=== PATIENT | female | born 1990 | race Caucasian/White ===

== ENCOUNTER 2018-07-13 14:02 | Outpatient (CLI) | payer MEDICAID, SELFPAY ==
[2018-07-13 15:44] LABS: Iron 66 ug/dL (50-175)
[2018-07-13 15:55] LABS: ALT 20 U/L (12-78); AST 21 U/L (15-37); Albumin 3.8 g/dL (3.4-5.0); Alkaline Phosphatase 79 U/L (46-116); Anion Gap 8.9 mmol/L (3-11); BUN 11 mg/dL (7-18); Bilirubin, Total 0.3 mg/dL (0.2-1.0); CO2 26.1 mmol/L (21.0-32.0); CREATININE 0.87 mg/dL (0.55-1.02); Calcium 8.8 mg/dL (8.5-10.1); Chloride 103 mmol/L (98-107); Ferritin 62 ng/mL (8-388); Glucose 86 mg/dL (70-100); Potassium 4.8 mmol/L (3.5-5.1); Sodium 138 mmol/L (136-145); TSH 2.48 uIU/mL (0.358-3.74); Total Protein 7.5 g/dL (6.4-8.2)
== END 2018-07-13 14:22 ==
PROVIDERS: PCP Family Medicine; Visit Provider Nurse Practitioner Family
DX: R53.83 Other fatigue (principal); I38 Endocarditis, valve unspecified; Z86.19 Personal history of other infectious and parasitic diseases
CPT/HCPCS: 36415; 80053; 86709; 87340; 87389; 82728; 83540; 84443; 85025; 86431; 86592; 87522

== ENCOUNTER 2018-10-23 01:58 | Emergency (ER) | payer MEDICAID, SELFPAY ==
--- NOTE | 2018-10-23 02:08 | DI.CT_ITS ---
SYMPTOM/DIAGNOSIS: VOMITING, GENERALIZED ABD PAIN ABDOMEN AND PELVIC CT: CT scan of the abdomen and pelvis was performed following the uneventful administration of intravenous contrast material. Findings: There is patient motion artifact which does degrade image quality. The visualized lung bases show no acute abnormality. The liver is normal in size. No suspicious hepatic mass is seen. The portal, superior mesenteric and splenic veins are patent. The gallbladder is negative by CT criteria. There is no biliary ductal dilatation. The pancreas, spleen and adrenal glands are unremarkable. The kidneys show normal and symmetric enhancement. Note is made of a small cyst on the left kidney. No obstruction is seen. The urinary bladder is intact. The reproductive organs are grossly unremarkable. The bowel shows no evidence of obstruction or inflammation. No findings to suggest an acute appendicitis are present. The aorta is of normal caliber. Incidental note is made of a retro-aortic left renal vein. No significant abdominal or pelvic adenopathy, ascites or pneumoperitoneum is seen. Note is made of a small fat containing umbilical hernia. The bones show normal alignment. IMPRESSION: No evidence of an acute abdomen.
--- NOTE | 2018-10-23 02:11 | W.ED.GENAD ---
Discharge Plan Disposition Patient Disposition: HOME Condition: Good Discharge Details Chief Complaint: Abd Prob Clinical Impression: Gastroenteritis, Nausea & vomiting, Abdominal pain Reason For Visit: ANA Primary Care Provider: Tegan Carballo ED Provider: Arie Verduzco Home Meds and New Rx's Prescriptions: New ondansetron HCl [Zofran] 4 mg tablet 4 mg PO TID PRN (Reason: nausea and vomiting) 5 Days Qty: 10 RF: 0 No Action polyethylene glycol 3350 17 GM powder in packet 17 gm PO DAILY PRN PRN (Reason: Constipation) RF: 0 methadone 10 MG/ML concentrate 95 mg PO DAILY RF: 0 acetaminophen [Tylenol] 325 MG tablet 650 mg PO Q6H PRNQty: 100 RF: 0 ascorbic acid (vitamin C) [Vitamin C] 500 MG tablet 500 mg PO BID Qty: 60 RF: 0 tramadol 50 MG tablet 50 mg PO Q8H PRN PRNQty: 60 RF: 0 ibuprofen 400 MG tablet 400 mg PO Q6H PRN PRNQty: 90 RF: 0 gabapentin 300 MG capsule 300 mg PO Q8H Qty: 90 RF: 0 vgvzdsus-nsp-syht fum-folic ac 1 EACH tablet 1 ea PO DAILY Qty: 30 RF: 5 penicillin V potassium 500 MG tablet 500 mg PO Q6H Qty: 120 RF: 3 Lactobacillus acidophilus 1 EACH capsule 1 ea PO DAILY Qty: 30 RF: 5 Discharge Instructions Instructions: Acute Nausea and Vomiting (ED), Abdominal Pain (ED) Additional Instructions: Please take the Zofran as directed. Please stick with a liquid diet for the next 48 hours. If you notice any worsening of your symptoms, or any new symptoms such as vomiting, diarrhea, fever, chills, shortness of breath, chest pain, numbness, weakness, or fainting , please return immediately to the emergency department for reevaluation. Please follow up with your primary care provider as soon as possible for reassessment and reevaluation. As always, it was a pleasure participating in your medical care today. Referrals: Tegan Carballo MD [Primary Care Provider] - Discharge Data Discharge Date/Time-TO BE ENTERED AT DEPARTURE: 10/23/18 04:27 Medical Decision Making This is a pleasant 28-year-old female with past medical history of IV drug use, methadone use, endocarditis, and subsequent heart valve replacement, who presents today for evaluation of sudden onset nausea, vomiting and generalized abdominal pain started a few hours ago. She denies any hematemesis or diarrhea. She denies any fever. Physical exam demonstrates an obese but relatively unremarkable abdomen with mild tenderness throughout. No focal tenderness. She denies any surgical history of the abdomen. Due to the nature of her complaints, and her repetitive vomiting we will get a CT scan to rule out acute appendicitis or other acute abdominal pathology including obstruction, however differential seems to be highest for gastroenteritis most likely secondary to a viral etiology. We will rehydrate the patient, control her nausea, and reassess. 4:[address] scan has returned and shows no acute process. Abdomen continues to appear nonsurgical with no guarding or rebound. Laboratory workup is returned showing no significant abnormalities, severely elevated white count white count, bandemia. She demonstrates normal electrolytes normal renal function. Urinalysis is negative for any signs of signal infection. CT scan per virtual radiology shows no evidence of appendicitis or other acute abdominal pathology. Patient's vomiting is been notably improved, she has been rehydrated with 2 L normal saline, and at this time is stating just let me go home and sleep, want to go home, I do not want to stay here. With no signs of an acute surgical abdomen, reassuring vital signs, clinical presentation inconsistent with any acute catastrophic abdominal etiology I feel that she can be discharged home the importance of close follow-up. Patient will be given Zofran for home use, and instructed to maintain a liquid diet for the next 48 hours. I have extensively reviewed the treatment plan and discharge instructions with the patient and their family. I have addressed all patient concerns at this time. The patient and family was made aware of what symptoms to monitor for that would warrant a return to the emergency department. Discussed the plan with the patient and family, they demonstrate verbal understanding and agreement with our assessment and plan at this time. EKG 2: 16 Rate 82, [place] 242 first degree AV block, QTC of 455, QRS of 102, nonspecific T wave abnormalities with an inverted T wave in lead III, no significant Q waves except for small Q wave in lead III and aVF. No ST elevations or depressions, no significant changes from prior EKG on 12/06/17. FINDINGS: Lower thorax: No acute findings. ABDOMEN: Liver: Normal. No mass. Gallbladder and bile ducts: Normal. No calcified stones. No ductal dilation. Pancreas: Normal. No ductal dilation. Spleen: Normal. No splenomegaly. Adrenals: Normal. No mass. Kidneys and ureters: Normal. No hydronephrosis. Stomach and bowel: Normal. No obstruction. No mucosal thickening. Appendix: No evidence of appendicitis. PELVIS: Bladder: Unremarkable as visualized. Reproductive: Unremarkable as visualized. ABDOMEN and PELVIS: Intraperitoneal space: Normal. No free air. No significant fluid collection. Bones/joints: No acute fracture. No dislocation. Soft tissues: Fat-containing umbilical hernia. Vasculature: Normal. No abdominal aortic aneurysm. Lymph nodes: Normal. No enlarged lymph nodes. IMPRESSION: No acute finding. Thank you for allowing us to participate in the care of your patient. Dictated and Authenticated by: Gil Strauss MD [facility] General Date/Time Provider Initiated Documentation: 10/23/18 02:08. [facility] Narrative: This is a 28-year-old female with a past medical history of IV drug use, methadone use, infective endocarditis with cardiac valve repair r not on blood thinners, who presents today for evaluation of abdominal pain and vomiting. The patient states that this evening she began to have sudden onset sharp generalized abdominal pain with subsequent vomiting. She states that she has vomited multiple times since then. Vomitus is stomach contents and acid nonbilious, no hematemesis. She denies any diarrhea but does admit to mild constipation. She denies any radiation of her pain to any other locations, she denies any chest pain or shortness of breath. She denies any other sick contacts or eating anything new. Patient denies any previous abdominal surgeries. She has no other complaints or modifying factors at this time. Related Data Home Medications Medication Instructions Recorded Confirmed methadone 95 mg PO DAILY ml 12/07/17 12/30/17 polyethylene glycol 3350 17 gm PO DAILY PRN PRN packet 12/07/17 12/30/17 Lactobacillus acidophilus 1 ea PO DAILY #30 capsule 01/29/18 acetaminophen [Tylenol] 650 mg PO Q6H PRN #100 tab 01/29/18 ascorbic acid (vitamin C) [Vitamin 500 mg PO BID #60 tab 01/29/18 C] gabapentin 300 mg PO Q8H #90 cap 01/29/18 ibuprofen 400 mg PO Q6H PRN PRN #90 tab 01/29/18 wptsgvfa-hus-xnbe fum-folic ac 1 ea PO DAILY #30 tablet 01/29/18 penicillin V potassium 500 mg PO Q6H #120 tablet 01/29/18 tramadol 50 mg PO Q8H PRN PRN #60 tab 01/29/18 ondansetron HCl [Zofran] 4 mg PO TID PRN 5 Days #10 tab 10/23/18 Previous Rx's Medication Instructions Recorded methadone 95 mg PO DAILY ml 12/07/17 polyethylene glycol 3350 17 gm PO DAILY PRN PRN packet 12/07/17 Lactobacillus acidophilus 1 ea PO DAILY #30 capsule 01/29/18 acetaminophen [Tylenol] 650 mg PO Q6H PRN #100 tab 01/29/18 ascorbic acid (vitamin C) [Vitamin 500 mg PO BID #60 tab 01/29/18 C] gabapentin 300 mg PO Q8H #90 cap 01/29/18 ibuprofen 400 mg PO Q6H PRN PRN #90 tab 01/29/18 vmavqmek-zyn-wnnt fum-folic ac 1 ea PO DAILY #30 tablet 01/29/18 penicillin V potassium 500 mg PO Q6H #120 tablet 01/29/18 tramadol 50 mg PO Q8H PRN PRN #60 tab 01/29/18 ondansetron HCl [Zofran] 4 mg PO TID PRN 5 Days #10 tab 10/23/18 Allergies Allergy/AdvReac Type Severity Reaction Status Date / Time No Known Allergies Allergy Unverified 10/23/18 02:58 Review of Systems Review of Systems All systems reviewed & are unremarkable except as noted in HPI and below PFSH Social History Smoking and Tabacco status: Current every day Exam Narrative Exam Narrative: 1.Const: Well-nourished, Well-developed, appearing stated age 2.Eyes: PERRL, no conjunctival injection, and symmetrical lids. 3.ENT: Atraumatic external nose and ears. Dry MM. Neck: Symmetric, trachea midline, No thyromegaly. 4.CVS: +S1/S2, No murmurs or gallops. Peripheral pulses 2+ and equal in all extremities. Brisk capillary refill in all extremities. Well-healing central chest scar secondary to open heart surgery 5.RESP: Unlabored respiratory effort. Clear to auscultation bilaterally. No wheezes rales or rhonchi 6.GI: Soft,Nondistended, No hepatosplenomegaly. No guarding or rebound. Generalized mild abdominal tenderness throughout with no focality. No flank or CVA tenderness. Bowel sounds are present. Obese. 7.MSK: Normocephalic/Atraumatic, Extremities w/o deformity or ttp No cyanosis or clubbing, Normal movement of all extremities 8.Skin: Warm, Dry. No rashes or lesions. 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 Sensation grossly intact, no focal neurologic deficits. 10.Psych: (AAO) x3. Appropriate mood and affect
--- NOTE | 2018-10-23 02:16 | ED.GENADUL_ITS ---
Discharge Plan Disposition Patient Disposition: HOME Condition: Good Discharge Details Chief Complaint: Abd Prob Clinical Impression: Gastroenteritis, Nausea & vomiting, Abdominal pain Reason For Visit: ANA Primary Care Provider: Tegan Carballo ED Provider: Arie Verduzco Home Meds and New Rx's Prescriptions: New ondansetron HCl [Zofran] 4 mg tablet 4 mg PO TID PRN (Reason: nausea and vomiting) 5 Days Qty: 10 RF: 0 No Action polyethylene glycol 3350 17 GM powder in packet 17 gm PO DAILY PRN PRN (Reason: Constipation) RF: 0 methadone 10 MG/ML concentrate 95 mg PO DAILY RF: 0 acetaminophen [Tylenol] 325 MG tablet 650 mg PO Q6H PRNQty: 100 RF: 0 ascorbic acid (vitamin C) [Vitamin C] 500 MG tablet 500 mg PO BID Qty: 60 RF: 0 tramadol 50 MG tablet 50 mg PO Q8H PRN PRNQty: 60 RF: 0 ibuprofen 400 MG tablet 400 mg PO Q6H PRN PRNQty: 90 RF: 0 gabapentin 300 MG capsule 300 mg PO Q8H Qty: 90 RF: 0 jrkpgzaq-fwt-zypm fum-folic ac 1 EACH tablet 1 ea PO DAILY Qty: 30 RF: 5 penicillin V potassium 500 MG tablet 500 mg PO Q6H Qty: 120 RF: 3 Lactobacillus acidophilus 1 EACH capsule 1 ea PO DAILY Qty: 30 RF: 5 Discharge Instructions Instructions: Acute Nausea and Vomiting (ED), Abdominal Pain (ED) Additional Instructions: Please take the Zofran as directed. Please stick with a liquid diet for the next 48 hours. If you notice any worsening of your symptoms, or any new symptoms such as vomiting, diarrhea, fever, chills, shortness of breath, chest pain, numbness, weakness, or fainting , please return immediately to the emergency department for reevaluation. Please follow up with your primary care provider as soon as possible for reassessment and reevaluation. As always, it was a pleasure participating in your medical care today. Referrals: Tegan Carballo MD [Primary Care Provider] - Discharge Data Discharge Date/Time-TO BE ENTERED AT DEPARTURE: 10/23/18 04:27 Medical Decision Making This is a pleasant 28-year-old female with past medical history of IV drug use, methadone use, endocarditis, and subsequent heart valve replacement, who presents today for evaluation of sudden onset nausea, vomiting and generalized abdominal pain started a few hours ago. She denies any hematemesis or diarrhea. She denies any fever. Physical exam demonstrates an obese but relatively unremarkable abdomen with mild tenderness throughout. No focal tenderness. She denies any surgical history of the abdomen. Due to the nature of her complaints, and her repetitive vomiting we will get a CT scan to rule out acute appendicitis or other acute abdominal pathology including obstruction, however differential seems to be highest for gastroenteritis most likely secondary to a viral etiology. We will rehydrate the patient, control her nausea, and reassess. 4:[address] scan has returned and shows no acute process. Abdomen continues to appear nonsurgical with no guarding or rebound. Laboratory workup is returned showing no significant abnormalities, severely elevated white count white count, bandemia. She demonstrates normal electrolytes normal renal function. Urinalysis is negative for any signs of signal infection. CT scan per virtual radiology shows no evidence of appendicitis or other acute abdominal pathology. Patient's vomiting is been notably improved, she has been rehydrated with 2 L normal saline, and at this time is stating just let me go home and sleep, want to go home, I do not want to stay here. With no signs of an acute surgical abdomen, reassuring vital signs, clinical presentation inconsistent with any acute catastrophic abdominal etiology I feel that she can be discharged home the importance of close follow-up. Patient will be given Zofran for home use, and instructed to maintain a liquid diet for the next 48 hours. I have extensively reviewed the treatment plan and discharge instructions with the patient and their family. I have addressed all patient concerns at this time. The patient and family was made aware of what symptoms to monitor for that would warrant a return to the emergency department. Discussed the plan with the patient and family, they demonstrate verbal understanding and agreement with our assessment and plan at this time. EKG 2: 16 Rate 82, [place] 242 first degree AV block, QTC of 455, QRS of 102, nonspecific T wave abnormalities with an inverted T wave in lead III, no significant Q waves except for small Q wave in lead III and aVF. No ST elevations or depressions, no significant changes from prior EKG on 12/06/17. FINDINGS: Lower thorax: No acute findings. ABDOMEN: Liver: Normal. No mass. Gallbladder and bile ducts: Normal. No calcified stones. No ductal dilation. Pancreas: Normal. No ductal dilation. Spleen: Normal. No splenomegaly. Adrenals: Normal. No mass. Kidneys and ureters: Normal. No hydronephrosis. Stomach and bowel: Normal. No obstruction. No mucosal thickening. Appendix: No evidence of appendicitis. PELVIS: Bladder: Unremarkable as visualized. Reproductive: Unremarkable as visualized. ABDOMEN and PELVIS: Intraperitoneal space: Normal. No free air. No significant fluid collection. Bones/joints: No acute fracture. No dislocation. Soft tissues: Fat-containing umbilical hernia. Vasculature: Normal. No abdominal aortic aneurysm. Lymph nodes: Normal. No enlarged lymph nodes. IMPRESSION: No acute finding. Thank you for allowing us to participate in the care of your patient. Dictated and Authenticated by: Gil Strauss MD [facility] General Date/Time Provider Initiated Documentation: 10/23/18 02:08 . [facility] Narrative: This is a 28-year-old female with a past medical history of IV drug use, methadone use, infective endocarditis with cardiac valve repair r not on blood thinners, who presents today for evaluation of abdominal pain and vomiting. The patient states that this evening she began to have sudden onset sharp generalized abdominal pain with subsequent vomiting. She states that she has vomited multiple times since then. Vomitus is stomach contents and acid nonbilious, no hematemesis. She denies any diarrhea but does admit to mild constipation. She denies any radiation of her pain to any other locations, she denies any chest pain or shortness of breath. She denies any other sick contacts or eating anything new. Patient denies any previous abdominal surgeries. She has no other complaints or modifying factors at this time. Related Data Home Medications Medication Instructions Recorded Confirmed methadone 95 mg PO DAILY ml 12/07/17 12/30/17 polyethylene glycol 3350 17 gm PO DAILY PRN PRN packet 12/07/17 12/30/17 Lactobacillus acidophilus 1 ea PO DAILY #30 capsule 01/29/18 acetaminophen [Tylenol] 650 mg PO Q6H PRN #100 tab 01/29/18 ascorbic acid (vitamin C) [Vitamin 500 mg PO BID #60 tab 01/29/18 C] gabapentin 300 mg PO Q8H #90 cap 01/29/18 ibuprofen 400 mg PO Q6H PRN PRN #90 tab 01/29/18 ewmhgqhw-pjb-auan fum-folic ac 1 ea PO DAILY #30 tablet 01/29/18 penicillin V potassium 500 mg PO Q6H #120 tablet 01/29/18 tramadol 50 mg PO Q8H PRN PRN #60 tab 01/29/18 ondansetron HCl [Zofran] 4 mg PO TID PRN 5 Days #10 tab 10/23/18 Previous Rx's Medication Instructions Recorded methadone 95 mg PO DAILY ml 12/07/17 polyethylene glycol 3350 17 gm PO DAILY PRN PRN packet 12/07/17 Lactobacillus acidophilus 1 ea PO DAILY #30 capsule 01/29/18 acetaminophen [Tylenol] 650 mg PO Q6H PRN #100 tab 01/29/18 ascorbic acid (vitamin C) [Vitamin 500 mg PO BID #60 tab 01/29/18 C] gabapentin 300 mg PO Q8H #90 cap 01/29/18 ibuprofen 400 mg PO Q6H PRN PRN #90 tab 01/29/18 vizzfsqa-bdc-ejiy fum-folic ac 1 ea PO DAILY #30 tablet 01/29/18 penicillin V potassium 500 mg PO Q6H #120 tablet 01/29/18 tramadol 50 mg PO Q8H PRN PRN #60 tab 01/29/18 ondansetron HCl [Zofran] 4 mg PO TID PRN 5 Days #10 tab 10/23/18 Allergies Allergy/AdvReac Type Severity Reaction Status Date / Time No Known Allergies Allergy Unverified 10/23/18 02:58 Review of Systems Review of Systems All systems reviewed & are unremarkable except as noted in HPI and below PFSH Social History Smoking and Tabacco status: Current every day Exam Narrative Exam Narrative: 1.Const: Well-nourished, Well-developed, appearing stated age 2.Eyes: PERRL, no conjunctival injection, and symmetrical lids. 3.ENT: Atraumatic external nose and ears. Dry MM. Neck: Symmetric, trachea midline, No thyromegaly. 4.CVS: +S1/S2, No murmurs or gallops. Peripheral pulses 2+ and equal in all extremities. Brisk capillary refill in all extremities. Well-healing central chest scar secondary to open heart surgery 5.RESP: Unlabored respiratory effort. Clear to auscultation bilaterally. No wheezes rales or rhonchi 6.GI: Soft,Nondistended, No hepatosplenomegaly. No guarding or rebound. Gene ralized mild abdominal tenderness throughout with no focality. No flank or CVA tenderness. Bowel sounds are present. Obese. 7.MSK: Normocephalic/Atraumatic, Extremities w/o deformity or ttp No cyanosis or clubbing, Normal movement of all extremities 8.Skin: Warm, Dry. No rashes or lesions. 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 Sensation grossly intact, no focal neurologic deficits. 10.Psych: (AAO) x3. Appropriate mood and affect
[2018-10-23 02:19] VITALS: BP 149/77; PULSE 91; RESP 24; TEMP 36.9; O2SAT 98
[2018-10-23 02:29] LABS: Abs Immature Grans 0.03 k/cumm (0.0-0.09); Absolute Basophil Count 0.03 k/cumm (0.0-0.2); Absolute Eosinophil Count 0.07 k/cumm (0.0-0.7); Absolute Monocyte Count 0.47 k/cumm (0.11-0.7); Absolute Neutrophil Count 9.37 k/cumm (1.2-6.7); Basophils % 0.3; Eosinophils % 0.6; HCT 43.2 % (36.0-46.0); HGB 14.1 g/dL (12.0-15.5); Immature Grans % 0.3; Lymphocytes % 14.3; Mean Corp. HGB Concentration 32.6 g/dL (32.0-36.0); Mean Corpuscular Hemoglobin 28.3 pg (27.0-33.0); Mean Corpuscular Volume 86.7 fL (80-95); Mean Platelet Volume 10.5 fL (8.0-11.0); Neutrophils % 80.5; Platelet Count 294 x1000/uL (130-400); RBC 4.98 m/cumm (4.00-5.20); RBC Distribution Width 14.2 % (11.7-14.6); White Blood Cell Count 11.64 k/cumm (4.4-10.8)
[2018-10-23] MEDS: Normal Saline 1,000 ML 1000 ML IV (02:30)
[2018-10-23 02:32] LABS: Absolute Lymphocyte Count 1.66 k/cumm (1.2-3.4)
[2018-10-23 02:42] LABS: ALT 19 U/L (12-78); AST 29 U/L (15-37); Alkaline Phosphatase 84 U/L (46-116); Anion Gap 13.4 mmol/L (3-11); BUN 11 mg/dL (7-18); Bilirubin, Total 0.4 mg/dL (0.2-1.0); CO2 22.6 mmol/L (21.0-32.0); CREATININE 1.06 mg/dL (0.55-1.02); Chloride 101 mmol/L (98-107); Glucose 175 mg/dL (70-100); Lipase 104 U/L (73-393); Potassium 4.8 mmol/L (3.5-5.1); Sodium 137 mmol/L (136-145); Total Protein 8.8 g/dL (6.4-8.2)
[2018-10-23 02:47] LABS: Calcium 9.4 mg/dL (8.5-10.1)
[2018-10-23] MEDS: Dicyclomine 20 MG TAB PO (02:56)
[2018-10-23] MEDS: Ondansetron 4 MG/2 ML VIAL IVP ×2 (02:57→04:29)
--- NOTE | 2018-10-23 02:58 | NUR.NOTE ---
Nursing Note: Unable to obtain as pt is non participatory with medical care overall and does not answer questions about medications. EMS offers that she stopped taking her meds for endocarditis last week
[2018-10-23 03:06] LABS: Bilirubin Negative (Negative); Blood Negative (Negative); Clarity Cloudy; Glucose Negative (Negative); Ketones 15 mg/dL (Negative); Leukocyte Esterase Negative (Negative); Nitrite Negative (Negative); Specific Gravity 1.015 (1.005-1.025); Urobilinogen 0.2 EU/dL (Up TO 0.2); pH >= 9.0 (5-8)
[2018-10-23 03:13] LABS: Bacteria Few HPF (Negative); C & S Indicated? No; Casts Negative LPF (Negative); Crystals Many Amorphous HPF (Negative); Epithelial Cells Many HPF (Negative); Mucus Negative (Negative)
[2018-10-23] MEDS: Omnipaque 350 MG/ML 100 ML BTL IJ (03:27)
[2018-10-23] MEDS: Ketorolac 30 MG/ML VIAL IVP (03:33)
--- NOTE | 2018-10-23 04:01 | DI.VRAD_ITS ---
EXAM: CT Abdomen and Pelvis With Contrast EXAM DATE/TIME: 10/23/2018 2:10 AM CLINICAL HISTORY: 28 years old, female; Pain; Abdominal pain; Generalized; Patient HX: Vomiting, generalized abdominal pain TECHNIQUE: Axial computed tomography images of the abdomen and pelvis with intravenous contrast. Coronal and sagittal reformatted images were created and reviewed. COMPARISON: CT RENAL COLIC WO CONTRAST 12/25/2013 4:05 PM FINDINGS: Lower thorax: No acute findings. ABDOMEN: Liver: Normal. No mass. Gallbladder and bile ducts: Normal. No calcified stones. No ductal dilation. Pancreas: Normal. No ductal dilation. Spleen: Normal. No splenomegaly. Adrenals: Normal. No mass. Kidneys and ureters: Normal. No hydronephrosis. Stomach and bowel: Normal. No obstruction. No mucosal thickening. Appendix: No evidence of appendicitis. PELVIS: Bladder: Unremarkable as visualized. Reproductive: Unremarkable as visualized. ABDOMEN and PELVIS: Intraperitoneal space: Normal. No free air. No significant fluid collection. Bones/joints: No acute fracture. No dislocation. Soft tissues: Fat-containing umbilical hernia. Vasculature: Normal. No abdominal aortic aneurysm. Lymph nodes: Normal. No enlarged lymph nodes. IMPRESSION: No acute finding. Dictated and Authenticated by: Gil Strauss MD. Ordering:GRICEL Sargent MD
[2018-10-23 04:26] VITALS: BP 136/69; PULSE 79; RESP 16; O2SAT 98
[2018-10-23] MEDS: Normal Saline 50 ML (04:29)
[2018-10-23] MEDS: Metoclopramide 10 MG/2 ML VIAL IVP (04:29)
[2018-10-23] MEDS: Ondansetron O.D.T. 4 MG TABEF PO (04:31)
--- NOTE | 2018-10-23 04:32 | NUR.NOTE ---
taking sips po and tolerating well.Nursing Note:
[2018-10-23 04:52] VITALS: BP 136/69; PULSE 79; RESP 16; TEMP 36.1; O2SAT 98
== END 2018-10-23 04:54 | disposition home or self-care (01) ==
PROVIDERS: Emergency Provider Student in an Organized Health Care Education/Training Program; PCP Family Medicine
DX: K52.9 Noninfective gastroenteritis and colitis, unspecified (principal); R11.2 Nausea with vomiting, unspecified; R10.84 Generalized abdominal pain; I38 Endocarditis, valve unspecified; Z95.2 Presence of prosthetic heart valve
CPT/HCPCS: 36415; 80053; 81025; 83690; 93005; 96361; 96374; 96375; 96376; 99285; 74177; 81003; 81015; 85025; 93010; J1885; J2405; J2765; J3490

== ENCOUNTER 2018-11-22 04:13 | Emergency (ER) | payer MEDICAID, SELFPAY ==
--- NOTE | 2018-11-22 04:16 | W.ED.GENAD ---
Discharge Plan Disposition Patient Disposition: HOME Condition: Stable Discharge Details Chief Complaint: Nausea/Vomit/Diar Clinical Impression: Cannabinoid hyperemesis syndrome Primary Care Provider: Tegan Carballo ED Provider: Gil Haro Home Meds and New Rx's Prescriptions: New promethazine 25 mg tablet 25 mg PO Q6H PRN (Reason: nausea and vomiting) Qty: 20 RF: 0 No Action methadone 10 MG/ML concentrate 95 mg PO DAILY RF: 0 Discharge Instructions Instructions: Acute Nausea and Vomiting (ED) Additional Instructions: Your symptoms are likely being caused by the frequent use of marijuana. Trying to cut down on your marijuana use will prevent this follow up with your primary care provider if symptoms continue in a week if you feel you are becoming more ill, have severe abdominal pain or persistent vomit despite medications return to the emergency department Medical Decision Making 28 yo female with hx of daily marijuana use, prior hx of IVDU on methadone and denies recent ivdu or missed methadone use, who comes in with chief complaint of n/v this morning. She had a similar episode in October per pt and at that time her imaging and labs showed no acute findings. She denies abdominal pain, fevers, chills, chest pain or sob .She has no abdominal distention or tenderness on exam to suggest sbo or other surgiacl pathology. given lack of any chest pain or sob do not feel w/u for acs indicated. I suspect cannabinoid hyperemesis, will eval for electrolyte abnormalities, tx symptoms and monitor pt's labs show anion gap of 16 that I suspect is from dehydration, otherwise no signfiicant pathology on labs. She is feeling better at this time and still has no abdominal tenderness. Will obtain repeat metabolic panel after fluids repeat anion gap is normal, she is tolerating PO, will d/c home and return precautions given Differential Diagnosis cyclic vomit, cannabinoid hyperemesis, pancreatitis HPI General Mode of arrival: ambulatory. Date/Time Provider Initiated Documentation: 11/22/18 04:14. Limitations to Documentation: no limitations. Information obtained by: patient. History of Present Illness 28 year old F presents to the emergency department with the chief complaint of nausea and vomit, described as moderate, Patient started experiencing this hour(s) (3) and it has been constant. No relieving factors improve symptom(s), No exacerbating factors reported . Patient notes no other symptoms.. Patient did receive the following treatments prior to arrival, none Related Data Home Medications Medication Instructions Recorded Confirmed methadone 95 mg PO DAILY ml 12/07/17 12/30/17 promethazine 25 mg PO Q6H PRN #20 tab 11/22/18 Previous Rx's Medication Instructions Recorded methadone 95 mg PO DAILY ml 12/07/17 promethazine 25 mg PO Q6H PRN #20 tab 11/22/18 Allergies Allergy/AdvReac Type Severity Reaction Status Date / Time No Known Allergies Allergy Unverified 10/23/18 02:58 General PATRICIA: 3 Review of Systems Review of Systems All systems reviewed & are unremarkable except as noted in HPI and below Constitutional Denies chills, Denies fever(s) and Denies weakness Cardiovascular Denies chest pain and Denies dyspnea Respiratory Denies cough and Denies dyspnea Gastrointestinal Denies abdominal pain Genitourinary Denies dysuria Musculoskeletal Denies joint swelling Integumentary/Breasts Denies rash Neurologic Denies weakness [facility] Medical History Endocarditis (Acute) Hepatitis C (Chronic) Surgical History History of heart valve replacement (Chronic) Social History Smoking/Tobacco Use Status: Current-Occasional Drug use: Current Sobriety Substance use type: former substance user and marijuana Do you feel safe in your relationship?: Yes Exam Const General: no acute distress Orientation: alert HENMT Head: normal to inspection Ears: external ears normal General nose exam: external nose normal Mouth: moist mucous membranes Eyes General: appearance normal, both eyes and all related structures Neck Neck: normal visual inspection Resp Effort & Inspection: normal respiratory effort and able to speak in complete sentences Cardio Rate: regular rate Skin General skin exam: no rashes or lesions noted Neuro General: alert and oriented x3 Extrem General: normal to inspection Psych Mental Status: mental status grossly normal
[2018-11-22 04:20] VITALS: BP 138/78; PULSE 78; RESP 16; TEMP 36.2; O2SAT 100
[2018-11-22] MEDS: Normal Saline 1,000 ML 1000 ML IV (04:32)
[2018-11-22] MEDS: Ondansetron 4 MG/2 ML VIAL IVP (04:32)
[2018-11-22 04:37] LABS: Abs Immature Grans 0.04 k/cumm (0.0-0.09); Absolute Basophil Count 0.02 k/cumm (0.0-0.2); Absolute Eosinophil Count 0.04 k/cumm (0.0-0.7); Absolute Lymphocyte Count 1.72 k/cumm (1.2-3.4); Absolute Monocyte Count 0.36 k/cumm (0.11-0.7); Absolute Neutrophil Count 8.04 k/cumm (1.2-6.7); Basophils % 0.2; Eosinophils % 0.4; HGB 13.8 g/dL (12.0-15.5); Immature Grans % 0.4; Lymphocytes % 16.8; Mean Corp. HGB Concentration 33.7 g/dL (32.0-36.0); Mean Corpuscular Hemoglobin 28.9 pg (27.0-33.0); Mean Corpuscular Volume 85.8 fL (80-95); Mean Platelet Volume 10.8 fL (8.0-11.0); Monocytes % 3.5; Neutrophils % 78.7; Platelet Count 306 x1000/uL (130-400); RBC 4.78 m/cumm (4.00-5.20); RBC Distribution Width 14.5 % (11.7-14.6); White Blood Cell Count 10.22 k/cumm (4.4-10.8)
[2018-11-22] MEDS: LORazepam 2 MG/ML VIAL 1 MG IVP (04:40)
--- NOTE | 2018-11-22 04:47 | ED.GENADUL_ITS ---
Discharge Plan Disposition Patient Disposition: HOME Condition: Stable Discharge Details Chief Complaint: Nausea/Vomit/Diar Clinical Impression: Cannabinoid hyperemesis syndrome Primary Care Provider: Tegan Carballo ED Provider: Gil Haro Home Meds and New Rx's Prescriptions: New promethazine 25 mg tablet 25 mg PO Q6H PRN (Reason: nausea and vomiting) Qty: 20 RF: 0 No Action methadone 10 MG/ML concentrate 95 mg PO DAILY RF: 0 Discharge Instructions Instructions: Acute Nausea and Vomiting (ED) Additional Instructions: Your symptoms are likely being caused by the frequent use of marijuana. Trying to cut down on your marijuana use will prevent this follow up with your primary care provider if symptoms continue in a week if you feel you are becoming more ill, have severe abdominal pain or persistent vomit despite medications return to the emergency department Medical Decision Making 28 yo female with hx of daily marijuana use, prior hx of IVDU on methadone and denies recent ivdu or missed methadone use, who comes in with chief complaint of n/v this morning. She had a similar episode in October per pt and at that time her imaging and labs showed no acute findings. She denies abdominal pain, fevers, chills, chest pain or sob .She has no abdominal distention or tenderness on exam to suggest sbo or other surgiacl pathology. given lack of any chest pain or sob do not feel w/u for acs indicated. I suspect cannabinoid hyperemesis, will eval for electrolyte abnormalities, tx symptoms and monitor pt's labs show anion gap of 16 that I suspect is from dehydration, otherwise no signfiicant pathology on labs. She is feeling better at this time and still has no abdominal tenderness. Will obtain repeat metabolic panel after fluids repeat anion gap is normal, she is tolerating PO, will d/c home and return precautions given Differential Diagnosis cyclic vomit, cannabinoid hyperemesis, pancreatitis HPI General Mode of arrival: ambulatory . Date/Time Provider Initiated Documentation: 11/22/18 04:14 . Limitations to Documentation: no limitations . Information obtained by: patient . History of Present Illness 28 year old F presents to the emergency department with the chief complaint of nausea and vomit, described as moderate, Patient started experiencing this hour(s) (3) and it has been constant. No relieving factors improve symptom(s), No exacerbating factors reported . Patient notes no other symptoms.. Patient did receive the following treatments prior to arrival, none Related Data Home Medications Medication Instructions Recorded Confirmed methadone 95 mg PO DAILY ml 12/07/17 12/30/17 promethazine 25 mg PO Q6H PRN #20 tab 11/22/18 Previous Rx's Medication Instructions Recorded methadone 95 mg PO DAILY ml 12/07/17 promethazine 25 mg PO Q6H PRN #20 tab 11/22/18 Allergies Allergy/AdvReac Type Severity Reaction Status Date / Time No Known Allergies Allergy Unverified 10/23/18 02:58 General PATRICIA: 3 Review of Systems Review of Systems All systems reviewed & are unremarkable except as noted in HPI and below Constitutional Denies chills, Denies fever(s) and Denies weakness Cardiovascular Denies chest pain and Denies dyspnea Respiratory Denies cough and Denies dyspnea Gastrointestinal Denies abdominal pain Genitourinary Denies dysuria Musculoskeletal Denies joint swelling Integumentary/Breasts Denies rash Neurologic Denies weakness [facility] Medical History Endocarditis (Acute) Hepatitis C (Chronic) Surgical History History of heart valve replacement (Chronic) Social History Smoking/Tobacco Use Status: Current-Occasional Drug use: Current Sobriety Substance use type: former substance user and marijuana Do you feel safe in your relationship?: Yes Exam Const General: no acute distress Orientation: alert HENMT Head: normal to inspection Ears: external ears normal General nose exam: external nose normal Mouth: moist mucous membranes Eyes General: appearance normal, both eyes and all related structures Neck Neck: normal visual inspection Resp Effort & Inspection: normal respiratory effort and able to speak in complete sentences Cardio Rate: regular rate Skin General skin exam: no rashes or lesions noted Neuro General: alert and oriented x3 Extrem General: normal to inspection Psych Mental Status: mental status grossly normal
[2018-11-22 04:51] LABS: ALT 14 U/L (12-78); AST 19 U/L (15-37); Alkaline Phosphatase 81 U/L (46-116); Anion Gap 16.7 mmol/L (3-11); BUN 10 mg/dL (7-18); Bilirubin, Direct 0.16 mg/dL (0.00-0.20); Bilirubin, Total 0.5 mg/dL (0.2-1.0); CO2 24.3 mmol/L (21.0-32.0); CREATININE 0.94 mg/dL (0.55-1.02); Calcium 9.3 mg/dL (8.5-10.1); Chloride 99 mmol/L (98-107); Glucose 170 mg/dL (70-100); Lipase 87 U/L (73-393); Magnesium 1.5 mg/dL (1.8-2.4); Potassium 3.7 mmol/L (3.5-5.1); Sodium 140 mmol/L (136-145); Total Protein 8.1 g/dL (6.4-8.2)
[2018-11-22 04:52] LABS: ETHANOL BLOOD < 3.0 mg/dL (<3); HCG Qual (Serum) Negative
[2018-11-22] MEDS: Lactated Ringers 1,000 ML 1000 ML IV (05:24)
[2018-11-22 06:35] LABS: Anion Gap 10.8 mmol/L (3-11); BUN 9 mg/dL (7-18); CO2 25.2 mmol/L (21.0-32.0); CREATININE 0.76 mg/dL (0.55-1.02); Calcium 7.7 mg/dL (8.5-10.1); Chloride 106 mmol/L (98-107); Glucose 129 mg/dL (70-100); Potassium 3.9 mmol/L (3.5-5.1); Sodium 142 mmol/L (136-145)
[2018-11-22 06:48] VITALS: BP 135/80; PULSE 82; RESP 16; O2SAT 99
[2018-11-22] MEDS: Ondansetron O.D.T. 4 MG TABEF PO (06:58)
== END 2018-11-22 07:00 | disposition home or self-care (01) ==
LOC: ER 06:47
PROVIDERS: Emergency Provider Emergency Medicine; PCP Family Medicine
DX: F12.188 Cannabis abuse with other cannabis-induced disorder (principal)
CPT/HCPCS: 36415; 80048; 80053; 80076; 83690; 96361; 96374; 96375; 99284; 80320; 83735; 84703; 85025; J2060; J2405

== ENCOUNTER 2019-01-05 07:57 | Emergency (ER) | payer MEDICAID, SELFPAY ==
[2019-01-05 08:01] VITALS: PULSE 81; RESP 16; TEMP 36; O2SAT 95
--- NOTE | 2019-01-05 08:07 | W.ED.GENAD ---
Discharge Plan Disposition Patient Disposition: HOME Condition: Fair Discharge Details Chief Complaint: Sorethroat Clinical Impression: URI (upper respiratory infection) Primary Care Provider: Linda Gunn ED Provider: Merary Foreman Home Meds and New Rx's Prescriptions: Continued hydroxyzine HCl 50 mg Tablet 50 mg PO BID PRNRF: 0 gabapentin 300 mg Capsule 300 mg PO TID RF: 0 methadone 10 MG/ML concentrate 105 mg PO DAILY RF: 0 Discharge Instructions Instructions: Upper Respiratory Infection (ED) Additional Instructions: Encourage hydration. Tylenol and ibuprofen as needed for discomfort. Please follow-up with your primary care within the next week to discuss current symptoms as well as her chronic elements. If you develop chest pain, inability to stay hydrated, shortness of breath fever/chills or other new/worsening symptoms please seek care urgently once again. Referrals: Linda Gunn [Primary Care Provider] - Medical Decision Making Patient is a 28 year old female presenting today with c/c of mild sore throat that began yesterday. Noted white exudate on the left side. Patient s/p tonsillectomy. Reports that she had URI with cough, congestion, and ear popping over the past 2 weeks which is now resolving. She is concerned as she had endocarditis one year ago with valve replacement. 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 She denies any drug use since. No fevers/chills. No CP. Reports chronic SOB with exertion since her surgery last year, was advised cardiac rehab which she did not attend. No recent change in this. Also endorses chronic nausea. Has been seen here x 2 for this, was suspected to be associated with nursing home marijuana usage which patient has continued with. No recent change in this, no abdominal pain, no vomiting recently. On exam, she has mild erythema with white exudate. She appears nontoxic. No murmur, rub, gallops. Lungs clear. Abdomen soft and nontender. Rapid strep negative. Discussed findings with the patient. Advised this is likely viral. Encouraged hydration. She was given strict return precautions. Advised that she need to f/u with her PCP for her many chronic ailments, she will call today to schedule appointment within the next week. All questions adn concerns were addressed, she is in agreement with this plan. HPI General Mode of arrival: ambulatory. Date/Time Provider Initiated Documentation: 01/05/19 08:07. Limitations to Documentation: no limitations. Information obtained by: patient and RN notes reviewed. History of Present Illness 28 year old F presents to the emergency department with the chief complaint of white patches on throat, described as mild, Quality is described as aching, and is localized to the mouth. Patient reports no radiation. Patient started experiencing this day(s) (1) and it has been constant. No relieving factors improve symptom(s), No exacerbating factors reported . Patient notes cough (reports improving), nausea/vomiting (endorses chronic nausea) and shortness of breath (reports chronic since endocarditis last year, no recent change); denies confusion, chest pain, diaphoresis, fever/chills, loss of appetite, malaise, rash, syncope and weakness. Patient did receive the following treatments prior to arrival, none Related Data Home Medications Medication Instructions Recorded Confirmed gabapentin 300 mg PO TID 01/05/19 01/05/19 hydroxyzine HCl 50 mg PO BID PRN 01/05/19 01/05/19 methadone 105 mg PO DAILY 01/05/19 01/05/19 Allergies Allergy/AdvReac Type Severity Reaction Status Date / Time No Known Allergies Allergy Unverified 01/05/19 08:05 General Stated Complaint: Sorethroat PATRICIA: 3 Review of Systems Constitutional Reports as per HPI, Denies chills, Denies fatigue, Denies fever(s), Denies headache(s), Denies lethargy and Denies poor appetite Eyes Reports as per HPI, Denies eye discharge and Denies irritation ENT Reports as per HPI, Denies change in voice, Denies otalgia, Denies headache(s), Denies hoarseness, Denies lip swelling, Reports nasal congestion, Reports nasal discharge, Denies sinus pain, Denies sinus pressure, Reports sore throat, Denies throat swelling and Denies tongue swelling Cardiovascular Reports as per HPI, Denies chest pain and Denies dyspnea Respiratory Reports as per HPI, Denies cough, Denies pain on inspiration, Denies pain with cough, Denies dyspnea and Denies wheezing Gastrointestinal Reports as per HPI, Denies abdominal pain, Denies change in bowel habits, Reports nausea (chronic) and Denies vomiting Integumentary/Breasts Reports as per HPI and Denies rash Neurologic Reports as per HPI and Denies headache(s) Endocrine Denies fatigue Allergic/Immunologic Denies lip swelling, Denies throat swelling, Denies tongue swelling and Denies wheezing [facility] Medical History Endocarditis (Acute) Hepatitis C (Chronic) Surgical History History of heart valve replacement (Chronic) Social History Smoking/Tobacco Use Status: Current-Occasional Drug use: Current Sobriety Substance use type: former substance user and marijuana Do you feel safe at home: Yes Do you feel safe in your relationship?: Yes Exam Const General: cooperative, healthy appearing, comfortable, no acute distress, well developed, No well groomed and disheveled Nutritional Appearance: well nourished and overweight Orientation: alert and awake HENWA Head: normal to inspection, normocephalic and atraumatic Ears: hearing grossly normal bilaterally, external ears normal and TM's normal bilaterally General nose exam: external nose normal and nares normal Face and sinus: normal facial exam, sinuses nontender and face symmetric Mouth: oral mucosae normal, lip normal, tongue normal, oropharynx normal, moist mucous membranes, no trismus and No restricted motion Teeth and gingiva: abnormal dentition (poor dentition, all uppers have been extracted) Throat: posterior oropharynx abnormal (mild erythema, scant white exudate left side), uvula midline and tonsils absent Eyes General: appearance normal, both eyes and all related structures Neck Neck: normal visual inspection, full ROM, no lymphadenopathy and no meningeal signs Resp Effort & Inspection: normal respiratory effort, able to speak in complete sentences and no respiratory distress Auscultation: clear to auscultation bilaterally, no rales, no rhonchi and no wheezes Cardio Rate: regular rate Rhythm: regular rhythm Heart Sounds: S1 normal and S2 normal GI Inspection: normal to inspection, non-distended and obesity Palpation: soft, no hepatosplenomegaly, no guarding and nontender Percussion: normal to percussion Skin General skin exam: no rashes or lesions noted Neuro General: alert and awake Cognition: normal cognition Speech: speech normal Gait: normal gait Psych Appearance: grossly normal and well kempt Mental Status: mental status grossly normal Speech and Movement: speech and movement normal Course Vital Signs Temperature 36.0 C L 01/05/19 08:01 Pulse 81 01/05/19 08:01 Respiratory Rate 16 01/05/19 08:01 Pulse Oximetry 95 01/05/19 08:01 Temperature 36.0 C L 01/05/19 08:01 Temperature Source Temporal Artery Scan 01/05/19 08:01 Pulse 81 01/05/19 08:01 Respiratory Rate 16 01/05/19 08:01 Respiratory Effort Non-Labored 01/05/19 08:03 Blood Pressure Position Sitting 01/05/19 08:01 Pulse Oximetry 95 01/05/19 08:01 Oxygen Delivery Method Room Air 01/05/19 08:01 Oxygen Flow Rate 0 01/05/19 08:01 Pain Level 0 01/05/19 08:01
--- NOTE | 2019-01-05 08:52 | ED.GENADUL_ITS ---
Discharge Plan Disposition Patient Disposition: HOME Condition: Fair Discharge Details Chief Complaint: Sorethroat Clinical Impression: URI (upper respiratory infection) Primary Care Provider: Linda Gunn ED Provider: Merary Foreman Home Meds and New Rx's Prescriptions: Continued hydroxyzine HCl 50 mg Tablet 50 mg PO BID PRNRF: 0 gabapentin 300 mg Capsule 300 mg PO TID RF: 0 methadone 10 MG/ML concentrate 105 mg PO DAILY RF: 0 Discharge Instructions Instructions: Upper Respiratory Infection (ED) Additional Instructions: Encourage hydration. Tylenol and ibuprofen as needed for discomfort. Please follow-up with your primary care within the next week to discuss current symptoms as well as her chronic elements. If you develop chest pain, inability to stay hydrated, shortness of breath fever/chills or other new/worsening symptoms please seek care urgently once again. Referrals: Linda Gunn [Primary Care Provider] - Medical Decision Making Patient is a 28 year old female presenting today with c/c of mild sore throat that began yesterday. Noted white exudate on the left side. Patient s/p tonsillectomy. Reports that she had URI with cough, congestion, and ear popping over the past 2 weeks which is now resolving. She is concerned as she had endocarditis one year ago with valve replacement. 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 She denies any drug use since. No fevers/chills. No CP. Reports chronic SOB with exertion since her surgery last year, was advised cardiac rehab which she did not attend. No recent change in this. Also endorses chronic nausea. Has been seen here x 2 for this, was suspected to be associated with long-term marijuana usage which patient has continued with. No recent change in this, no abdominal pain, no vomiting recently. On exam, she has mild erythema with white exudate. She appears nontoxic. No murmur, rub, gallops. Lungs clear. Abdomen soft and nontender. Rapid strep negative. Discussed findings with the patient. Advised this is likely viral. Encouraged hydration. She was given strict return precautions. Advised that she need to f/u with her PCP for her many chronic ailments, she will call today to schedule appointment within the next week. All questions adn concerns were addressed, she is in agreement with this plan. HPI General Mode of arrival: ambulatory . Date/Time Provider Initiated Documentation: 01/05/19 08:07 . Limitations to Documentation: no limitations . Information obtained by: patient and RN notes reviewed . History of Present Illness 28 year old F presents to the emergency department with the chief complaint of white patches on throat, described as mild, Quality is described as aching, and is localized to the mouth. Patient reports no radiation. Patient started experiencing this day(s) (1) and it has been constant. No relieving factors improve symptom(s), No exacerbating factors reported . Patient notes cough (reports improving), nausea/vomiting (endorses chronic nausea) and shortness of breath (reports chronic since endocarditis last year, no recent change); denies confusion, chest pain, diaphoresis, fever/chills, loss of appetite, malaise, rash, syncope and weakness. Patient did receive the following treatments prior to arrival, none Related Data Home Medications Medication Instructions Recorded Confirmed gabapentin 300 mg PO TID 01/05/19 01/05/19 hydroxyzine HCl 50 mg PO BID PRN 01/05/19 01/05/19 methadone 105 mg PO DAILY 01/05/19 01/05/19 Allergies Allergy/AdvReac Type Severity Reaction Status Date / Time No Known Allergies Allergy Unverified 01/05/19 08:05 General Stated Complaint: Sorethroat PATRICIA: 3 Review of Systems Constitutional Reports as per HPI, Denies chills, Denies fatigue, Denies fever(s), Denies headache(s), Denies lethargy and Denies poor appetite Eyes Reports as per HPI, Denies eye discharge and Denies irritation ENT Reports as per HPI, Denies change in voice, Denies otalgia, Denies headache(s), Denies hoarseness, Denies lip swelling, Reports nasal congestion, Reports nasal discharge, Denies sinus pain, Denies sinus pressure, Reports sore throat, Denies throat swelling and Denies tongue swelling Cardiovascular Reports as per HPI, Denies chest pain and Denies dyspnea Respiratory Reports as per HPI, Denies cough, Denies pain on inspiration, Denies pain with cough, Denies dyspnea and Denies wheezing Gastrointestinal Reports as per HPI, Denies abdominal pain, Denies change in bowel habits, Reports nausea (chronic) and Denies vomiting Integumentary/Breasts Reports as per HPI and Denies rash Neurologic Reports as per HPI and Denies headache(s) Endocrine Denies fatigue Allergic/Immunologic Denies lip swelling, Denies throat swelling, Denies tongue swelling and Denies wheezing [facility] Medical History Endocarditis (Acute) Hepatitis C (Chronic) Surgical History History of heart valve replacement (Chronic) Social History Smoking/Tobacco Use Status: Current-Occasional Drug use: Current Sobriety Substance use type: former substance user and marijuana Do you feel safe at home: Yes Do you feel safe in your relationship?: Yes Exam Const General: cooperative, healthy appearing, comfortable, no acute distress, well developed, No well groomed and disheveled Nutritional Appearance: well nourished and overweight Orientation: alert and awake HENDC Head: normal to inspection, normocephalic and atraumatic Ears: hearing grossly normal bilaterally, external ears normal and TM's normal bilaterally General nose exam: external nose normal and nares normal Face and sinus: normal facial exam, sinuses nontender and face symmetric Mouth: oral mucosae normal, lip normal, tongue normal, oropharynx normal, moist mucous membranes, no trismus and No restricted motion Teeth and gingiva: abnormal dentition (poor dentition, all uppers have been extracted) Throat: posterior oropharynx abnormal (mild erythema, scant white exudate left side), uvula midline and tonsils absent Eyes General: appearance normal, both eyes and all related structures Neck Neck: normal visual inspection, full ROM, no lymphadenopathy and no meningeal signs Resp Effort & Inspection: normal respiratory effort, able to speak in complete sentences and no respiratory distress Auscultation: clear to auscultation bilaterally, no rales, no rhonchi and no wheezes Cardio Rate: regular rate Rhythm: regular rhythm Heart Sounds: S1 normal and S2 normal GI Inspection: normal to inspection, non-distended and obesity Palpation: soft, no hepatosplenomegaly, no guarding and nontender Percussion: normal to percussion Skin General skin exam: no rashes or lesions noted Neuro General: alert and awake Cognition: normal cognition Speech: speech normal Gait: normal gait Psych Appearance: grossly normal and well kempt Mental Status: mental status grossly normal Speech and Movement: speech and movement normal Course Vital Signs Temperature 36.0 C L 01/05/19 08:01 Pulse 81 01/05/19 08:01 Respiratory Rate 16 01/05/19 08:01 Pulse Oximetry 95 01/05/19 08:01 Temperature 36.0 C L 01/05/19 08:01 Temperature Source Temporal Artery Scan 01/05/19 08:01 Pulse 81 01/05/19 08:01 Respiratory Rate 16 01/05/19 08:01 Respiratory Effort Non-Labored 01/05/19 08:03 Blood Pressure Position Sitting 01/05/19 08:01 Pulse Oximetry 95 01/05/19 08:01 Oxygen Delivery Method Room Air 01/05/19 08:01 Oxygen Flow Rate 0 01/05/19 08:01 Pain Level 0 01/05/19 08:01
== END 2019-01-05 08:41 | disposition home or self-care (01) ==
PROVIDERS: Emergency Provider Physician Assistant; PCP Nurse Practitioner Family
DX: J06.9 Acute upper respiratory infection, unspecified (principal); F17.210 Nicotine dependence, cigarettes, uncomplicated; Z95.2 Presence of prosthetic heart valve
CPT/HCPCS: 87880; 99282; 87081

== ENCOUNTER 2019-01-26 06:48 | Emergency (ER) | payer MEDICAID, SELFPAY ==
[2019-01-26] VITALS (41 sets, daily range): BP systolic 88–143; BP diastolic 62–98; PULSE 63–82; RESP 7–39; TEMP 36.6; O2SAT 97–100
--- NOTE | 2019-01-26 07:18 | ED.GENADUL_ITS ---
Discharge Plan Disposition Patient Disposition: HOME Condition: Improving Discharge Details Chief Complaint: Abd Prob Clinical Impression: Abdominal pain, Vomiting Primary Care Provider: Linda Gunn ED Provider: Harika Adams Home Meds and New Rx's Prescriptions: New promethazine 12.5 mg tablet 12.5 mg PO Q6H PRN (Reason: nausea and vomiting) Qty: 6 RF: 0 polyethylene glycol 3350 [Miralax] 17 gram powder in packet 17 gm PO DAILY PRN (Reason: constipation) Qty: 10 RF: 0 Continued hydroxyzine HCl 50 mg Tablet 50 mg PO BID PRNRF: 0 gabapentin 300 mg Capsule 300 mg PO TID RF: 0 methadone 10 MG/ML concentrate 105 mg PO DAILY RF: 0 Discharge Instructions Instructions: Acute Nausea and Vomiting (ED), Abdominal Pain (ED) Additional Instructions: Take the Phenergan as needed and directed for nausea and vomiting. Take the MiraLAX as needed and directed to help with constipation. Call your primary care doctor today to schedule a follow-up appointment for reevaluation. Return immediately to the emergency department with any worsening or new concerning symptoms.` Discharge Data Discharge Date/Time-TO BE ENTERED AT DEPARTURE: 01/26/19 12:48 Discharge Physician: Harika Adams Medical Decision Making 28-year-old female with a history of anxiety, depression, hepatitis C, obesity, GERD, IVDA and endocarditis with history of mitral valve replacement who presents to the ED with constant periumbilical abdominal pain and vomiting since last night. Vitals within normal limits. Patient crying and moaning in pain. Patient just received methadone this morning. Her abdomen is soft and mildly tender in the upper abdomen. No rigidity or guarding. Differential diagnosis includes appendicitis, gastritis, cholecystitis, pancreatitis. Will place an IV, bolus IV fluids, labs, urinalysis and CT abdomen and pelvis. Will wait on serum hCG. 0815 --labs reviewed and no white blood cell count 13. Potassium 3.2. Anion gap 18. Mag 1.6. Normal lipase. test negative. Will send for CT abdomen and pelvis. Will replete potassium. EKG notes a rate of 88 and sinus with no acute ST findings. 0900 --pt vomiting in CT and IV infiltrated. Dose of compazine ordered. Sent back to ED for another IV. 1015 --IV placed and now to go back to CT. Pt sleeping comfortably. 1115 --pt vomited and c/o pain. Dose of phenergan and toradol ordered. CT reviewed with radiologist and notes 4cm left ovarian cyst at and fecal retention but otherwise negative for acute findings. 1210 --patient feels much better and is requesting to go home. Urinalysis negative. Patient admits to constipation recently. States she is taking stool softeners. Was sent home with a prescription for MiraLAX and Phenergan. She is instructed to follow-up with the primary care doctor for reevaluation and to return here if worse. Medical Records Medical records reviewed: Yes I reviewed the patient's medical records. Imaging Data Radiologic Study: Radiologist's impression: PA AND LATERAL CHEST: The lungs are well expanded and free of infiltrate. There is no pleural effusion. The heart is not enlarged in this patient who is status post CABG. The hilar structures, mediastinum and tracheal air column are intact. Radiologic Study #2: Radiologist's impression: ABDOMINAL AND PELVIC CT: The study was carried out according to the usual protocol with an intravenous administration of 100 cc's of Omnipaque 350. The lung bases are unremarkable. The liver is normal. There is no evidence of cholelithiasis and nothing to suggest acute cholecystitis. There is no evidence of ductal dilatation. The pancreas and spleen are intact. There is a small cortical radiolucency involving the left kidney which likely represents a cyst. The kidneys are otherwise unremarkable with no evidence of nephrolithiasis or hydronephrosis. There is no evidence of bowel obstruction. There is nothing to suggest an acute appendix. The bladder is intact. There is a left ovarian cyst with a maximal diameter of approaching 4 cm. The reproductive organs as visualized appear otherwise unremarkable. There is no evidence of an aortic aneurysm. Note is made of a fat containing umbilical hernia. SUMMARY: No acute abnormality is demonstrated. Specifically there is no evidence of acute cholecystitis or appendicitis. There is a left ovarian cyst with a maximal diameter of approximately 4 cm. A fat containing umbilical hernia is apparent. Lab Data Lab results reviewed: Yes I reviewed the patient's lab results. Laboratory Tests Range/Units 01/26/19 01/26/19 01/26/19 07:20 07:20 07:20 WBC (4.4-10.8) k/cumm 13.17 H RBC (4.00-5.20) m/cumm 4.99 Hgb (12.0-15.5) g/dL 14.2 Hct (36.0-46.0) % 42.6 MCV (80-95) fL 85.4 MCH (27.0-33.0) pg 28.5 MCHC (32.0-36.0) g/dL 33.3 RDW (11.7-14.6) % 14.6 Plt Count (130-400) x1000/uL 391 MPV (8.0-11.0) fL 10.8 Immature Gran % 0.2 Neutrophils % 80.1 Lymphocytes % 15.6 Monocytes % 3.3 Eosinophils % 0.6 Basophils % 0.2 Absolute Neutrophils (1.2-6.7) k/cumm 10.55 H Absolute Lymphocytes (1.2-3.4) k/cumm 2.05 Absolute Monocytes (0.11-0.7) k/cumm 0.43 Absolute Eosinophils (0.0-0.7) k/cumm 0.08 Absolute Basophils (0.0-0.2) k/cumm 0.03 Sodium (136-145) mmol/L 139 Potassium (3.5-5.1) mmol/L 3.2 L Chloride (98-107) mmol/L 99 Carbon Dioxide (21.0-32.0) mmol/L 21.5 Anion Gap (3-11) mmol/L 18.5 H BUN (7-18) mg/dL 12 Creatinine (0.55-1.02) mg/dL 0.99 Estimated GFR/1.73 m2 (mL/min/1.73m2) >= 60.00 Glucose (70-100) mg/dL 181 H Calcium (8.5-10.1) mg/dL 9.6 Magnesium (1.8-2.4) mg/dL 1.6 L Total Bilirubin (0.2-1.0) mg/dL 0.3 AST (15-37) U/L 26 ALT (12-78) U/L 20 Alkaline Phosphatase (46-116) U/L 97 Troponin I (0.00-0.06) ng/mL < 0.02 Total Protein (6.4-8.2) g/dL 8.4 H Albumin (3.4-5.0) g/dL 4.0 Lipase (73-393) U/L 113 Serum HCG, Qual Negative Urine Color (Yellow) Urine Clarity Urine pH (5-8) Ur Specific [place] (1.005-1.025) Urine Protein (Negative) mg/dL Urine Ketones (Negative) mg/dL Urine Blood (Negative) Urine Nitrite (Negative) Urine Bilirubin (Negative) Urine Urobilinogen (Up TO 0.2) EU/dL Ur Leukocyte Esterase (Negative) Urine RBC Urine WBC Ur Epithelial Cells (Negative) HPF Urine Crystals Urine Bacteria Urine Mucus Ur Culture Indicated? Urine Glucose (Negative) mg/dL Urine Opiates Screen (Negative) Urine Methadone Screen (Negative) Ur Barbiturates Screen (Negative) Ur Tricyclics Screen (Negative) Ur Amphetamines Screen (Negative) U Benzodiazepines Scrn (Negative) Urine Cocaine Screen (Negative) Ur THC Screen (Negative) Range/Units 01/26/19 01/26/19 11:35 11:45 WBC (4.4-10.8) k/cumm RBC (4.00-5.20) m/cumm Hgb (12.0-15.5) g/dL Hct (36.0-46.0) % MCV (80-95) fL MCH (27.0-33.0) pg MCHC (32.0-36.0) g/dL RDW (11.7-14.6) % Plt Count (130-400) x1000/uL MPV (8.0-11.0) fL Immature Gran % Neutrophils % Lymphocytes % Monocytes % Eosinophils % Basophils % Absolute Neutrophils (1.2-6.7) k/cumm Absolute Lymphocytes (1.2-3.4) k/cumm Absolute Monocytes (0.11-0.7) k/cumm Absolute Eosinophils (0.0-0.7) k/cumm Absolute Basophils (0.0-0.2) k/cumm Sodium (136-145) mmol/L Potassium (3.5-5.1) mmol/L Chloride (98-107) mmol/L Carbon Dioxide (21.0-32.0) mmol/L Anion Gap (3-11) mmol/L BUN (7-18) mg/dL Creatinine (0.55-1.02) mg/dL Estimated GFR/1.73 m2 (mL/min/1.73m2) Glucose (70-100) mg/dL Calcium (8.5-10.1) mg/dL Magnesium (1.8-2.4) mg/dL Total Bilirubin (0.2-1.0) mg/dL AST (15-37) U/L ALT (12-78) U/L Alkaline Phosphatase (46-116) U/L Troponin I (0.00-0.06) ng/mL Total Protein (6.4-8.2) g/dL Albumin (3.4-5.0) g/dL Lipase (73-393) U/L Serum HCG, Qual Urine Color (Yellow) Yellow Urine Clarity Clear Urine pH (5-8) 7.0 Ur Specific [place] (1.005-1.025) 1.010 Urine Protein (Negative) mg/dL Trace H Urine Ketones (Negative) mg/dL Negative Urine Blood (Negative) Negative Urine Nitrite (Negative) Negative Urine Bilirubin (Negative) Negative Urine Urobilinogen (Up TO 0.2) EU/dL 0.2 Ur Leukocyte Esterase (Negative) Negative Urine RBC Not Applicable Urine WBC Not Applicable Ur Epithelial Cells (Negative) HPF Urine Crystals Not Applicable Urine Bacteria Not Applicable Urine Mucus Not Applicable Ur Culture Indicated? No/sq. contamination Urine Glucose (Negative) mg/dL Negative Urine Opiates Screen (Negative) Negative Urine Methadone Screen (Negative) Positive Ur Barbiturates Screen (Negative) Negative Ur Tricyclics Screen (Negative) Negative Ur Amphetamines Screen (Negative) Negative U Benzodiazepines Scrn (Negative) Negative Urine Cocaine Screen (Negative) Negative Ur THC Screen (Negative) Positive ECG Data Attestation: I personally reviewed and interpreted this ECG (s) as follows: Interpretation: Rate of 86, sinus. First-degree block. No acute ST elevation or depression. QTc 488. QRS 113. HPI General Mode of arrival: ambulatory . Date/Time Provider Initiated Documentation: 01/26/19 07:04 . Limitations to Documentation: no limitations . Information obtained by: patient . HPI Narrative: Patient is a 28-year-old female with a history of anxiety, depression, GERD, hepatitis C, obesity, IV drug use and endocarditis resulting in mitral valve replacement who presents to the ED with complaint of constant periumbilical abdominal pain and vomiting since last night. Patient states she has vomited 5 times which is been chunky. She denies any blood in vomit. She states today she tried to have a bowel movement and it was bright red blood but no stool. She denies any fever, urinary symptoms, chest pain or shortness of breath. She denies any recent antibiotics or recent travel. Related Data Home Medications Medication Instructions Recorded Confirmed gabapentin 300 mg PO TID 01/05/19 01/05/19 hydroxyzine HCl 50 mg PO BID PRN 01/05/19 01/05/19 methadone 105 mg PO DAILY 01/05/19 01/05/19 polyethylene glycol 3350 [Miralax] 17 gm PO DAILY PRN #10 each 01/26/19 promethazine 12.5 mg PO Q6H PRN #6 tab 01/26/19 Previous Rx's Medication Instructions Recorded polyethylene glycol 3350 [Miralax] 17 gm PO DAILY PRN #10 each 01/26/19 promethazine 12.5 mg PO Q6H PRN #6 tab 01/26/19 Allergies Allergy/AdvReac Type Severity Reaction Status Date / Time No Known Allergies Allergy Unverified 01/05/19 08:05 General Stated Complaint: Abd Prob PATRICIA: 3 Review of Systems Review of Systems All systems reviewed & are unremarkable except as noted in HPI and below Constitutional Reports as per HPI, Denies chills and Denies fever(s) Eyes Denies blurry vision ENT Denies dizziness, Denies sore throat and Denies throat swelling Cardiovascular Denies chest pain and Denies dyspnea Respiratory Denies cough and Denies dyspnea Gastrointestinal Reports abdominal pain, Denies diarrhea and Reports vomiting Genitourinary Denies hematuria and Denies dysuria Musculoskeletal Denies back pain and Denies numbness Integumentary/Breasts Denies lesions and Denies rash Neurologic Denies dizziness, Denies focal weakness and Denies numbness Allergic/Immunologic Denies throat swelling FOR[facility], LAT[facility] Medical History Endocarditis (Acute) Anxiety (Chronic) Bipolar disorder (Chronic) GERD (gastroesophageal reflux disease) (Chronic) Hepatitis C (Chronic) Obesity (Chronic) Surgical History History of heart valve replacement (Chronic) Social History Smoking/Tobacco Use Status: Current-Occasional Drug use: Current Sobriety Substance use type: former substance user and marijuana Do you feel safe at home: Yes Do you feel safe in your relationship?: Yes Exam Const General: anxious and other (moaning, crying) HENMT Head: normal to inspection Face and sinus: normal facial exam Eyes General: appearance normal, both eyes and all related structures Pupils: PERRL EOM: EOM intact bilaterally Neck Neck: normal visual inspection and No submandibular swelling Lymphatic: no lymphadenopathy noted Chest Chest: normal inspection of the chest and no tenderness Resp Effort & Inspection: normal respiratory effort and able to speak in complete sentences Auscultation: clear to auscultation bilaterally Cardio Rate: regular rate Rhythm: regular rhythm GI Inspection: normal to inspection and other (diffuse stretch pickard) Palpation: soft, not firm, not rigid and tender (across upper abdomen. No RLQ, suprapubic or LLQ tenderness) Auscultation: hypoactive bowel sounds Skin General skin exam: no rashes or lesions noted Neuro General: alert, awake and oriented x3 Cognition: normal cognition Speech: speech normal Motor: muscle tone normal throughout Sensory Exam: no sensory deficits noted Extrem General: normal to inspection, full ROM and no edema Psych Appearance: grossly normal Mental Status: mental status grossly normal Speech and Movement: speech and movement normal Affect: normal affect Course Vital Signs Temperature 97.9 F 01/26/19 06:56 Pulse 74 01/26/19 06:56 Respiratory Rate 30 H 01/26/19 06:56 Blood Pressure 142/79 H 01/26/19 06:56 Pulse Oximetry 100 01/26/19 06:56 Temperature 97.9 F 01/26/19 06:56 Temperature Source Skin 01/26/19 06:56 Pulse 74 01/26/19 06:56 Respiratory Rate 30 H 01/26/19 06:56 Blood Pressure 142/79 H 01/26/19 06:56 Blood Pressure Position Sitting 01/26/19 06:56 Pulse Oximetry 100 01/26/19 06:56 Oxygen Delivery Method Room Air 01/26/19 06:56 Oxygen Flow Rate 0 01/26/19 06:56 Pain Level 10 01/26/19 06:56
[2019-01-26] MEDS: Normal Saline 1,000 ML 1000 ML IV (07:35)
[2019-01-26 07:39] LABS: Abs Immature Grans 0.02 k/cumm (0.0-0.09); Absolute Basophil Count 0.03 k/cumm (0.0-0.2); Absolute Eosinophil Count 0.08 k/cumm (0.0-0.7); Absolute Lymphocyte Count 2.05 k/cumm (1.2-3.4); Absolute Neutrophil Count 10.55 k/cumm (1.2-6.7); Basophils % 0.2; Eosinophils % 0.6; HCT 42.6 % (36.0-46.0); HGB 14.2 g/dL (12.0-15.5); Immature Grans % 0.2; Lymphocytes % 15.6; Mean Corp. HGB Concentration 33.3 g/dL (32.0-36.0); Mean Corpuscular Hemoglobin 28.5 pg (27.0-33.0); Mean Corpuscular Volume 85.4 fL (80-95); Mean Platelet Volume 10.8 fL (8.0-11.0); Monocytes % 3.3; Neutrophils % 80.1; Platelet Count 391 x1000/uL (130-400); RBC 4.99 m/cumm (4.00-5.20); RBC Distribution Width 14.6 % (11.7-14.6); White Blood Cell Count 13.17 k/cumm (4.4-10.8)
[2019-01-26 07:46] LABS: Absolute Monocyte Count 0.43 k/cumm (0.11-0.7)
[2019-01-26 08:01] LABS: HCG Qual (Serum) Negative
[2019-01-26 08:15] LABS: ALT 20 U/L (12-78); AST 26 U/L (15-37); Alkaline Phosphatase 97 U/L (46-116); Anion Gap 18.5 mmol/L (3-11); BUN 12 mg/dL (7-18); Bilirubin, Total 0.3 mg/dL (0.2-1.0); CO2 21.5 mmol/L (21.0-32.0); CREATININE 0.99 mg/dL (0.55-1.02); Calcium 9.6 mg/dL (8.5-10.1); Chloride 99 mmol/L (98-107); Glucose 181 mg/dL (70-100); Lipase 113 U/L (73-393); Magnesium 1.6 mg/dL (1.8-2.4); Potassium 3.2 mmol/L (3.5-5.1); Sodium 139 mmol/L (136-145); Total Protein 8.4 g/dL (6.4-8.2)
[2019-01-26 08:16] LABS: Troponin I < 0.02 ng/mL (0.00-0.06)
[2019-01-26] MEDS: Prochlorperazine 10 MG/2 ML VIAL IM (09:21)
--- NOTE | 2019-01-26 10:39 | DI.CT_ITS ---
SYMPTOMS/DIAGNOSIS: PERIUMBILICAL ABD PAIN, VOMITING, ? APPENDICITIS/CHOLECYSTITIS/PANCREATITIS ABDOMINAL AND PELVIC CT: The study was carried out according to the usual protocol with an intravenous administration of 100 cc's of Omnipaque 350. The lung bases are unremarkable. The liver is normal. There is no evidence of cholelithiasis and nothing to suggest acute cholecystitis. There is no evidence of ductal dilatation. The pancreas and spleen are intact. There is a small cortical radiolucency involving the left kidney which likely represents a cyst. The kidneys are otherwise unremarkable with no evidence of nephrolithiasis or hydronephrosis. There is no evidence of bowel obstruction. There is nothing to suggest an acute appendix. The bladder is intact. There is a left ovarian cyst with a maximal diameter of approaching 4 cm. The reproductive organs as visualized appear otherwise unremarkable. There is no evidence of an aortic aneurysm. Note is made of a fat containing umbilical hernia. SUMMARY: No acute abnormality is demonstrated. Specifically there is no evidence of acute cholecystitis or appendicitis. There is a left ovarian cyst with a maximal diameter of approximately 4 cm. A fat containing umbilical hernia is apparent.
[2019-01-26] MEDS: Omnipaque 350 MG/ML 100 ML BTL IJ (10:41)
--- NOTE | 2019-01-26 10:46 | DI.RAD_ITS ---
SYMPTOMS/DIAGNOSIS: UPPER ABD PAIN, ? ACUTE DISEASE PA AND LATERAL CHEST: The lungs are well expanded and free of infiltrate. There is no pleural effusion. The heart is not enlarged in this patient who is status post CABG. The hilar structures, mediastinum and tracheal air column are intact.
[2019-01-26] MEDS: MAGNESIUM SULFATE 1 GM/100 ML BAG IVPB (10:52)
[2019-01-26] MEDS: Potassium Chloride 20 MEQ TABCR 40 MEQ PO (10:52)
[2019-01-26 11:50] LABS: Bilirubin Negative (Negative); Blood Negative (Negative); Clarity Clear; Glucose Negative (Negative); Ketones Negative (Negative); Leukocyte Esterase Negative (Negative); Nitrite Negative (Negative); Urobilinogen 0.2 EU/dL (Up TO 0.2)
[2019-01-26] MEDS: Ketorolac 30 MG/ML VIAL IVP (11:52)
[2019-01-26 11:59] LABS: *AMPHETAMINES SCREEN URINE Negative (Negative); *BARBITURATES SCREEN URINE Negative (Negative); *BENZODIAZEPINES SCREEN URINE Negative (Negative); Cannabinoids THC POSITIVE (Negative); Cocaine Screen,Urine Negative (Negative); METHADONE URINE SCREEN POSITIVE (Negative); OPIATES URINE SCREEN Negative (Negative)
[2019-01-26 12:03] LABS: C & S Indicated? No/Sq. Contamination
[2019-01-26 12:03] LABS: Tricyclic Antidepressants Negative (Negative)
== END 2019-01-26 12:48 | disposition home or self-care (01) ==
PROVIDERS: Emergency Provider Physician Assistant; PCP Nurse Practitioner Family
DX: R10.13 Epigastric pain (principal); R11.10 Vomiting, unspecified; Z93.2 Ileostomy status
CPT/HCPCS: 36415; 80053; 80307; 83690; 93005; 96361; 96365; 96367; 96375; 99285; 71046; 74177; 81003; 81015; 83735; 84484; 84703; 85025; 93010; J0780; J1885; J3475; J3490

== ENCOUNTER 2019-01-28 05:39 | Emergency (ER) | payer MEDICAID, SELFPAY ==
[2019-01-28 05:44] VITALS: BP 131/96; PULSE 71; RESP 24; TEMP 36.4; O2SAT 99
--- NOTE | 2019-01-28 06:03 | ED.GENADUL_ITS ---
Discharge Plan Disposition Patient Disposition: HOME Condition: Stable Discharge Details Chief Complaint: Abd Prob Clinical Impression: Abdominal pain, Elevated LFTs Primary Care Provider: Linda Gunn ED Provider: Gil Haro Home Meds and New Rx's Prescriptions: New promethazine 25 mg tablet 25 mg PO Q6H PRN (Reason: nausea and vomiting) Qty: 30 RF: 0 No Action hydroxyzine HCl 50 mg Tablet 50 mg PO BID PRNRF: 0 gabapentin 300 mg Capsule 300 mg PO TID RF: 0 methadone 10 MG/ML concentrate 105 mg PO DAILY RF: 0 promethazine 12.5 mg tablet 12.5 mg PO Q6H PRN (Reason: nausea and vomiting) Qty: 6 RF: 0 polyethylene glycol 3350 [Miralax] 17 gram powder in packet 17 gm PO DAILY PRN (Reason: constipation) Qty: 10 RF: 0 Discharge Instructions Additional Instructions: Your lab work showed elevation in your liver function tests. You should follow up with your primary care provider in 1-2 weeks to have these rechecked take the phergan for nauea you can take 600mg ibuprofen every 6 hours for pain if you feel the pain is significantly worse or you have persistent vomit return to the emergency department Medical Decision Making 28yo female with a history of anxiety, depression, hepatitis C, GERD, IVDA and endocarditis with history of mitral valve replacement comes in with complaints of conitnued abd pain and n/v. She was seen on 01/26 and found to have ovarian cyst on ct and d/c'd home as she felt better. She never filled her miralax prescription or phenergan and continues to have these symptoms. She has had symptoms similar to this in the past without a diagnosis of cyclic vomit/cannabinoid hyperemesis. She has a soft nondistended abdomen and when distracted is pleasant in no distress. I suspect cyclic vomit vs ovarian cyst, will tx symptomatically and monitor. Given reassuring exam and recent ct will hold on imaging at this time pt's labs show elevation in lfts and bilirubin from yesterday. SHe is no longer having any pain and has no ruq tenderness, negative guerrero's sign. Given negative CT yesterday do not feel repeat imaging today indicated. This could be a result of her hepatitis C that she states she has had. She is hd stable and tolerating po and has no pain so feel she can be d/c'd and f/u with pcp in 1-2 weeks for follow up. She has no fever or jaundice so doubt cholangitis Differential Diagnosis cyclic vomit, ovarian cyst HPI General Mode of arrival: ambulatory . Date/Time Provider Initiated Documentation: 01/28/19 05:43 . Limitations to Documentation: no limitations . Information obtained by: patient . History of Present Illness 28 year old F presents to the emergency department with the chief complaint of abdominal pain, described as moderate, Quality is described as aching, and is localized to the abdomen. Patient reports no radiation. Patient started experiencing this day(s) (1) and it has been constant. No relieving factors improve symptom(s), No exacerbating factors reported . Patient notes nausea/vomiting. Patient did receive the following treatments prior to arrival, none Related Data Home Medications Medication Instructions Recorded Confirmed gabapentin 300 mg PO TID 01/05/19 01/28/19 hydroxyzine HCl 50 mg PO BID PRN 01/05/19 01/28/19 methadone 105 mg PO DAILY 01/05/19 01/28/19 polyethylene glycol 3350 [Miralax] 17 gm PO DAILY PRN #10 each 01/26/19 01/28/19 promethazine 12.5 mg PO Q6H PRN #6 tab 01/26/19 01/28/19 promethazine 25 mg PO Q6H PRN #30 tab 01/28/19 Previous Rx's Medication Instructions Recorded polyethylene glycol 3350 [Miralax] 17 gm PO DAILY PRN #10 each 01/26/19 promethazine 12.5 mg PO Q6H PRN #6 tab 01/26/19 promethazine 25 mg PO Q6H PRN #30 tab 01/28/19 Allergies Allergy/AdvReac Type Severity Reaction Status Date / Time No Known Allergies Allergy Unverified 01/28/19 05:48 General Stated Complaint: Abd Prob PATRICIA: 3 Review of Systems Review of Systems All systems reviewed & are unremarkable except as noted in HPI and below Constitutional Denies chills, Denies fever(s) and Denies weakness Cardiovascular Denies chest pain and Denies dyspnea Respiratory Denies cough and Denies dyspnea Genitourinary Denies dysuria Integumentary/Breasts Denies rash Neurologic Denies weakness PFS Social History (Reviewed 01/26/19 @ 07:17 by ELAINE Charles Smoking/Tobacco Use Status: Current-Occasional Drug use: Current Sobriety Substance use type: former substance user and marijuana Do you feel safe at home: Yes Do you feel safe in your relationship?: Yes Exam Const General: no acute distress Orientation: alert HENMT Head: normal to inspection Ears: external ears normal General nose exam: external nose normal Mouth: moist mucous membranes Eyes General: appearance normal, both eyes and all related structures Neck Neck: normal visual inspection Resp Effort & Inspection: normal respiratory effort and able to speak in complete sentences Cardio Rate: regular rate GI Palpation: soft Skin General skin exam: no rashes or lesions noted Neuro General: alert and oriented x3 Extrem General: normal to inspection Psych Mental Status: mental status grossly normal Course Vital Signs Temperature 36.4 C L 01/28/19 05:44 Pulse 71 01/28/19 05:44 Respiratory Rate 24 01/28/19 05:44 Blood Pressure 131/96 H 01/28/19 05:44 Pulse Oximetry 99 01/28/19 05:44 Temperature 36.4 C L 01/28/19 05:44 Temperature Source Temporal Artery Scan 01/28/19 05:44 Pulse 71 01/28/19 05:44 Respiratory Rate 24 01/28/19 05:44 Respiratory Effort Non-Labored 01/28/19 05:44 Blood Pressure 131/96 H 01/28/19 05:44 Blood Pressure Position Supine 01/28/19 05:44 Pulse Oximetry 99 01/28/19 05:44 Oxygen Delivery Method Room Air 01/28/19 05:44 Oxygen Flow Rate 0 01/28/19 05:44 Pain Level 98 01/28/19 05:44
[2019-01-28 06:11] LABS: Abs Immature Grans 0.02 k/cumm (0.0-0.09); Absolute Basophil Count 0.03 k/cumm (0.0-0.2); Absolute Eosinophil Count 0.09 k/cumm (0.0-0.7); Absolute Lymphocyte Count 1.64 k/cumm (1.2-3.4); Absolute Monocyte Count 0.36 k/cumm (0.11-0.7); Absolute Neutrophil Count 6.05 k/cumm (1.2-6.7); Basophils % 0.4; Eosinophils % 1.1; HCT 38.3 % (36.0-46.0); HGB 12.9 g/dL (12.0-15.5); Immature Grans % 0.2; Mean Corp. HGB Concentration 33.7 g/dL (32.0-36.0); Mean Corpuscular Hemoglobin 28.9 pg (27.0-33.0); Mean Corpuscular Volume 85.7 fL (80-95); Mean Platelet Volume 10.3 fL (8.0-11.0); Monocytes % 4.4; Neutrophils % 73.9; Platelet Count 294 x1000/uL (130-400); RBC 4.47 m/cumm (4.00-5.20); RBC Distribution Width 14.9 % (11.7-14.6); White Blood Cell Count 8.19 k/cumm (4.4-10.8)
[2019-01-28] MEDS: Normal Saline 1,000 ML 1000 ML IV (06:14)
[2019-01-28 06:26] LABS: PTT Activated 25.2 sec (21.0-31.4)
[2019-01-28 06:27] LABS: Magnesium 1.9 mg/dL (1.8-2.4)
[2019-01-28 06:30] LABS: ALT 297 U/L (12-78); AST 208 U/L (15-37); Albumin 3.6 g/dL (3.4-5.0); Alkaline Phosphatase 265 U/L (46-116); Anion Gap 8.9 mmol/L (3-11); BUN 8 mg/dL (7-18); Bilirubin, Total 5.6 mg/dL (0.2-1.0); CO2 27.1 mmol/L (21.0-32.0); CREATININE 0.74 mg/dL (0.55-1.02); Calcium 8.8 mg/dL (8.5-10.1); Chloride 102 mmol/L (98-107); Glucose 115 mg/dL (70-100); Lipase 70 U/L (73-393); Potassium 3.8 mmol/L (3.5-5.1); Sodium 138 mmol/L (136-145); Total Protein 7.5 g/dL (6.4-8.2)
[2019-01-28 06:35] LABS: HCG Qual (Serum) Negative
[2019-01-28 06:57] LABS: Bilirubin, Direct 4.62 mg/dL (0.00-0.20)
== END 2019-01-28 22:25 | disposition home or self-care (01) ==
PROVIDERS: Emergency Provider Emergency Medicine; PCP Nurse Practitioner Family
DX: R10.9 Unspecified abdominal pain (principal); R11.2 Nausea with vomiting, unspecified; R94.5 Abnormal results of liver function studies; K59.00 Constipation, unspecified; Z95.2 Presence of prosthetic heart valve
CPT/HCPCS: 36415; 80053; 83690; 96361; 96365; 96374; 99284; 74022; 81003; 82248; 83735; 84703; 85025; 85610; 85730; J1885

== ENCOUNTER 2019-01-28 19:02 | Emergency (ER) | payer MEDICAID, SELFPAY ==
[2019-01-28 19:05] VITALS: BP 135/77; PULSE 80; RESP 18; TEMP 36.8; O2SAT 97
--- NOTE | 2019-01-28 19:55 | DI.RAD_ITS ---
SYMPTOMS/DIAGNOSIS: ABD PAIN ACUTE ABDOMINAL SERIES: The heart size and pulmonary vasculature are within normal limits. Sternal wires are in place. The lungs are clear. The bowel gas pattern is nonspecific. No evidence of obstruction is seen. No organomegaly or pneumoperitoneum is seen. The bones appear intact. IMPRESSION: 1. No acute pulmonary process. 2. No evidence of an acute abdomen.
[2019-01-28] MEDS: Ketorolac 30 MG/ML VIAL IVP (20:10)
[2019-01-28] MEDS: Normal Saline 1,000 ML 1000 ML IV (20:11)
--- NOTE | 2019-01-28 20:16 | ED.GENADUL_ITS ---
Discharge Plan Disposition Patient Disposition: HOME Condition: Improving Discharge Details Chief Complaint: Abd Prob Clinical Impression: Abdominal pain Primary Care Provider: Linda Gunn ED Provider: Rafael May Home Meds and New Rx's Prescriptions: Continued promethazine 25 mg tablet 25 mg PO Q6H PRN (Reason: nausea and vomiting) Qty: 30 RF: 0 hydroxyzine HCl 50 mg Tablet 50 mg PO BID PRNRF: 0 gabapentin 300 mg Capsule 300 mg PO TID RF: 0 methadone 10 MG/ML concentrate 105 mg PO DAILY RF: 0 promethazine 12.5 mg tablet 12.5 mg PO Q6H PRN (Reason: nausea and vomiting) Qty: 6 RF: 0 polyethylene glycol 3350 [Miralax] 17 gram powder in packet 17 gm PO DAILY PRN (Reason: constipation) Qty: 10 RF: 0 Discharge Instructions Instructions: Abdominal Pain (ED) Additional Instructions: Please use the provided suppository when you get home and also use the enemas that you already have at home. You may continue to use ibuprofen for any discomfort and make sure that you drink plenty of fluids. If you continue to have this problem you should follow-up with your primary care provider for reassessment and for any new or significant worsening of symptoms, fever chills, bleeding per rectum or change or change in your condition feel free to return to the emergency department. Your liver enzymes were still elevated so you should follow-up with your primary care provider for reassessment of those labs Referrals: Linda Gunn [Primary Care Provider] - (For reassessment if symptoms continue) Discharge Data Discharge Date/Time-TO BE ENTERED AT DEPARTURE: 01/28/19 22:26 Medical Decision Making Patient presenting the emergency department for chief complaint of continued abdominal pain. Patient states that pain is been going on for the past 2 days and has been presenting to the emergency department almost daily for this discomfort. Patient denies any change in symptoms but still states that she remains to be constipated. She does state that she took some MiraLAX powder which increased cramping but did not help have bowel movement or decrease discomfort. She does state that she took Motrin earlier this morning but has not taken any other pain control since. Abdomen is soft with diffuse tenderness, hypoactive bowel sounds but bowel sounds were present in all yen, no CVA tenderness, otherwise unremarkable examination. Review of previous records shows concern for constipation but otherwise patient has had CT imaging and labs performed with no emergent findings noted. Given that patient is stating no change in symptoms but just more continued symptoms and I feel some aspect of anxiety I do not feel that any CT imaging is warranted at this time b ut reassessment of labs and plain film imaging of the abdomen is warranted. Pending results patient given ketorolac and fluids Review of labs does show continued elevation of LFTs otherwise no leukocytosis, radiological imaging shows no acute thoracic pathology and nonobstructive bowel gas pattern with evidence of chronic constipation, and urine with no signs of infection and otherwise nondiagnostic. Patient reassessed and states improvement of symptoms and is significantly more comfortable. Given patient stating pain as cramping and spasms and otherwise dull ache with no other worrisome findings patient was given single dose of Bentyl and suppository for concern of abdominal pain and being secondary to her chronic constipation. Patient stated that she would prefer to take suppository at home and otherwise given that she is improved that she would prefer to go home compared to waiting for any resolved constipation in the emergency department. Given that patient is improving I feel this is reasonable. Return precautions were discussed. Patient was informed of continued elevated LFTs which she should follow-up with her primary care for given that she does have history of hepatitis C. After discussion of diagnosis and plan of care patient has no further needs, questions, or concerns and states clear understanding to return to the emergency department for any worsening symptoms. HPI General Date/Time Provider Initiated Documentation: 01/28/19 19:03 . Limitations to Documentation: no limitations . Information obtained by: patient, RN notes reviewed and old records reviewed . History of Present Illness 28 year old F presents to the emergency department with the chief complaint of abd pain, described as severe and similar to prior episodes, Quality is described as aching, sharp and other (cramping), and is localized to the abdomen (difuse). Patient started experiencing this day(s) (2) and it has been constant (no change). No relieving factors improve symptom(s), No exacerbating factors reported . Related Data Home Medications Medication Instructions Recorded Confirmed gabapentin 300 mg PO TID 01/05/19 01/30/19 hydroxyzine HCl 50 mg PO BID PRN 01/05/19 01/30/19 methadone 105 mg PO DAILY 01/05/19 01/30/19 polyethylene glycol 3350 [Miralax] 17 gm PO DAILY PRN #10 each 01/26/19 01/30/19 promethazine 12.5 mg PO Q6H PRN #6 tab 01/26/19 01/30/19 promethazine 25 mg PO Q6H PRN #30 tab 01/28/19 01/28/19 Previous Rx's Medication Instructions Recorded polyethylene glycol 3350 [Miralax] 17 gm PO DAILY PRN #10 each 01/26/19 promethazine 12.5 mg PO Q6H PRN #6 tab 01/26/19 promethazine 25 mg PO Q6H PRN #30 tab 01/28/19 Allergies Allergy/AdvReac Type Severity Reaction Status Date / Time No Known Allergies Allergy Unverified 01/28/19 19:11 General Stated Complaint: Abd Prob PATRICIA: 3 Review of Systems Constitutional Denies chills, Denies fever(s) and Reports poor appetite Cardiovascular Denies chest pain and Denies dyspnea Respiratory Denies cough and Denies dyspnea Gastrointestinal Reports as per HPI, Reports abdominal pain, Denies melena, Denies change in bowel habits, Denies constipation, Denies diarrhea, Reports nausea and Denies vomiting Genitourinary Denies hematuria, Denies urinary incontinence, Denies urinary hesitancy and Denies urinary urgency Integumentary/Breasts Denies rash PFSH Medical History Endocarditis (Acute) Anxiety (Chronic) Bipolar disorder (Chronic) GERD (gastroesophageal reflux disease) (Chronic) Hepatitis C (Chronic) Obesity (Chronic) Surgical History History of heart valve replacement (Chronic) Social History Smoking/Tobacco Use Status: Current-Occasional Alcohol Intake: never Drug use: Current Sobriety Substance use type: former substance user and marijuana Do you feel safe at home: Yes Do you feel safe in your relationship?: Yes Exam Const General: cooperative Orientation: alert, awake and oriented x3 Resp Effort & Inspection: normal respiratory effort and able to speak in complete sentences Auscultation: clear to auscultation bilaterally Cardio Rate: regular rate Rhythm: regular rhythm Heart Sounds: S1 normal and S2 normal GI Palpation: soft, no hepatosplenomegaly, not firm, no guarding, no masses, no pulsatile masses, not rigid, no splenomegaly and tender (difuse) not at McBurney's point, not periumbilically, Spear's sign negative and Rovsing's sign negative Auscultation: normal bowel sounds Back/Spine/Pelvis Back: no CVA tenderness Neuro General: alert, awake, oriented x3, gait normal and moves all extremities Course Vital Signs Temperature 36.8 C 01/28/19 19:05 Pulse 80 01/28/19 19:05 Respiratory Rate 18 01/28/19 19:05 Blood Pressure 135/77 01/28/19 19:05 Pulse Oximetry 97 01/28/19 19:05 Temperature 36.8 C 01/28/19 19:05 Temperature Source Skin 01/28/19 19:05 Pulse 80 01/28/19 19:05 Respiratory Rate 18 01/28/19 19:05 Respiratory Effort Non-Labored 01/28/19 19:10 Blood Pressure 135/77 01/28/19 19:05 Blood Pressure Position Sitting 01/28/19 19:05 Pulse Oximetry 97 01/28/19 19:05 Oxygen Delivery Method Room Air 01/28/19 19:05 Oxygen Flow Rate 0 01/28/19 19:05 Pain Level 9 01/28/19 20:10
[2019-01-28 20:18] LABS: Abs Immature Grans 0.02 k/cumm (0.0-0.09); Absolute Basophil Count 0.03 k/cumm (0.0-0.2); Absolute Eosinophil Count 0.07 k/cumm (0.0-0.7); Absolute Lymphocyte Count 1.07 k/cumm (1.2-3.4); Absolute Monocyte Count 0.37 k/cumm (0.11-0.7); Absolute Neutrophil Count 6.08 k/cumm (1.2-6.7); Basophils % 0.4; Eosinophils % 0.9; HCT 38.5 % (36.0-46.0); HGB 12.7 g/dL (12.0-15.5); Immature Grans % 0.3; Mean Corpuscular Hemoglobin 28.2 pg (27.0-33.0); Mean Corpuscular Volume 85.6 fL (80-95); Mean Platelet Volume 10.3 fL (8.0-11.0); Monocytes % 4.8; Neutrophils % 79.6; Platelet Count 287 x1000/uL (130-400); RBC Distribution Width 14.9 % (11.7-14.6); White Blood Cell Count 7.64 k/cumm (4.4-10.8)
[2019-01-28 20:34] LABS: Bilirubin Large (Negative); Blood Negative (Negative); Clarity Clear; Glucose Negative (Negative); Ketones Trace mg/dL (Negative); Leukocyte Esterase Negative (Negative); Nitrite Negative (Negative); Specific Gravity 1.015 (1.005-1.025)
[2019-01-28 20:36] LABS: ALT 265 U/L (12-78); AST 148 U/L (15-37); Albumin 3.6 g/dL (3.4-5.0); Alkaline Phosphatase 273 U/L (46-116); Anion Gap 10.9 mmol/L (3-11); BUN 7 mg/dL (7-18); Bilirubin, Total 6.4 mg/dL (0.2-1.0); CO2 26.1 mmol/L (21.0-32.0); CREATININE 0.82 mg/dL (0.55-1.02); Calcium 8.9 mg/dL (8.5-10.1); Chloride 102 mmol/L (98-107); Glucose 90 mg/dL (70-100); Lipase 55 U/L (73-393); Magnesium 1.9 mg/dL (1.8-2.4); Potassium 3.7 mmol/L (3.5-5.1); Sodium 139 mmol/L (136-145); Total Protein 7.7 g/dL (6.4-8.2)
--- NOTE | 2019-01-28 20:41 | DI.VRAD_ITS ---
EXAM: XR Abdomen 2 Views with XR Chest 1 View EXAM DATE/TIME: 01/28/2019 7:57 PM CLINICAL HISTORY: 28 years old, female; Signs and symptoms; Abdominal tenderness and constipation and nausea and vomiting TECHNIQUE: Imaging protocol: XR of the abdomen (2 views) with XR chest (1 view). COMPARISON: CR XR CHEST 2V PA LATERAL 01/26/2019 10:39 AM FINDINGS: Lungs: Lungs are clear. Pleural space: Normal. No pneumothorax. Heart/Mediastinum: Cardiac mediastinal silhouette is normal in size and configuration. Gastrointestinal tract: Nonobstructive bowel gas pattern with distal rectal air present. There is a significant amount of fecal material seen throughout the colon colostomies in with constipation. Intraperitoneal space: No abnormal calcification or mass effect is appreciated. Bones/joints: Sternotomy wires are aligned and in place. No acute skeletal abnormality. Soft tissues: Normal. IMPRESSION: 1. No acute thoracic pathology. 2. Nonobstructive bowel gas pattern with evidence of chronic constipation. Dictated and Authenticated by: Amilcar Amaya MD. Ordering:SUE Hall MD
[2019-01-28 21:00] VITALS: BP 127/78; PULSE 69; RESP 18; O2SAT 97
[2019-01-28] MEDS: Bisacodyl 10 MG SUPP PR (21:58)
[2019-01-28] MEDS: Dicyclomine 10 MG CAP PO (21:58)
== END 2019-01-28 22:26 | disposition home or self-care (01) ==
PROVIDERS: Emergency Provider Nurse Practitioner Family; PCP Nurse Practitioner Family
DX: R10.9 Unspecified abdominal pain (principal); K59.00 Constipation, unspecified; R94.5 Abnormal results of liver function studies; R11.2 Nausea with vomiting, unspecified; Z95.2 Presence of prosthetic heart valve
CPT/HCPCS: 36415; 80053; 83690; 96361; 96374; 99284; 74022; 81003; 83735; 85025; J1885

== ENCOUNTER 2019-01-29 19:47 | Emergency (ER) | payer MEDICAID, SELFPAY ==
[2019-01-29] VITALS (10 sets, daily range): BP systolic 132–141; BP diastolic 85–87; PULSE 57–76; RESP 16–20; TEMP 36.7; O2SAT 96–100
--- NOTE | 2019-01-29 20:07 | ED.GENADUL_ITS ---
Discharge Plan Disposition Patient Disposition: HOME Condition: Improving Discharge Details Chief Complaint: Abd Prob Clinical Impression: Obstructive hyperbilirubinemia Primary Care Provider: Linda Gunn ED Provider: Joe Parker Home Meds and New Rx's Prescriptions: No Action promethazine 25 mg tablet 25 mg PO Q6H PRN (Reason: nausea and vomiting) Qty: 30 RF: 0 hydroxyzine HCl 50 mg Tablet 50 mg PO BID PRNRF: 0 gabapentin 300 mg Capsule 300 mg PO TID RF: 0 methadone 10 MG/ML concentrate 105 mg PO DAILY RF: 0 promethazine 12.5 mg tablet 12.5 mg PO Q6H PRN (Reason: nausea and vomiting) Qty: 6 RF: 0 polyethylene glycol 3350 [Miralax] 17 gram powder in packet 17 gm PO DAILY PRN (Reason: constipation) Qty: 10 RF: 0 Medical Decision Making 28-year-old female presents with right-sided abdominal pain since this past . Fourth visit. Patient seen in the emergency department on January 26-, twice on the . CT scan from the was unremarkable with exception of left ovarian cyst. Labs earlier today were fairly unremarkable, but were notable for total bili 6.4 and elevated AST and ALT. The patient is a former IV drug user with a history of hepatitis C as well as endocarditis. Arrives approximate 8 PM, temp 36.7, pulse 76, blood pressure 132/85. 100% room air sat. She is tender in the right upper quadrant her exam is otherwise no table for mild scleral icterus. Labs reveal an elevated total bilirubin of 7.3. AST 91, ALT 186, alk phos 263. White blood cell count is normal at 7, hematocrit 36, platelets 267. Note of normal transaminases and bilirubin on 01/26. No note of biliary dilatation on CT 01/26. CT with evidence of biliary dilatation and cholelithiasis. Concern for choledocholithiasis and potential need for ERCP. Case discussed with on-call gastroenterology at [facility], Dr Alvarenga. He agrees with need for possible ERCP and therefore indication for transfer. Patient accepted to the hospitalist service. Lab Data Lab results reviewed: Yes I reviewed the patient's lab results. Laboratory Results - last 24 hr 01/29/19 01/29/19 01/29/19 21:15 21:15 21:31 WBC 7.54 RBC 4.24 Hgb 12.3 Hct 36.0 MCV 84.9 MCH 29.0 MCHC 34.2 RDW 14.5 Plt Count 267 MPV 10.7 Immature Gran % 0.3 Neutrophils % 76.5 Lymphocytes % 17.6 Monocytes % 4.1 Eosinophils % 1.1 Basophils % 0.4 Absolute Neutrophils 5.77 Absolute Lymphocytes 1.33 Absolute Monocytes 0.31 Absolute Eosinophils 0.08 Absolute Basophils 0.03 Sodium 137 Potassium 3.1 L Chloride 102 Carbon Dioxide 22.7 Anion Gap 12.3 H BUN 7 Creatinine 0.73 Estimated GFR/1.73 m2 >= 60.00 Glucose 79 Calcium 8.8 Magnesium 1.7 L Total Bilirubin 7.3 H AST 91 H ALT 186 H Alkaline Phosphatase 263 H Total Protein 7.3 Albumin 3.4 Lipase 52 L Urine Color Dark yellow Urine Clarity Clear Urine pH 7.0 Ur Specific [place] 1.015 Urine Protein Negative Urine Ketones 40 H Urine Blood Negative Urine Nitrite Negative Urine Bilirubin Large H Urine Urobilinogen 0.2 Ur Leukocyte Esterase Negative Urine Glucose Negative HPI General Mode of arrival: ambulatory . Date/Time Provider Initiated Documentation: 01/29/19 19:54 . Limitations to Documentation: no limitations . Information obtained by: patient and family . History of Present Illness 28 year old F presents to the emergency department with the chief complaint of Abdominal pain, recurrent, fourth visit, described as moderate, Quality is described as dull and constant, and is localized to the abdomen and right. Patient reports no radiation. Patient started experiencing this day(s) and it has been constant. No relieving factors improve symptom(s), No exacerbating factors reported . Patient notes loss of appetite and nausea/vomiting. Patient did receive the following treatments prior to arrival, other (Antiemetics and suppository, enemas) Related Data Home Medications Medication Instructions Recorded Confirmed gabapentin 300 mg PO TID 01/05/19 01/28/19 hydroxyzine HCl 50 mg PO BID PRN 01/05/19 01/28/19 methadone 105 mg PO DAILY 01/05/19 01/28/19 polyethylene glycol 3350 [Miralax] 17 gm PO DAILY PRN #10 each 01/26/19 01/28/19 promethazine 12.5 mg PO Q6H PRN #6 tab 01/26/19 01/28/19 promethazine 25 mg PO Q6H PRN #30 tab 01/28/19 01/28/19 Previous Rx's Medication Instructions Recorded polyethylene glycol 3350 [Miralax] 17 gm PO DAILY PRN #10 each 01/26/19 promethazine 12.5 mg PO Q6H PRN #6 tab 01/26/19 promethazine 25 mg PO Q6H PRN #30 tab 01/28/19 Allergies Allergy/AdvReac Type Severity Reaction Status Date / Time No Known Allergies Allergy Unverified 01/28/19 19:11 General Stated Complaint: Abd Prob PATRICIA: 3 Review of Systems Review of Systems 8 systems reviewed and otherwise negative. Large bowel movement today. Rash on arms and legs [facility] Medical History Endocarditis (Acute) Anxiety (Chronic) Bipolar disorder (Chronic) GERD (gastroesophageal reflux disease) (Chronic) Hepatitis C (Chronic) Obesity (Chronic) Surgical History History of heart valve replacement (Chronic) Social History Smoking/Tobacco Use Status: Current-Occasional Alcohol Intake: never Drug use: Current Sobriety Substance use type: former substance user and marijuana Do you feel safe at home: Yes Do you feel safe in your relationship?: Yes Exam Narrative Exam Narrative: GEN: awake, alert, oriented 3. Pleasant, well groomed, interactive. HEAD: Normocephalic, atraumatic ENT: Mucous membranes moist, oropharynx unremarkable, External ear exam unremarkable EYES: Sclera slightly icteric PERRL, EOMI NECK: Full ROM, no DANA, no menigismus CHEST/RESP: Nontender, clear to auscultation bilateral, no wheeze/rhonchi/rales CARDIOVASCULAR: RRR, no murmur, rub esme. 2+ Rad pulse bilateral ABDOMEN: Soft, tender overlying right mid to upper quadrants, no mass. +Bowel sounds EXT: Full ROM, no edema, few urticarial blanching raised erythematous lesions on arms and legs Neuro: Grossly normal neurologic exam, conversant, interactive. Psych: Speech fluent, thoughts congruent, affect anxious Course Vital Signs Temperature 36.7 C 01/29/19 19:55 Pulse 76 01/29/19 19:55 Respiratory Rate 20 01/29/19 19:55 Blood Pressure 132/85 01/29/19 19:55 Pulse Oximetry 100 01/29/19 19:55 Temperature 36.7 C 01/29/19 19:55 Temperature Source Skin 01/29/19 19:55 Pulse 76 01/29/19 19:55 Respiratory Rate 20 01/29/19 19:55 Respiratory Effort Non-Labored 01/29/19 20:03 Blood Pressure 132/85 01/29/19 19:55 Blood Pressure Position Sitting 01/29/19 19:55 Pulse Oximetry 100 01/29/19 19:55 Oxygen Delivery Method Room Air 01/29/19 19:55 Oxygen Flow Rate 0 01/29/19 19:55 Pain Level 10 01/29/19 19:55
[2019-01-29] MEDS: Normal Saline 1,000 ML 1000 ML IV (21:05)
[2019-01-29] MEDS: Ondansetron 4 MG/2 ML VIAL IVP (21:06)
[2019-01-29] MEDS: diazePAM 10 MG/2 ML SYR 5 MG IVP (21:06)
[2019-01-29] MEDS: Ketorolac 15 MG/ML VIAL IVP (21:07)
[2019-01-29 21:21] LABS: Abs Immature Grans 0.02 k/cumm (0.0-0.09); Absolute Basophil Count 0.03 k/cumm (0.0-0.2); Absolute Eosinophil Count 0.08 k/cumm (0.0-0.7); Absolute Lymphocyte Count 1.33 k/cumm (1.2-3.4); Absolute Monocyte Count 0.31 k/cumm (0.11-0.7); Absolute Neutrophil Count 5.77 k/cumm (1.2-6.7); Basophils % 0.4; Eosinophils % 1.1; HGB 12.3 g/dL (12.0-15.5); Immature Grans % 0.3; Lymphocytes % 17.6; Mean Corp. HGB Concentration 34.2 g/dL (32.0-36.0); Mean Corpuscular Volume 84.9 fL (80-95); Mean Platelet Volume 10.7 fL (8.0-11.0); Monocytes % 4.1; Neutrophils % 76.5; Platelet Count 267 x1000/uL (130-400); RBC 4.24 m/cumm (4.00-5.20); RBC Distribution Width 14.5 % (11.7-14.6); White Blood Cell Count 7.54 k/cumm (4.4-10.8)
[2019-01-29 21:36] LABS: Bilirubin Large (Negative); Blood Negative (Negative); Clarity Clear; Glucose Negative (Negative); Ketones 40 mg/dL (Negative); Leukocyte Esterase Negative (Negative); Nitrite Negative (Negative); Specific Gravity 1.015 (1.005-1.025); Urobilinogen 0.2 EU/dL (Up TO 0.2)
[2019-01-29 21:40] LABS: ALT 186 U/L (12-78); AST 91 U/L (15-37); Albumin 3.4 g/dL (3.4-5.0); Alkaline Phosphatase 263 U/L (46-116); Anion Gap 12.3 mmol/L (3-11); BUN 7 mg/dL (7-18); Bilirubin, Total 7.3 mg/dL (0.2-1.0); CO2 22.7 mmol/L (21.0-32.0); CREATININE 0.73 mg/dL (0.55-1.02); Calcium 8.8 mg/dL (8.5-10.1); Chloride 102 mmol/L (98-107); Glucose 79 mg/dL (70-100); Lipase 52 U/L (73-393); Magnesium 1.7 mg/dL (1.8-2.4); Potassium 3.1 mmol/L (3.5-5.1); Sodium 137 mmol/L (136-145); Total Protein 7.3 g/dL (6.4-8.2)
[2019-01-29 22:02] LABS: Prothrombin Time 9.9 sec (9.3-11.0)
[2019-01-29] MEDS: Omnipaque 350 MG/ML 100 ML BTL IJ (22:39)
--- NOTE | 2019-01-29 22:47 | DI.CT_ITS ---
SYMPTOMS/DIAGNOSIS: RUQ PAIN,RISING BILIRUBIN CT SCAN OF THE ABDOMEN AND PELVIS: CT scan of the abdomen and pelvis was performed following the uneventful administration of intravenous contrast material. There are atelectatic changes seen in the lung bases. The liver is normal in size. No hepatic mass is seen. The portal, superior mesenteric and splenic veins are patent. There do appear to be stones in the gallbladder. There is dilatation of the common duct to 1.4 cm. There does appear to be mild intrahepatic bile duct dilatation. No pericholecystic fluid or gallbladder wall thickening is seen. There does appear to be some sludge within the gallbladder. The pancreas, spleen and adrenal glands are unchanged. There is again seen a cyst in the left kidney. No evidence of obstructive uropathy is seen. The urinary bladder is intact. There is again seen a left adnexal cyst. The reproductive organs are otherwise unremarkable. The bowel shows no evidence of obstruction or inflammation. No findings to suggest an acute appendicitis are present. No significant abdominal or pelvic adenopathy, ascites or pneumoperitoneum is seen. There is a fat containing umbilical hernia. The aorta is of normal caliber. Note is made of a retroaortic left renal vein. No acute osseous abnormality is identified. IMPRESSION: 1. Cholelithiasis. Gallbladder sludge. Gallbladder ultrasound is recommended for further evaluation. Biliary ductal dilatation is present. 2. Stable left adnexal cyst.
--- NOTE | 2019-01-29 23:29 | DI.VRAD_ITS ---
EXAM: CT Abdomen and Pelvis With Contrast EXAM DATE/TIME: 01/29/2019 9:50 PM CLINICAL HISTORY: 28 years old, female; Abdominal pain; Localized; Right upper quadrant (ruq); Patient HX: Ruq pain, rising bilirubin TECHNIQUE: Imaging protocol: Axial computed tomography images of the abdomen and pelvis with intravenous contrast. Coronal and sagittal reformatted images were created and reviewed. Radiation optimization: All CT scans at this facility use at least one of these dose optimization techniques: automated exposure control; mA and/or kV adjustment per patient size (includes targeted exams where dose is matched to clinical indication); or iterative reconstruction. Contrast material: OMNI 350; Contrast volume: 100 ml; Contrast route: IV; COMPARISON: CT Abdomen^ROUTINE ABDOMEN PELVIS WITH CONTRAST (Adult) 01/26/2019 10:29 AM FINDINGS: Lungs: Minimal atelectasis/scarring in the lung bases. Heart: Status post mitral valve replacement. ABDOMEN: Liver: Normal. No mass. Gallbladder and bile ducts: Cholelithiasis. The common bile duct is dilated with mild intrahepatic biliary dilatation. No visualized choledocholithiasis. A small obstructing stone near the ankle is not excluded however. Pancreas: Normal. No ductal dilation. Spleen: Normal. No splenomegaly. Adrenals: Normal. No mass. Kidneys and ureters: A tiny left renal cyst appears similar to the prior study. No hydronephrosis or stones. Stomach and bowel: Normal. No obstruction. No mucosal thickening. Appendix: No evidence of appendicitis. PELVIS: Bladder: Unremarkable as visualized. Reproductive: Similar appearance of a left adnexal cyst measuring up to 3.4 cm. ABDOMEN and PELVIS: Intraperitoneal space: Normal. No free air. No significant fluid collection. Bones/joints: Sternal wires consistent with previous sternotomy incision. Soft tissues: Redemonstration of a fat containing umbilical hernia. Vasculature: Normal. No abdominal aortic aneurysm. Lymph nodes: Normal. No enlarged lymph nodes. IMPRESSION: 1. Biliary dilatation. Given provided history this is suggestive of a biliary obstructive process. 2. Cholelithiasis. 3. Redemonstrated left adnexal cyst. Dictated and Authenticated by: Sean Bui MD. Ordering:LEV Diaz MD
[2019-01-30] VITALS (20 sets, daily range): BP systolic 99–160; BP diastolic 29–114; PULSE 57–92; O2SAT 93–100
[2019-01-30] MEDS: Ketorolac 15 MG/ML VIAL IVP (02:10)
[2019-01-30] MEDS: POTASSIUM CHLORIDE/0.9% NACL 1,000 ML 100 MEQ IV (02:12)
--- NOTE | 2019-01-30 02:26 | NUR.NOTE ---
Nursing Note: resting quietly post medication, pain decreased. taking ice chips po tolerating
--- NOTE | 2019-01-31 12:24 | PDOC.ERCMPRO ---
Care Management Progress Note 01/31-Dr. Haro requested assistance with a PCP (Velia) f/u in one week for abdominal pain. Referral faxed to [facility] this am.
[2019-02-01 11:49] LABS: HBs Antibody, Qual Positive; HBs Antibody, Quant 12.5 mIU/mL; Hepatitis B Core Antibody Negative (NEGAT); Hepatitis B surface Ag Negative (NEGAT); Hepatitis C Ab w Rflx HCV PCR SEE COMMENTS (NEGAT)
[2019-02-01 16:00] LABS: HCV RNA Detection Quantitative Undetected IU/mL (UNDECT)
== END 2019-01-30 03:01 | disposition home or self-care (01) ==
PROVIDERS: Emergency Provider Emergency Medicine; PCP Nurse Practitioner Family
DX: K80.01 Calculus of gallbladder with acute cholecystitis with obstruction (principal); R17 Unspecified jaundice; R74.0 Nonspecific elevation of levels of transaminase and lactic acid dehydrogenase [LDH]; F11.21 Opioid dependence, in remission; Z86.19 Personal history of other infectious and parasitic diseases
CPT/HCPCS: 36415; 80053; 81025; 83690; 86704; 86706; 86803; 87340; 96361; 96365; 96375; 96376; 99285; 74177; 81003; 83735; 85025; 85610; 87522; J1885; J2405; J3360; J3490

== ENCOUNTER 2019-04-13 12:23 | Emergency (ER) | payer MEDICAID, SELFPAY ==
[2019-04-13 12:32] VITALS: BP 148/97; PULSE 102; RESP 16; TEMP 36.8; O2SAT 97
--- NOTE | 2019-04-13 12:42 | W.ED.GENAD ---
Discharge Plan Disposition Patient Disposition: HOME Condition: Stable Discharge Details Chief Complaint: EarProblem Clinical Impression: Acute serous otitis media of right ear Primary Care Provider: Linda Gunn ED Provider: Rafael May Home Meds and New Rx's Prescriptions: New Flonase Sensimist 27.5 mcg/actuation spray,suspension 1 spray ISABELLE DAILY PRN (Reason: nasal congestion) Qty: 5.9 RF: 0 Continued promethazine 25 mg tablet 25 mg PO Q6H PRN (Reason: nausea and vomiting) Qty: 30 RF: 0 hydroxyzine HCl 50 mg Tablet 50 mg PO BID PRNRF: 0 gabapentin 300 mg Capsule 300 mg PO TID RF: 0 methadone 10 MG/ML concentrate 105 mg PO DAILY RF: 0 promethazine 12.5 mg tablet 12.5 mg PO Q6H PRN (Reason: nausea and vomiting) Qty: 6 RF: 0 polyethylene glycol 3350 [Miralax] 17 gram powder in packet 17 gm PO DAILY PRN (Reason: constipation) Qty: 10 RF: 0 Discharge Instructions Instructions: Serous Otitis Media (ED) Additional Instructions: Please use provided nasal steroid to see if this helps your symptoms. Return to the emergency department for any new or significant worsening of symptoms or if not improving please follow-up with your primary care provider for reassessment. Referrals: Linda Gunn [Primary Care Provider] - Discharge Data Discharge Date/Time-TO BE ENTERED AT DEPARTURE: 04/13/19 13:02 Medical Decision Making Patient presenting to the emergency department for chief complaint of right ear pain. Patient states that she felt there is some clear drainage out of her right ear yesterday. She does states she has had intermittent feeling of fluid in her ear since upper respiratory tract infection but that it cleared but now seems to have calmed back. Physical exam shows findings consistent with serous otitis media, there is no visualized perforation of the TM, it is intact, dull with clear fluid present behind it otherwise unremarkable physical exam. Plan to put patient on nasal steroids to see if this helps her symptoms otherwise patient to follow-up with primary care for reassessment. Return precautions discussed. After discussion of diagnosis and plan of care patient has no further needs, questions, or concerns and states clear understanding to return to the emergency department for any worsening symptoms. HPI General Mode of arrival: ambulatory. Date/Time Provider Initiated Documentation: 04/13/19 12:31. Limitations to Documentation: no limitations. Information obtained by: patient and RN notes reviewed. History of Present Illness 29 year old F presents to the emergency department with the chief complaint of Right ear pain, described as moderate, with intensity rated at 8. Quality is described as sharp, and is localized to the right (ear). Patient neck. Patient started experiencing this week(s) (1) and it has been intermittent. No relieving factors improve symptom(s), No exacerbating factors reported . Patient did receive the following treatments prior to arrival, none Related Data Home Medications Medication Instructions Recorded Confirmed gabapentin 300 mg PO TID 01/05/19 01/30/19 hydroxyzine HCl 50 mg PO BID PRN 01/05/19 01/30/19 methadone 105 mg PO DAILY 01/05/19 01/30/19 polyethylene glycol 3350 [Miralax] 17 gm PO DAILY PRN #10 each 01/26/19 01/30/19 promethazine 12.5 mg PO Q6H PRN #6 tab 01/26/19 01/30/19 promethazine 25 mg PO Q6H PRN #30 tab 01/28/19 01/28/19 fluticasone furoate [Flonase 1 spray ISABELLE DAILY PRN #5.9 ml 04/13/19 Sensimist] Previous Rx's Medication Instructions Recorded polyethylene glycol 3350 [Miralax] 17 gm PO DAILY PRN #10 each 01/26/19 promethazine 12.5 mg PO Q6H PRN #6 tab 01/26/19 promethazine 25 mg PO Q6H PRN #30 tab 01/28/19 fluticasone furoate [Flonase 1 spray ISABELLE DAILY PRN #5.9 ml 04/13/19 Sensimist] Allergies Allergy/AdvReac Type Severity Reaction Status Date / Time No Known Allergies Allergy Unverified 01/28/19 19:11 General Stated Complaint: EarProblem PATRICIA: 4 Review of Systems Constitutional Denies fever(s) and Denies headache(s) ENT Denies vertigo, Denies dizziness, Reports ear discharge, Reports otalgia, Denies headache(s), Denies nasal congestion, Denies nasal discharge and Denies sore throat Cardiovascular Denies chest pain Respiratory Reports cough Neurologic Denies vertigo, Denies dizziness and Denies headache(s) FOR[facility]LY [facility] Medical History Anxiety (Chronic) Bipolar disorder (Chronic) Endocarditis (Acute) GERD (gastroesophageal reflux disease) (Chronic) Hepatitis C (Chronic) Obesity (Chronic) Surgical History History of heart valve replacement (Chronic) Social History Smoking/Tobacco Use Status: Current-Occasional Alcohol Intake: never Drug use: Current Sobriety Substance use type: former substance user and marijuana Do you feel safe at home: Yes Do you feel safe in your relationship?: Yes Exam Const General: cooperative, no acute distress and not ill appearing Orientation: alert, awake and oriented x3 HENMT Head: normal to inspection, normocephalic and atraumatic Ears: hearing grossly normal bilaterally, external ears normal, TM normal on the left and TM abnormal dull on the right and with fluid behind the TM (clear) on the right; not bulging, not bullous, not with effusion, not erythematous, with no loss of landmarks and not perforated General nose exam: external nose normal Mouth: oral mucosae normal, lip normal, tongue normal and moist mucous membranes Throat: posterior oropharynx normal, tonsils normal and uvula midline Neck Neck: normal visual inspection, full ROM, no lymphadenopathy, no meningeal signs, trachea midline and supple Resp Effort & Inspection: normal respiratory effort, able to speak in complete sentences and no respiratory distress Auscultation: clear to auscultation bilaterally Cardio Rate: regular rate Rhythm: regular rhythm Heart Sounds: S1 normal and S2 normal Skin General skin exam: no rashes or lesions noted Neuro General: alert, awake, oriented x3, moves all extremities and no focal motor deficits Sensory Exam: no sensory deficits noted Course Vital Signs Temperature 36.8 C 04/13/19 12:32 Pulse 102 H 04/13/19 12:32 Respiratory Rate 16 04/13/19 12:32 Blood Pressure 148/97 H 04/13/19 12:32 Pulse Oximetry 97 04/13/19 12:32 Temperature 36.8 C 04/13/19 12:32 Temperature Source Temporal Artery Scan 04/13/19 12:32 Pulse 102 H 04/13/19 12:32 Respiratory Rate 16 04/13/19 12:32 Blood Pressure 148/97 H 04/13/19 12:32 Blood Pressure Position Sitting 04/13/19 12:32 Pulse Oximetry 97 04/13/19 12:32 Oxygen Delivery Method Room Air 04/13/19 12:32 Oxygen Flow Rate 0 04/13/19 12:32
[2019-04-13 12:56] VITALS: BP 115/93; PULSE 93; RESP 15; O2SAT 100
== END 2019-04-13 13:02 | disposition home or self-care (01) ==
PROVIDERS: Emergency Provider Nurse Practitioner Family; PCP Nurse Practitioner Family
DX: H65.01 Acute serous otitis media, right ear (principal)
CPT/HCPCS: 99283

== ENCOUNTER 2019-05-28 07:04 | Emergency (ER) | payer MEDICAID, SELFPAY ==
[2019-05-28 07:09] VITALS: BP 110/71; PULSE 94; RESP 18; TEMP 36.6; O2SAT 98
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
--- NOTE | 2019-05-28 07:21 | DI.CT_ITS ---
EXAM: CT HEAD WO CLINICAL HISTORY: head trauma. TECHNIQUE: A noncontrast enhanced examination was performed. FINDINGS: There is no evidence of an intra or extra-axial hemorrhage. There is no evidence of a mass. The murphy- white differentiation is maintained. The ventricles are unremarkable. There is no evidence of a skul l fracture. The paranasal sinuses are intact. There is no mastoid effusion. No soft tissue abnormali ty is seen. IMPRESSION: No evidence of an acute intracranial abnormality.
[2019-05-28] MEDS: Acetaminophen 500 MG TAB 1000 MG PO (07:29)
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
== END 2019-05-28 08:13 | disposition home or self-care (01) ==
PROVIDERS: Emergency Provider Physician Assistant; PCP Nurse Practitioner Family
DX: S06.0X0A Concussion without loss of consciousness, initial encounter (principal); J06.9 Acute upper respiratory infection, unspecified; Y04.0XXA Assault by unarmed brawl or fight, initial encounter
CPT/HCPCS: 87449; 99284; 70450

== ENCOUNTER 2019-09-11 04:44 | Emergency (ER) | payer MEDICAID, SELFPAY ==
[2019-09-11 04:44] VITALS: BP 113/89; PULSE 70; RESP 16; TEMP 36.5; O2SAT 99
[2019-09-11 04:49] VITALS: RESP 18
--- NOTE | 2019-09-11 04:54 | ED.GENADUL_ITS ---
Discharge Plan Disposition Patient Disposition: HOME Condition: Stable Discharge Details Chief Complaint: GenMedical Clinical Impression: Anxiety, Skin flushed Primary Care Provider: Linda Gunn ED Provider: Gil Haro Home Meds and New Rx's Prescriptions: Continued hydroxyzine HCl 50 mg Tablet 50 mg PO BID PRNRF: 0 gabapentin 300 mg Capsule 300 mg PO TID RF: 0 methadone 10 MG/ML concentrate 105 mg PO DAILY RF: 0 Flonase Sensimist 27.5 mcg/actuation spray,suspension 1 spray ISABELLE DAILY PRN (Reason: nasal congestion) Qty: 5.9 RF: 0 Discharge Instructions Additional Instructions: your blood work did not show any concerning findings. Part of your symptoms could be from your underlying anxiety follow up with your primary care provider within 1-2 weeks if you have high fevers, feel more ill or have difficulty breathing or rashes return to the emergency department Medical Decision Making 29 yo female with hx of prior endocarditis s/p valve replacement and has been clean for over 2 years, bipolar, anxiety, comes in after she woke up and felt flushed and was sweaty. She called ems and on arrival states she feels well and has no symptoms now, lasted about 10 minutes. Has had intermittent symptoms like this every few weeks since her surgery. She denies fevers, chest pain, n/v, abdominal pain, rashes. She has no rashes on exam, no abdominal tenderness. Unclear etiology of her symptoms, given they lasted so briefly and has no symptoms now suspect possible panic attack. Will monitor and obtain lab work to evaluate for anemia and electrolyte abnormalities. She had no chest pain or pressure no evidence of dvt on exam and no hypxoxia or tachycardia so doubt acs or pe. NO stigmata of endocarditis, no fevers so doubt endocarditis and pt denies recent drug use for 2 years pt started to become very agitated and could not sit still in the bed and was yelling, seemed to be having some type of panic attack. She declined to give a urine because she states we are just going to check for drugs using explicit terms. Will give IM ativan labs show no significant abnormalities, she is feeling better after ativan and remains hd stable. She is declining to give urine, denies uti symptoms and den ies any chance of . Will d/c home and have her f/u with pcp and return precautions given Differential Diagnosis Differential Diagnosis: panic attack, electrolyte abnormality, anemia Medical Records Medical records reviewed: Yes I reviewed the patient's medical records. Lab Data Lab results reviewed: Yes I reviewed the patient's lab results. ECG Data Attestation: I personally reviewed and interpreted this ECG (s) as follows: Prior ECG tracings: not available for review Interpretation: sinus rhythm, rate of 71, pr 232 qtc 454 HPI General Mode of arrival: EMS . Date/Time Provider Initiated Documentation: 09/11/19 04:48 . Limitations to Documentation: no limitations . History of Present Illness 29 year old F presents to the emergency department with the chief complaint of flushed, described as moderate, and it has been now resolved. No relieving factors improve symptom(s), No exacerbating factors reported . Patient did receive the following treatments prior to arrival, none Related Data Home Medications Medication Instructions Recorded Confirmed gabapentin 300 mg PO TID 01/05/19 09/11/19 hydroxyzine HCl 50 mg PO BID PRN 01/05/19 09/11/19 methadone 105 mg PO DAILY 01/05/19 09/11/19 Flonase Sensimist 1 spray ISABELLE DAILY PRN #5.9 ml 04/13/19 09/11/19 Previous Rx's Medication Instructions Recorded Flonase Sensimist 1 spray ISABELLE DAILY PRN #5.9 ml 04/13/19 Allergies Allergy/AdvReac Type Severity Reaction Status Date / Time No Known Allergies Allergy Unverified 09/11/19 04:48 General Stated Complaint: GenMedical PATRICIA: 4 Review of Systems All systems reviewed & are unremarkable except as noted in HPI and below Constitutional Constitutional: Denies chills and Denies fever(s) Cardiovascular Cardiovascular: Denies chest pain and Denies dyspnea Respiratory Respiratory: Denies cough and Denies dyspnea Gastrointestinal Gastrointestinal: Denies abdominal pain, Denies nausea and Denies vomiting Musculoskeletal Musculoskeletal: Denies joint swelling Psychiatric Psychiatric: Denies depression [facility] Social History Smoking/Tobacco Use Status: Current every day Alcohol Intake: never Drug use: Daily Substance use type: former substance user and marijuana Details: Doing THC tanks Do you feel safe at home: Yes Do you feel safe in your relationship?: Yes Exam Const General: no acute distress Orientation: alert HENMT Head: normal to inspection Ears: external ears normal General nose exam: external nose normal Mouth: moist mucous membranes Eyes General: appearance normal, both eyes and all related structures Neck Neck: normal visual inspection Resp Effort & Inspection: normal respiratory effort and able to speak in complete sentences Cardio Rate: regular rate GI Palpation: soft Skin General skin exam: no rashes or lesions noted Neuro General: alert and oriented x3 Extrem General: normal to inspection Psych Mental Status: mental status grossly normal Course Vital Signs Vital signs: Vital Signs Temperature 36.5 C 09/11/19 04:44 Pulse 70 09/11/19 04:44 Respiratory Rate 16 09/11/19 04:44 Blood Pressure 113/89 09/11/19 04:44 Pulse Oximetry 99 09/11/19 04:44 Temperature 36.5 C 09/11/19 04:44 Temperature Source Oral 09/11/19 04:44 Pulse 70 09/11/19 04:44 Respiratory Rate 18 09/11/19 04:49 Respiratory Effort Non-Labored 09/11/19 04:49 Respiratory Depth Normal 09/11/19 04:49 Respiratory Pattern Normal 09/11/19 04:49 Blood Pressure 113/89 09/11/19 04:44 Pulse Oximetry 99 09/11/19 04:44 Oxygen Delivery Method Room Air 09/11/19 04:44 Oxygen Flow Rate 0 09/11/19 04:44 Pain Level 0 09/11/19 04:44
[2019-09-11 05:14] LABS: BE (Venous) 0.1 mmol/L (-3-3); HCO3 (Venous) 24 mmol/L (22-28); O2 Sat (Venous) 97 % (70-80); TCO2 (Venous) 22 mmol/L (22-29); pCO2 (Venous) 37 mm/Hg (34-47); pH (Venous) 7.43 (7.32-7.43); pO2 (Venous) 84 mm/Hg (28-44)
[2019-09-11 05:19] LABS: Abs Immature Grans 0.05 k/cumm (0.0-0.09); Absolute Basophil Count 0.02 k/cumm (0.0-0.2); Absolute Eosinophil Count 0.17 k/cumm (0.0-0.7); Absolute Lymphocyte Count 2.64 k/cumm (1.2-3.4); Basophils % 0.2; Eosinophils % 1.4; HCT 42.6 % (36.0-46.0); Immature Grans % 0.4 %; Lymphocytes % 22.2; Mean Corp. HGB Concentration 32.9 g/dL (32.0-36.0); Mean Corpuscular Hemoglobin 28.6 pg (27.0-33.0); Mean Corpuscular Volume 87.1 fL (80-95); Mean Platelet Volume 9.8 fL (8.0-11.0); Monocytes % 3.4; Neutrophils % 72.4; Platelet Count 294 x1000/uL (130-400); RBC 4.89 m/cumm (4.00-5.20); RBC Distribution Width 14.9 % (11.7-14.6); White Blood Cell Count 11.91 k/cumm (4.4-10.8)
[2019-09-11 05:20] LABS: Absolute Neutrophil Count 8.62 k/cumm (1.2-6.7)
[2019-09-11] MEDS: LORazepam 2 MG/ML VIAL IM (05:34)
[2019-09-11 05:35] LABS: Bilirubin, Direct 0.08 mg/dL (0.00-0.20); Bilirubin, Total 0.2 mg/dL (0.2-1.0)
[2019-09-11 05:41] LABS: Prothrombin Time 9.9 sec (9.3-11.0)
[2019-09-11 05:43] LABS: ALT 19 U/L (14-59); AST 20 U/L (15-37); Albumin 3.5 g/dL (3.4-5.0); Alkaline Phosphatase 84 U/L (46-116); Anion Gap 12.9 mmol/L (3-11); BUN 11 mg/dL (7-18); Bilirubin, Total 0.2 mg/dL (0.2-1.0); CO2 25.1 mmol/L (21.0-32.0); CREATININE 0.83 mg/dL (0.55-1.02); Chloride 104 mmol/L (98-107); ETHANOL BLOOD < 3.0 mg/dL (<3); Glucose 132 mg/dL (74-106); Lipase 82 U/L (73-393); Magnesium 1.7 mg/dL (1.8-2.4); Potassium 3.7 mmol/L (3.5-5.1); Sodium 142 mmol/L (136-145); TSH (W/Ref FT4) 3.68 uIU/mL (0.36-3.74); Total Protein 7.6 g/dL (6.4-8.2)
[2019-09-11 05:45] LABS: Troponin I < 0.05 ng/Ml (<0.06)
[2019-09-11 06:05] VITALS: BP 113/89; PULSE 70; RESP 18; TEMP 36.5; O2SAT 99
== END 2019-09-11 06:10 | disposition home or self-care (01) ==
PROVIDERS: Emergency Provider Emergency Medicine; PCP Nurse Practitioner Family
DX: F41.9 Anxiety disorder, unspecified (principal); R23.2 Flushing; F10.21 Alcohol dependence, in remission; Z53.29 Procedure and treatment not carried out because of patient's decision for other reasons; Z95.2 Presence of prosthetic heart valve
CPT/HCPCS: 36415; 80053; 82805; 83690; 93005; 96372; 99284; 80320; 82247; 82248; 83735; 84443; 84484; 85025; 85610; 85730; 93010; J2060

== ENCOUNTER 2020-01-18 06:31 | Emergency (ER) | payer MEDICAID, SELFPAY ==
[2020-01-18 06:32] VITALS: BP 144/75; PULSE 77; RESP 18; TEMP 36.8; O2SAT 100
[2020-01-18 06:38] VITALS: RESP 18
--- NOTE | 2020-01-18 06:41 | W.ED.GENAD ---
Discharge Plan Disposition Patient Disposition: OTHER Condition: Stable Discharge Details Chief Complaint: GenMedical Clinical Impression: Panic attack Primary Care Provider: Linda Gunn ED Provider: Gil Haro Home Meds and New Rx's Prescriptions: No Action gabapentin 300 mg Capsule 300 mg PO TID RF: 0 methadone 10 MG/ML concentrate 105 mg PO DAILY RF: 0 Flonase Sensimist 27.5 mcg/actuation spray,suspension 1 spray ISABELLE DAILY PRN (Reason: nasal congestion) Qty: 5.9 RF: 0 Medical Decision Making 29 yo female with prior history of substance abuse and IVDU with endocarditits in 2018 and no drug use since per patient, anxiety, bipolar, gerd, hepatitis C, who recently foud out she is less than 6 weeks and is scheduled for Wednesday per patient, comes in with EMS with a year of episodes where she wakes up feeling hot and anxious with nausea and lasts less than an hour. Denies any fevers, chills, chest pain, abdominal pain, vaginal bleeding. She is sweating and won't stop moving in the bed. Has no focal deficits, speaking fast but clear speech, no murmurs, no janeway lesions or other findings to suggest endocarditis. She appears to be having a panic attack.I advised since she is normally don't give ativan but she states she is terminating the so is requesting ativan so will treat with this. patient denies si/hi patient calmed a few minutes after ativan then eloped from the ED. She had capacity to make her own decisions on initial eval so do not feel callback rqeuired at this time. Differential Diagnosis Differential Diagnosis: anxiety, withdrawal, panic attack HPI General Mode of arrival: EMS. Date/Time Provider Initiated Documentation: 01/18/20 06:40. Limitations to Documentation: no limitations. Information obtained by: patient. History of Present Illness 29 year old F presents to the emergency department with the chief complaint of hot flashes, described as moderate, and it has been intermittent. No relieving factors improve symptom(s), No exacerbating factors reported . Patient did receive the following treatments prior to arrival, none Related Data Home Medications Medication Instructions Recorded Confirmed gabapentin 300 mg PO TID 01/05/19 01/18/20 methadone 105 mg PO DAILY 01/05/19 01/18/20 Flonase Sensimist 1 spray ISABELLE DAILY PRN #5.9 ml 04/13/19 01/18/20 Previous Rx's Medication Instructions Recorded Flonase Sensimist 1 spray ISABELLE DAILY PRN #5.9 ml 04/13/19 Allergies Allergy/AdvReac Type Severity Reaction Status Date / Time No Known Allergies Allergy Unverified 01/18/20 06:36 General Stated Complaint: GenMedical PATRICIA: 3 Review of Systems All systems reviewed & are unremarkable except as noted in HPI and below Constitutional Constitutional: Denies chills, Denies fever(s) and Denies weakness Cardiovascular Cardiovascular: Denies chest pain and Denies dyspnea Respiratory Respiratory: Denies cough and Denies dyspnea Gastrointestinal Gastrointestinal: Denies abdominal pain Musculoskeletal Musculoskeletal: Denies joint swelling Neurologic Neurologic: Denies weakness Psychiatric Psychiatric: Denies depression [facility] Social History Smoking/Tobacco Use Status: Current every day Alcohol Intake: never Drug use: Daily Substance use type: former substance user and marijuana Details: Doing THC tanks Do you feel safe at home: Yes Do you feel safe in your relationship?: Yes Exam Const General: anxious Orientation: alert HENMT Head: normal to inspection Ears: external ears normal General nose exam: external nose normal Mouth: moist mucous membranes Eyes General: appearance normal, both eyes and all related structures Neck Neck: normal visual inspection Resp Effort & Inspection: normal respiratory effort and able to speak in complete sentences Cardio Rate: regular rate Skin General skin exam: no rashes or lesions noted Neuro General: patient alert and patient oriented x3 Extrem General: normal to inspection Course Vital Signs Vital signs: Vital Signs Temperature 36.8 C 01/18/20 06:32 Pulse 77 01/18/20 06:32 Respiratory Rate 18 01/18/20 06:32 Blood Pressure 144/75 H 01/18/20 06:32 Pulse Oximetry 100 01/18/20 06:32 Temperature 36.8 C 01/18/20 06:32 Temperature Source Temporal Artery Scan 01/18/20 06:32 Pulse 77 01/18/20 06:32 Respiratory Rate 18 01/18/20 06:32 Blood Pressure 144/75 H 01/18/20 06:32 Pulse Oximetry 100 01/18/20 06:32 Oxygen Delivery Method Room Air 05/14/20 06:32 Oxygen Flow Rate 0 05/14/20 06:32 Pain Level 10 01/18/20 06:32
[2020-01-18] MEDS: LORazepam 1 MG TAB 2 MG PO (06:53)
--- NOTE | 2020-01-18 06:54 | NUR.NOTE ---
Nursing Note: Patient agitated that she was getting PO Ativan and not a shot. Patient's behaviors are very similar to previous visits with high anxiety and demanding behaviors. Patient yelling at staff to do something. After MD announced he was discharging her, patient demanded we find her a ride. Advised that she could use the [facility] bus which she frequents. Patient then walked out of the unit stating this is bullshit putting a jacket over her alex and leaving. MD aware that patient eloped.
== END 2020-01-18 06:55 | disposition other institution (70) ==
PROVIDERS: Emergency Provider Emergency Medicine; PCP Nurse Practitioner Family
DX: F41.0 Panic disorder [episodic paroxysmal anxiety] (principal); R23.2 Flushing; Z3A.01 Less than 8 weeks gestation of pregnancy; O99.331 Smoking (tobacco) complicating pregnancy, first trimester; Z53.29 Procedure and treatment not carried out because of patient's decision for other reasons; F17.210 Nicotine dependence, cigarettes, uncomplicated
CPT/HCPCS: 99283

== ENCOUNTER 2020-01-19 18:32 | Emergency (ER) | payer MEDICAID, SELFPAY ==
--- NOTE | 2020-01-19 18:26 | ED.GENADUL_ITS ---
Discharge Plan Disposition Patient Disposition: HOME Condition: Good Discharge Details Chief Complaint: Nausea/Vomit/Diar Clinical Impression: Chronic nausea Primary Care Provider: Linda Gunn ED Provider: Merary Foreman Home Meds and New Rx's Prescriptions: New promethazine 25 mg tablet 25 mg PO Q6H PRN (Reason: nausea and vomiting) Qty: 7 RF: 0 Continued gabapentin 300 mg Capsule 300 mg PO TID RF: 0 methadone 10 MG/ML concentrate 105 mg PO DAILY RF: 0 Discharge Instructions Instructions: Promethazine (By mouth), Acute Nausea and Vomiting (ED) Additional Instructions: Encourage water intake. You may use use Phenergan as prescribed to help with any recurrent nausea or vomiting. You may use 1 tab every 6 hours as needed for symptom management. You have been sent home with #4 tabs. Please follow-up with your primary care next week for reevaluation and to discuss your chronic symptoms. Please discuss your chronic symptoms with [facility] further discuss potential changes in your methadone dosing. If you develop new or worsening symptoms please seek care urgently once again. Referrals: Linda Gunn [Primary Care Provider] - Medical Decision Making Patient is a 29-year-old female presenting today with chief complaint of diaphoresis, nausea and weakness x1 year. Past medical history pertinent for substance abuse and IVDU with endocarditis, anxiety, bipolar, GERD, hepatitis C. Patient is currently , in her first trimester, planning for on Wednesday with [facility]. Patient states that her symptoms have not worsened but have remained status quo for the past year. However, I cannot take it anymore. She does state that she has been nauseated and did vomit x1 today. Has not discussed this with the primary care. Patient is on methadone. She reports that she has been taking her daily dosing but states she did vomit shortly after methadone dosing today. On exam, patient appears very anxious. She appears nontoxic. She is speaking very fast. Patient appears diaphoretic. Normal cardiac exam. Lungs are clear. Abdomen is benign. No lower extremity edema or calf tenderness. Low suspicion at this time for emergent life-threatening pathology. She has had this for the past year. Her symptomatology is most concerning for withdrawal but patient denies these symptoms. She denies any other drug use. No alcohol. while she reports that symptoms have been consistent for the past year, her may be exacerbating her anxiety as well as her nausea. Patient does have follow-up on Wednesday with [facility]. She is not having any vaginal bleeding, vaginal discharge or abdominal pain. No change in bowel or bladder habits. She is not endorsing any chest pain. EKG was obtained and reviewed by Dr. Adams. Patient does have first-degree block but this is unchanged from previous. No acute ischemic changes. Will assess for any electrolyte abnormalities given her chronic abdominal discomfort as well as thyroid dysfunction as she has been endorsing diaphoresis. Lab her exam is reassuring.s reviewed. CBC she is diaphoretic. and CMP without significant abnormality. TSH within normal limits. Discussed findings with the patient. She did receive her IV Phenergan and reports feeling much improved. We will send her home with Phenergan for the weekend. She has discussed her methadone and potentially beginning to wean off of this as her symptoms may plan to this with her year of symptoms. Patient was given return precautions. She has appointment on Wednesday for her version. I did advise follow-up with primary care next week. All of her questions and concerns were addressed and she is in agreement with this plan. Patient is feeling much improved at this time. HPI General Mode of arrival: EMS . Date/Time Provider Initiated Documentation: 01/19/20 18:55 . Limitations to Documentation: no limitations . Information obtained by: patient, EMS and RN notes reviewed . HPI Narrative: Patient is a 29-year-old female history of panic attacks, endocarditis, IVDU, headaches, edema, presenting today with chief complaint of 1 month of sweating, anxiety, weakness, nausea. Patient was seen here yesterday given 1 dose of Ativan and left AMA. Patient is currently and is scheduled for on Wednesday. She denies any abdominal pain. No fevers or chills. States no change in her symptoms over the past year. Has not discussed this with her primary care. Patient is on gabapentin and methadone. States that she did take her methadone today but vomited after dosing. Denies any headache. No visual change. Denies any chest pain, shortness of breath, abdominal pain. Related Data Home Medications Medication Instructions Recorded Confirmed gabapentin 300 mg PO TID 01/05/19 01/19/20 methadone 105 mg PO DAILY 01/05/19 01/19/20 promethazine 25 mg PO Q6H PRN #7 tab 01/19/20 Previous Rx's Medication Instructions Recorded promethazine 25 mg PO Q6H PRN #7 tab 01/19/20 Allergies Allergy/AdvReac Type Severity Reaction Status Date / Time No Known Allergies Allergy Unverified 01/19/20 18:38 General PATRICIA: 3 Review of Systems Constitutional Constitutional: Reports as per HPI, Denies chills, Reports excessive sweating, Reports fatigue, Denies fever(s), Denies headache(s), Reports lethargy and Reports poor appetite Eyes Eyes: Denies change in vision ENT Ears, Nose, Mouth, and Throat: Denies dizziness and Denies headache(s) Cardiovascular Cardiovascular: Reports as per HPI, Denies dyspnea and Denies dyspnea on exertion Respiratory Respiratory: Reports as per HPI, Denies chest congestion, Denies cough, Denies pain on inspiration, Denies pain with cough, Denies dyspnea, Denies dyspnea on exertion and Denies wheezing Gastrointestinal Gastrointestinal: Reports as per HPI, Denies abdominal pain, Denies diarrhea, Reports nausea and Denies vomiting Musculoskeletal Musculoskeletal: Reports as per HPI and Denies back pain Integumentary/Breasts Skin/Breast: Reports as per HPI and Denies rash Neurologic Neurologic: Reports as per HPI, Denies dizziness and Denies headache(s) Endocrine Endocrine: Reports excessive sweating and Reports fatigue Allergic/Immunologic Allergic/Immunologic: Denies wheezing PFSH Medical History Anxiety (Chronic) Bipolar disorder (Chronic) Endocarditis (Acute) GERD (gastroesophageal reflux disease) (Chronic) Hepatitis C (Chronic) Obesity (Chronic) Surgical History History of heart valve replacement (Chronic) Social History Smoking/Tobacco Use Status: Current every day Alcohol Intake: never Drug use: Daily Substance use type: former substance user and marijuana Details: Doing THC tanks Do you feel safe at home: Yes Do you feel safe in your relationship?: Yes Exam Const General: cooperative, no acute distress, well developed, anxious and disheveled Nutritional Appearance: well nourished and overweight Orientation: alert, awake and oriented x3 HENMT Head: normal to inspection Ears: hearing grossly normal bilaterally Mouth: moist mucous membranes Chest Chest: normal inspection of the chest, normal palpation of entire chest wall and no crepitus Resp Effort & Inspection: normal respiratory effort, able to speak in complete sentences and no respiratory distress Auscultation: clear to auscultation bilaterally, no rales, no rhonchi and no wheezes Cardio Rate: regular rate Rhythm: regular rhythm Heart Sounds: S1 normal and S2 normal GI Inspection: normal to inspection, no edema and non-distended Palpation: soft, no hepatosplenomegaly, not firm, no guarding, not rigid and nontender Auscultation: normal bowel sounds Skin General skin exam: no rashes or lesions noted Trauma: no lacerations or abrasions Neuro General: patient alert, patient awake and patient oriented x3 Cognition: normal cognition Speech: speech normal Gait: normal gait Extrem General: normal to inspection, capillary refill normal, no pedal edema, no calf tenderness and normal gait Psych Appearance: grossly normal and well kempt Mental Status: mental status grossly normal Speech and Movement: speech and movement normal Mood: anxious mood Affect: anxious affect Attitude: cooperative
[2020-01-19 18:30] VITALS: BP 122/80; PULSE 61; TEMP 36.8; O2SAT 98
[2020-01-19 19:27] LABS: Abs Immature Grans 0.02 k/cumm (0.0-0.09); Absolute Basophil Count 0.01 k/cumm (0.0-0.2); Absolute Eosinophil Count 0.07 k/cumm (0.0-0.7); Absolute Lymphocyte Count 1.94 k/cumm (1.2-3.4); Absolute Monocyte Count 0.38 k/cumm (0.11-0.7); Absolute Neutrophil Count 6.96 k/cumm (1.2-6.7); Basophils % 0.1; Eosinophils % 0.7; HCT 39.5 % (36.0-46.0); HGB 12.9 g/dL (12.0-15.5); Immature Grans % 0.2 %; Lymphocytes % 20.7; Mean Corp. HGB Concentration 32.7 g/dL (32.0-36.0); Mean Corpuscular Hemoglobin 28.4 pg (27.0-33.0); Mean Corpuscular Volume 86.8 fL (80-95); Monocytes % 4.1; Neutrophils % 74.2; Platelet Count 294 x1000/uL (130-400); RBC 4.55 m/cumm (4.00-5.20); RBC Distribution Width 14.3 % (11.7-14.6); White Blood Cell Count 9.38 k/cumm (4.4-10.8)
[2020-01-19] MEDS: Normal Saline 1,000 ML 1000 ML IV (19:27)
[2020-01-19 19:46] LABS: ALT 16 U/L (14-59); AST 15 U/L (15-37); Albumin 3.5 g/dL (3.4-5.0); Alkaline Phosphatase 78 U/L (46-116); Anion Gap 4.8 mmol/L (3-11); BUN 8 mg/dL (7-18); Bilirubin, Total 0.4 mg/dL (0.2-1.0); CO2 29.2 mmol/L (21.0-32.0); CREATININE 0.84 mg/dL (0.55-1.02); Calcium 8.7 mg/dL (8.5-10.1); Chloride 103 mmol/L (98-107); Glucose 90 mg/dL (74-106); Potassium 3.5 mmol/L (3.5-5.1); Sodium 137 mmol/L (136-145); TSH (W/Ref FT4) 1.01 uIU/mL (0.36-3.74); Total Protein 7.6 g/dL (6.4-8.2)
[2020-01-19 20:03] VITALS: BP 105/57; PULSE 64; RESP 18; O2SAT 100
[2020-01-19] MEDS: Promethazine 25 MG TAB 100 MG PO (20:04)
== END 2020-01-19 20:10 | disposition home or self-care (01) ==
LOC: ER 20:12
PROVIDERS: Emergency Provider Physician Assistant; PCP Nurse Practitioner Family
DX: R11.0 Nausea (principal); R61 Generalized hyperhidrosis; Z3A.00 Weeks of gestation of pregnancy not specified; O99.321 Drug use complicating pregnancy, first trimester; F11.90 Opioid use, unspecified, uncomplicated; O99.331 Smoking (tobacco) complicating pregnancy, first trimester; F17.210 Nicotine dependence, cigarettes, uncomplicated
CPT/HCPCS: 36415; 80053; 93005; 96361; 96374; 99284; 84443; 85025; 93010; 99285

== ENCOUNTER 2020-01-20 23:52 | Emergency (ER) | payer MEDICAID, SELFPAY ==
[2020-01-20 23:49] VITALS: BP 129/70; PULSE 80; RESP 16; TEMP 36.7; O2SAT 99
--- NOTE | 2020-01-21 00:01 | ED.GENADUL_ITS ---
Discharge Plan Disposition Patient Disposition: HOME Condition: Stable Discharge Details Chief Complaint: Nausea/Vomit/Diar Clinical Impression: Nausea & vomiting Primary Care Provider: Linda Gunn ED Provider: Gil Haro Home Meds and New Rx's Prescriptions: New ondansetron 4 mg tablet,disintegrating 4 mg PO Q8H PRN (Reason: nausea and vomiting) Qty: 30 RF: 0 Continued gabapentin 300 mg Capsule 300 mg PO TID RF: 0 methadone 10 MG/ML concentrate 105 mg PO DAILY RF: 0 Discontinued promethazine 25 mg tablet 25 mg PO Q6H PRN (Reason: nausea and vomiting) Qty: 7 RF: 0 Discharge Instructions Instructions: Acute Nausea and Vomiting (ED) Medical Decision Making 29 yo female with hx of prior ivdu clean for years per patient and on methadone, recently conceived and [facility] comes in with continued n/v despite phenergan. Denies fevers, abdominal pain or dyspnea. She is hd stable with moist membranes, softnontender abdomen. Suspect multifactorial cause for her n/v, including related nausea and anxiety. given lack of abdominal pain or tenderness doubt entities such as sbo, appendicitis or other surgical pathology. No vaginal bleeding or abdominal pain so doubt ectopic. Will treat with oral zofran as she states she is having the regardless and monitor pt now able to tolerate po and still no abdominal tenderness. Will d/c with zofran and return precautions given Differential Diagnosis Differential Diagnosis: hyperemesis, cyclic vomit, panic disorder Medical Records Medical records reviewed: Yes I reviewed the patient's medical records. HPI General Mode of arrival: EMS . Date/Time Provider Initiated Documentation: 01/20/20 23:53 . Limitations to Documentation: no limitations . Information obtained by: patient . History of Present Illness 29 year old F p resents to the emergency department with the chief complaint of n/v, described as moderate, and it has been intermittent. No relieving factors improve symptom(s), No exacerbating factors reported . Related Data Home Medications Medication Instructions Recorded Confirmed gabapentin 300 mg PO TID 01/05/19 01/20/20 methadone 105 mg PO DAILY 01/05/19 01/20/20 ondansetron 4 mg PO Q8H PRN #30 tab 01/21/20 Previous Rx's Medication Instructions Recorded ondansetron 4 mg PO Q8H PRN #30 tab 01/21/20 Allergies Allergy/AdvReac Type Severity Reaction Status Date / Time No Known Allergies Allergy Unverified 01/19/20 18:38 General Stated Complaint: Nausea/Vomit/Diar PATRICIA: 3 Review of Systems All systems reviewed & are unremarkable except as noted in HPI and below Constitutional Constitutional: Denies chills, Denies fever(s) and Denies weakness ENT Ears, Nose, Mouth, and Throat: Denies change in voice Cardiovascular Cardiovascular: Denies chest pain and Denies dyspnea Respiratory Respiratory: Denies cough and Denies dyspnea Gastrointestinal Gastrointestinal: Denies abdominal pain Genitourinary Genitourinary: Denies dysuria Musculoskeletal Musculoskeletal: Denies joint swelling Integumentary/Breasts Skin/Breast: Denies rash Neurologic Neurologic: Denies weakness Psychiatric Psychiatric: Denies depression Endocrine Endocrine: Denies cold intolerance and Denies heat intolerance Allergic/Immunologic Allergic/Immunologic: Denies urticaria PFSH Social History Smoking/Tobacco Use Status: Current every day Alcohol Intake: never Drug use: Daily Substance use type: former substance user and marijuana Details: Doing THC tanks Do you feel safe at home: Yes Do you feel safe in your relationship?: Yes Exam Const General: no acute distress Orientation: alert HENPA Head: normal to inspection Ears: external ears normal General nose exam: external nose normal Mouth: moist mucous membranes Eyes General: appearance normal, both eyes and all related structures Neck Neck: normal visual inspection Resp Effort & Inspection: normal respiratory effort and able to speak in complete sentences Cardio Rate: regular rate GI Palpation: soft and nontender Skin General skin exam: no rashes or lesions noted Neuro General: patient alert and patient oriented x3 Extrem General: normal to inspection Psych Mental Status: mental status grossly normal Course Vital Signs Vital signs: Vital Signs Temperature 36.7 C 01/20/20 23:49 Pulse 80 01/20/20 23:49 Respiratory Rate 16 01/20/20 23:49 Blood Pressure 129/70 01/20/20 23:49 Pulse Oximetry 99 01/20/20 23:49 Temperature 36.7 C 01/20/20 23:49 Temperature Source Temporal Artery Scan 01/20/20 23:49 Pulse 80 01/20/20 23:49 Respiratory Rate 16 01/20/20 23:49 Respiratory Effort Non-Labored 01/20/20 23:53 Blood Pressure 129/70 01/20/20 23:49 Blood Pressure Position Sitting 01/20/20 23:49 Pulse Oximetry 99 01/20/20 23:49 Oxygen Delivery Method Room Air 01/20/20 23:49 Oxygen Flow Rate 0 01/20/20 23:49
[2020-01-21] MEDS: Ondansetron O.D.T. 4 MG TABEF PO (00:06)
[2020-01-21] MEDS: Ondansetron O.D.T. 4 MG TABEF, 3 TABS/BTL PO (00:09)
[2020-01-21 00:15] VITALS: BP 129/70; PULSE 80; RESP 16; TEMP 36.7; O2SAT 99
== END 2020-01-21 00:05 | disposition home or self-care (01) ==
LOC: ER 01-21 00:15
PROVIDERS: Emergency Provider Emergency Medicine; PCP Nurse Practitioner Family
DX: R11.2 Nausea with vomiting, unspecified (principal); Z3A.00 Weeks of gestation of pregnancy not specified; O99.321 Drug use complicating pregnancy, first trimester; F11.90 Opioid use, unspecified, uncomplicated; O99.331 Smoking (tobacco) complicating pregnancy, first trimester; F17.210 Nicotine dependence, cigarettes, uncomplicated
CPT/HCPCS: 99283

== ENCOUNTER 2020-01-21 07:09 | Emergency (ER) | payer MEDICAID, SELFPAY ==
[2020-01-21 07:11] VITALS: BP 139/68; PULSE 83; RESP 20; TEMP 36.4; O2SAT 99
--- NOTE | 2020-01-21 08:49 | W.ED.GENAD ---
Discharge Plan Disposition Patient Disposition: HOME Condition: Stable Discharge Details Chief Complaint: Nausea/Vomit/Diar Clinical Impression: Nausea, Anxiety Primary Care Provider: Linda Gunn ED Provider: Luis Fraser Home Meds and New Rx's Prescriptions: New promethazine 25 mg suppository 25 mg MD Q6H PRN (Reason: nausea and vomiting) Qty: 12 RF: 0 No Action ondansetron 4 mg tablet,disintegrating 4 mg PO Q8H PRN (Reason: nausea and vomiting) Qty: 30 RF: 0 gabapentin 300 mg Capsule 300 mg PO TID RF: 0 methadone 10 MG/ML concentrate 105 mg PO DAILY RF: 0 Discharge Instructions Instructions: Acute Nausea and Vomiting (ED), Anxiety (ED) Additional Instructions: At this time her laboratory values do not reveal any obvious emergent process. You already have Zofran ODT at home and I have provided you a prescription with Phenergan suppositories, take as directed. Clear liquid diet, advance as tolerated. Please watch for new or worsening symptoms and return to the ER for any concerns. Follow-up with women's health as already scheduled for tomorrow. Medical Decision Making Patient presents to the ER via EMS prior to my shift starting, had been in the ER for over an hour prior to my evaluation and has not vomited once. She certainly is tearful, crying, looks anxious. I do believe that her presentation today is multifactorial. She does not appear dehydrated. She is hemodynamically stable. Abdomen is soft, nontender. I do feel as though given her chief complaint, , it is prudent to obtain IV access, check routine laboratory values, give IV fluid, and we discussed antiemetics, she is comfortable receiving a dose of Phenergan. At this time I will hold off on giving any medication for her anxiety and will reassess the situation once labs have resulted. Laboratory values reveal ketones in her urine and minimal nonspecific leukocytosis. Sodium 133. Otherwise unremarkable. Certainly no clinical signs of infectious process. Upon reevaluation she is resting comfortably, receiving IV fluid, and reports that the Phenergan has helped her symptoms. She has been observed in the ER for over 2 hours and 15 minutes. No vomiting while under my care. She is comfortable with discharge at this time. We discussed her disposition. She has a prescription for Zofran ODT, I will provide Phenergan suppositories. She was encouraged to follow-up with women's health tomorrow as scheduled, and return to the ER for new or evolving symptoms. Upon discharge patient has no additional questions or concerns. She is no longer anxious, crying, tearful. She used her cell phone to call her family for a ride without any difficulty. Medical Records Medical records reviewed: Yes I reviewed the patient's medical records. HPI General Mode of arrival: EMS. Date/Time Provider Initiated Documentation: 01/21/20 07:19. Limitations to Documentation: no limitations. Information obtained by: patient. HPI Narrative: This is a 29-year-old female, history of chronic nausea, anxiety, IV drug use currently taking methadone, endocarditis, G5, P4, last menstrual cycle sometime in December, scheduled for a medical tomorrow through our women's health team. She presents via EMS this morning for ongoing nausea and vomiting. Reports that her last episode of vomiting was around 4 AM. Patient is crying and just repeats please help me. She states the only thing that helps me is IV medication. She reports minimal abdominal, specifically epigastric, discomfort upon vomiting but otherwise is pain-free. She reports that she has had multiple visits for the same recently, and was actually discharged very early this morning. She denies recent travel or bad food exposure. Denies fever, chest pain, shortness of breath, back pain, dysuria, hematuria, diarrhea or constipation. She is concerned about dehydration. After my HPI and physical was completed as I was leaving the room she asked can you please give me something for my anxiety?. Related Data Home Medications Medication Instructions Recorded Confirmed gabapentin 300 mg PO TID 01/05/19 01/21/20 methadone 105 mg PO DAILY 01/05/19 01/21/20 ondansetron 4 mg PO Q8H PRN #30 tab 01/21/20 01/21/20 promethazine 25 mg MD Q6H PRN #12 each 01/21/20 Previous Rx's Medication Instructions Recorded ondansetron 4 mg PO Q8H PRN #30 tab 01/21/20 promethazine 25 mg MD Q6H PRN #12 each 01/21/20 Allergies Allergy/AdvReac Type Severity Reaction Status Date / Time No Known Allergies Allergy Unverified 01/21/20 07:18 General Stated Complaint: Nausea/Vomit/Diar PATRICIA: 3 Review of Systems Constitutional Constitutional: Denies fatigue, Denies fever(s) and Denies headache(s) ENT Ears, Nose, Mouth, and Throat: Denies headache(s) and Denies sore throat Cardiovascular Cardiovascular: Denies chest pain and Denies dyspnea Respiratory Respiratory: Denies cough and Denies dyspnea Gastrointestinal Gastrointestinal: Reports abdominal pain (After vomiting), Denies constipation, Denies diarrhea, Reports nausea and Reports vomiting Genitourinary Genitourinary: Denies abnormal vaginal bleeding, Denies dysuria and Denies vaginal discharge Musculoskeletal Musculoskeletal: Denies back pain Integumentary/Breasts Skin/Breast: Denies rash Neurologic Neurologic: Denies headache(s) Endocrine Endocrine: Denies fatigue [facility] Medical History Anxiety (Chronic) Bipolar disorder (Chronic) Endocarditis (Acute) GERD (gastroesophageal reflux disease) (Chronic) Hepatitis C (Chronic) Obesity (Chronic) Surgical History History of heart valve replacement (Chronic) Social History Smoking/Tobacco Use Status: Current every day Tobacco Type: cigarettes Alcohol Intake: never Drug use: Daily Substance use type: former substance user and marijuana Details: Doing THC tanks Do you feel safe at home: Yes Do you feel safe in your relationship?: Yes Exam Const General: cooperative, healthy appearing, comfortable, no acute distress and anxious (Tearful, crying) Orientation: alert, awake and oriented x3 [facility] Head: normal to inspection, normocephalic and atraumatic Mouth: moist mucous membranes Throat: posterior oropharynx normal Eyes Conjunctivae: conjunctivae normal Neck Neck: normal visual inspection, full ROM, meningismus present, trachea midline and supple Resp Effort & Inspection: normal respiratory effort and able to speak in complete sentences Auscultation: clear to auscultation bilaterally Cardio Rate: regular rate Rhythm: regular rhythm GI Inspection: normal to inspection Palpation: soft, not firm, no guarding, not rigid and nontender Auscultation: normal bowel sounds Back/Spine/Pelvis Back: No back tenderness Skin General skin exam: no rashes or lesions noted Neuro General: patient alert, patient awake, patient oriented x3, moves all extremities and no focal motor deficits Motor: muscle tone normal throughout Sensory Exam: no sensory deficits noted Extrem General: normal to inspection, full ROM, capillary refill normal, no pedal edema and no calf tenderness Psych Appearance: grossly normal Mental Status: mental status grossly normal Course Vital Signs Vital signs: Vital Signs Temperature 36.4 C L 01/21/20 07:11 Pulse 83 01/21/20 07:11 Respiratory Rate 20 01/21/20 07:11 Blood Pressure 139/68 01/21/20 07:11 Pulse Oximetry 99 01/21/20 07:11 Temperature 36.4 C L 01/21/20 07:11 Temperature Source Tympanic 01/21/20 07:11 Pulse 83 01/21/20 07:11 Respiratory Rate 01/21/20 07:11 Respiratory Effort 01/21/20 07:15 Blood Pressure 139/68 01/21/20 07:11 Blood Pressure Position Supine 01/21/20 07:11 Pulse Oximetry 99 01/21/20 07:11 Oxygen Delivery Method Room Air 01/21/20 07:11 Oxygen Flow Rate 0 01/21/20 07:11 Pain Level 8 01/21/20 07:11
[2020-01-21 08:53] LABS: Bilirubin Small (Negative); Blood Negative (Negative); Clarity Sl Cloudy (Clear); Glucose Negative (Negative); Ketones >=160 mg/dL (Negative); Leukocyte Esterase Negative (Negative); Nitrite Negative (Negative); Specific Gravity >= 1.030 (1.005-1.025)
[2020-01-21] MEDS: Normal Saline 1,000 ML 1000 ML IV (08:55)
[2020-01-21 09:06] LABS: Abs Immature Grans 0.03 k/cumm (0.0-0.09); Absolute Basophil Count 0.01 k/cumm (0.0-0.2); Absolute Eosinophil Count 0.03 k/cumm (0.0-0.7); Absolute Lymphocyte Count 1.55 k/cumm (1.2-3.4); Absolute Monocyte Count 0.47 k/cumm (0.11-0.7); Basophils % 0.1; Eosinophils % 0.2; HCT 41.6 % (36.0-46.0); HGB 13.7 g/dL (12.0-15.5); Immature Grans % 0.2 %; Lymphocytes % 12.3; Mean Corp. HGB Concentration 32.9 g/dL (32.0-36.0); Mean Corpuscular Hemoglobin 28.4 pg (27.0-33.0); Mean Corpuscular Volume 86.1 fL (80-95); Mean Platelet Volume 10.3 fL (8.0-11.0); Monocytes % 3.7; Neutrophils % 83.5; Platelet Count 283 x1000/uL (130-400); RBC 4.83 m/cumm (4.00-5.20); RBC Distribution Width 14.2 % (11.7-14.6); White Blood Cell Count 12.63 k/cumm (4.4-10.8)
[2020-01-21 09:08] LABS: ALT 14 U/L (14-59); AST 25 U/L (15-37); Albumin 3.6 g/dL (3.4-5.0); Alkaline Phosphatase 83 U/L (46-116); Anion Gap 9.7 mmol/L (3-11); BUN 7 mg/dL (7-18); Bilirubin, Total 0.8 mg/dL (0.2-1.0); CO2 22.3 mmol/L (21.0-32.0); CREATININE 0.77 mg/dL (0.55-1.02); Calcium 8.9 mg/dL (8.5-10.1); Chloride 101 mmol/L (98-107); Glucose 100 mg/dL (74-106); Lipase 44 U/L (73-393); Potassium 3.7 mmol/L (3.5-5.1); Sodium 133 mmol/L (136-145); Total Protein 8.2 g/dL (6.4-8.2)
[2020-01-21 09:09] LABS: Absolute Neutrophil Count 10.55 k/cumm (1.2-6.7)
[2020-01-21 09:10] LABS: Bacteria Many HPF (Negative); C & S Indicated? No/Sq. Contamination; Casts Negative LPF (Negative); Crystals Negative HPF (Negative); Epithelial Cells Many HPF (Negative); Mucus Heavy (Negative)
[2020-01-21 10:25] VITALS: BP 104/63; PULSE 68; RESP 17; TEMP 36.8; O2SAT 98
== END 2020-01-21 10:28 | disposition home or self-care (01) ==
PROVIDERS: Emergency Provider Physician Assistant; PCP Nurse Practitioner Family
DX: R11.2 Nausea with vomiting, unspecified (principal); F41.9 Anxiety disorder, unspecified; Z3A.00 Weeks of gestation of pregnancy not specified; O99.321 Drug use complicating pregnancy, first trimester; F11.90 Opioid use, unspecified, uncomplicated
CPT/HCPCS: 36415; 80053; 81025; 83690; 96361; 96365; 99284; 81003; 81015; 85025; 99283

== ENCOUNTER 2020-02-14 07:15 | Emergency (ER) | payer MEDICAID, SELFPAY ==
[2020-02-14 07:16] VITALS: BP 117/80; PULSE 69; RESP 20; TEMP 36.6; O2SAT 98
--- NOTE | 2020-02-14 07:27 | ED.GENADUL_ITS ---
Discharge Plan Disposition Patient Disposition: HOME Condition: Stable Discharge Details Chief Complaint: GenMedical Clinical Impression: Panic attack Primary Care Provider: Linda Gunn ED Provider: Gil Haro Home Meds and New Rx's Prescriptions: New lorazepam 1 mg tablet 1 mg PO TID PRN (Reason: anxiety) Qty: 10 RF: 0 Continued gabapentin 300 mg Capsule 300 mg PO TID RF: 0 methadone 10 MG/ML concentrate 105 mg PO DAILY RF: 0 No Action ondansetron 4 mg tablet,disintegrating 4 mg PO Q8H PRN (Reason: nausea and vomiting) Qty: 30 RF: 0 promethazine 25 mg suppository 25 mg DC Q6H PRN (Reason: nausea and vomiting) Qty: 12 RF: 0 Discharge Instructions Instructions: Panic Attack (ED) Additional Instructions: follow up with your primary care provider within 1 week if you feel more ill, have high fevers or persistent vomit return to the emergency department Medical Decision Making 29 yo female with prior hx of substance abuse status post valve repleacement in 2018 secondary to endocarditis, on methadone, comes in with sensation of hot flashes, nausea and feeling shaky this morning and now has resolved on arrival. Has had these episodes numerous times before but has no medication to help with them. Denies chest pain,current dyspnea, drug use, alcohol use, fevers, chills. She has no neuro deficits, caox4, no si/hi, speaking clearly, soft nontender abdomen speaking in full sentences. Her history is consistent with likely panic attack. Given she is currently asymptomatic with stable vitals feel she can be d'cd without any labs or imaging. Will prescribe small amount of ativan prn until she can see her pcp return precautions given Differential Diagnosis Differential Diagnosis: panic attack, anxiety HPI General Mode of arrival: EMS . Date/Time Provider Initiated Documentation: 02/14/20 07:20 . Limitations to Documentation: no limitations . Information obtained by: patient . History of Present Illness 29 year old F presents to the emergency department with the chief complaint of shaky, described as moderate, and it has been now resolved. No relieving factors improve symptom(s), No exacerbating factors reported . Related Data Home Medications Medication Instructions Recorded Confirmed gabapentin 300 mg PO TID 01/05/19 02/14/20 methadone 105 mg PO DAILY 01/05/19 02/14/20 ondansetron 4 mg PO Q8H PRN #30 tab 01/21/20 02/14/20 promethazine 25 mg DC Q6H PRN #12 each 01/21/20 02/14/20 lorazepam 1 mg PO TID PRN #10 tab 02/14/20 Previous Rx's Medication Instructions Recorded ondansetron 4 mg PO Q8H PRN #30 tab 01/21/20 promethazine 25 mg DC Q6H PRN #12 each 01/21/20 lorazepam 1 mg PO TID PRN #10 tab 02/14/20 Allergies Allergy/AdvReac Type Severity Reaction Status Date / Time No Known Allergies Allergy Unverified 02/14/20 07:21 General Stated Complaint: GenMedical PATRICIA: 3 Review of Systems All systems reviewed & are unremarkable except as noted in HPI and below Constitutional Constitutional: Denies chills, Denies fever(s) and Denies weakness Cardiovascular Cardiovascular: Denies chest pain and Denies dyspnea Respiratory Respiratory: Denies cough and Denies dyspnea Gastrointestinal Gastrointestinal: Denies abdominal pain Musculoskeletal Musculoskeletal: Denies joint swelling Integumentary/Breasts Skin/Breast: Denies rash Neurologic Neurologic: Denies weakness [facility] Social History Smoking/Tobacco Use Status: Current every day Tobacco Type: cigarettes Alcohol Intake: never Drug use: Daily Substance use type: former substance user and marijuana Details: Doing THC tanks Do you feel safe at home: Yes Do you feel safe in your relationship?: Yes Exam Const General: no acute distress Orientation: alert [facility] Head: normal to inspection Ears: external ears normal General nose exam: external nose normal Mouth: moist mucous membranes Eyes General: appearance normal, both eyes and all related structures Neck Neck: normal visual inspection Resp Effort & Inspection: normal respiratory effort and able to speak in complete sentences Cardio Rate: regular rate Skin General skin exam: no rashes or lesions noted Neuro General: patient alert and patient oriented x3 Extrem General: normal to inspection Psych Mental Status: mental status grossly normal Course Vital Signs Vital signs: Vital Signs Temperature 36.6 C 02/14/20 07:16 Pulse 69 02/14/20 07:16 Respiratory Rate 20 02/14/20 07:16 Blood Pressure 117/80 02/14/20 07:16 Pulse Oximetry 98 02/14/20 07:16 Temperature 36.6 C 02/14/20 07:16 Temperature Source Skin 02/14/20 07:16 Pulse 69 02/14/20 07:16 Respiratory Rate 20 02/14/20 07:16 Respiratory Effort Non-Labored 02/14/20 07:20 Blood Pressure 117/80 02/14/20 07:16 Blood Pressure Position Sitting 02/14/20 07:16 Pulse Oximetry 98 02/14/20 07:16 Oxygen Delivery Method Room Air 02/14/20 07:16 Oxygen Flow Rate 0 02/14/20 07:16 Pain Level 0 02/14/20 07:16
--- NOTE | 2020-02-14 07:50 | NUR.NOTE ---
Referral faxed to PCP Linda Gunn.Nursing Note:
== END 2020-02-14 07:37 | disposition home or self-care (01) ==
PROVIDERS: Emergency Provider Emergency Medicine; PCP Nurse Practitioner Family
DX: F41.0 Panic disorder [episodic paroxysmal anxiety] (principal); R11.0 Nausea; F11.20 Opioid dependence, uncomplicated; I25.10 Atherosclerotic heart disease of native coronary artery without angina pectoris; Z95.1 Presence of aortocoronary bypass graft
CPT/HCPCS: 99283

== ENCOUNTER 2020-04-03 17:12 | Emergency (ER) | payer MEDICAID, SELFPAY ==
[2020-04-03 17:17] VITALS: BP 143/101; PULSE 114; RESP 20; TEMP 37; O2SAT 95
--- NOTE | 2020-04-03 18:00 | DI.CT_ITS ---
EXAM: CT ABDOMEN PELVIS W CLINICAL HISTORY: RLQ pain. TECHNIQUE: Imaging Protocol: Axial computed tomography images with coronal and sagittal reformatted images were created and reviewed CONTRAST MATERIAL: Intravenous: Omnipaque 350 Contrast volume:100 ml Oral: no COMPARISON: CT CT ABDOMEN PELVIS W from 01/29/2019 FINDINGS: ABDOMEN: Lung Bases: Normal where visualized. Liver: Normal density. No measurable mass. Gallbladder and biliary tract: Status post cholecystectomy Pancreas: Normal density, no abnormal calcifications or inflammatory process. Spleen: Normal. Kidneys: Normal size, contour and axis. No radiodense stones or obstructive uropathy. No masses seen. Adrenal glands: No masses seen. Abdominal Aorta: Abdominal portion non-dilated. Soft tissues: Fatty containing umbilical hernia, unchanged. PELVIS: Bladder: Nearly empty, no gross wall thickening. Bowel: Increased stool in the rectum. Normal appendix.. No obstruction or bowel wall thickening. Peritoneal cavity: No ascites, collection or mesenteric inflammatory response. Bones: Within normal limits. Reproductive organs: Within normal limits. Lymph nodes: Unremarkable. Impression: No acute abnormality. RADIATION DOSE DELIVERED: 2,098.97mGy.cm Total DLP DATA REPOSITORY: All CT scans at this facility are submitted to the National Radiology Data Registry (NRDR) Dose Index Registry (DIR) with the [employer] ([employer]). RADIATION OPTIMIZATION: All CT scans at this facility use at least one of these dose optimization te chniques: automated exposure control; mA and/or kV adjustment per patient size (includes targeted exa ms where dose is matched to clinical indication); or iterative reconstruction.
--- NOTE | 2020-04-03 18:01 | ED.GENADUL_ITS ---
Discharge Plan Disposition Patient Disposition: AGAINST MEDICAL ADVICE Condition: Stable Discharge Details Chief Complaint: Abd Prob Clinical Impression: Abdominal pain Primary Care Provider: Lnida Gunn ED Provider: Gli Haro Home Meds and New Rx's Prescriptions: Continued ondansetron 4 mg tablet,disintegrating 4 mg PO Q8H PRN (Reason: nausea and vomiting) Qty: 30 RF: 0 promethazine 25 mg suppository 25 mg HI Q6H PRN (Reason: nausea and vomiting) Qty: 12 RF: 0 gabapentin 300 mg Capsule 800 mg PO TID RF: 0 methadone 10 MG/ML concentrate 105 mg PO DAILY RF: 0 Discharge Instructions Instructions: Abdominal Pain (ED) Additional Instructions: your cat scan did not show any concerning abnormalities at this time. your blood work showed you were dehydrated folllow up with your primary care provider within 1 week if you feel more ill, have severe worsening pain or persistent vomit return to the emergency department Discharge Data Discharge Date/Time-TO BE ENTERED AT DEPARTURE: 04/03/20 20:50 Medical Decision Making <Ruthy Zarco MD - Last Filed: 04/08/20 11:07> Ina Orellana is a 30 y/o woman who presented to the emergency department with RLQ paina and sweating. On exam, Pt initially diaphoretic, rapidly diaphoresis ceased in ED. Pt well and non-toxic appearing. RQL TTP without peritoneal signs. Concern for appendicitis, other intra-abdominal process, metabolic/lyte derangement, dehydration, other. Exam/hx not c/w acute coronary syndrome, pulm embolism, sepsis, endocarditis, myocarditis, PID, acute ovarian pathology. Plan for screening labs, CT, CXR, UA/upreg. Upreg neg per nursing. CT neg. On exam Pt reports resolution of symptoms, no pain, feels well and in her usual state of health. Plan for tick panel for recurring night sweats/subjective fever. Labs show JEAN CLAUDE, will repeat BMP after fluids. Pt signed out to Dr. Haro at shift change with repeat labs, reassessment pending. Medical Records Medical records reviewed: Yes I reviewed the patient's medical records. Imaging Data Radiologic Study: Attestation: I personally reviewed and interpreted this imaging study as follows: Radiologist's impression: EXAM: CT ABDOMEN PELVIS W CLINICAL HISTORY: RLQ pain. TECHNIQUE: Imaging Protocol: Axial computed tomography images with coronal and sagittal reformatted images were created and reviewed CONTRAST MATERIAL: Intravenous: Omnipaque 350 Contrast volume:100 ml Oral: no COMPARISON: CT CT ABDOMEN PELVIS W from 01/29/2019 FINDINGS: ABDOMEN: Lung Bases: Normal where visualized. Liver: Normal density. No measurable mass. Gallbladder and biliary tract: Status post cholecystectomy Pancreas: Normal density, no abnormal calcifications or inflammatory process. Spleen: Normal. Kidneys: Normal size, contour and axis. No radiodense stones or obstructive uropathy. No masses seen. Adrenal glands: No masses seen. Abdominal Aorta: Abdominal portion non-dilated. Soft tissues: Fatty containing umbilical hernia, unchanged. PELVIS: Bladder: Nearly empty, no gross wall thickening. Bowel: Increased stool in the rectum. Normal appendix.. No obstruction or bowel wall thickening. Peritoneal cavity: No ascites, collection or mesenteric inflammatory response. Bones: Within normal limits. Reproductive organs: Within normal limits. Lymph nodes: Unremarkable. Impression: No acute abnormality. EXAM: XR CHEST 2V PA LATERAL CLINICAL HISTORY: fever TECHNIQUE: 2D digital imaging was performed. COMPARISON: CR XR ABD FLAT UPRIGHT PA CHEST from 01/28/2019 FINDINGS: Sternal wires are present. The heart size is normal. The lungs are clear. No infiltrate or effusion is seen. IMPRESSION: No acute pulmonary findings. Lab Data Lab results reviewed: Yes I reviewed the patient's lab results. Labs: 04/03/20 18:20 Blood Blood Culture - Preliminary NO GROWTH 96 HOURS 04/03/20 18:15 Blood Blood Culture - Preliminary NO GROWTH 96 HOURS Laboratory Tests Range/Units 04/03/20 04/03/20 04/03/20 18:15 18:15 18:15 WBC (4.4-10.8) 10^3/uL 11.12 H RBC (3.93-5.22) 10^6/uL 4.96 Hgb (11.2-15.7) g/dL 14.1 Hct (36.0-46.0) % 42.9 MCV (80-95) fL 86.5 MCH (27.0-33.0) pg 28.4 MCHC (32.0-36.0) % 32.9 RDW (11.7-14.6) % 14.2 Plt Count (130-400) 10^3/uL 289 MPV (8.0-11.0) fL 11.2 H Immature Gran % 0.4 Neutrophils % 59.4 Lymphocytes % 34.3 Monocytes % 4.7 Eosinophils % 0.8 Basophils % 0.4 Absolute Neutrophils (1.2-6.7) 10^3/uL 6.61 Absolute Lymphocytes (1.2-3.4) 10^3/uL 3.81 H Absolute Monocytes (0.1-0.8) 10^3/uL 0.52 Absolute Eosinophils (0.0-0.7) 10^3/uL 0.09 Absolute Basophils (0.0-0.2) 10^3/uL 0.04 Sodium (136-145) mmol/L 139 Potassium (3.5-5.1) mmol/L 3.8 Chloride (98-107) mmol/L 102 Carbon Dioxide (21.0-32.0) mmol/L 24.0 Anion Gap (3-11) mmol/L 13.0 H BUN (7-18) mg/dL 14 Creatinine (0.55-1.02) mg/dL 1.46 H Estimated GFR/1.73 m2 (mL/min/1.73m2) 41.79 Glucose (74-106) mg/dL 84 Lactate (0.6-1.4) mmol/L 1.7 H Calcium (8.5-10.1) mg/dL 9.6 Total Bilirubin (0.2-1.0) mg/dL 0.6 AST (15-37) U/L 21 ALT (14-59) U/L 23 Alkaline Phosphatase (46-116) U/L 88 Total Protein (6.4-8.2) g/dL 8.6 H Albumin (3.4-5.0) g/dL 4.4 Lipase (73-393) U/L 73 Urine Color (Yellow) Urine Clarity (Clear) Urine pH (5-8) Ur Specific [place] (1.005-1.025) Urine Protein (Negative) mg/dL Urine Ketones (Negative) mg/dL Urine Blood (Negative) Urine Nitrite (Negative) Urine Bilirubin (Negative) Urine Urobilinogen (Up TO 0.2) EU/dL Ur Leukocyte Esterase (Negative) Urine RBC (0-2) HPF Urine WBC (0-5) HPF Ur Epithelial Cells (Negative) HPF Urine Crystals (Negative) HPF Urine Bacteria (Negative) HPF Urine Casts (Negative) LPF Urine Mucus (Negative) Ur Culture Indicated? Urine Glucose (Negative) mg/dL A.phagocytophil DNA PCR B. divergens/MO-1 PCR Babesia duncani (PCR) Babesia microti DNA PCR Borrelia (PCR) Lyme Disease Antibody E.chaffeensis DNA (PCR) E.ewingii/canis DNA PCR E. muris-like DNA (PCR) Range/Units 04/03/20 04/03/20 04/03/20 18:35 19:48 19:52 WBC (4.4-10.8) 10^3/uL RBC (3.93-5.22) 10^6/uL Hgb (11.2-15.7) g/dL Hct (36.0-46.0) % MCV (80-95) fL MCH (27.0-33.0) pg MCHC (32.0-36.0) % RDW (11.7-14.6) % Plt Count (130-400) 10^3/uL MPV (8.0-11.0) fL Immature Gran % Neutrophils % Lymphocytes % Monocytes % Eosinophils % Basophils % Absolute Neutrophils (1.2-6.7) 10^3/uL Absolute Lymphocytes (1.2-3.4) 10^3/uL Absolute Monocytes (0.1-0.8) 10^3/uL Absolute Eosinophils (0.0-0.7) 10^3/uL Absolute Basophils (0.0-0.2) 10^3/uL Sodium (136-145) mmol/L Cancelled Potassium (3.5-5.1) mmol/L Cancelled Chloride (98-107) mmol/L Cancelled Carbon Dioxide (21.0-32.0) mmol/L Cancelled Anion Gap (3-11) mmol/L Cancelled BUN (7-18) mg/dL Cancelled Creatinine (0.55-1.02) mg/dL Cancelled Estimated GFR/1.73 m2 (mL/min/1.73m2) Cancelled Glucose (74-106) mg/dL Cancelled Lactate (0.6-1.4) mmol/L Calcium (8.5-10.1) mg/dL Cancelled Total Bilirubin (0.2-1.0) mg/dL AST (15-37) U/L ALT (14-59) U/L Alkaline Phosphatase (46-116) U/L Total Protein (6.4-8.2) g/dL Albumin (3.4-5.0) g/dL Lipase (73-393) U/L Urine Color (Yellow) Yellow Urine Clarity (Clear) Sl cloudy Urine pH (5-8) 5.5 Ur Specific [place] (1.005-1.025) >= 1.030 H Urine Protein (Negative) mg/dL 100 H Urine Ketones (Negative) mg/dL Negative Urine Blood (Negative) Negative Urine Nitrite (Negative) Negative Urine Bilirubin (Negative) Negative Urine Urobilinogen (Up TO 0.2) EU/dL 0.2 Ur Leukocyte Esterase (Negative) Negative Urine RBC (0-2) HPF 0-2 Urine WBC (0-5) HPF 3-5 Ur Epithelial Cells (Negative) HPF Moderate Urine Crystals (Negative) HPF Negative Urine Bacteria (Negative) HPF Few Urine Casts (Negative) LPF Negative Urine Mucus (Negative) Negative Ur Culture Indicated? No/sq. contamination Urine Glucose (Negative) mg/dL Negative A.phagocytophil DNA PCR Cancelled B. divergens/MO-1 PCR Cancelled Babesia duncani (PCR) Cancelled Babesia microti DNA PCR Cancelled Borrelia (PCR) Cancelled Lyme Disease Antibody Cancelled E.chaffeensis DNA (PCR) Cancelled E.ewingii/canis DNA PCR Cancelled E. muris-like DNA (PCR) Cancelled <Gil Haro MD - Last Filed: 04/03/20 20:48> pt hd stable caox4 with capacity to make her own decisions and she is refusing to stay for repeat lab work, understands risks of leaving including possible and also permanent disability and is willing to accept these risks, advised f/u with pcp and return precautions given Medical Records Medical records reviewed: Yes I reviewed the patient's medical records. HPI <Ruthy Zarco MD - Last Filed: 04/08/20 11:07> General Mode of arrival: ambulatory . Date/Time Provider Initiated Documentation: 04/03/20 17:16 . Limitations to Documentation: no limitations . Information obtained by: patient, RN notes reviewed and old records reviewed . HPI Narrative: Ina Orellana is a 40-year-old woman with a history of hepatitis C, GERD, bipolar disorder, IV drug use in the past, endocarditis presenting to the emergency department with right lower quadrant pain. Patient reports that for the past 6 or 7 months she has been waking up intermittently in the middle of the night with severe sweats and vomiting. Patient reports that she has been seen here several times for this but discharged home with diagnosis of anxiety. Patient reports that she has a history of endocarditis, and was also told in the past that she has pockets of infection in her spleen that she has been told could 1 day because serious systemic infection. Patient reports that she is scheduled for an appointment with infectious disease at [facility] for these episodes of night sweats. Patient reports that yesterday early in the morning she woke up with night sweats and vomiting, also with right lower quadrant pain which is atypical for her. Patient reports that right lower quadrant pain has persisted and worsened throughout today. She reports that she has had no vomiting today but has been nauseous. Patient states that she is constipated at baseline for methadone which has not changed, and she is passing gas. She reports fevers since yesterday morning up to 100.7. She denies shortness of breath, cough, rash, numbness, weakness, dysuria. Patient has had valve replacement and cholecystectomy in the past. Related Data Home Medications Medication Instructions Recorded Confirmed gabapentin 800 mg PO TID 01/05/19 04/03/20 methadone 105 mg PO DAILY 01/05/19 04/03/20 ondansetron 4 mg PO Q8H PRN #30 tab 01/21/20 04/03/20 promethazine 25 mg HI Q6H PRN #12 each 01/21/20 04/03/20 Previous Rx's Medication Instructions Recorded ondansetron 4 mg PO Q8H PRN #30 tab 01/21/20 promethazine 25 mg HI Q6H PRN #12 each 01/21/20 Allergies Allergy/AdvReac Type Severity Reaction Status Date / Time No Known Allergies Allergy Unverified 04/03/20 17:23 General Stated Complaint: Abd Prob PATRICIA: 3 Review of Systems <Ruthy Zarco MD - Last Filed: 04/08/20 11:07> Narrative: Constitutional: denies fevers, reports night sweats Eyes: denies eye pain ENT: denies ear pain, dental pain, sore throat Cardiovascular: denies chest pain, edema Respiratory: denies SOB, cough GI: denies vomiting, diarrhea, reports abdominal pain : denies flank pain, dysuria, vag d/c MSK: denies back pain, neck pain, arthralgias, myalgias Skin: denies rash Neuro: denies headaches, numbness, weakness PFSH <Ruthy Zarco MD - Last Filed: 04/08/20 11:07> Medical History Anxiety (Chronic) Bipolar disorder (Chronic) Endocarditis (Acute) GERD (gastroesophageal reflux disease) (Chronic) Hepatitis C (Chronic) Obesity (Chronic) Surgical History History of heart valve replacement (Chronic) Social History Smoking/Tobacco Use Status: Current every day Tobacco Type: cigarettes Alcohol Intake: never Drug use: Daily Substance use type: 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 Do you feel safe at home: Yes Do you feel safe in your relationship?: Yes Exam <Ruthy Zarco MD - Last Filed: 04/08/20 11:07> Narrative Exam Narrative: Constitutional: diaphoretic, pleasant, conversing normally HENT: head atraumatic/normocephalic/normal inspection, mucous membranes moist Eyes: conjunctiva normal, sclera normal, pupils 3mm b/l Neck: no stridor, normal ROM, trachea midline Chest: normal inspection Resp: normal work of breathing, LCTAB Cardio: normal rate, normal rhythm, no murmur appreciated GI: abdomen soft, TTP RLQ without rebound or guarding, neg murphys, non- distended Back: normal inspection, no rash Skin: warm, dry, normal color, no rash Neuro: alert, not altered, grossly non-focal, normal tone Ext: no edema Psych: normal mood, normal affect, normal behavior Course <Ruthy Zarco MD - Last Filed: 04/08/20 11:07> Vital Signs Vital signs: Vital Signs Temperature 37.0 C 04/03/20 17:17 Pulse 114 H 04/03/20 17:17 Respiratory Rate 04/03/20 17:17 Blood Pressure 143/101 H 04/03/20 17:17 Pulse Oximetry 95 04/03/20 17:17 Temperature 37.0 C 04/03/20 17:17 Temperature Source Oral 04/03/20 17:17 Pulse 114 H 04/03/20 17:17 Respiratory Rate 04/03/20 17:17 Respiratory Effort Non-Labored 04/03/20 17:21 Blood Pressure 143/101 H 04/03/20 17:17 Blood Pressure Position Supine 04/03/20 17:17 Pulse Oximetry 95 04/03/20 17:17 Lab/Test Results Lab/Test Results: 04/03/20 17:18 Blood Blood Culture - Pending 04/03/20 17:18 Blood Blood Culture - Pending Sign Out <Ruthy Zarco MD - Last Filed: 04/08/20 11:07> Sign Out Data: Sign Out Comment: Patient signed out to Dr. Haro at shift change pending repeat BMP Last updated by Ruthy Zarco MD at 04/03/20 20:41
[2020-04-03 18:23] LABS: Abs Immature Grans 0.05 10^3/uL (0.0-0.06); Absolute Eosinophil Count 0.09 10^3/uL (0.0-0.7); Absolute Lymphocyte Count 3.81 10^3/uL (1.2-3.4); Absolute Monocyte Count 0.52 10^3/uL (0.1-0.8); Basophils % 0.4; Eosinophils % 0.8; HCT 42.9 % (36.0-46.0); HGB 14.1 g/dL (11.2-15.7); Immature Grans % 0.4; Lymphocytes % 34.3; MCH 28.4 pg (27.0-33.0); MCHC 32.9 % (32.0-36.0); MCV 86.5 fL (80-95); MPV 11.2 fL (8.0-11.0); Monocytes % 4.7; Neutrophils % 59.4; Platelet Count 289 10^3/uL (130-400); RBC 4.96 10^6/uL (3.93-5.22); RDW 14.2 % (11.7-14.6); RDW-SD 44.7 fL; WBC 11.12 10^3/uL (4.4-10.8)
[2020-04-03 18:25] LABS: Lactate 1.7 mmol/L (0.6-1.4)
[2020-04-03 18:30] LABS: Absolute Basophil Count 0.04 10^3/uL (0.0-0.2); Absolute Neutrophil Count 6.61 10^3/uL (1.2-6.7)
[2020-04-03 18:43] LABS: ALT 23 U/L (14-59); AST 21 U/L (15-37); Albumin 4.4 g/dL (3.4-5.0); Alkaline Phosphatase 88 U/L (46-116); BUN 14 mg/dL (7-18); Bilirubin, Total 0.6 mg/dL (0.2-1.0); CREATININE 1.46 mg/dL (0.55-1.02); Calcium 9.6 mg/dL (8.5-10.1); Chloride 102 mmol/L (98-107); Estimated GFR 41.79 (mL/min/1.73m2); Glucose 84 mg/dL (74-106); Lipase 73 U/L (73-393); Potassium 3.8 mmol/L (3.5-5.1); Sodium 139 mmol/L (136-145); Total Protein 8.6 g/dL (6.4-8.2)
[2020-04-03] MEDS: Normal Saline 1,000 ML 1000 ML IV ×2 (18:43→19:00)
[2020-04-03 18:57] LABS: Bilirubin Negative (Negative); Blood Negative (Negative); Clarity Sl Cloudy (Clear); Glucose Negative (Negative); Ketones Negative (Negative); Leukocyte Esterase Negative (Negative); Nitrite Negative (Negative); Specific Gravity >= 1.030 (1.005-1.025); Urobilinogen 0.2 EU/dL (Up TO 0.2); pH 5.5 (5-8)
[2020-04-03] MEDS: Omnipaque 350 MG/ML 100 ML BTL IJ (19:03)
[2020-04-03] MEDS: Normal Saline Flush 10 ML SYR IVP (19:04)
[2020-04-03] MEDS: Normal Saline - Diluent 50 ML VIAL IV (19:05)
[2020-04-03 19:16] LABS: Epithelial Cells Moderate HPF (Negative); RBC 0-2 HPF (0-2)
[2020-04-03 19:17] LABS: Bacteria Few HPF (Negative); C & S Indicated? No/Sq. Contamination; Casts Negative LPF (Negative); Crystals Negative HPF (Negative); Mucus Negative (Negative)
--- NOTE | 2020-04-03 19:40 | DI.VRAD_ITS ---
PROCEDURE INFORMATION: Exam: CT Abdomen And Pelvis With Contrast Exam date and time: 04/03/2020 18:01 Age: 30 years old Clinical indication: Abdominal pain; Localized; Right lower quadrant (rlq); Prior surgery; Surgery date: 6+ months; Surgery type: Gallbladder removed 2018? TECHNIQUE: Imaging protocol: Computed tomography of the abdomen and pelvis with intravenous contrast. Radiation optimization: All CT scans at this facility use at least one of these dose optimization techniques: automated exposure control; mA and/or kV adjustment per patient size (includes targeted exams where dose is matched to clinical indication); or iterative reconstruction. Contrast material: OMNIPAQUE 350; Contrast volume: 100 ml; Contrast route: INTRAVENOUS (IV); COMPARISON: CT ABDOMEN PELVIS W 01/29/2019 22:40 FINDINGS: Liver: Focal fat in the liver near the fissure for the ligamentum teres. No hepatic masses. Gallbladder and bile ducts: Cholecystectomy since the previous study. Mild extrahepatic biliary dilation most compatible with benign so-called reservoir effect in the setting of cholecystectomy. Pancreas: No ductal dilation. No masses. Spleen: No splenomegaly or focal lesions. Adrenals: No mass. Kidneys and ureters: No hydronephrosis. No renal masses. Stomach and bowel: Moderate amount of stool throughout the colon. No colitis or diverticulitis. Appendix: No evidence of appendicitis. Intraperitoneal space: No free fluid or free air. Vasculature: No abdominal aortic aneurysm. Lymph nodes: No significantly enlarged lymph nodes. Bladder: Unremarkable as visualized. Reproductive: Unremarkable as visualized. Bones/joints: No acute fracture. Soft tissues: Moderate-sized umbilical hernia containing fat is similar to the previous study. Narrow fascial aperture similar to the previous study. No inflammatory changes. IMPRESSION: 1. No acute findings. No appendicitis. 2. Incidental findings include cholecystectomy, umbilical hernia containing fat, the latter stable. Dictated and Authenticated by: Sera Wetzel MD. Ordering:ZAYRA Bliss MD
--- NOTE | 2020-04-03 19:55 | DI.RAD_ITS ---
EXAM: XR CHEST 2V PA LATERAL CLINICAL HISTORY: fever TECHNIQUE: 2D digital imaging was performed. COMPARISON: CR XR ABD FLAT UPRIGHT PA CHEST from 01/28/2019 FINDINGS: Sternal wires are present. The heart size is normal. The lungs are clear. No infiltrate or effusio n is seen. IMPRESSION: No acute pulmonary findings. DATA REPOSITORY: RADIATION DOSE DELIVERED:
--- NOTE | 2020-04-03 20:13 | DI.VRAD_ITS ---
PROCEDURE INFORMATION: Exam: XR Chest, 2 Views Exam date and time: 04/03/2020 19:55 Age: 30 years old Clinical indication: Fever TECHNIQUE: Imaging protocol: XR of the chest Views: 2 views. COMPARISON: CR XR ABD FLAT UPRIGHT PA CHEST 01/28/2019 20:29 FINDINGS: Tubes, catheters and devices: Surgical clips projecting over the upper mediastinum. Lungs: No airspace consolidation. No significant interstitial disease for the degree of inflation. Pleural space: No pleural effusion. No pneumothorax. Heart/Mediastinum: No cardiomegaly. Bones/joints: Median sternotomy wires. No displaced fracture. IMPRESSION: No acute cardiopulmonary pathology. Dictated and Authenticated by: Sera Wetzel MD. Ordering:ZAYRA Bliss MD
[2020-04-03 20:47] VITALS: BP 139/92; PULSE 89; RESP 16; TEMP 36.8; O2SAT 97
--- NOTE | 2020-04-03 20:51 | NUR.NOTE ---
Pt called nurse into room, states she needs to go home, her mother is waiting for her in the parking lot. Discussed plan to finish fluids then recheck labs. Pt does not want to wait. MD Haro aware. IV removed, discharge instructions reviewed. Pt encouraged to f/u with pcp for recheck. ambulated to exit with steady gait.
== END 2020-04-03 20:50 | disposition left against medical advice (07) ==
PROVIDERS: Student in an Organized Health Care Education/Training Program; Emergency Provider Emergency Medicine; PCP Nurse Practitioner Family
DX: R10.31 Right lower quadrant pain (principal); E86.0 Dehydration; R50.9 Fever, unspecified; Z53.29 Procedure and treatment not carried out because of patient's decision for other reasons
CPT/HCPCS: 36415; 80048; 80053; 81025; 83690; 87040; 87798; 96360; 96361; 99285; 71046; 74177; 81003; 81015; 83605; 85025; 86618; 99284; J3490

== ENCOUNTER 2020-04-10 03:18 | Emergency (ER) | payer MEDICAID, SELFPAY ==
[2020-04-10 03:19] VITALS: BP 141/82; PULSE 71; RESP 16; TEMP 36.2; O2SAT 99
--- NOTE | 2020-04-10 03:36 | W.ED.GENAD ---
Discharge Plan Disposition Patient Disposition: HOME Condition: Good Discharge Details Chief Complaint: GenMedical Clinical Impression: Anxiety Primary Care Provider: Linda Gunn ED Provider: Pavel Block Meds and New Rx's Prescriptions: Continued ondansetron 4 mg tablet,disintegrating 4 mg PO Q8H PRN (Reason: nausea and vomiting) Qty: 30 RF: 0 promethazine 25 mg suppository 25 mg [place] Q6H PRN (Reason: nausea and vomiting) Qty: 12 RF: 0 gabapentin 300 mg Capsule 800 mg PO TID RF: 0 methadone 10 MG/ML concentrate 105 mg PO DAILY RF: 0 dexmethylphenidate [Focalin XR] 35 mg capsule,ER biphasic 50-50 35 mg PO DAILY RF: 0 Discharge Instructions Instructions: Anxiety (ED) Additional Instructions: Previous laboratory results, blood cultures, imaging have not revealed a medical cause for your symptoms. No further work-up in the ED at this time. Follow-up with primary care and with your mental health provider for further evaluation and consideration of antianxiety medication. Return to ED for new concerning symptoms. Referrals: Lnida Gunn [Primary Care Provider] - Medical Decision Making I reviewed the patient's visits to ED this year. She has had TSH checked twice. Blood cultures from the are negative. CT scan of the abdomen pelvis negative from the . Patient is reporting no change in her symptoms over the course of a year. She is unable to explain anything other than feeling anxious, short of breath, nauseated, sweaty. This is not new. She is not on anything for anxiety; she states because she is on methadone. Patient given 1 mg Ativan p.o. Patient is calm down, no longer crying and sleeping now. States no ride until 6 or 7 am. No further work up in ED as chronic problem with previous negative work ups in ED and can be further pursued with her PCP and mental health provider. Medical Records Medical records reviewed: Yes I reviewed the patient's medical records. HPI General Mode of arrival: EMS. Date/Time Provider Initiated Documentation: 04/10/20 03:21. Limitations to Documentation: no limitations. Information obtained by: patient, RN notes reviewed and old records reviewed. HPI Narrative: Patient presents to ED by EMS with complaint of not feeling well. Patient reports that for the last year she wakes up with sweats and chills and anxiety. This happens multiple times and she has been seen here as well as by primary care. She reports it is been like this ever since she had her valve surgery for endocarditis. She was just here on the with abdominal pain. Work-up including chest x-ray CT scan blood cultures were all negative. She did have evidence of some dehydration with a creatinine bump but did not stay for repeat labs. She denies abdominal pain vomiting or diarrhea currently. She complains of nausea and anxiety and sweats. This is not any different than previous. She cannot elaborate on I just do not feel right. She denies pain. She is in her room crying. She does not understand why known cannot find anything wrong with her. She is followed by primary care and by mental health. Related Data Home Medications Medication Instructions Recorded Confirmed gabapentin 800 mg PO TID 01/05/19 04/10/20 methadone 105 mg PO DAILY 01/05/19 04/10/20 ondansetron 4 mg PO Q8H PRN #30 tab 01/21/20 04/10/20 promethazine 25 mg [place] Q6H PRN #12 each 01/21/20 04/10/20 dexmethylphenidate [Focalin XR] 35 mg PO DAILY 04/10/20 04/10/20 Previous Rx's Medication Instructions Recorded ondansetron 4 mg PO Q8H PRN #30 tab 01/21/20 promethazine 25 mg [place] Q6H PRN #12 each 01/21/20 Allergies Allergy/AdvReac Type Severity Reaction Status Date / Time No Known Allergies Allergy Unverified 04/10/20 03:23 General Stated Complaint: GenMedical PATRICIA: 3 Review of Systems Narrative: As documented in HPI otherwise negative as below. Const: no fever, weakness Resp: no cough, SOB, pleuritic pain CV: no CP, diaphoresis, edema, syncope GI: no abdominal pain, vomiting, diarrhea Neuro: no headache, numbness, focal weakness, confusion [facility] Medical History Anxiety (Chronic) Bipolar disorder (Chronic) Endocarditis (Acute) GERD (gastroesophageal reflux disease) (Chronic) Hepatitis C (Chronic) Obesity (Chronic) Surgical History History of heart valve replacement (Chronic) Social History Smoking/Tobacco Use Status: Current every day Tobacco Type: cigarettes Alcohol Intake: never Drug use: Daily Substance use type: 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 Do you feel safe at home: Yes Do you feel safe in your relationship?: Yes Additional Social history: Exam Narrative Exam Narrative: Vitals: Afebrile. Slightly elevated blood pressure but otherwise normal vitals and normal room air pulse ox. Const: Obese female crying.. HEENT: NC/AT. Normal facial exam. Eyes: Normal conjunctiva and sclera. Neck: Supple. Trachea midline. Lungs: Normal respiratory effort. Lungs are clear. Cor: RRR without murmur/gallop. Good radial pulses. GI: Soft. NT/ND. No guarding or rebound. Neuro: A+O x 3. Normal speech, mentation. Cranial nerves II - XII grossly intact. No gross motor or sensory deficit. Skin: Warm, diaphoretic. Psych: Anxious, crying, no SI. Course Vital Signs Vital signs: Vital Signs Temperature 97.2 F L 04/10/20 03:19 Pulse 71 04/10/20 03:19 Respiratory Rate 16 04/10/20 03:19 Blood Pressure 141/82 H 04/10/20 03:19 Pulse Oximetry 99 04/10/20 03:19 Temperature 97.2 F L 04/10/20 03:19 Temperature Source Temporal Artery Scan 04/10/20 03:19 Pulse 71 04/10/20 03:19 Respiratory Rate 16 04/10/20 03:19 Respiratory Effort 04/10/20 03:25 Blood Pressure 141/82 H 04/10/20 03:19 Blood Pressure Position Sitting 04/10/20 03:19 Pulse Oximetry 99 04/10/20 03:19 Oxygen Delivery Method Room Air 04/10/20 03:19 Oxygen Flow Rate 0 04/10/20 03:19 Pain Level 7 04/10/20 03:19
[2020-04-10] MEDS: LORazepam 1 MG TAB PO (03:39)
--- NOTE | 2020-04-10 03:43 | NUR.NOTE ---
Nursing Note: Patient provided with socks from warmer as her socks are wet. Encouraged patient to remove wet socks and place on dry socks or no socks at all. Patient reports that she is homeless, lives in a tent in the [facility] [place] that is soaking wet right now.
--- NOTE | 2020-04-10 03:52 | NUR.NOTE ---
Nursing Note: Patient was ambulatory to restroom independently with no gait disturbance. Patient returns to room and yells out help me, please someone help me. This RN in to room to investigate. Patient complaining of being cold. Informed patient that there is a gown on the nightstand she may change into if her clothes are wet. Also encouraged patient to change socks. She reports she needed a larger pair so this was provided to patient. Patient asked this RN to change her socks for her. Informed patient that she can change her socks herself. Patient also requested blanket to be wrapped around her. Encouraged patient that she is able to perform that herself.
== END 2020-04-10 05:00 | disposition home or self-care (01) ==
PROVIDERS: Emergency Provider Emergency Medicine; PCP Nurse Practitioner Family
DX: F41.9 Anxiety disorder, unspecified (principal); R11.0 Nausea
CPT/HCPCS: 99283

== ENCOUNTER 2020-04-22 04:06 | Emergency (ER) | payer MEDICAID, SELFPAY ==
[2020-04-22 04:10] VITALS: BP 127/76; PULSE 72; RESP 20; TEMP 36.1; O2SAT 100
--- NOTE | 2020-04-22 04:24 | W.ED.GENAD ---
Discharge Plan Disposition Patient Disposition: AGAINST MEDICAL ADVICE Condition: Stable Discharge Details Chief Complaint: GenMedical Clinical Impression: Chill, Chronic pulpitis Primary Care Provider: Linda Gunn ED Provider: Arie Verduzco Home Meds and New Rx's Prescriptions: New penicillin V potassium 500 mg tablet 500 mg PO QID 10 Days Qty: 40 RF: 0 Continued ondansetron 4 mg tablet,disintegrating 4 mg PO Q8H PRN (Reason: nausea and vomiting) Qty: 30 RF: 0 promethazine 25 mg suppository 25 mg WV Q6H PRN (Reason: nausea and vomiting) Qty: 12 RF: 0 gabapentin 300 mg Capsule 800 mg PO TID RF: 0 methadone 10 MG/ML concentrate 105 mg PO DAILY RF: 0 dexmethylphenidate [Focalin XR] 35 mg capsule,ER biphasic 50-50 35 mg PO DAILY RF: 0 Discharge Instructions Instructions: Against Medical Advice (ED) Additional Instructions: At this time it is unclear if you are suffering withdrawal symptoms that is causing your chills and sweats, or if this is transient bacteremia from your teeth. Please take the penicillin as directed and follow-up closely with your dentist for removal of the infected teeth. We have provided a dental sheet in the discharge instructions dentist whom you should contact. Please discuss with your methadone doctor potentially altering your dose. If you notice any worsening of your symptoms, or any new symptoms such as vomiting, diarrhea, fever, chills, shortness of breath, chest pain, numbness, weakness, or fainting , please return immediately to the emergency department for reevaluation. Please follow up with your primary care provider as soon as possible for reassessment and reevaluation. As always, it was a pleasure participating in your medical care today. Referrals: Linda Gunn [Primary Care Provider] - Discharge Data Discharge Date/Time-TO BE ENTERED AT DEPARTURE: 04/22/20 05:50 Medical Decision Making This is a 30-year-old female with a past medical history of anxiety, bipolar, previous endocarditis requiring cardiac valve replacement, hepatitis C, previous IV drug use, current methadone use, who presents today for evaluation of chills, sweats, and generalized feeling of unwellness. Patient presents via EMS. Over the past 2 months the patient has had 3-4 episodes like this, she is currently homeless sleeping in a tent. She states that she wakes up in the middle of the night with chills, feeling horrible like I am detoxing. She is taking methadone and has not missed any doses. She takes it in the morning. She denies any fevers, cough, abdominal pain, vomiting, diarrhea, chest pain, shortness of breath, numbness, tingling, weakness. She has had multiple work-ups, the most recent in-depth work-up was 2-1/2 weeks ago where she had blood cultures which were negative for growth, labs which were otherwise unremarkable, and otherwise benign work-up at that time. Aside for going to her methadone clinic the patient has not been following up with her PCP. She does have a history of dental caries, but she has not seen a dentist recently. She vehemently denies any IV drug use and states that she has been clean for the last 2 years. She denies any illicit drug use otherwise whatsoever aside for marijuana use. She has no other complaints at this time. She states that her symptoms tonight are identical to her previous episodes that she has had recently. She states often she gets Ativan this helps some of the symptoms but she does not feel like it is fixing the cause. She denies any other sick contacts or any other complaints. No other modifying factors. Physical exam is notably unremarkable. She does have a chronic murmur noted on exam likely from her valve surgery. She has notably poor dentition for her lower teeth, but otherwise has clear lungs, no abdominal pain, no meningeal signs. No clinical evidence of meningitis, bacteremia, or other abnormality. She is notably sweaty, but her respirations are clear, her oxygen is 100%, heart rates normal with no tachycardia especially in the absence of any cardiac medication. She does take her methadone regularly. Symptoms lead to a broad differential, but she demonstrates no evidence of sepsis at all right now with no evidence of fever. Blood cultures from 2-1/2 weeks ago were notably negative. This may indeed be a component of withdrawals as she is at the tail end of her methadone dose, I did discuss with her the importance of discussing this with her methadone doctor, whom she states she was supposed to talk about this with today at her methadone appointment. Also of concern is that potentially she may be suffering from mild brief transient episodes of bacteremia secondary to her notable dental caries. She does not demonstrate evidence of sepsis though otherwise whatsoever however her symptoms of chills and night sweats intermittently occurring is certainly concerning. While her teeth are certainly an area of concern she has not seen any dentist in regards to this. I do feel that starting her on penicillin for treatment of the dental caries is reasonable, additionally I do feel that she requires prompt follow-up with her dentist in regards to this. I also discussed with her why she has not followed up with her primary care provider in regards to this despite multiple recurrent episodes, and at this time she cannot give a good reason. Certainly she is in a tough situation with her current homelessness state, we will reach out to our care managers to help with the patient to facilitate her following up closely with her PCP. We will perform a repeat work-up to evaluate for any signs of infectious etiology, and if this is negative I feel she can be discharged home with a prescription for penicillin for her teeth, close follow-up with her methadone doctor this morning, and close follow-up with her PCP on an outpatient basis. 6:30 AM Patient unfortunately left AGAINST MEDICAL ADVICE while I was in another patient's room. She left stating that she needed to go to the methadone clinic. Of note I did personally call the methadone clinic at 5:30 in the morning and discussed with them the patient being here and they made very clear that the patient had plenty of time until 10 AM to come in. This was conveyed to the patient prior to her leaving. I am uncertain as to why she left but she told the nursing staff that I need to get to the methadone clinic. Patient is of a appropriate age to make decisions. The patient is of sound mind, appears clinically sober, and has capacity to make decisions by my clinical exam. We have provided options for treatment and nursing staff discussed the risks and benefits of these options and refusing these options, including and disability specific to the patient's pathology. Patient was able to discuss the risks and benefits and alternatives of treatment and refusing treatment. . The patient chooses to leave before evaluation and treatment is complete AGAINST MEDICAL ADVICE. Of note during her stay here she was given a topical clonidine patch which seemed to improve her symptoms. She is not given any opiates or benzos. Per nursing staff blood pressure was stable when the patient left AMA. After discharge some of her labs did come back. She reassuringly shows no elevation in her white count, no left shift of significance, no bandemia. ESR is normal, CRP is mildly elevated. HIV antibody testing still pending. No transaminitis or other abnormality. Out of an abundance of precaution we will try to get in contact with the patient and I will print off the prescription for penicillin for her teeth, give her dental sheet, and give my continued recommendations for management. This is certainly not ideal, however this is the best that I can do at this time with the patient's decision to leave AGAINST MEDICAL ADVICE. HPI General Date/Time Provider Initiated Documentation: 04/22/20 04:17. HPI Narrative: This is a 30-year-old female with a past medical history of anxiety, bipolar, previous endocarditis requiring cardiac valve replacement, hepatitis C, previous IV drug use, current methadone use, who presents today for evaluation of chills, sweats, and generalized feeling of unwellness. Patient presents via EMS. Over the past 2 months the patient has had 3-4 episodes like this, she is currently homeless sleeping in a tent. She states that she wakes up in the middle of the night with chills, feeling horrible like I am detoxing. She is taking methadone and has not missed any doses. She takes it in the morning. She denies any fevers, cough, abdominal pain, vomiting, diarrhea, chest pain, shortness of breath, numbness, tingling, weakness. She has had multiple work-ups, the most recent in-depth work-up was 2-1/2 weeks ago where she had blood cultures which were negative for growth, labs which were otherwise unremarkable, and otherwise benign work-up at that time. Aside for going to her methadone clinic the patient has not been following up with her PCP. She does have a history of dental caries, but she has not seen a dentist recently. She vehemently denies any IV drug use and states that she has been clean for the last 2 years. She denies any illicit drug use otherwise whatsoever aside for marijuana use. She has no other complaints at this time. She states that her symptoms tonight are identical to her previous episodes that she has had recently. She states often she gets Ativan this helps some of the symptoms but she does not feel like it is fixing the cause. She denies any other sick contacts or any other complaints. No other modifying factors. Related Data Home Medications Medication Instructions Recorded Confirmed gabapentin 800 mg PO TID 01/05/19 04/10/20 methadone 105 mg PO DAILY 01/05/19 04/10/20 ondansetron 4 mg PO Q8H PRN #30 tab 01/21/20 04/10/20 promethazine 25 mg WV Q6H PRN #12 each 01/21/20 04/10/20 dexmethylphenidate [Focalin XR] 35 mg PO DAILY 04/10/20 04/10/20 penicillin V potassium 500 mg PO QID 10 Days #40 tab 04/22/20 Previous Rx's Medication Instructions Recorded ondansetron 4 mg PO Q8H PRN #30 tab 01/21/20 promethazine 25 mg WV Q6H PRN #12 each 01/21/20 penicillin V potassium 500 mg PO QID 10 Days #40 tab 04/22/20 Allergies Allergy/AdvReac Type Severity Reaction Status Date / Time No Known Allergies Allergy Unverified 04/22/20 04:09 General Stated Complaint: GenMedical PATRICIA: 4 Review of Systems All systems reviewed & are unremarkable except as noted in HPI and below PFSH Medical History Anxiety (Chronic) Bipolar disorder (Chronic) Endocarditis (Acute) GERD (gastroesophageal reflux disease) (Chronic) Hepatitis C (Chronic) Obesity (Chronic) Surgical History History of heart valve replacement (Chronic) Social History Smoking/Tobacco Use Status: Current every day Tobacco Type: cigarettes Alcohol Intake: never Drug use: Daily Substance use type: 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 Do you feel safe at home: Yes Do you feel safe in your relationship?: Yes Additional Social history: Exam Narrative Exam Narrative: 1.Const: Well-nourished, Well-developed, appearing stated age 2.Eyes: PERRL, no conjunctival injection, and symmetrical lids. 3.ENT: Atraumatic external nose and ears. Moist MM. Neck: Symmetric, trachea midline, No thyromegaly. Notably poor dentition in the lower teeth, multiple dental caries. Patient demonstrates good movement of cervical neck. There is no nuchal rigidity, no nuchal tenderness. Patient is able to flex the neck without any difficulty or significant pain. Negative Kernig's and Brudzinski sign. 4.CVS: +S1/S2,. Peripheral pulses 2+ and equal in all extremities. Brisk capillary refill in all extremities. Mild cardiac murmur. 5.RESP: Unlabored respiratory effort. Clear to auscultation bilaterally. No wheezes rales or rhonchi 6.GI: Soft, Nontender/Nondistended, No hepatosplenomegaly. No guarding or rebound. 7.MSK: Normocephalic/Atraumatic, Extremities w/o deformity or ttp No cyanosis or clubbing, Normal movement of all extremities 8.Skin: Warm, Dry. No rashes or lesions. 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 Sensation grossly intact, no focal neurologic deficits. 10.Psych: (AAO) x3. Appropriate mood and affect Course Vital Signs Vital signs: Vital Signs Temperature 36.1 C L 04/22/20 04:10 Pulse 72 04/22/20 04:10 Respiratory Rate 20 04/22/20 04:10 Blood Pressure 127/76 04/22/20 04:10 Pulse Oximetry 100 04/22/20 04:10 Temperature 36.1 C L 04/22/20 04:10 Temperature Source Temporal Artery Scan 04/22/20 04:10 Pulse 72 04/22/20 04:10 Respiratory Rate 20 04/22/20 04:10 Respiratory Effort 04/22/20 04:10 Blood Pressure 127/76 04/22/20 04:10 Pulse Oximetry 100 04/22/20 04:10 Oxygen Delivery Method Room Air 04/22/20 04:10 Oxygen Flow Rate 0 04/22/20 04:10 Lab/Test Results Lab/Test Results: 04/22/20 04:22 Blood Blood Culture - Pending 04/22/20 04:22 Blood Blood Culture - Pending
[2020-04-22] MEDS: cloNIDine 0.1 MG PATCH TD (04:55)
[2020-04-22 05:10] LABS: Lactate 0.7 mmol/L (0.6-1.4)
[2020-04-22 05:12] LABS: Abs Immature Grans 0.04 10^3/uL (0.0-0.06); Absolute Basophil Count 0.03 10^3/uL (0.0-0.2); Absolute Eosinophil Count 0.18 10^3/uL (0.0-0.7); Absolute Lymphocyte Count 1.69 10^3/uL (1.2-3.4); Absolute Monocyte Count 0.29 10^3/uL (0.1-0.8); Absolute Neutrophil Count 7.18 10^3/uL (1.2-6.7); Basophils % 0.3; Eosinophils % 1.9; HCT 41.6 % (36.0-46.0); HGB 13.2 g/dL (11.2-15.7); Immature Grans % 0.4; MCH 27.8 pg (27.0-33.0); MCHC 31.7 % (32.0-36.0); MCV 87.6 fL (80-95); MPV 10.5 fL (8.0-11.0); Monocytes % 3.1; Neutrophils % 76.3; Nucleated RBC 0 %; Platelet Count 270 10^3/uL (130-400); RBC 4.75 10^6/uL (3.93-5.22); RDW 15.1 % (11.7-14.6); RDW-SD 48.7 fL; WBC 9.41 10^3/uL (4.4-10.8)
[2020-04-22] MEDS: Penicillin V POTASSIUM 500 MG TAB PO (05:24)
[2020-04-22] MEDS: Normal Saline 1,000 ML 1000 ML IV (05:24)
[2020-04-22 05:26] LABS: C-Reactive Protein 1.67 mg/dL (0.0-0.3)
[2020-04-22 05:30] LABS: ALT 19 U/L (14-59); AST 16 U/L (15-37); Albumin 3.8 g/dL (3.4-5.0); Alkaline Phosphatase 82 U/L (46-116); Anion Gap 6.7 mmol/L (3-11); BUN 11 mg/dL (7-18); Bilirubin, Total 0.2 mg/dL (0.2-1.0); CO2 28.3 mmol/L (21.0-32.0); CREATININE 0.88 mg/dL (0.55-1.02); Calcium 8.8 mg/dL (8.5-10.1); Chloride 105 mmol/L (98-107); Glucose 103 mg/dL (74-106); Potassium 3.7 mmol/L (3.5-5.1); Sodium 140 mmol/L (136-145); Total Protein 7.7 g/dL (6.4-8.2)
[2020-04-22 05:50] LABS: ESR 19 mm/hr (0-20)
--- NOTE | 2020-04-22 06:21 | NUR.NOTE ---
Nursing Note: referal [id number] to cm to follow up with pcp to stop frequent visits04/22/20
[2020-04-22 07:06] LABS: HIV 1/2 Ab Rapid Negative (Negative)
--- NOTE | 2020-04-22 07:15 | NUR.NOTE ---
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 0715. Sarai Hernandez
--- NOTE | 2020-04-22 14:20 | CMPROGNOTE_ITS ---
- If Service Date Differs Date of service: 04/22/20 Time of Service: 14:20 Care Management Progress Note CM telephones [facility], Ina's PCP's office, to ask that they outreach to [facility] to schedule a follow-up appointment. CM will continue to follow.
--- NOTE | 2020-05-09 20:45 | NUR.NOTE ---
Addendum entered by Sarai Hernandez 05/09/20 21:02: Dr. Block called back asking about blood cultures. She had a set in April and March of 2020 and they were no growth. He was advised. Sarai Hernandez. Original Note: Nursing Note: Dr. Block is working at [facility] and called asking for me to look up information in her chart. I spoke with Kina the nursing die cast supervisor and she is aware and is alright with me giving him the information. I gave him the date of her last echocardiogram, the results of her last abd/pelvic CT and the date that he last saw the patient all verbally over the phone. Sarai Hernandez
--- NOTE | 2020-06-18 14:06 | NUR.NOTE ---
--Ina called stating she never filled her antibiotic prescription for her teeth and wants to come to the ER to get it. Prescription was from 04/22/20. Needs reevaluation of her problem at this time. Pt verbalizes understanding. Nursing Note:
== END 2020-04-22 05:50 | disposition left against medical advice (07) ==
LOC: ER 05:29
PROVIDERS: Emergency Provider Student in an Organized Health Care Education/Training Program; PCP Nurse Practitioner Family
DX: R68.83 Chills (without fever) (principal); K04.01 Reversible pulpitis; F11.20 Opioid dependence, uncomplicated; Z53.29 Procedure and treatment not carried out because of patient's decision for other reasons; Z59.0 Homelessness
CPT/HCPCS: 36415; 80053; 85652; 87040; 96360; 99284; 83605; 85025; 86140; 99283

== ENCOUNTER 2020-06-27 14:30 | Outpatient (REF) | payer MEDICAID, SELFPAY ==
[2020-06-30 16:15] LABS: Patient Race White; SARS-CoV-2 RNA Undetected (Undetected); SARS-CoV-2 Specimen Source Nasal
== END 2020-06-27 14:50 ==
LOC: NCHCN 14:30
PROVIDERS: PCP Nurse Practitioner Family; Visit Provider Nurse Practitioner Family
DX: J02.9 Acute pharyngitis, unspecified (principal)
CPT/HCPCS: U0003

== ENCOUNTER 2020-07-05 09:46 | Emergency (ER) | payer MEDICAID, SELFPAY ==
[2020-07-05 09:50] VITALS: BP 155/112; PULSE 93; RESP 18; TEMP 36.3; O2SAT 98
[2020-07-05 09:55] VITALS: RESP 18
--- NOTE | 2020-07-05 10:52 | NUR.NOTE ---
Nursing Note: mental health Phoebe here to see pt.
--- NOTE | 2020-07-05 10:52 | NUR.NOTE ---
1052 mental health with patient
--- NOTE | 2020-07-05 11:27 | W.ED.GENAD ---
Discharge Plan Disposition Patient Disposition: HOME Condition: Stable Discharge Details Clinical Impression: Anxiety and depression Primary Care Provider: Linda Gunn ED Provider: Luis Fraser Home Meds and New Rx's Prescriptions: Continued ondansetron 4 mg tablet,disintegrating 4 mg PO Q8H PRN (Reason: nausea and vomiting) Qty: 30 RF: 0 promethazine 25 mg suppository 25 mg OR Q6H PRN (Reason: nausea and vomiting) Qty: 12 RF: 0 gabapentin 300 mg Capsule 800 mg PO TID RF: 0 methadone 10 MG/ML concentrate 105 mg PO DAILY RF: 0 dexmethylphenidate [Focalin XR] 35 mg capsule,ER biphasic 50-50 35 mg PO DAILY RF: 0 Discharge Instructions Instructions: Depression (ED), Anxiety (ED) Additional Instructions: Please follow the instructions given to you by the mental health team. They will be reaching out to you to help expedite outpatient care and appointments. Please watch for new or worsening symptoms and return to the ER for any concerns. Discharge Data Discharge Date/Time-TO BE ENTERED AT DEPARTURE: 07/05/20 11:40 Medical Decision Making 30-year-old female presents for increasing depression, anxiety, mood swings over the past 3 months, no obvious trigger. She reports that Ativan has helped well in the past but because of her methadone treatment, they are concerned about treating her with Ativan. She denies any suicidal or homicidal ideations. She contacted mental health earlier who recommended coming to the ER for evaluation. Patient feels as though she can safely be discharged and does not believe that hospitalization will be required. She currently has no medical concerns. Medical examination completed, no obvious emergent process. I do not believe that she will require emergent inpatient hospitalization and therefore will not reflexively obtain laboratory values. I will contact mental health and have them evaluate the patient. Mental health evaluation completed, please see their note. Patient was able to the safety planned home, she plans to stay with her mother. They will work on outpatient resources, and reassess. They will also look into the potential for a crisis bed in the near future if she is not doing well with her mother safety planned. Patient is agreeable to this plan and has no additional questions or concerns. Upon discharge she feels safe, denies any suicidal or homicidal ideations. She is calm, no longer anxious. Medical Records Medical records reviewed: Yes I reviewed the patient's medical records. HPI General Mode of arrival: ambulatory. Date/Time Provider Initiated Documentation: 07/05/20 09:57. Limitations to Documentation: no limitations. Information obtained by: patient. HPI Narrative: This is a 30-year-old female with past medical history that includes anxiety, bipolar disorder, endocarditis, GERD, hepatitis C, frequent headaches, IV drug abuse, currently on methadone. She is having increasing anxiety, depression, mood swings over the past 3 months, no known trigger. She reports that Ativan has helped her in the past but because she is on methadone they are trying not to have her on both medications. She feels as though there is not good communication between her primary care provider, her project management specialist, and her psychiatrist. She is actually been seen in other ERs over the past week total of 3 times, just cannot take control of her emotions. She does state that she had a cough a couple days ago and was placed on antibiotics for potential pneumonia however the cough is getting much better and she currently has no medical complaints such as fever, headache, chest pain, shortness of breath, cough abdominal pain, nausea, vomiting. She states that her mother is a good resource however when she is not staying there she seems to have worsening symptoms. She denies any suicidal or homicidal ideations at this time. Patient does feel safe. She is concerned because her psychiatrist is leaving the practice and she is not sure who will assume her mental health care. She contacted mental health earlier today and they recommended coming to the ER so that she may be evaluated. She does tell me that she feels as though she could safely be discharged home and does not believe that inpatient psychiatric care will likely be indicated. Related Data Home Medications Medication Instructions Recorded Confirmed gabapentin 800 mg PO TID 01/05/19 07/05/20 methadone 105 mg PO DAILY 01/05/19 07/05/20 ondansetron 4 mg PO Q8H PRN #30 tab 01/21/20 07/05/20 promethazine 25 mg OR Q6H PRN #12 each 01/21/20 07/05/20 dexmethylphenidate [Focalin XR] 35 mg PO DAILY 04/10/20 07/05/20 Previous Rx's Medication Instructions Recorded ondansetron 4 mg PO Q8H PRN #30 tab 01/21/20 promethazine 25 mg OR Q6H PRN #12 each 01/21/20 Allergies Allergy/AdvReac Type Severity Reaction Status Date / Time No Known Allergies Allergy Unverified 07/05/20 09:54 General Stated Complaint: Anxiety PATRICIA: 3 Review of Systems Constitutional Constitutional: Denies fever(s) Cardiovascular Cardiovascular: Denies chest pain and Denies dyspnea Respiratory Respiratory: Denies dyspnea Gastrointestinal Gastrointestinal: Denies abdominal pain, Denies nausea and Denies vomiting Musculoskeletal Musculoskeletal: Denies back pain Integumentary/Breasts Skin/Breast: Denies rash Neurologic Neurologic: Reports headache(s) (No headache currently) Psychiatric Psychiatric: Reports anxiety, Reports depression, Reports mood swings, Reports panic attacks, Denies homicidal ideation and Denies suicidal ideation [facility] Medical History Anxiety Bipolar disorder Endocarditis GERD (gastroesophageal reflux disease) Hepatitis C Obesity Surgical History History of heart valve replacement Social History Smoking/Tobacco Use Status: Current every day Tobacco Type: cigarettes Smoking risk assessment performed?: Yes Alcohol Intake: never Drug use: Daily Substance use type: 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 Do you feel safe at home: Yes Do you feel safe in your relationship?: Yes Exam Const General: cooperative, healthy appearing, comfortable, no acute distress and anxious Orientation: alert, awake and oriented x3 HENMT Head: normal to inspection, normocephalic and atraumatic Face and sinus: normal facial exam Mouth: moist mucous membranes Eyes General: appearance normal, both eyes and all related structures Alignment and Position: alignment normal Periorbital: periorbital findings normal Eyelids: eyelids normal Conjunctivae: conjunctivae normal Sclera: sclerae normal Cornea: corneas normal Pupils: PERRL EOM: EOM intact bilaterally Direct ophthalmoscopy: normal light reflex Neck Neck: normal visual inspection, full ROM, trachea midline and supple Resp Effort & Inspection: normal respiratory effort and able to speak in complete sentences Auscultation: clear to auscultation bilaterally Cardio Rate: regular rate Rhythm: regular rhythm GI Palpation: soft and nontender Skin General skin exam: no rashes or lesions noted Neuro General: patient alert, patient awake, patient oriented x3, moves all extremities and no focal motor deficits Cognition: normal cognition Speech: speech normal Gait: normal gait Motor: muscle tone normal throughout Sensory Exam: no sensory deficits noted Psych Appearance: grossly normal Mental Status: mental status grossly normal Speech and Movement: speech and movement normal Mood: dysthymic mood Affect: sad Attitude: cooperative Thought Process: normal Thought Content: normal Insight: fair Judgment: fair Course Vital Signs Vital signs: Vital Signs Temperature 36.3 C L 07/05/20 09:50 Pulse 93 H 07/05/20 09:50 Respiratory Rate 18 07/05/20 09:50 Blood Pressure 155/112 H 07/05/20 09:50 Pulse Oximetry 98 07/05/20 09:50 Temperature 36.3 C L 07/05/20 09:50 Temperature Source Temporal Artery Scan 07/05/20 09:50 Pulse 93 H 07/05/20 09:50 Respiratory Rate 18 07/05/20 09:55 Respiratory Effort Non-Labored 07/05/20 09:55 Respiratory Depth Normal 07/05/20 09:55 Respiratory Pattern Normal 07/05/20 09:55 Blood Pressure 155/112 H 07/05/20 09:50 Blood Pressure Position Sitting 07/05/20 09:50 Pulse Oximetry 98 07/05/20 09:50 Oxygen Delivery Method Room Air 07/05/20 09:50 Oxygen Flow Rate 0 07/05/20 09:50
== END 2020-07-05 11:40 | disposition home or self-care (01) ==
PROVIDERS: Emergency Provider Physician Assistant; PCP Nurse Practitioner Family
DX: F41.8 Other specified anxiety disorders (principal)
CPT/HCPCS: 99283; 99281

== ENCOUNTER 2020-08-28 05:13 | Emergency (ER) | payer MEDICAID, SELFPAY ==
--- NOTE | 2020-08-28 05:15 | DI.CT_ITS ---
EXAM: CT ABDOMEN PELVIS W CLINICAL HISTORY: 1 week umb hernia rep post op, pain everywhere TECHNIQUE: Imaging Protocol: Axial computed tomography images with coronal and sagittal reformatted images were created and reviewed CONTRAST MATERIAL: Intravenous: Omnipaque 350 Contrast volume:100 mL Oral: No COMPARISON: CT CT ABDOMEN PELVIS W from 04/03/2020 FINDINGS: The examination is limited due to patient motion artifact. ABDOMEN: Lung Bases: Normal where visualized. Liver: Normal density. No measurable mass. Portal, Superior Mesenteric, and Splenic Veins: Unremarkable. Gallbladder and Biliary Tract: Status post cholecystectomy. No biliary ductal dilatation. Pancreas: Normal density, no abnormal calcifications or inflammatory process. Spleen: Lobulated contours which may represent scarring. No discrete mass. Adrenals: No masses seen. Kidneys: Normal size, contour and axis. No radiodense stones or obstructive uropathy. Small cyst on t he left kidney. No further follow-up is recommended. Note is made of a retroaortic left renal vein. Abdominal Aorta: Abdominal portion non-dilated. Bowel: No evidence of obstruction. Mild bowel wall thickening seen in loops of small bowel in the lef t upper quadrant. Appendix is unremarkable. Peritoneal Cavity: No ascites, collection or mesenteric inflammatory response. Lymph Nodes: Within normal limits. Bones: Unremarkable. Sternal wires are present. Soft Tissues: Postsurgical changes are seen in the periumbilical region consistent with the patient's prior hernia repair. There is mild infiltration in the anterior abdominal wall subcutaneous fat like ly postsurgical. There does appear to be a small fat containing periumbilical hernia. There is minima l internal soft tissue present. No focal fluid collection is seen to suggest an abscess. PELVIS: Bladder: Not completely distended. No gross abnormality. Reproductive Organs: 2 cm right ovarian cyst. This is likely physiologic. Reproductive organs are oth erwise unremarkable. Lymph Nodes: Within normal limits. Bones: Within normal limits. IMPRESSION: 1. Postsurgical changes are seen in the periumbilical region consistent with patient's recent hernia repair. No focal fluid collection is seen to suggest an abscess. 2. Question of mild thickening of the wall of loops of small bowel in the left upper quadrant. Please correlate clinically to assess for possibility of enteritis. RADIATION DOSE DELIVERED: 1,510.95mGy.cm Total DLP DATA REPOSITORY: All CT scans at this facility are submitted to the National Radiology Data Registry (NRDR) Dose Index Registry (DIR) with the [employer] (A[employer]). RADIATION OPTIMIZATION: All CT scans at this facility use at least one of these dose optimization te chniques: automated exposure control; mA and/or kV adjustment per patient size (includes targeted exa ms where dose is matched to clinical indication); or iterative reconstruction.
[2020-08-28 05:16] VITALS: BP 123/86; PULSE 67; RESP 22; TEMP 36.8; O2SAT 98
--- NOTE | 2020-08-28 05:20 | W.ED.GENAD ---
Discharge Plan Disposition Patient Disposition: HOME Condition: Good Discharge Details Clinical Impression: Post-op pain Primary Care Provider: Linda Gunn ED Provider: Arie Verduzco Home Meds and New Rx's Prescriptions: Continued ondansetron 4 mg tablet,disintegrating 4 mg PO Q8H PRN (Reason: nausea and vomiting) Qty: 30 RF: 0 promethazine 25 mg suppository 25 mg ID Q6H PRN (Reason: nausea and vomiting) Qty: 12 RF: 0 gabapentin 300 mg Capsule 800 mg PO TID RF: 0 methadone 10 MG/ML concentrate 105 mg PO DAILY RF: 0 dexmethylphenidate [Focalin XR] 35 mg capsule,ER biphasic 50-50 35 mg PO DAILY RF: 0 Discharge Instructions Additional Instructions: At this time your CAT scan shows no evidence of any rib, tear, or complications from the surgery. There is no evidence of an intestinal obstruction or other significant complication. You do have mild irritation of your intestines, potentially secondary to the surgery itself. I did speak with Dr. Chong who is on-call for Dr. Nam, and he recommends that you call their office promptly this morning and specifically asked to speak with Dr. Nam and tell the nurse that you were in the emergency department and want to discuss the scenario. In the meantime continue taking her pain medication as needed. Avoid any heavy lifting or aggressive behavior. Continue to rest. If you notice any worsening of your symptoms, or any new symptoms such as vomiting, diarrhea, fever, chills, shortness of breath, chest pain, numbness, weakness, or fainting , please return immediately to the emergency department for reevaluation. Please follow up with your primary care provider as soon as possible for reassessment and reevaluation. As always, it was a pleasure participating in your medical care today. Dr Lamas's Referrals: Linda Gunn [Primary Care Provider] - Medical Decision Making 30-year-old female with a past medical history of previous endocarditis, hepatitis C, bipolar disorder, cholecystectomy, and a recent umbilical hernia repair performed at [facility] 6 days ago, presents today for abdominal pain. Patient states that she has been in pain ever since surgery, however this morning when she woke up she coughed/sneeze then had notable worsening of her pain which she describes as a tearing and ripping sensation inside her abdomen. She denies any vomiting or diarrhea. She denies any numbness tingling weakness. She denies any fever or chills. No other complaints at this time. No other modifying factors. She does not recall the name of the surgeon [facility] who performed the procedure 6 days ago. Exam demonstrates well-healing postop sites on the abdomen, no redness erythema or drainage. However she does have generalized tenderness throughout the abdomen, with no focality. Vital signs are notably reassuring, however based on the patient's symptomatology recent surgery and postop concerns we will get a CT scan for further assessment, gently rehydrate, manage her pain, monitor closely and reassess. Of note the patient states that she is receiving Dilaudid at home for postop pain. 5:55 AM Review of records from [place] indicate that the laparoscopic umbilical hernia repair was performed by Dr. Nam. There appears to have been no complications with the procedure. She was discharged without complication. [address] results have returned, no evidence of acute surgical etiology. There are some mild post surgical changes, nonspecific bowel gas pattern which may be secondary to mild enteritis, no other significant abnormalities. No signs of significant infection. This time the patient remains notably stable, heart rate remains below 70, blood pressure normal, she is afebrile. Pain notably improved. She has tolerated p.o. here without any complication. I did contact Dr. Tip Chong, who is currently on-call at [facility], discussed the case with him. He has no additional recommendations and does not see any need for additional medical management but does recommend that she can also contact Dr. Nam this morning at [phone] and follow-up closely in the clinic. Repeat abdominal exam continues to show no signs of an acute surgical abdomen. I have extensively reviewed the treatment plan and discharge instructions with the patient. I have addressed all patient concerns at this time. The patient was made aware of what symptoms to monitor for that would warrant a return to the emergency department. Discussed the plan with the patient, they demonstrate verbal understanding and agreement with our assessment and plan at this time. FINDINGS: Liver: Normal. No mass. Gallbladder and bile ducts: Prior cholecystectomy. No ductal dilation. Pancreas: Normal. No ductal dilation. Spleen: Lobulated with multiple areas of scarring No splenomegaly. Adrenal glands: Normal. No mass. Kidneys and ureters: Normal. No hydronephrosis. Stomach and bowel: No obstruction. Question mild mucosal thickening. Appendix: No evidence of appendicitis. Intraperitoneal space: Unremarkable. No free air. No significant fluid collection. Vasculature: Unremarkable. No abdominal aortic aneurysm. Lymph nodes: No enlarged lymph nodes. Urinary bladder: Decompressed Reproductive: Right ovarian cyst measuring 2 cm Bones/joints: Unremarkable. No acute fracture. Soft tissues: Small fat containing periumbilical hernia with minimal internal soft tissue density. Mild increased density in the left abdominal wall, presumed postsurgical. No collection IMPRESSION: Presumed postsurgical changes within the umbilical hernia. Nonspecific nonobstructed bowel gas pattern. Correlate for mild enteritis Right ovarian cyst measuring 2 cm Thank you for allowing us to participate in the care of your patient. Dictated and Authenticated by: Chito Maldonado MD 08/28/2020 6:22 AM Eastern Time ([place] & [place] HPI General Date/Time Provider Initiated Documentation: 08/28/20 05:14. HPI Narrative: 30-year-old female with a past medical history of previous endocarditis, hepatitis C, bipolar disorder, cholecystectomy, and a recent umbilical hernia repair performed at [facility] 6 days ago, presents today for abdominal pain. Patient states that she has been in pain ever since surgery, however this morning when she woke up she coughed/sneeze then had notable worsening of her pain which she describes as a tearing and ripping sensation inside her abdomen. She denies any vomiting or diarrhea. She denies any numbness tingling weakness. She denies any fever or chills. No other complaints at this time. No other modifying factors. She does not recall the name of the surgeon [facility] who performed the procedure 6 days ago. Related Data Home Medications Medication Instructions Recorded Confirmed gabapentin 800 mg PO TID 01/05/19 07/05/20 methadone 105 mg PO DAILY 01/05/19 07/05/20 ondansetron 4 mg PO Q8H PRN #30 tab 01/21/20 07/05/20 promethazine 25 mg ID Q6H PRN #12 each 01/21/20 07/05/20 dexmethylphenidate [Focalin XR] 35 mg PO DAILY 04/10/20 07/05/20 Previous Rx's Medication Instructions Recorded ondansetron 4 mg PO Q8H PRN #30 tab 01/21/20 promethazine 25 mg ID Q6H PRN #12 each 01/21/20 Allergies Allergy/AdvReac Type Severity Reaction Status Date / Time No Known Allergies Allergy Unverified 07/05/20 09:54 General Stated Complaint: Abd Prob PATRICIA: 3 Review of Systems All systems reviewed & are unremarkable except as noted in HPI and below PFSH Medical History (Updated 08/28/20 @ 07:04 by Arie Verduzco DO) Anxiety Bipolar disorder Endocarditis GERD (gastroesophageal reflux disease) Hepatitis C Obesity Surgical History History of heart valve replacement Social History Smoking/Tobacco Use Status: Current every day Tobacco Type: cigarettes Smoking risk assessment performed?: Yes Alcohol Intake: never Drug use: Daily 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 3.ENT: Atraumatic external nose and ears. Moist MM. Neck: Symmetric, trachea midline, No thyromegaly. 4.CVS: +S1/S2, No murmurs or gallops. Peripheral pulses 2+ and equal in all extremities. Brisk capillary refill in all extremities. 5.RESP: Unlabored respiratory effort. Clear to auscultation bilaterally. No wheezes rales or rhonchi 6.GI: Soft, nondistended, voluntary guarding. Postop sites are clean dry and intact with no signs of bleeding at this time. Generalized diffuse tenderness throughout. No focal tenderness. 7.MSK: Normocephalic/Atraumatic, Extremities w/o deformity or ttp No cyanosis or clubbing, Normal movement of all extremities 8.Skin: Warm, Dry. No rashes or lesions. 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 Sensation grossly intact, no focal neurologic deficits. 10.Psych: (AAO) x3. Appropriate mood and affect Course Vital Signs Vital signs: Vital Signs Temperature 36.8 C 08/28/20 05:16 Pulse 67 12/23/20 05:16 Respiratory Rate 22 08/28/20 05:16 Blood Pressure 123/86 08/28/20 05:16 Pulse Oximetry 98 08/28/20 05:16 Temperature 36.8 C 08/28/20 05:16 Temperature Source Temporal Artery Scan 08/28/20 05:16 Pulse 67 08/28/20 05:16 Respiratory Rate 22 08/28/20 05:16 Respiratory Effort 08/28/20 05:19 Blood Pressure 123/86 08/28/20 05:16 Pulse Oximetry 98 08/28/20 05:16 Oxygen Delivery Method Room Air 08/28/20 05:16 Oxygen Flow Rate 0 08/28/20 05:16 Pain Level 10 08/28/20 05:16
[2020-08-28] MEDS: Ondansetron 4 MG/2 ML VIAL IVP (05:50)
[2020-08-28] MEDS: Normal Saline 1,000 ML 1000 ML IV (05:50)
[2020-08-28] MEDS: HYDROmorphone 2 MG/ML VIAL 1 MG IVP ×2 (05:51→06:14)
[2020-08-28 05:54] LABS: Abs Immature Grans 0.05 10^3/uL (0.0-0.06); Absolute Eosinophil Count 0.19 10^3/uL (0.0-0.7); Absolute Lymphocyte Count 2.54 10^3/uL (1.2-3.4); Absolute Neutrophil Count 12.47 10^3/uL (1.2-6.7); Basophils % 0.3; Eosinophils % 1.2; HCT 45.7 % (36.0-46.0); Immature Grans % 0.3; Lactate 1.7 mmol/L (0.6-1.4); MCH 28.5 pg (27.0-33.0); MCHC 32.8 % (32.0-36.0); MCV 86.7 fL (80-95); Monocytes % 3.8; Neutrophils % 78.4; Nucleated RBC 0 %; Platelet Count 415 10^3/uL (130-400); RBC 5.27 10^6/uL (3.93-5.22); RDW 14.6 % (11.7-14.6); RDW-SD 46.4 fL
[2020-08-28 05:55] LABS: Absolute Basophil Count 0.05 10^3/uL (0.0-0.2)
[2020-08-28] MEDS: Omnipaque 350 MG/ML 100 ML BTL IJ (06:10)
[2020-08-28] MEDS: Normal Saline - Diluent 50 ML VIAL IV (06:11)
[2020-08-28 06:12] LABS: ALT 26 U/L (14-59); AST 20 U/L (15-37); Alkaline Phosphatase 94 U/L (46-116); BUN 13 mg/dL (7-18); Bilirubin, Total 0.7 mg/dL (0.2-1.0); CREATININE 1.11 mg/dL (0.55-1.02); Calcium 9.4 mg/dL (8.5-10.1); Chloride 97 mmol/L (98-107); Estimated GFR 57.33 (mL/min/1.73m2); Glucose 142 mg/dL (74-106); Potassium 3.5 mmol/L (3.5-5.1); Sodium 135 mmol/L (136-145); Total Protein 8.9 g/dL (6.4-8.2)
[2020-08-28] MEDS: Normal Saline Flush 10 ML SYR IVP (06:12)
--- NOTE | 2020-08-28 06:22 | DI.VRAD_ITS ---
PROCEDURE INFORMATION: Exam: CT Abdomen And Pelvis With Contrast Exam date and time: 08/28/2020 5:20 AM Age: 30 years old Clinical indication: Abdominal pain; Localized; Left lower quadrant (llq); Prior surgery; Surgery date: 3-7 days post-operative; Surgery type: Hernia repair; Patient HX: 1 week umb hernia rep post op, pain everywhere TECHNIQUE: Imaging protocol: Computed tomography of the abdomen and pelvis with intravenous contrast. Radiation optimization: All CT scans at this facility use at least one of these dose optimization techniques: automated exposure control; mA and/or kV adjustment per patient size (includes targeted exams where dose is matched to clinical indication); or iterative reconstruction. Contrast material: OMNIPAQUE 350; Contrast volume: 100 ml; Contrast route: INTRAVENOUS (IV); COMPARISON: CT ABDOMEN PELVIS W 04/03/2020 7:13 PM FINDINGS: Liver: Normal. No mass. Gallbladder and bile ducts: Prior cholecystectomy. No ductal dilation. Pancreas: Normal. No ductal dilation. Spleen: Lobulated with multiple areas of scarring No splenomegaly. Adrenal glands: Normal. No mass. Kidneys and ureters: Normal. No hydronephrosis. Stomach and bowel: No obstruction. Question mild mucosal thickening. Appendix: No evidence of appendicitis. Intraperitoneal space: Unremarkable. No free air. No significant fluid collection. Vasculature: Unremarkable. No abdominal aortic aneurysm. Lymph nodes: No enlarged lymph nodes. Urinary bladder: Decompressed Reproductive: Right ovarian cyst measuring 2 cm Bones/joints: Unremarkable. No acute fracture. Soft tissues: Small fat containing periumbilical hernia with minimal internal soft tissue density. Mild increased density in the left abdominal wall, presumed postsurgical. No collection IMPRESSION: Presumed postsurgical changes within the umbilical hernia. Nonspecific nonobstructed bowel gas pattern. Correlate for mild enteritis Right ovarian cyst measuring 2 cm Dictated and Authenticated by: Chito Maldonado MD. Ordering:GRICEL Sargent MD
[2020-08-28 07:06] VITALS: BP 118/76; PULSE 76; RESP 16; TEMP 36.6; O2SAT 95
== END 2020-08-28 07:29 | disposition home or self-care (01) ==
PROVIDERS: Emergency Provider Student in an Organized Health Care Education/Training Program; PCP Nurse Practitioner Family
DX: R10.33 Periumbilical pain (principal); G89.18 Other acute postprocedural pain
CPT/HCPCS: 36415; 80053; 96361; 96374; 96375; 99285; 74177; 83605; 85025; 99284; J2405; J3490

== ENCOUNTER 2020-09-10 15:47 | Emergency (ER) | payer MEDICAID, SELFPAY ==
[2020-09-10 15:50] VITALS: BP 151/100; PULSE 85; RESP 17; TEMP 36.4; O2SAT 98
--- NOTE | 2020-09-10 16:09 | ED.GENADUL_ITS ---
Discharge Plan Disposition Patient Disposition: HOME Condition: Good Discharge Details Clinical Impression: Left shoulder pain, Lung infiltrate on CT Primary Care Provider: Linda Gunn ED Provider: Merary Foreman Home Meds and New Rx's Prescriptions: New doxycycline hyclate 100 mg capsule 100 mg PO BID Qty: 14 RF: 0 Continued ondansetron 4 mg tablet,disintegrating 4 mg PO Q8H PRN (Reason: nausea and vomiting) Qty: 30 RF: 0 promethazine 25 mg suppository 25 mg SC Q6H PRN (Reason: nausea and vomiting) Qty: 12 RF: 0 gabapentin 300 mg Capsule 800 mg PO TID RF: 0 methadone 10 MG/ML concentrate 105 mg PO DAILY RF: 0 dexmethylphenidate [Focalin XR] 35 mg capsule,ER biphasic 50-50 35 mg PO DAILY RF: 0 Discharge Instructions Instructions: Pneumonia (ED), Shoulder Pain (ED) Additional Instructions: The pain that increased with movement and pressure on her left shoulder is most likely muscle pain. There was an infiltrate noted on the left lower lung on CT. This may be a pneumonia although usually not clinically look like pneumonia. In the event this is developing pneumonia, plan to treat with antibiotics as discussed. Please take the antibiotic as prescribed. Even if symptoms improve, please take the entire course. Please stop smoking. Increase water intake. You may continue with topical patches of lidocaine to help with pain. You may also use Tylenol and/or ibuprofen. Please follow-up with your primary care in 1 week for reevaluation. If you develop any new or worsening symptoms please seek care urgently once again. Referrals: Linda Gunn [Primary Care Provider] - Medical Decision Making Patient is a 30-year-old female, well-known to myself in the department, with chief complaint of left shoulder pain. She reports this came on insidiously yesterday. States the pain has been severe and persistent since then. Reports the pain is worse with deep inspiration and movement. She denies any substernal chest pain but states that this pain can radiate laterally down the chest wall. She denies any known trauma. No pain in the left arm. Denies any pain in her neck. Has not had pain like this historically. She denies any fevers or chills. No cough. She has no history of DVT. She is not on any estrogen containing medications. She is an active smoker. Is obese. On exam, patient is argumentative and swearing at staff. Despite asking her mu ltiple times to stop swearing and be more polite with staff she continues to refuse and is verbally aggressive. She repetitively states that she is short of breath and cannot breathe. However, the patient is yelling with good oxygen saturation. She has air movement all lung yen. I do not appreciate any evidence to suggest respiratory distress. When patient is answering questions she is able to do so in the sentences without any evidence of respiratory compromise. She has normal cardiac exam. She is focally tender over the trapezius with palpation. Lidoderm patch will be applied. Do not see any evidence to suggest trauma. She is full range of motion of the left shoulder. He plan for laboratory evaluation as well. She is having pain with inspiration which suggest a pleuritic component, and the patient is fairly sedentary and an active smoker, I feel that evaluation for potential PE is appropriate. We will screen with a D-dimer. As she reports the pain can radiate into her chest, will also obtain EKG and troponin although I find ACS less likely based on the patient's history. Labs reviewed. No leukocytosis. Stable H&H. Patient's D-dimer is elevated. Plan CTA to evaluate for potential PE. CMP without significant abnormality. Troponin is within normal limits. Patient received Tylenol and a Lidoderm patch. She reports that this is helping with her discomfort. FINDINGS: There are patchy opacities at the left base. No pleural effusion or pneumothorax. No evidence of pulmonary embolism. Normal thoracic aorta. Status post median sternotomy and cholecystectomy. No acute fracture. IMPRESSION: Left lower lobe infiltrate. FINDINGS: Normal alignment. No acute fracture or dislocation. IMPRESSION: No acute findings. Discussed these findings with the patient. Patient states that she did have pneumonia recently. She does not clinically sound like pneumonia. However, this is on the anterolateral side of her pain. This may account for her discomfort although it does seem less likely as she does have pain elicited with palpation of the trapezius. We discussed potential diagnosis of pneumonia and or musculoskeletal pain. Patient would like to move forward with treatment. The patient is an active smoker and has had comorbidities historically, I do feel that treatment would be appropriate as I would be concerned she may worsen if left untreated. Plan to begin patient on doxycycline. Return precautions were given. Advise follow-up with primary care within the next week. All her questions and concerns were addressed and she is agreement with plan HPI General Mode of arrival: ambulatory . Date/Time Provider Initiated Documentation: 09/10/20 16:09 . Limitations to Documentation: no limitations . Information obtained by: patient, RN notes reviewed and old records reviewed . History of Present Illness 30 year old F presents to the emergency department with the chief complaint of Left shoulder pain, described as severe, with intensity rated at 8. Quality is described as stabbing and sharp, and is localized to the left and upper extremity. Patient reports radiation to (In the chest). Patient started experiencing this day(s) (1) and it has been constant. Immobilization improves symptom(s), Movement worsens symptoms . Patient notes chest pain and shortness of breath; denies cough, diaphoresis, fever/chills, loss of appetite, malaise, nausea/vomiting, rash and weakness. P atient did receive the following treatments prior to arrival, none Related Data Home Medications Medication Instructions Recorded Confirmed gabapentin 800 mg PO TID 01/05/19 09/10/20 methadone 105 mg PO DAILY 01/05/19 09/10/20 ondansetron 4 mg PO Q8H PRN #30 tab 01/21/20 09/10/20 promethazine 25 mg SC Q6H PRN #12 each 01/21/20 09/10/20 dexmethylphenidate [Focalin XR] 35 mg PO DAILY 04/10/20 09/10/20 doxycycline hyclate 100 mg PO BID #14 cap 09/10/20 Previous Rx's Medication Instructions Recorded ondansetron 4 mg PO Q8H PRN #30 tab 01/21/20 promethazine 25 mg SC Q6H PRN #12 each 01/21/20 doxycycline hyclate 100 mg PO BID #14 cap 09/10/20 Allergies Allergy/AdvReac Type Severity Reaction Status Date / Time No Known Allergies Allergy Unverified 07/05/20 09:54 General Stated Complaint: GenMedical PATRICIA: 3 Review of Systems Constitutional Constitutional: Reports as per HPI, Denies chills, Denies fever(s), Denies headache(s), Denies lethargy and Denies poor appetite Eyes Eyes: Denies change in vision ENT Ears, Nose, Mouth, and Throat: Denies dizziness and Denies headache(s) Cardiovascular Cardiovascular: Reports as per HPI, Reports chest pain at rest (Pain radiates down from the superior aspect of the left shoulder to the mid), Denies diaphores is, Denies syncope, Denies radiating jaw, neck or arm pain, Denies palpitations, Reports dyspnea (Reports that when pain increases she feels short of breath) and Denies dyspnea on exertion Respiratory Respiratory: Reports as per HPI, Denies chest congestion, Denies cough, Denies hemoptysis, Reports pain on inspiration, Denies pain with cough, Reports dyspnea (Reports that when pain increases she feels short of breath), Denies dyspnea on exertion and Denies wheezing Gastrointestinal Gastrointestinal: Reports as per HPI, Denies abdominal pain, Denies diarrhea, Denies nausea and Denies vomiting Musculoskeletal Musculoskeletal: Reports as per HPI and Denies back pain Integumentary/Breasts Skin/Breast: Reports as per HPI and Denies rash Neurologic Neurologic: Reports as per HPI, Denies dizziness, Denies syncope and Denies headache(s) Endocrine Endocrine: Denies palpitations Allergic/Immunologic Allergic/Immunologic: Denies wheezing [facility] Medical History (Updated 09/10/20 @ 19:07 by FISH Fortune) Anxiety Bipolar disorder Endocarditis GERD (gastroesophageal reflux disease) Hepatitis C Obesity Surgical History History of heart valve replacement Social History Smoking/Tobacco Use Status: Current every day Tobacco Type: cigarettes Smoking risk assessment performed?: Yes Alcohol Intake: never Drug use: Occasionally Substance use type: 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 Do you feel safe at home: Yes Do you feel safe in your relationship?: Yes Exam Const General: uncooperative (Yelling and swearing at staff), healthy appearing, no acute distress, well developed and anxious Nutritional Appearance: well nourished Orientation: alert, awake and oriented x3 HENMT Head: normal to inspection Neck Neck: normal visual inspection, full ROM, no meningeal signs and trachea midline Chest Chest: normal inspection of the chest, normal palpation of entire chest wall and no crepitus Resp Effort & Inspection: normal respiratory effort, able to speak in complete sentences and no respiratory distress Auscultation: clear to auscultation bilaterally, no rales, no rhonchi and no wheezes Cardio Rate: regular rate Rhythm: regular rhythm Heart Sounds: S1 normal and S2 normal GI Inspection: normal to inspection, no edema and non-distended Palpation: soft, no hepatosplenomegaly, not firm, no guarding, not rigid and nontender Auscultation: normal bowel sounds Back/Spine/Pelvis Back: no CVA tenderness Thoracic/Lumbar Spine: thoracic and lumbar spine normal to inspection Skin General skin exam: no rashes or lesions noted Trauma: no lacerations or abrasions Neuro General: patient alert, patient awake and patient oriented x3 Cognition: normal cognition Speech: speech normal Gait: normal gait Extrem General: normal to inspection, capillary refill normal, no pedal edema, no calf tenderness and normal gait Shoulder/upper arm images: 1. Area of maximal tenderness. Pain is elicited palpation of this area. No erythema, warmth, induration. She has full range of motion of the left shoulder. No pain with compression of her ribs. Lungs are clear. I do not see any evidence to suggest trauma. No focal tenderness over the shoulder. 5 out of 5 reagent tender helper strength no neurological deficit. 2+ distal pulses. Psych Appearance: grossly normal and well kempt Mental Status: mental status grossly normal Speech and Movement: speech and movement normal Course Vital Signs Vital signs: Vital Signs Temperature 36.4 C L 09/10/20 15:50 Pulse 85 09/10/20 15:50 Respiratory Rate 17 09/10/20 15:50 Blood Pressure 151/100 H 09/10/20 15:50 Pulse Oximetry 98 09/10/20 15:50 Temperature 36.4 C L 09/10/20 15:50 Temperature Source Temporal Artery Scan 09/10/20 15:50 Pulse 85 09/10/20 15:50 Respiratory Rate 17 09/10/20 15:50 Respiratory Effort 09/10/20 15:53 Blood Pressure 151/100 H 09/10/20 15:50 Blood Pressure Position Sitting 09/10/20 15:50 Pulse Oximetry 98 09/10/20 15:50 Oxygen Delivery Method Room Air 09/10/20 15:50 Oxygen Flow Rate 0 09/10/20 15:50 Pain Level 8 09/10/20 15:50
[2020-09-10 16:14] VITALS: RESP 18
--- NOTE | 2020-09-10 16:15 | DI.RAD_ITS ---
EXAM: XR SHOULDER LT COMPLETE 2+V CLINICAL HISTORY: left shoulder pain. TECHNIQUE: 2D digital imaging was performed. COMPARISON: No exams were available for comparison FINDINGS: BONES: No acute fracture is present. No bony destructive lesion is seen. JOINTS: No dislocation present. SOFT TISSUE: Normal. Findings of a prior sternotomy are noted. IMPRESSION: Unremarkable radiographs of the left shoulder. DATA REPOSITORY: RADIATION DOSE DELIVERED:
--- NOTE | 2020-09-10 16:15 | RT.EKG_ITS ---
APPROVED REPORT Exam: Resting ECG Patient Location: E HR:71 bpm ECG Measurements Heart Rate 71 AXIS VT 281 P 38 QRSd 105 QRS 68 QT 417 T 44 QTc 455 Conclusion Sinus rhythm...normal P axis, V-rate 60- 99 Prolonged VT interval...VT >210, V-rate 50- 90 I have reviewed and interpreted ECG and agree with software generated interpretation.
[2020-09-10 16:36] LABS: Abs Immature Grans 0.04 10^3/uL (0.0-0.06); Absolute Basophil Count 0.03 10^3/uL (0.0-0.2); Absolute Eosinophil Count 0.23 10^3/uL (0.0-0.7); Absolute Lymphocyte Count 1.96 10^3/uL (1.2-3.4); Absolute Monocyte Count 0.47 10^3/uL (0.1-0.8); Absolute Neutrophil Count 8.04 10^3/uL (1.2-6.7); Basophils % 0.3; Eosinophils % 2.1; HCT 38.9 % (36.0-46.0); HGB 12.6 g/dL (11.2-15.7); Immature Grans % 0.4; Lymphocytes % 18.2; MCH 28.4 pg (27.0-33.0); MCHC 32.4 % (32.0-36.0); MCV 87.8 fL (80-95); MPV 10.1 fL (8.0-11.0); Monocytes % 4.4; Neutrophils % 74.6; Nucleated RBC 0 %; Platelet Count 412 10^3/uL (130-400); RBC 4.43 10^6/uL (3.93-5.22); RDW 14.1 % (11.7-14.6); RDW-SD 45.1 fL; WBC 10.77 10^3/uL (4.4-10.8)
[2020-09-10 16:53] LABS: ALT 18 U/L (14-59); AST 12 U/L (15-37); Albumin 3.5 g/dL (3.4-5.0); Alkaline Phosphatase 97 U/L (46-116); Anion Gap 8.2 mmol/L (3-11); BUN 7 mg/dL (7-18); Bilirubin, Total 0.3 mg/dL (0.2-1.0); CO2 27.8 mmol/L (21.0-32.0); CREATININE 0.86 mg/dL (0.55-1.02); Chloride 103 mmol/L (98-107); Glucose 93 mg/dL (74-106); Magnesium 1.9 mg/dL (1.8-2.4); Potassium 3.8 mmol/L (3.5-5.1); Sodium 139 mmol/L (136-145); Troponin I < 0.05 ng/mL (<0.06)
[2020-09-10 17:07] LABS: D-Dimer 1883 ng/mlFEU (<500)
--- NOTE | 2020-09-10 17:15 | DI.CT_ITS ---
EXAM: CT CHEST PE CTA CLINICAL HISTORY: SOB, left sided CP, pleuritic pain. TECHNIQUE: Imaging Protocol: CT angiography of the chest was performed using pulmonary embolus jun col. Multi planar reconstructions were performed. CONTRAST MATERIAL: Intravenous: Omnipaque 350 Contrast volume: 100 cc COMPARISON: CT CT ABDOMEN PELVIS W from 08/28/2020 FINDINGS: CHEST: PULMONARY ARTERIES: There are no intraluminal filling defects to suggest acute pulmonary emboli. LUNGS: There is patchy infiltrate in the left lower lobe basal segments,, mostly pleural based and no t associated with a pleural effusion. This also involves the lingular segment. Opposite-right lung is clear. No pleural effusion on either side. No focal findings in the trachea and mainstem bronchi . MEDIASTINUM: There is no hilar nor mediastinal adenopathy. Visualized thyroid unremarkable. CARDIAC: There are sternotomy wires. Heart size is normal.Caliber of the thoracic aorta is within no rmal limits. There is no evidence of shift of the interventricular septum. PARTIALLY VISUALIZED UPPERMOST ABDOMEN: No obvious findings OSSEOUS: No significant osseous lesions.. IMPRESSION: 1. No evidence of acute pulmonary emboli. No evidence of pulmonary infarction.No pleural effusions. 2. Left lower lobe infiltrate. No intrathoracic adenopathy. 3. Sternotomy wires noted. Heart size normal. No pericardial effusion. RADIATION DOSE DELIVERED: LINK-TO-SR [facility] DATA REPOSITORY: All CT scans at this facility are submitted to the National Radiology Data Registry (NRDR) Dose Index Registry (DIR) with the [employer] ([employer]). RADIATION OPTIMIZATION: All CT scans at this facility use at least one of these dose optimization te chniques: automated exposure control; mA and/or kV adjustment per patient size (includes targeted exa ms where dose is matched to clinical indication); or iterative reconstruction.
[2020-09-10] MEDS: Omnipaque 350 MG/ML 100 ML BTL IJ (18:40)
[2020-09-10] MEDS: Normal Saline - Diluent 50 ML VIAL IV (18:40)
[2020-09-10 18:54] VITALS: BP 124/69; PULSE 68; RESP 17; TEMP 37; O2SAT 99
--- NOTE | 2020-09-10 18:58 | DI.VRAD_ITS ---
PROCEDURE INFORMATION: Exam: CT Angiography Chest With Contrast Exam date and time: 09/10/2020 6:29 PM Age: 30 years old Clinical indication: Chest pain; Pleurodynia; Prior surgery; Surgery type: Heart surgery, HX endocarditis TECHNIQUE: Imaging protocol: Computed tomographic angiography of the chest with intravenous contrast. 3D rendering (Not supervised by radiologist): MIP and/or 3D reconstructed images were created by the technologist. COMPARISON: CR XR CHEST 2V PA LATERAL 04/03/2020 7:56 PM FINDINGS: There are patchy opacities at the left base. No pleural effusion or pneumothorax. No evidence of pulmonary embolism. Normal thoracic aorta. Status post median sternotomy and cholecystectomy. No acute fracture. IMPRESSION: Left lower lobe infiltrate. Dictated and Authenticated by: Hayder Canchola MD. Ordering:BENTLEY Reagan MD
--- NOTE | 2020-09-10 18:58 | DI.VRAD_ITS ---
PROCEDURE INFORMATION: Exam: XR Left Shoulder Exam date and time: 09/10/2020 6:41 PM Age: 30 years old Clinical indication: Pain; Shoulder; Left TECHNIQUE: Imaging protocol: XR Left shoulder. Views: 2 or more views. COMPARISON: No relevant prior studies available. FINDINGS: Normal alignment. No acute fracture or dislocation. IMPRESSION: No acute findings. Dictated and Authenticated by: Haydre Canchola MD. Ordering:BENTLEY Reagan MD
== END 2020-09-10 19:13 | disposition home or self-care (01) ==
PROVIDERS: Emergency Provider Physician Assistant; PCP Nurse Practitioner Family
DX: M25.512 Pain in left shoulder (principal); R91.8 Other nonspecific abnormal finding of lung field; R79.1 Abnormal coagulation profile; F17.210 Nicotine dependence, cigarettes, uncomplicated
CPT/HCPCS: 36415; 71275; 80053; 93005; 99285; 73030; 83735; 84484; 85025; 85379; 93010; J3490

== ENCOUNTER 2020-09-17 06:45 | Emergency (ER) | payer MEDICAID, SELFPAY ==
[2020-09-17 06:45] VITALS: BP 119/73; PULSE 66; RESP 18; TEMP 36.7; O2SAT 96
--- NOTE | 2020-09-17 06:53 | ED.GENADUL_ITS ---
Discharge Plan Disposition Patient Disposition: HOME Condition: Good Discharge Details Clinical Impression: Vertigo Primary Care Provider: Linda Gunn ED Provider: Arie Verduzco Home Meds and New Rx's Prescriptions: New meclizine 25 mg tablet,chewable 25 mg PO BID Qty: 20 RF: 0 Continued promethazine 25 mg suppository 25 mg VA Q6H PRN (Reason: nausea and vomiting) Qty: 12 RF: 0 gabapentin 300 mg Capsule 800 mg PO TID RF: 0 methadone 10 MG/ML concentrate 105 mg PO DAILY RF: 0 dexmethylphenidate [Focalin XR] 35 mg capsule,ER biphasic 50-50 35 mg PO DAILY RF: 0 doxycycline hyclate 100 mg capsule 100 mg PO BID Qty: 14 RF: 0 Discharge Instructions Instructions: Vertigo (ED) Additional Instructions: At this time your checks x-ray shows no signs of pneumonia. Please finish your final dose of the doxycycline. Your symptoms of dizziness are secondary to something called peripheral vertigo. Please stay well-hydrated, drink plenty of fluids, take the meclizine to help with this. Your symptoms will likely improve over the next week with the meclizine. Please stop smoking. If you notice any worsening of your symptoms, or any new symptoms such as vomiting, diarrhea, fever, chills, shortness of breath, chest pain, numbness, weakness, or fainting , please return immediately to the emergency department for reevaluation. Please follow up with your primary care provider as soon as possible for reassessment and reevaluation. As always, it was a pleasure participating in your medical care today. Referrals: Linda Gunn [Primary Care Provider] - Medical Decision Making This is a 30-year-old female with a past medical history of endocarditis, hepatitis C, bipolar disorder, cholecystectomy, and a recent umbilical hernia repair performed at [facility] over 2 weeks ago, who presents today for chief complaint of dizziness and mild persistent left- sided chest pain with shortness of breath. Regards to the dizziness that started this morning, and this prompted her to come in. She describes it as a room spinning sensation when she turns her head to the left. She denies any tinnitus, trauma, vomiting or diarrhea. In addition to this she does admit to some mild shortness of breath and left-sided chest pain which has been present for the last week and a half. She was here in 6 days ago, at which time she had a negative cardiac work-up, as well as a negative CTA showing no signs of pulmonary embolism but there was evidence of mild left lower lobe infiltrate. The pain has been persistent and unchanged since then. No changes otherwise. She denies a history of PE. She continues to smoke. No other complaints at this time. Physical exam is unremarkable, no evidence of neurologic deficit. She does have unidirectional leftward horizontal nystagmus, positive head impulse test. Symptoms appear consistent with peripheral vertigo. Will give meclizine. The patient pulmonary exam is unremarkable, vital signs are very reassuring with no evidence of hypoxemia or tachycardia. As she states that her symptoms have been unchanged since her last visit, I do not see an indication for repeat CT angiogram. I do feel a chest x-ray would be beneficial though to evaluate for change in pneumonia. Patient states that she has been taking the antibiotic doxycycline as prescribed. 7:47 AM Repeat x-ray is returned negative, no evidence of pulmonary infiltrate. Repeat vital signs remain normal no hypoxemia tachycardia or signs of distress. Patient shows no clinical evidence of concerning lung pathology especially in light of recent notable work-ups. She is feeling much better in regards to her previous lung symptoms now on reassessment. The patient has near complete resolution of her dizziness after meclizine administration. Repeat neurologic assessment demonstrates no focal neurologic deficits, she ambulates well, no signs of ataxia whatsoever, no indication for intracranial imaging at this time at all. With the resolution of her symptoms, negative chest x-ray, and reassuring vital signs and physical exam the patient can be discharged home. Will give meclizine for home use, recommend continued rehydration at home. Discussed red flags which return. I have extensively reviewed the treatment plan and discharge instructions with the patient. I have addressed all patient concerns at this time. The patient was made aware of what symptoms to monitor for that would warrant a return to the emergency department. Discussed the plan with the patient, they demonstrate verbal understanding and agreement with our assessment and plan at this time. FINDINGS: Lungs: Unremarkable. No consolidation. Pleural space: Unremarkable. No pleural effusion. No pneumothorax. Heart/Mediastinum: Unremarkable. No cardiomegaly. Bones/joints: Unremarkable. IMPRESSION: No acute findings. Thank you for allowing us to participate in the care of your patient. Dictated and Authenticated by: Clem Bueno MD 09/17/2020 7:34 AM Eastern Time ([place] & [place]) HPI General Date/Time Provider Initiated Documentation: 09/17/20 07:05 . HPI Narrative: This is a 30-year-old female with a past medical history of endocard itis, hepatitis C, bipolar disorder, cholecystectomy, and a recent umbilical hernia repair performed at [facility] over 2 weeks ago, who presents today for chief complaint of dizziness and mild persistent left-sided chest pain with shortness of breath. Regards to the dizziness that started this morning, and this prompted her to come in. She describes it as a room spinning sensation when she turns her head to the left. She denies any tinnitus, trauma, vomiting or diarrhea. In addition to this she does admit to some mild shortness of breath and left-sided chest pain which has been present for the last week and a half. She was here in 6 days ago, at which time she had a negative cardiac work-up, as well as a negative CTA showing no signs of pulmonary embolism but there was evidence of mild left lower lobe infiltrate. The pain has been persistent and unchanged since then. No changes otherwise. She denies a history of PE. She continues to smoke. No other complaints at this time. Related Data Home Medications Medication Instructions Recorded Confirmed gabapentin 800 mg PO TID 01/05/19 09/17/20 methadone 105 mg PO DAILY 01/05/19 09/17/20 promethazine 25 mg VA Q6H PRN #12 each 01/21/20 09/17/20 dexmethylphenidate [Focalin XR] 35 mg PO DAILY 04/10/20 09/17/20 doxycycline hyclate 100 mg PO BID #14 cap 09/10/20 09/17/20 meclizine 25 mg PO BID #20 tab 09/17/20 Previous Rx's Medication Instructions Recorded promethazine 25 mg VA Q6H PRN #12 each 01/21/20 doxycycline hyclate 100 mg PO BID #14 cap 09/10/20 meclizine 25 mg PO BID #20 tab 09/17/20 Allergies Allergy/AdvReac Type Severity Reaction Status Date / Time No Known Allergies Allergy Unverified 09/17/20 06:51 General Stated Complaint: Abd Prob PATRICIA: 3 Review of Systems All systems reviewed & are unremarkable except as noted in HPI and below [facility] Medical History (Updated 09/17/20 @ 07:19 by Arie Verduzco DO) Anxiety Bipolar disorder Endocarditis GERD (gastroesophageal reflux disease) Hepatitis C Obesity Surgical History History of heart valve replacement Social History Smoking/Tobacco Use Status: Current every day Tobacco Type: cigarettes Smoking risk assessment performed?: Yes Alcohol Intake: never Drug use: Occasionally 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 3.ENT: Atraumatic external nose and ears. Dry MM. Neck: Symmetric, trachea midline, No thyromegaly. 4.CVS: +S1/S2, No murmurs or gallops. Peripheral pulses 2+ and equal in all extremities. Brisk capillary refill in all extremities. 5.RESP: Unlabored respiratory effort. Clear to auscultation bilaterally. No wheezes rales or rhonchi no reproducible chest wall tenderness 6.GI: Soft, Nontender/Nondistended, No hepatosplenomegaly. No guarding or rebound. No signs of an acute surgical abdomen 7.MSK: Normocephalic/Atraumatic, Extremities w/o deformity or ttp No cyanosis or clubbing, Normal movement of all extremities, no calf tenderness. 8.Skin: Warm, Dry. No rashes or lesions. 9.Neuro: compliance tester II-XII grossly intact. Sensation grossly intact, no focal neurologic deficits. All 6 cardinal planes of vision are fully intact. No evidence of rotatory or vertical nystagmus. The patient demonstrated a normal [id number], good dexterity. There was no evidence of dysdiadochokinesia. Patient was able to ambulate without difficulty. There was no wide-based gait. Romberg testing was normal. Cluz-nz-nicv testing was normal. Sensation was intact bilaterally as well as muscle strength bilaterally for all extremities. Patient was able to verbalize butter cup with no slurring, or miss pronunciation. Cerebellar function testing is normal. The patient demonstrates a normal hints exam with no findings concerning for a central event. No vertical nystagmus. She does have bilateral unidirectional left directional horizontal nystagmus. the head impulse test is negative for any significant central abnormality but does worsen her symptoms when rapidly moved to the left. Normal test of skew. No suggestion of a central cerebellar event. 10.Psych: (AAO) x3. Appropriate mood and affect Course Vital Signs Vital signs: Vital Signs Temperature 36.7 C 09/17/20 06:45 Pulse 66 09/17/20 06:45 Respiratory Rate 18 09/17/20 06:45 Blood Pressure 119/73 09/17/20 06:45 Pulse Oximetry 96 09/17/20 06:45 Temperature 36.7 C 09/17/20 06:45 Pulse 66 09/17/20 06:45 Respiratory Rate 18 09/17/20 06:45 Blood Pressure 119/73 09/17/20 06:45 Blood Pressure Position Sitting 09/17/20 06:45 Pulse Oximetry 96 09/17/20 06:45 Pain Level 6 09/17/20 06:45
[2020-09-17] MEDS: Meclizine 25 MG TAB PO (06:57)
--- NOTE | 2020-09-17 07:20 | DI.RAD_ITS ---
EXAM: XR CHEST 2V PA LATERAL CLINICAL HISTORY: cough, left chest pain TECHNIQUE: 2D digital imaging was performed. COMPARISON: CR,XR XR CHEST 2V PA LATERAL from 04/03/2020 FINDINGS: Sternal wires are again noted. A valve prosthesis is seen. Heart size is normal. The lungs are well i nflated and clear. IMPRESSION: No acute pulmonary findings. DATA REPOSITORY: RADIATION DOSE DELIVERED:
--- NOTE | 2020-09-17 07:34 | DI.VRAD_ITS ---
PROCEDURE INFORMATION: Exam: XR Chest, 2 Views Exam date and time: 09/17/2020 7:19 AM Age: 30 years old Clinical indication: Cough TECHNIQUE: Imaging protocol: XR of the chest Views: 2 views. COMPARISON: CT CHEST PE CTA 09/10/2020 6:30 PM FINDINGS: Lungs: Unremarkable. No consolidation. Pleural space: Unremarkable. No pleural effusion. No pneumothorax. Heart/Mediastinum: Unremarkable. No cardiomegaly. Bones/joints: Unremarkable. IMPRESSION: No acute findings. Dictated and Authenticated by: Clem Bueno MD. Ordering:GRICEL Sargent MD
[2020-09-17 07:45] VITALS: BP 128/78; PULSE 69; RESP 16; TEMP 36.7; O2SAT 98
--- NOTE | 2020-09-17 08:02 | NUR.NOTE ---
declined urine test-does not have to urinate, just had one done last week that was negative and assumes responsibility.Nursing Note:
== END 2020-09-17 09:05 | disposition home or self-care (01) ==
LOC: ER 07:38
PROVIDERS: Emergency Provider Student in an Organized Health Care Education/Training Program; PCP Nurse Practitioner Family
DX: H81.392 Other peripheral vertigo, left ear (principal); R07.9 Chest pain, unspecified; R06.02 Shortness of breath
CPT/HCPCS: 99283; 71046; 99284

== ENCOUNTER 2020-09-24 06:50 | Emergency (ER) | payer MEDICAID, SELFPAY ==
[2020-09-24 06:49] VITALS: BP 122/76; PULSE 72; RESP 16; TEMP 36.5; O2SAT 98
--- NOTE | 2020-09-24 07:00 | DI.CT_ITS ---
EXAM: CT ABDOMEN PELVIS W CLINICAL HISTORY: n/v, left sided abdominal pain TECHNIQUE: Imaging Protocol: Axial computed tomography images with coronal and sagittal reformatted images were created and reviewed CONTRAST MATERIAL: Intravenous: Omnipaque 350 Contrast volume:100 mL Oral: No COMPARISON: CT CT ABDOMEN PELVIS W from 08/28/[address] CHEST PE CTA from 09/10/2020 FINDINGS: ABDOMEN: Lung Bases: Normal where visualized. Liver: Normal density. No measurable mass. Portal, Superior Mesenteric, and Splenic Veins: Unremarkable. Gallbladder and Biliary Tract: Status post cholecystectomy. No biliary ductal dilatation. Pancreas: Normal density, no abnormal calcifications or inflammatory process. Spleen: Normal. Adrenals: Stable nodularity of the right adrenal gland. This likely reflects an adenoma. Kidneys: Normal size, contour and axis. No radiodense stones or obstructive uropathy. Stable left jenna al cyst. Note is made of a retroaortic left renal vein. Abdominal Aorta: Abdominal portion non-dilated. Bowel: No obstruction or bowel wall thickening. No evidence of appendicitis. Peritoneal Cavity: No ascites, collection or mesenteric inflammatory response. No free air. Lymph Nodes: Within normal limits. Bones: Unremarkable. Soft Tissues: Subcutaneous inflammation overlying the left abdominal wall. No focal fluid collection is seen to suggest an abscess. This area continues to improved compared to the prior examination an d may reflect recent surgery. PELVIS: Bladder: Incompletely distended. No gross abnormality. Reproductive Organs: Unremarkable as visualized. Lymph Nodes: Within normal limits. Bones: Within normal limits. IMPRESSION: No acute abdominal or pelvic process. Findings were discussed with the emergency department on the date of the examination. RADIATION DOSE DELIVERED: 1,480.64mGy.cm Total DLP DATA REPOSITORY: All CT scans at this facility are submitted to the National Radiology Data Registry (NRDR) Dose Index Registry (DIR) with the [employer] [place] [employer] (A[employer]). RADIATION OPTIMIZATION: All CT scans at this facility use at least one of these dose optimization te chniques: automated exposure control; mA and/or kV adjustment per patient size (includes targeted exa ms where dose is matched to clinical indication); or iterative reconstruction.
--- NOTE | 2020-09-24 07:04 | ED.GENADUL_ITS ---
Discharge Plan Disposition Patient Disposition: HOME Condition: Stable Discharge Details Clinical Impression: Abdominal pain, Nausea & vomiting Primary Care Provider: Linda Gunn ED Provider: Arely Lovett Home Meds and New Rx's Prescriptions: New ondansetron HCl [Zofran] 4 mg tablet 4 mg PO Q8H PRN (Reason: nausea and vomiting) Qty: 14 RF: 0 Continued promethazine 25 mg suppository 25 mg HI Q6H PRN (Reason: nausea and vomiting) Qty: 12 RF: 0 gabapentin 300 mg Capsule 800 mg PO TID RF: 0 methadone 10 MG/ML concentrate 105 mg PO DAILY RF: 0 dexmethylphenidate [Focalin XR] 35 mg capsule,ER biphasic 50-50 35 mg PO DAILY RF: 0 doxycycline hyclate 100 mg capsule 100 mg PO BID Qty: 14 RF: 0 meclizine 25 mg tablet,chewable 25 mg PO BID Qty: 20 RF: 0 Discharge Instructions Instructions: Acute Nausea and Vomiting (ED), Abdominal Pain (ED) Additional Instructions: Follow up with primary care provider in 3-5 days. Return to ED sooner if any worsening or concerns. Increase oral fluids. Take nausea prescription as directed. Please take Tylenol or Ibuprofen with food every 4-6 hours as needed for pain and swelling. Referrals: Linda Gunn [Primary Care Provider] - Medical Decision Making <Gil Haro MD - Last Filed: 09/24/20 07:09> 30 yo female with hx of prior endocarditis with prior IVDU and no longer uses per patient, prior cholecystectomy and abdominal hernia repair comes in with n/v since yesterday around 5pm along with left lower and upper abdominal pain. She was dry heaving this morning and felt dehydrated so called ems who gave her 4mg zofran with some relief of her symptoms. Deniesfevers, chest pain, dyspnea. Has had loose stools as well. She arrives hemodynamically stable. Has a soft abdomen with tenderness in the luq and llq without guarding on exam. Her symptoms could be from diverticulitis, gastroenteritis, pancreatitis, or SBO among other pathology. Will obtain labs and CT to assess for these and reassess pt remains stable without changes, awaiting imaging and lab results pt signed out to oncoming provider pending labs and imaging, dispo. Differential Diagnosis Differential Diagnosis: diverticulitis, sbo, gastroenteritis Medical Records Medical records reviewed: Yes I reviewed the patient's medical records. Lab Data Lab results reviewed: Yes I reviewed the patient's lab results. <Arely Lovett - Last Filed: 09/24/20 08:58> 0758: Care assumed from off going provider (Gil aHro MD) Discussed patient details and case and pending workup and disposition. Patient is hemodynamically stable, and pending labs and CT abdomen pelvis. Informed by senior staff accountant that patient is up and requesting to leave states she feels much better. CT result is pending at this time. 0855: Discussed CT results with radiologist Dr. Parrish, no acute changes. Postop changes previously have improved. CT Abd/Pelvis: IMPRESSION: No acute abdominal or pelvic process. Findings were discussed with the emergency department on the date of the examination. Patient given a prescription for Zofran and home care instructions. She was hemodynamically stable at the time of this dictation. HPI <Gil Haro MD - Last Filed: 09/24/20 07:09> General Mode of arrival: EMS . Date/Time Provider Initiated Documentation: 09/24/20 06:56 . Limitations to Documentation: no limitations . Information obtained by: patient . History of Present Illness 30 year old F presents to the emergency department with the chief complaint of n/v, described as moderate, Patient started experiencing this day(s) (1) and it has been constant. No relieving factors improve symptom(s), No exacerbating factors reported . Patient notes other (abdominal pain). Patient did receive the following treatments prior to arrival, other (zofran with ems) Related Data Home Medications Medication Instructions Recorded Confirmed gabapentin 800 mg PO TID 01/05/19 09/24/20 methadone 105 mg PO DAILY 01/05/19 09/24/20 promethazine 25 mg HI Q6H PRN #12 each 01/21/20 09/24/20 dexmethylphenidate [Focalin XR] 35 mg PO DAILY 04/10/20 09/24/20 doxycycline hyclate 100 mg PO BID #14 cap 09/10/20 09/24/20 meclizine 25 mg PO BID #20 tab 09/17/20 09/24/20 ondansetron HCl [Zofran] 4 mg PO Q8H PRN #14 tab 09/24/20 Previous Rx's Medication Instructions Recorded promethazine 25 mg HI Q6H PRN #12 each 01/21/20 doxycycline hyclate 100 mg PO BID #14 cap 09/10/20 meclizine 25 mg PO BID #20 tab 09/17/20 ondansetron HCl [Zofran] 4 mg PO Q8H PRN #14 tab 09/24/20 Allergies Allergy/AdvReac Type Severity Reaction Status Date / Time No Known Allergies Allergy Unverified 09/24/20 06:56 General Stated Complaint: Nausea/Vomit/Diar PATRICIA: 3 Review of Systems <Gil Haro MD - Last Filed: 09/24/20 07:09> All systems reviewed & are unremarkable except as noted in HPI and below Constitutional Constitutional: Denies chills and Denies fever(s) Cardiovascular Cardiovascular: Denies chest pain and Denies dyspnea Respiratory Respiratory: Denies cough and Denies dyspnea PFSH <Gil Haro MD - Last Filed: 09/24/20 07:09> Medical History (Updated 09/24/20 @ 07:09 by Gil Haro MD) Anxiety Bipolar disorder Endocarditis GERD (gastroesophageal reflux disease) Hepatitis C Obesity Surgical History History of heart valve replacement Social History Smoking/Tobacco Use Status: Current every day Tobacco Type: cigarettes Smoking risk assessment performed?: Yes Alcohol Intake: never Drug use: Occasionally Substance use type: 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 Do you feel safe at home: Yes Do you feel safe in your relationship?: Yes Exam <Gil Haro MD - Last Filed: 09/24/20 07:09> Const General: no acute distress Orientation: alert HENMT Head: normal to inspection Ears: external ears normal General nose exam: external nose normal Mouth: moist mucous membranes Eyes General: appearance normal, both eyes and all related structures Neck Neck: normal visual inspection Resp Effort & Inspection: normal respiratory effort and able to speak in complete sentences Cardio Rate: regular rate GI Inspection: normal to inspection Palpation: soft Skin General skin exam: no rashes or lesions noted Neuro General: patient alert and patient oriented x3 Extrem General: normal to inspection Psych Mental Status: mental status grossly normal Course <Gil Haro MD - Last Filed: 09/24/20 07:09> Vital Signs Vital signs: Vital Signs Temperature 36.5 C 09/24/20 06:49 Pulse 72 09/24/20 06:49 Respiratory Rate 16 09/24/20 06:49 Blood Pressure 122/76 09/24/20 06:49 Pulse Oximetry 98 09/24/20 06:49 Temperature 36.5 C 09/24/20 06:49 Temperature Source Skin 09/24/20 06:49 Pulse 72 09/24/20 06:49 Respiratory Rate 16 09/24/20 06:49 Respiratory Effort Non-Labored 09/24/20 06:49 Blood Pressure 122/76 09/24/20 06:49 Blood Pressure Position Supine 09/24/20 06:49 Pulse Oximetry 98 09/24/20 06:49 Oxygen Delivery Method Room Air 09/24/20 06:49 Oxygen Flow Rate 0 09/24/20 06:49 Pain Level 6 09/24/20 06:49 Sign Out <Gil Haro MD - Last Filed: 09/24/20 07:09> Sign Out Data: Sign Out Comment: n/v and left sided abdominal pain, labs CT and final dispo Last updated by Gil Haro MD at 09/24/20 07:10
[2020-09-24] MEDS: Normal Saline Flush 10 ML SYR IVP (07:25)
[2020-09-24 07:29] LABS: Abs Immature Grans 0.04 10^3/uL (0.0-0.06); Absolute Basophil Count 0.05 10^3/uL (0.0-0.2); Absolute Eosinophil Count 0.19 10^3/uL (0.0-0.7); Absolute Lymphocyte Count 2.06 10^3/uL (1.2-3.4); Absolute Monocyte Count 0.38 10^3/uL (0.1-0.8); Absolute Neutrophil Count 7.58 10^3/uL (1.2-6.7); Basophils % 0.5; Eosinophils % 1.8; HCT 41.4 % (36.0-46.0); HGB 13.2 g/dL (11.2-15.7); Immature Grans % 0.4; MCH 27.8 pg (27.0-33.0); MCHC 31.9 % (32.0-36.0); MCV 87.3 fL (80-95); Monocytes % 3.7; Neutrophils % 73.6; Nucleated RBC 0 %; Platelet Count 348 10^3/uL (130-400); RBC 4.74 10^6/uL (3.93-5.22); RDW 13.7 % (11.7-14.6); RDW-SD 43.9 fL
[2020-09-24] MEDS: Normal Saline 1,000 ML 1000 ML IV (07:30)
[2020-09-24] MEDS: Ondansetron 4 MG/2 ML VIAL IVP (07:30)
[2020-09-24] MEDS: Ketorolac 15 MG/ML VIAL IVP (07:40)
[2020-09-24 07:42] LABS: ALT 19 U/L (14-59); AST 16 U/L (15-37); Albumin 3.6 g/dL (3.4-5.0); Alkaline Phosphatase 93 U/L (46-116); Anion Gap 5.1 mmol/L (3-11); BUN 11 mg/dL (7-18); Bilirubin, Direct 0.06 mg/dL (0.00-0.20); Bilirubin, Total 0.3 mg/dL (0.2-1.0); CO2 28.9 mmol/L (21.0-32.0); CREATININE 0.99 mg/dL (0.55-1.02); Calcium 8.8 mg/dL (8.5-10.1); Chloride 103 mmol/L (98-107); Glucose 101 mg/dL (74-106); Lipase 75 U/L (73-393); Magnesium 1.9 mg/dL (1.8-2.4); Potassium 3.9 mmol/L (3.5-5.1); Sodium 137 mmol/L (136-145); Total Protein 7.7 g/dL (6.4-8.2)
[2020-09-24 07:51] LABS: Bilirubin Negative (Negative); Blood Negative (Negative); Clarity Clear (Clear); Glucose Negative (Negative); Ketones Negative (Negative); Leukocyte Esterase Negative (Negative); Nitrite Negative (Negative); Specific Gravity 1.025 (1.005-1.025); Urobilinogen 0.2 EU/dL (Up TO 0.2)
[2020-09-24] MEDS: Omnipaque 350 MG/ML 100 ML BTL IJ (08:08)
[2020-09-24] MEDS: Normal Saline - Diluent 50 ML VIAL IV (08:09)
[2020-09-24 08:55] VITALS: BP 102/59; PULSE 57; RESP 16; TEMP 36.5; O2SAT 95
== END 2020-09-24 08:59 | disposition home or self-care (01) ==
PROVIDERS: Emergency Medicine; Emergency Provider Registered Nurse Emergency; PCP Nurse Practitioner Family
DX: R10.12 Left upper quadrant pain (principal); R10.32 Left lower quadrant pain; R11.2 Nausea with vomiting, unspecified
CPT/HCPCS: 36415; 80053; 81025; 83690; 96361; 96374; 96375; 99285; 74177; 81003; 82248; 83735; 85025; 99284; J1885; J2405; J3490

== ENCOUNTER 2020-09-26 06:02 | Emergency (ER) | payer MEDICAID, SELFPAY ==
[2020-09-26 06:12] VITALS: BP 138/86; PULSE 83; RESP 18; TEMP 36.2; O2SAT 97
--- NOTE | 2020-09-26 06:14 | ED.GENADUL_ITS ---
Discharge Plan Disposition Patient Disposition: HOME Condition: Stable Discharge Details Clinical Impression: Cyclical vomiting Primary Care Provider: Linda Gunn ED Provider: Gil Haro Home Meds and New Rx's Prescriptions: New lorazepam 1 mg tablet 1 mg PO TID PRN (Reason: nausea and vomiting) Qty: 10 RF: 0 Continued promethazine 25 mg suppository 25 mg GA Q6H PRN (Reason: nausea and vomiting) Qty: 12 RF: 0 ondansetron HCl [Zofran] 4 mg tablet 4 mg PO Q8H PRN (Reason: nausea and vomiting) Qty: 14 RF: 0 gabapentin 300 mg Capsule 800 mg PO TID RF: 0 methadone 10 MG/ML concentrate 105 mg PO DAILY RF: 0 dexmethylphenidate [Focalin XR] 35 mg capsule,ER biphasic 50-50 35 mg PO DAILY RF: 0 Discharge Instructions Instructions: Cyclic Vomiting Syndrome (ED) Additional Instructions: try to continue to refrain from marijuana use follow up with your primary care provider within 1-2 weeks Medical Decision Making 30 yo female with hx of anxiety, bipolar, 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 She has been having issues with nausea and vomit intermittently for months now but moreso the past week. She was seen in the ED 2 days ago and had labs and a ct abd/pevlis which did not show any concerning findings and was d/c'd. She continues to havenausea and had nonbilious nonbloody vomit this morning. She denies fevers, chest pain or dyspnea. She has a mild frontal headache she staets is not the worst of her life and is similar to her prior chronic headaches. She has a soft nontedner abdomen. She does appear anxious on exam, no si/hi. I discussed risks of repeat radiation with CT's and risks of missing things like sbo (though unlikely given negative CT 2 days ago) and ich and she currently declines to have repeat imaging and has capacity to make her own decisions. She has stable vitals and moist mucous membranes so doubt significant dehydration. She does use marijuana frequently so suspect this could be hyperemesis cannabinoid. She would like a different medication to try for her n/v. Given negative labs including electrolytes two days ago doubt acute abnormalities but did offer to repeat them but she declined. Will have her try ativan and also advised importance of f/u with her pcp and discussed return precautions including worsening pain, persistent vomit or if she feels more ill Differential Diagnosis Differential Diagnosis: cyclic vomit syndrome, hyperemesis cannabinoid syndrome, sbo HPI General Mode of arrival: ambulatory . Date/Time Provider Initiated Documentation: 09/26/20 06:03 . Limitations to Documentation: no limitations . Information obtained by: patient . History of Present Illness 30 year old F presents to the emergency department with the chief complaint of nausea, described as moderate, Patient started experiencing this day(s) (7) and it has been intermittent. No relieving factors improve symptom(s), No exacerbating factors reported . Related Data Home Medications Medication Instructions Recorded Confirmed gabapentin 800 mg PO TID 01/05/19 09/24/20 methadone 105 mg PO DAILY 01/05/19 09/24/20 promethazine 25 mg GA Q6H PRN #12 each 01/21/20 09/24/20 dexmethylphenidate [Focalin XR] 35 mg PO DAILY 04/10/20 09/24/20 ondansetron HCl [Zofran] 4 mg PO Q8H PRN #14 tab 09/24/20 lorazepam 1 mg PO TID PRN #10 tab 09/26/20 Previous Rx's Medication Instructions Recorded promethazine 25 mg GA Q6H PRN #12 each 01/21/20 ondansetron HCl [Zofran] 4 mg PO Q8H PRN #14 tab 09/24/20 lorazepam 1 mg PO TID PRN #10 tab 09/26/20 Allergies Allergy/AdvReac Type Severity Reaction Status Date / Time No Known Allergies Allergy Unverified 09/26/20 06:23 General PATRICIA: 3 Review of Systems All systems reviewed & are unremarkable except as noted in HPI and below Constitutional Constitutional: Denies chills, Denies fever(s) and Denies weakness Cardiovascular Cardiovascular: Denies chest pain and Denies dyspnea Respiratory Respiratory: Denies cough and Denies dyspnea Musculoskeletal Musculoskeletal: Denies joint swelling Neurologic Neurologic: Denies weakness Psychiatric Psychiatric: Denies depression [facility] Medical History (Updated 09/26/20 @ 06:24 by Gil Haro MD) Anxiety Bipolar disorder Endocarditis GERD (gastroesophageal reflux disease) Hepatitis C Obesity Surgical History History of heart valve replacement Social History Smoking/Tobacco Use Status: Current every day Tobacco Type: cigarettes Smoking risk assessment performed?: Yes Alcohol Intake: never Drug use: Daily Substance use type: 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 Do you feel safe at home: Yes Do you feel safe in your relationship?: Yes Exam Const General: anxious Orientation: alert HENMT Head: normal to inspection Ears: external ears normal General nose exam: external nose normal Mouth: moist mucous membranes Eyes General: appearance normal, both eyes and all related structures Neck Neck: normal visual inspection Resp Effort & Inspection: normal respiratory effort and able to speak in complete sentences Cardio Rate: regular rate GI Palpation: soft and nontender Skin General skin exam: no rashes or lesions noted Neuro General: patient alert and patient oriented x3 Extrem General: normal to inspection Psych Mental Status: mental status grossly normal
[2020-09-26] MEDS: LORazepam 1 MG TAB PO (06:30)
== END 2020-09-26 06:38 | disposition home or self-care (01) ==
LOC: ER 06:31
PROVIDERS: Emergency Provider Emergency Medicine; PCP Nurse Practitioner Family
DX: R11.15 Cyclical vomiting syndrome unrelated to migraine (principal)
CPT/HCPCS: 99283

== ENCOUNTER 2020-10-17 04:45 | Emergency (ER) | payer MEDICAID, SELFPAY ==
[2020-10-17 04:46] VITALS: BP 142/93; PULSE 92; RESP 16; TEMP 36.8; O2SAT 98
--- NOTE | 2020-10-17 04:51 | ED.GENADUL_ITS ---
Discharge Plan Disposition Patient Disposition: HOME Condition: Good Discharge Details Clinical Impression: Pharyngitis Primary Care Provider: Linda Gunn ED Provider: Arie Verduzco Home Meds and New Rx's Prescriptions: Continued promethazine 25 mg suppository 25 mg DE Q6H PRN (Reason: nausea and vomiting) Qty: 12 RF: 0 ondansetron HCl [Zofran] 4 mg tablet 4 mg PO Q8H PRN (Reason: nausea and vomiting) Qty: 14 RF: 0 lorazepam 1 mg tablet 1 mg PO TID PRN (Reason: nausea and vomiting) Qty: 10 RF: 0 gabapentin 300 mg Capsule 800 mg PO TID RF: 0 methadone 10 MG/ML concentrate 105 mg PO DAILY RF: 0 dexmethylphenidate [Focalin XR] 35 mg capsule,ER biphasic 50-50 35 mg PO DAILY RF: 0 Discharge Instructions Instructions: Pharyngitis (ED) Additional Instructions: At this time your symptoms are consistent with mild pharyngitis. Likely secondary to a virus. Strep test is negative. Please take Tylenol and Motrin as needed for pain. Gargle with salt water. Drink plenty of fluids. If you notice any worsening of your symptoms, or any new symptoms such as vomiting, diarrhea, fever, chills, shortness of breath, chest pain, numbness, weakness, or fainting , please return immediately to the emergency department for reevaluation. Please follow up with your primary care provider as soon as possible for reassessment and reevaluation. As always, it was a pleasure participating in your medical care today. Referrals: Linda Gunn [Primary Care Provider] - Medical Decision Making This is a 30-year-old female with a past medical history of endocarditis, hepatitis C, bipolar disorder, cholecystectomy, and a recent umbilical hernia repair who presents today for evaluation of sore throat. Patient states that she has had a sore throat this evening. She has not taken any Tylenol or Motrin. She denies any fever chills or cough. She denies any difficulty swallowing. She does admit to mild pain with swallowing in the back of her throat which she describes as scratchy. No other complaints at time. No other modifying factors. Exam demonstrates a notably unremarkable posterior oropharynx. Strep test is negative. Tonsils are unremarkable. Symptoms inconsistent with mono. Suspect mild pharyngitis, potentially viral in origin. No lesions noted in the mouth. We did give some aerosolized bupivacaine and this did help. We did give her a shot of Toradol. Recommend Tylenol Motrin at home. At this time there is no clinical evidence of acute life-threatening etiology, vital signs notably stable. Discussed red flags which return. I have extensively reviewed the treatment plan and discharge instructions with the patient. I have addressed all patient concerns at this time. The patient was made aware of what symptoms to monitor for that would warrant a return to the emergency department. Discussed the plan with the patient, they demonstrate verbal understanding and agreement with our assessment and plan at this time. The documentation in this chart was dictated using [employer] dictation software. Please excuse any dictation errors. HPI General Date/Time Provider Initiated Documentation: 10/17/20 05:00 . HPI Narrative: This is a 30-year-old female with a past medical history of endocarditis, hepatitis C, bipolar disorder, cholecystectomy, and a recent umbilical hernia repair who presents today for evaluation of sore throat. Shannan headley states that she has had a sore throat this evening. She has not taken any Tylenol or Motrin. She denies any fever chills or cough. She denies any difficulty swallowing. She does admit to mild pain with swallowing in the back of her throat which she describes as scratchy. No other complaints at time. No other modifying factors. Related Data Home Medications Medication Instructions Recorded Confirmed gabapentin 800 mg PO TID 01/05/19 09/26/20 methadone 105 mg PO DAILY 01/05/19 09/26/20 promethazine 25 mg DE Q6H PRN #12 each 01/21/20 09/26/20 dexmethylphenidate [Focalin XR] 35 mg PO DAILY 04/10/20 09/26/20 ondansetron HCl [Zofran] 4 mg PO Q8H PRN #14 tab 09/24/20 09/26/20 lorazepam 1 mg PO TID PRN #10 tab 09/26/20 Previous Rx's Medication Instructions Recorded promethazine 25 mg DE Q6H PRN #12 each 01/21/20 ondansetron HCl [Zofran] 4 mg PO Q8H PRN #14 tab 09/24/20 lorazepam 1 mg PO TID PRN #10 tab 09/26/20 Allergies Allergy/AdvReac Type Severity Reaction Status Date / Time No Known Allergies Allergy Unverified 09/26/20 06:23 General Stated Complaint: Sorethroat PATRICIA: 4 Review of Systems All systems reviewed & are unremarkable except as noted in HPI and below PFSH Medical History Anxiety Bipolar disorder Endocarditis GERD (gastroesophageal reflux disease) Hepatitis C Obesity Surgical History History of heart valve replacement Social History Smoking/Tobacco Use Status: Current every day Tobacco Type: cigarettes Smoking risk assessment performed?: Yes Alcohol Intake: never Drug use: Daily Substance use type: 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 3.ENT: Atraumatic external nose and ears. Moist MM. Neck: Symmetric, trachea midline, No thyromegaly. Posterior oropharynx shows no evidence of significant redness or swelling. No edema of the tonsils. Minimal cobblestoning. Palpation of the neck reveals no evidence of Ludewig's angina, abscess swelling or notable tenderness. Patient demonstrates good movement of cervical neck. There is no nuchal rigidity, no nuchal tenderness. Patient is able to flex the neck without any difficulty or significant pain. Negative Kernig's and Brudzinski sign. 4.CVS: +S1/S2, No murmurs or gallops. Peripheral pulses 2+ and equal in all extremities. Brisk capillary refill in all extremities. 5.RESP: Unlabored respiratory effort. Clear to auscultation bilaterally. No wheezes rales or rhonchi 6.GI: Soft, Nontender/Nondistended, No hepatosplenomegaly. No guarding or rebound. 7.MSK: Normocephalic/Atraumatic, Extremities w/o deformity or ttp No cyanosis or clubbing, Normal movement of all extremities 8.Skin: Warm, Dry. No rashes or lesions. 9.Neuro: monitor and storage bin tender II-XII grossly intact. Sensation grossly intact, no focal neurologic deficits. 10.Psych: (AAO) x3. Appropriate mood and affect Course Vital Signs Vital signs: Vital Signs Temperature 36.8 C 10/17/20 04:46 Pulse 92 H 10/17/20 04:46 Respiratory Rate 16 10/17/20 04:46 Blood Pressure 142/93 H 10/17/20 04:46 Pulse Oximetry 98 10/17/20 04:46 Temperature 36.8 C 10/17/20 04:46 Temperature Source Temporal Artery Scan 10/17/20 04:46 Pulse 92 H 10/17/20 04:46 Respiratory Rate 16 10/17/20 04:46 Respiratory Effort Non-Labored 10/17/20 04:48 Blood Pressure 142/93 H 10/17/20 04:46 Blood Pressure Position Sitting 10/17/20 04:46 Pulse Oximetry 98 10/17/20 04:46 Oxygen Delivery Method Room Air 10/17/20 04:46 Oxygen Flow Rate 0 10/17/20 04:46 Pain Level 8 10/17/20 04:46
[2020-10-17] MEDS: Benzocaine 20% 60 ML CAN (04:58)
[2020-10-17 05:00] VITALS: BP 142/93; PULSE 92; RESP 16; TEMP 36.8; O2SAT 98
[2020-10-17] MEDS: Ketorolac 30 MG/ML VIAL IM (05:00)
== END 2020-10-17 05:03 | disposition home or self-care (01) ==
LOC: ER 05:06
PROVIDERS: Emergency Provider Student in an Organized Health Care Education/Training Program; PCP Nurse Practitioner Family
DX: J02.8 Acute pharyngitis due to other specified organisms (principal)
CPT/HCPCS: 87880; 96372; 99284; 87081; 99283; J1885

== ENCOUNTER 2020-11-15 16:50 | Emergency (ER) | payer MEDICAID, SELFPAY ==
[2020-11-15 16:51] VITALS: BP 135/75; PULSE 77; RESP 16; TEMP 36; O2SAT 98
--- NOTE | 2020-11-15 17:29 | W.ED.GENAD ---
Discharge Plan Disposition Patient Disposition: OTHER Discharge Details Chief Complaint: GenMedical Clinical Impression: Anxiety, Eloped from emergency department Primary Care Provider: Linda Gunn ED Provider: Rick Zarco Home Meds and New Rx's Prescriptions: No Action gabapentin 300 mg Capsule 800 mg PO TID RF: 0 methadone 10 MG/ML concentrate 105 mg PO DAILY RF: 0 dexmethylphenidate [Focalin XR] 35 mg capsule,ER biphasic 50-50 35 mg PO DAILY RF: 0 Medical Decision Making 30-year-old female with history of anxiety disorder, opioid use disorder on methadone, frequent ED visits, presents with chief complaint of anxiety. Upon entering the room, patient immediately demanded Ativan noting that she has been given this in the past. I explained the patient that I wanted to consult with her primary care physician, Dr. Lobato and develop a treatment plan for her today. I paged Dr. Lobato and was awaiting callback when notified by nursing that patient eloped from the emergency department noting that she had spoken with her mother and decided that she should go home. Of note patient did have decision-making capacity on my assessment. Patient ambulated out of the emergency department per nursing without any dysfunction prior to being able to reevaluate her. Patient eloped from emergency department. HPI General Mode of arrival: ambulatory. Date/Time Provider Initiated Documentation: 11/15/20 16:59. Limitations to Documentation: no limitations. Information obtained by: patient. HPI Narrative: 30-year-old female with frequent ED presentation presents with chief complaint of anxiety, requesting benzodiazepine. Patient notes they always give me Ativan. Patient notes symptoms started this morning have persisted. She notes intermittent anxiety over the past 1 year. Anxiety is been severe. No modifiers. No known inciting factors. Patient denies associated chest pain or shortness of breath. Related Data Home Medications Medication Instructions Recorded Confirmed gabapentin 800 mg PO TID 01/05/19 11/15/20 methadone 105 mg PO DAILY 01/05/19 11/15/20 dexmethylphenidate [Focalin XR] 35 mg PO DAILY 04/10/20 11/15/20 Allergies Allergy/AdvReac Type Severity Reaction Status Date / Time No Known Allergies Allergy Unverified 09/26/20 06:23 General Stated Complaint: GenMedical PATRICIA: 3 Review of Systems All systems reviewed & are unremarkable except as noted in HPI and below Constitutional Constitutional: Denies fever(s) Psychiatric Psychiatric: Reports anxiety, Denies homicidal ideation and Denies suicidal ideation [facility] Medical History (Updated 11/15/20 @ 17:36 by Rick Zarco MD) Anxiety Bipolar disorder Endocarditis GERD (gastroesophageal reflux disease) Hepatitis C Obesity Surgical History History of heart valve replacement Social History Smoking/Tobacco Use Status: Current every day Tobacco Type: cigarettes Smoking risk assessment performed?: Yes Alcohol Intake: never Drug use: Daily Substance use type: 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 Do you feel safe at home: Yes Do you feel safe in your relationship?: Yes Exam Const General: cooperative, well developed and other (Upset) Orientation: alert and awake HENMT Mouth: moist mucous membranes Eyes Conjunctivae: normal conjunctivae Sclera: normal sclerae Neck Neck: trachea midline and supple Resp Auscultation: clear to auscultation bilaterally, no rales, no rhonchi and no wheezes Cardio Rate: regular rate and not tachycardic Rhythm: regular rhythm GI Palpation: soft, not firm, no guarding, no masses, not rigid and nontender Skin General skin exam: no rashes or lesions noted Neuro General: patient alert, patient awake, patient oriented x3 and tone normal Extrem General: no edema Psych Appearance: grossly normal Mood: anxious mood Affect: anxious affect Thought Content: normal Insight: insight good Course Vital Signs Vital signs: Vital Signs Temperature 36.0 C L 11/15/20 16:51 Pulse 77 11/15/20 16:51 Respiratory Rate 16 11/15/20 16:51 Blood Pressure 135/75 11/15/20 16:51 Pulse Oximetry 98 11/15/20 16:51 Temperature 36.0 C L 11/15/20 16:51 Temperature Source Skin 11/15/20 16:51 Pulse 77 11/15/20 16:51 Respiratory Rate 16 11/15/20 16:51 Respiratory Effort 11/15/20 16:54 Blood Pressure 135/75 11/15/20 16:51 Blood Pressure Position Sitting 11/15/20 16:51 Pulse Oximetry 98 11/15/20 16:51 Oxygen Delivery Method Room Air 11/15/20 16:51 Oxygen Flow Rate 0 11/15/20 16:51 Pain Level 7 11/15/20 16:51
== END 2020-11-15 17:45 | disposition other institution (70) ==
LOC: ER 18:52
PROVIDERS: Emergency Provider Student in an Organized Health Care Education/Training Program; PCP Nurse Practitioner Family
DX: F41.9 Anxiety disorder, unspecified (principal); Z53.29 Procedure and treatment not carried out because of patient's decision for other reasons
CPT/HCPCS: 99281

== ENCOUNTER 2020-12-02 02:13 | Outpatient (CLI) | payer OTHER, MEDICAID, SELFPAY ==
--- NOTE | 2020-12-02 12:31 | DI.RAD_ITS ---
EXAM: XR KNEE RT 2V AP,LAT CLINICAL HISTORY: PAIN, DISABILITY DETERMINATION. TECHNIQUE: 2D digital imaging was performed. COMPARISON: CR XR KNEE LT 2V AP,LAT from 12/02/2020 FINDINGS: There is no evidence of fracture nor prominent joint effusion. No joint space narrowing. No osteoph ytes. Bone density is normal. No osseous lesions. IMPRESSION: No significant radiograph findings in these two views of the right knee. DATA REPOSITORY: RADIATION DOSE DELIVERED:
--- NOTE | 2020-12-02 12:31 | DI.RAD_ITS ---
EXAM: XR KNEE LT 2V AP,LAT CLINICAL HISTORY: PAIN,DISABILITY DETERMINATION. TECHNIQUE: 2D digital imaging was performed. COMPARISON: No exams were available for comparison FINDINGS: There is no evidence of fracture nor obvious joint effusion. No degenerative changes. No osteophyte s. Bone density is normal. There are no osseous lesions. IMPRESSION: No significant radiographic findings on these two views of the left knee. DATA REPOSITORY: RADIATION DOSE DELIVERED:
--- NOTE | 2020-12-02 12:31 | DI.RAD_ITS ---
EXAM: XR LUMBAR SPINE AP, LAT CLINICAL HISTORY: BACK PAIN,DISABILITY DETERMINATION. TECHNIQUE: 2D digital imaging was performed. COMPARISON: No exams were available for comparison FINDINGS: There is no evidence of fracture or listhesis. No prominent disc space narrowing. Mild degenerative changes in the facet joints lower level. No scoliosis. Bone density is normal. No osseous lesions . IMPRESSION: No significant radiographic findings in the lumbosacral column. Incidentally noted are sternotomy wires. DATA REPOSITORY: RADIATION DOSE DELIVERED:
== END 2020-12-02 02:33 ==
PROVIDERS: PCP Nurse Practitioner Family; Visit Provider Pediatrics Pediatric Rheumatology
DX: M54.5 Low back pain (principal); M25.561 Pain in right knee; M25.562 Pain in left knee; Z02.71 Encounter for disability determination
CPT/HCPCS: 72100; 73560

== ENCOUNTER 2020-12-11 03:42 | Emergency (ER) | payer MEDICAID, SELFPAY ==
[2020-12-11 03:45] VITALS: BP 127/68; PULSE 77; RESP 16; TEMP 36.5; O2SAT 98
--- NOTE | 2020-12-11 03:45 | DI.CT_ITS ---
EXAM: CT HEAD WO CLINICAL HISTORY: headache. TECHNIQUE: Imaging Protocol: Axial computed tomography images with coronal and sagittal reformatted images were created and reviewed COMPARISON: CT CT HEAD WO from 05/28/2019 FINDINGS: Ventricles and Extra axial spaces: Normal in size and morphology for the patient's age. Hemorrhage: None. Cerebral parenchyma: Normal. Midline shift: None. Brainstem/Cerebellum: Borderline low lying cerebellar tonsils. Calvarium: Normal. Visualized Paranasal sinuses/Mastoids: Minimal ethmoid sinus disease. Soft Tissues: Unremarkable. IMPRESSION: Stable appearance of borderline low lying cerebellar tonsils. No acute intracranial process. RADIATION DOSE DELIVERED: 766.3mGy.cm Total DLP DATA REPOSITORY: All CT scans at this facility are submitted to the National Radiology Data Registry (NRDR) Dose Index Registry (DIR) with the [employer] ([employer]). RADIATION OPTIMIZATION: All CT scans at this facility use at least one of these dose optimization te chniques: automated exposure control; mA and/or kV adjustment per patient size (includes targeted exa ms where dose is matched to clinical indication); or iterative reconstruction.
[2020-12-11 03:51] VITALS: RESP 16
--- NOTE | 2020-12-11 03:55 | ED.GENADUL_ITS ---
Discharge Plan Disposition Patient Disposition: HOME Condition: Stable Discharge Details Clinical Impression: Headache, Drug reaction Primary Care Provider: Timothy Bliss ED Provider: Gil Haro Home Meds and New Rx's Prescriptions: Continued gabapentin 300 mg Capsule 800 mg PO TID RF: 0 methadone 10 MG/ML concentrate 105 mg PO DAILY RF: 0 dexmethylphenidate [Focalin XR] 35 mg capsule,ER biphasic 50-50 35 mg PO DAILY RF: 0 Discharge Instructions Additional Instructions: your cat scan did not show any concerning findings, this was likely a reaction to the drugs follow up with your primary care provider within 1-2 weeks if you feel more ill, have difficulty breathing or severe pain return to the emergency department Medical Decision Making 30 yo female with hx of anxiety and 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 She states she smoked less than an hour ago and started to feel anxious, shaky, sweaty and developed nausea without vomit and moderate frontal headache. No loc and no chest pain or dyspnea, no abdominal pain. arrives stable with normal gait speaking clearly though does appear anxious. Clear lungs, soft nontender abdomen and normal sensation and motor of the extremities. Suspect drug reaction but given she states she doesn't frequently get headaches will obtain ct to evaluate for possible intracranial hemorrhage given it is within 6 hours of onset. 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 Will check urine drug screen as well and treat her nausea with reglan ( on methadone so will avoid zofran). ct shows no acute findings, has some evidence of possible fluid in right ethmoid air cells but denies any sinusitis symptoms. She remains stable, caox4 still without deficits. No need for narcan. Will d/c and advised to try and refrain from using drugs especially not knowing source where it is from and return precautions given Differential Diagnosis Differential Diagnosis: drug reaction, intracranial hemorrhage, anxiety Medical Records Medical records reviewed: Yes I reviewed the patient's medical records. Imaging Data Radiologic Study: Attestation: I personally reviewed and interpreted this imaging study as follows: Imaging: CT Scan Radiologist's impression: IMPRESSION: No acute intracranial abnormality. Low-lying cerebellar tonsils which may be positional, grossly stable in appearance. Correlate for occipital headaches Minimal fluid level versus secretions in the posterior right ethmoid air cells HPI General Mode of arrival: EMS (able to walk to the bathroom after getting off stretcher) . Date/Time Provider Initiated Documentation: 12/11/20 03:49 . Limitations to Documentation: no limitations . Information obtained by: patient . History of Present Illness 30 year old F presents to the emergency department with the chief complaint of nausea, described as moderate, and it has been constant. No relieving factors improve symptom(s), No exacerbating factors reported . Patient did receive the following treatments prior to arrival, none Related Data Home Medications Medication Instructions Recorded Confirmed gabapentin 800 mg PO TID 01/05/19 12/11/20 methadone 105 mg PO DAILY 01/05/19 12/11/20 dexmethylphenidate [Focalin XR] 35 mg PO DAILY 04/10/20 12/11/20 Allergies Allergy/AdvReac Type Severity Reaction Status Date / Time No Known Allergies Allergy Unverified 12/11/20 03:48 General Stated Complaint: Anxiety PATRICIA: 4 Review of Systems All systems reviewed & are unremarkable except as noted in HPI and below Constitutional Constitutional: Denies chills and Denies fever(s) ENT Ears, Nose, Mouth, and Throat: Denies change in voice Cardiovascular Cardiovascular: Denies chest pain and Denies dyspnea Respiratory Respiratory: Denies cough and Denies dyspnea Gastrointestinal Gastrointestinal: Denies abdominal pain and Denies vomiting Genitourinary Genitourinary: Denies dysuria Musculoskeletal Musculoskeletal: Denies joint swelling Psychiatric Psychiatric: Denies depression [facility] Medical History (Updated 12/11/20 @ 04:32 by Gil Haro MD) Anxiety Bipolar disorder Endocarditis GERD (gastroesophageal reflux disease) Hepatitis C Obesity Surgical History History of heart valve replacement Social History Smoking/Tobacco Use Status: Current every day Tobacco Type: cigarettes Smoking risk assessment performed?: Yes Alcohol Intake: never Drug use: Daily Substance use type: 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 Do you feel safe at home: Yes Do you feel safe in your relationship?: Yes Exam Const General: no acute distress and anxious Orientation: alert HENMT Head: normal to inspection Ears: external ears normal General nose exam: external nose normal Mouth: moist mucous membranes Eyes General: appearance normal, both eyes and all related structures Neck Neck: normal visual inspection Resp Effort & Inspection: normal respiratory effort and able to speak in complete sentences Cardio Rate: regular rate GI Palpation: soft and nontender Skin General skin exam: no rashes or lesions noted Neuro General: patient alert and patient oriented x3 Extrem General: normal to inspection Psych Mental Status: mental status grossly normal Course Vital Signs Vital signs: Vital Signs Temperature 36.5 C 12/11/20 03:45 Pulse 77 12/11/20 03:45 Respiratory Rate 16 12/11/20 03:45 Blood Pressure 127/68 12/11/20 03:45 Pulse Oximetry 98 12/11/20 03:45 Temperature 36.5 C 12/11/20 03:45 Temperature Source Tympanic 12/11/20 03:45 Pulse 77 12/11/20 03:45 Respiratory Rate 16 12/11/20 03:51 Respiratory Effort Non-Labored 12/11/20 03:51 Respiratory Depth Normal 12/11/20 03:51 Respiratory Pattern Normal 12/11/20 03:51 Blood Pressure 127/68 12/11/20 03:45 Blood Pressure Position Sitting 12/11/20 03:45 Pulse Oximetry 98 12/11/20 03:45 Oxygen Delivery Method Room Air 12/11/20 03:45 Oxygen Flow Rate 0 12/11/20 03:45 Pain Level 5 12/11/20 03:45 Comment 12/11/20 03:45
[2020-12-11] MEDS: Acetaminophen 500 MG TAB 1000 MG PO (04:02)
[2020-12-11] MEDS: Metoclopramide 10 MG TAB PO (04:03)
[2020-12-11 04:12] LABS: *AMPHETAMINES SCREEN URINE Negative (Negative); *BARBITURATES SCREEN URINE Negative (Negative); *BENZODIAZEPINES SCREEN URINE Negative (Negative); Cannabinoids THC Positive (Negative); Cocaine Screen,Urine Positive (Negative); METHADONE URINE SCREEN Positive (Negative); OPIATES URINE SCREEN Negative (Negative)
[2020-12-11 04:13] LABS: Tricyclic Antidepressants Negative (Negative)
--- NOTE | 2020-12-11 04:26 | DI.VRAD_ITS ---
PROCEDURE INFORMATION: Exam: CT Head Without Contrast Exam date and time: 12/11/2020 3:55 AM Age: 30 years old Clinical indication: Pain; Headache not specified TECHNIQUE: Imaging protocol: Computed tomography of the head without contrast. Radiation optimization: All CT scans at this facility use at least one of these dose optimization techniques: automated exposure control; mA and/or kV adjustment per patient size (includes targeted exams where dose is matched to clinical indication); or iterative reconstruction. COMPARISON: CT HEAD WO 05/28/2019 7:39 AM FINDINGS: Brain: No hemorrhage. Unremarkable white matter. No mass effect. Low-lying cerebellar tonsils which may be positional, grossly stable Cerebral ventricles: No ventriculomegaly. Bones/joints: Unremarkable. No acute fracture. Paranasal sinuses: Minimal fluid level/secretions in the posterior right ethmoid air cells Mastoid air cells: Visualized mastoid air cells are well aerated. Soft tissues: Unremarkable. IMPRESSION: No acute intracranial abnormality. Low-lying cerebellar tonsils which may be positional, grossly stable in appearance. Correlate for occipital headaches Minimal fluid level versus secretions in the posterior right ethmoid air cells Dictated and Authenticated by: Chito Maldonado MD. Ordering:ARTHUR Cordero MD
--- NOTE | 2020-12-11 04:30 | NUR.NOTE ---
Nursing Note: Pt resting eyes closed, non labored respirations . To be awaken at 0500 to call for ride home.
--- NOTE | 2020-12-11 05:31 | NUR.NOTE ---
Nursing Note: Pt unable to get ahold of anyone for ride. RCT called, awaiting time for scrap picker.Pt aware and lays back in her bed. rails x 2 , lights dimmedfor pt comfort.
== END 2020-12-11 05:56 | disposition home or self-care (01) ==
PROVIDERS: Emergency Provider Emergency Medicine; PCP Family Medicine
DX: R11.0 Nausea (principal); R51.9 Headache, unspecified; F41.0 Panic disorder [episodic paroxysmal anxiety]; T40.7X5A Adverse effect of cannabis (derivatives), initial encounter; F12.10 Cannabis abuse, uncomplicated
CPT/HCPCS: 80307; 81025; 96374; 99284; 70450; 99285

== ENCOUNTER 2020-12-19 07:05 | Emergency (ER) | payer MEDICAID, SELFPAY ==
[2020-12-19] VITALS (31 sets, daily range): BP systolic 111–147; BP diastolic 64–100; PULSE 65–97; RESP 10–22; TEMP 36; O2SAT 91–100
--- NOTE | 2020-12-19 07:00 | RT.EKG_ITS ---
APPROVED REPORT Exam: Resting ECG Patient Location: E HR:81 bpm ECG Measurements Heart Rate 81 AXIS AZ 224 P 41 QRSd 103 QRS 90 QT 408 T 14 QTc 474 Conclusion Sinus rhythm. Prolonged AZ interval. Left atrial enlargement.
--- NOTE | 2020-12-19 07:48 | ED.GENADUL_ITS ---
Discharge Plan Disposition Patient Disposition: HOME Condition: Improving Discharge Details Clinical Impression: Bronchitis Primary Care Provider: Timothy Bliss ED Provider: Joe Parker Home Meds and New Rx's Prescriptions: New doxycycline hyclate 100 mg capsule 100 mg PO BID 10 Days Qty: 20 RF: 0 benzonatate [Tessalon Perles] 100 mg capsule 100 mg PO BID PRNQty: 14 RF: 0 Continued gabapentin 300 mg Capsule 800 mg PO TID RF: 0 methadone 10 MG/ML concentrate 105 mg PO DAILY RF: 0 dexmethylphenidate [Focalin XR] 35 mg capsule,ER biphasic 50-50 35 mg PO DAILY RF: 0 Discharge Instructions Instructions: Acute Bronchitis (ED) Additional Instructions: Take medications as prescribed. May use the provided albuterol inhaler 1 to 2 puffs every 2-4 hours as needed. Return if you feel your breathing requires more use of the inhaler. Continue your regular medications. Home to rest today. Return to ER for any acute concerns. Follow-up with your regular doctor if not improved in 5 to 7 days time Medical Decision Making 30-year-old female presents from home with days of cough, congestion, production of sputum, postnasal drip that has been associated with a headache, body ache. Her mother has had a similar illness. She has had no significant shortness of breath. Past medical history is notable for bovine valve replacement for endocarditis. Took her morning methadone. She is afebrile, slightly hypertensive, interactive with a 100% sat on room air. She is having paroxysms of cough that do have some associated end expiratory wheeze. She continues to smoke but has been having difficulty tolerating any cigarettes during this illness. IV access established, screening labs obtained, patient given fluid bolus, ketorolac, referred for DuoNeb updraft, chest x-ray, and screening Covid test. Chest x-ray without acute pulmonary findings. Laboratory: White count 6, hematocrit 39, platelets 318. Chemistries reassuring. Covid test pending. Patient improved with fluids and medications. I am concerned she may have a sinus infection and we will continue to exclude Covid and she will self isolate. We will place her on doxycycline. Will offer Tessalon Perles and albuterol inhaler for home to be used as needed. She understands indications to seek reevaluation. HPI General Mode of arrival: ambulatory . Date/Time Provider Initiated Documentation: 12/19/20 07:29 . Limitations to Documentation: no limitations . Information obtained by: patient . History of Present Illness 30 year old F presents to the emergency department with the chief complaint of Cough, congestion, subjective fever, described as moderate, Quality is described as dull, and is localized to the chest. Patient reports no radiation. Patient started experiencing this day(s) and it has been constant. No relieving factors improve symptom(s), No exacerbating factors reported . Patient notes cough, fever/chills, headaches, loss of appetite and malaise; denies shortness of breath and syncope. Patient did receive the following treatments prior to arrival, none Related Data Home Medications Medication Instructions Recorded Confirmed gabapentin 800 mg PO TID 01/05/19 12/19/20 methadone 105 mg PO DAILY 01/05/19 12/19/20 dexmethylphenidate [Focalin XR] 35 mg PO DAILY 04/10/20 12/19/20 benzonatate [Tessalon Perles] 100 mg PO BID PRN #14 cap 12/19/20 doxycycline hyclate 100 mg PO BID 10 Days #20 cap 12/19/20 Previous Rx's Medication Instructions Recorded benzonatate [Tessalon Perles] 100 mg PO BID PRN #14 cap 12/19/20 doxycycline hyclate 100 mg PO BID 10 Days #20 cap 12/19/20 Allergies Allergy/AdvReac Type Severity Reaction Status Date / Time No Known Allergies Allergy Unverified 12/19/20 07:16 General Stated Complaint: RespSymp PATRICIA: 2 Review of Systems Narrative: Positive sick contact in the home. No vomiting. No change to taste or smell. Sinus pressure and drainage, cough with production of sputum. 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 Pleasant, well groomed, interactive. Coughing HEAD: Normocephalic, atraumatic ENT: Mucous membranes moist, oropharynx edentulous, External ear exam unremarkable EYES: PERRL, EOMI NECK: Full ROM, no DANA, no menigismus CHEST/RESP: Nontender, clear to auscultation bilateral predominantly with some end expiratory wheeze after cough paroxysm CARDIOVASCULAR: RRR, no murmur, rub esme. 2+ Rad pulse bilateral ABDOMEN: Soft, nontender, no mass. +Bowel sounds EXT: Full ROM, no edema, no rash Neuro: Grossly normal neurologic exam, conversant, interactive. Psych: Speech fluent, thoughts congruent, affect normal Course Vital Signs Vital signs: Vital Signs Temperature 36 C L 12/19/20 07:14 Pulse 89 12/19/20 07:14 Respiratory Rate 22 12/19/20 07:14 Blood Pressure 147/100 H 12/19/20 07:14 Pulse Oximetry 100 12/19/20 07:14 Temperature 36 C L 12/19/20 07:14 Temperature Source Temporal Artery Scan 12/19/20 07:14 Pulse 89 12/19/20 07:14 Respiratory Rate 22 12/19/20 07:14 Respiratory Effort 12/19/20 07:29 Respiratory Depth Normal 12/19/20 07:29 Blood Pressure 147/100 H 12/19/20 07:14 Pulse Oximetry 100 12/19/20 07:14 Oxygen Delivery Method Room Air 12/19/20 07:14 Oxygen Flow Rate 0 12/19/20 07:14 Lab/Test Results Lab/Test Results: 12/19/20 07:22 Pharynx Streptococcus Screen ([facility]) - Pending
[2020-12-19] MEDS: Benzonatate 100 MG CAP 200 MG PO (07:51)
[2020-12-19] MEDS: Albuterol/Ipratropium 3 ML UPD VIAL UPD (07:54)
--- NOTE | 2020-12-19 08:40 | DI.RAD_ITS ---
EXAM: XR PORTABLE CHEST AP CLINICAL HISTORY: cough, wheeze. TECHNIQUE: 2D digital imaging was performed. COMPARISON: CR,XR XR CHEST 2V PA LATERAL from 09/17/2020 FINDINGS: Heart size is normal. Sternotomy wires are again noted. The mediastinum is not widened. Lungs are clear. No infiltrates nor obvious pleural effusions. IMPRESSION: No acute pulmonary findings on this single AP portable view of the chest.Sternotomy wires again noted . No pulmonary edema. DATA REPOSITORY: RADIATION DOSE DELIVERED: All CT scans at this facility use at least one of these dose optimization techniques: automated exposure control; mA and/or kV adjustment per patient size (includes targeted e xams where dose is matched to clinical indication); or iterative reconstruction.
[2020-12-19] MEDS: Normal Saline 1,000 ML 1000 ML IV (08:58)
[2020-12-19] MEDS: Ketorolac 15 MG/ML VIAL IVP (08:58)
[2020-12-19] MEDS: Dexamethasone 4 MG/ML VIAL IVP (08:59)
[2020-12-19 09:16] LABS: Abs Immature Grans 0.03 10^3/uL (0.0-0.06); Absolute Basophil Count 0.03 10^3/uL (0.0-0.2); Absolute Eosinophil Count 0.25 10^3/uL (0.0-0.7); Absolute Lymphocyte Count 1.42 10^3/uL (1.2-3.4); Absolute Monocyte Count 0.42 10^3/uL (0.1-0.8); Absolute Neutrophil Count 4.69 10^3/uL (1.2-6.7); Basophils % 0.4; Eosinophils % 3.7; HCT 39.7 % (36.0-46.0); HGB 12.9 g/dL (11.2-15.7); Immature Grans % 0.4; Lymphocytes % 20.8; MCHC 32.5 % (32.0-36.0); MCV 86.3 fL (80-95); MPV 10.6 fL (8.0-11.0); Monocytes % 6.1; Neutrophils % 68.6; Nucleated RBC 0 %; Platelet Count 318 10^3/uL (130-400); RDW 14.9 % (11.7-14.6); RDW-SD 46.8 fL; WBC 6.84 10^3/uL (4.4-10.8)
[2020-12-19 09:27] LABS: ALT 21 U/L (14-59); AST 17 U/L (15-37); Albumin 3.8 g/dL (3.4-5.0); Alkaline Phosphatase 90 U/L (46-116); Anion Gap 7.5 mmol/L (3-11); BUN 10 mg/dL (7-18); Bilirubin, Total 0.5 mg/dL (0.2-1.0); CO2 30.5 mmol/L (21.0-32.0); CREATININE 0.8 mg/dL (0.55-1.02); Calcium 9.2 mg/dL (8.5-10.1); Chloride 103 mmol/L (98-107); Glucose 100 mg/dL (74-106); Potassium 3.8 mmol/L (3.5-5.1); Sodium 141 mmol/L (136-145); Total Protein 8.1 g/dL (6.4-8.2)
[2020-12-19] MEDS: Albuterol HFA 8 GM 60 PUFF INH IH (10:39)
[2020-12-19] MEDS: Doxycycline Hyclate 100 MG CAP PO (10:40)
[2020-12-20 13:31] LABS: COVID-19 RT-PCR UVMMC Result Negative (Negative)
--- NOTE | 2020-12-20 17:55 | NUR.NOTE ---
Nursing Note: Pt contacted via phone number on file and notified of negative covid results.
== END 2020-12-19 10:41 | disposition home or self-care (01) ==
PROVIDERS: Emergency Provider Emergency Medicine; PCP Family Medicine
DX: J20.9 Acute bronchitis, unspecified (principal); Z20.822 Contact with and (suspected) exposure to COVID-19
CPT/HCPCS: 80053; 87880; 93005; 94640; 96361; 96374; 96375; 99284; U0003; 71045; 85025; 87081; 93010; 99283; J1100; J1885; J7620

== ENCOUNTER 2020-12-29 07:58 | Emergency (ER) | payer MEDICAID, SELFPAY ==
[2020-12-29] VITALS (12 sets, daily range): BP systolic 98–118; BP diastolic 73–84; PULSE 73–101; RESP 8–26; TEMP 36.3; O2SAT 95–100
--- NOTE | 2020-12-29 08:15 | DI.RAD_ITS ---
EXAM: XR CHEST 2V PA LATERAL CLINICAL HISTORY: cough, sob, r/o pneumonia. TECHNIQUE: 2D digital imaging was performed. COMPARISON: CR XR PORTABLE CHEST AP from 12/19/2020 FINDINGS: Compared to 12/19/2020. Sternotomy wires are again noted. Heart size is normal. The mediastinum is not widened. Lungs are clear. No infiltrates nor pleural effusions. IMPRESSION: No acute pulmonary findings.No significant change compared to December 19, 2020. DATA REPOSITORY: RADIATION DOSE DELIVERED:
--- NOTE | 2020-12-29 08:21 | W.ED.GENAD ---
Discharge Plan Disposition Patient Disposition: HOME Condition: Good Discharge Details Clinical Impression: Bronchitis, Reactive airway disease Primary Care Provider: Timothy Bliss ED Provider: Arie Verduzco Home Meds and New Rx's Prescriptions: New prednisone 50 MG tablet 50 mg PO DAILY Qty: 5 RF: 0 levofloxacin 750 mg tablet 750 mg PO DAILY Qty: 10 RF: 0 Continued gabapentin 300 mg Capsule 800 mg PO TID RF: 0 methadone 10 MG/ML concentrate 105 mg PO DAILY RF: 0 dexmethylphenidate [Focalin XR] 35 mg capsule,ER biphasic 50-50 35 mg PO DAILY RF: 0 benzonatate [Tessalon Perles] 100 mg capsule 100 mg PO BID PRNQty: 14 RF: 0 Discharge Instructions Instructions: Acute Bronchitis (ED), Reactive Airways Disease (ED) Additional Instructions: At this time your x-ray is reassuring and shows no evidence of severe disease. I suspect that there still is bronchitis with a very mild pneumonia. We will transition your antibiotic therapy to Levaquin. Please stop taking the doxycycline. Please take the Levaquin as prescribed. Please also take the prednisone steroid as prescribed. The scripts have been transmitted to your pharmacy. Please go to the methadone clinic today to receive your daily dose. The clinic has not closed and is still open for the day. Please continue taking your inhaler. If you notice any worsening of your symptoms, or any new symptoms such as vomiting, diarrhea, fever, chills, shortness of breath, chest pain, numbness, weakness, or fainting , please return immediately to the emergency department for reevaluation. Please follow up with your primary care provider as soon as possible for reassessment and reevaluation. As always, it was a pleasure participating in your medical care today. Referrals: Timothy Bliss [Primary Care Provider] - Medical Decision Making This is a 30-year-old female with a past medical history of endocarditis, hepatitis C, bipolar disorder, cholecystectomy, methadone use, presents today for evaluation of cough. About 10 days ago the patient was seen and assessed here, negative chest x-ray and labs at that time, negative Covid test. She was discharged with Tessalon Perles, albuterol inhaler, and doxycycline. The patient has taken the antibiotic and inhaler as directed, but states that her cough persists and she is now having some green sputum. She denies any fever or chills. She denies any significant chest pain. Denies PE risk factors such as recent long car rides, immobilization, recent surgery, prior history of DVT or PE, family history of PE or DVT, morbid obesity, exogenous estrogen and smoking, hemoptysis, history of cancer. No other complaints at this time. Physical exam is notably reassuring. No calf tenderness, no significant wheeze, no rhonchi or significant rales. Vital signs demonstrate normal heart rate normal oxygenation normal respiratory rate normal blood pressure no fever. Exam is reassuring. We will get an x-ray to evaluate for potential infiltrate, give 2 breathing treatments to see if she benefits from symptomatic improvement with this, but otherwise I see no indication for emergent labs at this time. Covid test was negative on her last visit, no indication for retesting at this time as she was symptomatic at that time as well. Will monitor closely and reassess. Will we will reach out to [facility] to see if she can get her methadone dose today. At this time symptoms are clinically inconsistent with ACS or significant cardiac pathology, life-threatening PE, or dissection, or sepsis. 9:20 AM Patient's x-ray has returned no evidence of large pneumonia, vital signs remained stable. Patient refused to take the updrafts that were offered here. We will give Levaquin and prednisone for home use. Patient will be discharged home. In regards to her methadone dosing did recommend that the patient continue to follow-up with her outpatient protocol for part and that dosing here in the emergency department was not in the patient or her pain care management systems best interest. Recommend that she continue to utilize her well-established outpatient guidelines and pathways for continued methadone use on an outpatient basis at her clinic. I have extensively reviewed the treatment plan and discharge instructions with the patient. I have addressed all patient concerns at this time. The patient was made aware of what symptoms to monitor for that would warrant a return to the emergency department. Discussed the plan with the patient, they demonstrate verbal understanding and agreement with our assessment and plan at this time. The documentation in this chart was dictated using [employer] dictation software. Please excuse any dictation errors. FINDINGS: Lungs: Hyperinflation , interstitial prominence, and trace right basilar airspace disease. Pleural spaces: No pleural effusion. Heart/Mediastinum: Normal configuration of the heart. Bones/joints: Median sternotomy. IMPRESSION: Hyperinflation , interstitial prominence, and trace right basilar airspace disease. Thank you for allowing us to participate in the care of your patient. Dictated and Authenticated by: Jg Ying MD 12/29/2020 9:14 AM Eastern Time ([place] & [place]) HPI General Date/Time Provider Initiated Documentation: 12/29/20 08:10. HPI Narrative: This is a 30-year-old female with a past medical history of endocarditis, hepatitis C, bipolar disorder, cholecystectomy, methadone use, presents today for evaluation of cough. About 10 days ago the patient was seen and assessed here, negative chest x-ray and labs at that time, negative Covid test. She was discharged with Tessalon Perles, albuterol inhaler, and doxycycline. The patient has taken the antibiotic and inhaler as directed, but states that her cough persists and she is now having some green sputum. She denies any fever or chills. She denies any significant chest pain. Denies PE risk factors such as recent long car rides, immobilization, recent surgery, prior history of DVT or PE, family history of PE or DVT, morbid obesity, exogenous estrogen and smoking, hemoptysis, history of cancer. No other complaints at this time. Related Data Home Medications Medication Instructions Recorded Confirmed gabapentin 800 mg PO TID 01/05/19 12/29/20 methadone 105 mg PO DAILY 01/05/19 12/29/20 dexmethylphenidate [Focalin XR] 35 mg PO DAILY 04/10/20 12/29/20 benzonatate [Tessalon Perles] 100 mg PO BID PRN #14 cap 12/19/20 12/29/20 levofloxacin 750 mg PO DAILY #10 tab 12/29/20 prednisone 50 mg PO DAILY #5 tab 12/29/20 Previous Rx's Medication Instructions Recorded benzonatate [Tessalon Perles] 100 mg PO BID PRN #14 cap 12/19/20 levofloxacin 750 mg PO DAILY #10 tab 12/29/20 prednisone 50 mg PO DAILY #5 tab 12/29/20 Allergies Allergy/AdvReac Type Severity Reaction Status Date / Time No Known Allergies Allergy Unverified 12/29/20 08:13 General Stated Complaint: RespSymp PATRICIA: 3 Review of Systems All systems reviewed & are unremarkable except as noted in HPI and below [facility] Medical History (Updated 12/29/20 @ 09:16 by Arie Verduzco DO) Anxiety Bipolar disorder Endocarditis GERD (gastroesophageal reflux disease) Hepatitis C Obesity Surgical History History of heart valve replacement Social History Smoking/Tobacco Use Status: Current every day Tobacco Type: cigarettes Smoking risk assessment performed?: Yes Alcohol Intake: never Drug use: Daily Substance use type: 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 3.ENT: Atraumatic external nose and ears. Moist MM. Neck: Symmetric, trachea midline, No thyromegaly. 4.CVS: +S1/S2, No murmurs or gallops. Peripheral pulses 2+ and equal in all extremities. Brisk capillary refill in all extremities. 5.RESP: Unlabored respiratory effort. Clear to auscultation bilaterally. No wheezes rales or rhonchi 6.GI: Soft, Nontender/Nondistended, No hepatosplenomegaly. No guarding or rebound. 7.MSK: Normocephalic/Atraumatic, Extremities w/o deformity or ttp No cyanosis or clubbing, Normal movement of all extremities 8.Skin: Warm, Dry. No rashes or lesions. 9.Neuro: management nurse rn II-XII grossly intact. Sensation grossly intact, no focal neurologic deficits. 10.Psych: (AAO) x3. Appropriate mood and affect Course Vital Signs Vital signs: Vital Signs Temperature 36.3 C L 12/29/20 08:10 Pulse 86 12/29/20 08:10 Respiratory Rate 17 12/29/20 08:10 Blood Pressure 116/73 12/29/20 08:10 Pulse Oximetry 96 12/29/20 08:10 Temperature 36.3 C L 12/29/20 08:10 Temperature Source Skin 12/29/20 08:10 Pulse 86 12/29/20 08:10 Respiratory Rate 17 12/29/20 08:10 Blood Pressure 116/73 12/29/20 08:10 Blood Pressure Position Sitting 12/29/20 08:10 Pulse Oximetry 96 12/29/20 08:10 Oxygen Delivery Method Room Air 12/29/20 08:10 Oxygen Flow Rate 0 12/29/20 08:10 Pain Level 8 12/29/20 08:10
[2020-12-29] MEDS: Albuterol/Ipratropium 3 ML UPD VIAL 6 ML UPD (08:44)
--- NOTE | 2020-12-29 09:14 | DI.VRAD_ITS ---
PROCEDURE INFORMATION: Exam: XR Chest Exam date and time: 12/29/2020 8:17 AM Age: 30 years old Clinical indication: Other: Cough/sob, R/O pneumonia TECHNIQUE: Imaging protocol: XR of the chest. Views: 2 views. COMPARISON: CR XR PORTABLE CHEST AP 12/19/2020 8:34 AM FINDINGS: Lungs: Hyperinflation , interstitial prominence, and trace right basilar airspace disease. Pleural spaces: No pleural effusion. Heart/Mediastinum: Normal configuration of the heart. Bones/joints: Median sternotomy. IMPRESSION: Hyperinflation , interstitial prominence, and trace right basilar airspace disease. Dictated and Authenticated by: Jg Ying MD. Ordering:GRICEL Sargent MD
== END 2020-12-29 09:21 | disposition home or self-care (01) ==
LOC: ER 19:25
PROVIDERS: Emergency Provider Student in an Organized Health Care Education/Training Program; PCP Family Medicine
DX: J20.9 Acute bronchitis, unspecified (principal); J45.909 Unspecified asthma, uncomplicated
CPT/HCPCS: 99283; 71046; J7620

== ENCOUNTER 2021-02-01 07:26 | Emergency (ER) | payer MEDICAID, SELFPAY ==
[2021-02-01] VITALS (11 sets, daily range): BP systolic 98–129; BP diastolic 75–94; PULSE 60–96; RESP 16–22; TEMP 36.5; O2SAT 96–100
--- NOTE | 2021-02-01 07:30 | RT.EKG_ITS ---
APPROVED REPORT Exam: Resting ECG Reason for Exam: numbness left arm Patient Location: E HR:70 bpm ECG Measurements Heart Rate 70 AXIS ME 252 P 53 QRSd 105 QRS 91 QT 418 T 27 QTc 452 Conclusion Sinus rhythm...normal P axis, V-rate 60- 99 Prolonged ME interval...ME >210, V-rate 50- 90. No STEMI. No change from previous. I have reviewed and interpreted ECG and agree with software generated interpretation.
--- NOTE | 2021-02-01 07:54 | ED.GENADUL_ITS ---
Discharge Plan Disposition Patient Disposition: OTHER Condition: Poor Discharge Details Clinical Impression: Anxiety, Arm numbness left, Cough Primary Care Provider: Timothy Bliss ED Provider: Merary Foreman Home Meds and New Rx's Prescriptions: No Action gabapentin 300 mg Capsule 800 mg PO TID RF: 0 methadone 10 MG/ML concentrate 105 mg PO DAILY RF: 0 dexmethylphenidate [Focalin XR] 35 mg capsule,ER biphasic 50-50 35 mg PO DAILY RF: 0 Discharge Data Discharge Date/Time-TO BE ENTERED AT DEPARTURE: 02/01/21 08:53 Medical Decision Making Patient is a 30-year-old female brought in via EMS with multiple complaints. She reports that she has had intermittent cough for the past 2 months. Was seen here in December for the same. At that time, patient was treated for bronchitis. Was given doxycycline, Tessalon Perles, prednisone and levofloxacin over 2 separate visits. She states that despite this she had waxing and waning symptoms. States that she can intermittently feel short of breath with this, is not currently endorsing any shortness of breath. No chest pain. Reports that she is also recently developed a sore throat. No difficulty swallowing. Denies any fevers or chills. Patient reports that 3 days ago she fell off the wagon and use crack cocaine. States the following morning she woke up in the left arm is numb. Reports that she smokes the drugs, denies injecting any substances. Denies any trauma. Denies any headache. No other deficit have been noted. Reports that she has been lethargic and fatigued. States that she has not fully hurt her self. States that recently she is just been sitting around watching TV. She also is requesting to speak with mental health. Denies suicidality but reports I am tired of feeling like this. Has no plan to harm herself. Has no homicidal ideations. Is also concerned that she is going to be missing her dosing of methadone today as well as her dose for tomorrow. On exam, patient appears very anxious. She is hearing, speaking quickly and loudly. Lungs are clear, normal cardiac exam. Abdomen is soft and nontender. Patient denies currently being nauseated. No vomiting or diarrhea today. Neurologic exam is intact. Sharp dull testing is intact on the left upper extremity. I do not appreciate any weakness compared to the contralateral side. No rash. No swelling. 2+ distal pulses with intact capillary refill. Axillary nerve is intact. No lymphadenopathy. No weakness noted in remaining extremities, cranial nerves intact. Differential at this time is quite broad. I am concerned regarding the patient's subjective numbness in her arm. It is relieving that her neurologic exam's are reassuring. However, I do feel that imaging would be appropriate. Patient does have past medical history significant for endocarditis, IVDU, hepatitis C, GERD, bipolar, anxiety. Patient is on methadone, will dose for now so she does not have any withdrawal. I did clarify dosing with [facility] clinic. Vital signs are stable. Patient is tolerating p.o. intake well. Will obtain baseline labs and imaging. Nursing staff and multiple times to obtain IV access. Unable to do so. We'll have her continue to orally hydrate, use labs that were obtained and reevaluate. EKG reviewed by Dr. Kaufman. Patient is in sinus rhythm with no acute ischemic changes noted Mental health was contacted. She was able to speak with the patient. She does not believe that the patient is an imminent risk to herself. Patient reports mental health that she was supposed to go to the care bed. However, mental health reports that she is not currently in her system but was previously supposed to have had an intake which appears to not have been completed. Patient did not want to have further assistance with mental health today. Mental health did offer further evaluation declined. She denied suicidality at this time. Mental health does not feel that she is an imminent threat to herself or others. Plan to continue on medical work-up and then discussed reevaluation with mental health with the patient once again. Hoping that she will be able to get the continued care with mental health that she likely needs Labs reviewed. No leukocytosis. Stable H&H. CMP is significant for creatinine of 1.1. Troponin within normal limits. No electrolyte abnormalities. D-dimer still pending. Imaging pending Have asked the patient for urine to obtain testing. Patient eloped when she got up to use the restroom. Patient did demonstrate capacity. She was not an imminent threat to herself or others. She did not appear to be any distress. She was not an imminent threat to herself or others. Patient was made aware that she may return anytime for continued care Contacted [facility] as the patient has been wanting to go there to receive dosing for tomorrow. Patient was actively at their facility. Let them know that she received the dosing of methadone for today. HPI General Mode of arrival: EMS . Date/Time Provider Initiated Documentation: 02/01/21 07:53 . Limitations to Documentation: no limitations . Information obtained by: patient, RN/MD, EMS, RN notes reviewed and old records reviewed . History of Present Illness 30 year old F presents to the emergency department with the chief complaint of N/V/D, sorethroat, cough, left arm numbness, described as moderate, Quality is described as other (numbness), and is localized to the left and upper extremity. Patient reports no radiation. Patient started experiencing this day(s) (numbness began 2 days ago, other symptoms have been ongoing for months) and it has been constant (arm symptoms are constant), intermittent (cough, N/V/D intermitent) and now res olved (not currently endorsing nausea). No relieving factors improve symptom(s), No exacerbating factors reported . Patient notes cough and nausea/vomiting; denies chest pain, diaphoresis, fever/chills, headaches, loss of appetite, rash, shortness of breath and weakness. Patient did receive the following treatments prior to arrival, none Related Data Home Medications Medication Instructions Recorded Confirmed gabapentin 800 mg PO TID 01/05/19 02/01/21 methadone 105 mg PO DAILY 01/05/19 02/01/21 dexmethylphenidate [Focalin XR] 35 mg PO DAILY 04/10/20 02/01/21 Allergies Allergy/AdvReac Type Severity Reaction Status Date / Time No Known Allergies Allergy Unverified 02/01/21 07:48 General Stated Complaint: GenMedical PATRICIA: 3 Review of Systems Constitutional Constitutional: Reports as per HPI, Denies chills, Reports fatigue, Denies fever(s), Denies frequent falls, Denies headache(s), Denies snoring and Denies weakness Eyes Eyes: Reports as per HPI, Denies blurry vision and Denies change in vision ENT Ears, Nose, Mouth, and Throat: Denies vertigo, Denies headache(s), Denies neck pain, Denies disequilibrium, Denies sinus pressure, Reports sore throat and Denies throat swelling Cardiovascular Cardiovascular: Reports as per HPI, Denies chest pain, Denies lightheadedness, Denies radiating jaw, neck or arm pain, Denies dyspnea and Denies dyspnea on exertion Respiratory Respiratory: Reports as per HPI, Denies chest congestion, Reports cough, Denies pain on inspiration, Denies pain with cough, Denies dyspnea, Denies dyspnea on exertion, Denies snoring, Denies stridor and Denies wheezing Gastrointestinal Gastrointestinal: Reports as per HPI, Denies abdominal pain, Reports change in bowel habits (reports taht she rotates between watery diarrhea and constipat ion), Reports nausea and Denies vomiting Musculoskeletal Musculoskeletal: Reports as per HPI, Denies back pain, Denies myalgias, Denies muscle cramps, Denies neck pain and Denies numbness Integumentary/Breasts Skin/Breast: Reports as per HPI and Denies rash Neurologic Neurologic: Reports as per HPI, Denies abnormal movements, Denies abnormal speech, Denies behavioral changes, Denies confusion, Denies vertigo, Denies frequent falls, Denies headache(s), Denies localized weakness, Denies numbness, Denies radicular pain, Denies sensory deficit, Reports paresthesias, Denies disequilibrium and Denies weakness Psychiatric Psychiatric: Denies behavioral changes and Denies confusion Endocrine Endocrine: Reports fatigue Allergic/Immunologic Allergic/Immunologic: Denies throat swelling and Denies wheezing [facility] Medical History (Updated 02/01/21 @ 10:03 by FISH Fortune) Anxiety Bipolar disorder Endocarditis GERD (gastroesophageal reflux disease) Hepatitis C Obesity Surgical History History of heart valve replacement Social History Smoking/Tobacco Use Status: Current every day Tobacco Type: cigarettes Smoking risk assessment performed?: Yes Alcohol Intake: never Drug use: Daily Substance use type: marijuana and crack/cocaine 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--last crack 3 days ago Do you feel safe at home: Yes Do you feel safe in your relationship?: Yes Exam Const General: cooperative, healthy appearing, comfortable, no acute distress, well developed and anxious (crying, speaking very loudly) Nutritional Appearance: well nourished and overweight Orientation: alert and awake [facility] Head: normal to inspection, no palpable skull fracture, normocephalic and atraumatic Ears: hearing grossly normal bilaterally, external ears normal and TM's normal bilaterally General nose exam: external nose normal Mouth: oral mucosae normal and moist mucous membranes Throat: posterior oropharynx normal, tonsils normal and uvula midline Eyes General: appearance normal, both eyes and all related structures Alignment and Position: alignment normal Periorbital: periorbital findings normal Eyelids: eyelids normal Sclera: sclerae normal Cornea: corneas normal Pupils: PERRL EOM: EOM intact bilaterally Neck Neck: normal visual inspection, full ROM, no lymphadenopathy and no meningeal si gns Resp Effort & Inspection: normal respiratory effort, able to speak in complete sentences and no respiratory distress Auscultation: clear to auscultation bilaterally, no rales, no rhonchi and no wheezes Cardio Rate: regular rate Rhythm: regular rhythm Heart Sounds: S1 normal and S2 normal GI Inspection: normal to inspection and non-distended Palpation: soft, no hepatosplenomegaly, not firm, no guarding, not rigid and nontender Percussion: normal to percussion Auscultation: normal bowel sounds Back/Spine/Pelvis Cervical Spine: normal cervical lordosis, cervical ROM normal, No cervical spinal tenderness and No cervical ROM abnormal Skin General skin exam: no rashes or lesions noted Neuro General: patient alert, patient awake and patient oriented x3 Cranial Nerves: CN's II-XI intact bilaterally Cognition: normal cognition Speech: speech normal Gait: normal gait Motor: muscle tone normal throughout, strength 5/5 throughout, no pronator drift, no movement abnormalities noted and no fasciculations Sensory Exam: no sensory deficits noted (sharp/dull intact in LUE) Coordination: [id number] test normal and [id number] test normal Extrem General: normal to inspection, capillary refill normal, no pedal edema and no calf tenderness Psych Appearance: grossly normal and well kempt Mental Status: mental status grossly normal Speech and Movement: speech and movement normal Course Vital Signs Vital signs: Vital Signs Temperature 36.5 C 02/01/21 07:28 Pulse 80 02/01/21 07:28 Respiratory Rate 18 02/01/21 07:28 Blood Pressure 125/86 02/01/21 07:28 Pulse Oximetry 100 02/01/21 07:28 Temperature 36.5 C 02/01/21 07:28 Temperature Source Temporal Artery Scan 02/01/21 07:28 Pulse 80 02/01/21 07:28 Respiratory Rate 18 02/01/21 07:28 Respiratory Effort Non-Labored 02/01/21 07:38 Blood Pressure 125/86 02/01/21 07:28 Blood Pressure Position Supine 02/01/21 07:28 Pulse Oximetry 100 02/01/21 07:28 Oxygen Delivery Method Room Air 02/01/21 07:28 Oxygen Flow Rate 0 02/01/21 07:28 Pain Level 8 02/01/21 07:28 Lab/Test Results Lab/Test Results: 02/01/21 07:47 Pharynx Group A Streptococcus Culture - Pending POC Strep Test-SUSY(Rapid) Start: 02/01/21 07:46 Freq: .Rapid Strep Test Status: Active Protocol: Document 02/01/21 07:48 MCG (Rec: 02/01/21 07:48 MCG [id number]) Strep test-SUSY(Rapid)-POC POC-Strep test-SUSY (Rapid) Negative POC-Strep test-SUSY (Rapid) Negative
[2021-02-01 08:12] LABS: Abs Immature Grans 0.01 10^3/uL (0.0-0.06); Absolute Basophil Count 0.05 10^3/uL (0.0-0.2); Absolute Eosinophil Count 0.21 10^3/uL (0.0-0.7); Absolute Lymphocyte Count 2.16 10^3/uL (1.2-3.4); Absolute Monocyte Count 0.35 10^3/uL (0.1-0.8); Absolute Neutrophil Count 2.83 10^3/uL (1.2-6.7); Basophils % 0.9; Eosinophils % 3.7; HCT 39.2 % (36.0-46.0); HGB 12.7 g/dL (11.2-15.7); Immature Grans % 0.2; Lymphocytes % 38.5; MCH 27.9 pg (27.0-33.0); MCHC 32.4 % (32.0-36.0); MPV 10.7 fL (8.0-11.0); Monocytes % 6.2; Neutrophils % 50.5; Nucleated RBC 0 %; Platelet Count 249 10^3/uL (130-400); RBC 4.56 10^6/uL (3.93-5.22); RDW 15.2 % (11.7-14.6); RDW-SD 47.7 fL; WBC 5.61 10^3/uL (4.4-10.8)
[2021-02-01 08:26] LABS: ALT 17 U/L (14-59); AST 17 U/L (15-37); Albumin 3.4 g/dL (3.4-5.0); Alkaline Phosphatase 90 U/L (46-116); Anion Gap 6.9 mmol/L (3-11); BUN 8 mg/dL (7-18); Bilirubin, Total 0.4 mg/dL (0.2-1.0); CO2 29.1 mmol/L (21.0-32.0); CREATININE 1.1 mg/dL (0.55-1.02); Calcium 8.7 mg/dL (8.5-10.1); Chloride 107 mmol/L (98-107); Estimated GFR 57.93 (mL/min/1.73m2); Glucose 91 mg/dL (74-106); Magnesium 1.8 mg/dL (1.8-2.4); Potassium 3.6 mmol/L (3.5-5.1); Sodium 143 mmol/L (136-145); Total Protein 7.4 g/dL (6.4-8.2); Troponin I < 0.05 ng/mL (<0.06)
[2021-02-01] MEDS: Methadone Liquid 10 MG/ML 100 MG PO (08:47)
[2021-02-01] MEDS: Normal Saline Flush 10 ML SYR IVP (08:48)
[2021-02-01] MEDS: Methadone Liquid 10 MG/ML 5 MG PO (08:48)
[2021-02-01 08:49] LABS: D-Dimer 3713 ng/mlFEU (<500)
--- NOTE | 2021-02-01 09:18 | NUR.NOTE ---
urine need for test before going to xray and CT. unable to pee. given water. pt did not drink much water. also, mental health spoke to pt via zoom. pt was done talking to mental health-found tablet on her bedside tray,pt crying that she kept repeating the same things over and over-no one is helping or listening to her. mental health told me that PT was done with her.Nursing Note:
--- NOTE | 2021-02-01 09:31 | NUR.NOTE ---
tried to start IV x3 with ultrasound. unable. pt screaming at me while doing it. unable to advance catheterx2-blood obtained for labs. the first time she told me to take it out because it hurt.Nursing Note:
== END 2021-02-01 08:53 | disposition other institution (70) ==
LOC: ER 08:48
PROVIDERS: Emergency Provider Physician Assistant; PCP Family Medicine
DX: F41.9 Anxiety disorder, unspecified (principal); R20.2 Paresthesia of skin; R05 Cough; Z53.29 Procedure and treatment not carried out because of patient's decision for other reasons
CPT/HCPCS: 36415; 80053; 87880; 93005; 99283; 83735; 84484; 85025; 85379; 87081; 93010

== ENCOUNTER 2021-03-08 05:16 | Emergency (ER) | payer MEDICAID, SELFPAY ==
[2021-03-08 05:17] VITALS: BP 114/78; PULSE 79; RESP 16; TEMP 36.9; O2SAT 99
--- NOTE | 2021-03-08 05:24 | W.ED.GENAD ---
Discharge Plan Disposition Patient Disposition: HOME Condition: Stable Discharge Details Clinical Impression: Methadone dependence, Noncompliance with medication regimen Primary Care Provider: Timothy Bliss ED Provider: Arie Verduzco Home Meds and New Rx's Prescriptions: Continued gabapentin 300 mg Capsule 800 mg PO TID RF: 0 methadone 10 MG/ML concentrate 105 mg PO DAILY RF: 0 dexmethylphenidate [Focalin XR] 35 mg capsule,ER biphasic 50-50 30 mg PO DAILY RF: 0 Discharge Instructions Additional Instructions: Please go directly to the methadone clinic for your daily methadone dose. Please drink plenty of fluids and rest as your body recovers. If you notice any worsening of your symptoms, or any new symptoms such as vomiting, diarrhea, fever, chills, shortness of breath, chest pain, numbness, weakness, or fainting , please return immediately to the emergency department for reevaluation. Please follow up with your primary care provider as soon as possible for reassessment and reevaluation. As always, it was a pleasure participating in your medical care today. Referrals: Timothy Bliss [Primary Care Provider] - Discharge Data Discharge Date/Time-TO BE ENTERED AT DEPARTURE: 03/08/21 05:40 Medical Decision Making This is a 31-year-old female with a past medical history of endocarditis, hepatitis C, bipolar disorder, cholecystectomy, methadone use, who presents today for methadone withdrawal symptoms. Patient states that for the last 3 days she has not guarding got her daily methadone dose because of inability to procure transport. This morning she had continued aches, nausea, and methadone withdrawal symptoms and so she called EMS. She denies any other complaints. No other modifying factors. Physical exam is unremarkable. Vital signs stable, no fever, no tender abdomen. No abnormal lung sounds. Symptoms inconsistent with pneumonia, sepsis, infection. Exam is otherwise reassuring. Symptoms at this time appear clinically consistent with mild methadone withdrawal. The patient is asking for her daily methadone dose today. The methadone clinic opens in 20 minutes. We did confirm the methadone clinic hours for today. I also discussed with the patient the importance of maintaining her dosing through the methadone clinic especially when there is availability especially when within the next 15-minute. We contacted [facility] in an effort to provide transport to the methadone clinic for the patient, however she refused and left prior to their arrival, stating that she would walk down to the methadone clinic on her own. I have extensively reviewed the treatment plan and discharge instructions with the patient. I have addressed all patient concerns at this time. The patient was made aware of what symptoms to monitor for that would warrant a return to the emergency department. Discussed the plan with the patient, they demonstrate verbal understanding and agreement with our assessment and plan at this time. The documentation in this chart was dictated using [employer] dictation software. Please excuse any dictation errors. HPI General Date/Time Provider Initiated Documentation: 03/08/21 05:20. HPI Narrative: This is a 31-year-old female with a past medical history of endocarditis, hepatitis C, bipolar disorder, cholecystectomy, methadone use, who presents today for methadone withdrawal symptoms. Patient states that for the last 3 days she has not guarding got her daily methadone dose because of inability to procure transport. This morning she had continued aches, nausea, and methadone withdrawal symptoms and so she called EMS. She denies any other complaints. No other modifying factors. Related Data Home Medications Medication Instructions Recorded Confirmed gabapentin 800 mg PO TID 01/05/19 03/08/21 methadone 105 mg PO DAILY 01/05/19 03/08/21 dexmethylphenidate [Focalin XR] 30 mg PO DAILY 04/10/20 03/08/21 Allergies Allergy/AdvReac Type Severity Reaction Status Date / Time No Known Allergies Allergy Unverified 02/01/21 07:48 General Stated Complaint: DrugWithdr/MAT PATRICIA: 4 Review of Systems All systems reviewed & are unremarkable except as noted in HPI and below PFSH Medical History Anxiety Bipolar disorder Endocarditis GERD (gastroesophageal reflux disease) Hepatitis C Obesity Surgical History History of heart valve replacement Social History Smoking/Tobacco Use Status: Current every day Tobacco Type: cigarettes Smoking risk assessment performed?: Yes Alcohol Intake: never Drug use: Daily Substance use type: marijuana and crack/cocaine 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--last crack 3 days ago Do you feel safe at home: Yes Do you feel safe in your relationship?: Yes Exam Narrative Exam Narrative: 1.Const: Well-nourished, Well-developed, appearing stated age 2.Eyes: PERRL, no conjunctival injection, and symmetrical lids. 3.ENT: Atraumatic external nose and ears. Moist MM. Neck: Symmetric, trachea midline, No thyromegaly. 4.CVS: +S1/S2, No murmurs or gallops. Peripheral pulses 2+ and equal in all extremities. Brisk capillary refill in all extremities. 5.RESP: Unlabored respiratory effort. Clear to auscultation bilaterally. No wheezes rales or rhonchi 6.GI: Soft, Nontender/Nondistended, No hepatosplenomegaly. No guarding or rebound. 7.MSK: Normocephalic/Atraumatic, Extremities w/o deformity or ttp No cyanosis or clubbing, Normal movement of all extremities 8.Skin: Warm, Dry. No rashes or lesions. 9.Neuro: container finisher II-XII grossly intact. Sensation grossly intact, no focal neurologic deficits. 10.Psych: (AAO) x3. Appropriate mood and affect Course Vital Signs Vital signs: Vital Signs Temperature 36.9 C 03/08/21 05:17 Pulse 79 03/08/21 05:17 Respiratory Rate 16 03/08/21 05:17 Blood Pressure 114/78 03/08/21 05:17 Pulse Oximetry 99 03/08/21 05:17 Temperature 36.9 C 03/08/21 05:17 Temperature Source Skin 03/08/21 05:17 Pulse 79 03/08/21 05:17 Respiratory Rate 16 03/08/21 05:17 Blood Pressure 114/78 03/08/21 05:17 Blood Pressure Position Supine 03/08/21 05:17 Pulse Oximetry 99 03/08/21 05:17 Oxygen Delivery Method Room Air 03/08/21 05:17 Oxygen Flow Rate 0 03/08/21 05:17
[2021-03-08] MEDS: Ondansetron O.D.T. 4 MG TABEF PO (05:30)
== END 2021-03-08 05:40 | disposition home or self-care (01) ==
LOC: ER 05:40
PROVIDERS: Emergency Provider Student in an Organized Health Care Education/Training Program; PCP Family Medicine
DX: F15.20 Other stimulant dependence, uncomplicated (principal); T40.3X6A Underdosing of methadone, initial encounter; Z91.138 Patient's unintentional underdosing of medication regimen for other reason
CPT/HCPCS: 99283

== ENCOUNTER 2021-04-02 07:26 | Emergency (ER) | payer SELFPAY ==
[2021-04-02 07:31] VITALS: BP 120/73; PULSE 63; RESP 16; TEMP 36.5; O2SAT 99
--- NOTE | 2021-04-02 07:57 | NUR.NOTE ---
0740 left without being seen. said she was walking to methadone clinic to get her dosing.Nursing Note:
== END 2021-04-02 07:44 | disposition left before discharge ==
LOC: ER 07:59
PROVIDERS: PCP Family Medicine
DX: Z53.29 Procedure and treatment not carried out because of patient's decision for other reasons (principal)

== ENCOUNTER 2021-04-13 05:14 | Emergency (ER) | payer MEDICAID, SELFPAY ==
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
[2021-04-13] MEDS: Ketorolac 30 MG/ML VIAL IM (05:37)
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
== END 2021-04-13 06:37 | disposition home or self-care (01) ==
LOC: ER 07:10
PROVIDERS: Emergency Provider Emergency Medicine; PCP Family Medicine
DX: Z53.21 Procedure and treatment not carried out due to patient leaving prior to being seen by health care provider (principal)
CPT/HCPCS: 70450; 70486; J1885

== ENCOUNTER 2021-05-14 08:27 | Emergency (ER) | payer MEDICAID, SELFPAY ==
[2021-05-14] VITALS (23 sets, daily range): BP systolic 95–110; BP diastolic 48–79; PULSE 48–86; RESP 9–19; TEMP 36.3–36.6; O2SAT 80–100
--- NOTE | 2021-05-14 08:30 | RT.EKG_ITS ---
APPROVED REPORT Exam: Resting ECG Reason for Exam: Hx of endocarditis, Cough Patient Location: E HR:52 bpm ECG Measurements Heart Rate 52 AXIS [place] [id number] P [id number] QRSd 103 QRS 91 QT 467 T 67 QTc 434 Conclusion Junctional rhythm...absent P waves, slow V-rate I have reviewed and interpreted ECG and agree with software generated interpretation.
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
--- NOTE | 2021-05-14 08:53 | ED.GENADUL_ITS ---
Discharge Plan Disposition Patient Disposition: HOME Condition: Stable Discharge Details Clinical Impression: Cough Primary Care Provider: Timothy Bliss ED Provider: Arely Lovett Home Meds and New Rx's Prescriptions: No Action methadone 10 MG/ML concentrate 105 mg PO DAILY RF: 0 Discharge Instructions Instructions: Albuterol (By breathing), Acute Cough (ED) Additional Instructions: At this time lab results chest x-ray EKG showed no evidence for your symptoms. I do suspect that the methadone is making you more sleepy than usual. Covid test was negative today. Use albuterol inhaler 1 or 2 puffs every 4-6 hours as needed for cough and wheezing. Follow up with primary care provider in 3-5 days. Return to ED sooner if any worsening or concerns. Increase oral fluids. Please take Tylenol or Ibuprofen with food every 4-6 hours as needed for pain and swelling. Wear Holter monitor as directed and return in 2 days. You are placed on a care management list to help you follow-up with cardiology and make an appointment with your primary care provider. Referrals: Tegan Jacobs MD [ [facility] STAFF PHYSICIAN] - Nick Catherine MD [ CONSULTING PHYSICIAN] - Timothy Bliss [Primary Care Provider] - Discharge Data Discharge Date/Time-TO BE ENTERED AT DEPARTURE: 05/14/21 13:14 Medical Decision Making 31-year-old female with a past medical history of methadone dependence, bronchitis, endocarditis, cardiac valve replacement, GERD, hepatitis C, bipolar disorder presents to the emergency room via EMS with chief complaint of increased productive cough, lethargy. Patient reports that she has been feeling like this with upper respiratory symptoms for the last couple months. She is not vaccinated for Covid. She reports cough with murphy-colored sputum. She denies any abdominal pain no diarrhea no problems urinating. She denies any drugs or alcohol however she does take methadone she was dose this morning. She reports that she missed some doses today gave her a half dose and a full dose today. On initial exam she appears overly sedated and lethargic she falls asleep easily. Respirations decreased to less than 5 and patient weakly wakes up. Pupils bilaterally are 2 mm round and sluggish. At this time extensive work-up ordered including cardiac troponin x2, lactate, blood cultures x2, ESR CRP chest x-ray urinalysis urine drug screen. Differential diagnosis includes but not limited to pneumonia, endocarditis, sepsis, overdose EKG was reviewed by Ruthy Zarco MD ER attending, please see her official report and review old EKG available. EKG shows a junctional rhythm at a rate of 54. Initial troponin wnl, Labs are largely unremarkable. 1201: [facility] called to consult with cardiology. Repeat EKG now shows sinus rhythm. Repeat Troponin pending at this time. 1226: Spoke with Dr Pankaj INGRAM with cardiology with [facility] who reccommends ECHO here today if possible with follow up with cardiology as an outpatient. However we do not have cardiology in house today. Will place patient on holter monitor, and follow up list with care management for outpatient echo and cardiology follow up. Patient much more alert prior to discharge ambulatory in department. Patient please on care management list for cardiology follow-up and was discharged with Holter monitor in place. This text was generated using [employer] system, please disregard any oddities of phrase or misspellings. HPI General Mode of arrival: EMS . Date/Time Provider Initiated Documentation: 05/14/21 08:37 . Limitations to Documentation: altered mental status (Appears overly sedated) . Information obtained by: patient, RN notes reviewed and old records reviewed . HPI Narrative: 31-year-old female with a past medical history of methadone dependence, bronchitis, endocarditis, cardiac valve replacement, GERD, hepatitis C, bipolar disorder presents to the emergency room via EMS with chief complaint of increased productive cough, lethargy. Patient reports that she has been feeling like this with upper respiratory symptoms for the last couple months. She is not vaccinated for Covid. She reports cough with murphy-colored sputum. She denies any abdominal pain no diarrhea no problems urinating. She denies any drugs or alcohol however she does take methadone she was dose this morning. She reports that she missed some doses today gave her a half dose and a full dose today. On initial exam she appears overly sedated and lethargic she falls asl eep easily. Respirations decreased to less than 5 and patient weakly wakes up. Pupils bilaterally are 2 mm round and sluggish. Related Data Home Medications Medication Instructions Recorded Confirmed methadone 105 mg PO DAILY 01/05/19 05/14/21 Allergies Allergy/AdvReac Type Severity Reaction Status Date / Time Penicillins Allergy Unknown Unverified 05/05/21 14:31 General PATRICIA: 3 Review of Systems All systems reviewed & are unremarkable except as noted in HPI and below Cardiovascular Cardiovascular: Reports chest pain and Denies syncope (lethargic) Respiratory Respiratory: Reports cough Neurologic Neurologic: Denies syncope (lethargic) [facility] Medical History (Updated 05/14/21 @ 11:15 by Arely Lovett) Anxiety Bipolar disorder Endocarditis GERD (gastroesophageal reflux disease) Hepatitis C Obesity Surgical History History of heart valve replacement Social History Smoking/Tobacco Use Status: Current every day Tobacco Type: cigarettes Smoking risk assessment performed?: Yes Alcohol Intake: never Drug use: Daily Substance use type: marijuana and crack/cocaine Do you feel safe at home: Yes Do you feel safe in your relationship?: Yes Exam Narrative Exam Narrative: Constitutional: Appears overly sedated easily falls asleep in between sentences. Appears stated age. Normal body habitus. Head: Normocephalic, no trauma. Eyes: Pupils PERRLA, pupils 2 mm bilaterally and sluggish. Red reflex noted, EOM's intact. Eyelids symmetrical without lesions, discharge, or swelling. ENT: Bilateral TM's WNL, External ear normal to inspection, no mastoid TTP, swelling, or erythema, Nasal turbinates WNL, no nasal discharge. Normal dentition, Posterior pharynx WNL, no exudate. Chest: Systolic murmur auscultated, distal pulses intact. Resp: Lungs clear to auscultation bilaterally, no wheezes, rales, or rhonchi. Abdomen: Soft, nondistended nontender to palpation all 4 quadrants. Musculoskeletal: Normal gait, 5/5 strength to all four extremities. Skin: No suspicious rashes or lesions. Capillary refill less than 2 sec. Neurologic: Patient appears overly sedated, no focal neuro deficits noted. Slurred speech. Hematologic/Lymphatic: No ecchymosis, no lymphadenopathy.
[2021-05-14 09:32] LABS: Lactate 0.4 mmol/L (0.6-1.4)
[2021-05-14 09:33] LABS: Abs Immature Grans 0.01 10^3/uL (0.0-0.06); Absolute Basophil Count 0.02 10^3/uL (0.0-0.2); Absolute Eosinophil Count 0.08 10^3/uL (0.0-0.7); Absolute Lymphocyte Count 1.57 10^3/uL (1.2-3.4); Absolute Neutrophil Count 3.21 10^3/uL (1.2-6.7); Basophils % 0.4; Eosinophils % 1.6; HCT 39.7 % (36.0-46.0); HGB 12.6 g/dL (11.2-15.7); Immature Grans % 0.2; Lymphocytes % 30.8; MCH 27.9 pg (27.0-33.0); MCHC 31.7 % (32.0-36.0); Monocytes % 3.9; Neutrophils % 63.1; Nucleated RBC 0 %; Platelet Count 246 10^3/uL (130-400); RBC 4.51 10^6/uL (3.93-5.22); RDW 14.4 % (11.7-14.6); RDW-SD 46.4 fL; WBC 5.09 10^3/uL (4.4-10.8)
[2021-05-14 09:39] LABS: ESR 26 mm/hr (0-20)
[2021-05-14 09:48] LABS: Magnesium 2.2 mg/dL (1.8-2.4)
[2021-05-14 09:50] LABS: C-Reactive Protein 1.67 mg/dL (0.0-0.3); ETHANOL BLOOD < 3.0 mg/dL (<3)
[2021-05-14 10:05] LABS: ALT 19 U/L (14-59); AST 17 U/L (15-37); Albumin 3.8 g/dL (3.4-5.0); Alkaline Phosphatase 72 U/L (46-116); BUN 11 mg/dL (7-18); Bilirubin, Total 0.4 mg/dL (0.2-1.0); CREATININE 0.9 mg/dL (0.55-1.02); Calcium 8.9 mg/dL (8.5-10.1); Chloride 105 mmol/L (98-107); Glucose 86 mg/dL (74-106); Potassium 4.3 mmol/L (3.5-5.1); Sodium 141 mmol/L (136-145); Total Protein 7.7 g/dL (6.4-8.2)
[2021-05-14 10:10] LABS: Troponin I < 0.05 ng/mL (<0.06)
[2021-05-14 10:10] LABS: Source Nasal/Nares
[2021-05-14 10:15] LABS: Bilirubin Negative (Negative); Blood Negative (Negative); Clarity Sl Cloudy (Clear); Glucose Negative (Negative); Ketones Negative (Negative); Leukocyte Esterase Negative (Negative); Nitrite Negative (Negative); Urobilinogen 0.2 EU/dL (Up TO 0.2)
[2021-05-14 10:25] LABS: *AMPHETAMINES SCREEN URINE Negative (Negative); *BARBITURATES SCREEN URINE Negative (Negative); *BENZODIAZEPINES SCREEN URINE Negative (Negative); Cannabinoids THC Positive (Negative); Cocaine Screen,Urine Positive (Negative); METHADONE URINE SCREEN Positive (Negative); OPIATES URINE SCREEN Negative (Negative)
[2021-05-14 10:29] LABS: Tricyclic Antidepressants Negative (Negative)
[2021-05-14 11:02] LABS: COVID-19 PCR Negative (Negative)
--- NOTE | 2021-05-14 11:15 | RT.EKG_ITS ---
APPROVED REPORT Exam: Resting ECG Reason for Exam: Repeat, SOB Patient Location: E HR:54 bpm ECG Measurements Heart Rate 54 AXIS [place] 286 P 49 QRSd 96 QRS 88 QT 479 T 63 QTc 454 Conclusion Sinus bradycardia...rate< 60 Prolonged HI interval...HI >210, V-rate 50- 90 I have reviewed and interpreted ECG and agree with software generated interpretation.
[2021-05-14] MEDS: Inhaler, Assist Device 1 EACH MC (11:59)
[2021-05-14] MEDS: Albuterol HFA 8 GM 60 PUFF INH IH (11:59)
[2021-05-14 12:32] LABS: Troponin I < 0.05 ng/mL (<0.06)
--- NOTE | 2021-05-14 18:46 | NUR.NOTE ---
Nursing Note: Referral to care management for pcp follow up to get echo cardiogram. 2nd referral faxed to cardiology for question of endocarditis / mytro valve replacement - libl 05/14/21
== END 2021-05-14 13:14 | disposition home or self-care (01) ==
PROVIDERS: Emergency Provider Registered Nurse Emergency; PCP Family Medicine
DX: R05 Cough (principal); R53.83 Other fatigue; F11.20 Opioid dependence, uncomplicated; Z20.822 Contact with and (suspected) exposure to COVID-19; Z03.818 Encounter for observation for suspected exposure to other biological agents ruled out
CPT/HCPCS: 36415; 80053; 80307; 81025; 85652; 87040; 87635; 93005; 99285; 71045; 80320; 81003; 83605; 83735; 84484; 85025; 86140; 93010; 93225; 99284

== ENCOUNTER 2021-05-14 12:42 | Outpatient (RCR) | payer MEDICAID, SELFPAY ==
--- NOTE | 2021-05-14 13:00 | HOLTER_ITS ---
APPROVED REPORT Conclusion This is a 24-hour monitor ordered for indication of endocarditis. Patient was in normal sinus rhythm for the majority of the recording with an average heart rate of 95 bpm. There were 3 episodes of NSVT with the longest lasting 4 beats. There were rare PVCs. There were no episodes of SVT and rare PACs. There were no episodes of atrial fibrillation, no pauses greater than 3 seconds and no evidence of hi gh degree heart block. There were no patient triggered events.
== END 2021-06-05 23:59 | disposition home or self-care (01) ==
LOC: RT 12:42
PROVIDERS: PCP Family Medicine; Visit Provider Family Medicine
DX: I05.9 Rheumatic mitral valve disease, unspecified (principal); Z95.2 Presence of prosthetic heart valve
CPT/HCPCS: 93225; 93226

== ENCOUNTER 2021-05-16 07:43 | Emergency (ER) | payer SELFPAY ==
--- NOTE | 2021-05-16 07:47 | NUR.NOTE ---
Patient entered Rm 2 with EMS, refused to sit on bed, stated that she needed to be at [facility] in 10 minutes to get dosed and would return. Tried to advise patient to sit and get triaged, she walked out of room and left the building and stated she would be back. Per EMS patient reported Difficulty Breathing, vitals were WNL, SPO2 100% on RA with no obvious respiratory distress or SOB. Patient in AO x 4 in no obvious distress, has pink skin with no obvious SOB or Difficulty Breathing, speaking in full sentences, walked with normal gait. Nursing Note:
== END 2021-05-16 07:46 ==
LOC: ER 07:50
PROVIDERS: PCP Family Medicine
DX: Z53.21 Procedure and treatment not carried out due to patient leaving prior to being seen by health care provider (principal)

== ENCOUNTER 2021-05-21 07:59 | Emergency (ER) | payer MEDICAID, SELFPAY ==
[2021-05-21] VITALS (7 sets, daily range): BP systolic 115–136; BP diastolic 76–95; PULSE 61–77; RESP 16–34; TEMP 36.4; O2SAT 97–99
--- NOTE | 2021-05-21 08:00 | RT.EKG_ITS ---
APPROVED REPORT Exam: Resting ECG Reason for Exam: sob Patient Location: E HR:75 bpm ECG Measurements Heart Rate 75 AXIS AL 244 P 50 QRSd 104 QRS 99 QT 429 T 65 QTc 480 Conclusion Sinus rhythm...normal P axis, V-rate 60- 99 Prolonged AL interval...AL >210, V-rate 50- 90 Probable left atrial enlargement...P >50mS, <-0.10mV V1
--- NOTE | 2021-05-21 08:23 | W.ED.GENAD ---
Discharge Plan Disposition Patient Disposition: OTHER Discharge Details Clinical Impression: Chest pain Primary Care Provider: Timothy Bliss ED Provider: Rick Zarco Home Meds and New Rx's Prescriptions: No Action methadone 10 MG/ML concentrate 105 mg PO DAILY RF: 0 Medical Decision Making 830 -- 31-year-old female with a past medical history of methadone dependence, endocarditis, cardiac valve replacement remote, GERD, hepatitis C, bipolar disorder here with chest pain. Patient is lethargic. Hemodynamically stable. Afebrile. Screening ECG reviewed and interpreted by me: Sinus rhythm 75 bpm, MT interval 244 which is prolonged, probable left atrial enlargement. Differential broad at this point. Consider recurrent endocarditis versus ACS versus pulmonary embolism. We will check labs including troponin, blood cultures and lactate. 852 --patient now suddenly much more alert and demanding methadone dosing. Plan to call methadone clinic and confirm dosing and she did not receive today. While attempting to contact [facility] patient eloped. [facility] EMS chief called noting that patient has verbalized to EMS that she is just calling to get a ride to the hospital so that she may walk to the [facility]. I will contact the patient's PCP to hopefully arrange timely outpatient follow-up. I attempted to contact the patient by phone to advise return to the ER and further work-up --I left message encouraging the patient to return immediately. Medical Records Medical records reviewed: Yes I reviewed the patient's medical records. Medical records narrative: holter interpreted by Dr. Catherine 05/14/21 -- Conclusion This is a 24-hour monitor ordered for indication of endocarditis. Patient was in normal sinus rhythm for the majority of the recording with an average heart rate of 95 bpm. There were 3 episodes of NSVT with the longest lasting 4 beats. There were rare PVCs. There were no episodes of SVT and rare PACs. There were no episodes of atrial fibrillation, no pauses greater than 3 seconds and no evidence of high degree heart block. There were no patient triggered events. HPI General Mode of arrival: EMS. Date/Time Provider Initiated Documentation: 05/21/21 07:59. Limitations to Documentation: no limitations. Information obtained by: patient and EMS. HPI Narrative: 31-year-old female with a past medical history of methadone dependence, bronchitis, endocarditis, cardiac valve replacement, GERD, hepatitis C, bipolar disorder presents to the emergency room via EMS with chief complaint of chest pain. Patient notes pain has been present for a few days. Pain localized to retrosternal. Pain is severe. She has associated cough and shortness of breath and has been generally not feeling well for weeks. Patient denies associated abdominal pain. Patient is not vaccinated against Covid. Related Data Home Medications Medication Instructions Recorded Confirmed methadone 105 mg PO DAILY 01/05/19 05/21/21 Allergies Allergy/AdvReac Type Severity Reaction Status Date / Time Penicillins Allergy Unknown Unverified 05/21/21 08:05 General Stated Complaint: RespSymp PATRICIA: 3 Review of Systems Narrative: Review of systems is limited secondary to lethargy and patient frequently falling asleep during exam. Constitutional Constitutional: Denies fever(s) and Reports lethargy Cardiovascular Cardiovascular: Reports as per HPI, Reports chest pain and Reports dyspnea Respiratory Respiratory: Reports cough and Reports dyspnea [facility] Medical History (Updated 05/21/21 @ 08:54 by Rick Zarco MD) Anxiety Bipolar disorder Endocarditis GERD (gastroesophageal reflux disease) Hepatitis C Obesity Surgical History History of heart valve replacement Social History Smoking/Tobacco Use Status: Current every day Tobacco Type: cigarettes Smoking risk assessment performed?: Yes Alcohol Intake: never Drug use: Daily Substance use type: marijuana and crack/cocaine Do you feel safe at home: Yes Do you feel safe in your relationship?: Yes Exam Const General: cooperative and lethargic HENWA Head: atraumatic Mouth: moist mucous membranes Throat: posterior oropharynx normal Eyes Conjunctivae: normal conjunctivae Sclera: normal sclerae Neck Neck: trachea midline and supple Resp Auscultation: clear to auscultation bilaterally, no rales, no rhonchi and no wheezes Cardio Rate: regular rate and not tachycardic Rhythm: regular rhythm Heart Sounds: murmur systolic II/ GI Palpation: soft, not firm, no guarding, no masses, not rigid and nontender Skin General skin exam: no rashes or lesions noted Neuro General: patient alert, patient awake, oriented Patient Orientation: Person and Place, moves all extremities and other (Lethargic) Sensory Exam: no sensory deficits noted Extrem General: no edema Psych Appearance: grossly normal Attitude: cooperative Course Vital Signs Vital signs: Vital Signs Temperature 36.4 C L 05/21/21 08:01 Pulse 71 05/21/21 08:01 Respiratory Rate 18 05/21/21 08:01 Blood Pressure 136/95 H 05/21/21 08:01 Pulse Oximetry 99 05/21/21 08:01 Temperature 36.4 C L 05/21/21 08:01 Temperature Source Skin 05/21/21 08:01 Pulse 71 05/21/21 08:01 Respiratory Rate 18 05/21/21 08:01 Respiratory Effort Non-Labored 05/21/21 08:06 Blood Pressure 136/95 H 05/21/21 08:01 Blood Pressure Position Supine 05/21/21 08:01 Pulse Oximetry 99 05/21/21 08:01 Oxygen Delivery Method Room Air 05/21/21 08:01 Oxygen Flow Rate 0 05/21/21 08:01 Pain Level 6 05/21/21 08:01 Lab/Test Results Lab/Test Results: 05/21/21 08:18 Blood Blood Culture - Pending 05/21/21 08:18 Blood Blood Culture - Pending
[2021-05-21 08:26] LABS: Source Nasal/Nares
[2021-05-21 08:47] LABS: Lactate 0.8 mmol/L (0.6-1.4)
[2021-05-21 08:51] LABS: Abs Immature Grans 0.02 10^3/uL (0.0-0.06); Absolute Basophil Count 0.03 10^3/uL (0.0-0.2); Absolute Eosinophil Count 0.12 10^3/uL (0.0-0.7); Absolute Lymphocyte Count 2.53 10^3/uL (1.2-3.4); Absolute Monocyte Count 0.26 10^3/uL (0.1-0.8); Absolute Neutrophil Count 2.45 10^3/uL (1.2-6.7); Basophils % 0.6; Eosinophils % 2.2; HCT 42.1 % (36.0-46.0); HGB 13.4 g/dL (11.2-15.7); Immature Grans % 0.4; Lymphocytes % 46.8; MCHC 31.8 % (32.0-36.0); MCV 87.9 fL (80-95); MPV 10.7 fL (8.0-11.0); Monocytes % 4.8; Neutrophils % 45.2; Nucleated RBC 0 %; Platelet Count 309 10^3/uL (130-400); RBC 4.79 10^6/uL (3.93-5.22); RDW 14.3 % (11.7-14.6); RDW-SD 45.8 fL; WBC 5.41 10^3/uL (4.4-10.8)
[2021-05-21 09:06] LABS: ALT 28 U/L (14-59); AST 23 U/L (15-37); Albumin 4.1 g/dL (3.4-5.0); Alkaline Phosphatase 83 U/L (46-116); Anion Gap 9.7 mmol/L (3-11); BUN 8 mg/dL (7-18); Bilirubin, Total 0.6 mg/dL (0.2-1.0); CO2 27.3 mmol/L (21.0-32.0); CREATININE 1.1 mg/dL (0.55-1.02); Calcium 8.9 mg/dL (8.5-10.1); Chloride 106 mmol/L (98-107); Estimated GFR 57.56 (mL/min/1.73m2); Glucose 93 mg/dL (74-106); Potassium 3.5 mmol/L (3.5-5.1); Sodium 143 mmol/L (136-145); Total Protein 7.9 g/dL (6.4-8.2)
[2021-05-21 09:08] LABS: Troponin I < 0.05 ng/mL (<0.06)
[2021-05-21 09:20] LABS: COVID-19 PCR Negative (Negative)
[2021-05-21 22:26] LABS: Magnesium 2.5 mg/dL (1.8-2.4)
== END 2021-05-21 08:52 | disposition other institution (70) ==
LOC: ER 08:59
PROVIDERS: Emergency Provider Student in an Organized Health Care Education/Training Program; PCP Family Medicine
DX: R07.89 Other chest pain (principal); R06.02 Shortness of breath; Z53.29 Procedure and treatment not carried out because of patient's decision for other reasons; Z20.822 Contact with and (suspected) exposure to COVID-19; Z03.818 Encounter for observation for suspected exposure to other biological agents ruled out
CPT/HCPCS: 36415; 80053; 87040; 87635; 93005; 99284; 83605; 83735; 84484; 85025; 93010; 99283

== ENCOUNTER 2021-07-20 09:37 | Emergency (ER) | payer MEDICAID, SELFPAY ==
[2021-07-20] VITALS (10 sets, daily range): BP systolic 102–114; BP diastolic 70–77; PULSE 52–69; RESP 0–18; TEMP 36.6–36.7; O2SAT 98–100
--- NOTE | 2021-07-20 09:45 | DI.CT_ITS ---
Exam(s) CT ABDOMEN PELVIS W EXAM: CT ABDOMEN PELVIS W CLINICAL HISTORY: RLQ pain TECHNIQUE: Imaging Protocol: Axial computed tomography images with coronal and sagittal reformatted images were created and reviewed CONTRAST MATERIAL: Intravenous: Omnipaque 350 Contrast volume:100 mL Oral: No COMPARISON: CT CT ABDOMEN PELVIS W from 09/24/2020 FINDINGS: ABDOMEN: Lung Bases: Normal where visualized. Liver: Normal density. No measurable mass. Portal, Superior Mesenteric, and Splenic Veins: Unremarkable. Gallbladder and Biliary Tract: Status post cholecystectomy. No biliary ductal dilatation. Pancreas: Normal density, no abnormal calcifications or inflammatory process. Spleen: Normal. Adrenals: No masses seen. Kidneys: Normal size, contour and axis. No radiodense stones or obstructive uropathy. Stable left jenna al cyst. There is a retroaortic left renal vein. Abdominal Aorta: Abdominal portion non-dilated. Bowel: No obstruction or bowel wall thickening. No evidence of appendicitis. Peritoneal Cavity: No ascites, collection or mesenteric inflammatory response. No free air. Lymph Nodes: Within normal limits. Bones: Within normal limits for the patient's age. Soft Tissues: Unremarkable. PELVIS: Bladder: Symmetric distention, no gross wall thickening. Reproductive Organs: Unremarkable as visualized. Lymph Nodes: Within normal limits. Bones: Within normal limits for the patient's age. IMPRESSION: No acute abdominal or pelvic process. RADIATION DOSE DELIVERED: 998.66mGy.cm Total DLP DATA REPOSITORY: All CT scans at this facility are submitted to the National Radiology Data Registry (NRDR) Dose Index Registry (DIR) with the [employer] (A[employer]). RADIATION OPTIMIZATION: All CT scans at this facility use at least one of these dose optimization te chniques: automated exposure control; mA and/or kV adjustment per patient size (includes targeted exa ms where dose is matched to clinical indication); or iterative reconstruction.
--- NOTE | 2021-07-20 09:53 | ED.GENADUL_ITS ---
Discharge Plan Disposition Patient Disposition: HOME Condition: Improving Discharge Details Clinical Impression: Abdominal pain Primary Care Provider: Timothy Bliss ED Provider: Joe Parker Home Meds and New Rx's Prescriptions: Continued methadone 10 MG/ML concentrate 105 mg PO DAILY RF: 0 Discharge Instructions Instructions: Abdominal Pain (ED) Additional Instructions: Home to rest today. Follow-up with the clinic tomorrow for your routine methadone dosing. Small, frequent sips of fluids so that you maintain good hydration. Return for any acute concerns. Medical Decision Making 31-year-old female presents from home with hours of right lower quadrant abdominal pain, nausea. She did miss her methadone dose today as the clinic is closed and she was not given to go given lack of proper storage. She arrives to the ER in some discomfort, but afebrile with a pulse 64. Tender overlying the right lower quadrant on exam. Differential diagnosis includes benign cramps, normal menstrual cramps, must exclude pyelonephritis, renal colic, or appendicitis. Patient was given her oral daily dose of methadone as she had missed it. She was given a fluid bolus and referred for laboratories and CT imaging. Patient's diagnostic studies reveal a normal CBC, unremarkable chemistries and LFTs, negative lipase. Urinalysis unremarkable but note microscopic hematuria. CT scan of the abdomen pelvis is without findings. Please see formal report. Patient improved. Stable for discharge to home. She will return for any acute concerns. HPI General Mode of arrival: ambulatory . Date/Time Provider Initiated Documentation: 07/20/21 10:12 . Limitations to Documentation: no limitations . Information obtained by: patient . History of Present Illness 31 year old F presents to the emergency department with the chief complaint of Right lower quadrant abdominal pain, described as moderate, Quality is described as dull, and is localized to the abdomen and right. Patient reports no radiation. Patient started experiencing this hour(s) and it has been constant. Movement improves symptom(s), Rest worsens symptoms . Patient notes no other symptoms.. Patient did receive the following treatments prior to arrival, none Related Data Home Medications Medication Instructions Recorded Confirmed methadone 105 mg PO DAILY 01/05/19 07/20/21 Allergies Allergy/AdvReac Type Severity Reaction Status Date / Time Penicillins Allergy Unknown Unverified 07/20/21 09:44 General Stated Complaint: Abd Prob PATRICIA: 3 Review of Systems Narrative: 6 systems reviewed and otherwise negative. [facility] Medical History (Updated 07/20/21 @ 11:10 by Joe Parker MD) Anxiety Bipolar disorder Endocarditis GERD (gastroesophageal reflux disease) Hepatitis C Obesity Surgical History History of heart valve replacement Social History Smoking/Tobacco Use Status: Current every day Tobacco Type: cigarettes Smoking risk assessment performed?: Yes Alcohol Intake: never Drug use: Daily Substance use type: marijuana and crack/cocaine Do you feel safe at home: Yes Do you feel safe in your relationship?: Yes Exam Narrative Exam Narrative: GEN: awake, alert, oriented 3. Pleasant, well groomed, interactive. HEAD: Normocephalic, atraumatic ENT: Mucous membranes moist, oropharynx unremarkable, External ear exam unremarkable EYES: PERRL, EOMI NECK: Full ROM, no DANA, no menigismus CHEST/RESP: Nontender, clear to auscultation bilateral, no wheeze/rhonchi/rales CARDIOVASCULAR: RRR, 2 - 3 out of 6 systolic murmur, rub esme. 2+ Rad pulse bilateral ABDOMEN: Soft, tender at right lower quadrant, no mass. +Bowel sounds EXT: Full ROM, no edema, no rash Neuro: Grossly normal neurologic exam, conversant, interactive. Psych: Speech fluent, thoughts congruent, affect normal Course Vital Signs Vital signs: Vital Signs Temperature 36.6 C 07/20/21 09:39 Pulse 64 07/20/21 09:39 Respiratory Rate 16 07/20/21 09:39 Blood Pressure 114/77 07/20/21 09:39 Pulse Oximetry 98 07/20/21 09:39 Temperature 36.6 C 07/20/21 09:39 Temperature Source Skin 07/20/21 09:39 Pulse 64 07/20/21 09:39 Respiratory Rate 16 07/20/21 09:39 Respiratory Effort Non-Labored 07/20/21 09:39 Blood Pressure 114/77 07/20/21 09:39 Blood Pressure Position Supine 07/20/21 09:39 Pulse Oximetry 98 07/20/21 09:39 Oxygen Delivery Method Room Air 07/20/21 09:39 Oxygen Flow Rate 0 07/20/21 09:39 Pain Level 8 07/20/21 09:39
[2021-07-20 10:10] LABS: Abs Immature Grans 0.02 10^3/uL (0.0-0.06); Absolute Basophil Count 0.03 10^3/uL (0.0-0.2); Absolute Eosinophil Count 0.21 10^3/uL (0.0-0.7); Absolute Lymphocyte Count 2.44 10^3/uL (1.2-3.4); Absolute Monocyte Count 0.29 10^3/uL (0.1-0.8); Absolute Neutrophil Count 3.18 10^3/uL (1.2-6.7); Basophils % 0.5; Eosinophils % 3.4; HCT 38.6 % (36.0-46.0); HGB 12.2 g/dL (11.2-15.7); Immature Grans % 0.3; Lymphocytes % 39.5; MCH 28.1 pg (27.0-33.0); MCHC 31.6 % (32.0-36.0); MCV 88.9 fL (80-95); MPV 10.1 fL (8.0-11.0); Monocytes % 4.7; Neutrophils % 51.6; Nucleated RBC 0 %; Platelet Count 290 10^3/uL (130-400); RBC 4.34 10^6/uL (3.93-5.22); RDW 14.6 % (11.7-14.6); RDW-SD 47.6 fL; WBC 6.17 10^3/uL (4.4-10.8)
[2021-07-20] MEDS: Normal Saline 1,000 ML 1000 ML IV (10:15)
[2021-07-20 10:25] LABS: ALT 16 U/L (14-59); AST 17 U/L (15-37); Albumin 3.4 g/dL (3.4-5.0); Alkaline Phosphatase 90 U/L (46-116); Anion Gap 5.5 mmol/L (3-11); BUN 10 mg/dL (7-18); Bilirubin, Total 0.2 mg/dL (0.2-1.0); CO2 32.5 mmol/L (21.0-32.0); CREATININE 0.9 mg/dL (0.55-1.02); Calcium 8.3 mg/dL (8.5-10.1); Chloride 107 mmol/L (98-107); Glucose 81 mg/dL (74-106); Potassium 4.1 mmol/L (3.5-5.1); Sodium 145 mmol/L (136-145); Total Protein 7.2 g/dL (6.4-8.2)
[2021-07-20 10:26] LABS: Lipase 57 U/L (73-393)
[2021-07-20] MEDS: Methadone Liquid 10 MG/ML 105 MG PO (10:37)
[2021-07-20 10:39] LABS: Clarity Cloudy (Clear)
[2021-07-20 10:40] LABS: Bilirubin Negative (Negative); Blood Large (Negative); Glucose Negative (Negative); Ketones Negative (Negative); Leukocyte Esterase Negative (Negative); Nitrite Negative (Negative); Specific Gravity 1.025 (1.005-1.025); Urobilinogen 0.2 EU/dL (Up TO 0.2)
[2021-07-20 10:48] LABS: Bacteria Negative HPF (Negative); C & S Indicated? No; Casts 0-2 Hyaline LPF (Negative); Crystals Negative HPF (Negative); Epithelial Cells Few HPF (Negative); Mucus Negative (Negative); RBC >50 HPF (0-2); WBC 0-2 HPF (0-5)
[2021-07-20] MEDS: Omnipaque 350 MG/ML 100 ML BTL IJ (10:49)
[2021-07-20] MEDS: Normal Saline - Diluent 50 ML VIAL IV (10:49)
[2021-07-20] MEDS: Normal Saline Flush 10 ML SYR IVP (10:50)
--- NOTE | 2021-07-20 11:05 | DI.VRAD_ITS ---
PROCEDURE INFORMATION: Exam: CT Abdomen And Pelvis With Contrast Exam date and time: 07/20/2021 9:54 AM Age: 31 years old Clinical indication: Other: Rlq pain TECHNIQUE: Imaging protocol: Computed tomography of the abdomen and pelvis with contrast. COMPARISON: CT ABDOMEN PELVIS W 24/09/2020 08:05 FINDINGS: Lungs: Visualized lung bases are clear. Liver: Normal. No mass or intrahepatic biliary ductal dilatation. Gallbladder and bile ducts: The gallbladder is absent. Pancreas: Normal. No mass or ductal dilation. Spleen: Normal. No splenomegaly. Adrenal glands: Normal. No mass. Kidneys and ureters: Normal. No hydronephrosis, calculus, cyst or mass. Stomach and bowel: Unremarkable. No significant dilatation or obstruction. No mucosal thickening or visible mass. Appendix: No evidence of appendicitis. Intraperitoneal space: Unremarkable. No free air. No significant fluid collection. Vasculature: Unremarkable. No abdominal aortic aneurysm or significant atherosclerosis. Lymph nodes: No enlarged retroperitoneal or mesenteric lymph nodes. A few small nodes are present in the right lower quadrant mesentery. Urinary bladder: No mass or wall thickening. Reproductive: Unremarkable as visualized. There is no adnexal cyst or mass. No free pelvic fluid is present. The uterus is retroflexed. From Bones/joints: Unremarkable. No acute fracture. No lytic lesion. Soft tissues: Unremarkable. IMPRESSION: No acute abnomality in the abdomen or pelvis. Dictated and Authenticated by: Joe Caceres MD. Ordering:LEV Diaz MD
[2021-07-20] MEDS: Ketorolac 15 MG/ML VIAL IVP (11:35)
[2021-07-24 10:02] LABS: EDDP-by GC-MS 12080 ng/mL (Cutoff: 100); Methadone Interpretation Positive.; Methadone-by GC-MS 826 ng/mL (Cutoff: 100)
== END 2021-07-20 11:45 | disposition home or self-care (01) ==
PROVIDERS: Emergency Provider Emergency Medicine; PCP Family Medicine
DX: R10.31 Right lower quadrant pain (principal); R11.0 Nausea
CPT/HCPCS: 36415; 80053; 81025; 83690; 96361; 96374; 99285; 74177; 80358; 81003; 81015; 85025; 99284; J1885; J3490

== ENCOUNTER 2021-08-10 07:14 | Emergency (ER) | payer MEDICAID, SELFPAY ==
--- NOTE | 2021-08-10 07:15 | RT.EKG_ITS ---
APPROVED REPORT Exam: Resting ECG Reason for Exam: sob Patient Location: E HR:66 bpm ECG Measurements Heart Rate 66 AXIS WI 259 P 32 QRSd 103 QRS 91 QT 422 T 44 QTc 443 Conclusion Sinus rhythm...normal P axis, V-rate 60- 99 Prolonged WI interval...WI >210, V-rate 50- 90 Physician: Rate 66, sinus rhythm, prolonged WI interval, inverted T waves in V1 and V2, no significan t ST elevation or depression. Small Q waves noted in lead III. No STEMI. No changes from prior EKG on 05/21/2021
--- NOTE | 2021-08-10 07:25 | ED.GENADUL_ITS ---
Discharge Plan Disposition Patient Disposition: AGAINST MEDICAL ADVICE Condition: Stable Discharge Details Clinical Impression: Chest pain Primary Care Provider: Timothy Bliss ED Provider: Arie Verduzco Home Meds and New Rx's Prescriptions: No Action methadone 10 MG/ML concentrate 105 mg PO DAILY RF: 0 Medical Decision Making This is a 31-year-old female with a past medical history of endocarditis, hepatitis C, bipolar disorder, cholecystectomy, methadone use, who presents today via EMS for assessment of malaise. Patient states that for the last 5 days she has had very mild chest pain, cough that is nonproductive, very mild shortness of breath, and feelings of generalized malaise. Upon EMS arrival the patient's vital signs are stable, she had no hypoxemia, no signs of distress. She states that she has missed her last dose of methadone. She denies any IV or illicit drug use recently. She has not had her Covid vaccine. She denies any other complaints at this time. She denies any tearing or ripping sensation in her chest. She denies any calf tenderness. She denies any syncope. Physical exam is very reassuring. Lung sounds are normal, no calf tenderness, vital signs demonstrate no tachypnea, tachycardia, hypoxemia, no signs of respiratory distress whatsoever. Radial pulses are equal bilaterally. Screening EKG shows no significant abnormalities or changes from prior EKGs. Patient states that she requires her methadone dose. At this time I see no clinical evidence of active or significant withdrawal with no tachypnea, diaphoresis, tachycardia, other signs of significant distress. I did recommend evaluation for cardiac etiologies, chest x-ray, and further work-up, however the patient stated she needed her methadone immediately. When I discussed with the patient that there is no indication for emergent methadone administration here in the ED, and that it would be best for her to follow-up with her methadone clinic for management of this, the patient had a notable prompt change in disposition, became very angry, irate, began yelling. I recommended to the patient that she stay and be evaluated for these concerning etiologies that I discussed with her mild chest pain and mild shortness of breath, however soon as I left the room she stated to nursing staff that she was leaving and not staying here anymore. Patient is of a appropriate age to make decisions. The patient is of sound mind, appears clinically sober, and has capacity to make decisions by my clinical exam. We have provided options for treatment and discussed the risks and benefits of these options and refusing these options, including and disability specific to the patient's pathology. Patient is able to discuss the risks and benefits and alternatives of treatment and refusing treatment. We have tried to involve the patient's family or support group . The patient chooses to leave before evaluation and treatment is complete AGAINST MEDICAL ADVICE. EKG 7: 17 Rate 66, sinus rhythm, prolonged MO interval, inverted T waves in V1 and V2, no significant ST elevation or depression. Small Q waves noted in lead III. No STEMI. No changes from prior EKG on 05/21/2021 HPI General Date/Time Provider Initiated Documentation: 08/10/21 07:22 . HPI Narrative: This is a 31-year-old female with a past medical history of endocarditis, hepatitis C, bipolar disorder, cholecystectomy, methadone use, who presents today via EMS for assessment of malaise. Patient states that for the last 5 days she has had very mild chest pain, cough that is nonproductive, very mild shortness of breath, and feelings of generalized malaise. Upon EMS arrival the patient's vital signs are stable, she had no hypoxemia, no signs of distress. She states that she has missed her last dose of methadone. She denies any IV or illicit drug use recently. She has not had her Covid vaccine. She denies any other complaints at this time. She denies any tearing or ripping sensation in her chest. She denies any calf tenderness. She denies any syncope. Related Data Home Medications Medication Instructions Recorded Confirmed methadone 105 mg PO DAILY 01/05/19 07/20/21 Allergies Allergy/AdvReac Type Severity Reaction Status Date / Time Penicillins Allergy Unknown Unverified 07/20/21 09:44 General PATRICIA: 3 Review of Systems All systems reviewed & are unremarkable except as noted in HPI and below [facility] Active Problem List Chest pain (Acute) Abdominal pain (Acute) Chest pain (Acute) Anxiety (Chronic) Eloped from emergency department (Acute) Headache (Acute) Drug reaction (Acute) Bronchitis (Acute) Bronchitis (Acute) Reactive airway disease (Acute) Arm numbness left (Acute) Cough (Acute) Methadone dependence (Acute) Noncompliance with medication regimen (Acute) Endocarditis (Acute) History of intravenous drug abuse (Acute) Frequent headaches (Acute) Lower extremity edema (Acute) Left shoulder pain (Acute) Medical History Anxiety Bipolar disorder Endocarditis GERD (gastroesophageal reflux disease) Hepatitis C Obesity Surgical History History of heart valve replacement Social History Smoking/Tobacco Use Status: Current every day Tobacco Type: cigarettes Smoking risk assessment performed?: Yes Alcohol Intake: never Drug use: Daily Substance use type: marijuana and crack/cocaine Do you feel safe at home: Yes Do you feel safe in your relationship?: Yes Exam Narrative Exam Narrative: 1.Const: Well-nourished, Well-developed, appearing stated age 2.Eyes: PERRL, no conjunctival injection, and symmetrical lids. 3.ENT: Atraumatic external nose and ears. Moist MM. Neck: Symmetric, trachea midline, No thyromegaly. 4.CVS: +S1/S2, No murmurs or gallops. Peripheral pulses 2+ and equal in all extremities. Brisk capillary refill in all extremities. 5.RESP: Unlabored respiratory effort. Clear to auscultation bilaterally. No wheezes rales or rhonchi 6.GI: Soft, Nontender/Nondistended, No hepatosplenomegaly. No guarding or rebound. 7.MSK: Normocephalic/Atraumatic, Extremities w/o deformity or ttp No cyanosis or clubbing, Normal movement of all extremities 8.Skin: Warm, Dry. No rashes or lesions. 9.Neuro: director of healthcare systems II-XII grossly intact. Sensation grossly intact, no focal neurologic deficits. 10.Psych: (AAO) x3. Appropriate mood and affect
[2021-08-10 07:36] VITALS: BP 126/81; PULSE 64; RESP 16; TEMP 36.4; O2SAT 97
[2021-08-10 07:38] VITALS: BP 126/81; PULSE 64; RESP 16; TEMP 36.4; O2SAT 97
== END 2021-08-10 07:38 | disposition left against medical advice (07) ==
LOC: ER 19:38
PROVIDERS: Emergency Provider Student in an Organized Health Care Education/Training Program; PCP Family Medicine
DX: R07.9 Chest pain, unspecified (principal); R05.9 Cough, unspecified; R06.02 Shortness of breath; Z53.29 Procedure and treatment not carried out because of patient's decision for other reasons; Z20.822 Contact with and (suspected) exposure to COVID-19
CPT/HCPCS: 80053; 83690; 93005; 99283; 84484; 85025; 93010; 99282

== ENCOUNTER 2021-08-14 04:46 | Emergency (ER) | payer MEDICAID, SELFPAY ==
--- NOTE | 2021-08-14 04:45 | DI.RAD_ITS ---
Exam(s) XR PORTABLE CHEST AP EXAM: XR PORTABLE CHEST AP CLINICAL HISTORY: cough. TECHNIQUE: 2D digital imaging was performed. COMPARISON: Prior chest x-ray 05/14/2021 FINDINGS: Sternotomy wires and prosthetic aortic valve again noted. Heart size remains normal mediastinum is n ot widened . Lungs are clear. No infiltrates nor obvious pleural effusions. IMPRESSION: No acute pulmonary findings on this single AP portable view of the chest. DATA REPOSITORY: RADIATION DOSE DELIVERED: All CT scans at this facility use at least one of these dose optimization techniques: automated exposure control; mA and/or kV adjustment per patient size (includes targeted e xams where dose is matched to clinical indication); or iterative reconstruction.
[2021-08-14 04:46] VITALS: BP 137/79; PULSE 70; TEMP 36.3; O2SAT 99
--- NOTE | 2021-08-14 04:52 | ED.GENADUL_ITS ---
Discharge Plan Disposition Patient Disposition: OTHER Condition: Stable Discharge Details Chief Complaint: GenMedical Clinical Impression: COVID-19 Primary Care Provider: Timothy Bliss ED Provider: Arie Verduzco Home Meds and New Rx's Prescriptions: No Action methadone 10 MG/ML concentrate 105 mg PO DAILY RF: 0 Medical Decision Making This is a 31-year-old female with a past medical history of endocarditis, hepatitis C, bipolar disorder, cholecystectomy, methadone use, who presents today via EMS for cough and feeling of malaise. Patient states that for the last 5 to 7 days she has had a mild cough. She states she feels like she has a fever however she is afebrile on EMS assessment. She admits to feeling horrible everywhere. She has not taken her methadone for the last few days reportedly. She denies any IV or illicit drugs. She has not received her Covid vaccine. She states that her cough productive. She denies any hemoptysis. She has no other complaints this time. Exam is notably unremarkable aside from minimal crackles in the bases. No wheezes or rhonchi. Vital signs demonstrate no tachycardia, tachypnea, hypoxemia, or fever. She does not show active signs of withdrawal. Concern for bronchitis versus broad pneumonia. Covid is on the differential although would be a mild case if she does have it. Will check for Covid and get a portable chest x-ray. Will give Tessalon Perles for cough. 5:30 AM Chest x-ray has returned negative, I did go to tell the patient his results but she had already left. Uncertain as to why she left. Nursing does note that she appeared notably stable as she was getting up out of the room and exiting the area very quickly. She appeared in no acute distress per nursing staff. Prior to her leaving on her own the patient demonstrated continued normal and stable vital signs. Later during the morning her Covid test came back her Covid test is positive. We did attempt to contact her but the phone numbers that she had file are disconnected. We will make referral to case management to have them try to find a way to contact her to inform her of the results. FINDINGS: Lungs: Unremarkable. No consolidation. Pleural spaces: Unremarkable. No pleural effusion. No pneumothorax. Heart/Mediastinum: Unremarkable. No cardiomegaly. Bones/joints: Unremarkable. IMPRESSION: No acute findings. Thank you for allowing us to participate in the care of your patient. Dictated and Authenticated by: Clem Bueno MD 08/14/2021 5:08 AM Eastern Time ([place] & [place]) HPI General Date/Time Provider Initiated Documentation: 08/14/21 05:58 . HPI Narrative: This is a 31-year-old female with a past medical history of endocarditis, hepatitis C, bipolar disorder, cholecystectomy, methadone use, who presents today via EMS for cough and feeling of malaise. Patient states that for the last 5 to 7 days she has had a mild cough. She states she feels like she has a fever however she is afebrile on EMS assessment. She admits to feeling horrible everywhere. She has not taken her methadone for the last few days reportedly. She denies any IV or illicit drugs. She has not received her Covid vaccine. She states that her cough productive. She denies any hemoptysis. She has no other complaints this time. Related Data Home Medications Medication Instructions Recorded Confirmed methadone 105 mg PO DAILY 01/05/19 08/14/21 Allergies Allergy/AdvReac Type Severity Reaction Status Date / Time Penicillins Allergy Unknown Unverified 08/14/21 04:50 General Stated Complaint: GenMedical PATRICIA: 3 Review of Systems All systems reviewed & are unremarkable except as noted in HPI and below [facility] Active Problem List (Updated 08/14/21 @ 06:01 by Arie Verduzco DO) Chest pain (Acute) Abdominal pain (Acute) Chest pain (Acute) COVID-19 (Acute) Anxiety (Chronic) Eloped from emergency department (Acute) Headache (Acute) Drug reaction (Acute) Bronchitis (Acute) Bronchitis (Acute) Reactive airway disease (Acute) Arm numbness left (Acute) Cough (Acute) Methadone dependence (Acute) Noncompliance with medication regimen (Acute) Endocarditis (Acute) History of intravenous drug abuse (Acute) Frequent headaches (Acute) Lower extremity edema (Acute) Left shoulder pain (Acute) Medical History (Updated 08/14/21 @ 06:01 by Arie Verduzco DO) Anxiety Bipolar disorder Endocarditis GERD (gastroesophageal reflux disease) Hepatitis C Obesity Surgical History History of heart valve replacement Social History (Reviewed 12/09/21 @ 04:53 by ELAINE Carr Smoking/Tobacco Use Status: Current every day Tobacco Type: cigarettes Smoking risk assessment performed?: Yes Alcohol Intake: never Drug use: Daily Substance use type: marijuana and crack/cocaine Do you feel safe at home: Yes Do you feel safe in your relationship?: Yes Exam Narrative Exam Narrative: 1.Const: Well-nourished, Well-developed, appearing stated age 2.Eyes: PERRL, no conjunctival injection, and symmetrical lids. 3.ENT: Atraumatic external nose and ears. Moist MM. Neck: Symmetric, trachea mi dline, No thyromegaly. 4.CVS: +S1/S2, No murmurs or gallops. Peripheral pulses 2+ and equal in all extremities. Brisk capillary refill in all extremities. 5.RESP: Unlabored respiratory effort. Minimal crackles in the bases bilaterally. No wheezes or rhonchi. 6.GI: Soft, Nontender/Nondistended, No hepatosplenomegaly. No guarding or rebound. 7.MSK: Normocephalic/Atraumatic, Extremities w/o deformity or ttp No cyanosis or clubbing, Normal movement of all extremities 8.Skin: Warm, Dry. No rashes or lesions. 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 Sensation grossly intact, no focal neur ologic deficits. 10.Psych: (AAO) x3. Appropriate mood and affect Course Vital Signs Vital signs: Vital Signs Temperature 36.3 C L 08/14/21 04:46 Pulse 70 08/14/21 04:46 Blood Pressure 137/79 08/14/21 04:46 Pulse Oximetry 99 08/14/21 04:46 Temperature 36.3 C L 08/14/21 04:46 Temperature Source Skin 08/14/21 04:46 Pulse 70 08/14/21 04:46 Blood Pressure 137/79 08/14/21 04:46 Blood Pressure Position Supine 08/14/21 04:46 Pulse Oximetry 99 08/14/21 04:46 Oxygen Delivery Method Room Air 08/14/21 04:46 Oxygen Flow Rate 0 08/14/21 04:46 Pain Level 8 08/14/21 04:46
[2021-08-14 04:56] LABS: Source Nasal/Nares
--- NOTE | 2021-08-14 05:08 | DI.VRAD_ITS ---
PROCEDURE INFORMATION: Exam: XR Chest Exam date and time: 08/14/2021 4:51 AM Age: 31 years old Clinical indication: Other: Cough TECHNIQUE: Imaging protocol: XR of the chest. Views: 1 view. COMPARISON: CR XR PORTABLE CHEST AP 05/14/2021 8:53 AM FINDINGS: Lungs: Unremarkable. No consolidation. Pleural spaces: Unremarkable. No pleural effusion. No pneumothorax. Heart/Mediastinum: Unremarkable. No cardiomegaly. Bones/joints: Unremarkable. IMPRESSION: No acute findings. Dictated and Authenticated by: Clem Bueno MD. Ordering:GRICEL Sargent MD
[2021-08-14] MEDS: Benzonatate 200 MG CAP PO (05:19)
[2021-08-14 05:52] LABS: COVID-19 PCR POSITIVE (Negative)
--- NOTE | 2021-08-14 06:00 | NUR.NOTE ---
Referral to Care Management, patient eloped prior to Covid test result. Test is positive. Provider tried to call patient and phone number has been disconnected. Nursing Note:
--- NOTE | 2021-08-15 10:21 | PDOC.ERCMACT ---
- If Service Date Differs Date of service: 08/15/21 Time of Service: 10:21 Care Management Activity Note Ina was seen in the ED for a cough and a feeling of malaise. She was tested for Covid-19 while in the ED but results of the test weren't available until after she was discharged. ED staff attempted to contact Ina by telephone to relay the results of the test but have been unable to reach her at [phone] due to restrictions on her phone. ROSALIO sent Ina a letter by mail asking that she call the ED for her test results.
== END 2021-08-14 05:58 | disposition other institution (70) ==
PROVIDERS: Emergency Provider Student in an Organized Health Care Education/Training Program; PCP Family Medicine
DX: U07.1 COVID-19 (principal); R53.81 Other malaise; Z53.29 Procedure and treatment not carried out because of patient's decision for other reasons
CPT/HCPCS: 87635; 99283; 71045

== ENCOUNTER 2021-10-28 09:49 | Emergency (ER) | payer MEDICAID, SELFPAY ==
[2021-10-28] VITALS (9 sets, daily range): BP systolic 121–134; BP diastolic 76–87; PULSE 68–90; RESP 12–22; TEMP 36.4; O2SAT 97–100
--- NOTE | 2021-10-28 10:44 | ED.GENADUL_ITS ---
Discharge Plan Disposition Patient Disposition: OTHER Discharge Details Clinical Impression: Polysubstance abuse Primary Care Provider: Timothy Bliss ED Provider: Luis Fraser Home Meds and New Rx's Prescriptions: Continued methadone 10 MG/ML concentrate 105 mg PO DAILY 0RF Label Comments: patient states she takes it at exactly 0530 every day Rx Instructions: pt gets med at [facility]- pt stated dose 105 Discharge Instructions Additional Instructions: Patient eloped Medical Decision Making This is a 31-year-old female who admits to smoking fentanyl last night, took 8 milligrams of Suboxone prior to coming to the ER, presents for concern of going into withdrawal. Patient is awake, alert but falls asleep very easily. She states that she has no acute medical concerns or complaints but that she is homeless, slept on the street last night and is very tired. She is requesting that I let her sleep here. Given her vital signs are unremarkable, she has no obvious signs of withdrawal, no acute medical concerns or complaints, and after reviewing her record and seeing that she has no elopement risk, I do not believe that she requires an IV. In fact I do not believe that any laboratory values will likely be of benefit or change her overall disposition. She is able to provide a urine sample and therefore will obtain urinalysis, , tox screen. I have requested that our assistant womens volleyball coach come speak with the patient and have requested that our care management team come evaluate the patient to see if they can help with additional resources. Upon reevaluation patient is resting comfortably, sleeping. When she wakes up she flails both her arms and legs and reports that she is feeling very restless and would like something for her symptoms. Reports they always give me Ativan. I did not feel as though benzodiazepines were appropriate and instead offered her 50 mg of Benadryl. Patient medicated Laboratory values reveal negative , tox screen positive for cocaine. Patient was interviewed by our care management team who will begin working on resources. The assistant womens volleyball coach also evaluated the patient. Patient tells me that she is scheduled to be seen by the [facility] program tomorrow. We contacted the program as well as the [facility] health group and she is not currently inclined to either program. Patient is adamant that she has an appointment tomorrow Patient called me again to the room and was flailing both of her arms and legs and requesting additional medication. At this time her vital signs are unremarkable and I have declined. Soon after declining these medications upon reevaluation she was laying on her side sleeping, no acute distress. Patient again called me to her room, she is now requesting tramadol. I again declined this medication. I offered her Tylenol if she was having any discomfort. Patient then was witnessed ambulating steadily to the restroom without difficulty Patient called me to the room once again, was upset that I have not given her Ativan or tramadol. I once again declined. Patient then said if you are not going to help me then I will leave. Shortly later she ambulated steadily throughout the ER and eloped Medical Records Medical records reviewed: Yes I reviewed the patient's medical records. Lab Data Lab results reviewed: Yes I reviewed the patient's lab results. Labs: Laboratory Tests Range/Units 10/28/21 10/28/21 10:45 10:45 Urine Color (Yellow) Yellow Urine Clarity (Clear) Sl Cloudy Urine pH (5-8) 8.5 H Ur Specific [place] (1.005-1.025) 1.020 Urine Protein (Negative) mg/dL Negative Urine Ketones (Negative) mg/dL Negative Urine Blood (Negative) Negative Urine Nitrite (Negative) Negative Urine Bilirubin (Negative) Negative Urine Urobilinogen (Up TO 0.2) EU/dL 0.2 Ur Leukocyte Esterase (Negative) Negative Urine Glucose (Negative) mg/dL Negative Urine Opiates Screen (Negative) Negative Urine Methadone Screen (Negative) Negative Ur Barbiturates Screen (Negative) Negative Ur Tricyclics Screen (Negative) Negative Ur Amphetamines Screen (Negative) Negative U Benzodiazepines Scrn (Negative) Negative Urine Cocaine Screen (Negative) Positive A Ur THC Screen (Negative) Negative HPI General Mode of arrival: EMS . Date/Time Provider Initiated Documentation: 10/28/21 10:11 . Limitations to Documentation: no limitations . Information obtained by: patient and EMS . HPI Narrative: This is a 31-year-old female, past medical history of anxiety, bipolar disorder, endocarditis, GERD, hepatitis C, polysubstance abuse, presents to the ER via EMS concern for opiate withdrawal. Patient states that she smoked fentanyl yesterday and this morning took 8 mg of Suboxone that she bought off the street. She tells me that she has an appointment with the [facility] program tomorrow morning. She denies recent illness or trauma. She is concerned that she may begin to start to withdrawal but is not actively withdrawing. No acute medical concerns or complaints at this time. Patient tells me that she is homeless, is sleeping on the street and did not sleep well last night, can you just go away and let me sleep, I need my rest. Patient denies any suicidal or homicidal ideations and feels safe. She states just give me something before I start to withdrawal Related Data Home Medications Medication Instructions Recorded Confirmed methadone 10 mg/mL oral concentrate 105 mg PO DAILY 01/05/19 08/14/21 Allergies Allergy/AdvReac Type Severity Reaction Status Date / Time Penicillins Allergy Unknown Unverified 08/14/21 04:50 General Stated Complaint: DrugWithdr/MAT PATRICIA: 2 Review of Systems Constitutional Constitutional: Denies fatigue, Denies fever(s) and Denies headache(s) Eyes Eyes: Denies change in vision ENT Ears, Nose, Mouth, and Throat: Denies headache(s) Cardiovascular Cardiovascular: Denies chest pain and Denies dyspnea Respiratory Respiratory: Denies cough and Denies dyspnea Gastrointestinal Gastrointestinal: Denies abdominal pain, Denies nausea and Denies vomiting Musculoskeletal Musculoskeletal: Denies back pain Integumentary/Breasts Skin/Breast: Denies rash Neurologic Neurologic: Denies headache(s) Psychiatric Psychiatric: Reports anxiety, Reports depression, Denies homicidal ideation and Denies suicidal ideation Endocrine Endocrine: Denies fatigue PFSH All Active Problems (Updated 10/28/21 @ 14:35 by FISH Dorsey) Chest pain (Acute) Abdominal pain (Acute) Chest pain (Acute) COVID-19 (Acute) Polysubstance abuse (Acute) Anxiety (Chronic) Eloped from emergency department (Acute) Headache (Acute) Drug reaction (Acute) Bronchitis (Acute) Bronchitis (Acute) Reactive airway disease (Acute) Arm numbness left (Acute) Cough (Acute) Methadone dependence (Acute) Noncompliance with medication regimen (Acute) Endocarditis (Acute) History of intravenous drug abuse (Acute) Frequent headaches (Acute) Lower extremity edema (Acute) Left shoulder pain (Acute) Medical History (Updated 10/28/21 @ 14:35 by FISH Dorsey) Anxiety Bipolar disorder Endocarditis GERD (gastroesophageal reflux disease) Hepatitis C Obesity Surgical History History of heart valve replacement Social History Smoking/Tobacco Use Status: Current every day Tobacco Type: cigarettes Smoking risk assessment performed?: Yes Alcohol Intake: never Drug use: Daily Substance use type: marijuana and crack/cocaine Do you feel safe at home: Yes Do you feel safe in your relationship?: Yes Exam Const General: cooperative, healthy appearing, comfortable, no acute distress and disheveled Orientation: alert, awake and oriented x3 HENMT Head: normal to inspection, normocephalic and atraumatic Face and sinus: normal facial exam Mouth: moist mucous membranes Eyes General: appearance normal, both eyes and all related structures Alignment and Position: alignment normal Periorbital: periorbital findings normal Eyelids: eyelids normal Conjunctivae: conjunctivae normal Sclera: sclerae normal Cornea: corneas normal Pupils: PERRL EOM: EOM intact bilaterally Direct ophthalmoscopy: normal light reflex Neck Neck: normal visual inspection, full ROM, trachea midline, supple and nontender Resp Effort & Inspection: normal respiratory effort and able to speak in complete sentences Auscultation: clear to auscultation bilaterally Cardio Rate: regular rate Rhythm: regular rhythm GI Inspection: normal to inspection Palpation: soft and nontender Back/Spine/Pelvis Back: No back tenderness Skin Rashes: no rashes Neuro General: patient alert, patient awake, patient oriented x3, moves all extremities and no focal motor deficits Cognition: normal cognition Speech: speech normal Gait: normal gait Motor: muscle tone normal throughout and strength 5/5 throughout Sensory Exam: no sensory deficits noted Extrem General: normal to inspection, full ROM and capillary refill normal Psych Appearance: grossly normal Mental Status: mental status grossly normal Course Vital Signs Vital signs: Vital Signs Temperature 36.4 C L 10/28/21 09:58 Pulse 69 10/28/21 09:58 Respiratory Rate 12 10/28/21 09:58 Blood Pressure 121/76 10/28/21 09:58 Pulse Oximetry 98 10/28/21 09:58 Temperature 36.4 C L 10/28/21 09:58 Temperature Source Temporal Artery Scan 10/28/21 09:58 Pulse 79 10/28/21 10:16 Pulse 78 10/28/21 10:16 Respiratory Rate 22 10/28/21 10:16 Respiratory Effort Non-Labored 10/28/21 10:08 Blood Pressure 134/77 10/28/21 10:16 Blood Pressure Mean 91 10/28/21 10:16 Blood Pressure Position Supine 10/28/21 09:58 Pulse Oximetry 100 10/28/21 10:16 Oxygen Delivery Method Room Air 10/28/21 09:58 Oxygen Flow Rate 0 10/28/21 09:58 Lab/Test Results Lab/Test Results: POC- Test(urine) Negative
[2021-10-28 10:54] LABS: Bilirubin Negative (Negative); Blood Negative (Negative); Clarity Sl Cloudy (Clear); Glucose Negative (Negative); Ketones Negative (Negative); Leukocyte Esterase Negative (Negative); Nitrite Negative (Negative); Urobilinogen 0.2 EU/dL (Up TO 0.2); pH 8.5 (5-8)
--- NOTE | 2021-10-28 11:02 | NUR.NOTE ---
Pt awake and calling out for nurse. Warm blankets provided as requested by patient. Questioned pt again if she felt suicidal pt emphatically reports no, my body is just restless!
[2021-10-28] MEDS: diphenhydrAMINE 50 MG/ML VIAL IM (11:15)
[2021-10-28 11:18] LABS: *AMPHETAMINES SCREEN URINE Negative (Negative); *BARBITURATES SCREEN URINE Negative (Negative); *BENZODIAZEPINES SCREEN URINE Negative (Negative); Cannabinoids THC Negative (Negative); Cocaine Screen,Urine Positive (Negative); METHADONE URINE SCREEN Negative (Negative); OPIATES URINE SCREEN Negative (Negative)
--- NOTE | 2021-10-28 11:20 | NUR.NOTE ---
Nursing Note: Spoke gabrielle FERNANDEZ and [facility] and the patient does not have an appointment tomorrow or in the near future. Sarai Hernandez
[2021-10-28 11:22] LABS: Tricyclic Antidepressants Negative (Negative)
--- NOTE | 2021-10-28 12:00 | PDOC.ERCMPRO ---
- If Service Date Differs Date of service: 10/28/21 Time of Service: 12:00 Care Management Progress Note Ina presents in the ED for withdrawal from opiates. At the request of ED provider, ROSALIO briefly meets with her to discuss housing options as she reports being homeless. Upon ROSALIO's arrival in the room, Ina becomes very anxious and demands Ativan or something to help settle her down. She then requests to use the bathroom. While RN is caring for her, ROSALIO telephones [place] to inquire about a housing voucher. Ina subsequently elopes from the ED.
== END 2021-10-28 11:53 | disposition other institution (70) ==
PROVIDERS: Emergency Provider Physician Assistant; PCP Family Medicine
DX: F11.20 Opioid dependence, uncomplicated (principal); F14.10 Cocaine abuse, uncomplicated; Z53.29 Procedure and treatment not carried out because of patient's decision for other reasons
CPT/HCPCS: 80307; 81025; 96372; 99284; 81003; 99283; J1200

== ENCOUNTER 2021-11-08 09:27 | Inpatient (IN) | payer MEDICAID, SELFPAY ==
[2021-11-08 09:54] VITALS: BP 116/73; PULSE 105; RESP 16; TEMP 36.9; O2SAT 97
--- NOTE | 2021-11-08 10:30 | RT.EKG_ITS ---
APPROVED REPORT Exam: Resting ECG Reason for Exam: chest pain Patient Location: E HR:88 bpm ECG Measurements Heart Rate 88 AXIS AR 247 P 64 QRSd 101 QRS 95 QT 374 T 17 QTc 452 Conclusion Sinus rhythm...normal P axis, V-rate 60- 99 Prolonged AR interval...AR >210, V-rate 50- 90 Probable left atrial enlargement...P >50mS, <-0.10mV V1. Sinus. Normal axis. No STEMI. I have reviewed and interpreted ECG and agree with software generated interpretation.
[2021-11-08 11:04] LABS: Lactate 0.4 mmol/L (0.6-1.4)
[2021-11-08 11:05] LABS: Abs Immature Grans 0.05 10^3/uL (0.0-0.06); Absolute Basophil Count 0.05 10^3/uL (0.0-0.2); Absolute Eosinophil Count 0.03 10^3/uL (0.0-0.7); Absolute Lymphocyte Count 1.29 10^3/uL (1.2-3.4); Absolute Monocyte Count 0.49 10^3/uL (0.1-0.8); Basophils % 0.4; Eosinophils % 0.2; HCT 37.8 % (36.0-46.0); HGB 11.8 g/dL (11.2-15.7); Immature Grans % 0.4; Lymphocytes % 9.8; MCH 28.2 pg (27.0-33.0); MCHC 31.2 % (32.0-36.0); MCV 90.2 fL (80-95); MPV 9.9 fL (8.0-11.0); Monocytes % 3.7; Neutrophils % 85.5; Nucleated RBC 0 %; Platelet Count 310 10^3/uL (130-400); RBC 4.19 10^6/uL (3.93-5.22); RDW 13.7 % (11.7-14.6); RDW-SD 45.3 fL; WBC 13.12 10^3/uL (4.4-10.8)
[2021-11-08 11:06] LABS: ESR 12 mm/hr (0-20)
[2021-11-08 11:08] LABS: Absolute Neutrophil Count 11.22 10^3/uL (1.2-6.7)
[2021-11-08 11:15] LABS: Bilirubin Negative (Negative); Blood Negative (Negative); Clarity Clear (Clear); Glucose Negative (Negative); Ketones Negative (Negative); Leukocyte Esterase Negative (Negative); Nitrite Negative (Negative); Specific Gravity >= 1.030 (1.005-1.025); Urobilinogen 0.2 EU/dL (Up TO 0.2)
[2021-11-08 11:20] LABS: C-Reactive Protein 2.65 mg/dL (0.0-0.3)
[2021-11-08 11:23] LABS: ALT 18 U/L (14-59); AST 21 U/L (15-37); Albumin 3.6 g/dL (3.4-5.0); Alkaline Phosphatase 80 U/L (46-116); Anion Gap 6.8 mmol/L (3-11); BUN 11 mg/dL (7-18); Bilirubin, Total 0.4 mg/dL (0.2-1.0); CO2 28.2 mmol/L (21.0-32.0); CREATININE 1.1 mg/dL (0.55-1.02); Calcium 8.5 mg/dL (8.5-10.1); Chloride 103 mmol/L (98-107); Estimated GFR 57.56 (mL/min/1.73m2); Glucose 103 mg/dL (74-106); Magnesium 2.1 mg/dL (1.8-2.4); Potassium 3.7 mmol/L (3.5-5.1); Sodium 138 mmol/L (136-145); Total Protein 7.2 g/dL (6.4-8.2); Troponin I < 50 ng/L (<or=60)
--- NOTE | 2021-11-08 11:35 | ED.GENADUL_ITS ---
Discharge Plan Disposition Condition: Serious Discharge Details Chief Complaint: RashLesion Admit Date/Time: 11/09/21 15:00 Admit Provider: Keke Paredes Attending Provider: Keke Paredes Primary Care Provider: Timothy Bliss ED Provider: Rafael May Discharge Instructions Activity:: Activity as Tolerated Equipment/Supplies:: No Equipment Needed Diet:: As Tolerated Discharge Orders Discharge Orders: Discharge Order (Routine); Ordered 11/09/21 Ordered By: Keke Paredes Discharge Data Discharge Date/Time-TO BE ENTERED AT DEPARTURE: 11/08/21 15:12 Medical Decision Making Patient presenting to the emergency department with chief complaint of lower extremity sores and sores on her hand. She reports that these occurred last time she had endocarditis. She does state that she has been having mild chest pain and shortness of breath the last 6 months. She reports occasional IV drug use but is mainly switched to smoking heroin due to poor vascular access. Patient states intermittent chills. Physical exam shows superficial sores with surrounding erythema to bilateral lower extremities and plantar surface of left index finger. Patient does have a grade 2-3 systolic murmur and otherwise unremarkable exam. Patient is nontoxic and not septic in appearance with no noted fever. I am concerned given patient's history along with IV drug use that this may be early endocarditis versus superficial cellulitis. Given that patient states this is the same as previous episode plan to do full work-up for endocarditis. We will start antibiotics after blood cultures. Review of labs show elevated white count with elevation of neutrophils as well, D-dimer at 576, lactate 8.4, mild elevation of creatinine otherwise unremarkable CMP. ESR within normal range but CRP is 2.5. Urine is negative for infectious findings with only slight elevation of specific gravity. Patient is also . Discussed with patient and she states this is new and that she was unaware that she was as her last menstrual cycle was 2 months ago. Discussed potential imaging including x-ray and CT and risk versus benefit. Patient states that she is not sure if she wants to have any imaging performed even though she has an elevated D-dimer due to . Plan to perform bilateral lower extremity ultrasound. field staff had difficult time obtaining blood cultures and only was able to get 1 set so IV fluids were given to help with some subtle signs of dehydration and hopefully make obtaining blood easier. Given complicated course did discuss case with Dr. Paredes who after discussion agrees with plan to have patient admitted for IV antibiotics pending blood cultures, consideration of echo when available, and continued monitoring of patient's condition. Discussed this plan with patient and she is agreeable for admission. HPI General Mode of arrival: ambulatory . Date/Time Provider Initiated Documentation: 11/08/21 09:30 . Limitations to Documentation: no limitations . Information obtained by: patient . History of Present Illness 31 year old F presents to the emergency department with the chief complaint of leg sores, described as moderate, with intensity rated at 7. Quality is described as aching, and is localized to the upper extremity and lower extremity. Patient reports no radiation. Patient started experiencing this day(s) (6) and it has been constant. improves with No relieving factors improve symptom(s), No exacerbating factors reported . Patient notes chest pain, malaise and shortness of breath. Patient did receive the following treatments prior to arrival, none Related Data Home Medications Medication Instructions Recorded Confirmed dexmethylphenidate 20 mg 20 mg PO QPM 11/08/21 11/08/21 capsule,extended release [id number] (Focalin XR) dexmethylphenidate 30 mg 30 mg PO DAILY 11/08/21 11/08/21 capsule,extended release [id number] (Focalin XR) gabapentin 800 mg tablet 800 mg PO TID 11/08/21 11/08/21 lorazepam 0.5 mg tablet 0.5 mg PO BID 11/08/21 11/08/21 ampicillin 500 mg capsule 500 mg PO QID #42 cap 11/09/21 Previous Rx's Medication Instructions Recorded ampicillin 500 mg capsule 500 mg PO QID #42 cap 11/09/21 General Stated Complaint: RashLesion PATRICIA: 3 Review of Systems Constitutional Constitutional: Reports chills, Denies headache(s) and Reports malaise ENT Ears, Nose, Mouth, and Throat: Denies dizziness, Denies headache(s) and Denies neck pain Cardiovascular Cardiovascular: Reports chest pain, Denies syncope, Denies palpitations and Reports dyspnea Respiratory Respiratory: Reports cough and Reports dyspnea Gastrointestinal Gastrointestinal: Denies abdominal pain, Denies diarrhea, Denies nausea and Denies vomiting Musculoskeletal Musculoskeletal: Denies back pain, Denies joint swelling and Denies neck pain Integumentary/Breasts Skin/Breast: Reports as per HPI, Reports new lesions, Reports skin pain, Reports skin swelling and Reports wounds Neurologic Neurologic: Denies dizziness, Denies syncope and Denies headache(s) Endocrine Endocrine: Denies palpitations PFSH All Active Problems (Updated 11/10/21 @ 00:04 by NADER HOOPER) Early stage of (Acute) Abscess of left index finger (Acute) Sepsis (Acute) (Acute) Cellulitis (Acute) Chest pain (Acute) Abdominal pain (Acute) Chest pain (Acute) COVID-19 (Acute) Polysubstance abuse (Chronic) Anxiety (Chronic) Eloped from emergency department (Acute) Headache (Acute) Drug reaction (Acute) Bronchitis (Acute) Bronchitis (Acute) Reactive airway disease (Acute) Arm numbness left (Acute) Cough (Acute) Methadone dependence (Chronic) Noncompliance with medication regimen (Acute) Endocarditis (Acute) History of intravenous drug abuse (Acute) Frequent headaches (Acute) Lower extremity edema (Acute) Left shoulder pain (Acute) Medical History Anxiety Bipolar disorder Endocarditis GERD (gastroesophageal reflux disease) Hepatitis C History of recurrent UTIs Iron deficiency anemia IV drug abuse Nephrolithiasis Obesity Surgical History S/P ERCP S/P laparoscopic cholecystectomy S/P mitral valve replacement 4 years ago at [facility] Family History Father Substance use disorder Social History Smoking/Tobacco Use Status: Current every day Tobacco Type: cigarettes Smoking risk assessment performed?: Yes Alcohol Intake: never Drug use: Daily Substance use type: marijuana and crack/cocaine Do you feel safe at home: Yes Do you feel safe in your relationship?: Yes Exam Const General: cooperative, healthy appearing, comfortable and no acute distress Nutritional Appearance: average body habitus Orientation: alert, awake and oriented x3 Limitations: mental status not altered Neck Neck: normal visual inspection Carotids: normal carotid upstroke and no bruits Resp Effort & Inspection: normal respiratory effort and able to speak in complete sentences Auscultation: clear to auscultation bilaterally Cardio Jugular venous pressure: no JVD Palpation: normal PMI Rate: regular rate Rhythm: regular rhythm Heart Sounds: murmur systolic II/ and III/ Bruits: no abdominal aortic bruits and no carotid bruits Pulses: radial pulses present GI Inspection: normal to inspection Palpation: soft and nontender Auscultation: normal bowel sounds Skin Wounds: wounds noted (Bilateral lower extremities with surrounding erythema and left index finger) Neuro General: patient alert, patient awake, patient oriented x3, tone normal and moves all extremities Course Vital Signs Vital signs: Vital Signs Temperature 36.9 C 11/08/21 09:54 Pulse 105 H 11/08/21 09:54 Respiratory Rate 16 11/08/21 09:54 Blood Pressure 116/73 11/08/21 09:54 Pulse Oximetry 97 11/08/21 09:54 Temperature 36.9 C 11/08/21 09:54 Temperature Source Skin 11/08/21 09:54 Pulse 105 H 11/08/21 09:54 Respiratory Rate 16 11/08/21 09:54 Respiratory Effort 11/08/21 09:54 Blood Pressure 116/73 11/08/21 09:54 Blood Pressure Position Sitting 11/08/21 09:54 Pulse Oximetry 97 11/08/21 09:54 Oxygen Delivery Method Room Air 11/08/21 09:54 Oxygen Flow Rate 0 11/08/21 09:54 Pain Level 8 11/08/21 09:54 Lab/Test Results Lab/Test Results: 11/08/21 10:55 Blood Blood Culture - Pending 11/08/21 10:26 Blood Blood Culture - Pending 11/08/21 10:26 Blood Blood Culture - Pending Laboratory Tests Range/Units 11/08/21 11/08/21 11/08/21 10:53 10:53 10:53 WBC (4.4-10.8) 10^3/uL RBC (3.93-5.22) 10^6/uL Hgb (11.2-15.7) g/dL Hct (36.0-46.0) % MCV (80-95) fL MCH (27.0-33.0) pg MCHC (32.0-36.0) % RDW (11.7-14.6) % Plt Count (130-400) 10^3/uL MPV (8.0-11.0) fL Immature Gran % Neutrophils % Lymphocytes % Monocytes % Eosinophils % Basophils % Nucleated RBC % % Absolute Neutrophils (1.2-6.7) 10^3/uL Absolute Lymphocytes (1.2-3.4) 10^3/uL Absolute Monocytes (0.1-0.8) 10^3/uL Absolute Eosinophils (0.0-0.7) 10^3/uL Absolute Basophils (0.0-0.2) 10^3/uL ESR (0-20) mm/hr 12 VBG Lactate (0.6-1.4) mmol/L 0.4 L Sodium (136-145) mmol/L Potassium (3.5-5.1) mmol/L Chloride (98-107) mmol/L Carbon Dioxide (21.0-32.0) mmol/L Anion Gap (3-11) mmol/L BUN (7-18) mg/dL Creatinine (0.55-1.02) mg/dL Estimated GFR/1.73 m2 (mL/min/1.73m2) Glucose (74-106) mg/dL Calcium (8.5-10.1) mg/dL Magnesium (1.8-2.4) mg/dL Total Bilirubin (0.2-1.0) mg/dL AST (15-37) U/L ALT (14-59) U/L Alkaline Phosphatase (46-116) U/L Troponin I (<or=60) ng/L C-Reactive Protein (0.0-0.3) mg/dL 2.65 H Total Protein (6.4-8.2) g/dL Albumin (3.4-5.0) g/dL Urine Color (Yellow) Urine Clarity (Clear) Urine pH (5-8) Ur Specific [place] (1.005-1.025) Urine Protein (Negative) mg/dL Urine Ketones (Negative) mg/dL Urine Blood (Negative) Urine Nitrite (Negative) Urine Bilirubin (Negative) Urine Urobilinogen (Up TO 0.2) EU/dL Ur Leukocyte Esterase (Negative) Urine Glucose (Negative) mg/dL Range/Units 11/08/21 11/08/21 11/08/21 10:53 10:53 11:11 WBC (4.4-10.8) 10^3/uL 13.12 H RBC (3.93-5.22) 10^6/uL 4.19 Hgb (11.2-15.7) g/dL 11.8 Hct (36.0-46.0) % 37.8 MCV (80-95) fL 90.2 MCH (27.0-33.0) pg 28.2 MCHC (32.0-36.0) % 31.2 L RDW (11.7-14.6) % 13.7 Plt Count (130-400) 10^3/uL 310 MPV (8.0-11.0) fL 9.9 Immature Gran % 0.4 Neutrophils % 85.5 Lymphocytes % 9.8 Monocytes % 3.7 Eosinophils % 0.2 Basophils % 0.4 Nucleated RBC % % 0 Absolute Neutrophils (1.2-6.7) 10^3/uL 11.22 H Absolute Lymphocytes (1.2-3.4) 10^3/uL 1.29 Absolute Monocytes (0.1-0.8) 10^3/uL 0.49 Absolute Eosinophils (0.0-0.7) 10^3/uL 0.03 Absolute Basophils (0.0-0.2) 10^3/uL 0.05 ESR (0-20) mm/hr VBG Lactate (0.6-1.4) mmol/L Sodium (136-145) mmol/L 138 Potassium (3.5-5.1) mmol/L 3.7 Chloride (98-107) mmol/L 103 Carbon Dioxide (21.0-32.0) mmol/L 28.2 Anion Gap (3-11) mmol/L 6.8 BUN (7-18) mg/dL 11 Creatinine (0.55-1.02) mg/dL 1.1 H Estimated GFR/1.73 m2 (mL/min/1.73m2) 57.56 Glucose (74-106) mg/dL 103 Calcium (8.5-10.1) mg/dL 8.5 Magnesium (1.8-2.4) mg/dL 2.1 Total Bilirubin (0.2-1.0) mg/dL 0.4 AST (15-37) U/L 21 ALT (14-59) U/L 18 Alkaline Phosphatase (46-116) U/L 80 Troponin I (<or=60) ng/L < 50 C-Reactive Protein (0.0-0.3) mg/dL Total Protein (6.4-8.2) g/dL 7.2 Albumin (3.4-5.0) g/dL 3.6 Urine Color (Yellow) Yellow Urine Clarity (Clear) Clear Urine pH (5-8) 7.0 Ur Specific [place] (1.005-1.025) >= 1.030 H Urine Protein (Negative) mg/dL Negative Urine Ketones (Negative) mg/dL Negative Urine Blood (Negative) Negative Urine Nitrite (Negative) Negative Urine Bilirubin (Negative) Negative Urine Urobilinogen (Up TO 0.2) EU/dL 0.2 Ur Leukocyte Esterase (Negative) Negative Urine Glucose (Negative) mg/dL Negative POC- Test(urine) Positive
[2021-11-08 11:36] LABS: D-Dimer 576 ng/mlFEU (<500)
[2021-11-08] MEDS: Normal Saline 1,000 ML 1000 ML IV (12:07)
--- NOTE | 2021-11-08 13:00 | DI.US_ITS ---
Exam(s) US EXTREMITY VENOUS BI EXAM: US EXTREMITY VENOUS BI CLINICAL HISTORY: right thigh pain. TECHNIQUE: Ultrasound performed using standard protocol. COMPARISON: US Cardiac from 12/07/2017 FINDINGS: Duplex venous ultrasound was performed according to the usual protocol. The deep veins are freely com pressible throughout and there is normal flow augmentation with manual calf compression. 2D and Doppl er evaluation are unremarkable. IMPRESSION: No evidence of deep venous thrombosis of the right or left lower extremity. DATA REPOSITORY:
[2021-11-08 13:02] VITALS: BP 116/71; PULSE 84; RESP 18; TEMP 36.6; O2SAT 99
[2021-11-08 13:51] LABS: Source Nasal/Nares
[2021-11-08 14:09] LABS: *AMPHETAMINES SCREEN URINE Negative (Negative); *BARBITURATES SCREEN URINE Negative (Negative); *BENZODIAZEPINES SCREEN URINE Negative (Negative); Cannabinoids THC Positive (Negative); Cocaine Screen,Urine Positive (Negative); METHADONE URINE SCREEN Negative (Negative); OPIATES URINE SCREEN Negative (Negative); Tricyclic Antidepressants Negative (Negative)
[2021-11-08 14:20] LABS: Procalcitonin 0.1 ng/mL
--- NOTE | 2021-11-08 14:25 | W.PM.HP.N ---
Date of service: 11/08/21 Time of Service: 15:50 Assessment and Plan Assessment and plan (1) Sepsis: Status: Acute Assessment and plan: Suspected bacteremia and possible recurrent endocarditis, given h/o bioprosthetic valve. Blood cultures obtained. Will empirically treat with vancomycin/ceftriaxone. The patient has a h/o enterococcal infection which was sensitive to vancomycin at that time. Additionally, I am concerned about possible abscess 2nd digit L hand as well as her back pain. Given the fact that the patient is and results of my discussion with Dr Carrizales of [employer] and with Dr De Los Santos, I feel that an MRI might be the best imaging study to evaluate the lower back pain - will obtain a noncontrast MRI on Wednesday. I recognize that a noncontrast study is not ideal, but would be a good first step given the fact that the patient is . (2) Cellulitis: Status: Acute Assessment and plan: Multiple infected lesions RLE>LLE as well as LUE - specifically, 2nd digit L hand. I think these lesions resemble skin popping. Start empiric ceftriaxone/vancomycin while awaiting blood culture results. Concern for endocarditis - obtain echo. (3) S/P mitral valve replacement: Assessment and plan: As above (4) Methadone dependence: Status: Acute Assessment and plan: Risk/benefit of continuing methadone therapy need to be weighed. Discussed with Dr Carrizales of [employer] - will continue methadone for now, verify dose with [facility]. (5) Bipolar disorder: Assessment and plan: Continue psychiatric medications - reviewed these with Dr Carrizales. (6) : Status: Acute Assessment and plan: [employer] consulted. Obtaining US pelvic/transvaginal to confirm viability of . (7) Polysubstance abuse: Status: Acute Assessment and plan: As above Continue methadone. Cocaine + on UDS. The patient admits to snorting it. (8) DVT prophylaxis: Status: Acute Assessment and plan: SC lovenox (9) Discharge planning issues: Status: Acute Assessment and plan: Full code History of Present Illness History of Present Illness Chief Complaint: Lesions on B legs and LUE just like when she had endocarditis Narrative: Ms Orellana is a 31 year old female with PMHx of prior infective endocarditis s/p valve replacement as well as h/o IVD, currently on methadone therapy through [facility] (states she is on 40 mg daily), Hep C, reactive airway disease, who presented to [facility] ED today w/ c/o LUE/BLE lesions just like when she had endocarditis. Sx started 5 days ago. She is reporting a pain in her entire LLE and in her 2nd digit LUE for about that same length of time.She also has lower back pain since this morning. She denies loss of control of bowel/bladder, saddle anesthesia, numbness/tingling in her legs. She does endorse some numbness in her 2nd digit LUE. Found to have a positive test - the patient was unaware of this prior to presentation to the ED. ER w/u with leucocytosis and elevated d-dimer. Venous dopplers of BLEs ruled out a DVT. The patient was initiated on empiric vancomycin/ceftriaxone. Hospitalist admission was requested. Review of Systems Narrative: Additionally, endorses a headache and nasal congestion - from withdrawal. Denies photophobia, neck pain, chest pain, shortness of breath. All systems reviewed & are unremarkable except as noted in HPI and below PFSH All Active Problems (Updated 11/08/21 @ 16:32 by Keke Paredes MD) Sepsis (Acute) (Acute) Discharge planning issues (Acute) DVT prophylaxis (Acute) Cellulitis (Acute) Chest pain (Acute) Abdominal pain (Acute) Chest pain (Acute) COVID-19 (Acute) Polysubstance abuse (Acute) Anxiety (Chronic) Eloped from emergency department (Acute) Headache (Acute) Drug reaction (Acute) Bronchitis (Acute) Bronchitis (Acute) Reactive airway disease (Acute) Arm numbness left (Acute) Cough (Acute) Methadone dependence (Acute) Noncompliance with medication regimen (Acute) Endocarditis (Acute) History of intravenous drug abuse (Acute) Frequent headaches (Acute) Lower extremity edema (Acute) Left shoulder pain (Acute) Medical History (Updated 11/08/21 @ 16:32 by Keke Paredes MD) Anxiety Bipolar disorder Endocarditis GERD (gastroesophageal reflux disease) Hepatitis C History of recurrent UTIs Iron deficiency anemia IV drug abuse Nephrolithiasis Obesity Surgical History (Updated 11/08/21 @ 16:27 by Keke Paredes MD) S/P ERCP S/P laparoscopic cholecystectomy S/P mitral valve replacement 4 years ago at [facility] Family History (Updated 11/08/21 @ 14:33 by Keke Paredes MD) Father Substance use disorder Social History Smoking/Tobacco Use Status: Current every day Tobacco Type: cigarettes Smoking risk assessment performed?: Yes Alcohol Intake: never Drug use: Daily Substance use type: marijuana and crack/cocaine Do you feel safe at home: Yes Do you feel safe in your relationship?: Yes Meds Allergies and Home Medications Allergies Allergy/AdvReac Type Severity Reaction Status Date / Time Penicillins Allergy Unknown Unverified 11/08/21 10:00 Home Medications Medication Instructions Recorded Confirmed Type methadone 10 mg/mL oral concentrate 40 mg PO DAILY 01/05/19 11/08/21 History dexmethylphenidate 20 mg 20 mg PO QPM 11/08/21 11/08/21 History capsule,extended release [id number] (Focalin XR) dexmethylphenidate 30 mg 30 mg PO DAILY 11/08/21 11/08/21 History capsule,extended release [id number] (Focalin XR) gabapentin 800 mg tablet 800 mg PO TID 11/08/21 11/08/21 History lorazepam 0.5 mg tablet 0.5 mg PO BID 11/08/21 11/08/21 History Exam Narrative Exam Narrative: General: Anxious female who is having rigors while I am in the room, concurrently eating crackers and drinking jessica natalia, A&Ox3 Neurological: A&Ox3, ?numbness 2nd digit LUE, otherwise no focal deficits Psychiatric: Anxious, impulsive Skin: Erythematous lesions on RLE>LLE c/w cellulitis, erythematous lesion 2nd digit LUE with associated swelling and pain HEENT: Atraumatic, normocephalic, EOMI, MMM, patient eating during exam - oropharyngeal exam deferred, No submandibular or cervical lymphadenopathy, no goiter or JVD Cardiovascular: RRR, + MUSA Lungs: coarse breath sounds B Gastrointestinal: soft, nontender, nondistended Genitourinary: deferred Extremities: See skin exam above, +1 pedal pulses B; LUE - hand ROM limited by pain in 2nd digit. Results Imaging Additional studies: Venous Dopplers BLE's: No evidence of deep venous thrombosis of the right or left lower extremity. EKG: NSR, HR 88, prologed NV interval, L atrial enlargement Labs Result diagrams: 11/08/21 10:53 11/08/21 10:53 Labs: Laboratory Results - last 24 hr 11/08/21 11/08/21 11/08/21 10:53 10:53 10:53 WBC RBC Hgb Hct MCV MCH MCHC RDW Plt Count MPV Immature Gran % Neutrophils % Lymphocytes % Monocytes % Eosinophils % Basophils % Nucleated RBC % Absolute Neutrophils Absolute Lymphocytes Absolute Monocytes Absolute Eosinophils Absolute Basophils ESR 12 D-Dimer VBG Lactate 0.4 L Sodium Potassium Chloride Carbon Dioxide Anion Gap BUN Creatinine Estimated GFR/1.73 m2 Glucose Calcium Magnesium Total Bilirubin AST ALT Alkaline Phosphatase Troponin I C-Reactive Protein 2.65 H Total Protein Albumin Procalcitonin Urine Color Urine Clarity Urine pH Ur Specific [place] Urine Protein Urine Ketones Urine Blood Urine Nitrite Urine Bilirubin Urine Urobilinogen Ur Leukocyte Esterase Urine Glucose Urine Opiates Screen Urine Methadone Screen Ur Barbiturates Screen Ur Tricyclics Screen Ur Amphetamines Screen U Benzodiazepines Scrn Urine Cocaine Screen Ur THC Screen COVID-19 Source 11/08/21 11/08/21 11/08/21 10:53 10:53 10:53 WBC 13.12 H RBC 4.19 Hgb 11.8 Hct 37.8 MCV 90.2 MCH 28.2 MCHC 31.2 L RDW 13.7 Plt Count 310 MPV 9.9 Immature Gran % 0.4 Neutrophils % 85.5 Lymphocytes % 9.8 Monocytes % 3.7 Eosinophils % 0.2 Basophils % 0.4 Nucleated RBC % 0 Absolute Neutrophils 11.22 H Absolute Lymphocytes 1.29 Absolute Monocytes 0.49 Absolute Eosinophils 0.03 Absolute Basophils 0.05 ESR D-Dimer 576 H VBG Lactate Sodium 138 Potassium 3.7 Chloride 103 Carbon Dioxide 28.2 Anion Gap 6.8 BUN 11 Creatinine 1.1 H Estimated GFR/1.73 m2 57.56 Glucose 103 Calcium 8.5 Magnesium 2.1 Total Bilirubin 0.4 AST 21 ALT 18 Alkaline Phosphatase 80 Troponin I < 50 C-Reactive Protein Total Protein 7.2 Albumin 3.6 Procalcitonin Urine Color Urine Clarity Urine pH Ur Specific [place] Urine Protein Urine Ketones Urine Blood Urine Nitrite Urine Bilirubin Urine Urobilinogen Ur Leukocyte Esterase Urine Glucose Urine Opiates Screen Urine Methadone Screen Ur Barbiturates Screen Ur Tricyclics Screen Ur Amphetamines Screen U Benzodiazepines Scrn Urine Cocaine Screen Ur THC Screen COVID-19 Source 03/01/2511/08/21 11/08/21 10:53 11:00 11:11 WBC RBC Hgb Hct MCV MCH MCHC RDW Plt Count MPV Immature Gran % Neutrophils % Lymphocytes % Monocytes % Eosinophils % Basophils % Nucleated RBC % Absolute Neutrophils Absolute Lymphocytes Absolute Monocytes Absolute Eosinophils Absolute Basophils ESR D-Dimer VBG Lactate Sodium Potassium Chloride Carbon Dioxide Anion Gap BUN Creatinine Estimated GFR/1.73 m2 Glucose Calcium Magnesium Total Bilirubin AST ALT Alkaline Phosphatase Troponin I C-Reactive Protein Total Protein Albumin Procalcitonin 0.1 Urine Color Yellow Urine Clarity Clear Urine pH 7.0 Ur Specific [place] >= 1.030 H Urine Protein Negative Urine Ketones Negative Urine Blood Negative Urine Nitrite Negative Urine Bilirubin Negative Urine Urobilinogen 0.2 Ur Leukocyte Esterase Negative Urine Glucose Negative Urine Opiates Screen Negative Urine Methadone Screen Negative Ur Barbiturates Screen Negative Ur Tricyclics Screen Negative Ur Amphetamines Screen Negative U Benzodiazepines Scrn Negative Urine Cocaine Screen Positive A Ur THC Screen Positive A COVID-19 Source 11/08/21 13:43 WBC RBC Hgb Hct MCV MCH MCHC RDW Plt Count MPV Immature Gran % Neutrophils % Lymphocytes % Monocytes % Eosinophils % Basophils % Nucleated RBC % Absolute Neutrophils Absolute Lymphocytes Absolute Monocytes Absolute Eosinophils Absolute Basophils ESR D-Dimer VBG Lactate Sodium Potassium Chloride Carbon Dioxide Anion Gap BUN Creatinine Estimated GFR/1.73 m2 Glucose Calcium Magnesium Total Bilirubin AST ALT Alkaline Phosphatase Troponin I C-Reactive Protein Total Protein Albumin Procalcitonin Urine Color Urine Clarity Urine pH Ur Specific [place] Urine Protein Urine Ketones Urine Blood Urine Nitrite Urine Bilirubin Urine Urobilinogen Ur Leukocyte Esterase Urine Glucose Urine Opiates Screen Urine Methadone Screen Ur Barbiturates Screen Ur Tricyclics Screen Ur Amphetamines Screen U Benzodiazepines Scrn Urine Cocaine Screen Ur THC Screen COVID-19 Source Nasal/Nares Last Vital Signs Temp 36.6 C 11/08/21 13:02 Pulse 84 11/08/21 13:02 Resp 18 11/08/21 13:02 BP 116/71 11/08/21 13:02 Pulse Ox 99 11/08/21 13:02
[2021-11-08 14:30] LABS: COVID-19 PCR Negative (Negative)
[2021-11-08] MEDS: cefTRIAXone 2 GM/50 ML BAG IVPB (15:05)
[2021-11-08 15:14] VITALS: BP 111/66; PULSE 89; RESP 20; TEMP 36.5; O2SAT 100
[2021-11-08 15:30] VITALS: BP 128/84; PULSE 99; RESP 16; TEMP 38.8; O2SAT 99
[2021-11-08] MEDS: Normal Saline Flush 10 ML SYR IVP (15:46)
[2021-11-08] MEDS: Enoxaparin 40 MG/0.4 ML SYR SC (15:46)
[2021-11-08] MEDS: VANCOMYCIN 1,000 MG in Normal Saline 250 ML 166.667 MG IVPB (15:46)
[2021-11-08] MEDS: Acetaminophen 325 MG TAB PO (15:47)
[2021-11-08 16:03] LABS: Lab Add On Test DONE
[2021-11-08 16:05] VITALS: BP 128/84; PULSE 99; RESP 16; TEMP 38.8; O2SAT 99
[2021-11-08] MEDS: Methadone Liquid 10 MG/ML 40 MG PO (17:45)
--- NOTE | 2021-11-08 18:08 | OCONE_ITS ---
Date of service: 11/08/21 Time of Service: 16:45 History of Present Illness History of Present Illness Chief Complaint: Left Index Finger Swelling/Pain Narrative: Ina is a 31-year-old female with a complex past medical history. She has a history of endocarditis and is status post valve replacement with a bioprosthetic valve. She is an active IV drug user although she states that she mostly smokes substances since she has such poor access. She presented to the emergency department today for multiple lesions of her bilateral lower extremities as well as her left index finger. These started 4 to 5 days ago although she really is unable to give much more detail beyond that. She reports having similar type lesions during her last episode of endocarditis. She reports pain throughout both legs as well as majority of her left arm. She does focus in the left index finger but is unable to specify exactly the epicenter of the pain although there is an obvious area of swelling about the proximal phalanx of the left index finger. She is unable to give any history to this although there is a blackened area in the center of this area of fluctuance. She reports global dysesthesias about the hand and the finger although not specific. She has had no drainage from the finger. She has been able to use the finger although with pain. She is admitted to the hospitalist service who is also working her up for her multiple lesions about her bilateral lower extremities as well as her back pain. She is suspected to have bacteremia and endocarditis and is also being worked up for this in addition to the above. Consults Consult date: 11/08/21 Requesting physician: Keke Paredes Consult Reason Left Index Finger Infection Assessment and Plan Assessment and plan (1) Abscess of left index finger: Status: Acute Assessment and plan: Ina is a 31-year-old who has what appears to be a focal cellulitis and likely abscess about the palmar aspect of the left index finger, overlying the proximal phalanx. At this point, I do not think it represents a flexor tenosynovitis. She does not have fusiform swelling. She is able to actively flex and extend the finger and I am able to passively extend. Does cause pain but is focused at the level of the proximal phalanx where there is notable fluctuance. The remainder of the finger does not appear to be affected. It is possible this may require an irrigation and debridement but may be able to be performed at the bedside. I think the first step is treating with antibiotics which she is currently on. She has multiple other source of infection and therefore will need to treat all this systemically with IV antibiotics. I would continue to observe it at this time and it very well may require something in the near future but I do not think represents a purulent flexor tenosynovitis which would be more of a surgical urgency. I think is important that we understand her other medical issues during this admission and I will continue to follow along. Review of Systems All systems reviewed & are unremarkable except as noted in HPI and below PFSH All Active Problems (Updated 11/08/21 @ 18:18 by Timothy De Los Santos MD) Abscess of left index finger (Acute) Sepsis (Acute) (Acute) Discharge planning issues (Acute) DVT prophylaxis (Acute) Cellulitis (Acute) Chest pain (Acute) Abdominal pain (Acute) Chest pain (Acute) COVID-19 (Acute) Polysubstance abuse (Acute) Anxiety (Chronic) Eloped from emergency department (Acute) Headache (Acute) Drug reaction (Acute) Bronchitis (Acute) Bronchitis (Acute) Reactive airway disease (Acute) Arm numbness left (Acute) Cough (Acute) Methadone dependence (Acute) Noncompliance with medication regimen (Acute) Endocarditis (Acute) History of intravenous drug abuse (Acute) Frequent headaches (Acute) Lower extremity edema (Acute) Left shoulder pain (Acute) Medical History Anxiety Bipolar disorder Endocarditis GERD (gastroesophageal reflux disease) Hepatitis C History of recurrent UTIs Iron deficiency anemia IV drug abuse Nephrolithiasis Obesity Surgical History S/P ERCP S/P laparoscopic cholecystectomy S/P mitral valve replacement 4 years ago at [facility] Family History Father Substance use disorder Social History Smoking/Tobacco Use Status: Current every day Tobacco Type: cigarettes Smoking risk assessment performed?: Yes Alcohol Intake: never Drug use: Daily Substance use type: marijuana and crack/cocaine Do you feel safe at home: Yes Do you feel safe in your relationship?: Yes Exam Narrative Exam Narrative: Laying supine in the hospital bed. Moaning upon entrance into the room. Alert and oriented x3. Appears uncomfortable. Evaluation of the left upper extremity shows some old scabs throughout the left upper extremity and other areas of scarring. However, there is a focal area of swelling and mild erythema to the palmar aspect of the left index finger overlying the proximal phalanx. The palm is soft. The middle phalanx and distal phalanx regions both palmarly and dorsally are also soft. While she has generalized pain throughout she does not seem to have any exacerbation of pain with palpation along the flexor tendon outside of this proximal phalanx region. She is able to flex the finger and extended. There is not fusiform swelling. There is a central area which appears somewhat black or deep purple color few millimeters in diameter that looks to be a potentially old laceration or puncture site. No streaking erythema up the arm. No palpable lymphadenopathy. Palpable radial pulse. Results Last Vital Signs Temp 38.8 C H 11/08/21 16:05 Pulse 99 H 11/08/21 16:05 Resp 16 11/08/21 16:05 BP 128/84 11/08/21 16:05 Pulse Ox 99 11/08/21 16:05 Labs Result diagrams: 11/08/21 10:53 11/08/21 10:53 Labs: Laboratory Results - last 24 hr 11/08/21 11/08/21 11/08/21 10:53 10:53 10:53 WBC RBC Hgb Hct MCV MCH MCHC RDW Plt Count MPV Immature Gran % Neutrophils % Lymphocytes % Monocytes % Eosinophils % Basophils % Nucleated RBC % Absolute Neutrophils Absolute Lymphocytes Absolute Monocytes Absolute Eosinophils Absolute Basophils ESR 12 D-Dimer VBG Lactate 0.4 L Sodium Potassium Chloride Carbon Dioxide Anion Gap BUN Creatinine Estimated GFR/1.73 m2 Glucose Calcium Magnesium Total Bilirubin AST ALT Alkaline Phosphatase Troponin I C-Reactive Protein 2.65 H Total Protein Albumin Procalcitonin Urine Color Urine Clarity Urine pH Ur Specific [place] Urine Protein Urine Ketones Urine Blood Urine Nitrite Urine Bilirubin Urine Urobilinogen Ur Leukocyte Esterase Urine Glucose Urine Opiates Screen Urine Methadone Screen Ur Barbiturates Screen Ur Tricyclics Screen Ur Amphetamines Screen U Benzodiazepines Scrn Urine Cocaine Screen Ur THC Screen COVID-19 Source SARS-CoV-2 (PCR) Add-On Test Request 0311/08/21 11/08/21 10:53 10:53 10:53 WBC 13.12 H RBC 4.19 Hgb 11.8 Hct 37.8 MCV 90.2 MCH 28.2 MCHC 31.2 L RDW 13.7 Plt Count 310 MPV 9.9 Immature Gran % 0.4 Neutrophils % 85.5 Lymphocytes % 9.8 Monocytes % 3.7 Eosinophils % 0.2 Basophils % 0.4 Nucleated RBC % 0 Absolute Neutrophils 11.22 H Absolute Lymphocytes 1.29 Absolute Monocytes 0.49 Absolute Eosinophils 0.03 Absolute Basophils 0.05 ESR D-Dimer 576 H VBG Lactate Sodium 138 Potassium 3.7 Chloride 103 Carbon Dioxide 28.2 Anion Gap 6.8 BUN 11 Creatinine 1.1 H Estimated GFR/1.73 m2 57.56 Glucose 103 Calcium 8.5 Magnesium 2.1 Total Bilirubin 0.4 AST 21 ALT 18 Alkaline Phosphatase 80 Troponin I < 50 C-Reactive Protein Total Protein 7.2 Albumin 3.6 Procalcitonin Urine Color Urine Clarity Urine pH Ur Specific [place] Urine Protein Urine Ketones Urine Blood Urine Nitrite Urine Bilirubin Urine Urobilinogen Ur Leukocyte Esterase Urine Glucose Urine Opiates Screen Urine Methadone Screen Ur Barbiturates Screen Ur Tricyclics Screen Ur Amphetamines Screen U Benzodiazepines Scrn Urine Cocaine Screen Ur THC Screen COVID-19 Source SARS-CoV-2 (PCR) Add-On Test Request 11/08/21 11/08/21 11/08/21 10:53 11:00 11:00 WBC RBC Hgb Hct MCV MCH MCHC RDW Plt Count MPV Immature Gran % Neutrophils % Lymphocytes % Monocytes % Eosinophils % Basophils % Nucleated RBC % Absolute Neutrophils Absolute Lymphocytes Absolute Monocytes Absolute Eosinophils Absolute Basophils ESR D-Dimer VBG Lactate Sodium Potassium Chloride Carbon Dioxide Anion Gap BUN Creatinine Estimated GFR/1.73 m2 Glucose Calcium Magnesium Total Bilirubin AST ALT Alkaline Phosphatase Troponin I C-Reactive Protein Total Protein Albumin Procalcitonin 0.1 Urine Color Urine Clarity Urine pH Ur Specific [place] Urine Protein Urine Ketones Urine Blood Urine Nitrite Urine Bilirubin Urine Urobilinogen Ur Leukocyte Esterase Urine Glucose Urine Opiates Screen Negative Urine Methadone Screen Negative Ur Barbiturates Screen Negative Ur Tricyclics Screen Negative Ur Amphetamines Screen Negative U Benzodiazepines Scrn Negative Urine Cocaine Screen Positive A Ur THC Screen Positive A COVID-19 Source SARS-CoV-2 (PCR) Add-On Test Request DONE 11/08/21 11/08/21 11:11 13:43 WBC RBC Hgb Hct MCV MCH MCHC RDW Plt Count MPV Immature Gran % Neutrophils % Lymphocytes % Monocytes % Eosinophils % Basophils % Nucleated RBC % Absolute Neutrophils Absolute Lymphocytes Absolute Monocytes Absolute Eosinophils Absolute Basophils ESR D-Dimer VBG Lactate Sodium Potassium Chloride Carbon Dioxide Anion Gap BUN Creatinine Estimated GFR/1.73 m2 Glucose Calcium Magnesium Total Bilirubin AST ALT Alkaline Phosphatase Troponin I C-Reactive Protein Total Protein Albumin Procalcitonin Urine Color Yellow Urine Clarity Clear Urine pH 7.0 Ur Specific [place] >= 1.030 H Urine Protein Negative Urine Ketones Negative Urine Blood Negative Urine Nitrite Negative Urine Bilirubin Negative Urine Urobilinogen 0.2 Ur Leukocyte Esterase Negative Urine Glucose Negative Urine Opiates Screen Urine Methadone Screen Ur Barbiturates Screen Ur Tricyclics Screen Ur Amphetamines Screen U Benzodiazepines Scrn Urine Cocaine Screen Ur THC Screen COVID-19 Source Nasal/Nares SARS-CoV-2 (PCR) Negative Add-On Test Request
[2021-11-08 18:33] VITALS: BP 110/66; PULSE 90; RESP 18; TEMP 38; O2SAT 97
--- NOTE | 2021-11-09 | DI.US_ITS ---
Exam(s) US OB 1ST TRIMESTER EXAM: US OB 1ST TRIMESTER CLINICAL HISTORY: positive test; confirm viability TECHNIQUE: Ultrasound performed using standard protocol. COMPARISON: US US EXTREMITY VENOUS BI from 11/08/2021 FINDINGS: Ob ultrasound was performed utilizing 1st trimester protocol. Uterus measures 7.4 x 4.8 x 4.9 cm. R ight ovary measures 28 x 25 x 13 millimeters and left ovary measures 28 x 3 x 25 millimeters. There is a small fluid collection in the uterine fundus, possible early gestation sac, this appears t o measure about 3-4 millimeters in diameter. No definite pole or cardiac activity. IMPRESSION: Findings as described above are indeterminate for early intrauterine gestation. Please correlate wi th appropriate laboratory values for beta hCG, follow-up ultrasound in 1-2 weeks if appropriate. DATA REPOSITORY:
[2021-11-09] MEDS: Normal Saline Flush 10 ML SYR IVP ×2 (00:01→03:12)
[2021-11-09 00:17] VITALS: BP 117/73; PULSE 73; RESP 12; TEMP 37.3; O2SAT 98
[2021-11-09] MEDS: Acetaminophen 325 MG TAB PO (03:11)
[2021-11-09 03:16] VITALS: BP 119/81; PULSE 74; RESP 12; TEMP 37.1; O2SAT 98
--- NOTE | 2021-11-09 03:38 | NUR.NOTE ---
Nursing Note: Pt complained of increased pain to right leg. Pt ordered Tylenol for pain. She was not pleased that Tylenol was the only choice. Pt took ordered Tylenol. Pt asked for gabapentin but it was not ordered. When returning to pt's room to speak to her about her gabapentin. Pt was sleeping
[2021-11-09 06:20] VITALS: BP 122/61; PULSE 61; RESP 12; TEMP 36.7; O2SAT 99
[2021-11-09 07:08] LABS: Abs Immature Grans 0.02 10^3/uL (0.0-0.06); Absolute Basophil Count 0.03 10^3/uL (0.0-0.2); Absolute Eosinophil Count 0.05 10^3/uL (0.0-0.7); Absolute Lymphocyte Count 1.55 10^3/uL (1.2-3.4); Absolute Monocyte Count 0.38 10^3/uL (0.1-0.8); Absolute Neutrophil Count 3.25 10^3/uL (1.2-6.7); Basophils % 0.6; Eosinophils % 0.9; HCT 36.4 % (36.0-46.0); HGB 11.5 g/dL (11.2-15.7); Immature Grans % 0.4; Lymphocytes % 29.4; MCH 28.1 pg (27.0-33.0); MCHC 31.6 % (32.0-36.0); MPV 10.1 fL (8.0-11.0); Monocytes % 7.2; Neutrophils % 61.5; Nucleated RBC 0 %; Platelet Count 260 10^3/uL (130-400); RBC 4.09 10^6/uL (3.93-5.22); RDW 13.9 % (11.7-14.6); RDW-SD 45.1 fL; WBC 5.28 10^3/uL (4.4-10.8)
[2021-11-09 07:26] LABS: ALT 11 U/L (14-59); AST 10 U/L (15-37); Albumin 2.7 g/dL (3.4-5.0); Alkaline Phosphatase 58 U/L (46-116); Anion Gap 5.7 mmol/L (3-11); BUN 5 mg/dL (7-18); Bilirubin, Direct 0.1 mg/dL (0.0-0.2); Bilirubin, Total 0.2 mg/dL (0.2-1.0); C-Reactive Protein 8.56 mg/dL (0.0-0.3); CO2 25.3 mmol/L (21.0-32.0); CREATININE 0.8 mg/dL (0.55-1.02); Calcium 8.1 mg/dL (8.5-10.1); Chloride 109 mmol/L (98-107); Glucose 88 mg/dL (74-106); Magnesium 2.2 mg/dL (1.8-2.4); Potassium 3.6 mmol/L (3.5-5.1); Sodium 140 mmol/L (136-145); Total Protein 6.1 g/dL (6.4-8.2)
[2021-11-09] MEDS: VANCOMYCIN 1,000 MG in Normal Saline 250 ML 166.667 MG IV ×2 (08:07)
[2021-11-09] MEDS: Methadone Liquid 10 MG/ML 40 MG PO (08:11)
--- NOTE | 2021-11-09 09:43 | DI.VRAD_ITS ---
PROCEDURE INFORMATION: Exam: US First Trimester, Transabdominal Exam date and time: 11/09/2021 9:32 AM Age: 31 years old Clinical indication: Abnormal findings; Abnormal lab test; Other: Unkown, PT admitted for other reasons; TECHNIQUE: Imaging protocol: Real-time transabdominal obstetrical ultrasound of the maternal pelvis and a first trimester , less than 14 weeks 0 days, with image documentation. COMPARISON: No relevant prior studies for comparison. FINDINGS: GESTATION: Gestation: There is a 7 mm circumscribed fluid structure eccentrically located within the endometrial canal, a suspected early gestational sac, without visible pole or yolk sac. Embryonic/ heart rate: Not detected. Extra-embryonic membranes/Placenta: Not applicable. Amniotic fluid: Not applicable. BIOMETRY: Gestational age (AUA): The above-mentioned suspected early gestational sac is below the minimum size threshold for accurate calculation of mean gestational age. MATERNAL: Uterus: Unremarkable. The uterus measures 7.4 cm in length x 4.8 cm AP x 4.9 cm TRV. Cervix: Unremarkable. Right adnexa: Unremarkable. The right ovary measures 2.8 cm x 2.5 cm x 1.3 cm, without cyst or mass. Left adnexa: Unremarkable. The left ovary measures 2.8 cm x 3 cm x 2.5 cm, without cyst or mass. Intraperitoneal space: Small amount of simple free fluid in the cul-de-sac, nonspecific. IMPRESSION: 1. Small intrauterine fluid structure, possibly an early gestational sac, without visible pole or yolk sac. This could represent a very early below the resolution of ultrasound, though a failed is not excluded. Serial serum beta hCG levels and short-term ultrasound follow-up (7-10 days) are advised. 2. No adnexal cysts or masses. 3. Small amount of simple free fluid in the cul-de-sac, nonspecific. Dictated and Authenticated by: Rahel Peter MD. Ordering:MICHEAL Davies MD
--- NOTE | 2021-11-09 10:26 | OBCE_ITS ---
Date of service: 11/09/21 Time of Service: 10:26 Assessment and Plan Assessment and plan (1) Early stage of : Status: Acute Assessment and plan: Patient is in the very early stages of . She was unaware of her , and could not answer whether she was trying to conceive or trying to prevent .. Today, she seems ambivalent about her status. In light of her complex medical situation including polysubstance use, cellulitis, history of endocarditis with mitral valve replacement in the past, have undertaken a review of her current medications and made recommendations regarding imaging. Current medication therapy with vancomycin and Rocephin is appropriate. Imaging may be performed, though at this point noncontrasted studies would be prudent. We will continue to follow this patient's care and her early . More recommendations to follow. (2) Abscess of left index finger: Status: Acute (3) Sepsis: Status: Acute (4) Polysubstance abuse: Status: Acute (5) Anxiety: Status: Chronic History of Present Illness History of Present Illness Chief Complaint: Early Narrative: Kindly asked to see this patient who has been admitted for treatment of cellulitis. She was seen initially in the emergency department and found also to have a positive urine test. She is unaware that she was . We have been consulted for recommendations of medication management, in the face of a complex medical history and early . At my visit this morning, patient is somnolent but arousable, and uninterested in answering questions. She had just returned from pelvic ultrasound confirming a gestational sac that is intrauterine, with a very early pole, with no perceivable cardiac activity due to early gestation. Upon questioning, patient seems ambivalent about her . It has been reported that she does not desire to continue this , however would not answer directly to me today. I was able to discuss patient's care with her physician team. Recommendations regarding imaging for her various complaints along with review of her medications were undertaken. Patient has been on methadone in the past. She is a drug user of cocaine and crack which it appears that she participates in skin popping and smoking. She has a history of endocarditis with a valve replacement at the [facility] approximately 4 to 5 years ago. Her initial drug screen was negative for methadone, though positive for marijuana and cocaine. Consults Consult date: 11/09/21 Requesting physician: Keke Paredes Review of Systems Narrative: Patient was somnolent but arousable this morning, though declined to answer any questions regarding how she feels this morning. Unobtainable due to mental condition [facility] All Active Problems (Updated 11/09/21 @ 10:33 by Tracy Carrizales DO) Early stage of (Acute) Abscess of left index finger (Acute) Sepsis (Acute) (Acute) Discharge planning issues (Acute) DVT prophylaxis (Acute) Cellulitis (Acute) Chest pain (Acute) Abdominal pain (Acute) Chest pain (Acute) COVID-19 (Acute) Polysubstance abuse (Acute) Anxiety (Chronic) Eloped from emergency department (Acute) Headache (Acute) Drug reaction (Acute) Bronchitis (Acute) Bronchitis (Acute) Reactive airway disease (Acute) Arm numbness left (Acute) Cough (Acute) Methadone dependence (Acute) Noncompliance with medication regimen (Acute) Endocarditis (Acute) History of intravenous drug abuse (Acute) Frequent headaches (Acute) Lower extremity edema (Acute) Left shoulder pain (Acute) Medical History Anxiety Bipolar disorder Endocarditis GERD (gastroesophageal reflux disease) Hepatitis C History of recurrent UTIs Iron deficiency anemia IV drug abuse Nephrolithiasis Obesity Surgical History S/P ERCP S/P laparoscopic cholecystectomy S/P mitral valve replacement 4 years ago at [facility] Family History Father Substance use disorder Social History Smoking/Tobacco Use Status: Current every day Tobacco Type: cigarettes Smoking risk assessment performed?: Yes Alcohol Intake: never Drug use: Daily Substance use type: marijuana and crack/cocaine Do you feel safe at home: Yes Do you feel safe in your relationship?: Yes Exam Narrative Exam Narrative: Patient is somnolent but arousable, declines to answer questions. As patient would not consent to examination, or answer questions, no detailed examination was performed. Const General: comfortable, no acute distress, well developed and other (Somnolent) Nutritional Appearance: average body habitus Results Last Vital Signs Temp 98.1 F 11/09/21 06:20 Pulse 61 11/09/21 06:20 Resp 12 11/09/21 06:20 BP 122/61 11/09/21 06:20 Pulse Ox 99 11/09/21 06:20 Labs Result diagrams: 11/09/21 06:55 11/09/21 06:55 Labs: Laboratory Results - last 24 hr 11/08/21 11/08/21 11/08/21 10:53 10:53 10:53 WBC RBC Hgb Hct MCV MCH MCHC RDW Plt Count MPV Immature Gran % Neutrophils % Lymphocytes % Monocytes % Eosinophils % Basophils % Nucleated RBC % Absolute Neutrophils Absolute Lymphocytes Absolute Monocytes Absolute Eosinophils Absolute Basophils ESR 12 D-Dimer VBG Lactate 0.4 L Sodium Potassium Chloride Carbon Dioxide Anion Gap BUN Creatinine Estimated GFR/1.73 m2 Glucose Calcium Magnesium Total Bilirubin Conjugated Bilirubin AST ALT Alkaline Phosphatase Troponin I C-Reactive Protein 2.65 H Total Protein Albumin Procalcitonin Urine Color Urine Clarity Urine pH Ur Specific [place] Urine Protein Urine Ketones Urine Blood Urine Nitrite Urine Bilirubin Urine Urobilinogen Ur Leukocyte Esterase Urine Glucose Urine Opiates Screen Urine Methadone Screen Ur Barbiturates Screen Ur Tricyclics Screen Ur Amphetamines Screen U Benzodiazepines Scrn Urine Cocaine Screen Ur THC Screen COVID-19 Source SARS-CoV-2 (PCR) Add-On Test Request 11/08/21 11/08/21 11/08/21 10:53 10:53 10:53 WBC 13.12 H RBC 4.19 Hgb 11.8 Hct 37.8 MCV 90.2 MCH 28.2 MCHC 31.2 L RDW 13.7 Plt Count 310 MPV 9.9 Immature Gran % 0.4 Neutrophils % 85.5 Lymphocytes % 9.8 Monocytes % 3.7 Eosinophils % 0.2 Basophils % 0.4 Nucleated RBC % 0 Absolute Neutrophils 11.22 H Absolute Lymphocytes 1.29 Absolute Monocytes 0.49 Absolute Eosinophils 0.03 Absolute Basophils 0.05 ESR D-Dimer 576 H VBG Lactate Sodium 138 Potassium 3.7 Chloride 103 Carbon Dioxide 28.2 Anion Gap 6.8 BUN 11 Creatinine 1.1 H Estimated GFR/1.73 m2 57.56 Glucose 103 Calcium 8.5 Magnesium 2.1 Total Bilirubin 0.4 Conjugated Bilirubin AST 21 ALT 18 Alkaline Phosphatase 80 Troponin I < 50 C-Reactive Protein Total Protein 7.2 Albumin 3.6 Procalcitonin Urine Color Urine Clarity Urine pH Ur Specific [place] Urine Protein Urine Ketones Urine Blood Urine Nitrite Urine Bilirubin Urine Urobilinogen Ur Leukocyte Esterase Urine Glucose Urine Opiates Screen Urine Methadone Screen Ur Barbiturates Screen Ur Tricyclics Screen Ur Amphetamines Screen U Benzodiazepines Scrn Urine Cocaine Screen Ur THC Screen COVID-19 Source SARS-CoV-2 (PCR) Add-On Test Request 11/08/21 11/08/21 11/08/21 10:53 11:00 11:00 WBC RBC Hgb Hct MCV MCH MCHC RDW Plt Count MPV Immature Gran % Neutrophils % Lymphocytes % Monocytes % Eosinophils % Basophils % Nucleated RBC % Absolute Neutrophils Absolute Lymphocytes Absolute Monocytes Absolute Eosinophils Absolute Basophils ESR D-Dimer VBG Lactate Sodium Potassium Chloride Carbon Dioxide Anion Gap BUN Creatinine Estimated GFR/1.73 m2 Glucose Calcium Magnesium Total Bilirubin Conjugated Bilirubin AST ALT Alkaline Phosphatase Troponin I C-Reactive Protein Total Protein Albumin Procalcitonin 0.1 Urine Color Urine Clarity Urine pH Ur Specific [place] Urine Protein Urine Ketones Urine Blood Urine Nitrite Urine Bilirubin Urine Urobilinogen Ur Leukocyte Esterase Urine Glucose Urine Opiates Screen Negative Urine Methadone Screen Negative Ur Barbiturates Screen Negative Ur Tricyclics Screen Negative Ur Amphetamines Screen Negative U Benzodiazepines Scrn Negative Urine Cocaine Screen Positive A Ur THC Screen Positive A COVID-19 Source SARS-CoV-2 (PCR) Add-On Test Request DONE 11/08/21 11/08/21 11/09/21 11:11 13:43 06:55 WBC RBC Hgb Hct MCV MCH MCHC RDW Plt Count MPV Immature Gran % Neutrophils % Lymphocytes % Monocytes % Eosinophils % Basophils % Nucleated RBC % Absolute Neutrophils Absolute Lymphocytes Absolute Monocytes Absolute Eosinophils Absolute Basophils ESR D-Dimer VBG Lactate Sodium 140 Potassium 3.6 Chloride 109 H Carbon Dioxide 25.3 Anion Gap 5.7 BUN 5 L Creatinine 0.8 Estimated GFR/1.73 m2 >= 60.00 Glucose 88 Calcium 8.1 L Magnesium 2.2 Total Bilirubin 0.2 Conjugated Bilirubin 0.1 AST 10 L ALT 11 L Alkaline Phosphatase 58 Troponin I C-Reactive Protein 8.56 H Total Protein 6.1 L Albumin 2.7 L Procalcitonin Urine Color Yellow Urine Clarity Clear Urine pH 7.0 Ur Specific [place] >= 1.030 H Urine Protein Negative Urine Ketones Negative Urine Blood Negative Urine Nitrite Negative Urine Bilirubin Negative Urine Urobilinogen 0.2 Ur Leukocyte Esterase Negative Urine Glucose Negative Urine Opiates Screen Urine Methadone Screen Ur Barbiturates Screen Ur Tricyclics Screen Ur Amphetamines Screen U Benzodiazepines Scrn Urine Cocaine Screen Ur THC Screen COVID-19 Source Nasal/Nares SARS-CoV-2 (PCR) Negative Add-On Test Request 11/09/21 06:55 WBC 5.28 D RBC 4.09 Hgb 11.5 Hct 36.4 MCV 89.0 MCH 28.1 MCHC 31.6 L RDW 13.9 Plt Count 260 MPV 10.1 Immature Gran % 0.4 Neutrophils % 61.5 Lymphocytes % 29.4 Monocytes % 7.2 Eosinophils % 0.9 Basophils % 0.6 Nucleated RBC % 0 Absolute Neutrophils 3.25 Absolute Lymphocytes 1.55 Absolute Monocytes 0.38 Absolute Eosinophils 0.05 Absolute Basophils 0.03 ESR D-Dimer VBG Lactate Sodium Potassium Chloride Carbon Dioxide Anion Gap BUN Creatinine Estimated GFR/1.73 m2 Glucose Calcium Magnesium Total Bilirubin Conjugated Bilirubin AST ALT Alkaline Phosphatase Troponin I C-Reactive Protein Total Protein Albumin Procalcitonin Urine Color Urine Clarity Urine pH Ur Specific [place] Urine Protein Urine Ketones Urine Blood Urine Nitrite Urine Bilirubin Urine Urobilinogen Ur Leukocyte Esterase Urine Glucose Urine Opiates Screen Urine Methadone Screen Ur Barbiturates Screen Ur Tricyclics Screen Ur Amphetamines Screen U Benzodiazepines Scrn Urine Cocaine Screen Ur THC Screen COVID-19 Source SARS-CoV-2 (PCR) Add-On Test Request Imaging US - pelvic: image reviewed (Small intrauterine gestational sac with what appears to be a pole measuring 0.19 cm. Too early for cardiac activity)
--- NOTE | 2021-11-09 10:27 | PDOC.CMIN ---
- If Service Date Differs Date of service: 11/09/21 Time of Service: 10:27 Care Management Initial Assess REASON FOR HOSPITALIZATION:: Celllulitis BUE/BLE PAST MEDICAL HISTORY/PAST SURGICAL HISTORY:: All Active Problems. Sepsis (Acute). (Acute). Discharge planning issues (Acute). DVT prophylaxis (Acute). Cellulitis (Acute). Chest pain (Acute). Abdominal pain (Acute). Chest pain (Acute). COVID-19 (Acute). Polysubstance abuse (Acute). Anxiety (Chronic). Eloped from emergency department (Acute). Headache (Acute). Drug reaction (Acute). Bronchitis (Acute). Bronchitis (Acute). Reactive airway disease (Acute). Arm numbness left (Acute). Cough (Acute). Methadone dependence (Acute). Noncompliance with medication regimen (Acute). Endocarditis (Acute). History of intravenous drug abuse (Acute). Frequent headaches (Acute). Lower extremity edema (Acute). Left shoulder pain (Acute). Medical History. Anxiety. Bipolar disorder. Endocarditis. GERD (gastroesophageal reflux disease). Hepatitis C. History of recurrent UTIs. Iron deficiency anemia. IV drug abuse. Nephrolithiasis. Obesity. Surgical History. S/P ERCP. S/P laparoscopic cholecystectomy. S/P mitral valve replacement. 4 years ago at [facility] PREVIOUS FUNCTIONAL STATUS/SOCIAL/FAMILY SUPPORTS:: Ina has a last known address in [facility], but per report, is homeless. She has a s/o, Timothy and her mother, Haleigh, listed as supports. She is independent with ADL's at baseline. CURRENT FUNCTIONAL STATUS:: Ina would not engage with CM when a visit was attempted. Per report, awaiting blood cultures to determine course of treatment. If her blood cultures are positive, she may require prison IV abx therapy. She is scheduled to have an MRI w/o contrast tomorrow. She has had a mitral valve inplant placed previously, which puts her at high risk for recurrent endocarditis, per MD. CM will continue to support discharge planning considerations. ADVANCE DIRECTIVES:: None on file. Has patient been provided with info about the portal/API?: Yes Did the patient sign up for the portal?: No CODE STATUS:: Full Code INSURANCE COVERAGE / FINANCIAL ISSUES:: [facility] CURRENT HOME/COMMUNITY SERVICES/EQUIPMENT:: [facility] PRIMARY CARE PHYSICIAN:: Timothy Bliss POTENTIAL DISCHARGE NEEDS:: Evaluations for further needs, follow up appointments. PATIENT/FAMILY EDUCATION NEEDS:: Review discharge instructions and limitations, discussion of self care needs including ask me three and self management. ANTICIPATED BARRIERS TO DISCHARGE:: None identified at this time. TRANSPORTATION:: Via private vehicle by family. PLAN:: Ina's discharge plan is not clear at this time, awaiting blood cultures to determine course of treatment. Anticipate Ina will return to the community when medically cleared. She will transport via private vehicle when ready. She will follow up with her PCP and discharge plan of care. CM will continue to follow.
--- NOTE | 2021-11-09 14:47 | W.PM.PROGNOT ---
Date of Service Date of service: 11/09/21 Time of Service: 14:47 Assessment and Plan Assessment and plan (1) Sepsis: Status: Acute Assessment and plan: Suspected bacteremia and possible recurrent endocarditis, given h/o bioprosthetic mitral valve. Cellulitic lesions on RLE with at least one definite abscess; abscess 2nd digit LUE. Blood cultures: 2 sets still pending, 1 set: NGTD. Continue empiric vancomycin/ceftriaxone. H/o enterococcal endocarditis. Since back pain no longer an issue, I am cancelling MRI lumbar spine. May require I&D 2nd digit LUE and abscess RLE. (2) Cellulitis: Status: Acute Assessment and plan: Multiple infected lesions RLE>LLE as well as LUE - specifically, 2nd digit L hand abscess. Continue empiric ceftriaxone/vancomycin while awaiting blood culture results. Concern for endocarditis - await echo (tomorrow). (3) S/P mitral valve replacement: Assessment and plan: As above (4) Methadone dependence: Status: Acute Assessment and plan: Risk/benefit of continuing methadone therapy need to be weighed. Discussed with Dr Carrizales of [employer] [facility] - will continue methadone for now, verify dose with [facility] tomorrow. (5) Bipolar disorder: Assessment and plan: Continue psychiatric medications - reviewed these with Dr Carrizales. (6) : Status: Acute Assessment and plan: US: likely very early stage of (4-5 weeks). 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 At this point, no immediate plans for imaging as the patient is reporting no back pain and the abscess LUE 2nd digit is being followed clinically. The patient expressed interest in an pill. [facility] (7) Polysubstance abuse: Status: Acute Assessment and plan: As above Continue methadone. Verify dose with [facility]. Cocaine + on UDS -snorts it. Does not appear to currently be withdrawing from substances. (8) DVT prophylaxis: Status: Acute Assessment and plan: SC lovenox (9) Discharge planning issues: Status: Acute Assessment and plan: Full code The patient expressed desire to leave and was advised that it would be strongly against medical advice and could result in her from an untreated infection. She verbalized understanding. Discussed with Dr Carrizales. Subjective Subjective Interval history since last seen: Ms Orellana reports that the pain in her 2nd digit LUE and in her distal RLE is what's bothering her the most. She says her lower back pain is gone. She denies dizziness, chest pain, shortness of breath, nausea. She is interested in going home. She reports interest in getting an pill. Exam Narrative Exam Narrative: General: Anxious female, A&Ox3, looks more comfortable than yesterday HEENT: EOMI, MMM Cardiovascular: RRR, + MUSA Lungs: CTAB Gastrointestinal: soft, nontender, nondistended Extremities: LUE - hand ROM limited by pain in 2nd digit, which looks less swollen and erythematous to me, but the patient reports more pain. One of the scabs on the RLE now appears to have an area of purulence associated with it; erythematous lesions on LLE look much better today. Objective Last Vital Signs Temp 36.7 C 11/09/21 06:20 Pulse 61 11/09/21 06:20 Resp 12 11/09/21 06:20 BP 122/61 11/09/21 06:20 Pulse Ox 99 11/09/21 06:20 Laboratory Results - last 24 hr 11/08/21 11/09/21 11/09/21 11:00 06:55 06:55 WBC 5.28 D RBC 4.09 Hgb 11.5 Hct 36.4 MCV 89.0 MCH 28.1 MCHC 31.6 L RDW 13.9 Plt Count 260 MPV 10.1 Immature Gran % 0.4 Neutrophils % 61.5 Lymphocytes % 29.4 Monocytes % 7.2 Eosinophils % 0.9 Basophils % 0.6 Nucleated RBC % 0 Absolute Neutrophils 3.25 Absolute Lymphocytes 1.55 Absolute Monocytes 0.38 Absolute Eosinophils 0.05 Absolute Basophils 0.03 Sodium 140 Potassium 3.6 Chloride 109 H Carbon Dioxide 25.3 Anion Gap 5.7 BUN 5 L Creatinine 0.8 Estimated GFR/1.73 m2 >= 60.00 Glucose 88 Calcium 8.1 L Magnesium 2.2 Total Bilirubin 0.2 Conjugated Bilirubin 0.1 AST 10 L ALT 11 L Alkaline Phosphatase 58 C-Reactive Protein 8.56 H Total Protein 6.1 L Albumin 2.7 L Add-On Test Request DONE
[2021-11-09 14:57] VITALS: BP 110/67; PULSE 67; RESP 18; TEMP 36.9
[2021-11-09] MEDS: Enoxaparin 40 MG/0.4 ML SYR SC (15:05)
[2021-11-09] MEDS: cefTRIAXone 2 GM/50 ML BAG IVPB (15:05)
--- NOTE | 2021-11-09 15:43 | NUR.NOTE ---
Notified, Nursing Devulcan[facility] Head notifed patient signed out AMA.
--- NOTE | 2021-11-09 16:11 | W.PM.DS.N ---
Date of service: 11/09/21 Time of Service: 16:11 DS: Diagnosis Discharge Diagnosis (1) Sepsis: Status: Acute (2) Cellulitis: Status: Acute (3) S/P mitral valve replacement: (4) Methadone dependence: Status: Chronic (5) Bipolar disorder: (6) : Status: Acute (7) Polysubstance abuse: Status: Chronic Discharge Plan Disposition Patient Disposition: AGAINST MEDICAL ADVICE Condition: Serious Discharge Details Reason For Visit: CELLULITIS BUE/BLE'S Admit Date/Time: 11/09/21 15:04 Admit Provider: Keke Paredes Attending Provider: Keke Paredes [id number] Course: Ms Orellana is a 31 year old female w/ PMHX of prior enterococcal endocarditis s/p mitral valve replacement, as well as h/o IV drug use, opioid dependence on methadone therapy through [facility], medication noncompliance, who was a patient on [facility] hospitalist service from 11/08/21 until 11/09/21 for sepsis due to cellulitis of BLE and LUE extremity with abscesses in her 2nd digit left hand and R tibial surface, associated with skin scabs. Her blood cultures were still pending at the time that she left AMA. She received empiric vancomycin and ceftriaxone on this admission. Additionally, she was found to be - very early stages of . The patient was evaluated by both orthopedics and [employer]ER on this admission. Orthopedics felt that at the time of evaluation the patient did not require surgery for the abscess of her 2nd digit of LUE, but might require it in the future. Her R tibial surface did not yet have an abscess at the time of that evaluation, just multiple cellulitic lesions. EDGE PLUGGER did help us manage the patient's medications to ensure that none of them were harmful to the fetus. The patient had verbalized that she was interested in and that [facility] She left AMA today despite being advised that her leaving AMA could result in from an untreated infection. She verbalized understanding. We are sending a prescription for ampicillin to [facility] in [facility] though obviously she should return to the hospital to complete her workup and treatment. Total time spent on care for patient as well as completion of her discharge paperwork is 60 minutes. Home Meds and New Rx's Prescriptions: New ampicillin 500 mg capsule 500 mg PO QID Qty: 42 0RF Continued methadone 10 MG/ML concentrate 40 mg PO DAILY 0RF Label Comments: patient states she takes it at exactly 0530 every day Rx Instructions: pt gets med at [facility] lorazepam 0.5 mg tablet 0.5 mg PO BID 0RF Label Comments: Take 1 tablet by mouth twice a day gabapentin 800 mg tablet 800 mg PO TID 0RF Label Comments: Take 1 tablet by mouth three times a day dexmethylphenidate [Focalin XR] 20 mg capsule,ER biphasic 50-50 20 mg PO QPM 0RF Label Comments: Take 1 capsule by mouth once a day dexmethylphenidate [Focalin XR] 30 mg capsule,ER biphasic 50-50 30 mg PO DAILY 0RF Label Comments: TAKE ONE CAPSULE BY MOUTH ONCE A DAY IN THE MORNING AND FOCALIN XR 20 MG EVERY AFTERNOON Discharge Instructions Instructions: Ampicillin (By mouth), Cellulitis (IP), Sepsis (DC) Additional Instructions: Return to the hospital to complete your workup and treatment. Referrals: Tracy Carrizales DO [OSTEOPATHIC DOCTOR] - Timothy De Los Santos MD [ [facility] STAFF PHYSICIAN] - Timothy Bliss [Primary Care Provider] - Activity:: Activity as Tolerated Equipment/Supplies:: No Equipment Needed Diet:: As Tolerated Discharge Orders Discharge Orders: Discharge Order (Routine); Ordered 11/09/21 Ordered By: Keke Paredes Discharge Data Discharge Date/Time-TO BE ENTERED AT DEPARTURE: 11/09/21 15:41 DS: Summary Time Spent with Patient providing and/or coordinating discharge services: Greater than 30 minutes Status at Discharge Functional status at discharge: independent ambulation Overall status at discharge: patient is not back to baseline Mental Status: mental status grossly normal Speech and Movement: speech and movement normal Mood: dysthymic mood Affect: irritable affect Exam Narrative Exam Narrative: General: Anxious female, A&Ox3, looks more comfortable than yesterday HEENT: EOMI, MMM Cardiovascular: RRR, + MUSA Lungs: CTAB Gastrointestinal: soft, nontender, nondistended Extremities: LUE - hand ROM limited by pain in 2nd digit, which looks less swollen and erythematous to me, but the patient reports more pain. One of the scabs on the RLE now appears to have an area of purulence associated with it; erythematous lesions on LLE look much better today. Psych Mental Status: mental status grossly normal Speech and Movement: speech and movement normal Mood: dysthymic mood Affect: irritable affect DS: Data Vitals/I&O Vitals and I&O: Vital Signs Temperature 36.9 C 11/09/21 14:57 Temperature Source Tympanic 11/09/21 14:57 Pulse 67 11/09/21 14:57 Pulse Rhythm Regular 11/09/21 03:32 Respiratory Rate 18 11/09/21 14:57 Respiratory Effort Non-Labored 11/09/21 03:32 Respiratory Depth Normal 11/09/21 03:32 Respiratory Pattern Normal 11/09/21 03:32 Blood Pressure 110/67 11/09/21 14:57 Blood Pressure Position Sitting 11/08/21 09:54 Pulse Oximetry 99 11/09/21 06:20 Oxygen Delivery Method Room Air 11/09/21 14:57 Oxygen Flow Rate 0 11/09/21 14:57 Pain Level 7 11/08/21 18:33 Comment 11/09/21 14:57 Intake & Output 11/08/21 11/09/21 11/09/21 23:59 11:59 23:59 Intake Total 1790 / 1790 500 / 1000 500 / 1000 Output Total 800 / 800 900 / 2300 1400 / 2300 Balance 990 / 990 -400 / -1300 -900 / -1300 Weight 90.5 kg Intake: IV 1310 / 1310 500 / 500 Oral 480 / 480 500 / 500 Output: Urine 800 / 800 900 / 2300 1400 / 2300 Other: Urine Color Light Peggy Yellow Yellow Urine Appearance Clear Clear Clear Urine Odor Normal Normal Voiding Methods Bedside Commode Bedside Commode Bedside Commode Data Completed and Pending Completed studies during hospitalization [Text1]: venous doppler BLEs: No evidence of deep venous thrombosis of the right or left lower extremity. US ; Ob ultrasound was performed utilizing 1st trimester protocol.? Uterus measures 7.4 x 4.8 x 4.9 cm.? Right ovary measures 28 x 25 x 13 millimeters and left ovary measures 28 x 3 x 25 millimeters. There is a small fluid collection in the uterine fundus, possible early gestation sac, this appears to measure about 3-4 millimeters in diameter.? No definite pole or cardiac activity. IMPRESSION: ?Findings as described above are indeterminate for early intrauterine gestation.? Please correlate with appropriate laboratory values for beta hCG, follow-up ultrasound in 1-2 weeks if appropriate. Labs on day of discharge: Labs from last 24 hours 11/09/21 11/09/21 06:55 06:55 WBC 5.28 D RBC 4.09 Hgb 11.5 Hct 36.4 MCV 89.0 MCH 28.1 MCHC 31.6 L RDW 13.9 Plt Count 260 MPV 10.1 Immature Gran % 0.4 Neutrophils % 61.5 Lymphocytes % 29.4 Monocytes % 7.2 Eosinophils % 0.9 Basophils % 0.6 Nucleated RBC % 0 Absolute Neutrophils 3.25 Absolute Lymphocytes 1.55 Absolute Monocytes 0.38 Absolute Eosinophils 0.05 Absolute Basophils 0.03 Sodium 140 Potassium 3.6 Chloride 109 H Carbon Dioxide 25.3 Anion Gap 5.7 BUN 5 L Creatinine 0.8 Estimated GFR/1.73 m2 >= 60.00 Glucose 88 Calcium 8.1 L Magnesium 2.2 Total Bilirubin 0.2 Conjugated Bilirubin 0.1 AST 10 L ALT 11 L Alkaline Phosphatase 58 C-Reactive Protein 8.56 H Total Protein 6.1 L Albumin 2.7 L 11/08/21 14:43 Blood Blood Culture - Pending 11/08/21 14:50 Blood Blood Culture - Pending Preliminary micro results at discharge 11/08/21 10:55 Blood Culture - Preliminary Blood NO GROWTH 24 HOURS 11/08/21 14:43 Blood Culture - Pending Blood 11/08/21 14:50 Blood Culture - Pending Blood PFSH All Active Problems (Updated 11/09/21 @ 16:12 by Keke Paredes MD) Early stage of (Acute) Abscess of left index finger (Acute) Sepsis (Acute) (Acute) Discharge planning issues (Acute) DVT prophylaxis (Acute) Cellulitis (Acute) Chest pain (Acute) Abdominal pain (Acute) Chest pain (Acute) COVID-19 (Acute) Polysubstance abuse (Chronic) Anxiety (Chronic) Eloped from emergency department (Acute) Headache (Acute) Drug reaction (Acute) Bronchitis (Acute) Bronchitis (Acute) Reactive airway disease (Acute) Arm numbness left (Acute) Cough (Acute) Methadone dependence (Chronic) Noncompliance with medication regimen (Acute) Endocarditis (Acute) History of intravenous drug abuse (Acute) Frequent headaches (Acute) Lower extremity edema (Acute) Left shoulder pain (Acute) Medical History Anxiety Bipolar disorder Endocarditis GERD (gastroesophageal reflux disease) Hepatitis C History of recurrent UTIs Iron deficiency anemia IV drug abuse Nephrolithiasis Obesity Surgical History S/P ERCP S/P laparoscopic cholecystectomy S/P mitral valve replacement 4 years ago at [facility] Family History Father Substance use disorder Social History Smoking/Tobacco Use Status: Current every day Tobacco Type: cigarettes Smoking risk assessment performed?: Yes Alcohol Intake: never Drug use: Daily Substance use type: marijuana and crack/cocaine Do you feel safe at home: Yes Do you feel safe in your relationship?: Yes
--- NOTE | 2021-11-09 16:27 | NUR.NOTE ---
11/09 @ 3049- Called patient to let her know a script for anitbiotics was sent to [facility] in [facility]. Patient did not answer phone left message with her friend that answered the phone. He stated she is not around. I stated please let her know she has an antibiotic medication that was sent to [facility] in [facility]. Nursing Note:
== END 2021-11-09 15:41 | disposition left against medical advice (07) | DRG 831 ==
LOC: ER 13:52 → MS 15:14
PROVIDERS: Admitting Provider Internal Medicine; Emergency Provider Nurse Practitioner Family; PCP Family Medicine; Visit Provider Internal Medicine
DX: O98.811 Other maternal infectious and parasitic diseases complicating pregnancy, first trimester (principal); A41.9 Sepsis, unspecified organism; L03.115 Cellulitis of right lower limb; L03.116 Cellulitis of left lower limb; L02.512 Cutaneous abscess of left hand; F11.20 Opioid dependence, uncomplicated; O99.321 Drug use complicating pregnancy, first trimester; Z3A.01 Less than 8 weeks gestation of pregnancy; F31.9 Bipolar disorder, unspecified; Z95.2 Presence of prosthetic heart valve; F19.10 Other psychoactive substance abuse, uncomplicated; O99.341 Other mental disorders complicating pregnancy, first trimester; L03.012 Cellulitis of left finger; J45.909 Unspecified asthma, uncomplicated; F41.9 Anxiety disorder, unspecified; Z86.16 Personal history of COVID-19; Z91.14 Patient's other noncompliance with medication regimen; O99.511 Diseases of the respiratory system complicating pregnancy, first trimester
CPT/HCPCS: 36415; 80048; 80053; 80076; 80307; 81025; 84145; 85652; 87040; 87635; 93005; 96361; 96374; 99285; J1650; 76801; 81003; 83605; 83735; 84484; 85025; 85379; 86140; 93010; 93970; 99220; 99239; G0378

== ENCOUNTER 2021-11-15 05:25 | Inpatient (IN) | payer MEDICAID, SELFPAY ==
[2021-11-15] VITALS (11 sets, daily range): BP systolic 93–152; BP diastolic 53–93; PULSE 62–82; RESP 15–19; TEMP 36.8–37.2; O2SAT 96–100
--- NOTE | 2021-11-15 05:48 | ED.GENADUL_ITS ---
Discharge Plan Disposition Patient Disposition: [facility] INPATIENT Condition: Stable Discharge Details Chief Complaint: GenMedical Clinical Impression: Cellulitis Primary Care Provider: Timothy Bliss ED Provider: Gil Haro Home Meds and New Rx's Prescriptions: No Action lorazepam 0.5 mg tablet 0.5 mg PO BID 0RF Label Comments: Take 1 tablet by mouth twice a day gabapentin 800 mg tablet 800 mg PO TID 0RF Label Comments: Take 1 tablet by mouth three times a day dexmethylphenidate [Focalin XR] 20 mg capsule,ER biphasic 50-50 20 mg PO QPM 0RF Label Comments: Take 1 capsule by mouth once a day dexmethylphenidate [Focalin XR] 30 mg capsule,ER biphasic 50-50 30 mg PO DAILY 0RF Label Comments: TAKE ONE CAPSULE BY MOUTH ONCE A DAY IN THE MORNING AND FOCALIN XR 20 MG TRACE RY AFTERNOON ampicillin 500 mg capsule 500 mg PO QID Qty: 42 0RF Medical Decision Making 31 yo female with hx of ivdu on methadone who comes in with leg pain and redness of the legs. She was admitted a week ago and left the next day AMA for lesions with erythema of the lower legs and also on her left index finger. She states she left because she had no one to stay with her. She did not fill the ampicillin that was sent in for her. Since then she still has pain in the legs and states she has subjective fevers and chills. She left prior to having an echo, her cultures at that time did not grow any bacteria. She wa also found to be about 8 weeks and [facility] as she is not planning on keeping the . She comes in by ems and is stable on arrival. She has numerous open wounds of the lower legs and on the right has erythema from the mid tibia down. No crepitus or drainage. I suspect cellulitis and given her history possible endocarditis though her initial cultures were negative. Will order labs, cultures, and discuss with hospitalist about admission. The lesion on her hand is not erythematous or swollen and doesn't appear infected at this time Differential Diagnosis Differential Diagnosis: endocarditis, cellulitis Medical Records Medical records reviewed: Yes I reviewed the patient's medical records. Lab Data Lab results reviewed: Yes I reviewed the patient's lab results. HPI General Mode of arrival: EMS . Date/Time Provider Initiated Documentation: 11/15/21 05:32 . Limitations to Documentation: no limitations . Information obtained by: patient . History of Present Illness 31 year old F presents to the emergency department with the chief complaint of leg pain, described as moderate, and it has been constant. improves with No relieving factors improve symptom(s), No exacerbating factors reported . Patient notes fever/chills. Patient did receive the following treatments prior to arrival, none Related Data Home Medications Medication Instructions Recorded Confirmed dexmethylphenidate 20 mg 20 mg PO QPM 11/08/21 11/08/21 capsule,extended release [id number] (Focalin XR) dexmethylphenidate 30 mg 30 mg PO DAILY 11/08/21 11/08/21 capsule,extended release [id number] (Focalin XR) gabapentin 800 mg tablet 800 mg PO TID 11/08/21 11/08/21 lorazepam 0.5 mg tablet 0.5 mg PO BID 11/08/21 11/08/21 ampicillin 500 mg capsule 500 mg PO QID #42 cap 11/09/21 Previous Rx's Medication Instructions Recorded ampicillin 500 mg capsule 500 mg PO QID #42 cap 11/09/21 Allergies Allergy/AdvReac Type Severity Reaction Status Date / Time No Known Drug Allergies Allergy Unverified 11/15/21 05:52 General Stated Complaint: GenMedical PATRICIA: 2 Review of Systems All systems reviewed & are unremarkable except as noted in HPI and below Eyes Eyes: Denies loss of vision ENT Ears, Nose, Mouth, and Throat: Denies change in voice Cardiovascular Cardiovascular: Denies chest pain and Denies dyspnea Respiratory Respiratory: Denies cough and Denies dyspnea Gastrointestinal Gastrointestinal: Denies abdominal pain, Denies nausea and Denies vomiting Genitourinary Genitourinary: Denies dysuria Neurologic Neurologic: Denies loss of vision [facility] All Active Problems (Updated 11/15/21 @ 05:54 by Gil Haro MD) Early stage of (Acute) Abscess of left index finger (Acute) Sepsis (Acute) (Acute) Cellulitis (Acute) Chest pain (Acute) Abdominal pain (Acute) Chest pain (Acute) COVID-19 (Acute) Polysubstance abuse (Chronic) Anxiety (Chronic) Eloped from emergency department (Acute) Headache (Acute) Drug reaction (Acute) Bronchitis (Acute) Bronchitis (Acute) Reactive airway disease (Acute) Arm numbness left (Acute) Cough (Acute) Methadone dependence (Chronic) Noncompliance with medication regimen (Acute) Endocarditis (Acute) History of intravenous drug abuse (Acute) Frequent headaches (Acute) Lower extremity edema (Acute) Left shoulder pain (Acute) Medical History Anxiety Bipolar disorder Endocarditis GERD (gastroesophageal reflux disease) Hepatitis C History of recurrent UTIs Iron deficiency anemia IV drug abuse Nephrolithiasis Obesity Surgical History S/P ERCP S/P laparoscopic cholecystectomy S/P mitral valve replacement 4 years ago at [facility] Family History Father Substance use disorder Social History Smoking/Tobacco Use Status: Current every day Tobacco Type: cigarettes Smoking risk assessment performed?: Yes Alcohol Intake: never Drug use: Daily Substance use type: marijuana and crack/cocaine Details: 11/15/21 States she has not used x 2 weeks. Do you feel safe at home: Yes Do you feel safe in your relationship?: Yes Exam Const General: no acute distress Orientation: alert HENMT Head: normal to inspection Ears: external ears normal General nose exam: external nose normal Mouth: moist mucous membranes Eyes General: appearance normal, both eyes and all related structures Neck Neck: normal visual inspection Resp Effort & Inspection: normal respiratory effort and able to speak in complete sentences Cardio Rate: regular rate Skin General skin exam: elasticity normal and erythema Neuro General: patient alert and patient oriented x3 Extrem General: capillary refill normal Psych Mental Status: mental status grossly normal Course Vital Signs Vital signs: Vital Signs Temperature 36.8 C 11/15/21 05:27 Pulse 65 11/15/21 05:27 Respiratory Rate 18 11/15/21 05:27 Blood Pressure 139/71 11/15/21 05:27 Pulse Oximetry 100 11/15/21 05:27 Temperature 36.8 C 11/15/21 05:27 Temperature Source Oral 11/15/21 05:27 Pulse 65 11/15/21 05:27 Respiratory Rate 18 11/15/21 05:27 Respiratory Effort Non-Labored 11/15/21 05:35 Blood Pressure 139/71 11/15/21 05:27 Blood Pressure Position Supine 11/15/21 05:27 Pulse Oximetry 100 11/15/21 05:27 Oxygen Delivery Method Room Air 11/15/21 05:27 Oxygen Flow Rate 0 11/15/21 05:27 Pain Level 8 11/15/21 05:27 Lab/Test Results Lab/Test Results: 11/15/21 05:26 Blood Blood Culture - Pending 11/15/21 05:26 Blood Blood Culture - Pending
--- NOTE | 2021-11-15 06:00 | W.PM.HP.N ---
Date of service: 11/15/21 Time of Service: 06:01 Assessment and Plan Assessment and plan (1) Cellulitis: Status: Acute Assessment and plan: This looks a lot better than on her last admission. Agree with continuing vancomycin/ceftriaxone initiated in the ED. Await blood cultures. Trend inflammatory markers. Given h/o valve replacement, would benefit from an echo. (2) Abscess of left index finger: Status: Acute Assessment and plan: This also looks a lot better today. I do not see any evidence of tenosynovitis, and her ROM appears quite good. Abx above should cover this adequately. (3) Early stage of : Status: Acute Assessment and plan: The patient has not provided us with a urine sample yet. She states that [facility]; therefore, she assumes she is still . (4) Opioid dependence: Status: Acute Assessment and plan: While [facility] states that she was discharged from their program, the patient is clearly withdrawing. She is written for her last verified dose of methadone (40 mg). She will need a sobriety [employer] and to re-establish care with [facility] on discharge. (5) DVT prophylaxis: Status: Acute Assessment and plan: SC lovenox (6) Discharge planning issues: Status: Acute Assessment and plan: Full code. History of Present Illness History of Present Illness Chief Complaint: I don't feel good. 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 She was hospitalized on our service from 11/08/21 until 11/09/21 and left AMA. During that hospitalization, she was treated with vancomcyin/ceftriaxone (her blood cultures were negative). She was found to be (confirmed by ultrasound to be 4-5 week ). She left AMA before an echo could be done on her last admission. She did not fill her prescription for ampicillin sent to her pharmacy at that time. 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 As far as her opioid addiction, on last admission, the patient told us that she received methadone therapy through [facility], which [facility] denied. Today she states that she gets it from them and that the last time she received a dose was two days ago. [facility] states that she was discharged from their program on 10/23/21. She is requesting methadone. The patient states she is having chest pain on inspiration, no shortness of breath, endorses nausea, back pain. Review of Systems All systems reviewed & are unremarkable except as noted in HPI and below PFSH All Active Problems (Updated 11/15/21 @ 06:07 by Keke Paredes MD) Discharge planning issues (Acute) DVT prophylaxis (Acute) Opioid dependence (Acute) Early stage of (Acute) Abscess of left index finger (Acute) Sepsis (Acute) (Acute) Cellulitis (Acute) Chest pain (Acute) Abdominal pain (Acute) Chest pain (Acute) COVID-19 (Acute) Polysubstance abuse (Chronic) Anxiety (Chronic) Eloped from emergency department (Acute) Headache (Acute) Drug reaction (Acute) Bronchitis (Acute) Bronchitis (Acute) Reactive airway disease (Acute) Arm numbness left (Acute) Cough (Acute) Methadone dependence (Chronic) Noncompliance with medication regimen (Acute) Endocarditis (Acute) History of intravenous drug abuse (Acute) Frequent headaches (Acute) Lower extremity edema (Acute) Left shoulder pain (Acute) Medical History Anxiety Bipolar disorder Endocarditis GERD (gastroesophageal reflux disease) Hepatitis C History of recurrent UTIs Iron deficiency anemia IV drug abuse Nephrolithiasis Obesity Surgical History S/P ERCP S/P laparoscopic cholecystectomy S/P mitral valve replacement 4 years ago at [facility] Family History Father Substance use disorder Social History Smoking/Tobacco Use Status: Current every day Tobacco Type: cigarettes Smoking risk assessment performed?: Yes Alcohol Intake: never Drug use: Daily Substance use type: marijuana and crack/cocaine Details: 11/15/21 States she has not used x 2 weeks. Do you feel safe at home: Yes Do you feel safe in your relationship?: Yes Meds Allergies and Home Medications Allergies Allergy/AdvReac Type Severity Reaction Status Date / Time No Known Drug Allergies Allergy Unverified 11/15/21 05:52 Home Medications Medication Instructions Recorded Confirmed Type dexmethylphenidate 20 mg 20 mg PO QPM 11/08/21 11/08/21 History capsule,extended release [id number] (Focalin XR) dexmethylphenidate 30 mg 30 mg PO DAILY 11/08/21 11/08/21 History capsule,extended release [id number] (Focalin XR) gabapentin 800 mg tablet 800 mg PO TID 11/08/21 11/08/21 History lorazepam 0.5 mg tablet 0.5 mg PO BID 11/08/21 11/08/21 History ampicillin 500 mg capsule 500 mg PO QID #42 cap 11/09/21 Rx Exam Narrative Exam Narrative: General: Anxious female who appears to be withdawing from a substance, A&Ox3, does not look toxic Neurological: No focal deficits Psychiatric: Anxious, impulsive Skin: Significant improvement in appearance of RLE lesions (tibial surface abscess appears to have ruptured), 2nd digit LUE also does not appear as erythematous/swollen as it did on last admission HEENT: Atraumatic, normocephalic, EOMI, MMM, clear oropharynx, no submandibular or cervical lymphadenopathy, no goiter or JVD Cardiovascular: RRR. + MUSA Lungs: ronchi B Gastrointestinal: soft, nontener, nondistended Genitourinary: deferred Extremities: no edema BLE's, 1+ pedal pulses, lesions RLE look significantly better than on last admission with the abscess having matured and ruptured on R tibial surface; 2nd digit LUE looks much better as well Results Imaging Additional studies: EKG pending Labs Result diagrams: 11/15/21 05:26 11/15/21 05:26 Last Vital Signs Temp 36.8 C 11/15/21 05:27 Pulse 65 11/15/21 05:27 Resp 18 11/15/21 05:27 BP 139/71 11/15/21 05:27 Pulse Ox 100 11/15/21 05:27 Procedures Abscess I/D Sedation/analgesia: midazolam
[2021-11-15 06:17] LABS: Source Nasal/Nares
[2021-11-15 06:19] LABS: Abs Immature Grans 0.01 10^3/uL (0.0-0.06); Absolute Basophil Count 0.03 10^3/uL (0.0-0.2); Absolute Eosinophil Count 0.13 10^3/uL (0.0-0.7); Absolute Monocyte Count 0.32 10^3/uL (0.1-0.8); Absolute Neutrophil Count 3.09 10^3/uL (1.2-6.7); Basophils % 0.5; Eosinophils % 2.1; HCT 36.8 % (36.0-46.0); HGB 11.8 g/dL (11.2-15.7); Immature Grans % 0.2; Lactate 0.8 mmol/L (0.6-1.4); Lymphocytes % 42.1; MCH 28.6 pg (27.0-33.0); MCHC 32.1 % (32.0-36.0); MCV 89.1 fL (80-95); MPV 9.9 fL (8.0-11.0); Monocytes % 5.2; Neutrophils % 49.9; Nucleated RBC 0 %; Platelet Count 312 10^3/uL (130-400); RBC 4.13 10^6/uL (3.93-5.22); RDW 13.6 % (11.7-14.6); RDW-SD 44.4 fL; WBC 6.18 10^3/uL (4.4-10.8)
[2021-11-15 06:23] LABS: ESR 10 mm/hr (0-20)
--- NOTE | 2021-11-15 06:30 | RT.EKG_ITS ---
APPROVED REPORT Exam: Resting ECG Reason for Exam: has heart valve Patient Location: E HR:62 bpm ECG Measurements Heart Rate 62 AXIS SC [id number] P [id number] QRSd 101 QRS 97 QT 418 T 50 QTc 426 Conclusion Junctional rhythm...absent P waves, slow V-rate
[2021-11-15 06:41] LABS: ALT 22 U/L (14-59); AST 20 U/L (15-37); Albumin 3.1 g/dL (3.4-5.0); Alkaline Phosphatase 62 U/L (46-116); Anion Gap 8.3 mmol/L (3-11); BUN 7 mg/dL (7-18); Bilirubin, Total 0.3 mg/dL (0.2-1.0); C-Reactive Protein 0.85 mg/dL (0.0-0.3); CO2 25.7 mmol/L (21.0-32.0); CREATININE 0.8 mg/dL (0.55-1.02); Calcium 8.2 mg/dL (8.5-10.1); Chloride 108 mmol/L (98-107); Glucose 93 mg/dL (74-106); Magnesium 2.1 mg/dL (1.8-2.4); Potassium 4.1 mmol/L (3.5-5.1); Sodium 142 mmol/L (136-145); Total Protein 6.1 g/dL (6.4-8.2)
[2021-11-15] MEDS: Normal Saline 1,000 ML 1000 ML IV (06:50)
[2021-11-15] MEDS: cefTRIAXone 2 GM/50 ML BAG IVPB (06:52)
[2021-11-15 06:59] LABS: Procalcitonin < 0.1 ng/mL
[2021-11-15 07:02] LABS: COVID-19 PCR Negative (Negative)
[2021-11-15 07:03] LABS: HCG Quant, Pregnancy 7827 mIU/mL (1-3)
[2021-11-15] MEDS: VANCOMYCIN 1,000 MG in Normal Saline 250 ML 166.6666 MG IVPB (07:45)
[2021-11-15] MEDS: Methadone Liquid 10 MG/ML 30 MG PO (07:46)
[2021-11-15] MEDS: Normal Saline Flush 10 ML SYR IVP ×2 (07:47→21:37)
[2021-11-15] MEDS: Enoxaparin 40 MG/0.4 ML SYR SC (07:47)
[2021-11-15 07:51] LABS: Bilirubin Negative (Negative); Blood Negative (Negative); Clarity Sl Cloudy (Clear); Glucose Negative (Negative); Ketones Negative (Negative); Leukocyte Esterase Negative (Negative); Nitrite Negative (Negative); Specific Gravity 1.025 (1.005-1.025); Urobilinogen 0.2 EU/dL (Up TO 0.2); pH 7.5 (5-8)
[2021-11-15 08:03] LABS: *AMPHETAMINES SCREEN URINE Negative (Negative); *BARBITURATES SCREEN URINE Negative (Negative); *BENZODIAZEPINES SCREEN URINE Negative (Negative); Cannabinoids THC Positive (Negative); Cocaine Screen,Urine Positive (Negative); METHADONE URINE SCREEN Negative (Negative); OPIATES URINE SCREEN Negative (Negative)
[2021-11-15 08:08] LABS: Tricyclic Antidepressants Negative (Negative)
[2021-11-15] MEDS: VANCOMYCIN 1,250 MG in Normal Saline 250 ML 166.667 MG IV (15:11)
[2021-11-15] MEDS: Gabapentin 300 MG CAP PO (20:20)
[2021-11-15] MEDS: VANCOMYCIN 1,250 MG in Normal Saline 250 ML 167 MG IV (21:36)
[2021-11-16 03:24] VITALS: BP 124/76; PULSE 83; RESP 18; TEMP 36.8; O2SAT 98
[2021-11-16] MEDS: Normal Saline Flush 10 ML SYR IVP ×2 (06:37→07:23)
[2021-11-16] MEDS: cefTRIAXone 2 GM/50 ML BAG IVPB (06:38)
[2021-11-16 06:52] LABS: HCT 37.9 % (36.0-46.0); HGB 12.1 g/dL (11.2-15.7); MCH 28.1 pg (27.0-33.0); MCHC 31.9 % (32.0-36.0); MCV 88.1 fL (80-95); MPV 10.5 fL (8.0-11.0); Platelet Count 303 10^3/uL (130-400); RDW 13.6 % (11.7-14.6); RDW-SD 43.8 fL; WBC 6.39 10^3/uL (4.4-10.8)
[2021-11-16 07:15] LABS: ALT 15 U/L (14-59); AST 17 U/L (15-37); Albumin 2.9 g/dL (3.4-5.0); Alkaline Phosphatase 59 U/L (46-116); Anion Gap 9.1 mmol/L (3-11); BUN 7 mg/dL (7-18); Bilirubin, Direct 0.1 mg/dL (0.0-0.2); Bilirubin, Total 0.2 mg/dL (0.2-1.0); C-Reactive Protein 0.51 mg/dL (0.0-0.3); CO2 22.9 mmol/L (21.0-32.0); CREATININE 0.7 mg/dL (0.55-1.02); Calcium 8.2 mg/dL (8.5-10.1); Chloride 109 mmol/L (98-107); Glucose 101 mg/dL (74-106); Potassium 4.2 mmol/L (3.5-5.1); Sodium 141 mmol/L (136-145); Total Protein 6.4 g/dL (6.4-8.2)
[2021-11-16] MEDS: Gabapentin 300 MG CAP PO (07:23)
[2021-11-16] MEDS: VANCOMYCIN 1,250 MG in Normal Saline 250 ML 166.7 MG IV (07:24)
[2021-11-16] MEDS: Methadone Liquid 10 MG/ML 30 MG PO (07:30)
[2021-11-16 07:33] VITALS: BP 125/65; PULSE 82; RESP 20; TEMP 36.8; O2SAT 100
--- NOTE | 2021-11-16 07:40 | NUR.NOTE ---
patient left AMA. Nursing educated patient on possible results of leaving AMA. Patient insisted and signed AMA paper and left. Nursing Note:
--- NOTE | 2021-11-16 10:44 | DSE_ITS ---
Date of service: 11/16/21 Time of Service: 08:00 DS: Diagnosis Discharge Diagnosis (1) Cellulitis: Status: Acute (2) Abscess of left index finger: Status: Acute (3) Early stage of : Status: Acute (4) Opioid dependence: Status: Acute (5) DVT prophylaxis: Status: Acute (6) Discharge planning issues: Status: Acute Discharge Plan Disposition Patient Disposition: AGAINST MEDICAL ADVICE Condition: Stable Discharge Details Reason For Visit: Cellulitis RLE, LUE Admit Date/Time: 11/15/21 05:55 Admit Provider: Keke Paredes Attending Provider: Keke Paredes [facility]: Patient received methadone and then left AMA per nursing. Evening provider notified, then this provider notified, after patient left. Home Meds and New Rx's Prescriptions: No Action methadone 10 mg/mL Concentrate 40 mg PO DAILY 0RF dexmethylphenidate [Focalin XR] 20 mg capsule,ER biphasic 50-50 20 mg PO QPM 0RF Label Comments: Take 1 capsule by mouth once a day dexmethylphenidate [Focalin XR] 30 mg capsule,ER biphasic 50-50 30 mg PO DAILY AM 0RF Label Comments: Take 1 capsule by mouth once a day Take Focalin XR 30 mg q AM and Focalin XR 20 mg q afternoon lorazepam 0.5 mg tablet 0.5 mg PO BID 0RF Label Comments: Take 1 tablet by mouth twice a day gabapentin 800 mg tablet 800 mg PO TID 0RF Label Comments: Take 1 tablet by mouth three times a day ampicillin 500 mg capsule 500 mg PO QID Qty: 42 0RF Discharge Data Discharge Date/Time-TO BE ENTERED AT DEPARTURE: 11/16/21 07:35 DS: Summary Time Spent with Patient providing and/or coordinating discharge services: Less than 30 minutes Status at Discharge Functional status at discharge: independent ambulation Overall status at discharge: other Mental Status: other Speech and Movement: other Mood: other Affect: other Exam Psych Mental Status: other Speech and Movement: other Mood: other Affect: other DS: Data Vitals/I&O Vitals and I&O: Vital Signs Temperature 36.8 C 11/16/21 07:33 Temperature Source Tympanic 11/16/21 07:33 Pulse 82 11/16/21 07:33 Pulse Rhythm Regular 11/16/21 03:26 Respiratory Rate 20 11/16/21 07:33 Respiratory Effort Non-Labored 11/16/21 03:26 Respiratory Depth Normal 11/16/21 03:26 Respiratory Pattern Normal 11/16/21 03:26 Blood Pressure 125/65 11/16/21 07:33 Blood Pressure Mean 92 11/15/21 07:31 Blood Pressure Position Supine 11/15/21 05:27 Pulse Oximetry 100 11/16/21 07:33 Oxygen Delivery Method Room Air 11/16/21 07:33 Oxygen Flow Rate 0 11/16/21 07:33 Pain Level 0 11/16/21 03:24 Intake & Output 11/15/21 11/15/21 11/16/21 11:59 23:59 12:59 Intake Total 1300 / 1920 620 / 1920 108.897 / 108.897 Output Total 200 / 1400 1200 / 1400 650 / 650 Balance 1100 / 520 -580 / 520 -541.103 / -541.103 Weight 92.2 kg Intake: IV 1300 / 1800 500 / 1800 108.897 / 108.897 Oral 0 / 120 120 / 120 Output: Urine 200 / 1400 1200 / 1400 650 / 650 Other: Urine Color Yellow Straw Yellow Urine Appearance Clear Clear Clear Urine Odor Normal Normal Comment multiple voids patient voids IND In toilet unable to measure amount, patient denies burning a this time. Voiding Methods Toilet Toilet Toilet Data Completed and Pending Labs on day of discharge: Labs from last 24 hours 11/16/21 11/16/21 11/16/21 13:00 06:12 06:12 WBC 6.39 RBC 4.30 Hgb 12.1 Hct 37.9 MCV 88.1 MCH 28.1 MCHC 31.9 L RDW 13.6 Plt Count 303 MPV 10.5 Sodium 141 Potassium 4.2 Chloride 109 H Carbon Dioxide 22.9 Anion Gap 9.1 BUN 7 Creatinine 0.7 Estimated GFR/1.73 m2 >= 60.00 Glucose 101 Calcium 8.2 L Magnesium 2.0 Total Bilirubin 0.2 Conjugated Bilirubin 0.1 AST 17 ALT 15 Alkaline Phosphatase 59 C-Reactive Protein 0.51 H Total Protein 6.4 Albumin 2.9 L Vancomycin Trough Pending 11/15/21 06:45 Blood Blood Culture - Pending Preliminary micro results at discharge 11/15/21 06:15 Blood Culture - Preliminary Blood NO GROWTH 24 HOURS 11/15/21 06:45 Blood Culture - Pending Blood [facility] All Active Problems (Updated 11/15/21 @ 06:07 by Keke Paredes MD) Discharge planning issues (Acute) DVT prophylaxis (Acute) Opioid dependence (Acute) Early stage of (Acute) Abscess of left index finger (Acute) Sepsis (Acute) (Acute) Cellulitis (Acute) Chest pain (Acute) Abdominal pain (Acute) Chest pain (Acute) COVID-19 (Acute) Polysubstance abuse (Chronic) Anxiety (Chronic) Eloped from emergency department (Acute) Headache (Acute) Drug reaction (Acute) Bronchitis (Acute) Bronchitis (Acute) Reactive airway disease (Acute) Arm numbness left (Acute) Cough (Acute) Methadone dependence (Chronic) Noncompliance with medication regimen (Acute) Endocarditis (Acute) History of intravenous drug abuse (Acute) Frequent headaches (Acute) Lower extremity edema (Acute) Left shoulder pain (Acute) Medical History Anxiety Bipolar disorder Endocarditis GERD (gastroesophageal reflux disease) Hepatitis C History of recurrent UTIs Iron deficiency anemia IV drug abuse Nephrolithiasis Obesity Surgical History S/P ERCP S/P laparoscopic cholecystectomy S/P mitral valve replacement 4 years ago at [facility] Family History Father Substance use disorder Social History Smoking/Tobacco Use Status: Current every day Tobacco Type: cigarettes Smoking risk assessment performed?: Yes Alcohol Intake: never Drug use: Daily Substance use type: marijuana and crack/cocaine Details: 11/15/21 States she has not used x 2 weeks. Do you feel safe at home: Yes Do you feel safe in your relationship?: Yes
== END 2021-11-16 07:35 | disposition left against medical advice (07) | DRG 832 ==
LOC: ER 06:45 → MS 09:09
PROVIDERS: Admitting Provider Internal Medicine; Emergency Provider Emergency Medicine; PCP Family Medicine; Visit Provider Internal Medicine
DX: O98.811 Other maternal infectious and parasitic diseases complicating pregnancy, first trimester (principal); L03.115 Cellulitis of right lower limb; O99.321 Drug use complicating pregnancy, first trimester; F11.20 Opioid dependence, uncomplicated; L02.512 Cutaneous abscess of left hand; F11.23 Opioid dependence with withdrawal; L03.012 Cellulitis of left finger; Z86.16 Personal history of COVID-19; F41.9 Anxiety disorder, unspecified; J45.909 Unspecified asthma, uncomplicated; Z95.2 Presence of prosthetic heart valve; O99.511 Diseases of the respiratory system complicating pregnancy, first trimester; O99.341 Other mental disorders complicating pregnancy, first trimester; O99.331 Smoking (tobacco) complicating pregnancy, first trimester; F17.210 Nicotine dependence, cigarettes, uncomplicated
CPT/HCPCS: 36415; 80048; 80053; 80076; 80307; 84145; 85027; 85652; 87040; 87635; 93005; 96361; 96365; 96367; 99285; J1650; 80202; 81003; 83605; 83735; 84702; 85025; 86140; 93010; 99223

== ENCOUNTER 2021-11-25 07:49 | Emergency (ER) | payer MEDICAID, SELFPAY ==
[2021-11-25 08:00] VITALS: BP 118/80; PULSE 57; RESP 16; TEMP 36.5; O2SAT 99
--- NOTE | 2021-11-25 08:00 | RT.EKG_ITS ---
APPROVED REPORT Exam: Resting ECG Reason for Exam: nausea, lighthea Patient Location: E HR:61 bpm ECG Measurements Heart Rate 61 AXIS WY 184 P 67 QRSd 99 QRS 99 QT 429 T 47 QTc 431 Conclusion Sinus rhythm...normal P axis, V-rate 60- 99 Probable left atrial enlargement...P >50mS, regular rate, narrow complex, hard to identify p waves except in precordial leads
--- NOTE | 2021-11-25 08:15 | ED.GENADUL_ITS ---
Discharge Plan Disposition Patient Disposition: AGAINST MEDICAL ADVICE Condition: Stable Discharge Details Clinical Impression: Medication reaction, Cellulitis, Primary Care Provider: Timothy Bliss ED Provider: Cris Baez Home Meds and New Rx's Prescriptions: No Action methadone 10 mg/mL Concentrate 40 mg PO DAILY 0RF dexmethylphenidate [Focalin XR] 20 mg capsule,ER biphasic 50-50 20 mg PO QPM 0RF Label Comments: Take 1 capsule by mouth once a day dexmethylphenidate [Focalin XR] 30 mg capsule,ER biphasic 50-50 30 mg PO DAILY AM 0RF Label Comments: Take 1 capsule by mouth once a day Take Focalin XR 30 mg q AM and Focalin XR 20 mg q afternoon lorazepam 0.5 mg tablet 0.5 mg PO BID 0RF Label Comments: Take 1 tablet by mouth twice a day gabapentin 800 mg tablet 800 mg PO TID 0RF Label Comments: Take 1 tablet by mouth three times a day ampicillin 500 mg capsule 500 mg PO QID Qty: 42 0RF Medical Decision Making Patient is alert, oriented, of decisional capacity We attempted IV placement, diagnostic laboratory evaluation, and further assessment and observation and after several IV attempts secondary to likely fibrosis from recurring IV drug abuse patient is refusing additional intervention, she jumped off the bed and left prior to reviewing AGAINST MEDICAL ADVICE information, patient has not had any intervention for her reported complaints or treatment for likely cellulitis on her right lower extremity Again she is fully alert, oriented, of decisional capacity at time of this assessment and has eloped the emergency department at approximately 2125 prior to complete evaluation and Medical Records Medical records reviewed: Yes I reviewed the patient's medical records. HPI General Date/Time Provider Initiated Documentation: 11/25/21 08:07 . HPI Narrative: This 31-year-old female presents with nausea, vomiting, lightheadedness after getting an 80 mg dose of Suboxone at the [facility]. She is reportedly 10 weeks . She last used fentanyl yesterday reportedly. She smoked. She states she was just discharged from the hospital where she left AGAINST MEDICAL ADVICE for cellulitis. She states she is experiencing some chills. Denies any falls or injuries. Denies any vaginal bleeding or pain. Related Data Home Medications Medication Instructions Recorded Confirmed gabapentin 800 mg tablet 800 mg PO TID 11/08/21 11/15/21 lorazepam 0.5 mg tablet 0.5 mg PO BID 11/08/21 11/15/21 ampicillin 500 mg capsule 500 mg PO QID #42 cap 11/09/21 dexmethylphenidate 20 mg 20 mg PO QPM 11/15/21 11/15/21 capsule,extended release [id number] (Focalin XR) dexmethylphenidate 30 mg 30 mg PO DAILY AM 11/15/21 11/15/21 capsule,extended release [id number] (Focalin XR) methadone 10 mg/mL oral concentrate 40 mg PO DAILY 11/15/21 11/15/21 Previous Rx's Medication Instructions Recorded ampicillin 500 mg capsule 500 mg PO QID #42 cap 11/09/21 Allergies Allergy/AdvReac Type Severity Reaction Status Date / Time No Known Drug Allergies Allergy Unverified 11/25/21 08:09 General Stated Complaint: GenMedical PATRICIA: 3 Review of Systems All systems reviewed & are unremarkable except as noted in HPI and below PFSH All Active Problems (Updated 11/25/21 @ 09:42 by FISH Costa) Medication reaction (Acute) Cellulitis (Acute) (Acute) Opioid dependence (Acute) Early stage of (Acute) Abscess of left index finger (Acute) Sepsis (Acute) (Acute) Cellulitis (Acute) Chest pain (Acute) Abdominal pain (Acute) Chest pain (Acute) COVID-19 (Acute) Polysubstance abuse (Chronic) Anxiety (Chronic) Eloped from emergency department (Acute) Headache (Acute) Drug reaction (Acute) Bronchitis (Acute) Bronchitis (Acute) Reactive airway disease (Acute) Arm numbness left (Acute) Cough (Acute) Methadone dependence (Chronic) Noncompliance with medication regimen (Acute) Endocarditis (Acute) History of intravenous drug abuse (Acute) Frequent headaches (Acute) Lower extremity edema (Acute) Left shoulder pain (Acute) Medical History Anxiety Bipolar disorder Endocarditis GERD (gastroesophageal reflux disease) Hepatitis C History of recurrent UTIs Iron deficiency anemia IV drug abuse Nephrolithiasis Obesity Surgical History S/P ERCP S/P laparoscopic cholecystectomy S/P mitral valve replacement 4 years ago at [email or web address]] Family History Father Substance use disorder Social History Smoking/Tobacco Use Status: Current every day Tobacco Type: cigarettes Smoking risk assessment performed?: Yes Alcohol Intake: never Drug use: Daily Substance use type: marijuana, crack/cocaine and opiates Do you feel safe at home: Yes Do you feel safe in your relationship?: Yes Additional Social history: homeless, bouncing around to different houses of friends. Exam Const General: cooperative, comfortable and no acute distress Eyes Pupils: PERRL Chest Chest: normal inspection of the chest Resp Effort & Inspection: normal respiratory effort Auscultation: clear to auscultation bilaterally Cardio Rate: regular rate Rhythm: regular rhythm Other: No murmur GI Inspection: normal to inspection Other: No abdominal tenderness Skin General skin exam: no rashes or lesions noted Neuro General: patient alert and patient oriented x3 Extrem Other: numerous excoriations, no visible petechiae or purpura Course Vital Signs Vital signs: Vital Signs Temperature 36.5 C 11/25/21 08:00 Pulse 57 L 11/25/21 08:00 Respiratory Rate 16 11/25/21 08:00 Blood Pressure 118/80 11/25/21 08:00 Pulse Oximetry 99 11/25/21 08:00 Temperature 36.5 C 11/25/21 08:00 Temperature Source Temporal Artery Scan 11/25/21 08:00 Pulse 57 L 11/25/21 08:00 Respiratory Rate 16 11/25/21 08:00 Respiratory Effort Non-Labored 11/25/21 08:05 Blood Pressure 118/80 11/25/21 08:00 Blood Pressure Position Supine 11/25/21 08:00 Pulse Oximetry 99 11/25/21 08:00 Oxygen Delivery Method Room Air 11/25/21 08:00 Oxygen Flow Rate 0 11/25/21 08:00 Pain Level 5 11/25/21 08:00
== END 2021-11-25 09:30 | disposition left against medical advice (07) ==
PROVIDERS: Emergency Provider Physician Assistant; PCP Family Medicine
DX: O99.321 Drug use complicating pregnancy, first trimester (principal); R11.2 Nausea with vomiting, unspecified; R42 Dizziness and giddiness; T40.3X5A Adverse effect of methadone, initial encounter; F11.10 Opioid abuse, uncomplicated; Z3A.10 10 weeks gestation of pregnancy; Z53.29 Procedure and treatment not carried out because of patient's decision for other reasons; L03.115 Cellulitis of right lower limb
CPT/HCPCS: 80053; 85652; 93005; 99281; 84702; 85025; 86140; 93010; 99283

== ENCOUNTER 2022-02-26 05:54 | Emergency (ER) | payer MEDICAID, SELFPAY ==
[2022-02-26 05:55] VITALS: BP 114/61; PULSE 61; RESP 16; TEMP 36; O2SAT 100
--- NOTE | 2022-02-26 06:00 | DI.US_ITS ---
Exam(s) US OB 2-3 TRIMESTER W MOD EXAM: US OB 2-3 TRIMESTER W MOD CLINICAL HISTORY: abdominal pain, PT refused TV, unknown dates, 2nd tri. TECHNIQUE: Transabdominal obstetrical ultrasound performed. COMPARISON: US US OB 1ST TRIMESTER from 11/09/2021 FINDINGS: Number of fetuses: One. position: Vertex. Placental grade: 0 Placental location: Posterior. Low lying, placental tip measuring 2.1 cm from the internal os. BIOMETRIC DATA: BPD: 48mm = 20+ 3 weeks HC: 183mm = 20+ 5 weeks AC: 164mm = 21+3 weeks FL: 34mm = 20+ 4 weeks Cisterna Magna: 5 mm Cerebellum: 1.9 cm EFW: 394 grms Composite Age: 20+ 6 weeks EDC by US: 10 July 2022 Heart Rate: 137BPM Amniotic fluid : Amount of fluid is within normal limits. ANATOMICAL SURVEY: Four-chambered heart: Unremarkable. LVOT: Not well seen RVOT: Not well seen Left-sided stomach: Not well seen urinary bladder: Not well seen Bilateral kidneys: Not well seen Three-vessel cord: Unremarkable. Cord insertion: Unremarkable. Posterior fossa:Unremarkable. ventricles: Unremarkable. nose: Not well seen lips: Not well seen palate: Not well seen spine: Unremarkable. Two arms and two legs: Unremarkable. IMPRESSION: 1. Single live intrauterine gestation measuring 20+ 6 weeks 2. Limited anatomic survey. No gross abnormalities. 3. Low lying placenta. DATA REPOSITORY:
--- NOTE | 2022-02-26 06:06 | ED.GENADUL_ITS ---
Discharge Plan Disposition Patient Disposition: STILL A PATIENT Condition: Stable Discharge Details Chief Complaint: Abd Prob Clinical Impression: Lower abdominal pain Primary Care Provider: Timothy Bliss ED Provider: Gil Haro Home Meds and New Rx's Prescriptions: No Action methadone 10 mg/mL Concentrate 70 mg PO DAILY dexmethylphenidate [Focalin XR] 30 mg capsule,ER biphasic 50-50 40 mg PO DAILY AM Label Comments: Take 1 capsule by mouth once a day Take Focalin XR 30 mg q AM and Focalin XR 20 mg q afternoon lorazepam 0.5 mg tablet 0.5 mg PO BID Label Comments: Take 1 tablet by mouth twice a day gabapentin 800 mg tablet 800 mg PO TID Label Comments: Take 1 tablet by mouth three times a day Medical Decision Making 32 yo female who states she is approximately 4 months and this is her 6th () who comes in with ems with abdominal pain. She states she has had sharp bilateral lower abdomen pain since yesterday. She went to [facility] today to get her methadone, states they gave her half a dose and was sent here. She arrives stable and appears drowsy on exam though is caox4. She denies alcohol or drug use. She now states her pain in her abdomen is all over and not just the lower abdomen. She denies chest pain or shortness of breath. Her abdomen is soft and she states it is tender with even mild pressure to the lower and upper abdomen. Denies vaginal bleeding or discharge. Will obtain labs including cbc, cmp, hcg quant and obtain u/s to evaluate for ovarian pathology, evaluate the fetus as well. hcg in the 3000's and in November was in the 7000's, rest of labs still pending, pt stable and fell asleep, u/s pending. Pt signed out to oncoming provider. Differential Diagnosis Differential Diagnosis: pain, ovarian cyst, ovarian torsion Medical Records Medical records reviewed: Yes I reviewed the patient's medical records. HPI General Mode of arrival: EMS . Date/Time Provider Initiated Documentation: 02/26/22 05:59 . Limitations to Documentation: no limitations . Information obtained by: patient . History of Present Illness 32 year old F presents to the emergency department with the chief complaint of abdominal pain, described as moderate, Quality is described as stabbing, and is localized to the abdomen and pelvis. Patient reports no radiation. Patient started experiencing this day(s) (1) and it has been constant. No relieving factors improve symptom(s), No exacerbating factors reported . Patient notes weakness. Patient did receive the following treatments prior to arrival, none Related Data Home Medications Medication Instructions Recorded Confirmed gabapentin 800 mg tablet 800 mg PO TID 11/08/21 02/26/22 lorazepam 0.5 mg tablet 0.5 mg PO BID 11/08/21 11/15/21 dexmethylphenidate 30 mg 40 mg PO DAILY AM 11/15/21 02/26/22 capsule,extended release [id number] (Focalin XR) methadone 10 mg/mL oral concentrate 70 mg PO DAILY 11/15/21 02/26/22 Allergies Allergy/AdvReac Type Severity Reaction Status Date / Time No Known Drug Allergies Allergy Unverified 02/26/22 05:59 General Stated Complaint: Abd Prob PATRICIA: 3 Review of Systems All systems reviewed & are unremarkable except as noted in HPI and below Constitutional Constitutional: Denies chills and Denies fever(s) Cardiovascular Cardiovascular: Denies chest pain and Denies dyspnea Respiratory Respiratory: Denies cough and Denies dyspnea Gastrointestinal Gastrointestinal: Denies vomiting Genitourinary Genitourinary: Denies dysuria Musculoskeletal Musculoskeletal: Denies joint swelling PFSH All Active Problems (Updated 02/26/22 @ 07:36 by Gil Haro MD) Lower abdominal pain (Acute) Opioid dependence (Acute) Early stage of (Acute) Abscess of left index finger (Acute) Sepsis (Acute) (Acute) Cellulitis (Acute) Chest pain (Acute) Abdominal pain (Acute) Chest pain (Acute) COVID-19 (Acute) Anxiety (Chronic) Eloped from emergency department (Acute) Headache (Acute) Drug reaction (Acute) Bronchitis (Acute) Bronchitis (Acute) Reactive airway disease (Acute) Arm numbness left (Acute) Cough (Acute) Methadone dependence (Chronic) Noncompliance with medication regimen (Acute) Endocarditis (Acute) History of intravenous drug abuse (Acute) Frequent headaches (Acute) Lower extremity edema (Acute) Left shoulder pain (Acute) Medical History Anxiety Bipolar disorder Endocarditis GERD (gastroesophageal reflux disease) Hepatitis C History of recurrent UTIs Iron deficiency anemia IV drug abuse Nephrolithiasis Obesity Surgical History S/P ERCP S/P laparoscopic cholecystectomy S/P mitral valve replacement 4 years ago at [facility] Family History Father Substance use disorder Social History Smoking/Tobacco Use Status: Current every day Tobacco Type: cigarettes Smoking risk assessment performed?: Yes Alcohol Intake: never Drug use: Daily Substance use type: marijuana, crack/cocaine, opiates, painkillers and other Details: states she uses fentanyl Do you feel safe at home: Yes Do you feel safe in your relationship?: Yes Additional Social history: homeless, bouncing around to different houses of friends. Exam Const General: no acute distress Orientation: other (drowsy) [facility] Head: normal to inspection Ears: external ears normal General nose exam: external nose normal Mouth: moist mucous membranes Eyes General: appearance normal, both eyes and all related structures Neck Neck: normal visual inspection Resp Effort & Inspection: normal respiratory effort and able to speak in complete sentences Cardio Rate: regular rate Skin General skin exam: other (multiple circular lesions that appear to be skin poppin on legs) Neuro General: patient alert and patient oriented x3 Extrem General: full ROM and capillary refill normal Psych Mental Status: mental status grossly normal Course Vital Signs Vital signs: Vital Signs Temperature 36.0 C L 02/26/22 05:55 Pulse 61 02/26/22 05:55 Respiratory Rate 16 02/26/22 05:55 Blood Pressure 114/61 02/26/22 05:55 Pulse Oximetry 100 02/26/22 05:55 Temperature 36.0 C L 02/26/22 05:55 Pulse 61 02/26/22 05:55 Respiratory Rate 16 02/26/22 05:55 Respiratory Effort Non-Labored 02/26/22 06:00 Blood Pressure 114/61 02/26/22 05:55 Pulse Oximetry 100 02/26/22 05:55 Pain Level 8 02/26/22 06:00 Sign Out Sign Out Data: Sign Out Comment: diagnosed in November and believes she is still , lower abdomen discomfort since yesterday and came here after [facility] clinic visit today. Pending u/s and reassessment Last updated by Gil Haro MD at 02/26/22 07:05
[2022-02-26] MEDS: Acetaminophen 500 MG TAB 1000 MG PO (06:24)
[2022-02-26 06:28] LABS: Abs Immature Grans 0.03 10^3/uL (0.0-0.06); Absolute Basophil Count 0.03 10^3/uL (0.0-0.2); Absolute Eosinophil Count 0.13 10^3/uL (0.0-0.7); Absolute Lymphocyte Count 1.86 10^3/uL (1.2-3.4); Absolute Monocyte Count 0.28 10^3/uL (0.1-0.8); Absolute Neutrophil Count 6.04 10^3/uL (1.2-6.7); Basophils % 0.4; Eosinophils % 1.6; HCT 35.1 % (36.0-46.0); HGB 11.6 g/dL (11.2-15.7); Immature Grans % 0.4; Lymphocytes % 22.2; MCH 29.4 pg (27.0-33.0); MCV 89 fL (80-95); MPV 10.1 fL (8.0-11.0); Monocytes % 3.3; Neutrophils % 72.1; Platelet Count 264 10^3/uL (130-400); RBC 3.95 10^6/uL (3.93-5.22); RDW 14.5 % (11.7-14.6); RDW-SD 46.6 fL; WBC 8.37 10^3/uL (4.4-10.8)
[2022-02-26 06:28] LABS: Source Nasal/Nares
[2022-02-26 06:54] LABS: ALT 9 U/L (14-59); AST 15 U/L (15-37); Albumin 2.6 g/dL (3.4-5.0); Alkaline Phosphatase 59 U/L (46-116); Anion Gap 7.4 mmol/L (3-11); BUN 5 mg/dL (7-18); Bilirubin, Total 0.1 mg/dL (0.2-1.0); CO2 25.6 mmol/L (21.0-32.0); CREATININE 0.7 mg/dL (0.55-1.02); Chloride 103 mmol/L (98-107); Glucose 92 mg/dL (74-106); Lipase 27 U/L (73-393); Magnesium 1.6 mg/dL (1.8-2.4); Potassium 3.2 mmol/L (3.5-5.1); Sodium 136 mmol/L (136-145); Total Protein 6.2 g/dL (6.4-8.2)
[2022-02-26 06:57] LABS: ETHANOL BLOOD < 3.0 mg/dL (<10)
[2022-02-26] MEDS: Magnesium Oxide 400 MG TAB PO (07:12)
[2022-02-26] MEDS: Potassium Chloride 20 MEQ TABCR 40 MEQ PO (07:13)
[2022-02-26 07:18] LABS: COVID-19 PCR Negative (Negative)
--- NOTE | 2022-02-26 07:20 | NUR.NOTE ---
Addendum entered by Weston Norman 02/26/22 08:22: Pt. back from US, states that pain is better, unable to rate. Denies needing to urinate yet. Original Note: Report from MINDA Garcia. Pt. AO x 4, appears sleepy. Medications given, patient unable to void yet.Nursing Note:
[2022-02-26 07:29] LABS: HCG Quant, Pregnancy 3612 mIU/mL (1-3)
--- NOTE | 2022-02-26 08:09 | ED.PROG_ITS ---
Date of service: 02/26/22 Time of Service: 08:00 Medical Decision Making 0800 --please see Dr. Haro's note for initial presentation, exam and plan. Case endorsed to follow-up on labs and imaging and final disposition. 31-year-old female A1 presents for abdominal pain for the past hour. She describes the pain as diffuse, sharp and crampy. She states she has not seen OB for this current . She is unsure of her last menstrual period. Her abdomen is soft and diffusely mildly tender. No rebound tenderness, rigidity or guarding. History and presentation does not appear c/w peritonitis or acute abdomen at this time. Patient states she did not receive any of her methadone this morning and would like to be dosed here. 0830 --labs reviewed. Normal white blood cell count. Potassium 3.2, magnesium 1.6, these were repleted by Dr. Haro. Her beta quant is 3612. Her beta quantitative was 7827 in November 2021. She denies any vaginal bleeding or known miscarriage since November. COVID negative. 0920 --patient reported to have eloped from the ED. Ultrasound final result had been pending. Ultrasound was discussed with security installation sales technician who noted that pt is 21 weeks per US. Final radiology report notes that patient has a single live intrauterine gesta tion measuring 20+6 weeks with no obvious gross abnormalities. Patient placed on care management list to help arrange for a follow-up appointment with women[facility] for possible care during this . Medical Records Medical records reviewed: Yes I reviewed the patient's medical records. Imaging Data Radiologic Study: Radiologist's impression: US OB 2-3 TRIMESTER W MOD CLINICAL HISTORY: ? abdominal pain, PT refused TV, unknown dates, 2nd tri.? TECHNIQUE:? Transabdominal obstetrical ultrasound performed. COMPARISON:? US US OB 1ST TRIMESTER from 11/09/2021 FINDINGS: Number of fetuses: One. position: Vertex. Placental grade: 0 Placental location: Posterior.? Low lying, placental tip measuring 2.1 cm from the internal os. BIOMETRIC DATA: BPD: 48mm = 20+ 3 weeks HC: 183mm = 20+ 5 weeks AC: 164mm = 21+3 weeks FL: 34mm = 20+ 4 weeks Cisterna Magna: 5 mm Cerebellum: 1.9 cm EFW: 394 grms Composite Age: 20+ 6 weeks EDC by US: 10 July 2022 Heart Rate: 137BPM Amniotic fluid : Amount of fluid is within normal limits. ANATOMICAL SURVEY: Four-chambered heart: Unremarkable. LVOT: Not well seen RVOT: Not well seen Left-sided stomach: Not well seen urinary bladder: Not well seen Bilateral kidneys: Not well seen Three-vessel cord: Unremarkable. Cord insertion: Unremarkable. Posterior fossa:Unremarkable. ventricles: Unremarkable. nose: Not well seen lips: Not well seen palate: Not well seen spine: Unremarkable. Two arms and two legs: Unremarkable. IMPRESSION: 1. Single live intrauterine gestation measuring 20+ 6 weeks 2. Limited anatomic survey.? No gross abnormalities. Lab Data Lab results reviewed: Yes I reviewed the patient's lab results. Labs: Laboratory Tests Range/Units 02/26/22 02/26/22 02/26/22 06:17 06:17 06:17 WBC (4.4-10.8) 10^3/uL 8.37 RBC (3.93-5.22) 10^6/uL 3.95 Hgb (11.2-15.7) g/dL 11.6 Hct (36.0-46.0) % 35.1 L MCV (80-95) fL 89 MCH (27.0-33.0) pg 29.4 MCHC (32.0-36.0) % 33.0 RDW (11.7-14.6) % 14.5 Plt Count (130-400) 10^3/uL 264 MPV (8.0-11.0) fL 10.1 Immature Gran % 0.4 Neutrophils % 72.1 Lymphocytes % 22.2 Monocytes % 3.3 Eosinophils % 1.6 Basophils % 0.4 Nucleated RBC % (0.0-0.3) % 0.0 Absolute Neutrophils (1.2-6.7) 10^3/uL 6.04 Absolute Lymphocytes (1.2-3.4) 10^3/uL 1.86 Absolute Monocytes (0.1-0.8) 10^3/uL 0.28 Absolute Eosinophils (0.0-0.7) 10^3/uL 0.13 Absolute Basophils (0.0-0.2) 10^3/uL 0.03 Sodium (136-145) mmol/L 136 Potassium (3.5-5.1) mmol/L 3.2 L Chloride (98-107) mmol/L 103 Carbon Dioxide (21.0-32.0) mmol/L 25.6 Anion Gap (3-11) mmol/L 7.4 BUN (7-18) mg/dL 5 L Creatinine (0.55-1.02) mg/dL 0.7 Estimated GFR/1.73 m2 (mL/min/1.73m2) >= 60.00 Glucose (74-106) mg/dL 92 Calcium (8.5-10.1) mg/dL 8.0 L Magnesium (1.8-2.4) mg/dL 1.6 L Total Bilirubin (0.2-1.0) mg/dL 0.1 L AST (15-37) U/L 15 ALT (14-59) U/L 9 L Alkaline Phosphatase (46-116) U/L 59 Total Protein (6.4-8.2) g/dL 6.2 L Albumin (3.4-5.0) g/dL 2.6 L Lipase (73-393) U/L 27 Beta HCG, Quant (1-3) mIU/mL 3612 H Ethyl Alcohol (<10) mg/dL < 3.0 COVID-19 Source SARS-CoV-2 (PCR) (Negative) Patient ABO/Rh O Positive Range/Units 02/26/22 06:25 WBC (4.4-10.8) 10^3/uL RBC (3.93-5.22) 10^6/uL Hgb (11.2-15.7) g/dL Hct (36.0-46.0) % MCV (80-95) fL MCH (27.0-33.0) pg MCHC (32.0-36.0) % RDW (11.7-14.6) % Plt Count (130-400) 10^3/uL MPV (8.0-11.0) fL Immature Gran % Neutrophils % Lymphocytes % Monocytes % Eosinophils % Basophils % Nucleated RBC % (0.0-0.3) % Absolute Neutrophils (1.2-6.7) 10^3/uL Absolute Lymphocytes (1.2-3.4) 10^3/uL Absolute Monocytes (0.1-0.8) 10^3/uL Absolute Eosinophils (0.0-0.7) 10^3/uL Absolute Basophils (0.0-0.2) 10^3/uL Sodium (136-145) mmol/L Potassium (3.5-5.1) mmol/L Chloride (98-107) mmol/L Carbon Dioxide (21.0-32.0) mmol/L Anion Gap (3-11) mmol/L BUN (7-18) mg/dL Creatinine (0.55-1.02) mg/dL Estimated GFR/1.73 m2 (mL/min/1.73m2) Glucose (74-106) mg/dL Calcium (8.5-10.1) mg/dL Magnesium (1.8-2.4) mg/dL Total Bilirubin (0.2-1.0) mg/dL AST (15-37) U/L ALT (14-59) U/L Alkaline Phosphatase (46-116) U/L Total Protein (6.4-8.2) g/dL Albumin (3.4-5.0) g/dL Lipase (73-393) U/L Beta HCG, Quant (1-3) mIU/mL Ethyl Alcohol (<10) mg/dL COVID-19 Source Nasal/Nares SARS-CoV-2 (PCR) (Negative) Negative Patient ABO/Rh Sign Out Sign Out Data: Sign Out Comment: diagnosed in November and believes she is still , lower abdomen discomfort since yesterday and came here after [facility] clinic visit today. Pending u/s and reassessment Last updated by Gil Haro MD at 02/26/22 07:05 Discharge Plan Disposition Patient Disposition: Eloped Condition: Stable Discharge Details Chief Complaint: Abd Prob Clinical Impression: Abdominal pain, Primary Care Provider: Timothy Bliss ED Provider: Harika Adams Home Meds and New Rx's Prescriptions: No Action methadone 10 mg/mL Concentrate 70 mg PO DAILY dexmethylphenidate [Focalin XR] 30 mg capsule,ER biphasic 50-50 40 mg PO DAILY AM Label Comments: Take 1 capsule by mouth once a day Take Focalin XR 30 mg q AM and Focalin XR 20 mg q afternoon lorazepam 0.5 mg tablet 0.5 mg PO BID Label Comments: Take 1 tablet by mouth twice a day gabapentin 800 mg tablet 800 mg PO TID Label Comments: Take 1 tablet by mouth three times a day Discharge Data Discharge Date/Time-TO BE ENTERED AT DEPARTURE: 02/26/22 09:18
[2022-02-26 08:21] VITALS: BP 125/75; PULSE 59; RESP 14; O2SAT 100
--- NOTE | 2022-02-26 09:17 | NUR.NOTE ---
Pt. attempted to urinate in restroom, returned to room and grabbed clothing and got dressed and stated she was leaving and left the department. Provider notified. Nursing Note:
--- NOTE | 2022-02-27 08:53 | NUR.NOTE ---
Dr. Adams would like the patient to be seen by [facility] because she is and has not been seen by anyone yet. The patient had eloped from the ED.Nursing Note:
== END 2022-02-26 09:18 ==
PROVIDERS: Emergency Medicine; Emergency Provider Physician Assistant; PCP Family Medicine
DX: O26.892 Other specified pregnancy related conditions, second trimester (principal); R10.30 Lower abdominal pain, unspecified; Z3A.21 21 weeks gestation of pregnancy; E87.6 Hypokalemia; Z53.29 Procedure and treatment not carried out because of patient's decision for other reasons; F11.20 Opioid dependence, uncomplicated
CPT/HCPCS: 36415; 76805; 80053; 83690; 86900; 86901; 87635; 99284; 80320; 83735; 84702; 85025

== ENCOUNTER 2022-04-23 01:16 | Emergency (ER) | payer MEDICAID, SELFPAY ==
[2022-04-23 01:14] VITALS: BP 114/65; PULSE 87; RESP 18; TEMP 36.7; O2SAT 99
--- NOTE | 2022-04-23 01:45 | ED.GENADUL_ITS ---
Discharge Plan Disposition Patient Disposition: HOME Condition: Good Discharge Details Chief Complaint: DrugWithdr/MAT Clinical Impression: , Drug withdrawal Primary Care Provider: Timothy Bliss ED Provider: Arie Verduzco Home Meds and New Rx's Prescriptions: No Action methadone 10 mg/mL Concentrate 70 mg PO DAILY dexmethylphenidate [Focalin XR] 30 mg capsule,ER biphasic 50-50 40 mg PO DAILY AM Label Comments: Take 1 capsule by mouth once a day Take Focalin XR 30 mg q AM and Focalin XR 20 mg q afternoon lorazepam 0.5 mg tablet 0.5 mg PO BID Label Comments: Take 1 tablet by mouth twice a day gabapentin 800 mg tablet 800 mg PO TID Label Comments: Take 1 tablet by mouth three times a day Discharge Instructions Instructions: (ED) Additional Instructions: Please follow-up closely with your obstetrics nascar racer. Please do not take any cocaine or fentanyl. Please follow-up at the methadone clinic. Please drink plenty of fluids. If you notice any worsening of your symptoms, or any new symptoms such as vomiting, diarrhea, fever, chills, shortness of breath, chest pain, numbness, weakness, or fainting , please return immediately to the emergency department for reevaluation. Please follow up with your primary care provider as soon as possible for reassessment and reevaluation. As always, it was a pleasure participating in your medical care today. Referrals: Timothy Bliss [Primary Care Provider] - Medical Decision Making 32-year-old female with a past medical history of polysubstance abuse, bipolar disorder, previous endocarditis, with mitral valve replacement, hepatitis C, who is currently 29 weeks presents today for pelvic pain. Patient states that she has been regularly taking fentanyl, and then stopped about 2 days ago. Since then she has felt horrible, has had pelvic pain, increased urinary frequency, and felt like I am losing fluid in my abdomen. She denies any cocaine use or methamphetamine use. She was discharged from the [facility] clinic in October 2021. She has not been vaccinated for COVID, but did develop COVID-19 this past year. She was brought in by EMS this evening. She is concerned for withdrawing and the pain that she is feeling. No other complaints at this time. She denies any vaginal discharge or vaginal bleeding. She denies any new numbness or tingling. She does admit to nausea vomiting and occasional diarrhea. Exam demonstrates a stable female, vital signs are stable. She looks tired and slightly miserable, but does not show any sign of toxic appearance. Exam demonstrates a nonsurgical abdomen, vaginal exam demonstrates a closed cervix, no vaginal bleeding. heart rate is 145. Differential includes withdrawal, contraction secondary to withdrawal, dehydration, and UTI potentially. We will evaluate for these etiologies. We will give clonidine for her current withdrawal symptoms. Will monitor closely and reassess. 3:30 AM Laboratory work-up is returned stable. Slight drop in hemoglobin, electrolytes stable, urinalysis negative for infection. Patient has been rehydrated. Urine drug screen is positive for cocaine. Patient is now demanding methadone. She has already been given a clonidine patch. She states that she restarted at the methadone clinic, but stopped 3 days ago to take fentanyl. Unfortunately at this time of night we are not able to verify this on our records, or by contacting the clinic. We are attempting to do a nonstress test, but the patient is notably unpleasant and uncooperative with obstetrics nursing staff for facilitating this. We will continue in her best efforts to help the patient and to determine safety of the baby. 3:45 AM Unfortunately Ina was not willing to complete her stay for prolonged monitoring. The patient promptly pulled out her IV, did not tolerate monitors, and left the emergency department. I was not able to discuss the completion of her care or discharge with her. Patient left against our medical advice and recommendations. HPI General Date/Time Provider Initiated Documentation: 04/23/22 01:44 . HPI Narrative: 32-year-old female with a past medical history of polysubstance abuse, bipolar disorder, previous endocarditis, with mitral valve replacement, hepatitis C, who is currently 29 weeks presents today for pelvic pain. Patient states that she has been regularly taking fentanyl, and then stopped about 2 days ago. Since then she has felt horrible, has had pelvic pain, increased urinary frequency, and felt like I am losing fluid in my abdomen. She denies any cocaine use or methamphetamine use. She was discharged from the [facility] clinic in October 2021. She has not been vaccinated for COVID, but did develop COVID-19 this past year. She was brought in by EMS this evening. She is concerned for withdrawing and the pain that she is feeling. No other complaints at this time. She denies any vaginal discharge or vaginal bleeding. She denies any new numbness or tingling. She does admit to nausea vomiting and occasional diarrhea. Related Data Home Medications Medication Instructions Recorded Confirmed gabapentin 800 mg tablet 800 mg PO TID 11/08/21 04/23/22 lorazepam 0.5 mg tablet 0.5 mg PO BID 11/08/21 04/23/22 dexmethylphenidate 30 mg 40 mg PO DAILY AM 11/15/21 04/23/22 capsule,extended release -75 (Focalin XR) methadone 10 mg/mL oral concentrate 70 mg PO DAILY 11/15/21 04/23/22 Allergies Allergy/AdvReac Type Severity Reaction Status Date / Time No Known Drug Allergies Allergy Unverified 04/23/22 01:45 General Stated Complaint: DrugWithdr/MAT PATRICIA: 3 Review of Systems All systems reviewed & are unremarkable except as noted in HPI and below PFSH All Active Problems (Updated 04/23/22 @ 03:38 by Arie Verduzco DO) (Acute) Drug withdrawal (Acute) Polysubstance abuse (Acute) Anxiety (Chronic) Bipolar disorder (Chronic) (Acute) Opioid dependence (Acute) Abscess of left index finger (Acute) Cellulitis (Acute) Chest pain (Acute) Abdominal pain (Acute) Eloped from emergency department (Acute) Headache (Acute) Drug reaction (Acute) Bronchitis (Acute) Reactive airway disease (Acute) Arm numbness left (Acute) Cough (Acute) Methadone dependence (Chronic) Noncompliance with medication regimen (Acute) Endocarditis (Acute) History of intravenous drug abuse (Acute) Frequent headaches (Acute) Lower extremity edema (Acute) Left shoulder pain (Acute) Medical History Anxiety Bronchitis Chest pain COVID-19 Discharge planning issues DVT prophylaxis Early stage of Endocarditis GERD (gastroesophageal reflux disease) Hepatitis C History of recurrent UTIs Iron deficiency anemia IV drug abuse Nephrolithiasis Obesity Sepsis Surgical History S/P ERCP S/P laparoscopic cholecystectomy S/P mitral valve replacement 4 years ago at [facility] Family History Father Substance use disorder Social History Smoking/Tobacco Use Status: Current every day Tobacco Type: cigarettes Smoking risk assessment performed?: Yes Alcohol Intake: never Drug use: Daily Substance use type: heroin, opiates, painkillers and other Details: states she uses fentanyl last 2 days ago Do you feel safe at home: Yes Do you feel safe in your relationship?: Yes Additional Social history: homeless, bouncing around to different houses of friends. Exam Narrative Exam Narrative: 1.Const: Well-nourished, Well-developed, appearing stated age 2.Eyes: PERRL, no conjunctival injection, and symmetrical lids. 3.ENT: Atraumatic external nose and ears. Dry MM. Neck: Symmetric, trachea midline, No thyromegaly. 4.CVS: +S1/S2,Peripheral pulses 2+ and equal in all extremities. Brisk capillary refill in all extremities. 5.RESP: Unlabored respiratory effort. Minimal wheezes, no rhonchi or rales. 6.GI: Soft, appropriately gravid abdomen. Minimal suprapubic tenderness. No guarding or rebound. Vaginal exam was performed with female nurse Brooklynn at bedside. No bleeding was noted. Cervix was closed. Negative chandelier sign. No discharge noted. 7.MSK: Normocephalic/Atraumatic, Extremities w/o deformity or ttp No cyanosis or clubbing, Normal movement of all extremities 8.Skin: Warm, Dry. No rashes or lesions. 9.Neuro: sack sewer machine II-XII grossly intact. Sensation grossly intact, no focal neurologic deficits. 10.Psych: (AAO) x3. Appropriate mood and affect Course Vital Signs Vital signs: Vital Signs Temperature 36.7 C 04/23/22 01:14 Pulse 87 04/23/22 01:14 Respiratory Rate 18 04/23/22 01:14 Blood Pressure 114/65 04/23/22 01:14 Pulse Oximetry 99 04/23/22 01:14 Temperature 36.7 C 04/23/22 01:14 Temperature Source Temporal Artery Scan 04/23/22 01:14 Pulse 87 04/23/22 01:14 Respiratory Rate 18 04/23/22 01:14 Respiratory Effort 04/23/22 01:20 Respiratory Pattern Normal 04/23/22 01:20 Blood Pressure 114/65 04/23/22 01:14 Blood Pressure Position Supine 04/23/22 01:14 Pulse Oximetry 99 04/23/22 01:14 Oxygen Delivery Method Room Air 04/23/22 01:14 Oxygen Flow Rate 0 04/23/22 01:14 Pain Level 8 04/23/22 01:14 Comment 04/23/22 01:14
[2022-04-23 01:48] LABS: Abs Immature Grans 0.01 10^3/uL (0.0-0.06); Absolute Basophil Count 0.03 10^3/uL (0.0-0.2); Absolute Lymphocyte Count 0.77 10^3/uL (1.2-3.4); Absolute Monocyte Count 0.16 10^3/uL (0.1-0.8); Absolute Neutrophil Count 3.41 10^3/uL (1.2-6.7); Basophils % 0.7; HCT 28.3 % (36.0-46.0); HGB 9.4 g/dL (11.2-15.7); Immature Grans % 0.2; Lymphocytes % 17.6; MCH 29.9 pg (27.0-33.0); MCHC 33.2 % (32.0-36.0); MCV 90 fL (80-95); MPV 9.8 fL (8.0-11.0); Monocytes % 3.7; Neutrophils % 77.8; Platelet Count 227 10^3/uL (130-400); RBC 3.14 10^6/uL (3.93-5.22); RDW 13.4 % (11.7-14.6); RDW-SD 43.8 fL; WBC 4.38 10^3/uL (4.4-10.8)
[2022-04-23] MEDS: Normal Saline 1,000 ML 1000 ML IV (01:48)
[2022-04-23] MEDS: cloNIDine 0.1 MG PATCH TD (02:06)
[2022-04-23 02:19] LABS: ALT 19 U/L (14-59); AST 20 U/L (15-37); Albumin 2.5 g/dL (3.4-5.0); Alkaline Phosphatase 77 U/L (46-116); Anion Gap 8.1 mmol/L (3-11); BUN 4 mg/dL (7-18); Bilirubin, Total 0.2 mg/dL (0.2-1.0); CO2 26.9 mmol/L (21.0-32.0); CREATININE 0.6 mg/dL (0.55-1.02); Calcium 7.9 mg/dL (8.5-10.1); Chloride 104 mmol/L (98-107); Glucose 97 mg/dL (74-106); Lipase 41 U/L (73-393); Potassium 3.5 mmol/L (3.5-5.1); Sodium 139 mmol/L (136-145); Total Protein 5.7 g/dL (6.4-8.2)
[2022-04-23 02:33] LABS: Bilirubin Negative (Negative); Blood Trace-intact (Negative); Clarity Sl Cloudy (Clear); Glucose Negative (Negative); Ketones 40 mg/dL (Negative); Leukocyte Esterase Negative (Negative); Nitrite Negative (Negative); Specific Gravity 1.015 (1.005-1.025); Urobilinogen 0.2 EU/dL (Up TO 0.2)
[2022-04-23 02:40] LABS: Bacteria Few HPF (Negative); Crystals Negative HPF (Negative); Epithelial Cells Many HPF (Negative); Mucus Trace (Negative); Other Cells Few Transitional (Negative); WBC 0-2 HPF (0-5)
[2022-04-23] MEDS: Acetaminophen 500 MG TAB 1000 MG PO (02:40)
[2022-04-23 02:41] LABS: C & S Indicated? No/Sq. Contamination
[2022-04-23 02:50] LABS: *AMPHETAMINES SCREEN URINE Negative (Negative); *BARBITURATES SCREEN URINE Negative (Negative); *BENZODIAZEPINES SCREEN URINE Negative (Negative); Cannabinoids THC Negative (Negative); Cocaine Screen,Urine Positive (Negative); METHADONE URINE SCREEN Negative (Negative); OPIATES URINE SCREEN Negative (Negative)
[2022-04-23 02:54] LABS: Tricyclic Antidepressants Negative (Negative)
== END 2022-04-23 04:00 | disposition home or self-care (01) ==
PROVIDERS: Emergency Provider Student in an Organized Health Care Education/Training Program; PCP Family Medicine
DX: O99.343 Other mental disorders complicating pregnancy, third trimester (principal); F14.23 Cocaine dependence with withdrawal; F11.23 Opioid dependence with withdrawal; O26.891 Other specified pregnancy related conditions, first trimester; R10.2 Pelvic and perineal pain; R11.2 Nausea with vomiting, unspecified; T40.5X5A Adverse effect of cocaine, initial encounter; O99.333 Smoking (tobacco) complicating pregnancy, third trimester; F17.210 Nicotine dependence, cigarettes, uncomplicated; Z86.16 Personal history of COVID-19; Z28.310 Unvaccinated for COVID-19; Z53.20 Procedure and treatment not carried out because of patient's decision for unspecified reasons; Z3A.29 29 weeks gestation of pregnancy
CPT/HCPCS: 80053; 80307; 83690; 96360; 99284; 81003; 81015; 85025

== ENCOUNTER 2022-05-13 05:17 | Emergency (ER) | payer MEDICAID, SELFPAY ==
[2022-05-13 05:12] VITALS: BP 127/82; PULSE 69; RESP 28; TEMP 36.8; O2SAT 100
--- NOTE | 2022-05-13 05:15 | RT.EKG_ITS ---
APPROVED REPORT Exam: Resting ECG Reason for Exam: chest pain Patient Location: E HR:66 bpm ECG Measurements Heart Rate 66 AXIS IL 264 P 56 QRSd 97 QRS 95 QT 409 T 30 QTc 429 Conclusion Sinus rhythm...normal P axis, V-rate 60- 99 Prolonged IL interval...IL >210, V-rate 50- 90 Physiican: no stemi, unchanged
--- NOTE | 2022-05-13 05:32 | ED.GENADUL_ITS ---
Discharge Plan Disposition Patient Disposition: AGAINST MEDICAL ADVICE Condition: Serious Discharge Details Chief Complaint: Chest Pain Clinical Impression: Chest pain, Polysubstance abuse Primary Care Provider: Timothy Bliss ED Provider: Arie Verduzco Home Meds and New Rx's Prescriptions: No Action methadone 10 mg/mL Concentrate 70 mg PO DAILY dexmethylphenidate [Focalin XR] 30 mg capsule,ER biphasic 50-50 40 mg PO DAILY AM Label Comments: Take 1 capsule by mouth once a day Take Focalin XR 30 mg q AM and Focalin XR 20 mg q afternoon lorazepam 0.5 mg tablet 0.5 mg PO BID Label Comments: Take 1 tablet by mouth twice a day gabapentin 800 mg tablet 800 mg PO TID Label Comments: Take 1 tablet by mouth three times a day Medical Decision Making 32-year-old female who is a G?5-6? with a past medical history of polysubstance abuse, bipolar disorder, previous endocarditis, with mitral valve replacement, hepatitis C, who is who is currently around 32 weeks , who presents today via EMS for evaluation of chest pain. Patient states that for the last 2 to 3 days she has had central chest pain, it is sharp and achy in nature. It does not go anywhere else. It is worse with breathing, it is worse with movement, it is worse with palpation. Although the patient initially denied any current drug use, she shortly thereafter admitted to both fentanyl and cocaine use within the last 3 days. She is no longer on Suboxone. She denies cough but is coughing here in the ED. She denies fever or chills. She has not had a COVID-vaccine, but she has had COVID. She denies any other complaints at this time. No other modifying factors. No other complaints at this time Exam demonstrates female that is moaning, but in no acute distress. Murmur is easily auscultated. Bedside ultrasound demonstrates no pericardial effusion. No dilated right ventricle. Lung exam demonstrates scattered crackles, and bedside ultrasound shows occasional B-lines and what looks like some spotty infiltrate. Differential includes cardiac etiology. EKG is unremarkable, symptoms inconsistent with STEMI. However myocarditis or endocarditis are certainly of concern. Pericarditis potential. Pulmonary embolism unlikely but on the differential. Pneumonia is of concern based on ultrasound findings. And frankly a musculoskeletal etiology may certainly be the cause as well. Appropriate tests for these concerning etiologies were ordered, however unfortunately after the first blood draw Tamara decided that she needed to leave immediately and was going to go down to the [facility] clinic to try to get plugged back in there. Patient is of a appropriate age to make decisions. The patient is of sound mind, appears clinically sober, and has capacity to make decisions by my clinical exam. We have provided options for treatment and discussed the risks and benefits of these options and refusing these options, including and disability specific to the patient's pathology. Patient is able to discuss the risks and benefits and alternatives of treatment and refusing treatment. We have tried to involve the patient's family or support lexa rojo that was present here or by contacting them on the phone. The patient chooses to leave before evaluation and treatment is complete AGAINST MEDICAL ADVICE. HPI General Date/Time Provider Initiated Documentation: 05/13/22 05:32 . HPI Narrative: 32-year-old female who is a G?5-6? with a past medical history of polysubstance abuse, bipolar disorder, previous endocarditis, with mitral valve replacement, hepatitis C, who is who is currently around 32 weeks pregn ant, who presents today via EMS for evaluation of chest pain. Patient states that for the last 2 to 3 days she has had central chest pain, it is sharp and achy in nature. It does not go anywhere else. It is worse with breathing, it is worse with movement, it is worse with palpation. Although the patient initially denied any current drug use, she shortly thereafter admitted to both fentanyl and cocaine use within the last 3 days. She is no longer on Suboxone. She denies cough but is coughing here in the ED. She denies fever or chills. She has not had a COVID-vaccine, but she has had COVID. She denies any other complaints at this time. No other modifying factors. No other complaints at this time Related Data Home Medications Medication Instructions Recorded Confirmed gabapentin 800 mg tablet 800 mg PO TID 11/08/21 04/23/22 lorazepam 0.5 mg tablet 0.5 mg PO BID 11/08/21 04/23/22 dexmethylphenidate 30 mg 40 mg PO DAILY AM 11/15/21 04/23/22 capsule,extended release [id number] (Focalin XR) methadone 10 mg/mL oral concentrate 70 mg PO DAILY 11/15/21 04/23/22 Allergies Allergy/AdvReac Type Severity Reaction Status Date / Time No Known Drug Allergies Allergy Unverified 04/23/22 01:45 General Stated Complaint: Chest Pain PATRICIA: 2 Review of Systems All systems reviewed & are unremarkable except as noted in HPI and below PFSH All Active Problems (Updated 05/13/22 @ 05:57 by Arie Verduzco DO) (Acute) Drug withdrawal (Acute) Chest pain (Acute) Polysubstance abuse (Acute) Anxiety (Chronic) Bipolar disorder (Chronic) (Acute) Opioid dependence (Acute) Abscess of left index finger (Acute) Cellulitis (Acute) Chest pain (Acute) Abdominal pain (Acute) Eloped from emergency department (Acute) Headache (Acute) Drug reaction (Acute) Bronchitis (Acute) Reactive airway disease (Acute) Arm numbness left (Acute) Cough (Acute) Methadone dependence (Chronic) Noncompliance with medication regimen (Acute) Endocarditis (Acute) History of intravenous drug abuse (Acute) Frequent headaches (Acute) Lower extremity edema (Acute) Left shoulder pain (Acute) Medical History Anxiety Bronchitis Chest pain COVID-19 Discharge planning issues DVT prophylaxis Early stage of Endocarditis GERD (gastroesophageal reflux disease) Hepatitis C History of recurrent UTIs Iron deficiency anemia IV drug abuse Nephrolithiasis Obesity Sepsis Surgical History S/P ERCP S/P laparoscopic cholecystectomy S/P mitral valve replacement 4 years ago at [facility] Family History Father Substance use disorder Social History Smoking/Tobacco Use Status: Current every day Tobacco Type: cigarettes Smoking risk assessment performed?: Yes Alcohol Intake: never Drug use: Daily Substance use type: heroin, opiates, painkillers and other Details: states she uses fentanyl last 2 days ago Do you feel safe at home: Yes Do you feel safe in your relationship?: Yes Additional Social history: homeless, bouncing around to different houses of friends. Exam Narrative Exam Narrative: 1.Const: Well-nourished, Well-developed, appearing stated age 2.Eyes: PERRL, no conjunctival injection, and symmetrical lids. 3.ENT: Atraumatic external nose and ears. Moist MM. Neck: Symmetric, trachea midline, No thyromegaly. 4.CVS: +S1/S2, systolic murmur. Peripheral pulses 2+ and equal in all extremities. Brisk capillary refill in all extremities. Reproducible reproducible left-sided chest wall tenderness. 5.RESP: Unlabored respiratory effort. Scattered crackles throughout. Minimal wheeze on the right. 6.GI: Soft, Nontender/Nondistended, No hepatosplenomegaly. No guarding or rebound. Appropriately gravid abdomen 7.MSK: Normocephalic/Atraumatic, Extremities w/o deformity or ttp No cyanosis or clubbing, Normal movement of all extremities 8.Skin: Warm, Dry. No rashes or lesions. 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 Sensation grossly intact, no focal neurologic deficits. 10.Psych: (AAO) x3. Appropriate mood and affect Course Vital Signs Vital signs: Vital Signs Temperature 36.8 C 05/13/22 05:12 Pulse 69 05/13/22 05:12 Respiratory Rate 28 H 05/13/22 05:12 Blood Pressure 127/82 05/13/22 05:12 Pulse Oximetry 100 05/13/22 05:12 Temperature 36.8 C 05/13/22 05:12 Temperature Source Temporal Artery Scan 05/13/22 05:12 Pulse 69 05/13/22 05:12 Respiratory Rate 28 H 05/13/22 05:12 Respiratory Effort Non-Labored 05/13/22 05:18 Respiratory Depth Normal 05/13/22 05:18 Respiratory Pattern Tachypnea 05/13/22 05:18 Blood Pressure 127/82 05/13/22 05:12 Blood Pressure Position Supine 05/13/22 05:12 Pulse Oximetry 100 05/13/22 05:12 Oxygen Delivery Method Room Air 05/13/22 05:12 Oxygen Flow Rate 0 05/13/22 05:12 Pain Level 8 05/13/22 05:25 Lab/Test Results Lab/Test Results: 05/13/22 05:17 Blood Blood Culture - Pending 05/13/22 05:17 Blood Blood Culture - Pending POCUS Exam (ED) Limited Cardiac Exam DATE OF EXAM: 05/13/22 TIME OF EXAM: 05:54 PROVIDER THAT PERFORMED THE STUDY: Arie Verduzco IS THIS A REPEAT EXAM DURING THIS ENCOUNTER: no REASON FOR EXAM: Chest pain VISUALIZED STRUCTURES: Left ventricle, Right ventricle, Aortic valve, Mitral valve (mechanical) and Interventricular septum VIEW OBTAINED: Parasternal long-axis and Parasternal short-axis PERTINENT FINDINGS/IMPRESSION: No apparent abnormalities; No LV dysfunction, No pericardial effusion and No RV dysfunction DIFFERENTIAL DIAGNOSES: Noncardiac chest Exam complete Limited Thoracic Lung Exam DATE OF EXAM: 05/13/22 TIME OF EXAM: 05:56 PROVIDER THAT PERFORMED THE STUDY: Arie Verduzco IS THIS A REPEAT EXAM DURING THIS ENCOUNTER: No REASON FOR EXAM: Chest pain VISUALIZED STRUCTURES: right lateral, left lateral, right posterior and left posterior PERTINENT FINDINGS/IMPRESSION: B-lines/left side, B-lines/right side and Pneumonia; lung sliding left side, lung sliding left side and no pneumothorax DIFFERENTIAL DIAGNOSES: Scattered B-lines and some scattered consolidation Exam complete
[2022-05-13 06:12] LABS: COVID-19 PCR Negative (Negative); Influenza A PCR Negative (Negative); Influenza B PCR Negative (Negative); RSV PCR Negative (Negative)
[2022-05-13 06:17] LABS: ALT 15 U/L (14-59); AST 18 U/L (15-37); Albumin 2.4 g/dL (3.4-5.0); Alkaline Phosphatase 117 U/L (46-116); Anion Gap 6.4 mmol/L (3-11); BUN 7 mg/dL (7-18); Bilirubin, Total 0.3 mg/dL (0.2-1.0); CO2 27.6 mmol/L (21.0-32.0); CREATININE 0.7 mg/dL (0.55-1.02); Calcium 8.2 mg/dL (8.5-10.1); Chloride 105 mmol/L (98-107); Estimated GFR 117.04 (mL/min/1.73m2); Glucose 99 mg/dL (74-106); Lipase 50 U/L (73-393); NT-proBNP 104 pg/mL (<300); Potassium 4.3 mmol/L (3.5-5.1); Sodium 139 mmol/L (136-145); Total Protein 6.2 g/dL (6.4-8.2); Troponin I < 50 ng/L (<or=60)
[2022-05-13 06:26] LABS: Source Nasopharynx
== END 2022-05-13 05:47 | disposition left against medical advice (07) ==
PROVIDERS: Emergency Provider Student in an Organized Health Care Education/Training Program; PCP Family Medicine
DX: O99.891 Other specified diseases and conditions complicating pregnancy (principal); R07.89 Other chest pain; O99.323 Drug use complicating pregnancy, third trimester; F19.10 Other psychoactive substance abuse, uncomplicated; O99.333 Smoking (tobacco) complicating pregnancy, third trimester; F17.210 Nicotine dependence, cigarettes, uncomplicated; Z20.822 Contact with and (suspected) exposure to COVID-19; Z3A.32 32 weeks gestation of pregnancy; R01.1 Cardiac murmur, unspecified; Z53.20 Procedure and treatment not carried out because of patient's decision for unspecified reasons
CPT/HCPCS: 76604; 80053; 83690; 87040; 87637; 93005; 93308; 96360; 99284; 83880; 84484; 85025; 85379; 93010

== ENCOUNTER 2022-06-12 05:28 | Emergency (ER) | payer MEDICAID, SELFPAY ==
[2022-06-12 05:32] VITALS: BP 130/80; PULSE 81; RESP 22; TEMP 37.2; O2SAT 99
--- NOTE | 2022-06-12 05:32 | ED.GENADUL_ITS ---
Discharge Plan Disposition Patient Disposition: STILL A PATIENT Condition: Stable Discharge Details Clinical Impression: Bilateral lower extremity edema, Third trimester , Polysubstance abuse Primary Care Provider: Timothy Bliss ED Provider: Pavel Block [place] Meds and New Rx's Prescriptions: No Action dexmethylphenidate [Focalin XR] 30 mg capsule,ER biphasic 50-50 40 mg PO DAILY AM Label Comments: Take 1 capsule by mouth once a day Take Focalin XR 30 mg q AM and Focalin XR 20 mg q afternoon gabapentin 800 mg tablet 800 mg PO TID Label Comments: Take 1 tablet by mouth three times a day Medical Decision Making Patient is a 32-year-old female in her third trimester of with very little if any obstetric care and continued active substance abuse now presenting with a chief complaint of bilateral lower extremity pain and swelling. She is also complaining of some chest pain and shortness of breath which she was seen here last month for and signed out AMA prior to any evaluation being completed. She reports that she still has not followed up with OB. She does deny any abdominal pain, contractions, vaginal bleeding or discharge. She has some erythema to the right [place] but has significant pain and swelling to both lower extremities. She has prior history of endocarditis and does continue to occasionally use IV drugs. She is afebrile. She is somnolent but does awaken to voice. Her conversation is minimal and is more related to yes or no answers to my questions. We will attempt to establish IV access and obtain labs including blood cultures. We will document heart rate. Needs bilateral lower extremity ultrasound. Should be seen by OB while here if possible given her lack of follow-up. May require admission depending on findings. Medical Records Medical records reviewed: Yes I reviewed the patient's medical records. HPI General Mode of arrival: EMS . Date/Time Provider Initiated Documentation: 06/12/22 05:32 . Limitations to Documentation: no limitations . Information obtained by: patient . HPI Narrative: Patient presents to ED by ambulance with complaints of bilateral leg pain and swelling, not feeling well, chest pain. Patient is in her third trimester of but has had very little if any OB care. She continues to abuse substances including fentanyl yesterday. She does still occasionally use IV drugs. She denies any fevers or chills. She denies cough. She feels somewhat short of breath. She denies any abdominal pain, pelvic pain, contractions, bleeding. She reports that her legs have become more swollen and painful than they had been over the last couple of days. She denies any injury that she is aware of. She does have a previous history of endocarditis with valve replacement. Related Data Home Medications Medication Instructions Recorded Confirmed gabapentin 800 mg tablet 800 mg PO TID 11/08/21 06/12/22 dexmethylphenidate 30 mg 40 mg PO DAILY AM 11/15/21 06/12/22 capsule,extended release [id number] (Focalin XR) Allergies Allergy/AdvReac Type Severity Reaction Status Date / Time No Known Drug Allergies Allergy Unverified 04/23/22 01:45 General PATRICIA: 2 Review of Systems Unobtainable due to mental status [facility] All Active Problems (Updated 06/12/22 @ 07:29 by Pavel Block MD) Bilateral lower extremity edema (Acute) Third trimester (Acute) Polysubstance abuse (Acute) (Acute) History of recurrent UTIs (Acute) Chest pain (Acute) Anxiety (Chronic) (Acute) Opioid dependence (Acute) Abscess of left index finger (Acute) Cellulitis (Acute) Chest pain (Acute) Abdominal pain (Acute) Eloped from emergency department (Acute) Headache (Acute) Drug reaction (Acute) Bronchitis (Acute) Reactive airway disease (Acute) Arm numbness left (Acute) Cough (Acute) Methadone dependence (Chronic) Noncompliance with medication regimen (Acute) Endocarditis (Acute) Frequent headaches (Acute) Lower extremity edema (Acute) Left shoulder pain (Acute) Medical History Anxiety Bipolar disorder Endocarditis GERD (gastroesophageal reflux disease) Hepatitis C History of intravenous drug abuse Iron deficiency anemia Nephrolithiasis Obesity Polysubstance abuse Surgical History S/P ERCP S/P laparoscopic cholecystectomy S/P mitral valve replacement 4 years ago at [facility] Family History Father Substance use disorder Social History Smoking/Tobacco Use Status: Current every day Tobacco Type: cigarettes Smoking risk assessment performed?: Yes Alcohol Intake: never Drug use: Daily Substance use type: heroin, opiates, painkillers and other Details: Last used fentanyl yesterday as stated by pt Do you feel safe at home: Yes Do you feel safe in your relationship?: Yes Additional Social history: homeless, bouncing around to different houses of friends. Exam Narrative Exam Narrative: Const: Obese female in NAD. HEENT: NC/AT. Normal facial exam. Eyes: Normal conjunctiva and sclera. Neck: Supple. Trachea midline. Lungs: Normal respiratory effort. Lungs are clear. Cor: RRR with murmur. Good distal pulses. GI: Soft and gravid with uterus felt up into epigastric region. Neuro: Somnolent but arouses to conversation. Cranial nerves II - XII grossly intact. No gross motor or sensory deficit. Ext: No C/C. Bilateral lower extremity edema and tenderness from the knees down. Right lower extremity with some erythema to the distal anterior tibia. DP pulse strong bilaterally. Skin: Warm and dry with bilateral lower extremity sores and scabs. Sign Out Sign Out Data: Sign Out Comment: pending labs, U/S, OB consult Last updated by Pavel Block MD at 06/12/22 07:25
[2022-06-12 05:35] VITALS: RESP 22
--- NOTE | 2022-06-12 05:45 | RT.EKG_ITS ---
APPROVED REPORT Exam: Resting ECG Reason for Exam: Patient Location: E HR:77 bpm ECG Measurements Heart Rate 77 AXIS TX 251 P 61 QRSd 94 QRS 97 QT 370 T 17 QTc 420 Conclusion Sinus rhythm...normal P axis, V-rate 60- 99 Prolonged TX interval...TX >210, V-rate 50- 90 Probable left atrial enlargement...P >50mS, <-0.10mV V1
--- OUTSIDE RECORDS SUMMARY | 2022-06-12 06:19 | XMS_ITS | Clinical Summary ---
:1990 Author Organization [facility] [place] [address] Care Team Providers Name Role Phone Linda Gunn APRN Primary Care Provider Allergies No known active allergies Medications Medication Sig Dispensed Refills Start Date End Date Status gabapentin Take 300 mg by 0 Acti ve (NEURONTIN) 300 mg mouth 3 times Capsule daily. hydrOXYzine (ATARAX) Take 50 mg by mouth 0 Active 50 mg Tablet every 8 hours as needed for Itching. methadone (METHADOSE) Take 105 mg by 0 Active 10 mg/5 mL Solution mouth daily. morphine 10 mg/5 mL Take 5 mLs by mouth 50 mL 0 02/02/2019 Active Solution every 4 hours as needed for Pain. mupirocin (BACTROBAN) Apply 1 each 0 02/02/2019 Active 2 % Ointment topically 3 times daily. ibuprofen Take 1 tablet by 15 tablet 0 02/02/2019 Ac tive (ADVIL;MOTRIN) 800 mg mouth every 8 hours Tablet as needed for Pain. Active Problems Problem Noted Date Opioid dependence, uncomplicated 02/03/2019 Cholelithiasis without cholecystitis 02/03/2019 Cholangitis 01/31/2019 Choledocholithiasis 01/30/2019 Social History Tobacco Use Types Packs/Day Years Used Date Current Every Day Smoker Smokeless Tobacco: Never Used Alcohol Use Standard Drinks/Week Comments Not Currently 0 (1 standard drink = 0.6 oz pure alcoho l) Sex Assigned at Date Recorded Not on file Last Filed Vital Signs Vital Sign Reading Time Taken Comments Blood Pressure 139/89 02/02/2019 12:29 PM EDT Pulse 67 02/02/2019 12:29 PM EDT Temperature 36.9 ??C (98.4 ??F) 02/02/2019 12:29 PM EDT Respiratory Rate 20 02/02/2019 12:29 PM EDT Oxygen Saturation 100% 02/02/2019 12:29 PM EDT Inhaled Oxygen Concentration - - Weight 103.4 kg (228 lb) 01/30/2019 4:20 AM EDT Height 180.3 cm (5' 11) 01/30/2019 4:20 AM EDT Body Mass Index 31.8 01/30/2019 4:20 AM EDT Plan of Treatment Health Maintenance Due Date Last Done Comments Covid-19 Vaccine (#1) 1994 HIV screen 2007 Tdap adult 02/16/2008 Tetanus vaccine 02/16/2008 HPV test 2019 PAP Smear 2019 Influenza (Flu) vaccine (1 of - Influenza standard 05/07/2022 series) Hepatitis C Screening Completed 01/30/2019 Insurance Payer Benefit Plan / Subscriber ID Effective Dates Phone Addre ss Type Group [place] [id number] 2019-[employer]ra [phone] [address] [place], [place] [address] Advance Directives Latest Code Status on File Code Status Date Activated Date Inactivated Comments Full Code 01/30/2019 4:36 AM 02/02/2019 3:29 PM Does patient have capacity to make decision: Yes Care Teams Estate Attorney Relationship Specialty Start Date End Date Linda Gunn APRN PCP - General Family Medicine 01/30/19 [address] [place], [place] [id number]
--- OUTSIDE RECORDS SUMMARY | 2022-06-12 06:20 | XMS_ITS | Encounter Summary ---
:1990 Author Organization [facility] [place] [address] Care Team Providers Name Role Phone Linda Gunn APRN Primary Care Provider Reason for Visit Auth/Cert Specialty Diagnoses / Procedures Referred By Contact Refer red To Contact Diagnoses Choledocholithiasis RUQ PAIN/ JAUNDICE Procedures EMERGENCY IPI Referral ID Status Reason Start Date Expiration Date Visits Requ ested Visits Authorized [id number] 1 1 Encounter Details Date Type Department Care Team Description 01/30/2019 Anesthesia Event [place] [facility]elle Armstrong MD [facility] [place] [address] [facility] Ranjeet Benitez MD [facility] [place] [address] [place] [address] Anesthesia Record Procedure Summary Procedure Name Responsible Anesthesia Start Time Anesthesia Stop Time Anesthesiologist ERCP (N/A Trunk) Estelle Armstrong MD 01/30/19 1123 1232 Events Date Time Event Comment 01/30/2019 1024 1123 AN Verify 1123 Start 1127 An Start Data 1132 An Induction 1134 An Intubation 1135 Anesthesia Ready 1216 Procedure Stop 1220 Extubation/LMA Out 1221 an stop data 1232 Recovery or ICU Handoff Patient care was transferred to the destination unit staff after review of the patient's medica l history, current anesthetic/surgi grace status and plan, according to the Provider Handoff Checklist. 1232 Stop Name Total Propofol 200 mg Succinylcholine 100 mg ondansetron (ZOFRAN) injection 4-8 mg 8 mg dexamethasone (DECADRON) injection 8 mg 8 mg Lactated Ringers 1,000 mL Agents Name O2 Air N2O Sevoflurane (et) Blood No blood administrations on file. Lines, Drains, and Airways Type Details Placement Removal PIV 01/29/19; 1999; 22 gauge; 01/29/191999 by Tammy , 02/02/19522 by BRODY Hernandez; site symptomatic; MINDA Garvin RN 02/02/19; 05 PIV 01/30/19; 0613; cephalic 01/30/19 0613 by Varun, 02/02/19 1239 by oral Davila (lateral side of arm), MINDA Bloom Rios on L right; [id number] catheter system; 22 gauge, 1 in length, 3/4 in length; Nguyen Bond RN VAS; distraction, intradermal injection, tolerated well, appears comfortable; 0; 02/02/19; 1239 ETT Mask Ventilation: Not 01/30/19 1134 by Patti, 1220 by Patti Attempted (0); ETT Type: MD Luis Soto MD Cuffed, Oral; ETT Size: 7 mm; Mac Blade: 3; Notes: Asleep, Pre-O2, RSI; Attempts: 1; Laryngoscopy Grade: 1; ETT Placement Verified By: Auscultation, Capnometry, Visual; Secured at Teeth: 23 cm; Inserted by: MD Patti documented in this encounter Social History Tobacco Use Types Packs/Day Years Used Date Current Every Day Smoker Smokeless Tobacco: Never Used Alcohol Use Standard Drinks/Week Comments Not Currently 0 (1 standard drink = 0.6 oz pure alcoho l) Sex Assigned at Date Recorded Not on file documented as of this encounter OR Notes Anesthesia Postprocedure Evaluation - Estelle Armstrong MD - 01/30/2019 12:35 PM EDT Department of Anesthesiology Post-procedure Note Patient: Ina Orellana Procedure Summary Date: 01/30/19 Room / Location: [facility] ENDO 2 / [facility] ENDOSCOPY Anesthesia Start: 1123 Anesthesia Stop: 1232 Procedure: ERCP (N/A Trunk) Diagnosis: (ERCP Dr. Rosales) Surgeon: Weston Dixon MD Responsible Provider: Estelle Armstrong MD Anesthesia Type: general ASA Status: 3 All Anesthesia Providers: Anesthesiologist: Estelle Armstrong MD Vitals Value Taken Time BP 142/85 01/30/2019 12:30 PM Temp Pulse 77 01/30/2019 12:33 PM Resp 13 01/30/2019 12:33 PM SpO2 99 % 01/30/2019 12:33 PM Pain Level Vitals shown include unvalidated device data. Patient Location: PACU/[facility] Level of Consciousness: Awake and Alert Pain Management: Satisfactory Analgesia PONV: PONV Resolved with Rx Cardiovascular Status: At Baseline and Hemodynamically Stable Respiratory Status: At Baseline and Room Air Postoperative Fluid Status: Intravascular EUvolemia Possible Anesthetic Complications: NONE apparent at time of evaluation Final Primary Anesthesia Type: General (The anesthetic type performed was the same as planned.) Comments: ESTELLE ARMSTRONG MD Anesthesia Preprocedure Evaluation - Timothy Rodriguez MD - 01/30/2019 8:16 AM EDT Images from the original note were not included. Pre-Anesthesia Evaluation for: Ina Orellana a 28 y.o. female. Procedure(s): ANESTHESIA CONSULT Patient Active Problem List Diagnosis ??? Choledocholithiasis Past Medical History: Diagnosis Date ??? Hepatitis C ??? Infective endocarditis ??? IV drug abuse Past Surgical History: Procedure Laterality Date ??? CARDIAC SURGERY Social History Tobacco Use ??? Smoking status: Current Every Day Smoker ??? Smokeless tobacco: Never Used Substance Use Topics ??? Alcohol use: Not Currently Social History Substance and Sexual Activity Drug Use Not on file No Known Allergies Medications: MAR and/or home medications have been reviewed. Physical Exam: Most Recent Vitals: 01/30/19 0801 BP: 135/88 Pulse: 67 Resp: 19 Temp: 36.4 ??C (97.5 ??F) SpO2: 99% Body mass index is 31.8 kg/m??. Height: 180.3 cm (5' 11) Weight: 103.4 kg (228 lb) Airway Assessment: Mallampati: I TM distance: >3 FB Neck ROM: full Cardiovascular Assessment: Rate: normal Pulmonary Assessment: breath sounds clear to auscultation Dental Assessment: Misc Assessment: IV access: Peripheral line Anesthesia Plan: ASA 3 general, with a(n) intravenous induction Ina Orellana is a 28yo female, 103.4kg, with a past medical history of IV drug abuse complicated by infective endocarditis status post MVR, hepatitis C, chronic pain on methadone (105mg qd), active smoker, BMI 32, choledocholithiasis, to endoscopy for ERCP. Exercise tolerance somewhat limited by dyspnea, denies orthopnea, coremaker floor referred her back to cardiac rehab recently. Plan: [facility] - Other Informed Consent: Anesthetic plan and risks discussed with patient. Plan discussed with attending. PAT Clinic Note documented in this encounter Plan of Treatment Not on filedocumented as of this encounter Visit Diagnoses Not on filedocumented in this encounter Administered Medications Inactive Administered Medications - up to 3 most recent administrations Medication Order MAR Action Action Date Dose Rate Site dexamethasone (DECADRON) injection 8 Given 01/31/2019 5:15 AM ED T 8 mg mg 8 mg, Intravenous, EVERY 6 HOURS SCHEDULED, First dose on Wed01/30/19 at 1300, Until Discontinued, Routine Given 01/30/2019 6:14 PM EDT 8 mg Given 01/30/2019 12:31 PM EDT 8 mg lactated ringers infusion New Bag 01/30/2019 11:23 AM EDT CONTINUOUS PRN, Starting on Wed01/30/19 at 1123, Until Wed01/30/19 at 1229, Anesthesia Intra-op ondansetron (ZOFRAN) injection 4-8 mg Given 01/30/2019 12:31 PM EDT 8 mg 4-8 mg, Intravenous, EVERY 8 HOURS PRN, Starting on Wed01/30/19 at 0452, Until Negin 02/02/19 at 1529, Nausea, Start with 4mg and if ineffective in 30 minutes, give an additional 4mg If multiple antiemetics are ordered, give ondansetron first. propofol (DIPRIVAN) 10 mg/mL bolus injection Given 11:32 AM EDT 200 mg (Anesthesia) PRN, Starting on Wed01/30/19 at 1132, Until Wed01/30/19 at 1229, Anesthesia Intra-op succinylcholine chloride (Quelicin) Given 01/30/2019 11:32 AM ED T 100 mg injection PRN, Starting on Wed01/30/19 at 1132, Until Wed01/30/19 at 1229, Anesthesia Intra-op, Routine documented in this encounter Care Teams Cartographic Engineer Relationship Specialty Start Date End Date Linda Gunn APRN PCP - General Family Medicine 01/30/19 [address] [place] [address] documented as of this encounter
--- OUTSIDE RECORDS SUMMARY | 2022-06-12 06:20 | XMS_ITS | Encounter Summary ---
:1990 Author Organization [facility] [place] [address] Care Team Providers Name Role Phone Linda Gunn APRN Primary Care Provider Reason for Visit Auth/Cert Specialty Diagnoses / Procedures Referred By Contact Refer red To Contact Diagnoses Choledocholithiasis RUQ PAIN/ JAUNDICE Procedures EMERGENCY IPI Referral ID Status Reason Start Date Expiration Date Visits Requ ested Visits Authorized [id number] 1 1 Encounter Details Date Type Department Care Team Description 01/31/2019 Ancillary Procedure [place] [address] Social History Tobacco Use Types Packs/Day Years Used Date Current Every Day Smoker Smokeless Tobacco: Never Used Alcohol Use Standard Drinks/Week Comments Not Currently 0 (1 standard drink = 0.6 oz pure alcoho l) Sex Assigned at Date Recorded Not on file documented as of this encounter Plan of Treatment Pending Results Name Type Priority Associated Diagnoses Date/Ti me XR ERCP Imaging Storage Only Routine 019 8:33 AM EDT documented as of this encounter Visit Diagnoses Not on filedocumented in this encounter Care Teams Communication Manager Relationship Specialty Start Date End Date Linda Gunn APRN PCP - General Family Medicine 01/30/19 [address] [address] documented as of this encounter
--- OUTSIDE RECORDS SUMMARY | 2022-06-12 06:20 | XMS_ITS | Encounter Summary ---
:1990 Author Organization [facility] [place] [address] Care Team Providers Name Role Phone Linda Gunn APRN Primary Care Provider Encounter Details Date Type Department Care Team Description 01/29/2019 Ancillary Procedure Radiology Library at Arturo Dixon, [facility] [place] [address] GASTROENTEROLOGY [phone] [place] [address] (Wo rk) Social History Tobacco Use Types Packs/Day Years Used Date Never Assessed Sex Assigned at Date Recorded Not on file documented as of this encounter Plan of Treatment Not on filedocumented as of this encounter Procedures Procedure Name Priority Date/Time Associated Diagnosis Comme nts FILM LIBRARY Routine 01/29/2019 11:41 PM Results for this STORAGE ONLY CT EDT procedure ar e in ABDOMEN AND PELVIS the resul ts section. documented in this encounter Results Film Library- Storage Only CT Abdomen & Pelvis (01/29/2019 11:41 PM EDT) Specimen (Source) Anatomical Location Collection Method / Collectio n Time Received Time / Laterality Volume Narrative RAD - 01/29/2019 11:41 PM EDT This exam is auto-finalizing. It's purpo se is for storage only. Weston Dixon MD [facility] [place]RARY ORDERABLES Performing Organization Address City/State/ZIP Code Phon e Number [place], [place] documented in this encounter Visit Diagnoses Not on filedocumented in this encounter Care Teams Wood Borer Relationship Specialty Start Date End Date Linda Gunn APRN PCP - General Family Medicine 01/30/19 [address] [place] [address] documented as of this encounter
--- OUTSIDE RECORDS SUMMARY | 2022-06-12 06:20 | XMS_ITS | Encounter Summary ---
:1990 Author [place] [address] Care Team Providers Name Role Phone Linda Gunn APRN Primary Care Provider Reason for Visit Auth/Cert Specialty Diagnoses / Procedures Referred By Contact Refer red To Contact Diagnoses Choledocholithiasis RUQ PAIN/ JAUNDICE Procedures EMERGENCY IPI Referral ID Status Reason Start Date Expiration Date Visits Requ ested Visits Authorized [id number] 1 1 Encounter Details Date Type Department Care Team Description 02/01/2019 Anesthesia Event Main Operating Room Americo An MD [facility] [place] [address] [place] [address] [phone] Anesthesia Record Procedure Summary Procedure Name Responsible Anesthesia Start Anesthesia Stop Anesthesiologist Time Time LAPAROSCOPIC Americo Lemus MD 02/01/19 0729 02/01/19 1031 CHOLECYSTECTOMY WITH CHOLANGIOGRAM (WRVU 11.47) (N/A Abdomen) Events Date Time Event Comment 02/01/2019 0700 0729 AN Verify 0729 Start 0734 Quick Note Pip-Tazo 3.375 c ontinued and finished for floor 0735 An Start Data 0742 An Induction 0743 An Intubation 0746 Anesthesia Ready 0759 Skin Incision 0807 Quick Note Abd. Insufflatio n. 0836 Break/Relief In Brandon Giovani champion CRNA 0853 Break/Relief Out 1017 Procedure Stop 1023 Extubation/LMA Out 1026 an stop data 1030 Recovery or ICU Handoff Patient care was transferred to the destination unit staff after review of the patient's medica l history, current anesthetic/surgi grace status and plan, according to the Provider Handoff Checklist. 1031 Stop Name Total Midazolam 2 mg fentaNYL 50 mcg IV Lidocaine 40 mg Propofol 200 mg Rocuronium 50 mg Ondansetron 4 mg Dexamethasone 8 mg Dexmedetomidine 8 mcg Lactated Ringers 500 mL Agents Name O2 Air N2O Sevoflurane (et) Blood No blood administrations on file. Lines, Drains, and Airways Type Details Placement Removal PIV 01/29/19; 1999; 22 gauge; 01/29/191999 by Tammy , 02/02/19522 by BRODY Hernandez; site symptomatic; MINDA Garvin RN 02/02/19; 05 PIV 01/30/19; 0613; cephalic 01/30/19 0613 by Varun, 02/02/19 1239 by vein (lateral side of arm), MINDA Bloom, Caryn Tee right; crrz-jbs-xdnfqi catheter system; 22 gauge, 1 in length, 3/4 in length; Nguyen Bond RN VAS; distraction, intradermal injection, tolerated well, appears comfortable; 0; 02/02/19; 1239 ETT Mask Ventilation: Easy (1); 02/01/19 0751 by [facility], 02/01/19 0803 by ETT Type: Cuffed, Oral; ETT LEVAR Garcia William David, Size: 7 mm; Mac Blade: 4; LEVAR Notes: Asleep, Pre-O2, Cricoid Pressure; Attempts: 1; Laryngoscopy Grade: 1; ETT Placement Verified By: Auscultation, Capnometry, Visual; Secured at Teeth: 23 cm Incision 02/01/19; 0800; abdomen; 02/01/19 0800 by Ronald, 05/04/22 1715 by laparoscopic puncture; MINDA Thompson D ierdre L multiple trocar sites.; 05/04/22 (LDA cleanup utility RA#[id number]); 1715 (LDA cleanup utility RA#[id number]) documented in this encounter Social History Tobacco Use Types Packs/Day Years Used Date Current Every Day Smoker Smokeless Tobacco: Never Used Alcohol Use Standard Drinks/Week Comments Not Currently 0 (1 standard drink = 0.6 oz pure alcoho l) Sex Assigned at Date Recorded Not on file documented as of this encounter OR Notes Anesthesia Postprocedure Evaluation - Americo Lemus MD - 02/01/2019 12:19 PM EDT Department of Anesthesiology Post-procedure Note Patient: Ina Orellana Procedure Summary Date: 02/01/19 Room / Location: [address] MAIN OR Anesthesia Start: 728 Anesthesia Stop: 103 Procedure: LAPAROSCOPIC CHOLECYSTECTOMY WITH CHOLANGIOGRAM (WRVU 11.47) (N/A Abdomen) Diagnosis: (LLQ PAIN) Surgeon: Jorden Hogan MD Responsible Provider: Americo Lemus MD Anesthesia Type: general ASA Status: 3 All Anesthesia Providers: Anesthesiologist: Americo Lemus MD FINANCIAL ENGINEER: Saeid Morales CRNA Vitals Value Taken Time BP 126/74 02/01/2019 12:00 PM Temp Pulse 68 02/01/2019 12:14 PM Resp 17 02/01/2019 12:14 PM SpO2 96 % 02/01/2019 12:18 PM Pain Level 0 02/01/2019 12:00 PM Vitals shown include unvalidated device data. Patient Location: PACU/[facility] Level of Consciousness: Awake and Alert Pain Management: Satisfactory Analgesia PONV: None Cardiovascular Status: At Baseline and Hemodynamically Stable Respiratory Status: At Baseline and Room Air Postoperative Fluid Status: Intravascular EUvolemia Possible Anesthetic Complications: NONE apparent at time of evaluation Final Primary Anesthesia Type: General (The anesthetic type performed was the same as planned.) Comments: Americo Lemus MD Anesthesia Preprocedure Evaluation - Americo Lemus MD - 02/01/2019 7:08 AM EDT Images from the original note were not included. Pre-Anesthesia Evaluation for: Ina Orellana a 28 y.o. female. Procedure(s): LAPAROSCOPIC CHOLECYSTECTOMY WITH CHOLANGIOGRAM (WRVU 11.47) Patient Active Problem List Diagnosis ??? Cholangitis ??? Choledocholithiasis Past Medical History: Diagnosis Date ??? Hepatitis C ??? Infective endocarditis ??? IV drug abuse Past Surgical History: Procedure Laterality Date ??? CARDIAC SURGERY ??? PRO ERCP,DIAGNOSTIC N/A 01/30/2019 ERCP performed by Weston Dixon MD at [facility] ENDOSCOPY Social History Tobacco Use ??? Smoking status: Current Every Day Smoker ??? Smokeless tobacco: Never Used Substance Use Topics ??? Alcohol use: Not Currently Social History Substance and Sexual Activity Drug Use Not on file No Known Allergies Medications: MAR and/or home medications have been reviewed. Physical Exam: Most Recent Vitals: 02/01/19 0549 BP: 137/85 Pulse: 60 Resp: 18 Temp: 36.7 ??C (98.1 ??F) SpO2: 99% Body mass index is 31.8 kg/m??. Height: 180.3 cm (5' 11) Weight: 103.4 kg (228 lb) Airway Assessment: Mallampati: I TM distance: >3 FB Neck ROM: full Cardiovascular Assessment: cardiovascular exam normal Pulmonary Assessment: pulmonary exam normal Dental Assessment: Comment: Only 7 remaining teeth on front bottom, chipped, none loose Misc Assessment: Anesthesia Plan: ASA 3 general, with a(n) intravenous induction Attending Assessment: Patient personally seen and examined. 28 y.o. female with h/o IVDU, HCV, infective endocardiits s/p MVR ~end of 2016, admitted with cholangitis and choledocholithiasis, s/p ERCP 01/30/19 with removal one one stone as well as pus proximal toit, now presenting for lap CCY. Denies nausea/GERD on day of surgery. Active 1/2ppd smoker. No recent URI. Denies CP/palpitations/syncope. Low functional status, gets SHERMAN and tachycardic with [address] Recreational drugs: marijuana, no other recreational drugs. No problems with anesthesia in the past. Meds: reviewed, includes methadone 105mg qAM, gabapentin NPO status adequate Last value Range last 24 hrs Heart Rate Heart Rate: 66 Heart Rate: (60-85) Blood Pressure BP: 126/74 BP: (115-147)/(73-92) Respiratory Rate Resp: 12 Resp: (11-26) SpO2 SpO2: 93 % SpO2: (93 %-100 %) Art BP BP (Arterial Line): -- Significant labs: 02/01/19 01/31/19 01/30/19 0620 0351 0605 WBC 9.1 9.1 6.4 HGB 10.7* 12.5 11.6* HCT 32.9* 38.0 35.3* PLATELET 245 292 278 01/30/19 0605 PT 12.6* PTT 38* INR 1.1 02/01/19 01/31/19 01/30/19 0620 0351 0605 NA 143 140 141 K 3.6 4.2 3.5 CL 108* 106 104 CO2 24 23 23 BUN 6* 4* 6* CREATININE 0.80 0.70 0.63* GLUCOSE 117 217* 70 No results for input(s): PHART, [id number], PO2ART, DVK3KHT, BEART in the last 168 hours. Plan: - preop Gabapentin, Methadone 105mg given at 6am on the floor - standard ASA monitors, PIV - GETA The patient was informed of the risks, benefits and alternatives of anesthesia. These risks included, but were not limited to, post-operative nausea and/or vomiting, pain, sore throat, dental/lip injury, and other rare but serious complications such as cardiac instability/arrest, neurologic event, awareness, severe allergic reactions, position-related nerve injuries, and need blood transfusions. All questions sought and answered. Consent was signed and placed in chart. Americo Lemus MD 02/01/2019 Region - Other Informed Consent: Anesthetic plan and risks discussed with patient. Plan discussed with FINANCIAL ENGINEER. PAT Clinic Note documented in this encounter Plan of Treatment Not on filedocumented as of this encounter Visit Diagnoses Not on filedocumented in this encounter Administered Medications Inactive Administered Medications - up to 3 most recent administrations Medication Order MAR Action Action Date Dose Rate Site dexamethasone (DECADRON) injection Given 02/01/2019 8:20 AM EDT 8 mg PRN, Starting on Wed02/01/19 at 0820, Until Wed02/01/19 at 1033, Anesthesia Intra-op, Routine dexmedetomidine (PRECEDEX) injection Given 02/01/2019 8:25 AM EDT 4 mcg PRN, Starting on Wed02/01/19 at 0820, Until Wed02/01/19 at 1033, Anesthesia Intra-op, Routine Given 02/01/2019 8:20 AM EDT 4 mcg fentaNYL 50 mcg/mL multi-dose injection Given 02/01/2019 8:25 AM EDT 25 mcg PRN, Starting on Wed02/01/19 at 0739, Until Wed02/01/19 at 1033, Anesthesia Intra-op, Routine Given 02/01/2019 7:33 AM EDT 25 mcg lactated ringers infusion New Bag 02/01/2019 7:33 AM EDT CONTINUOUS PRN, Starting on Wed02/01/19 at 0733, Until Wed02/01/19 at 1033, Anesthesia Intra-op lidocaine (PF) (XYLOCAINE) 100 mg/5 mL (2 %) Given 9 7:41 AM EDT 40 mg injection PRN, Starting on Wed02/01/19 at 0742, Until Wed02/01/19 at 1033, Anesthesia Intra-op, Routine midazolam (PF) (VERSED) multi-dose injec tion Given 02/01/2019 7:33 AM EDT 2 mg PRN, Starting on Wed02/01/19 at 0733, Until Wed02/01/19 at 1033, Anesthesia Intra-op, Routine ondansetron (ZOFRAN) injection Given 02/01/2019 8:21 AM EDT 4 mg PRN, Starting on Wed02/01/19 at 0821, Until Wed02/01/19 at 1033, Anesthesia Intra-op, Routine propofol (DIPRIVAN) 10 mg/mL bolus injection Given 7:42 AM EDT 200 mg (Anesthesia) PRN, Starting on Wed02/01/19 at 0742, Until Wed02/01/19 at 1033, Anesthesia Intra-op rocuronium (ZEMURON) multi-dose injectio n Given 02/01/2019 7:42 AM EDT 50 mg PRN, Starting on Wed02/01/19 at 0742, Until Wed02/01/19 at 1033, Anesthesia Intra-op, Routine documented in this encounter Care Teams Peanut Blancher Relationship Specialty Start Date End Date Linda Gunn APRN PCP - General Family Medicine 01/30/19 [address] [place] [address] documented as of this encounter
--- OUTSIDE RECORDS SUMMARY | 2022-06-12 06:20 | XMS_ITS | Encounter Summary ---
:1990 Author Organization [facility] [place] [address] Care Team Providers Name Role Phone Linda Gunn APRN Primary Care Provider Reason for Visit Auth/Cert Specialty Diagnoses / Procedures Referred By Contact Refer red To Contact Diagnoses Choledocholithiasis RUQ PAIN/ JAUNDICE Procedures EMERGENCY IPI Referral ID Status Reason Start Date Expiration Date Visits Requ ested Visits Authorized [id number] 1 1 Encounter Details Date Type Department Care Team Description 01/30/2019 - Hospital Encounter 3 [facility] [place] [address] 02/02/2019 [facility] [place] [address] [place] [id number] Social History Tobacco Use Types Packs/Day Years Used Date Current Every Day Smoker Smokeless Tobacco: Never Used Alcohol Use Standard Drinks/Week Comments Not Currently 0 (1 standard drink = 0.6 oz pure alcoho l) Sex Assigned at Date Recorded Not on file documented as of this encounter Last Filed Vital Signs Vital Sign Reading [...] Mass Index 31.8 01/30/2019 4:20 AM EDT documented in this encounter Discharge Summaries Melissa Vinson MD - 02/02/2019 1:29 PM EDT Discharge Summary Patient Name: Ina Orellana Patient Age: 28 y.o. Language: Icelandic Race: White Ethnicity: Not nor Admit date: 01/30/2019 Discharge date and time: 02/01/2019 Attending Physician: MELISSA VINSON MD Discharge Diagnoses (Hospital Problems) and Secondary Diagnoses (Chronic Problems): Active Hospital Problems Diagnosis ??? Choledocholithiasis ??? Cholelithiasis without cholecystitis ??? Cholangitis ??? Opioid dependence, uncomplicated Resolved Hospital Problems No resolved problems to display. Past Medical History: Diagnosis Date ??? Hepatitis C ??? Infective endocarditis ??? IV drug abuse Operations/Major Procedures: ERCP 01/30/2019 LAPAROSCOPIC CHOLECYSTECTOMY WITH CHOLANGIOGRAM 02/01/2019 History of Presentation: (From admission H&P) Ina Orellana is a 28 y.o. female with a past medical history of IV drug abuse complicated by infective endocarditis status post open heart surgery for mitral valve replacement, hepatitis C, chronic pain disorder who is on methadone presented to outside hospital with 5 days of epigastric and right upper quadrant abdominal pain with associated nausea and vomiting. ?? Patient had a total of 4 visits to outside hospital ED and last 5 days because of abdominal pain with associated nausea and vomiting. Patient states that she has chronic constipation and would have on and off denies abdominal discomfort however this time she continued to have severe abdominal pain in the epigastric and right upper quadrant region. The pain initially started in right upper quadrant region. The pain was cramp like and episodic. It was associated with abdominal bloating and nausea and vomiting. He has not been able to eat anything for last 2 days. She had normal LFTs on 01/26/[address] scan was done at that time which was normal. She was told that she has a constipation that is the c ause of her pain. She was given an enema and suppository that resulted in a large bowel movement butshe continued to have abdominal pain. Today she was jaundiced and her mom noticed that her stools are light in color. She also endorses dark discoloration of the urine. She endorses subjective fever and chills. Although no check her temperature. She was afebrile at outside hospital. ?? At outside hospital she was found to have AST of 90, ALT of 196, alk phos of 263, lipase 52, total bilirubin 7.3. CT scan of the abdomen and pelvis was repeated that showed intra-and extrahepatic biliary dilatation. It also showed cholelithiasis. Hospital Course: Admitted to Hospital Medicine on 01/30/19. # Choledocholithiasis # Cholangitis # Cholelithiasis On 01/30, patient underwent ERCP with sphincterotomy and removal of a stone and some pus from the bile duct. IV piperacillin/tazobactam was started given the findings of pus (although the patient never had any systemic signs of infection), and pain was controlled with IV and oral pain medications. The p joanie's pain improved after ERCP, and her bilirubin levels downtrended. On 01/31, General Surgery was consulted and performed a laparoscopic cholecystectomy without complication on 02/01. Blood culturesobtained on 01/30 showed no growth to date by discharge on 02/01. She had significant pain related to her incisions post-operatively but otherwise did well. She did have some erythema, warm, and tenderness surrounding her umbilical incision that may have just been inflammatory, but discharged her with topical bactroban ointment for the incision and a 7-day course of bactrim to cover in case of a developing cellulitis (as well as to round out treatment of a mild cholangitis, although the ERCP/sphincterotomy and 3 days of zosyn were likely all the treatment she needed for this). #Hx of positive Hepatitis C antibody Hep C PCR showed no detectable viral load consistent with her having cleared the infection. #Chronic pain, hx of IV drug use Patient was continued on her maintenance dose of 105 mg methadone daily, as well as gabapentin 300 mg three times a day. Post-ERCP/Post-operative pain was controlled with her outpatient pain medicine and additional toradol plus as needed tylenol and po/iv morphine. She was discharged with a plan to continue her usual methadone and gabapentin, use tylenol and ibuprofen first-line for post-op pain, andtake po liquid morphine (of which a limited amount was prescribed) for pain not controlled with the other agents. Vital Signs at Discharge: BP: 139/89, Heart Rate: 67, Temp: 36.9 ??C (98.4 ??F), Resp: 20, BMI (Calculated): 31.8 Height: 180.3 cm (5' 11) (01/30/19419) Weight: 103.4 kg (228 lb) (01/30/19419) Important Studies and Lab Data: Labs: Recent Labs 02/02/1960502/01/1961901/31/19350 WBC 8.7 9.1 9.1 HGB 10.7* 10.7* 12.5 HCT 33.1* 32.9* 38.0 PLATELET 266 245 292 Recent Labs 02/02/1960502/01/19 0601/31/19 035 NA 141 143 140 K 3.5 3.6 4.2 CL 102 108* 106 CO2 28 24 23 BUN 8 6* 4* CREATININE 0.70 0.80 0.70 Recent Labs 02/02/1960502/01/1961901/31/19 035 AST 30 33* 78* ALT 71* 88* 124* ALKPHOS 162* 179* 244* BILITOT 1.4* 1.8* 5.2* BILIDIR 0.8* 1.0* 4.1* Recent Labs 02/02/1960502/01/1961901/31/19 03501/30/19 06 CALCIUM 8.7 8.6 9.1 8.4* MAGNESIUM -- -- -- 0.73 PHOS -- -- -- 2.4* No results for input(s): CK, TROPONINT in the last 168 hours. Recent Labs 01/30/19 06 PT 12.6* PTT 38* INR 1.1 LIPASE (01/30): 9 C DIFF SCREEN (01/31): negative Hep C viral load (01/30): undetectable Other Studies: 01/30/2019 ERCP Impression: ?- A filling defect consistent with a stone was seen on the cholangiogram. ??- The entire main bile duct was dilated, with a stone causing an obstruction. - Choledocholithiasis was found. - Complete removal was accomplished by biliary sphincterotomy, DASE and balloon extraction. Pending Studies and Lab Data: none Discharge Conditions/Prognosis: good Discharge to: home Updated Allergies/ADRs: No Known Allergies Immunizations: There is no immunization history on file for this patient. Discharge Medications: Your Medications New Medications Dose Details ibuprofen 800 mg Tab Commonly known as: ADVIL;MOTRIN Take 1 tablet by mouth every 8 hours as needed for Pain. 800 mg Quantity: 15 tablet Refills: 0 morphine 10 mg/5 mL Soln Take 5 mLs by mouth every 4 hours as needed for Pain. 10 mg Quantity: 50 mL Refills: 0 mupirocin 2 % Oint Commonly known as: BACTROBAN Apply 1 each topically 3 times daily. 1 each Refills: 0 sulfamethoxazole-trimethoprim 800-160 mg Tab Commonly known as: BACTRIM DS Take 1 tablet by mouth 2 times daily for 7 days. 1 tablet Quantity: 14 tablet Refills: 0 Continued medications, unchanged Dose Details gabapentin 300 mg Cap Commonly known as: NEURONTIN Take 300 mg by mouth 3 times daily. 300 mg Refills: 0 hydrOXYzine 50 mg Tab Commonly known as: ATARAX Take 50 mg by mouth every 8 hours as needed for Itching. 50 mg Refills: 0 methadone 10 mg/5 mL Soln Commonly known as: Methadose Take 105 mg by mouth daily. 105 mg Refills: 0 Smoking Status at Discharge: Social History Tobacco Use Smoking Status Current Every Day Smoker Smokeless Tobacco Never Used Instructions Given to Patient at Discharge: General Instructions Instructions following Laparoscopic Surgery Wound Care: You may now shower and get incisions wet. Pat dry immediately following. Do not scrub them vigorously for the next 2-3 weeks. Do not soak incision(s) under water for the next 2 weeks (i.e. soaking in bath or swimming) as this may promote a wound infection. Your stitches will dissolve and do not need to be removed. Activity: No heavy lifting more than 10 pounds for the next 4 weeks, then you may gradually lift heavier objects as tolerated by discomfort. Otherwise activity as tolerated by your comfort level. Call Doctor for: Please call if you notice worsening redness or drainage from incision(s) lasting longer than 5 days after your surgery, any foul-smelling drainage from the incision, pain not controlled by pain medications, persistent nausea and vomiting, or for any fevers greater than 101.3 F. The number for questions is [phone] before 5 PM weekdays and [phone] after 5 PM and weekends. Pain Medication: Unless you cannot take ibuprofen, take ibuprofen (Motrin or Advil) 600 mg three times a day with meals and acetaminophen (Tylenol) 650 mg three times a day between the ibuprofen doses until your pain is gone. Only use the opioid if you still have pain after taking ibuprofen and acetaminophen. Follow-up: Follow-up appointment will be scheduled in the general surgery clinic in 4 weeks. Appointment will be mailed to you. Please call [phone] to confirm date and time of your appointment if you do not receive your apointment in 3 weeks. No future appointments. Future Appointments and Orders Future Appointments and Orders Future Appointments Provider Department Dept Phone 03/03/2019 9:30 AM Christiane Aviles APRN [facility] [place] Arrive at: [facility] Inpatient Provider Contact Information: For questions regarding this document or issues relating to this hospitalization on the Medical Service, please contact your inpatient physician through the [facility] [place] [facility] [employer] . Issues after hours and on weekends will be handled by the Hospitalist staff on-call. documented in this encounter Discharge Instructions Discharge InstructionsMelissa Vinson MD - 02/02/2019 1:18 PM EDT Instructions following Laparoscopic Surgery Wound Care: You may now shower and get incisions wet. Pat dry immediately following. Do not scrub them vigorously for the next 2-3 weeks. Do not soak incision(s) under water for the next 2 weeks (i.e. soaking in bath or swimming) as this may promote a wound infection. Your stitches will dissolve and do not need to be removed. Activity: No heavy lifting more than 10 pounds for the next 4 weeks, then you may gradually lift heavier objects as tolerated by discomfort. Otherwise activity as tolerated by your comfort level. Call Doctor for: Please call if you notice worsening redness or drainage from incision(s) lasting longer than 5 days after your surgery, any foul-smelling drainage from the incision, pain not controlled by pain medications, persistent nausea and vomiting, or for any fevers greater than 101.3 F. The number for questions is [phone] before 5 PM weekdays and [phone] after 5 PM and weekends. Pain Medication: Unless you cannot take ibuprofen, take ibuprofen (Motrin or Advil) 600 mg three times a day with meals and acetaminophen (Tylenol) 650 mg three times a day between the ibuprofen doses until your pain is gone. Only use the opioid if you still have pain after taking ibuprofen and acetaminophen. Follow-up: Follow-up appointment will be scheduled in the general surgery clinic in 4 weeks. Appointment will be mailed to you. Please call [phone] to confirm date and time of your appointment if you do not receive your apointment in 3 weeks. No future appointments. documented in this encounter Medications at Time of Discharge Medication Sig Dispensed Refills Start Date End Date morphine 10 mg/5 mL Take 5 mLs by mouth 50 mL 0 019 Solution every 4 hours as needed for Pain. mupirocin (BACTROBAN) 2 Apply 1 each 0 02/02/2019 % Ointment topically 3 times daily. ibuprofen (ADVIL;MOTRIN) Take 1 tablet by 15 tablet 0 02/02 800 mg Tablet mouth every 8 hours as needed for Pain. gabapentin (NEURONTIN) Take 300 mg by mouth 0 300 mg Capsule 3 times daily. hydrOXYzine (ATARAX) 50 Take 50 mg by mouth 0 mg Tablet every 8 hours as needed for Itching. methadone (METHADOSE) 10 Take 105 mg by mouth 0 mg/5 mL Solution daily. sulfamethoxazole-trimeth Take 1 tablet by 14 tablet 0 02/0202/09/2019 oprim (BACTRIM DS) mouth 2 times daily 800-160 mg Tablet for 7 days. documented as of this encounter Progress Notes Melissa Vinson MD - 02/02/2019 1:29 PM EDT Hospital Medicine - Attending Day of Discharge Documentation Discharge diagnosis Active Hospital Problems Diagnosis ??? Choledocholithiasis ??? Cholelithiasis without cholecystitis ??? Cholangitis ??? Opioid dependence, uncomplicated Resolved Hospital Problems No resolved problems to display. Secondary Issues Past Medical History: Diagnosis Date ??? Hepatitis C ??? Infective endocarditis ??? IV drug abuse I have personally seen and examined the patient and they are ready for discharge. or I spent >30 minutes (Day of Discharge Code 14275) involved in the final examination of the patient, discussion of the hospital stay, instructions for continuing care to all relevant caregivers, and preparation of discharge records, prescriptions and referral forms. Plans ? Discharge to home ? Follow-up scheduled with PCP ? Please see the Discharge Summary for complete details of any medication changes and additional plans. MELISSA VINSON MD 02/02/2019 Tere Sen RN - 02/02/2019 1:28 PM EDT Pt discharged to home via private vehicle at approximately 1:30PM. VSS. IV removed per order. AVS printed and reviewed with patient. All belongings packed up and discharged with patient. Que oCrnell MSW - 02/02/2019 9:28 AM EDT STAFF PSYCHIATRIST met with pt to discuss support network and transportation home at time of dc. Pt reports that her mother's best friend fortino menjivar, and pt BF will be picking her up today @ 12. Pt has identified otto as a consistent support in her life. Pt also connected with [facility] ([address] [place] [address] [place] [address] ) for medication assisted treatment with methodone administration. Pt attends counseling services through [facility] ([address] [place] [address] [phone]) Melissa Vinson MD - 02/01/2019 6:07 PM EDT Hospital Medicine Attending Daily Progress Note Admit Date: 01/30/2019 Hospital Day 2 days Active Hospital Problems Diagnosis ??? Cholangitis ??? Choledocholithiasis Resolved Hospital Problems No resolved problems to display. Past Medical History: Diagnosis Date ??? Hepatitis C ??? Infective endocarditis ??? IV drug abuse Inpatient Medications: Scheduled ??? ketorolac 30 mg Intravenous Q6H ??? pantoprazole 40 mg Oral Daily ??? gabapentin 300 mg Oral Q8H GRACE ??? methadone (Methadose) oral liquid 105 mg Oral QAM ??? melatonin 6 mg Oral Nightly ??? sodium chloride 0.9 % 5 mL Intravenous BID ??? piperacillin-tazobactam 3.375 g Intravenous Q8H Continuous infusions: PRN: lidocaine, BUpivacaine-EPINEPHrine, iohexol, morphine, morphine, calcium carbonate, loperamide,acetaminophen, hydrOXYzine, sodium chloride 0.9 %, lidocaine, ondansetron OR ondansetron Interval History / ROS: -underwent lap gianfranco this AM with no complications -having a lot of pain post-op -otherwise no new complaints -diarrhea resolved -no F/C Physical Exam Vitals Range last 24 hrs Temperature Temp: [36.6 ??C (97.9 ??F)-37.1 ??C (98.8 ??F)] Heart Rate Heart Rate: [60-78] Blood Pressure BP: (126-147)/(73-92) Respiratory Rate Resp: [11-26] SpO2 SpO2: [93 %-100 %] Intake/Output Summary (Last 24 hours) at 02/01/2019 1807 Last data filed at 02/01/2019 1235 Gross per 24 hour Intake 3143 ml Output 850 ml Net 2293 ml Patient Vitals for the past 168 hrs: Weight 01/30/19 0420 103.4 kg (228 lb) Body mass index is 31.8 kg/m??. Physical Exam AAO, NAD, obese Icterus more or less resolved RRR CTAB Soft, nondistended, slight RUQ tenderness No c/c/e Studies reviewed in eDH. Remarkable for the following: LABS: Last 3 wbc, hgb, hct plt Recent Labs 02/01/19 0601/31/1935001/30/19 06 WBC 9.1 9.1 6.4 HGB 10.7* 12.5 11.6* HCT 32.9* 38.0 35.3* PLATELET 245 292 278 Last 3 Lytes Recent Labs 02/01/19 0601/31/19 03501/30/19 06 NA 143 140 141 K 3.6 4.2 3.5 CL 108* 106 104 CO2 24 23 23 BUN 6* 4* 6* CREATININE 0.80 0.70 0.63* Last 3 LFTs Recent Labs 02/01/19 0601/31/1935001/30/19 06 AST 33* 78* 73* ALT 88* 124* 128* ALKPHOS 179* 244* 235* BILITOT 1.8* 5.2* 6.8* BILIDIR 1.0* 4.1* 5.7* Last Ca, Mg, Phos Recent Labs 02/01/19 0601/30/19 06 CALCIUM 8.6 < > 8.4* PHOS -- -- 2.4* < > = values in this interval not displayed. Last 3 Coags Recent Labs 01/30/19 06 PT 12.6* INR 1.1 PTT 38* FSBG Trend No results for input(s): POCGLU in the last 72 hours. MICRO: No results for input(s): URINECULTURE in the last 720 hours. No results for input(s): GRAMSTAIN, BFCX, LOWERRESPCX, TISSUECX in the last 720 hours. Recent Labs 01/30/19 0601/30/19 0721 BLOODCX No growth at 2 days. No growth at 2 days. ECG: No results for input(s): DIAGLINE, QTCCALC in the last 720 hours. VASCULAR: No results for input(s): VBTEXTRPT in the last 720 hours. IMAGING: CT abdomen pelvis: biliary ductal dilatation, cholelithiasis ? Assessment: 28 yo woman w/ a history of IV drug abuse complicated by infective endocarditis s/p bioprosthetic mitral valve replacement, hepatitis C, on methadone who presented to outside hospital with 5 days of epigastric and right upper quadrant abdominal pain with associated nausea and vomiting. At outside hospital she was found to have AST of 90, ALT of 196, alk phos of 263, lipase 52, total bilirubin 7.3. CTscan of the abdomen and pelvis was repeated that showed intra- / extra- hepatic biliary ductal dilatation and also cholelithiasis. ?? Plan: # Choledocholithiasis, cholangitis, cholelithiasis: -s/p ERCP with sphincterotomy and removal of stone and pus -continue zosyn for now given pus seen on ERCP (although no signs of systemic infection) - follow blood cx's -Gen Surg consulted for cholecystectomy - s/p lap gianfranco today 02/01 -pain control -continue her usual methadone 105 mg qd -transition to prn po/iv morphine (pt feels like morphine works better than dilaudid for her) -scheduled toradol for now -tylenol prn # Diarrhea -C diff negative -likely due to some combination of recent laxative use, antibiotics, and bile acid induced diarrhea after relief of CBD obstruction -prn imodium -now resolved # History of hepatitis C: -HCV PCR pending ?? IV access: iv Tubes/Drains: none DVT PPX: lovenox Anticipated Disposition: home, likely tomorrow Goals of Care: Full Code Team Pager( Coverage 29/03): #[phone] PCP: Linda Gunn APRN [phone] Attestation: IPI Certification I certify that I am a [facility] credentialed attending provider with admitting privileges and that the patient meets or has met medical necessity to require an inpatient IPI level of care meeting a minimum of two midnights or is on the CMS inpatient only procedure list (status C) due to: Choledocholithiasis/ cholangitis and cholelithiasis requiring iv abx and cholecystectomy during this admission. MELISSA VINSON MD 02/01/2019 Iraida Townsend RN - 02/01/2019 12:45 PM EDT Arrived from OR in bed. Attached to monitors and alarms set appropriately for patient. Patient tearful and agitated at times. Patient reporting so much pain IV dilaudid given per NOV. PACU resident made aware, 0.5 mg versed given. 1235: Patient reporting need to pee so bad unable to use bedpan, would like to use BR when back inroom. 1240: Report called to MINDA Bella 1245: Patient transported to room, OOB to bathroom, stready gait Melissa Vinson MD - 01/31/2019 3:45 PM EDT Hospital Medicine Attending Daily Progress Note Admit Date: 01/30/2019 Hospital Day 1 day Active Hospital Problems Diagnosis ??? Cholangitis ??? Choledocholithiasis Resolved Hospital Problems No resolved problems to display. Past Medical History: Diagnosis Date ??? Hepatitis C ??? Infective endocarditis ??? IV drug abuse Inpatient Medications: Scheduled ??? methadone (Methadose) oral liquid 105 mg Oral Daily ??? pantoprazole 40 mg Oral Daily ??? gabapentin 300 mg Oral TID ??? sodium chloride 0.9 % 5 mL Intravenous BID ??? piperacillin-tazobactam 3.375 g Intravenous Q8H Continuous infusions: ??? sodium chloride 0.9% 1,000 mL (01/31/19 1044) PRN: calcium carbonate, loperamide, hydrOXYzine, sodium chloride 0.9 %, lidocaine, ondansetron OR ondansetron, HYDROmorphone Interval History / ROS: -underwent ERCP yesterday with removal of stone and pus from CBD - started on zosyn given the pus (but no systemic evidence of infection) -inadvertently given iv dexamethasone overnight and has been somewhat manic overnight and this morning on the steroids -developed diarrhea yesterday/overnight - C diff screen sent - returned negative today -otherwise doing well -looks and feels better with resolving jaundice and much improved abdominal pain and appetite Physical Exam Vitals Range last 24 hrs Temperature Temp: [36.3 ??C (97.3 ??F)-37.1 ??C (98.8 ??F)] Heart Rate Heart Rate: [63-111] Blood Pressure BP: (120-139)/(71-95) Respiratory Rate Resp: [15-20] SpO2 SpO2: [97 %-98 %] Intake/Output Summary (Last 24 hours) at 01/31/2019 1545 Last data filed at 01/31/2019 0500 Gross per 24 hour Intake -- Output 1800 ml Net -1800 ml Patient Vitals for the past 168 hrs: Weight 01/30/19 0420 103.4 kg (228 lb) Body mass index is 31.8 kg/m??. Physical Exam AAO, NAD, obese Icterus more or less resolved RRR CTAB Soft, nondistended, slight RUQ tenderness No c/c/e Studies reviewed in eDH. Remarkable for the following: LABS: Last 3 wbc, hgb, hct plt Recent Labs 01/31/19 0351 01/30/19 0605 WBC 9.1 6.4 HGB 12.5 11.6* HCT 38.0 35.3* PLATELET 292 278 Last 3 Lytes Recent Labs 01/31/19 0351 01/30/19 0605 NA 140 141 K 4.2 3.5 CL 106 104 CO2 23 23 BUN 4* 6* CREATININE 0.70 0.63* Last 3 LFTs Recent Labs 01/31/19 03501/30/19 0605 AST 78* 73* ALT 124* 128* ALKPHOS 244* 235* BILITOT 5.2* 6.8* BILIDIR 4.1* 5.7* Last Ca, Mg, Phos Recent Labs 01/31/19 0351 01/30/19 0605 CALCIUM 9.1 8.4* PHOS -- 2.4* Last 3 Coags Recent Labs 01/30/19 0605 PT 12.6* INR 1.1 PTT 38* FSBG Trend No results for input(s): POCGLU in the last 72 hours. MICRO: No results for input(s): URINECULTURE in the last 720 hours. No results for input(s): GRAMSTAIN, BFCX, LOWERRESPCX, TISSUECX in the last 720 hours. Recent Labs 01/30/19 0605 01/30/19 0721 BLOODCX No growth at 1 day. No growth at 1 day. ECG: No results for input(s): DIAGLINE, QTCCALC in the last 720 hours. VASCULAR: No results for input(s): VBTEXTRPT in the last 720 hours. IMAGING: CT abdomen pelvis: biliary ductal dilatation, cholelithiasis ? Assessment: 28 yo woman w/ a history of IV drug abuse complicated by infective endocarditis s/p bioprosthetic mitral valve replacement, hepatitis C, on methadone who presented to outside hospital with 5 days of epigastric and right upper quadrant abdominal pain with associated nausea and vomiting. At outside hospital she was found to have AST of 90, ALT of 196, alk phos of 263, lipase 52, total bilirubin 7.3. CTscan of the abdomen and pelvis was repeated that showed intra- / extra- hepatic biliary ductal dilatation and cholelithiasis. ?? Plan: # Choledocholithiasis, cholangitis, cholelithiasis: -s/p ERCP with sphincterotomy and removal of stone and pus -continue zosyn for now given pus seen on ERCP (although no signs of systemic infection) - follow blood cx's -Gen Surg consult for cholecystectomy - plan for lap gianfranco tomorrow -pain control -continue her usual methadone 105 mg qd -transition from prn iv dilaudid to prn tylenol and po dilaudid # Diarrhea -C diff negative -> d/c contact precautions -likely due to some combination of recent laxative use, antibiotics, and bile acid induced diarrhea after relief of CBD obstruction -prn imodium # History of hepatitis C: -HCV PCR pending ?? IV access: iv Tubes/Drains: none DVT PPX: lovenox Anticipated Disposition: home, likely in 48hrs Goals of Care: Full Code Team Pager( Coverage 29/03): #[phone] PCP: Linda Gunn APRN [phone] Attestation: IPI Certification I certify that I am a [facility] credentialed attending provider with admitting privileges and that the patient meets or has met medical necessity to require an inpatient IPI level of care meeting a minimum of two midnights or is on the [facility] inpatient only procedure list (status C) due to: Choledocholithiasis/ cholangitis and cholelithiasis requiring iv abx and cholecystectomy during this admission. MELISSA VINSON MD 01/31/2019 Francisco Owusu MD - 01/31/2019 11:33 AM EDT GASTROENTEROLOGY & HEPATOLOGY INPATIENT PROGRESS NOTE ID: Ina Orellana is a 28 y.o. year old ??female??with a past medical history of IV drug abuse complicated by infective endocarditis status post open heart surgery for mitral valve replacement, hepatitis C, chronic pain disorder who is on methadone presented with choledocholithiasis. Interval History: - No abdominal pain, fevers - Very hungry, asking about timing of OR Active Hospital Problem List Patient Active Problem List Diagnosis Code ??? Choledocholithiasis K80.50 Scheduled Meds: ??? methadone (Methadose) oral liquid 105 mg Oral Daily ??? pantoprazole 40 mg Oral Daily ??? gabapentin 300 mg Oral TID ??? sodium chloride 0.9 % 5 mL Intravenous BID ??? piperacillin-tazobactam 3.375 g Intravenous Q8H Continuous Infusions: ??? sodium chloride 0.9% 1,000 mL (01/31/19 1044) PRN Meds:.calcium carbonate, hydrOXYzine, sodium chloride 0.9 %, lidocaine, ondansetron OR ondansetron, HYDROmorphone Physical Examination Vitals: 01/30/19 2338 01/31/19 0337 01/31/19 0606 01/31/19 0819 BP: 127/71 120/81 (!) 136/91 (!) 123/95 BP Location (NBP): Left arm Left arm Left arm Left arm Patient Position: Lying Lying Lying Lying Pulse: 71 64 71 (!) 111 Resp: 17 18 18 18 Temp: 36.3 ??C (97.3 ??F) 36.5 ??C (97.7 ??F) 36.7 ??C (98.1 ??F) 36.5 ??C (97.7 ??F) TempSrc: Oral Oral Oral Oral SpO2: 97% 98% 98% 98% Weight: Height: PHYSICAL EXAM GENERAL: No acute distress, alert and oriented HEENT: AT/NC, sclerae anicteric, moist mucous membranes ABDOMEN: Soft, normoactive bowel sounds, non-tender, non-distended EXT: Warm, no edema SKIN: No jaundice Pertinent Recent labs CBC Lab Results Component Value Date WBC 9.1 01/31/2019 Hemoglobin 12.5 01/31/2019 Hematocrit 38.0 01/31/2019 Platelets 292 01/31/2019 Lab Results Component Value Date Sodium 140 01/31/2019 Potassium 4.2 01/31/2019 Chloride 106 01/31/2019 CO2 23 01/31/2019 BUN 4 (L) 01/31/2019 Creatinine 0.70 01/31/2019 Glucose Lvl 217 (H) 01/31/2019 LFT's Lab Results Component Value Date Alk Phos 244 (H) 01/31/2019 AST 78 (H) 01/31/2019 Albumin 3.7 01/31/2019 Bili, Direct 4.1 (H) 01/31/2019 Total Bilirubin 5.2 (H) 01/31/2019 ALT 124 (H) 01/31/2019 Total Protein 7.1 01/31/2019 Pertinent Endoscopic Procedures/Reports: ERCP 01/30/19: ?The food service attendant film was normal. The esophagus was ?successfully intubated under direct vision. The scope ?was advanced to a normal major papilla in the ?descending duodenum without detailed examination of ?the pharynx, larynx and associated structures, and ?upper GI tract. The upper GI tract was grossly normal ?however there were stress erosions in the duodenum ?near the ampulla. The bile duct was deeply cannulated ?with the short-nosed traction sphincterotome using ?the 025 Visiglide wire. The pancreatic duct was not ?accessed. Contrast was injected. I personally ?interpreted the bile duct images. There was brisk ?flow of contrast through the ducts. Image quality was ?excellent. Contrast extended to the intrahepatics. . ?The main bile duct was diffusely dilated, with a ?stone causing an obstruction. The largest diameter ?was 12 mm. The middle third of the main bile duct ?contained a filling defect thought to be a stone. The ?cystic duct and gallbladder did not fill. An 9 mm ?biliary sphincterotomy was made with a monofilament ?traction (standard) sphincterotome using ERBE ?electrocautery over the wire. There was no ?post-sphincterotomy bleeding. The biliary tree was ?swept with an 8.5 mm balloon starting at the right ?intrahepatic duct. There was a large stone that could ?not be delivered. The 11.5 mm balloon could not be ?delivered into the duodenum, so DASE was performed to ?10 mm. This fragmented the stone and one stone was ?removed with multiple fragments as well as some pus ?using the 11.5 mm balloon. No stones remained, ?occlusion cholangiogram was negative. ? Pertinent Recent Imaging: Reviewed in eDH Impression: 28 y.o. year old ??female??with a past medical history of IV drug abuse complicated by infective endocarditis status post open heart surgery for mitral valve replacement, hepatitis C, chronic pain disorder who is on methadone presented with choledocholithiasis. S/p ERCP finding choledocholithiasis s/p complete removal with sphincterotomy. Plan: - OR for lap choley GI will sign off at this time. Please call with any additional questions or concerns. This case was discussed with Dr. Owusu. Elías Lake MD Gastroenterology Fellow #[id number] Attending Addendum: I have seen and examined the patient with Dr. Lake. We reviewed the medical record and pertinent studies and imaging. My evaluation and physical examination confirms the above findings. The assessment and plan were formulated in discussion with me at the time of the encounter and I agree with them as documented. Francisco Owusu MD [facility] [place] [facility] [place]ology Alexis Martinez RN - 01/31/2019 6:26 AM EDT 0600 Patient arrived to unit via WC alert, oriented, able to make needs known. Oriented to room, unit, reviewed plan of care including contact precautions, r/o Cdiff screening, patient in agreement, questions answered. Stool sample collected and sent. Will continue to monitor Lindsay Parrish RN - 01/30/2019 1:27 PM EDT 1228 - Arrives to PACU from endo via bed. Monitors on with alarms. C/O nausea and pain, medicated per anesthesia. Report received and care assumed. 1245 - attempted to void on bedpan, UTV more then 25 cc. 1315 - OOB to BSC. Scott well. Able to void 500 cc peggy urine. 1330 - Report called to MINDA Duckworth Romy Munoz RN - 01/30/2019 7:24 AM EDT Patient arrived to floor via EMS from OSH. Patient A&O x 3, lungs clear, heart rate regular.Patient states their pain level is 9/10. Patient denies chest pain, shortness of breath, numbness or tingling. 0.5 mg iv dilaudid given x1 w/little effect. Pt frequently screaming out in pain, MD aware 0.6 mg iv dilaudid ordered Q3. Patient oriented to room, call pham, IS. RN will monitor patient. Romy Munoz RN documented in this encounter H&P Notes Yrn Alvarenga MD - 01/30/2019 8:07 AM EDT Gastroenterology and Hepatology Pre-Procedure History and Physical Exam Procedure: ERCP: Indication: CBD stone Patient Active Problem List Diagnosis Code ??? Choledocholithiasis K80.50 EXAM: HEENT: Airway examined, oropharynx clear Mallampati Score: III (soft palate, base of uvula visible) LUNGS: Clear to auscultation HEART: Regular rate and rhythm, normal S1, S2 ABDOMEN: Normal bowel sounds, soft, non tender, non distended, A/P Proceed with the planned endoscopic procedure. ASA 3 - Patient with moderate systemic disease with functional limitations Sedation Plan: anesthesia Risks and benefits of the procedure explained to the patient. Consent signed. Electronically signed by: Yrn Alvarenga Gastroenterology Fellow [facility] [place] [facility] [place] Pager [phone] 01/30/2019 Edenilson Rosales - 01/30/2019 4:41 AM EDT Inpatient Hospital Medicine - Admission Note Problem List: Active Hospital Problems Diagnosis ??? Choledocholithiasis Resolved Hospital Problems No resolved problems to display. There are no active non-hospital problems to display for this patient. ID: 28 y.o. Female presents to [facility] [place] with abdominal pain History of Present Illness: STUART Orellana is a 28 y.o. female with a past medical history of IV drug abuse complicated by infective endocarditis status post open heart surgery for mitral valve replacement, hepatitis C, chronic pain disorder who is on methadone presented to outside hospital with 5 days of epigastric and right upper quadrant abdominal pain with associated nausea and vomiting. Patient had a total of 4 visits to outside hospital ED and last 5 days because of abdominal pain with associated nausea and vomiting. Patient states that she has chronic constipation and would have on and off denies abdominal discomfort however this time she continued to have severe abdominal pain in the epigastric and right upper quadrant region. The pain initially started in right upper quadrant region. The pain was cramp like and episodic. It was associated with abdominal bloating and nausea and vomiting. He has not been able to eat anything for last 2 days. She had normal LFTs on 01/26/[address] scan was done at that time which was normal. She was told that she has a constipation that is the c ause of her pain. She was given an enema and suppository that resulted in a large bowel movement butshe continued to have abdominal pain. Today she was jaundiced and her mom noticed that her stools are light in color. She also endorses dark discoloration of the urine. She endorses subjective fever and chills. Although no check her temperature. She was afebrile at outside hospital. At outside hospital she was found to have AST of 90, ALT of 196, alk phos of 263, lipase 52, total bilirubin 7.3. CT scan of the abdomen and pelvis was repeated that showed intra-and extrahepatic biliary dilatation. It also showed cholelithiasis. Review of Systems: Review of Systems 10 point review of system is negative other than HPI Past Medical and Surgical History: Past Medical History: Diagnosis Date ??? Hepatitis C ??? Infective endocarditis ??? IV drug abuse Past Surgical History: Procedure Laterality Date ??? CARDIAC SURGERY Prior To Admission Medications: Medications Prior to Admission Medication Sig Dispense Refill Last Dose ??? methadone (DOLOPHINE) 10 mg Tablet Take 105 mg by mouth every 8 hours. 01/29/2019 at Unknown time ??? gabapentin (NEURONTIN) 300 mg Capsule Take 300 mg by mouth 3 times daily. 01/29/2019 at Unknown time ??? hydrOXYzine (ATARAX) 50 mg Tablet Take 50 mg by mouth every 8 hours as needed for Itching. 01/29/2019 at Unknown time Allergies: No Known Allergies Family History: History reviewed. No pertinent family history. Social History and Habits: Social History Socioeconomic History ??? Marital status: Single Spouse name: Not on file ??? Number of children: Not on file ??? Years of education: Not on file ??? Highest education level: Not on file Occupational History ??? Not on file Social Needs ??? Financial resource strain: Not on file ??? Food insecurity: Worry: Not on file Inability: Not on file ??? Transportation needs: Medical: Not on file Non-medical: Not on file Tobacco Use ??? Smoking status: Current Every Day Smoker ??? Smokeless tobacco: Never Used Substance and Sexual Activity ??? Alcohol use: Not Currently ??? Drug use: Not on file ??? Sexual activity: Not on file Lifestyle ??? Physical activity: Days per week: Not on file Minutes per session: Not on file ??? Stress: Not on file Relationships ??? Social connections: Talks on phone: Not on file Gets together: Not on file Attends samaritan service: Not on file Active member of club or organization: Not on file Attends meetings of clubs or organizations: Not on file Relationship status: Not on file ??? Intimate partner violence: Fear of current or ex partner: Not on file Emotionally abused: Not on file Physically abused: Not on file Forced sexual activity: Not on file Other Topics Concern ??? Not on file Social History Narrative ??? Not on file Immunizations: There is no immunization history on file for this patient. Physical Exam: Last Set of Vitals and range of vitals over past 24 hours: Last value Range last 24 hrs Temperature Temp: 36.4 ??C (97.5 ??F) Temp: [36.4 ??C (97.5 ??F)] Heart Rate Heart Rate: 63 Heart Rate: [63] Blood Pressure BP: 126/73 BP: (126)/(73) Respiratory Rate Resp: 16 Resp: [16] SpO2 SpO2: 97 % SpO2: [97 %] Body mass index is 31.8 kg/m??. Physical Exam Nursing notes reviewed General: Patient is in no acute distress HEENT: PERRLA, EOMI, scleral icterus present Neck: Supple nasal lungs: Clear Heart: Regular rate and rhythm, systolic murmur present Abdomen: Tenderness to palpation in epigastrium right upper quadrant region, no rebound or rigidity,bowel sounds are present Skin: No rash Neuro: Grossly intact Musculoskeletal: No deformity or edema Laboratory (Last 24 Hours): No results found for this or any previous visit (from the past 24 hour(s)). Outside hospital labs are reviewed, repeat labs are pending Microbiology: Blood Cultures: Pending Radiology: CT abdomen pelvis: Internal extrahepatic biliary dilatation, cholelithiasis Assessment: Ina Orellana is a 28 y.o. female with a past medical history of IV drug abuse complicated by infective endocarditis status post open heart surgery for mitral valve replacement, hepatitis C, chronic pain disorder who is on methadone presented to outside hospital with 5 days of epigastric and right upper quadrant abdominal pain with associated nausea and vomiting. At outside hospital she was found to have AST of 90, ALT of 196, alk phos of 263, lipase 52, total bilirubin 7.3. CT scan of the abdomen and pelvis was repeated that showed intra-and extrahepatic biliary dilatation. It also showed cholelithiasis. 1. Choledocholithiasis and cholelithiasis: The cause of patient's pain. Patient need ERCP for stent and cholecystectomy. Her white cell count is okay and has no fever or other signs of infection. However will obtain blood cultures and closely watch for any infection symptoms. We will treat her pain with intravenous Dilaudid and repeat labs and trend LFTs. 2. History of hepatitis C: We will check HCV PCR 3. History of chronic pain: Is on methadone 105 mg daily 4. History of IV drug abuse: Is not currently using any drugs. Last use was more than a year ago. Plan: ?? Admit to hospital medicine ?? GI consult ?? General surgery consult ?? Repeat labs including LFT ?? Monitor LFTs daily ?? Blood cultures ?? Intravenous Dilaudid 0.5 mg every 4 hours as needed ?? HCV PCR ?? Physical Therapy referral ?? DVT Prophylaxis-SCDs ?? If currently a smoker - advised about smoking cessation and will provide smoking cessation material and support. ?? Pneumovax and Influenza Immunizations given as needed. ?? Discussed Advanced Directives and Code Status. The patient wishesto be Full Code. A copy of this document will be sent to the patient's Primary Care Physician and/or Referring Physician. Edenilson Rosales MD 01/30/2019 documented in this encounter Miscellaneous Notes Consult Note - Bryce Franco, VENTILATION WORKER - 02/02/2019 10:04 AM EDT BIT Evaluation Referral source: Nursing referral Reason for referral: Anxiety Disruptive behaviors Opioid Use Disorder Relevant history: Ms Orellana is a 28-year-old woman, mother of four, admitted with RUQ pain, nausea, and vomiting, now s/p ERCP. History of childhood trauma, IVDU currently in recovery with counseling and in Methadone assisted treatment at [facility]- current dose 105 mg daily. Ms Orellana is A&Ox4, pleasant, and cooperative, flat affect, reports her mood as Fine, I'm ok, endorses some anxiety with hospitalization and looking forward to discharge, reports being stable on current Methadone dosage, denies any withdrawal symptoms or cravings at this time, denies any current PTSD symptoms, denies AH/VH, denies SI/HI. Ms Orellana described a history of substance use that begin in her early teens My whole family were addicts, and reports self-medicating for emotional trauma for most of her life I was using IV drugs by the time I was 15. She reports abstaining from IVDU for three years with Methadone assisted treatment, then relapsed with her father when her step-mother , He got endocarditis and here (at [facility]) three months later, then I got endocarditis three months later. That was my wake-up call and I was done. She reports her last IVDU over a year ago and has been in recovery with Methadone assisted treatment and counseling at [facility]. She also reports being engaged with psychiatric services at [facility] for over 10 years. Ms Orellana reports being motivated to abstain from IVDU with ongoing Methadone assisted treatment and counseling at [facility] and psychiatric services at [facility]. Additional substance use treamtment and relapse prevention resources were given and placed in her discharge instructions. Assessment: Ms Orellana is a 28-year-old woman, mother of four, admitted with RUQ pain, nausea, and vomiting, now s/p ERCP. History of childhood trauma, IVDU currently in recovery with counseling and in Methadone assisted treatment at [facility]- current dose 105 mg daily. Reports being stable on current Methadone dosage, no acute safety concerns. Motivated to maintain abstinence from IVDU with ongoing Methadone assisted treatment and counseling at [facility] and psychiatric services at [facility]. Additional substance use treamtment and relapse prevention resources were given and placed in her discharge instructions. Interventions delivered: Motivational interviewing Supportive therapy Plan: 1. Patient plans to maintain abstinence from IVDU with ongoing Methadone assisted treatment and counseling at [facility] and psychiatric services at [facility]. Medication Assisted Treatment Plan (select yes if referral reason indicates AUD, OUD or PATRIA - other): Yes. Substance use of focus: Opioid Was patient already on a medication to treat OUD prior to admission? Yes. Prescribed buprenorphine, street buprenorphine, methadone, naltrexone Outpatient MAT continued - [contact made on 01/31/19 per primary team (date[facility] [phone][facility] Discharge Planning Needs: Additional substance use treatment and relapse prevention resources were given and placed in discharge instructions. Time spent with the patient (min):30 minutes Time spent on case coordination (min): 15 minutes Consult Note - Chirag Mayers MD - 02/02/2019 6:54 AM EDT Patient Name: Ina Orellana Patient Age: 28 y.o. Birthdate: 1990 Admit date: 01/30/2019 Attending Physician: Melissa Vinson MD Surgery Inpatient Consultation Date of Consultation: 02/02/2019 Consult Service: General Surgery Place of Service: ( ) Emergency Department (X) Inpatient Unit ( ) Critical care Responsible Attending: Dr. Hogan Reason for Consult: We are seeing Ina Orellana at the request of Dr. Melissa Vinson MD in consultation for choledocholithiasis. I have reviewed the available records, interviewed and examined the patient. History of Present Illness: Ina Orellana is a 28 y.o. female with a history of IVDU, HCV, infective endocardiits s/p MVR for whom general surgery is consulted regarding choledocholithiasis. Patient preented with 5 days of RUQ pain associated with N/V. She underwent ERCP yesterday with removal one one stone as well as pus p roximal to it. Today she endorses persistent RUQ pain as well as numerous loose stools overnight. Interval Hx/Subjective -OR yesterday for lap cholecystectomy -patient had a slice of pizza for dinner and fluids -RUQ pain much improved; endorses general soreness near port sites, especially umbilical site Physical Exam: Temp: [36.6 ??C (97.9 ??F)-37.1 ??C (98.8 ??F)] Heart Rate: [58-78] Resp: [11-26] BP: (126-147)/(73-92) SpO2: [93 %-100 %] Heart Rate from SpO2: [65 bpm-76 bpm] General: NAD, resting comfortably HEENT: normocephalic, atraumatic CVS: Regular rate Pulm: Clear bilaterally Abd: soft, incisions c/d/i, appropriately ttp Ext: warm Neuro: No focal deficits Labs: Last 3 wbc, hgb, hct plt Recent Labs 02/02/19 0606 02/01/19 0620 01/31/19 0351 WBC 8.7 9.1 9.1 HGB 10.7* 10.7* 12.5 HCT 33.1* 32.9* 38.0 PLATELET 266 245 292 Last 3 Lytes Recent Labs 02/01/19 0620 01/31/19 0351 01/30/19 0605 NA 143 140 141 K 3.6 4.2 3.5 CL 108* 106 104 CO2 24 23 23 BUN 6* 4* 6* CREATININE 0.80 0.70 0.63* Last 3 LFTs Recent Labs 02/01/19 0620 01/31/19 0351 01/30/19 0605 AST 33* 78* 73* ALT 88* 124* 128* ALKPHOS 179* 244* 235* BILITOT 1.8* 5.2* 6.8* BILIDIR 1.0* 4.1* 5.7* Last 3 ProBNP, Trop, CK No results for input(s): CK, TROPONINT, PROBNP in the last 168 hours. Pertinent Radiographic/Diagnostic Results: ERCP: Impression: ?- A filling defect consistent with a ?stone was seen on the cholangiogram. ?- The entire main bile duct was ?dilated, with a stone causing an ?obstruction. ?- Choledocholithiasis was found. ?Complete removal was accomplished by ?biliary sphincterotomy, DASE and ?balloon extraction. Assessment/Recommendations: Ina Orellana is a 28 y.o. female for whom general surgery is consulted regarding choledocholithiasis Patient underwent ERCP with removal of 1 stone with some pus proximal to it. She is now 1 DayPost-Op s/p OR for lap cholecystectomy. Tolerated a diet last night. Abd pain improved this AM. [facility] will arrange clinic follow up for patient in ~4 weeks. No further need for antibiotics per surgery. General surgery to sign off. Please page [phone] with questions/concerns Chirag Mayers MD Surgery Resident [phone] Plan of Care - Peggy Hernandez RN - 02/02/2019 12:44 AM EDT Problem: Patient Care Overview Goal: Plan of Care Review Outcome: Revised Date Met: 02/02/19 02/01/19 1353 02/01/192014 Coping/Psychosocial Plan Of Care Reviewed With -- patient Plan of Care Review Progress improving -- OUTCOME EVALUATION NOTE: OUTCOME SUMMARY: Pt A&Ox4, able to make needs known. VSS on RA. 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 IV antibiotics infused as ordered. Pt reported loose BM x1. Pt independent in room. No acute events. Will continue to monitor and communicate with team. Patient refusing to wear masimo. The reason pt gave for this refusal was I haven't worn it all day,I'm not doing it. Nursing actions taken during this shift to address patient???s refusal included Education about importance of care Plan to address patient???s refusal include will continue to educate pt and reassess willingness, spot checks to be performed w/ VS. PLAN MOVING FORWARD: Monitor for safety Pain control IV antibiotics Home this am? INDIVIDUALIZED FALL PREVENTION INTERVENTIONS: Patient-specific fall risk factors per assessment: [current deficits]: Generalized weakness, deconditioning, lines/tubes Assistance [level of assistance required for transfers and ambulation]: independent Supervision [direct monitoring required during toileting and ADLs]: independent Surveillance [continuous indirect monitoring]: purposeful rounding, room near unit station, call light in reach Patient-specific fall prevention interventions for sensory deficits provided, if applicable: [X] N/A CPG GOAL OUTCOME EVALUATION: Continue with plan of care. Goal: Fall Prevention-Safe Patient Handling Outcome: Ongoing (Interventions Implemented as Appropriate) 01/31/19 [id number] Jordan Fall Risk History of Falling -- 0 -- Secondary Diagnosis -- 15 -- Ambulatory Aids -- 0 -- Intravenous Therapy/Heparin/Saline Lock -- 20 -- Gait/Transferring -- 0 -- Mental Status -- 0 -- Score -- 35 -- OTHER Jordan Fall Risk -- Med -- Restraint Interventions Safety Promotion/Fall Prevention -- -- safety round/check completed Positioning Body Position -- -- independent Activity Activity Type -- up ad jovita -- Activity Assistance Provided -- independent -- Assistive Device Utilized none -- -- Goal: Infection Control Outcome: Ongoing (Interventions Implemented as Appropriate) 02/01/19201402/01/192199 Coping Strategies Supportive Measures active listening utilized;self-care encouraged;verbalization of feelings encouraged;positive reinforcement provided -- Safety Interventions Isolation Precautions -- standard precautions maintained Infection Prevention -- rest/sleep promoted Goal: Interdisciplinary Rounds/Family Conf Outcome: Ongoing (Interventions Implemented as Appropriate) 02/01/19 0112 Interdisciplinary Rounds/Family Conf Participants nursing;patient;physician Plan of Care - Tere Sen RN - 02/01/2019 1:58 PM EDT Problem: Patient Care Overview Goal: Plan of Care Review Outcome: Ongoing (Interventions Implemented as Appropriate) 02/01/19 1353 Coping/Psychosocial Plan Of Care Reviewed With patient Plan of Care Review Progress improving OUTCOME EVALUATION NOTE: OUTCOME SUMMARY: Pt at OR all AM for lap-gianfranco. Pt returned around 12:45pm. VSS. Pt hysterical at this time, reports pain at umbilical incision, arms are sore. Pt sobbing and yelling out, says dilaudid doesn't work forher (received 4.4mg IV dilaudid in PACU). MD notified. 4mg IV morphine given. IV toradol given as well. Pt reports no relief stating I have no pain tolerance and The doctor said I could have anotherdose. MD notified. Additional one-time dose given with good effect per patient. Pt tolerating popsicles, diet advanced to fiber restricted. Pt very upset with current diet, yelling and swearing because she cannot have tomatoes on her sandwich, threatening to leave AMA. Diet advanced to regular, pt given her cheesesticks and educated that this behavior was not acceptable. Will continue to monitor. PLAN MOVING FORWARD: IV abx Discharge planning INDIVIDUALIZED FALL PREVENTION INTERVENTIONS: Patient-specific fall risk factors per assessment: [current deficits]: IV tubing Assistance [level of assistance required for transfers and ambulation]: Ind Supervision [direct monitoring required during toileting and ADLs]: Ind Surveillance [continuous indirect monitoring]: Purposeful rounding Patient-specific fall prevention interventions for sensory deficits provided, if applicable: CPG GOAL OUTCOME EVALUATION: Goal: Fall Prevention-Safe Patient Handling Outcome: Ongoing (Interventions Implemented as Appropriate) 01/31/19 02001/31/19200502/01/19 0600 Jordan Fall Risk History of Falling -- 0 -- Secondary Diagnosis -- 15 -- Ambulatory Aids -- 0 -- Intravenous Therapy/Heparin/Saline Lock -- 20 -- Gait/Transferring -- 0 -- Mental Status -- 0 -- Score -- 35 -- OTHER Jordan Fall Risk -- Med -- Restraint Interventions Safety Promotion/Fall Prevention -- -- -- Positioning Body Position -- -- -- Activity Activity Type -- -- up ad jovita Activity Assistance Provided -- -- independent Assistive Device Utilized none -- -- 02/01/19 1347 Jordan Fall Risk History of Falling -- Secondary Diagnosis -- Ambulatory Aids -- Intravenous Therapy/Heparin/Saline Lock -- Gait/Transferring -- Mental Status -- Score -- OTHER Jordan Fall Risk -- Restraint Interventions Safety Promotion/Fall Prevention safety round/check completed;fall prevention program maintained Positioning Body Position independent Activity Activity Type -- Activity Assistance Provided -- Assistive Device Utilized -- Goal: Infection Control Outcome: Ongoing (Interventions Implemented as Appropriate) 02/01/19 0919 02/01/19 1347 Coping Strategies Supportive Measures active listening utilized;relaxation techniques promoted;verbalization of feelings encouraged -- Safety Interventions Isolation Precautions -- standard precautions maintained Infection Prevention -- rest/sleep promoted Op Note - Jorden Hogan MD - 02/01/2019 10:07 AM EDT [facility] [place] [facility] [place] Note Name: Ina Orellana : 1990 Date of surgery: 02/01/2019 Surgeon: Jorden Hogan MD insurance assistant: Chas Soni MD Preoperative dx: Ascending cholangitis Postoperative dx: Same, with chronic cholecystitis Procedure: Laparoscopic cholecystectomy with intraoperative cholangiogram Indication: This is an 28 y.o. year old female who presented with history, physical, laboratory, andimaging consistent with ascending cholangitis. She underwent ERCP with ES and stone extraction. Pus from the biliary tree was noted. After discussion of medical and surgical treatment options, including the risks/benefits/expected outcome of each, surgery was decided upon. Laparoscopic cholecystectomywas recommended and the benefits and risks were explained. Specifically the risk of bile leak, injury to the biliary tree, visceral injury, conversion to open operation, bleeding, and possible need forreoperation were discussed. The expected recovery periods with both laparoscopic and open surgery were also reviewed. Findings: - Critical view of the cystic duct, cystic artery, and inferior edge of the right lobe of the liver up into the gallbladder fossa was obtained. This took much longer than usual due to a large amount of chronic inflammation within the hepatocystic triangle. - Cholangiogram images were directly interpreted by myself. Biliary tree was completely visualized from the duodenum to biliary branch points. No filling defects were noted. Contrast freely flowed into the duodenum. - 5 mm clips were used for cystic artery ligation. - EndoGIA was used for cystic duct ligation given size not amenable to 5 mm clips; this was reinforced with Endoloop as the stapler appeared to create a seromuscular tear when fired due to the thickened and inflamed condition of the duct. - Wound protection bag was utilized for gallbladder removal via the umbilical port - EBL: 50 mL - Wound class: 3 (contaminated) - 22 modifier is applied as operative time and difficulty was ~2x that that would be expected giventhe extensive inflammation increasing the difficulty with dissection and anatomic identification.?? Anesthesia: General with OETT Specimen removed: Gallbladder Operative narrative: Patient was positioned and secured in attempt to minimize the risk of neuropraxia and joint injury.Antibiotics were ongoing therapeutically. Sequential compression devices were applied prior to induction of anesthesia. Necessary hair removal was performed using electronic clipper. Skin was prepped using Chloroprep tinted prep stick. Draping was performed in the usual sterile fashion. Local was injected prior to skin incisions. A 12 mm infraumbilical port was placed by incising the skin and using Edison technique to enter the peritoneal cavity. An 0 Vicryl was placed on either side of the fascial opening to anchor the port during the procedure and close the site at the completion of the procedure. Port with blunt trocar was inserted and pneumoperitoneum established. A combination of 10 mm - 30 degree and 5 mm - 30 degree scopes were utilized during the case. Three 5 mm subcostal ports were placed in the usual positions by incising the skin and passing port with protected sharp trocar under direct visualization. Lighting was reduced and bed repositioned into Trendelenburg and angled with the left side down. Suction was used to aspirate all free fluid and contamination. Fundic and infundibularretraction was established with blunt grasper. Using a combination of careful blunt dissection, suction care information associate technique, and judicious electrocautery; critical view of cystic duct, cystic artery, and inferior edge of the right lobe of the liver was obtained. This view extended up to the fusion of the gallbladder and liver within the gallbladder fossa to ensure complete visualization and correct an atomic identification. This took much longer than usual due to a large amount of chronic inflammation within the hepatocystic triangle. A cystic ductotomy was sharply created and catheter passed into the cystic duct using cholangiogram clamp. Saline test injection was without leak. Fluoroscopic view was then established. Biliary tree was visualized from the duodenum to biliary branch points. No filling defects were noted. Contrast freely flowed into the duodenum. Laparoscopic view was then restored.Catheter were removed from the abdomen. A 5 mm clip youth ministry director was then used to place 2 clips each on the patient side of the cystic artery followed by 1 clip on the specimen side. This structure was then sharply divided. EndoGIA was used to divide the cystic duct as the size was larger than a 5 mm clip would allow. Endoloop was used to reinforce this closure as the stapler appeared to create a seromuscular tear when fired due to the thickened and inflamed condition of the duct. Continued dissection with the same techniques was then used to resect the gallbladder from the gallbladder fossa. Gallbladder was then removed via the umbilical port using specimen bag. After laparoscopic view was reestablished, suction probe was used to aspirated all free fluid in the RUQ. Pneumoperitoneum was then reduced to approximate central venous pressure and inspection of all dissected areas confirmed hemostasis. The subcostal ports were then removed under direct visualization with hemostasis noted. The umbilical port was then removed and pneumoperitoneum completely reduced. The 0 Vicryl sutures were then tied to form a horizontal mattress stitch to close the fascial opening. Digital palpation ensured complete closure. Skin of all incisions was then closed with simple interrupted deep dermal stitches of 0000 Monocryl. The skin was then washed and dried. All incisions were then dressed with Dermabond. Thank you for allowing me to participate in the care of your patient. Jorden Hogan MD 02/01/2019 10:07 AM Attestation: Case Date: 02/01/2019 I was present and I participated during the entire procedure (does not need to include opening and closing). Jorden Hogan MD 02/01/2019 Consult Note - Chirag Mayers MD - 02/01/2019 7:31 AM EDT Patient Name: Ina Orellana Patient Age: 28 y.o. Birthdate: 1990 Admit date: 01/30/2019 Attending Physician: Melissa Vinson MD Surgery Inpatient Consultation Date of Consultation: 02/01/2019 Consult Service: General Surgery Place of Service: ( ) Emergency Department (X) Inpatient Unit ( ) Critical care Responsible Attending: Dr. Hogan Reason for Consult: We are seeing Ina Orellana at the request of Dr. Melissa Vinson MD in consultation for choledocholithiasis. I have reviewed the available records, interviewed and examined the patient. History of Present Illness: Ina Orellana is a 28 y.o. female with a history of IVDU, HCV, infective endocardiits s/p MVR for whom general surgery is consulted regarding choledocholithiasis. Patient preented with 5 days of RUQ pain associated with N/V. She underwent ERCP yesterday with removal one one stone as well as pus p roximal to it. Today she endorses persistent RUQ pain as well as numerous loose stools overnight. Interval Hx/Subjective -no overnight events -persistent RUQ pain -loose stools resolved, C diff negative Physical Exam: Temp: [36.7 ??C (98.1 ??F)-37.1 ??C (98.8 ??F)] Heart Rate: [60-98] Resp: [14-26] BP: (115-147)/(73-91) SpO2: [96 %-100 %] Heart Rate from SpO2: [65 bpm-98 bpm] General: NAD, resting comfortably HEENT: normocephalic, atraumatic CVS: Regular rate Pulm: Clear bilaterally Abd: soft, mild ttp RUQ Ext: warm Neuro: No focal deficits Labs: Last 3 wbc, hgb, hct plt Recent Labs 02/01/19 0601/31/19 0351 01/30/19 0605 WBC 9.1 9.1 6.4 HGB 10.7* 12.5 11.6* HCT 32.9* 38.0 35.3* PLATELET 245 292 278 Last 3 Lytes Recent Labs 02/01/19 0601/31/19 0351 01/30/19 0605 NA 143 140 141 K 3.6 4.2 3.5 CL 108* 106 104 CO2 24 23 23 BUN 6* 4* 6* CREATININE 0.80 0.70 0.63* Last 3 LFTs Recent Labs 02/01/19 0601/31/19 0351 01/30/19 0605 AST 33* 78* 73* ALT 88* 124* 128* ALKPHOS 179* 244* 235* BILITOT 1.8* 5.2* 6.8* BILIDIR 1.0* 4.1* 5.7* Last 3 ProBNP, Trop, CK No results for input(s): CK, TROPONINT, PROBNP in the last 168 hours. Pertinent Radiographic/Diagnostic Results: ERCP: Impression: ?- A filling defect consistent with a ?stone was seen on the cholangiogram. ?- The entire main bile duct was ?dilated, with a stone causing an ?obstruction. ?- Choledocholithiasis was found. ?Complete removal was accomplished by ?biliary sphincterotomy, DASE and ?balloon extraction. Assessment/Recommendations: Ina Orellana is a 28 y.o. female for whom general surgery is consulted regarding choledocholithiasis Patient underwent ERCP with removal of 1 stone with some pus proximal to it. Will plan for lap cholecystectomy today. Risks and benefits discussed with patient and she elects to proceed. Chirag Mayers MD Surgery Resident [phone] X Consult service will continue to follow patient. Recommendations are above, please page if further consultation required. Associated attestation - Jorden Hogan MD - 02/01/2019 11:54 AM EDT This patient was personally seen and examined on team rounds. I agree with the assessment and plan as discussed. Diagnoses and therapy were explained and all questions were answered. OR Thank you for allowing us to participate in the care of your patient. Please feel free to call with any questions or concerns. Jorden Hogan MD 02/01/2019 11:53 AM Plan of Care - Angy Pritchett RN - 02/01/2019 1:19 AM EDT Problem: Patient Care Overview Goal: Plan of Care Review Outcome: Ongoing (Interventions Implemented as Appropriate) 02/01/19 0112 Coping/Psychosocial Plan Of Care Reviewed With patient Plan of Care Review Progress no change OUTCOME EVALUATION NOTE: OUTCOME SUMMARY: No acute events overnight. Pt A&Ox4. VSS on RA. C/o 04/15 aching/stabbing pain in RUQ. PRN dilaudid given with good effect. Pt reports that she is no longer having diarrhea. IV abx and IVF infusing as ordered. Able to makes needs known. Will continue to monitor and notify team of any acute changes. PLAN MOVING FORWARD: NPO @ midnight for surgery today Pain management IVF IV abx INDIVIDUALIZED FALL PREVENTION INTERVENTIONS: Patient-specific fall risk factors per assessment: [current deficits]: IV tubing, pain Assistance [level of assistance required for transfers and ambulation]: Independent Supervision [direct monitoring required during toileting and ADLs]: Independent Surveillance [continuous indirect monitoring]: Purposeful rounding, room near nurse's station, call light within reach Patient-specific fall prevention interventions for sensory deficits provided, if applicable: [X] N/A CPG GOAL OUTCOME EVALUATION: Goal: Fall Prevention-Safe Patient Handling Outcome: Ongoing (Interventions Implemented as Appropriate) 01/31/19 02001/31/19200502/01/19 0000 Jordan Fall Risk History of Falling -- 0 -- Secondary Diagnosis -- 15 -- Ambulatory Aids -- 0 -- Intravenous Therapy/Heparin/Saline Lock -- 20 -- Gait/Transferring -- 0 -- Mental Status -- 0 -- Score -- 35 -- OTHER Jordan Fall Risk -- Med -- Restraint Interventions Safety Promotion/Fall Prevention -- -- safety round/check completed Positioning Body Position -- -- independent Activity Activity Type -- up ad jovita -- Activity Assistance Provided -- independent -- Assistive Device Utilized none -- -- Goal: Infection Control Outcome: Ongoing (Interventions Implemented as Appropriate) 01/31/19200502/01/19 0000 Safety Interventions Isolation Precautions -- standard precautions maintained Infection Prevention -- rest/sleep promoted Coping Strategies Supportive Measures active listening utilized;decision-making supported;goal setting facilitated;positive reinforcement provided;relaxation techniques promoted;self-care encouraged;verbalization of feelings encouraged -- Goal: Interdisciplinary Rounds/Family Conf Outcome: Ongoing (Interventions Implemented as Appropriate) 02/01/19 0112 Interdisciplinary Rounds/Family Conf Participants nursing;patient;physician Plan of Care - Emerald Garcia RN - 01/31/2019 5:09 PM EDT Problem: Patient Care Overview Goal: Plan of Care Review Outcome: Ongoing (Interventions Implemented as Appropriate) 01/31/19 0839 Coping/Psychosocial Plan Of Care Reviewed With patient OUTCOME EVALUATION NOTE: OUTCOME SUMMARY: Pt is A/O x 4. VSS. Multiple watery BMs, C. Diff negative, contact precautions discontinued, PRN Imodium ordered. NPO initiated then discontinued, will be NPO at midnight in preperation for surgery tomorrow. Administering IV ABX as ordered. Reporting 8/10 pain, administered PRN pain medication. C/O ofacid reflux, Protonix ordered daily and one time dose of Pepcid administered. Visited friend who is inpatient on (RM 115). Anaesthesia at bedside in preparation for procedure tomorrow. Able to make needs known. Will continue to monitor and notify MD with any changes. PLAN MOVING FORWARD: IV therapy Pain management NPO at midnight Surgery INDIVIDUALIZED FALL PREVENTION INTERVENTIONS: Patient-specific fall risk factors per assessment: [current deficits]: IV tubing, weakness, pain medications, hospital environment Assistance [level of assistance required for transfers and ambulation]: independent Supervision [direct monitoring required during toileting and ADLs]: Independent Surveillance [continuous indirect monitoring]: Hourly rounding, room near nurses station Patient-specific fall prevention interventions for sensory deficits provided, if applicable: [X] No CPG GOAL OUTCOME EVALUATION: Goal: Fall Prevention-Safe Patient Handling Outcome: Ongoing (Interventions Implemented as Appropriate) 01/31/19 0200 01/31/19 0839 01/31/19 1400 Jordan Fall Risk History of Falling -- 0 -- Secondary Diagnosis -- 15 -- Ambulatory Aids -- 0 -- Intravenous Therapy/Heparin/Saline Lock -- 20 -- Gait/Transferring -- 0 -- Mental Status -- 0 -- Score -- 35 -- OTHER Jordan Fall Risk -- Med -- Restraint Interventions Safety Promotion/Fall Prevention -- -- safety round/check completed;fall prevention program maintained Positioning Body Position -- -- independent Activity Activity Type activity adjusted per tolerance -- -- Activity Assistance Provided independent -- -- Assistive Device Utilized none -- -- Goal: Infection Control Outcome: Ongoing (Interventions Implemented as Appropriate) 01/31/19 0839 01/31/19 1400 Safety Interventions Isolation Precautions -- contact precautions maintained Infection Prevention -- rest/sleep promoted Coping Strategies Supportive Measures relaxation techniques promoted;active listening utilized -- Goal: Interdisciplinary Rounds/Family Conf Outcome: Ongoing (Interventions Implemented as Appropriate) 01/31/19 1513 Interdisciplinary Rounds/Family Conf Participants pharmacy;physician;nursing Consult Note - Chirag Mayers MD - 01/31/2019 4:09 PM EDT Patient Name: Ina Orellana Patient Age: 28 y.o. Birthdate: 1990 Admit date: 01/30/2019 Attending Physician: Melissa Vinson MD Surgery Inpatient Consultation Date of Consultation: 01/31/2019 Consult Service: General Surgery Place of Service: ( ) Emergency Department (X) Inpatient Unit ( ) Critical care Responsible Attending: Dr. Hogan Reason for Consult: We are seeing Ina Orellana at the request of Dr. Melissa Vinson MD in consultation for choledocholithiasis. I have reviewed the available records, interviewed and examined the patient. History of Present Illness: Ina Orellana is a 28 y.o. female with a history of IVDU, HCV, infective endocardiits s/p MVR for whom general surgery is consulted regarding choledocholithiasis. Patient preented with 5 days of RUQ pain associated with N/V. She underwent ERCP yesterday with removal one one stone as well as pus p roximal to it. Today she endorses persistent RUQ pain as well as numerous loose stools overnight. Past Medical History: Past Medical History: Diagnosis Date ??? Hepatitis C ??? Infective endocarditis ??? IV drug abuse Past Surgical History: Past Surgical History: Procedure Laterality Date ??? CARDIAC SURGERY ??? PRO ERCP,DIAGNOSTIC N/A 01/30/2019 ERCP performed by Weston Dixon MD at [facility] Social History: Social History Socioeconomic History ??? Marital status: Single Spouse name: None ??? Number of children: None ??? Years of education: None ??? Highest education level: None Occupational History ??? None Social Needs ??? Financial resource strain: None ??? Food insecurity: Worry: None Inability: None ??? Transportation needs: Medical: None Non-medical: None Tobacco Use ??? Smoking status: Current Every Day Smoker ??? Smokeless tobacco: Never Used Substance and Sexual Activity ??? Alcohol use: Not Currently ??? Drug use: None ??? Sexual activity: None Lifestyle ??? Physical activity: Days per week: None Minutes per session: None ??? Stress: None Relationships ??? Social connections: Talks on phone: None Gets together: None Attends [employer] service: None Active member of club or organization: None Attends meetings of clubs or organizations: None Relationship status: None ??? Intimate partner violence: Fear of current or ex partner: None Emotionally abused: None Physically abused: None Forced sexual activity: None Other Topics Concern ??? None Social History Narrative ??? None Family History History reviewed. No pertinent family history. Home Medications: No current facility-administered medications on file prior to encounter. Current Outpatient Medications on File Prior to Encounter Medication Sig Dispense Refill ??? gabapentin (NEURONTIN) 300 mg Capsule Take 300 mg by mouth 3 times daily. ??? hydrOXYzine (ATARAX) 50 mg Tablet Take 50 mg by mouth every 8 hours as needed for Itching. ??? methadone (METHADOSE) 10 mg/5 mL Solution Take 105 mg by mouth daily. Allergies No Known Allergies Review of Systems: As per HPI Physical Exam: Temp: [36.3 ??C (97.3 ??F)-37.1 ??C (98.8 ??F)] Heart Rate: [63-111] Resp: [15-20] BP: (120-139)/(71-95) SpO2: [97 %-98 %] Heart Rate from SpO2: [65 bpm-98 bpm] General: NAD, resting comfortably HEENT: normocephalic, atraumatic CVS: Regular rate Pulm: Clear bilaterally Abd: soft, moderate ttp RUQ Ext: warm Neuro: No focal deficits Labs: Last 3 wbc, hgb, hct plt Recent Labs 01/31/19 0351 01/30/19 0605 WBC 9.1 6.4 HGB 12.5 11.6* HCT 38.0 35.3* PLATELET 292 278 Last 3 Lytes Recent Labs 01/31/19 0351 01/30/19 0605 NA 140 141 K 4.2 3.5 CL 106 104 CO2 23 23 BUN 4* 6* CREATININE 0.70 0.63* Last 3 LFTs Recent Labs 01/31/19 0351 01/30/19 0605 AST 78* 73* ALT 124* 128* ALKPHOS 244* 235* BILITOT 5.2* 6.8* BILIDIR 4.1* 5.7* Last 3 ProBNP, Trop, CK No results for input(s): CK, TROPONINT, PROBNP in the last 168 hours. Pertinent Radiographic/Diagnostic Results: ERCP: Impression: ?- A filling defect consistent with a ?stone was seen on the cholangiogram. ?- The entire main bile duct was ?dilated, with a stone causing an ?obstruction. ?- Choledocholithiasis was found. ?Complete removal was accomplished by ?biliary sphincterotomy, DASE and ?balloon extraction. Assessment/Recommendations: Ina Orellana is a 28 y.o. female for whom general surgery is consulted regarding choledocholithiasis Patient underwent ERCP yesterday with removal of 1 stone with some pus proximal to it. Will plan for lap cholecystectomy tomorrow. Please keep NPO @ [place]. Risks and benefits discussed with patientand she elects to proceed. Chirag Mayers MD Surgery Resident [phone] X Consult service will continue to follow patient. Recommendations are above, please page if further consultation required. Med Student Progress Note - Jorden Randall - 01/31/2019 12:12 PM EDT Inpatient Hospital Medicine Progress Note Active Hospital Problems Diagnosis ??? Choledocholithiasis Resolved Hospital Problems No resolved problems to display. There are no active non-hospital problems to display for this patient. 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 24 H: -ERCP yesterday -IV Zosyn started due to purulent drainage found during ERCP Subjective: The patient states her pain is improved post-ERCP, but still has periodic crampy RUQ pain. Also complains of significant watery, brown diarrhea (claims had ~20 BMs overnight). She says she was given a bottle of laxatives after being discharged from outside hospital EDs in the 5 days leading up to her admission here, and had been taking a lot of laxatives daily prior to admission. She does say that her diarrhea has increased since before admission. She denies cough, fevers and vomiting. Inpatient Medications: Scheduled Meds: ??? methadone (Methadose) oral liquid 105 mg Oral Daily ??? pantoprazole 40 mg Oral Daily ??? gabapentin 300 mg Oral TID ??? sodium chloride 0.9 % 5 mL Intravenous BID ??? piperacillin-tazobactam 3.375 g Intravenous Q8H Continuous Infusions: ??? sodium chloride 0.9% 1,000 mL (01/31/19 1044) PRN Meds:.calcium carbonate, hydrOXYzine, sodium chloride 0.9 %, lidocaine, ondansetron OR ondansetron, HYDROmorphone Vitals: Last value Range last 24 hrs Temperature Temp: 36.5 ??C (97.7 ??F) Temp: [36.3 ??C (97.3 ??F)-36.8 ??C (98.2 ??F)] Heart Rate Heart Rate: (!) 111 Heart Rate: [58-111] Blood Pressure BP: (!) 123/95 BP: (120-142)/(71-118) Respiratory Rate Resp: 18 Resp: [11-18] SpO2 SpO2: 98 % SpO2: [92 %-99 %] Ins/Outs: Intake/Output Summary (Last 24 hours) at 01/31/2019 1212 Last data filed at 01/31/2019 0500 Gross per 24 hour Intake 1000 ml Output 2300 ml Net -1300 ml Physical Exam Gen: NAD, resting comfortably. Skin is mildly jaundiced. HEENT: Icteric sclera CV: RR, normal S1 and S2, no m/g/r, 2+ dorsalis pedis pulses Pulm: good air movement, CTAB, no wheezing, crackles or rhonchi Abd: moderately tender to deep palpation in the RUQ. No guarding or tenderness to percussion. Hyperactive bowel sounds. Ext: no peripheral edema, no clubbing, no cyanosis. Skin: warm and dry, no rash or petechiae Neuro: AOx3. no focal deficits grossly noted. Labs: Anti-Infectives Dose Route Start Date Notes Zosyn 3.375 g q8hrs IV 01/30 Labs: CBC: Recent Labs 01/31/19 0351 01/30/19 0605 WBC 9.1 6.4 HGB 12.5 11.6* PLATELET 292 278 Recent Labs 01/31/19 0351 01/30/19 0605 IMMGRANPCT 0.30 0.20 NEUTROABS 8.14* 4.50 MCV 86.2 84.9 Chemistry: Recent Labs 01/31/19 0351 01/30/19 0605 NA 140 141 K 4.2 3.5 CL 106 104 CO2 23 23 BUN 4* 6* CREATININE 0.70 0.63* GLUCOSE 217* 70 ANIONGAP 11 14 Recent Labs 01/31/19 03501/30/19 06 CALCIUM 9.1 8.4* MAGNESIUM -- 0.73 PHOS -- 2.4* LFT's: Recent Labs 01/31/19 03501/30/19 06 PROT 7.1 6.8 ALKPHOS 244* 235* BILITOT 5.2* 6.8* BILIDIR 4.1* 5.7* AST 78* 73* ALT 124* 128* Coags: Recent Labs 01/30/19 06 PT 12.6* INR 1.1 PTT 38* Cardiac enzymes: No results for input(s): TROPONINT, CK, PROBNP in the last 168 hours. Endocrine: No results for input(s): TSH, CORTISOL in the last 7068 hours. Invalid input(s): [id number] Heme: No results for input(s): LDH, HAPTOGLOBIN, URICACID in the last 168 hours. No results for input(s): FERRITIN, IRON, TIBC, IRONSAT, SOLTRNRCPT in the last 168 hours.] ABG: ABG (Arterial Blood Gas) No results found for: PHART, PO2ART, ZGS1QAU, PBK0BGC Microbiology: Microbiology Results (Last 30 days) No results found for the last 720 hours. Pertinent radiology/diagnostic studies: 01/[address] abdomen & Pelvis -Showed intra- and extra-hepatic biliary dilation and cholelithiasis. Assessment/Plan: Ina Orellana is a 28 y.o. female with a past medical history of IV drug abuse complicated by infective endocarditis status post open heart surgery for mitral valve replacement, hepatitis C, chronic pain disorder who is on methadone presented to outside hospital with 5 days of epigastric and right upper quadrant abdominal pain with associated nausea and vomiting. At outside hospital she was found to have AST of 90, ALT of 196, alk phos of 263, lipase 52, total bilirubin 7.3. CT scan of the abdomen and pelvis was repeated that showed intra-and extrahepatic biliary dilatation. It also showed cholelithiasis. Patient had ERCP yesterday with successful removal of a stone lodged in CBD and dilation of distal/duct ampulla to 1 cm. Purulent drainage was observed after the stone was dislodged, and in response patient started on IV pip/tazo. Patient has mild jaundice but has been afebrile, hemodynamically stableand her total and direct bilirubin downtrended to 5.2 and 4.1, respectively. We are consulting general surgery today to determine whether cholecystectomy can be performed during this hospital stay. #Choledocholithiasis s/p ERCP on 01/30 -IV Zosyn 3.375 g q8hrs -f/u blood cultures -Gen Surg consult re cholecystectomy -Continue monitoring LFTs daily -IV Dilaudid 0.6 mg q3hrs for pain control #Hx of Hepatitis C -HCV PCR pending #Chronic pain -methadone 105 mg daily (confirmed this is her outpatient dose) -gabapentin 300 mg TID # FEN/PPX -Fluid/lytes: 100 ml/hr NS -Diet: NPO for possible surgery today -DVT ppx: SCDs -GI ppx: Protonix Dispo: Home Code Status: full Jorden Randall 01/31/2019 Pager [phone] Initial Assessments - Stacy De Oliveira RN - 01/31/2019 9:44 AM EDT Office of Care Management Initial Assessment Stacy De Oliveira RN reviewed record and discussed patient with Care Team. Source of Information: Chart Care team Introduced self/reviewed role; services accepted. Reason for Hospitalization: Reason for Admission as Stated by Patient: severe abd pain for 4 days, gallstones, might need surgery Past Medical History: Diagnosis Date ??? Hepatitis C ??? Infective endocarditis ??? IV drug abuse Hospitalizations Within the Past 30 Days: 4 ED visits for Abd pain Anticipated Length Of Stay (If known): 2 days Current Decision-Making Capacity: alert and oriented Advance Care Planning: None on file Current Coping/Education/Information Needs: Not discussed Current Functional Ability: Independent Functional Status Prior to Admission: Independent Home Environment: unknown Social & Family Supports/Community Resources: Unknown Behavioral Health History: On methadone Substance Use/Abuse: IV drug use history Social History Tobacco Use ??? Smoking status: Current Every Day Smoker ??? Smokeless tobacco: Never Used Substance Use Topics ??? Alcohol use: Not Currently ??? Drug use: Not on file Other Pertinent/Service Specific Information: Referral to [facility]/Prescription Coverage: Primary Insurance: MEDICAID [place] Secondary Insurance: N/A Prescription Coverage: Yes Preferred Pharmacy: unknown Other: n/a Primary Care Provider: Linda Gunn, [place] [phone] Patient/Caregiver Goals of Treatment: not discussed Potential Needs for Transition of Care: Rehab/SNF: Not indicated Home Health: Not indicated DME: None Dialysis: n/a Community Resources: n/a Transportation: patient to find friend/family, has [place] medicaid and came from other hospital via ambulance Other: n/a Anticipated Barriers to Discharge/Special Considerations: None identified. Referral to [facility]IAT[facility] due to hxIV drug use on methadone. Assessment: 28 y.o.??year old ??female??with a past medical history of IV drug abuse complicated by infective endocarditis status post open heart surgery for mitral valve replacement, hepatitis C, chronic pain disorder who is on methadone presented with choledocholithiasis. Plan for LAPAROSCOPIC CHOLECYSTECTOMY WITH CHOLANGIOGRAM. ?? Plan: DC to home after gallbladder surgery if medically stable. No needs identified A member of the Care Management team will continue to monitor progress, follow for continuity of care and assist with transition of care planning. Stacy De Oliveira RN Pager: [phone] Plan of Care - Donita Fraser RN - 01/30/2019 4:18 PM EDT Problem: Patient Care Overview Goal: Plan of Care Review Outcome: Ongoing (Interventions Implemented as Appropriate) OUTCOME EVALUATION NOTE: OUTCOME SUMMARY: Patient A/OX4, VSS, complaining of 10/10 abdominal/back pain. One time order of 105mg methadone given with great effect. Patient continued on NS @100. Went for ERCP today, large stone found in gallbladder duct, had to be broken and removed. Other stones were also found, d/t multiple stones found patient will get gallbladder removed tomorrow. Patient started on zosyn q8 and clear liq diet. Patient hasbeen resting since procedure complaining her throat hurts and that she is very hungry. No further events occurred, will continue to monitor. PLAN MOVING FORWARD: Gallbladder removal, pain managment INDIVIDUALIZED FALL PREVENTION INTERVENTIONS: Patient-specific fall risk factors per assessment: [current deficits]: Pain, IV sites Assistance [level of assistance required for transfers and ambulation]: SBA Supervision [direct monitoring required during toileting and ADLs]: independent Surveillance [continuous indirect monitoring]: Masimo, bed alarm on, room near nursing station, callbell within reach, purposeful rounding Patient-specific fall prevention interventions for sensory deficits provided, if applicable: [X] Yes CPG GOAL OUTCOME EVALUATION: Consult Note - Weston Dixon MD - 01/30/2019 8:07 AM EDT GASTROENTEROLOGY & HEPATOLOGY CONSULTATION Reason for consult: Elevated bili and abdominal pain HISTORY OF PRESENT ILLNESS: Ina Orellana is a 28 y.o. year old female with a past medical history of IV drug abuse complicated by infective endocarditis status post open heart surgery for mitral valve replacement, hepatitis C, chronic pain disorder who is on methadone presented to outside hospital with 5 days of epigastric and right upper quadrant abdominal pain with associated nausea and vomiting. ?? Patient had a total of 4 visits to outside hospital ED and last 5 days because of abdominal pain with associated nausea and vomiting. The pain initially started in right upper quadrant region but is currently diffuse. She endorses associated n/v/anorexia. She endorses subjective fevers and chills. She had normal LFTs on 01/26/[address] scan was done at that time which was normal. She was told that she has a constipation that is the cause of her pain. She was given an enema and suppository that resulted in a large bowel movement but she continued to have abdominal pain. Today she was jaundiced and her mom noticed that her stools are light in color. At outside hospital she was found to have AST of 90, ALT of 196, alk phos of 263, lipase 52, total bilirubin 7.3. CT scan of the abdomen and pelvis was repeated that showed intra-and extrahepatic biliary dilatation. It also showed cholelithiasis. ROS: Constitutional: no weight loss HEENT: no visual changes, no URI symptoms Cardio: no chest pain Resp: no cough, no SOB, no SHERMAN or orthopnea Hem/Lymph: no new lumps or bumps GI: see HPI : no dysuria Integumentary: no new rashes Musculoskeletal: no new joint pains Neuro: no new headaches, numbness or weakness PAST MEDICAL/SURGICAL HISTORY: Past Medical History: Diagnosis Date ??? Hepatitis C ??? Infective endocarditis ??? IV drug abuse MEDICATIONS ??? gabapentin 300 mg Oral TID ??? methadone 105 mg Oral Q8H GRACE ??? sodium chloride 0.9 % 5 mL Intravenous BID ??? sodium chloride 0.9% 1,000 mL (01/30/19 9614) hydrOXYzine, sodium chloride 0.9 %, lidocaine, ondansetron OR ondansetron, HYDROmorphone ALLERGIES No Known Allergies SOCIAL HISTORY Social History Socioeconomic History ??? Marital status: Single Spouse name: Not on file ??? Number of children: Not on file ??? Years of education: Not on file ??? Highest education level: Not on file Occupational History ??? Not on file Social Needs ??? Financial resource strain: Not on file ??? Food insecurity: Worry: Not on file Inability: Not on file ??? Transportation needs: Medical: Not on file Non-medical: Not on file Tobacco Use ??? Smoking status: Current Every Day Smoker ??? Smokeless tobacco: Never Used Substance and Sexual Activity ??? Alcohol use: Not Currently ??? Drug use: Not on file ??? Sexual activity: Not on file Lifestyle ??? Physical activity: Days per week: Not on file Minutes per session: Not on file ??? Stress: Not on file Relationships ??? Social connections: Talks on phone: Not on file Gets together: Not on file Attends [employer]aritan service: Not on file Active member of club or organization: Not on file Attends meetings of clubs or organizations: Not on file Relationship status: Not on file ??? Intimate partner violence: Fear of current or ex partner: Not on file Emotionally abused: Not on file Physically abused: Not on file Forced sexual activity: Not on file Other Topics Concern ??? Not on file Social History Narrative ??? Not on file FAMILY HISTORY History reviewed. No pertinent family history. PHYSICAL EXAM Last value Range last 24 hrs Temperature Temp: 36.4 ??C (97.5 ??F) Temp: [36.4 ??C (97.5 ??F)] Heart Rate Heart Rate: 67 Heart Rate: [63-67] Blood Pressure BP: 135/88 BP: (126-135)/(73-88) Respiratory Rate Resp: 19 Resp: [16-19] SpO2 SpO2: 99 % SpO2: [97 %-99 %] GENERAL: Well appearing, NAD HENT: AT/NC, MMM Sclerae anicteric NECK: Supple, no adenopathy CHEST: CTA with good air entery CARDIAC: RRR: Normal S1, S2, no murmurs. ABDOMEN:obese, Diffusley tender, no rebound or guarding Skin: +jaundice, no caput medusa, no palmar erythema EXT: Warm, well-perfused NEURO: moves all extremities LABS: Recent Labs 01/30/19 06 WBC 6.4 HGB 11.6* HCT 35.3* PLATELET 278 Recent Labs 01/30/19 06 NA 141 K 3.5 CL 104 CO2 23 BUN 6* CREATININE 0.63* Recent Labs 01/30/19604 ALBUMIN 3.8 AST 73* ALT 128* ALKPHOS 235* BILITOT 6.8* BILIDIR 5.7* Recent Labs 01/30/19 06 INR 1.1 IMAGING: - Reviewd ENDOSCOPY: - Reviewed IMPRESSION: Ina Orellana is a 28 y.o. year old female with a past medical history of IV drug abuse complicated by infective endocarditis status post open heart surgery for mitral valve replacement, hepatitis C, chronic pain disorder who is on methadone presented to outside hospital with 5 days of epigastric and right upper quadrant abdominal pain with associated nausea and vomiting. Presentation is consistent with obstructing CBD stone, at this point no evidence of cholangitis, will proceed to ERCP today for stone extraction. RECOMMENDATIONS: # NPO for ERCP today # Should have surgical consult for CCY # Monitor for fevers/rising WBC # See procedure note for further recs The plan as outlined above was discussed with Dr. Dixon. The recommendations were discussed with the primary team. Yrn Alvarenga MD Fellow in Gastroenterology & Hepatology [id number] I have seen and evaluated the patient with Dr Alvarenga . I have reviewed the resident/fellow's history during the encounter and I agree with the details as written above. My physical examination confirms the above findings. The assessment and plan were formulated in discussion with me at the time of the en counter and I agree with them as documented. documented in this encounter Plan of Treatment Pending Results Name Type Priority Associated Diagnoses Date/Ti me XR ERCP Imaging Storage Only Routine 019 8:33 AM EDT Scheduled Orders Name Type Priority Associated Diagnoses Order S chedule XR ERCP Imaging Storage Only Routine Once ME N (for Radiant use) for 1 Occurrenc es starting 01/30/2019 unti l 01/30/2019 documented as of this encounter Procedures Procedure Name Priority Date/Time Associated Comments Diagnosis HEMOGRAM Routine 02/02/2019 6:06 Results for this AM EDT procedure are i n the results section. DIFFERENTIAL, AUTOMATED Routine 02/02/2019 6:06 R esults for this AM EDT procedure are i n the results section. CBC (WITH DIFF) Routine 02/02/2019 6:06 AM EDT HEPATIC FUNCTION PANEL Routine 02/02/2019 6:06 Re sults for this AM EDT procedure are i n the results section. BASIC METABOLIC PANEL Routine 02/02/2019 6:06 Res ults for this (NON-FASTING) AM EDT procedure are in the results section. SURGICAL PATHOLOGY Routine 02/01/2019 10:14 Resul ts for this REPORT AM EDT procedure are i n the results section. SPECIMEN TO PATHOLOGY Routine 02/01/2019 9:46 Res ults for this AM EDT procedure are i n the results section. XR FLUORO NO RAD <1HR - Routine 02/01/2019 9:44 R esults for this OR USE AM EDT procedure are i n the results section. LAPAROSCOPIC Yes 02/01/2019 7:34 LLQ PAIN CHOLECYSTECTOMY WITH AM EDT CHOLANGIOGRAM (WRVU 11.47) ABORH RECHECK STATUS Routine 02/01/2019 6:20 Resu lts for this AM EDT procedure are i n the results section. HEMOGRAM Routine 02/01/2019 6:20 Results for this AM EDT procedure are i n the results section. DIFFERENTIAL, AUTOMATED Routine 02/01/2019 6:20 R esults for this AM EDT procedure are i n the results section. ABO/RH TYPING Routine 02/01/2019 6:20 Results for this AM EDT procedure are i n the results section. CBC (WITH DIFF) Routine 02/01/2019 6:20 AM EDT ANTIBODY SCREEN Routine 02/01/2019 6:20 Results f or this AM EDT procedure are i n the results section. TYPE AND SCREEN Routine 02/01/2019 6:20 ([facility]/SABA) AM EDT HEPATIC FUNCTION PANEL Routine 02/01/2019 6:20 Re sults for this AM EDT procedure are i n the results section. BASIC METABOLIC PANEL Routine 02/01/2019 6:20 Res ults for this (NON-FASTING) AM EDT procedure are in the results section. C. DIFFICILE SCREEN Routine 01/31/2019 6:13 Resul ts for this AM EDT procedure are i n the results section. HEMOGRAM Routine 01/31/2019 3:51 Results for this AM EDT procedure are i n the results section. DIFFERENTIAL, AUTOMATED Routine 01/31/2019 3:51 R esults for this AM EDT procedure are i n the results section. CBC (WITH DIFF) Routine 01/31/2019 3:51 AM EDT HEPATIC FUNCTION PANEL Routine 01/31/2019 3:51 Re sults for this AM EDT procedure are i n the results section. BASIC METABOLIC PANEL Routine 01/31/2019 3:51 Res ults for this (NON-FASTING) AM EDT procedure are in the results section. ERCP 01/30/2019 11:[address] Rosales AM EDT ERCP Routine 01/30/2019 11:09 Results for this AM EDT procedure are i n the results section. BLOOD CULTURE STAT 01/30/2019 7:21 Results for this AM EDT procedure are i n the results section. HEMOGRAM Routine 01/30/2019 6:05 Results for this AM EDT procedure are i n the results section. DIFFERENTIAL, AUTOMATED Routine 01/30/2019 6:05 R esults for this AM EDT procedure are i n the results section. HEPATITIS C RNA, Routine 01/30/2019 6:05 Results for this QUANTITATIVE, PCR AM EDT procedure are in the results section. BLOOD CULTURE STAT 01/30/2019 6:05 Results for this AM EDT procedure are i n the results section. APTT Routine 01/30/2019 6:05 Results for this AM EDT procedure are i n the results section. PROTHROMBIN TIME Routine 01/30/2019 6:05 Results for this AM EDT procedure are i n the results section. CBC (WITH DIFF) Routine 01/30/2019 6:05 AM EDT PHOSPHORUS Routine 01/30/2019 6:05 Results for this AM EDT procedure are i n the results section. MAGNESIUM Routine 01/30/2019 6:05 Results for this AM EDT procedure are i n the results section. LIPASE Routine 01/30/2019 6:05 Results for this AM EDT procedure are i n the results section. HEPATIC FUNCTION PANEL Routine 01/30/2019 6:05 Re sults for this AM EDT procedure are i n the results section. BASIC METABOLIC PANEL Routine 01/30/2019 6:05 Res ults for this (NON-FASTING) AM EDT procedure are in the results section. documented in this encounter Results Differential, Automated (02/02/2019 6:06 AM EDT) athologist Signature Neutrophils % 60.5 % [facility] Neutr Abs (ANC) 5.27 1.70 - [facility] 6.10 [facility] x10(3)/[facility] LABORATORY Lymphocytes % 33.9 % [facility] Lymphocytes Abs 3.0 0.9 - 3.2 [facility] x10(3)/[facility] LABORATORY Monocytes % 4.5 % [facility] Monocyte Abs 0.4 0.3 - 0.9 [facility] x10(3)/[facility] LABORATORY Eosinophils % 0.2 % [facility] Eosinophils Abs 0.0 0.0 - 0.4 [facility] x10(3)/[facility] LABORATORY Basophils % 0.6 % [facility] Basophils Abs 0.0 0.0 - 0.1 [facility] x10(3)/[facility] LABORATORY Immature Gran % 0.30 % [facility] Comment: Immature granulocytes(IG's)percentage an d absolute count will include metamyelocytes, myelocytes, and promyelo cytes. Blood smears from CBCs yielding IG's will be scanned manually for concor dance. If this scan disagrees with the automated IG or if promyelocytes are not ed, a manual differential will be performed. Jaz Gran Abs 0.03 0.00 - 0.04 x10(3)/[facility] Specimen Anatomical Collection Method Collection Time Receive d Time (Source) Location / / Volume Laterality Blood specimen 02/02/2019 6:06 AM 019 6:46 (specimen) EDT AM EDT Resulting Agency Comment Spec In Lab Chas Soni MD HEMATOLOGY ORDERABLES Performing Organization Address City/State/[place] [address] (ABNORMAL) Hemogram (02/02/2019 6:06 AM EDT) Analysis Performed At Patho logist Time Signature WBC 8.7 4.0 - 9.5 [facility] LABORATORY RBC 3.81 (L) 4.00 - [facility] [place]UR[place] 5.21 [facility] x10(6)/[facility] LABORATORY Hemoglobin 10.7 (L) 11.7 [facility] 15.5 gm/dL [facility] Hematocrit 33.1 (L) 35.7 - [facility] 45.8 % [facility] MCV 86.9 82.6 - [facility]4 [facility] LABORATORY MCH 28.1 27.1 - [facility] [place] 32.0 pg [facility] MCHC 32.3 31.7 - [facility] 35.0 gm/dL [facility] Platelets 266 145 - 357 [facility] x10(3)/[facility] LABORATORY RDWSD 49.6 (H) 37.0 - [facility] [employer] 46.0 [facility] LABORATORY RDWCV 15.7 (H) 11.5 - [facility] [place] 14.1 % [facility] MPV 11.1 7.6 - 12.9 [facility] LABORATORY nRBC % Auto 0.0 % [facility] nRBC Abs Auto 0.000 0.000 - [facility] [place] 0.000 [facility] x10(3)/[facility] LABORATORY Specimen Anatomical Collection Method Collection Time Receive d Time (Source) Location / / Volume Laterality Blood specimen 02/02/2019 6:06 AM 019 6:46 (specimen) EDT AM EDT Resulting Agency Comment Spec In Lab Chas Soni MD HEMATOLOGY ORDERABLES Performing Organization Address City/[facility]/[place] [address] (ABNORMAL) Hepatic Function Panel (02/02/2019 6:06 AM EDT) athologist Signature Total Protein 6.2 6.1 - 8.0 [facility] [place] gm/dL [facility] Albumin 3.5 3.2 - 5.2 [facility] gm/dL [facility] AST 30 0 - 30 [facility] unit/L [facility] ALT 71 (H) 0 - 30 [facility]L [facility] Alk Phos 162 (H) 40 - 104 [facility] unit/L [facility] Total 1.4 (H) 0.2 - 1.3 [facility] Bilirubin mg/dL [facility] Bili, Direct 0.8 (H) 0.0 - 0.3 [facility] [place] mg/dL [facility] Specimen Anatomical Collection Method Collection Time Receive d Time (Source) Location / / Volume Laterality Blood specimen 02/02/2019 6:06 AM 019 6:46 (specimen) EDT AM EDT Resulting Agency Comment Spec In Lab Melissa Vinson MD CHEMISTRY ORDERABLES Performing Organization Address City/[facility]/[place] [address] Basic Metabolic Panel (non-fasting) (02/02/2019 6:06 AM EDT) athologist Signature Glucose Lvl 99 65 - 199 [facility] mg/dL [facility] Comment: Diabetes: >=200 mg/dL plus symp toms BUN 8 8 - 18 mg/dL [facility] Creatinine 0.70 0.70 - 1.20 mg/dL [facility] Sodium 141 135 - 145 mmol/L [facility] Potassium 3.5 3.5 - 5.0 mmol/L [facility] Comment: Please note: ??Patients with WBC >100,00 0 may have falsely elevated Potassium levels. ??For accurate Potassium quantif ication in these patients send serum separator tube (gold top) for subsequent determinations. ??Contact the Clinical Chemistry Laboratory if there are any qu estions. Chloride 102 98 - 107 mmol/L [facility] CO2 28 22 - 31 mmol/L [facility] Anion Gap 11 5 - 15 mmol/L [facility] Calcium 8.7 8.5 - 10.5 mg/dL [facility] Estimated GFR 117 >=60 mL/min/1.73 m?? [facility] Comment: The eGFR was calculated using the CKD-EP I equation. As with all creatinine based estimates of kidney function, eGFR values calculated with the CKD-EPI equation are not accurate in patients wi th acute kidney failure, extremes of body mass or the acutely ill. [email or web address]/[facility] [place] [place] eGFR 136 >=60 mL/min/1.73 m?? [facility] Comment: The eGFR was calculated using the CKD-EP I equation. As with all creatinine based estimates of kidney function, eGFR values calculated with the CKD-EPI equation are not accurate in patients wi th acute kidney failure, extremes of body mass or the acutely ill. [email or web address] Specimen Anatomical Collection Method Collection Time Receive d Time (Source) Location / / Volume Laterality Blood specimen 02/02/2019 6:06 AM 019 6:46 (specimen) EDT AM EDT Resulting Agency Comment Spec In Lab Melissa Vinson MD CHEMISTRY ORDERABLES Performing Organization Address City/State/ZIP Code Phon e Number [place] [id number] LAB[address]ORY [address] Surgical Pathology Report (02/01/2019 10:14 AM EDT) Component Value Ref Test Analysis Performed At [facility] Range Method Time Signature Surgical [id number] ? Location: 3EST; 0330; A [facility] Pathology [place] Report The signing pathologist has (i) examined the relevant preparation(s) for the [facility]ORIAL specimen(s) and (ii) rendered or confirmed the diagnosis(es) . HOSPITAL LABORATORY . ?Surgic al Pathology DIAGNOSIS Gallbladder, cholecystectomy: - Hyalinizing chronic cholecystitis. - ??Cholelithiasis. Electronically signed by: ??Heriberto Maier MD Verified: ??02/03/2019 ?Pathologist Performed at: ??-[facility] [place] Dept. of Pathology, [place], [place] CLINICAL INFORMATION Specimen Submitted: A - gallbladder Clinical History and Diagnosis: LLQ pain SPECIMEN PROCESSING A - Labeled/Fixative: Gallbladder, fresh. Quantity/Size: ??Single, 7.3 x 3.5 x 3.0 cm. Specimen Description: Gallbladder, received intact. Serosa: Congested, pink-red Adventitia: Roughened, granular red-brown Lumen contents: Pale pink, viscous, bile. Gallstones: Present: Multiple, black gallstones ranging fr om, 0.2-1.6 cm cm Mucosa: Smooth, pale, pink-white Wall: 0.2-0.7 cm thick. Thic kened, hardin-white intact wall with thickening surrounding the duct. Duct: 0.2 cm, patent. Ink Designation: The hepatic margin is inked black Sections/Processing: Bushel Worker sections in 3 cassettes as follows: ?A1: ??cystic duct margin and senior customer service representative mucosa. ?A2-A3: ??Additional sections of mucosa ??pps Specimen (Source) Anatomical Collection Method Collection Time Re ceived Time Location / / Volume Laterality 02/01/2019 10:14 AM EDT Jorden Hogan MD PATHOLOGY/CYTOLOGY ORDERABLE S Performing Organization Address City/State/[place] [address] Specimen to Pathology (02/01/2019 9:46 AM EDT) Specimen Anatomical Collection Method Collection Time Receive d Time (Source) Location / / Volume Laterality AP Specimen 02/01/2019 9:46 AM 9 9:46 EDT AM EDT Narrative [facility] - 02/01/2019 9:46 AM EDT Specimen requisition ordered. ??Separate Pathology report to follow Jorden Hogan MD PATHOLOGY/CYTOLOGY ORDERABLE S Performing Organization Address City/[facility]/[place]IP [place] [address] XR Fluoro No Rad <1Hr - OR Use (02/01/2019 9:44 AM EDT) Specimen (Source) Anatomical Location Collection Method / Collectio n Time Received Time / Laterality Volume Narrative [facility] - 02/01/2019 9:44 AM EDT This exam is auto-finalizing. No interpr etation was done. Jorden Hogan MD IMG FLUORO ORDERABLES Performing Organization Address [facility]/ZIP Code Phon e Number DH RAD DH RAD [place], [place] ABORH Recheck Status (02/01/2019 6:20 AM EDT) [facility] gist Method Time Signature ABORH Recheck Order Placed [facility] LABORATORY ABORH Type Complete [facility] LABORATORY Specimen Anatomical Collection Method Collection Time Receive d Time (Source) Location / / Volume Laterality Blood specimen 02/01/2019 6:20 AM 019 7:06 (specimen) EDT AM EDT Resulting Agency Comment Spec In Lab Melissa Vinson MD BLOOD BANK ORDERABLES Performing Organization Address City/[facility]/[place] [address] Antibody screen (02/01/2019 6:20 AM EDT) [facility] gist Method Time Signature Ab Screen Negative [facility] LABORATORY Expires at 02/04/2019 [place] REINOSOAPURVA [id number] on: [facility] Specimen Anatomical Collection Method Collection Time Receive d Time (Source) Location / / Volume Laterality Blood specimen 02/01/2019 6:20 AM 019 7:06 (specimen) EDT AM EDT Resulting Agency Comment Spec In Lab Melissa Vinson MD BLOOD BANK ORDERABLES Performing Organization Address City/State/[place] [address] ABO/Rh Typing (02/01/2019 6:20 AM EDT) P athologist Signature ABORh Type O Pos [facility] Specimen Anatomical Collection Method Collection Time Receive d Time (Source) Location / / Volume Laterality Blood specimen 02/01/2019 6:20 AM 019 7:06 (specimen) EDT AM EDT Resulting Agency Comment Spec In Lab Melissa Vinson MD BLOOD BANK ORDERABLES Performing Organization Address City/State/[place] [address] [facility] LABORAT[address] Drive (ABNORMAL) Differential, Automated (02/01/2019 6:20 AM EDT) Patholo gist Method Time Signature Neutrophils % 69.9 % [facility] Neutr Abs (ANC) 6.33 (H) 1.70 - [facility] 6.10 [facility] x10(3)/[facility] LABORATORY Lymphocytes % 25.9 % [facility] Lymphocytes Abs 2.4 0.9 - 3.2 [facility] x10(3)/[facility] LABORATORY Monocytes % 2.9 % [facility] Monocyte Abs 0.3 0.3 - 0.9 [facility] x10(3)/[facility] LABORATORY Eosinophils % 0.3 % [facility] Eosinophils Abs 0.0 0.0 - 0.4 [facility] x10(3)/[facility] LABORATORY Basophils % 0.4 % [facility] Basophils Abs 0.0 0.0 - 0.1 [facility] x10(3)/[facility] LABORATORY Immature Gran % 0.60 % [facility] Comment: Immature granulocytes(IG's)percentage an d absolute count will include metamyelocytes, myelocytes, and promyelo cytes. Blood smears from CBCs yielding IG's will be scanned manually for concor dance. If this scan disagrees with the automated IG or if promyelocytes are not ed, a manual differential will be performed. Jaz Gran Abs 0.05 (H) 0.00 - 0.04 x10(3)/[facility] LABORATORY Specimen Anatomical Collection Method Collection Time Receive d Time (Source) Location / / Volume Laterality Blood specimen 02/01/2019 6:20 AM 019 6:29 (specimen) EDT AM EDT Resulting Agency Comment Spec In Lab Edenilson Rosales MD HEMATOLOGY ORDERABLES Performing Organization Address City/State/[place] [address] (ABNORMAL) Hemogram (02/01/2019 6:20 AM EDT) Analysis Performed At Patho logist Time Signature WBC 9.1 4.0 - 9.5 [facility] x10(3)/[facility] LABORATORY RBC 3.74 (L) 4.00 - [facility] x10(6)/[facility] LABORATORY Hemoglobin 10.7 (L) 11.7 - [facility] 15.5 gm/dL [facility] Hematocrit 32.9 (L) 35.7 - [facility] APURVA 45.8 % [facility] MCV 88.0 82.6 - [facility] 94.4 [facility] LABORATORY MCH 28.6 27.1 - [facility] APURVA 32.0 pg [facility] MCHC 32.5 31.7 - [facility] 35.0 gm/dL [facility] Platelets 245 145 - 357 [facility] x10(3)/[facility] LABORATORY RDWSD 49.1 (H) 37.0 - [place] APURVA 46.0 [facility] LABORATORY RDWCV 15.5 (H) 11.5 - [facility] APURVA 14.1 % [facility] MPV 10.6 7.6 - 12.9 [facility] LABORATORY nRBC % Auto 0.0 % [facility] nRBC Abs Auto 0.000 0.000 - [place] APURVA 0.000 [facility] x10(3)/[facility] LABORATORY Specimen Anatomical Collection Method Collection Time Receive d Time (Source) Location / / Volume Laterality Blood specimen 02/01/2019 6:20 AM 019 6:29 (specimen) EDT AM EDT Resulting Agency Comment Spec In Lab Edenilson Rosales MD HEMATOLOGY ORDERABLES Performing Organization Address City/[facility]/[place] [address] (ABNORMAL) Hepatic Function Panel (02/01/2019 6:20 AM EDT) P athologist Signature Total Protein 6.0 (L) 6.1 - 8.0 [facility] APURVA gm/dL [facility] Albumin 3.3 3.2 - 5.2 [facility] gm/dL [facility] AST 33 (H) 0 - 30 [facility]L [facility] ALT 88 (H) 0 - 30 [facility]/L [facility] Alk Phos 179 (H) 40 - 104 [facility] unit/L [facility] Total 1.8 (H) 0.2 - 1.3 [facility] Bilirubin mg/dL [facility] Bili, Direct 1.0 (H) 0.0 - 0.3 [facility] APURVA mg/dL [facility] Comment: result rechecked-es Specimen Anatomical Collection Method Collection Time Receive d Time (Source) Location / / Volume Laterality Blood specimen 02/01/2019 6:20 AM 019 6:29 (specimen) EDT AM EDT Resulting Agency Comment Spec In Lab Melissa Vinson MD CHEMISTRY ORDERABLES Performing Organization Address City/[facility]/[place] [address] (ABNORMAL) Basic Metabolic Panel (non-fasting) (02/01/2019 6:20 AM EDT) P athologist Signature Glucose Lvl 117 65 - 199 [facility] mg/dL [facility] Comment: Diabetes: >=200 mg/dL plus symp toms BUN 6 (L) 8 - 18 mg/dL [facility] Creatinine 0.80 0.70 - 1.20 mg/dL [facility] OCK [facility] Sodium 143 135 - 145 mmol/L [facility] Potassium 3.6 3.5 - 5.0 mmol/L [facility] Comment: Please note: ??Patients with WBC >100,00 0 may have falsely elevated Potassium levels. ??For accurate Potassium quantif ication in these patients send serum separator tube (gold top) for subsequent determinations. ??Contact the Clinical Chemistry Laboratory if there are any qu estions. Chloride 108 (H) 98 - 107 mmol/L [facility] CO2 24 22 - 31 mmol/L [facility] Anion Gap 11 5 - 15 mmol/L [facility] Calcium 8.6 8.5 - 10.5 mg/dL [facility] Estimated GFR 100 >=60 mL/min/1.73 m?? [facility] Comment: The eGFR was calculated using the CKD-EP I equation. As with all creatinine based estimates of kidney function, eGFR values calculated with the CKD-EPI equation are not accurate in patients wi th acute kidney failure, extremes of body mass or the acutely ill. [email or web address] [place] CITYnk[place] eGFR 115 >=60 mL/min/1.73 m?? [facility] Comment: The eGFR was calculated using the CKD-EP I equation. As with all creatinine based estimates of kidney function, eGFR values calculated with the CKD-EPI equation are not accurate in patients wi th acute kidney failure, extremes of body mass or the acutely ill. [email or web address] Specimen Anatomical Collection Method Collection Time Receive d Time (Source) Location / / Volume Laterality Blood specimen 02/01/2019 6:20 AM 019 6:29 (specimen) EDT AM EDT Resulting Agency Comment Spec In Lab Melissa Vinson MD CHEMISTRY ORDERABLES Performing Organization Address City/State/[place] [address] C. Difficile Screen (01/31/2019 6:13 AM EDT) Analysis Performed At Patho logist Time Signature C Diff Screen Negative Negative [facility] Comment: C. diff ??Negative Clostridium difficile is not present in the specimen. If patient is having diarrhea suspected to be from an infecti ous cause, then Contact Precautions are still required. Specimen Anatomical Collection Method Collection Time Receive d Time (Source) Location / / Volume Laterality Stool specimen 01/31/2019 6:13 AM 019 7:31 (specimen) EDT AM EDT Resulting Agency Comment Spec In Lab Edenilson Rosales MD MICROBIOLOGY - GENERAL ORDER CURTIS Performing Organization Address City/[facility]/ZIP [facility] [place] Phon e Number [address] (ABNORMAL) Hepatic Function Panel (01/31/2019 3:51 AM EDT) P athologist Signature Total Protein 7.1 6.1 - 8.0 [facility] gm/dL [facility] Albumin 3.7 3.2 - 5.2 [facility] gm/dL [facility] AST 78 (H) 0 - 30 [facility] unit/L [facility] ALT 124 (H) 0 - 30 [facility]/L [facility] Alk Phos 244 (H) 40 - 104 [facility] unit/L [facility] Total 5.2 (H) 0.2 - 1.3 [facility] Bilirubin mg/dL [facility] Bili, Direct 4.1 (H) 0.0 - 0.3 [facility] mg/dL [facility] Specimen Anatomical Collection Method Collection Time Receive d Time (Source) Location / / Volume Laterality Blood specimen 01/31/2019 3:51 AM 019 4:02 (specimen) EDT AM EDT Resulting Agency Comment Spec In Lab Edenilson Rosales MD CHEMISTRY ORDERABLES Performing Organization Address City/[facility] Phon e Number [address] (ABNORMAL) Differential, Automated (01/31/2019 3:51 AM EDT) Patholo gist Method Time Signature Neutrophils % 89.3 % [facility] Neutr Abs (ANC) 8.14 (H) 1.70 - [facility] 6.10 [facility] x10(3)/[facility] L LABORATORY Lymphocytes % 9.4 % [facility] Lymphocytes Abs 0.9 0.9 - 3.2 [facility] x10(3)/[facility] LABORATORY Monocytes % 0.9 % [facility] Monocyte Abs 0.1 (L) 0.3 - 0.9 [facility] x10(3)/[facility] LABORATORY Eosinophils % 0.0 % [facility] Eosinophils Abs 0.0 0.0 - 0.4 [facility] x10(3)/[facility] LABORATORY Basophils % 0.1 % [facility] Basophils Abs 0.0 0.0 - 0.1 [facility] x10(3)/[facility] LABORATORY Immature Gran % 0.30 % [facility] Comment: Immature granulocytes(IG's)percentage an d absolute count will include metamyelocytes, myelocytes, and promyelo cytes. Blood smears from CBCs yielding IG's will be scanned manually for concor dance. If this scan disagrees with the automated IG or if promyelocytes are not ed, a manual differential will be performed. Jaz Gran Abs 0.03 0.00 - 0.04 x10(3)/[facility] Specimen Anatomical Collection Method Collection Time Receive d Time (Source) Location / / Volume Laterality Blood specimen 01/31/2019 3:51 AM 019 4:02 (specimen) EDT AM EDT Resulting Agency Comment Spec In Lab Edenilson Rosales MD HEMATOLOGY ORDERABLES Performing Organization Address City/State/[place] [address] (ABNORMAL) Hemogram (01/31/2019 3:51 AM EDT) Analysis Performed At Patho logist Time Signature WBC 9.1 4.0 - 9.5 [facility] x10(3)/[facility] LABORATORY RBC 4.41 4.00 - [facility] 5.21 [facility] x10(6)/[facility] LABORATORY Hemoglobin 12.5 11.7 - [facility] 15.5 gm/dL [facility] Hematocrit 38.0 35.7 - [place] LIZARRAGACK 45.8 % [facility] MCV 86.2 82.6 - [place] APURVA 94.4 [facility] LABORATORY MCH 28.3 27.1 - J[place] LU[place] LIZARRAGACK 32.0 pg [facility] MCHC 32.9 31.7 - [place] MANTILLACOCK 35.0 gm/dL [facility] Platelets 292 145 - 357 [facility] x10(3)/[facility] LABORATORY RDWSD 46.7 (H) 37.0 - [place] APURVA 46.0 [facility] LABORATORY RDWCV 14.6 (H) 11.5 - [place] APURVA 14.1 % [facility] MPV 11.0 7.6 - 12.9 [facility] LABORATORY nRBC % Auto 0.0 % [facility] nRBC Abs Auto 0.000 0.000 - [place] MIXON 0.000 [facility] x10(3)/[facility] LABORATORY Specimen Anatomical Collection Method Collection Time Receive d Time (Source) Location / / Volume Laterality Blood specimen 01/31/2019 3:51 AM 019 4:02 (specimen) EDT AM EDT Resulting Agency Comment Spec In Lab Edenilson Rosales MD HEMATOLOGY ORDERABLES Performing Organization Address City/State/[place] [address] (ABNORMAL) Basic Metabolic Panel (non-fasting) (01/31/2019 3:51 AM EDT) P athologist Signature Glucose Lvl 217 (H) 65 - 199 [facility] mg/dL [facility] Comment: delta result rechecked-KLA Diabetes: >=200 mg/dL plus symptoms BUN 4 (L) 8 - 18 mg/dL [facility] Creatinine 0.70 0.70 - 1.20 mg/dL [facility] Sodium 140 135 - 145 mmol/L [facility] Potassium 4.2 3.5 - 5.0 mmol/L [facility] Comment: Please note: ??Patients with WBC >100,00 0 may have falsely elevated Potassium levels. ??For accurate Potassium quantif ication in these patients send serum separator tube (gold top) for subsequent determinations. ??Contact the Clinical Chemistry Laboratory if there are any qu estions. Chloride 106 98 - 107 mmol/L [facility] CO2 23 22 - 31 mmol/L [facility] Anion Gap 11 5 - 15 mmol/L [facility] Calcium 9.1 8.5 - 10.5 mg/dL [facility] Estimated GFR 117 >=60 mL/min/1.73 m?? [facility] Comment: The eGFR was calculated using the CKD-EP I equation. As with all creatinine based estimates of kidney function, eGFR values calculated with the CKD-EPI equation are not accurate in patients wi th acute kidney failure, extremes of body mass or the acutely ill. [email or web address] Englishnkf eGFR 136 >=60 mL/min/1.73 m?? [facility] Comment: The eGFR was calculated using the CKD-EP I equation. As with all creatinine based estimates of kidney function, eGFR values calculated with the CKD-EPI equation are not accurate in patients wi th acute kidney failure, extremes of body mass or the acutely ill. [email or web address] Specimen Anatomical Collection Method Collection Time Receive d Time (Source) Location / / Volume Laterality Blood specimen 01/31/2019 3:51 AM 019 4:02 (specimen) EDT AM EDT Resulting Agency Comment Spec In Lab Melissa Vinson MD CHEMISTRY ORDERABLES Performing Organization Address City/State/[place] [address] ERCP (01/30/2019 11:09 AM EDT) Component Value Ref Test Analysis Performed At [facility] gist Range Method Time Signature ERCP [facility] Endoscopy Procedure Date: 01/30/2019 11:09 AM ? Patient Name: Ina Orellana ? Date of : 1990 ? Age: 28 ? Order #: [id number] ? Instrument Name: [id number] ? Procedure: ? ERCP Indications: ? Bile duct stone(s), Abdominal pain of ? 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 Elevated liver enzymes, dilat ed CBD ? on CT scan Providers: ? Weston Dixon MD, Sonia Castro, ? Imtiaz Bai, MINDA, Lyudmila Stark, ? Medicaid Billing Clerk Referring MD: ? Medicines: ? Propofol per Anesthesia ? Indomethacin pr ? 2 l NS Complications: ? No immediate complications. Procedure: ? The procedure, indications, benefi ts, ? risks and alternatives were e xplained ? to the patient. Specifically ? discussed were potential ? complications including, but not ? limited to, bleeding, perfora tion, ? infection, pancreatitis, miss ing a ? cancer, and adverse medicatio n ? reactions. The Duodenoscope w as ? introduced through the mouth, and ? advanced to the duodenum wher e it was ? used to inject contrast into and used ? to inject contrast into the b ile ? duct. The ERCP was accomplish ed ? without difficulty. The patie nt ? tolerated the procedure well. ? Findings: ? The food service attendant film was normal. The esophagus was ? successfully intubated under direct vision. The scope ? was advanced to a normal major papilla in the ? descending duodenum without detailed examination of ? the pharynx, larynx and associated structures, and ? upper GI tract. The upper GI tract was grossly normal ? however there were stress erosions in the duodenum ? near the ampulla. The bile duct was deeply cannulated ? with the short-nosed traction sphincterotome using ? the 025 Visiglide wire. The pancreatic duct was not ? accessed. Contrast was injected. I personally ? interpreted the bile duct images. There was brisk ? flow of contrast through the ducts. Image quality was ? excellent. Contrast extended to the intrahepatics. . ? The main bile duct was diffusely dilated, with a ? stone causing an obstruction. The largest diameter ? was 12 mm. The middle third of the main bile duct ? contained a filling defect thought to be a stone. The ? cystic duct and gallbladder did not fill. An 9 mm ? biliary sphincterotomy was made with a monofilament ? traction (standard) sphincterotome using ERBE ? electrocautery over the wire. There was no ? post-sphincterotomy bleeding. The biliary tree was ? swept with an 8.5 mm balloon starting at the right ? intrahepatic duct. There was a large stone that could ? not be delivered. The 11.5 mm balloon could not be ? delivered into the duodenum, so DASE was performed to ? 10 mm. This fragmented the stone and one stone was ? removed with multiple fragments as well as some pus ? using the 11.5 mm balloon. No stones remained, ? occlusion cholangiogram was negative. ? Moderate Sedation: ? Not applicable - See Anesthesia documentation Impression: ?- A filling defect consistent with a ? stone was seen on the cholang iogram. ? - The entire main bile duct w as ? dilated, with a stone causing an ? obstruction. ? - Choledocholithiasis was fou nd. ? Complete removal was accompli shed by ? biliary sphincterotomy, DASE and ? balloon extraction. Recommendation: ?Antibiotic dose ? Clear liquids ? Pain control ? Cholecystectomy ? Attending Participation: ? I personally performed the entire procedure. ? Weston Dixon MD 01/30/2019 12:39:15 PM This report has been signed electronically. Number of Addenda: 0 Note Initiated On: 01/30/2019 11:09 AM Specimen (Source) Anatomical Collection Method Collection Time Re ceived Time Location / / Volume Laterality 01/30/2019 11:09 AM EDT Unknown GENERAL SURGICAL ORDERABLES Performing Organization Address City/State/ZIP Code Phon e Number [place] Blood culture (01/30/2019 7:21 AM EDT) Patholo gist Method Time Signature Blood Culture No growth JOS[place] LU[place] MIXON at 5 days. [facility] Specimen Anatomical Collection Method Collection Time Receive d Time (Source) Location / / Volume Laterality Blood specimen STRUCTURE OF RIGHT 01/30/2019 7:21 AM 0 01/30/2019 7:21 (specimen) FOREARM / Unknown EDT AM EDT Resulting Agency Comment Spec In Lab Edenilson Rosales MD MICROBIOLOGY - BLOOD ORDERAB LES Performing Organization Address City/State/ZIP Code Phon e Number [place] [address] Lipase (01/30/2019 6:05 AM EDT) P athologist Signature Lipase 9 0 - 60 J[place] MIXON unit/L [facility] Specimen Anatomical Collection Method Collection Time Receive d Time (Source) Location / / Volume Laterality Blood specimen Venous Draw / 01/30/2019 6:05 AM 2018 6:28 (specimen) Unknown EDT AM EDT Resulting Agency Comment Spec In Lab Edenilson Rosales MD CHEMISTRY ORDERABLES Performing Organization Address City/State/[place] [address] Differential, Automated (01/30/2019 6:05 AM EDT) athologist Signature Neutrophils % 70.2 % [facility] Neutr Abs (ANC) 4.50 1.70 - [facility] 6.10 [facility] x10(3)/[facility] LABORATORY Lymphocytes % 22.7 % [facility] Lymphocytes Abs 1.4 0.9 - 3.2 [facility] x10(3)/[facility] LABORATORY Monocytes % 4.5 % [facility] Monocyte Abs 0.3 0.3 - 0.9 [facility] x10(3)/[facility] LABORATORY Eosinophils % 1.9 % [facility] Eosinophils Abs 0.1 0.0 - 0.4 [facility] x10(3)/[facility] LABORATORY Basophils % 0.5 % [facility] Basophils Abs 0.0 0.0 - 0.1 [facility] x10(3)/[facility] LABORATORY Immature Gran % 0.20 % [facility] Comment: Immature granulocytes(IG's)percentage an d absolute count will include metamyelocytes, myelocytes, and promyelo cytes. Blood smears from CBCs yielding IG's will be scanned manually for concor dance. If this scan disagrees with the automated IG or if promyelocytes are not ed, a manual differential will be performed. Jaz Gran Abs 0.01 0.00 - 0.04 x10(3)/[facility] Y [facility] Specimen Anatomical Collection Method Collection Time Receive d Time (Source) Location / / Volume Laterality Blood specimen 01/30/2019 6:05 AM 019 6:26 (specimen) EDT AM EDT Resulting Agency Comment Spec In Lab Edenilson Rosales MD HEMATOLOGY ORDERABLES Performing Organization Address City/State/[place] [address] (ABNORMAL) Hemogram (01/30/2019 6:05 AM EDT) Analysis Performed At Patho logist Time Signature WBC 6.4 4.0 - 9.5 [facility] x[facility](3[facility] LABORATORY RBC 4.16 4.00 - J[place] [place] APURVA 5.21 [facility] x10(6)/[facility] LABORATORY Hemoglobin 11.6 (L) 11.7 - [place] APURVA 15.5 gm/dL [facility] Hematocrit 35.3 (L) 35.7 [facility] 45.8 % [facility] MCV 84.9 82.6 - [facility] 94.4 [facility] LABORATORY MCH 27.9 27.1 - J[place] APURVA 32.0 pg [facility] MCHC 32.9 31.7 - J[place] APURVA 35.0 gm/dL [facility] Platelets 278 145 - 357 [facility] x10(3)/[facility] LABORATORY RDWSD 45.7 37.0 - JOSÉ LUIS APURVA 46.0 [facility] LABORATORY RDWCV 14.6 (H) 11.5 - [facility] APURVA 14.1 % [facility] MPV 10.5 7.6 - 12.9 JOSÉ LUIS APURVA [facility] LABORATORY nRBC % Auto 0.0 % [facility] nRBC Abs Auto 0.000 0.000 - [facility] APURVA 0.000 [facility] x10(3)/[facility] LABORATORY Specimen Anatomical Collection Method Collection Time Receive d Time (Source) Location / / Volume Laterality Blood specimen 01/30/2019 6:05 AM 019 6:26 (specimen) EDT AM EDT Resulting Agency Comment Spec In Lab Edenilson Rosales MD HEMATOLOGY ORDERABLES Performing Organization Address City/State/[place] [address] (ABNORMAL) Hepatic Function Panel (01/30/2019 6:05 AM EDT) P athologist Signature Total Protein 6.8 6.1 - 8.0 [facility] gm/dL [facility] Albumin 3.8 3.2 - 5.2 [facility] gm/dL [facility] AST 73 (H) 0 - 30 [facility] unit/L [facility] ALT 128 (H) 0 - 30 [facility] unit/L [facility] Alk Phos 235 (H) 40 - 104 [facility] unit/L [facility] Total 6.8 (H) 0.2 - 1.3 [facility] Bilirubin mg/dL [facility] Bili, Direct 5.7 (H) 0.0 - 0.3 [facility] mg/dL [facility] Specimen Anatomical Collection Method Collection Time Receive d Time (Source) Location / / Volume Laterality Blood specimen 01/30/2019 6:05 AM 019 6:26 (specimen) EDT AM EDT Resulting Agency Comment Spec In Lab Edenilson Rosales MD CHEMISTRY ORDERABLES Performing Organization Address City/State/[place] [address] Hepatitis C RNA, quantitative, PCR (01/30/2019 6:05 AM EDT) Component Value Ref Test Analysis Performed At [facility] Range Method Time Signature HCV Viral <12 IU/mL [facility] LAB[facility]ATORY HCV Viral Result: <12 IU/mL(Target Not Detected) [facility] Indication for Study: Hepatitis C Infection [facility] Analysis: The [employer] RealTime HCV assay is an in vitro reverse dragsaw operator LABORATORY polymerase chain reaction (RT-PCR)for the quantitation of hepatitis C viral (HCV) RNA in human serum or plasma (EDTA) from HCV-infected indivi duals. Sample: plasma (0.7 mL minimum volume) Method: [employer] RealTime HCV Assay Linear Range: 12 IU/mL - 100,000,000IU/mL Note: The [employer] RealTime HC V Assay has been approved by the U.S. Food and Drug Administration. Comment: [VERIFIED DATE]02.01.19 Verified By:Renay Caceres (Electronic Signature) Specimen Anatomical Collection Method Collection Time Receive d Time (Source) Location / / Volume Laterality Blood specimen 01/30/2019 6:05 AM 019 (specimen) EDT 11:41 AM EDT Resulting Agency Comment Spec In Lab Edenilson Rosales MD IMMUNOLOGY ORDERABLES Performing Organization Address City/[facility]/[place] [address] Blood culture (01/30/2019 6:05 AM EDT) Patholo gist Method Time Signature Blood Culture No growth JOSÉ LUIS APURVA at 5 days. [facility] Specimen Anatomical Collection Method Collection Time Receive d Time (Source) Location / / Volume Laterality Blood specimen STRUCTURE OF LEFT 01/30/2019 6:05 AM 7:21 (specimen) HAND / Unknown EDT AM EDT Resulting Agency Comment Spec In Lab Edenilson Rosales MD MICROBIOLOGY - BLOOD ORDERAB LES Performing Organization Address [facility] [place] [address] (ABNORMAL) APTT (01/30/2019 6:05 AM EDT) P athologist Signature PTT 38 (H) 25 - 37 sec [facility] Comment: The PTT is NOT appropriate for heparin m onitoring. Use the Anti-Xa level for heparin monitoring (HEP UFH) or LMWH mon itoring (HEP LMW). A PTT less than 37 seconds generally indicates adequate hem ostasis. Specimen Anatomical Collection Method Collection Time Receive d Time (Source) Location / / Volume Laterality Blood specimen 01/30/2019 6:05 AM 019 6:26 (specimen) EDT AM EDT Resulting Agency Comment Spec In Lab Edenilson Rosales MD HEMATOLOGY ORDERABLES Performing Organization Address City/[facility]/[place] [address] (ABNORMAL) Prothrombin Time (01/30/2019 6:05 AM EDT) P athologist Signature PT 12.6 (H) 9.4 - 12.5 [facility] LABORATORY INR 1.1 [facility] Comment: An INR <2.0 indicates adequate procoagul ant activity for hemostasis in most patients without underlying bleeding dis orders, though the INR may not adequately reflect hemostatic capacity i n patients with liver disease and synthetic impairment. The recommended ta rget INR range for therapeutic anticoagulation is 2.0 ? 3.0 for most applications, though lower and higher ranges may be appropriate depending on c linical circumstances. Specimen Anatomical Collection Method Collection Time Receive d Time (Source) Location / / Volume Laterality Blood specimen 01/30/2019 6:05 AM 019 6:26 (specimen) EDT AM EDT Resulting Agency Comment Spec In Lab Edenilson Rosales MD HEMATOLOGY ORDERABLES Performing Organization Address City/[facility]/ZIP Code Phon e Number [address] (ABNORMAL) Phosphorus (01/30/2019 6:05 AM EDT) P athologist Signature Phosphorus 2.4 (L) 2.5 - 4.5 [facility] mg/dL [facility] Specimen Anatomical Collection Method Collection Time Receive d Time (Source) Location / / Volume Laterality Blood specimen 01/30/2019 6:05 AM 019 6:26 (specimen) EDT AM EDT Resulting Agency Comment Spec In Lab Edenilson Rosales MD CHEMISTRY ORDERABLES Performing Organization Address City/[facility]/[place] [address] Magnesium (01/30/2019 6:05 AM EDT) P athologist Signature Magnesium 0.73 0.69 - 1.07 JOSÉ LUIS APURVA mmol/L [facility] Specimen Anatomical Collection Method Collection Time Receive d Time (Source) Location / / Volume Laterality Blood specimen 01/30/2019 6:05 AM 019 6:26 (specimen) EDT AM EDT Resulting Agency Comment Spec In Lab Edenilson Rosales MD CHEMISTRY ORDERABLES Performing Organization Address City/[facility]/ZIP [facility] [place] [address] (ABNORMAL) Basic Metabolic Panel (non-fasting) (01/30/2019 6:05 AM EDT) P athologist Signature Glucose Lvl 70 65 - 199 [facility] mg/dL [facility] Comment: Diabetes: >=200 mg/dL plus symp toms BUN 6 (L) 8 - 18 mg/dL [facility] Creatinine 0.63 (L) 0.70 - 1.20 mg/dL [facility] Sodium 141 135 - 145 mmol/L [facility] Potassium 3.5 3.5 - 5.0 mmol/L [facility] Comment: Please note: ??Patients with WBC >100,00 0 may have falsely elevated Potassium levels. ??For accurate Potassium quantif ication in these patients send serum separator tube (gold top) for subsequent determinations. ??Contact the Clinical Chemistry Laboratory if there are any qu estions. Chloride 104 98 - 107 mmol/L [facility] CO2 23 22 - 31 mmol/L [facility] Anion Gap 14 5 - 15 mmol/L [facility] Calcium 8.4 (L) 8.5 - 10.5 mg/dL [facility] Estimated GFR 121 >=60 mL/min/1.73 m?? [facility] Comment: The eGFR was calculated using the CKD-EP I equation. As with all creatinine based estimates of kidney function, eGFR values calculated with the CKD-EPI equation are not accurate in patients wi th acute kidney failure, extremes of body mass or the acutely ill. [email or web address]/[facility] [place] eGFR 140 >=60 mL/min/1.73 m?? [facility] Comment: The eGFR was calculated using the CKD-EP I equation. As with all creatinine based estimates of kidney function, eGFR values calculated with the CKD-EPI equation are not accurate in patients wi th acute kidney failure, extremes of body mass or the acutely ill. [email or web address]/[facility] [place] [place] Specimen Anatomical Collection Method Collection Time Receive d Time (Source) Location / / Volume Laterality Blood specimen 01/30/2019 6:05 AM 019 6:26 (specimen) EDT AM EDT Resulting Agency Comment Spec In Lab Edenilson Rosales MD CHEMISTRY ORDERABLES Performing Organization Address City/State/[place] [address] documented in this encounter Visit Diagnoses Diagnosis Choledocholithiasis - Primary Calculus of bile duct without mention of cholecystitis or obstruction Cholangitis documented in this encounter Admitting Diagnoses Diagnosis Choledocholithiasis Calculus of bile duct without mention of cholecystitis or obstruction documented in this encounter Administered Medications Inactive Administered Medications - up to 3 most recent administrations Medication Order MAR Action Action Date Dose Rate Site acetaminophen (TYLENOL) tablet 650 Given 02/01/2019 6:55 PM EDT 650 mg mg 650 mg, Oral, EVERY 6 HOURS PRN, Starting on Wed01/31/19 at 1557, Until Wed02/02/19 at 1529, Pain, Maximum dose of acetaminophen is 4000 mg from all sources in 24 hours., Routine Given 02/01/2019 11:27 AM EDT 650 mg calcium carbonate (Tums) chewable tablet 500 Given 5:15 AM EDT 500 mg mg 500 mg, Oral, 3 TIMES DAILY PRN, Starting on Wed01/31/19 at 0504, Until Wed02/02/19 at 1529, Heartburn, STAT dexamethasone (DECADRON) injection 8 mg Given 01/31/2019 5:15 AM EDT 8 mg 8 mg, Intravenous, EVERY 6 HOURS SCHEDULED, First dose on Wed01/30/19 at 1300, Until Discontinued, Routine Given 01/30/2019 6:14 PM EDT 8 mg Given 01/30/2019 12:31 PM EDT 8 mg famotidine (PEPCID) tablet 20 mg Given 01/31/2019 10:44 AM EDT 20 mg 20 mg, Oral, ONCE, 1 dose, On Wed01/31/19 at 1045, STAT gabapentin (NEURONTIN) capsule 300 mg Given 01/31/2019 2:52 PM EDT 300 mg 300 mg, Oral, 3 TIMES DAILY, First dose on Wed01/30/19 at 0900, Until Discontinued, Routine Given 01/31/2019 8:39 AM EDT 300 mg Given 01/30/2019 8:50 PM EDT 300 mg gabapentin (NEURONTIN) capsule 300 mg Given 02/02/2019 5:14 AM EDT 300 mg 300 mg, Oral, EVERY 8 HOURS SCHEDULED, First dose (after last modification) on Wed01/31/19 at 2200, Until Discontinued, Routine Given 02/01/2019 9:09 PM EDT 300 mg Given 02/01/2019 1:27 PM EDT 300 mg HYDROmorphone (DILAUDID) injection 0.4-0.6 Given 02/01/2019 11:38 AM EDT 0.4 mg mg 0.4-0.6 mg, Intravenous, EVERY 5 MIN PRN, Starting on Wed02/01/19 at 1021, Until Wed02/01/19 at 1147, Pain, Give 0.4 mg every 5 minutes PRN for mild to moderate pain (1-5) Give 0.6 mg every 5 minutes PRN for moderate to severe pain (6-10). Hold for respiratory rate less than 10 per minute. Maximum dose 4 mg over one hour. If multiple pain medications are ordered, start with hydromorphone or morphine and use fentanyl for breakthrough pain., PACU Recovery, Routine Given 02/01/2019 11:23 AM EDT 0.2 mg Given 02/01/2019 11:18 AM EDT 0.6 mg HYDROmorphone (DILAUDID) injection 0.5 m g Given 01/30/2019 5:25 AM EDT 0.5 mg 0.5 mg, Intravenous, EVERY 4 HOURS PRN, Starting on Wed01/30/19 at 0452, Until Wed01/30/19 at 0638, Pain HYDROmorphone (DILAUDID) injection 0.6 m g Given 01/31/2019 2:52 PM EDT 0.6 mg 0.6 mg, Intravenous, EVERY 3 HOURS PRN, Starting on Wed01/30/19 at 0645, Until Wed01/31/19 at 1557, Pain Given 01/31/2019 4:27 AM EDT 0.6 mg HYDROmorphone (DILAUDID) tablet 2 mg Given 02/01/2019 11:11 AM EDT 2 mg 2 mg, Oral, EVERY 4 HOURS PRN, Starting on Wed01/31/19 at 1558, Until Wed02/01/19 at 1306, Moderate-severe pain (6/10 or higher) that is not relieved with Tylenol, Routine Given 02/01/2019 2:38 AM EDT 2 mg Given 01/31/2019 8:06 PM EDT 2 mg hydrOXYzine (ATARAX) tablet 50 mg Given 02/01/2019 12:11 PM EDT 50 mg 50 mg, Oral, EVERY 8 HOURS PRN, Starting on Wed01/30/19 at 0451, Until Wed02/02/19 at 1529, Itching, Routine Given 01/30/2019 8:51 PM EDT 50 mg indomethacin (INDOCIN) suppository 100 m g Given 01/30/2019 12:03 PM EDT 100 mg 100 mg, Rectal, ONCE, 1 dose, On Wed01/30/19 at 1230, Routine ketorolac (TORADOL) injection 30 mg Given 02/01/2019 1:21 PM EDT 30 mg 30 mg, Intravenous, ONCE, 1 dose, On Wed02/01/19 at 1330, STAT ketorolac (TORADOL) injection 30 mg Given 02/02/2019 7:40 AM EDT 30 mg 30 mg, Intravenous, EVERY 6 HOURS, 5 doses, First dose on Wed02/01/19 at 2000, Last dose on Wed02/02/19 at 2000, Routine Given 02/02/2019 1:05 AM EDT 30 mg Given 02/01/2019 8:15 PM EDT 30 mg loperamide (IMODIUM) capsule 2 mg 2 mg, Oral, 4 TIMES DAILY PRN, Starting on Wed01/31/19 at 1543, Until Wed02/02/19 at 1529, Diarrhea, Do not exceed 16 mg/day., Routine melatonin tablet 6 mg Given 01/30/2019 8:50 PM EDT 6 mg 6 mg, Oral, ONCE, 1 dose, On Wed01/30/19 at 2030, Routine melatonin tablet 6 mg Given 02/01/2019 8:15 PM EDT 6 mg 6 mg, Oral, NIGHTLY, 3 doses, First dose (after last reorder) on Wed01/31/19 at 2100, Last dose on Wed02/02/19 at 2100, Routine Given 01/31/2019 8:06 PM EDT 6 mg methadone (Dolophine) (10 mg/mL) oral liquid Given 8:37 AM EDT 105 mg 105 mg 105 mg, Oral, ONCE, 1 dose, On Wed01/30/19 at 0900, STAT methadone (Dolophine) (10 mg/mL) oral liquid Given 8:40 AM EDT 105 mg 105 mg 105 mg, Oral, DAILY, First dose on Wed01/31/19 at 0900, Until Discontinued, Liquid methadone should be used to avoid diversion, and a mouth check should be performed after each dose., Routine, Name of patient's Methadone clinic? [facility] phone: , Date last Methadone dose was given at the Outpatient Clinic? 01/29/2019, Dose of Methadone provided at the clinic? 105 mg daily methadone (Dolophine) (10 mg/mL) oral liquid Given 5:15 AM EDT 105 mg 105 mg 105 mg, Oral, EVERY MORNING, First dose (after last modification) on Wed02/01/19 at 0600, Until Discontinued, Liquid methadone should be used to avoid diversion, and a mouth check should be performed after each dose., Routine, Name of patient's Methadone clinic? [facility] phone: , Date last Methadone dose was given at the Outpatient Clinic? 01/29/2019, Dose of Methadone provided at the clinic? 105 mg daily Given 02/01/2019 5:11 AM EDT 105 mg midazolam (PF) (VERSED) injection 0.5 mg Given 02/01/2019 11:30 AM EDT 0.5 mg 0.5 mg, Intravenous, ONCE PRN, 1 dose, Starting on Wed02/01/19 at 1126, Until Wed02/01/19 at 1130, Sleep, Routine morphine 4 mg/mL injection 4 mg Given 02/01/2019 1:21 PM EDT 4 mg 4 mg, Intravenous, ONCE, 1 dose, On Wed02/01/19 at 1330, STAT morphine 4 mg/mL injection 4 mg Given 02/01/2019 2:16 PM EDT 4 mg 4 mg, Intravenous, ONCE, 1 dose, On Wed02/01/19 at 1430, STAT morphine 4 mg/mL injection 4-8 mg Given 02/02/2019 2:32 AM EDT 4 mg 4-8 mg, Intravenous, EVERY 4 HOURS PRN, Starting on Wed02/01/19 at 1409, Until Negin 02/02/19 at 1529, Severe pain not relieved with oral medications, Try 4 mg first. If pain not relieved within 15 minutes, then give the additional 4 mg., Routine Given 02/01/2019 6:55 PM EDT 4 mg morphine oral solution (2 mg/mL) oral liquid Given 11:43 AM EDT 10 mg 10 mg 10 mg, Oral, EVERY 4 HOURS PRN, Starting on Wed02/01/19 at 1315, Until Negin 02/02/19 at 1529, Pain, Moderate-severe pain (6/10 or higher), Routine Given 02/02/2019 7:40 AM EDT 10 mg Given 02/01/2019 11:37 PM EDT 10 mg mupirocin (BACTROBAN) 2 % ointment 1 eac h Given 02/02/2019 11:48 AM EDT 1 each 1 each, Topical (Top), 3 TIMES DAILY, First dose on Wed02/02/19 at 1130, Until Discontinued, Apply to umbilical incision and surrounding erythematous skin ondansetron (ZOFRAN) injection 4-8 mg Given 01/30/2019 12:31 PM EDT 8 mg 4-8 mg, Intravenous, EVERY 8 HOURS PRN, Starting on Wed01/30/19 at 0452, Until Negin 02/02/19 at 1529, Nausea, Start with 4mg and if ineffective in 30 minutes, give an additional 4mg If multiple antiemetics are ordered, give ondansetron first. ondansetron (ZOFRAN) tablet 4-8 mg Given 01/31/2019 5:42 PM EDT 4 mg 4-8 mg, Oral, EVERY 8 HOURS PRN, Starting on Wed01/30/19 at 0452, Until Negin 02/02/19 at 1529, Nausea, Vomiting, If multiple antiemetics are ordered, use ondansetron first. PO Preferred. If patient unable to take PO, may give IV if ordered. Start with 4mg and if ineffective in 45 minutes, give an additional 4mg. If unable to take PO, may give IV., Routine pantoprazole (PROTONIX) tablet 40 mg Given 02/02/2019 10:07 AM EDT 40 mg 40 mg, Oral, DAILY, First dose on Wed01/31/19 at 1045, Until Discontinued Given 02/01/2019 9:00 AM EDT 40 mg Given 01/31/2019 2:16 PM EDT 40 mg piperacillin-tazobactam (ZOSYN) New Bag 02/02/2019 5:19 AM 3.375 g 12.5 mL/hr 3.375 g vial attach to sodium EDT chloride 0.9% 50 mL Mini-Bag Plus 3.375 g, Intravenous, EVERY 8 HOURS, First dose on Wed01/30/19 at 1315, Until Discontinued, Administer over 4 Hours, Warning Vesicant/Irritant Medication Do not administer or Y-site with lactated ringers., Indication for (Active or Suspected): GI/Intra-abdominal New Bag 02/01/2019 9:12 PM EDT 3.375 g 12.5 mL/hr New Bag 02/01/2019 1:28 PM EDT 3.375 g 12.5 mL/hr promethazine (PHENERGAN) injection 12.5 mg Given 02/01/2019 11:16 AM EDT 6.25 mg 12.5 mg, Intravenous, EVERY 30 MIN PRN, 2 doses, Starting on Wed02/01/19 at 1021, Until Wed02/01/19 at 1147, Nausea, VESICANT - Dilute with a minimum of 10 mL saline. LARGE VEIN only. Inject over 10 minutes into the farthest port of a running IV infusion. Remain with the patient and STOP infusion immediately if patient reports burning. Avoid extravasation. If multiple antiemetics are ordered, use ondansetron first and if ineffective use prochlorperazine second and if ineffective use promethazine., PACU Recovery, Routine sodium chloride 0.9 % flush 5 mL Given 02/02/2019 10:07 AM EDT 5 mLs 5 mL, Intravenous, 2 TIMES DAILY, First dose on Wed01/30/19 at 0900, Until Discontinued, Routine Given 02/01/2019 9:00 PM EDT 5 mLs Given 01/31/2019 8:07 PM EDT 5 mLs sodium chloride 0.9% infusion New Bag 02/01/2019 4:57 AM EDT 1,000 mLs 100 mL/hr 1,000 mL, at 100 mL/hr, Intravenous, CONTINUOUS, Starting on Wed01/30/19 at 0515, Until Wed02/01/19 at 1536 New Bag 01/31/2019 10:44 AM EDT 1,000 mLs 100 mL/hr New Bag 01/31/2019 12:28 AM EDT 1,000 mLs 100 mL/hr sulfamethoxazole-trimethoprim (BACTRIM DS) Given 02/02 11:48 AM EDT 1 tablet 800-160 mg per tablet 1 tablet 1 tablet, Oral, EVERY 12 HOURS SCHEDULED (2 times per day), First dose on Wed02/02/19 at 1100, Until Discontinued, STAT, Indication for (Active or Suspected): Skin/Skin Structure documented in this encounter Active and Recently Administered Medications Times are shown in EDT. Scheduled Medication Order 01/31/2019 02/01/2019 02/02/2019 dexamethasone (DECADRON) injection 8 mg (CANCELED) 051 5 (Given - Provider: Nelly Villanueva, MINDA) 8 mg, Intravenous, EVERY 6 HOURS SCHEDUL ED, First dose on Wed01/30/19 at 1300, Until Discontinued, Routine famotidine (PEPCID) tablet 20 mg (COMPLETED) 1044 (Giv en - Provider: Emerald Garcia RN) 20 mg, Oral, ONCE, 1 dose, Wed01/31/19 at 1045, STAT gabapentin (NEURONTIN) capsule 300 mg (CANCELED) 0839 (Given - Provider: Emerald Garcia RN)1452 (Given - Provider: Emerald Garcia, MINDA) 300 mg, Oral, 3 TIMES DAILY, First dose on Wed01/30/19 at 0900, Until Discontinued, Routine gabapentin (NEURONTIN) capsule 300 mg 2131 (Given - Pr ovider: Angy Pritchett, MINDA) 0511 (Given - Provider: Angy Pritchett , MINDA)0734 (NOV Hold - Provider: Admin Adt - Reason: Transfer to a Procedural area)1244 (NOV Unhold - Provider: Admin Adt)1327 (Given - Provider: Tere Sen RN) 0514 (Given - Provider: Peggy Hernandez RN) 300 mg, Oral, EVERY 8 HOURS SCHEDULED, F irst dose on Wed01/31/19 at 2200, Until Discontinued, Routine 2108 (Given - Provider: Peggy Hernandez RN) ketorolac (TORADOL) injection 30 mg (COMPLETED) 132 (Given - Provider: Tere Sen, MINDA) 30 mg, Intravenous, ONCE, 1 dose, Wed02/01/19 at 1330, STAT ketorolac (TORADOL) injection 30 mg 2014 (Given - Provider: Peggy Hernandez RN) 0105 (Given - Provider: Peggy Hernandez RN)0740 (Given - Provider: Tere Sen, MINDA) 30 mg, Intravenous, EVERY 6 HOURS, 5 dos es, First dose on Wed02/01/19 at 2000, Last dose on Wed02/02/19 at 2000, Routine melatonin tablet 6 mg 2005 (Given - Provider: Angy lee RN) 0734 (NOV Hold - Provider: Admin Adt - Reason: Transfer to a Procedural area)1244 (NOV Unhold - Provider: Admin Adt)2014 (Given - Provider: Peggy Hernandez RN) 6 mg, Oral, NIGHTLY, 3 doses, First dose on Wed01/31/19 at 2100, Last dose on Wed02/02/19 at 2100, Routine methadone (Dolophine) (10 mg/mL) oral liquid 105 mg (C ANCELED) 0840 (Given - Provider: Emerald Garcia RN) 105 mg, Oral, DAILY, First dose on Wed at 0900, Until Discontinued, Liquid methadone should be used to avoid diversion, and a mouth check should be performed after each dose., Routine methadone (Dolophine) (10 mg/mL) oral liquid 105 mg 0511 (Given - Provider: Angy Pritchett RN)0734 (NOV Hold - Provider: Admin Adt - Reason: Transfer to a Procedural area)1244 (NOV Unhold - Provider: Admin Adt) 0515 (Given - Provider: Peggy Hernandez RN) 105 mg, Oral, EVERY MORNING, First dose on Wed02/01/19 at 0600, Until Discontinued, Liquid methadone should be used to avoid diversion, and a mouth check should be performed after each dose., Routine morphine 4 mg/mL injection 4 mg (COMPLETED) 132 (Given - Provider: Tere Sen RN) 4 mg, Intravenous, ONCE, 1 dose, Wed02/01/19 at 1330, STAT morphine 4 mg/mL injection 4 mg (COMPLETED) 1416 (Given - Provider: Whitney Amaya, MINDA) 4 mg, Intravenous, ONCE, 1 dose, Wed02/01/19 at 1430, STAT mupirocin (BACTROBAN) 2 % ointment 1 each 1148 (Given - Provider: Dilma Newsome, RN) 1 each, Topical (Top), 3 TIMES DAILY, Fi rst dose on Wed02/02/19 at 1130, Apply to umbilical incision and surrounding erythematous skin pantoprazole (PROTONIX) tablet 40 mg 1416 (Given - Pro vider: Emerald Garcia RN) 0734 (NOV Hold - Provider: Admin Adt - R maryellen: Transfer to a Procedural area)0900 (Given - Provider: Tere Sen, MINDA)1244 (NOV Unhold - Provider: Admin Adt) 1007 (Given - Provider: Tere cano RN) 40 mg, Oral, DAILY, First dose on Wed01/31/19 at 1045, Until Dis continued piperacillin-tazobactam (ZOSYN) 3.375 g vial attach to sodium chloride 0.9% 50 mL Mini-Bag Plus (CANCELED) 0056 (Stopped - Provider: Nelly rivers RN)0427 (New Bag - Provider: Nelly Villanueva RN)0827 (Stopped - Provider: Emerald Garcia RN)1326 (New Bag - Provider: Tao Parra RN)1726 (Stopped - Provider: Emerald Garcia RN) 0131 (Stopped - Provider: Angy Pritchett, MINDA)0512 (New Bag - Provider: Angy Pritchett, MINDA)0734 (NOV Hold - Provider: Admin Adt - Reason: Transfer to a Procedural area)0912 (Stopped - Provider: Tere Sen RN) 0112 (Stopped - Provider: Peggy Hernandez RN)0519 (New Bag - Provider: Peggy Hernandez RN)0919 (Stopped - Provider: Tere Sen, MINDA) 3.375 g, Intravenous, EVERY 8 HOURS, Fir st dose on Wed01/30/19 at 1315, Until Discontinued, Administer over 4 Hours, Warning Vesicant/Irritant Medication Do not administer or Y-site with lactated 2131 (New Bag - Provider: Angy Pritchett, MINDA) 1244 (MAR Unhold - Provider: Admin Adt)1 328 (New Bag - Provider: Tere Sen, MINDA)1728 (Stopped - Provider: Tere Sen, MINDA)2112 (New Bag - Provider: Peggy Hernandez RN) ringers., Indication for (Active or Suspected): GI/Intra-abdomin al sodium chloride 0.9 % flush 5 mL 0842 (Given - Provide r: Emerald Garcia RN)2007 (Given - Provider: Angy Pritchett, MINDA) 0734 (MAR Hold - Provider: Admin Adt - Reason: Transfer to a Procedural area)0900 (Automatically Held - Provider: Admin Adt)1244 (MAR Unhold - Provider: Admin Adt)2100 (Given - Provider: Peggy Hernandez RN) 1007 (Given - Provider: Tere cano RN) 5 mL, Intravenous, 2 TIMES DAILY, First dose on Wed01/30/19 at 0900, Until Discontinued, Routine sulfamethoxazole-trimethoprim (BACTRIM DS) 800-160 mg per tablet 1 tablet 1148 (Given - Provider: Dilma Newsome RN) 1 tablet, Oral, EVERY 12 HOURS SCHEDULED (2 times per day), First dose on Wed02/02/19 at 1100, Until Discontinued, STAT Continuous Medication Order 01/31/2019 02/01/2019 02/02/2019 sodium chloride 0.9% infusion (CANCELED) 0028 (New Bag - Provider: Nelly Villanueva RN)1044 (New Bag - Provider: Emerald Garcia RN) 0457 (New Bag - Provider: Angy Pritchett, MINDA)0734 (MAR Hold - Provider: Admin Adt - Reason: Transfer to a Procedural area)1131 (MAR Unhold - Provider: Stacy Whyte RN) 1,000 mL, at 100 mL/hr, Intravenous, CON TINUOUS, Starting Wed01/30/19 at 0515, Until Wed02/01/19 at 1536 PRN Medication Order 01/31/2019 02/01/2019 02/02/2019 acetaminophen (TYLENOL) tablet 650 mg 07 34 (NOV Hold - Provider: Admin Adt - Reason: Transfer to a Procedural area)1044 (NOV Unhold - Provider: Iraida Townsend RN)1127 (Given - Provider: Stacy Whyte, MINDA)1855 (Given - Provider: Tere Sen, MINDA) 650 mg, Oral, EVERY 6 HOURS PRN, Startin g Wed01/31/19 at 1557, Until Negin 02/02/19 at 1529, Pain, Maximum dose of acetaminophen is 4000 mg from all sources in 24 hours., Routine BUpivacaine-EPINEPHrine 0.25 %-1:200,000 injection (CANCELED ) 0821 (Given - Provider: Jorden Hogan MD) ONCE PRN, Starting Wed02/01/19 at 0821, Until Negin 02/02/19 at 1529, Intra- Operative (Intra-Procedure), Routine calcium carbonate (Tums) chewable tablet 500 mg 0515 ( Given - Provider: Nelly Villauneva RN) 0734 (NOV Hold - Provider: Admin Adt - R maryellen: Transfer to a Procedural area)1244 (NOV Unhold - Provider: Admin Adt) 500 mg, Oral, 3 TIMES DAILY PRN, Startin g Wed01/31/19 at 0504, Until Negin 02/02/19 at 1529, Heartburn, STAT HYDROmorphone (DILAUDID) injection 0.4-0.6 mg (CANCELED) 1035 (Given - Provider: Iriada Townsend RN)1041 (Given - Provider: Iraida Townsend RN)1047 (Given - Provider: Iraida Townsend RN)1054 (Given - Provider: Iraida Townsend RN)1104 (Given - Provider: Iraida Townsend RN) 0.4-0.6 mg, Intravenous, EVERY 5 MIN PRN , Starting Wed02/01/19 at 1021, Until Wed02/01/19 at 1147, Pain, Give 0.4 mg every 5 minutes PRN for mild to moderate pain (1-5) Give 0.6 mg every 5 minutes PRN f 1111 (Giv en - Provider: Iraida Townsend RN)1118 (Given - Provider: Iraida Townsend RN)1123 (Given - Provider: Iraida Townsend RN)1138 (Given - Provider: Stacy Whyte RN) or moderate to severe pain (6-10). Hold for respiratory rate less than 10 per minute. Maximum dose 4 mg over one hour. If multiple pain medications are ordered, start with hydromorphone or morphine and use fentanyl for breakthrough pain., PACU Recovery, Routine HYDROmorphone (DILAUDID) injection 0.6 mg (CANCELED) 0 427 (Given - Provider: Nelly Villanueva RN)1452 (Given - Provider: Emerald Garcia RN) 0.6 mg, Intravenous, EVERY 3 HOURS PRN, Starting Wed01/30/19 at 0645, Until Tu01/31/19 at 1557, Pain HYDROmorphone (DILAUDID) tablet 2 mg (CANCELED) 2005 ( Given - Provider: Angy Pritchett RN) 0238 (Given - Provider: Angy Pritchett RN)0734 (NOV Hold - Provider: Admin Adt - Reason: Transfer to a Procedural area)1044 (NOV Unhold - Provider: Iraida Townsend RN)1111 (Given - Provider: Iraida Townsend RN) 2 mg, Oral, EVERY 4 HOURS PRN, Starting 01/31/19 at 1558, Until Wed02/01/19 at 1306, Moderate-severe pain (6/10 or higher) that is not relieved with Tylenol, Routine hydrOXYzine (ATARAX) tablet 50 mg 0734 ( NOV Hold - Provider: Admin Adt - Reason: Transfer to a Procedural area)1044 (NOV Unhold - Provider: Iraida Townsend RN)1211 (Given - Provider: Iraida Townsend RN) 50 mg, Oral, EVERY 8 HOURS PRN, Starting Wed01/30/19 at 0451, Until Negin 02/02/19 at 1529, Itching, Routine iohexol (OMNIPAQUE) 300 mg/mL solution (CANCELED) 0944 (Given - Provider: Jorden Hogan MD) ONCE PRN, Starting Wed02/01/19 at 0944, Until Negin 02/02/19 at 1529, Intra- Operative (Intra-Procedure), Routine lidocaine (XYLOCAINE) 10 mg/mL (1 %) injection 3 mg 0734 (NOV Hold - Provider: Admin Adt - Reason: Transfer to a Procedural area)1244 (NOV Unhold - Provider: Admin Adt) 3 mg (0.3 mL), Subcutaneous, ONCE PRN, 1 dose, Starting 01/30/19 at 0452, Until Negin 02/02/19 at 1529, for discomfort with PIV insertion, Routine lidocaine (XYLOCAINE) 10 mg/mL (1 %) injection (CANCELED) 0821 (Canceled Entry - Provider: Jorden Hogan MD)1011 (Given - Provider: Jorden Hogan MD) ONCE PRN, Starting Wed02/01/19 at 0821, Until Negin 02/02/19 at 1529, Intra- Operative (Intra-Procedure), Routine loperamide (IMODIUM) capsule 2 mg 0734 ( NOV Hold - Provider: Admin Adt - Reason: Transfer to a Procedural area)1244 (NOV Unhold - Provider: Admin Adt) 2 mg, Oral, 4 TIMES DAILY PRN, Starting Tu01/31/19 at 1543, Until Negin 02/02/19 at 1529, Diarrhea, Do not exceed 16 mg/day., Routine midazolam (PF) (VERSED) injection 0.5 mg (COMPLETED) 1130 (Given - Provider: Stacy Whyte, MINDA) 0.5 mg, Intravenous, ONCE PRN, 1 dose, S tarting Wed02/01/19 at 1126, Until Wed02/01/19 at 1130, Sleep, Routine morphine 4 mg/mL injection 4-8 mg 1855 ( Given - Provider: Tere Sen, MINDA) 0232 (Given - Provider: Amandeep Patel) 4-8 mg, Intravenous, EVERY 4 HOURS PRN, Starting Wed02/01/19 at 1409, Until Negin 02/02/19 at 1529, Severe pain not relieved with oral medications, Try 4 mg first. If pain not relieved within 15 minutes, then give the additional 4 mg., Routine morphine oral solution (2 mg/mL) oral liquid 10 mg 1741 (Given - Provider: Tere Sen, MINDA)2337 (Given - Provider: Peggy Hernandez RN) 0740 (Given - Provider: Tere Sen RN)1143 (Given - Provider: Dilma Newsome RN) 10 mg, Oral, EVERY 4 HOURS PRN, Starting 02/01/19 at 1315, Until Negin 02/02/19 at 1529, Pain, Moderate-severe pain (6/10 or higher), Routine ondansetron (ZOFRAN) injection 4-8 mg(Linked Group 1) 1742 (See Alternative - Provider: Emerald Garcia RN) 0734 (MAR Hold - Provider: Admin Adt - R maryellen: Transfer to a Procedural area)1244 (MAR Unhold - Provider: Admin Adt) 4-8 mg, Intravenous, EVERY 8 HOURS PRN, Starting 01/30/19 at 0452, Until Negin 02/02/19 at 1529, Nausea, Start with 4mg and if ineffective in 30 minutes, give an additional 4mg If multiple antiemetics are ordered, give ondansetron first. ondansetron (ZOFRAN) tablet 4-8 mg(Linked Group 1) 174 2 (Given - Provider: Emerald Garcia RN) 0734 (MAR Hold - Provider: Admin Adt - R maryellen: Transfer to a Procedural area)1244 (MAR Unhold - Provider: Admin Adt) 4-8 mg, Oral, EVERY 8 HOURS PRN, Startin g 01/30/19 at 0452, Until Negin 02/02/19 at 1529, Nausea, Vomiting, If multiple antiemetics are ordered, use ondansetron first. PO Preferred. If patient unabl e to take PO, may give IV if ordered. St art with 4mg and if ineffective in 45 minutes, give an additional 4mg. If unable to take PO, may give IV., Routine promethazine (PHENERGAN) injection 12.5 mg (CANCELED) 1116 (Given - Provider: Iraida Townsend RN) 12.5 mg, Intravenous, EVERY 30 MIN PRN, 2 doses, Starting 02/01/19 at 1021, Until 02/01/19 at 1147, Nausea, VESICANT - Dilute with a minimum of 10 mL saline. LARGE VEIN only. Inject over 10 minute s into the farthest port of a running IV infusion. Remain with the patient and STOP infusion immediately if patient reports burning. Avoid extravasation. If multiple antiemetics are ordered, use onda nsetron first and if ineffective use pro chlorperazine second and if ineffective use promethazine., PACU Recovery, Routine sodium chloride 0.9 % flush 5-20 mL 0734 (NOV Hold - Provider: Admin Adt - Reason: Transfer to a Procedural area)1244 (NOV Unhold - Provider: Admin Adt) 5-20 mL, Intravenous, EVERY 1 MIN PRN, S tarting 01/30/19 at 0452, Until Negin 02/02/19 at 1529, flush, Flush pertains to all indwelling lines. Flush per protocol found in the job aid using the link provided on this medication record., Routine Linked Groups Order Group 1: ondansetron (ZOFRAN) tablet 4-8 mgJump to med 4-8 mg, Oral, EVERY 8 HOURS PRN, Startin g 01/30/19 at 0452, Until Negin 02/02/19 at 1529, Nausea, Vomiting
If multiple antiemetics are ordered, use ondansetron first. PO Preferred . If patient unable to take PO, may give IV if ordered. Start with 4mg and if ineffective in 45 minutes, give an additional 4mg. If unable to take PO, may give IV.
Routine Or ondansetron (ZOFRAN) injection 4-8 mgJump to med 4-8 mg, Intravenous, EVERY 8 HOURS PRN, Starting 01/30/19 at 0452, Until Negin 02/02/19 at 1529, Nausea
Start with 4mg and if ineffective in 30 minutes, give an additional 4mg If mu ltiple antiemetics are ordered, give ond ansetron first.
documented in this encounter Care Teams Adoption Services Manager Relationship Specialty Start Date End Date Linda Gunn APRN PCP - General Family Medicine 01/30/19 Vimal [facility] [place] [id number] documented as of this encounter
--- OUTSIDE RECORDS SUMMARY | 2022-06-12 06:20 | XMS_ITS | Encounter Summary ---
:1990 Author Organization [facility] [place] [address] Care Team Providers Name Role Phone Linda Gunn APRN Primary Care Provider Reason for Visit Auth/Cert Specialty Diagnoses / Procedures Referred By Contact Refer red To Contact Diagnoses Choledocholithiasis RUQ PAIN/ JAUNDICE Procedures EMERGENCY IPI Referral ID Status Reason Start Date Expiration Date Visits Requ ested Visits Authorized [id number] 1 1 Encounter Details Date Type Department Care Team Description 02/01/2019 Surgery Main Operating Room Jorden Hogan, LAPA ROSCOPIC Tegan Harrison MD CHOLECYSTECTOMY WITH [facility] CHOLANGIOGRAM (WRVU 11.47) [facility] [place] [address] [place] [address] [phone] Social History Tobacco Use Types Packs/Day Years Used Date Current Every Day Smoker Smokeless Tobacco: Never Used Alcohol Use Standard Drinks/Week Comments Not Currently 0 (1 standard drink = 0.6 oz pure alcoho l) Sex Assigned at Date Recorded Not on file documented as of this encounter Last Filed Vital Signs Vital Sign Reading Time Taken Comments Blood Pressure 137/85 02/01/2019 5:49 AM EDT Pulse 60 02/01/2019 5:49 AM EDT Temperature 36.7 ??C (98.1 ??F) 02/01/2019 5:49 AM EDT Respiratory Rate 18 02/01/2019 5:49 AM EDT Oxygen Saturation 99% 02/01/2019 5:49 AM EDT Inhaled Oxygen Concentration - - Weight 103.4 kg (228 lb) 01/30/2019 4:20 AM EDT Height 180.3 cm (5' 11) 01/30/2019 4:20 AM EDT Body Mass Index 31.8 01/30/2019 4:20 AM EDT documented in this encounter Discharge Summaries Melissa Vinson MD - 02/02/2019 1:29 PM EDT Discharge Summary Patient Name: Ina Orelalna Patient Age: 28 y.o. Language: Chadian Race: White Ethnicity: Not nor Admit date: [...] IV and oral pain medications. The p atkayode's pain improved after ERCP, and her bilirubin [...] 38.0 PLATELET 266 245 292 Recent Labs 02/02/1960502/01/1961901/31/19 035 NA 141 143 140 K 3.5 [...] 101.3 F. The number for questions is [phone] before 5 PM weekdays and [phone] after 5 PM and weekends. Pain Medication: [...] will be mailed to you. Please call [phone] to confirm date and time of your appointment if you do not receive your apointment in 3 weeks. No future appointments. Future Appointments and Orders Future Appointments and Orders Future Appointments Provider Department Dept Phone 03/03/2019 9:30 AM Christiane Aviles APRN General Surgery at [place] Arrive at: [facility] 4L [phone] Inpatient Provider Contact Information: For questions regarding this document or issues relating to this hospitalization on the Medical Service, please contact your inpatient physician through the [facility] Sheep Herder . Issues after hours and on weekends [...] 101.3 F. The number for questions is [phone] before 5 PM weekdays and [phone] after 5 PM and weekends. Pain Medication: [...] will be mailed to you. Please call [phone] to confirm date and time of your [...] spent >30 minutes (Day of Discharge Code 14327) involved in the final examination of the [...] packed up and discharged with patient. Que Cornell MSW - 02/02/2019 9:28 AM EDT RECONSTRUCTIVE SURGEON met with pt to discuss support network and transportation home at time of dc. Pt reports that her mother's best friend fortino menjivar, and pt BF will be picking her up today @ 12. Pt has identified otto as a consistent support in her life. Pt also connected with [facility] Program ([address] [place] [phone] ) for medication assisted treatment with methodone administration. Pt attends counseling services through [facility] [employer] ([address] [facility]- [phone]) Melissa Vinson MD - 02/01/2019 6:07 PM [...] 292 278 Last 3 Lytes Recent Labs 02/01/1961901/31/1935001/30/19 06 NA 143 140 141 K 3.6 4.2 3.5 CL 108* 106 104 CO2 24 23 23 BUN 6* 4* 6* CREATININE 0.80 0.70 0.63* Last 3 LFTs Recent Labs 02/01/1961901/31/1935001/30/19 06 AST 33* 78* 73* ALT 88* 124* 128* ALKPHOS 179* 244* 235* BILITOT 1.8* 5.2* 6.8* BILIDIR 1.0* 4.1* 5.7* Last Ca, Mg, Phos Recent Labs 02/01/1961901/30/19 06 CALCIUM 8.6 < > 8.4* PHOS -- -- 2.4* < > = values in this interval not displayed. Last 3 Coags Recent Labs 01/30/19604 PT 12.6* INR 1.1 PTT 38* FSBG [...] Care: Full Code Team Pager( Coverage 29/03): #[phone] PCP: Linda Gunn APRN [phone] Attestation: IPI Certification I certify that I [...] so much pain IV dilaudid given per MAR. PACU resident made aware, 0.5 mg versed [...] wbc, hgb, hct plt Recent Labs 01/31/19 03501/30/19 06 WBC 9.1 6.4 HGB 12.5 11.6* HCT 38.0 35.3* PLATELET 292 278 Last 3 Lytes Recent Labs 01/31/19 03501/30/19 0605 NA 140 141 K 4.2 3.5 CL 106 104 CO2 23 23 BUN 4* 6* CREATININE 0.70 0.63* Last 3 LFTs Recent Labs 01/31/19 03501/30/19 0605 AST 78* 73* ALT 124* 128* ALKPHOS 244* 235* BILITOT 5.2* 6.8* BILIDIR 4.1* 5.7* Last Ca, Mg, Phos Recent Labs 01/31/19 03501/30/19 06 CALCIUM 9.1 8.4* PHOS -- 2.4* Last [...] 01/30/19 0601/30/19 0721 BLOODCX No growth at 1 day. [...] Care: Full Code Team Pager( Coverage 29/03): #[phone] PCP: Linda Gunn, HEEL PAINTER [phone] Attestation: IPI Certification I certify that I am a D-H credentialed attending provider with admitting privileges and that the patient meets or has met medical necessity to require an inpatient IPI level of care meeting a minimum of two midnights or is on the [facility] inpatient only procedure list (status C) [...] 01/31/2019 Pertinent Endoscopic Procedures/Reports: ERCP 01/30/19: ?The associate professor of education film was normal. The esophagus was ?successfully [...] Dr. Owusu. Elías Lake MD Gastroenterology Fellow #[id number] Attending Addendum: I have seen and examined the patient with Dr. Lake. We reviewed the medical record and pertinent studies and imaging. My evaluation and physical examination confirms the above findings. The assessment and plan were formulated in discussion with me at the time of the encounter and I agree with them as documented. Francisco Owusu MD [facility] Gastroenterology Alexis Martinez RN [...] ordered Q3. Patient oriented to room, call OSCAR pham. RN will monitor patient. Romy Munoz RN [...] Electronically signed by: Yrn Alvarenga Gastroenterology Fellow [facility] Pager [phone] 01/30/2019 Edenilson Rosales - 01/30/2019 4:41 AM EDT Inpatient Hospital Medicine - Admission Note Problem List: Active Hospital Problems Diagnosis ??? Choledocholithiasis Resolved Hospital Problems No resolved problems to display. There are no active non-hospital problems to display for this patient. ID: 28 y.o. Female presents to [facility] with abdominal pain History [...] file Gets together: Not on file Attends hinduism service: Not on file Active member of [...] Miscellaneous Notes Consult Note - Bryce Franco, HEEL PAINTER - 02/02/2019 10:04 AM EDT BIT Evaluation Referral source: Nursing referral Reason for referral: Anxiety Disruptive behaviors Opioid Use Disorder Relevant history: Ms Orellana is a 28-year-old woman, mother of four, admitted with RUQ pain, nausea, and vomiting, now s/p ERCP. History of childhood trauma, IVDU currently in recovery with counseling and in Methadone assisted treatment at [facility]- current dose 105 mg daily. Ms Orellana [...] with Methadone assisted treatment and counseling at [facility]. She also reports being engaged with psychiatric services at [facility] for over 10 years. Ms Orellana reports being motivated to abstain from IVDU with ongoing Methadone assisted treatment and counseling at [facility] and psychiatric services at [facility]. Additional substance use treamtment and relapse prevention resources were given and placed in her discharge instructions. Assessment: Ms Orellana is a 28-year-old woman, mother of four, admitted with RUQ pain, nausea, and vomiting, now s/p ERCP. History of childhood trauma, IVDU currently in recovery with counseling and in Methadone assisted treatment at [facility]- current dose 105 mg daily. Reports being stable on current Methadone dosage, no acute safety concerns. Motivated to maintain abstinence from IVDU with ongoing Methadone assisted treatment and counseling at [facility] and psychiatric services at [facility]. Additional substance use treamtment and relapse prevention resources were given and placed in her discharge instructions. Interventions delivered: Motivational interviewing Supportive therapy Plan: 1. Patient plans to maintain abstinence from IVDU with ongoing Methadone assisted treatment and counseling at [facility] and psychiatric services at [facility]. Medication Assisted Treatment Plan (select yes if referral reason indicates AUD, OUD or PATRIA - other): Yes. Substance use of focus: Opioid Was patient already on a medication to treat OUD prior to admission? Yes. Prescribed buprenorphine, street buprenorphine, methadone, naltrexone Outpatient MAT continued - [contact made on 01/31/19 per primary team (date) with [facility] [place]/[phone]]. Discharge Planning Needs: Additional substance use treatment [...] General surgery to sign off. Please page [phone] with questions/concerns Chirag Mayers MD Surgery Resident [...] extending 1.5 inches down from umbilical incision,night TRAINING ASSISTANT notified. IV antibiotics infused as ordered. Pt [...] Outcome: Ongoing (Interventions Implemented as Appropriate) 02/01/19 0902/01/19 134 Coping Strategies Supportive Measures active listening utilized;relaxation techniques promoted;verbalization of feelings encouraged -- Safety Interventions Isolation Precautions -- standard precautions maintained Infection Prevention -- rest/sleep promoted Op Note - Jorden Hogan MD - 02/01/2019 10:07 AM EDT [facility] Operative Note Name: Ina Orellana : 1990 Date of surgery: 02/01/2019 Surgeon: Jorden Hogan MD medical assistant per diem: Chas Soni MD Preoperative dx: Ascending cholangitis [...] a combination of careful blunt dissection, suction rib cloth knitter technique, and judicious electrocautery; critical view of [...] from the abdomen. A 5 mm clip reel slitter was then used to place 2 clips [...] wbc, hgb, hct plt Recent Labs 02/01/19 0620 01/31/19 0351 01/30/19 0605 WBC 9.1 9.1 6.4 HGB 10.7* 12.5 11.6* HCT 32.9* 38.0 35.3* PLATELET 245 292 278 Last 3 Lytes Recent Labs 02/01/19 0620 [...] overnight. Pt A&Ox4. VSS on RA. C/o 8/10 aching/stabbing pain in RUQ. PRN dilaudid given [...] ERCP performed by Weston Dixon MD at [facility] END[facility] Social History: Social History Socioeconomic History [...] on phone: None Gets together: None Attends hinduism service: None Active member of club or [...] lap cholecystectomy tomorrow. Please keep NPO @ OK. Risks and benefits discussed with patientand she [...] IV 01/30 Labs: CBC: Recent Labs 01/31/19 03501/30/19 0605 WBC 9.1 6.4 HGB 12.5 11.6* PLATELET 292 278 Recent Labs 01/31/1935001/30/19 0605 IMMGRANPCT 0.30 0.20 NEUTROABS 8.14* 4.50 MCV 86.2 84.9 Chemistry: Recent Labs 01/31/1935001/30/19 0605 NA 140 141 K 4.2 3.5 CL 106 104 CO2 23 23 BUN 4* 6* CREATININE 0.70 0.63* GLUCOSE 217* 70 ANIONGAP 11 14 Recent Labs 01/31/19 03501/30/19 0605 CALCIUM 9.1 8.4* MAGNESIUM -- 0.73 PHOS -- 2.4* LFT's: Recent Labs 01/31/19351 01/27/19 0605 PROT 7.1 6.8 ALKPHOS 244* 235* BILITOT 5.2* 6.8* BILIDIR 4.1* 5.7* AST 78* 73* ALT 124* 128* Coags: Recent Labs 01/30/19 0605 PT 12.6* INR 1.1 PTT 38* Cardiac enzymes: No results for input(s): TROPONINT, CK, PROBNP in the last 168 hours. Endocrine: No results for input(s): TSH, CORTISOL in the last 7068 hours. Invalid input(s): [id number] Heme: No results for input(s): LDH, HAPTOGLOBIN, URICACID in the last 168 hours. No results for input(s): FERRITIN, IRON, TIBC, IRONSAT, SOLTRNRCPT in the last 168 hours.] ABG: ABG (Arterial Blood Gas) No results found for: PHART, PO2ART, ZEE6RGQ, GBQ0QUV Microbiology: Microbiology Results (Last 30 days) No [...] Code Status: full Jorden Randall 01/31/2019 Pager [phone] Initial Assessments - Stacy De Oliveira RN [...] file Other Pertinent/Service Specific Information: Referral to [facility] Health/Prescription Coverage: Primary Insurance: MEDICAID [place] Secondary Insurance: N/A Prescription Coverage: Yes Preferred Pharmacy: unknown Other: n/a Primary Care Provider: Linda Gunn APRN [phone] Patient/Caregiver Goals of Treatment: not discussed Potential Needs for Transition of Care: Rehab/SNF: Not indicated Home Health: Not indicated DME: None Dialysis: n/a Community Resources: n/a Transportation: patient to find friend/family, has [place] medicaid and came from other hospital via ambulance Other: n/a Anticipated Barriers to Discharge/Special Considerations: None identified. Referral to RECONSTRUCTIVE SURGEON due to hxIV drug use on methadone. [...] care planning. Stacy De Oliveira RN Pager: [phone] Plan of Care - Donita Fraser RN [...] ??? sodium chloride 0.9% 1,000 mL (01/30/19 2591) hydrOXYzine, sodium chloride 0.9 %, lidocaine, ondansetron [...] file Gets together: Not on file Attends hinduism service: Not on file Active member of [...] NEURO: moves all extremities LABS: Recent Labs 01/30/19604 WBC 6.4 HGB 11.6* HCT 35.3* PLATELET 278 Recent Labs 01/30/19604 NA 141 K 3.5 CL 104 CO2 23 BUN 6* CREATININE 0.63* Recent Labs 01/30/19604 ALBUMIN 3.8 AST 73* ALT 128* ALKPHOS 235* BILITOT 6.8* BILIDIR 5.7* Recent Labs 01/30/19604 INR 1.1 IMAGING: - Reviewd ENDOSCOPY: - [...] XR ERCP Imaging Storage Only Routine Once IN N (for Radiant use) for 1 Occurrenc [...] section. TYPE AND SCREEN Routine 02/01/2019 6:20 ([facility]/SABA) AM EDT HEPATIC FUNCTION PANEL Routine 02/01/2019 [...] procedure are in the results section. ERCP Routine 01/30/2019 11:09 Results for this [...] EDT) athologist Signature Neutrophils % 60.5 % [facility] Neutr Abs (ANC) 5.27 1.70 - [facility] 6.10 [facility] x10(3)/[facility] LABORATORY Lymphocytes % 33.9 % [facility] Lymphocytes Abs 3.0 0.9 - 3.2 [facility] x10(3)/[facility] LABORATORY Monocytes % 4.5 % [facility] Monocyte Abs 0.4 0.3 - 0.9 [facility] x10(3)/[facility] LABORATORY Eosinophils % 0.2 % [facility] Eosinophils Abs 0.0 0.0 - 0.4 [facility] x10(3)/[facility] LABORATORY Basophils % 0.6 % [facility] Basophils Abs 0.0 0.0 - 0.1 [facility] x10(3)/[facility] LABORATORY Immature Gran % 0.30 % [facility] Comment: Immature granulocytes(IG's)percentage an d absolute count will include metamyelocytes, myelocytes, and promyelo cytes. Blood smears from CBCs yielding IG's will be scanned manually for concor dance. If this scan disagrees with the automated IG or if promyelocytes are not ed, a manual differential will be performed. Jaz Gran Abs 0.03 0.00 - 0.04 x10(3)/[facility] Y [facility] LABORATORY Specimen Anatomical Collection Method Collection Time Receive d Time (Source) Location / / Volume Laterality Blood specimen 02/02/2019 6:06 AM 019 6:46 (specimen) EDT AM EDT Resulting Agency Comment Spec In Lab Chas Soni MD HEMATOLOGY ORDERABLES Performing Organization Address City/State/[place] [address] (ABNORMAL) Hemogram (02/02/2019 6:06 AM EDT) Analysis Performed At Patho logist Time Signature WBC 8.7 4.0 - 9.5 [facility] x[facility](3[facility] LABORATORY RBC 3.81 (L) 4.00 - [place] 5.21 [facility] x10(6)/[facility] LABORATORY Hemoglobin 10.7 (L) 11.7 - [place] 15.5 gm/dL [facility] LABORATORY Hematocrit 33.1 (L) 35.7 - [facility]VA 45.8 % [facility]ORATORY MCV 86.9 82.6 - [facility] 94.4 [facility] LABORATORY MCH 28.1 27.1 - [place] 32.0 pg [facility] LABORATORY MCHC 32.3 31.7 - [facility] 35.0 gm/dL [facility] Platelets 266 145 - 357 [facility] x10(3)/[facility] LABORATORY RDWSD 49.6 (H) 37.0 - [facility] APURVA 46.0 [facility] LABORATORY RDWCV 15.7 (H) 11.5 - [facility] APURVA 14.1 % [facility] LABORATORY MPV 11.1 7.6 - 12.9 [facility] nRBC % Auto 0.0 % [facility] nRBC Abs Auto 0.000 0.000 - [place] 0.000 [facility] x10(3)/[facility] LABORATORY Specimen Anatomical Collection Method Collection Time Receive d Time (Source) Location / / Volume Laterality Blood specimen 02/02/2019 6:06 AM 019 6:46 (specimen) EDT AM EDT Resulting Agency Comment Spec In Lab Chas Soni MD HEMATOLOGY ORDERABLES Performing Organization Address City/State/[place] [address] (ABNORMAL) Hepatic Function Panel (02/02/2019 6:06 AM EDT) athologist Signature Total Protein 6.2 6.1 - 8.0 [facility] gm/dL [facility] Albumin 3.5 3.2 - 5.2 [facility] gm/dL [facility] AST 30 0 - 30 [facility] unit/L [facility] ALT 71 (H) 0 - 30 [facility] APURVA unit/L [facility] Alk Phos 162 (H) 40 - 104 [facility] unit/L [facility] Total 1.4 (H) 0.2 - 1.3 [facility] Bilirubin mg/dL [facility] LABOR[facility]ORY Bili, Direct 0.8 (H) 0.0 - 0.3 [facility] mg/dL [facility] LAB[facility]ORY Specimen Anatomical Collection Method Collection Time Receive d Time (Source) Location / / Volume Laterality Blood specimen 02/02/2019 6:06 AM 019 6:46 (specimen) EDT AM EDT Resulting Agency Comment Spec In Lab Melissa Vinson MD CHEMISTRY ORDERABLES Performing Organization Address City/State/[place] [address] Basic Metabolic Panel (non-fasting) (02/02/2019 6:06 AM EDT) athologist [facility] Glucose Lvl 99 65 - 199 [facility] mg/dL [facility] Comment: Diabetes: >=200 mg/dL plus symp toms BUN 8 8 - 18 mg/dL [facility] Creatinine 0.70 0.70 - 1.20 mg/dL [facility] LABORATORY Sodium 141 135 - 145 mmol/L [facility] Potassium 3.5 3.5 - 5.0 mmol/L [facility] Comment: Please note: ??Patients with WBC >100,00 0 may have falsely elevated Potassium levels. ??For accurate Potassium quantif ication in these patients send serum separator tube (gold top) for subsequent determinations. ??Contact the Clinical Chemistry Laboratory if there are any qu estions. Chloride 102 98 - 107 mmol/L [facility] CO2 28 22 - 31 mmol/L [facility] Anion Gap 11 5 - 15 mmol/L [facility] Calcium 8.7 8.5 - 10.5 mg/dL [facility] Estimated GFR 117 >=60 mL/min/1.73 m?? [facility] Comment: The eGFR was calculated using the CKD-EP I equation. As with all creatinine based estimates of kidney function, eGFR values calculated with the CKD-EPI equation are not accurate in patients wi th acute kidney failure, extremes of body mass or the acutely ill. [email or web address] eGFR 136 >=60 mL/min/1.73 m?? [facility] Comment: The eGFR was calculated using the CKD-EP I equation. As with all creatinine based estimates of kidney function, eGFR values calculated with the CKD-EPI equation are not accurate in patients wi th acute kidney failure, extremes of body mass or the acutely ill. [email or web address] Specimen Anatomical Collection Method Collection Time Receive d Time (Source) Location / / Volume Laterality Blood specimen 02/02/2019 6:06 AM 019 6:46 (specimen) EDT AM EDT Resulting Agency Comment Spec In Lab Melissa Vinson MD CHEMISTRY ORDERABLES Performing Organization Address City/State/[place] [address] Surgical Pathology Report (02/01/2019 10:14 AM EDT) Component Value Ref Test Analysis Performed At [facility] gist Range Method Time Signature Surgical [id number] ? Location: 3EST; 0330; A [facility] Report The signing pathologist has (i) examined the relevant preparation(s) for the [facility] specimen(s) and (ii) rendered or confirmed the diagnosis(es) . HOSPITAL LABORATORY . ?Surgic al Pathology DIAGNOSIS Gallbladder, cholecystectomy: - Hyalinizing chronic cholecystitis. - ??Cholelithiasis. Electronically signed by: ??Heriberto Maier MD Verified: ??02/03/2019 ?Pathologist Performed at: ??-[facility] Dept. of Pathology, [place], [place] CLINICAL INFORMATION Specimen Submitted: A - [...] The hepatic margin is inked black Sections/Processing: Partition Assembly Machine Operator sections in 3 cassettes as follows: ?A1: ??cystic duct margin and insurance healthcare representative mucosa. ?A2-A3: ??Additional sections of mucosa ??pps Specimen (Source) Anatomical Collection Method Collection Time Re ceived Time Location / / Volume Laterality 02/01/2019 10:14 AM EDT Jorden Hogan MD PATHOLOGY/CYTOLOGY ORDERABLE S Performing Organization Address City/State/[place] [address] Specimen to Pathology (02/01/2019 9:46 AM EDT) Specimen Anatomical Collection Method Collection Time Receive d Time (Source) Location / / Volume Laterality AP Specimen 02/01/2019 9:46 AM 9 9:46 [address] [facility] - 02/01/2019 9:46 AM EDT Specimen requisition ordered. ??Separate Pathology report to follow Jorden Hogan MD PATHOLOGY/CYTOLOGY ORDERABLE S Performing Organization Address City/[facility]/ZIP Code Phon e Number [address] XR Fluoro No Rad <1Hr - OR Use (02/01/2019 9:44 AM EDT) Specimen (Source) Anatomical Location Collection Method / Collectio n Time Received Time / Laterality Volume Narrative [facility] - 02/01/2019 9:44 AM EDT This exam is auto-finalizing. No interpr etation was done. Jorden Hogan MD IMG FLUORO ORDERABLES Performing Organization Address City/State/ZIP Code Phon e Number DH RAD DH RAD [place], [place] ABORH Recheck Status (02/01/2019 6:20 AM EDT) [facility] Method Time Signature ABORH Recheck Order Placed [facility] LABORATORY ABORH Type Complete [facility] LABORATORY Specimen Anatomical Collection Method Collection Time Receive d Time (Source) Location / / Volume Laterality Blood specimen 02/01/2019 6:20 AM 019 7:06 (specimen) EDT AM EDT Resulting Agency Comment Spec In Lab Melissa Vinson MD BLOOD BANK ORDERABLES Performing Organization Address City/[facility]/[place] [address] Antibody screen (02/01/2019 6:20 AM EDT) [facility] Method Time Signature Ab Screen Negative [facility] LABORATORY Expires at 02/04/2019 [facility] [facility] [id number] on: [facility] LABORATORY Specimen Anatomical Collection Method Collection Time Receive d Time (Source) Location / / Volume Laterality Blood specimen 02/01/2019 6:20 AM 019 7:06 (specimen) EDT AM EDT Resulting Agency Comment Spec In Lab Melissa Vinson MD BLOOD BANK ORDERABLES Performing Organization Address City/[facility]/[place] [address] ABO/Rh Typing (02/01/2019 6:20 AM EDT) P athologist Signature ABORh Type O Pos [facility]OR[facility]ORY Specimen Anatomical Collection Method Collection Time Receive d Time (Source) Location / / Volume Laterality Blood specimen 02/01/2019 6:20 AM 019 7:06 (specimen) EDT AM EDT Resulting Agency Comment Spec In Lab Melissa Vinson MD BLOOD BANK ORDERABLES Performing Organization Address City/State/[place] [address] (ABNORMAL) Differential, Automated (02/01/2019 6:20 AM EDT) Patholo gist Method Time Signature Neutrophils % 69.9 % [facility] Neutr Abs (ANC) 6.33 (H) 1.70 - [facility] 6.10 [facility] x10(3)/[facility] LABORATORY Lymphocytes % 25.9 % [facility] Lymphocytes Abs 2.4 0.9 - 3.2 [facility] x10(3)/[facility] LABORATORY Monocytes % 2.9 % [facility] Monocyte Abs 0.3 0.3 - 0.9 [facility] x10(3)/[facility] LABORATORY Eosinophils % 0.3 % [facility] Eosinophils Abs 0.0 0.0 - 0.4 [facility] x10(3)/[facility] LABORATORY Basophils % 0.4 % [facility] Basophils Abs 0.0 0.0 - 0.1 [facility] x10(3)/[facility] LABORATORY Immature Gran % 0.60 % [facility] Comment: Immature granulocytes(IG's)percentage an d absolute count will include metamyelocytes, myelocytes, and promyelo cytes. Blood smears from CBCs yielding IG's will be scanned manually for concor dance. If this scan disagrees with the automated IG or if promyelocytes are not ed, a manual differential will be performed. Jaz Gran Abs 0.05 (H) 0.00 - 0.04 x10(3)/[facility] LABORATORY Specimen Anatomical Collection Method Collection Time Receive d Time (Source) Location / / Volume Laterality Blood specimen 02/01/2019 6:20 AM 019 6:29 (specimen) EDT AM EDT Resulting Agency Comment Spec In Lab Edenilson Rosales MD HEMATOLOGY ORDERABLES Performing Organization Address City/State/[place] [address] (ABNORMAL) Hemogram (02/01/2019 6:20 AM EDT) Analysis Performed At Patho logist Time Signature WBC 9.1 4.0 - 9.5 [facility] x[facility](3[facility] LABORATORY RBC 3.74 (L) 4.00 - TEGAN APURVA 5.21 [facility] x10(6)/[facility] LABORATORY Hemoglobin 10.7 (L) 11.7 - TEGAN APURVA 15.5 gm/dL [facility]ORY Hematocrit 32.9 (L) 35.7 - [facility] 45.8 % [facility]ORATORY MCV 88.0 82.6 - [facility] APURVA 94.4 [facility] LABORATORY MCH 28.6 27.1 - TEGAN APURVA 32.0 pg [facility] LABORATORY MCHC 32.5 31.7 - [facility] APURVA 35.0 gm/dL [facility] LABOR[facility]ORY Platelets 245 145 - 357 [facility] x10(3)/[facility] LABORATORY RDWSD 49.1 (H) 37.0 - [facility] APURVA 46.0 [facility] LABORATORY RDWCV 15.5 (H) 11.5 - [facility] APURVA 14.1 % [facility] LABORATORY MPV 10.6 7.6 - 12.9 [facility] nRBC % Auto 0.0 % [facility] nRBC Abs Auto 0.000 0.000 - TEGAN [employer] 0.000 [facility] x10(3)/[facility] LABORATORY Specimen Anatomical Collection Method Collection Time Receive d Time (Source) Location / / Volume Laterality Blood specimen 02/01/2019 6:20 AM 019 6:29 (specimen) EDT AM EDT Resulting Agency Comment Spec In Lab Edenilson Rosales MD HEMATOLOGY ORDERABLES Performing Organization Address City/State/[place] [address] (ABNORMAL) Hepatic Function Panel (02/01/2019 6:20 AM EDT) athologist Signature Total Protein 6.0 (L) 6.1 - 8.0 [facility] APURVA gm/dL [facility]ORY Albumin 3.3 3.2 - 5.2 [facility] AP[facility] gm/dL [facility] LABORATORY AST 33 (H) 0 - 30 [facility] APURVA unit/L [facility] LABORATORY ALT 88 (H) 0 - 30 [facility] APURVA unit/L [facility] LABORATORY Alk Phos 179 (H) 40 - 104 [facility]/L [facility] LABORATORY Total 1.8 (H) 0.2 - 1.3 [facility] Bilirubin mg/dL [facility] LABORATORY Bili, Direct 1.0 (H) 0.0 - 0.3 [facility] mg/dL [facility]ORY Comment: result rechecked-es Specimen Anatomical Collection Method Collection Time Receive d Time (Source) Location / / Volume Laterality Blood specimen 02/01/2019 6:20 AM 019 6:29 (specimen) EDT AM EDT Resulting Agency Comment Spec In Lab Melissa Vinson MD CHEMISTRY ORDERABLES Performing Organization Address City/State/ZIP Code Phon e Number [address] (ABNORMAL) Basic Metabolic Panel (non-fasting) (02/01/2019 6:20 AM EDT) athologist [facility] Glucose Lvl 117 65 - 199 [facility] mg/dL [facility]ORY Comment: Diabetes: >=200 mg/dL plus symp toms BUN 6 (L) 8 - 18 mg/dL [facility] LABORATORY Creatinine 0.80 0.70 - 1.20 mg/dL [facility] LABORATORY Sodium 143 135 - 145 mmol/L [facility] LABORATORY Potassium 3.6 3.5 - 5.0 mmol/L [facility] LABORATORY Comment: Please note: ??Patients with WBC >100,00 0 may have falsely elevated Potassium levels. ??For accurate Potassium quantif ication in these patients send serum separator tube (gold top) for subsequent determinations. ??Contact the Clinical Chemistry Laboratory if there are any qu estions. Chloride 108 (H) 98 - 107 mmol/L [facility] CO2 24 22 - 31 mmol/L [facility] Anion Gap 11 5 - 15 mmol/L [facility] LABORATORY Calcium 8.6 8.5 - 10.5 mg/dL [facility] LABORATORY Estimated GFR 100 >=60 mL/min/1.73 m?? [facility] Comment: The eGFR was calculated using the CKD-EP I equation. As with all creatinine based estimates of kidney function, eGFR values calculated with the CKD-EPI equation are not accurate in patients wi th acute kidney failure, extremes of body mass or the acutely ill. [email or web address] eGFR 115 >=60 mL/min/1.73 m?? [facility] Comment: The eGFR was calculated using the CKD-EP I equation. As with all creatinine based estimates of kidney function, eGFR values calculated with the CKD-EPI equation are not accurate in patients wi th acute kidney failure, extremes of body mass or the acutely ill. [email or web address] Specimen Anatomical Collection Method Collection Time Receive d Time (Source) Location / / Volume Laterality Blood specimen 02/01/2019 6:20 AM 019 6:29 (specimen) EDT AM EDT Resulting Agency Comment Spec In Lab Melissa Vinson MD CHEMISTRY ORDERABLES Performing Organization Address City/State/[place] [address] C. Difficile Screen (01/31/2019 6:13 AM EDT) Analysis Performed At Patho logist Time Signature C Diff Screen Negative Negative [facility] Comment: C. diff ??Negative Clostridium difficile is not present in the specimen. If patient is having diarrhea suspected to be from an infecti ous cause, then Contact Precautions are still required. Specimen Anatomical Collection Method Collection Time Receive d Time (Source) Location / / Volume Laterality Stool specimen 01/31/2019 6:13 AM 05/28/2 019 7:31 (specimen) EDT AM EDT Resulting Agency Comment Spec In Lab Edenilson Roslaes MD MICROBIOLOGY - GENERAL ORDER CURTIS Performing Organization Address City/[facility]/[place] [address] (ABNORMAL) Hepatic Function Panel (01/31/2019 3:51 AM EDT) P athologist Signature Total Protein 7.1 6.1 - 8.0 [facility] AP[facility]VA gm/dL [facility] LABORATORY Albumin 3.7 3.2 - 5.2 [facility] gm/dL [facility] LABORATORY AST 78 (H) 0 - 30 [facility] unit/L [facility] LABORATORY ALT 124 (H) 0 - 30 [facility] LABORATORY Alk Phos 244 (H) 40 - 104 [facility] unit/L [facility] LABORATORY Total 5.2 (H) 0.2 - 1.3 [facility] Bilirubin mg/dL [facility] LABORATORY Bili, Direct 4.1 (H) 0.0 - 0.3 [facility] mg/dL [facility] LABORATORY Specimen Anatomical Collection Method Collection Time Receive d Time (Source) Location / / Volume Laterality Blood specimen 01/31/2019 3:51 AM 019 4:02 (specimen) EDT AM EDT Resulting Agency Comment Spec In Lab Edenilson Rosales MD CHEMISTRY ORDERABLES Performing Organization Address City/[facility]/[place] [address] (ABNORMAL) Differential, Automated (01/31/2019 3:51 AM EDT) Patholo gist Method Time Signature Neutrophils % 89.3 % [facility] Neutr Abs (ANC) 8.14 (H) 1.70 - [facility] APURVA 6.10 [facility] x10(3)/[facility] LABORATORY Lymphocytes % 9.4 % [facility] Lymphocytes Abs 0.9 0.9 - 3.2 [facility] x10(3)/[facility] LABORATORY Monocytes % 0.9 % [facility] Monocyte Abs 0.1 (L) 0.3 - 0.9 [facility] x10(3)/[facility] LABORATORY Eosinophils % 0.0 % [facility] Eosinophils Abs 0.0 0.0 - 0.4 [facility] x10(3)/[facility] LABORATORY Basophils % 0.1 % [facility] Basophils Abs 0.0 0.0 - 0.1 [facility] x10(3)/[facility] LABORATORY Immature Gran % 0.30 % [facility] Comment: Immature granulocytes(IG's)percentage an d absolute count will include metamyelocytes, myelocytes, and promyelo cytes. Blood smears from CBCs yielding IG's will be scanned manually for concor dance. If this scan disagrees with the automated IG or if promyelocytes are not ed, a manual differential will be performed. Jaz Gran Abs 0.03 0.00 - 0.04 x10(3)/[facility] LABORATORY Specimen Anatomical Collection Method Collection Time Receive d Time (Source) Location / / Volume Laterality Blood specimen 01/31/2019 3:51 AM 019 4:02 (specimen) EDT AM EDT Resulting Agency Comment Spec In Lab Edenilson Rosales MD HEMATOLOGY ORDERABLES Performing Organization Address City/State/[place] [address] (ABNORMAL) Hemogram (01/31/2019 3:51 AM EDT) Analysis Performed At Patho logist Time Signature WBC 9.1 4.0 - 9.5 [facility] x10(3)/[facility] LABORATORY RBC 4.41 4.00 - [facility] 5.21 [facility] x10(6)/[facility] LABORATORY Hemoglobin 12.5 11.7 - [facility] 15.5 gm/dL [facility]ORATORY Hematocrit 38.0 35.7 - [facility] 45.8 % [facility]ATORY MCV 86.2 82.6 - [facility] 94.4 fL [facility] LABORATORY MCH 28.3 27.1 - [facility] 32.0 pg [facility] MCHC 32.9 31.7 - [facility] 35.0 gm/dL [facility] LABORATORY Platelets 292 145 - 357 [facility] x10(3)/[facility] LABORATORY RDWSD 46.7 (H) 37.0 - [facility] 46.0 [facility] LABORATORY RDWCV 14.6 (H) 11.5 - [facility] 14.1 % [facility] LABORATORY MPV 11.0 7.6 - 12.9 [facility] LABORATORY nRBC % Auto 0.0 % [facility] nRBC Abs Auto 0.000 0.000 - [facility] 0.000 [facility] x10(3)/[facility] LABORATORY Specimen Anatomical Collection Method Collection Time Receive d Time (Source) Location / / Volume Laterality Blood specimen 01/31/2019 3:51 AM 019 4:02 (specimen) EDT AM EDT Resulting Agency Comment Spec In Lab Edenilson Rosales MD HEMATOLOGY ORDERABLES Performing Organization Address City/State/Z[place] [address] (ABNORMAL) Basic Metabolic Panel (non-fasting) (01/31/2019 3:51 AM EDT) athologist Signature Glucose Lvl 217 (H) 65 - 199 [facility] mg/dL [facility] LABORATORY Comment: delta result rechecked-KLA Diabetes: >=200 mg/dL plus symptoms BUN 4 (L) 8 - 18 mg/dL [facility] LABORATORY Creatinine 0.70 0.70 - 1.20 mg/dL [facility] LABORATORY Sodium 140 135 - 145 mmol/L [facility] LABORATORY Potassium 4.2 3.5 - 5.0 mmol/L [facility] LABORATORY Comment: Please note: ??Patients with WBC >100,00 0 may have falsely elevated Potassium levels. ??For accurate Potassium quantif ication in these patients send serum separator tube (gold top) for subsequent determinations. ??Contact the Clinical Chemistry Laboratory if there are any qu estions. Chloride 106 98 - 107 mmol/L [facility] CO2 23 22 - 31 mmol/L [facility] Anion Gap 11 5 - 15 mmol/L [facility] LABORATORY Calcium 9.1 8.5 - 10.5 mg/dL [facility] LABORATORY Estimated GFR 117 >=60 mL/min/1.73 m?? [facility] Comment: The eGFR was calculated using the CKD-EP I equation. As with all creatinine based estimates of kidney function, eGFR values calculated with the CKD-EPI equation are not accurate in patients wi th acute kidney failure, extremes of body mass or the acutely ill. [email or web address] eGFR 136 >=60 mL/min/1.73 m?? [facility] Comment: The eGFR was calculated using the CKD-EP I equation. As with all creatinine based estimates of kidney function, eGFR values calculated with the CKD-EPI equation are not accurate in patients wi th acute kidney failure, extremes of body mass or the acutely ill. [email or web address] Specimen Anatomical Collection Method Collection Time Receive d Time (Source) Location / / Volume Laterality Blood specimen 01/31/2019 3:51 AM 019 4:02 (specimen) EDT AM EDT Resulting Agency Comment Spec In Lab Melissa Vinson MD CHEMISTRY ORDERABLES Performing Organization Address City/State/[place] [address] ERCP (01/30/2019 11:09 AM EDT) Component Value Ref Test Analysis Performed At [facility] Range Method Time Signature ERCP [facility] Endoscopy Procedure Date: 01/30/2019 11:09 AM ? Patient Name: Ina Orellana ? Date of : 1990 ? Age: 28 ? Order #: [id number] ? Instrument Name: [id number] ? Procedure: ? ERCP Indications: ? Bile duct stone(s), Abdominal pain of ? suspected biliary origin, Rashardu eleonora, ? Elevated liver enzymes, dilat ed CBD ? on CT scan Providers: ? Weston Dixon MD, Sonia Castro, ? Imtiaz Bai RN, Lyudmila Stark, ? Energy Project Engineer Referring MD: ? Medicines: ? Propofol per [...] the procedure well. ? Findings: ? The associate professor of education film was normal. The esophagus was ? [...] Unknown GENERAL SURGICAL ORDERABLES Performing Organization Address [facility]/ZIP Code Phon e Number [facility] Blood culture (01/30/2019 7:21 AM EDT) Patholo gist Method Time Signature Blood Culture No growth TEGAN HARRISON at 5 days. [facility] LABORATORY Specimen Anatomical Collection Method Collection Time Receive d Time (Source) Location / / Volume Laterality Blood specimen STRUCTURE OF RIGHT 01/30/2019 7:21 AM 0 01/30/2019 7:21 (specimen) FOREARM / Unknown EDT AM EDT Resulting Agency Comment Spec In Lab Edenilson Rosales MD MICROBIOLOGY - BLOOD ORDERAB LES Performing Organization Address City/[facility]/ZIP Code Ph[place] [address] Lipase (01/30/2019 6:05 AM EDT) P athologist Signature Lipase 9 0 - 60 TEGAN HARRISON unit/L [facility] LABORATORY Specimen Anatomical Collection Method Collection Time Receive d Time (Source) Location / / Volume Laterality Blood specimen Venous Draw / 01/30/2019 6:05 AM 2018 6:28 (specimen) Unknown EDT AM EDT Resulting Agency Comment Spec In Lab Edenilson Rosales MD CHEMISTRY ORDERABLES Performing Organization Address [facility]/State/[place] [address] Differential, Automated (01/30/2019 6:05 AM EDT) P athologist Signature Neutrophils % 70.2 % [facility] Neutr Abs (ANC) 4.50 1.70 - [facility] 6.10 [facility] x10(3)/[facility] LABORATORY Lymphocytes % 22.7 % [facility] Lymphocytes Abs 1.4 0.9 - 3.2 [facility] x10(3)/[facility] LABORATORY Monocytes % 4.5 % [facility] Monocyte Abs 0.3 0.3 - 0.9 [facility] x10(3)/[facility] LABORATORY Eosinophils % 1.9 % [facility] Eosinophils Abs 0.1 0.0 - 0.4 [facility] x10(3)/[facility] LABORATORY Basophils % 0.5 % [facility] Basophils Abs 0.0 0.0 - 0.1 [facility] x10(3)/[facility] LABORATORY Immature Gran % 0.20 % [facility] Comment: Immature granulocytes(IG's)percentage an d absolute count will include metamyelocytes, myelocytes, and promyelo cytes. Blood smears from CBCs yielding IG's will be scanned manually for concor dance. If this scan disagrees with the automated IG or if promyelocytes are not ed, a manual differential will be performed. Jaz Gran Abs 0.01 0.00 - 0.04 x10(3)/[facility] LABORATORY Specimen Anatomical Collection Method Collection Time Receive d Time (Source) Location / / Volume Laterality Blood specimen 01/30/2019 6:05 AM 019 6:26 (specimen) EDT AM EDT Resulting Agency Comment Spec In Lab Edenilson Rosales MD HEMATOLOGY ORDERABLES Performing Organization Address City/State/[place] [address] (ABNORMAL) Hemogram (01/30/2019 6:05 AM EDT) Analysis Performed At Patho logist Time Signature WBC 6.4 4.0 - 9.5 [facility] x[facility](3[facility] LABORATORY RBC 4.16 4.00 - TEGAN MANTILLACOCK 5.21 [facility] x10(6)/[facility] LABORATORY Hemoglobin 11.6 (L) 11.7 - TEGAN REINOSOAPURVA 15.5 gm/dL [facility] LABORATORY Hematocrit 35.3 (L) 35.7 - TEGAN APURVA 45.8 % [facility] LABORATORY MCV 84.9 82.6 - [facility] 94.4 [facility] LABORATORY MCH 27.9 27.1 - TEGAN APURVA 32.0 pg [facility] LABORATORY MCHC 32.9 31.7 - TEGAN [facility] 35.0 gm/dL [facility] LABORATORY Platelets 278 145 - 357 [facility] x10(3)/[facility] LABORATORY RDWSD 45.7 37.0 - [facility] 46.0 [facility] LABORATORY RDWCV 14.6 (H) 11.5 - [facility] APURVA 14.1 % [facility] LABORATORY MPV 10.5 7.6 - 12.9 [facility] LABORATORY nRBC % Auto 0.0 % [facility] nRBC Abs Auto 0.000 0.000 - TEGAN APURVA 0.000 [facility] x10(3)/[facility] LABORATORY Specimen Anatomical Collection Method Collection Time Receive d Time (Source) Location / / Volume Laterality Blood specimen 01/30/2019 6:05 AM 019 6:26 (specimen) EDT AM EDT Resulting Agency Comment Spec In Lab Edenilson Rosales MD HEMATOLOGY ORDERABLES Performing Organization Address City/State/[place] [address] (ABNORMAL) Hepatic Function Panel (01/30/2019 6:05 AM EDT) P athologist Signature Total Protein 6.8 6.1 - 8.0 [facility] REINOSOAP[facility]VA gm/dL [facility] LABORATORY Albumin 3.8 3.2 - 5.2 [facility] gm/dL [facility] LABORATORY AST 73 (H) 0 - 30 [facility] AP[facility] unit/L [facility] LABORATORY ALT 128 (H) 0 - 30 [facility] unit/L [facility] LABORATORY Alk Phos 235 (H) 40 - 104 [facility] unit/L [facility] LABORATORY Total 6.8 (H) 0.2 - 1.3 [facility] Bilirubin mg/dL [facility] LABORATORY Bili, Direct 5.7 (H) 0.0 - 0.3 [facility] mg/dL [facility] LABORATORY Specimen Anatomical Collection Method Collection Time Receive d Time (Source) Location / / Volume Laterality Blood specimen 01/30/2019 6:05 AM 019 6:26 (specimen) EDT AM EDT Resulting Agency Comment Spec In Lab Edenilson Rosales MD CHEMISTRY ORDERABLES Performing Organization Address City/[facility] Code Phon e Number [address] Hepatitis C RNA, quantitative, PCR (01/30/2019 6:05 AM EDT) Component Value Ref Test Analysis Performed At [facility] Range Method Time Signature HCV Viral <12 IU/mL [facility] LABORATORY HCV Viral Result: <12 IU/mL(Target Not Detected) [facility] Indication for Study: Hepatitis C Infection [facility] Analysis: The [employer] RealTime HCV assay is an in vitro reverse page makeup system operator LABORATORY polymerase chain reaction (RT-PCR)for the [...] Rosales MD IMMUNOLOGY ORDERABLES Performing Organization Address City/[facility]/ZIP Code Phon e Number [address] Blood culture (01/30/2019 6:05 AM EDT) Patholo gist Method Time Signature Blood Culture No growth TEGAN HARRISON at 5 days. [facility] LABORATORY Specimen Anatomical Collection Method Collection Time Receive d Time (Source) Location / / Volume Laterality Blood specimen STRUCTURE OF LEFT 01/30/2019 6:05 AM 7:21 (specimen) HAND / Unknown EDT AM EDT Resulting Agency Comment Spec In Lab Edenilson Rosales MD MICROBIOLOGY - BLOOD ORDERAB LES Performing Organization Address City/[facility]/[place] [address] (ABNORMAL) APTT (01/30/2019 6:05 AM EDT) P athologist Signature PTT 38 (H) 25 - [address] [facility] Comment: The PTT is NOT appropriate [...] Rosales MD HEMATOLOGY ORDERABLES Performing Organization Address City/[facility]/ZIP [facility] [place] [place] [address] (ABNORMAL) Prothrombin Time (01/30/2019 6:05 AM EDT) P athologist Signature PT 12.6 (H) 9.4 - 12.5 [facility] LABORATORY INR [address].1 [facility] [facility] Comment: An INR <2.0 indicates adequate [...] Rosales MD HEMATOLOGY ORDERABLES Performing Organization Address City/[facility]/ZIP Code Phon e Number [address] (ABNORMAL) Phosphorus (01/30/2019 6:05 AM EDT) athologist Signature Phosphorus 2.4 (L) 2.5 - 4.5 [facility] mg/dL [facility] Specimen Anatomical Collection Method Collection Time Receive d Time (Source) Location / / Volume Laterality Blood specimen 01/30/2019 6:05 AM 019 6:26 (specimen) EDT AM EDT Resulting Agency Comment Spec In Lab Edenilson Rosales MD CHEMISTRY ORDERABLES Performing Organization Address City/[facility]/[place] [address] Magnesium (01/30/2019 6:05 AM EDT) athologist Signature Magnesium 0.73 0.69 - 1.07 [facility] mmol/L [facility] Specimen Anatomical Collection Method Collection Time Receive d Time (Source) Location / / Volume Laterality Blood specimen 01/30/2019 6:05 AM 019 6:26 (specimen) EDT AM EDT Resulting Agency Comment Spec In Lab Edenilson Rosales MD CHEMISTRY ORDERABLES Performing Organization Address City/[facility]/ZIP [facility] [place], [place] [address] (ABNORMAL) Basic Metabolic Panel (non-fasting) (01/30/2019 6:05 AM EDT) athologist Signature Glucose Lvl 70 65 - 199 [facility]dL [facility] Comment: Diabetes: >=200 mg/dL plus symp toms BUN 6 (L) 8 - 18 mg/dL [facility] Creatinine 0.63 (L) 0.70 - 1.20 mg/dL [facility]ORY Sodium 141 135 - 145 mmol/L [facility] Potassium 3.5 3.5 - 5.0 mmol/L [facility] Comment: Please note: ??Patients with WBC >100,00 0 may have falsely elevated Potassium levels. ??For accurate Potassium quantif ication in these patients send serum separator tube (gold top) for subsequent determinations. ??Contact the Clinical Chemistry Laboratory if there are any qu estions. Chloride 104 98 - 107 mmol/L [facility] CO2 23 22 - 31 mmol/L [facility] Anion Gap 14 5 - 15 mmol/L [facility] Calcium 8.4 (L) 8.5 - 10.5 mg/dL [facility] Estimated GFR 121 >=60 mL/min/1.73 m?? [facility] Comment: The eGFR was calculated using the CKD-EP I equation. As with all creatinine based estimates of kidney function, eGFR values calculated with the CKD-EPI equation are not accurate in patients wi th acute kidney failure, extremes of body mass or the acutely ill. [email or web address] [email or web address] eGFR 140 >=60 mL/min/1.73 m?? [facility] Comment: The eGFR was calculated using the CKD-EP I equation. As with all creatinine based estimates of kidney function, eGFR values calculated with the CKD-EPI equation are not accurate in patients wi th acute kidney failure, extremes of body mass or the acutely ill. [email or web address] Specimen Anatomical Collection Method Collection Time Receive d Time (Source) Location / / Volume Laterality Blood specimen 01/30/2019 6:05 AM 019 6:26 (specimen) EDT AM EDT Resulting Agency Comment Spec In Lab Edenilson Rosales MD CHEMISTRY ORDERABLES Performing Organization Address City/State/[place] [address] documented in this encounter Visit Diagnoses Not on filedocumented in this encounter Admitting Diagnoses Diagnosis Choledocholithiasis [...] Given 02/01/2019 11:27 AM EDT 650 mg BUpivacaine-EPINEPHrine 0.25 Given 02/01/2019 8:21 AM 15 mLs 19- Surgical Site %-1:200,000 injection EDT ONCE PRN, Starting on Wed02/01/19 at 0821, Until Wed02/02/19 at 1529, Intra-Operative (Intra-Procedure), Routine calcium carbonate (Tums) chewable tablet 500 Given 5:15 AM EDT 500 mg mg 500 mg, Oral, 3 TIMES DAILY PRN, Starting on Wed01/31/19 at 0504, Until Wed02/02/19 at 1529, Heartburn, STAT gabapentin (NEURONTIN) capsule 300 mg Given 02/02/2019 5:14 AM EDT 300 mg 300 mg, Oral, EVERY 8 HOURS SCHEDULED, First dose (after last modification) on Wed01/31/19 at 2200, Until Discontinued, Routine Given 02/01/2019 9:09 PM EDT 300 mg Given 02/01/2019 1:27 PM EDT 300 mg hydrOXYzine (ATARAX) tablet 50 mg Given 02/01/2019 12:11 PM EDT 50 mg 50 mg, Oral, EVERY 8 HOURS PRN, Starting on Wed01/30/19 at 0451, Until Wed02/02/19 at 1529, Itching, Routine Given 01/30/2019 8:51 PM EDT 50 mg iohexol (OMNIPAQUE) 300 mg/mL Given 02/01/2019 9:44 AM EDT 10 mL s 19- Surgical Site solution ONCE PRN, Starting on Wed02/01/19 at 0944, Until Wed02/02/19 at 1529, Intra-Operative (Intra-Procedure), Routine ketorolac (TORADOL) injection 30 mg Given 02/02/2019 7:40 AM EDT 30 mg 30 mg, Intravenous, EVERY 6 HOURS, 5 doses, First dose on Wed02/01/19 at 2000, Last dose on Wed02/02/19 at 2000, Routine Given 02/02/2019 1:05 AM EDT 30 mg Given 02/01/2019 8:15 PM EDT 30 mg lidocaine (XYLOCAINE) 10 mg/mL Given 02/01/2019 10:11 AM 15 mLs 19- Surgical Site (1 %) injection EDT ONCE PRN, Starting on Wed02/01/19 at 0821, Until Wed02/02/19 at 1529, Intra-Operative (Intra-Procedure), Routine loperamide (IMODIUM) capsule 2 mg 2 mg, Oral, 4 TIMES DAILY PRN, Starting on Wed01/31/19 at 1543, Until Wed02/02/19 at 1529, Diarrhea, Do not exceed 16 mg/day., Routine melatonin tablet 6 mg Given 02/01/2019 [...] dose., Routine, Name of patient's Methadone clinic? [facility], Methadone clinic phone: , Date last Methadone dose was given at the Outpatient Clinic? 01/29/2019, Dose of Methadone provided at the clinic? 105 mg daily Given 02/01/2019 5:11 AM EDT 105 mg morphine 4 mg/mL injection 4-8 mg Given [...] PRN, Starting on Wed02/01/19 at 1315, Until Wed02/02/19 at 1529, Pain, Moderate-severe pain (6/10 or [...] Given 01/31/2019 2:16 PM EDT 40 mg sodium chloride 0.9 % flush 5 mL Given 02/02/2019 10:07 AM EDT 5 mLs 5 mL, Intravenous, 2 TIMES DAILY, First dose on Wed01/30/19 at 0900, Until Discontinued, Routine Given 02/01/2019 9:00 PM EDT 5 mLs Given 01/31/2019 8:07 PM EDT 5 mLs sulfamethoxazole-trimethoprim (BACTRIM DS) Given 02/02 11:48 AM [...] (CANCELED) 051 5 (Given - Provider: Nelly Villanueva RN) 8 mg, Intravenous, EVERY 6 HOURS SCHED ED, First dose on Wed01/30/19 at 1300, Until Discontinued, Routine famotidine (PEPCID) tablet 20 mg (COMPLETED) 1044 (Giv en - Provider: Emerald Garcia RN) 20 mg, Oral, ONCE, 1 dose, Wed01/31/19 at 1045, STAT gabapentin (NEURONTIN) capsule 300 mg (CANCELED) 0839 (Given - Provider: Emerald Garcia, RN)1452 (Given - Provider: Emerald Garcia, MINDA) 300 mg, Oral, 3 TIMES DAILY, First dose on Wed01/30/19 at 0900, Until Discontinued, Routine gabapentin (NEURONTIN) capsule 300 mg 2131 (Given - Pr ovider: Angy Pritchett, MINDA) 0511 (Given - Provider: Angy Pritchett , MINDA)0734 (NOV Hold - Provider: Admin Adt - Reason: Transfer to a Procedural area)1244 (MAR Unhold - Provider: Admin Adt)1327 (Given - Provider: Tere Sen, MINDA) 0514 (Given - Provider: Peggy Hernandez, RN) 300 mg, Oral, EVERY 8 HOURS SCHEDULED, F irst dose on Wed01/31/19 at 2200, Until Discontinued, Routine 2108 (Given - Provider: Peggy Hernandez RN) ketorolac (TORADOL) injection 30 mg (COMPLETED) 1321 (Given - Provider: Tere Sen, RN) 30 mg, Intravenous, ONCE, 1 dose, Wed02/01/19 at 1330, STAT ketorolac (TORADOL) injection 30 mg 2014 (Given - Provider: Peggy Hernandez RN) 104 (Given - Provider: Peggy Hernandez, RN)0740 (Given - Provider: Tere Sen, MINDA) [...] morphine 4 mg/mL injection 4 mg (COMPLETED) 1321 (Given - Provider: Tere Sen RN) 4 mg, Intravenous, ONCE, 1 dose, Wed02/01/19 at 1330, STAT morphine 4 mg/mL injection 4 mg (COMPLETED) 1416 (Given - Provider: Whitney Amaya RN) 4 mg, Intravenous, ONCE, 1 dose, Wed02/01/19 at 1430, STAT mupirocin (BACTROBAN) 2 % ointment 1 each 1148 (Given - Provider: Dilma Newsome RN) 1 each, Topical (Top), 3 TIMES DAILY, Fi rst dose on Wed02/02/19 at 1130, Apply to umbilical incision and surrounding erythematous skin pantoprazole (PROTONIX) tablet 40 mg 1416 (Given - Pro vider: Emerald Garcia RN) 0734 (NOV Hold - Provider: Admin Adt - R maryellen: Transfer to a Procedural area)0900 (Given - Provider: Tere Sen RN)1244 (MAR Unhold - Provider: Admin Adt) 1007 (Given [...] Garcia RN) 0131 (Stopped - Provider: Angy Pritchett RN)0512 (New Bag - Provider: Angy Pritchett RN)0734 (NOV Hold - Provider: Admin Adt - Reason: Transfer to a Procedural area)0912 (Stopped - Provider: Tere Sen RN) 0112 (Stopped - Provider: Peggy Hernandez RN)0519 (New Bag - Provider: Peggy Hernandez RN)0919 (Stopped - Provider: Tere Sen, MNIDA) 3.375 g, Intravenous, EVERY 8 HOURS, Fir st dose on Wed01/30/19 at 1315, Until Discontinued, Administer over 4 Hours, Warning Vesicant/Irritant Medication Do not administer or Y-site with lactated 2131 (New Bag - Provider: Angy Pritchett RN) 1244 (MAR Unhold - Provider: Admin Adt)1 328 (New Bag - Provider: Tere Sen, MINDA)1728 (Stopped - Provider: Tere Sen, MINDA)2112 (New Bag - Provider: Peggy Hernandez RN) ringers., Indication for (Active or Suspected): GI/Intra-abdomin al sodium chloride 0.9 % flush 5 mL 0842 (Given - Provide r: Emerald Garcia RN)2007 (Given - Provider: Angy Pritchett RN) 0734 (MAR Hold - Provider: Admin [...] (2 times per day), First dose on Negin 02/02/19 at 1100, Until Discontinued, STAT Continuous Medication Order 01/31/2019 02/01/2019 02/02/2019 sodium chloride 0.9% infusion (CANCELED) 0028 (New Bag - Provider: Nelly Villanueva RN)1044 (New Bag - Provider: Emerald Garcia RN) 0457 (New Bag - Provider: Angy Pritchett RN)0734 (MAR Hold - Provider: Admin Adt - Reason: Transfer to a Procedural area)1131 (MAR Unhold - Provider: Stacy Whyte, MINDA) 1,000 mL, at 100 mL/hr, Intravenous, CON TINUOUS, Starting Wed01/30/19 at 0515, Until Wed02/01/19 at 1536 PRN Medication Order 01/31/2019 02/01/2019 02/02/2019 acetaminophen (TYLENOL) tablet 650 mg 07 34 (NOV Hold - Provider: Admin Adt - Reason: Transfer to a Procedural area)1044 (NOV Unhold - Provider: Iraida Townsend RN)1127 (Given - Provider: Stacy Whyte, RN)1855 (Given - Provider: Tere Sen RN) 650 mg, Oral, EVERY 6 HOURS PRN, Startin g Wed01/31/19 at 1557, Until Wed02/02/19 at 1529, Pain, Maximum dose of acetaminophen is 4000 mg from all sources in 24 hours., Routine BUpivacaine-EPINEPHrine 0.25 %-1:200,000 injection (CANCELED ) 0821 (Given - Provider: Jorden Hogan MD) ONCE PRN, Starting Wed02/01/19 at 0821, Until Negin 02/02/19 at 1529, Intra- Operative (Intra-Procedure), Routine calcium carbonate (Tums) chewable tablet 500 mg 0515 ( Given - Provider: Nelly Villanueva RN) 0734 (NOV Hold - Provider: Admin Adt - R maryellen: Transfer to a Procedural area)1244 (NOV Unhold - Provider: Admin Adt) 500 mg, Oral, 3 TIMES DAILY PRN, Startin g Wed01/31/19 at 0504, Until Wed02/02/19 at 1529, Heartburn, STAT HYDROmorphone (DILAUDID) injection 0.4-0.6 mg (CANCELED) 1035 (Given - Provider: Iraida Townsend RN)1041 (Given - Provider: Iraida Townsend [...] HOURS PRN, Starting Wed01/30/19 at 0645, Until Wed01/31/19 at 1557, Pain HYDROmorphone (DILAUDID) tablet 2 mg (CANCELED) 2005 ( Given - Provider: Angy Pritchett RN) 0238 (Given - Provider: Angy Pritchett RN)0734 (NOV Hold - Provider: Admin Adt - Reason: Transfer to a Procedural area)1044 (NOV Unhold - Provider: Iraida Townsend RN)1111 (Given - Provider: Iraida Townsend RN) 2 mg, Oral, EVERY 4 HOURS PRN, Starting Wed01/31/19 at 1558, Until Wed02/01/19 at 1306, [...] - Reason: Transfer to a Procedural area)1244 (MAR Unhold - Provider: Admin Adt) 3 mg (0.3 mL), Subcutaneous, ONCE PRN, 1 dose, Starting Wed01/30/19 at 0452, Until Negin 02/02/19 at 1529, for discomfort with PIV insertion, Routine lidocaine (XYLOCAINE) 10 mg/mL (1 %) injection (CANCELED) 0821 (Canceled Entry - Provider: Jorden Hogan MD)1011 (Given - Provider: Jorden Hogan MD) ONCE PRN, Starting Wed02/01/19 at 0821, Until Negin 02/02/19 at 1529, Intra- Operative (Intra-Procedure), Routine loperamide (IMODIUM) capsule 2 mg 0734 ( [facility] Hold - Provider: Admin Adt - Reason: Transfer to a Procedural area)1244 ([facility] Unhold - Provider: Admin Adt) 2 mg, Oral, 4 TIMES DAILY PRN, Starting Wed01/31/19 at 1543, Until Negin 02/02/19 at 1529, Diarrhea, Do not exceed 16 mg/day., Routine midazolam (PF) (VERSED) injection 0.5 mg (COMPLETED) 1130 (Given - Provider: Stacy Whyte, MINDA) 0.5 mg, Intravenous, ONCE PRN, 1 dose, S tarting Wed02/01/19 at 1126, Until Wed02/01/19 at 1130, Sleep, Routine morphine 4 mg/mL injection 4-8 mg 1855 ( Given - Provider: Tere Sen RN) 0232 (Given - Provider: Amandeep Patel) 4-8 [...] Hernandez RN) 0740 (Given - Provider: Tere Sen, MINDA)1143 (Given - Provider: Dilma Newsome RN) 10 [...] 2 doses, Starting 02/01/19 at 1021, Until Wed02/01/19 at 1147, Nausea, [...] first.
documented in this encounter Care Teams Semaphore Operator Relationship Specialty Start Date End Date Linda Gunn APRN PCP - General Family Medicine 01/30/19 [address] [place] [address] documented as of this encounter
--- OUTSIDE RECORDS SUMMARY | 2022-06-12 06:20 | XMS_ITS | Encounter Summary ---
:1990 Author Organization [facility] [place] [address] Care Team Providers Name Role Phone Linda Gunn APRN Primary Care Provider Reason for Visit Auth/Cert Specialty Diagnoses / Procedures Referred By Contact Refer red To Contact Diagnoses Choledocholithiasis RUQ PAIN/ JAUNDICE Procedures EMERGENCY IPI Referral ID Status Reason Start Date Expiration Date Visits Requ ested Visits Authorized [id number] 1 1 Encounter Details Date Type Department Care Team Description 01/30/2019 Surgery [place] [facility] [place]on Dixon MD [place] [address] GASTROENTEROLOGY [phone] [place], [place] [address] (Wo rk) Social History Tobacco Use Types Packs/Day Years Used Date Current Every Day Smoker Smokeless Tobacco: Never Used Alcohol Use Standard Drinks/Week Comments Not Currently 0 (1 standard drink = 0.6 oz pure alcoho l) Sex Assigned at Date Recorded Not on file documented as of this encounter Last Filed Vital Signs Vital Sign Reading Time Taken Comments Blood Pressure 135/88 01/30/2019 8:01 AM EDT Pulse 67 01/30/2019 8:01 AM EDT Temperature 36.4 ??C (97.5 ??F) 01/30/2019 8:01 AM EDT Respiratory Rate 19 01/30/2019 8:01 AM EDT Oxygen Saturation 99% 01/30/2019 8:01 AM EDT Inhaled Oxygen Concentration - - Weight 103.4 kg (228 lb) 01/30/2019 4:20 AM EDT Height 180.3 cm (5' 11) 01/30/2019 4:20 AM EDT Body Mass Index 31.8 01/30/2019 4:20 AM EDT documented in this encounter Discharge Summaries Melissa Vinson MD - 02/02/2019 1:29 PM EDT Discharge Summary Patient Name: Ina Orellana Patient Age: 28 y.o. Language: Taiwanese Race: White Ethnicity: Not nor Admit date: [...] Studies and Lab Data: Labs: Recent Labs 02/02/1960502/01/1961901/31/19 035 WBC 8.7 9.1 9.1 HGB 10.7* 10.7* [...] 0.8* 1.0* 4.1* Recent Labs 02/02/1960502/01/1961901/31/19 03501/30/19 0605 CALCIUM 8.7 8.6 9.1 8.4* MAGNESIUM -- -- -- 0.73 PHOS -- -- -- 2.4* No results for input(s): CK, TROPONINT in the last 168 hours. Recent Labs 01/30/19 0605 PT 12.6* PTT 38* INR 1.1 LIPASE [...] 101.3 F. The number for questions is [phone] before 5 PM weekdays and [phone] after 5 PM and weekends. Pain Medication: [...] will be mailed to you. Please call [phone] to confirm date and time of your appointment if you do not receive your apointment in 3 weeks. No future appointments. Future Appointments and Orders Future Appointments and Orders Future Appointments Provider Department Dept Phone 03/03/2019 9:30 AM Christiane Aviles APRN General Surgery at [place] Arrive at: Attendant Child Activity Area 4L [phone] Inpatient Provider Contact Information: For questions regarding this document or issues relating to this hospitalization on the Medical Service, please contact your inpatient physician through the [facility] [place] Historiography Professor . Issues after hours and on weekends [...] 101.3 F. The number for questions is [phone] before 5 PM weekdays and [phone] after 5 PM and weekends. Pain Medication: [...] will be mailed to you. Please call [phone] to confirm date and time of your [...] spent >30 minutes (Day of Discharge Code 89063) involved in the final examination of the [...] Cornell MSW - 02/02/2019 9:28 AM EDT PROCEDURE WRITER met with pt to discuss support network and transportation home at time of dc. Pt reports that her mother's best friend fortino menjivar, and pt BF will be picking her up today @ 12. Pt has identified otto as a consistent support in her life. Pt also connected with [facility] Program ([address] [place] [address] , [place] [address] ) for medication assisted treatment with methodone administration. Pt attends counseling services through [facility] ([address] [facility]- [phone]) Melissa Vinson MD - 02/01/2019 6:07 PM [...] RUQ tenderness No c/c/e Studies reviewed in eD. Remarkable for the following: LABS: Last 3 [...] Care: Full Code Team Pager( Coverage 29/03): #[phone] PCP: Linda Gunn APRN [phone] Attestation: IPI Certification I certify that I am a D-H credentialed attending provider with admitting privileges and that the patient meets or has met medical necessity to require an inpatient IPI level of care meeting a minimum of two midnights or is on the [facility] inpatient only procedure list (status C) [...] hct plt Recent Labs 01/31/19 0351 01/30/19 06 WBC 9.1 6.4 HGB 12.5 11.6* [...] Mg, Phos Recent Labs 01/31/19 0351 01/30/19 06 CALCIUM 9.1 8.4* PHOS -- 2.4* [...] Care: Full Code Team Pager( Coverage 29/03): #[phone] PCP: Linda Gunn APRN [phone] Attestation: IPI Certification I certify that I [...] 01/31/2019 Pertinent Endoscopic Procedures/Reports: ERCP 01/30/19: ?The fish house worker film was normal. The esophagus was ?successfully [...] Dr. Owusu. Elías Lake MD Gastroenterology Fellow #[id number] Attending Addendum: I have seen and examined the patient with Dr. Lake. We reviewed the medical record and pertinent studies and imaging. My evaluation and physical examination confirms the above findings. The assessment and plan were formulated in discussion with me at the time of the encounter and I agree with them as documented. Francisco Owusu MD [facility] [place]astroenter[place] Alexis Matrinez RN - 01/31/2019 6:26 AM EDT 0600 [...] Electronically signed by: Yrn Alvarenga Gastroenterology Fellow [facility] Pager [phone] 01/30/2019 Edenilson Rosales - 01/30/2019 4:41 AM EDT Inpatient Hospital Medicine - Admission Note Problem List: Active Hospital Problems Diagnosis ??? Choledocholithiasis Resolved Hospital Problems No resolved problems to display. There are no active non-hospital problems to display for this patient. ID: 28 y.o. Female [place] [facility] with [place] pain History of Present Illness: STUART Ina Orellana is a 28 y.o. female [...] file Gets together: Not on file Attends voodoo service: Not on file Active member of [...] Miscellaneous Notes Consult Note - Bryce Franco, GIBSON - 02/02/2019 10:04 AM EDT BIT Evaluation Referral source: Nursing referral Reason for referral: Anxiety Disruptive behaviors Opioid Use Disorder Relevant history: Ms Orellana is a 28-year-old woman, mother of four, admitted with RUQ pain, nausea, and vomiting, now s/p ERCP. History of childhood trauma, IVDU currently in recovery with counseling and in Methadone assisted treatment at [facility]- current dose 105 mg daily. Ms Orellana [...] with Methadone assisted treatment and counseling at [facility]. She also reports being engaged with psychiatric services at [facility] for over 10 years. Ms Orellana reports being motivated to abstain from IVDU with ongoing Methadone assisted treatment and counseling at [facility] and psychiatric services at [facility]. Additional substance use treamtment and relapse prevention resources were given and placed in her discharge instructions. Assessment: Ms Orellana is a 28-year-old woman, mother of four, admitted with RUQ pain, nausea, and vomiting, now s/p ERCP. History of childhood trauma, IVDU currently in recovery with counseling and in Methadone assisted treatment at [facility]- current dose 105 mg daily. Reports being stable on current Methadone dosage, no acute safety concerns. Motivated to maintain abstinence from IVDU with ongoing Methadone assisted treatment and counseling at [facility] and psychiatric services at [facility]. Additional substance use treamtment and relapse prevention resources were given and placed in her discharge instructions. Interventions delivered: Motivational interviewing Supportive therapy Plan: 1. Patient plans to maintain abstinence from IVDU with ongoing Methadone assisted treatment and counseling at [facility] and psychiatric services at [facility]. Medication Assisted Treatment Plan (select yes if referral reason indicates AUD, OUD or PATRIA - other): Yes. Substance use of focus: Opioid Was patient already on a medication to treat OUD prior to admission? Yes. Prescribed buprenorphine, street buprenorphine, methadone, naltrexone Outpatient MAT continued - [contact made on 01/31/19 per primary team (date) with program name/[email or web address] Sandy/[phone]]. Discharge Planning Needs: Additional substance use treatment [...] General surgery to sign off. Please page [phone] with questions/concerns Chirag Mayers MD Surgery Resident [...] needs known. VSS on RA. Pt c/o / pain in RUQ and umbilical region withsome improvement from scheduled medications, ice pops, PRN PO morphine and PRN IV morphine, see MAR.Incisions sites c/d/i, open to air, redness noted extending 1.5 inches down from umbilical incision,night PEDIATRIC ONCOLOGY NURSE notified. IV antibiotics infused as ordered. Pt [...] The doctor said I could have anotherdose. notified. Additional one-time dose given with good [...] Handling Outcome: Ongoing (Interventions Implemented as Appropriate) 01/31/1919901/31/19200502/01/19 0600 Jordan Fall Risk History of Falling [...] Hogan MD - 02/01/2019 10:07 AM EDT [facility] Operative Note Name: Ina Orellana : 1990 Date of surgery: 02/01/2019 Surgeon: Jorden Hogan MD wardrobe assistant: Chas Soni MD Preoperative dx: Ascending [...] a combination of careful blunt dissection, suction commanding officer homicide squad technique, and judicious electrocautery; critical view of [...] from the abdomen. A 5 mm clip user experience analyst was then used to place 2 clips [...] Ongoing (Interventions Implemented as Appropriate) 01/31/19 0200 01/31/19200502/01/19 0000 Jordan Fall Risk History of Falling [...] ERCP performed by Weston Dixon MD at [facility] Social History: Social History Socioeconomic [...] on phone: None Gets together: None Attends voodoo service: None Active member of club or [...] lap cholecystectomy tomorrow. Please keep NPO @ MN. Risks and benefits discussed with patientand she [...] 11.6* PLATELET 292 278 Recent Labs 01/31/19 03501/30/19 0605 IMMGRANPCT 0.30 0.20 NEUTROABS 8.14* 4.50 MCV 86.2 84.9 Chemistry: Recent Labs 01/31/19 03501/30/19 0605 NA 140 141 K 4.2 3.5 CL 106 104 CO2 23 23 BUN 4* 6* CREATININE 0.70 0.63* GLUCOSE 217* 70 ANIONGAP 11 14 Recent Labs 01/31/19 03501/30/19 0605 CALCIUM 9.1 8.4* MAGNESIUM -- 0.73 PHOS -- 2.4* LFT's: Recent Labs 01/31/19 0351 01/30/19 0605 PROT 7.1 6.8 ALKPHOS 244* 235* BILITOT 5.2* 6.8* BILIDIR 4.1* 5.7* AST 78* 73* ALT 124* 128* Coags: Recent Labs 01/30/19 0605 PT 12.6* INR 1.1 PTT 38* Cardiac enzymes: No results for input(s): TROPONINT, CK, PROBNP in the last 168 hours. Endocrine: No results for input(s): TSH, CORTISOL in the last 7068 hours. Invalid input(s): HELLSZEKBQT3C Heme: No results for input(s): LDH, HAPTOGLOBIN, URICACID in the last 168 hours. No results for input(s): FERRITIN, IRON, TIBC, IRONSAT, SOLTRNRCPT in the last 168 hours.] ABG: ABG (Arterial Blood Gas) No results found for: PHART, PO2ART, KAQ6YXU, UQC4NBD Microbiology: Microbiology Results (Last 30 days) No [...] Code Status: full Jorden Randall 01/31/2019 Pager [phone] Initial Assessments - Stacy De Oliveira RN [...] file Other Pertinent/Service Specific Information: Referral to [facility] Health/Prescription Coverage: Primary Insurance: MEDICAID [place] Secondary Insurance: N/A Prescription Coverage: Yes Preferred Pharmacy: unknown Other: n/a Primary Care Provider: Linda Gunn, GIBSON [phone] Patient/Caregiver Goals of Treatment: not discussed Potential Needs for Transition of Care: Rehab/SNF: Not indicated Home Health: Not indicated DME: None Dialysis: n/a Community Resources: n/a Transportation: patient to find friend/family, has [place] medicaid and came from other hospital via ambulance Other: n/a Anticipated Barriers to Discharge/Special Considerations: None identified. Referral to PROCEDURE WRITER due to hxIV drug use on methadone. [...] care planning. Stacy De Oliveira RN Pager: [phone] Plan of Care - Donita Fraser RN [...] ??? sodium chloride 0.9% 1,000 mL (01/30/19 5874) hydrOXYzine, sodium chloride 0.9 %, lidocaine, ondansetron [...] file Gets together: Not on file Attends voodoo service: Not on file Active member of [...] XR ERCP Imaging Storage Only Routine Once PA N (for Radiant use) for 1 Occurrenc es starting 01/30/2019 unti l 01/30/2019 documented as of this encounter Procedures Procedure Name Priority Date/Time Associated Comments Diagnosis HEMOGRAM Routine 02/02/2019 6:06 AM Results f or this EDT procedure are i n the results section. DIFFERENTIAL, Routine 02/02/2019 6:06 AM Results for this AUTOMATED EDT procedure are i n the results section. CBC (WITH DIFF) Routine 02/02/2019 6:06 AM EDT HEPATIC FUNCTION Routine 02/02/2019 6:06 AM Resul ts for this PANEL EDT procedure are i n the results section. BASIC METABOLIC PANEL Routine 02/02/2019 6:06 AM Results for this (NON-FASTING) EDT procedure are in the results section. SURGICAL PATHOLOGY Routine 02/01/2019 10:14 Resul ts for this REPORT AM EDT procedure are i n the results section. SPECIMEN TO PATHOLOGY Routine 02/01/2019 9:46 AM Results for this EDT procedure are i n the results section. XR FLUORO NO RAD <1HR Routine 02/01/2019 9:44 AM Results for this - OR USE EDT procedure are i n the results section. ABORH RECHECK STATUS Routine 02/01/2019 6:20 AM R esults for this EDT procedure are i n the results section. HEMOGRAM Routine 02/01/2019 6:20 AM Results f or this EDT procedure are i n the results section. DIFFERENTIAL, Routine 02/01/2019 6:20 AM Results for this AUTOMATED EDT procedure are i n the results section. ABO/RH TYPING Routine 02/01/2019 6:20 AM Results for this EDT procedure are i n the results section. CBC (WITH DIFF) Routine 02/01/2019 6:20 AM EDT ANTIBODY SCREEN Routine 02/01/2019 6:20 AM Result s for this EDT procedure are i n the results section. TYPE AND SCREEN Routine 02/01/2019 6:20 AM ([facility]SABA[place] EDT HEPATIC FUNCTION Routine 02/01/2019 6:20 AM Resul ts for this PANEL EDT procedure are i n the results section. BASIC METABOLIC PANEL Routine 02/01/2019 6:20 AM Results for this (NON-FASTING) EDT procedure are in the results section. C. DIFFICILE SCREEN Routine 01/31/2019 6:13 AM Re sults for this EDT procedure are i n the results section. HEMOGRAM Routine 01/31/2019 3:51 AM Results f or this EDT procedure are i n the results section. DIFFERENTIAL, Routine 01/31/2019 3:51 AM Results for this AUTOMATED EDT procedure are i n the results section. CBC (WITH DIFF) Routine 01/31/2019 3:51 AM EDT HEPATIC FUNCTION Routine 01/31/2019 3:51 AM Resul ts for this PANEL EDT procedure are i n the results section. BASIC METABOLIC PANEL Routine 01/31/2019 3:51 AM Results for this (NON-FASTING) EDT procedure are in the results section. ERCP 01/30/2019 11:[address] Rosales AM EDT ERCP Routine 01/30/2019 11:09 Results for this AM EDT procedure are i n the results section. BLOOD CULTURE STAT 01/30/2019 7:21 AM Results for this EDT procedure are i n the results section. HEMOGRAM Routine 01/30/2019 6:05 AM Results f or this EDT procedure are i n the results section. DIFFERENTIAL, Routine 01/30/2019 6:05 AM Results for this AUTOMATED EDT procedure are i n the results section. HEPATITIS C RNA, Routine 01/30/2019 6:05 AM Resul ts for this QUANTITATIVE, PCR EDT procedure are in the results section. BLOOD CULTURE STAT 01/30/2019 6:05 AM Results for this EDT procedure are i n the results section. APTT Routine 01/30/2019 6:05 AM Results f or this EDT procedure are i n the results section. PROTHROMBIN TIME Routine 01/30/2019 6:05 AM Resul ts for this EDT procedure are i n the results section. CBC (WITH DIFF) Routine 01/30/2019 6:05 AM EDT PHOSPHORUS Routine 01/30/2019 6:05 AM Results f or this EDT procedure are i n the results section. MAGNESIUM Routine 01/30/2019 6:05 AM Results f or this EDT procedure are i n the results section. LIPASE Routine 01/30/2019 6:05 AM Results f or this EDT procedure are i n the results section. HEPATIC FUNCTION Routine 01/30/2019 6:05 AM Resul ts for this PANEL EDT procedure are i n the results section. BASIC METABOLIC PANEL Routine 01/30/2019 6:05 AM Results for this (NON-FASTING) EDT procedure are in the results section. documented in this encounter Results Differential, Automated (02/02/2019 6:06 AM EDT) athologist Signature Neutrophils % 60.5 % [facility] Neutr Abs (ANC) 5.27 1.70 - [facility] 6.10 [facility] x10(3)[facility] LABORATORY Lymphocytes % 33.9 % [facility] Lymphocytes Abs 3.0 0.9 - 3.2 [facility] x10(3)/[facility] LABORATORY Monocytes % 4.5 % [facility] Monocyte Abs 0.4 0.3 - 0.9 [facility] x10(3)/[facility] LABORATORY Eosinophils % 0.2 % [facility] Eosinophils Abs 0.0 0.0 - 0.4 [facility] x10(3)/[facility] LABORATORY Basophils % 0.6 % [facility] Basophils Abs 0.0 0.0 - 0.1 [facility] x10(3)/[facility] LABORATORY Immature Gran % 0.30 % [facility] Comment: Immature granulocytes(IG's)percentage an d absolute count will include metamyelocytes, myelocytes, and promyelo cytes. Blood smears from CBCs yielding IG's will be scanned manually for concor dance. If this scan disagrees with the automated IG or if promyelocytes are not ed, a manual differential will be performed. Jaz Gran Abs 0.03 0.00 - 0.04 x10(3)/[facility] LABORATORY Specimen Anatomical Collection Method Collection Time Receive d Time (Source) Location / / Volume Laterality Blood specimen 02/02/2019 6:06 AM 019 6:46 (specimen) EDT AM EDT Resulting Agency Comment Spec In Lab Chas Soni MD HEMATOLOGY ORDERABLES Performing Organization Address City/State/ZIP Code [place] [address] (ABNORMAL) Hemogram (02/02/2019 6:06 AM EDT) Analysis Performed At Patho logist Time Signature WBC 8.7 4.0 - 9.5 [facility] x10(3)/[facility] LABORATORY RBC 3.81 (L) 4.00 - [place] 5.21 [facility] x10(6)/[facility] LABORATORY Hemoglobin 10.7 (L) 11.7 - [facility] 15.[facility] gm/dL [facility] Hematocrit 33.1 (L) 35.7 - [facility] 45.8 % [facility] MCV 86.9 82.6 - [facility] 94.4 [facility] LABORATORY MCH 28.1 27.1 - [facility] 32.0 pg [facility] MCHC 32.3 31.7 - [place] 35.0 gm/dL [facility] Platelets 266 145 - 357 [facility] x10(3)/[facility] LABORATORY RDWSD 49.6 (H) 37.0 - [place] 46.0 [facility] LABORATORY RDWCV 15.7 (H) 11.5 - [facility] 14.1 % [facility] LABORATORY MPV 11.1 7.6 - 12.9 [facility] LABORATORY nRBC % Auto 0.0 % [facility] nRBC Abs Auto 0.000 0.000 - [place] 0.000 [facility] x10(3)/[facility] LABORATORY Specimen Anatomical Collection Method Collection Time Receive d Time (Source) Location / / Volume Laterality Blood specimen 02/02/2019 6:06 AM 019 6:46 (specimen) EDT AM EDT Resulting Agency Comment Spec In Lab Chas Soni MD HEMATOLOGY ORDERABLES Performing Organization Address City/[facility]/ZIP Code [place] [address] (ABNORMAL) Hepatic Function Panel (02/02/2019 6:06 AM EDT) athologist Signature Total Protein 6.2 6.1 - 8.0 [facility] gm/dL [facility] Albumin 3.5 3.2 - 5.2 [facility] AST 30 0 - 30 [facility] unit/L [facility] ALT 71 (H) 0 - 30 [facility] unit/L [facility] Alk Phos 162 (H) 40 - 104 [facility] unit/L [facility] Total 1.4 (H) 0.2 - 1.3 [facility] Bilirubin mg/dL [facility] Bili, Direct 0.8 (H) 0.0 - 0.3 [facility] mg/dL [facility] LABOR[facility]ORY Specimen Anatomical Collection Method Collection Time Receive d Time (Source) Location / / Volume Laterality Blood specimen 02/02/2019 6:06 AM 019 6:46 (specimen) EDT AM EDT Resulting Agency Comment Spec In Lab Melissa Vinson MD CHEMISTRY ORDERABLES Performing Organization Address City/State/[place] [address] Basic Metabolic Panel (non-fasting) (02/02/2019 6:06 AM EDT) athologist [facility] Glucose Lvl 99 65 - 199 [facility] mg/dL [facility] Comment: Diabetes: >=200 mg/dL plus symp toms BUN 8 8 - 18 mg/dL [facility] Creatinine 0.70 0.70 - 1.20 mg/dL [facility] Sodium 141 135 - [...] estions. Chloride 102 98 - 107 mmol/L [facility] CO2 28 22 - 31 mmol/L [facility] Anion Gap 11 5 - 15 mmol/L [facility] Calcium 8.7 8.5 - 10.5 mg/dL [facility] Estimated GFR 117 >=60 mL/min/1.73 m?? [facility] Comment: The eGFR was calculated using the CKD-EP I equation. As with all creatinine based estimates of kidney function, eGFR values calculated with the CKD-EPI equation are not accurate in patients wi th acute kidney failure, extremes of body mass or the acutely ill. [email or web address]/[facility] [place] [place] eGFR 136 >=60 mL/min/1.73 m?? [facility] Comment: The eGFR was calculated using the CKD-EP I equation. As with all creatinine based estimates of kidney function, eGFR values calculated with the CKD-EPI equation are not accurate in patients wi th acute kidney failure, extremes of body mass or the acutely ill. [email or web address]/[facility] [place] Specimen Anatomical Collection Method Collection Time Receive d Time (Source) Location / / Volume Laterality Blood specimen 02/02/2019 6:06 AM 019 6:46 (specimen) EDT AM EDT Resulting Agency Comment Spec In Lab Melissa Vinson MD CHEMISTRY ORDERABLES Performing Organization Address City/State/ZIP [place] [address] Surgical Pathology Report (02/01/2019 10:14 AM EDT) Component Value Ref Test Analysis Performed At [facility] Range Method Time Signature Surgical [id number] ? Location: 3EST; 0330; A [facility] Report The signing pathologist has (i) examined the relevant preparation(s) for the [facility] specimen(s) and (ii) rendered or confirmed the diagnosis(es) . HOSPITAL LABORATORY . ?Surgic al Pathology DIAGNOSIS Gallbladder, cholecystectomy: - Hyalinizing chronic cholecystitis. - ??Cholelithiasis. Electronically signed by: ??Heriberto Maier MD Verified: ??02/03/2019 ?Pathologist Performed at: ??-[facility] Dept. of Pathology, [place], [place] CLINICAL INFORMATION Specimen Submitted: A - [...] The hepatic margin is inked black Sections/Processing: Public Area Attendant sections in 3 cassettes as follows: ?A1: ??cystic duct margin and customer contact representative mucosa. ?A2-A3: ??Additional sections of mucosa ??pps Specimen (Source) Anatomical Collection Method Collection Time Re ceived Time Location / / Volume Laterality 02/01/2019 10:14 AM EDT Jorden Hogan MD PATHOLOGY/CYTOLOGY ORDERABLE S Performing Organization Address City/[facility]/ZIP Code Phon e Number [address] Specimen to Pathology (02/01/2019 9:46 AM EDT) Specimen Anatomical Collection Method Collection Time Receive d Time (Source) Location / / Volume Laterality AP Specimen 02/01/2019 9:46 AM 9 9:46 EDT AM EDT Narrative [facility] LABORAT ORY - 02/01/2019 9:46 AM EDT Specimen requisition ordered. ??Separate Pathology report to follow Jorden Hogan MD PATHOLOGY/CYTOLOGY ORDERABLE S Performing Organization Address City/[facility] Phon e Number [address] XR Fluoro No Rad <1Hr - OR Use (02/01/2019 9:44 AM EDT) Specimen (Source) Anatomical Location Collection Method / Collectio n Time Received Time / Laterality Volume Narrative DH RAD - 02/01/2019 9:44 AM EDT This exam is auto-finalizing. No interpr etation was done. Jorden Hogan MD IMG FLUORO ORDERABLES Performing Organization Address City/[facility]/ZIP Code Phon e Number DH RAD DH RAD [place], [place] ABORH Recheck Status (02/01/2019 6:20 AM EDT) [facility] Method Time Signature ABORH Recheck Order Placed [facility] LABORATORY ABORH Type Complete [facility] LABORATORY Specimen Anatomical Collection Method Collection Time Receive d Time (Source) Location / / Volume Laterality Blood specimen 02/01/2019 6:20 AM 019 7:06 (specimen) EDT AM EDT Resulting Agency Comment Spec In Lab Melissa Vinson MD BLOOD BANK ORDERABLES Performing Organization Address City/[facility]/ZIP Code [place] [address] Antibody screen (02/01/2019 6:20 AM EDT) [facility] Method Time Signature Ab Screen Negative [facility] LABORATORY Expires at 02/04/2019 [facility] [id number] on: [facility] LABORATORY Specimen Anatomical Collection Method Collection Time Receive d Time (Source) Location / / Volume Laterality Blood specimen 02/01/2019 6:20 AM 019 7:06 (specimen) EDT AM EDT Resulting Agency Comment Spec In Lab Melissa Vinson MD BLOOD BANK ORDERABLES Performing Organization Address City/[facility]/ZIP Code Phon e Number [address] ABO/Rh Typing (02/01/2019 6:20 AM EDT) P athologist Signature ABORh Type O Pos [facility] LABORATORY Specimen Anatomical Collection Method Collection Time Receive d Time (Source) Location / / Volume Laterality Blood specimen 02/01/2019 6:20 AM 019 7:06 (specimen) EDT AM EDT Resulting Agency Comment Spec In Lab Melissa Vinson MD BLOOD BANK ORDERABLES Performing Organization Address City/State/[place] [address] (ABNORMAL) Differential, Automated (02/01/2019 6:20 AM EDT) [facility] Method Time Signature Neutrophils % 69.9 % [facility] LABORATORY Neutr Abs (ANC) 6.33 (H) 1.70 - [facility] 6.10 [facility] x10(3)/[facility] LABORATORY Lymphocytes % 25.9 % [facility] LABORATORY Lymphocytes Abs 2.4 0.9 - 3.2 [facility] x10(3)/[facility] LABORATORY Monocytes % 2.9 % [facility] LABORATORY Monocyte Abs 0.3 0.3 - 0.9 [facility] x10(3)/[facility] LABORATORY Eosinophils % 0.3 % [facility] LABORATORY Eosinophils Abs 0.0 0.0 - 0.4 [facility] x10(3)/[facility] LABORATORY Basophils % 0.4 % [facility] LABORATORY Basophils Abs 0.0 0.0 - 0.1 [facility] x10(3)/[facility] LABORATORY Immature Gran % 0.60 % [facility] LABORATORY Comment: Immature granulocytes(IG's)percentage an d absolute count will include metamyelocytes, myelocytes, and promyelo cytes. Blood smears from CBCs yielding IG's will be scanned manually for concor dance. If this scan disagrees with the automated IG or if promyelocytes are not ed, a manual differential will be performed. Jaz Gran Abs 0.05 (H) 0.00 - 0.04 x10(3)/[facility] LABORATORY Specimen Anatomical Collection Method Collection Time Receive d Time (Source) Location / / Volume Laterality Blood specimen 02/01/2019 6:20 AM 019 6:29 (specimen) EDT AM EDT Resulting Agency Comment Spec In Lab Edenilson Rosales MD HEMATOLOGY ORDERABLES Performing Organization Address City/[facility]/[place] [address] (ABNORMAL) Hemogram (02/01/2019 6:20 AM EDT) Analysis Performed At Patho logist Time Signature WBC 9.1 4.0 - 9.5 [facility] LABORATORY RBC 3.74 (L) 4.00 - [place] [facility] 5.21 [facility] x10(6)/[facility] LABORATORY Hemoglobin 10.7 (L) 11.7 - [place] [facility] 15.5 gm/dL [facility] LABORATORY Hematocrit 32.9 (L) 35.7 - [facility] 45.8 % [facility] LABORATORY MCV 88.0 82.6 - [facility] 94.4 [facility] LABORATORY MCH 28.6 27.1 - [place] [facility] 32.0 pg [facility] LABORATORY MCHC 32.5 31.7 - [place] [facility] 35.0 gm/dL [facility] LABORATORY Platelets 245 145 - 357 [facility] x10(3)/[facility] LABORATORY RDWSD 49.1 (H) 37.0 - [facility] APURVA 46.0 [facility] LABORATORY RDWCV 15.5 (H) 11.5 - [facility] AP[facility]VA 14.1 % [facility] LABORATORY MPV 10.6 7.6 - 12.9 [facility] LABORATORY nRBC % Auto 0.0 % [facility] LABORATORY nRBC Abs Auto 0.000 0.000 - [place] [facility] 0.000 [facility] x10(3)/[facility] LABORATORY Specimen Anatomical Collection Method Collection Time Receive d Time (Source) Location / / Volume Laterality Blood specimen 02/01/2019 6:20 AM 019 6:29 (specimen) EDT AM EDT Resulting Agency Comment Spec In Lab Edenilson Rosales MD HEMATOLOGY ORDERABLES Performing Organization Address City/[facility]/[place] [address] (ABNORMAL) Hepatic Function Panel (02/01/2019 6:20 AM EDT) athologist Signature Total Protein 6.0 (L) 6.1 - 8.0 [facility] gm/dL [facility] LABORATORY Albumin 3.3 3.2 - 5.2 [facility] gm/dL [facility] LABORATORY AST 33 (H) 0 - 30 [facility] unit/L [facility] LABORATORY ALT 88 (H) 0 - 30 [facility] unit/L [facility] LABORATORY Alk Phos 179 (H) 40 - 104 [facility] unit/L [facility] LABORATORY Total 1.8 (H) 0.2 - 1.3 [facility] Bilirubin mg/dL [facility] LABORATORY Bili, Direct 1.0 (H) 0.0 - 0.3 [facility] mg/dL [facility] LABORATORY Comment: result rechecked-es Specimen Anatomical Collection Method Collection Time Receive d Time (Source) Location / / Volume Laterality Blood specimen 02/01/2019 6:20 AM 019 6:29 (specimen) EDT AM EDT Resulting Agency Comment Spec In Lab Melissa Vinson MD CHEMISTRY ORDERABLES Performing Organization Address City/State/[place] [address] (ABNORMAL) Basic Metabolic Panel (non-fasting) (02/01/2019 6:20 AM EDT) athologist Signature Glucose Lvl 117 65 - 199 [facility] mg/dL [facility] LABORATORY Comment: Diabetes: >=200 mg/dL plus symp toms BUN 6 (L) 8 - 18 mg/dL [facility] LABORATORY Creatinine 0.80 0.70 - 1.20 mg/dL [facility] LABORATORY Sodium 143 135 - [...] Chloride 108 (H) 98 - 107 mmol/L [facility] LABORATORY CO2 24 22 - 31 mmol/L [facility] LABORATORY Anion Gap 11 5 - 15 mmol/L [facility] LABORATORY Calcium 8.6 8.5 - 10.5 mg/dL [facility] LABORATORY Estimated GFR 100 >=60 mL/min/1.73 m?? [facility] LABORATORY Comment: The eGFR was calculated using the CKD-EP I equation. As with all creatinine based estimates of kidney function, eGFR values calculated with the CKD-EPI equation are not accurate in patients wi th acute kidney failure, extremes of body mass or the acutely ill. [email or web address]/[facility] [place] eGFR 115 >=60 mL/min/1.73 m?? [facility] LABORATORY Comment: The eGFR was calculated using the CKD-EP I equation. As with all creatinine based estimates of kidney function, eGFR values calculated with the CKD-EPI equation are not accurate in patients wi th acute kidney failure, extremes of body mass or the acutely ill. http://[employer]/[facility] [place] Specimen Anatomical Collection Method Collection Time Receive d Time (Source) Location / / Volume Laterality Blood specimen 02/01/2019 6:20 AM 019 6:29 (specimen) EDT AM EDT Resulting Agency Comment Spec In Lab Melissa Vinson MD CHEMISTRY ORDERABLES Performing Organization Address City/State/ZIP [place] [address] C. Difficile Screen (01/31/2019 6:13 AM EDT) Analysis Performed At Patho logist Time Signature C Diff Screen Negative Negative [facility] LABORATORY Comment: C. diff ??Negative Clostridium [...] - GENERAL ORDER CURTIS Performing Organization Address City/[facility]/ZIP Code [place] [address] (ABNORMAL) Hepatic Function Panel (01/31/2019 3:51 AM EDT) P athologist Signature Total Protein 7.1 6.1 - 8.0 [facility] gm/dL [facility] LABORATORY Albumin 3.7 3.2 - 5.2 [place] [facility] gm/dL [facility] LABORATORY AST 78 (H) 0 - 30 [facility] unit/L [facility] LABORATORY ALT 124 (H) 0 - 30 [facility] unit/L [facility] LABORATORY Alk Phos 244 (H) 40 - 104 [facility] unit/L [facility] LABORATORY Total 5.2 (H) 0.2 - 1.3 [place] [place] [facility] Bilirubin mg/dL [facility] LABORATORY Bili, Direct 4.1 (H) 0.0 - 0.3 [facility] mg/dL [facility] LABORATORY Specimen Anatomical Collection Method Collection Time Receive d Time (Source) Location / / Volume Laterality Blood specimen 01/31/2019 3:51 AM 019 4:02 (specimen) EDT AM EDT Resulting Agency Comment Spec In Lab Edenilson Rosales MD CHEMISTRY ORDERABLES Performing Organization Address City/[facility]/ZIP Code Phon e Number [address] (ABNORMAL) Differential, Automated (01/31/2019 3:51 AM EDT) Patholo gist Method Time Signature Neutrophils % 89.3 % [facility] LABORATORY Neutr Abs (ANC) 8.14 (H) 1.70 - [facility] 6.10 [facility] x10(3)/[facility] L LABORATORY Lymphocytes % 9.4 % [facility] LABORATORY Lymphocytes Abs 0.9 0.9 - 3.2 [facility] x10(3)/[facility] LABORATORY Monocytes % 0.9 % [facility] LABORATORY Monocyte Abs 0.1 (L) 0.3 - 0.9 [facility] x10(3)/[facility] LABORATORY Eosinophils % 0.0 % [facility] LABORATORY Eosinophils Abs 0.0 0.0 - 0.4 [facility] x10(3)/[facility] LABORATORY Basophils % 0.1 % [facility] LABORATORY Basophils Abs 0.0 0.0 - 0.1 [facility] x10(3)/[facility] LABORATORY Immature Gran % 0.30 % [facility] LABORATORY Comment: Immature granulocytes(IG's)percentage an d absolute count will include metamyelocytes, myelocytes, and promyelo cytes. Blood smears from CBCs yielding IG's will be scanned manually for concor dance. If this scan disagrees with the automated IG or if promyelocytes are not ed, a manual differential will be performed. Jaz Gran Abs 0.03 0.00 - 0.04 x10(3)/[facility] LABORATORY Specimen Anatomical Collection Method Collection Time Receive d Time (Source) Location / / Volume Laterality Blood specimen 01/31/2019 3:51 AM 019 4:02 (specimen) EDT AM EDT Resulting Agency Comment Spec In Lab Edenilson Rosales MD HEMATOLOGY ORDERABLES Performing Organization Address City/State/ZIP Code Phon e Number [place] [id number] (ABNORMAL) Hemogram (01/31/2019 3:51 AM EDT) Analysis Performed At Patho logist Time Signature WBC 9.1 4.0 - 9.5 [facility] x10(3)/[facility] LABORATORY RBC 4.41 4.00 - [facility] 5.21 [facility] x10(6)/[facility] LABORATORY Hemoglobin 12.5 11.7 - [facility] 15.5 gm/dL [facility] LABORATORY Hematocrit 38.0 35.7 - [facility] 45.8 % [facility] LABORATORY MCV 86.2 82.6 - [facility] 94.4 fL [facility] LABORATORY MCH 28.3 27.1 - [facility] 32.0 pg [facility] LABORATORY MCHC 32.9 31.7 - [facility] 35.0 gm/dL [facility] LABORATORY Platelets 292 145 - 357 [facility] x10(3)/[facility] LABORATORY RDWSD 46.7 (H) 37.0 - [facility] 46.0 [facility] LABORATORY RDWCV 14.6 (H) 11.5 - [facility] 14.1 % [facility] LABORATORY MPV 11.0 7.6 - 12.9 [facility] LABORATORY nRBC % Auto 0.0 % [facility] LABORATORY nRBC Abs Auto 0.000 0.000 - [facility] 0.000 [facility] x10(3)/[facility] LABORATORY Specimen Anatomical Collection Method Collection Time Receive d Time (Source) Location / / Volume Laterality Blood specimen 01/31/2019 3:51 AM 019 4:02 (specimen) EDT AM EDT Resulting Agency Comment Spec In Lab Edenilson Rosales MD HEMATOLOGY ORDERABLES Performing Organization Address City/State/[place] [address] (ABNORMAL) Basic Metabolic Panel (non-fasting) (01/31/2019 3:51 AM EDT) P athologist Signature Glucose Lvl 217 (H) 65 - 199 [facility] mg/dL [facility] LABORATORY Comment: delta result rechecked-KLA Diabetes: >=200 mg/dL plus symptoms BUN 4 (L) 8 - 18 mg/dL [facility] LABORATORY Creatinine 0.70 0.70 - 1.20 mg/dL [facility] LABORATORY Sodium 140 135 - [...] estions. Chloride 106 98 - 107 mmol/L [facility] LABORATORY CO2 23 22 - 31 mmol/L [facility] LABORATORY Anion Gap 11 5 - 15 mmol/L [facility] LABORATORY Calcium 9.1 8.5 - 10.5 mg/dL [facility] LABORATORY Estimated GFR 117 >=60 mL/min/1.73 m?? [facility] LABORATORY Comment: The eGFR was calculated using the CKD-EP I equation. As with all creatinine based estimates of kidney function, eGFR values calculated with the CKD-EPI equation are not accurate in patients wi th acute kidney failure, extremes of body mass or the acutely ill. http://[employer]/[facility] [place]nk eGFR 136 >=60 mL/min/1.73 m?? [facility] LABORATORY Comment: The eGFR was calculated using the CKD-EP I equation. As with all creatinine based estimates of kidney function, eGFR values calculated with the CKD-EPI equation are not accurate in patients wi th acute kidney failure, extremes of body mass or the acutely ill. [email or web address] Specimen Anatomical Collection Method Collection Time Receive d Time (Source) Location / / Volume Laterality Blood specimen 01/31/2019 3:51 AM 019 4:02 (specimen) EDT AM EDT Resulting Agency Comment Spec In Lab Melissa Vinson MD CHEMISTRY ORDERABLES Performing Organization Address City/State/[place] [address] ERCP (01/30/2019 11:09 AM EDT) Component Value Ref Test Analysis Performed At [facility] Range Method Time Signature ERCP [facility] PROVATION Endoscopy Procedure Date: 01/30/2019 11:09 AM ? Patient Name: Ina Orellana ? Date of : 1990 ? Age: 28 ? Order #: [id number] ? Instrument Name: [id number] ? Procedure: ? ERCP Indications: ? Bile duct stone(s), Abdominal pain of ? 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 Elevated liver enzymes, dilat ed CBD ? on CT scan Providers: ? Weston Dixon MD, Sonia Castro, ? Imtiaz Bia, MINDA, Lyudmila Stark, ? Facsimile Machine Operator Referring MD: ? Medicines: ? Propofol per [...] the procedure well. ? Findings: ? The fish house worker film was normal. The esophagus was ? [...] Unknown GENERAL SURGICAL ORDERABLES Performing Organization Address [facility] Phon e Number PROVATION Blood culture (01/30/2019 7:21 AM EDT) Patholo gist Method Time Signature Blood Culture No growth [facility] M[facility] at 5 days. [facility] LABORATORY Specimen Anatomical Collection Method Collection Time Receive d Time (Source) Location / / Volume Laterality Blood specimen STRUCTURE OF RIGHT 01/30/2019 7:21 AM 0 01/30/2019 7:21 (specimen) FOREARM / Unknown EDT AM EDT Resulting Agency Comment Spec In Lab Edenilson Rosales MD MICROBIOLOGY - BLOOD ORDERAB LES Performing Organization Address [facility] [place] [address] Lipase (01/30/2019 6:05 AM EDT) P athologist Signature Lipase 9 0 - 60 [facility] unit/L [facility] LABORATORY Specimen Anatomical Collection Method Collection Time Receive d Time (Source) Location / / Volume Laterality Blood specimen Venous Draw / 01/30/2019 6:05 AM 2018 6:28 (specimen) Unknown EDT AM EDT Resulting Agency Comment Spec In Lab Edenilson Rosales MD CHEMISTRY ORDERABLES Performing Organization Address [facility] Phon e Number [address] Differential, Automated (01/30/2019 6:05 AM EDT) P athologist Signature Neutrophils % 70.2 % [facility] LABORATORY Neutr Abs (ANC) 4.50 1.70 - [facility] 6.10 [facility] x10(3)/[facility] LABORATORY Lymphocytes % 22.7 % [facility] LABORATORY Lymphocytes Abs 1.4 0.9 - 3.2 [facility] x10(3)/[facility] LABORATORY Monocytes % 4.5 % [facility] LABORATORY Monocyte Abs 0.3 0.3 - 0.9 [facility] x10(3)/[facility] LABORATORY Eosinophils % 1.9 % [facility] LABORATORY Eosinophils Abs 0.1 0.0 - 0.4 [facility] x10(3)/[facility] LABORATORY Basophils % 0.5 % [facility] LABORATORY Basophils Abs 0.0 0.0 - 0.1 [facility] x10(3)/[facility] LABORATORY Immature Gran % 0.20 % [facility] LABORATORY Comment: Immature granulocytes(IG's)percentage an d absolute count will include metamyelocytes, myelocytes, and promyelo cytes. Blood smears from CBCs yielding IG's will be scanned manually for concor dance. If this scan disagrees with the automated IG or if promyelocytes are not ed, a manual differential will be performed. Jaz Gran Abs 0.01 0.00 - 0.04 x10(3)/[facility] LABORATORY Specimen Anatomical Collection Method Collection Time Receive d Time (Source) Location / / Volume Laterality Blood specimen 01/30/2019 6:05 AM 019 6:26 (specimen) EDT AM EDT Resulting Agency Comment Spec In Lab Edenilson Rosales MD HEMATOLOGY ORDERABLES Performing Organization Address City/State/[place] [address] (ABNORMAL) Hemogram (01/30/2019 6:05 AM EDT) Analysis Performed At Patho logist Time Signature WBC 6.4 4.0 - 9.5 [facility] x10(3)/[facility] LABORATORY RBC 4.16 4.00 - [place] [place] 5.21 [facility] x10(6)/[facility] LABORATORY Hemoglobin 11.6 (L) 11.7 - [place] [place] 15.5 gm/dL [facility] LABORATORY Hematocrit 35.3 (L) 35.7 - [place] [place] 45.8 % [facility] LABORATORY MCV 84.9 82.6 - [place] [place] [facility] 94.4 [facility] LABORATORY MCH 27.9 27.1 - [place] 32.0 pg [facility] LABORATORY MCHC 32.9 31.7 - [place] MANTILL[place]OCK 35.0 gm/dL [facility] LABORATORY Platelets 278 145 - 357 [facility] x10(3)/[facility] LABORATORY RDWSD 45.7 37.0 - [place] [facility] 46.0 [facility] LABORATORY RDWCV 14.6 (H) 11.5 - [facility] 14.1 % [facility] LABORATORY MPV 10.5 7.6 - 12.9 [facility] LABORATORY nRBC % Auto 0.0 % [facility] LABORATORY nRBC Abs Auto 0.000 0.000 - [place] [facility] 0.000 [facility] x10(3)/[facility] LABORATORY Specimen Anatomical Collection Method Collection Time Receive d Time (Source) Location / / Volume Laterality Blood specimen 01/30/2019 6:05 AM 019 6:26 (specimen) EDT AM EDT Resulting Agency Comment Spec In Lab Edenilson Rosales MD HEMATOLOGY ORDERABLES Performing Organization Address City/State/[place] [address] (ABNORMAL) Hepatic Function Panel (01/30/2019 6:05 AM EDT) P athologist Signature Total Protein 6.8 6.1 - 8.0 [place] [facility] gm/dL [facility] LABORATORY Albumin 3.8 3.2 - 5.2 [place] [facility] gm/dL [facility] LABORATORY AST 73 (H) 0 - 30 [facility] unit/L [facility] LABORATORY ALT 128 (H) 0 - 30 [facility] unit/L [facility] LABORATORY Alk Phos 235 (H) 40 - 104 [facility] unit/L [facility] LABORATORY Total 6.8 (H) 0.2 - 1.3 [facility] Bilirubin mg/dL [facility] LABORATORY Bili, Direct 5.7 (H) 0.0 - 0.3 [facility] mg/dL [facility] LABORATORY Specimen Anatomical Collection Method Collection Time Receive d Time (Source) Location / / Volume Laterality Blood specimen 01/30/2019 6:05 AM 019 6:26 (specimen) EDT AM EDT Resulting Agency Comment Spec In Lab Edenilson Rosales MD CHEMISTRY ORDERABLES Performing Organization Address City/[facility] Code Phon e Number [address] Hepatitis C RNA, quantitative, PCR (01/30/2019 6:05 AM EDT) Component Value Ref Test Analysis Performed At [facility] Range Method Time Signature HCV Viral <12 IU/mL [facility] LABORATORY HCV Viral Result: <12 IU/mL(Target Not Detected) [facility] Indication for Study: Hepatitis C Infection [facility] Analysis: The [employer] RealTime HCV assay is an in vitro reverse hotel staff member LABORATORY polymerase chain reaction (RT-PCR)for the quantitation [...] Rosales MD IMMUNOLOGY ORDERABLES Performing Organization Address City/[facility] [place] [address] Blood culture (01/30/2019 6:05 AM EDT) [facility] [employer] Method Time Signature Blood Culture No growth JOSÉ LUIS MIXON at 5 days. [facility] LABORATORY Specimen Anatomical Collection Method Collection Time Receive d Time (Source) Location / / Volume Laterality Blood specimen STRUCTURE OF LEFT 01/30/2019 6:05 AM 7:21 (specimen) HAND / Unknown EDT AM EDT Resulting Agency Comment Spec In Lab Edenilson Rosales MD MICROBIOLOGY - BLOOD ORDERAB LES Performing Organization Address City/[facility]/ZIP [place] [address] (ABNORMAL) APTT (01/30/2019 6:05 AM EDT) P athologist Signature PTT 38 (H) 25 - 37 sec [facility] LABORATORY Comment: The PTT is NOT [...] Rosales MD HEMATOLOGY ORDERABLES Performing Organization Address City/[facility]/ZIP [place] [address] (ABNORMAL) Prothrombin Time (01/30/2019 6:05 AM EDT) P athologist Signature PT 12.6 (H) 9.4 - 12.5 [facility] LABORATORY INR 1.1 [facility] LABORATORY Comment: An INR <2.0 indicates [...] Rosales MD HEMATOLOGY ORDERABLES Performing Organization Address City/[facility]/ZIP Code Phon e Number [address] (ABNORMAL) Phosphorus (01/30/2019 6:05 AM EDT) athologist Signature Phosphorus 2.4 (L) 2.5 - 4.5 [facility] mg/dL [facility] LABORATORY Specimen Anatomical Collection Method Collection Time Receive d Time (Source) Location / / Volume Laterality Blood specimen 01/30/2019 6:05 AM 019 6:26 (specimen) EDT AM EDT Resulting Agency Comment Spec In Lab Edenilson Rosales MD CHEMISTRY ORDERABLES Performing Organization Address City/[facility]/ZIP Code Phon e Number [address] Magnesium (01/30/2019 6:05 AM EDT) athologist Signature Magnesium 0.73 0.69 - 1.07 [facility]/L [facility] LABORATORY Specimen Anatomical Collection Method Collection Time Receive d Time (Source) Location / / Volume Laterality Blood specimen 01/30/2019 6:05 AM 019 6:26 (specimen) EDT AM EDT Resulting Agency Comment Spec In Lab Edenilson Rosales MD CHEMISTRY ORDERABLES Performing Organization Address City/[facility]/ZIP [facility] [place] [address] (ABNORMAL) Basic Metabolic Panel (non-fasting) (01/30/2019 6:05 AM EDT) athologist Signature Glucose Lvl 70 65 - 199 [facility] mg/dL [facility] LABORATORY Comment: Diabetes: >=200 mg/dL plus symp toms BUN 6 (L) 8 - 18 mg/dL [facility] LABORATORY Creatinine 0.63 (L) 0.70 - 1.20 mg/dL [facility] LABORATORY Sodium 141 135 - [...] estions. Chloride 104 98 - 107 mmol/L [facility] LABOR[facility] CO2 23 22 - 31 mmol/L [facility]OR[facility] Anion Gap 14 5 - 15 mmol/L [facility] LABORATORY Calcium 8.4 (L) 8.5 - 10.5 mg/dL [facility] LABORATORY Estimated GFR 121 >=60 mL/min/1.73 m?? [facility] LABORATORY Comment: The eGFR was calculated using the CKD-EP I equation. As with all creatinine based estimates of kidney function, eGFR values calculated with the CKD-EPI equation are not accurate in patients wi th acute kidney failure, extremes of body mass or the acutely ill. http://[employer]/[facility] [place] eGFR 140 >=60 mL/min/1.73 m?? [facility] LABORATORY Comment: The eGFR was calculated using the CKD-EP I equation. As with all creatinine based estimates of kidney function, eGFR values calculated with the CKD-EPI equation are not accurate in patients wi th acute kidney failure, extremes of body mass or the acutely ill. http://[employer]/[facility] [place] Specimen Anatomical Collection Method Collection Time Receive d Time (Source) Location / / Volume Laterality Blood specimen 01/30/2019 6:05 AM 019 6:26 (specimen) EDT AM EDT Resulting Agency Comment Spec In Lab Edenilson Rosales MD CHEMISTRY ORDERABLES Performing Organization Address City/State/[place] [address] documented in this encounter [...] Given 01/30/2019 8:51 PM EDT 50 mg ketorolac (TORADOL) injection 30 mg Given 02/02/2019 [...] dose., Routine, Name of patient's Methadone clinic? [facility], Methadone clinic phone: , Date last Methadone dose was given at the Outpatient Clinic? 01/29/2019, Dose of Methadone provided at the clinic? 105 mg daily Given 02/01/2019 5:11 AM EDT 105 mg morphine 4 mg/mL injection 4-8 mg Given 02/02/2019 2:32 AM EDT 4 mg 4-8 mg, Intravenous, EVERY 4 HOURS PRN, Starting on Wed02/01/19 at 1409, Until Wed02/02/19 at 1529, Severe pain not relieved with [...] PRN, Starting on Wed01/30/19 at 0452, Until Wed02/02/19 at 1529, Nausea, Start with 4mg and [...] RN) 8 mg, Intravenous, EVERY 6 HOURS SCHEDUL ED, First dose on Wed01/30/19 at 1300, Until Discontinued, Routine famotidine (PEPCID) tablet 20 mg (COMPLETED) 1044 (Giv en - Provider: Emerald Garcia, MINDA) 20 mg, Oral, ONCE, 1 dose, Wed01/31/19 at 1045, STAT gabapentin (NEURONTIN) capsule 300 mg (CANCELED) 0839 (Given - Provider: Emerald Garcia, MINDA)1452 (Given - Provider: Emerald Garcia RN) 300 mg, Oral, 3 TIMES DAILY, First dose on Wed01/30/19 at 0900, Until Discontinued, Routine gabapentin (NEURONTIN) capsule 300 mg 2131 (Given - Pr ovider: Angy Pritchett RN) 0511 (Given - Provider: Angy Pritchett RN)0734 (NOV Hold - Provider: Admin Adt - Reason: Transfer to a Procedural area)1244 (NOV Unhold - Provider: Admin Adt)1327 (Given - Provider: Tere Sen RN) 0514 (Given - Provider: Peggy Hernandez RN) 300 mg, Oral, EVERY 8 HOURS SCHEDULED, F irst dose on Wed01/31/19 at 2200, Until Discontinued, Routine 2109 (Given - Provider: Peggy Hernandez RN) ketorolac (TORADOL) injection 30 mg (COMPLETED) 1321 (Given - Provider: Tere Sen RN) 30 mg, Intravenous, ONCE, 1 dose, Wed02/01/19 at 1330, STAT ketorolac (TORADOL) injection 30 mg 2014 (Given - Provider: Peggy Hernandez RN) 010 (Given - Provider: Peggy Hernandez RN)0740 (Given - Provider: Tere Sen RN) 30 mg, Intravenous, EVERY 6 HOURS, 5 [...] - Pro vider: Emerald Garcia RN) 0734 ([facility] Hold - Provider: Admin Adt - R maryellen: Transfer to a Procedural area)0900 (Given - Provider: Tere Sen RN)1244 (NOV Unhold - Provider: Admin Adt) 1007 [...] Peggy Hernandez RN)0919 (Stopped - Provider: Tere Sen RN) 3.375 g, Intravenous, EVERY 8 HOURS, Fir st dose on Wed01/30/19 at 1315, Until Discontinued, Administer over 4 Hours, Warning Vesicant/Irritant Medication Do not administer or Y-site with lactated 2131 (New Bag - Provider: Angy Pritchett RN) 1244 (NOV Unhold - Provider: Admin Adt)1 328 (New Bag - Provider: Tere Sen RN)1728 (Stopped - Provider: Tere Sen, MINDA)2112 (New Bag - Provider: Peggy Hernandez RN) ringers., Indication for (Active or Suspected): GI/Intra-abdomin al sodium chloride 0.9 % flush 5 mL 0842 (Given - Provide r: Emerald Garcia RN)2006 (Given - Provider: Angy Pritchett RN) 0734 (NOV Hold - Provider: Admin Adt - Reason: Transfer to a Procedural area)0900 (Automatically Held - Provider: Admin Adt)1244 (MAR Unhold - Provider: Admin Adt)2100 (Given - Provider: Peggy Hernandez , RN) 1007 (Given - Provider: Tere cano, MINDA) 5 mL, Intravenous, 2 TIMES DAILY, First dose on Wed01/30/19 at 0900, Until Discontinued, Routine sulfamethoxazole-trimethoprim (BACTRIM DS) 800-160 mg per tablet 1 tablet 1148 (Given - Provider: Dilma Newsome, MINDA) 1 tablet, Oral, EVERY 12 HOURS SCHEDULED [...] acetaminophen (TYLENOL) tablet 650 mg 07 34 (MAR Hold - Provider: Admin Adt - Reason: Transfer to a Procedural area)1044 (MAR Unhold - Provider: Iraida Townsend, RN)1127 (Given - Provider: Stacy Whyte, MINDA)1855 [...] HOURS PRN, Starting Wed01/30/19 at 0451, Until Wed02/02/19 at 1529, Itching, Routine iohexol (OMNIPAQUE) 300 mg/mL solution (CANCELED) 0944 (Given - Provider: Jorden Hogan MD) ONCE PRN, Starting Wed02/01/19 at 0944, Until Wed02/02/19 at 1529, Intra- Operative (Intra-Procedure), Routine lidocaine (XYLOCAINE) 10 mg/mL (1 %) injection 3 mg 0734 (NOV Hold - Provider: Admin Adt - Reason: Transfer to a Procedural area)1244 ([facility] Unhold - Provider: Admin Adt) 3 mg (0.3 mL), Subcutaneous, ONCE PRN, 1 dose, Starting Wed01/30/19 at 0452, Until Wed02/02/19 at 1529, for discomfort with PIV insertion, Routine lidocaine (XYLOCAINE) 10 mg/mL (1 %) injection (CANCELED) 0821 (Canceled Entry - Provider: Jorden Hogan MD)1011 (Given - Provider: Jorden Hogan MD) ONCE PRN, Starting Wed02/01/19 at 0821, Until Wed02/02/19 at 1529, Intra- Operative (Intra-Procedure), Routine loperamide [...] mg, Oral, EVERY 4 HOURS PRN, Starting Wed02/01/19 at 1315, Until Negin 02/02/19 at 1529, Pain, Moderate-severe pain (6/10 or higher), Routine ondansetron (ZOFRAN) injection 4-8 mg(Linked Group 1) 1742 (See Alternative - Provider: Emerald Garcia RN) 0734 (NOV Hold - Provider: Admin Adt - R maryellen: Transfer to a Procedural area)1244 (NOV Unhold - Provider: Admin Adt) 4-8 mg, Intravenous, EVERY 8 HOURS PRN, Starting Wed01/30/19 at 0452, Until Negin 02/02/19 at 1529, Nausea, Start with 4mg and if ineffective in 30 minutes, give an additional 4mg If multiple antiemetics are ordered, give ondansetron first. ondansetron (ZOFRAN) tablet 4-8 mg(Linked Group 1) 174 2 (Given - Provider: Emerald Garcia RN) 0734 (NOV Hold - Provider: Admin Adt - R maryellen: Transfer to a Procedural area)1244 (NOV Unhold - Provider: Admin Adt) 4-8 mg, [...] first.
documented in this encounter Care Teams Primary Care Provider Relationship Specialty Start Date End Date Linda Gunn APRN PCP - General Family Medicine 01/30/19 [address] [place] [address] documented as of this encounter
--- OUTSIDE RECORDS SUMMARY | 2022-06-12 06:21 | XMS_ITS | Encounter Summary ---
:1990 Author Organization [facility] Address [address] [place] [address] Care Team Providers Name Role Phone Timothy Bliss MD Primary Care Provider Encounter Details Date Type Department Care Team Description 02/14/2018 Phlebotomy Only [facility] Manager Coding, snf (current) use of antibiotics; - Main [place] [facility] Endocarditis of prosthetic v alve, subsequent encounter; [address] [facility] Chronic hepatitis C without hepatic coma ([facility]) [place] [address] Social History Tobacco Use Types Packs/Day Years Used Date Former Smoker Cigarettes 0.25 Quit: 12/09/19 18 Smokeless Tobacco: Never Used Alcohol Use Standard Drinks/Week Comments No 0 (1 standard drink = 0.6 oz pure alcoho l) Sex Assigned at Date Recorded Not on file documented as of this encounter Functional Status Functional Status Response Date of Assessment Are you deaf or do you have serious difficulty hearing? No 12/07/2017 Are you blind or do you have serious difficulty seeing, No 12/07/2017 even when wearing glasses? Do you have serious difficulty walking or climbing No 12/07/2017 stairs? (5 years old or older) Do you have difficulty dressing or bathing? (5 years old No 12/07/2017 or older) Because of a physical, mental, or emotional condition, do No 12/07/2017 you have difficulty doing errands alone such as visiting a doctor's office or shopping? (15 years old or older) Cognitive Status Response Date of Assessment Because of a physical, mental, or emotional condition, do No 12/07/2017 you have serious difficulty concentrating, remembering, or making decisions? (5 years old or older) documented as of this encounter Plan of Treatment Not on filedocumented as of this encounter Procedures Procedure Name Priority Date/Time Associated Comments Diagnosis HCV RNA QUANT WITH Routine 02/14/2018 11:57 Chronic hepatitis C Results for this REFLEX TO GENOTYPE EDT without hepatic proced ure are in coma ([facility]) the results section. 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 subsequent encounter CREATININE Routine 02/14/2018 11:57 snf (current) Resu lts for this EDT use of antibioti cs procedure are in Endocarditis of the results prosthetic valve, section. subsequent encounter documented in this encounter Results HCV RNA QUANT WITH REFLEX TO GENOTYPE (02/14/2018 11:57 EDT) HCV RNA Detect Undetected Undetected IU/mL [facility] Comment: CENTER Reference Range: ??Undetected LABORATORY The quantification range of this assay is 15 SERVICES IU/mL to 100,000,000 IU/mL. Testing was performed by the Jann[employer] Ampliprep/Jannet TaqMan HCV v2.0 ([employer] Specimen Blood specimen (specimen) - Blood Performing Organization Address City/[facility] e Number [facility] LABORATORY [address] [phone] SERVICES CREATININE (02/14/2018 11:57 EDT) Creatinine 0.75 0.52 - 1.04 [facility] mg/dl LABORATORY SERVICES GFR, Calculated 109 >60 [facility] Comment: ml/min/1.73m2 LABORATORY eGFR calculated using CKD-EPI equation for SERVICES non Americans. Multiply eGFR by 1.16 for Americans. Specimen Blood specimen (specimen) - Blood Performing Organization Address City/[facility]/ZIP [facility] Phon e Number [facility] LABORATORY [address] [place] [address] SERVICES (ABNORMAL) COMPLETE BLOOD COUNT AND DIFFERENTIAL (02/14/2018 11:57 EDT) Pathologist Sig nature WBC 6.89 4.0 - 12.4 [facility] K/[facility] LABORATORY SERVICES RBC 4.39 3.86 - 5.04 [facility] M/[facility] LABORATORY SERVICES Hemoglobin 11.9 11.6 - 15.2 [facility] gm/dl LABORATORY SERVICES HCT 37.8 34.9 - 44.4 % [facility] LABORATORY SERVICES MCV 86 81 - 98 fl [facility] LABORATORY SERVICES MCH 27.1 26.7 - 33.3 pg [facility] LABORATORY SERVICES MCHC 31.5 (L) 32.1 - 35.9 [facility] gm/dl LABORATORY SERVICES RDW-CV 15.1 (H) <14.7 % [facility] LABORATORY SERVICES RDW-SD 47.7 <50.4 fl [facility] LABORATORY SERVICES PLT 335 141 - 377 K/[facility] LABORATORY SERVICES MPV 9.8 9.5 - 12.7 fl [facility] LABORATORY SERVICES Neutrophils 55.7 % [facility] LABORATORY SERVICES Lymphocytes 33.5 % [facility] LABORATORY SERVICES Monocytes 4.4 % [facility] LABORATORY SERVICES Eosinophils 5.7 % [facility] LABORATORY SERVICES Basophils 0.6 % [facility] LABORATORY SERVICES Immature Grans 0.1 % [facility] LABORATORY SERVICES ABS Neutrophils 3.84 2.20 - 8.85 [facility] K/[facility] LABORATORY SERVICES ABS Lymphs 2.31 1.09 - 3.30 [facility] K/[facility] LABORATORY SERVICES ABS Monocytes 0.30 0.1 - 0.8 K/[facility] LABORATORY SERVICES ABS Eosinophils 0.39 0.03 - 0.61 [facility] K/[facility] LABORATORY SERVICES ABS Basophils 0.04 0.01 - 0.11 [facility] K/[facility] LABORATORY SERVICES ABS Immature Grans 0.01 0 - 0.06 /[facility] LABORATORY SERVICES Type of Diff: Automated [facility] LABORATORY SERVICES Specimen Blood specimen (specimen) - Blood Performing Organization Address City/State/ZIP Code Phon e Number [facility] LABORATORY [address] [place] [address] SERVICES documented in this encounter Visit Diagnoses Diagnosis 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
--- OUTSIDE RECORDS SUMMARY | 2022-06-12 06:21 | XMS_ITS | Encounter Summary ---
:1990 Author Organization [facility] Address [address] [place] [address] Care Team Providers Name Role Phone Timothy Bliss MD Primary Care Provider Reason for Visit Reason Onset Date Comments Shortness of Breath 05/27/2020 Encounter Details Date Type Department Care Team Description 05/27/2020 Telephone [facility] Carrie Parrish, Shortness of Breath Infectious Disease - [address] [address] [address], [place] [address] (Wo rk) Social History Tobacco Use Types [...] or older) documented as of this encounter Miscellaneous Notes Telephone Encounter - Maisha Bah, RN - 05/27/2020 1235 EDT Ina wanted to make and appointment for face-face with Dr. Parrish. Scheduled for 06/12/20 at 11:30. She was reminded that she cancels freqently and no-shows for appointments. She stated her mom will bring her. elephone Encounter - Princess Jose - 05/27/2020 1214 EDT Ina called asking to see Dr Parrish. Feels like she is dying, sweating profusely, runs out of breath easy, wakes up from sound sleep throwing up, not flashes. Stated has gone to [facility] ER 30-40 times this year. Went to [place] ER about 3-4 weeks ago. Stated this past ER visit they advised her to contact us or PCP. She does not want to go to PCP. She would like a call back at [phone]. documented in this encounter Plan of Treatment Not on filedocumented as of this encounter Visit Diagnoses Not on filedocumented in this encounter Care Teams Director Vaccine Relationship Specialty Start Date End Date Timothy Bliss MD PCP - General 12/08/17 [facility] [facility] [place] [address] documented as of this encounter
--- OUTSIDE RECORDS SUMMARY | 2022-06-12 06:21 | XMS_ITS | Encounter Summary ---
:1990 Author Organization [facility] Address [address] [place] [address] Care Team Providers Name Role Phone Timothy Bliss MD Primary Care Provider Encounter Details Date Type Department Care Team Description 07/25/2018 Orders Only [facility] Bianca Parrish MD Infectious Disease - [address], [address], [address] [place], [place] [address] [place] [id number] (Wo rk) Social History Tobacco Use Types [...] or older) documented as of this encounter Ordered Prescriptions Prescription Sig Dispensed Refills Start Date End Date penicillin v potassium Take 1 Tab by mouth 120 Tab 0 07/0708/24/2018 (VEETID) 500 mg tablet 4 times daily for 30 days. documented in this encounter Plan of Treatment Not on filedocumented as of this encounter Visit Diagnoses Not on filedocumented in this encounter Care Teams Multi Purpose Machine Operator Relationship Specialty Start Date End Date Timothy Bliss MD PCP - General 12/08/17 [address] [place] [address] documented as of this encounter
--- OUTSIDE RECORDS SUMMARY | 2022-06-12 06:21 | XMS_ITS | Encounter Summary ---
:[address] [facility] Address [address] [place] [address] Care Team Providers Name Role Phone Timothy Bliss MD Primary Care Provider Encounter Details Date Type Department Care Team Description 01/26/2018 Orders Only [facility] Neptali Lopez, Spleni c infarction Cardiothoracic Surgery - PA-C (Primary Dx) [id number] [place] [address] [phone] Social History Tobacco Use Types Packs/Day Years [...] filedocumented as of this encounter Visit Diagnoses Diagnosis Splenic infarction - Primary Other diseases of spleen documented in this encounter Care Teams Rubber Goods Inspector Relationship Specialty Start Date End Date Timothy Bliss MD PCP - General 12/08/17 [address] [place] [place] [address] documented as of this encounter
--- OUTSIDE RECORDS SUMMARY | 2022-06-12 06:21 | XMS_ITS | Encounter Summary ---
:1990 Author Organization [facility] Address [address] [place] [address] Care Team Providers Name Role Phone Timothy Bliss MD Primary Care Provider Reason for Visit Reason Onset Date Comments Referral Request 02/09/2018 patient requesting r eferral for transportation Encounter Details Date Type Department Care Team Description 02/09/2018 Telephone [facility] Britany Dumont, Ref erral Request Cardiothoracic Surgery - (patient requesting Main [address] referral for [address] [facility] [address] transportation) [place] [address] [place] [phone] (Wo rk) Social History Tobacco Use Types [...] this encounter Miscellaneous Notes Telephone Encounter - Tana Parrish RN - 02/09/2018 1345 EDT Cardiothoracic Surgery Update Physician Referral Form for transportation completed and faxed to [facility] at [phone]. Pt is having a CT Scan at 930 and needs to arrive at 8:30 at Registration she is then seeing ID. I have had the Form scanned into [facility]. Pt aware form sent in and she will be on contact with [facility] for the ride. She will call here with any questions. Tana Parrish RN elephone Encounter - Shahrzad Cox - 02/09/2018 0903 EDT Incoming call from patient stating that she tried to call [facility] ([phone]) to arrange transportation for her 02/14/18 CT scan but was told that the ordering MD needs to send a referral to Medicaid to obtain authorization. Patient requesting referral from Dr. Dumont for transportation. Patient would like call when this has been completed [phone]. documented in this encounter Plan of Treatment Not on filedocumented as of this encounter Visit Diagnoses Not on filedocumented in this encounter Care Teams Conveyor Weigher Operator Relationship Specialty Start Date End Date Timothy Bliss MD PCP - General 12/08/[place] [address] documented as of this encounter
--- OUTSIDE RECORDS SUMMARY | 2022-06-12 06:21 | XMS_ITS | Encounter Summary ---
:1990 Author Organization [facility] Address [address] [place] [address] Care Team Providers Name Role Phone Timothy Bliss MD Primary Care Provider Reason for Visit Reason Onset Date Comments Other 02/09/2018 update contact richardr shannan Encounter Details Date Type Department Care Team Description 02/09/2018 Telephone [facility] Britany Dumont, [facility] er (update contact Cardiothoracic Surgery - information) [address] [facility] [address] [place] [address] [place] [phone] (Wo rk) Social History Tobacco Use [...] this encounter Miscellaneous Notes Telephone Encounter - Shahrzad Cox - 02/09/2018 0812 EDT Incoming call from patient to update her contact phone. New number [phone] has been entered into [employer]. documented in this encounter Plan of Treatment Not on filedocumented as of this encounter Visit Diagnoses Not on filedocumented in this encounter Care Teams Boat Rental Clerk Relationship Specialty Start Date End Date Timothy Bliss MD PCP - General 12/08/17 [address] [place] [address] documented as of this encounter
--- OUTSIDE RECORDS SUMMARY | 2022-06-12 06:21 | XMS_ITS | Encounter Summary ---
:1990 Author Organization [facility] Address [address] [place] [address] Care Team Providers Name Role Phone Timothy Bliss MD Primary Care Provider Encounter Details Date Type Department Care Team Description 02/14/2018 Hospital Encounter [facility] - Vinicius Andrade, [facility] PA-C [address] [address] [facility] [phone] [address], [address] [place] [address] (Wo rk) Social History Tobacco [...] or older) documented as of this encounter Discharge Diagnoses Diagnosis R10.9 Unspecified abdominal pain-R10.9[I CD-10-CM] documented in this encounter Medications at Time of Discharge Medication Sig Dispensed Refills Start Date End Date acetaminophen (TYLENOL) Take 2 Tabs by 0 12/31/19 18 500 mg tablet mouth every 6 hours as needed for Pain. gabapentin (NEURONTIN) 300 Take 1 Cap by mouth 90 Cap 0 12/30/2017 mg capsule every 8 hours. ibuprofen (MOTRIN) 400 mg Take 400 mg by 0 tablet mouth every 8 hours as needed for Pain. methadone (DOLOPHINE) 10 Take 9.5 mL by 946 mL 0 018 mg/mL solution mouth daily. Daily Max: 95 mg ascorbic acid, vitamin C, Take 1 Tab by mouth 0 0 12/31/2017 06/20/2020 (VITAMIN C) 500 mg tablet daily. docusate sodium (COLACE) Take 2 Caps by 0 018 06/20/2020 100 mg capsule mouth 2 times daily as needed for Constipation. Multivitamins with Take 1 Tab by mouth 0 01/01/20 18 06/20/2020 Minerals tablet tablet daily. penicillin v potassium Take 500 mg by 0 06/20/2020 (VEETID) 500 mg tablet mouth 4 times daily. traMADol (ULTRAM) 50 mg Take 1-2 Tabs by 50 Tab 0 201706/20/2020 tablet mouth every 6 hours as needed for Pain. Daily Max: 400 mg documented as of this encounter Discharge Disposition Disposition Code Departure Means Destination Auto Discharge Home documented in this encounter Progress Notes Rosario Caruso RN - 02/14/2018 0811 EDT Ina Orellana arrived at CT for imaging with contrast. Patient states that IV can be placed in either upper extremity and use of a tourniquet is not contraindicated. 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 PIV was placed in left hand with 22 gauge introcan, patient cliff with emotional support. Pt states she hates IVs. Signed off cares to RT [facility], CT. Pt completed CT exam and cliff well, PIV removed by telephone directory deliverer skyla Odonnell applied. Pt departed radiology. documented in this encounter Plan of Treatment Not on filedocumented as of this encounter Visit Diagnoses Not on filedocumented in this encounter Care Teams Drafting Clerk Relationship Specialty Start Date End Date Timothy Bliss MD PCP - General 12/08/17 [address] [place] [address] documented as of this encounter
--- OUTSIDE RECORDS SUMMARY | 2022-06-12 06:21 | XMS_ITS | Encounter Summary ---
:1990 Author Organization [facility] Address [address] [place] [address] Care Team Providers Name Role Phone Timothy Bliss MD Primary Care Provider Reason for Referral Consult (3 - 10 Business Days) - Closed Specialty Diagnoses / Procedures Referred By Contact Refer red To Contact Dentistry Diagnoses Dental caries Carrie Parrish MD [facility] Dental 111 [facility] [address] [place] [address] Referral ID Status Reason Start Date Expiration Date Visits V isits Requested Authorized [id number] Closed Specialty 06/20/2020 1 1 Services Required Question Answer Reason for Request: numerous caries, hx of endoc arditis, needs teeth extracted Scheduling Comments (optional ? first available describe specific scheduling needs if applicable): Indicate Name of Specialty Practice: [facility] Dental Clinic Reason for Visit Reason Comments Follow-up Encounter Details Date Type Department Care Team Description 06/20/2020 Office Visit [facility] Medical [place] Carrie Parrish Fever, unspecified fever cause (Primary Dx); Infectious Disease - MD Thuan Dental caries; [facility] [address] [place] Bacterial endocarditis, unsp ecified chronicity [address] [place], [place] [address] [place] [address] [address], [address] [place] [address] (Wo rk) Social History Tobacco Use Types Packs/Day Years Used Date Former Smoker Cigarettes 0.25 Quit: 12/09/19 Smokeless Tobacco: Never Used Alcohol Use Standard Drinks/Week Comments No 0 (1 standard drink = 0.6 oz pure alcoho l) Sex Assigned at Date Recorded Not on file documented as of this encounter Last Filed Vital Signs Vital Sign Reading Time Taken Comments Blood Pressure 146/87 06/20/2020 1116 EDT Pulse 85 06/20/2020 1116 EDT Temperature 37.4 ??C (99.3 ??F) 06/20/2020 1116 EDT Respiratory Rate - - Oxygen Saturation - - Inhaled Oxygen Concentration - - Weight 108.9 kg (240 lb) 06/20/2020 1116 EDT pt reporte d Height - - Body Mass Index 33.47 01/25/2018 1019 EDT documented in this encounter Functional Status Functional Status Response [...] or older) documented as of this encounter Progress Notes Carrie Parrish MD - 06/20/2020 1130 EDT Division of Infectious Disease Follow up/Progress Note Date: 06/20/2020 Chief Complaint: Fever,sweats, not feeling well. History of present illness Ina is a 27 y/o F who was hospitalized at [facility] from 12/07/17 - 12/30/17 with E. Faecalis bacteremia and MV endocarditis. 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 Intraoperatively noted to have vegetationson the atrial wall and a hole in the MV leaflet. Postoperatively ampicillin and gentamicin were continued. On 12/30/17 she was transferred to [facility] to finish IV antibiotic therapy. On 02/12/18 she was discharged home. At time of discharge she started penicillin VK 500mg po q 6 hours. Ina took penicillin until mid summer 2017. 06/20/2020Subjective: Ina returns to ID clinic. She is accompanied by her mother. For >1 year Ina reports worsening drenching night sweats (can wring out her pajamas), low grade fevers (~99F), intermittent shooting abdominal pains in LUQ and RUQ, and painful bowel movements/daily loose stool. She has been seennumerous times at [facility] and reports having negative blood cultures and normal lab work (some reviewedtoday). Has new PCP who has also evaluated her several times. She has an appointment for a TTE tomorrow at [facility]. Reports that several months ago someone told her she had a faint murmur and on subsequent exams in the past several months murmur has become louder. Has numerous dental caries and painful teeth. Knows she needs to have them extracted. Had been regularly receiving Depo injection, but skipped last dose about 1 month ago. Still has not had menstrual cycle yet. Ina has now reached >2 years sobriety. Continues to take methadone through the [facility] program.Has addiction counselor through [facility], but does not have another counselor. Currently homeless and living in a hotel with her shelter boyfriend. Boyfriend cheated on her about2 years ago (shortly after her hospitalization) with his child's mother. Ina reports recent negative HIV test. Ina's father had pulmonary TB and lobectomy prior to her 31 years ago. Ina reports numerous negative tests for TB. PMHx: IVDU - sober since 12/2017 MV endocarditis with Enterococcus faecalis Anxiety ADHD PSHx: 12/20/17 bioprosthetic MV replacement Cholecystectomy Social History: Hx of IVDU Former tobacco user Daily MJ Quit illicit drugs Allergies: Patient has no known allergies. Medications: Medications reconciled via [facility]. Current antimicrobials: none ROS: Remainder of 10 point ROS is negative. Objective BP (!) 146/87 (BP Cuff Location: Right arm, BP Patient Position: Sitting, BP Cuff Sizes: Adult, large) Pulse 85 Temp 37.4 ??C (99.3 ??F) (Temporal) Wt (!) 108.9 kg (240 lb) Comment: pt reported BMI 33.47 kg/m?? General: appears well, NAD HEENT: NC, AT, anicteric sclera, missing maxillary teeth, numerous caries on remaining mandibular teeth Neck: full ROM, no cervical LAD Heart: RRR, + 2/6 systolic murmur heard throughout all yen Lungs: CTAB, no wheezing or rhonchi Chest; Well healed sternal incision. Abd: Soft, NT, ND MSSK: no joint effusions Skin: numerous tattoos. KP to arms. No splinter hemorrhages, no janeway lesions, no osler's nodes LABS Reviewed in scanned documents 01/19/20 @ [facility] Cr 0.84, AST 15, ALT 16, TSH 1.01 WBC 9.38 Hb 12.9 Plt 294 01/21/20 @ [facility] Cr 0.77 lipase 44 WBC 12.63 Hb 13.7 Plt 283 Microbiology Data @[facility] 12/06/17 BC: enterococcus ? @ [facility] 12/09/17 1 of 4 BC: Enterococcus faecalis 12/11/17 4 of 4 BC: no growth 12/20/17 OR clx left atrial bed few polys, no bacteria; 1 colony Enterococcus faecalis ?OR clx anterior and posterior leaflets of MV no polys,no bacteria, no growth Radiology 02/14/18 CT A/P -Decreasing size of splenic infarcts Impression 1. >1 year drenching night sweats, fatigue, low grade fevers. Ina has been seen numerous times at [facility] and per their ED notes has had numerous negative blood cultures. I remain concerned that she may have intermittent bacteremia (likely from poor dentition), resulting in subacute endocarditis with oral farhana which may be difficult to grow, especially in light of new murmur. Symptoms may be due to poor dentition leading to high inflammation. Agree with previous physicians that symptoms could be due to anxiety, but Ina deserves thoroughevaluation for endocarditis. Also discussed that some symptoms (like skin itching) may be due to methadone and to discuss with [facility] about decreasing dose or changing to suboxone. Also discussed that IUD may be better control option than Depo due to low side effect profile. 2. Poor dentition: needs teeth extracted. Referral made to dental clinic. 4. 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 Endocarditis ppx: Advised to see dentist. Will need amoxicillin prior to dental procedures. 5. 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 Decreasing in size by CT imaging. 6. Hx of IVDU - in methadone program 7. Cleared hepatitis C virus infection Plan 1. Ordered 2 sets of blood cultures 2. Ordered TSH 3. I will get results of upcoming TTE and call Ina with results and next steps. 4. Referred to [facility] for teeth extractions. Follow up in 1 month. Carrie Parrish MD 06/20/2020 12:22 documented in this encounter Plan of Treatment Scheduled Referrals Name Type Priority Associated Diagnoses Order S chedule AMB CONS/FOLLOW UP Outpatient Referral Routine Dental caries E xpected: GENERAL DENTISTRY 07/04/2020 (Approximate) documented as of this encounter Results TSH (06/20/2020 12:43 EDT) Pathologist Sig nature TSH 1.62 0.47 - 4.68 uIU/mL [facility] Specimen Blood - Venous blood (substance) Narrative [facility] - 06/20/2020 14:52 EDT The results of this assay can be falsely lowered due to the consumption of Biotin. Performing Organization Address City/[facility]/ZIP Code Phon e Number [facility] [address] [place] [address] SERVICES BACTERIAL CULTURE, BLOOD (06/20/2020 12:43 EDT) Pathologist Sig nature Organism ID No Growth at 5 days [facility] Specimen Blood - Venous blood (substance) Performing Organization Address City/[facility]/ZIP Code Phon e Number [facility] [address] [place] [address] SERVICES BACTERIAL CULTURE, BLOOD (06/20/2020 12:41 EDT) Pathologist Sig nature Organism ID No Growth at 5 days [facility] Specimen Blood - Venous blood (substance) Performing Organization Address City/State/ZIP Code Phon e Number [facility] [address] [place] [address] SERVICES documented in this encounter Visit Diagnoses Diagnosis Fever, unspecified fever cause - Primary Dental caries Unspecified dental caries Bacterial endocarditis, unspecified chrome worker nicity documented in this encounter Discontinued Medications Medication Sig Discontinue Reason Start Date End Date docusate sodium (COLACE) Take 2 Caps by Therapy completed 8 06/20/2020 100 mg capsule mouth 2 times daily as needed for Constipation. ascorbic acid, vitamin C, Take 1 Tab by Therapy completed 8 06/20/2020 (VITAMIN C) 500 mg tablet mouth daily. Multivitamins with Take 1 Tab by Therapy completed 12/31/2017 Minerals tablet tablet mouth daily. penicillin v potassium Take 500 mg by Therapy completed 06/20/2020 (VEETID) 500 mg tablet mouth 4 times daily. traMADol (ULTRAM) 50 mg Take 1-2 Tabs by Therapy completed 12/31/19 18 06/20/2020 tablet mouth every 6 hours as needed for Pain. Daily Max: 400 mg documented as of this encounter Historical Medications This list may reflect changes made after this encounter. Medication Sig Dispensed Refills Start Date End Date dexmethylphenidate 35 mg Take 35 mg by 0 capsule,ER biphasic 50-50 mouth daily. added in this encounter Care Teams Japanese Professor Relationship Specialty Start Date End Date Timothy Bliss MD PCP - General 12/08/17 [address] [place] [address] documented as of this encounter
--- OUTSIDE RECORDS SUMMARY | 2022-06-12 06:21 | XMS_ITS | Encounter Summary ---
:1990 Author Organization [facility] Address [address] [place] [address] Care Team Providers Name Role Phone Timothy Bliss MD Primary Care Provider Reason for Visit Reason Onset Date Comments Other 06/25/2020 Encounter Details Date Type Department Care Team Description 06/25/2020 Telephone [facility] Bianca Parrish MD Other Infectious Disease - [address], [address] [place], [place] [id number] [place] [phone] (Wo rk) Social History Tobacco Use Types [...] this encounter Miscellaneous Notes Telephone Encounter - Carrie Parrish MD - 06/25/2020 1321 EDT Returned Ina's mom's call (Haleigh Esteban). Wanting to know results of blood cultures. Informed culture no growth. Ina was unable to get an RTC ride to get TTE last week. Mom is working on rescheduling. Also asked for dental clinic phone number as they have Ina's phone number and phone is currently not working. Best to contact Mom Haleigh. Phone number is [phone]. Carrie Parrish MD 06/25/2020 13:23 Telephone Encounter - Damien Og, RN - 06/25/[address] Parrish is aware and will call patient. DAMIEN OG, RN elephone Encounter - Shaylee Sims - 06/25/2020 0942 EDT Chandler Montoya states that Priscillas gums are inflamed and face is starting to sell. Would like a call back at [phone]. documented in this encounter Plan of Treatment Not on filedocumented as of this encounter Visit Diagnoses Not on filedocumented in this encounter Care Teams Career Services Assistant Relationship Specialty Start Date End Date Timothy Bliss MD PCP - General 12/08/17 [place] [address] documented as of this encounter
--- OUTSIDE RECORDS SUMMARY | 2022-06-12 06:21 | XMS_ITS | Encounter Summary ---
:1990 Author Organization [facility] Address [address] [place] [id number] Care Team Providers Name Role Phone Timothy Bliss MD Primary Care Provider Reason for Referral Radiology Services (Routine) - Closed Specialty Diagnoses / Procedures Referred By Contact Refer red To Contact Diagnoses Splenic infarction Gil Andrade, PA-C Procedures CT ABDOMEN (LUNG BASES TO ILIAC CREST) W CONTRAST [address] [phone] Referral ID Status Reason Start Date Expiration Date Visits Requ ested Visits Authorized [id number] Closed 01/20/2018 04/20/2018 1 1 Encounter Details Date Type Department Care Team Description 02/02/2018 Orders Only [facility] Gil Andrade, Sp lenic infarction Cardiothoracic Surgery PA-C (Primary Dx) - [address] [place] [address] [facility] [phone] [address] (Wo rk) Social History Tobacco Use [...] Name Priority Date/Time Associated Diagnosis Comme nts CT ABDOMEN (LUNG Routine 02/14/2018 8:19 EDT Splenic infarctio n Results for this BASES TO ILIAC procedure are in CREST) W CONTRAST the result s section. documented in this encounter Results CT ABDOMEN (LUNG BASES TO ILIAC CREST) W CONTRAST (02/14/2018 8:19 EDT) Anatomical Region Laterality Modality Other Specimen Narrative [facility] - 02/14/2018 12:[address] of the pelvis was not performed. ??Th e corrected technique follows: TECHNIQUE: CT abdomen was performed with the admini stration of intravenous contrast. Addendum Ends CT ABDOMEN W CONTRAST ??02/14/2018 8:19 A M SIGNS AND SYMPTOMS/COMMENTS: ?? D73.5-Infarction of [id number]; s/p M VR, abdominal pain. h/o endocarditis with splenic infarction TECHNIQUE: CT abdomen and pelvis was performed with the administration of intravenous contrast. Patient complained of a painful injectio n, with slow injection over 22-gauge IV left hand. Injection was con sequently stopped at 50 cc.. Contrast enhancement is therefore subopt imal, but exam remains of diagnostic utility. COMPARISON: CT abdomen pelvis 12/23/2017, CT PE 2017.. FINDINGS: Lower chest: No suspicious lesions. Ther e is dependent atelectasis. There has been interval removal of a rig ht sided chest tube. There is been interval resolution of bilateral pleural effusions. Hepatobiliary: Noncalcified stones versu s sludging is seen in the degenerative portion of the gallbladder and is unchanged compared to the prior exam. There is no gallbladder wall thickening or pericholecystic fluid. There is no bilia ry ductal dilatation. Spleen, pancreas, adrenal glands: There are 2 areas of hypodensity that are more well delineated and circum scribed compared to the prior exam. Medially measures 3.5 cm axi al 47, previously 5 cm long axis. Laterally and superiorly 4 cm long axis on axial 51, previously 6 cm. Previously seen fat str anding adjacent to the spleen and pancreas have resolved. Areas of expected splenic parenchymal volume loss noted. The pancreas and adrenal glands are in n ormal limits. Kidneys, ureters: The kidneys enhance sy mmetrically. There is no hydronephrosis, calculus or perinephric fat stranding present. A simple renal cyst is stable in the upper pole the left kidney. Bowel: There is no bowel wall thickening . The appendix is not identified on this exam. There are no di lated loops of large or small bowel. Peritoneal cavity / Subperitoneal space: There is no free air free fluid within the peritoneum. Lymphovascular: The IVC, aorta and koko l systems are within normal limits. Incidental note is made of a ret roaortic left renal vein. Abdominal wall: There are no bowel conta ining hernias present. Musculoskeletal: No suspicious osseous l esions. IMPRESSION: 1. ??Evolution and decrease in size of t he previously described splenic infarct.. No new areas of infarc t are identified. 2. ??Resolution of fat stranding adjacen t to the spleen and the pancreatic tail. 3. ??Cholelithiasis. I have personally reviewed the images an d the above interpretation and agree with the findings. Procedure Note Nick Bonner MD - 06/06/[address] of the pelvis was not performed. The corrected technique follows: TECHNIQUE: CT abdomen was performed with the admini stration of intravenous contrast. Addendum Ends CT ABDOMEN W CONTRAST 02/14/2018 8:19 AM SIGNS AND SYMPTOMS/COMMENTS: D73.5-Infarction of [id number]; s/p M VR, abdominal pain. h/o endocarditis with splenic infarction TECHNIQUE: CT abdomen and pelvis was performed with the administration of intravenous contrast. Patient complained of a painful injectio n, with slow injection over 22-gauge IV left hand. Injection was con sequently stopped at 50 cc.. Contrast enhancement is therefore subopt imal, but exam remains of diagnostic utility. COMPARISON: CT abdomen pelvis 12/23/2017, CT PE 2017.. FINDINGS: Lower chest: No suspicious lesions. Ther e is dependent atelectasis. There has been interval removal of a rig ht sided chest tube. There is been interval resolution of bilateral pleural effusions. Hepatobiliary: Noncalcified stones versu s sludging is seen in the degenerative portion of the gallbladder and is unchanged compared to the prior exam. There is no gallbladder wall thickening or pericholecystic fluid. There is no bilia ry ductal dilatation. Spleen, pancreas, adrenal glands: There are 2 areas of hypodensity that are more well delineated and circum scribed compared to the prior exam. Medially measures 3.5 cm axi al 47, previously 5 cm long axis. Laterally and superiorly 4 cm long axis on axial 51, previously 6 cm. Previously seen fat str anding adjacent to the spleen and pancreas have resolved. Areas of expected splenic parenchymal volume loss noted. The pancreas and adrenal glands are in n ormal limits. Kidneys, ureters: The kidneys enhance sy mmetrically. There is no hydronephrosis, calculus or perinephric fat stranding present. A simple renal cyst is stable in the upper pole the left kidney. Bowel: There is no bowel wall thickening . The appendix is not identified on this exam. There are no di lated loops of large or small bowel. Peritoneal cavity / Subperitoneal space: There is no free air free fluid within the peritoneum. Lymphovascular: The IVC, aorta and koko l systems are within normal limits. Incidental note is made of a ret roaortic left renal vein. Abdominal wall: There are no bowel conta ining hernias present. Musculoskeletal: No suspicious osseous l esions. IMPRESSION: 1. Evolution and decrease in size of the previously described splenic infarct.. No new areas of infarc t are identified. 2. Resolution of fat stranding adjacent to the spleen and the pancreatic tail. 3. Cholelithiasis. I have personally reviewed the images an d the above interpretation and agree with the findings. Performing Organization Address City/State/ZIP Code Phon e Number [facility] documented in this encounter Visit Diagnoses Diagnosis Splenic infarction - Primary Other diseases of spleen documented in this encounter Care Teams Canary Raiser Relationship Specialty Start Date End Date Timothy Bliss MD PCP - General 12/08/17 [address] [place] [address] documented as of this encounter
--- OUTSIDE RECORDS SUMMARY | 2022-06-12 06:21 | XMS_ITS | Encounter Summary ---
:1990 Author Organization [facility] Address [address] [place] [address] Care Team Providers Name Role Phone Timothy Bliss MD Primary Care Provider Encounter Details Date Type Department Care Team Description 02/14/2018 Results Only [facility] Carrie Parrish, Infectious Disease - [address] [address] [address], [place] [phone] (Wo rk) Social History Tobacco Use Types [...] Name Priority Date/Time Associated Diagnosis Comme nts GENOTYPE Routine 02/14/2018 11:57 EDT Results for this procedure are i n the results section . documented in this encounter Results GENOTYPE (02/14/2018 11:57 EDT) Pathologist Sig nature Genotype Hepatitis C Virus Genotype Not Performed. [facility] Comment: LABORATORY SERVICES Specimens for HCV genotype must have a viral load of > or = 15 IU/mL. Specimen Blood Performing Organization Address City/State/ZIP Code Phon e Number [facility] [address] [place] [address] SERVICES documented in this encounter Visit Diagnoses Not on filedocumented in this encounter Care Teams Rig Superintendent Relationship Specialty Start Date End Date Timothy Bliss MD PCP - General 12/08/[address] [place], [place] [id number] documented as of this encounter
--- OUTSIDE RECORDS SUMMARY | 2022-06-12 06:21 | XMS_ITS | Encounter Summary ---
:1990 Author Organization [facility] Address [address] [place] [address] Care Team Providers Name Role Phone Timothy Bliss MD Primary Care Provider Reason for Visit Reason Onset Date Comments Other 04/06/2018 Encounter Details Date Type Department Care Team Description 04/06/[address] [facility] Bianca Parrish MD Other Infectious Disease - [address], [address] [place], [place] [id number] [place] [phone] (Wo rk) Social History Tobacco Use Types [...] encounter Miscellaneous Notes Telephone Encounter - Maisha Bah RN - 04/06/2018 1732 EDT Spoke with mother regarding Ina's c/o pain left collar bone. Sudden onset yesterday 04/05/18. Hehas full range of motion in left arm. She denies swelling or pain using arm. Today continues with pain in same area without an increase in intensity. Had this before as an inpatient at [facility]. Mother states she does have a cold with occasional nose drainage sometimes yellow/green. No shortness of breathor cough. Denies, night sweats, fever or chills. No chest pressure. Mother concerned it could be pneumonia. Before going to ED suggested Ina apply warm compress on area to relax muscle. If after 2hrs of continuous warm compress, pain not relieved, go to ED to be evaluated. elephone Encounter - Lisa Scott - 04/06/2018 1650 EDT Pt's mother, Haleigh, states pt is experiencing pains around her left collar bone while breathing in.States this started happening yesterday. Haleigh can be reached [phone]. documented in this encounter Plan of Treatment Not on filedocumented as of this encounter Visit Diagnoses Not on filedocumented in this encounter Care Teams Crepe Box Tender Relationship Specialty Start Date End Date Timothy Bliss MD PCP - General 12/08/17 [address] [place] [address] documented as of this encounter
--- OUTSIDE RECORDS SUMMARY | 2022-06-12 06:21 | XMS_ITS | Encounter Summary ---
:[address] [facility] Address [address] [place] [address] Care Team Providers Name Role Phone Timothy Bliss MD Primary Care Provider Encounter Details Date Type Department Care Team Description 01/25/2018 Hospital Encounter [facility] - Britany Dumont MD [address] 111 [facility] [address] [place] [address] FISH CHONG [phone] (Wo rk) Social History Tobacco Use Types [...] as of this encounter Discharge Diagnoses Diagnosis I34.9 Nonrheumatic mitral valve disorder , unspecified-I34.9[ICD-10-CM] Z95.2 Presence of prosthetic heart valve -Z95.2[ICD-10-CM] documented in this encounter Medications at Time of Discharge Medication Sig Dispensed Refills Start Date End Date acetaminophen Take 2 Tabs by mouth 0 12/30/2017 (TYLENOL) 500 mg every 6 hours as needed tablet for Pain. gabapentin (NEURONTIN) Take 1 Cap by mouth 90 Cap 0 12/06 300 mg capsule every 8 hours. methadone (DOLOPHINE) Take 9.5 mL by mouth 946 mL 0 12/06 10 mg/mL solution daily. Daily Max: 95 mg alteplase (CATHFLO 2 mg by intercatheter 2 mg 0 201702/14/2018 ACTIVASE) 2 mg route as needed injection (clogged PICC). ascorbic acid, vitamin Take 1 Tab by mouth 0 12/0606/20/2020 C, (VITAMIN C) 500 mg daily. tablet docusate sodium Take 2 Caps by mouth 2 0 12/31/19 18 06/20/2020 (COLACE) 100 mg times daily as needed capsule for Constipation. dronabinol (MARINOL Take by mouth. 0 0 02/14/2018 ORAL) ferrous sulfate 324 mg Take 1 Tab by mouth 0 12/0602/14/2018 (65 mg iron) daily with breakfast. tablet,delayed release (DR/EC) gentamicin (GARAMYCIN) Inject 70 mg/kg into 0 02/14/2018 70 mg/50 mL the vein every 12 hours. IV Infusion Pump Use as directed. Order 1 Each 0 018 02/01/2018 infusion includes administration setIndications: supplies and pump (if Enterococcus faecalis required), and catheter infection, Subacute care supplies for home bacterial endocarditis IV therapy. melatonin 3 mg Take by mouth. 0 2017 tablet,disintegrating Multivitamins with Take 1 Tab by mouth 0 01/01/20 18 06/20/2020 Minerals tablet tablet daily. ondansetron, PF, Inject 2 mL into the 2 mL 0 8 02/14/2018 (ZOFRAN) 4 mg/2 mL vein every 6 hours as solution needed for Nausea. penicillin G potassium Inject 4 Million Units 0 0 12/30/2017 02/10/2018 4 Million Units in into the vein every 4 dextrose 5% 150 hours for 42 days. mLIndications: Tentative end date Enterococcus faecalis 02/01/18. Or continue infection, Subacute until follow-up bacterial endocarditis appointment with ID. Compound in patient ready to use form. Pharmacy may adjust diluent and/or volume. sodium chloride 0.9 % For valved catheters 1 Box 12/0602/14/2018 flush (Groshong, Vaxcel, Solo syringeIndications: PICC, Mid-line, and Enterococcus faecalis Groshong Chest Port): infection, Subacute Flush all lumens with bacterial endocarditis 10 mL every week if not in use. Flush 10 mL before and 10 mL after each medication dose (20 mL after vancomycin doses). Flush with 20 mL after blood draws. Dispense quantity sufficient. traMADol (ULTRAM) 50 Take 1-2 Tabs by mouth 50 Tab 0 06/20/2020 mg tablet every 6 hours as needed for Pain. Daily Max: 400 mg documented as of this encounter Discharge Disposition Disposition Code Departure Means Destination Auto Discharge Home documented in this encounter Plan of Treatment Not on filedocumented as of this encounter Visit Diagnoses Not on filedocumented in this encounter Care Teams Director Recreation Relationship Specialty Start Date End Date Timothy Bliss MD PCP - General 12/08/17 [address] [place] [address] documented as of this encounter
--- OUTSIDE RECORDS SUMMARY | 2022-06-12 06:21 | XMS_ITS | Encounter Summary ---
:1990 Author Organization [facility] Address [address] [place] [address] Care Team Providers Name Role Phone Timothy Bliss MD Primary Care Provider Reason for Visit Reason Onset Date Comments Appointment Related 08/07/2020 NPV Encounter Details Date Type Department Care Team Description 08/07/2020 Telephone [facility] Unknown, Appointme nt Related Adult Primary Care - Provider, Sonia Melgoza (NPV) [place] [phone] (Work) [place] [address] [phone] Social History Tobacco Use Types Packs/Day Years [...] this encounter Miscellaneous Notes Telephone Encounter - Eusebia Brownlee - 08/07/2020 1400 EST Reason for Call: Appointment Related Summary/Symptoms: Received medical records for patient. Tried calling patient but unable to reach patient due to [employer] wireless phone line Restrictions on this line. Onset and Duration? now Appointment Offered? Mackenzie Brownlee 08/07/2020 14:02 documented in this encounter Plan of Treatment Not on filedocumented as of this encounter Visit Diagnoses Not on filedocumented in this encounter Care Teams Speedometer Mechanic Relationship Specialty Start Date End Date Timothy Bliss MD PCP - General 12/08/17 [address] [place] [address] documented as of this encounter
--- OUTSIDE RECORDS SUMMARY | 2022-06-12 06:21 | XMS_ITS | Encounter Summary ---
:[address] [facility] Address [address] [place] [address] Care Team Providers Name Role Phone Timothy Bliss MD Primary Care Provider Encounter Details Date Type Department Care Team Description 06/20/2020 Travel Social History Tobacco Use Types Packs/Day Years [...] on filedocumented in this encounter Care Teams Asphalt Layer Relationship Specialty Start Date End Date Timothy Bliss MD PCP - General 12/08/17 [place] [address] documented as of this encounter
--- OUTSIDE RECORDS SUMMARY | 2022-06-12 06:21 | XMS_ITS | Encounter Summary ---
:[address] [facility] Address [address] [place] [address] Care Team Providers Name Role Phone Timothy Bliss MD Primary Care Provider Encounter Details Date Type Department Care Team Description 05/09/2020 Lab Requisition [facility] Outr Resulting Lab, Pathology & Laboratory Provider [facility] [address] [place], [place] [id number] Social History Tobacco Use Types Packs/Day Years [...] Procedure Name Priority Date/Time Associated Comments Diagnosis HIV 1/2 ANTIGEN AND Routine 05/09/2020 22:30 Resu lts for this ANTIBODY, 4TH EDT procedure are in GENERATION the results section. documented in this encounter Results HIV 1/2 ANTIGEN AND ANTIBODY, 4TH GENERATION (05/09/2020 22:30 EDT) HIV 1 and 2 Negative Negative [facility] Antibody/p24 Comment: LABORATORY Antigen, 4th If acute HIV-1 infection is suspected in a high risk ??patient, submit plasma specimen for HIV-1 RNA quantitation test. SERV ICES Generation Fourth Generation assay performed on the [employer] Data[employer]. Specimen Blood - Venous blood (substance) Performing Organization Address City/State/ZIP Code Phon e Number [facility] [address] [place] [address] SERVICES documented in this encounter Visit Diagnoses Not on filedocumented in this encounter Care Teams Laborer Cook House Relationship Specialty Start Date End Date Timothy Bliss MD PCP - General 12/08/17 [address] [place], [place] [id number] documented as of this encounter
--- OUTSIDE RECORDS SUMMARY | 2022-06-12 06:21 | XMS_ITS | Encounter Summary ---
:1990 Author Organization [facility] Address [address] [place] [address] Care Team Providers Name Role Phone Timothy Bliss MD Primary Care Provider Reason for Referral Consult (Routine) - Closed Specialty Diagnoses / Procedures Referred By Contact Refer red To Contact Diagnoses Endocarditis of prosthetic valve, subsequent encounter Carrie Parrish MD [address] [place] [phone] Referral ID Status Reason Start Date Expiration Date Visits V isits Requested Authorized [id number] Closed Specialty 02/14/2018 1 1 Services Required Question Answer Reason for Request: s/p MV replacement Practice Site (External Referral Only): [facility] Reason for Visit Reason Comments Follow-up Encounter Details Date Type Department Care Team Description 02/14/2018 Office Visit [facility] Carrie Parrish rm (current) use of antibiotics (Primary Dx); Infectious Disease - [place] Thuan Endocarditis of prosthetic valve, subseq uent encounter; [address] Chronic hepatitis C without hepatic coma (HCC-CMS) [address] [place] [phone] [place] [address] [phone] (Wo rk) Social History Tobacco Use Types Packs/Day Years Used Date Former Smoker Cigarettes 0.25 Quit: 04/04/20 18 Smokeless Tobacco: Never Used Alcohol Use Standard Drinks/Week Comments No 0 (1 standard drink = 0.6 oz pure alcoho l) Sex Assigned at Date Recorded Not on file documented as of this encounter Last Filed Vital Signs Vital Sign Reading Time Taken Comments Blood Pressure 132/100 02/14/2018 1006 EDT Pulse - - Temperature 36.2 ??C (97.2 ??F) 02/14/2018 1006 EDT Respiratory Rate - - Oxygen Saturation - - Inhaled Oxygen Concentration - - Weight 96.2 kg (212 lb) 02/14/2018 1006 EDT Height - - Body Mass Index 29.57 01/25/2018 1019 EDT documented in this encounter [...] as of this encounter Discharge Diagnoses Diagnosis 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 Faecalis bacteremia and MV endocarditis s/p bioprosthetic valve replacement History of present illness Ina is a 27 y/o F who was hospitalized at [facility] from 12/07/17 - with E. Faecalis bacteremia and MV endocarditis. 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 Intraoperatively noted to have vegetationson the atrial wall and a hole in the MV leaflet. Postoperatively ampicillin and gentamicin were continued. On 12/30/17 she was transferred to [facility] to finish IV antibiotic therapy. On 02/12/18 she was discharged home. Prior to discharge, I discussed antibiotic plan with [facility] hospitalized. Plan to discontinue ampicillin and gentamicin and start penicillin VK 500mg po q 6 hours. 02/14/2018Subjective: Ina presents to ID clinic for first follow up visit. She reports she is doing well, but is frustrated by feeling out of shape and getting winded when walking. Denies fever, chills, drenching sweats. Missed 1 penicillin dose. Reports that she has moved into her mom's house. In methadone program. Is concerned about redness to skin and is wondering if it is antibiotic related. Reports that on her discharge paperwork from [facility] she was told that she does not have hepatitis c. PMHx: has a past medical history of Hepatitis C. PSHx: 12/20/17 bioprosthetic MV replacement Social History: Lives with mom Hx of IVDU Quit smoking Quit illicit drugs Broke up with her boyfriend Allergies: Review of patient's allergies indicates no known allergies. Medications: Medications reconciled via [employer]ISM. Current antimicrobials: Penicillin VK 500mg po q 6 hours ROS: Remainder of 10 point ROS is negative. Objective BP (!) 132/100 Temp 36.2 ??C (97.2 ??F) Wt 96.2 kg (212 lb) BMI 29.57 kg/m2 General: appears well, NAD HEENT: NC, AT, EOMI, anicteric sclera, missing maxillary teeth, no thrush Neck: full ROM Heart: RRR, no murmur Lungs: CTAB, no wheezing or rhonchi Chest; Well healing sternal incision. No breakdown, drainage, fluctuance, or erythema Abd: Soft, NT, ND MSSK: no joint effusions Skin: numerous tattoos. Erythema to arms LABS Reviewed in [facility] Microbiology Data @[facility] 12/06/17 BC: enterococcus ? @ [facility] 12/09/17 1 of 4 BC: Enterococcus faecalis 12/11/17 4 of 4 BC: no growth 12/20/17 OR clx left atrial bed few polys, no bacteria; 1 colony Enterococcus faecalis ?OR clx anterior and posterior leaflets of MV no polys,no bacteria, no growth Radiology 02/14/18 CT A/P - I personally viewed images. Decreasing size of splenic infarcts Impression 1. 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 Now continuing with oral penicillin given extensive nature of infection into atrium. Tolerating antibiotic therapy well. Shortness of breathlikely due to deconditioning given no evidence of heart failure on clinical exam. Will refer to cardiac rehab. 2. 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 Decreasing in size by CT imaging. 3. 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 Discussed need for contraception - she will discuss further with her PCP. 5. Hepatitis C - ordered HCV VL with reflex to genotype. If detectable viral load, will initiate treatment process at next visit. Will likely need fibroscan first. 6. Endocarditis ppx: Advised to see dentist. Will need amoxicillin prior to dental procedures. Plan 1. Continue penicillin VK 500mg po q 6 hours 2. Ordered CBC with diff, Cr, Hep C VL 3. Discuss contraception with PCP 4. Referred to cardiac rehab. Follow up in 1 month Carrie Parrish MD 02/14/2018 14:03 documented in this encounter Plan of Treatment Scheduled Referrals Name Type Priority Associated Diagnoses Order S chedule AMB CONS/FOLLOW UP Outpatient Routine Endocarditis of Ordere d: CARDIAC REHABILITATION Referral prosthetic valve, 02/14/2018 subsequent encounter documented as of this encounter Results HCV RNA QUANT WITH REFLEX TO GENOTYPE (02/14/2018 11:57 EDT) HCV RNA Detect Undetected Undetected IU/mL [facility] Comment: CENTER Reference Range: ??Undetected LABORATORY The quantification range of this assay is 15 SERVICES IU/mL to 100,000,000 IU/mL. Testing was performed by the [employer]annet Ampliprep/Jannet TaqMan HCV v2.0 ([employer] Specimen Blood specimen (specimen) - Blood Performing Organization Address City/[facility] Phon e Number [facility] [address] [place] [address] SERVICES CREATININE (02/14/2018 11:57 EDT) Creatinine 0.75 0.52 - 1.04 [facility] mg/dl LABORATORY SERVICES GFR, Calculated 109 >60 [facility] Comment: ml/min/1.73m2 LABORATORY eGFR calculated using CKD-EPI equation for SERVICES non Americans. Multiply eGFR by 1.16 for Americans. Specimen Blood specimen (specimen) - Blood Performing Organization Address [facility] Phon e Number [facility] [address] [place] [address] SERVICES (ABNORMAL) COMPLETE BLOOD COUNT AND DIFFERENTIAL (02/14/2018 11:57 EDT) Pathologist Sig nature WBC 6.89 4.0 - 12.4 [facility] K/[facility] LABORATORY SERVICES RBC 4.39 3.86 - 5.04 [facility] M/[facility] LABORATORY SERVICES Hemoglobin 11.9 11.6 - 15.2 [facility] gm/dl LABORATORY SERVICES HCT 37.8 34.9 - 44.4 % [facility] SERVICES MCV 86 81 - 98 fl [facility] SERVICES MCH 27.1 26.7 - 33.3 pg [facility] SERVICES MCHC 31.5 (L) 32.1 - 35.9 [facility] gm/dl LABORATORY SERVICES RDW-CV 15.1 (H) <14.7 % [facility] SERVICES RDW-SD 47.7 <50.4 fl [facility] SERVICES PLT 335 141 - 377 K/[facility] LABORATORY SERVICES MPV 9.8 9.5 - 12.7 fl [facility] SERVICES Neutrophils 55.7 % [facility] SERVICES Lymphocytes 33.5 % [facility] SERVICES Monocytes 4.4 % [facility] SERVICES Eosinophils 5.7 % [facility] SERVICES Basophils 0.6 % [facility] SERVICES Immature Grans 0.1 % [facility] SERVICES ABS Neutrophils 3.84 2.20 - 8.85 [facility] K/[facility] LABORATORY SERVICES ABS Lymphs 2.31 1.09 - 3.30 [facility] LABORATORY SERVICES ABS Monocytes 0.30 0.1 - 0.8 /[facility] LABORATORY SERVICES ABS Eosinophils 0.39 0.03 - 0.61 [facility] LABORATORY SERVICES ABS Basophils 0.04 0.01 - 0.11 [facility] LABORATORY SERVICES ABS Immature Grans 0.01 0 - 0.06 /[facility] LABORATORY SERVICES Type of Diff: Automated [facility] SERVICES Specimen Blood specimen (specimen) - Blood Performing Organization Address City/State/[facility] Code Phon e Number [facility] [address] [place] [address] SERVICES documented in this encounter Visit Diagnoses 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 dronabinol (MARINOL Take by mouth. Patient Stopped 07/2018 ORAL) Taking ferrous sulfate 324 Take 1 Tab by mouth Patient Stopped 12/31/2017 02/14/2018 mg (65 mg iron) daily with breakfast. Taking tablet,delayed release (DR/EC) gentamicin Inject 70 mg/kg into Therapy completed (GARAMYCIN) 70 mg/50 the vein every 12 mL hours. melatonin 3 mg Take by mouth. Patient Stopped 02/15/20 18 tablet,disintegrating Taking sodium chloride 0.9 % For valved catheters Therapy completed 201702/14/2018 flush (Groshong, Vaxcel, syringeIndications: Solo PICC, Mid-line, Enterococcus faecalis and Groshong Chest infection, Subacute Port): Flush all bacterial lumens with 10 mL endocarditis every week if not in use. Flush 10 mL before and 10 mL after each medication dose (20 mL after vancomycin doses). Flush with 20 mL after blood draws. Dispense quantity sufficient. ondansetron, PF, Inject 2 mL into the Therapy completed 12/30/2017 02/14/2018 (ZOFRAN) 4 mg/2 mL vein every 6 hours as solution needed for Nausea. documented as of this encounter Historical Medications This list may reflect changes made after this encounter. Medication Sig Dispensed Refills Start Date End Date ibuprofen (MOTRIN) 400 mg Take 400 mg by mouth 0 tablet every 8 hours as needed for Pain. penicillin v potassium Take 500 mg by mouth 0 06/20/2020 (VEETID) 500 mg tablet 4 times daily. added in this encounter Care Teams Retail Event And Sales Assistant Relationship Specialty Start Date End Date Timothy Bliss MD PCP - General 12/08/17 [address] [place] [address] documented as of this encounter
--- OUTSIDE RECORDS SUMMARY | 2022-06-12 06:21 | XMS_ITS | Encounter Summary ---
:1990 Author Organization [facility] Address [address] [place] [address] Care Team Providers Name Role Phone Timothy Bliss MD Primary Care Provider Reason for Visit Reason Onset Date Comments Appointment Related 06/27/2020 Encounter Details Date Type Department Care Team Description 06/27/2020 Telephone [facility] Bari Carter Bin ointment Related Cardiology - Emilio [address] [place], [place] [address] Social History Tobacco Use Types Packs/Day Years [...] this encounter Miscellaneous Notes Telephone Encounter - Bari Carter - 06/27/2020 5994 EDT Communications Equipment Supervisor attempted call to patient and patient's mother to schedule echo per Dr. Parrish. Unable to leave voicemail on mom's line Haleigh or on patient's line. Plan [facility] to dental appt. Will attempt again at the end of the day to schedule. documented in this encounter Plan of Treatment Not on filedocumented as of this encounter Visit Diagnoses Not on filedocumented in this encounter Care Teams A P Supervisor Relationship Specialty Start Date End Date Timothy Bliss MD PCP - General 12/08/[address] [place] [place] [address] documented as of this encounter
--- OUTSIDE RECORDS SUMMARY | 2022-06-12 06:21 | XMS_ITS | Encounter Summary ---
:1990 Author Organization [facility] Address [address] [place] [address] Care Team Providers Name Role Phone Timothy Bliss MD Primary Care Provider Encounter Details Date Type Department Care Team Description 12/19/2020 Lab Requisition [facility] Outr Resulting Lab, Pathology & Laboratory Provider [facility] [address] [place], [place] [id number] Social History Tobacco Use Types Packs/Day Years [...] Name Priority Date/Time Associated Diagnosis Comme nts COVID-19 TEST [facility] Today 12/19/2020 7:50 EDT LAB PCR COVID-19 TESTING Routine 12/19/2020 7:50 EDT Resu lts for this procedure are i n the results section. documented in this encounter Results COVID-19 TEST [facility] LAB PCR (12/19/2020 7:50 EDT) Specimen Swab - Entire nasopharynx (body structur e) Performing Organization Address [facility] Phon e Number [facility] [address] [place] [address] SERVICES COVID-19 TESTING (12/19/2020 7:50 EDT) COVID-19 rt-PCR Negative Negative [facility] Result Comment: CENTER LAB[facility]ORY This test has not been FDA c leared or approved. This test has been authorized by FDA under an EUA for use by authorized laboratories. This test has been authorized only for detection of nucleic acid fro SERVICES m 2019-nCoV, not for any oth er viruses or pathogens. This test is only authorized for the duration of the declaration that circumstances exist justifying the authorization of emergency use of in vitro d iagnostic tests for detectio n and/or diagnosis of 2019-nCoV under section 564(b)(1) of Act, 21 U.S.C ?? 360bbb-3(b) (1), unless the authorization is terminated or revoked sooner. Negative results do not prec lude 2019-nCoV infection and should not be used as the sole basis for treatment or other patient management decisions. Negative results must be combined with clinical observa tions, patient history, and epidemiological informatio n. Testing was performed using the gorge SARS-CoV-2 assay ([employer] on the Gorge 6800 System Performing Lab Gorge 6800 [facility] Lab [facility] SERVICES Specimen Swab Performing Organization Address City[facility]/ZIP Code Phon e Number [facility] [address] [place] [address] SERVICES documented in this encounter Visit Diagnoses Not on filedocumented in this encounter Care Teams Test Engineering Manager Relationship Specialty Start Date End Date Timothy Bliss MD PCP - General 12/08/17 [address] [place] [place], [place] [address] documented as of this encounter
--- OUTSIDE RECORDS SUMMARY | 2022-06-12 06:21 | XMS_ITS | Encounter Summary ---
:1990 Author Organization [facility] Address [address] [place] [address] Care Team Providers Name Role Phone Timothy Bliss MD Primary Care Provider Reason for Visit Reason Onset Date Comments Other 03/14/2020 Encounter Details Date Type Department Care Team Description 03/14/2020 Telephone [facility] Bianca Parrish MD Other Infectious Disease - [address] [place], [place] [id number] [place] [address] [phone] (Wo rk) Social History Tobacco Use Types [...] Telephone Encounter - Maisha Bah RN - 03/14/2020 1243 EDT Called [facility] in [facility] medical records. Obtained ED note and scanned it in chart. Will discuss with Dr. Parrish. Unable to reach Ina at [phone] - phone not accepting calls at this time. elephone Encounter - Lisa Scott MA - 03/14/2020 1115 EDT Pt states she has been experiencing sweats and vomiting. States she went to [facility] ED, and they told her she was having panic attacks. Pt asking if Dr. Parrish could order blood work to see if something else could be going on. She can be reached [phone]. documented in this encounter Plan of Treatment Not on filedocumented as of this encounter Visit Diagnoses Not on filedocumented in this encounter Care Teams Shot Blaster Relationship Specialty Start Date End Date Timothy Bliss MD PCP - General 12/08/17 [place] [address] documented as of this encounter
--- OUTSIDE RECORDS SUMMARY | 2022-06-12 06:21 | XMS_ITS | Encounter Summary ---
:1990 Author Organization [facility] Address [address] [place] [address] Care Team Providers Name Role Phone Timothy Bliss MD Primary Care Provider Reason for Visit Reason Onset Date Comments Fever 01/21/2020 Encounter Details Date Type Department Care Team Description 01/21/2020 Telephone [facility] Felecia Douglas MD Fever Infectious Disease - [address] [place], [place] [id number] [place] [address] [phone] (Wo rk) Social History Tobacco Use Types [...] this encounter Miscellaneous Notes Telephone Encounter - Felecia Douglas MD - 01/21/2020 0877 EDT ID Note Received a page early on 01/21/20 AM from Kindra (Ina's mother) that patient was experiencing fevers. Ina was on her way, via ambulance, to the ED in [facility]. Kindra called because sherecalled that Dr. Parrish had instructed to notify ID any time that Ina had a fever. documented in this encounter Plan of Treatment Not on filedocumented as of this encounter Visit Diagnoses Not on filedocumented in this encounter Care Teams Granulating Blender Relationship Specialty Start Date End Date Timothy Bliss MD PCP - General 12/08/17 [address] [place] [address] documented as of this encounter
--- OUTSIDE RECORDS SUMMARY | 2022-06-12 06:22 | XMS_ITS | Encounter Summary ---
:1990 Author Organization [facility] Address [address] [place] [address] Care Team Providers Name Role Phone Timothy Bliss MD Primary Care Provider Reason for Visit Reason Onset Date Comments Other 01/13/2018 Encounter Details Date Type Department Care Team Description 01/13/2018 Telephone [facility] Araceli Dumont MD Other Cardiothoracic Surgery - Main [address] [facility] [address] [facility] [place] [id number] [place], [place] [id number] [phone] Social History Tobacco Use Types Packs/Day Years Used Date Current Every Day Smoker Cigarettes 0.25 Smokeless Tobacco: Never Used Alcohol Use Standard [...] this encounter Miscellaneous Notes Telephone Encounter - Ervin Padilla - 02/04/2018 1504 EDT Call to patient with appointment information for CT scheduled on 02/14/18. Spoke to patient's mother,advised her that patient needs to check in at 08:30 for 09:30 scan, prep is to push clear liquids and eat a light breakfast. Patient's mother verbalized understanding and states she will give patient the information. Telephone Encounter - Ervin Padilla - 02/04/2018 1442 EDT Attempted to contact patient about CT scan on 02/14/18. Contact numbers listed in [facility] are not valid. elephone Encounter - Shahrzad Cox - 02/04/2018 1416 EDT Patient scheduled for CT abdomen on 02/14/18 at 9:30 am, check-in at 8:30 am. Prep: push clears and eat light. Routing to Hayder Padilla MA to contact patient and advise. Telephone Encounter - Shahrzad Cox - 01/26/2018 1433 EDT Per BRIANDA Yarbrough for CT Abdomen w/contrast. New order now in [facility]. Email back to Kina in [facility] Radiology to schedule. Await response. elephone Encounter - Shahrzad Cox - 01/25/2018 1616 EDT Per Kina, based on the indications the recommended exam is a CT abdomen with contrast. Will review with Dr. Dumont. elephone Encounter - Shahrzad Cox - 01/25/2018 1128 EDT Email sent to Kina in OP Radiology to schedule patient's CT abd on 02/14/18, when she is returning to see ID. Await response. elephone Encounter - Shahrzad Cox - 01/14/[address] Dumont, patient does require repeat CT abdomen. Await order. elephone Encounter - Shahrzad Cox - 01/13/2018 1331 EDT Images from the original note were not included. Per Staff Message from Dr. Dumont... Per Staff Message from Dr. Dumont, patient requires CT abd but no note in Discharge Summary regarding repeat CT abd needed. Patient had CT abd done on 12/23/17. Patient has been scheduled for follow-up visit w/CXR on 01/25/[address] Dumont. Will review with Dr. Dumont to determine if patient require repeat CT abd noting 12/23/17 CT abd. documented in this encounter Plan of Treatment Not on filedocumented as of this encounter Visit Diagnoses Not on filedocumented in this encounter Care Teams Residency Coordinator Relationship Specialty Start Date End Date Timothy Bliss MD PCP - General 12/08/[address] [place] [address] documented as of this encounter
--- OUTSIDE RECORDS SUMMARY | 2022-06-12 06:22 | XMS_ITS | Encounter Summary ---
:1990 Author Organization [facility] Address [address] [place] [address] Care Team Providers Name Role Phone Timothy Bliss MD Primary Care Provider Encounter Details Date Type Department Care Team Description 01/14/[address] Orders [address] [facility] Gil Andrade Sp lenic infarct Cardiothoracic Surgery PA-C (Primary Dx) - [id number] [place] [address] [place], [address] [place] [address] (Wo rk) Social History Tobacco [...] of this encounter Visit Diagnoses Diagnosis Splenic infarct - Primary Other diseases of spleen documented in this encounter Care Teams Maple Products Supervisor Relationship Specialty Start Date End Date Timothy Bliss MD PCP - General 12/08/17 [address] [place] [address] documented as of this encounter
--- OUTSIDE RECORDS SUMMARY | 2022-06-12 06:22 | XMS_ITS | Encounter Summary ---
:[address] [facility] Address [address] [place] [address] Care Team Providers Name Role Phone Timothy Bliss MD Primary Care Provider Reason for Visit Reason Onset Date Comments Post-OP Follow Up 01/03/2018 Encounter Details Date Type Department Care Team Description 01/03/2018 Telephone [facility] Tana Parrish RN Post -OP Follow Up Cardiothoracic Surgery - [facility] [address] [place], [place] [id number] Social History Tobacco Use Types Packs/Day Years [...] Telephone Encounter - Tana Parrish RN - 01/03/2018 5183 EDT Cardiothoracic Surgery Update Message left for patient to call to discuss progress if she's calling home for her messages. I spokewith the nurse briefly at [facility] and she states she is stable andcontinues to recover there. documented in this encounter Plan of Treatment Not on filedocumented as of this encounter Visit Diagnoses Not on filedocumented in this encounter Care Teams Grain Trimmer Relationship Specialty Start Date End Date Timothy Bliss MD PCP - General 12/08/17 [address] [place] [address] documented as of this encounter
--- OUTSIDE RECORDS SUMMARY | 2022-06-12 06:22 | XMS_ITS | Encounter Summary ---
:1990 Author Organization [facility] Address [address] [place] [address] Care Team Providers Name Role Phone Timothy Bliss MD Primary Care Provider Reason for Visit Reason Onset Date Comments Other 12/31/2017 Encounter Details Date Type Department Care Team Description 12/31/[address] [facility] Bianca Parrish MD Other Infectious Disease - [address] [place], [place] [id number] [place] [address] [phone] (Wo rk) Social History Tobacco Use Types [...] this encounter Miscellaneous Notes Telephone Encounter - Ayanna Og, RN - 12/31/2017 0933 EDT Spoke with patient's mom, Kindra, on the phone. Kindra is concerned patient was transferred yesterday to [facility] and is not receiving pain medications. She said Ina is a mess. I let her know per our records it appears patient was prescribed morphine, Tramadol, and gabapentin all for a 90 day supply yesterday. Patient's mom said patient did not receive these prescriptions, and if she did she is in the hospital and cannot get these filled at a pharmacy. Advised patient's mom Kindra to discuss with patient's providers at [facility] and that I would let Dr. Parrish know. Kindra verbalizes understandingand agreement with plan. No barriers to learning noted. Dr. Parrish notified. Ayanna Og RN elephone Encounter - Princess Jose - 12/31/2017 0857 EDT Called mother back to obtain additional information to give to nurses. She would like to speak with Dr Parrish. Stated Ina advised her that [facility] has stopped most of the medications that she was on while inpatient at [facility]. Stopped gabapentin. Stated she was getting 30 mg of morphine every 3-4 hoursat [facility] and is now getting 15 mg morphine every 12 hours at [facility]. Had to fight to get Tylenol. Kindra would like a call back at [phone]. elephone Encounter - Lyudmila Mcneil - 12/31/2017 0731 EDT PAS Message: Kindra Clark (mom) please gimme a call at [phone] concerning - Ina Orellana documented in this encounter Plan of Treatment Not on filedocumented as of this encounter Visit Diagnoses Not on filedocumented in this encounter Care Teams Lane Attendant Relationship Specialty Start Date End Date Timothy Bliss MD PCP - General 12/08/17 [address] [place] [address] documented as of this encounter
--- OUTSIDE RECORDS SUMMARY | 2022-06-12 06:22 | XMS_ITS | Encounter Summary ---
:1990 Author Organization [facility] Address [address] [place] [address] Care Team Providers Name Role Phone Timothy Bliss MD Primary Care Provider Reason for Visit Reason Comments Post-OP Follow Up Here for follow up, xray tod ay. Follow Up (Other (Specify in Question)) - Authorization Not Required Specialty Diagnoses / Procedures Referred By Contact Refer red To Contact Cardiothoracic Surgery Diagnoses S/P MVR (mitral valve replacement) Agatha Ernst Parsee, Anahita M, PA MD [address] [facility] [address] [place], [place] [phone] Fax: Referral ID Status Reason Start Expiration Visits Visits Date Date Requested Authorized [id number] Authorization Specialty 1 1 Not Required Services 8 Required Encounter Details Date Type Department Care Team Description 01/25/2018 Office Visit [facility] Britany Dumont S/P MVR (mitral Cardiothoracic Surgery MD valve replacement) - Main [place] [address] [facility] (Primary Dx) [address] [facility] [address] [place] [address] [place] [phone] Social History Tobacco Use Types Packs/Day Years Used Date Former Smoker Cigarettes 0.25 Quit: 12/09/19 18 Smokeless Tobacco: Never Used Alcohol Use Standard Drinks/Week Comments No 0 (1 standard drink = 0.6 oz pure alcoho l) Sex Assigned at Date Recorded Not on file documented as of this encounter Last Filed Vital Signs Vital Sign Reading Time Taken Comments Blood Pressure 114/80 01/25/2018 1019 EDT Pulse 98 01/25/2018 1019 EDT Temperature 36.9 ??C (98.4 ??F) 01/25/2018 1019 EDT Respiratory Rate 12 01/25/2018 1019 EDT Oxygen Saturation 99% 01/25/2018 1019 EDT Inhaled Oxygen Concentration - - Weight 97.1 kg (214 lb) 01/25/2018 1019 EDT Height 180.3 cm (5' 11) 01/25/2018 1019 EDT Body Mass Index 29.85 01/25/2018 1019 EDT documented in this encounter [...] or older) documented as of this encounter Patient Instructions Patient InstructionsSarai Segal RN - 01/25/2018 10:[address] Dumont, she will call you after CT Scan with results. No lift, push, pull greater than ten pounds from your surgery date as follows: Full-Sternotomy (long incision over chest bone) 12 weeks If you are a woman, and had a full-sternotomy approach to your surgery, you should wear a bra for 12weeks post-operatively to protect the sternum (chest bone) and promote the healing process. If you had a mini-sternotomy (short incision over chest bone) you should wear a bra for six weeks post-operatively. Place a clean handkerchief or pad between the incision and your bra to keep the bra from irritating your incision. You may remove your bra and shower with soap and water daily and reapply your bra. Continue your long-term care follow-up with your Cupboard Builder/Heart Doctor and Primary Care Provider/Doctor as well as any other Providers/Doctors that you normally follow\ with. Following closely withyour Doctors for health care maintenance is very important. Continue to follow your Cardiac Diet. You will learn more about your Cardiac Diet at the Outpatient Cardiac Rehabilitation Program. If you are diabetic, continue to follow the Diabetic Diet or as per your Doctor. Follow-up with yourPrimary Care Provider/Doctor or Impersonator Character/Diabetes Doctor for your diabetes. Continue to ambulate/walk as reviewed in the Discharge Video. Continue Cardiac Rehabilitation at the Hospital closest to your home if you have started. This Program is an important part of your recovery process. This will include instruction and education on a life-long exercise Program as well as education around your cardiac/heart disease, diet and risk factors that you can control. If you have not started Cardiac Rehabilitation, contact your Primary Care Provider/Doctor or your Cupboard Builder/Heart Doctor for a referral to the Program with a Stress Test. For those of you who attendthe Program at [facility] ([facility]) you can have your Stress Test at the Cardiac Rehabilitation Program. They are located at [address] [place] [address] and theirtelephone number is . Follow the [place] [employer] Antibiotic Prophylaxis/Prevention Guidelines given and reviewed with you in a handout format today. Bring this with you to your Cardiology/Heart Doctor follow-up visits in the future so that your Cupboard Builder/Heart Doctor can inform you of any future updates regarding these Guidelines. Your prescription for an antibiotic should come from your Primary Care Provider/Doctor or Dentist. Wait three months from your surgery date to have dental work or dental cleanings unless you are having a dental problem then follow the Guidelines given to you listed above. If you have chest, jaw, neck, arm, back pain or pressure, nausea, sweating, shortness of breath, dizziness with sweating, palpitations (fluttering in your chest), fast heart beat or irregular heart beat, fainting (passing out) or near- fainting you should contact your Doctor. If you are having a medical emergency you should call 911. Contact our office (Cardiothoracic Surgery) at if you have any questions or problems as reviewed. documented in this encounter Progress Notes Britany Dumont MD - 01/25/2018 1030 EDT This note has been dictated through [employer]. Minor grammatical errors are likely to be present. CT SURGERY Postop Clinic note 01/25/18 Patient is a 27 y.o. WF who on 12/20/2018, underwent: On pump mitral valve replacement with 29 mm SJM Epic tissue, mitral valve. Serial #[id number] Intra-Op findings: 3.Valves: Mitral valve with severe mitral valve regurgitation on preop PATRICIA. Vegetation on anterior and posterior leaflet. Left atrial vegetation on the left atrial posterior wall. No annular abscess. Once leaflet examined under direct visualization, vegetation with perforation appreciated. No erosion of left atrial lesion into endocardium. Prosthetic valve seated well without any paravalvular leak. Mean gradient of 2 mmHg, peak gradient 6 mmHg. 4. Function: Preserved pre and post. SUBJECTIVE: Ina Orellana was seen in the office today. In general, she seems to be doing quite well; she continues to be part of the [facility] swing bed admission for IV antibiotic therapy and [facility]. I. Clinically A. Hemodynamics: No issues B. Incision: No issues C. Medications: No reactions to medications continue to be on IV gentamicin II. Activity Ambulating without difficulty III. Follow-ups Due to to see Dr. Veena Parrish. ROS (f/c/cough/n/v/bm/UOP): 14-point ROS was negative except for persistence of presenting rash. OBJECTIVE: VS: Blood pressure 114/80, pulse 98, temperature 36.9 ??C (98.4 ??F), temperature source Temporal, resp. rate 12, height 180.3 cm (71), weight 97.1 kg (214 lb), SpO2 99 %. Gen: NAD, WDWN, overweight body habitus. Ambulates without assistance. Accompanied by no one for today's encounter. Neuro: Awake, alert, oriented X3, CN II-XII grossly intact. Psych: Cooperative for exam with appropriate questions.Appropriate mood and affect HEENT: NCAT. EOMI, PERRL, stable dentition CV: RRR no M/R/G. Sternal incision is clean, dry and intact. Sternum is stable without any clicks ormobility with cough. Pulm: CTA bilat, no wheezes or rhonchi Ext: warm, well perfused, no edema. All 4 extremities with FROM and 5+ strength Chest XRay reading today: The lungs have cleared, pleural effusions have resolved and the cardiac silhouette and pulmonary vascularity are now normal. There is no pneumothorax. Sternal wires are stable. Right PICC remains in satisfactory position. A bioprosthetic mitral valve is present. ?? Impression: Satisfactory post-op chest. I personally reviewed the above noted images. 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 She continues to be on IV antibiotics under the care of Dr. Carrie Parrish of infectiousdisease. Her incision has healed very well and her sternum is stable. Her chest x-ray looks good andshe should be enrolled in cardiac rehab. In discussion with Dr. Parrish the plan is for a prolonged course of IV antibiotics for suppression therapy. The patient understands that she is to treat infection aggressively. 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 This has not been reevaluated by imaging and we will arrange that for her. Once the results are acquired I will call with them. Otherwise she will need to have follow-up with a livestock ranch hand; to evaluate the bowel long-term as she is very young with a prosthetic tissue valve. She continues to have anemia and she had this prior to surgery; this is a chronic condition for her and she does have follow-up for this. PLAN: 1. Activity - May drive (she does not drive) when not on pain medication otherwise weight-lifting restriction per routine and as outlined in the patient education handout. 2. Continue close follow up with her PCP Dr. Timothy Bliss who is doing to follow- up for her elevated LFTs, hepatitis C and anemia and Cupboard Builder. 3. Follow-up in this office on a PRN basis; we will do the follow-up of the CT of the abdomen via telephone. 4. I would not change her medications at this present time, the final list is as follows: Current Outpatient Prescriptions: acetaminophen (TYLENOL) 500 mg tablet alteplase (CATHFLO ACTIVASE) 2 mg injection ascorbic acid, vitamin C, (VITAMIN C) 500 mg tablet docusate sodium (COLACE) 100 mg capsule dronabinol (MARINOL ORAL) ferrous sulfate 324 mg (65 mg iron) tablet,delayed release (DR/EC) gabapentin (NEURONTIN) 300 mg capsule gentamicin (GARAMYCIN) 70 mg/50 mL melatonin 3 mg tablet,disintegrating methadone (DOLOPHINE) 10 mg/mL solution Multivitamins with Minerals tablet tablet ondansetron, PF, (ZOFRAN) 4 mg/2 mL solution penicillin G potassium 4 Million Units in dextrose 5% 150 mL sodium chloride 0.9 % flush syringe traMADol (ULTRAM) 50 mg tablet No current facility-administered medications for this visit. Isela Dumont MD documented in this encounter Plan of Treatment Not on filedocumented as of this encounter Visit Diagnoses Diagnosis S/P MVR (mitral valve replacement) - [facility] valve replaced by other means documented in this encounter Discontinued Medications Medication Sig Discontinue Reason Start Date End Date aspirin 81 mg EC tablet Take 1 Tab by mouth Patient Stopped 018 01/25/2018 daily. Taking bisacodyl (DULCOLAX) 10 Place 1 Suppository Patient Stopped 018 01/25/2018 mg suppository rectally daily as Taking needed (constipation). diphenhydrAMINE Take 1 Cap by mouth Patient Stopped 12/30/2017 (BENADRYL) 50 mg as needed for up to Taking capsuleIndications: 1 dose (hives). Enterococcus faecalis infection, Subacute bacterial endocarditis ipratropium-albuterol Take 3 mL by Patient Stopped 12/30/2017 (DUONEB) 0.5 mg-3 mg(2.5 nebulization every 6 Taking mg base)/3 mL nebulizer hours as needed for solution Wheezing. metoprolol (LOPRESSOR) Take 1 Tab by mouth Patient Stopped 12/31/19 18 01/25/2018 50 mg tablet 2 times daily. Taking morphine (MS IR) 30 mg Take 1 Tab by mouth Patient Stopped 12/31/19 18 01/25/2018 tablet every 3 hours as Taking needed for Pain. Daily Max: 240 mg gentamicin 50 mg in Inject 50 mg into Dose adjustment 12/30/2017 01/25/2018 sodium chloride 0.9 % 50 the vein every 12 mLIndications: hours for 42 days. Enterococcus faecalis Tentative end date infection, Subacute 02/01/18. Or continue bacterial endocarditis until follow-up appointment with ID. Compound in patient ready to use form. Pharmacy may adjust diluent and/or volume. heparin 5,000 unit/mL Inject 1 mL into the Patient Stopped 12/31/19 18 01/25/2018 injection skin every 12 hours. Taking senna (SENOKOT) 8.6 mg Take 2 Tabs by mouth Patient Stopped 018 01/25/2018 tablet 2 times daily. Taking documented as of this encounter Historical Medications This list may reflect changes made after this encounter. Medication Sig Dispensed Refills Start Date End Date gentamicin (GARAMYCIN) 70 Inject 70 mg/kg into 0 02/14/2018 mg/50 mL the vein every 12 hours. melatonin 3 mg Take by mouth. 0 2017 tablet,disintegrating dronabinol (MARINOL ORAL) Take by mouth. 0 02/14/2018 added in this encounter Care Teams Demolition Hammer Operator Relationship Specialty Start Date End Date Timothy Bliss MD PCP - General 12/08/17 [address] [place] [address] documented as of this encounter
--- OUTSIDE RECORDS SUMMARY | 2022-06-12 06:23 | XMS_ITS | Encounter Summary ---
:1990 Author Organization [facility] Address [address] [place] [address] Care Team Providers Name Role Phone Timothy Bliss MD Primary Care Provider Encounter Details Date Type Department Care Team Description 12/28/2017 Documentation Visit [facility] Michelle Silvestre RN Home Infusion [address] [facility] [place] [address] [facility] [address] [place] [address] Social History Tobacco Use Types Packs/Day Years [...] documented as of this encounter Progress Notes Carroll Doherty [facility] - 12/28/2017 0954 EDT PT never came on service Michelle Wallis RN - 12/28/2017 0954 EDT Patient: Ina Orellana is a 27 y.o. female. Allergies: Review of patient's allergies indicates no known allergies. LDA: PICC Double Lumen 12/11/17 Brachial CAJ with 3CG Valved Power Inject (Active) Site Assessment Clean/Dry/Intact 12/27/2017 20:03 Red Lumen Status Blood returned;Flushed 12/27/2017 22:58 Purple Lumen Status Other (Comment) 12/28/2017 9:18 Dressing Status/Care Clean/Dry/Intact 12/27/2017 20:03 Dressing Type Sorbaview 12/27/2017 8:44 Dressing Change Due 01/02/18 12/26/2017 10:35 Needleless Connector Changed 12/27/17 12/27/2017 13:38 Exposed Catheter (cm) 3.5 cm 12/26/2017 10:35 Assessment: Ina Orellana is a new patient coming on home infusion service. Medication Order Review Admission Criteria: Cultural/denominational barriers to home infusion therapy: No Language other than Fijian: No Vision, speech, hearing, or cognitive impairment: No Clinically unstable and difficult to manage or not safe in the home setting: No History of drug abuse : Yes (Medical team is aware and do not feel pt is at rist at home) Patient has potentially unsafe situation for home intravenous medication administration: No History of noncompliance with home infusion therapies: No Dwelling/living situation unsuitable for home infusion (e.g. unsanitary, lacks electricity or refrigeration): Yes (Discussed need for refrigeration of medication, they plan to get a mini fridge upon d/c) Declined home health services: No Declined regular follow up visit with physician provider: No Home infusion service provided will meet patient's needs: Yes Pt has a history of IV drug use. Before taking pt on service, we have been assured by case management that pt is not at high risk for using her PICC line for anything other than medication provided by us. We have been in touch with the ID attending who has addressed this concern directly with the pt and will do so again before d/c. She will also document the discussion in prism, so we can forward that information on to [facility]. [facility] will make their own independent decision regarding their ability to take pt on service. If they are unwilling to take pt, we will be unable to provide the service as well. Rights & Responsibilities: Patient Information & Assignment Agreement: Yes Pharmacy/providers contact information including assistance when organization is closed: Yes Scope of Services/Hours of Operation: Yes Product Administration Education: Education tailored to meet needs of patients language and learning preferences: Yes Written information provided: Yes Verbal instructions provided: Yes Review of care plan: Yes Administration method and medical equipment : Yes Drug education: Yes Parenteral access device care and maintenance: Yes Enteral nutrition education: No Aseptic Technique: Yes Hand Hygiene: Yes Pain Control: Yes Natural Disaster: Yes Medication management/reconciliation/MyHealth Online: Yes Food/Drug Interactions: No Hazardous Drugs and Spill Kit: No Home Infusion Education and Evaluation: Fall risk screening was completed during this visit.The patient is considered to be at high risk forfalls for the reasons listed below. - patient has IV access - patient uses durable medical equipment - DME currently being used: pump Follow-up actions discussed with the patient are listed below. - Discussed fall risk. Education provided on fall risk awareness. - Discussed with patient/family fall risks associated with use of durable medical equipment. - Patient/Family verbalized understanding if fall risk education. Home infusion education provided: Yes Home infusion education recipient: Patient ;Friend Home Infusion Education: Verbal - talking points;Material provided Home infusion education evaluation: Potential to become independent - [facility] follow up / instruction General Information: Home Health Contacted?: Yes Delivery process: Yes Home Health Agency Contact Info: CIPRIANO Perez ([phone]) Laboratory Contacts: [facility] [phone] Referral Source: Nurse/Neurology Tech Plan: Initial teach completed with pt and her significant other Timothy for home IV penicillin via CADD solispump, and gentamycin via eclipse elastomeric pump. Pt has a DL PICC. Patient and friend instructed in the use of CADD obrien pump, including battery change, attaching set, resetting infusion profile, priming and starting the pump. Alarms were reviewed. Pt/Timothy verbalized understanding of all teaching including the care, handling, refrigeration and storage of the medication and supplies. Pt confirmed that they will have proper refrigeration capacity at home once d/c'ed. Pt also instructed in flushing PICC, CADD obrien pump administration, eclipse store and administration and potential problems and action to take. They were able to return demonstration flushing PICC and CADD obrien pump/eclipse administration with practice equipment. Teaching packet reviewed with, and sent home with patient. [facility] will see patient 12/28 for first home dose. Patient has contact information for Home Infusion Pharmacy and [facility] if questions arise. We will follow up with patient via phone on 12/29. Pt has a history of IV drug use. Before taking pt on service, we have been assured by case management that pt is not at high risk for using her PICC line for anything other than medication provided by us. We have been in touch with the ID attending who has addressed this concern directly with the pt and will do so again before d/c. She will also document the discussion in prism, so we can forward that information on to [facility]. [facility] will make their own independent decision regarding their ability to take pt on service. If they are unwilling to take pt, we will be unable to provide the service as well. Michelle Silvestre RN 12/28/2017 9:58 documented in this encounter Plan of Treatment Not on filedocumented as of this encounter Visit Diagnoses Not on filedocumented in this encounter Care Teams Mold Finisher Relationship Specialty Start Date End Date Timothy Bliss MD PCP - General 12/08/17 [place] [address] documented as of this encounter
--- OUTSIDE RECORDS SUMMARY | 2022-06-12 06:23 | XMS_ITS | Encounter Summary ---
:[address] [facility] Address [address] [place] [address] Care Team Providers Name Role Phone Nick Kumar MD Primary Care Provider Unavailable Reason for Visit Reason Onset Date Comments Other 06/01/2011 Encounter Details Date Type Department Care Team Description 06/01/2011 Telephone [facility] Ashley Tolentino LICSW Other Services - [facility] [address] [facility] [address] [place], [place] [id number] [place] [id number] [phone] Social History Tobacco Use Types Packs/Day Years Used Date Current Every Day Smoker Cigarettes 0.5 Alcohol Use Standard Drinks/Week Comments No 0 (1 standard drink = 0.6 oz pure alcoho l) Sex Assigned at Date Recorded Not on file documented as of this encounter Miscellaneous Notes Telephone Encounter - Ashley Tolentino LICSW - 06/01/2011 1110 EDT Tried to call Ina to discuss treatment plans. Left message for her to contact me. RADHA Monte documented in this encounter Plan of Treatment Not on filedocumented as of this encounter Visit Diagnoses Not on filedocumented in this encounter Care Teams Salvage Clerk Relationship Specialty Start Date End Date Nick Kumar MD PCP - General 05/18/11 12/07/17 documented as of this encounter
--- OUTSIDE RECORDS SUMMARY | 2022-06-12 06:23 | XMS_ITS | Encounter Summary ---
:1990 Author Organization [facility] Address [address] [place] [address] Care Team Providers Name Role Phone Nick Kumar MD Primary Care Provider Unavailable Encounter Details Date Type Department Care Team Description 05/27/2011 Orders Only [facility] Anita Mendes Preg nant state, incidental; Women's Services - [facility] depe terri, antepartum [address] [place] [address] [place] [address] Social History Tobacco Use Types Packs/Day Years Used Date Never Assessed Sex Assigned at Date Recorded Not on file documented as of this encounter Plan of Treatment Not on filedocumented as of this encounter Procedures Procedure Name Priority Date/Time Associated Comments Diagnosis CHLAMYDIA/N. Routine 05/28/2011 10:45 state, Results for this GONORRHOEAE AMPLIFIED EDT incidental proced ure are in RNA the results section. documented in this encounter Results BACTERIAL CULTURE, URINE (05/28/2011 15:13 EDT) Specimen Description Urine [facility] Result Less than 10,000 [facility] CFU/ml Mixed gram positive growth Report Status Final [facility] 05/29/2011 Specimen Urine (substance) Performing Organization Address City/State/ZIP Code Phon e Number [facility] [address] [place] [address] SERVICES [facility] [address] [place] [address] CHLAMYDIA/GC AMPLIFIED (05/28/2011 10:45 EDT) Specimen Endocervix [facility] Description LAB Chlamydia Result No Chlamydia [facility] trachomatis DNA LAB detected by automobile painter mediated amplification. GC Result No Neisseria [facility] gonorrhoeae DNA LAB detected by automobile painter mediated amplification. Specimen Other (qualifier value) Performing Organization Address City/State/ZIP Code Phon e Number [facility] [address] [place] [address] SERVICES [facility] [address] [place] [address] documented in this encounter Visit Diagnoses Diagnosis state, incidental Drug dependence, antepartum(648.33) Drug dependence, antepartum documented in this encounter Care Teams Computer Networker Relationship Specialty Start Date End Date Nick Kumar MD PCP - General 05/18/11 12/07/17 documented as of this encounter
--- OUTSIDE RECORDS SUMMARY | 2022-06-12 06:23 | XMS_ITS | Encounter Summary ---
:1990 Author Organization [facility] Address [address] [place] [address] Care Team Providers Name Role Phone Nick Kumar MD Primary Care Provider Unavailable Encounter Details Date Type Department Care Team Description 05/28/[address] [facility] Amos Belle MD Women's Services - [address] [id number] [place] [address] [place], [place] [id number] Social History Tobacco Use Types Packs/Day Years Used Date Current Every Day Smoker Cigarettes 0.5 Alcohol Use Standard Drinks/Week Comments No 0 (1 standard drink = 0.6 oz pure alcoho l) Sex Assigned at Date Recorded Not on file documented as of this encounter Plan of Treatment Not on filedocumented as of this encounter Procedures Procedure Name Priority Date/Time Associated Diagnosis Comme nts PAP TEST- RESULT Routine 05/28/2011 0:00 EDT Resu lts for this ONLY procedure are i n the results section. documented in this encounter Results PAP TEST- RESULT ONLY (05/28/2011 0:00 EDT) Pathology Report: CYTOPATHOLOGY REPORT ? [facility] ? LAB Reports generated via electr onic interface contain original data; ? however they are lacking the format of the original report. ? Caution should be taken when reading/interpreting unformatted reports. ? Name: ? INA ORELLANA ? Accession #: ? [id number] ? : ? 1990 (Age: 21) ??F ?Collect Date: ? 05/28/2011 ? Location: ? OBGYN ? Receive Date: ? 05/29/2011 ? Provider: ?AMOS C YO JUNITO MD ? Copy to: ?GOLDIE A M CDONALD MD ? Specimen/Source: ? Pap Test, Cervix/Endocervix, ThinPrep Imaging System ? with manual evaluation ? Last Menstrual Period: ? Menstrual/ Status: ? : initial OB visit ? SPECIMEN ADEQUACY ? Satisfactory for Eval uation ? - transformation zone compon ent present ? GENERAL CATEGORIZATION ? Epithelial Cell Abnor mality ? INTERPRETATION ? Squamous Cell Abnorma lity - Atypical squamous cells, cannot exclude ? high grade squamous ? intraepithelial lesion (ASC- H). ? EDUCATIONAL NOTES/RECOMMENDA TIONS ? FA recommends breto wing the 2006 Consensus Guidelines for the Management of Women with Abnormal Cervi grace Cancer Screening Tests (JLGTD, ? 2007;11(4):201-222). ??Conse nsus guidelines are available online at ? www.ASCCP.org. ? Document reviewed and electr onically signed by: ? DARCY FARIAS MD ? Report Date: ??09/30/ 2011 13:15 ? End of Report ? Specimen Performing Organization Address City/State/ZIP Code Phon e Number [facility] [address] [place] [phone] SERVICES [facility] [address] [place] [address] documented in this encounter Visit Diagnoses Not on filedocumented in this encounter Care Teams Aquarium Specialist Relationship Specialty Start Date End Date Nick Kumar MD PCP - General 05/18/11 12/07/17 documented as of this encounter
--- OUTSIDE RECORDS SUMMARY | 2022-06-12 06:23 | XMS_ITS | Encounter Summary ---
:1990 Author Organization [facility] Address [address] [place] [address] Care Team Providers Name Role Phone Nick Kumar MD Primary Care Provider Unavailable Encounter Details Date Type Department Care Team Description 06/12/2011 Hospital Encounter [facility] - Merary Mederos MD [address] [address] [place] [address] (Wo rk) Social History Tobacco Use Types Packs/Day Years Used Date Current Every Day Smoker Cigarettes 0.5 Alcohol Use Standard Drinks/Week Comments No 0 (1 standard drink = 0.6 oz pure alcoho l) Sex Assigned at Date Recorded Not on file documented as of this encounter Discharge Disposition Disposition Code Departure Means Destination Home or Self Correction documented in this encounter Plan of Treatment Not on filedocumented as of this encounter Visit Diagnoses Not on filedocumented in this encounter Care Teams Lending Consultant Relationship Specialty Start Date End Date Nick Kumar MD PCP - General 05/18/11 12/07/17 documented as of this encounter
--- OUTSIDE RECORDS SUMMARY | 2022-06-12 06:23 | XMS_ITS | Encounter Summary ---
:1990 Author Organization [facility] Address [address] [place] [address] Care Team Providers Name Role Phone Nick Kumar MD Primary Care Provider Unavailable Encounter Details Date Type Department Care Team Description 04/19/2012 Results Only [facility] Raghavendra Mahajan ea, PA Laboratory Services - [place] [address] [place] [address] [address] [place] [place] [address] [phone] Social History Tobacco Use Types Packs/Day Years [...] Priority Date/Time Associated Comments Diagnosis HCV RNA DETECT QUANT Routine 04/19/2012 13:58 Res ults for this EDT procedure are i n the results section. SYPHILIS SEROLOGY Routine 04/19/2012 13:58 Result s for this EDT procedure are i n the results section. CHLAMYDIA/N. Routine 04/19/2012 13:34 Results for this GONORRHOEAE AMPLIFIED EDT proced ure are in RNA the results section. PAP TEST- RESULT ONLY Routine 04/19/2012 0:00 Res ults for this EDT procedure are i n the results section. documented in this encounter Results SYPHILIS SEROLOGY (04/19/2012 13:58 EDT) Syphilis Serology Interpretation: JOSE STRICKLAND NonreactiveComment: Reference Range: Nonreactive Specimen Performing Organization Address [facility] Phon e Number [facility] [address] [place] [address] SERVICES [facility] [address] [place] [address] HEPATITIS C VIRUS (HCV) RNA DETECTION AND Q (04/19/2012 13:58 EDT) Pathologist [facility] HCV Quant by RT [id number] Undetected IU/mL [facility] PCR Comment: LAB (Note) Result in log IU/mL is 5.55. The quantification range of this assay is 43 IU/mL to 69,000,000 IU/mL (1.63 log IU/mL to 7.84 log IU/mL). Testing was performed by the K[employer] AmpliPrep/KATY Taq Man HCV Test ([employer] Performed by: [facility] , [address] [place], [place] [address], Lab Dir: ??Frankl rosa Camarillo III, M.D. Specimen Performing Organization Address [facility] Phon e Number [facility] [address] [place] [address] SERVICES [facility] [address] [place] [address] CHLAMYDIA/GC AMPLIFIED (04/19/2012 13:34 EDT) [facility] [address] Specimen Unknown [facility] Description LAB Chlamydia Result No Chlamydia [facility] trachomatis DNA LAB detected by datastage architect mediated amplification. GC Result No Neisseria [facility] gonorrhoeae DNA LAB detected by datastage architect mediated amplification. Specimen Performing Organization Address [facility] Phon e Number [facility] [address] [place] [address] SERVICES [facility] [address] [place] [id number] PAP TEST- RESULT ONLY (04/19/2012 0:00 EDT) Pathologist [facility] Pathology Report: CYTOPATHOLOGY REPORT [facility] Reports generated via electronic interface contain neeru ginal data; however they are lacking the format of the original re port. Caution should be taken when reading/interpreting unfo rmatted reports. Name: ? INA ORELLANA ? Accession #: ? [id number] : ? 1990 (Age: 22) ??F ?Collect Date: ? 04/06 Location: ? [facility] ? Receive Date : ? 04/20/2012 Provider: ?MARQUIS WHITTEN Copy to: ? Specimen/Source: ? Pap Test, Cervix, ThinPrep Imaging System with manual evaluation Last Menstrual Period: ? [id number] Menstrual/ Status: ? Post Previous Gynecologic Pathology: ? Yes: previous pap atypical Other: ? Additional clinical information: no previous treatment ? SPECIMEN ADEQUACY ? Satisfactory for Evaluation - transformation zone component present GENERAL CATEGORIZATION ? Negative for Intraepithelial Lesion or Malignan cy INTERPRETATION ? Reactive cellular ramesh nges associated with inflammation present (includes repair). ? Document reviewed and electronically signed by: ? LORRI ANGUIANO MD [facility] ? Report Date: ??04/27/2012 11:50 End of Report Specimen Performing Organization Address City/State/ZIP Code Phon e Number [facility] [address] [place] [address] SERVICES [facility] [address] [place] [address] documented in this encounter Visit Diagnoses Not on filedocumented in this encounter Care Teams Line O Scribe Operator Relationship Specialty Start Date End Date Nick Kumar MD PCP - General 05/18/11 12/07/17 documented as of this encounter
--- OUTSIDE RECORDS SUMMARY | 2022-06-12 06:23 | XMS_ITS | Encounter Summary ---
:1990 Author Organization [facility] Address [address] [place] [address] Care Team Providers Name Role Phone Nick Kumar MD Primary Care Provider Unavailable Alex Bliss MD Primary Care Provider Reason for Referral Radiology Services (Routine) - Receiving Office to Obtain Authorization Specialty Diagnoses / Procedures Referred By Contact Refer red To Contact Diagnoses S/P MVR (mitral valve replacement) Agatha Ernst PA Procedures CHEST PA AND LATERAL [address] [facility] [address] [place] [address] Referral ID Status Reason Start Expiration Visits Visits Date Date Requested Authorized [id number] Receiving Office 12/30/2017 1 1 to Obtain Authorization ollow Up (Other (Specify in Question)) - Authorization Not Required Specialty Diagnoses / Procedures Referred By Contact Refer red To Contact Cardiothoracic Surgery Diagnoses S/P MVR (mitral valve replacement) Agatha Ernst Parsee, Anahita M, PA MD [address] [place], [place] [phone] Fax: Referral ID Status Reason Start Expiration Visits Visits Date Date Requested Authorized [id number] Authorization Specialty 1 1 Not Required Services 8 Required Question Answer Reason for Request: Post cardiac surgery Scheduling Comments (optional ? 4-6 weeks describe specific scheduling needs if applicable): Expected Discharge Date (Inpatient Only): 01/20/2018 (Routine) - Receiving Office to Obtain Authorization Specialty Diagnoses / Procedures Referred By Contact Refer red To Contact Agatha Ernst P, P A [address] [facility] [address] [place] [address] Referral ID Status Reason Start Expiration Visits Visits Date Date Requested Authorized [id number] Receiving Office Specialty 1 to Obtain Services 8 Authorization Required (Routine) - Receiving Office to Obtain Authorization Specialty Diagnoses / Procedures Referred By Contact Refer red To Contact Agatha Ernst P, P A [address] [facility] [address] [place] [address] Referral ID Status Reason Start Expiration Visits Visits Date Date Requested Authorized [id number] Receiving Office Specialty 1 1 to Obtain Services 8 Authorization Required Comments - Check in at Registration on level 3 (s treet level) at [facility] 45 minutes prior to your scheduled appointment with the surgeon. - If you have a chest x-ray prior to you r appointment with the surgeon, contact the surgeon's office at or [phone] to see if this x-ray will still be needed. Encounter Details Date Type Department Care Team Description 12/07/2017 [facility] Keena Padilla MD [address] [place] [address] Acute infective endocarditis, due to uns pecified organism (Primary Dx); - Encounter Cardiothoracic Gerald Castro MD [address] [address] Non-rheumatic mitral regurgitation; 12/30/2017 Surgery Unit Isabelle Garcia MD 111 [facility] [address] [place] [address] Gram-positive bacteremia; [facility] [address] [facility] [address] [place], [place] [address] Rash; [place] [address] Chronic hepatitis C without hepatic coma ([facility]); [phone] Bacteremia due to Enterococcus; HIV (human immu nodeficiency virus infection) ([facility]); Anemia, unspeci fied type; Acute bacterial endocarditis; Adjustment diso rder with mixed anxiety and depressed mood; Acute post-oper ative pain; Chronic, contin uous use of opioids; Enterococcus fa ecalis infection; Subacute bacter ial endocarditis; History of intr avenous drug use in remission; S/P MVR (mitral valve replacement) Social History Tobacco Use Types Packs/Day Years Used Date Current Every Day Smoker Cigarettes 0.25 Smokeless Tobacco: Never Used Alcohol Use Standard Drinks/Week Comments No 0 (1 standard drink = 0.6 oz pure alcoho l) Sex Assigned at Date Recorded Not on file documented as of this encounter Last Filed Vital Signs Vital Sign Reading Time Taken Comments Blood Pressure 110/72 12/30/2017 1420 EDT Pulse 84 12/24/2017 0549 EDT Temperature 35.8 ??C (96.4 ??F) 12/30/2017 1420 EDT Respiratory Rate 16 12/30/2017 1420 EDT Oxygen Saturation 100% 12/30/2017 1420 EDT Inhaled Oxygen Concentration - - Weight 95.5 kg (210 lb 9.6 oz) 12/30/2017 0553 EDT Height 172.7 cm (5' 8) 12/07/2017 1554 EDT Body Mass Index 32.02 12/07/2017 1554 EDT documented in this encounter Functional Status [...] as of this encounter Discharge Diagnoses Diagnosis I33.0 Acute and subacute infective endoc arditis-I33.0[ICD-10-CM] F11.20 Opioid dependence, uncomplicated- F11.20[ICD-10-CM] D62 Acute posthemorrhagic anemia-D62[ICD -10-CM] 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 9[ICD-10-CM] R10.9 Unspecified abdominal pain-R10.9[I CD-10-CM] I44.0 Atrioventricular block, first degr ee-I44.0[ICD-10-CM] R63.4 Abnormal weight loss-R63.4[ICD-10- CM] F17.210 Nicotine dependence, cigarettes, uncomplicated-F17.210[ICD-10-CM] R23.3 Spontaneous ecchymoses-R23.3[ICD-1 0-CM] B18.2 Chronic viral hepatitis C-B18.2[IC D-10-CM] K02.9 Dental caries, unspecified-K02.9[I CD-10-CM] G89.29 Other chronic pain-G89.29[ICD-10- CM] D73.3 Abscess of spleen-D73.3[ICD-10-CM] Z68.33 Body mass index (BMI) 33.0-33.9, adult-Z68.33[ICD-10-CM] documented in this encounter Discharge Summaries Britany Dumont MD - 12/30/2017 1358 EDT Cardiothoracic Surgery Discharge Summary Primary Care Provider: Alex Bliss Attending Physician: Britany Dumont MD Admit Date: 12/07/2017 Discharge Date: 12/30/17 Disposition: Transfer to another facility [facility] Problems and Procedures Admitting Diagnosis: Acute infective endocarditis, due to unspecified organism Discharge Diagnosis: 1. Acute infective enterococcal mitral valve endocarditis s/p urgent MVR 12/20/17 Dr. Dumont 2. Hepatitis C 3. Depression 4. Anxiety 5. 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 Acute blood loss anemia s/p PRBC post op, H/H 8.6/27.9 at discharge Operations and Procedures 12/20/17 Urgent On pump mitral valve replacement with a [address] Bebeto Epic tissue valve. Reference number [id number]. Serial number [id number]; date of expiration 04/08/2021 12/11/17 PICC placement Consulting services: 1. Acute pain service 2. Infectious disease 3. Nutrition 4. Psychology History of Presentation The patient is a 27-year-old WF who has a history of hepatitis C, depression, anxiety, cocaine and heroin drug abuse and is within the last 3 years currently on methadone maintenance who experienced jerel developing on her lower extremities approximately 2 weeks ago. This rash then developed on her upper extremities within the last week and during this time she has also noted some increasing in shortness of breath. The patient states that she can hardly go up a flight of stairs at her home withoutgetting extremely short of breath and very fatigued. She has not been around any sick contacts and cannot discern where the source of this is from. The patient did not try any types of creams on the rash and denies any itching. ?? The patient did present for evaluation the day before yesterday as she noticed that the rash was increasing and the shortness of breath was becoming more severe, and she was noted to have a fever at that time. Such being the case, she was referred from her primary care office to the hospital for further evaluation and states that she had defervesced by that time without taking any antipyretics. ?? The patient denies any recent drug abuse, dental caries or active infection elsewhere. She denies any history of infection or heart disease. Her father did pass of endocarditis approximately 6 months ago, and she attributes that to him using IV drugs. ?? Hospital Course Ish Orellana, 27 y.o., female was admitted to [facility] on 12/07/2017 via the Medicine Service. She was brought to the operating room on 12/20/[address] Dumont performed urgent MVR as above. Please refer to Dr. Dumont's dicated operative note for details. She tolerated the procedure well and brought to the surgical ICU for recovery.She initially required pharmacologic support of intravenous pressors and ionotropes. She was extubated from the ventilator on the night of surgery 19:18. By post operative day #1 all drips were weaned to off and She was transferred to the intermediate cardiac care unit for continued rehabilitation. APS was consulted on POD #0 due to h/o IVDA and suboxone use. They followed along for her post op course. DC recs are daily Methadone, PRN MS Contin q3H, PRN Tramadol q6H and PRN Tylenol q6H. Infectious disease followed along re: enterococcus bacteremia and endocarditis. Final discharge recommendations are: Continue penicillin G 4 million units IV q 4 hours through 01/25/18, 42 days from surgical date. Continue gentamicin 50mg IV q 12 hours through 01/25/18 42 days post surgery I advised Ish on the need for antibiotics prior to dental procedures (amoxicillin 2g po x1 30-60 minutes prior to dental work) and need for blood cultures prior to antibiotics. Advised Ish to call her repairer finished metal to determine more definitive control plan (advised IUD) She did have abdominal pain on POD#[address] abdomen and pelvis. CT showed postsurgical changes to the chest, splenic hypodensities that may represent old areas of infarction or splenic abscesses, and small amount of free fluid and fat stranding adjacent to the pancreas extending into the mesentery and dependent pelvis. She had acute blood loss anemia post op requiring a total of 3 PRBC. H/H 8.6/27.9 at discharge. Diuretics were started and she responded appropriately. She was started on beta blockade and this was optimized. Routine postoperative and home medications were started and a diet was advanced. Psychology consult obatined as well. Recs are: 1. Provide psychotherapeutic support and resources for community-based mental health services as appropriate. Ish continues to indicate that her extant outpatient services are sufficient for meeting her mental health and substance abuse recovery needs and that she will continue accessing these services upon her return to the community. Referral to Addiction Treatment Program was therefore determined unnecessary. 2. Provide cognitive-behavioral interventions to help Ish adaptively cope with medical-related stressors, anxiety, and pain management. 3. Engage Ish in motivational interviewing to help her sustain her Maintenance level of willingness to treat needs associated with her history of IVDU. Providers may help Ish maintain this motivation by reinforcing the internal rewards or benefits she receives from being clean and further enc ouraging her connections with follow-up supports. 4. Provide strength-based interventions to promote resilience. All tubes, lines, and epicardial pacing wires were removed without incident. She voided normally after her garcia was removed and their renal function remained preserved 9/0.79. The remainder of her hospital course was uneventful and by postoperative days # 10 She had met all criteria for discharge to [facility] for duration of IV ABX therapy. Pain was controlled on oral medications. She has walked 5 minutes and gone up and down stairs. She was tolerating a regular diet and had a bowel movement. Allergies and Immunizations No Known Allergies There is no immunization history on file for this patient. Transition of Care Plans Condition at Discharge Improved Assessment at Discharge Blood pressure 130/79, pulse 84, temperature (!) 35.5 ??C (95.9 ??F), temperature source Tympanic, resp. rate 16, height 172.7 cm (68), weight 95.5 kg (210 lb 9.6 oz), SpO2 98 %. Admission Wt: 97 kg Pertinent Physical Exam Findings Gen: conversant, NAD Neuro: AAOx3, moves all extremities to command CV: RRR Resp: CTAB, sternum stable, incision c/d/i Abd: S, NT, ND Extr: WWP, 1+ edema BLE Important Lab Data Lab Results Component Value Date NA 137 12/30/2017 K 5.4 (H) 12/30/2017 CL 99 12/30/2017 CO2 30 12/30/2017 BUN 9 (L) 12/30/2017 CREATININE 0.79 12/30/2017 CALCGFR 102 12/30/2017 Complete Blood Count Lab Results Component Value Date ABO O 12/23/2017 WBC 10.07 12/30/2017 RBC 3.16 (L) 12/30/2017 HGB 8.6 (L) 12/30/2017 HCT 27.9 (L) 12/30/2017 MCV 88 12/30/2017 MCH 27.2 12/30/2017 MCHC 30.8 (L) 12/30/2017 PLT 654 (H) 12/30/2017 MPV 8.8 (L) 12/30/2017 RDWCV 19.4 (H) 12/30/2017 Coagulation Lab Results Component Value Date FIBRINOGEN 328 12/20/2017 PTT 36 12/20/2017 PROTIME 17.3 (H) 12/20/2017 INR 1.5 (H) 12/20/2017 Urine culture 12/23: NGTD Relevant Studies at Discharge: CXR 12/24/17 1. Although the lungs remain underinflated, bibasilar airspace opacities have improved. 2. The cardiac silhouette remains enlarged, but the pulmonary vascularity is normal. There is no evidence of pleural fluid or pneumothorax. The tip of the right 3. PICC remains in satisfactory position. 4. The right jugular sheath has been removed. 5. Sternal wires are aligned and intact. The mitral valve was replaced with a St. Bebeto bioprostheticvalve. EKG 12/29/17 SINUS RHYTHM WITH FIRST DEGREE AV BLOCK NONSPECIFIC ST; T-WAVE ABNORMALITY CT abdomen 12/23/17 1. Postsurgical changes in the chest from recent mitral valve replacement, as above, with a small high density component of the pericardial effusion consistent with blood 2.Two large well-circumscribed ovoid hypodense collection in the spleen may represent old areas of infarction or splenic abscesses. There are additional more ill-defined hypodense wedge-shaped splenic infarcts. No splenic hemorrhage. 3. Small amount of free fluid and fat stranding adjacent to the pancreas extending into the mesentery and dependent pelvis. Correlate with lipase for evidence of pancreatitis. 4. Tiny 0.5 cm wedge-shaped hypodense region in the lower pole of the right kidney may reflect tiny infarct or less likely a cyst. 5. Cholelithiasis ?? Discharge medications: Ish Orellana Home Medication Instructions ROSA:[id number] Printed on:12/30/17 4473 Medication Information acetaminophen (TYLENOL) 500 mg tablet Take 2 Tabs by mouth every 6 hours as needed for Pain. alteplase (CATHFLO ACTIVASE) 2 mg injection 2 mg by intercatheter route as needed (clogged PICC). ascorbic acid, vitamin C, (VITAMIN C) 500 mg tablet Take 1 Tab by mouth daily. aspirin 81 mg EC tablet Take 1 Tab by mouth daily. bisacodyl (DULCOLAX) [address] 1 Suppository rectally daily as needed (constipation). diphenhydrAMINE (BENADRYL) 50 mg capsule Take 1 Cap by mouth as needed for up to 1 dose (hives). docusate sodium (COLACE) 100 mg capsule Take 2 Caps by mouth 2 times daily as needed for Constipation. ferrous sulfate 324 mg (65 mg iron) tablet,delayed release (DR/EC) Take 1 Tab by mouth daily with breakfast. furosemide (LASIX) 20 mg tablet Take 1 Tab by mouth 2 times daily with breakfast and dinner for 14 days. gabapentin (NEURONTIN) 300 mg capsule Take 1 Cap by mouth every 8 hours. gentamicin 50 mg in sodium chloride 0.9 % 50 mL Inject 50 mg into the vein every 12 hours for 42 days. Tentative end date 02/01/18. Or continue untilfollow-up appointment with ID. Compound in patient ready to use form. Pharmacy may adjust diluent and/or volume. heparin 5,000 unit/mL injection Inject 1 mL into the skin every 12 hours. ipratropium-albuterol (DUONEB) 0.5 mg-3 mg(2.5 mg base)/3 mL nebulizer solution Take 3 mL by nebulization every 6 hours as needed for Wheezing. IV Infusion Pump infusion set Use as directed. Order includes administration supplies and pump (if required), and catheter care supplies for home IV therapy. methadone (DOLOPHINE) 10 mg/mL solution Take 9.5 mL by mouth daily. Daily Max: 95 mg metoprolol (LOPRESSOR) 50 mg tablet Take 1 Tab by mouth 2 times daily. morphine (MS IR) 30 mg tablet Take 1 Tab by mouth every 3 hours as needed for Pain. Daily Max: 240 mg Multivitamins with Minerals tablet tablet Take 1 Tab by mouth daily. ondansetron, PF, (ZOFRAN) 4 mg/2 mL solution Inject 2 mL into the vein every 6 hours as needed for Nausea. penicillin G potassium 4 Million Units in dextrose 5% 150 mL Inject 4 Million Units into the vein every 4 hours for 42 days. Tentative end date 02/01/18. Or continue until follow-up appointment with ID. Compound in patient ready to use form. Pharmacy may adjust diluent and/or volume. senna (SENOKOT) 8.6 mg tablet Take 2 Tabs by mouth 2 times daily. sodium chloride 0.9 % flush syringe For valved catheters (Groshong, Vaxcel, Solo PICC, Mid-line, and Groshong Chest Port): Flush all lumens with 10 mL every week if not in use. Flush 10 mL before and 10 mL after each medication dose (20 mL after vancomycin doses). Flush with 20 mL after blood draws. Dispense quantity sufficient. traMADol (ULTRAM) 50 mg tablet Take 1-2 Tabs by mouth every 6 hours as needed for Pain. Daily Max: 400 mg Discharge Follow Up Follow Up Visit: Follow up with your PCP Alex Bliss 1 week after DC from hospital Follow up with your Cardiothoracic Surgeon Dr. Dumont after DC from hospital Quality Measures: Is patient on ASA Yes Is patient on a Statin (unless contraindicated) No, no CAD or HLP Is patient on a Beta destin Yes Is patient on an José Miguel (patients with low EF unless contraindicated/ recent SD) No Discharge summary completed by FISH Yan on 12/30/2017 Attestation statement: I saw and examined the patient. I agree with the findings and plans as documented. Significant post-op course devoted to transitioning pain meds given her methadone program and securing outpatient plans for abx given IVDU hx and needing to be d/'d with PICC. Should have CT Abd for f/u 2ndary to splenic infarcts/collections. Isela Dumont MD documented in this encounter Medications at Time of Discharge Medication Sig Dispensed Refills Start Date End Date acetaminophen (TYLENOL) Take 2 Tabs by mouth 0 500 mg tablet every 6 hours as needed for Pain. gabapentin (NEURONTIN) Take 1 Cap [...] C, (VITAMIN C) 500 mg daily. tablet aspirin 81 mg EC tablet Take 1 Tab by mouth 0 01/25/2018 daily. bisacodyl (DULCOLAX) 10 Place 1 Suppository 0 01/25/2018 mg suppository rectally daily as needed (constipation). diphenhydrAMINE Take 1 Cap by mouth as 2 Cap 0 12/31/19 18 01/25/2018 (BENADRYL) 50 mg needed for up to 1 capsuleIndications: dose (hives). Enterococcus faecalis infection, Subacute bacterial endocarditis docusate sodium Take 2 Caps by mouth 2 0 12/31/19 18 06/20/2020 (COLACE) 100 mg capsule times daily as needed for Constipation. ferrous sulfate 324 mg Take 1 Tab by mouth 0 12/0602/14/2018 (65 mg iron) daily with breakfast. tablet,delayed release (DR/EC) furosemide (LASIX) 20 Take 1 Tab by mouth 2 28 Tab 0 01/13/2018 mg tablet times daily with breakfast and dinner for 14 days. gentamicin 50 mg in Inject 50 mg into the 0 12/3001/25/2018 sodium chloride 0.9 % vein every 12 hours 50 mLIndications: for 42 days. Tentative Enterococcus faecalis end date 02/01/18. Or infection, Subacute continue until bacterial endocarditis follow-up appointment with ID. Compound in patient ready to use form. Pharmacy may adjust diluent and/or volume. heparin 5,000 unit/mL Inject 1 mL into the 2 mL 0 12/0601/25/2018 injection skin every 12 hours. ipratropium-albuterol Take 3 mL by 3 mL 0 12/30/2017 0 01/25/2018 (DUONEB) 0.5 mg-3 nebulization every 6 mg(2.5 mg base)/3 mL hours as needed for nebulizer solution Wheezing. IV Infusion Pump Use as directed. Order 1 Each 0 018 02/01/2018 infusion includes setIndications: administration Enterococcus faecalis supplies and pump (if infection, Subacute required), and bacterial endocarditis catheter care supplies for home IV therapy. metoprolol (LOPRESSOR) Take 1 Tab by mouth 2 60 Tab 0 01/25/2018 50 mg tablet times daily. morphine (MS IR) 30 mg Take 1 Tab by mouth 90 Tab 0 12/0601/25/2018 tablet every 3 hours as needed for Pain. Daily Max: 240 mg Multivitamins with Take 1 Tab by mouth [...] form. Pharmacy may adjust diluent and/or volume. senna (SENOKOT) 8.6 mg Take 2 Tabs by mouth 2 0 0 12/30/2017 01/25/2018 tablet times daily. sodium chloride 0.9 % For valved catheters 1 Box 12/0602/14/2018 flush (Groshong, Vaxcel, syringeIndications: Solo PICC, Mid-line, Enterococcus faecalis and Groshong Chest infection, Subacute Port): Flush all bacterial endocarditis lumens with 10 mL every week if not in use. Flush 10 mL before and 10 mL after each medication dose (20 mL after vancomycin doses). Flush with 20 mL after blood draws. Dispense quantity sufficient. traMADol (ULTRAM) 50 mg Take 1-2 Tabs by mouth 50 Tab 0 12/30/2017 06/20/2020 tablet every 6 hours as needed for Pain. Daily Max: 400 mg documented as of this encounter Ordered Prescriptions Prescription Sig Dispensed Refills Start Date End Date methadone (DOLOPHINE) Take 9.5 mL by mouth 946 mL 0 12/06 10 mg/mL solution daily. Daily Max: 95 mg gabapentin (NEURONTIN) Take 1 Cap by mouth 90 Cap 0 12/06 300 mg capsule every 8 hours. acetaminophen (TYLENOL) Take 2 Tabs by mouth 0 500 mg tablet every 6 hours as needed for Pain. traMADol (ULTRAM) 50 mg Take 1-2 Tabs by mouth 50 Tab 0 12/30/2017 06/20/2020 tablet every 6 hours as needed for Pain. Daily Max: 400 mg senna (SENOKOT) 8.6 mg Take 2 Tabs by mouth 2 0 0 12/30/2017 01/25/2018 tablet times daily. ondansetron, PF, Inject 2 mL into the 2 mL 0 8 02/14/2018 (ZOFRAN) 4 mg/2 mL vein every 6 hours as solution needed for Nausea. Multivitamins with Take 1 Tab by mouth 0 01/01/20 18 06/20/2020 Minerals tablet tablet daily. morphine (MS IR) 30 mg Take 1 Tab by mouth 90 Tab 0 12/0601/25/2018 tablet every 3 hours as needed for Pain. Daily Max: 240 mg metoprolol (LOPRESSOR) Take 1 Tab by mouth 2 60 Tab 0 01/25/2018 50 mg tablet times daily. ipratropium-albuterol Take 3 mL by 3 mL 0 12/30/2017 0 01/25/2018 (DUONEB) 0.5 mg-3 nebulization every 6 mg(2.5 mg base)/3 mL hours as needed for nebulizer solution Wheezing. heparin 5,000 unit/mL Inject 1 mL into the 2 mL 0 12/0601/25/2018 injection skin every 12 hours. furosemide (LASIX) 20 Take 1 Tab by mouth 2 28 Tab 0 01/13/2018 mg tablet times daily with breakfast and dinner for 14 days. ferrous sulfate 324 mg Take 1 Tab by mouth 0 12/0602/14/2018 (65 mg iron) daily with breakfast. tablet,delayed release (DR/EC) docusate sodium Take 2 Caps by mouth 2 0 12/31/19 18 06/20/2020 (COLACE) 100 mg capsule times daily as needed for Constipation. bisacodyl (DULCOLAX) 10 Place 1 Suppository 0 01/25/2018 mg suppository rectally daily as needed (constipation). aspirin 81 mg EC tablet Take 1 Tab by mouth 0 01/25/2018 daily. ascorbic acid, vitamin Take 1 Tab by mouth 0 12/0606/20/2020 C, (VITAMIN C) 500 mg daily. tablet alteplase (CATHFLO 2 mg by intercatheter 2 mg 0 201702/14/2018 ACTIVASE) 2 mg route as needed injection (clogged PICC). penicillin G potassium Inject 4 Million Units 0 0 12/30/2017 02/10/2018 4 Million Units in into the vein every 4 dextrose 5% 150 hours for 42 days. mLIndications: Tentative end date Enterococcus faecalis 02/01/18. Or continue infection, Subacute until follow-up bacterial endocarditis appointment with ID. Compound in patient ready to use form. Pharmacy may adjust diluent and/or volume. gentamicin 50 mg in Inject 50 mg into the 0 12/3001/25/2018 sodium chloride 0.9 % vein every 12 hours 50 mLIndications: for 42 days. Tentative Enterococcus faecalis end date 02/01/18. Or infection, Subacute continue until bacterial endocarditis follow-up appointment with ID. Compound in patient ready to use form. Pharmacy may adjust diluent and/or volume. IV Infusion Pump Use as directed. Order 1 Each 0 018 02/01/2018 infusion includes setIndications: administration Enterococcus faecalis supplies and pump (if infection, Subacute required), and bacterial endocarditis catheter care supplies for home IV therapy. sodium chloride 0.9 % For valved catheters 1 Box 12/0602/14/2018 flush (Groshong, Vaxcel, syringeIndications: Solo PICC, Mid-line, Enterococcus faecalis and Groshong Chest infection, Subacute Port): Flush all bacterial endocarditis lumens with 10 mL every week if not in use. Flush 10 mL before and 10 mL after each medication dose (20 mL after vancomycin doses). Flush with 20 mL after blood draws. Dispense quantity sufficient. diphenhydrAMINE Take 1 Cap by mouth as 2 Cap 0 12/31/19 18 01/25/2018 (BENADRYL) 50 mg needed for up to 1 capsuleIndications: dose (hives). Enterococcus faecalis infection, Subacute bacterial endocarditis documented in this encounter Discharge Disposition Disposition Code Departure Means Destination Another Health Care Institution Not Defined documented in this encounter Progress Notes Rebekah Kumar RN - 12/30/2017 1407 EDT Case management discharge note: CM supervisor metal furniture assembly contacted patient's local hospital, [facility], and they agreed to take patient in transfer today if patient could arrive by 5PM. Patient previously declined this option but team spoke with her this afternoon and she agreed to transfer today. Confirmed with Lorenza SANTAMARIA that they are still able to accept pt today. Nursing report to: [phone]. Doc to doc call to Dr. Mohan. Patient to transfer via [facility] with slate picker at 14:30. If not covered by patient's Medicaid, the hospital will cover the cost. Rebekah Kumar RN CM #[id number] Kristina Shaw - 12/30/2017 1311 EDT Spiritual Care Note Re: Ish Randal Orellana : 1990, AGE: 27 y.o. Room: [place] [address] Ish Randal Orellana who is listed as Unknown has received a visit from the Spiritual Care Department on12/30/2017. Need/Assessment: ?? Follow up with pt ?? Ish frustrated by extended hospitalization ?? Pt shared about her life and relationship with partner and shared how relationship has helped herto stop using ?? Pt trusting in her care received at hospital ?? Pt hopeful for small changes in her routine during hospitalization Intervention: ?? Mobile Home Park Manager provided a supportive, listening presence ?? Explored with pt her strengths and affirmed her resilience ?? Explored with pt methods of coping for unexpected obstacles and accepting help from others ?? Created an atmosphere for pt to express her fears, hopes and joys Outcome: ?? Plan of Action: No Follow up necessary - Needs met Continued Family Support x Continued Support from Mobile Home Park Manager following patient Make a Referral to: Continued Support with Volunteer Visits Connect with Community Supports Ask for a consult from: Other: Visit Initiated by: Referral by computer or phone message Time: End of Life / Comfort Care / Hospice Page direct contact by pager or staff person Time: 4 Level of Visit Services Provided: Anointing of Sick Prayer Communion Relaxation through music Assist Advanced Directives Integrative therapies Assist Decision Making Childs and Prayer at dying Exploration of Ethical issues Present at time of Family Support Other Chaplain Karthikeyan Russo [phone] Phone [phone] Spiritual Care is available 24 hours a day. Office hours are 0800 to 1700 Wednesday through Wednesday and 0830 to 1630 Wednesday and Wednesday. Interfaithand Anabaptist chaplains are available 24 hours a day. For routine consults please call and leave a message with the Spiritual Care Office ([phone]) and patients will be seen within 24 hours. For all emergent consults page the Anglican or Interfaith on-call Mobile Home Park Manager through PAS ([phone]). 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 She was referred for psychological services due to her history ofIVDU and to support her coping with a likely long and stressful hospitalization. Subjective: Of course I'm scared. I just really want all this behind me. Objective: Ish was reclined in her hospital bed when I arrived and was receptive to meeting with me. She described feeling angry, sad, and confused and exhibited agitated, dysphoric affect. She was alert, cooperative, and easy to engage in conversation. She was occasionally tearful as she became more comfortable expressing emotion. She maintained appropriate eye contact and spoke with normal rate, rhythm and tone. Her thought process was linear and coherent. She demonstrated good insight and judgment. Session content: Ish expressed her frustration with the recent sudden reversal against plans for her to discharge to her home and we spent considerable time exploring her thoughts and feelings behind this experience. She initially exhibited anger and confusion over how this occurred but, through further exploration and assessment, was able to describe how, even though she strongly values her health and well-being, hospitalization and treatments remind her of her father's experience with and eventual from endocarditis and cause her distress as she contemplates her mortality. We explored how this process has affected her recent behavior and Ish re-affirmed her desire to complete treatment but wasn't sure how she would be able to do so; we therefore discussed strengths and resources that she has so far benefited from and that she can continue to utilize to cope with the ongoing stress of hospitalization. As a result, Ish indicated increased confidence in her ability to tolerate a longer stay, which I reinforced. 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 Her current presentation is consistent with an adjustment react ion with anxiety and depressed mood to these recent medical stressors and a comprehensive psychological evaluation would likely warrant diagnosis of an opioid use disorder, on maintenance therapy. She presents as in the Maintenance stage of change relating to her opioid use, as she reports having successfully eliminated opioid abuse through the help of methadone MAT and weekly outpatient counseling. Treatment Plan: 1. Provide psychotherapeutic support and resources for community-based mental health services as appropriate. Ish continues to indicate that her extant outpatient services are sufficient for meeting her mental health and substance abuse recovery needs and that she will continue accessing these services upon her return to the community. Referral to Addiction Treatment Program was therefore determined unnecessary. 2. Provide cognitive-behavioral interventions to help Ish adaptively cope with medical-related stressors, anxiety, and pain management. 3. Engage Ish in motivational interviewing to help her sustain her Maintenance level of willingness to treat needs associated with her history of IVDU. Providers may help Ish maintain this motivation by reinforcing the internal rewards or benefits she receives from being clean and further enc ouraging her connections with follow-up supports. 4. Provide strength-based interventions to promote resilience. IVDU Protocol Documentation: 1. Status of Patient Care Agreement: Signed 2. Addiction Treatment Program Assessment Referral: Deemed unnecessary due to pre-existing treatments (MAT and substance use counseling) already in place and being received through [facility] 3. Addiction Treatment Program Assessment: NA 4. Addiction Treatment Program Recommendations: NA 5. Addiction Treatment Program Therapeutic Recommendations: NA 6. Community/Peer Support Referral: NA 7. Therapeutic Treatment Status: Previously engaged in MAT and weekly substance use counseling. Ish reports that she will continue these services upon her return to the community. Frequency: 1-2x/week for 20-40 minutes. Expected duration of services: Will continue to follow for the duration of her hospitalization. Chas Ofelia 12/29/2017 16:30 Predoctoral Practicum Student Pager #[phone] I have read and reviewed this note. Clinical supervision will include discussion of this session. I concur with the practicum student's findings and treatment plan. Services provided were routine and within the competence of this practicum student. Harika Madrigal, Ph.D. Licensed Psychologist-Doctorate Clinical Senior Controls Engineer [facility] 12/29/2017 1511 EDT Pharmacy Note: Gentamicin Monitoring ?? Ish Orellana is a 27 y.o. female receiving Gentamicin 50 mg IV Q12h for the treatment of endocarditis. Other antibiotics include: Penicillin ? 24 hour vitals and labs: Temp (24hrs), Av ??C (96.8 ??F), Min:35.4 ??C (95.7 ??F), Max:36.5 ??C (97.7 ??F) Recent Labs 12/27/17 0402 12/29/17 0552 CREATININE 0.69 0.84 BUN -- 7* Lab Results Component Value Date WBC 9.19 12/29/2017 Gentamicin steady state trough level drawn at 11:05 prior to the 11:06 dose on 12/29/17 = 0.6 mcg/ml (extrapolated trough = 0.6 mcg/mL) Gentamicin steady state peak level drawn at 12:18 post infusion completion of the 11:05 dose on 12/29/17 = 3.6 mcg/ml (extrapolated trough = 4 mcg/mL) Assessment and Plan: Patient is clearing medication well but the peak is borderline high (4mcg/mL). Recommend decreasing dose to: 45mg Q12h (done) and obtaining levels again prior & post fourth dose on 12/31 (Pharmacist will order). Continue to monitor renal function, CBC, In/Out, Tm Discussed dosing regimen with Dr. Carrie Parrish from ID and Dr. Fredy Guerra from treatment team. ?? Pharmacy will continue to follow Thanks, ILIANA YOUSSEF, PharmD Pager #[phone] Charlie Lopez MD - 12/29/2017 1238 EDT SURGERY DAILY PROGRESS NOTE DOS: 12/29/2017 LOS: 22 days (12/07/2017) CC: Subacute bacterial endocarditis Procedure: On pump tissue MVR (12/20/17) 24-Hour Events: - unable to be discharged yesterday, refused to accept patient Subjective: Patient significantly calmer and more understanding of situation today. Open to staying another few days for dispo planning. Objective: Vitals: BP: (111-146)/(72-94) () Pulse: -- () Temp: [35.9 ??C (96.6 ??F)-36.7 ??C (98.1 ??F)] () Resp: [18] () SpO2: [99 %-100 %] () Admission weight: Weight : 97 kg (213 lb 13.5 oz) Most recent weight: Weight : 100 kg (220 lb 6.4 oz) I&O By Type - 3 Shifts Including Current In: 1810 [P.O.:1510; IV Piggyback:300] Out: 800 [Urine:800] Exam Gen: conversant, NAD Neuro: AAOx3, moves all extremities to command CV: RRR Resp: CTAB, sternum stable, incision c/d/i Abd: S, NT, ND Extr: WWP, 1+ edema BLE Meds: Current Facility-Administered Medications: acetaminophen (TYLENOL) tablet 1,000 mg oral Q6H alteplase (CATHFLO ACTIVASE) injection 2 mg intercatheter PRN ascorbic acid (vitamin C) (VITAMIN C) tablet 1,000 mg oral DAILY aspirin EC tablet 81 mg oral DAILY bisacodyl (DULCOLAX) suppository 10 mg rectal Daily PRN dextrose 50 % solution 12.5 g intravenous PRN docusate sodium (COLACE) capsule 200 mg oral BID ferrous sulfate EC tablet 324 mg oral DAILY (BREAKFAST) furosemide (LASIX) tablet 20 mg oral BID (BREAKFAST/DINNER) gabapentin (NEURONTIN) capsule 300 mg oral Q8H gentamicin (GARAMYCIN) 50 mg in sodium chloride (NS) 0.9 % 50 mL IVPB intravenous Q12H glucagon injection 1 mg intramuscular PRN heparin injection 5,000 Units subcutaneous Q12H insulin aspart U-100 (NOVOLOG FLEXPEN) injection subcutaneous TID WC ipratropium-albuterol (DUONEB) 0.5 mg-3 mg(2.5 mg base)/3 mL nebulizer solution 3 mL nebulization Q6H PRN methadone (DOLOPHINE) concentrated solution 95 mg oral DAILY metoprolol (LOPRESSOR) tablet 50 mg oral BID morphine (MS IR) tablet 30 mg oral Q3H PRN Multivitamins with Minerals tablet 1 Tab oral DAILY ondansetron (PF) (ZOFRAN) injection 4 mg intravenous Q6H PRN penicillin G potassium 4 Million Units in sodium chloride (NS) 0.9 % 250 mL custom IVPB intravenous Q4H potassium chloride SA (K-DUR, KLOR-CON) tablet 10 mEq oral BID senna (SENOKOT) tablet 2 Tab oral BID traMADol (ULTRAM) tablet 50-100 mg oral Q6H PRN Labs Recent Labs 12/29/17 0552 WBC 9.19 HGB 8.5* HCT 27.5* PLT 548* Recent Labs 12/29/17 0552 NA 136 K 5.5* CL 103 CO2 28 BUN 7* CREATININE 0.84 No results for input(s): ALT, AST, ALKPHOS, TBIL, LIPASE in the last 72 hours. No results for input(s): CK, TROPONINI in the last 72 hours. No results for input(s): PTT, INR in the last 72 hours. Recent Labs 12/28/17 0652 12/28/17 1213 12/28/17 1809 12/29/17 0721 12/29/17 1130 GLUCOSEFINGE 85 84 77 85 99 Assessment: Ish Orellana is a(n) 27 y.o. old female who was admitted for Subacute bacterial endocarditis on 12/07/2017. She is POD#9 s/p on pump tissue MVR. Patient Active Problem List Diagnosis ??? High-risk ??? Tobacco use disorder affecting , antepartum ??? Drug use ??? Viral hepatitis C ??? Papanicolaou smear of cervix with atypical squamous cells cannot exclude high grade squamous intraepithelial lesion (ASC-H) ??? Subacute bacterial endocarditis ??? Hemolytic anemia (HCC-CMS) ??? Non-rheumatic mitral regurgitation ??? Acute infective endocarditis Plan: - Pain: Continuing morphine IR 30 Q3H, methadone 95 QD, tylenol, tramadol, gabapentin -Regular diet -Lopressor 50 BID, lasix 20 BID, ASA 81 QD -F/u ID, appreciate recs - IV Abx for 6 weeks IV therapy after surgery, then transition to oral penicillin after. -Continuing gentamicin,gentamicin 50mg IV q 12 hours (increased from 45mg IV q 12 hours yesterday) --> currently day - Colace, senna; lactulose off given multiple stools - Heparin 5000 q12h DVT chemoprophylaxis - PT s/o Dispo: will continue to work on dispo plan with home health to provide safe environment for patient to return home with PICC. If unable to determine safe discharge plan and does not accept patient, will likely transfer to medicine for custodial ABx. Charlie Daniel MD 12/29/2017 12:38 [phone] ulisa Norman - 12/29/2017 1056 EDT Diet: Regular, offering Boost Plus/Breeze, guest trays for boyfriend TID, pt has cafe pass Meds: nutritionally relevant include vitamin C 1000 mg, Colace, ferrous sulfate 324 mg, Lasix 20 mg BID, IV ABX, aspart, methadone, MVM, KCl, senna, PRN morphine, PRN Zofran Labs: reviewed. K=5.5 today. No A1C on file. Weight: 100 kg on 12/28, 97 kg at admission on 12/07 I/O: Last BM recorded 12/25. Eating all of meals. Assessment: Had planned to discharge home on IV ABX this week, but home health refusing to accept somay have to remain hospitalized for duration. PO intake much improved over past five days, eating all of meals. Refuses supplements and no longer wants the automatic snack of Breeze, but is ordering large meals and including protein at each. Weight increased since admission. She did finally have a BM on 12/25 but none since-would increase her scheduled bowel meds. Pain meds likely contributing to her severe constipation. Would decrease vitamin C dose to 500 mg daily (high-dose vitamin C is sometimes associated with increased risk of kidney stones). Note her potassium was high today. She has been getting 10 mEq potassium BID since 12/22, would consider D/C'ng this given today's hyperkalemia. Plan: -Increase scheduled bowel meds (last BM 12/25 and that was her only recorded BM since admission) -Decrease vitamin C to 500 mg -Consider D/C'ng supplemental KCl as was hyperkalemic today -Monitor po intake -Continue MVM, iron -Monitor labs, weight Yulisa Norman, RD SB3 pager #[phone] Charlie Daniel MD - 12/28/2017 9164 EDT SURGERY DAILY PROGRESS NOTE DOS: 12/28/2017 LOS: 21 days (12/07/2017) CC: Subacute bacterial endocarditis Procedure: On pump tissue MVR (12/20/17) 24-Hour Events: -NEON - Amp changed to Penicillin - PT Subjective: Patient feeling well this morning. No acute events overnight. Denies fevers, chills, shortness of breath, cold sweats. Objective: Vitals: BP: (103-135)/(64-85) () Pulse: -- () Temp: [35.8 ??C (96.4 ??F)-36.7 ??C (98.1 ??F)] () Resp: [18] () SpO2: [99 %-100 %] () Admission weight: Weight : 97 kg (213 lb 13.5 oz) Most recent weight: Weight : 100 kg (220 lb 6.4 oz) I&O By Type - 3 Shifts Including Current In: 1780 [P.O.:1380; IV Piggyback:400] Out: 400 [Urine:400] Exam Gen: conversant, NAD Neuro: AAOx3, moves all extremities to command CV: RRR Resp: CTAB, sternum stable, incision c/d/i Abd: S, NT, ND Extr: WWP, 1+ edema BLE Meds: Current Facility-Administered Medications: acetaminophen (TYLENOL) tablet 1,000 mg oral Q6H alteplase (CATHFLO ACTIVASE) injection 2 mg intercatheter PRN ascorbic acid (vitamin C) (VITAMIN C) tablet 1,000 mg oral DAILY aspirin EC tablet 81 mg oral DAILY bisacodyl (DULCOLAX) suppository 10 mg rectal Daily PRN dextrose 50 % solution 12.5 g intravenous PRN docusate sodium (COLACE) capsule 200 mg oral BID ferrous sulfate EC tablet 324 mg oral DAILY (BREAKFAST) furosemide (LASIX) tablet 20 mg oral BID (BREAKFAST/DINNER) gabapentin (NEURONTIN) capsule 300 mg oral Q8H gentamicin (GARAMYCIN) 50 mg in sodium chloride (NS) 0.9 % 50 mL IVPB intravenous Q12H glucagon injection 1 mg intramuscular PRN heparin injection 5,000 Units subcutaneous Q12H insulin aspart U-100 (NOVOLOG FLEXPEN) injection subcutaneous TID WC ipratropium-albuterol (DUONEB) 0.5 mg-3 mg(2.5 mg base)/3 mL nebulizer solution 3 mL nebulization Q6H PRN methadone (DOLOPHINE) concentrated solution 95 mg oral DAILY metoprolol (LOPRESSOR) tablet 50 mg oral BID morphine (MS IR) tablet 30 mg oral Q3H PRN Multivitamins with Minerals tablet 1 Tab oral DAILY ondansetron (PF) (ZOFRAN) injection 4 mg intravenous Q6H PRN penicillin G potassium 4 Million Units in sodium chloride (NS) 0.9 % 250 mL custom IVPB intravenous Q4H potassium chloride SA (K-DUR, KLOR-CON) tablet 10 mEq oral BID senna (SENOKOT) tablet 2 Tab oral BID traMADol (ULTRAM) tablet 50-100 mg oral Q6H PRN Labs Recent Labs 12/28/17 0555 WBC 9.15 HGB 8.2* HCT 25.9* PLT 510* Recent Labs 12/27/17 0402 12/28/17 0555 NA 136 137 K 4.1 4.7 CL 103 104 CO2 28 27 CREATININE 0.69 -- No results for input(s): ALT, AST, ALKPHOS, TBIL, LIPASE in the last 72 hours. No results for input(s): CK, TROPONINI in the last 72 hours. No results for input(s): PTT, INR in the last 72 hours. Recent Labs 12/27/17 1202 12/27/17 1711 12/27/17 2209 12/28/17 0652 12/28/17 1213 GLUCOSEFINGE 93 92 99 85 84 Assessment: Ish Orellana is a(n) 27 y.o. old female who was admitted for Subacute bacterial endocarditis on 12/07/2017. She is POD#8 s/p on pump tissue MVR. Patient Active Problem List Diagnosis ??? High-risk ??? Tobacco use disorder affecting , antepartum ??? Drug use ??? Viral hepatitis C ??? Papanicolaou smear of cervix with atypical squamous cells cannot exclude high grade squamous intraepithelial lesion (ASC-H) ??? Subacute bacterial endocarditis ??? Hemolytic anemia (HCC-CMS) ??? Non-rheumatic mitral regurgitation ??? Acute infective endocarditis Plan: - Pain: Continuing morphine IR 30 Q3H, methadone 95 QD, tylenol, tramadol, gabapentin -Regular diet -Lopressor 50 BID, lasix 20 BID, ASA 81 QD -F/u ID, appreciate recs - IV Abx for 6 weeks IV therapy after surgery, then transition to oral penicillin after. -Continuing gentamicin,gentamicin 50mg IV q 12 hours (increased from 45mg IV q 12 hours yesterday)(D#) --> currently day - Colace, senna; lactulose off given multiple stools - Heparin 5000 q12h DVT chemoprophylaxis - PT s/o Patient was planned for discharge today with outpatient PICC for custodial ABx. Home health refused to accept patient however with plan current plan of returning to her apartment for various red flags/concerns. Patient was made aware of this new information and visibly upset. Patient feels like her rights have been violated (HIPPAA) and that she's being judged for being a drug user. She is therefore threatening to leave AMA. Medical staff made every effort to explain to her the situation, why home health would not accept her and also explain why it was not be in her best health interest to leave AMA. Upon leaving patient's room, she appeared more calm and considering staying for several more days, while medical team and case management continue to work on resolution for case. - in the interim, will reach out to [facility] to see if there are any other options forpatient to be safely discharged and will discuss with ID the unlikely possibility of patient being discharge on PO ABx. Charlie Daniel MD 12/28/2017 15:48 [phone] Kristina Shaw - 12/28/2017 1337 EDT Spiritual Care Note Re: Ish Orellana : 1990, AGE: 27 y.o. Room: [facility]/ Ish Tee Esteban who is listed as Unknown has received a visit from the Spiritual Care Department on12/28/2017. Need/Assessment: ?? Follow up visit with pt who is hoping for discharge later today ?? Ish shared her plans post discharge I can do this ?? Pt also expressed her frustration of being labeled from her past ?? Ish shared her hope of moving forward with plans of self care both physically and mentally and viewed her health challenge as a wake up call Intervention: ?? Mobile Home Park Manager provided a supportive, listening presence ?? Explored expectations and emotions related to discharge and returning home ?? Through life review, explored pt's resilience and strength during difficult and weak times Outcome: ?? Thank you for coming Plan of Action: x No Follow up necessary - Needs met Continued Family Support Continued Support from Mobile Home Park Manager following patient Make a Referral to: Continued Support with Volunteer Visits Connect with Community Supports Ask for a consult from: Other: Visit Initiated by: Referral by computer or phone message Time: End of Life / Comfort Care / Hospice Page direct contact by pager or staff person Time: 4 Level of Visit Services Provided: Anointing of Sick Prayer Communion Relaxation through music Assist Advanced Directives Integrative therapies Assist Decision Making Childs and Prayer at dying Exploration of Ethical issues Present at time of Family Support Other Chaplain Karthikeyan Russo 131 Phone [phone] Spiritual Care is available 24 hours a day. Office hours are 0800 to 1700 Wednesday through Wednesday and 0830 to 1630 Wednesday and Wednesday. Interfaithand Anabaptist chaplains are available 24 hours a day. For routine consults please call and leave a message with the Spiritual Care Office ([phone]) and patients will be seen within 24 hours. For all emergent consults page the Anglican or Interfaith on-call Mobile Home Park Manager through PAS ([phone]). Rebekah Whiting RN - 12/28/2017 1258 EDT CM follow up note: Per [facility] liaison, [facility] has declined to provide care to patient. Discussed with Outpatient [facility]; without home health services, they are unable to provide home infusion supplies. Team updated. Rebekah Kumar RN [phone] Carrie Quevedo MD - 12/28/2017 1134 EDT Infectious Disease Consultation Follow Up Note Admit Date: 12/07/2017 Hospital Day: LOS: 21 days Date of Service: 12/28/2017 Followup For: E. Faecalis bacteremia and MV endocarditis 24 Hour Events: ERAN. Had infusion teaching and feels confident that she and her boyfriend can manageCAD pump and infusions. May appointment with mental health provider and completed intake exam over the phone. Subjective: sIh is feeling good today except very frustrated that people keep accusing her of incorrect information. Denies fever, chills, sweats. Is concerned that rash may be a bit worse today on her left arm. No diarrhea. Anti-infectives & Other Pertinent Medications: Ampicillin 12/09 - present Gentamicin 12/11 - present Vital Signs: BP 123/64 (BP Cuff Location: Left arm, Patient Position: Semi fowlers) Pulse 84 Temp 35.8 ??C (96.4 ??F) (Tympanic) Resp 18 Ht 172.7 cm (68) Wt 100 kg (220 lb 6.4 oz) SpO2 99% BMI 33.51 kg/m2 Exam: Sitting up in bed NC, AT, EOMI, anicteric sclera, no thrush, 7 mandibular teeth, no maxillary teeth RRR CTAB Appropriately TTP at sternal incision, no erythema, fluctuance, or drainage +BS Much improved peticheal rash on arms and legs RUE picc line without erythema Data Review: Laboratory data reviewed. Pertinent positives include: Labs: WBC 9.15 Hb 8.2 Plt 510 Microbiology: @[facility] 12/06/17 BC: enterococcus ?? @ [facility] 12/09/17 1 of 4 BC: Enterococcus faecalis 12/11/17 4 4 BC: no growth 12/20/17 OR clx left atrial bed few polys, no bacteria; 1 colony Enterococcus faecalis OR clx anterior and posterior leaflets of MV no polys, no bacteria, no growth Assessment: 1. 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 Plan for 6 weeks IV therapy after surgery, then transition to oral penicillin after. 2. History of IVDU - Ish reports to me that she last used 8 months ago following the of her father. She reports having numerous negative UDS at her methadone clinic. She does admitted to smoking MJ at times. She realizes that her current infection and need for surgery was a near experience and has made efforts to prevent relapse. She has already made an appointment with her prior mental sharan provider for 01/06/18. I had a torsten discussion with Ish that her picc line is to be used only for IV antibiotics. Sheunderstands the risks of the picc line. She understands that need and plan for ongoing mental healthneeds to maintain sobriety. 3. Chronic hepatitis C virus infection - will address as an outpatient. 4. False positive HIV Ab, confirmatory and HIV VL negative Recommendations: Continue penicillin G 4 million units IV q 4 hours Continue gentamicin 50mg IV q 12 hours (increased from 45mg IV q 12 hours yesterday) I advised Ish on the need for antibiotics prior to dental procedures (amoxicillin 2g po x1 30-60 minutes prior to dental work) and need for blood cultures prior to antibiotics. Advised Ish to call her repairer finished metal to determine more definitive control plan (advised IUD) Discussed with primary care team Carrie Parrish MD 12/28/2017 11:34 Carroll Seo, PT - 12/28/2017 0912 EDT Rehabilitation Therapies Acute [facility] Physical TherapyContact Note Date of Service: 12/28/2017 A physical therapy consult order was received, the medical record was reviewed, and an examination was completed. Full note to follow. The recommendation for discharge is for home with home health PT when medically ready. CARROLL SCRUGGS PT 12/28/2017 9:12 Carroll Seo, PT - 12/28/2017 0813 EDT [facility] Rehabilitation Therapy Acute [facility] Physical Therapy Initial Evaluation/Discontinue Note Date of Service: 12/28/2017 Reason for Referral: Evaluate and treat Precautions: Ambulate and Sternal precautions SUBJECTIVE: I feel ready to get home Pain: Location: sternal incision Intensity: 7/10 (at present), 6/10 (at best), 10/10 (at worst) Frequency: constant Quality: sore Aggravating factors: Coughing, mobility Alleviating factors: Rest, pain medications OBJECTIVE: PatientProfile: Patient is a 27 y.o. female admitted on 12/07/2017 secondary to ENDOCARDITIS SEVERE MITRAL VALVE REGURGITATION I34.9 Nonrheumatic mitral valve disorder, unspecified-I34.9[ICD-10-CM] The patient lives at [address] [place] [id number] Home environment Lives:with boyfriend Caregiver Support: 24-hour assist Equipment Available: None Home Environment: apartment Home Layout: 2nd floor of a house. 3 steps with railing to enter the house and a full flight with railing to access the second floor. Prior Level of Function: Independent Services prior to admission: None Work/Leisure: Unemployed Medical/Surgical History: Current: Patient Active Problem List Diagnosis ??? High-risk ??? Tobacco use disorder affecting , antepartum ??? Drug use ??? Viral hepatitis C ??? Papanicolaou smear of cervix with atypical squamous cells cannot exclude high grade squamous intraepithelial lesion (ASC-H) ??? Subacute bacterial endocarditis ??? Hemolytic anemia (HCC-CMS) ??? Non-rheumatic mitral regurgitation ??? Acute infective endocarditis Past: Past Medical History: Diagnosis Date ??? Hepatitis C No past surgical history on file. Per 12/07 H+P: Ish Orellana is a 27 y.o. female admitted critically ill to the MICU for infective endocarditis and severe mitral regurgitation. LOS: 0 days . ?? HPI: ? Pt is a 27 yo woman with PMhx untreated HepC, remote IV drug use (last use 3 years ago, on [id number] mg, confirmed with [facility]), depression, and anxiety who presented to [facility] with a one-monthhistory of petechial rash, initially started on feet and ankles ascending to UEs. She has associatedfever (101.3), shaking chills, rigors, and weakess with intermittent dizziness. Labs notable for hgb7.3 ->6.3 ->8.8 after 2 units of RBC transfusion, MCV 73, plt 176K, WBC 5.9, peripheral smear showed schistocytes 1+. CMP notable for Cr 0.85, lactic 1.7, ca 7.8, albumin 2.0, total protein 7.1, AST 39, ALT 11, alk phos 91, lipase 99, glucose 79. Trop 0.13. BNP 440. Blood culture grew GPC on nd 12/07 samples. ESR and CRP elevated Hep serology pending. Echocardiogram on 12/07 showed LVEF 55-60,no WMA, mitral valve with 10x12 mm vegetation the posterior leaflet, possibly extension on to anterior leaflet and proximal LA posterior wall adjacent to attachment of posterior leaflet, and severe regurgitation. CXR showed no acute pathology. US abdomen showed hepatic infiltrates consistent with steatosis, borderline dilated CBD of 7 mm and splenomegaly with lesion measuring 8.1x4.4x5. She was givenvancomycin evening and this am @800 am and cefepime for endocarditis, and lasix 20 mg IV.She was also given methadone 95 mg this am. ?? On arrival, pt was in NAD and hemodynamically stable. She reports fatigue, fever, chills, night sweats, and weight loss (295-216 lb over a year period). She denies chest pain, sob, abdominal pain, nausea, emesis, dysuria, and diarrhea. ?? Social hx is notable for significant IV drugs use (father of endocarditis, sibling with drug use) KRISTOPHER concerning for multiple mitral valve vegetations and severe regurgitation BRIEF OP NOTE 12/20/2017 ?? Ish Orellana ?? [id number] ?? Alex Bliss ?? Pre-op diagnosis: Mitral insufficiency Endocarditis IVDA ? Procedure: On Pump Mitral valve replacement [address] [facility] Epic ?? Post-op diagnosis: Same ?? Medications: Medications reviewed Arousal, Attention, and Cognition: Orientation: Alert Oriented to person, place, and time Cardiopulmonary: Vital Signs: Activity Heart rate (bpm) Blood Pressure (mmHg) Respiratory rate (breaths/min) Oxygen Sat/ Fractions of inspired Oxygen SPO2/FIO2 % Pre 87 132/69 97% on RA During Post 71 126/76 98% on RA Airway clearance: non productive cough Breath sounds: diminishes with fine crackles LLL Integumentary/Anthropometric Characteristics: Palpation/Observation: Skin: sternal incision C/D/I, B UE ecchymoses Edema: mild bilateral lower extremities Posture: Forward head and Protracted shoulders Range of Motion and Joint Integrity: Active Range of Motion: Within normal limits Upper Quarter: Left Upper Extremity: Right Upper Extremity: Cervical Spine: not formally evaluated in this setting Lower Quarter: Left Lower Extremity: RightLower Extremity: Lumbar Spine: not formally evaluated in this setting Muscle Performance: Strength: Formal resistive muscle testing was not performed for B UEs due to patient with sternal precautions Upper Quarter: Left Upper Extremity: grossly > 3/5 assessed functionally Right Upper Extremity: grossly > 3/5 assessed functionally Cervical Spine: not formally evaluated in this setting Lower Quarter: Left Lower Extremity: 4-5/5 Right Lower Extremity: 4-5/5 LumbarSpine: not formally evaluated in this setting Sensation, Reflexes, and Nerve Integrity: Light Touch Sensation: Upper Quarter:Intact C2-T1 Lower Quarter: Intact for lower extremities Neuromotor Function/Development: No problems noted Balance, Mobility, and Gait: Balance: No loss of balance observed throughout physical therapy session Mobility: Supine to sit: independent with verbal/tactile cueing for log rolling technique and verbal cues to avoid holding breath with exertion Sit to supine: independent with verbal cues for log rolling technique Sit to stand: independent with verbal/tactile cueing for hand placement, appropriate UE use based onsternal precautions Stand to sit: independent with verbal cues for hand placement and appropriate UE use based on sternal precautions Gait: Assistive device/distance/assist/deviations: Patient ambulated 175 feet without assistive device, independence, and verbal cues for breathing technique and pacing. Patient took one standing rest break for ~2 minutes due to SHERMAN. Stairs: assist needed/number of steps: Demonstration provided for stair management technique and sequencing. Pt ascended and descended 9 steps with railing on the R, supervision, and verbal cueing for sequencing and pacing. Instruction provided for appropriate guarding technique for caregiver to provide at home. Self-Care, Home Management, Work, and Leisure: Outcomes: NA Informed Consent: The patient consented to the physical therapy evaluation. The patient agrees to and understands the physical therapy treatment plan and goals. Interventions Completed Today: Physical Therapy today at: 845 Total treatment time: 40 minutes. Timed code treatment minutes: 15 Intervention included: Therapeutic activities: see above and below for cues provided Gait training: see above for cues provided Patient educated in physical therapy findings, safety awareness, plan of care, goals, and D/C recommendations. The patient was instructed in the importance of daily independence with therapeutic exercises, selfcare, and functional mobility. Recommended that patient request assist of nursing staff to mobilize OOB throughout all shifts. The patient was instructed in sternal precautions with regards to all functional mobility, including use of assistive device without BUE weight bearing. Patient instructed in log rolling technique for bed mobility and demonstration provided. Patient educated in edema management techniques with recommendation made for LE elevation when not ambulating. The patient was instructed in and performed 5 repetitions of incentive spirometry to 1000 cc with verbal cues and demonstration for technique to maximize lung expansion and pacing. The patient was instructed in cough technique and splinting and performed a cough with splinting 5 repetitions after incentive spirometry. Patient educated in D/C planning process and states confidence in her ability to return home when medically ready but would like home health PT follow up. Education provided for appropriate activity pacing and progression at home. Patient/Family Education: Topic: Activity pacing/Energy conservation Balance Bed mobility Breathing exercises Discharge planning Gait Home program Positioning Precautions/protocol Role of therapy Safety Stairs Transfers Learner: patient Method: verbal and demonstration Barriers to Learning: none noted Outcome: verbalized understanding and returned demonstration Team Communication: Spoke with nurse prior to and after therapy session ASSESSMENT: Upper Quarter Screen: Positive findings - Patient presents with positive upper quarter findings due to new sternal precautions and ongoing monitoring of patient's use of B UE is warranted Physical Therapy Diagnosis: Patient presents with impaired functional mobility secondary to new sternal precautions, decreased activity levels throughout hospital stay, decreased functional strength and endurance, decreased tolerance to activity, decreased dynamic standing balance, gait impairments, gait deviations and impaired gas exchange, respiration and aerobic capacity s/p MVR. Physical Therapy Prognosis: Patient was appropriate for skilled PT evaluation and interventions today. Ms. Orellana is a pleasant woman who is agreeable to therapy interventions and is motivated to mobilize. She is pleased to report the progress she has made with mobility since surgery and is quick to describe the assistance that her boyfriend will be providing once she return home. Based on pt's demonstrated mobility capabilities, insight into limitations, receptiveness to therapy recommendations, and support at home, recommend D/C home with home health PT follow up. Short-Term Goals: NA Long-Term Goals: 1-3 days GOALS MET ?? The patient will be able to demonstrate use of incentive spirometry with verbal cues for maximal lung expansion, proper technique, and pacing. ?? All functional mobility will be performed with 02 saturation > 92% and independent with paced breathing strategies. ?? The patient and/or caregiver will be able to verbalize and demonstrate sternal precautions with all functional mobility. ?? The patient will be independent in all BLE AROM therapeutic exercises. ?? Bed mobility: With independence and good adherence to sternal precautions. ?? Transfers: With or without assistive device with independence and good adherence to sternal precautions. ?? Gait: With or without assistive device and independence ~ 200 feet. ?? Stairs: With railing and supervision and good adherence to sternal precautions. ?? Patient and/or family aware of PT recommendations. PLAN: Discontinue PT Recommended Discharge Destination: Home with caregiver Recommended Discharge Services: Home health physical therapy Recommended Equipment Needs: No equipment necessary Other recommendations: No other consults recommended at this time Pager: [phone] CARROLL SCRUGGS, PT 12/28/2017 8:13 [facility] 12/27/2017 3367 EDT Pharmacy Note: Gentamicin Monitoring Ish Orellana is a 27 y.o. female receiving Gentamicin 45 mg IV Q12h for the treatment of endocarditis. Other antibiotics include: Ampicillin changed to Penicillin today. 24 hour vitals and labs: Temp (24hrs), Av.3 ??C (97.3 ??F), Min:35.8 ??C (96.4 ??F), Max:37 ??C (98.6 ??F) Recent Labs 12/25/17 0459 12/27/17 0402 CREATININE 0.66 0.69 BUN 13 -- Lab Results Component Value Date WBC 10.59 12/27/2017 Gentamicin steady state trough level drawn at 13:10 prior to the 13:10 dose on 12/27/17 = <0.4 mcg/ml; undetectable by lab (extrapolated trough = <0.4 mcg/mL) Gentamicin steady state peak level drawn at 14:32, 30 minutes post infusion completion of the 13:10 dose on 12/27/17 = 2.6 mcg/ml (extrapolated trough = 3.1 mcg/mL) Assessment and Plan: Both trough & peak levels are sub/ borderline therapeutic. Recommend increasing dose to: 50mg Q12h (done) and obtaining levels again prior & post fourth dose on 12/29 (Rx will order). Continue to monitor renal function, CBC, In/Out, Tm Discussed dosing regimen with Dr. Carrie Parrish from [facility]. Pharmacy will continue to follow Letty, ILIANA YOUSSEF, PharmD Pager #[phone] Chas Lyon - 12/27/2017 1529 EDT Subsequent Individual Psychotherapy Note Date of Service: 12/27/2017 Time of Service: 14:50 Length of Service: 40 minutes Modality: Individual hospital-based psychotherapy Problem: Ish Orellana is 27-year-old woman with a prior history of IVDU, receiving methadone MAT for the past several years, who presented with enterococcal endocarditis with large mitral valve vegetations, anemia, and petechial rash. She was referred for psychological services due to her history ofIVDU and to support her coping with a likely long and stressful hospitalization. Subjective: I've got everything I need set up and there's a lot I want to do this summer. Objective: Ish was reclined in her hospital bed when I arrived and was receptive to meeting with me. She described feeling great and exhibited euthymic affect. She was alert, calm, cooperative, and easy to engage in conversation. She maintained appropriate eye contact and spoke with normal rate, rhythm and tone. Her thought process was linear and coherent. She demonstrated good insight and judgment. Session content: Ish shared her plans for discharge, including her focus on returning to daily methadone administration and monthly substance use counseling through [facility] as well as separate weekly outpatient psychotherapy through [facility]. She also stated that she would seek a psychiatric evaluation through [facility] to explore potential psychiatric medication for depression and anxiety. We discussed various risks and challenges associated with her return home (e.g., still not fully weaned off pain meds, picc line, lifestyle changes, etc.) and Marcusyrelayed her respect for each and her safety plans if problems were to emerge in any of these areas. She independently described how her time while hospitalized has led her to appreciate how her father's last summer affected her and led to her brief lapse and how she still has not fully grieved. I reinforced her insight and clearly encouraged her to make this grief work one of her primary goals with her therapist, along with exploring the specific triggers that led to her lapse last year so that they can be better managed in future stressful situations. Ish also described several hopes and goals that she has for the coming months and I engaged her in brief motivational interviewing to further enhance her apparent commitment to substance use treatments. Suicidality: Did not endorse SI. 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 Her current presentation is consistent with an adjustment react ion with anxiety and depressed mood to these recent medical stressors and a comprehensive psychological evaluation would likely warrant diagnosis of an opioid use disorder, on maintenance therapy. She presents as in the Maintenance stage of change relating to her opioid use, as she reports having successfully eliminated opioid abuse through the help of methadone MAT and weekly outpatient counseling. Summary of goals: Provide psychotherapeutic support, cognitive-behavioral and motivational interventions, and psychologically informed recommendations. Anticipated response to treatment: More adaptive coping with medical stressors. Treatment Plan: 1. Provide psychotherapeutic support and resources for community-based mental health services as appropriate. Ish continues to indicate that her extant outpatient services are sufficient for meeting her mental health and substance abuse recovery needs and that she will continue accessing these services upon her return to the community. Referral to Addiction Treatment Program was therefore determined unnecessary. 2. Provide cognitive-behavioral interventions to help Ish adaptively cope with medical-related stressors, anxiety, and pain management. 3. Engage Ish in motivational interviewing to help her sustain her Maintenance level of willingness to treat needs associated with her history of IVDU. Providers may help Ish maintain this motivation by reinforcing the internal rewards or benefits she receives from being clean and further enc ouraging her connections with follow-up supports. 4. Provide strength-based interventions to promote resilience. IVDU Protocol Documentation: 1. Status of Patient Care Agreement: Signed 2. Addiction Treatment Program Assessment Referral: Deemed unnecessary due to pre-existing treatments (MAT and substance use counseling) already in place and being received through [facility] 3. Addiction Treatment Program Assessment: NA 4. Addiction Treatment Program Recommendations: NA 5. Addiction Treatment Program Therapeutic Recommendations: NA 6. Community/Peer Support Referral: NA 7. Therapeutic Treatment Status: Previously engaged in MAT and weekly substance use counseling. Ish reports that she will continue these services upon her return to the community. Frequency: 1-2x/week for 20-40 minutes. Expected duration of services: Will continue to follow for the duration of her hospitalization. Chas Gilbert 12/27/2017 15:29 Predoctoral Practicum Student Pager #[phone] I have read and reviewed this note. Clinical supervision will include discussion of this session. I concur with the practicum student's findings and treatment plan. Services provided were routine and within the competence of this practicum student. Harika Madrigal, Ph.D. Licensed Psychologist-Doctorate Clinical Senior Controls Engineer [facility], Carrie Larose MD - 12/27/2017 1154 EDT Infectious Disease Consultation Follow Up Note Admit Date: 12/07/2017 Hospital Day: LOS: 20 days Date of Service: 12/27/2017 Followup For: E. Faecalis bacteremia and MV endocarditis 24 Hour Events: ERAN Subjective: feeling good today. Denies fever, chills, sweats, nausea, vomiting, diarrhea, rash. Constipation has resolved. Continues to have occasional urinary retention after removal of garcia catheter. Anti-infectives & Other Pertinent Medications: Ampicillin 4 - present Gentamicin 12/11 - present Vital Signs: BP 136/90 (BP Cuff Location: Left arm, Patient Position: Semi fowlers) Pulse 84 Temp 37 ??C (98.6 ??F) (Tympanic) Resp 18 Ht 172.7 cm (68) Wt (!) 102.4 kg (225 lb 11.2 oz) SpO2 97% BMI 34.32 kg/m2 Exam: Sitting up in bed, NAD, pleasant young woman, talkative NC, AT, EOMI, anicteric sclera, no thrush, 7 mandibular teeth, otherwise edentulous RRR Diminished breath sounds in bilateral bases +bs, soft abdomen Previous petichial rash much improved Tattoos Scattered ecchymoses RUE double lumen picc line without erythema or tenderness Sternal incision well closed, no erythema, drainage, fluctuance or step off Data Review: Laboratory data reviewed. Pertinent positives include: Labs: WBC 10.59 Hb 7.9 Plt 485 Cr 0.69 Microbiology: @[facility] 12/06/17 BC: enterococcus @ [facility] 12/09/17 1 of 4 BC: Enterococcus faecalis 12/11/17 4 BC: no growth 12/20/17 OR clx left atrial bed few polys, no bacteria; 1 colony Enterococcus faecalis OR clx anterior and posterior leaflets of MV no polys, no bacteria, no growth Assessment: 1. 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 Plan for 6 weeks IV therapy after surgery, then transition to oral penicillin after. 2. False positive HIV Ab (negative confirmatory and negative VL) 3. Chronic hepatitis C - follows with blood bank custodian and has plans for starting Harvoni after completing IV therapy 4. Hx of IVDU - Ish reports to me that she last used several months ago. Her current infection/surgery/hospitalization is her wake up call. Today she will call her former mental health provider to re-establish care. Currently taking methadone to manage symptoms. Recommendations: Discontinue ampicillin Start penicillin 4 million units IV q 4 hours (can then transition to cad pump for home) Continue gentamicin 45mg IV q 12 hours (goal peak 3-4, goal trough <1) I advised Ish on the need for antibiotics prior to dental procedures (amoxicillin 2g po x1 30-60 minutes prior to dental work) and need for blood cultures prior to antibiotics. Advised Ish to call her repairer finished metal to determine more definitive control plan (advised IUD) Advised Ish to call her mental health provider to re-establish care and have an appointment made prior to discharge. I will write for home IV antibiotics and weekly labs. Follow up in ID clinic on 01/11 @ 11am. Discussed with primary care team Carrie Parrish MD 12/27/2017 11:55 Rebekah Whiting RN - 12/27/2017 1007 EDT Per surgery team, patient cleared for discharge to home on IVAB. Patient with history of IVDU, now on Methadone for several years. CM called patient's methadone clinic, [facility] in [facility] ([phone]) and spoke with her mental health case manager, Ambreen. Ambreen reports that patient [facility] was essentially homeless, couch-surfing. The stable person in her life is her mother, and feels that her mom is reliable and she would definitely be safe with her mother. Will also need to coordinate with clinic when patient is discharged. CM met with patient and boyfriend, asked her about her home situation. They report they have been living in an upstairs section of their friends's home at [address] [place] [address] in [facility] for 4 months. They report that they can lock the door. Another roommate living there had a drug problem but he left last week. Patient also reports today that she last used IV drugs about 8 months ago, around the time of some deaths in her family. She reports her step-mom of a fentanyl OD in November, and her father of endocarditis in February or March. She states that she has no intention of using again as she understands the consequences. CM described the process for discharging on home IVAB, including need for vendor and home nursing. Agreed to referral to [facility] and [facility] ([phone]). Explained topatient the need for coordination of services and may not be able to organize discharge for tomorrow; she expressed an understanding. Discuss with ID team; they will meet with patient later today. Rebekah Kumar RN [phone] Charlie Lopez MD - 12/27/2017 0939 EDT SURGERY DAILY PROGRESS NOTE DOS: 12/27/2017 LOS: 20 days (12/07/2017) CC: Subacute bacterial endocarditis Procedure: On pump tissue MVR (12/20/17) 24-Hour Events: -NEON -One dose of ampicillin was missed due to infusion rate - dc'd 1:1 sitter - refusing tele Subjective: No acute events overnight. Reports that she feels better this morning. Pain controlled with ketamine off, she is attempting to use MANAGER DRUG SAFETY less. She removed her own telemetry this morning. Reports bloated feeling is improving. Tolerating diet without N/V. Multiple BMs. Ambulating in hallway with nursing. Objective: Vitals: BP: (110-125)/(56-79) () Pulse: -- () Temp: [35.8 ??C (96.4 ??F)-36.9 ??C (98.4 ??F)] () Resp: [16-18] () SpO2: [97 %-100 %] () Admission weight: Weight : 97 kg (213 lb 13.5 oz) Most recent weight: Weight : (!) 102.4 kg (225 lb 11.2 oz) I&O By Type - 3 Shifts Including Current In: 1510 [P.O.:1310; IV Piggyback:200] Out: 1200 [Urine:1200] Exam Gen: conversant, NAD Neuro: AAOx3, moves all extremities to command CV: RRR Resp: CTAB, sternum stable, incision c/d/i Abd: S, NT, ND Extr: WWP, 1+ edema BLE Meds: Current Facility-Administered Medications: acetaminophen (TYLENOL) tablet 1,000 mg oral Q6H alteplase (CATHFLO ACTIVASE) injection 2 mg intercatheter PRN ampicillin (OMNIPEN) 2 g in sodium chloride (NS MBP) 100 mL infusion intravenous Q4H ascorbic acid (vitamin C) (VITAMIN C) tablet 1,000 mg oral DAILY aspirin EC tablet 81 mg oral DAILY bisacodyl (DULCOLAX) suppository 10 mg rectal Daily PRN dextrose 50 % solution 12.5 g intravenous PRN docusate sodium (COLACE) capsule 200 mg oral BID ferrous sulfate EC tablet 324 mg oral DAILY (BREAKFAST) furosemide (LASIX) tablet 20 mg oral BID (BREAKFAST/DINNER) gabapentin (NEURONTIN) capsule 300 mg oral Q8H gentamicin (GARAMYCIN) 45 mg in sodium chloride (NS) 0.9 % 50 mL IVPB intravenous Q12H glucagon injection 1 mg intramuscular PRN heparin injection 5,000 Units subcutaneous Q12H insulin aspart U-100 (NOVOLOG FLEXPEN) injection subcutaneous TID WC ipratropium-albuterol (DUONEB) 0.5 mg-3 mg(2.5 mg base)/3 mL nebulizer solution 3 mL nebulization Q6H PRN methadone (DOLOPHINE) concentrated solution 95 mg oral DAILY metoprolol (LOPRESSOR) tablet 50 mg oral BID morphine (MS IR) tablet 30 mg oral Q3H PRN Multivitamins with Minerals tablet 1 Tab oral DAILY ondansetron (PF) (ZOFRAN) injection 4 mg intravenous Q6H PRN potassium chloride SA (K-DUR, KLOR-CON) tablet 10 mEq oral BID senna (SENOKOT) tablet 2 Tab oral BID traMADol (ULTRAM) tablet 50-100 mg oral Q6H PRN Labs Recent Labs 12/27/17 0402 WBC 10.59 HGB 7.9* HCT 25.0* PLT 485* Recent Labs 12/25/17 0459 12/27/17 0402 NA 135* < > 136 K 3.5 < > 4.1 CL 102 < > 103 CO2 27 < > 28 BUN 13 -- -- CREATININE 0.66 -- -- < > = values in this interval not displayed. No results for input(s): ALT, AST, ALKPHOS, TBIL, LIPASE in the last 72 hours. No results for input(s): CK, TROPONINI in the last 72 hours. No results for input(s): PTT, INR in the last 72 hours. Recent Labs 12/26/17 0703 12/26/17 1228 12/26/17 1712 12/26/17 2207 12/27/17 0645 GLUCOSEFINGE 91 96 82 99 89 Assessment: Ish Orellana is a(n) 27 y.o. old female who was admitted for Subacute bacterial endocarditis on 12/07/2017. She is POD#7 s/p on pump tissue MVR. Patient Active Problem List Diagnosis ??? High-risk ??? Tobacco use disorder affecting , antepartum ??? Drug use ??? Viral hepatitis C ??? Papanicolaou smear of cervix with atypical squamous cells cannot exclude high grade squamous intraepithelial lesion (ASC-H) ??? Subacute bacterial endocarditis ??? Hemolytic anemia (HCC-CMS) ??? Non-rheumatic mitral regurgitation ??? Acute infective endocarditis Plan: -F/u APS, appreciate recs - Continuing morphine IR 30 Q3H, methadone 95 QD, tylenol, tramadol, gabapentin - D/C morphine MANAGER DRUG SAFETY today -Regular diet -Lopressor 50 BID, lasix 20 BID, ASA 81 QD -F/u ID, appreciate recs -Continuing gentamicin, ampicillin (D#) - coordinate with ID, case management regarding outpt Abx management - Colace, senna; lactulose off given multiple stools - Heparin 5000 q12h DVT chemoprophylaxis - PT Eval - D/C telemetry - Plan for DC tomorrow Charlie Daniel MD 12/27/2017 9:39 [phone] Charlie olivo MD - 12/26/2017 0700 EDT SURGERY DAILY PROGRESS NOTE DOS: 12/26/2017 LOS: 19 days (12/07/2017) CC: Subacute bacterial endocarditis Procedure: On pump tissue MVR (12/20/17) 24-Hour Events: -Ketamine stopped -Sitter d/c'd Subjective: No acute events overnight. Pain controlled with ketamine off. Tolerating diet without N/V. Multiple BMs. Objective: Vitals: BP: (114-141)/(69-87) () Pulse: -- () Temp: [35.5 ??C (95.9 ??F)-36.7 ??C (98.1 ??F)] () Resp: [18-20] () SpO2: [95 %-100 %] () Admission weight: Weight : 97 kg (213 lb 13.5 oz) Most recent weight: Weight : (!) 101 kg (222 lb 9.6 oz) I&O By Type - 3 Shifts Including Current In: 1315.1 [P.O.:925; I.V.:40.1; IV Piggyback:350] Out: 950 [Urine:950] Exam Gen: conversant, NAD Neuro: AAOx3, moves all extremities to command CV: RRR Resp: CTAB, sternum stable, incision c/d/i Abd: S, NT, ND Extr: WWP Meds: Current Facility-Administered Medications: acetaminophen (TYLENOL) tablet 1,000 mg oral Q6H Or acetaminophen (TYLENOL) suppository 975 mg rectal Q6H Or acetaminophen (TYLENOL) solution unit dose cup 995 mg oral Q6H alteplase (CATHFLO ACTIVASE) injection 2 mg intercatheter PRN ampicillin (OMNIPEN) 2 g in sodium chloride (NS MBP) 100 mL infusion intravenous Q4H ascorbic acid (vitamin C) (VITAMIN C) tablet 1,000 mg oral DAILY aspirin EC tablet 81 mg oral DAILY bisacodyl (DULCOLAX) suppository 10 mg rectal Daily PRN dextrose 50 % solution 12.5 g intravenous PRN docusate sodium (COLACE) capsule 200 mg oral BID ferrous sulfate EC tablet 324 mg oral DAILY (BREAKFAST) furosemide (LASIX) tablet 20 mg oral BID (BREAKFAST/DINNER) gentamicin (GARAMYCIN) 45 mg in sodium chloride (NS) 0.9 % 50 mL IVPB intravenous Q12H glucagon injection 1 mg intramuscular PRN heparin injection 5,000 Units subcutaneous Q12H insulin aspart U-100 (NOVOLOG FLEXPEN) injection subcutaneous TID WC ipratropium-albuterol (DUONEB) 0.5 mg-3 mg(2.5 mg base)/3 mL nebulizer solution 3 mL nebulization Q6H PRN lactulose (CHRONULAC) 20 gram/30 mL solution 30 mL oral DAILY methadone (DOLOPHINE) concentrated solution 95 mg oral DAILY metoprolol (LOPRESSOR) tablet 50 mg oral BID morphine (MS IR) tablet 30 mg oral Q3H PRN morphine 2 mg/ml (DURAMORPH) Alaris PRN, 30 ml intravenous Q1H PRN morphine 2 mg/ml (DURAMORPH) MANAGER [employer]UG SAFETY, 30 ml syringe intravenous MANAGER DRUG SAFETY Multivitamins with Minerals tablet 1 Tab oral DAILY ondansetron (PF) (ZOFRAN) injection 4 mg intravenous Q6H PRN potassium chloride SA (K-DUR, KLOR-CON) tablet 10 mEq oral BID senna (SENOKOT) tablet 2 Tab oral BID traMADol (ULTRAM) tablet 50-100 mg oral Q6H PRN Labs Recent Labs 12/25/17 0459 WBC 15.07* HGB 7.9* HCT 24.4* PLT 436* Recent Labs 12/23/17 1020 12/25/17 0459 NA -- < > 135* K -- < > 3.5 CL -- < > 102 CO2 -- < > 27 BUN -- < > 13 CREATININE -- < > 0.66 MG 2.0 -- -- < > = values in this interval not displayed. Recent Labs 12/23/17 1020 12/24/17 0530 ALT 25 -- AST 25 -- TBIL <0.5 -- LIPASE 313* 183 No results for input(s): CK, TROPONINI in the last 72 hours. No results for input(s): PTT, INR in the last 72 hours. Recent Labs 12/25/17 0405 12/25/17 0642 12/25/17 1317 12/25/17 1751 12/25/17 2136 GLUCOSEFINGE 77 89 79 93 101* Assessment: Ish Orellana is a(n) 27 y.o. old female who was admitted for Subacute bacterial endocarditis on 12/07/2017. She is POD#6 s/p on pump tissue MVR. Patient Active Problem List Diagnosis ??? High-risk ??? Tobacco use disorder affecting , antepartum ??? Drug use ??? Viral hepatitis C ??? Papanicolaou smear of cervix with atypical squamous cells cannot exclude high grade squamous intraepithelial lesion (ASC-H) ??? Subacute bacterial endocarditis ??? Hemolytic anemia (HCC-CMS) ??? Non-rheumatic mitral regurgitation ??? Acute infective endocarditis Plan: -F/u APS, appreciate recs -Continuing morphine MANAGER DRUG SAFETY, morphine IR 30 Q3H, methadone 95 QD, tylenol, tramadol, gabapentin -Regular diet -Lopressor 50 BID, lasix 20 BID, ASA 81 QD -F/u ID, appreciate recs -Continuing gentamicin, ampicillin (D#) -Colace, senna; lactulose off given multiple stools -Heparin 5000 q12h DVT chemoprophylaxis Jose Miguel Pulliam MD 12/26/2017 2:28 #[id number] Sergio Schulte - 12/25/2017 0936 EDT Anesthesia Pain Service Rounding Note Chief complaint: acute on chronic pain HPI: This is a 27 y.o. female with a hx of IVDU (last used 3 years ago), chronic methadone, endocarditis,hep C, and is now POD3 s/p MVR for severe MR. Her pain is better controlled today than previously. She is beginning oral intake. No bowel movement. No fever or chills. Scheduled Medications: Current Facility-Administered Medications: acetaminophen (TYLENOL) tablet 1,000 mg oral Q6H Or acetaminophen (TYLENOL) suppository 975 mg rectal Q6H Or acetaminophen (TYLENOL) solution unit dose cup 995 mg oral Q6H alteplase (CATHFLO ACTIVASE) injection 2 mg intercatheter PRN ampicillin (OMNIPEN) 2 g in sodium chloride (NS MBP) 100 mL infusion intravenous Q4H ascorbic acid (vitamin C) (VITAMIN C) tablet 250 mg oral DAILY aspirin EC tablet 81 mg oral DAILY bisacodyl (DULCOLAX) suppository 10 mg rectal Daily PRN dextrose 50 % solution 12.5 g intravenous PRN docusate sodium (COLACE) capsule 200 mg oral BID ferrous sulfate EC tablet 324 mg oral DAILY (BREAKFAST) furosemide (LASIX) tablet 20 mg oral BID (BREAKFAST/DINNER) gentamicin (GARAMYCIN) 45 mg in sodium chloride (NS) 0.9 % 50 mL IVPB intravenous Q12H glucagon injection 1 mg intramuscular PRN heparin injection 5,000 Units subcutaneous Q12H insulin aspart U-100 (NOVOLOG FLEXPEN) injection subcutaneous TID WC ipratropium-albuterol (DUONEB) 0.5 mg-3 mg(2.5 mg base)/3 mL nebulizer solution 3 mL nebulization Q6H PRN ketAMINE (KETALAR) 500mg in NaCl 0.9% 50ml syringe intravenous CONTINUOUS lactulose (CHRONULAC) 20 gram/30 mL solution 30 mL oral DAILY methadone (DOLOPHINE) concentrated solution 95 mg oral DAILY metoprolol (LOPRESSOR) tablet 50 mg oral BID morphine (MS IR) tablet 30 mg oral Q3H PRN morphine 2 mg/ml (DURAMORPH) Alaris PRN, 30 ml intravenous Q1H PRN morphine 2 mg/ml (DURAMORPH) MANAGER DRUG SAFETY, 30 ml syringe intravenous MANAGER DRUG SAFETY Multivitamins with Minerals tablet 1 Tab oral DAILY ondansetron (PF) (ZOFRAN) injection 4 mg intravenous Q6H PRN potassium chloride SA (K-DUR, KLOR-CON) tablet 10 mEq oral BID senna (SENOKOT) tablet 2 Tab oral BID traMADol (ULTRAM) tablet 50-100 mg oral Q6H PRN Allergies: No Known Allergies Labs: Lab Results Component Value Date WBC 15.07 (H) 12/25/2017 HGB 7.9 (L) 12/25/2017 HCT 24.4 (L) 12/25/2017 MCV 85 12/25/2017 PLT 436 (H) 12/25/2017 Lab Results Component Value Date INR 1.5 (H) 12/20/2017 INR 1.3 (H) 12/08/2017 INR 1.3 (H) 12/07/2017 PROTIME 17.3 (H) 12/20/2017 PROTIME 15.5 (H) 12/08/2017 PROTIME 14.8 (H) 12/07/2017 Examination: Vitals: Blood pressure 140/87, pulse 84, temperature 35.6 ??C (96.1 ??F), temperature source Tympanic, resp. rate 18, height 172.7 cm (68), weight (!) 101 kg (222 lb 9.6 oz), SpO2 99 %. General:NAD Cardiac:RRR Resp: nonlabored, CTs still in place Neuro:Alert and oriented x3 Analysis: This is a 27 y.o. year old female POD4 s/p MVR, hx of IVDU, chronic methadone use, endocarditis. Current management includes: long acting meds: methadone 95 mg PO daily, ketamine 10 mg/hr IV, and acetaminophen. short acting meds: morphine IR 30 mg PO q3h morphine 1 mg IV prn nurse bolus morphine MANAGER DRUG SAFETY 1 mg q10 min Recommendations: Continue methadone and ketamine as currently prescribed. Simplify her breakthrough meds by omitting the nurse boluses of morphine but continue morphine MANAGER DRUG SAFETY for now, and continue the morphine IR 30 mg. Eventually convert to all oral pain meds. ?? APS will continue to follow, please page [phone] with any questions. Sergio Hoyos DO #[id number] 12/25/2017, 9:36 Ignacio Bernabe MD - 12/25/[address] Surgery Progress Note Admit Date: 12/07/2017 LOS: 18 days CC: Subacute bacterial endocarditis POD#5 s/p on pump tissue MVR 24-Hour Events: Cordis out HCT 20 -> 2 u pRBCs -> 24 Subjective: Patient reports being in pain this morning, like she was in a terrible car accident but getting better. Denies any fevers, chills, N/V. OOB to chair. Passing flatus, no BM. Meds MAR Reviewed Objective: Vitals: Temp (24hrs), Av.2 ??C (97.2 ??F), Min:35.6 ??C (96.1 ??F), Max:36.9 ??C (98.4 ??F) Blood pressure 140/87, pulse 84, temperature 35.6 ??C (96.1 ??F), temperature source Tympanic, resp.rate 18, height 172.7 cm (68), weight (!) 101 kg (222 lb 9.6 oz), SpO2 99 %. Patient is on RA Intake/Output Summary (Last 24 hours) at 12/25/17 0742 Last data filed at 12/25/17 0725 Gross per 24 hour Intake 675 ml Output 1000 ml Net -325 ml I/O for Current Shift: 12/25 0700 - 12/25 1459 In: - Out: 500 [Urine:500] Exam Gen: alert, in moderate distress Chest: CTAB, sternum stable, incision c/d/i Cor: RRR Abd: Soft, nontender, nondistended Ext: WWP, no edema Data Review CBC: Lab Results Component Value Date WBC 15.07 (H) 12/25/2017 RBC 2.86 (L) 12/25/2017 HGB 7.9 (L) 12/25/2017 HCT 24.4 (L) 12/25/2017 MCV 85 12/25/2017 MCH 27.6 12/25/2017 MCHC 32.4 12/25/2017 PLT 436 (H) 12/25/2017 NEUTROABS 11.56 (H) 12/25/2017 BMP: Lab Results Component Value Date NA 135 (L) 12/25/2017 K 3.5 12/25/2017 CL 102 12/25/2017 CO2 27 12/25/2017 BUN 13 12/25/2017 CREATININE 0.66 12/25/2017 GLUCOSEFINGE 89 12/25/2017 CALCIUM 7.9 (L) 12/07/2017 MG 2.0 12/23/2017 PHOS 3.9 12/08/2017 LABALBU 2.3 (L) 12/07/2017 Coagulation: Lab Results Component Value Date PROTIME 17.3 (H) 12/20/2017 INR 1.5 (H) 12/20/2017 PTT 36 12/20/2017 Assessment: Ish Orellana is a(n) 27 y.o. old female who was admitted for Subacute bacterial endocarditis on 12/07/2017. She is POD#5s/p on pump tissue MVR. Plan: ?? Lasix 20 mg PO BID, KCL 10 mg PO BID. ?? Lopressor 50 mg PO BID, titrate as tolerated ?? Aspirin 81 mg ?? iron supplementation ?? Regular diet ?? APS consulted for pain management: - methadone 95 mg QD - ketamine 10 mg/hr - morphine 30 mg PO PRN - scheduled tylenol - continue morphine [employer] boluses - morphine 2 mg/ml MANAGER DRUG SAFETY ?? Day#5 of 42 of IV ampicillin and gentamicin per ID ?? DVT PPPx: heparin SQ BID ?? Increase bowel regimen Ignacio Mcgraw MD 12/25/2017 7:42 itArlin - 12/24/2017 1310 EDT S: Patient was talkative and vocal about food preferences. Patient stated that she does not like anyof the supplements, but agreed to try foods on the high calorie/protein menu that was provided. She also stated that she has not been eating because of being bloated. O: Diet: Regular, has Cafe pass Meds include ketamine, methadone, iron, lasix, dilaudid (prn), lactulose (prn), morphine (prn), zofran (prn), senna (prn), tramadol (prn) Relevant Labs: Lab Results Component Value Date WBC 13.55 (H) 12/24/2017 RBC 2.42 (L) 12/24/2017 HGB 6.5 (LL) 12/24/2017 HCT 20.9 (LL) 12/24/2017 MCV 86 12/24/2017 MCH 26.9 12/24/2017 PLT 373 12/24/2017 NA 135 (L) 12/24/2017 K 4.0 12/24/2017 CL 102 12/24/2017 CO2 30 12/24/2017 BUN 17 12/24/2017 CREATININE 0.69 12/24/2017 GLUCOSEFINGE 85 12/24/2017 CALCIUM 7.9 (L) 12/07/2017 MG 2.0 12/23/2017 PHOS 3.9 12/08/2017 Last recorded weight 12/20: 99.7kg, BMI 33.4 I/O: Ate small breakfast: raisin bran, milk, grapes. Otherwise primarily eating popsicles and juice -Still no BM POD#4 A:This is a 27 y.o. female with a hx of IVDU (last used 3 years ago), chronic methadone, endocarditis, hep C, and is now POD4 s/p MVR for severe MR per MD note. She has not had a BM post surgery. Chesttubes were removed 12/23. Increased nutrient needs related to necessary wound healing as evidenced by recent MVR surgery. Patient has great deal of nutrient needs due to recent surgery. She is not interested in eating muchand was provided a Cafe Pass and the high calorie/protein menu to encourage increase of po intake. Her boyfriend or family members will be helping with the Cafe Pass. Patient likes chocolate ice cream, which would be a good source of calories and a little protein, allow her to order. Due to poor po intake this patient is at risk for multiple nutritent deficiencies and would benefit from a daily MVM. This patient is a smoker and is at greater risk for Vitamin C deficiency, would benefit from supplementation. Iron and pain medications increase constipation, she has not has a BM in 4 days and would likely benefit from scheduled bowel medications. Weight last checked 12/20, please recheck to further assess nutritional status. P: - Please add daily MVM - Consider Vitamin C supplement, 250mg daily - Consider scheduling bowel medications - Please weigh patient daily - Encourage po intake - Monitor po intake, weight, labs, skin, BM LEILA Cartwright MSD Intern Mari Landon MD - 12/24/2017 1038 EDT Anesthesia Pain Service Rounding Note Chief complaint: acute on chronic pain HPI: This is a 27 y.o. female with a hx of IVDU (last used 3 years ago), chronic methadone, endocarditis,hep C, and is now POD4 s/p MVR for severe MR. Started on ketamine and IV opioids prior to extubationand [facility] methadone 95mg/day has been continued. Having persistent severe pain but slowly increasing in activity. Has had CTs and cordis removed in past day and reports that she is more comfortable. Saysthat overnight, she was not receiving the amount of opioid she was told she was supposed to be getting and is very frustrated this morning. She understands that event though her pain will be temporary worse, PT will be beneficial intermediate designer. Reports that she is eating but still doesn't have much of an appetite, which she says is not unsual for her. A 10 point ROS was reviewed and negative except as stated in the HPI. Scheduled Medications: Current Facility-Administered Medications: acetaminophen (TYLENOL) tablet 1,000 mg oral Q6H Or acetaminophen (TYLENOL) suppository 975 mg rectal Q6H Or acetaminophen (TYLENOL) solution unit dose cup 995 mg oral Q6H alteplase (CATHFLO ACTIVASE) injection 2 mg intercatheter PRN ampicillin (OMNIPEN) 2 g in sodium chloride (NS MBP) 100 mL infusion intravenous Q4H aspirin EC tablet 81 mg oral DAILY bisacodyl (DULCOLAX) suppository 10 mg rectal Daily PRN dextrose 50 % solution 12.5-25 g intravenous PRN docusate sodium (COLACE) capsule 100 mg oral BID PRN ferrous sulfate EC tablet 324 mg oral DAILY (BREAKFAST) furosemide (LASIX) tablet 20 mg oral BID (BREAKFAST/DINNER) gabapentin (NEURONTIN) capsule 300 mg oral Q8H Or gabapentin (NEURONTIN) solution 300 mg oral Q8H gentamicin (GARAMYCIN) 45 mg in sodium chloride (NS) 0.9 % 50 mL IVPB intravenous Q12H heparin injection 5,000 Units subcutaneous Q12H insulin regular (HUMULIN R, NOVOLIN R) 2 Units bolus infusion intravenous PRN insulin regular (HUMULIN R,NOVOLIN R) 100 Units in sodium chloride (NS) 0.9 % 100 mL infusion intravenous CONTINUOUS ipratropium-albuterol (DUONEB) 0.5 mg-3 mg(2.5 mg base)/3 mL nebulizer solution 3 mL nebulization Q6H PRN ketAMINE (KETALAR) 500mg in NaCl 0.9% 50ml syringe intravenous CONTINUOUS lactulose (CHRONULAC) 20 gram/30 mL solution 30 mL oral Daily PRN methadone (DOLOPHINE) concentrated solution 95 mg oral DAILY metoprolol (LOPRESSOR) tablet 50 mg oral BID morphine (MS IR) tablet 30 mg oral Q3H PRN morphine 2 mg/ml (DURAMORPH) Alaris PRN, 30 ml intravenous Q1H PRN morphine 2 mg/ml (DURAMORPH) MANAGER DRUG SAFETY, 30 ml syringe intravenous MANAGER [employer] SAFETY ondansetron (PF) (ZOFRAN) injection 4 mg intravenous Q6H PRN potassium chloride SA (K-DUR, KLOR-CON) tablet 10 mEq oral BID senna (SENOKOT) tablet 2 Tab oral BID PRN sodium chloride 0.9 % (NS) infusion intravenous CONTINUOUS traMADol (ULTRAM) tablet 50-100 mg oral Q6H PRN Allergies: No Known Allergies Labs: Lab Results Component Value Date WBC 13.55 (H) 12/24/2017 HGB 6.5 (LL) 12/24/2017 HCT 20.9 (LL) 12/24/2017 MCV 86 12/24/2017 PLT 373 12/24/2017 Lab Results Component Value Date INR 1.5 (H) 12/20/2017 INR 1.3 (H) 12/08/2017 INR 1.3 (H) 12/07/2017 PROTIME 17.3 (H) 12/20/2017 PROTIME 15.5 (H) 12/08/2017 PROTIME 14.8 (H) 12/07/2017 Examination: Vitals: Blood pressure 137/89, pulse 84, temperature 36 ??C (96.8 ??F), temperature source Tympanic,resp. rate 20, height 172.7 cm (68), weight 99.8 kg (220 lb), SpO2 97 %. General: mild distress, in bed Cardiac:RRR Resp: CTAB, nonlabored Neuro:speech fluent, moving all extremities Skin: warm and dry, rash on all extremities, incision C/D/I Analysis: This is a 27 y.o. year old female now hx of IVDU, chronic methadone use, endocarditis, now POD4 s/p MVR for severe MR with acute on chronic pain and is experiencing ongoing pain. Will continue ketaminefor now. Recommendations: -Continue methadone 95mg/daily -Continue ketamine -Continue scheduled tylenol -Continue tramadol -Continue gabapentin -Continue morphine IR 30mg Q3hrs -Continue morphine MANAGER DRUG SAFETY with IV boluses PRN -Restart [facility] trazodone per discretion of primary team ?? APS will continue to follow, please page [phone] with any questions. Mari Read MD #[id number] 12/24/2017, 10:38 Associated attestation - Gaudencio Mcgergor MD - 12/24/2017 1203 EDT Attestation statement: I saw and examined the patient with the resident/fellow. I agree with the findings and plan of care documented in the resident's/fellow's note. Gaudencio Mcgregor MD 12/24/2017 12:03 Rosalia Baugh MD - 12/24/[address] Surgery Progress Note Admit Date: 12/07/2017 LOS: 17 days CC: Subacute bacterial endocarditis POD#4 s/p on pump tissue MVR 24-Hour Events: C/O 10/10 incisional and abdominal pain overnight Morphine MANAGER DRUG SAFETY started CTs and Garcia removed Patient refused to have cordis removed and refused CXR HCT 20.9 WBC: 13.55 Lipase 183 Subjective: Patient reports being in pain this morning. Denies any fevers, chills, N/V. OOB to chair. Passing flatus, no BM. Meds MAR Reviewed Objective: Vitals: Temp (24hrs), Av.8 ??C (96.5 ??F), Min:35.1 ??C (95.2 ??F), Max:36.4 ??C (97.5 ??F) Blood pressure 117/68, pulse 84, temperature 36.3 ??C (97.3 ??F), temperature source Tympanic, resp.rate 18, height 172.7 cm (68), weight 99.8 kg (220 lb), SpO2 97 %. Patient is on RA Intake/Output Summary (Last 24 hours) at 12/24/17 1157 Last data filed at 12/24/17 0705 Gross per 24 hour Intake 811.5 ml Output 1445 ml Net -633.5 ml I/O for Current Shift: 12/24 0700 - 12/24 1459 In: - Out: 325 [Urine:325] Exam Gen: alert, in moderate distress Chest: CTAB, sternum stable, incision c/d/i Cor: RRR Abd: Soft, nontender, nondistended Ext: WWP, no edema Data Review CBC: Lab Results Component Value Date WBC 13.55 (H) 12/24/2017 RBC 2.42 (L) 12/24/2017 HGB 6.5 (LL) 12/24/2017 HCT 20.9 (LL) 12/24/2017 MCV 86 12/24/2017 MCH 26.9 12/24/2017 MCHC 31.1 (L) 12/24/2017 PLT 373 12/24/2017 NEUTROABS 10.54 (H) 12/24/2017 BMP: Lab Results Component Value Date NA 135 (L) 12/24/2017 K 4.0 12/24/2017 CL 102 12/24/2017 CO2 30 12/24/2017 BUN 17 12/24/2017 CREATININE 0.69 12/24/2017 GLUCOSEFINGE 85 12/24/2017 CALCIUM 7.9 (L) 12/07/2017 MG 2.0 12/23/2017 PHOS 3.9 12/08/2017 LABALBU 2.3 (L) 12/07/2017 Coagulation: Lab Results Component Value Date PROTIME 17.3 (H) 12/20/2017 INR 1.5 (H) 12/20/2017 PTT 36 12/20/2017 Imaging CXR 12/21/2017 The right internal jugular sheath remains, with the catheter seen previously through the sheath having been removed. The right-sided PICC line is seen its tip in the right atrium. The PICC line has notmoved proximally as compared to the prior study. Bilateral pleural Vikash drains and a mediastinal drain remain, with one of the mediastinal drains seen previously having been removed. The patient is status post midline sternotomy. There is persistent dense left lower lobe and incomplete right lower lobe atelectasis. EKG 12/21/2017 First degree AV block now present Low QRS voltage now present ST (T wave) deviation now present Atrial-paced complex(es) or rhythm no longer present CT abd w/wo contrast and pelvis w/ contrast 12/23/2017 Impression: 1. Postsurgical changes in the chest from recent mitral valve replacement, as above, with a small high density component of the pericardial effusion consistent with blood ??2.Two large well-circumscribed ovoid hypodense collection in the spleen may represent old areas ofinfarction or splenic abscesses. There are additional more ill-defined hypodense wedge-shaped splenic infarcts. No splenic hemorrhage. ??3. Small amount of free fluid and fat stranding adjacent to the pancreas extending into the mesentery and dependent pelvis. Correlate with lipase for evidence of pancreatitis. 4. Tiny 0.5 cm wedge-shaped hypodense region in the lower pole of the right kidney may reflect tiny infarct or less likely a cyst. ??5. Cholelithiasis Assessment: Ish Orellana is a(n) 27 y.o. old female who was admitted for Subacute bacterial endocarditis on 12/07/2017. She is POD#4s/p on pump tissue MVR. Plan: ?? Lasix 20 mg PO BID, KCL 10 mg PO BID. ?? Lopressor 50 mg PO BID, titrate as tolerated ?? Aspirin 81 mg ?? Give 2 unit pRBC for HCT of 20.9 ?? Start iron supplementation ?? D/C cordis ?? Regular diet ?? APS consulted for pain management: - methadone 95 mg QD - ketamine 10 mg/hr - morphine 30 mg PO PRN - scheduled tylenol - continue morphine DRAPERY [employer] boluses - morphine 2 mg/ml [employer] ?? Day#4 of 42 of IV ampicillin and gentamicin per ID ?? DVT PPPx: heparin SQ BID ?? Recheck PM hct ?? F/u CXR Rosalia Baugh MD 12/24/2017 11:57 Rebekah Kumar RN - 12/23/2017 1601 EDT CM Follow-up note: CM discussed case with team and nursing. Patient continues with increased pain and not very interactive. Will attempt to meet with her at a later date. Rebekah Kumar RN CM [id number] Tere Chi MD - 12/23/2017 1411 EDT Infectious Disease Consultation Follow Up Note Admit Date: 12/07/2017 Hospital Day: LOS: 16 days Date of Service: 12/23/2017 Followup For: endocarditis Subjective: Pain overnight prompting CT a/p Chest tubes remain in place Anti-infectives & Other Pertinent Medications: Gentamicin D#13 Ampicillin D#15 Vital Signs: BP 123/89 (BP Cuff Location: Left arm, Patient Position: Semi fowlers) Pulse 86 Temp (!) 35.1 ??C (95.2 ??F) (Tympanic) Resp 16 Ht 172.7 cm (68) Wt 99.8 kg (220 lb) SpO2 94% BMI 33.45 kg/m2 Exam: Sternal incision without induration Rash improving Right PICC without induration CT in place X 2 +murmur Data Review: Laboratory data reviewed. Pertinent positives include: WBC/RBC/HGB/HCT/MCH/MCHC/PLT14.44/2.69/7.3/22.5/27.1/32.4/418 (12/23 1020) Creat 0.69 BC 12/09 09/09 enterococcus BC 12/11 no growth Tissue valve +polys, no bacteria Atrial bed +polys, no bacteria - 1 colony only enterococcus faecalis Fungal cultures of valve and atrial bed- pending 12/09 HIV RNA undetected Gent peak 3.6 ECHO 12/15 Summary: ? 1. Left ventricle: The cavity size was mildly dilated. Wall thickness ? was normal. Systolic function was normal. The estimated ejection ? fraction was 60-65%. Wall motion was normal; there were no regional ? wall motion abnormalities. ?? 2. Right ventricle: The cavity size was normal. Wall thickness was ? normal. Systolic function was normal. ?? 3. Mitral valve: Moderate thickening of the anterior leaflet (middle and ? lateral segment(s)). Thickening of the posterior leaflet. There was a ? large, layered, mobile vegetation on the atrial aspect of the ? anterior leaflet that extends into the left ventricle during ? diastole. There was a large, protruding, serpiginous, highly mobile ? vegetation on the atrial aspect of the posterior leaflet. There was ? evidence for a large, mobile phlegmon and soft tissue erosion ? extending from the posterior leaflet annulus to the posterior and ? lateral wall of the left atrium. There was severe regurgitation ? directed eccentrically. ?? 4. Left atrium: No evidence of thrombus in the appendage. The appendage ? was morphologically a left appendage, multilobulated, and of normal ? size. Emptying velocity was normal. ?? 5. Atrial septum: No defect or patent foramen ovale was identified. ? Doppler showed no atrial level shunt, in the baseline state. ?? 6. Line: A venous catheter was visualized in the superior vena cava, ? with its tip in the right atrium. No abnormal features noted. CT a/p 12/23 Impression: 1. Postsurgical changes in the chest from recent mitral valve replacement, as above, with a small high density component of the pericardial effusion consistent with blood 2.Two large well-circumscribed ovoid hypodense collection in the spleen may represent old areas of infarction or splenic abscesses. There are additional more ill-defined hypodense wedge-shaped splenic infarcts. No splenic hemorrhage. 3. Small amount of free fluid and fat stranding adjacent to the pancreas extending into the mesentery and dependent pelvis. Correlate with lipase for evidence of pancreatitis. 4. Tiny 0.5 cm wedge-shaped hypodense region in the lower pole of the right kidney may reflect tiny infarct or less likely a cyst. 5. 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 She will be on long-term oral therapy following IV therapy which I think would provide treatment for her splenic lesions- team is considering splenectomy- in which case she would need to have Menactra, PCV 13 and Meningococcal serogroup B- they should be given as far from splenectomy as possible and some data that the menactra will interfere with Pneumococcal vaccination- although unclear what this means clinically. Given her age- unlikely to need H flu-recommendation is to given unvaccinated adults a booster-but she would have had the primary series as a child- will need to clarify with team if splenectomy is indeed planned Recommendations: 1) Continue Ampicillin 2) Continue Gentamicin 3) Will need to re-start the clock regarding abx therapy as today is now day #3 of planned 42 days of IV therapy 4) Would plan for intermediate designer oral therapy following IV Tere Omalley MD 12/23/2017 14:11 DiArlin umana - 12/23/2017 1409 EDT S: Patient unable to speak with me beyond a few words, but she feels as though she is not ready for any other foods besides juice and popsicles. Boyfriend confirmed that she is not interested in eating. O:Diet: Regular Meds include tylenol solution, humulin, colace (prn), miralax, mathadone, ketamine, tramadol (prn), lasix, dilaudid, ducolax (prn) Relevant Labs: Lab Results Component Value Date WBC 14.44 (H) 12/23/2017 RBC 2.69 (L) 12/23/2017 HGB 7.3 (L) 12/23/2017 HCT 22.5 (L) 12/23/2017 MCV 84 12/23/2017 MCH 27.1 12/23/2017 PLT 418 (H) 12/23/2017 NA 133 (L) 12/23/2017 K 4.2 12/23/2017 CL 101 12/23/2017 CO2 27 12/23/2017 BUN 21 12/23/2017 CREATININE 0.69 12/23/2017 GLUCOSEFINGE 94 12/23/2017 CALCIUM 7.9 (L) 12/07/2017 MG 2.0 12/23/2017 PHOS 3.9 12/08/2017 Weight 12/20: 99.8kg, BMI, 33.5 A:This is a 27 y.o. female with a hx of IVDU (last used 3 years ago), chronic methadone, endocarditis, hep C, and is now POD3 s/p MVR for severe MR. Per MD note. Inadequate oral intake related to acute illness as evidenced by recent surgery and poor po intake per patient and RN. This patient has been unable to eat anything except for popsicles since surgery. Patient denied Boost supplement, but it willing to try [place], will send. Due to poor po intake she is at risk for multiple nutrient deficiencies and would recommend she start taking a daily MVM to support healing.Patient has not had a BM since before surgery, consider scheduling bowel meds to promote regular BM as constipation may negatively impact intake. Last weight 12/20, please recheck P: -Will send [place] -Please add daily MVM -Monitor po intake, weigh, labs, skin, BMs -Consider scheduling bowel meds -Please weight patient daily Lynda Rene, LEILA MSD Volunteer Patient Representative Agree with nutrition assessment and plan of care as documented. RD following Arlin Linton MS, RD Pager [phone] Mari Read MD - 12/23/2017 9748 EDT Anesthesia Pain Service Rounding Note Chief complaint: acute on chronic pain HPI: This is a 27 y.o. female with a hx of IVDU (last used 3 years ago), chronic methadone, endocarditis,hep C, and is now POD3 s/p MVR for severe MR. Started on ketamine and IV opioids prior to extubationand [employer] methadone 95mg/day has been continued. Having persistent severe pain. Was switched to morphine from hydromorphone overnight and reports more relief. Has not had return of bowel function yet andis still NPO and is quite distressed that she can not eat. A 10 point ROS was reviewed and negative except as stated in the HPI. Scheduled Medications: Current Facility-Administered Medications: acetaminophen (TYLENOL) tablet 1,000 mg oral Q6H Or acetaminophen (TYLENOL) suppository 975 mg rectal Q6H Or acetaminophen (TYLENOL) solution unit dose cup 995 mg oral Q6H alteplase (CATHFLO ACTIVASE) injection 2 mg intercatheter PRN ampicillin (OMNIPEN) 2 g in sodium chloride (NS MBP) 100 mL infusion intravenous Q4H aspirin EC tablet 81 mg oral DAILY bisacodyl (DULCOLAX) suppository 10 mg rectal Daily PRN dextrose 50 % solution 12.5-25 g intravenous PRN docusate sodium (COLACE) capsule 100 mg oral BID PRN furosemide (LASIX) tablet 20 mg oral BID (BREAKFAST/DINNER) gabapentin (NEURONTIN) capsule 300 mg oral Q8H Or gabapentin (NEURONTIN) solution 300 mg oral Q8H gentamicin (GARAMYCIN) 45 mg in sodium chloride (NS) 0.9 % 50 mL IVPB intravenous Q12H heparin injection 5,000 Units subcutaneous Q12H insulin regular (HUMULIN R, NOVOLIN R) 2 Units bolus infusion intravenous PRN insulin regular (HUMULIN R,NOVOLIN R) 100 Units in sodium chloride (NS) 0.9 % 100 mL infusion intravenous CONTINUOUS ipratropium-albuterol (DUONEB) 0.5 mg-3 mg(2.5 mg base)/3 mL nebulizer solution 3 mL nebulization Q6H PRN ketAMINE (KETALAR) 500mg in NaCl 0.9% 50ml syringe intravenous CONTINUOUS methadone (DOLOPHINE) concentrated solution 95 mg oral DAILY metoprolol (LOPRESSOR) tablet 50 mg oral BID morphine (MS IR) tablet 30 mg oral Q3H PRN morphine injection 2-6 mg intravenous Q1H PRN ondansetron (PF) (ZOFRAN) injection 4 mg intravenous Q6H PRN potassium chloride SA (K-DUR, KLOR-CON) tablet 10 mEq oral BID senna (SENOKOT) tablet 2 Tab oral BID PRN sodium chloride 0.9 % (NS) infusion intravenous CONTINUOUS traMADol (ULTRAM) tablet 50-100 mg oral Q6H PRN Allergies: No Known Allergies Labs: Lab Results Component Value Date WBC 14.44 (H) 12/23/2017 HGB 7.3 (L) 12/23/2017 HCT 22.5 (L) 12/23/2017 MCV 84 12/23/2017 PLT 418 (H) 12/23/2017 Lab Results Component Value Date INR 1.5 (H) 12/20/2017 INR 1.3 (H) 12/08/2017 INR 1.3 (H) 12/07/2017 PROTIME 17.3 (H) 12/20/2017 PROTIME 15.5 (H) 12/08/2017 PROTIME 14.8 (H) 12/07/2017 Examination: Vitals: Blood pressure 136/89, pulse 86, temperature (!) 35.1 ??C (95.2 ??F), temperature source Tympanic, resp. rate 16, height 172.7 cm (68), weight 99.8 kg (220 lb), SpO2 94 %. General: mild distress, sitting on edge of bed Cardiac:WWP Resp: nonlabored, CTs still in place Neuro:moving all extremities, speech fluent Analysis: This is a 27 y.o. year old female now hx of IVDU, chronic methadone use, endocarditis, now POD3 s/p MVR for severe MR with acute on chronic pain and is experiencing ongoing pain. No changes to regimen today. Will consider weaning ketamine once chest tubes removed. Recommendations: -Continue methadone 95mg/daily -Continue ketamine -Continue scheduled tylenol -Continue morphine IR 30mg Q3hrs -Continue morphine [employer]AP[employer] boluses -Restart [employer] trazodone per discretion of primary team ?? APS will continue to follow, please page [phone] with any questions. Mari Read MD #[id number] 12/23/2017, 13:39 Associated attestation - Domingo Pina - 12/23/2017 1704 EDT Attestation statement: I saw and examined the patient with the resident/fellow. I agree with the findings and plan of care documented in the resident's/fellow's note. MD Amauri Peralta Alejandra, MD - 12/23/[address] Surgery Progress Note Admit Date: 12/07/2017 LOS: 16 days CC: Subacute bacterial endocarditis POD#3 s/p on pump tissue MVR 24-Hour Events: C/o worsening abdominal pain overnight HCT was noted to be 18.8, received 1 u pRBC, HCT now 22.[address] showed postsurgical changes to the chest, splenic hypodensities that may represent old areas of infarction or splenic abscesses, and small amount of free fluid and fat stranding adjacent to the pancreas extending into the mesentery and dependent pelvis APS was consulted for pain management Wires removed CT 140cc last 24hrs K: 4.2 WBC: 14.44 Lipase 313 Subjective: Patient reports being in pain this morning. Denies any fevers, chills, N/V. Passing flatus, no BM. Meds MAR Reviewed Objective: Vitals: Temp (24hrs), Av.8 ??C (96.5 ??F), Min:35.1 ??C (95.2 ??F), Max:36.7 ??C (98.1 ??F) Blood pressure 123/89, pulse 86, temperature (!) 35.1 ??C (95.2 ??F), temperature source Tympanic, resp. rate 16, height 172.7 cm (68), weight 99.8 kg (220 lb), SpO2 94 %. Patient is on RA Intake/Output Summary (Last 24 hours) at 12/23/17 1535 Last data filed at 12/23/17 1300 Gross per 24 hour Intake 1567.87 ml Output 1230 ml Net 337.87 ml I/O for Current Shift: Exam Gen: alert, in moderate distress Chest: CTAB, sternum stable, incision c/d/i, CT w/serosang drainage & no airleak Cor: RRR Abd: Soft, nontender, nondistended Ext: WWP, no edema Data Review CBC: Lab Results Component Value Date WBC 14.44 (H) 12/23/2017 RBC 2.69 (L) 12/23/2017 HGB 7.3 (L) 12/23/2017 HCT 22.5 (L) 12/23/2017 MCV 84 12/23/2017 MCH 27.1 12/23/2017 MCHC 32.4 12/23/2017 PLT 418 (H) 12/23/2017 NEUTROABS 11.27 (H) 12/23/2017 BMP: Lab Results Component Value Date NA 133 (L) 12/23/2017 K 4.2 12/23/2017 CL 101 12/23/2017 CO2 27 12/23/2017 BUN 21 12/23/2017 CREATININE 0.69 12/23/2017 GLUCOSEFINGE 94 12/23/2017 CALCIUM 7.9 (L) 12/07/2017 MG 2.0 12/23/2017 PHOS 3.9 12/08/2017 LABALBU 2.3 (L) 12/07/2017 Coagulation: Lab Results Component Value Date PROTIME 17.3 (H) 12/20/2017 INR 1.5 (H) 12/20/2017 PTT 36 12/20/2017 Imaging CXR 12/21/2017 The right internal jugular sheath remains, with the catheter seen previously through the sheath having been removed. The right-sided PICC line is seen its tip in the right atrium. The PICC line has notmoved proximally as compared to the prior study. Bilateral pleural Vikash drains and a mediastinal drain remain, with one of the mediastinal drains seen previously having been removed. The patient is status post midline sternotomy. There is persistent dense left lower lobe and incomplete right lower lobe atelectasis. EKG 12/21/2017 First degree AV block now present Low QRS voltage now present ST (T wave) deviation now present Atrial-paced complex(es) or rhythm no longer present CT abd w/wo contrast and pelvis w/ contrast 12/23/2017 Impression: 1. Postsurgical changes in the chest from recent mitral valve replacement, as above, with a small high density component of the pericardial effusion consistent with blood ??2.Two large well-circumscribed ovoid hypodense collection in the spleen may represent old areas ofinfarction or splenic abscesses. There are additional more ill-defined hypodense wedge-shaped splenic infarcts. No splenic hemorrhage. ??3. Small amount of free fluid and fat stranding adjacent to the pancreas extending into the mesentery and dependent pelvis. Correlate with lipase for evidence of pancreatitis. 4. Tiny 0.5 cm wedge-shaped hypodense region in the lower pole of the right kidney may reflect tiny infarct or less likely a cyst. ??5. Cholelithiasis Assessment: Ish Orellana is a(n) 27 y.o. old female who was admitted for Subacute bacterial endocarditis on 12/07/2017. She is POD#3 s/p on pump tissue MVR. Plan: ?? Lasix 20 mg PO BID, KCL 10 mg PO BID. ?? Lopressor 50 mg PO BID, titrate as tolerated ?? Aspirin 81 mg ?? Trend lipase ?? D/C CT ?? D/C garcia ?? Diet sips only ?? APS consulted for pain management: - methadone 95 mg QD - ketamine 10 mg/hr - morphine 30 mg PO PRN - scheduled tylenol - continue morphine [employer] boluses - PO dilaudid dc'd - hydromorphone [employer] dc'd ?? Day#3 of 42 of IV ampicillin and gentamicin per ID ?? DVT PPPx: heparin SQ BID ?? Transition off insulin gtt ?? F/u CXR, EKG Rosalia Baugh MD 12/23/2017 15:35 Ignacio Mcgraw MD - 12/23/2017 0403 EDT Brief Treatment Update Patient assessed due to new worsening abdominal pain. She states that the pain is diffuse in her abd, cannot localize where it is worse. Stating that pain meds are not helping at all. She has not had aBM yet. Complaining TTP throughout, no rebound, mildly distended. Lactate: 0.8, CBC notable for HCT: 19 (25) Plan: - CXR and CT abd/pelvis with contrast to assess for source of bleeding - Will transfuse 1 u pRBCs, post transfusion CBC 1 hour post transfusion This plan was discussed with Dr. Carlisle and Dr. Julia Mcgraw MD 12/23/2017 [facility] 12/22/2017 1323 EDT Pharmacy Note: Gentamicin Monitoring Ish Orellana is a 27 y.o. female receiving Gentamicin 45 mg IV Q12 for the treatment of endocarditis. Other antibiotics include: Ampicillin. 24 hour vitals and labs: Temp (24hrs), Av.3 ??C (97.4 ??F), Min:35.5 ??C (95.9 ??F), Max:37.7 ??C (99.9 ??F) Recent Labs 12/20/17 0458 12/21/17 0201 12/22/17 0548 CREATININE 0.90 1.13* 0.82 BUN 9* 15 25 Lab Results Component Value Date WBC 11.24 12/21/2017 Gentamicin steady state trough level drawn @ 20:53 prior to the 21:12 dose on 12/21/17 = 0.7 mcg/ml. (extrapolated value = 0.7 mcg/mL) Gentamicin steady state peak level drawn @ 22:13 post 21:12 dose on 12/21/17 which ended at 21:42 = 3.6 mcg/ml. (extrapolated value = 3.9 mcg/mL) Assessment and Plan: Gentamicin levels are within the ID recommended goals. Above levels were checked due to a decline in renal function post surgery but currently renal function has corrected. Due to levels being within range and renal function recovery I recommend continuing at current dose; no changes necessary. Continue to monitor renal function, CBC, In/Out, Tm Pharmacy will continue to follow ILIANA Saenz, PharmD Pager #[phone] Kristina Rdz - 12/22/2017 9227 EDT Spiritual Care Note Re: Ish Orellana : 1990, AGE: 27 y.o. Room: [place] [address] Ish Orellana who is listed as Unknown has received a visit from the Spiritual Care Department on12/22/2017. Need/Assessment: ?? Follow up visit with pt and partner ?? Ish sleeping, however, brief conversation with partner who has been at pt's bedside since admission ?? Per partner, Ish is doing well and spoke about Ish's recovery to home after discharge ?? Partner shared with Mobile Home Park Manager, they will be returning to home where they are currently living Intervention: ?? Mobile Home Park Manager provided a supportive, listening presence for pt's partner Outcome: ?? Plan of Action: Follow up visit with pt when awake No Follow up necessary - Needs met Continued Family Support x Continued Support from Mobile Home Park Manager following patient Make a Referral to: Continued Support with Volunteer Visits Connect with Community Supports Ask for a consult from: Other: Visit Initiated by: Referral by computer or phone message Time: End of Life / Comfort Care / Hospice Page direct contact by pager or staff person Time: 3 Level of Visit Services Provided: Anointing of Sick Prayer Communion Relaxation through music Assist Advanced Directives Integrative therapies Assist Decision Making Childs and Prayer at dying Exploration of Ethical issues Present at time of Family Support Other Chaplain Karthikeyan Russo [phone] Phone [phone] Spiritual Care is available 24 hours a day. Office hours are 0800 to 1700 Wednesday through Wednesday and 0830 to 1630 Wednesday and Wednesday. Interfaiand Anabaptist chaplains are available 24 hours a day. For routine consults please call and leave a message with the Spiritual Care Office ([phone]) and patients will be seen within 24 hours. For all emergent consults page the Anglican or Interfaith on-call Mobile Home Park Manager through PAS ([phone]). Mari Landon MD - 12/22/2017 1121 EDT Anesthesia Pain Service Rounding Note Chief complaint: acute on chronic pain HPI: This is a 27 y.o. female with a hx of IVDU (last used 3 years ago), chronic methadone, endocarditis,hep C, and is now POD1 s/p MVR for severe [place] Started on ketamine and IV opioids prior to extubationand [facility] methadone 95mg/day has been continued. Reporting significant pain and feels like IV dilaudidis the only thing that is helping. A 10 point ROS was reviewed and negative except as stated in the HPI. Scheduled Medications: Current Facility-Administered Medications: acetaminophen (TYLENOL) tablet 1,000 mg oral Q6H Or acetaminophen (TYLENOL) suppository 975 mg rectal Q6H Or acetaminophen (TYLENOL) solution unit dose cup 995 mg oral Q6H alteplase (CATHFLO ACTIVASE) injection 2 mg intercatheter PRN ampicillin (OMNIPEN) 2 g in sodium chloride (NS MBP) 100 mL infusion intravenous Q4H aspirin EC tablet 81 mg oral DAILY bisacodyl (DULCOLAX) suppository 10 mg rectal Daily PRN dextrose 50 % solution 12.5-25 g intravenous PRN docusate sodium (COLACE) capsule 100 mg oral BID PRN furosemide (LASIX) tablet 20 mg oral BID (BREAKFAST/DINNER) gabapentin (NEURONTIN) capsule 300 mg oral Q8H Or gabapentin (NEURONTIN) solution 300 mg oral Q8H gentamicin (GARAMYCIN) 45 mg in sodium chloride (NS) 0.9 % 50 mL IVPB intravenous Q12H heparin injection 5,000 Units subcutaneous Q12H HYDROmorphone (DILAUDID) tablet 2-4 mg oral Q4H PRN Or HYDROmorphone (DILAUDID) tablet 2 mg oral Q4H PRN HYDROmorphone 1 mg/ml (DILAUDID) [employer] syringe, 30 ml intravenous [employer] insulin regular (HUMULIN R, NOVOLIN R) 2 Units bolus infusion intravenous PRN insulin regular (HUMULIN R,NOVOLIN R) 100 Units in sodium chloride (NS) 0.9 % 100 mL infusion intravenous CONTINUOUS ketAMINE (KETALAR) 500mg in NaCl 0.9% 50ml syringe intravenous CONTINUOUS methadone (DOLOPHINE) concentrated solution 95 mg oral DAILY metoprolol (LOPRESSOR) tablet 25 mg oral BID morphine injection 1-4 mg intravenous Q1H PRN ondansetron (PF) (ZOFRAN) injection 4 mg intravenous Q6H PRN potassium chloride SA (K-DUR, KLOR-CON) tablet 10 mEq oral BID senna (SENOKOT) tablet 2 Tab oral BID PRN sodium chloride 0.9 % (NS) infusion intravenous CONTINUOUS traMADol (ULTRAM) tablet 50-100 mg oral Q6H PRN Allergies: No Known Allergies Labs: Lab Results Component Value Date WBC 11.24 12/21/2017 HGB 7.7 (L) 12/21/2017 HCT 24.6 (L) 12/21/2017 MCV 83 12/21/2017 PLT 283 12/21/2017 Lab Results Component Value Date INR 1.5 (H) 12/20/2017 INR 1.3 (H) 12/08/2017 INR 1.3 (H) 12/07/2017 PROTIME 17.3 (H) 12/20/2017 PROTIME 15.5 (H) 12/08/2017 PROTIME 14.8 (H) 12/07/2017 Examination: Vitals: Blood pressure 134/86, pulse 80, temperature 35.7 ??C (96.3 ??F), temperature source Tympanic, resp. rate 24, height 172.7 cm (68), weight 99.8 kg (220 lb), SpO2 95 %. General:moderate distress Cardiac:WWP Resp: non labored, CTs still in place Neuro:moving all extremities, speech fluent Analysis: This is a 27 y.o. year old female now hx of IVDU, chronic methadone use, endocarditis, now POD2 s/p MVR for severe MR with acute on chronic pain and is experiencing ongoing pain. Ketamine increase yesterday did not seem to make a difference. Recommendations: -Continue methadone 95mg/daily -Decrease ketamine to 10mg (orders placed) -continue scheduled tylenol -continue PO dilaudid -continue [employer]-would like to DC today and convert to PO, but will continue another day -continue morphine [employer] boluses -restart [employer] trazodone per discretion of primary team ?? APS will continue to follow, please page [phone] with any questions. Mari Read MD #[id number] 12/22/2017, 11:21 Associated attestation - Domingo Pina - 12/22/2017 1256 EDT Attestation statement: I saw and examined the patient with the resident/fellow. I agree with the findings and plan of care documented in the resident's/fellow's note. MD Amauri Peralta Alejandra, MD - 12/22/[address] Surgery Progress Note Admit Date: 12/07/2017 LOS: 15 days CC: Subacute bacterial endocarditis POD#2 s/p on pump tissue MVR 24-Hour Events: Transferred to floor A-line, SLIC removed APS consulted Ketamine increased to 20 mg/hr CXR showed slight overall improvement in scattered areas of atelectasis. EKG showed sinus rhythm with first degree AV block, moderate st depression CT 94cc last 24hrs K: 4.3 Subjective: Patient states I don't feel good this morning. Denies any fevers, chills, N/V. Passingflatus, no BM. Meds MAR Reviewed Objective: Vitals: Temp (24hrs), Av.3 ??C (97.4 ??F), Min:35.5 ??C (95.9 ??F), Max:37.7 ??C (99.9 ??F) Blood pressure 134/86, pulse 80, temperature 35.7 ??C (96.3 ??F), temperature source Tympanic, resp.rate 24, height 172.7 cm (68), weight 99.8 kg (220 lb), SpO2 95 %. Patient is on 2 liters/min via nasal prongs Intake/Output Summary (Last 24 hours) at 12/22/17 1202 Last data filed at 12/22/17 0450 Gross per 24 hour Intake 966.41 ml Output 840 ml Net 126.41 ml I/O for Current Shift: Exam Gen: alert, in moderate distress Chest: CTAB, sternum stable, incision c/d/i, CT w/serosang drainage & no airleak Cor: RRR Abd: Soft, nontender, nondistended Ext: WWP, no edema Data Review CBC: Lab Results Component Value Date WBC 11.24 12/21/2017 RBC 2.96 (L) 12/21/2017 HGB 7.7 (L) 12/21/2017 HCT 24.6 (L) 12/21/2017 MCV 83 12/21/2017 MCH 26.0 (L) 12/21/2017 MCHC 31.3 (L) 12/21/2017 PLT 283 12/21/2017 NEUTROABS 2.09 (L) 12/17/2017 BMP: Lab Results Component Value Date NA 132 (L) 12/22/2017 K 4.3 12/22/2017 CL 99 12/22/2017 CO2 26 12/22/2017 BUN 15 12/21/2017 CREATININE 1.13 (H) 12/21/2017 GLUCOSEFINGE 123 (H) 12/22/2017 CALCIUM 7.9 (L) 12/07/2017 MG 2.0 12/20/2017 PHOS 3.9 12/08/2017 LABALBU 2.3 (L) 12/07/2017 Coagulation: Lab Results Component Value Date PROTIME 17.3 (H) 12/20/2017 INR 1.5 (H) 12/20/2017 PTT 36 12/20/2017 Imaging CXR 12/21/2017 The right internal jugular sheath remains, with the catheter seen previously through the sheath having been removed. The right-sided PICC line is seen its tip in the right atrium. The PICC line has notmoved proximally as compared to the prior study. Bilateral pleural Vikash drains and a mediastinal drain remain, with one of the mediastinal drains seen previously having been removed. The patient is status post midline sternotomy. There is persistent dense left lower lobe and incomplete right lower lobe atelectasis. EKG 12/21/2017 First degree AV block now present Low QRS voltage now present ST (T wave) deviation now present Atrial-paced complex(es) or rhythm no longer present Assessment: Ish Orellana is a(n) 27 y.o. old female who was admitted for Subacute bacterial endocarditis on 12/07/2017. She is POD#2 s/p on pump tissue MVR. Plan: ?? Lasix 20 mg PO BID, KCL 10 mg PO QD. ?? Lopressor 25 mg PO BID, titrate as tolerated ?? D/c wires, leave CT in place today ?? D/c cordis ?? D/c garcia tomorrow ?? Diet clears, advance to regular ?? APS consulted for pain management: - methadone 95 mg QD - ketamine 20 mg/hr - scheduled tylenol - continue PO dilaudid - continue [employer], plan to d/c today vs tomorrow - continue morphine [employer] boluses, d/c if more comfortable w/ ketamine ?? Day# 2 of 42 of IV ampicillin and gentamicin per ID Rosalia Baugh MD 12/22/2017 12:02 Rosalia Baugh MD - 12/21/20171826 EDT Repeat CXR obtained due to concern for it being pulled out. PICC line in same external position as placement on 12/14/17. Okay to use Tere Chi MD - 12/21/20177 EDT Infectious Disease Consultation Follow Up Note Admit Date: 12/07/2017 Hospital Day: LOS: 14 days Date of Service: 12/21/2017 Followup For: endocarditis Subjective: To OR yesterday Transferred out of the SICU today Anti-infectives & Other Pertinent Medications: Gentamicin D#12 Ampicillin D#13 Vital Signs: BP (!) 149/84 (BP Cuff Location: Left arm, Patient Position: Semi fowlers) Pulse 80 Temp 37.7 ??C (99.9 ??F) (Tympanic) Resp 22 Ht 172.7 cm (68) Wt 99.8 kg (220 lb) SpO2 97% BMI 33.45 kg/m2 Exam: Sternal incision without induration Rash improving Right PICC without induration CT in place Data Review: Laboratory data reviewed. Pertinent positives include: WBC/RBC/HGB/HCT/MCH/MCHC/PLT11.24/2.96/7.7/24.6/26.0/31.3/283 (12/21 0201) Creat 1.13 BC 4/5 09/09 enteroccoccus BC 12/11 no growth Tissue valve +polys, no bacteria Atrial bed +polys, no bacteria 12/09 HIV RNA undetected Gent peak 3.4 ECHO 12/15 Summary: ? 1. Left ventricle: The cavity size was mildly dilated. Wall thickness ? was normal. Systolic function was normal. The estimated ejection ? fraction was 60-65%. Wall motion was normal; there were no regional ? wall motion abnormalities. ?? 2. Right ventricle: The cavity size was normal. Wall thickness was ? normal. Systolic function was normal. ?? 3. Mitral valve: Moderate thickening of the anterior leaflet (middle and ? lateral segment(s)). Thickening of the posterior leaflet. There was a ? large, layered, mobile vegetation on the atrial aspect of the ? anterior leaflet that extends into the left ventricle during ? diastole. There was a large, protruding, serpiginous, highly mobile ? vegetation on the atrial aspect of the posterior leaflet. There was ? evidence for a large, mobile phlegmon and soft tissue erosion ? extending from the posterior leaflet annulus to the posterior and ? lateral wall of the left atrium. There was severe regurgitation ? directed eccentrically. ?? 4. Left atrium: No evidence of thrombus in the appendage. The appendage ? was morphologically a left appendage, multilobulated, and of normal ? size. Emptying velocity was normal. ?? 5. Atrial septum: No defect or patent foramen ovale was identified. ? Doppler showed no atrial level shunt, in the baseline state. ?? 6. Line: A venous catheter was visualized in the superior vena cava, ? with its tip in the right atrium. No abnormal features noted. 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 2) JEAN CLAUDE- slight increase in creatinine following OR , discussed with pharmacy and they will repeat GENT levels tonight to see if her dose needs to be further adjusted 2) HIV Ab + - her HIV RNA was negative 3) Hep C 4) Splenic abscess/infarct - secondary to #1 Recommendations: 1) Continue Ampicillin 2) Continue Gentamicin 3) Will repeat GENT levels tonight 4) Will follow up with OR cultures 5) Will need to re-start the clock regarding abx therapy as today is now day #1 of planned 42 days of IV therapy 6) Would plan for oral therapy following IV Tere Omalley MD 12/21/2017 18:27 Karolina Melvin, RN - 12/21/2017 1816 EDT The IV team was called to assess PICC after it had been accidentally tugged on. The external measurement is unchanged at 3 cm out. A CXR was ordered and then the IV team was contacted. The CXR report states PICC tip is the RA. CXR reviewed with Dr. Baugh and compared to previous CXR. Pt is asymptomatic. As per Dr. Baugh ok to leave PICC in current position. Thank you. Nila Kendrick RN - 12/21/2017 1217 EDT Case Management Contact Note: Met with Ish's mom while Ish was having her chest tubes removed. Haleigh is requesting help in getting Ish SSI. I explained that we have someone in house whohelps with these things and I would put in a referral to her. Haleigh will be leaving today to go home by 3 pm, however she can be reached by phone and her number is in the chart. Nila Fernandez RN, BSN #[id number] Rosalia Salazar MD - 12/21/[address] Surgery Progress Note Admit Date: 12/07/2017 LOS: 14 days CC: Subacute bacterial endocarditis POD#1 s/p on pump tissue MVR 24-Hour Events: Underwent procedure above, well tolerated Extubated, off pressors Subjective: Complaining of pain everywhere without any relief. Denies any fevers, chills. Endorses nausea but no vomiting. No flatus or BM. Meds MAR Reviewed Objective: Vitals: Temp (24hrs), Av.2 ??C (97.2 ??F), Min:35.5 ??C (95.9 ??F), Max:36.6 ??C (97.9 ??F) Blood pressure 100/65, pulse 80, temperature 36.6 ??C (97.9 ??F), resp. rate 18, height 172.7 cm (68), weight 99.8 kg (220 lb), SpO2 98 %. Patient is on 2 liters/min via nasal prongs Intake/Output Summary (Last 24 hours) at 12/21/17 0823 Last data filed at 12/21/17 0700 Gross per 24 hour Intake 5012.27 ml Output 3038 ml Net 1974.27 ml I/O for Current Shift: 12/21 0700 - 12/21 1459 In: 11.5 [I.V.:11.5] Out: 30 [Urine:30] Exam Gen: alert, conversant Chest: CTAB, sternum stable, incision c/d/i, CT w/serosang drainage & no airleak Cor: RRR Abd: Soft, nontender, nondistended Ext: WWP, no edema Data Review CBC: Lab Results Component Value Date WBC 11.24 12/21/2017 RBC 2.96 (L) 12/21/2017 HGB 7.7 (L) 12/21/2017 HCT 24.6 (L) 12/21/2017 MCV 83 12/21/2017 MCH 26.0 (L) 12/21/2017 MCHC 31.3 (L) 12/21/2017 PLT 283 12/21/2017 NEUTROABS 2.09 (L) 12/17/2017 BMP: Lab Results Component Value Date NA 135 (L) 12/21/2017 K 4.7 12/21/2017 CL 105 12/21/2017 CO2 20 (L) 12/21/2017 BUN 15 12/21/2017 CREATININE 1.13 (H) 12/21/2017 GLUCOSEFINGE 124 (H) 12/21/2017 CALCIUM 7.9 (L) 12/07/2017 MG 2.0 12/20/2017 PHOS 3.9 12/08/2017 LABALBU 2.3 (L) 12/07/2017 Coagulation: Lab Results Component Value Date PROTIME 17.3 (H) 12/20/2017 INR 1.5 (H) 12/20/2017 PTT 36 12/20/2017 Assessment: Ihs Orellana is a(n) 27 y.o. old female who was admitted for Subacute bacterial endocarditis on 12/07/2017. She is POD#1 s/p on pump tissue MVR. Plan: ?? D/c SLIC & A-line ?? F/u CXR, EKG ?? Lasix 20 mg PO BID, hold potassium today ?? Start Lopressor 25 mg PO BID, titrate as tolerated ?? Advance diet to clears, consider further advance when nausea subsides ?? Transfer to floor ?? APS consulted, appreciate assistance Rosalia Baugh MD 12/21/2017 8:23 Kathryn Manzanares RN - 12/20/20172052 EDT 1903: Pt POD#0 MVR r/t IVDA related endocarditis. Extubated at shift change to 2lpm via NC, precedexdecreased, on stephanie gtt to maintain SBP >90mmHg and MAPs >55. Very agitated, removing NC and pulling at lines, flailing and thrashing in bed. On ketamine infusion and dilaudid [employer] and still c/o severe pain, screaming and swearing, tachypneic w/ shallow breathing d/t discomfort. Mother and BF to bed side to try and calm and redirect pt w/ minimal improvement. CTx4 patent and draining sanguinous fluid. 1953: Spoke to MD Lagos re pt BP lability and increasing pressor requirement. aware and ordered 500cc Plasmalyte bolus. Pt BP responding well to bolus. Remains impulsive and inappropriate, demonstrating poor coping skills. 2105: Pt remains fairly agitated despite copious amounts of pain medication, repositioning or attempts at distraction (see eMAR for medication admin records). MD [place] updated and aware, plan to increase ketamine to try and decrease precedex since pt is bradycardic to the 40s underneath atrial paced rh ythm @64bpm. 2109: Pt K+ recheck CRITICAL @6.6. MD [place]os aware, recheck sample drawn, unable to obtain adequate recheck EKG because pt unlying HR too slow and causes precipitous drop in BP. 2137: Pt K+ recheck still critical @6.8, iCal low @1.05. MD [place] updated and aware. Treated elevated K+ w/ insulin and D50 and repleting Ca+. Pt continues to demonstrate impulsive behaviors and very poor coping w/ discomfort. Needs ongoing reminders to use dilaudid [employer] and still receiving PRN IVP morphine and PO pain adjuncts as well. 3: Pt appears much more comfortable, resting quietly. Able to wean down stephanie gtt. 0014: Pt remains difficult to manage d/t poor coping mechanisms and poor pain tolerance paired w/ IVDA history. Is either asleep, or if awake is frequently shouting, refusing care or flailing and thrashing and at risk for pulling out IV lines etc. 0250: Pt experienced another hypotensive swoon s/p repositioning. MD [place]os alpha paged, 500cc plasmalyte bolus ordered and adminstered. 0321: Pt rec'd insulin and D50 for elevated K+ 5.6. Approx 1-2minutes later began screaming 'You're trying to kill me! Don't let me ! Help me!' Became tachycardic to <120bpm, and hypertensive w/ SBP >165mmHg.w/ SpO2 down to 93%. Flailing, thrashing and pulling at lines. Episode lasted approx 2 minutes before pt HR returned to NSR in the 70s, SpO2 >97% and requiring a small amount of stephanie gtt to maintain SBP goals >90mmHg. MD [place]os updated and aware of the episode. No further orders at this time. 0445: Pt mother at bedside, encouraging pt to do deep breathing exercises. Pt remains impulsive and intermittently agitated, flailing and thrashing, and requiring frequent redirection and encouragementto participate in therapies and care as required and appropriate. 0641: Pt OOB to chair w/ 2 assist. Remains impulsive and inappropriate w/ poor coping. Refusing to participate w/ IS. Medicated for pain but still c/o 10/10 pain. VSS. Mother at bedside attempting to reassure pt. 0727: Report given to RN Bolivar. Pt still c/o severe discomfort in the chair. CCarroll sutherland, RT - 12/20/2017 1917 EDT Respiratory Extubation Note Pre-procedure - The extubation order and correct patient verified. The procedure was coordinated with the RN. Procedure - The patient's oral pharynx and ETT were suctioned for Secretion Amount: Small Secretion Color: White, Yellow and Secretion Consistency: Thin. A cuff leak was present. The patient was placedon 100% resuscitation bag and the ventilator placed in standby. The patient was extubated and placedon O2 Flow Rate (L/min): 2 l/min O2 Device: Nasal cannula. No stridor was noted and the patient was able to produce voice. RT RONNELL 12/20/17 Mari Landon MD - 12/20/2017 6909 EDT Brief APS Note Informed of request for APS consult by Dr. Dumont via SICU team. Patient is currently intubated and sedated and undergoing postoperative resuscitation. Takes 95mg of methadone and 50mg of trazodone at home. It appears that she didn't get her methadone this morning but one missed dose shouldn't be an issue for withdrawal because it is so long acting. I would expect that she should be able to restart her methadone by tomorrow morning, however, if not the case, 95mg of methadone is equivalent to just under 2mg of IV HM/hr with a 25% reduction to account for incomplete cross tolerance. Because of her fdc opioid use, expect that she will require a higher dose of opioids than her [employer] dose. The SICU team has ordered ketamine at 10mg/hr, with plenty of room to titrate up to about 25mg/hr if necessary, while monitoring for any dysphoric effects (hallucinations, disturbing dreams). I recommend a HM [employer] and titrate up as needed per primary team's discretion overnight. APS will formally consult in the morning but please call (page # [phone]) with any questions. Mari Read MD 12/20/17 16:17 Pager # [phone] osario Ashley RN - 12/20/2017 0736 EDT Pt admitted 12/07/2017. UPT from this date negative, pt denies , declines UPT DOS. MD Gutierrez informed by alpha page, phoned OR #[phone] and MD Dumont made aware. Rosario Jones RN - 12/20/2017 0721 EDT Pt oriented x 3, very drowsy, answers questions appropriately. Lavinia Friedman [facility] - 12/19/2017 1041 EDT Pharmacy Note - Aminoglycoside Monitoring Ish Orellana is a 27 y.o. female continuing gentamicin 45 mg IV Q12 hours for the treatment of endocarditis. The dosing was recently decreased on 12/17/2017, so a trough and peak level were drawn today to assess appropriateness. Other antibiotics include: Ampicillin 2000 mg IV Q4 hours. 24 hour vitals and labs: Temp (24hrs), Av.2 ??C (97.2 ??F), Min:36 ??C (96.8 ??F), Max:36.5 ??C (97.7 ??F) In/Out: Not Recorded. Recent Labs 12/16/17 1144 12/17/17 0600 12/18/17 0600 CREATININE 0.90 0.92 0.89 BUN 8* -- 10 Lab Results Component Value Date WBC 6.11 12/18/2017 Gentamicin trough level = 0.6 mcg/ml (drawn prior to the 4th dose on 12/19/2017 at 0744) --> Extrapolated trough level = 0.6 mcg/mL. Gentamicin peak level = 3 mcg/mL (drawn after the 4th dose on 12/19/2017 @ 0925) --> Extrapolated trough level = 3.5 mcg/mL. Assessment and Plan: Gentamicin trough and peak levels are within desired range (reference trough < 1 mcg/mL and peak range 3-4 mcg/mL). 1) Continue gentamicin 45 mg IV Q12 hours. 2) If patient and renal function remains stable, will obtain next set of levels in the next 5-7 daysor sooner. 3) Continue to monitor renal function, CBC, In/Out, and Tm. SCr should be monitored at least every other day. Discussed dosing regimen with Dr. Estrada Mccarthy. Pharmacy will continue to follow. Thanks, Lavinia Chaves [facility] Pager #[phone] Isabelle Odom MD - 12/19/2017 0751 EDT Medicine Progress Note Service Date: 12/19/2017 Admit Date: 12/07/2017 15:08 Reason for Admission: 27 y.o. female admitted with Enterococcus endocarditis. 24 Hour Events: - CT surgery scheduled for 12/20 - Ongoing conversation with CTS and dental concerning dental XRs Wednesday before surgery - No acute events o/n Subjective/Objective Subjective Patient seen this morning at bedside alongside Dr. Garcia and Dr. Mcdaniels. Patient reports ongoing anxiety about the upcoming operation, her indecision regarding which valve to choose, the monitoring after surgery, and other matters. Also anxious about leg pain and arm/leg rash. Despite all of this, patient denies CP, SOB, N/V, fev/chills, abd pain. Last BM two days ago. Requiring walker to ambulate as right leg weak. Dental concerns were not discussed with patient due to current uncertainty about need for dental radiographs. Review of Systems Pertinent items are noted in Subjective/HPI Objective Vital Signs Temp: [36 ??C (96.8 ??F)-36.5 ??C (97.7 ??F)] (), Heart Rate: [66 BPM-99 BPM] (), Resp: [16-18] (), BP: (120-130)/(80-95) (), SpO2: [96 %-98 %] () Physical Exam General: sitting up in bed, in NAD, anxious HEENT: NCAT, MMM, sclera white Lungs: CTABL, no wheezes or crackles Heart: RRR, S1 and S2 normal, 3/6 systolic murmur heard best at USBs Abdomen: soft, NT, BS+ : no garcia Ext: extremities warm, right PICC, no edema, right 4th digit less tender/swollen; mild R medial calfpain on palpation, but no erythema, induration or swelling Skin: diffuse mostly papular rash arms and legs - mostly faded Neuro: A+Ox3, LAMBERT Mental status: mood anxious Is PICC or central line present? PICC Medications Reviewed: Ativan changed to 1mg BID prn Nicotine inhaler added prn Labs Reviewed: CBC: Recent Labs 12/16/17 1144 12/17/17 0600 12/18/17 0816 WBC 4.89 4.86 6.11 RBC 3.36* 3.25* 3.47* HGB 8.4* 8.1* 8.6* HCT 27.3* 26.4* 27.9* MCV 81 81 80* MCH 25.0* 24.9* 24.8* MCHC 30.8* 30.7* 30.8* PLT 254 249 312 NEUTROABS -- 2.09* -- BMP: Recent Labs 12/16/17 1144 12/17/17 0600 12/18/17 0600 NA 138 -- 137 K 4.4 -- 4.1 CL 103 -- 102 CO2 31 -- 29 BUN 8* -- 10 CREATININE 0.90 0.92 0.89 MG 2.0 -- 2.0 Imaging Reviewed: KRISTOPHER: Summary: 1. Left ventricle: The cavity size was mildly dilated. Wall thickness ? was normal. Systolic function was normal. The estimated ejection ? fraction was 60-65%. Wall motion was normal; there were no regional ? wall motion abnormalities. 2. Right ventricle: The cavity size was normal. Wall thickness was ? normal. Systolic function was normal. 3. Mitral valve: Moderate thickening of the anterior leaflet (middle and ? lateral segment(s)). Thickening of the posterior leaflet. There was a ? large, layered, mobile vegetation on the atrial aspect of the ? anterior leaflet that extends into the left ventricle during ? diastole. There was a large, protruding, serpiginous, highly mobile ? vegetation on the atrial aspect of the posterior leaflet. There was ? evidence for a large, mobile phlegmon and soft tissue erosion ? extending from the posterior leaflet annulus to the posterior and ? lateral wall of the left atrium. There was severe regurgitation ? directed eccentrically. 4. Left atrium: No evidence of thrombus in the appendage. The appendage ? was morphologically a left appendage, multilobulated, and of normal ? size. Emptying velocity was normal. 5. Atrial septum: No defect or patent foramen ovale was identified. ? Doppler showed no atrial level shunt, in the baseline state. 6. Line: A venous catheter was visualized in the superior vena cava, ? with its tip in the right atrium. No abnormal features noted. 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 CT surgery consulted, appreciate care. ID consulted, appreciate care. Remains on ampicillin and gentamycin. PICC in place. KRISTOPHER concerning for multiple mitral valve vegetations and severe regurgitation, requiring CTS on 12/20. Dental consulted but for full clearance require dental radiographs. Considering possibly discharging patient Wednesday in order to receive dental radiographs and then readmit prior to surgery on Wednesday. This will be further discussed among the teams involved. APS recommended no change in methadone prior to surgery, and can be contacts if CTS needs extra pain coverage/assistance. Pain currently controlled. Plan Enterococcal endocarditis: with ongoing embolic phenomenon and severe mitral regurgitation - ID, CT surgery following - ampicillin and gentamycin. Need to re-order abx on 12/22 - negative blood cx 12/11 --> NGTD final - telemetry - gent being adjusted with pharmacy assistance - CTS 12/20 requiring dental clearance - - CT of facial bones today - RLE pain: U/S (-) for DVT. Robaxin for pain. - NPO after midnight Anemia - s/p 2 units RBC this admission, stable. Presumed 10/08 to inflammation/infection. - transfuse to maintain Hgb > 7 - labs q 48 hours unless needed for gent monitoring Rash - benadryl cream for itch HIV - False (+) -> ID informed patient and family of negative results Chronic pain / IVDU - ct [employer] methadone 95 mg PO daily - no change required prior to surgery - stool softeners - med psych consultation Anxiety - ativan 1mg po BID prn Tobacco abuse - nicotine inhaler prn Hep C - rec f/u for treatment once endocarditis treated Regular diet DVT ppx - ambulation Estrada Mccarthy MD 7:52 Internal Medicine Service PGY-1 [facility] Attending Attestation I saw and examined the patient with the resident. I discussed the patient with Dr. Mccarthy. I agree with and edited (in green) the findings and plan of care as documented in the note above. Plan for mitral valve replacement surgery tomorrow morning and transfer to surgical service thereafter. Isabelle Garcia MD Internal Medicine Hospitalist 12/19/2017 13:55 Isabelle Odom MD - 12/18/2017 1024 EDT Medicine Progress Note Service Date: 12/18/2017 Admit Date: 12/07/2017 15:08 Reason for Admission: 27 y.o. female admitted with Enterococcus endocarditis. 24 Hour Events: - CT surgery scheduled for 12/20 - CTS resident informed that dental consult already obtained 12/09 - APS contacted: rec no change in methadone dose prior to surgery Subjective/Objective Subjective Patient seen this morning alongside the full medicine team. Patient reports continued right leg painbut that she is trying to ignore it. Feels the robaxin helped but is still very painful--worse with movement and pressure so has required her boyfriend and nurse to carry her when she needs to use the b athroom. Patient denies CP, SOB, N/V, fev/chills, abd pain. Her rash continues to improve. Patient is nervous about her surgery on Wednesday and is still working to decide on a mechanical vs bovine valve--understands the severity of resuming IVDU after surgery but believe the mechanical valve will help keep her from IVDU more. Is concerned about being on warfarin and is concerned about getting future valve replacements. Patient responds to redirection toward staying in the moment. Review of Systems Pertinent items are noted in Subjective/HPI Objective Vital Signs Temp: [35.8 ??C (96.4 ??F)-35.9 ??C (96.6 ??F)] (), Heart Rate: [79 BPM-97 BPM] (), Resp: [18] (), BP: (120-133)/(75-88) (), SpO2: [96 %-97 %] () Physical Exam General: sitting up in bed, in NAD, anxious at times HEENT: NCAT, MMM, sclera white Lungs: CTABL, no wheezes or crackles Heart: RRR, S1 and S2 normal, 3/6 systolic murmur heard best at USBs Abdomen: soft, NT, BS+ : no garcia Ext: extremities warm, right PICC, no edema, right 4th digit red, tender, swollen; two dots on twoother digits similar to how right 4th digit presentation began; mild R medial calf pain on palpation, but no erythema, induration or swelling Skin: diffuse mostly papular rash arms and legs - mostly faded Neuro: A+Ox3, LAMBERT Mental status: mood anxious Is PICC or central line present? PICC Medications Reviewed: Ativan changed to 1mg BID prn Nicotine inhaler added prn Labs Reviewed: CBC: Recent Labs 12/16/17 1144 12/17/17 0600 12/18/17 0816 WBC 4.89 4.86 6.11 RBC 3.36* 3.25* 3.47* HGB 8.4* 8.1* 8.6* HCT 27.3* 26.4* 27.9* MCV 81 81 80* MCH 25.0* 24.9* 24.8* MCHC 30.8* 30.7* 30.8* PLT 254 249 312 NEUTROABS -- 2.09* -- BMP: Recent Labs 12/16/17 1144 12/17/17 0600 12/18/17 0600 NA 138 -- 137 K 4.4 -- 4.1 CL 103 -- 102 CO2 31 -- 29 BUN 8* -- 10 CREATININE 0.90 0.92 0.89 MG 2.0 -- 2.0 Imaging Reviewed: KRISTOPHER: Summary: 1. Left ventricle: The cavity size was mildly dilated. Wall thickness ? was normal. Systolic function was normal. The estimated ejection ? fraction was 60-65%. Wall motion was normal; there were no regional ? wall motion abnormalities. 2. Right ventricle: The cavity size was normal. Wall thickness was ? normal. Systolic function was normal. 3. Mitral valve: Moderate thickening of the anterior leaflet (middle and ? lateral segment(s)). Thickening of the posterior leaflet. There was a ? large, layered, mobile vegetation on the atrial aspect of the ? anterior leaflet that extends into the left ventricle during ? diastole. There was a large, protruding, serpiginous, highly mobile ? vegetation on the atrial aspect of the posterior leaflet. There was ? evidence for a large, mobile phlegmon and soft tissue erosion ? extending from the posterior leaflet annulus to the posterior and ? lateral wall of the left atrium. There was severe regurgitation ? directed eccentrically. 4. Left atrium: No evidence of thrombus in the appendage. The appendage ? was morphologically a left appendage, multilobulated, and of normal ? size. Emptying velocity was normal. 5. Atrial septum: No defect or patent foramen ovale was identified. ? Doppler showed no atrial level shunt, in the baseline state. 6. Line: A venous catheter was visualized in the superior vena cava, ? with its tip in the right atrium. No abnormal features noted. 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 CT surgery consulted, appreciate care. ID consulted, appreciate care. Remains on ampicillin and gentamycin. PICC in place. KRISTOPHER concerning for multiple mitral valve vegetations and severe regurgitation, requiring CTS on 12/20. Dental clearance from 12/09. APS recommended no change in methadone treatment prior to surgery - if CTS needs extrapain coverage/assistance can contact anesthesia. Plan Enterococcal endocarditis: with ongoing embolic phenomenon and severe mitral regurgitation - ID, CT surgery following - ampicillin and gentamycin. Need to re-order abx on 12/22 - negative blood cx 12/11 --> NGTD final - telemetry - gent being adjusted with pharmacy assistance - CTS 12/20 - dental clearance from 12/09 - RLE pain: U/S (-) for DVT. Robaxin for pain. Anemia - s/p 2 units RBC this admission, stable. Presumed 2/2 to inflammation/infection. - transfuse to maintain Hgb > 7 - labs q 48 hours unless needed for gent monitoring Rash - benadryl cream for itch HIV - False (+) -> ID informed patient and family of negative results Chronic pain / IVDU - ct [employer] methadone 95 mg PO daily - no change required prior to surgery - stool softeners - med psych consultation Anxiety - ativan 1mg po BID prn Tobacco abuse - nicotine inhaler prn Hep C - rec f/u for treatment once endocarditis treated Regular diet DVT ppx - ambulation Estrada Mccarthy MD 10:24 Internal Medicine Service PGY-1 [facility] Attending Attestation I saw and examined the patient with the resident. I discussed the patient with Dr. Mccarthy and Dr. Paul. I agree with and edited (in green) the findings and plan of care as documented in the noteabove. 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 She was referred for psychological services due to her history ofIVDU and to support her coping with a likely long and stressful hospitalization. Subjective: This is hell but eventually I'll be good. Objective: Ish was reclined in her hospital bed when I arrived and was receptive to meeting with me. She described feeling intense lower right leg pain, as well as substantial anxiety, and presented as very agitated and anxious. She was alert and highly distressed but was cooperative and relatively easy to engage in conversation, appearing to benefit from talk distracting her from her physical pain. She maintained low eye contact and spoke with pressured speech. Her thought process was slightlyperseverative on pain but mostly linear in response to direct questions. She demonstrated fair insight and judgment. Thought content: Present-focused, ruminative on present pain. Session content: Ish reported on recent events leading up to this hospitalization, describing her experiences with opiates dating back several years, her initial attempts at suboxone MAT which sheabused through IV, and her much more successful use of methadone MAT over the past several years. She shared that her step-mother's last November resulted in her father's relapse from his own IVDU treatment and that it was in this context that she suffered a one-day lapse about a year ago while using a needle that he gave her. She described how his from endocarditis last summer led her to believe that she acquired her current infection from this use as she reported maintaining sobriety eversince. We discussed her current treatment regimen (MAT and counseling through [facility]) thathas enabled this success and she convincingly communicated that she did not perceive need for new services following this hospitalization. We also reviewed her post-discharge plans and she reported that she plans to return to her apartment shared with her sober boyfriend and good friend and noted thatit is a positive, safe, and recovery- supportive home. Ish's immediate concerns focus on her current pain and her anticipated CT surgery on Wednesday 12/20. She expressed anxiety for surgery, requesting to not discuss it much as she finds focusing on it unproductive or unhelpful at this point. She stated that she is unable to similarly deflect her attention from pain, however, and expressed concern for how she will tolerate it over the weekend after hermethadone is held in preparation for surgery. She reported that her mom and boyfriend, who are both positive, supportive presences in her life, will be with her all weekend and that that will help her a great deal. I offered to help her engage in various cognitive-behavioral strategies for managing pain or anxiety but she declined this opportunity. I reflected on how she appeared to benefit from social communication as distraction from pain and we briefly discussed how her mother and boyfriend can help her in this manner through the weekend. Suicidality: Did not endorse SI. 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 Her current presentation is consistent with an adjustment react ion with anxiety and depressed mood to these recent medical stressors and a comprehensive psychological evaluation would likely warrant diagnosis of an opioid use disorder, on maintenance therapy. She presents as in the Maintenance stage of change relating to her opioid use, as she reports having successfully eliminated opioid abuse through the help of methadone MAT and weekly outpatient counseling. Summary of goals: Provide psychotherapeutic support, cognitive-behavioral and motivational interventions, and psychologically informed recommendations. Anticipated response to treatment: More adaptive coping with medical stressors. Treatment Plan: 1. Provide psychotherapeutic support and resources for community-based mental health services as appropriate. Ish currently indicates that her extant outpatient services as sufficient for meeting her mental health and substance abuse recovery needs and that she will continue accessing these services upon her return to the community. Referral to Addiction Treatment Program is therefore unnecessary at this time. 2. Provide cognitive-behavioral interventions to help Ish adaptively cope with medical-related stressors, anxiety, and pain management. 3. Engage Ish in motivational interviewing to help her sustain her Maintenance level of willingness to treat needs associated with her history of IVDU. Providers may help Ish maintain this motivation by reinforcing the internal rewards or benefits she receives from being clean and further enc ouraging her connections with follow-up supports. 4. Provide strength-based interventions to promote resilience. IVDU Protocol Documentation: 1. Status of Patient Care Agreement: Signed 2. Addiction Treatment Program Assessment Referral: Deemed unnecessary due to pre-existing treatments (MAT and substance use counseling) already in place and being received through [facility] 3. Addiction Treatment Program Assessment: NA 4. Addiction Treatment Program Recommendations: NA 5. Addiction Treatment Program Therapeutic Recommendations: NA 6. Community/Peer Support Referral: NA 7. Therapeutic Treatment Status: Previously engaged in MAT and weekly substance use counseling through [facility]. Ish reports that she will continue these services upon her eventual return to the community. Frequency: 1-2x/week for 20-40 minutes. Expected duration of services: Will continue to follow for the duration of her hospitalization. Chas Gilbert 12/17/2017 15:58 Predoctoral Practicum Student Pager #[phone] I have read and reviewed this note. Clinical supervision will include discussion of this session. I concur with the practicum student's findings and treatment plan. Services provided were routine and within the competence of this practicum student. Harika Madrigal, Ph.D. Licensed Psychologist-Doctorate Clinical Senior Controls Engineer [facility] - 12/17/2017 1322 EDT Pharmacy Note: Aminoglycoside Monitoring Ish Orellana is a 27 y.o. year old female receiving gentamicin 60 mg IV q12 hours for the treatment of endocarditis. Recent Labs 12/16/17 1144 12/17/17 0600 CREATININE 0.90 0.92 BUN 8* -- Lab Results Component Value Date WBC 4.86 12/17/2017 -Gentamicin peak collected??12/17/17 at 1219 = 4 mcg/ml. ??Pharmacokinetic extrapolation estimates the true peak to be 5 mcg/ml. -Gentamicin trough collected 12/17/17 at 0917 = 1 mcg/ml. ??Pharmacokinetic extrapolation estimates the true trough to be 0.5 mcg/ml.? Assessment and Plan: 1. The patient's true peak concentration is above the goal of 3-4 mcg/ml. ??Trough is at the goal of<1 mcg/ml. 2. Recommend decreasing gentamicin dose to 45 mg q12h (done). Discussed with ID and primary team. 3. Pharmacy will recheck peak and trough at new steady state 4. Please monitor creatinine at least every other day while on gentamicin ? Pharmacy will continue to follow ? Sandy Orellana, PharmD Pager #[phone] Isabelle Garcia MD - 12/17/2017 1030 EDT Medicine Progress Note Service Date: 12/17/2017 Admit Date: 12/07/2017 15:08 Reason for Admission: 27 y.o. female admitted with Enterococcus endocarditis. 24 Hour Events: - Possible CT surgery 12/20 - RLE pain -> U/S ordered Subjective/Objective Subjective Patient seen this morning and is anxious about RLE pain. She says it starts at the back of her rightknee and travels down her right calf. She is worried this is due to her endocarditis. Otherwise, patient denies CP, SOB, N/V, fev/chills, abd pain. Patient's rash continues to improve. BM yesterday butwas hard and made me bleed some. Been walking frequently but hasn't this morning due to calf pain.Med psych was consulted via nursing staff yesterday. Review of Systems Pertinent items are noted in Subjective/HPI Objective Vital Signs Temp: [35.6 ??C (96.1 ??F)-36.9 ??C (98.4 ??F)] (), Heart Rate: [66 BPM-89 BPM] (), Resp: [18] (), BP: (94-116)/(66-88) (), SpO2: [95 %-97 %] () Physical Exam General: sitting in chair, NAD, but tearful HEENT: NCAT, MMM, sclera white Lungs: CTABL, no wheezes or crackles Heart: RRR, S1 and S2 normal, 3/6 systolic murmur heard best at USBs Abdomen: soft, NT, BS+ : no garcia Ext: extremities warm, right PICC, no edema, right 4th digit red, tender, swollen; mild R medial calf pain on palpation, but no erythema, induration or swelling Skin: diffuse mostly papular rash arms and legs - mostly faded Neuro: A+Ox3, LAMBERT Mental status: mood anxious Is PICC or central line present? PICC Medications Reviewed: Ativan changed to 1mg BID prn Nicotine inhaler added prn Labs Reviewed: CBC: Recent Labs 12/16/17 1144 12/17/17 0600 WBC 4.89 4.86 RBC 3.36* 3.25* HGB 8.4* 8.1* HCT 27.3* 26.4* MCV 81 81 MCH 25.0* 24.9* MCHC 30.8* 30.7* PLT 254 249 NEUTROABS -- 2.09* BMP: Recent Labs 12/16/17 1144 12/17/17 0600 NA 138 -- K 4.4 -- CL 103 -- CO2 31 -- BUN 8* -- CREATININE 0.90 0.92 MG 2.0 -- Imaging Reviewed: KRISTOPHER: Summary: 1. Left ventricle: The cavity size was mildly dilated. Wall thickness ? was normal. Systolic function was normal. The estimated ejection ? fraction was 60-65%. Wall motion was normal; there were no regional ? wall motion abnormalities. 2. Right ventricle: The cavity size was normal. Wall thickness was ? normal. Systolic function was normal. 3. Mitral valve: Moderate thickening of the anterior leaflet (middle and ? lateral segment(s)). Thickening of the posterior leaflet. There was a ? large, layered, mobile vegetation on the atrial aspect of the ? anterior leaflet that extends into the left ventricle during ? diastole. There was a large, protruding, serpiginous, highly mobile ? vegetation on the atrial aspect of the posterior leaflet. There was ? evidence for a large, mobile phlegmon and soft tissue erosion ? extending from the posterior leaflet annulus to the posterior and ? lateral wall of the left atrium. There was severe regurgitation ? directed eccentrically. 4. Left atrium: No evidence of thrombus in the appendage. The appendage ? was morphologically a left appendage, multilobulated, and of normal ? size. Emptying velocity was normal. 5. Atrial septum: No defect or patent foramen ovale was identified. ? Doppler showed no atrial level shunt, in the baseline state. 6. Line: A venous catheter was visualized in the superior vena cava, ? with its tip in the right atrium. No abnormal features noted. 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 CT surgery consulted, appreciate care. ID consulted, appreciate care. Remains on ampicillin and gentamycin. PICC in place. KRISTOPHER concerning for multiple mitral valve vegetations and severe regurgitation, likely requiring CTS. Possible CT surgery on 12/20. RLE U/S ordered for pain with concern for embolic phenomena. Plan Enterococcal endocarditis: with ongoing embolic phenomenon and severe mitral regurgitation - ID, CT surgery following - ampicillin and gentamycin - negative blood cx 12/11 --> NGTD final - telemetry - gent being adjusted with pharmacy assistance - possible CTS 12/20 - RLE pain: U/S ordered for evaluation. US negative for DVT. Adding robaxin for pain -need dental evaluation prior to surgery Anemia - s/p 2 units RBC this admission, stable. Presumed 2/2 to inflammation/infection. - transfuse to maintain Hgb > 7 - labs q 48 hours unless needed for gent monitoring Rash - benadryl cream for itch HIV - False (+) -> ID informed patient and family of negative results Chronic pain / IVDU - ct [employer] methadone 95 mg PO daily - will likely consult anesthesia pain service tomorrow to assist in OR planning - stool softeners - med psych consultation Anxiety - ativan 1mg po BID prn Tobacco abuse - nicotine inhaler prn Hep C - rec f/u for treatment once endocarditis treated Regular diet DVT ppx - ambulation Estrada Mccarthy MD 10:31 Internal Medicine Service PGY-1 [facility] Attending Attestation I saw and examined the patient. I discussed the patient with Dr. Mccarthy. I agree with and edited (in green) the findings and plan of care as documented in the note above. Isabelle Garcia MD Internal Medicine Hospitalist 12/17/2017 21:14 Tere Chi MD - 12/17/2017 1005 EDT Infectious Disease Consultation Follow Up Note Admit Date: 12/07/2017 Hospital Day: LOS: 10 days Date of Service: 12/17/2017 Followup For: endocarditis Subjective: Reports finger is swollen and red- started yesterday Rash improving Denies cough, no SOB No diarrhea no tinnitus, no vertigo Anti-infectives & Other Pertinent Medications: Gentamicin D#4 Ampicillin D#6 Vital Signs: BP 105/75 (BP Cuff Location: Left arm, Patient Position: Sitting) Pulse 80 Temp 35.8 ??C (96.4 ??F) (Tympanic) Resp 18 Ht 172.7 cm (68) Wt 99.5 kg (219 lb 4.8 oz) Comment: pt weighed with bed scale SpO2 97% BMI 33.34 kg/m2 Exam: Sitting up in bed, appears comforable Diffuse papular rash- she notes is improving Middle finger of right hand with erythema at the distal portion, warmth, Tender Nl S1 +murmur Lungs CTA B No new embolic lesions Data Review: Laboratory data reviewed. Pertinent positives include: WBC/RBC/HGB/HCT/MCH/MCHC/PLT4.86/3.25/8.1/26.4/24.9/30.7/249 (12/17 0600) BC /09/09 enteroccoccus BC 12/11 no growth 12/09 HIV RNA undetected Gent peak 3.4 ECHO 12/15 Summary: ? 1. Left ventricle: The cavity size was mildly dilated. Wall thickness ? was normal. Systolic function was normal. The estimated ejection ? fraction was 60-65%. Wall motion was normal; there were no regional ? wall motion abnormalities. ?? 2. Right ventricle: The cavity size was normal. Wall thickness was ? normal. Systolic function was normal. ?? 3. Mitral valve: Moderate thickening of the anterior leaflet (middle and ? lateral segment(s)). Thickening of the posterior leaflet. There was a ? large, layered, mobile vegetation on the atrial aspect of the ? anterior leaflet that extends into the left ventricle during ? diastole. There was a large, protruding, serpiginous, highly mobile ? vegetation on the atrial aspect of the posterior leaflet. There was ? evidence for a large, mobile phlegmon and soft tissue erosion ? extending from the posterior leaflet annulus to the posterior and ? lateral wall of the left atrium. There was severe regurgitation ? directed eccentrically. ?? 4. Left atrium: No evidence of thrombus in the appendage. The appendage ? was morphologically a left appendage, multilobulated, and of normal ? size. Emptying velocity was normal. ?? 5. Atrial septum: No defect or patent foramen ovale was identified. ? Doppler showed no atrial level shunt, in the baseline state. ?? 6. Line: A venous catheter was visualized in the superior vena cava, ? with its tip in the right atrium. No abnormal features noted. Assessment: 1) Enterococcal endocarditis- on gent and ampicillin- gent doses have been adjusted- most recent peak of 3.4 in therapeutic range- goal 3-4 and a trough of 0.5 Her KRISTOPHER demonstrated large vegetations onher MV and a mobile phelgmon erosion to the lateral wall of the atrium. Plans are for OR on Wednesday 2) HIV Ab + - her HIV RNA was negative 3) Hep C Recommendations: 1) Continue with Ampicillin and Gent 2) Will need to restart her 6 week course following the OR on Wednesday 3) Follow renal function and hearing closely- watch for vertigo or tinnitus- given Gent use 4) We will continue to follow Discussed with primary care team Tere Omalley MD 12/17/2017 10:05 Britany Clarke MD - 12/16/2017 1824 EDT Cardiothoracic Surgery 27yo [place] endocarditis of MV Doing much better today, but did embolize to R middle finger. Mother already left for home. NAD, AAOx3 RRR diastolic murmur Rash on UE & LE resolving KRISTOPHER reviewed A/p endocarditis MV with MR - HD stable. Clearing cultures, but still recent embolic phenomena -meet with family 12/17 when mom returns from work & brings patients s/o -possible OR Wednesday -needs dental clearance Isela Dumont MD Kristina Shaw - 12/16/2017 1403 EDT Spiritual Care Note Re: Ish Orellana : 1990, AGE: 27 y.o. Room: [place] [address] Ish Orellana who is listed as Unknown has received a visit from the Spiritual Care Department on12/16/2017. Need/Assessment: ?? Initial visit with Ish and boyfriend and spoke about SCD services ?? Ish expressed her interest in prayer on day of open heart surgery ?? Ish and boyfriend shared about their relationship and life together ?? Ish appears anxious and worries about her recovery, living arrangements (homeless in past) and money ?? Ish also shared her gratefulness for the support she is receiving Intervention: ?? [employer] Home [employer] Manager provided a supportive, listening presence ?? Created an atmosphere for pt to express her emotional feelings ?? Affirmed her strengths and sense of hopefulness ?? Provided SCD pamphlet with contact information for pt Outcome: ?? Thank you for coming in Plan of Action: No Follow up necessary - Needs met Continued Family Support x Continued Support from Mobile Home Park Manager following patient Make a Referral to: Continued Support with Volunteer Visits Connect with Community Supports Ask for a consult from: Other: Visit Initiated by: Referral by computer or phone message Time: End of Life / Comfort Care / Hospice Page direct contact by pager or staff person Time: 3 Level of Visit Services Provided: Anointing of Sick Prayer Communion Relaxation through music Assist Advanced Directives Integrative therapies Assist Decision Making Childs and Prayer at dying Exploration of Ethical issues Present at time of Family Support Other Chaplain Karthikeyan Russo 131 Phone [phone] Spiritual Care is available 24 hours a day. Office hours are 0800 to 1700 Wednesday through Wednesday and 0830 to 1630 Wednesday and Wednesday. [facility] chaplains are available 24 hours a day. For routine consults please call and leave a message with the Spiritual Care Office ([phone]) and patients will be seen within 24 hours. For all emergent consults page the [facility] or [facility] on-call [facility] Manager through [facility] ([phone]). Isabelle Odom MD - 12/16/2017 0831 EDT Medicine Progress Note Service Date: 12/16/2017 Admit Date: 12/07/2017 15:08 Reason for Admission: 27 y.o. female admitted with Enterococcus endocarditis. 24 Hour Events: - KRISTOPHER done yesterday, very concerning mitral valve findings with multiple vegations Subjective/Objective Subjective Discussed KRISTOPHER results with patient. She is upset about the possibility that a surgery may be recommended. Her boyfriend is bedside and is supportive. Denies CP, SOB, N/V/abd pain. Still has R ring finger pain, anxiety, stress. Moving bowels, urination wnl. Some R calf pain. Ambulating. Review of Systems Pertinent items are noted in Subjective/HPI Objective Vital Signs Temp: [34.9 ??C (94.8 ??F)-36.7 ??C (98.1 ??F)] (), Heart Rate: [68 BPM-92 BPM] (), Resp: [10-25] (), BP: (99-141)/(63-91) (), SpO2: [93 %-100 %] () Physical Exam General: sitting in chair, NAD, but tearful HEENT: NCAT, MMM, sclera white Lungs: CTABL, no wheezes or crackles Heart: RRR, S1 and S2 normal, 3/6 systolic murmur heard best at USBs Abdomen: soft, NT, BS+ : no garcia Ext: extremities warm, right PICC, no edema, right 4th digit red, tender, swollen, mild R medial calf pain, but no erythema, induration or swelling Skin: diffuse mostly papular rash arms and legs - fading slowly each day Neuro: A+Ox3, LAMBERT Mental status: mood anxious Is PICC or central line present? PICC Medications Reviewed: Ativan changed to 1mg BID prn Nicotine inhaler added prn Labs Reviewed: CBC: Recent Labs 12/14/17 0610 12/16/17 1144 WBC 3.38* 4.89 RBC 3.40* 3.36* HGB 8.1* 8.4* HCT 27.1* 27.3* MCV 80* 81 MCH 23.8* 25.0* MCHC 29.9* 30.8* PLT 220 254 BMP: Recent Labs 12/14/17 0610 12/16/17 1144 NA 140 138 K 4.3 4.4 CL 103 103 CO2 30 31 BUN 7* 8* CREATININE 0.83 0.90 MG 1.9 2.0 Imaging Reviewed: KRISTOPHER: Summary: 1. Left ventricle: The cavity size was mildly dilated. Wall thickness ? was normal. Systolic function was normal. The estimated ejection ? fraction was 60-65%. Wall motion was normal; there were no regional ? wall motion abnormalities. 2. Right ventricle: The cavity size was normal. Wall thickness was ? normal. Systolic function was normal. 3. Mitral valve: Moderate thickening of the anterior leaflet (middle and ? lateral segment(s)). Thickening of the posterior leaflet. There was a ? large, layered, mobile vegetation on the atrial aspect of the ? anterior leaflet that extends into the left ventricle during ? diastole. There was a large, protruding, serpiginous, highly mobile ? vegetation on the atrial aspect of the posterior leaflet. There was ? evidence for a large, mobile phlegmon and soft tissue erosion ? extending from the posterior leaflet annulus to the posterior and ? lateral wall of the left atrium. There was severe regurgitation ? directed eccentrically. 4. Left atrium: No evidence of thrombus in the appendage. The appendage ? was morphologically a left appendage, multilobulated, and of normal ? size. Emptying velocity was normal. 5. Atrial septum: No defect or patent foramen ovale was identified. ? Doppler showed no atrial level shunt, in the baseline state. 6. Line: A venous catheter was visualized in the superior vena cava, ? with its tip in the right atrium. No abnormal features noted. 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 CT surgery consulted, appreciate care. ID consulted, appreciate care. Remains on ampicillin and gentamycin. PICC in place. Will likely required CTS. Plan Enterococcal endocarditis: with ongoing embolic phenomenon and severe mitral regurgitation - ID, CT surgery following - ampicillin and gentamycin - negative blood cx 12/11 --> NGTD final - telemetry - gent being adjusted with pharmacy assistance -will likely need surgery Anemia - s/p 2 units RBC this admission, stable. Presumed 2/2 to inflammation/infection. - transfuse to maintain Hgb > 7 - labs q 48 hours unless needed for gent monitoring Rash - benadryl cream for itch HIV - False (+) -> ID informed patient and family of negative results Chronic pain / IVDU - [facility] methadone 95 mg PO daily - will likely consult anesthesia tomorrow to assist in OR planning - stool softeners -med psych consultation Anxiety - ativan 1mg po BID prn Tobacco abuse - nicotine inhaler prn Hep C - rec f/u for treatment once endocarditis treated Regular diet DVT ppx - ambulation Yoana Paul MD 8:31 Attending Attestation I saw and examined the patient with the resident. I discussed the patient with Dr. Paul. I agree with and edited (in green) the findings and plan of care as documented in the note above. I spent 45 minutes in the direct care of this patient, 30 minutes of which was in direct [id number] time. Isabelle Garcia MD Internal Medicine Hospitalist 12/16/2017 18:52 Isabelle Odom MD - 12/15/2017 0848 EDT Medicine Progress Note Service Date: 12/15/2017 Admit Date: 12/07/2017 15:08 Reason for Admission: 27 y.o. 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 She reports feeling tired dueto this. She also endorses poor sleep due to anxiety. Also endorses mild nausea and attributes this to her morning antibiotics. Denies CP, SOB, fev/chills, abd pain. Rash is improving and not itchy/sore with benadryl cream. Walking regularly and BMs/voiding. Last ate at 3am this morning. Review of Systems Pertinent items are noted in Subjective/HPI Objective Vital Signs Temp: [35.2 ??C (95.4 ??F)-36.3 ??C (97.3 ??F)] (), Heart Rate: [69 BPM-89 BPM] (), Resp: [18] (), BP: (113-129)/(70-90) (), SpO2: [98 %-100 %] () Physical Exam General: sitting up in bed, appearing relaxed, in NAD HEENT: NCAT, MMM, EOMI. Lungs: CTABL posteriorly Heart: RRR, S1 and S2 normal, 3/6 systolic murmur heard best at RUSB, no evidence of JVD or LE edema Abdomen: soft, NT, BS+ : no garcia Ext: extremities warm, left AC fossa IV, right PICC, no cyanosis or edema, moving all extremities appropriately, pulses 2+ and symmetric; right 4th digit red, tender, swollen, full flexion/extension and cap refill < 2 sec Skin: diffuse rash on both arms and legs - continues to improve. Temperature and turgor normal. Neuro: A+Ox3. Strength is 5/5 in all extremities. Mental status: mood sleepy, affect anxious, tired. Is PICC or central line present? No, PICC/Central line not present. Medications Reviewed: No changes Labs Reviewed: Results notable for HIV Ab positive but confirmatory test negative, Anemia, lytes and Cr normal. Imaging Reviewed: No new imaging. EKG 12/09 - 1st degree AV block, no ischemic changes EKG 12/10 - NSR; 1st degree AV block no longer present EKG 12/11 - NSR EKG 12/12 - NSR Assessment/Plan Assessment 27F with prior IVDU history on methadone with enterococcal endocarditis with a large mitral valve vegetation resulting in MV regurgitation, anemia and petechial rash. Blood cx x2 drawn 12/11: NGTD but continues to have new arterial embolic events. KRISTOPHER attempting to be schedule for this afternoon. She remains hemodynamically stable. Cotreating with amp and gent. ID and CTS following. Encouraging ambulation. Plan Acute enterococcal endocarditis - ID, CT surg and cardiology consulting - ampicillin and gent - attempting to schedule KRISTOPHER for today - telemetry - concern for continued embolic phenomena to digits Anemia - s/p 2 units RBC earlier in this hospitalization, now stable. Presumed 2/2 to inflammation/infection. - transfuse to maintain Hgb > 7 - labs q 48 hours Rash - benadryl cream for itch HIV - False (+) -> ID informed patient and family of negative results Chronic pain / IVDU - [facility] methadone 95 mg PO daily Hep C - rec f/u for treatment once endocarditis treated Regular diet DVT ppx - ambulate Estrada Mccarthy MD 8:48 Internal Medicine Service PGY-1 [facility] Attending Attestation I saw and examined the patient. I discussed the patient with and Dr. Paul. I agree with and edited (in green) the findings and plan of care as documented in the note above. Isabelle Garcia MD Internal Medicine Hospitalist 12/15/2017 17:14 [facility] 12/15/2017 0749 EDT Pharmacy Note: Aminoglycoside Monitoring Ish Orellana is a 27 y.o. year old female receiving gentamicin 60 mg IV q12 hours for the treatment of endocarditis. Recent Labs 12/14/17 0610 CREATININE 0.83 BUN 7* Lab Results Component Value Date WBC 3.38 (L) 12/14/2017 -Gentamicin peak collected 12/14/17 at 1219 = 3.4 mcg/ml. Pharmacokinetic extrapolation estimates thetrue peak to be 4.3 mcg/ml. -Gentamicin trough collected 12/14/17 at 0917 = 0.5 mcg/ml. Pharmacokinetic extrapolation estimates the true trough to be 0.4 mcg/ml. ?? Assessment and Plan: 1. The patient's peak concentration is just above the goal of 3-4 mcg/ml. Trough is at the goal of <1 mcg/ml. 2. Recommend continuing current regimen of 60 mg q12h. Discussed with ID and primary team. 3. Please monitor creatinine at least every other day while on gentamicin 4. Pharmacy will recheck a trough 12/17/17 or sooner if renal function changes to ensure patient is not accumulating ?? Pharmacy will continue to follow ?? Sandy Orellana PharmRhona Pager #[phone] Tere Chi MD - 12/14/2017 1816 EDT Infectious Disease Consultation Follow Up Note Admit Date: 12/07/2017 Hospital Day: LOS: 7 days Date of Service: 12/14/2017 Followup For: endocarditis 24 Hour Events: New left middle finger pain Subjective: Reports finger is swollen and red- started yesterday Rash improving Denies cough, no SOB No diarrhea Gent dose adjusted- no tinnitus, no changes in Hearing, no vertigo Anti-infectives & Other Pertinent Medications: Gentamicin D#4 Ampicillin D#6 Vital Signs: BP 129/85 (BP Cuff Location: Left arm, Patient Position: Sitting) Pulse 96 Temp (!)35.2 ??C (95.4 ??F) (Tympanic) Resp 18 Ht 172.7 cm (68) Wt 95.3 kg (210 lb) SpO2 99% BMI 31.93 kg/m2 Exam: Sitting up in bed, appears comforable Diffuse papular rash- she notes is improving Middle finger of right hand with erythema at the distal portion, warmth, Tender Nl S1 +murmur Lungs CTA B Data Review: Laboratory data reviewed. Pertinent positives include: WBC/RBC/HGB/HCT/MCH/MCHC/PLT3.38/3.40/8.1/27.1/23.8/29.9/220 (12/14 0610) BC 4/5 09/09 enteroccoccus BC 12/11 pending 12/09 HIV RNA undetected Gent peak 3.4 Assessment: 1) Enterococcal endocarditis- on gent and ampicillin- gent doses have been adjusted- most recent peak of 3.4 in therapeutic range- goal 3-4. I am concerned about her finger and would question new embolic lesion and would involve CT surgery- as continued embolic lesions would be a consideration for surgery. The finger is painful - ?emla cream or lidocaine patch to try 2) HIV Ab + - her HIV RNA was negative 3) Hep C Recommendations: 1) Agree with KRISTOPHER 2) Would let CT surgery know regarding new embolic lesion 3) Continue Gentamicin- goal peak 3-4- would continue at current dose 4) Continue Ampicillin 5) Would follow renal function closely as well as any evidence of otoxicity- tinnitus, vertigo- given her GENT use Discussed with primary care team Tere Omalley MD 12/14/2017 16:16 Isabelle Odom MD - 12/14/2017 0850 EDT Medicine Progress Note Service Date: 12/14/2017 Admit Date: 12/07/2017 15:08 Reason for Admission: 27 y.o. female admitted with Enterococcus endocarditis, hep C (untreated), chronic pain, tobacco abuse 24 Hour Events: - Blood cx x2 12/11 NGTD - Seen o/n for acute RUE 4th digit pain - Gent dose adjusted by pharmacy Subjective/Objective Subjective Patient seen this morning and reports sleeping poorly last night. Attributes this to acute pain of her 4th digit of her right hand--states she was seen overnight for this and was reassured and given anxiolytic medications. Feels the pain and anxiety surrounding the finger is improved this morning. Understands it is related to her heart infection and the basic pathophysiology is discussed. Patient otherwise denies CP, SOB, N/V, fev/chills. She does report mild lower abdominal cramping andattributes this to the start of her period. Had a BM yesterday. Endorses walking frequently. Rash on leg subjectively improving, but slowly she feels. Feels more nauseated today. Review of Systems Pertinent items are noted in Subjective/HPI Objective Vital Signs Temp: [36.1 ??C (97 ??F)-36.5 ??C (97.7 ??F)] (), Heart Rate: [71 BPM-91 BPM] (), Resp: [16-18] (), BP: (118-133)/(79-95) (), SpO2: [97 %-100 %] () Physical Exam General: sitting up in bed, appearing relaxed, in NAD HEENT: NCAT, MMM, EOMI. Lungs: CTABL Heart: RRR, S1 and S2 normal, 3/6 systolic murmur heard best at RUSB, no evidence of JVD or LE edema Abdomen: soft, NT, BS+ : no garcia Ext: extremities warm, left AC fossa IV, right PICC, no cyanosis or edema, moving all extremities appropriately, pulses 2+ and symmetric; right 4th digit red, tender, swollen, full flexion/extension and cap refill < 2 sec Skin: diffuse rash on both arms and legs - improved from yesterday. Temperature and turgor normal. Neuro: A+Ox3. Strength is 5/5 in all extremities. Mental status: mood better, affect anxious. Is PICC or central line present? No, PICC/Central line not present. Medications Reviewed: No changes Labs Reviewed: Results notable for HIV Ab positive but confirmatory test negative, Anemia, lytes and Cr normal. Imaging Reviewed: No new imaging. EKG 12/09 - 1st degree AV block, no ischemic changes EKG 12/10 - NSR; 1st degree AV block no longer present EKG 12/11 - NSR EKG 12/12 - NSR Assessment/Plan Assessment 27F with prior IVDU history on methadone with enterococcal endocarditis with a large mitral valve vegetation resulting in MV regurgitation, anemia and petechial rash. blood cx x2 drawn 12/11: NGTD but continues to have new arterial embolic events. Will revisit need for KRISTOPHER and schedule anesthesia if appr opriate. She remains hemodynamically stable. CoTreating with amp and gent. ID and CTS following. Encouraging ambulation. Plan Acute enterococcal endocarditis - ID, CT surg and cardiology consulting - ampicillin and gent - will revisit need for KRISTOPHER, schedule if appropriate. Will try to arrange for tomorrow. - telemetry - d/c daily EKG - concern for continued embolic phenomena to digits Anemia - s/p 2 units RBC, stable. Presumed 2/2 to inflammation/infection. - transfuse to maintain Hgb > 7 - labs q 48 hours Rash - benadryl cream for itch HIV - False (+) -> ID informed patient and family of negative results Chronic pain / IVDU - [facility] methadone 95 mg PO daily Hep C - rec f/u for treatment once endocarditis treated Regular diet DVT ppx - ambulate Estrada Mccarthy MD 8:50 Internal Medicine Service PGY-1 [facility] Attending Attestation I saw and examined the patient with the resident. I discussed the patient with Dr. Solorzano and Dr. Paul. I agree with and edited (in green) the findings and plan of care as documented in the noteabove. Isabelle Garcia MD Internal Medicine Hospitalist 12/14/2017 21:33 Sandy Nicholas [facility] - 12/13/2017 1711 EDT Pharmacy Note: Aminoglycoside Monitoring Ish Orellana is a 27 y.o. year old female receiving gentamicin 35 mg IV q8 hours for the treatment of endocarditis. 24 hour vitals and labs: Recent Labs 12/11/17 0620 12/12/17 0619 CREATININE 0.62 0.76 BUN 6* 5* Lab Results Component Value Date WBC 3.72 (L) 12/12/2017 -Gentamicin peak collected 12/13/17 at 1424 = 2 mcg/ml. Pharmacokinetic extrapolation estimates the true peak to be 2.3 mcg/ml. -Gentamicin trough collected 12/13/17 at 1257 = 0.7 mcg/ml. Pharmacokinetic extrapolation estimates the true trough to be 0.7 mcg/ml. Assessment and Plan: 1. The patient's peak concentration is below the goal of 3-4 mcg/ml. Trough is at the goal of <1 mcg/ml. 2. Recommend changing regimen to gentamicin 60 mg q12h starting at 2100 tonight to avoid dosing in the middle of the night (patient's level at that time point is estimated to be ~0.8 mcg/ml) 3. Please monitor creatinine daily for optimization of drug level assessment 4. Pharmacy will repeat peak/trough at new steady state 5. Discussed with Dr. Omalley (ID) and Dr. Paul (primary) Pharmacy will continue to follow Sandy Orellana PharmD Pager #[phone] Isabelle Odom MD - 12/13/2017 0911 EDT Medicine Progress Note Service Date: 12/13/2017 Admit Date: 12/07/2017 15:08 Reason for Admission: 27 y.o. female admitted with Enterococcus endocarditis, hep C (untreated), chronic pain, tobacco abuse 24 Hour Events: - Blood cx x2 12/11 NGTD - Fluconazole given o/n for vaginal candidiasiss Subjective/Objective Subjective Patient slept poorly overnight. Got fluconazole for vaginal candidiasis o/n despite no exam- states she had vaginal itching and discharge similar to prior yeast infections and it has already improved. Right second digit hurt earlier, felt pressured, some relief with ice. Complaining of new swelling and pain in her 4th digit of right hand which started last night.She has had similar swelling in her other digits over the last couple of weeks which have gotten better. Denies CP, SOB, V, fev/chills, abdpain. Rash on legs improving. Some nausea during administration of abx. Appetite is improved. Walking frequently. Did have a spell in the shower where she felt weak, shaky, had to be escorted out to her bed by her boyfriend yesterday which improved after several minutes on its own and has not returned. Blood sugars were unremarkable at the time. Review of Systems Pertinent items are noted in Subjective/HPI Objective Vital Signs Temp: [35.6 ??C (96.1 ??F)-37.5 ??C (99.5 ??F)] (), Heart Rate: [87 BPM-107 BPM] (), Resp: [16-18] (), BP: (116-131)/(79-97) (), SpO2: [97 %-99 %] () Physical Exam General: sitting up in bed, appearing anxious, in NAD HEENT: NCAT, MMM, EOMI. Lungs: CTABL Heart: RRR, S1 and S2 normal, 3/6 systolic murmur heard best at RUSB, no evidence of JVD or LE edema Abdomen: soft, NT, BS+ : no garcia Ext: extremities warm, left AC fossa IV, right PICC, no cyanosis or edema, moving all extremities appropriately, pulses 2+ and symmetric; right 2nd digit mildly red, swollen, full flexion/extension andcap refill < 2 sec Skin: diffuse rash on both arms and legs - improved from yesterday, juliana on legs, temperature and turgor normal. Neuro: A+Ox3. Strength is 5/5 in all extremities. Mental status: mood good, affect anxious. Is PICC or central line present? No, PICC/Central line not present. Medications Reviewed: No changes Labs Reviewed: Results notable for HIV Ab positive but confirmatory test negative, Anemia, lytes and Cr normal. Imaging Reviewed: No new imaging. EKG 12/09 - 1st degree AV block, no ischemic changes EKG 12/10 - NSR; 1st degree AV block no longer present EKG 12/11 - NSR EKG 12/12 - NSR Assessment/Plan Assessment 27F with prior IVDU history on methadone with enterococcal endocarditis with a large mitral valve vegetation resulting in MV regurgitation, anemia and petechial rash. She has poor peripheral access making blood draws and access for IV antibiotics challenging and prompting early PICC placement. PICC placed 12/11. Blood cx 12/09 grew GPC @42h, so blood cx x2 drawn 12/11: NGTD. Will revisit need for KRISTOPHER and schedule anesthesia if appropriate. She remains hemodynamically stable. D/c daily EKG as NSR last 3 days. Treating with amp and gent. ID and CTS following. Encouraging ambulation. Plan Acute enterococcal endocarditis - ID, CT surg and cardiology consulting - ampicillin and gent - will revisit need for KRISTOPHER, schedule if appropriate - telemetry - d/c daily EKG -concern for continued embolic phenomena to digits Anemia - s/p 2 units RBC, stable. Presumed 2/2 to inflammation.infection. - transfuse to maintain Hgb > 7 -labs q 48 hours Rash - benadryl cream for itch HIV - False (+) -> ID informed patient and family of negative results Chronic pain / IVDU - [facility] methadone 95 mg PO daily Hep C - rec f/u for treatment once endocarditis treated Regular diet DVT ppx - ambulate Estrada Mccarthy MD 9:11 Internal Medicine Service PGY-1 [facility] Attending Attestation I saw and examined the patient. I discussed the patient with Dr. Mccarthy and Dr. Paul. I agreewith and edited (in green) the findings and plan of care as documented in the note above. Isabelle Garcia MD Internal Medicine Hospitalist 12/13/2017 20:55 Anitha Giron, [facility] - 12/12/2017 1527 EDT Pharmacy Note: Aminoglycoside Monitoring Ish Orellana is a 27 y.o. year old female receiving 80 mg IV q 8hrs hours for the treatment of Enterococcus endocarditis 24 hour vitals and labs: Temp (24hrs), Av.7 ??C (98 ??F), Min:36.5 ??C (97.7 ??F), Max:36.8 ??C (98.2 ??F) Recent Labs 12/10/17 0719 12/11/17 0620 12/12/17 0619 CREATININE 0.61 0.62 0.76 BUN 8* 6* 5* Lab Results Component Value Date WBC 3.72 (L) 12/12/2017 12/12/2017 peak and trough levels collected around the 4th dose at 1300. The reported peak and trough levels are 6.2 mcg/ml and 1.2 mcg/ml. By pharmacokinetic extrapolation, the patient's actual peak andtrough levels are 8 mcg/ml and 1 mcg/ml, respectively. The patient is supratherapeutic. Assessment and Plan: 1. In order to minimize the potential for aminoglycoside toxicity, trough levels of approximately 0.5 mcg/ml are preferred. 2. In order to maximize the potential for aminoglycoside efficacy, peak levels of approximately 3-4 mcg/ml are preferred. 3. Recommend decreasing gentamicin dose to 35 mg q 8 hours for a predicted peak and trough of 3.5 mcg/ml and 0.4 mcg/ml 4. Monitoring of the serum creatinine should be continued at least every other day while the patientremains on gentamicin. Pharmacy will order levels when appropriate. 5. Discussed with Dr Yoana Paul Pharmacy will continue to follow. Thank you. Anitha Chauhan [facility] Pager #[phone] Gerald Judd MD - 12/12/2017 1233 EDT Medicine Progress Note Service Date: 12/12/2017 Admit Date: 12/07/2017 15:08 Reason for Admission: 27 y.o. female admitted with Enterococcus endocarditis, hep C (untreated), chronic pain, tobacco abuse 24 Hour Events: - PICC placed - Gent started - Blood cx x2 12/11 NGTD - EKG NSR Subjective/Objective Subjective Patient slept well overnight and denies CP, SOB, N/V, fev/chills, and abd pain. Had a BM yesterday. Rash is improving although still sore. Patient understands the importance of ambulating frequently and will do so. Review of Systems Pertinent items are noted in Subjective/HPI Objective Vital Signs Temp: [36.4 ??C (97.5 ??F)-36.8 ??C (98.2 ??F)] (), Heart Rate: [62 BPM-107 BPM] (), Resp: [14-16] (), BP: (98-133)/(68-85) (), SpO2: [96 %-99 %] () Physical Exam General: sitting up in bed in NAD HEENT: NCAT, MMM, EOMI. Lungs: CTABL Heart: RRR, S1 and S2 normal, 3/6 systolic murmur Abdomen: soft, NT, BS+ : no garcia Ext: extremities warm, left AC fossa IV, right PICC, no cyanosis or edema, moving all extremities appropriately, pulses 2+ and symmetric Skin: diffuse rash on both arms - improved from yesterday, temperature and turgor normal. Neuro: A+Ox3. Strength is 5/5 in all extremities. Mental status: mood good, affect anxious. Is PICC or central line present? No, PICC/Central line not present. Medications Reviewed: No changes Labs Reviewed: Results notable for HIV Ab positive but confirmatory test negative, Anemia, lytes and Cr normal. Imaging Reviewed: No new imaging. EKG 12/09 - 1st degree AV block, no ischemic changes EKG 12/10 - NSR; 1st degree AV block no longer present EKG 12/11 - NSR EKG 12/12 - NSR Assessment/Plan Assessment 27F with prior IVDU history on methadone with enterococcal endocarditis with a large mitral valve vegetation resulting in MV regurgitation, anemia and petechial rash. She has poor peripheral access making blood draws and access for IV antibiotics challenging and prompting early PICC placement. PICC placed 12/11. Blood cx / grew GPC @42h, so blood cx x2 drawn 12/11. KRISTOPHER pending as will require anesthesia. She remains hemodynamically stable. Daily EKG - NSR. Treating with amp and gent. ID and CTS following. Plan Acute enterococcal endocarditis - ID, CT surg and cardiology consulting - ampicillin and gent - will further discuss timing and coordination with anesthesia for KRISTOPHER - telemetry - daily EKG until blood cultures sterile Anemia - s/p 2 units RBC - transfuse to maintain Hgb > 7 Rash - benadryl cream for itch HIV - False (+) -> ID informed patient and family of negative results Chronic pain / IVDU - ct [employer] methadone 95 mg PO daily Hep C - rec f/u for treatment once endocarditis treated Regular diet DVT ppx - ambulate Estrada Mccarthy MD 12:33 Internal Medicine Service PGY-1 [facility] Attending Attestation: I have interviewed and examined the patient. I have personally reviewed the medication list. I have independently reviewed the lab results I have discussed the case with the resident and agree with the findings and plan of care above. Any additions in blue. Date of service: 12/12/2017 Gerald Castro MD . [facility] - 12/11/2017 0950 EDT Medicine Progress Note Service Date: 12/11/2017 Admit Date: 12/07/2017 15:08 Reason for Admission: 27 y.o. female admitted with Enterococcus endocarditis, hep C (untreated), chronic pain, tobacco abuse 24 Hour Events: - HIV confirmation test (-) - 12/09 blood cx (+) @ 42 hr for GPC Subjective/Objective Subjective Patient slept poorly last night due to arm soreness. Denies CP, SOB, N/V, fev/chills, abd pain. Regular BMs. Arm and leg rash unchanged from yesterday. During interview RN notes that PICC team heading up to place PICC line. O/n patient had (+) BC from 12/09 showing Gram (+) cocci. Review of Systems Pertinent items are noted in Subjective/HPI Objective Vital Signs Temp: [36.4 ??C (97.5 ??F)] (), Heart Rate: [71 BPM-98 BPM] (), Resp: [16-18] (), BP: (107-132)/(73-93) (), SpO2: [97 %-100 %] () Physical Exam General: laying in bed in NAD HEENT: NCAT, MMM, EOMI. Lungs: CTABL Heart: RRR, S1 and S2 normal, 2/6 systolic murmur Abdomen: soft, NT, BS+ : no garcia Ext: extremities warm, left AC fossa IV, no cyanosis or edema, moving all extremities appropriately,pulses 2+ and symmetric Skin: diffuse rash on both arms, temperature and turgor normal. Neuro: A+Ox3. Strength is 5/5 in all extremities. Mental status: mood fine, affect restricted, congruent. Is PICC or central line present? No, PICC/Central line not present. Medications Reviewed: No changes Labs Reviewed: Results notable for HIV Ab positive, Anemia, lytes and Cr normal. Imaging Reviewed: No new imaging. 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 She has poor peripheral access making blood draws and access for IV antibiotics challenging and prompting early PICC placement. Requires anesthesia for KRISOTPHER. HIV ab test (+) but confirmatory testing (-). Patient informed by ID. She remains hemodynamically stable. Daily EKG. PICC placed today. Starting gentamicin per ID. Blood cx x2 as / cx grew Gram (+) cocci. Plan Acute enterococcal endocarditis - ID, CT surg and cardiology consulting - ampicillin and gent - will further discuss timing and coordination with anesthesia for KRISTOPHER - telemetry - daily EKG until blood cultures sterile Anemia - s/p 2 units RBC - transfuse to maintain Hgb > 7 Rash - benadryl cream for itch HIV - False (+) -> ID informed patient and family of negative results Chronic pain / IVDU - ct [employer] methadone 95 mg PO daily Hep C - rec f/u for treatment once endocarditis treated Regular diet DVT ppx - ambulate Estrada Mccarthy MD 9:50 Internal Medicine Service PGY-1 [facility] Attending Attestation: I have interviewed and examined the patient. PICC line in place, it was uncomfortable - she said thelidocaine didn't help prevent her from feeling everything. I have personally reviewed the medication list. I have independently reviewed the lab results and EKG. GA interval about the same. Will cont to monitor for new abnormalities until blood cultures sterile. Repeat cultures today. I have discussed the case with the resident and agree with the findings and plan of care above. Any additions in blue. She has met with Dr Qureshi closer to home to begin treatment for her Hep C. Advised she follow up with him after her endocarditis has been treated. Date of service: 12/11/2017 Gerald Castro MD Kandi Arriola, MINDA - 12/11/2017 0759 EDT Patient with positive blood cultures drawn on 12/09/17 at 10[address] OK to [address] PICC line per Dr Marcellus MAHAJAN MD regardless of positive cultures. Carrie Quevedo MD - 12/10/2017 8307 EDT Infectious Disease Consultation Follow Up Note Admit Date: 12/07/2017 Hospital Day: LOS: 3 days Date of Service: 12/10/2017 Followup For: Enterococcus endocarditis 24 Hour Events: ERAN Subjective: Ish is feeling a bit better this morning. Thrilled that HIV testing was false positive. Denies cough or shortness of breath. Denies fever and chills. Had benadryl last night and thinksrash is drying up. Ish reports that prior to admission she would have painful red lumps come and go on her hands. Anti-infectives & Other Pertinent Medications: Vancomycin 4/2 - 12/09 Cefepime 4/2 - 12/08 Ampicillin 4/5 - present Vital Signs: BP 108/73 Pulse 96 Temp 36.2 ??C (97.2 ??F) (Tympanic) Resp 16 Ht 172.7 cm (68) Wt 100.5 kg (221 lb 8 oz) Comment: bed SpO2 97% BMI 33.68 kg/m2 Exam: Sitting up in bed, much more pleasant today Nc, AT, EOMI, anicteric sclera, no thrush RRR +murmur CTAB, no crackles Soft abdomen Diffuse petechial rash on arms and legs, some areas have coalesced No janeway lesions or osler's nodes, no splinter hemorrhages Data Review: Laboratory data reviewed. Pertinent positives include: Labs: WBC 4.29 Hb 9 Plt 161 Cr 0.61 Microbiology: @[facility] 12/06/17 BC: Enterococcus faecalis @[facility] 12/09/17 BC: no growth 12/08/17 HIV Ab postive Confirmatory HIV testing at [place] NEGATIVE HIV VL UNDETECTABLE Assessment: 1. Enterococcal bacteremia and MV endocarditis: Repeat blood cultures pending. Therapy changed to ampicillin 2g IV q 4 hours. When picc line is placed, ok to start gentamicin 80mg IV q 8 hours 2. False positive HIV testing. Patient does not have HIV. 3. Chronic hepatitis C virus infection - will complete treatment after treatment for endocarditis 4. Hx of IVDU Recommendations: Continue ampicillin 2g IV q 4 hours Start gentamicin 80mg IV q 8 hours when picc line is placed Goal peak 3-4, goal trough <1 Daily creatinine Daily EKG Would discuss with CT surgery about timing of KRISTOPHER as it will need to be scheduled with anesthesia Discussed with primary care team Carrie Parrish MD 12/10/2017 17:47 DiArlin umana - 12/10/2017 1401 EDT Nutrition S: Pt reports her appetiet is good. Generally eats three meals/day, bf is eggs or bagel or cereal, lunch is usually a sandwich, dinner is chicken or pasta, doesn't like beef or pork. Per family, loves salad, fresh fruit and most veggies. Pt reports she lost my appetite for awhile, but now I'm eating again. States she lost ~25# over a few months, but I needed it, I gained a lot of wgt with the methodone. O: Diet Rx: Regular Meds: bisacodyl Labs: Hgb/Hct:9.0/29.4 (12/10 718) Na/K/Cl/CO2/Gluc/M/4.7/109/26/79/1.9 (12/08 0558-12/10 718) Blood Glucose (Lab Resulted): -- BUN/Cr/Phos/AlkPhos/Ca/CalcCa/TG/CRP:8/0.61/3.9/--/7.9/9.3/--/-- (12/07 1549- 12/10 718) Conj Bili/Unconj Bili:0.0/1.1 (12/07 154) Wt Readings from Last 5 Encounters: 12/10/17 100.5 kg (221 lb 8 oz) 05/28/11 65.7 kg (144 lb 12.8 oz) Body mass index is 33.68 kg/(m^2). A: 27 yo female admitted with endocarditis, mitral regurgitation. Pt screened 2/2 reports of wgt loss. Pt endorses moderate wgt loss 2/2 decreased appetite but feels wgt loss was appropriate. States she's eating fine now and has no questions/concerns re: food/nutrition. Reviewed importance of good nutrition, encouraged protein and produce to support healing, pt verbalized understanding. Labs noted, H/H, MCV low, consider checking Fe studies. At risk for vitamin D deficiency given season, obesity, poor dietary sources, suggest empiric supplement and check level. Plan: Continue diet Suggest check Fe studies with next labs Please add vitamin D 1000 units daily, consider checking level Encourage good PO Monitor intake, wgt, labs, skin, bowels RD following Arlin Linton MS, RD Pager [phone] Gerald Castro MD - 12/10/2017 1002 EDT Medicine Progress Note Service Date: 12/10/2017 Admit Date: 12/07/2017 15:08 Reason for Admission: 27 y.o. female admitted with Enterococcus endocarditis, hep C (untreated), chronic pain, tobacco abuse 24 Hour Events: - no acute events o/n - awaiting HIV confirmation test - KRISTOPHER delayed for now Subjective/Objective Subjective Feels not great and I want to go home, but understands the importance of treatment and staying. Denies CP, SOB, N/V, abd pain. Regular BMs and voiding wnl. Rash unchanged, not itchy after qHS benadryl. Understands KRISTOPHER will occur later under general anesthesia. Waiting to hear back about HIV confirmation test but needs mother to be present. Anticipating eventual PICC line and ok with it. Review of Systems Pertinent items are noted in Subjective/HPI Objective Vital Signs Temp: [34.7 ??C (94.5 ??F)-36.4 ??C (97.5 ??F)] (), Heart Rate: [66 BPM-99 BPM] (), Resp: [16-18] (), BP: (100-116)/(69-89) (), SpO2: [96 %-99 %] () Physical Exam General: laying in bed in NAD HEENT: NCAT, MMM, EOMI. Lungs: CTABL Heart: RRR, S1 and S2 normal, 2/6 systolic murmur Abdomen: soft, NT, BS+ : no garcia Ext: extremities warm, left AC fossa IV, no cyanosis or edema, moving all extremities appropriately,pulses 2+ and symmetric Skin: diffuse rash on both arms, temperature and turgor normal. Neuro: A+Ox3. Strength is 5/5 in all extremities. Mental status: mood not great, affect dysphoric, congruent. Is PICC or central line present? No, PICC/Central line not present. Medications Reviewed: No changes Labs Reviewed: Results notable for HIV Ab positive, Anemia, lytes and Cr normal. Imaging Reviewed: No new imaging. 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 She has a poor access making blooddraws and access for IV antibiotics challenging and prompting early PICC placement. She has a positive HIV Ab test with a confirmatory test in progress. She remains hemodynamically stable. Requires anesthesia for KRISTOPHER. Plan Acute enterococcal endocarditis - ID, CT surg and cardiology consulting - ampicillin and gent (gent only once PICC is in) - will further discuss timing and coordination with anesthesia for KRISTOPHER - telemetry - daily EKG until blood cultures sterile Anemia - s/p 2 units RBC - transfuse to maintain Hgb > 7 Rash - benadryl cream for itch HIV positive Ab - confirmation in progress -- ID to inform patient and family of result Chronic pain / IVDU - ct [employer] methadone 95 mg PO daily Hep C - rec f/u for treatment once endocarditis treated Regular diet DVT ppx - ambulate Estrada Mccarthy MD 10:03 Internal Medicine Service PGY-1 [facility] Attending Attestation: I have interviewed and examined the patient. Still has itching on her skin from rash. Relieved to learn HIV negative. Waiting for PICC team to arrive for PICC placement. I have personally reviewed the medication list. I have independently reviewed the lab results. D/w ID. I have discussed the case with the resident and agree with the findings and plan of care above. Any additions in blue. Date of service: 12/10/2017 Gerald Castro MD Gerald Judd MD - 12/09/2017 1727 EDT Medicine Progress Note Service Date: 12/09/2017 Admit Date: 12/07/2017 15:08 Reason for Admission: 27 y.o. female admitted with Enterococcus endocarditis, hep C (untreated), chronic pain, tobacco abuse 24 Hour Events: HIV Ab test positive Subjective/Objective Subjective Doing OK, no fever, SOB, CP, ABD pain. No bowel or bladder complaints. No vision changes - asks if she has a stye because her left eye is sore - she thinks it is from crying last night. Rash not worse,still itches sometimes. Eating OK. Wants to go out for a smoke. Did not tolerate the KRISTOPHER this morning. Asks about when her HIV confirmation test will be back. Understands rationale for a PICC line and is OK with the procedure. Aware that given her poor access and the need for PICC that there is a higher than normal chance it could be infected and needs to be replaced. All questions addressed. Review of Systems Pertinent items are noted in Subjective/HPI Objective Vital Signs Temp: [35.5 ??C (95.9 ??F)-36.8 ??C (98.2 ??F)] (), Heart Rate: [77 BPM-99 BPM] (), Resp: [18] (), BP: (100-148)/(69-91) (), SpO2: [93 %-98 %] () Physical Exam NAD Fully alert and oriented Eyes moist, no icterus, no eyelid lesions or conjunctival erythema. Lungs clear No edema Diffuse rash on both arms Left AC fossa IV No garcia Able to move all limbs purposefully, ambulatory, no facial asymmetry Is PICC or central line present? No, PICC/Central line not present. Medications Reviewed: No changes Labs Reviewed: Results notable for HIV Ab positive, Anemia, lytes and Cr normal. Imaging Reviewed: No new imaging. 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 She has a poor access making blooddraws and access for IV antibiotics challenging and prompting early PICC placement. She has a positive HIV Ab test with a confirmatory test in progress. She remains hemodynamically stable. Plan # Acute enterococcal endocarditis (ID, CT surg and cardiology consulting) - discontinuing vanc per ID - starting ampicillin and gent (gent only once PICC is in) - will further discuss timing and coordination with anesthesia for KRISTOPHER - telemetry - daily EKG until blood cultures sterile # Anemia - s/p 2 units RBC - transfuse to maintain Hgb > 7 # Rash - benadryl cream for itch # HIV positive Ab - confirmation in progress - expected to result tomorrow - ID to inform patient and family of result # Chronic pain / IVDU - cont home methadone 95 mg PO daily # Hep C - Would recommend follow up for treatment once endocarditis treated # Regular diet # DVT ppx - ambulate Discussed with ID, family updated bedside, all questions addressed. I spent a total of 35 minutes in direct floor time dedicated solely to this patient and 20 minutes of that time was spent in discussion with the patient about the risks and treatment options for endocarditis, rash, HIV testing that is in progress, rationale for PICC line and its possible complications. Gerald Castro MD 12/09/2017 17:27 Michelle Granado RN - 12/09/2017 1601 EDT Patient moved out of MICU to . Multiple attempts to meet with she and her Mother to answer questions. No visitors in Room; patient sleeping. Will follow up tomorrow. uciana Wyatt RN - 12/09/2017 0948 EDT Pt came down for KRISTOPHER, but was unable to tolerate the oral lidocaine gel used to numb back of throat.She is also adamant that she wants to do the procedure with general anesthesia. Report called to .Pt transported back to with Pt Support and RN. Qiana Mejias, [facility] - 12/08/2017 2133 EDT Pharmacy Note: Vancomycin Monitoring Ish Orellana is a 27 y.o. female receiving Vancomycin 1500 mg IV Q12H for the treatment of endocarditis. 24 hour vitals and labs: Temp (24hrs), Av.2 ??C (97.1 ??F), Min:35.6 ??C (96.1 ??F), Max:36.8 ??C (98.2 ??F) Recent Labs 12/07/17 1549 12/08/17 0558 CREATININE 0.65 0.67 BUN 6* 6* Lab Results Component Value Date WBC 4.62 12/07/2017 Vancomycin random/trough level drawn prior to the 4th dose on 12/08 @ 0558 = 49.0 mcg/ml (added to AM labs) Vancomycin trough level drawn prior to the 5th dose on 12/08 @ 2049 = 12.8 mcg/ml Assessment and Plan: 1). Vancomycin level from this morning w/ AM labs resulted very high which I was not expecting. I asked the lab to re-run results which yielded the same concentration. My thought is that the line may have not been thoroughly flushed as it was not originally intended to sample vancomycin. I asked the evening RN to hold the evening vancomycin dose pending the trough level that was drawn tonight. This trough level is within the reference range (reference range 10-20 mcg/ml). Spoke w/ RN again to let her know it was OK to give dose. 2). Would recommend to continue current vancomycin regimen of 1500mg IV Q12H for now. Level is slightly below 15 but would opt to continue current regimen until a true trough can be determined. 3). Continue to monitor renal function, CBC, In/Out, Tm 4). I have ordered a subsequent trough level prior to the morning dose of vancomycin to confirm steady state with appropriate timing just before the dose. Pharmacy will continue to follow Thanks, Qiana Mejias, Pharm.D. Pager #[phone] Carrie Quevedo MD - 12/08/2017 7579 EDT Notified by primary team that HIV Ab test is positive. I discussed test results with Ish. Discussed that HIV test is positive, but would consider these preliminary results and confirmatory test has been sent to [facility]. Ish appropriately tearful and distressed. Discussed briefly that HIV diagnosis should not impact her life expectancy. Will discuss further with confirmatory test results. Ish states she was last tested 3-4 years ago at the [facility]3] in [facility]. Ish asked me not to be present when she told her mother and boyfriend, Alex. Ish gave permission for me to speak with her mother. Gave same information to mother. Please send HIV VL (quantitative RNA) and immunodeficiency panel (CD4 count) with next blood draw. Ok to discontinue cefepime. Carrie Parrish MD 12/08/2017 18:34 Carrie Quevedo MD - 12/08/2017 1139 EDT Infectious Disease Consultation Follow Up Note Admit Date: 12/07/2017 Hospital Day: LOS: 1 day Date of Service: 12/08/2017 Followup For: endocarditis 24 Hour Events: ERAN, declined CT surgery consult Subjective: reports feeling awful. States rash on legs is improving, but rash on arms is worse and itchy. Denies fever, chills. Had sweats overnight. Denies shortness of breath or cough. Denies chest pain, nausea, vomiting, diarrhea. Anti-infectives & Other Pertinent Medications: Vancomycin 4/2 - Cefepime 12/06 - Vital Signs: BP 106/68 Temp 36.1 ??C (97 ??F) (Tympanic) Resp 15 Ht 172.7 cm (68) Wt 97 kg (213 lb 13.5 oz) SpO2 99% BMI 32.52 kg/m2 Exam: Sitting up in bed, disgruntled NC, AT, EOMI, anicteric sclera, no thrush RRR 2/6 systolic murmur Crackles in bilateral bases Soft abdomen Diffuse petechial rash on bilateral arms and legs Data Review: Laboratory data reviewed. Pertinent positives include: Labs: no new labs Microbiology: @ [facility] 12/06/17 BC: enterococcus - I personally called the [facility] lab on 12/08/17 at 10am - prelim enterococcus, full ID and susceptibility will be ready on 12/09 Assessment: 1. Enterococcus bacteremia and endocarditis (10mm x 12mm vegetation on MV): Had lengthy discussion with Ms. Orellana that she would benefit from discussion with CT surgeons to learn about surgical optionsand their thoughts on need for valve replacement. Discuss that surgery is not always necessary but can be indicated. Discussed that regardless of surgery, will need at least 6-8 weeks of IV antibiotics. Discussed that blood cultures will need to be drawn every few days to ensure bacteremia is clearing. 2. Petechial rash - likely from endocarditis 3. Hx of IVDU 4. Poor dentition 5. Chronic hepatitis C virus infection - further workup as an outpatient. HCV VL pending at [facility]. Recommendations: Continue vancomycin 15mg/kg IV q 12 hours If IV access becomes an issue, then give daptomycin 10mg/kg IV q 24 hours Anticipate changing antibiotic therapy on 12/09/17 when full ID of enterococcus is known (either change to ampicillin or daptomycin). No need to repeat blood cultures today - will wait until antibiotic plan is determined tomorrow. Consult CT surgery - Ms. Orellana is amenable to meeting them today. Discussed with primary care team Carrie Parrish MD 12/08/2017 11:39 Guerita Chi - 12/08/2017 1040 EDT Initial Case Management/Social Work Assessment and Discharge Plan/Readmission Risk Assessment REASON FOR ADMISSION: Pt is a 27 yo woman with PMhxx= untreated HepC, remote IV drug use, depression, and anxiety who presented to [facility] with a one-month history of petechial rash and was found with infective endocarditis, complicated by severe mitral regurgitation, 10x12 mm mitral valve vegetation,hemolytic anemia, and petechial rash Patient understands reason for admission: No (Patient verbalizes understanding that she has endocarditis but I don't think she truly understands what it is. She does know that her father from it. ) PATIENT CONTACT INFO VERIFIED: Yes PATIENT ADDRESS VERIFIED: Yes LIVING ARRANGEMENTS AND ACCESSIBILITY ISSUES: Living Arrangements: Spouse / significant other, Friends (Patient lives in second floor apartment. Her friends are her landlords and they live downstairs. ) Levels: 2 Stairs to enter: 2 Handicap access: None Bathroom located on bedroom level?: Yes What in home social supports are available to the patient? Spouse / significant other, Parent, Friends / neighbors, Therapist, Other (See comment) Is 29/03 care available? Yes ADVANCED DIRECTIVES, POA &/or COLST IN PLACE: Healthcare Directive: Yes, patient has advance directive for healthcare treatment Type of Healthcare Directive: Health care treatment directive Copy in Chart: Yes, new copy in paper chart @ [facility] (Sent to HIM today. ) Information on Healthcare Directives Requested: Yes Patient Requests Assistance: Other (Comment) (I assisted patient with completing her advance directive today per her wishes. Document was signed and witnessed. Original and copies given to her mother. Copy sent to HIM. They will send a copy to [facility].) DIRECTIVES FOR FINANCES: Directive For Finances: No TRANSPORTATION: Transportation: Family CULTURAL, SIKH and/or LANGUAGE factors affecting health care/discharge planning: Spiritual/Cultural Requests: None Any factors affecting health care/discharge planning?: No Insurance in Place: Yes Medical Insurance: Yes Type of insurance: Medicaid Medicaid Type: Community Referred to patient financial services: No DISCHARGE RISK ASSESSMENT: Issues with health literacy;Decreased adherence to treatment plan;Historyof mental illness (Mental illness is drug addiction. )depression and anxiety. Total # selected above: Score of 2 - 4: This patient is at MODERATE RISK for re-hospitalization Tentative plan to address the risk of re-hospitalization for those at HIGH MODERATE RISK: RAPT TOOL: Age: (27) Gender: Female Ambulation distance: 2 or more blocks (600ft) Gait device: None Community Services: Home health, MOW, SASH-none of one time a week Will you live with someone who will care for you?: Yes RAPT Tool Score: 9 Patient expects to be discharged to: Home with her boyfriend SBIRT: SASQ (Single Alcohol Screening Question) How many times in the past year have you had 4 or more drinks in a single day?: (not assessed this morning as patient was agitated with my questions. ) How many times in the past year have you used an illegal drug or used a prescription medication for non-medical reasons?: (not assessed this am due to patients agitation. ) Intervention in place/initiated?: Other (Comment) (Patient is actively involved with [facility].) FUNCTIONAL STATUS: Activities patient requires assistance: None Assistive Device: None COMMUNITY RESOURCES/SUPPORTS: Primary Care Provider: Alex Bliss PCP Verified: Yes Specialists: Type of Home Health Services: None DME Provider: Pharmacy: No Pharmacies Listed Home Health: Other: Other (enter in comments) ([facility]: [facility] in [facility] where she also receives counseling. ) POST HOSPITAL TRANSITION PLAN: To be determined pending clinical course. I met with patient, her mother and her boyfriend, Alex this am. Patient is annoyed and agitated withmy questions this am. However, she was willing to let me complete the assessment above and I helped her complete an Advance Directive this am so that her mom can speak on her behalf if she cannot speakfor herself. Patient reports she just wants to go home. She verbalizes understanding that her dx is serious and life threatening, stating yea, my Dad just from this 8 months ago. She said several times that she doesn't want heart surgery. She states her boyfriend, mom, and [facility] team are her best supports. [facility] is helping her apply for SSI . They rely on general assistance to pay their rent, they have food stamps, and fuel assistance. They also get a lot of financial and emotional support from Haleigh, patients mom. Patient has 4 sons, ages 10, 5, 4, and 2 who are in other family memberscustody. Guerita Omalley 12/08/2017 10:40 umanth, Marta Vasquez DO - 12/08/2017 0818 EDT Critical Care Progress Note Service Date: 12/08/2017 Admit Date: 12/07/2017 15:08 Reason for Admission to ICU: 27 y.o. female admitted with a chief complaint of rash and weakness andnow with a principal diagnosis of Subacute bacterial endocarditis. Critical and life-threatening events over the past 24 hours: -hemodynamically stable -refused labs Subjective/Objective Subjective Pt was resting in bed, refused to cooperate with exam. Mother was by bedside, requesting to see social work specialist to assist with paperwork for DPOA to take over care for daughter. Mother was worried and Review of Systems A ten point review of systems was performed. Limited due to cooperation Objective Blood pressure 106/68, temperature 36.1 ??C (97 ??F), temperature source Tympanic, resp. rate 15, height 172.7 cm (68), weight 97 kg (213 lb 13.5 oz), SpO2 99 %. Physical Exam GEN: A&Ox4, NAD, HEENT: NC, AT, EOMI, no scleral icterus, MMM, no JVD appreciated, poor lower dentition and no abscess noted RESP: CTA, no wheezes, no increased work of breathing, speaking in full sentences CV: RRR, S1&2 noted, holosystolic murmur 3/6 grade ABD: soft, non-tender, non-distended, no rebound EXT: warm, no edema, pulses 2+ bilaterally MSK: no tenderness along the cervical and thoracolumbar spine SKIN: diffuse petechial rash to LE and UE, echymosis to right lateral malleolus and medial upper arm : no garcia Lab Results Component Value Date CREATININE 0.65 12/07/2017 Lab Results Component Value Date NA 138 12/07/2017 K 3.7 12/07/2017 CL 105 12/07/2017 CO2 27 12/07/2017 Lab Results Component Value Date WBC 4.62 12/07/2017 HGB 8.8 (L) 12/07/2017 HCT 28.2 (L) 12/07/2017 MCV 75 (L) 12/07/2017 PLT 145 12/07/2017 HIV pending Blood culture pending OSH blood culture: enterococcus growth (per verbal report) Assessment/Plan Assessment Pt is a 27 yo woman with PMhx untreated HepC, remote IV drug use, depression, and anxiety who presented to [facility] with a one-month history of petechial rash and was found with infective endocarditis with 10x12 mm mitral valve vegetation and complicated by severe mitral regurgitation and hemolytic anemia. Currently pt is hemodynamically stable for further care on Medicine Service Plan Pulmonary -on room air -monitor Cardiac Infective Endocarditis with Severe Mitral Regurgitation and 10x12 mm mitral valve vegetation. Echo on 12/07 showed LVEF 55-60, no WMA. -CT surgery consulted - follow up on recs -continue vancomycin -KRISTOPHER pending -telemetry ID - Infective endocarditis, untreated hep C, Rash - likely due to underlying endocarditis. OSH blood culture with Enterococcus growth -ID consulted -> follow up on final recs - blood culture x2 -f/u on OSH final bld cx 12/06 and 12/07 -continue vancomycin -vancomycine trough in am - goal 15-20 -HIV pending -follow up on OSH hepatitis serology Renal no active issue -making adequate urine -monitor I/O -fluid goal neg even to 1000 Intake/Output Summary (Last 24 hours) at 12/08/17 0818 Last data filed at 12/08/17 0600 Gross per 24 hour Intake 1080 ml Output 1850 ml Net -770 ml GI Nutrition splenic lesion noted on imaging, likely embolic from endocarditis -monitor Hematologic hemolytic anemia - likely intravascular hemolysis. S/p 2 u RBC with hgb 6.3 to 8.8 -cbc -T&S -trend hemolysis labs -followup on OSH haptoglobin -holding dvt ppx for anemia - SCD and encourage mobility Neurologic hx of drug abuse, on methadone therapy, confirmed dosage at [facility] - last dose given today 12/07 at OSH -continue methadone 95 mg daily -may need dosage adjustment if anticipate surgery with anesthesia Endocrine no active issue Lines PIV Prophylaxis holding pharm dvt ppx for anemia, GI ppx not indicated Mobility activity as tolerated Communication updated mother Code Status: Full Code. Clinical Condition: stable Disposition: transfer to Medicine Service today Critical Care Daily Checklist: Completed Marta Julio DO 12/08/2017 8:18 Associated attestation - Arie Padilla MD - 12/08/2017 1629 EDT Attestation: I saw and examined the patient with the resident/fellow 12/08/2017. I agree with the findings and plan of care documented in the resident's/fellow's note. Arie Padilla MD 12/08/2017 16:28Carroll Hurst RT - 12/07/2017 1749 EDT Respiratory Consult/Progress Note Indications for Respiratory therapy: ICU Data Vitals: Heart Rate: 90 BPM, Resp: 15, SpO2: 98 % FIO2/O2 Device: O2 Flow Rate (L/min): 0 l/min, , O2 Device: None, FIO2 %: 21 % RT Orders: q12 resp eval Protocol Scoring: Bronchodilator/Inhalation Therapy Frequency Bronchodialator - Clinical Indications: No clinical indications Breath Sounds: Clear Response: No change / no treatment Pulse: <100 Resp Rate: <18 SOB: None Total Score: 0 Airway Clearance Therapy Frequency Airway Clearance - Clinical Indications: No clinical indications Breath Sounds: Clear / diminished Sputum: Small (tsp) / None Consistency: None Cough Effort: Strong, non-productive Color: None Total Score: 0 Hyperinflation Therapy Frequency Hyperinflation - Clinical Indications: No clinical indications Breath Sounds: Clear Surgery: No X-Ray / Atelectasis: No O2 Requirements: O2 at baseline Mobility Status: Mobile / at baseline Total: 0 Action/Events Respiratory events; Consulted pt, who stated she does not take respiratory medications at home, no cpap/bipap, and no home oxygen RT [place] 12/07/17 Guerita Cevallos RN - 12/07/2017 1600 EDT 1530: Pt arrives via EMS to [id number] - agitated and displeased with current hospital course. Pt ambulated to bathroom independently. Sinus rhythm on tele, rate 70s, normotensive, on room air in no apparentdistress. Petechial rash on lower extremities, right arm. Poor dentition - reports needing 7 teeth pulled in order to get dentures. Labs drawn per order. Pt's mother & sig.other at bedside. 1545: Pt angry, uncooperative - refusing blood cultures, demanding food, but declining opportunity to order when offered menu, removed blood pressure cuff. Case management involved - offered support. MDs aware of refusal. 1800: Pt taking POs - continuing to resist cares.Pt and mother updated on plan of care. Nila Fernandez RN - 12/07/2017 1545 EDT Case Management Contact Note: Met briefly with Ish when she arrived from [facility]. Ish is veryhungry and uncooperative with much of her care. I have explained to her multiple times that she needs to be patient and cooperative as we are all here to try to help her. Met with Ish's mom [place] boyfriend Alex. Haleigh shared that Ish's father 8 months ago at [facility] due to complications from endocarditis r/t drug use. Ish adamantly denies IVDU and reports all of her tox screenshave been negative. Nila Fernandez RN, BSN #[id number] documented in this encounter H&P Notes Azalia Hall MD - 12/15/2017 1438 EDT Sedation for Procedure History & Physical Date: 12/15/2017 Time: 14:39 Location: Echo Lab Planned Procedure: KRISTOPHER Chief Complaint/Indications for Procedure: endocarditis History: ?? 27 yo woman with a history of prior IVDU on methadone, Hepatitis C currently admitted from [facility] withenterococcus bacteremia and mitral valve endocarditis with severe MR on TTE (done at [facility], [facility] [place]). ID and CT surgery consulting. KRISTOPHER for further pre-op evaluation and concern for possible abscess (GA prolonged on OSH ECG). Patient reports SOB on exertion. Concern for ongoing new septic emboli despite abx treatment. Unable to tolerate KRISTOPHER topical anesthesia previously so plan forTEE with deeper anesthesia today with presence of anesthesia provider. ?? Previous Complication with Sedation and/or Anesthesia? Yes (difficult to sedate due to opiate use) Allergies: No Known Allergies Current Medications: Prescriptions Prior to Admission Medication Sig Dispense Refill Last Dose ??? methadone (DOLOPHINE) 5 mg/5 mL oral solution Take 95 mg by mouth daily. ??? trazodone (DESYREL) 50 mg tablet Take 50 mg by mouth at bedtime. 02/07/2012 Past Medical History: Past Medical History: Diagnosis Date ??? Hepatitis C Social History: No past surgical history on file. Social History Substance Use Topics ??? Smoking status: Current Every Day Smoker Packs/day: 0.25 Types: Cigarettes ??? Smokeless tobacco: Never Used ??? Alcohol use No Family History: No family history on file. Review of Systems as pertinent: Physical: Vital Signs: BP 133/85 Pulse 96 Temp 36.1 ??C (97 ??F) (Tympanic) Resp 12 Ht 172.7 cm (68) Wt 95.3 kg (210 lb) SpO2 97% BMI 31.93 kg/m2 Heart Examination: Cardiac Regularity: Regular Respiratory Examination: Respiratory Pattern: Regular Breath Sounds Right: Clear Breath Sounds Left: Clear Additional physical exam related to the proposed procedure, patient activity, disease state and treatment as pertinent: Assessment: Previous complications with sedation or anesthesia?: Yes (difficult to sedate due to opiate use) Airway Concerns: Fever Anesthesia Classification: ASA 4 Plan: KRISTOPHER Fasting Time: Time of last liquid intake: 0800 (sip water with pills) Date of Last Liquid Intake: 12/15/17 Time of last solid intake: 0200 Date of last solid intake: 12/15/17 Patient Appropriate Candidate for Planned Sedation?: Yes Azalia Hall MD 12/15/2017 14:39 Azalia Martin MD - 12/09/2017 0959 EDT Sedation for Procedure History & Physical Date: 12/09/2017 Time: 10:09 Location: Echo Lab Planned Procedure: KRISTOPHER Chief Complaint/Indications for Procedure: Mitral valve endocarditis History: 27 yo woman with a history of prior IVDU on methadone, Hepatitis C currently admitted from [facility] withenterococcus bacteremia and mitral valve endocarditis with severe MR on TTE (done at [facility], [facility]). ID and CT surgery consulting. KRISTOPHER for further pre-op evaluation and concern for possible abscess (GA prolonged on OSH ECG). Patient reports SOB on exertion. Ongoing inpatient work-up for positive HIV ab Previous Complication with Sedation and/or Anesthesia? Yes (difficult to sedate due to opiate use) Allergies: No Known Allergies Current Medications: Prescriptions Prior to Admission Medication Sig Dispense Refill Last Dose ??? methadone (DOLOPHINE) 5 mg/5 mL oral solution Take 95 mg by mouth daily. ??? trazodone (DESYREL) 50 mg tablet Take 50 mg by mouth at bedtime. 02/07/2012 Past Medical History: Past Medical History: Diagnosis Date ??? Hepatitis C Social History: No past surgical history on file. Social History Substance Use Topics ??? Smoking status: Current Every Day Smoker Packs/day: 0.25 Types: Cigarettes ??? Smokeless tobacco: Never Used ??? Alcohol use No Family History: No family history on file. Review of Systems as pertinent: Physical: Vital Signs: BP 123/83 Pulse 96 Temp 36.8 ??C (98.2 ??F) (Tympanic) Resp 18 Ht 172.7 cm (68) Wt 100.5 kg (221 lb 9 oz) Comment: bed weight SpO2 98% BMI 33.69 kg/m2 Heart Examination: Cardiac Regularity: Regular Respiratory Examination: Respiratory Pattern: Regular Breath Sounds Right: Clear Breath Sounds Left: Clear Additional physical exam related to the proposed procedure, patient activity, disease state and treatment as pertinent: Assessment: Previous complications with sedation or anesthesia?: Yes (difficult to sedate due to opiate use) Airway Concerns: Fever Anesthesia Classification: ASA 4 Plan: KRISTOPHER (initial plan, see below for update) Fasting Time: Time of last liquid intake: 844 Date of Last Liquid Intake: 12/09/17 Time of last solid intake: 1999 Date of last solid intake: 12/08/17 Patient Appropriate Candidate for Planned Sedation?: Yes Azalia Hall MD 12/09/2017 10:09 Update: Echo Lab Brief Note Patient initially hesitant but willing to try KRISTOPHER under conscious sedation despite her concerns about inability to do sedation with her chronic opiate use (on methadone). For topical sedation we typically use lidocaine gel however patient with inability to tolerate lido gel and unwilling to try again.Now refusing KRISTOPHER unless done with general anesthesia. Will defer to primary team / ID / CT surgery regarding further KRISTOPHER planning. Berto Clark - 12/07/2017 1346 EDT MICU Admitting H+P Date of Service: 12/07/2017 Chief Complaint: Ish Orellana is a 27 y.o. female admitted critically ill to the MICU for infective endocarditis and severe mitral regurgitation. LOS: 0 days . HPI: Pt is a 27 yo woman with PMhx untreated HepC, remote IV drug use (last use 3 years ago, on [id number] mg, confirmed with [facility]), depression, and anxiety who presented to [facility] with a one-monthhistory of petechial rash, initially started on feet and ankles ascending to UEs. She has associatedfever (101.3), shaking chills, rigors, and weakess with intermittent dizziness. Labs notable for hgb7.3 ->6.3 ->8.8 after 2 units of RBC transfusion, MCV 73, plt 176K, WBC 5.9, peripheral smear showed schistocytes 1+. CMP notable for Cr 0.85, lactic 1.7, ca 7.8, albumin 2.0, total protein 7.1, AST 39, ALT 11, alk phos 91, lipase 99, glucose 79. Trop 0.13. BNP 440. Blood culture grew GPC on nd 12/07 samples. ESR and CRP elevated Hep serology pending. Echocardiogram on 12/07 showed LVEF 55-60,no WMA, mitral valve with 10x12 mm vegetation the posterior leaflet, possibly extension on to anterior leaflet and proximal LA posterior wall adjacent to attachment of posterior leaflet, and severe regurgitation. CXR showed no acute pathology. US abdomen showed hepatic infiltrates consistent with steatosis, borderline dilated CBD of 7 mm and splenomegaly with lesion measuring 8.1x4.4x5. She was givenvancomycin evening and this am @800 am and cefepime for endocarditis, and lasix 20 mg IV.She was also given methadone 95 mg this am. On arrival, pt was in NAD and hemodynamically stable. She reports fatigue, fever, chills, night sweats, and weight loss (295-216 lb over a year period). She denies chest pain, sob, abdominal pain, nausea, emesis, dysuria, and diarrhea. Social hx is notable for significant IV drugs use (father of endocarditis, sibling with drug use) PMH PSH Past Medical History: Diagnosis Date ??? Hepatitis C No past surgical history on file. Social History Family History Social History Substance Use Topics ??? Smoking status: Current Every Day Smoker Packs/day: 0.25 Types: Cigarettes ??? Smokeless tobacco: Never Used ??? Alcohol use No No family history on file. Medications Prescriptions Prior to Admission Medication Sig Dispense Refill Last Dose ??? methadone (DOLOPHINE) 5 mg/5 mL oral solution Take 95 mg by mouth daily. ??? trazodone (DESYREL) 50 mg tablet Take 50 mg by mouth at bedtime. 02/07/2012 Allergies No Known Allergies Review Of Systems: Performed. Pertinent negatives and positives note in subjective. Physical Examination: Vital Signs: Patient Vitals for the past 8 hrs: BP Heart Rate Temp SpO2 O2 Flow Rate (L/min) FIO2 % 12/07/17 1600 - 93 BPM - 99 % - - 12/07/17 1520 136/86 87 BPM 36.4 ??C (97.5 ??F) 99 % 0 l/min 21 % EXAM GEN: A&Ox4, NAD, HEENT: NC, AT, EOMI, no scleral icterus, MMM, no JVD appreciated, poor lower dentition and no abscess noted RESP: CTA, no wheezes, no increased work of breathing, speaking in full sentences CV: RRR, S1&2 noted, holosystolic murmur 3/6 grade ABD: soft, non-tender, non-distended, no rebound EXT: warm, no edema, pulses 2+ bilaterally SKIN: diffuse petechial rash to LE and UE, echymosis to right lateral malleolus and medial upper arm : no garcia Data Review: I have independently visualized the Labs: Results for orders placed or performed during the hospital encounter of 12/07/17 (from the past 24 hour(s)) GLUCOSE, GLUCOMETER Collection Time: 12/07/17 15:25 Result Value Ref Range Glucose, Fingerstick 80 70 - 100 mg/dl Chuck Tender ID [id number] TYPE AND SCREEN Collection Time: 12/07/17 15:44 Result Value Ref Range ABO O Rh Factor Positive Antibody Screen Negative Specimen Expires: 12/10/2017 @ 23:59 CALCIUM Collection Time: 12/07/17 15:49 Result Value Ref Range Calcium 7.9 (L) 8.5 - 10.5 mg/dl Calculated Calcium 9.3 8.5 - 10.5 mg/dl ELECTROLYTES Collection Time: 12/07/17 15:49 Result Value Ref Range Sodium 138 136 - 145 mEq/L Potassium 3.7 3.5 - 5.0 mEq/L Chloride 105 96 - 110 mEq/L CO2 27 22 - 32 mEq/L MAGNESIUM Collection Time: 12/07/17 15:49 Result Value Ref Range Magnesium 1.9 1.7 - 2.8 mg/dl PHOSPHORUS Collection Time: 12/07/17 15:49 Result Value Ref Range Phosphorus 3.6 2.5 - 4.5 mg/dl SCREENING GLUCOSE Collection Time: 12/07/17 15:49 Result Value Ref Range Glucose, Screening 77 70 - 100 mg/dl BUN Collection Time: 12/07/17 15:49 Result Value Ref Range BUN 6 (L) 10 - 26 mg/dl CREATININE Collection Time: 12/07/17 15:49 Result Value Ref Range Creatinine 0.65 0.52 - 1.04 mg/dl GFR, Calculated 121 >60 ml/min/1.73m2 ALBUMIN Collection Time: 12/07/17 15:49 Result Value Ref Range Albumin 2.3 (L) 3.4 - 4.9 g/dl ALT Collection Time: 12/07/17 15:49 Result Value Ref Range ALT 25 <53 U/L AST Collection Time: 12/07/17 15:49 Result Value Ref Range AST 40 15 - 46 U/L BILIRUBIN DIRECT/INDIRECT Collection Time: 12/07/17 15:49 Result Value Ref Range Conjugated Bilirubin 0.0 0.0 - 0.3 mg/dl Unconjugated Bilirubin 1.1 0.0 - 1.1 mg/dl BILIRUBIN, TOTAL Collection Time: 12/07/17 15:49 Result Value Ref Range Bilirubin, Total 1.7 (H) <1.4 mg/dl TROPONIN I Collection Time: 12/07/17 15:49 Result Value Ref Range Troponin I 0.048 (H) <0.034 ng/ml PROTEIN, TOTAL Collection Time: 12/07/17 15:49 Result Value Ref Range Total Protein 6.3 6.3 - 8.2 g/dl HEMAGRAM AND DIFFERENTIAL Collection Time: 12/07/17 15:49 Result Value Ref Range WBC 4.62 4.0 - 12.4 K/cmm RBC 3.76 (L) 3.86 - 5.04 M/cmm Hemoglobin 8.8 (L) 11.6 - 15.2 gm/dl HCT 28.2 (L) 34.9 - 44.4 % MCV 75 (L) 81 - 98 fl MCH 23.4 (L) 26.7 - 33.3 pg Hypochromia 1+ MCHC 31.2 (L) 32.1 - 35.9 gm/dl RDW-CV 23.1 (H) <14.7 % RDW-SD 61.1 (H) <50.4 fl Anisocytosis 2+ PLT 145 141 - 377 K/cmm MPV Not Available 9.5 - 12.7 fl Neutrophils 68.0 % Lymphocytes 30.0 % Monocytes 1.0 % Eosinophils 1.0 % ABS Neutrophils 3.13 2.20 - 8.85 K/cmm ABS Lymphs 1.39 1.09 - 3.30 K/cmm ABS Monocytes 0.05 (L) 0.1 - 0.8 K/cmm ABS Eosinophils 0.05 0.03 - 0.61 K/cmm Vacuolization Present Large Platelets Present Type of Diff: Manual PROTIME Collection Time: 12/07/17 15:49 Result Value Ref Range Pro Time 14.8 (H) 10.3 - 13.4 secs I.N.R. 1.3 (H) 0.9 - 1.1 Ratio LACTIC ACID Collection Time: 12/07/17 15:49 Result Value Ref Range Lactic Acid 1.2 <2.0 mmol/L Other Studies: Reviewed OSH images. Echocardiogram on 12/07 showed LVEF 55-60, no WMA, mitral valve with 10x12 mm vegetation the posteriorleaflet, possibly extension on to anterior leaflet and proximal LA posterior wall adjacent to attachment of posterior leaflet, and severe regurgitation. CXR showed no acute pathology. US abdomen showed hepatic infiltrates consistent with steatosis, borderline dilated CBD of 7 mm and splenomegaly with lesion measuring 8.1x4.4x5. Assessment/Problems/Plans: Pt is a 27 yo woman with PMhxx= untreated HepC, remote IV drug use, depression, and anxiety who presented to [facility] with a one- month history of petechial rash and was found with infective endocarditis, complicated by severe mitral regurgitation, 10x12 mm mitral valve vegetatio n,hemolytic anemia, and petechial rash. Currently pt is hemodynamically stable. Respiratory: -on room air -monitor Cardiovascular: Infective Endocarditis with Severe Mitral Regurgitation and 10x12 mm mitral valve vegetation. Echo on 12/07 showed LVEF 55-60, no WMA. -CT surgery consulted - follow up on recs -continue vancomycin and cefepime -KRISTOPHER ordered -telemetry ID - Infective endocarditis, untreated hep C, Rash - likely due to underlying endocarditis -ID consulted -> follow up on final recs -repeat blood culture x2 -f/u on OSH final bld cx 12/06 and 12/07 -continue vancomycin and cefepime -vancomycine trough in am - goal 15-20 -HIV -follow up on OSH hepatitis serology Hematologic: hemolytic anemia - likely intravascular hemolysis. S/p 2 u RBC with hgb 6.3 to 8.8 -cbc -T&S -trend hemolysis labs -followup on OSH haptoglobin -holding dvt ppx for anemia Cutaneous: petechial rash - likely due to underlying endocarditis -clinically monitor Endocrine: no active issue Neuro/Psychiatric: hx of drug abuse, on methadone therapy, confirmed dosage at [facility] - last dose given today 3 at OSH -continue methadone 95 mg tomorrow -may need dosage adjustment if anticipate surgery with anesthesia Endocrine: no active issue Renal: no active issue -making adequate urine -monitor I/O -fluid goal net neg 500-1000 GI/Nutrition: splenic lesion noted on imaging, likely embolic from endocarditis -NPO after midnight for possible surgery GI & DVT Prophylaxis: holding pharm dvt ppx for anemia, GI ppx not indicated Lines/Tubes/Invasive: PIV, Consultants: CT surgery, ID Social: lives with partner Prognosis/Disposition: Donitaed Marta Julio DO 12/07/2017 13:46 Attending attestation statement: I saw and examined the patient with the resident and agree with thefindings and plans as documented, and as amended in blue. Clinical Condition: Ish Orellana is a critically ill 27 y.o. female. Over the past 24 hours, there has been a high probability of sudden, clinically significant or life threatening deterioration inthe patient???s condition, which include the following diagnoses which I have managed: 1. Acute infective endocarditis, due to unspecified organism 2. Non-rheumatic mitral regurgitation 3. Gram-positive bacteremia 4. Rash 5. Chronic hepatitis C without hepatic coma (HCC-CMS) Critical Care time was provided in the form of interventions to treat and prevent further life threatening deterioration of the patient???s condition, and high complexity decision making regarding needfor additional imaging studies and / or interventional radiology interventions. My bedside involvement was required to monitor and direct the critical care that has been provided. Exclusive of procedures, my critical care time is 33 minutes. Berto Clement MD Anesthesiology & Critical Care Medicine Pager #[phone] 12/07/2017 documented in this encounter Procedure Notes Neptali Lopez PA - 12/23/2017 1613 EDT Chest tube dressing taken down. Stay sutures removed. No air leak was observed. Mediastinal and pleural chest tubes were clamped and removed. Chest tube site was secured with suture. CXR is ordered [employer] Azalia Martin MD - 12/15/2017 1710 EDTProcedure(s): TRANSESOPHAGEAL ECHO (KRISTOPHER)Pre- Procedure Diagnose(s): Acute bacterial endocarditisPost-Procedure Diagnose(s): Acute bacterial endocarditis Transesophageal Echocardiogram Brief Post-Procedure Note Date of Procedure: 12/15/2017 Attending: Orlando Alvarado MD Fellow: Azalia Hall MD and Italo Batista MD Pre-Op Diagnosis: mitral endocarditis Post-Op Diagnosis: mitral endocarditis, phlegmon extending from posterior leaflet extensively into left atrium particularly posterior and lateral agrawal Procedure: Transesophageal echocardiogram. Findings: posterior and anterior mitral valve with large vegetations. Phlegmon (?vs abscess) extending from posterior mitral valve into left atrium posterior and lateral agrawal. Severe mitral regurgitation. Mildly dilated LV. Anesthesia Type: Deep sedation by anesthesia Estimated Blood Loss: Unless otherwise noted, there was no blood loss, specimens removed, cultures obtained, or drains retained. Complications: None Disposition and Condition: The patient was sent back to the original unit in Fair condition. 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: Patient Location: [id number]/02 Preliminary Data: Insertion Date: 12/11/17 Insertion Time: 936 First Chuck Tender: Kandi Lawrence RN RN/MA Documenting Procedure: Zurdo Sidhu RN Pre-procedure: Time Out / Final Moment Performed: Yes Hand Hygiene Immediately Prior To Procedure: Yes Site Disinfected-2% Chlorhex/70% Alcohol: Yes Procedure Site Completely Dry: Yes Entire Patient Draped in Sterile Fashion: Yes Intra-procedure: Sterile Gloves Used: Yes Cap, Mask, and Sterile Gown - Operators: Yes Sterile Field Maintained: Yes Cap and Mask Worn - All Personnel: Yes Post-procedure: Sterile Dressing Applied - Sterile Technique: Yes Dressing Dated And Timed: Yes Needle Passes: [facility] RN Makes 2 Or Fewer Needle Passes: 2 or fewer passes Physician Documentation Pre-Procedure: Procedure To Be Performed: New central line placement Indication: Poor peripheral access Conditions Present: Other (Comment) (endocarditis) Line Priority: Routine Tip Confirmation: 3CG Consent Obtained: Yes The patient and/or family have been provided education/training to minimize the risk of central line-associated bloodstream infections. Central Line Type: Central Catheter Type: PICC PICC Type: Solo PICC Central Line Details: Line Location: Right;Brachial Final Tip Location: Other (Comment) (CAJ with 3CG) Line Lumens (#): Double Central Line Size: 5 Fr Line Coating: Non-antimicrobial coated Vessel Size: 7 mm Vein Depth (cm): 1.0 cm Line Trim Length: 43 cm Line External Length: 3 cm Line Securement Device: Statlock device Responsible Service / IR Details: Responsible Service: [facility] RN Lidocaine 1% - Route/Dose (cc's): Intradermal;2 Central Line Materials and Methods: Number of Attempts: 1 Number of Sites Attempted: 1 Number of Kits Used: 1 Location Device Used: Sherlock;Ultrasound;3CG Central Line Operators: Number Of Operators: 1 First Chuck Tender's Name: Kandi Lawrence RN First Chuck Tender's Title: Vascular water filterer Unless otherwise noted, there were no complications, no blood loss and no cultures obtained. KANDI LAWRENCE RN 12/11/2017 9:44 documented in this encounter Consult Notes Mari Read MD - 12/21/2017 0936 EDT Anesthesia Pain Service Inpatient Consult Name: Ish Tee Esteban :: Age: 27 y.o. :: , :: Location: CCU Requesting physician: Britany Dumont MD Anesthesiology attending: SANDY Reason for consult: acute on chronic pain Cc: acute on chronic pain HPI: Patient is a 27 y.o. year old female with a hx of IVDU (last used 3 years ago), chronic methadone, endocarditis, hep C, and is now POD1 s/p MVR for severe MR. Buckley was extubated overnight and is reporting significant post op pain despite ketamine gtt and PO and IV opioids. Prior to surgery she was taking 95mg of methadone/day. ROS: A 12 system comprehensive review of systems was performed. Pertinent negatives and positives, if present, are noted in the HPI. Past Medical History: Diagnosis Date ??? Hepatitis C Patient Active Problem List Diagnosis ??? High-risk ??? Tobacco use disorder affecting , antepartum ??? Drug use ??? Viral hepatitis C ??? Papanicolaou smear of cervix with atypical squamous cells cannot exclude high grade squamous intraepithelial lesion (ASC-H) ??? Subacute bacterial endocarditis ??? Hemolytic anemia (HCC-CMS) ??? Non-rheumatic mitral regurgitation ??? Acute infective endocarditis No past surgical history on file. Home Medications No current facility-administered medications on file prior to encounter. Current Outpatient Prescriptions on File Prior to Encounter Medication Sig Dispense Refill ??? trazodone (DESYREL) 50 mg tablet Take 50 mg by mouth at bedtime. Hospital Medications Current Facility-Administered Medications: acetaminophen (TYLENOL) tablet 1,000 mg oral Q6H Or acetaminophen (TYLENOL) suppository 975 mg rectal Q6H Or acetaminophen (TYLENOL) solution unit dose cup 995 mg oral Q6H alteplase (CATHFLO ACTIVASE) injection 2 mg intercatheter PRN ampicillin (OMNIPEN) 2 g in sodium chloride (NS MBP) 100 mL infusion intravenous Q4H dexmedetomidine in 0.9 % NaCl (PRECEDEX) 400 mcg/100 mL infusion intravenous CONTINUOUS dextrose 50 % solution 12.5-25 g intravenous PRN gabapentin (NEURONTIN) capsule 300 mg oral Q8H Or gabapentin (NEURONTIN) solution 300 mg oral Q8H gentamicin (GARAMYCIN) 45 mg in sodium chloride (NS) 0.9 % 50 mL IVPB intravenous Q12H HYDROmorphone (DILAUDID) tablet 2-4 mg oral Q4H PRN Or HYDROmorphone (DILAUDID) tablet 2 mg oral Q4H PRN HYDROmorphone 1 mg/ml (DILAUDID) [employer] syringe, 30 ml intravenous [employer] insulin regular (HUMULIN R, NOVOLIN R) 2 Units bolus infusion intravenous PRN insulin regular (HUMULIN R,NOVOLIN R) 100 Units in sodium chloride (NS) 0.9 % 100 mL infusion intravenous CONTINUOUS ketAMINE (KETALAR) 500mg in NaCl 0.9% 50ml syringe intravenous CONTINUOUS methadone (DOLOPHINE) concentrated solution 95 mg oral DAILY morphine injection 1-4 mg intravenous Q1H PRN nitroglycerin 400 mcg/ml in D5W 250 ml infusion intravenous CONTINUOUS ondansetron (PF) (ZOFRAN) injection 4 mg intravenous Q6H PRN phenylephrine HCl in 0.9% NaCl (NEO_SYNEPHRINE) 20 mg/250 mL (80 mcg/mL) infusion solution intravenous CONTINUOUS potassium chloride in water infusion 20 mEq intravenous PRN sodium chloride 0.9 % (NS) infusion intravenous CONTINUOUS traMADol (ULTRAM) tablet 50-100 mg oral Q6H PRN Allergies No Known Allergies SHx: Social History Social History ??? Marital status: Single Spouse name: N/A ??? Number of children: N/A ??? Years of education: N/A Occupational History ??? Not on file. Social History Main Topics ??? Smoking status: Current Every Day Smoker Packs/day: 0.25 Types: Cigarettes ??? Smokeless tobacco: Never Used ??? Alcohol use No ??? Drug use: Yes Special: Opioids Comment: uses 2 mg buprenorphrine daily ??? Sexual activity: Yes Partners: Male Other Topics Concern ??? Not on file Social History Narrative FHx: No family history on file. Labs: Lab Results Component Value Date WBC 11.24 12/21/2017 HGB 7.7 (L) 12/21/2017 HCT 24.6 (L) 12/21/2017 MCV 83 12/21/2017 PLT 283 12/21/2017 Lab Results Component Value Date INR 1.5 (H) 12/20/2017 INR 1.3 (H) 12/08/2017 INR 1.3 (H) 12/07/2017 PROTIME 17.3 (H) 12/20/2017 PROTIME 15.5 (H) 12/08/2017 PROTIME 14.8 (H) 12/07/2017 PE: Vitals: BP (P) 120/80 (BP Cuff Location: Left arm) Pulse 80 Temp 36.5 ??C (97.7 ??F) (Oral) Resp 19 Ht 172.7 cm (68) Wt 99.8 kg (220 lb) SpO2 97% BMI 33.45 kg/m2 General:moderate distress Neuro: moving all extremities, speech fluent HEAD: normocephalic Neck: cordis in place on R Heart: warm and well perfused Lungs: shallow breathing Skin: clear, warm, dry Upper extremities: No clubbing, cyanosis, or edema. A line in place in L arm Assessment: Patient is a 27 y.o. yo female with a hx of IVDU, chronic methadone use, endocarditis, now POD1 s/p MVR for severe MR with acute on chronic pain and is experiencing significant pain since extubation o/n. Starting to take oral meds. Recommendations: -restart methadone 95mg/daily -increase ketamine to 20 (orders placed) -continue scheduled tylenol -continue PO dilaudid -continue MANAGER [employer] SAFETY-plan to DC tomorrow -continue morphine [employer]AP[employer]MER [employer] boluses, plan to DC by end of day if more comfortable with increase in ketamine APS will continue to follow, please page [phone] with any questions. 9:36 12/21/2017 Mari Read MD Associated attestation - Michelle Matthew MD - 12/21/2017 7986 EDT I was present for the evaluation and examination of this patient and agree with the above plan. Fahad Leong, Tracey Dexter MD - 12/20/2017 8705 EDT SICU Post-Op Cardiothoracic Surgery Admit Note ? HPI: 27 yo woman with PMhx untreated HepC, IV drug use (last use 3 years ago, on methadone 95 mg, confirmed with [facility]), depression, and anxiety who presented to [facility] with a one-month history of petechial rash that initially started on her feet and ankles ascending to UEs. She has associated fever (101.3), shaking chills, rigors, and weakess with intermittent dizziness. Patient was found to have infective endocarditis, complicated by severe mitral regurgitation, 10x12 mm mitral valve vegetation,hemolytic anemia, splenic infarct, left calf superficial thrombus, and petechial rash. She is nows/p POD 0 s/p mitral valve replacement. ?? Past Medical History: Diagnosis Date ??? Hepatitis C Patient Active Problem List Diagnosis Code ??? High-risk O09.90 ??? Tobacco use disorder affecting , antepartum O99.330 ??? Drug use F19.90 ??? Viral hepatitis C B19.20 ??? Papanicolaou smear of cervix with atypical squamous cells cannot exclude high grade squamous intraepithelial lesion (ASC-H) R87.611 ??? Subacute bacterial endocarditis I33.0 ??? Hemolytic anemia (HCC-CMS) D58.9 ??? Non-rheumatic mitral regurgitation I34.0 ??? Acute infective endocarditis I33.0 Cath Results: N/A ?? Preoperative Echo: 1. Left ventricle: The cavity size was mildly dilated. Wall thickness ? was normal. Systolic function was normal. The estimated ejection ? fraction was 60-65%. Wall motion was normal; there were no regional ? wall motion abnormalities. 2. Right ventricle: The cavity size was normal. Wall thickness was ? normal. Systolic function was normal. 3. Mitral valve: Moderate thickening of the anterior leaflet (middle and ? lateral segment(s)). Thickening of the posterior leaflet. There was a ? large, layered, mobile vegetation on the atrial aspect of the ? anterior leaflet that extends into the left ventricle during ? diastole. There was a large, protruding, serpiginous, highly mobile ? vegetation on the atrial aspect of the posterior leaflet. There was ? evidence for a large, mobile phlegmon and soft tissue erosion ? extending from the posterior leaflet annulus to the posterior and ? lateral wall of the left atrium. There was severe regurgitation ? directed eccentrically. 4. Left atrium: No evidence of thrombus in the appendage. The appendage ? was morphologically a left appendage, multilobulated, and of normal ? size. Emptying velocity was normal. 5. Atrial septum: No defect or patent foramen ovale was identified. ? Doppler showed no atrial level shunt, in the baseline state. 6. Line: A venous catheter was visualized in the superior vena cava, ? with its tip in the right atrium. No abnormal features noted. ?? Risk Factors Tobacco, Obesity, Valvular Heart Disease, Immuno-compromised, Cognitive Impairment, EtOH and drug abuse ?? Pre-Operative Medications: Other medications: ASA [ ] Beta-[place] [ ] Statin [ ] JOSÉ MIGUEL-I [ ] Coumadin [ ] Plavix [ ] Other [ ] Doxazosin [ ] Finasteride [ ] HCTZ [ ] [place] 3 FA [ ] ?? No Known Allergies ?? S/P bovine mitral valve replacement ?? EF: 65% pre- and post-bypass Intraoperative events: Post-MVR peak gradient 8, mean gradient 2, no perivalvular leak ?? Pump Time: 180 min Clamp Time: 134 min Chest Tube(s) Wires: Currently Pacing: Mediastinal [x2] Left Pleural [1 ] Right Pleural [1 ] None Atrial [ ] Ventricular [ ] Both [x ] Yes [x ] - intrinsic rate 40 No [ ] ?? Intra-op fluids: Blood Products Crystalloid UOP 500 cc cell saver FFP [ ] pRBC [x ] - 1 unit 2000 mL 1150 mL ? Post-op: Infusions: Phenylephrine, propofol, plasmalyte ?? Intubation Grade: 1, 7.5# ETT in place ?? Vent Settings: Mode: ASV Rate: 14 Vt 480 PS: PEEP 5 FiO2: 100 Lines: -Garcia -Right PICC (purple port noted to be non-functional in preop) -Right IJ -Left radial arterial line ?? Exam: Gen: intubated, sedated Heart: difficult to auscultate Lungs: CTAB, sternum stable, incision C/D/I, chest tube w/serosang drainage Abd: S, ND : garcia in place with clear urine Ext: WWP, no LE edema bilaterally ?? Outs: UOP: 150 mL Chest Tube: 100 mL in each Pleurevac ?? Assessment and Plan:@ is a 27 y.o. female now POD#0 s/p on-pump mitral valve replacment for severe mitral regurgitation secondary to infective endocarditis. He was transferred to the SICU intubated. Currently hemodynamically stable. ?? Neuro: Propofol and Precedex for sedation while intubated. She received lidocaine infusion and 2 mg hydromorphone intraop for analgesia. APS consult. Starting ketamine infusion. Continue home methadone. CV: Monitor hemodynamic status closely. Goal SBP < 130. Plasmalyte if volume needed. Titrate pressors as needed. Phenylephrine bolused at the bedside by Anesthesiology; infusion continued. F/u post-op ECG. Pulm: Wean vent as able as patient is warmed up. F/u post-op portable CXR. GI/FEN: NPO for now. Reassess on extubation. Can advance to diet nce extubated and able to tolerate.Check lytes now and in 6 hours. Renal: Monitor UOP. Endo: Monitor glucose and manage with insulin gtt. ID: Antibiotics x 24 hrs per protocol Heme: F/u post-op hemagram and 6 hour Hct. Proph: SCD only on the right leg, PPI Tracey Damon MD 12/20/2017 15:37 Clarissa Andrews MD - 12/09/2017 1037 EDT Dental Surgery Consult Note Date of Service: 12/09/2017 Requesting Provider: Abdirashid Brantley MD Specialty Completing Consult: Dental Reason for Consult: Dental Clearance HPI: 27 yo woman admitted for infective endocarditis. History of prior IVDU, hepatitis C, positive HIV. Dental clearance needed for possible valve replacement. ROS Hx of trauma No Past Med Hx PMH PSH Past Medical History: Diagnosis Date ??? Hepatitis C No past surgical history on file. Relevant Medications reviewed Social History Family History Social History Substance Use Topics ??? Smoking status: Current Every Day Smoker Packs/day: 0.25 Types: Cigarettes ??? Smokeless tobacco: Never Used ??? Alcohol use No No family history on file. Medications Current Facility-Administered Medications: bisacodyl (DULCOLAX) suppository 10 mg rectal DAILY diphenhydrAMINE-zinc acetate 2-0.1 % cream topical TID PRN docusate sodium (COLACE) capsule 100 mg oral BID methadone (DOLOPHINE) concentrated solution 95 mg oral DAILY senna (SENOKOT) tablet 2 Tab oral BID PRN sodium chloride 0.9 % flush 3 mL intravenous Q8H vancomycin (VANCOCIN) 1,500 mg in sodium chloride (NS) 0.9 % 500 mL IVPB intravenous Q12H Allergies No Known Allergies Review of Systems: Pertinent items are noted in Subjective/HPI Objective/Physical Exam: VS: Patient Vitals for the past 8 hrs: BP Heart Rate Resp Temp SpO2 O2 Device 12/09/17 1005 110/89 99 BPM - - - - 12/09/17 0926 123/83 94 BPM - 36.8 ??C (98.2 ??F) 98 % None 12/09/17 0847 119/87 96 BPM 18 35.7 ??C (96.3 ??F) 93 % None 12/09/17 0800 - 92 BPM - - - - 12/09/17 0700 - 99 BPM - - - - 12/09/17 0300 - 84 BPM - - - - Exam: Extraoral: No swelling No errythema No tenderness Intraoral: Fully edentulous maxilla Partially edentulous mandible Teeth #22-28 present No appreciable abscesses Significant caries present on #28, pt tender to palpation of tooth Assessment: Unable to do full dental clearance without dental radiographs. Remaining teeth are carious but unsure to what extent. Pt denies any pain or sensitivity from hot, cold, or chewing. Pt not tender on gingiva anywhere. #28 tender to touch, pt states that's where my filling is falling out. Pt states she last saw a dentist about 6 years ago. No appreciable fluctuance or swelling in the mouth, but cannot do full assessment for presence of abscess without radiographs. Recommend that pt have comprehensive dental exam. Nothing acute to treat at this time, so if pt needs urgent surgical intervention, okay from a dental standpoint. Clarissa Lombardi, DAVON 12/09/2017 10:37 Resident Division of Dental Surgery Britany Clarke MD - 12/08/2017 1116 EDT This Consult note has been dictated. #[id number] For questions please do not hesitate to call: . Thank you for allowing me to participate in the care of this patient. Isela Dumont MD STS Prediction Calculation Procedure: MV Replacement Only Risk of Mortality: 4.01% Morbidity or Mortality: 30.666% Long Length of Stay: 28.67% Short Length of Stay: 9.805% Permanent Stroke: 0.898% Prolonged Ventilation: 24.971% DSW Infection: 0.261% Renal Failure: 8.551% Reoperation: 10.599% Britany Clarke MD - 12/08/2017 0000 EDT INPATIENT CONSULTATION SERVICE DATE: 12/08/2017 REFERRING PHYSICIAN: Marta Julio DO CHIEF COMPLAINT: Bacterial endocarditis of the mitral valve. HISTORY OF PRESENT ILLNESS: The patient is a 27-year-old WF who has a history of hepatitis C, depression, anxiety, cocaine and heroin drug abuse and is within the last 3 years currently on methadone maintenance who experienced a rash developing on her lower extremities approximately 2 weeks ago. This rash then developed on her upper extremities within the last week and during this time she has also noted some increasing in shortness of breath. The patient states that she can hardly go up a flight ofstairs at her home without getting extremely short of breath and very fatigued. She has not been around any sick contacts and cannot discern where the source of this is from. The patient did not try any types of creams on the rash and denies any itching. The patient did present for evaluation the day before yesterday as she noticed that the rash was increasing and the shortness of breath was becoming more severe, and she was noted to have a fever at that time. Such being the case, she was referred from her primary care office to the hospital for further evaluation and states that she had defervesced by that time without taking any antipyretics. The patient denies any recent drug abuse, dental caries or active infection elsewhere. She denies any history of infection or heart disease. Her father did pass of endocarditis approximately 6 months ago, and she attributes that to him using IV drugs. PAST MEDICAL HISTORY: 1. Hepatitis C. 2. Depression. 3. Anxiety. 4. Methadone maintenance for history of IV drug abuse with heroin and cocaine. PAST SURGICAL HISTORY: None. She has never been under general anesthesia. MEDICATIONS PRIOR TO ADMISSION: 1. Methadone. 2. Trazodone 50 mg at bedtime. ALLERGIES: No known drug allergies. FAMILY HISTORY: Father passed of bacterial endocarditis per her report 6 months ago secondary to IV drug abuse. No other history of congenital heart disease, strokes or cancer. SOCIAL HISTORY: 1. Next of kin: 4 children: Ages: 10-year-old, 6-year-old, 5-year-old and a 3-year-old who are currently with her mother. 2. Occupation: Not currently working. Last job was at [employer]. 3. Tobacco use: It is half pack per day since 12 years of age. 4. Alcohol use: Denies. 5. Recreational drug use: Heroin and cocaine via IV injection. REVIEW OF SYSTEMS: The patient's 14-point review of systems is significant for the rash, dyspnea on exertion and fatigue stated above in HPI; otherwise, she does endorse poor dental health, however, denies any active dental caries; all others negative. OBJECTIVE: VITAL SIGNS: Temp 96.3 Fahrenheit, BP 122/79, pulse 87, O2 sat 96% on room air. Weight 97 kg. Height 172 cm. General: The patient is intermittently alert and is not heavily somnolent. Appears as a patient who is under significant pain medication and anxiolytic. Appears slightly older than stated age with class 1 obesity/overweight body habitus. Ambulates independently. Accompanied by no one for today's encounter at bedside. Neuro: Awake, intermittently completely alert, oriented x3. Cranial nerves II- XII grossly intact. Psych: Cooperative for exam with appropriate questions. Challenging mood and somewhat flat affect. HEENT: NCAT, poor dentition with visible dental caries. EOMI. No glasses. Neck: Soft, no thyromegaly, no carotid bruits, no cervical lymphadenopathy. Chest Wall: No incisions. Cardiovascular: Regular rate and rhythm, no audible murmur, rubs or gallops. Pulmonary: Clear to auscultation bilaterally. No wheezes, rales or rhonchi. Abdomen: Soft, obese, nontender, nondistended. Extremities: Warm, well perfused, no edema. Full range of motion x4 extremities. Skin: Warm, dry. Tattoo left chest. Purpuric rash bilateral hands and up to forearm and lower extremities below the knee bilaterally. No weeping of the rash. LABS: [facility] 12/07/2017: 1. WBC 4.6, hemoglobin 8.8, hematocrit 28, platelet 145. 2. Sodium 137, potassium 3.8, BUN 6, creatinine 0.67. CHEST X-RAY: 12/07/2017. 1. No convincing evidence of pulmonary edema. 2. Left lower lobe atelectasis. 3. Elevated left diaphragm. ECHO: [facility] read by [facility]'s fitter placer, Sai tSaples, date of service 12/07/2017: 1. Left ventricle, EF 55% to 60%, no regional wall motion abnormalities. 2. Right ventricle cavity size normal, systolic function normal. 3. Mitral valve: Apparent mass on the posterior leaflet, appearance consistent with vegetation (at least 10 x 12 mm). Possible extension onto the anterior leaflet. Vegetation appears to extend into proximal LA posterior wall adjacent to attachment on posterior leaflet. Severe mitral regurgitation directed eccentrically. 4. Inferior vena cava vessel patent with diameter consistent with normal central venous pressure. 5. Aortic valve: Trileaflet, normal thickness leaflets with no regurgitation or stenosis. Left atrium normal in size. 6. Pulmonic valve: Trivial regurgitation, no stenosis. 7. Tricuspid valve: No evidence of stenosis, trivial regurgitation. 8. Pulmonary artery: PA pressures within normal range, 25 to 30 mmHg. 9. Pericardium: No significant pericardial effusion. Cardiac catheterization not completed. CT chest not completed. I personally reviewed the above-noted labs and images. STS PREDICTION CALCULATION PROCEDURE: Mitral valve replacement only. 1. Risk of mortality 4%. 2. Morbidity or mortality 30.6%. 3. Long length of stay 28.6%. 4. Short length of stay 9.8%. 5. Permanent stroke 0.89%. 6. Prolonged ventilation 25%. 7. Deep sternal wound infection 0.26%. 8. Renal failure 8.55%. 9. Reoperation 10.599%. ASSESSMENT: Ms Ish Orellana is a 27-year-old WF who has not been very compliant with the medical care or personnel thus far at [facility] who has a history of hepatitis C untreated, depression, anxiety, history of intravenous drug abuse who is on methadone maintenance therapy who was seen in consultation for: 1. Bacterial endocarditis of the mitral valve with severe mitral regurgitation. The patient gives a history that this may have been occurring for the last 2 weeks at home, and she has a purpuric rash on her upper and lower extremities. She is hemodynamically stable on room air with no evidence of pulmonary edema on exam or by x-ray imaging. The patient just presented to the hospital the day before yesterday and has not had full speciation from her blood cultures, and she has been afebrile without any evidence of embolic phenomenon. At this point, endorse drawing blood cultures and providing culturespecific antibiotics and appreciate infectious disease consultation. Would recommend given the patient's left-sided vegetation and intermittent alertness during this encounter today imaging of the brain via MRI or a noncontrasted CT as well as a CT of the chest. Ideally, the patient should have negative bacterial cultures and receive a full course of treatment prior to replacement of the valve. Given the location of the vegetation at the base of the posterior leaflet on the atrial side unlikely that the patient's anatomy would be conducive to a repair with excision of the diseased leaflet. In preparation for surgery, the patient should have a dental evaluation and cl earance, i.e., extraction of any diseased teeth now or ones that would be anticipated to be a problem within the next 3 months. It is unclear at this point whether the patient would tolerate a course of IV antibiotics as the severity of her mitral regurgitation is not clearly elucidated. She was due to have a KRISTOPHER exam today; however, this has been moved until tomorrow. 2. Immune compromised state with active infection. The patient has a history of hepatitis C and her results just came back positive today for also being human immunodeficiency virus positive. It is unknown whether or not the patient is aware of this. However, in speaking with the primary team, the plan is for the infectious disease consultants to discuss this with the patient. In light of this, I would also recommend the patient be tested for tuberculosis. I did discuss with patient the choice of mitral prosthesis, of tissue and mechanical, as well as theadvantages and disadvantages of both; namely the durability and difference in anticoagulation between the two. At this point, the patient was unable to define which valve she would prefer and would like to have the discussion again with her mother, who was not present at bedside at the moment. I did provide my card with contact information to the patient and encouraged her to share that with her mom so that we may discuss her current status, implications of her disease, the risks, benefits and alternatives of surgery, as well as prosthesis choice. Thank you very much for allowing me the opportunity to participate in this patient's care. We will continue to follow with you and appreciate the primary team moving forward with the recommended imaging studies. Risk factors augmenting Medical Decision making complexity X Tobacco DM; Elev HgbA1c NSTEMI/ STEMI Porcelain Aorta Emergency High-risk surgery x Amount of Complexity of Data COPD / Home O2/ emphysema x Obesity Low EF/ CHF Liver Disease; TOBIN; Cirrhosis REDO; 2nd operation x Independently reviewed images CAD/PCI Obst Sleep Apnea (ANDREE) Elevated BNP / ProBNP cancer SHOCK Rvwd old records and/or d/w another provider X EtOH; Drug abuse Family Hx- 1st degree Strong X Valvular heart disease X Immune- Compromised / Steroids D/w perf physician, tests Decision to obtain old records and/or obtain hx from other than pt JEAN CLAUDE; CKD; dialysis Bleeding d/o NOS Chronic Anticoagulation Cognitive impairement / Dementia X Management Options x rvw an/or order medical tests: PFTs etc PVD HTN Atrial fibrillation Frailty Palliative Surgery x rvw an/or order imaging: CT TIA / CVA HLD Pulm HTN Malnutrition/ Albumin <3.3 Hypercoagulable x Review and/or order of clinical labs 05 28 PM / Britany Dumont MD cn Confirmation: [id number] Dictation ID: [id number] mith, Carrie Larose MD - 12/07/2017 1732 EDT Infectious Disease Consult Note Admit Date: 12/07/2017 Date of Service: 12/07/2017 Requesting Physician: Dr. Padilla Reason for Consult: GPC bacteremia, MV vegetation HPI: Ms. Orellana is a 27 y/o F with a PMHx significant for IVDU (reports last using IV cocaine and heroin years ago), chronic hepatitis c virus infection (dx 10 years ago), who was transferred to the [facility] from [facility] for further medical and possible surgical evaluation for endocarditis. Ish reports she first started to feel ill about a month ago. At that time she developed a red rash on her legs. Rash was small red dots. This progressed to fatigue, sore feet, drenching night sweats, and shortness of breath. She reports due to being ill she has been unable to get out of bed. She was seen by her PCP on 12/06/17 and sent to the [facility] due to symptoms, rash, and fever in the clinic. Evaluation at [facility] revealed new murmur on physical exam. She had a RUQ ultrasound whichrevealed a hypodensity in the spleen. She had a TTE which showed a 88u84mm vegetation on the MV and severe MR. By report, blood cultures are growing GPCs. She was given vancomycin + cefepime. Due to severity of MR, she was transferred to [facility]. This afternoon Ish reports she is feeling a bit better, though very stressed about hospitalization. She reports to me that she has not used IV drugs in 3years, but does take methadone daily. She denies ever having an infection from IVDU. She reports that her 7 remaining teeth are sore and would like them removed. She denies headache, vision changes, back pain, dysuria, loss of bowel or bladder function. She does report a 50+lb weight loss in the past year. Ish's mom asked to speak with me separately. Ish's father from endocarditis 8 months ago. Mom is concerned that Ish has started using IV drugs again but does not know for sure. Review of Systems: A ten point review of systems was performed and positive per HPI, all other systems negative. Past Medical History: has a past medical history of Hepatitis C. Past Surgical History: none Medications: MAR reviewed. Anti-infectives: Vancomycin 12/06 - Cefepime 12/06 - Allergies: Review of patient's allergies indicates no known allergies. Family History: father from endocarditis Social History: Lives with boyfriend, sexually active, use condoms Smokes cigarettes and marijuana daily No IVDU in 3 years No recent travel Pet cat, but no recent bites or scratches Per [facility] notes, Ish has 4 children, but they do not live with her Vital Signs: BP 136/86 Temp 36.4 ??C (97.5 ??F) (Tympanic) Ht 172.7 cm (68) Wt 97 kg (213 lb 13.5 oz) SpO2 99% BMI 32.52 kg/m2 Exam: Head/Neck: NC, AT, EOMI, anicteric sclera, no conjunctival petichiae or hemorrhage. Poor dentition of 7 remaining mandibular teeth Heart: RRR 2/6 systolic murmur at LSB Lungs: CTAB Abdomen: soft, NT, ND, +BS Back: Right CVA tenderness. No spinous process tenderness : no garcia Lymph Nodes: No cervical or supraclavicular LAD Skin: diffuse petichial rash on arms and leg. Separate more purple colored rash on right lower leg and right arm. Tattoos on right upper arm and left upper chest. Musculoskeletal: No joint effusions Extremities: warm, trace BLE edema Neuro: cn ii-xii grossly intact Catheters: PIV Data Review: Laboratory data reviewed. Pertinent positives include: Labs: @[facility] 12/06/17 WBC 5.91 Hb 7.3 Plt 176 ASt 39 ALT 11 T bili 1.29 LDH 392 12/07/17 WBC 3.46 Hb 6.3 Plt 105 Cr 0.77 UA: +blood, +bacteria @[facility] 12/07/17 Cr 0.65 T bili 1.7 AST 40 ALT 25 WBC 4.62 Hb 8.8 Plt 145 Microbiology: @[facility] - I attempted to reach laboratory at [facility] on 12/07/17 at 5:45pm, but no answer 12/06/17 Radiological Studies: I have independently visualized the CXR - no infiltrates @[facility] 12/07/17 RUQ ultrasound: 8mm hypoechoic lesion in spleen, hepatic steatosis, gallbladder sludge 12/07/17 TTE: [id number] vegetation on MV, severe MR 12/06/17 EKG: GA 202, QTc 404 Assessment: 1. GPC bacteremia with concern for endocarditis. I attempted to call [facility] lab to clarify blood culture results, but no answer. Will try again in the morning. Would continue vancomycin and cefepime for now until ID of organism in blood is known. Would be worried about skin and oral farhana as culprit organisms. Meets Madsen criteria for endocarditis. 2. Mitral valve vegetation with severe MR by TTE performed at [facility] - CT surgery to see patient 3. Anemia: Suspect hemolytic due to large vegetation, though recent baseline unknown. 4. Poor dentition - may be reason for bacteremia 5. History of IVDU, currently taking methadone 6. Chronic hepatitis C virus infection - patient reports PCP is attempting to treat her. Would wait to treat until endocarditis is treated. 7. petechial rash - likely secondary to endocarditis Recommendations: Continue vancomycin 15mg/kg IV q 12 hours Goal trough 15-20 Continue cefepime 2g IV q 8 hours KRISTOPHER to evaluate for perivalvular abscess HIV Ab with next blood draw Urine test Ok to hold on further blood cultures for now CT surgery consult Follow up blood cultures from [facility] Discussed with primary care team Carrie Parrish MD 12/07/2017 17:32 documented in this encounter OR Notes OR Surgeon - Britany Dumont MD - 12/20/2017 0000 EDT OPERATIVE REPORT SERVICE DATE: 12/20/2017 PREOPERATIVE DIAGNOSES: 1. Endocarditis, mitral valve 2. Severe mitral valve regurgitation with left atrial phlegmon. PROCEDURE: On pump mitral valve replacement with a [address] [place]ebeto Epic tissue valve. Reference [id number]. Serial number [id number]; date of expiration 04/08/2021. POSTOPERATIVE DIAGNOSES: 1. Endocarditis, mitral valve enterococcal. 2. Severe mitral valve regurgitation with left atrial phlegmon. SURGEON: Britany Dumont MD [employer] SPECIALIST: Mildred WHITTEN (assisted in surgery, as there was no qualified resident available) ANESTHESIA: GETA, Chad R Pace MD FINDINGS: 1. Airway: No significant issues with intubation. 2. Aorta: No valvular dysfunction, soft without hard palpable plaque. 3. Valves: Mitral valve with severe mitral valve regurgitation on preop KRISTOPHER. Vegetation on anterior and posterior leaflet. Left atrial vegetation on the left atrial posterior wall. No annular abscess. Once leaflet examined under direct visualization, vegetation with perforation appreciated. No erosionof left atrial lesion into endocardium. Prosthetic valve seated well without any paravalvular leak. Mean gradient of 2 mmHg, peak gradient 6 mmHg. 4. Function: Preserved pre and post. 5. Rhythm: Sinus rhythm, pre and post bypass; Augmented with AV pacing. 6. Pericardium not closed DRAINS: Right and left pleural Blakes, mediastinal straight and angled hard tubes. WIRES: Two A's and 2 V's. INDICATIONS: Ms Orellana is a very pleasant but unfortunate 27-year-old WF who has a history of hepatitis C, drug abuse on methadone maintenance, who presented approximately 10 days ago with a lower extremity and upper extremity rash as well as fever. On further workup, the patient was found to have endocarditis of her mitral valve as well as a left atrial sessile vegetation on her posterior wall. The patient underwent full evaluation and had preserved ejection fraction. There was concern that the vegetation eroded into the left atrial wall. She did not have cardiac cath. She did have a CT of the chest and a CT of the maxillary area. She did have dental caries, but no abscesses. Her CT of the chest went low enough to also discovered that she had splenic abscesses. The patient had cleared her cultures and continues to be on dual antibiotic therapy of ampicillin, gentamicin and due to the fact that she had an embolization within the last week to her finger as well as severe MR, though without hemodynamic compromise, I discussed with her the risks, benefits and alternatives to surgery. We discussed the need for mitral valve replacement and choice of prosthesis as well as the advantages and disadvantages of both; this discussion was also had with her mom. There was disagreement between the patient and her mother in that the patient preferred to have a tissue prosthesis and the mother preferred themechanical due to longevity; however, patient voiced that she could not with 100% reassurance complywith the anticoagulation regimen. Others risks discussed of surgery included but were not limited tobleeding, need for reexploration, infection (including pneumonia, wound, UTI), scarring, injury to nerves, pain, renal dysfunction, need for pacemaker, bypass, stroke and . The patient voiced understanding and consented for the operation listed above. NARRATIVE: After informed consent was verified on the chart and the patient also verified her choiceof prosthesis, she was brought back to the operating room where all hemodynamic monitoring devices were placed. She did undergo a repeat urine beta hCG, which was negative for . A time-out, verifying the patient and procedure were verified out loud by all prior to further preparation. She once again also verified that she wished to have a tissue prosthesis. She underwent smooth induction of general endotracheal anesthesia, infusion of perioperative antibiotics, placement of a Garcia catheterand a KRISTOPHER probe all without difficulty. Once we had verified that the vegetation of her left atrium did not grow into the endocardium, we proceeded further. She had an uncomplicated placement of a right IJ central line and then she was prepped and draped in the usual standard sterile fashion. Of note,she did already have a right PICC line. After a midline sternal incision was made, this was followed by an uncomplicated sternotomy. The pericardium was opened and there was no significant evidence of contaminated pericardial fluid. Attention was then directed at cannulation of the aorta and SVC for bicaval cannulation. A 24 aortic cannula was used and a 28 right-angle tip was used in the SVC. We resumed cardiopulmonary bypass, as her ACT was greater than 500 with 1 venous cannula. Thereafter, I placed a second venous cannula in the IVC. LV vent was placed, followed by an aortic root vent. We achieved cold diastolic arrest of the heart using antegrade cold [facility] cardioplegia after the ascending aorta cross clamp was placed. Thereafter, Sondergaard's groove was developed and I entered into the left atrium. The Kiah retractor was used and I was able to visualize the left atrial vegetation as well as a vegetation on the mitral leaflet. The left atrial vegetation did not erode into the endocardium and was able to be removed with an epicardial dissection. Thereafter, the leaflets were excised and the annulus was inspected in its entirety and there was no evidence of annular abscess. I then placed A to Vcircumferential 3-0 pledgeted Ethibond sutures. The annulus sized to a 29 mm Epic valve. These were then passed through the valve annulus and, once it was seated, they were secured using the Cor-Knot grommet device. There were 19 sutures and grommets used. We tested the valve for functionality and this functioned well. A dental mirror was also used to visualize the aortic valve and this was intact. The left atrium was then closed using a running 4-0 Prolene suture. Thereafter, de-airing maneuvers were performed; CO2 had been used during the case to insufflate the field. The patient was placed in steep Trendelenburg position and then the cross clamp was removed under low-flow cardiac bypass. She ultimately resumed sinus rhythm without the need for defibrillation and under KRISTOPHER, we tested the valve as well as look for intracardiac air and aortic valve function. Both valves worked very well. There was no paravalvular leak. There was no AI and there was no LV air. The LVvent was then removed and oversewn with a 4-0 pledgeted suture. Subsequently, her aortic root vent was removed and this was oversewn with a 4-0 pledgeted suture. The patient was then gradually weaned from cardiopulmonary bypass. Her SVC cannula was removed and this was oversewn with a 4-0 pledgeted suture. Of note, I did remove the initial pursestring and interrogated this site to ensure that both her PICC line and central line were not at the place at cannulation. We appreciated that the aortic root vent site still needed assistance with hemostasis and therefore, 2 more pledgeted sutures were usedat that time. The IVC site cannula was also removed and the site and was secured down with the initial pursestring and then oversewn with 4-0 pledgeted suture. Two V's and 2 A's were placed and found to function properly. The aortic cannula was removed and protamine had been administered. She had hemostasis once the pursestrings were tied down from the aortic cannula site and oversewn with 4-0 pledgeted suture. Two Vikash drains were placed in either chest and then an angled and straight hard tube were placed in the mediastinum. The pericardium was not closed. The chest was closed with single wires in the manubrium, followed by double wires in the body of the sternum. The wound was irrigated with vancomycin saline and then closed in a standard 3-layer fashion. A support bra was also placed and patient was transferred to the ICU in stable condition. Unless otherwise noted, there were no complications, no blood loss, no cultures obtained, no specimens removed, and no drains retained. Britany Dumont MD 04 22 PM / Britany Dumont MD cn Confirmation: [id number] Dictation ID: [id number] documented in this encounter Miscellaneous Notes Plan of Care - Saeid Hyman RN - 12/30/2017 1559 EDT Problem: High Fall Risk: Goal: Patient will Remain Free of Falls due to Med. Side Effects Outcome: Completed Date Met: 12/30/17 No falls during stay. Problem: High Fall Risk: Add only for + Hendrich score - Add only risk factors indicated by assessment Goal: Patient Will Remain Free from Fall-Related Injury Outcome: Completed Date Met: 12/30/17 Problem: High Fall Risk: Goal: Patient will Remain Free of Falls due to Altered Mobility Outcome: Completed Date Met: 12/30/17 Problem: Safety: Module scope: For the purpose of this module, the definition for restraint comes from the Medicare and Medicaid Programs; Hospital Conditions of Participation. A restraint is any manual, physical, or mechanical device, material, or equip ... Goal: Complications related to restraint use will be avoided or minimized Outcome: Completed Date Met: 12/30/17 Problem: High Fall Risk: Goal: Patient will Remain Free of Falls due to Altered Elimination Outcome: Completed Date Met: 12/30/17 Problem: SKIN INTEGRITY Goal: Skin integrity will improve or be maintained Outcome: Completed Date Met: 12/30/17 Problem: Pressure Ulcer Prevention Goal: Absence Of Pressure Ulcer Outcome: Completed Date Met: 12/30/17 No skin breakdown or ulcers. Problem: Risk For Imapaired Skin Integrity Goal: Incontinence Is Managed Outcome: Completed Date Met: 12/30/17 Problem: Impaired Skin Integrity Goal: Signs of wound healing will improve Outcome: Completed Date Met: 12/30/17 Problem: Daily Care Plan Goals Goal: Care Plan Documentation Outcome: Met This Shift 12/30/17 0952 Care Plan Focus Area of Focus Pain/ Comfort Goal This Shift Patient will report pain is well controlled Discharge Note D - Patient is 27 y.o. F POD#10 s/p MVR following admission for bacterial endocarditis. Hep C+, Hx IVDU, smoker, reports bipolar Dx. VSS, ANOx3, voiding/stooling, independently ambulating. Ordered for transfer today. A - Meds per NOV. Patient updated by team of necessity to complete 6 weeks of IV abx as inpatient. Patient agreed to transfer to [facility]. Prepped for transfer. R - Patient questions reviewed and addressed prior to discharge. Patient reported pain and was medicated. Patient left the unit in a stretcher in stable condition with [facility]. No distress noted. Report given to Yakelin at [facility]. 12/30/2017 15:37 SAEID HYMAN RN nesthesia Post-Eval - Saurabh Rizzo MD - 12/30/2017 3438 EDT Anesthesia Post op Note Ish Orellana [id number] Anesthesia received: MAC; Vital Signs: Temp: 35.8 ??C (96.4 ??F), Heart Rate: 80 BPM, Pulse: 84, BP: 110/72, Resp: 16, SpO2: 100 % Vital signs Stable: Recovered to baseline Consciousness: Awake Patient's participation in evaluation:Able to participate Temperature Status: Normothermic Respiratory Status: Airway patent Supplemental O2: Nasal cannula Oxygen Saturation: Oxygen therapy optimized Cardiovascular Status: Stable Post-op Hydration: Adequate Nausea / Vomiting: None Pain Control: Adequate Current Pain Score: Numeric Pain Level (Scale 1-10): 8, Van-Kennedy Pain Rating (Scale 0-10): Hurts whole lot, Adult Nonverbal Pain ScaleTotal: 5 Post-op Assessment: Tolerated procedure well Disposition: Inpatient Complications: No apparent anesthetic complications Saurabh Rizzo MD 01/16/2018 7:58 lan of Care - Saeid Hyman RN - 12/29/2017 1938 EDT Problem: Daily Care Plan Goals Goal: Care Plan Documentation Outcome: Met This Shift 12/29/17 0914 Care Plan Focus Area of Focus Pain/ Comfort Goal This Shift Pain control Data: Patient is 27 y.o. F POD#9 s/p MVR. Reports pain at incision. Morning potassium 5.5. Action: Meds per MAR, labs per orders. EKG, IV lasix, dextrose/insulin, calcium gluconate given for elevated K+. Juice corrected low POC glucose of 57. Patient off unit x1 per verbal order from Dr. Dumont. Response: Final potassium draw 5.1. Reports pain controlled with prn meds. Continue to monitor. SAEID HYMAN RN 12/29/2017 19:32 lan of Care - Azalia Gill RN - 12/29/2017 5231 EDT Problem: Daily Care Plan Goals Goal: Care Plan Documentation Pain Note D - Pt is 27 y/o female s/p MVR. Pt in pain overnight at incisional site. A - Pain was assessed and treated with medication ordered as per orders. The pain management techniques were effective, evidenced by pt resting comfortably. Pt does utilize call pham q 3 hours for painmedication. Pt very upset about not being discharged yesterday, and advertising writer attempted to be an activelistener. Pt was tearful, though advertising writer was able to get across to pt that the MD care team is not her enemy but the team that has saved her life and is looking out for her future. She states she will try to not let her emotions take over when communicating with hospital staff. R - Further intervention is needed. Will continue to assess and treat pain levels as per policy and prn. 12/29/2017 7:48 Azalia Gill RN lan of Care - Maria Elena Kaye RN - 12/28/2017 1106 EDT Problem: Daily Care Plan Goals Goal: Care Plan Documentation 12/28/17 0810 Care Plan Focus Area of Focus Psychosocial Goal This Shift monitor behavior Data: Pt's emotional state escalated to shouting, screaming, swearing, and crying for well over an hour as her Team explained to her that she would be unable to return home as planned due to home care Issues. Action: Numerous attempts made by advertising writer and Team to calm patient down as it was explained to her the reasons for the change in plans. Response: Pt stated she was upset mainly because she believed she was lied to regarding several aspects of the home care that she was promised. Instead, pt will most likely need to remain hospitalized during the remainder of her treatment. Pt did settle down and become less verbal and upset, although she maintains her position and states she will take the matter further. Maria Elena Kaye RN 12/28/2017 19:50 lan of Azalia Canales RN - 12/28/2017 0516 EDT Problem: Daily Care Plan Goals Goal: Care Plan Documentation Pain Note D - Pt is 27 y/o female POD#8 S/p MVRThe patient reported pain. The reported pain location was midsternal/rib pain. A - Pain was assessed and treated with medication ordered as per orders. The pain management techniques were effective, though only short-term. Pt requires q 3 hour pain intervention. R - Further intervention is needed. Will continue to assess and treat pain levels as per policy and prn. 12/28/2017 5:09 Azalia Gill RN lan of Care - Maria Elena Kaye RN - 12/27/2017 8332 EDT Problem: Daily Care Plan Goals Goal: Care Plan Documentation 12/27/17 0844 Care Plan Focus Area of Focus Pain/ Comfort Goal This Shift monitor pain and treat Data: Pt with continuous pain due to MVR. Morphine MANAGER DRUG SAFETY pump ordered until this shift. Action: Pt's pump removed at 0900. MSIR given several times this shift with scheduled Tylenol. Response: Pt has stated pain relief with PO MS04 yet pain persists. Managing her pain well while doing ADL.s Maria Elena Giambatista, RN 12/27/2017 18:57 lan of Divya - Nila Bautista RN - 12/26/2017 3545 EDT Problem: Daily Care Plan Goals Goal: Care Plan Documentation Data: Pt POD#6 s/p on pump tissue MVR. Pt has Morphine Q3 hours ordered PRN. Pt went 5 hours betweendoes this evening. Used MANAGER DRUG SAFETY minimally in that time as well. S/o discussed the benefit of taking hermind off her pain in order to lesson the need for opoid pain management. ?? Action: Pt discussed losing her father and step mother to opoid dependency- and her relapse after 4 years of sobriety. Response: Encouraged pt that she is doing well so far on her hospital course. Pt ambulating halls and spending time in solarium. Nila Bautista RN 12/26/2017 22:44 lan of Care - Kimberly Hatch RN - 12/26/2017 3513 EDT Ambulation Note D - This is a(n) 27 y.o. female S/P tissue MVR This is post-op day 7 for the patient. The patient is ordered for progressive ambulation. A - The patient was ambulated 160 ft feet in the hallway with HEAD HOUSEKEEPER, just supervision. R - The patient displayed some moderate pain at the incision, goal to walk once more this evening. Pain moderate today, using IV MANAGER DRUG SAFETY demand doses less. Will continue to encourage activity as ordered and tolerated. 12/26/2017 14:54 Kimberly Hatch RN lan of Osmin Og RN - 12/25/2017 2283 EDT Problem: Daily Care Plan Goals Goal: Care Plan Documentation Outcome: Ongoing 12/25/172014 Care Plan Focus Area of Focus Pain/ Comfort Goal This Shift Patient will report adequate pain control Data: Patient c/o moderate to severe pain and uses her MANAGER DRUG SAFETY pump for pain control but is given PO Morphine q3 hours for pain control. Action: Patient reports feeling relief from nausea after taking IV Zofran. Patient requested to be woken up for pain medication. Response: Patient continues to receive her scheduled antibiotics and verbalizes understanding of plan of care. Her boyfriend is staying at bedside overnight. Osmin Loyola RN 12/25/2017 23:31 lan of Care - Mary Espino RN - 12/25/2017 1311 EDT Problem: Daily Care Plan Goals Goal: Care Plan Documentation Outcome: Ongoing 12/25/17 0809 Care Plan Focus Area of Focus Mobility Goal This Shift encourage OOB Data: Patient POD # 5 cardiac valve surgery Action: Assisted and encouraged patient to use IS every hour while awake. Pain controlled with MANAGER DRUG SAFETY and Ketamine. Occasional request for PRN Morphine. Educated patient on importance of IS and ambulation. Response: Patient complaint with care, but needs reminding and encouraging. Will continue to monitor. Mary Espino RN 12/25/2017 13:08 lan of Care - Silvia Dudley RN - 12/25/2017 0805 EDT Problem: Daily Care Plan Goals Goal: Care Plan Documentation Outcome: Ongoing at Discharge Date Met: 12/25/17 12/24/171957 Care Plan Focus Area of Focus Pain/ Comfort Goal This Shift pain will be adequately managed Pain Note D - The patient reported 8-10 pain. The reported pain location was incisional and generalized. On Ketamine gtt, on Morphine MANAGER DRUG SAFETY, Morphine IR Q3h PRN, etc (see MAR). 2nd unit of RBC running. Needs post-op BM, passing flatus. A - Pain was assessed and treated with medication ordered as per standards of care. The pain management techniques were just mildly effective. Pt wants to be woken up for Morphine IR. Completed RBC transfusion w/o reaction. Taking BM meds and prune juice. R - Will continue to assess and treat pain levels as per policy and prn. CTM. 12/25/2017 8:00 Silvia Dudley RN lan of Meredith Joradn RN - 12/24/2017 0414 EDT Problem: Daily Care Plan Goals Goal: Care Plan Documentation Outcome: Ongoing 12/23/17 1935 Care Plan Focus Area of Focus Pain/ Comfort Goal This Shift Pain management D-Patient is POD#4 s/p MVR. Vitals stable, NSR with 1st degree HB on tele, room air, drowsy/orientedx3. Patient reports 8-10:10 incisional pain and 9-10:10 lower abdominal pain this shift. Garcia in place at start of shift. Ketamine gtt infusing @ 1mL/h. Requiring hourly IV morphine at start of shift. A-Spoke with MD about pain management, patient ordered for morphine MANAGER DRUG SAFETY. MANAGER DRUG SAFETY started per NOV, reviewed use with patient. UA collected per order. Garcia removed, patient DTV @ 0400. MD notified about increasing abdominal pain, NPO with sips. R-Patient continues to report significant pain despite interventions. No void, scanned for 144mL. Stable and resting comfortably. Will continue to monitor. lan of Care - Arthur Norman RN - 12/23/2017 1454 EDT Data: POD #3 From MVR. Stood at bedside this shift. C/o large amounts of pain. Chest tubes d/c'd by provider. Action: Medicated with PO and IV morphine. Response: Will briefly fall asleep following IV morphine, but does wake stating 10/10 pain. Informedher multiple times that increase in mobility will decrease her pain overtime. Pt refused to have cordis removed at this time states i've had to much today. Provider aware. Arthur Norman RN 12/23/2017 14:54 lan of Care - [place] - 12/23/2017 1335 EDT Problem: Daily Care Plan Goals Goal: Care Plan Documentation Outcome: Met This Shift 12/23/17 0807 Care Plan Focus Area of Focus Pain/ Comfort Goal This Shift pt pain will be managed Data: pt POD3 mitral valve replacement with dx of severe mitral regurg & endocarditis, pt hx IVDU, hepC, HIV+ antibodies. Full code status. C/c pain generalized: incision site, abd, lower back, everywhere. Compliant with care, somewhat agitated when in pain, often tearful. Partner Alex in room, participatory. Garcia cath draining, urine yellow/sugar. Resp shallow, lung sounds clear, tachypneicwhen in pain/methadone is due. Rests comfortably following pain med administration. Action: education re: endocarditis patho, post op mobility risks. Assist to dangle x1 per pt request, back care provided. Unable to tolerate full bed bath. PRN morphine x3 for 10/10 pain, monitored forsedation. Stood x2 assist 1300, fairly tolerated. Blood collected for labs via PICC (red). Response: d/c 1:1. Needs encouragement with mobility, turning, IS. Continue to monitor for sedation.Pt safe on unit. [place] 12/23/2017 13:19 lan of Isabelle Ceballos RN - 12/23/2017 0733 EDT Critical Value Note D - Patient has a low critical value for Hemoglobin of 6.0 and a Hematocrit of 18.8. A - Notified provider Ignacio Mcgraw. R - 1 unit of RBCs currently infusing. Pain medication orders modified overnight. See eMAR. CXray and CT scan this AM for HCT drop and to assess for intra-abdominal or splenic bleeds. 12/23/2017 7:32 Isabelle Gamble RN lan of Isabelle Ceballos RN - 12/22/2017 0558 EDT Data: Pt is POD#2 s/p MVR 29mm [facility] Epic. Pt drowsy and oriented to person, place, and time (2017and Wednesday for date yesterday). Pt has a MANAGER DRUG SAFETY and ketamine infusing. Continuous encouragement and MANAGER DRUG SAFETY education is needed as the often does not press her MANAGER DRUG SAFETY button. Pt was not utilizing MANAGER DRUG SAFETY button at start of the shift. NSR in the 80's with a st degree AVB on tele. Action: IV morphine, PO dilaudid, and acetaminophen administered in addition to continuous infusions. Provider and APS notified of Pt's lack of MANAGER DRUG SAFETY utilzation. APS recommending PRN boluses but not basal dosing. Provider notified of recommendations. Emotional support, education, and encouragement provided when pt interactive. Turns and repositioning to maintain skin integrity. Response: Pt reporting that pain is alright this AM but pt continues to yell out ow repeatedly. Pt confused as to why she moved to a different room. Reoriented pt to why she was transferred. Currently resting comfortably and per 1:1 sitter the pt has been pressing her MANAGER DRUG SAFETY this AM. Pt's boyfriend is on the unit and resting in the solarium overnight. Spoke with Pt's mom Nataly this AM. She would like Dr. Dumont to call her this AM with updates about plan of care@ Isabelle Gamble RN 12/22/2017 5:58 nesthesia Post-Evsamuel - Mo Rush - 12/21/2017 0907 EDT Anesthesia Post op Note Ish Orellana [id number] Anesthesia received: General; Vital Signs: Temp: 36.6 ??C (97.9 ??F), Heart Rate: 96 BPM, Pulse: 80, BP: 120/80, Resp: (!) 38, SpO2: 98 % Vital signs Stable: Yes Consciousness: Awake Patient's participation in evaluation:Able to participate Temperature Status: Normothermic Respiratory Status: Airway patent Supplemental O2: Nasal cannula Oxygen Saturation: Appropriate for condition Cardiovascular Status: Appropriate for condition Post-op Hydration: Adequate Nausea / Vomiting: None Pain Control: Adequate Current Pain Score: Numeric Pain Level (Scale 1-10): 10, Van-Kennedy Pain Rating (Scale 0-10): Hurts whole lot, Adult Nonverbal Pain ScaleTotal: 0 Post-op Assessment: Tolerated procedure well Disposition: Inpatient Complications: No apparent anesthetic complications Mo Rush 12/21/2017 9:07 lan of Care - Erika Chen RN - 12/20/2017 1833 EDT Problem: Daily Care Plan Goals Goal: Care Plan Documentation Outcome: Ongoing 12/20/17 1522 Care Plan Focus Area of Focus Circulatory Status Goal This Shift Stable hemodynamics Data: Pt s/p MV replacement r/t endocarditis/IVDU. Pt intubated, sedated on Propofol. Stephanie infusing on arrival to maintain MAP>60. AV wires- dual pacing at rate 70. [address], 2 pleural Vikash's. 2L given intra-op, 1 u PRBC's. Pt with known low threshold for pain, poor coping skills. APS consulted to assist in pain control. Action: Monitor VS, I+O's. Goal MAP>60, SBP<130. Response: BP stable on Stephanie at 40 mcg/min. 500 ml Plasmalyte bolus x1. UOP adequate. CT output ~30-40ml/hr. Pt transitioned off Propofol to Precedex and Ketamine. APS rec Dilaudid MANAGER DRUG SAFETY- awaiting order and willinitiate upon pt awakening. Erika Chen RN 12/20/2017 18:24 rief Op Note - Mildred Montes PA - 12/20/2017 0814 EDT Cardiothoracic BRIEF OP NOTE 12/20/2017 Ish Orellana [id number] Alex Bliss Pre-op diagnosis: Mitral insufficiency Endocarditis IVDA Procedure: On Pump Mitral valve replacement [address] [place] Epic Post-op diagnosis: Same Surgeon: [x ] Lorene Dumont MD Clinical Systems Educator: Mildred Montes PA-C Due to a lack of a qualified energy operations vice president, FISH Cui provided first assistance for this complex cardiac surgical procedure. Anesth: GET Attending Pace, MD Findings: Vegetation on atrial wall and leaflets. Hole in MV leaflet noted due to infection FLUIDS: Blood Products Crystalloid UOP 500 cc pump blood [ x]PRBC 1 units 2000 cc LR 1150 cc Pump Time: 180 min Clamp Time: 134 min Low Temps: Systemic 28 degrees C Material Retained: Chest Tube(s) Wires: Currently Pacing: [X] Garcia [X] Cordis [ ] SWAN [X] A-Line [ ] IABP [x ]Mediastinal 36 Setswana [x ] Mediastinal 28 Fr right angle chest tube [x ] Left pleural 24 Vikash [x ] Right pleural 24 Vikash [ ]atrial [ ] ventricular [x ] both [x ]yes [ ] no Specimen: MV leaflets and vegetations Cultures: none Sponge & Needle count correct [x ] Complications: none [x ] Category: [x ] clean, [ ] clean/contaminated, [ ] contaminated, [ ] dirty/infected Dispo: to SICU, intubated FISH Allen lan of Care - Wendie Smith RN - 12/20/2017 0313 EDT Problem: Daily Care Plan Goals Goal: Care Plan Documentation Outcome: Ongoing 12/20/17 0211 Care Plan Focus Area of Focus Circulatory Status Goal This Shift VSS D: Pt admit for MV endocarditis. Pt A&Ox3, denies SOB, headache, and nausea. Pt in NSR with intermittent 1st degree AVB with HR 70-90s. Pt c/o 10/10 R leg pain. A: Meds administered (See MAR). Heat, elevation, and Robaxin for leg pain. Assessment per protocol. Maintained PICC. Clustered care to promote rest. R: Pt NPO for MVR 12/20. Pt resting comfortably in bed. Continue to monitor. Wendie Smith RN lan of Divya - Christiane Bonilla RN - 12/19/2017 1843 EDT Problem: Daily Care Plan Goals Goal: Care Plan Documentation Outcome: Ongoing 12/19/17 0802 Care Plan Focus Area of Focus Circulatory Status Goal This Shift VSS D: Pt A+Ox3, VSS. HR NSR on telemetry. Lungs clear, pt denies CP/SOB. C/o RLE pain, CSMTs intact. A: Assessments performed and medications given as charted, PRN tylenol and scheduled robaxin given for leg pain. R: Pt resting in bed, occasionally leaving floor with SO or Mom, following all policies. Will continue to monitor. lan of Care - Christiane Bonilla RN - 12/18/2017 1719 EDT Problem: Daily Care Plan Goals Goal: Care Plan Documentation Outcome: Ongoing 12/18/17 1508 Care Plan Focus Area of Focus Pain/ Comfort Goal This Shift adequate pain control D: Pt A+Ox3, VSS. HR NSR 70s on telemetry, lungs clear. Pt denies CP/SOB. Pt c/o of known RLE pain, CSMTs intact. A: Assessments performed and medications given as charted. PRN tylenol and scheduled robaxin given for leg pain. R: Pt resting in bed most of shift, going outside occasionally accompanied by SO and following all procedures. Will continue to monitor. lan of Care - Sonja Lawler - 12/17/2017 1626 EDT Problem: Daily Care Plan Goals Goal: Care Plan Documentation Outcome: Not Met This Shift Data: Assumed care at 0700, pt is A+Ox3, independent out of bed, NSR on tele HR 80s, SBP 120s, denies chest pain, dizziness and SOB on room air, lungs are clear. Pt tearful and complaining of 10/10 pain in her right leg the entire day, heat applied per MD recommendation and tylenol administered, leg does not look red or feel warmer to touch, right foot pulse is present. Pt went for an ultrasound of the leg which came back unremarkable. Action: Medicated pt per NOV and provided emotional support to help deal with the pain in the leg, MD paged about pain and waiting for callback. Response: Pt is sitting in her bed and crying, waiting for MD to call back. Sonja Lawler RN 12/17/2017 16:22 lan of Divya - Rachelle Larose RN - 12/16/2017 1900 EDT Problem: Daily Care Plan Goals Goal: Care Plan Documentation Outcome: Ongoing 12/16/17 0830 Care Plan Focus Area of Focus Circulatory Status Goal This Shift vss D- assumed care of pt at 0730. Pt admitted with endocarditis and learned this morning that she will need to undergo a valve replacement. Hx of IVDU, PICC in place. Pt extremely anxious and requesting ativan. A- Md paged and med order received. Reviewed IVDU conduct protocol/care plan with pt and her boyfriend Alex. They have been leaving the floor for about 10 minutes a couple times a day. Re-enforced importance of signing in and out at nurses station. Med psychology contacted for support and ongoing treatment. R- VSS, pt complaint with plan of care. CTM lan of Care - Harika Madrigal, PhD - 12/16/2017 1634 EDT Medical Psychology 12/16/17 We have received the consult for Ish and will plan to meet with her for an initial consult tomorrow (Wed), as soon as scheduling allows. Thank you. Harika Madrigal, Ph.D. Licensed Psychologist-Doctorate Clinical Senior Controls Engineer Pager #[phone] lan of Care - Maira Paz, MINDA - 12/16/2017 0050 EDT Problem: Daily Care Plan Goals Goal: Care Plan Documentation Outcome: Ongoing 12/15/172018 Care Plan Focus Area of Focus Pain/ Comfort Goal This Shift adequate pain control Data: Alert and oriented. Independent. Patient reports adequate pain control thus far this shift. Right 4th finger red and tender to touch, patient reports that it appears less swollen. 1*AV block. Denies SOB. Picc to right arm flushes well with good blood return. Action: Assessment as documented in flowsheets. Medicated per NOV. IV abx. Response: Patient currently resting in bed at this time, appears comfortable. Will continue to monitor. MAIRA PAZ RN 12/16/2017 0:47 lan of Divya - Mari Bush RN - 12/15/2017 1245 EDT Problem: Daily Care Plan Goals Goal: Care Plan Documentation Outcome: Ongoing 12/15/17 0732 Care Plan Focus Area of Focus Pain/ Comfort Goal This Shift pain level <5 Data: Pt reports improved pain after am methadone dose. Right hand ring finger with slight redness to tip, no swelling noted. Petechial rash to arms and legs improving. Action: Pt maintained NPO for KRISTOPHER this afternoon. Pt verbalizing multiple complaints about not beingable to eat. Much emotional support given. Pt going outside to smoke with boyfriend. Much emotional support given. Response: Awaiting KRISTOPHER. Cont to monitor. Mari Bush RN 12/15/2017 12:35 lan of Maira Ferrera RN - 12/15/2017 0101 EDT Problem: Daily Care Plan Goals Goal: Care Plan Documentation Outcome: Ongoing 12/14/17 1933 Care Plan Focus Area of Focus Pain/ Comfort Goal This Shift adequate pain control Data: Patient alert and oriented. Independent. NPO at midnight for possible KRISTOPHER. 1*AV block. Persistent pain to forth finger on right hand. Tip of finger is swollen, red and slightly purple in center. Patient appears to be very anxious and is tearful. Action: paged and came to bedside to assess patient. Emla cream at site. Encouraged patient to alternate heat and cold for comfort. An additional dose of ativan obtained. Tylenol given. Response: Patient currently resting in bed at this time, appears comfortable. Will continue to monitor. MAIRA PAZ RN 12/15/2017 0:56 lan of Divya - aMri Bush RN - 12/14/2017 1842 EDT Problem: Daily Care Plan Goals Goal: Care Plan Documentation Outcome: Ongoing 12/14/17 1836 Care Plan Focus Area of Focus Pain/ Comfort Goal This Shift pain level <5 Data: Pt with increased right hand ring finger pain this pm, 10/10 on pain scale. Finger with appropriate color, noted to be slightly swollen but very tender at the tip. Action: Dr. Mccarthy made aware of increased pain. Emla cream ordered and applied with poor initial relief. Pt requesting ativan for uncontrollable anxiety. Ativan 1 mg po given with good effect noted. IV antibiotics continued as ordered. Gentamycin peak and trough drawn today. Response: Improved pain noted with decreased anxiety. Cont to offer emotional support. Cont to monitor. Mari Bush RN 12/14/2017 18:37 lan of Care - Maira Paz RN - 12/14/2017 0135 EDT Problem: Daily Care Plan Goals Goal: Care Plan Documentation Outcome: Ongoing 12/13/17 1941 Care Plan Focus Area of Focus Circulatory Status Goal This Shift vss Data: Patient admitted for endocarditis. Alert and oriented. Independent. Pain to right ring finger,swollen, red with a purple center, and hard to touch. Denies SOB. Picc line to RUE, purple lumen notflushing. VSS. 1*AV block. Plan for IV abx. Action: Assessment ad documented in flowsheets. Medicated per NOV. Cathflo administered in purple lumen. Response: Patient currently resting in bed at this time, appears comfortable. Will continue to monitor. MAIRA PAZ RN 12/14/2017 1:32 lan of Jonah Gomez RN - 12/13/2017 1045 EDT Problem: Daily Care Plan Goals Goal: Care Plan Documentation 12/13/17 0800 Care Plan Focus Goal This Shift VSS Data: VSS. BP 130s, HR 80s-90s w/1st degree AV block. SPO2 >95% on RA and afebrile. C/o pain to Rring finger. Action: Continue to monitor VS. R ringer finger red, tender to touch, and slightly hardened. Ice provided and Tylenol administered. Response: VS continue WNL. Pt reporting pain improved w/ice, will continue to monitor. JONAH ARDON RN 12/13/2017 10:42 lan of Care - Natalie Piper RN - 12/13/2017 0428 EDT Problem: Daily Care Plan Goals Goal: Care Plan Documentation Outcome: Met This Shift 12/13/17 0300 Care Plan Focus Area of Focus Pain/ Comfort Data: BP 128/79 (BP Cuff Location: Left arm, Patient Position: Semi fowlers) Pulse 96 Temp 35.6 ??C (96.1 ??F) (Tympanic) Resp 18 Ht 172.7 cm (68) Wt 96.2 kg (212 lb) SpO2 99% BMI 32.23 kg/m2. Assumed care of pt at 1900. VSS, SR w/ 1st degree AVB on tele. Denies CP, SOB and dizziness. Admitted for IV abx for endocarditis. Reports improved rash. Action: Assessment as documented in flow sheet and medications given per NOV. Care clustered to promote rest. Response: VS remain stable, denies complaints. Will continue to monitor and document per protocol. Natalie Piper RN 12/13/2017 4:25 lan of Divya - Abigail Doe RN - 12/12/2017 0932 EDT Problem: Daily Care Plan Goals Goal: Care Plan Documentation Outcome: Ongoing Data: BP 133/85 (BP Cuff Location: Left arm, Patient Position: Sitting) Pulse 96 Temp 36.8 ??C (98.2 ??F) (Tympanic) Resp 16 Ht 172.7 cm (68) Wt 98.1 kg (216 lb 3.2 oz) Comment: bed SpO2 96% BMI 32.87 kg/m2 Assumed care at 0700. Pt very cheerful this am. NSR on tele. No complaints of pain this am. Lungs sounds clear. Body rash continues to improve. PICC line infusing. Action: Assessed pt and documented per protocol. Gave IV abx. Will draw Gent peak and trough this afternoon from PICC line. Encouraging pt to ambulate and shower this am. Response: Pt is happy with her level of improvement this am. Will continue to monitor. Abigail Doe RN 12/12/2017 9:22 lan of Care - Natalie Piper RN - 12/12/2017 0544 EDT Problem: Daily Care Plan Goals Goal: Care Plan Documentation Outcome: Met This Shift 12/12/17 0523 Care Plan Focus Area of Focus Sleep Data: BP 118/74 (BP Cuff Location: Left arm, Patient Position: Sitting) Pulse 96 Temp 36.8 ??C (98.2 ??F) (Tympanic) Resp 16 Ht 172.7 cm (68) Wt 98.1 kg (216 lb 3.2 oz) Comment: bed SpO2 96% BMI 32.87 kg/m2 Assumed care of pt at 1900. VSS, SR w/ AVB on tele. Denies CP, SOB and dizziness. Endorses 3/10 right arm pain s/p PICC line placement, declines interventions. Action: Assessment as documented in flow sheet and medications given per MAR. Care clustered to promote rest. Response: VS remain stable, denies complaints. Will continue to monitor and document per protocol. Natalie Piper RN 12/12/2017 5:40 lan of Divya - Abigail Doe RN - 12/11/2017 1207 EDT Problem: High Fall Risk: Add only for + Hendrich score - Add only risk factors indicated by assessment Goal: Patient Will Remain Free from Fall-Related Injury Outcome: Ongoing Data: BP 114/83 (BP Cuff Location: Left arm, Patient Position: Semi fowlers) Pulse 96 Temp 36.4 ??C (97.5 ??F) (Tympanic) Resp 18 Ht 172.7 cm (68) Wt 98.1 kg (216 lb 3.2 oz) SpO2 100% BMI 32.87 kg/m2 Pt AOx3. Independent with ambulation. Sinus rhythm on tele with a first degree AV block. PICC line placed this am. Pt agitated and teary post procedure complaining of immediate headache upon PICC placement. Leaving the floor for smoke breaks. Action: Assessed pt this am and documented per protocol. Gave IV abx per emar. Tylenol PO for headache. Clamshelled PICC access for outdoor breaks. Response: Pt is more awake and ambulatory today than yesterday. Areas of petechia improved from yesterday. Abigail Doe RN 12/11/2017 11:56 lan of Divya - Maddi Allen RN - 12/11/2017 0242 EDT Problem: Daily Care Plan Goals Goal: Care Plan Documentation Outcome: Ongoing 12/11/17 0000 Care Plan Focus Area of Focus Circulatory Status Goal This Shift VSS D: Assumed care of pt at 1900. Pt is A&Ox 3 ambulating independently. On tele SR with HR in the 80s. VSS. Pt c/o headache at 2100 but no other complaints this shift. Plan is for PICC placement and initiation of gentamycin. A: Q4 ampicillin, tylenol for headache, clustered care to promote rest. Communicated with MD Girard to clarify plan for PICC placement. R: Pt sleeping comfortably. Call light in reach. lan of Divya - Abigail Doe, MINDA - 12/10/2017 1245 EDT Problem: Daily Care Plan Goals Goal: Care Plan Documentation 12/10/17 0753 Care Plan Focus Area of Focus Communication Goal This Shift therapeutic conversations Data: BP 108/73 Pulse 96 Temp 36.2 ??C (97.2 ??F) (Tympanic) Resp 16 Ht 172.7 cm (68) Wt 100.5 kg (221 lb 8 oz) Comment: bed SpO2 97% BMI 33.68 kg/m2 Pt AOx3. Independent with ambulation. Here for endocarditis and abx treatment. Pt has petechiae all over body. Lung sounds clear. No complaints of pain. Many emotional issues today surrounding pt's boyfriend. Action: Sat with pt and listened to the story of her father's passing. Reassured pt that she was in the best place she could be right now. Gave IV abx Q4hr. Response: Pt having a very tearful afternoon. Threatened walking home in the snow to [facility]. Will continue to monitor. Abigail Doe RN 12/10/2017 12:20 lan of Care - Maddi Allen RN - 12/10/2017 0447 EDT Problem: Daily Care Plan Goals Goal: Care Plan Documentation Outcome: Ongoing 12/10/17 0203 Care Plan Focus Area of Focus Circulatory Status Goal This Shift VSS D: Assumed care of pt at 1900. Pt is A&Ox 3 ambulating independently. On tele SR/ST with HR in the 60s-100s. VSS. Pettechaie noted on all extremities. A: Administered medications per MAR. Clustered care to promote rest. R: Pt sleeping comfortably. Call light in reach. Mother called for update and she will be at the hospital at approximately 18:00 this evening. Pt does not want HIV lab result discussed with her until her mother is present. lan of Care - Bella Weller RN - 12/09/2017 1611 EDT Problem: Daily Care Plan Goals Goal: Care Plan Documentation Outcome: Ongoing 12/09/17 1549 Care Plan Focus Area of Focus Circulatory Status Goal This Shift vss Data: Assumed care of pt at 0700. Pt a/o x 3 and VSS. Pt c/o 8/10 generalized pain. Pt has bilat upper extremity and lower extremity rash with noted petechia. Action: pt sent to K[facility]STOPHER on tele w/ shoeblack. Pt unable to tolerate will require general anesthesia.Assessed pt per flowsheet and administered meds per eMAR. Pt declined pain intervention. MD Adrian and Audrey notified about pt's mother needing documentation for work, awaiting confirmation of fax. Response: pt very drowsy slept most of afternoon. Plan is for PICC line and abx. Will continue to monitor and assess appropriately. Bella Weller RN 12/09/2017 16:06 Treatment Plan - Carrie Parrish MD - 12/09/2017 0287 EDT Attempted to see patient, but she was asleep. I called the chemistry lab - HIV VL will be finished on 12/10/17. Ish's nurse notified me that Ish would like her mother present when confirmatory results are reported to her. I called [facility] micro lab - blood cultures from 12/06 growing Enterococcus faecalis. Ampicillin susceptible. Isolate being sent to [facility] for gentamicin susceptibility testing. In light of blood cultures growing E. Faecalis, I recommend the following: Discontinue vancomycin Start ampicillin 2g IV q 4 hours Will start gentamicin when IV access is secured. Ok to place picc line despite not knowing if bacteremia has cleared. Need secure IV access for ampicillin, gentamicin and blood draws (gent levels, creatinine, etc). Would attempt peripheral draw if at all possible, especially for blood cultures. Will likely need to replace picc line at some point. Daily creatinine Follow up blood cultures drawn today. Repeat 2 sets of blood cultures on 12/11/17. Daily EKG Ish was unable to tolerate viscous lidocaine for KRISTOPHER today. Would discuss with CT surgery if they feel this needs to be performed on 12/10 or if would wait until next week (week of 12/13/17). I will attempt to see Ish later this afternoon. Carrie Parrish MD 12/09/2017 15:06 lan of Care - Neptali Joyner RN - 12/09/2017 0133 EDT Problem: Daily Care Plan Goals Goal: Care Plan Documentation Outcome: Ongoing 12/08/17 2334 Care Plan Focus Area of Focus Sleep Goal This Shift promote sleep Data: Assumed care of patient at 1900, admitted for endocarditis from OSH. Patient is A&OX3, emotional/tearful at times, mother and boyfriend at bedside. 1st deg AV block on tele, independent on ambulation. VSS. Action: Patient resting well throughout the night, appropriate with care, vanco trough drawn as ordered at 2044, vanco dose administered okayed by pharmacist (vanco level critically high 12/08 AM). Response: Patient NPO at midnight for KRISTOPHER this AM. Neptali Joyner RN 12/09/2017 1:12 Problem: High Fall Risk: Goal: Patient will Remain Free of Falls due to Med. Side Effects Outcome: Ongoing Problem: High Fall Risk: Add only for + Hendrich score - Add only risk factors indicated by assessment Goal: Patient Will Remain Free from Fall-Related Injury Outcome: Ongoing CP (Advance Care Planning) - Jose Eduardo Valencia RN - 12/08/2017 1448 EDT NOTE: Arrived on M-5 about 1300. Little agitated on arrival, C/O touching skin too hard. applying electrodes hurt, needed anxiety medicine. This not ordered and MD called and informed of request. Presents with red pet petichial rash all over body. A&O but quite verbal. ransfer Summary (Intrafacility) - Gerald Castro MD - 12/08/2017 1141 EDT Internal Medicine Transfer Summary Service Date: 12/08/2017 Admit Date: 12/07/2017 15:08 Primary Care Provider: Alex Bliss Chief Complaint: Ish Orellana is a 27 y.o. female admitted critically ill to the MICU for infective endocarditis and severe mitral regurgitation, now transferred to medicine. Summary of Hospital Course Ish Orellana is a 27 yo F with PMH of untreated HepC, remote IV drug use (last use 3 years ago, onmethadone 95 mg, confirmed with [facility]), depression, and anxiety who presented to [facility] with aone-month history of petechial rash, initially started on feet and ankles ascending to UEs. She had associated fever (101.3), shaking chills, rigors, and weakess with intermittent dizziness. Labs were notable for hgb 7.3 ->6.3 ->8.8 after 2 units of RBC transfusion, MCV 73, plt 176K, WBC 5.9, peripheral smear showed schistocytes 1+. CMP notable for Cr 0.85, lactic 1.7, ca 7.8, albumin 2.0, total protein 7.1, AST 39, ALT 11, alk phos 91, lipase 99, glucose 79. Trop 0.13. BNP 440. Blood culture grew GPC on 12/06 and 12/07 samples. ESR and CRP elevated Hep serology pending. Echocardiogram on 12/07 showed LVEF 55-60, no WMA, mitral valve with 10x12 mm vegetation the posterior leaflet, possibly extension on to anterior leaflet and proximal LA posterior wall adjacent to attachment of posterior leaflet,and severe regurgitation. CXR showed no acute pathology. US abdomen showed hepatic infiltrates consistent with steatosis, borderline dilated CBD of 7 mm and splenomegaly with lesion measuring 8.1x4.4x5. She was started on vancomycin and cefepime for endocarditis (on 12/07), lasix 20 mg IV, and resumed methadone 95 mg. Patient hx notable for significant IV drug use (father of endocarditis, sibling with drug use). She was deemed stable for transfer to the medicine floor on 12/08/17. Today, patient is in NAD and hemodynamically stable. She endorses fatigue but denies N/V, fevers/chills, and CP. Has had weight loss (295 to 216 lb over a year). Petechial rash has worsened on UEs and improved on her LEs. Otherwise, feels fine and understanding of her medical situation. Review of Systems A complete 10 point ROS was performed and pertinent positive and negative findings listed in HPI, otherwise negative. Past Medical History: Diagnosis Date ??? Hepatitis C No past surgical history on file. Social History Substance Use Topics ??? Smoking status: Current Every Day Smoker Packs/day: 0.25 Types: Cigarettes ??? Smokeless tobacco: Never Used ??? Alcohol use No No family history on file. Prescriptions Prior to Admission Medication Sig ??? methadone (DOLOPHINE) 5 mg/5 mL oral solution Take 95 mg by mouth daily. ??? trazodone (DESYREL) 50 mg tablet Take 50 mg by mouth at bedtime. No Known Allergies Objective Vitals Temp: [36.1 ??C (97 ??F)-36.8 ??C (98.2 ??F)] (), Heart Rate: [79 BPM-96 BPM] (), Pulse: -- (), Resp: [15] (), BP: (106-136)/(68-86) (), SpO2: [93 %-99 %] (), O2 Flow Rate (L/min): 0 l/min Numeric Pain Level (Scale 1-10): 0 Weight: Weight : 97 kg (213 lb 13.5 oz) Body mass index is 32.52 kg/(m^2). Physical Exam General: obese white female appearing stated age in NAD, sitting up in bed, appearing somnolent HEENT: normocephalic, atraumatic, MMM. EOMI. Nares patent without discharge. No erythema or edema ofposterior oropharynx. Lungs: CTABL Heart: RRR, S1 and S2 normal, holosystolic 3/6 murmur Abdomen: soft, nontender, bowel sounds normoactive : no garcia Ext: warm, atraumatic, no cyanosis or edema, moving all extremities appropriately, pulses 2+ and symmetric Skin: diffuse petechial rash of UE and LE, more prominent on UE Neuro: A+Ox3. Mental status: appropriate throughout conversation. Pressure Ulcer Present on admission? No Labs I have personally reviewed Recent Labs 12/07/17 1549 WBC 4.62 RBC 3.76* HGB 8.8* HCT 28.2* MCV 75* MCH 23.4* MCHC 31.2* PLT 145 NEUTROABS 3.13 Recent Labs 12/07/17 1525 12/07/17 1549 NA -- 138 K -- 3.7 CL -- 105 CO2 -- 27 BUN -- 6* CREATININE -- 0.65 GLUCOSEFINGE 80 -- CALCIUM -- 7.9* MG -- 1.9 PHOS -- 3.6 LABALBU -- 2.3* Recent Labs 12/07/17 1549 PROTIME 14.8* INR 1.3* Recent Labs 12/07/17 1549 TROPONINI 0.048* Recent Labs 12/07/17 1549 TBIL 1.7* AST 40 ALT 25 Imaging Results notable for following. Echocardiogram on 12/07 showed LVEF 55-60, no WMA, mitral valve with 10x12 mm vegetation the posteriorleaflet, possibly extension on to anterior leaflet and proximal LA posterior wall adjacent to attachment of posterior leaflet, and severe regurgitation. ?? CXR showed no acute pathology. ?? US abdomen showed hepatic infiltrates consistent with steatosis, borderline dilated CBD of 7 mm and splenomegaly with lesion measuring 8.1x4.4x5. ?? Assessment Ish Orellana is a 27 yo F with a PMH of untreated Hep C, remote IV drug use, depression, and anxiety who presented to [facility] with a one-month history of petechial rash and was found to have infective endocarditis, complicated by severe mitral regurgitation, 10x12 mm mitral valve vegetation, hemolyticanemia, and petechial rash. Currently pt is hemodynamically stable. Blood cx pending. Tx with vancomycin and cefepime. CT surg consulted. Dental consulted. KRISTOPHER tomorrow morning. Plan Acute infective endocarditis, due to unspecified organism: with severe mitral regurgitation and 10x12 mm mitral valve veg. 12/07 bedside Echo LVEF 55-60, no WMA. - ID following - CT surg consulted - f/u recs - blood cx x2 12/08 - f/u OSH blood cxs 12/06 and 12/07 - ct vanc and cefepime - vancomycin trough in am - goal: 15-20 - KRISTOPHER tomorrow morning - telemetry Gram (+) bacteremia - monitor I/O - fluid goal net neg 500-1000 Hemolytic anemia - s/p 2 U RBCs - CBC daily - f/u OSH haptoglobin Petechial Rash - Monitor, likely due to endocarditis Chronic hep C without hepatic coma - HIV reactive, awaiting ID recs for next steps - f/u OSH hepatitis serology Opioid use disorder - methadone 95 mg daily (confirmed at [facility]) - may need dose adj if anticipating surgery with anesthesia VTE Prophylaxis holding pharm dvt ppx for anemia Code: Full Discharge Plan Uncertain at this time Consults Infectious Disease and CT surg Admission Status Inpatient. Anticipated duration of hospitalization is greater than two midnights due to infective endocarditis. Estrada Mccarthy MD 12:54 Internal Medicine Service PGY-1 [facility] Attending Attestation: I have interviewed and examined the patient. I have personally reviewed the medication list. I have independently reviewed the lab results, CXR, d/w MICU physician, ID. HIV positive - ID reviewed with patient and family- confirmation testing sent. She is in agreement with KRISTOPHER. I have discussed the case with the resident and agree with the findings and plan of care above. Any additions in blue. Date of service: 12/08/2017 Gerald Castro MD documented in this encounter Plan of Treatment Pending Results Name Type Priority Associated Diagnoses Date/Ti me OUTSIDE IMAGES - OTHER Imaging 12/07 14:00 EDT CHEST OUTSIDE IMAGES - US Imaging 12/08/19 18 14:00 EDT BODY TRANSFUSE RED BLOOD Transfuse Routine 12/24/19 18 6:09 EDT CELLS PREPARE RED BLOOD CELLS Blood Bank Routine 12/05 4:05 EDT TRANSFUSE RED BLOOD Transfuse Routine 12/24/19 18 5:55 EDT CELLS Scheduled Orders Name Type Priority Associated Diagnoses Order S chedule PREPARE RED BLOOD Blood Bank Routine One Time f or 1 CELLS Occurrences sta rting 12/23/2017 unti l 12/23/2017 Scheduled Referrals Name Type Priority Associated Order Schedule Diagnoses PROVIDER FOLLOW-UP Outpatient Referral Routine Or dered: INSTRUCTIONS 12/30/2017 PROVIDER FOLLOW-UP Outpatient Referral Routine Or dered: INSTRUCTIONS 12/30/2017 AMB CONS/FOLLOW UP Outpatient Referral Routine S/P MVR (mitral Ordered: CARDIOTHORACIC SURGERY valve replacement) 12/30/2017 documented as of this encounter Procedures Procedure Name Priority Date/Time Associated Comments Diagnosis CHEST PA AND LATERAL Routine 01/25/2018 9:54 S/P MVR (mitral R esults for this EDT valve replacement) procedure are in the results section. ECG REPORT - SCANNED 01/17/2018 12:52 EDT ECG REPORT - SCANNED 01/04/2018 13:10 EDT ECG REPORT - SCANNED 01/04/2018 10:50 EDT ECG REPORT - SCANNED 01/03/2018 7:46 EDT ECG REPORT - SCANNED 01/03/2018 7:45 EDT TRANSFUSION RECORD - 01/03/2018 7:45 SCANNED EDT GLUCOSE, GLUCOMETER Routine 12/30/2017 11:56 Resu lts for this EDT procedure are i n the results section. GLUCOSE, GLUCOMETER Routine 12/30/2017 6:58 Resul ts for this EDT procedure are i n the results section. COMPLETE BLOOD COUNT AND Routine 12/30/2017 5:47 Results for this DIFFERENTIAL EDT procedure are i n the results section. BUN Routine 12/30/2017 5:47 Results for this EDT procedure are i n the results section. CREATININE Routine 12/30/2017 5:47 Results for this EDT procedure are i n the results section. ELECTROLYTES Routine 12/30/2017 5:47 Results for this EDT procedure are i n the results section. GLUCOSE, GLUCOMETER Routine 12/29/2017 21:22 Resu lts for this EDT procedure are i n the results section. POTASSIUM STAT 12/29/2017 17:42 Results for this EDT procedure are i n the results section. GLUCOSE, GLUCOMETER Routine 12/29/2017 16:56 Resu lts for this EDT procedure are i n the results section. POTASSIUM Routine 12/29/2017 16:13 Results for this EDT procedure are i n the results section. GLUCOSE, GLUCOMETER Routine 12/29/2017 14:34 Resu lts for this EDT procedure are i n the results section. GLUCOSE, GLUCOMETER Routine 12/29/2017 14:12 Resu lts for this EDT procedure are i n the results section. EKG 12-LEAD STAT 12/29/2017 12:57 Results for this EDT procedure are i n the results section. GENTAMICIN PEAK Routine 12/29/2017 12:18 Results for this EDT procedure are i n the results section. GLUCOSE, GLUCOMETER Routine 12/29/2017 11:30 Resu lts for this EDT procedure are i n the results section. GENTAMICIN TROUGH Routine 12/29/2017 11:05 Result s for this EDT procedure are i n the results section. GLUCOSE, GLUCOMETER Routine 12/29/2017 7:21 Resul ts for this EDT procedure are i n the results section. COMPLETE BLOOD COUNT AND Routine 12/29/2017 5:52 Results for this DIFFERENTIAL EDT procedure are i n the results section. BUN Routine 12/29/2017 5:52 Results for this EDT procedure are i n the results section. CREATININE Routine 12/29/2017 5:52 Results for this EDT procedure are i n the results section. ELECTROLYTES Routine 12/29/2017 5:52 Results for this EDT procedure are i n the results section. GLUCOSE, GLUCOMETER Routine 12/28/2017 18:09 Resu lts for this EDT procedure are i n the results section. GLUCOSE, GLUCOMETER Routine 12/28/2017 12:13 Resu lts for this EDT procedure are i n the results section. GLUCOSE, GLUCOMETER Routine 12/28/2017 6:52 Resul ts for this EDT procedure are i n the results section. COMPLETE BLOOD COUNT AND Routine 12/28/2017 5:55 Results for this DIFFERENTIAL EDT procedure are i n the results section. ELECTROLYTES Routine 12/28/2017 5:55 Results for this EDT procedure are i n the results section. GLUCOSE, GLUCOMETER Routine 12/27/2017 22:09 Resu lts for this EDT procedure are i n the results section. GLUCOSE, GLUCOMETER Routine 12/27/2017 17:11 Resu lts for this EDT procedure are i n the results section. GENTAMICIN PEAK Routine 12/27/2017 14:32 Results for this EDT procedure are i n the results section. GENTAMICIN TROUGH Routine 12/27/2017 13:10 Result s for this EDT procedure are i n the results section. GLUCOSE, GLUCOMETER Routine 12/27/2017 12:02 Resu lts for this EDT procedure are i n the results section. ECG REPORT - SCANNED 12/27/2017 11:21 EDT INPATIENT ADD-ON Routine 12/27/2017 10:15 Results for this EDT procedure are i n the results section. GLUCOSE, GLUCOMETER Routine 12/27/2017 6:45 Resul ts for this EDT procedure are i n the results section. COMPLETE BLOOD COUNT AND Routine 12/27/2017 4:02 Results for this DIFFERENTIAL EDT procedure are i n the results section. CREATININE Routine 12/27/2017 4:02 Results for this EDT procedure are i n the results section. ELECTROLYTES Routine 12/27/2017 4:02 Results for this EDT procedure are i n the results section. GLUCOSE, GLUCOMETER Routine 12/26/2017 22:07 Resu lts for this EDT procedure are i n the results section. GLUCOSE, GLUCOMETER Routine 12/26/2017 17:12 Resu lts for this EDT procedure are i n the results section. GLUCOSE, GLUCOMETER Routine 12/26/2017 12:28 Resu lts for this EDT procedure are i n the results section. COMPLETE BLOOD COUNT AND Routine 12/26/2017 9:45 Results for this DIFFERENTIAL EDT procedure are i n the results section. GLUCOSE, GLUCOMETER Routine 12/26/2017 7:03 Resul ts for this EDT procedure are i n the results section. ELECTROLYTES Routine 12/26/2017 5:30 Results for this EDT procedure are i n the results section. GLUCOSE, GLUCOMETER Routine 12/25/2017 21:36 Resu lts for this EDT procedure are i n the results section. GLUCOSE, GLUCOMETER Routine 12/25/2017 17:51 Resu lts for this EDT procedure are i n the results section. GLUCOSE, GLUCOMETER Routine 12/25/2017 13:17 Resu lts for this EDT procedure are i n the results section. GLUCOSE, GLUCOMETER Routine 12/25/2017 6:42 Resul ts for this EDT procedure are i n the results section. COMPLETE BLOOD COUNT AND Routine 12/25/2017 4:59 Results for this DIFFERENTIAL EDT procedure are i n the results section. BUN Routine 12/25/2017 4:59 Results for this EDT procedure are i n the results section. CREATININE Routine 12/25/2017 4:59 Results for this EDT procedure are i n the results section. ELECTROLYTES Routine 12/25/2017 4:59 Results for this EDT procedure are i n the results section. GLUCOSE, GLUCOMETER Routine 12/25/2017 4:05 Resul ts for this EDT procedure are i n the results section. GLUCOSE, GLUCOMETER Routine 12/24/2017 17:33 Resu lts for this EDT procedure are i n the results section. TRANSFUSE RED BLOOD Routine 12/24/2017 17:20 CELLS EDT CHEST PA AND LATERAL Routine 12/24/2017 11:20 Res ults for this EDT procedure are i n the results section. GLUCOSE, GLUCOMETER Routine 12/24/2017 9:43 Resul ts for this EDT procedure are i n the results section. PREPARE RED BLOOD CELLS Routine 12/24/2017 8:06 R esults for this EDT procedure are i n the results section. PREPARE RED BLOOD CELLS Routine 12/24/2017 8:06 R esults for this EDT procedure are i n the results section. GLUCOSE, GLUCOMETER Routine 12/24/2017 6:54 Resul ts for this EDT procedure are i n the results section. COMPLETE BLOOD COUNT AND Routine 12/24/2017 5:30 Results for this DIFFERENTIAL EDT procedure are i n the results section. BUN Routine 12/24/2017 5:30 Results for this EDT procedure are i n the results section. LIPASE Routine 12/24/2017 5:30 Results for this EDT procedure are i n the results section. CREATININE Routine 12/24/2017 5:30 Results for this EDT procedure are i n the results section. ELECTROLYTES Routine 12/24/2017 5:30 Results for this EDT procedure are i n the results section. URINE CULTURE IF Routine 12/23/2017 23:30 Results for this POSITIVE EDT procedure are i n the results section. URINE CHEMICAL (DIP) & Routine 12/23/2017 23:30 R esults for this SEDIMENT (MICRO) WITHOUT EDT pro cedure are in REFLEX TO CULTURE the result s section. BACTERIAL CULTURE, URINE Routine 12/23/2017 23:30 Results for this EDT procedure are i n the results section. GLUCOSE, GLUCOMETER Routine 12/23/2017 21:11 Resu lts for this EDT procedure are i n the results section. GLUCOSE, GLUCOMETER Routine 12/23/2017 17:41 Resu lts for this EDT procedure are i n the results section. GLUCOSE, GLUCOMETER Routine 12/23/2017 12:42 Resu lts for this EDT procedure are i n the results section. COMPLETE BLOOD COUNT AND Routine 12/23/2017 10:20 Results for this DIFFERENTIAL EDT procedure are i n the results section. TOTAL & DIRECT BILIRUBIN Routine 12/23/2017 10:20 Results for this EDT procedure are i n the results section. ALT Routine 12/23/2017 10:20 Results for this EDT procedure are i n the results section. AST Routine 12/23/2017 10:20 Results for this EDT procedure are i n the results section. MAGNESIUM Routine 12/23/2017 10:20 Results for this EDT procedure are i n the results section. LIPASE Routine 12/23/2017 10:20 Results for this EDT procedure are i n the results section. AMYLASE Routine 12/23/2017 10:20 Results for this EDT procedure are i n the results section. EKG 12-LEAD Routine 12/23/2017 8:19 Results for this EDT procedure are i n the results section. TRANSFUSE RED BLOOD Routine 12/23/2017 5:55 CELLS EDT BUN Routine 12/23/2017 5:50 Results for this EDT procedure are i n the results section. CREATININE Routine 12/23/2017 5:50 Results for this EDT procedure are i n the results section. ELECTROLYTES Routine 12/23/2017 5:50 Results for this EDT procedure are i n the results section. GLUCOSE, GLUCOMETER Routine 12/23/2017 5:39 Resul ts for this EDT procedure are i n the results section. CT ABD W/WO AND PELVIS W STAT 12/23/2017 5:20 Results for this CONTRAST EDT procedure are i n the results section. PORTABLE CHEST 1 VIEW STAT 12/23/2017 4:29 Res ults for this EDT procedure are i n the results section. TYPE AND SCREEN STAT 12/23/2017 4:20 Results f or this EDT procedure are i n the results section. PREPARE RED BLOOD CELLS Routine 12/23/2017 4:07 R esults for this EDT procedure are i n the results section. LACTIC ACID STAT 12/23/2017 2:12 Results for this EDT procedure are i n the results section. COMPLETE BLOOD COUNT AND STAT 12/23/2017 2:12 Results for this DIFFERENTIAL EDT procedure are i n the results section. GLUCOSE, GLUCOMETER Routine 12/22/2017 21:34 Resu lts for this EDT procedure are i n the results section. GLUCOSE, GLUCOMETER Routine 12/22/2017 12:26 Resu lts for this EDT procedure are i n the results section. INPATIENT ADD-ON STAT 12/22/2017 12:15 Results for this EDT procedure are i n the results section. GLUCOSE, GLUCOMETER Routine 12/22/2017 6:46 Resul ts for this EDT procedure are i n the results section. BUN Routine 12/22/2017 5:48 Results for this EDT procedure are i n the results section. CREATININE Routine 12/22/2017 5:48 Results for this EDT procedure are i n the results section. ELECTROLYTES Routine 12/22/2017 5:48 Results for this EDT procedure are i n the results section. GENTAMICIN PEAK Routine 12/21/2017 22:13 Results for this EDT procedure are i n the results section. ECG REPORT - SCANNED 12/21/2017 21:50 EDT ECG REPORT - SCANNED 12/21/2017 21:45 EDT GLUCOSE, GLUCOMETER Routine 12/21/2017 21:12 Resu lts for this EDT procedure are i n the results section. GENTAMICIN TROUGH Routine 12/21/2017 20:53 Result s for this EDT procedure are i n the results section. GLUCOSE, GLUCOMETER Routine 12/21/2017 17:44 Resu lts for this EDT procedure are i n the results section. PORTABLE CHEST 1 VIEW STAT 12/21/2017 16:18 Re sults for this EDT procedure are i n the results section. ECG REPORT - SCANNED 12/21/2017 13:56 EDT GLUCOSE, GLUCOMETER Routine 12/21/2017 13:50 Resu lts for this EDT procedure are i n the results section. GLUCOSE, GLUCOMETER Routine 12/21/2017 12:03 Resu lts for this EDT procedure are i n the results section. GLUCOSE, GLUCOMETER Routine 12/21/2017 10:19 Resu lts for this EDT procedure are i n the results section. GLUCOSE, GLUCOMETER Routine 12/21/2017 8:15 Resul ts for this EDT procedure are i n the results section. PORTABLE CHEST 1 VIEW Routine 12/21/2017 7:01 Res ults for this EDT procedure are i n the results section. POTASSIUM Routine 12/21/2017 5:56 Results for this EDT procedure are i n the results section. GLUCOSE, GLUCOMETER Routine 12/21/2017 5:55 Resul ts for this EDT procedure are i n the results section. EKG 12-LEAD Routine 12/21/2017 4:24 Results for this EDT procedure are i n the results section. GLUCOSE, GLUCOMETER Routine 12/21/2017 4:19 Resul ts for this EDT procedure are i n the results section. GLUCOSE, GLUCOMETER Routine 12/21/2017 2:05 Resul ts for this EDT procedure are i n the results section. GLUCOSE, GLUCOMETER Routine 12/21/2017 2:03 Resul ts for this EDT procedure are i n the results section. CALCIUM, IONIZED Routine 12/21/2017 2:01 Results for this EDT procedure are i n the results section. COMPLETE BLOOD COUNT Routine 12/21/2017 2:01 Resu lts for this EDT procedure are i n the results section. BUN Routine 12/21/2017 2:01 Results for this EDT procedure are i n the results section. CREATININE Routine 12/21/2017 2:01 Results for this EDT procedure are i n the results section. ELECTROLYTES Routine 12/21/2017 2:01 Results for this EDT procedure are i n the results section. GLUCOSE, GLUCOMETER Routine 12/21/2017 0:13 Resul ts for this EDT procedure are i n the results section. EKG 12-LEAD STAT 12/20/2017 21:56 Results for this EDT procedure are i n the results section. POTASSIUM STAT 12/20/2017 21:53 Results for this EDT procedure are i n the results section. GLUCOSE, GLUCOMETER Routine 12/20/2017 21:52 Resu lts for this EDT procedure are i n the results section. CALCIUM, IONIZED Routine 12/20/2017 21:34 Results for this EDT procedure are i n the results section. GLUCOSE, GLUCOMETER Routine 12/20/2017 21:10 Resu lts for this EDT procedure are i n the results section. COMPLETE BLOOD COUNT Routine 12/20/2017 21:08 Res ults for this EDT procedure are i n the results section. POTASSIUM Routine 12/20/2017 21:08 Results for this EDT procedure are i n the results section. GLUCOSE, GLUCOMETER Routine 12/20/2017 19:55 Resu lts for this EDT procedure are i n the results section. RESPIRATORY CARE Routine 12/20/2017 19:19 EVALUATION ONLY EDT RESPIRATORY CARE Routine 12/20/2017 19:19 EVALUATION ONLY EDT ZZBLOOD GAS, G3 ISTAT Routine 12/20/2017 19:03 Re sults for this EDT procedure are i n the results section. GLUCOSE, GLUCOMETER Routine 12/20/2017 18:12 Resu lts for this EDT procedure are i n the results section. GLUCOSE, GLUCOMETER Routine 12/20/2017 16:50 Resu lts for this EDT procedure are i n the results section. ZZBLOOD GAS, G3 ISTAT Routine 12/20/2017 16:39 Re sults for this EDT procedure are i n the results section. PORTABLE CHEST PA STAT 12/20/2017 15:41 Result s for this CENTRAL LINE/PICC/ET EDT procedu re are in TUBE,INITIAL INSERTION the r esults section. EKG 12-LEAD Routine 12/20/2017 15:41 Results for this EDT procedure are i n the results section. MRSA PCR Routine 12/20/2017 15:34 Results for this EDT procedure are i n the results section. GLUCOSE, GLUCOMETER Routine 12/20/2017 15:33 Resu lts for this EDT procedure are i n the results section. COMPLETE BLOOD COUNT Routine 12/20/2017 15:28 Res ults for this EDT procedure are i n the results section. POTASSIUM Routine 12/20/2017 15:28 Results for this EDT procedure are i n the results section. PTT Routine 12/20/2017 14:00 Results for this EDT procedure are i n the results section. PROTIME Routine 12/20/2017 14:00 Results for this EDT procedure are i n the results section. FIBRINOGEN Routine 12/20/2017 14:00 Results for this EDT procedure are i n the results section. COMPLETE BLOOD COUNT Routine 12/20/2017 14:00 Res ults for this EDT procedure are i n the results section. BLOOD GAS, CG8 ISTAT Routine 12/20/2017 13:39 Res ults for this EDT procedure are i n the results section. ACT, CELITE ISTAT Routine 12/20/2017 13:38 Result s for this EDT procedure are i n the results section. BLOOD GAS, EG6 ISTAT Routine 12/20/2017 13:06 Res ults for this EDT procedure are i n the results section. ACT, CELITE ISTAT Routine 12/20/2017 13:05 Result s for this EDT procedure are i n the results section. BLOOD GAS, CG8 ISTAT Routine 12/20/2017 12:58 Res ults for this EDT procedure are i n the results section. BLOOD GAS, CG8 ISTAT Routine 12/20/2017 12:39 Res ults for this EDT procedure are i n the results section. ACT, CELITE ISTAT Routine 12/20/2017 12:39 Result s for this EDT procedure are i n the results section. BLOOD GAS, CG8 ISTAT Routine 12/20/2017 12:07 Res ults for this EDT procedure are i n the results section. ACT, CELITE ISTAT Routine 12/20/2017 12:07 Result s for this EDT procedure are i n the results section. BLOOD GAS, EG6 ISTAT Routine 12/20/2017 11:43 Res ults for this EDT procedure are i n the results section. ACT, CELITE ISTAT Routine 12/20/2017 11:42 Result s for this EDT procedure are i n the results section. BLOOD GAS, CG8 ISTAT Routine 12/20/2017 11:20 Res ults for this EDT procedure are i n the results section. GRAM SMEAR Routine 12/20/2017 11:20 Results for this EDT procedure are i n the results section. FUNGUS CULTURE/SMEAR Routine 12/20/2017 11:20 Res ults for this EDT procedure are i n the results section. ACT, CELITE ISTAT Routine 12/20/2017 11:19 Result s for this EDT procedure are i n the results section. ANAEROBE Routine 12/20/2017 11:10 Results for this CULTURE/SMEAR(INC. EDT procedure are in AEROBES), TISSUE the results section. GRAM SMEAR Routine 12/20/2017 11:05 Results for this EDT procedure are i n the results section. FUNGUS CULTURE/SMEAR Routine 12/20/2017 11:05 Res ults for this EDT procedure are i n the results section. ACT, CELITE ISTAT Routine 12/20/2017 11:03 Result s for this EDT procedure are i n the results section. BLOOD GAS, EG6 ISTAT Routine 12/20/2017 11:01 Res ults for this EDT procedure are i n the results section. SERGEI, AEROBIC BACTERIA Routine 12/20/2017 11:00 Re sults for this EDT procedure are i n the results section. ANAEROBE Routine 12/20/2017 11:00 Results for this CULTURE/SMEAR(INC. EDT procedure are in AEROBES), TISSUE the results section. BLOOD GAS, EG6 ISTAT Routine 12/20/2017 10:52 Res ults for this EDT procedure are i n the results section. BLOOD GAS, CG8 ISTAT Routine 12/20/2017 10:49 Res ults for this EDT procedure are i n the results section. ACT, CELITE ISTAT Routine 12/20/2017 10:48 Result s for this EDT procedure are i n the results section. BLOOD GAS, CG8 ISTAT Routine 12/20/2017 10:00 Res ults for this EDT procedure are i n the results section. ACT, CELITE ISTAT Routine 12/20/2017 10:00 Result s for this EDT procedure are i n the results section. BLOOD GAS, CG8 ISTAT Routine 12/20/2017 9:24 Resu lts for this EDT procedure are i n the results section. ACT, CELITE ISTAT Routine 12/20/2017 9:24 Results for this EDT procedure are i n the results section. TEST, URINE Routine 12/20/2017 8:05 Res ults for this EDT procedure are i n the results section. ANESTH TRANSESOPHAGEAL Routine 12/20/2017 7:40 Re sults for this ECHO EDT procedure are i n the results section. COMPLETE BLOOD COUNT Routine 12/20/2017 4:58 Resu lts for this EDT procedure are i n the results section. BUN Routine 12/20/2017 4:58 Results for this EDT procedure are i n the results section. MAGNESIUM Routine 12/20/2017 4:58 Results for this EDT procedure are i n the results section. CREATININE Routine 12/20/2017 4:58 Results for this EDT procedure are i n the results section. ELECTROLYTES Routine 12/20/2017 4:58 Results for this EDT procedure are i n the results section. CT CHEST (PE) PROTOCOL W Routine 12/19/2017 13:01 Results for this CONTRAST EDT procedure are i n the results section. CT FACIAL BONES W Routine 12/19/2017 13:01 Result s for this CONTRAST EDT procedure are i n the results section. LAB URINE CHEMICAL (DIP) Routine 12/19/2017 11:55 Results for this - DOES NOT REFLEX EDT procedure are in the results section. URINE CULTURE IF Routine 12/19/2017 11:55 Results for this POSITIVE EDT procedure are i n the results section. GENTAMICIN PEAK Routine 12/19/2017 9:25 Results f or this EDT procedure are i n the results section. GENTAMICIN TROUGH Routine 12/19/2017 7:44 Results for this EDT procedure are i n the results section. TYPE AND SCREEN Routine 12/19/2017 7:43 Results f or this EDT procedure are i n the results section. COMPLETE BLOOD COUNT Routine 12/18/2017 8:16 Resu lts for this EDT procedure are i n the results section. INPATIENT ADD-ON Routine 12/18/2017 8:05 Results for this EDT procedure are i n the results section. BUN Routine 12/18/2017 6:00 Results for this EDT procedure are i n the results section. MAGNESIUM Routine 12/18/2017 6:00 Results for this EDT procedure are i n the results section. CREATININE Routine 12/18/2017 6:00 Results for this EDT procedure are i n the results section. ELECTROLYTES Routine 12/18/2017 6:00 Results for this EDT procedure are i n the results section. ECG REPORT - SCANNED 12/17/2017 14:20 EDT RAD US DOPPLER LOWER Routine 12/17/2017 14:10 Res ults for this EXTREMITY VENOUS EDT procedure a re in UNILATERAL the results section. URINE CULTURE IF Routine 12/17/2017 10:57 Results for this POSITIVE EDT procedure are i n the results section. URINE CHEMICAL (DIP) & Routine 12/17/2017 10:57 R esults for this SEDIMENT (MICRO) WITHOUT EDT pro cedure are in REFLEX TO CULTURE the result s section. GENTAMICIN PEAK STAT 12/17/2017 10:56 Results for this EDT procedure are i n the results section. CHEST PA AND LATERAL Routine 12/17/2017 10:50 Res ults for this EDT procedure are i n the results section. MRSA PCR Routine 12/17/2017 10:15 Results for this EDT procedure are i n the results section. PREPARE RED BLOOD CELLS Routine 12/17/2017 10:13 Results for this EDT procedure are i n the results section. PREPARE RED BLOOD CELLS Routine 12/17/2017 10:13 Results for this EDT procedure are i n the results section. PREPARE RED BLOOD CELLS Routine 12/17/2017 10:13 Results for this EDT procedure are i n the results section. PREPARE RED BLOOD CELLS Routine 12/17/2017 10:13 Results for this EDT procedure are i n the results section. COMPLETE BLOOD COUNT AND Routine 12/17/2017 6:00 Results for this DIFFERENTIAL EDT procedure are i n the results section. CREATININE Routine 12/17/2017 6:00 Results for this EDT procedure are i n the results section. GENTAMICIN, RANDOM Routine 12/17/2017 6:00 Result s for this EDT procedure are i n the results section. COMPLETE BLOOD COUNT Routine 12/16/2017 11:44 Res ults for this EDT procedure are i n the results section. BUN Routine 12/16/2017 11:44 Results for this EDT procedure are i n the results section. MAGNESIUM Routine 12/16/2017 11:44 Results for this EDT procedure are i n the results section. CREATININE Routine 12/16/2017 11:44 Results for this EDT procedure are i n the results section. ELECTROLYTES Routine 12/16/2017 11:44 Results for this EDT procedure are i n the results section. ECG REPORT - SCANNED 12/16/2017 8:17 EDT TRANSESOPHAGEAL ECHO Routine 12/15/2017 15:54 Res ults for this (KRISTOPHER) EDT procedure are i n the results section. ECG REPORT - SCANNED 12/14/2017 12:55 EDT GENTAMICIN PEAK Routine 12/14/2017 12:19 Results for this EDT procedure are i n the results section. GENTAMICIN TROUGH Routine 12/14/2017 9:17 Results for this EDT procedure are i n the results section. ECG REPORT - SCANNED 12/14/2017 8:32 EDT COMPLETE BLOOD COUNT Routine 12/14/2017 6:10 Resu lts for this EDT procedure are i n the results section. BUN Routine 12/14/2017 6:10 Results for this EDT procedure are i n the results section. MAGNESIUM Routine 12/14/2017 6:10 Results for this EDT procedure are i n the results section. CREATININE Routine 12/14/2017 6:10 Results for this EDT procedure are i n the results section. ELECTROLYTES Routine 12/14/2017 6:10 Results for this EDT procedure are i n the results section. GENTAMICIN PEAK Routine 12/13/2017 14:24 Results for this EDT procedure are i n the results section. GENTAMICIN TROUGH Routine 12/13/2017 12:57 Result s for this EDT procedure are i n the results section. EKG 12-LEAD Routine 12/13/2017 7:25 Results for this EDT procedure are i n the results section. GENTAMICIN PEAK Routine 12/12/2017 14:25 Results for this EDT procedure are i n the results section. GENTAMICIN TROUGH Routine 12/12/2017 12:24 Result s for this EDT procedure are i n the results section. GLUCOSE, GLUCOMETER Routine 12/12/2017 10:17 Resu lts for this EDT procedure are i n the results section. EKG 12-LEAD Routine 12/12/2017 7:57 Results for this EDT procedure are i n the results section. COMPLETE BLOOD COUNT Routine 12/12/2017 6:19 Resu lts for this EDT procedure are i n the results section. BUN Routine 12/12/2017 6:19 Results for this EDT procedure are i n the results section. MAGNESIUM Routine 12/12/2017 6:19 Results for this EDT procedure are i n the results section. CREATININE Routine 12/12/2017 6:19 Results for this EDT procedure are i n the results section. ELECTROLYTES Routine 12/12/2017 6:19 Results for this EDT procedure are i n the results section. BACTERIAL CULTURE, BLOOD Routine 12/11/2017 11:37 Results for this EDT procedure are i n the results section. BACTERIAL CULTURE, BLOOD Routine 12/11/2017 11:37 Results for this EDT procedure are i n the results section. INSERT PICC LINE Routine 12/11/2017 9:44 Results for this EDT procedure are i n the results section. EKG 12-LEAD Routine 12/11/2017 7:08 Results for this EDT procedure are i n the results section. COMPLETE BLOOD COUNT Routine 12/11/2017 6:20 Resu lts for this EDT procedure are i n the results section. BUN Routine 12/11/2017 6:20 Results for this EDT procedure are i n the results section. MAGNESIUM Routine 12/11/2017 6:20 Results for this EDT procedure are i n the results section. CREATININE Routine 12/11/2017 6:20 Results for this EDT procedure are i n the results section. ELECTROLYTES Routine 12/11/2017 6:20 Results for this EDT procedure are i n the results section. EKG 12-LEAD Routine 12/10/2017 7:51 Results for this EDT procedure are i n the results section. COMPLETE BLOOD COUNT Routine 12/10/2017 7:19 Resu lts for this EDT procedure are i n the results section. BUN Routine 12/10/2017 7:19 Results for this EDT procedure are i n the results section. MAGNESIUM Routine 12/10/2017 7:19 Results for this EDT procedure are i n the results section. CREATININE Routine 12/10/2017 7:19 Results for this EDT procedure are i n the results section. ELECTROLYTES Routine 12/10/2017 7:19 Results for this EDT procedure are i n the results section. ECG REPORT - SCANNED 12/09/2017 13:56 EDT EKG 12-LEAD Routine 12/09/2017 10:24 Results for this EDT procedure are i n the results section. BACTERIAL CULTURE, BLOOD Routine 12/09/2017 10:23 Results for this EDT procedure are i n the results section. BACTERIAL CULTURE, BLOOD Routine 12/09/2017 10:23 Results for this EDT procedure are i n the results section. VANCOMYCIN TROUGH Routine 12/09/2017 10:12 Result s for this EDT procedure are i n the results section. HOLD BLUE TOP STAT 12/09/2017 9:50 Results for this EDT procedure are i n the results section. HIV 1 RNA QUANTITATION Routine 12/09/2017 9:50 Re sults for this EDT procedure are i n the results section. INPATIENT ADD-ON Routine 12/09/2017 9:15 Results for this EDT procedure are i n the results section. DIFFERENTIAL Routine 12/09/2017 7:13 Results for this EDT procedure are i n the results section. T CELL SUBSETS Routine 12/09/2017 7:13 Results fo r this EDT procedure are i n the results section. KINDRA DIFF COMMENT Routine 12/09/2017 7:13 Results for this EDT procedure are i n the results section. COMPLETE BLOOD COUNT Routine 12/09/2017 7:13 Resu lts for this EDT procedure are i n the results section. BUN Routine 12/09/2017 7:13 Results for this EDT procedure are i n the results section. MAGNESIUM Routine 12/09/2017 7:13 Results for this EDT procedure are i n the results section. CREATININE Routine 12/09/2017 7:13 Results for this EDT procedure are i n the results section. ELECTROLYTES Routine 12/09/2017 7:13 Results for this EDT procedure are i n the results section. VANCOMYCIN TROUGH STAT 12/08/2017 20:49 Result s for this EDT procedure are i n the results section. INPATIENT ADD-ON Routine 12/08/2017 18:35 Results for this EDT procedure are i n the results section. INPATIENT ADD-ON Routine 12/08/2017 16:40 Results for this EDT procedure are i n the results section. HIV 1 AND 2 AB Routine 12/08/2017 5:58 Results fo r this CONFIRMATION/DIFFERENTIA EDT pro cedure are in TION the results section. RAPID HIV 1/2 ANTIGEN Routine 12/08/2017 5:58 Res ults for this AND ANTIBODY, 4TH EDT procedure are in GENERATION the results section. PROTIME Routine 12/08/2017 5:58 Results for this EDT procedure are i n the results section. BUN Routine 12/08/2017 5:58 Results for this EDT procedure are i n the results section. PHOSPHORUS Routine 12/08/2017 5:58 Results for this EDT procedure are i n the results section. MAGNESIUM Routine 12/08/2017 5:58 Results for this EDT procedure are i n the results section. GLUCOSE, SERUM Routine 12/08/2017 5:58 Results fo r this EDT procedure are i n the results section. CREATININE Routine 12/08/2017 5:58 Results for this EDT procedure are i n the results section. BILIRUBIN, TOTAL Routine 12/08/2017 5:58 Results for this EDT procedure are i n the results section. VANCOMYCIN, RANDOM Routine 12/08/2017 5:58 Result s for this EDT procedure are i n the results section. ELECTROLYTES Routine 12/08/2017 5:58 Results for this EDT procedure are i n the results section. RESPIRATORY CARE Routine 12/07/2017 17:49 EVALUATION ONLY EDT TEST, URINE Routine 12/07/2017 17:00 Re sults for this EDT procedure are i n the results section. PORTABLE CHEST 1 VIEW Routine 12/07/2017 15:54 Re sults for this EDT procedure are i n the results section. SCREENING GLUCOSE STAT 12/07/2017 15:49 Result s for this EDT procedure are i n the results section. TROPONIN I Routine 12/07/2017 15:49 Results for this EDT procedure are i n the results section. LACTIC ACID Routine 12/07/2017 15:49 Results for this EDT procedure are i n the results section. PROTIME STAT 12/07/2017 15:49 Results for this EDT procedure are i n the results section. COMPLETE BLOOD COUNT AND STAT 12/07/2017 15:49 Results for this DIFFERENTIAL EDT procedure are i n the results section. BILIRUBIN STAT 12/07/2017 15:49 Results for this DIRECT/INDIRECT EDT procedure ar e in the results section. BUN STAT 12/07/2017 15:49 Results for this EDT procedure are i n the results section. ALT STAT 12/07/2017 15:49 Results for this EDT procedure are i n the results section. AST STAT 12/07/2017 15:49 Results for this EDT procedure are i n the results section. PROTEIN, TOTAL STAT 12/07/2017 15:49 Results f or this EDT procedure are i n the results section. PHOSPHORUS STAT 12/07/2017 15:49 Results for this EDT procedure are i n the results section. MAGNESIUM STAT 12/07/2017 15:49 Results for this EDT procedure are i n the results section. CREATININE STAT 12/07/2017 15:49 Results for this EDT procedure are i n the results section. CALCIUM STAT 12/07/2017 15:49 Results for this EDT procedure are i n the results section. BILIRUBIN, TOTAL STAT 12/07/2017 15:49 Results for this EDT procedure are i n the results section. ALBUMIN STAT 12/07/2017 15:49 Results for this EDT procedure are i n the results section. ELECTROLYTES STAT 12/07/2017 15:49 Results for this EDT procedure are i n the results section. TYPE AND SCREEN Routine 12/07/2017 15:44 Results for this EDT procedure are i n the results section. MRSA PCR Routine 12/07/2017 15:30 Results for this EDT procedure are i n the results section. GLUCOSE, GLUCOMETER Routine 12/07/2017 15:25 Resu lts for this EDT procedure are i n the results section. 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 The lungs have cleared, pleural effusion s have resolved and the cardiac silhouette and pulmonary vascula rity are now normal. There is no pneumothorax. Sternal wires are st able. Right PICC remains in satisfactory position. A bioprosthetic m itral valve is present. Impression: Satisfactory post-op chest. 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 The lungs have cleared, pleural effusion s have resolved and the cardiac silhouette and pulmonary vascula rity are now normal. There is no pneumothorax. Sternal wires are st able. Right PICC remains in satisfactory position. A bioprosthetic m itral valve is present. Impression: Satisfactory post-op chest. Performing Organization Address City/State/ZIP Code Phon e Number [facility] RADIOLOGY ACC/[facility] TRANSFUSION RECORD - SCANNED (01/03/2018 7:45 EDT) Specimen Narrative This result has an attachment that is no t available. (ABNORMAL) GLUCOSE, GLUCOMETER (12/30/2017 11:56 EDT) Glucose, 105 (H) 70 - 100 [facility] Fingerstick mg/dl LABORATORY SERVICES Chuck Tender ID [id number]: [facility] Test Performed by LABORATORY Nursing Services SERVICES Specimen Blood Performing Organization Address City/State/ZIP Code Phon e Number [facility] LABORATORY [address] [place] [address] SERVICES GLUCOSE, GLUCOMETER (12/30/2017 6:58 EDT) Glucose, 100 70 - 100 [facility] Fingerstick mg/dl LABORATORY SERVICES Chuck Tender ID [id number]: [facility] Test Performed by LABORATORY Nursing Services SERVICES Specimen Blood Performing Organization Address City/State/ZIP Code Phon e Number [facility] LABORATORY [address] [place] [address] SERVICES (ABNORMAL) BUN (12/30/2017 5:47 EDT) Pathologist Sig nature BUN 9 (L) 10 - 26 mg/dl [facility] LABORATO RY SERVICES Specimen Blood specimen (specimen) - Blood Performing Organization Address City/[facility]/ZIP Code Phon e Number [facility] LABORATORY [address] [place] [address] SERVICES CREATININE (12/30/2017 5:47 EDT) Creatinine 0.79 0.52 - 1.04 [facility] mg/dl LABORATORY SERVICES GFR, Calculated 102 >60 [facility] Comment: ml/min/1.73m2 LABORATORY eGFR calculated using CKD-EPI equation for SERVICES non Americans. Multiply eGFR by 1.16 for Americans. Specimen Blood specimen (specimen) - Blood Performing Organization Address [facility]/ZIP [facility] e Number [facility] LABORATORY [address] [place] [phone] SERVICES (ABNORMAL) HEMAGRAM AND DIFFERENTIAL (12/30/2017 5:47 EDT) Pathologist Sig nature WBC 10.07 4.0 - 12.4 [facility] K/[facility] LABORATORY SERVICES RBC 3.16 (L) 3.86 - 5.04 [facility] M/[facility] LABORATORY SERVICES Hemoglobin 8.6 (L) 11.6 - 15.2 [facility] gm/dl LABORATORY SERVICES HCT 27.9 (L) 34.9 - 44.4 % [facility] LABORATORY SERVICES MCV 88 81 - 98 fl [facility] LABORATORY SERVICES MCH 27.2 26.7 - 33.3 pg [facility] LABORATORY SERVICES MCHC 30.8 (L) 32.1 - 35.9 [facility] gm/dl LABORATORY SERVICES RDW-CV 19.4 (H) <14.7 % [facility] LABORATORY SERVICES RDW-SD 62.4 (H) <50.4 fl [facility] LABORATORY SERVICES Anisocytosis 2+ [facility] LABORATORY SERVICES PLT 654 (H) 141 - 377 K/cmm [facility] LABORATORY SERVICES MPV 8.8 (L) 9.5 - 12.7 fl [facility] LABORATORY SERVICES Neutrophils 56.8 % [facility] LABORATORY SERVICES Lymphocytes 31.7 % [facility] LABORATORY SERVICES Monocytes 4.9 % [facility] LABORATORY SERVICES Eosinophils 4.7 % [facility] LABORATORY SERVICES Basophils 0.5 % [facility] LABORATORY SERVICES Immature Grans 1.4 % [facility] LABORATORY SERVICES ABS Neutrophils 5.73 2.20 - 8.85 [facility] K/[facility] LABORATORY SERVICES ABS Lymphs 3.19 1.09 - 3.30 [facility] K/[facility] LABORATORY SERVICES ABS Monocytes 0.49 0.1 - 0.8 K/[facility] LABORATORY SERVICES ABS Eosinophils 0.47 0.03 - 0.61 [facility] K/[facility] LABORATORY SERVICES ABS Basophils 0.05 0.01 - 0.11 [facility] K/[facility] LABORATORY SERVICES ABS Immature Grans 0.14 (H) 0 - 0.06 /[facility] LABORATORY SERVICES Type of Diff: Automated [facility] LABORATORY SERVICES Specimen Blood specimen (specimen) - Blood Performing Organization Address [facility]/ZIP [facility] Phon e Number [facility] LABORATORY [address] [place] [address] SERVICES (ABNORMAL) ELECTROLYTES (12/30/2017 5:47 EDT) Pathologist Sig nature Sodium 137 136 - 145 mEq/L [facility] LABORA TORY SERVICES Potassium 5.4 (H) 3.5 - 5.0 mEq/L [facility] LABORA TORY SERVICES Chloride 99 96 - 110 mEq/L [facility] LABORAT ORY SERVICES CO2 30 22 - 32 mEq/L [facility] LABORATO RY SERVICES Specimen Blood specimen (specimen) - Blood Performing Organization Address City/[facility]/ZIP Code Phon e Number [facility] LABORATORY [address] [place] [address] SERVICES (ABNORMAL) GLUCOSE, GLUCOMETER (12/29/2017 21:22 EDT) Glucose, 125 (H) 70 - 100 [facility] Fingerstick mg/dl LABORATORY SERVICES Chuck Tender [place] [id number]: [facility] Test Performed by LABORATORY Nursing Services SERVICES Specimen Blood Performing Organization Address City/State/ZIP Code Phon e Number [facility] LABORATORY [address] [place] [address] SERVICES (ABNORMAL) POTASSIUM (12/29/2017 17:42 EDT) Pathologist Sig nature Potassium 5.1 (H) 3.5 - 5.0 mEq/L [facility] LABORA TORY SERVICES Specimen Blood specimen (specimen) - Blood Performing Organization Address City/[facility]/ZIP Code Phon e Number [facility] LABORATORY [address] [place] [address] SERVICES GLUCOSE, GLUCOMETER (12/29/2017 16:56 EDT) Glucose, 73 70 - 100 [facility] Fingerstick mg/dl LABORATORY SERVICES Chuck Tender [place] [id number]: [facility] Test Performed by LABORATORY Nursing Services SERVICES Specimen Blood Performing Organization Address City/State/ZIP Code Phon e Number [facility] LABORATORY [address] [place] [address] SERVICES (ABNORMAL) POTASSIUM (12/29/2017 16:13 EDT) Pathologist Sig nature Potassium 8.7 (HH) 3.5 - 5.0 mEq/L [facility] Comment: LABORATORY SERVICES Question specimen contaminated. Repeat sample requested. Specimen Blood specimen (specimen) - Blood Performing Organization Address City/[facility]/ZIP Code Phon e Number [facility] LABORATORY [address] [place] [address] SERVICES (ABNORMAL) GLUCOSE, GLUCOMETER (12/29/2017 14:34 EDT) Glucose, 107 (H) 70 - 100 [facility] Fingerstick mg/dl LABORATORY SERVICES Chuck Tender [place] [id number]: [facility] Test Performed by LABORATORY Nursing Services SERVICES Specimen Blood Performing Organization Address City/[facility]/ZIP Code Phon e Number [facility] LABORATORY [address] [place] [address] SERVICES (ABNORMAL) GLUCOSE, GLUCOMETER (12/29/2017 14:12 EDT) Glucose, 57 (L) 70 - 100 [facility] Fingerstick mg/dl LABORATORY SERVICES Chuck Tender [place] [id number]: [facility] Test Performed by LABORATORY Nursing Services SERVICES Specimen Blood Performing Organization Address City/[facility]/ZIP Code Phon e Number [facility] LABORATORY [address] [place] [address] SERVICES EKG 12-LEAD (12/29/2017 12:57 EDT) Specimen Narrative [facility] EKG - 01/04/2018 10:4 5 EDT ? [facility] ? Test Date: ?2017-12-29 Pat Name: ? ISH ORELLANA ? Department: ?? [address] ? Room: ? SB378 Gender: ? Female ? 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 Requested By: FREDY GUERRA B Order Number: [id number] ? Reading MD: ?? CARROLL TATUM MD ? Measurements Intervals ?[place] ? Rate: ? 73 ? P: ?61 GA: ? 331 ?QRS: ?76 QRSD: ? 99 ? T: ?-36 QT: ? 410 ? QTc: ?453 ? Interpretive Statements SINUS RHYTHM WITH FIRST DEGREE AV BLOCK NONSPECIFIC ST & T-WAVE ABNORMALITY Compared to ECG 12/23/2017 08:19:28 No significant changes I reviewed the tracing and have either a greed or edited the findings in this report. Electronically Signed On 10:45:13 EDT by CARROLL TATUM MD. Procedure Note Carroll Tatum MD - 01/04/[address] 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 Electronically Signed On 10:45:13 EDT by CARROLL TATUM MD. Performing Organization Address City/State/ZIP Code Phon e Number [facility] EKG (ABNORMAL) GENTAMICIN PEAK (12/29/2017 12:18 EDT) Gentamicin Peak 3.6 (L) 5.0 - 12.0 [facility] ug/ml LABORATORY SERVICES Type of Draw CATHETER, ANY [facility] LABORATORY SERVICES Specimen Blood specimen (specimen) - Blood Performing Organization Address City/State/ZIP Code Phon e Number [facility] LABORATORY [address] [place] [address] SERVICES GLUCOSE, GLUCOMETER (12/29/2017 11:30 EDT) Glucose, 99 70 - 100 [facility] Fingerstick mg/dl LABORATORY SERVICES Chuck Tender [place] [id number]: [facility] Test Performed by LABORATORY Nursing Services SERVICES Specimen Blood Performing Organization Address [facility]/ZIP [facility] Phon e Number [facility] LABORATORY [address] [place] [address] SERVICES GENTAMICIN TROUGH (12/29/2017 11:05 EDT) Pathologist Sig nature Gentamicin Trough 0.6 <1.5 ug/ml [facility] LABORATORY SERVICES Type of Draw VENIPUNCTURE/HE [facility] [place] LABORATORY SERVICES (PREFERRED) Specimen Blood specimen (specimen) - Blood Performing Organization Address [facility] e [facility] LABORATORY [address] [place] [address] SERVICES GLUCOSE, GLUCOMETER (12/29/2017 7:21 EDT) Glucose, 85 70 - 100 [facility] Fingerstick mg/dl LABORATORY SERVICES Chuck Tender ID [id number]: [facility] Test Performed by LABORATORY Nursing Services SERVICES Specimen Blood Performing Organization Address [facility]/ZIP [facility] Phon e Number [facility] LABORATORY [address] [place] [address] SERVICES (ABNORMAL) BUN (12/29/2017 5:52 EDT) Pathologist Sig nature BUN 7 (L) 10 - 26 mg/dl [facility] LABORATO RY SERVICES Specimen Blood specimen (specimen) - Blood Performing Organization Address [facility]/ZIP [facility] Phon e Number [facility] LABORATORY [address] [place] [address] SERVICES CREATININE (12/29/2017 5:52 EDT) Creatinine 0.84 0.52 - 1.04 [facility] mg/dl LABORATORY SERVICES GFR, Calculated 95 >60 [facility] Comment: ml/min/1.73m2 LABORATORY eGFR calculated using CKD-EPI equation for SERVICES non Americans. Multiply eGFR by 1.16 for Americans. Specimen Blood specimen (specimen) - Blood Performing Organization Address [facility]/ZIP Code Phon e Number [facility] LABORATORY [address] [place] [address] SERVICES (ABNORMAL) HEMAGRAM AND DIFFERENTIAL (12/29/2017 5:52 EDT) Pathologist Sig nature WBC 9.19 4.0 - 12.4 [facility] LABORATORY SERVICES RBC 3.10 (L) 3.86 - 5.04 [facility] M/[facility] LABORATORY SERVICES Hemoglobin 8.5 (L) 11.6 - 15.2 [facility] gm/dl LABORATORY SERVICES HCT 27.5 (L) 34.9 - 44.4 % [facility] LABORATORY SERVICES MCV 89 81 - 98 fl [facility] LABORATORY SERVICES MCH 27.4 26.7 - 33.3 pg [facility] LABORATORY SERVICES MCHC 30.9 (L) 32.1 - 35.9 [facility] gm/dl LABORATORY SERVICES RDW-CV 19.9 (H) <14.7 % [facility] LABORATORY SERVICES RDW-SD 63.9 (H) <50.4 fl [facility] LABORATORY SERVICES Anisocytosis 2+ [facility] LABORATORY SERVICES PLT 548 (H) 141 - 377 K/[facility] LABORATORY SERVICES MPV 8.8 (L) 9.5 - 12.7 fl [facility] LABORATORY SERVICES Neutrophils 57.7 % [facility] LABORATORY SERVICES Lymphocytes 31.7 % [facility] LABORATORY SERVICES Monocytes 4.9 % [facility] LABORATORY SERVICES Eosinophils 4.1 % [facility] LABORATORY SERVICES Basophils 0.4 % [facility] LABORATORY SERVICES Immature Grans 1.2 % [facility] LABORATORY SERVICES ABS Neutrophils 5.30 2.20 - 8.85 [facility] LABORATORY SERVICES ABS Lymphs 2.91 1.09 - 3.30 [facility] LABORATORY SERVICES ABS Monocytes 0.45 0.1 - 0.8 /[facility] LABORATORY SERVICES ABS Eosinophils 0.38 0.03 - 0.61 [facility] LABORATORY SERVICES ABS Basophils 0.04 0.01 - 0.11 [facility] LABORATORY SERVICES ABS Immature Grans 0.11 (H) 0 - 0.06 /[facility] LABORATORY SERVICES Type of Diff: Automated [facility] LABORATORY SERVICES Specimen Blood specimen (specimen) - Blood Performing Organization Address City/State/ZIP Code Phon e Number [facility] LABORATORY [address] [place] [address] SERVICES (ABNORMAL) ELECTROLYTES (12/29/2017 5:52 EDT) Pathologist Sig nature Sodium 136 136 - 145 mEq/L [facility] LABORA TORY SERVICES Potassium 5.5 (H) 3.5 - 5.0 mEq/L [facility] LABORA TORY SERVICES Chloride 103 96 - 110 mEq/L [facility] LABORAT ORY SERVICES CO2 28 22 - 32 mEq/L [facility] LABORATO RY SERVICES Specimen Blood specimen (specimen) - Blood Performing Organization Address City/[facility]/ZIP [facility] Phon e Number [facility] LABORATORY [address] [place] [address] SERVICES GLUCOSE, GLUCOMETER (12/28/2017 18:09 EDT) Glucose, 77 70 - 100 [facility] Fingerstick mg/dl LABORATORY SERVICES Chuck Tender [place] [id number]: [facility] Test Performed by LABORATORY Nursing Services SERVICES Specimen Blood Performing Organization Address City/[facility]/ZIP Code Phon e Number [facility] LABORATORY [address] [place] [address] SERVICES GLUCOSE, GLUCOMETER (12/28/2017 12:13 EDT) Glucose, 84 70 - 100 [facility] Fingerstick mg/dl LABORATORY SERVICES Chuck Tender ID [id number]: [facility] Test Performed by LABORATORY Nursing Services SERVICES Specimen Blood Performing Organization Address City/[facility]/ZIP Code Phon e Number [facility] LABORATORY [address] [place] [address] SERVICES GLUCOSE, GLUCOMETER (12/28/2017 6:52 EDT) Glucose, 85 70 - 100 [facility] Fingerstick mg/dl LABORATORY SERVICES Chuck Tender [place] [id number]: [facility] Test Performed by LABORATORY Nursing Services SERVICES Specimen Blood Performing Organization Address City/[facility]/ZIP Code Phon e Number [facility] LABORATORY [address] [place] [address] SERVICES (ABNORMAL) HEMAGRAM AND DIFFERENTIAL (12/28/2017 5:55 EDT) Pathologist Sig nature WBC 9.15 4.0 - 12.4 [facility] K/m LABORATORY SERVICES RBC 2.96 (L) 3.86 - 5.04 [facility] M/[facility] LABORATORY SERVICES Hemoglobin 8.2 (L) 11.6 - 15.2 [facility] gm/dl LABORATORY SERVICES HCT 25.9 (L) 34.9 - 44.4 % [facility] LABORATORY SERVICES MCV 88 81 - 98 fl [facility] LABORATORY SERVICES MCH 27.7 26.7 - 33.3 pg [facility] LABORATORY SERVICES MCHC 31.7 (L) 32.1 - 35.9 [facility] gm/dl LABORATORY SERVICES RDW-CV 19.9 (H) <14.7 % [facility] LABORATORY SERVICES RDW-SD 63.3 (H) <50.4 fl [facility] LABORATORY SERVICES Anisocytosis 2+ [facility] LABORATORY SERVICES PLT 510 (H) 141 - 377 K/[facility] LABORATORY SERVICES MPV 8.9 (L) 9.5 - 12.7 fl [facility] LABORATORY SERVICES Neutrophils 63.0 % [facility] LABORATORY SERVICES Lymphocytes 27.3 % [facility] LABORATORY SERVICES Monocytes 5.2 % [facility] LABORATORY SERVICES Eosinophils 3.0 % [facility] LABORATORY SERVICES Basophils 0.4 % [facility] LABORATORY SERVICES Immature Grans 1.1 % [facility] LABORATORY SERVICES ABS Neutrophils 5.76 2.20 - 8.85 [facility] K/[facility] LABORATORY SERVICES ABS Lymphs 2.50 1.09 - 3.30 [facility] LABORATORY SERVICES ABS Monocytes 0.48 0.1 - 0.8 K/[facility] LABORATORY SERVICES ABS Eosinophils 0.27 0.03 - 0.61 [facility] K/[facility] LABORATORY SERVICES ABS Basophils 0.04 0.01 - 0.11 [facility] K/[facility] LABORATORY SERVICES ABS Immature Grans 0.10 (H) 0 - 0.06 K/[facility] LABORATORY SERVICES Type of Diff: Automated [facility] LABORATORY SERVICES Specimen Blood specimen (specimen) - Blood Performing Organization Address City/State/ZIP Code Phon e Number [facility] LABORATORY [address] [place] [address] SERVICES ELECTROLYTES (12/28/2017 5:55 EDT) Pathologist Sig nature Sodium 137 136 - 145 mEq/L [facility] LABORA TORY SERVICES Potassium 4.7 3.5 - 5.0 mEq/L [facility] LABORA TORY SERVICES Chloride 104 96 - 110 mEq/L [facility] LABORAT ORY SERVICES CO2 27 22 - 32 mEq/L [facility] LABORATO RY SERVICES Specimen Blood specimen (specimen) - Blood Performing Organization Address City/[facility]/ZIP Code Phon e Number [facility] LABORATORY [address] [place] [address] SERVICES GLUCOSE, GLUCOMETER (12/27/2017 22:09 EDT) Glucose, 99 70 - 100 [facility] Fingerstick mg/dl LABORATORY SERVICES Chuck Tender [place] [id number]: [facility] Test Performed by LABORATORY Nursing Services SERVICES Specimen Blood Performing Organization Address [facility]/ZIP [facility] Phon e Number [facility] LABORATORY [address] [place] [address] SERVICES GLUCOSE, GLUCOMETER (12/27/2017 17:11 EDT) Glucose, 92 70 - 100 [facility] Fingerstick mg/dl LABORATORY SERVICES Chuck Tender [place] [id number]: [facility] Test Performed by LABORATORY Nursing Services SERVICES Specimen Blood Performing Organization Address City/[facility]/ZIP Code Phon e Number [facility] LABORATORY [address] [place] [address] SERVICES (ABNORMAL) GENTAMICIN PEAK (12/27/2017 14:32 EDT) Gentamicin Peak 2.6 (L) 5.0 - 12.0 [facility] ug/ml LABORATORY SERVICES Type of Draw CATHETER, ANY [facility] LABORATORY SERVICES Specimen Blood specimen (specimen) - Blood Performing Organization Address City/[facility]/ZIP Code Phon e Number [facility] LABORATORY [address] [place] [address] SERVICES GENTAMICIN TROUGH (12/27/2017 13:10 EDT) Pathologist Sig nature Gentamicin Trough <0.4 <1.5 ug/ml [facility] LABORATORY SERVICES Type of Draw CATHETER, ANY [facility] LABORATORY SERVICES Specimen Blood specimen (specimen) - Blood Performing Organization Address [facility]/ZIP Code Phon e Number [facility] LABORATORY [address] [place] [address] SERVICES GLUCOSE, GLUCOMETER (12/27/2017 12:02 EDT) Glucose, 93 70 - 100 [facility] Fingerstick mg/dl LABORATORY SERVICES Chuck Tender [place] [id number]: [facility] Test Performed by LABORATORY Nursing Services SERVICES Specimen Blood Performing Organization Address City/[facility]/ZIP Code Phon e Number [facility] LABORATORY [address] [place] [address] SERVICES INPATIENT ADD-ON (12/27/2017 10:15 EDT) Pathologist Sig nature Tests to be added CREATININE [facility] LABORATORY SERVICES Number for problems SB3 [facility] LABORATORY SERVICES Accession number [id number] [facility] LABORATORY SERVICES Specimen Other Performing Organization Address City/[facility] Phon e Number [facility] LABORATORY [address] [place] [address] SERVICES GLUCOSE, GLUCOMETER (12/27/2017 6:45 EDT) Glucose, 89 70 - 100 [facility] Fingerstick mg/dl LABORATORY SERVICES Chuck Tender [place] [id number]: [facility] Test Performed by LABORATORY Nursing Services SERVICES Specimen Blood Performing Organization Address [facility] Phon e Number [facility] LABORATORY [address] [place] [address] SERVICES CREATININE (12/27/2017 4:02 EDT) Creatinine 0.69 0.52 - 1.04 [facility] mg/dl LABORATORY SERVICES GFR, Calculated 119 >60 [facility] Comment: ml/min/1.73m2 LABORATORY eGFR calculated using CKD-EPI equation for SERVICES non Americans. Multiply eGFR by 1.16 for Americans. Specimen Blood Performing Organization Address City/[facility]/ZIP [facility] Phon e Number [facility] LABORATORY [address] [place] [address] SERVICES (ABNORMAL) HEMAGRAM AND DIFFERENTIAL (12/27/2017 4:02 EDT) Pathologist Sig nature WBC 10.59 4.0 - 12.4 [facility] K/cmm LABORATORY SERVICES RBC 2.83 (L) 3.86 - 5.04 [facility] M/[facility] LABORATORY SERVICES Hemoglobin 7.9 (L) 11.6 - 15.2 [facility] gm/dl LABORATORY SERVICES HCT 25.0 (L) 34.9 - 44.4 % [facility] LABORATORY SERVICES MCV 88 81 - 98 fl [facility] LABORATORY SERVICES MCH 27.9 26.7 - 33.3 pg [facility] LABORATORY SERVICES MCHC 31.6 (L) 32.1 - 35.9 [facility] gm/dl LABORATORY SERVICES RDW-CV 20.1 (H) <14.7 % [facility] LABORATORY SERVICES RDW-SD 65.1 (H) <50.4 fl [facility] LABORATORY SERVICES Anisocytosis 2+ [facility] LABORATORY SERVICES PLT 485 (H) 141 - 377 K/cmm [facility] LABORATORY SERVICES MPV 9.0 (L) 9.5 - 12.7 fl [facility] LABORATORY SERVICES Neutrophils 70.6 % [facility] LABORATORY SERVICES Lymphocytes 22.0 % [facility] LABORATORY SERVICES Monocytes 4.3 % [facility] LABORATORY SERVICES Eosinophils 1.7 % [facility] LABORATORY SERVICES Basophils 0.3 % [facility] LABORATORY SERVICES Immature Grans 1.1 % [facility] LABORATORY SERVICES ABS Neutrophils 7.47 2.20 - 8.85 [facility] K/[facility] LABORATORY SERVICES ABS Lymphs 2.33 1.09 - 3.30 [facility] K/[facility] LABORATORY SERVICES ABS Monocytes 0.46 0.1 - 0.8 K/[facility] LABORATORY SERVICES ABS Eosinophils 0.18 0.03 - 0.61 [facility] K/[facility] LABORATORY SERVICES ABS Basophils 0.03 0.01 - 0.11 [facility] K/[facility] LABORATORY SERVICES ABS Immature Grans 0.12 (H) 0 - 0.06 K/[facility] LABORATORY SERVICES Type of Diff: Automated [facility] LABORATORY SERVICES Specimen Blood specimen (specimen) - Blood Performing Organization Address City/State/ZIP Code Phon e Number [facility] LABORATORY [address] [place] [address] SERVICES ELECTROLYTES (12/27/2017 4:02 EDT) Pathologist Sig nature Sodium 136 136 - 145 mEq/L [facility] LABORA TORY SERVICES Potassium 4.1 3.5 - 5.0 mEq/L [facility] LABORA TORY SERVICES Chloride 103 96 - 110 mEq/L [facility] LABORAT ORY SERVICES CO2 28 22 - 32 mEq/L [facility] LABORATO RY SERVICES Specimen Blood specimen (specimen) - Blood Performing Organization Address City/State/ZIP Code Phon e Number [facility] LABORATORY [address] [place] [address] SERVICES GLUCOSE, GLUCOMETER (12/26/2017 22:07 EDT) Glucose, 99 70 - 100 [facility] Fingerstick mg/dl LABORATORY SERVICES Chuck Tender [place] [id number]: [facility] Test Performed by LABORATORY Nursing Services SERVICES Specimen Blood Performing Organization Address City/State/ZIP Code Phon e Number [facility] LABORATORY [address] [place] [address] SERVICES GLUCOSE, GLUCOMETER (12/26/2017 17:12 EDT) Glucose, 82 70 - 100 [facility] Fingerstick mg/dl LABORATORY SERVICES Chuck Tender [place] [id number]: [facility] Test Performed by LABORATORY Nursing Services SERVICES Specimen Blood Performing Organization Address City/State/ZIP Code Phon e Number [facility] LABORATORY [address] [place] [address] SERVICES GLUCOSE, GLUCOMETER (12/26/2017 12:28 EDT) Glucose, 96 70 - 100 [facility] Fingerstick mg/dl LABORATORY SERVICES Chuck Tender [place] [id number]: [facility] Test Performed by LABORATORY Nursing Services SERVICES Specimen Blood Performing Organization Address City/State/ZIP Code Phon e Number [facility] LABORATORY [address] [place] [address] SERVICES (ABNORMAL) HEMAGRAM AND DIFFERENTIAL (12/26/2017 9:45 EDT) Pathologist Sig nature WBC 12.22 4.0 - 12.4 [facility]/m LABORATORY SERVICES RBC 2.85 (L) 3.86 - 5.04 [facility] M/[facility] LABORATORY SERVICES Hemoglobin 7.9 (L) 11.6 - 15.2 [facility] gm/dl LABORATORY SERVICES HCT 24.4 (L) 34.9 - 44.4 % [facility] LABORATORY SERVICES MCV 86 81 - 98 fl [facility] LABORATORY SERVICES MCH 27.7 26.7 - 33.3 pg [facility] LABORATORY SERVICES MCHC 32.4 32.1 - 35.9 [facility] gm/dl LABORATORY SERVICES RDW-CV 20.2 (H) <14.7 % [facility] LABORATORY SERVICES RDW-SD 61.9 (H) <50.4 fl [facility] LABORATORY SERVICES Anisocytosis 2+ [facility] LABORATORY SERVICES PLT 468 (H) 141 - 377 K/[facility] LABORATORY SERVICES MPV 9.0 (L) 9.5 - 12.7 fl [facility] LABORATORY SERVICES Neutrophils 74.7 % [facility] LABORATORY SERVICES Lymphocytes 19.1 % [facility] LABORATORY SERVICES Monocytes 3.8 % [facility] LABORATORY SERVICES Eosinophils 1.3 % [facility] LABORATORY SERVICES Basophils 0.2 % [facility] LABORATORY SERVICES Immature Grans 0.9 % [facility] LABORATORY SERVICES ABS Neutrophils 9.12 (H) 2.20 - 8.85 [facility] K/[facility] LABORATORY SERVICES ABS Lymphs 2.34 1.09 - 3.30 [facility] K/[facility] LABORATORY SERVICES ABS Monocytes 0.46 0.1 - 0.8 K/[facility] LABORATORY SERVICES ABS Eosinophils 0.16 0.03 - 0.61 [facility] K/[facility] LABORATORY SERVICES ABS Basophils 0.03 0.01 - 0.11 [facility] K/[facility] LABORATORY SERVICES ABS Immature Grans 0.11 (H) 0 - 0.06 /[facility] LABORATORY SERVICES Type of Diff: Automated [facility] LABORATORY SERVICES Specimen Blood specimen (specimen) - Blood Performing Organization Address City/[facility]/ZIP Code Phon e Number [facility] LABORATORY [address] [place] [address] SERVICES GLUCOSE, GLUCOMETER (12/26/2017 7:03 EDT) Glucose, 91 70 - 100 [facility] Fingerstick mg/dl LABORATORY SERVICES Chuck Tender [place] [id number]: [facility] Test Performed by LABORATORY Nursing Services SERVICES Specimen Blood Performing Organization Address City/State/ZIP Code Phon e Number [facility] LABORATORY [address] [place] [address] SERVICES (ABNORMAL) ELECTROLYTES (12/26/2017 5:30 EDT) Pathologist Sig nature Sodium 134 (L) 136 - 145 mEq/L [facility] LABORA TORY SERVICES Potassium 3.8 3.5 - 5.0 mEq/L [facility] LABORA TORY SERVICES Chloride 102 96 - 110 mEq/L [facility] LABORAT ORY SERVICES CO2 27 22 - 32 mEq/L [facility] LABORATO RY SERVICES Specimen Blood specimen (specimen) - Blood Performing Organization Address City/State/ZIP Code Phon e Number [facility] LABORATORY [address] [place] [address] SERVICES (ABNORMAL) GLUCOSE, GLUCOMETER (12/25/2017 21:36 EDT) Glucose, 101 (H) 70 - 100 [facility] Fingerstick mg/dl LABORATORY SERVICES Chuck Tender [place] [id number]: [facility] Test Performed by LABORATORY Nursing Services SERVICES Specimen Blood Performing Organization Address City/State/ZIP Code Phon e Number [facility] LABORATORY [address] [place] [address] SERVICES GLUCOSE, GLUCOMETER (12/25/2017 17:51 EDT) Glucose, 93 70 - 100 [facility] Fingerstick mg/dl LABORATORY SERVICES Chuck Tender [place] [id number]: [facility] Test Performed by LABORATORY Nursing Services SERVICES Specimen Blood Performing Organization Address City/[facility]/ZIP Code Phon e Number [facility] LABORATORY [address] [place] [address] SERVICES GLUCOSE, GLUCOMETER (12/25/2017 13:17 EDT) Glucose, 79 70 - 100 [facility] Fingerstick mg/dl LABORATORY SERVICES Chuck Tender [place] [id number]: [facility] Test Performed by LABORATORY Nursing Services SERVICES Specimen Blood Performing Organization Address City/State/ZIP Code Phon e Number [facility] LABORATORY [address] [place] [address] SERVICES GLUCOSE, GLUCOMETER (12/25/2017 6:42 EDT) Glucose, 89 70 - 100 [facility] Fingerstick mg/dl LABORATORY SERVICES Chuck Tender [place] [id number]: [facility] Test Performed by LABORATORY Nursing Services SERVICES Specimen Blood Performing Organization Address City/[facility]/ZIP Code Phon e Number [facility] LABORATORY [address] [place] [address] SERVICES (ABNORMAL) HEMAGRAM AND DIFFERENTIAL (12/25/2017 4:59 EDT) Pathologist Sig nature WBC 15.07 (H) 4.0 - 12.4 [facility] K/[facility] LABORATORY SERVICES RBC 2.86 (L) 3.86 - 5.04 [facility] M/[facility] LABORATORY SERVICES Hemoglobin 7.9 (L) 11.6 - 15.2 [facility] gm/dl LABORATORY SERVICES HCT 24.4 (L) 34.9 - 44.4 % [facility] LABORATORY SERVICES MCV 85 81 - 98 fl [facility] LABORATORY SERVICES MCH 27.6 26.7 - 33.3 pg [facility] LABORATORY SERVICES MCHC 32.4 32.1 - 35.9 [facility] gm/dl LABORATORY SERVICES RDW-CV 20.2 (H) <14.7 % [facility] LABORATORY SERVICES RDW-SD 59.3 (H) <50.4 fl [facility] LABORATORY SERVICES Anisocytosis 2+ [facility] LABORATORY SERVICES PLT 436 (H) 141 - 377 K/cmm [facility] LABORATORY SERVICES MPV 9.2 (L) 9.5 - 12.7 fl [facility] LABORATORY SERVICES Neutrophils 76.7 % [facility] LABORATORY SERVICES Lymphocytes 17.7 % [facility] LABORATORY SERVICES Monocytes 4.1 % [facility] LABORATORY SERVICES Eosinophils 0.5 % [facility] LABORATORY SERVICES Basophils 0.2 % [facility] LABORATORY SERVICES Immature Grans 0.8 % [facility] LABORATORY SERVICES ABS Neutrophils 11.56 (H) 2.20 - 8.85 [facility] K/cm LABORATORY SERVICES ABS Lymphs 2.66 1.09 - 3.30 [facility] K/[facility] LABORATORY SERVICES ABS Monocytes 0.62 0.1 - 0.8 K/[facility] LABORATORY SERVICES ABS Eosinophils 0.08 0.03 - 0.61 [facility] K/[facility] LABORATORY SERVICES ABS Basophils 0.03 0.01 - 0.11 [facility] K/[facility] LABORATORY SERVICES ABS Immature Grans 0.12 (H) 0 - 0.06 K/[facility] LABORATORY SERVICES Type of Diff: Automated [facility] LABORATORY SERVICES Specimen Blood specimen (specimen) - Blood Performing Organization Address City/State/ZIP Code Phon e Number [facility] LABORATORY [address] [place] [address] SERVICES (ABNORMAL) ELECTROLYTES (12/25/2017 4:59 EDT) Pathologist Sig nature Sodium 135 (L) 136 - 145 mEq/L [facility] LABORA TORY SERVICES Potassium 3.5 3.5 - 5.0 mEq/L [facility] LABORA TORY SERVICES Chloride 102 96 - 110 mEq/L [facility] LABORAT ORY SERVICES CO2 27 22 - 32 mEq/L [facility] LABORATO RY SERVICES Specimen Blood specimen (specimen) - Blood Performing Organization Address City/State/ZIP Code Phon e Number [facility] LABORATORY [address] [place] [address] SERVICES CREATININE (12/25/2017 4:59 EDT) Creatinine 0.66 0.52 - 1.04 [facility] mg/dl LABORATORY SERVICES GFR, Calculated 121 >60 [facility] Comment: ml/min/1.73m2 LABORATORY eGFR calculated using CKD-EPI equation for SERVICES non Americans. Multiply eGFR by 1.16 for Americans. Specimen Blood specimen (specimen) - Blood Performing Organization Address City/[facility]/ZIP Code Phon e Number [facility] LABORATORY [address] [place] [address] SERVICES BUN (12/25/2017 4:59 EDT) Pathologist Sig nature BUN 13 10 - 26 mg/dl [facility] LABORATO RY SERVICES Specimen Blood specimen (specimen) - Blood Performing Organization Address City/[facility]/ZIP Code Phon e Number [facility] LABORATORY [address] [place] [address] SERVICES GLUCOSE, GLUCOMETER (12/25/2017 4:05 EDT) Glucose, 77 70 - 100 [facility] Fingerstick mg/dl LABORATORY SERVICES Chuck Tender [place] [id number]: [facility] Test Performed by LABORATORY Nursing Services SERVICES Specimen Blood Performing Organization Address [facility]/ZIP Code Phon e Number [facility] LABORATORY [address] [place] [address] SERVICES GLUCOSE, GLUCOMETER (12/24/2017 17:33 EDT) Glucose, 86 70 - 100 [facility] Fingerstick mg/dl LABORATORY SERVICES Chuck Tender [place] [id number]: [facility] Test Performed by LABORATORY Nursing Services SERVICES Specimen Blood Performing Organization Address City/[facility]/ZIP Code Phon e Number [facility] LABORATORY [address] [place] [address] SERVICES CHEST PA AND LATERAL (12/24/2017 11:20 EDT) Anatomical Region Laterality Modality Other Specimen Narrative [facility] RADIOLOGY [facility] - 12/24/2017 11:59 EDT CHEST PA AND LATERAL ??12/24/2017 11:20 AM Clinical History/Comments: Look for infiltrates, atelectasis, pleur al effusions, and pneumothorax Comparison: December 21 and December 23 Findings: Dual-energy technique with reconstructio ns in normal, soft tissue and bone windows was used. Although the lungs remain underinflated, bibasilar airspace opacities have improved. The cardiac trae houette remains enlarged, but the pulmonary vascularity is normal. There is no evidence of pleural fluid or pneumothorax. The tip o f the right PICC remains in satisfactory position. The right jugular sheath has been removed. Sternal wires are aligned and intact. Th e mitral valve was replaced with a [employer] Bebeto bioprosthetic valve. Procedure Note Brandon Sparrow MD - 12/24/2017 CHEST PA AND LATERAL 12/24/2017 11:20 AM Clinical History/Comments: Look for infiltrates, atelectasis, pleur al effusions, and pneumothorax Comparison: December 21 and December 23 Findings: Dual-energy technique with reconstructio ns in normal, soft tissue and bone windows was used. Although the lungs remain underinflated, bibasilar airspace opacities have improved. The cardiac trae houette remains enlarged, but the pulmonary vascularity is normal. There is no evidence of pleural fluid or pneumothorax. The tip o f the right PICC remains in satisfactory position. The right jugular sheath has been removed. Sternal wires are aligned and intact. Th e mitral valve was replaced with a [employer]. Bebeto bioprosthetic valve. Performing Organization Address City/State/ZIP Code Phon e Number [facility] RADIOLOGY [facility] GLUCOSE, GLUCOMETER (12/24/2017 9:43 EDT) Glucose, 85 70 - 100 [facility] Fingerstick mg/dl LABORATORY SERVICES Chuck Tender ID [id number]: [facility] Test Performed by LABORATORY Nursing Services SERVICES Specimen Blood Performing Organization Address City/State/ZIP Code Phon e Number [facility] LABORATORY [address] [place] [address] SERVICES PREPARE RED BLOOD CELLS (12/24/2017 8:06 EDT) Product Code [id number] [facility] BLOOD BANK Donor Number [id number] [facility] BLOOD BANK Unit ABO O [facility] BLOOD BANK Unit Rh POS [facility] BLOOD BANK Unit Status TR^Transfuse [facility] BLOOD BANK Product Expiration [id number] [facility] Date BLOOD BANK Unit Blood Type Code 5100 [facility] BLOOD BANK Coding System [id number] [facility] BLOOD BANK Specimen Performing Organization Address [facility] Code Phon e Number [facility] BLOOD BANK [address] BLOOD BANK PREPARE RED BLOOD CELLS (12/24/2017 8:06 EDT) Product Code [id number] [facility] BLOOD BANK Donor Number [id number] [facility] BLOOD BANK Unit ABO O [facility] BLOOD [facility]ANK Unit Rh NEG [facility] BLOOD BANK Unit Status TR^Transfuse [facility] BLOOD BANK Product Expiration [id number] [facility] Date BLOOD BANK Unit Blood Type Code 9500 [facility] BLOOD BANK Coding System [id number] [facility] BLOOD BANK Specimen Blood specimen (specimen) Performing Organization Address [facility] Phon e Number [facility] BLOOD BANK [address] [place] [address] BLOOD BANK GLUCOSE, GLUCOMETER (12/24/2017 6:54 EDT) Glucose, 89 70 - 100 [facility] Fingerstick mg/dl LABORATORY SERVICES Chuck Tender [place] [id number]: [facility] Test Performed by LABORATORY Nursing Services SERVICES Specimen Blood Performing Organization Address [facility]/ZIP Code Phon e Number [facility] LABORATORY [address] [place] [address] SERVICES LIPASE (12/24/2017 5:30 EDT) Pathologist Sig nature Lipase 183 <251 U/L [facility] LABORATOR Y SERVICES Specimen Blood specimen (specimen) - Blood Performing Organization Address [facility]/ZIP [facility] Phon e Number [facility] LABORATORY [address] [place] [address] SERVICES (ABNORMAL) HEMAGRAM AND DIFFERENTIAL (12/24/2017 5:30 EDT) Pathologist Sig nature WBC 13.55 (H) 4.0 - 12.4 [facility] K/[facility] LABORATORY SERVICES RBC 2.42 (L) 3.86 - 5.04 [facility] M/[facility] LABORATORY SERVICES Hemoglobin 6.5 (LL) 11.6 - 15.2 [facility] gm/dl LABORATORY SERVICES HCT 20.9 (LL) 34.9 - 44.4 % [facility] LABORATORY SERVICES MCV 86 81 - 98 fl [facility] LABORATORY SERVICES MCH 26.9 26.7 - 33.3 pg [facility] LABORATORY SERVICES MCHC 31.1 (L) 32.1 - 35.9 [facility] gm/dl LABORATORY SERVICES RDW-CV 21.8 (H) <14.7 % [facility] LABORATORY SERVICES RDW-SD 65.8 (H) <50.4 fl [facility] LABORATORY SERVICES Anisocytosis 2+ [facility] LABORATORY SERVICES PLT 373 141 - 377 K/[facility] LABORATORY SERVICES MPV 8.9 (L) 9.5 - 12.7 fl [facility] LABORATORY SERVICES Neutrophils 77.9 % [facility] LABORATORY SERVICES Lymphocytes 16.9 % [facility] LABORATORY SERVICES Monocytes 4.2 % [facility] LABORATORY SERVICES Eosinophils 0.1 % [facility] LABORATORY SERVICES Basophils 0.1 % [facility] LABORATORY SERVICES Immature Grans 0.8 % [facility] LABORATORY SERVICES ABS Neutrophils 10.54 (H) 2.20 - 8.85 [facility] K/[facility] LABORATORY SERVICES ABS Lymphs 2.29 1.09 - 3.30 [facility] K/[facility] LABORATORY SERVICES ABS Monocytes 0.57 0.1 - 0.8 K/[facility] LABORATORY SERVICES ABS Eosinophils 0.02 (L) 0.03 - 0.61 [facility] K/[facility] LABORATORY SERVICES ABS Basophils 0.02 0.01 - 0.11 [facility] K/[facility] LABORATORY SERVICES ABS Immature Grans 0.11 (H) 0 - 0.06 K/[facility] LABORATORY SERVICES Type of Diff: Automated [facility] LABORATORY SERVICES Specimen Blood specimen (specimen) - Blood Performing Organization Address City/State/ZIP Code Phon e Number [facility] LABORATORY [address] [place] [address] SERVICES (ABNORMAL) ELECTROLYTES (12/24/2017 5:30 EDT) Pathologist Sig nature Sodium 135 (L) 136 - 145 mEq/L [facility] LABORA TORY SERVICES Potassium 4.0 3.5 - 5.0 mEq/L [facility] LABORA TORY SERVICES Chloride 102 96 - 110 mEq/L [facility] LABORAT ORY SERVICES CO2 30 22 - 32 mEq/L [facility] LABORATO RY SERVICES Specimen Blood specimen (specimen) - Blood Performing Organization Address City/[facility]/ZIP Code Phon e Number [facility] LABORATORY [address] [place] [address] SERVICES CREATININE (12/24/2017 5:30 EDT) Creatinine 0.69 0.52 - 1.04 [facility] mg/dl LABORATORY SERVICES GFR, Calculated 119 >60 [facility] Comment: ml/min/1.73m2 LABORATORY eGFR calculated using CKD-EPI equation for SERVICES non Americans. Multiply eGFR by 1.16 for Americans. Specimen Blood specimen (specimen) - Blood Performing Organization Address City/[facility]/ZIP Code Phon e Number [facility] LABORATORY [address] [place] [address] SERVICES BUN (12/24/2017 5:30 EDT) Pathologist Sig nature BUN 17 10 - 26 mg/dl [facility] LABORATO RY SERVICES Specimen Blood specimen (specimen) - Blood Performing Organization Address City/[facility]/ZIP Code Phon e Number [facility] LABORATORY [address] [place] [address] SERVICES BACTERIAL CULTURE, URINE (12/23/2017 23:30 EDT) Pathologist Sig nature Result No growth [facility] LABORATOR Y SERVICES Specimen Urine Performing Organization Address City/[facility]/ZIP [facility] Phon e Number [facility] LABORATORY [address] [place] [address] SERVICES URINE CULTURE IF UA POSITIVE - NON POCT URINALYSIS ONLY (12/23/2017 23:30 EDT) Culture if Culture indicated [facility] Indicated by urinalysis LABORATORY SERVICES results. Specimen Urine (substance) - Other Performing Organization Address City/[facility]/ZIP Code Phon e Number [facility] LABORATORY [address] [place] [address] SERVICES (ABNORMAL) UA, CHEMICAL AND SEDIMENT ANALYSIS (DIPSTICK AND MICROSCOPIC) (12/23/2017 23:30 EDT) Color, UA Yellow [facility] LABORATORY SERVICES Clarity, UA Clear [facility] LABORATORY SERVICES Glucose, UA Neg Neg [facility] LABORATORY SERVICES Bilirubin, UA Neg Neg [facility] LABORATORY SERVICES Ketones, UA Neg Neg [facility] LABORATORY SERVICES Refractometer 1.039 (H) 1.001 - 1.035 [facility] SG,Urine Comment: CENTER Results greater than 1.035 suggest possible inte rference from glucose or LABORATORY radiographic dye. SERVICES Blood, UA 2+ (A) Neg [facility] LABORATORY SERVICES pH, UA 6.0 4.6 - 8.0 [facility] LABORATORY SERVICES Protein, UA 1+ (A) Neg [facility] LABORATORY SERVICES Urobilinogen, UA Normal Normal [facility] E.U./dl CENTER LABORATORY SERVICES Nitrite, UA Neg Neg [facility] LABORATORY SERVICES Leuk Esterase Neg [facility] LABORATORY SERVICES UA Method Used [facility] Comment: CENTER Testing performed using LABORATORY [employer] [id number]. SERVICES Urine RBC Count >50 (A) 0 to 2 /HPF [facility] Automated CENTER LABORATORY SERVICES Urine WBC Count 4 to 10 (A) 0 to 3 /HPF [facility] LABORATORY SERVICES Urine Squamous Moderate (A) None seen [facility] Epithelial Cell /[facility] CENTER Count, Automated LABORATORY SERVICES Urine Hyaline Casts, < or = 10 < or = 10 [facility] Automated /[facility] CENTER LABORATORY SERVICES Urine Bacteria None seen None seen [facility] Count, Automated CENTER LABORATORY SERVICES Additional Findings Few [facility] MEDICAL Comment: CENTER Yeast LABORATORY Moderate SERVICES Hyaline Casts w/ Granular Inclusions UA Comment Sediment results [facility] MEDICAL Comment: CENTER are unreliable on LABORATORY urines unrefrig >2hrs SERVICES or refrig >8hrs. Specimen Urine (substance) - Urine Performing Organization Address City/State/ZIP Code Phon e Number [facility] LABORATORY [address] [place] [address] SERVICES GLUCOSE, GLUCOMETER (12/23/2017 21:11 EDT) Glucose, 98 70 - 100 [facility] Fingerstick mg/dl LABORATORY SERVICES Chuck Tender [place] [id number]: [facility] Test Performed by LABORATORY Nursing Services SERVICES Specimen Blood Performing Organization Address City/[facility]/ZIP Code Phon e Number [facility] LABORATORY [address] [place] [address] SERVICES GLUCOSE, GLUCOMETER (12/23/2017 17:41 EDT) Glucose, 86 70 - 100 [facility] Fingerstick mg/dl LABORATORY SERVICES Chuck Tender [place] [id number]: [facility] Test Performed by LABORATORY Nursing Services SERVICES Specimen Blood Performing Organization Address City/[facility]/ZIP Code Phon e Number [facility] LABORATORY [address] [place] [address] SERVICES GLUCOSE, GLUCOMETER (12/23/2017 12:42 EDT) Glucose, 94 70 - 100 [facility] Fingerstick mg/dl LABORATORY SERVICES Chuck Tender [place] [id number]: [facility] Test Performed by LABORATORY Nursing Services SERVICES Specimen Blood Performing Organization Address City/[facility]/ZIP Code Phon e Number [facility] LABORATORY [address] [place] [address] SERVICES MAGNESIUM (12/23/2017 10:20 EDT) Pathologist Sig nature Magnesium 2.0 1.7 - 2.8 mg/dl [facility] LABORA TORY SERVICES Specimen Blood specimen (specimen) - Blood Performing Organization Address [facility]/ZIP [facility] Phon e Number [facility] LABORATORY [address] [place] [phone] SERVICES AMYLASE (12/23/2017 10:20 EDT) Pathologist Sig nature Amylase 95 30 - 110 U/L [facility] LABORATOR Y SERVICES Specimen Blood specimen (specimen) - Blood Performing Organization Address [facility]/ZIP [facility] Phon e Number [facility] LABORATORY [address] [place] [address] SERVICES TOTAL & DIRECT BILIRUBIN (12/23/2017 10:20 EDT) Pathologist Sig nature Conjugated Bilirubin 0.0 0.0 - 0.3 mg/dl [facility] Unconjugated Bilirubin 0.2 0.0 - 1.1 mg/dl [facility] TER LABORATORY SERVICES Bilirubin, Total <0.5 <1.4 mg/dl [facility] LABORATORY SERVICES Specimen Blood specimen (specimen) - Blood Performing Organization Address City/[facility]/ZIP Code Phon e Number [facility] LABORATORY [address] [place] [phone] SERVICES ALT (12/23/2017 10:20 EDT) Pathologist Sig nature ALT 25 <53 U/L [facility] LABORATOR Y SERVICES Specimen Blood specimen (specimen) - Blood Performing Organization Address City/[facility]/ZIP Code Phon e Number [facility] LABORATORY [address] [place] [phone] SERVICES AST (12/23/2017 10:20 EDT) Pathologist Sig nature AST 25 15 - 46 U/L [facility] LABORATOR Y SERVICES Specimen Blood specimen (specimen) - Blood Performing Organization Address City/State/ZIP Code Phon e Number [facility] LABORATORY [address] [place] [address] SERVICES (ABNORMAL) LIPASE (12/23/2017 10:20 EDT) Pathologist Sig nature Lipase 313 (H) <251 U/L [facility] LABORATOR Y SERVICES Specimen Blood specimen (specimen) - Blood Performing Organization Address City/[facility]/ZIP Code Phon e Number [facility] LABORATORY [address] [place] [address] SERVICES (ABNORMAL) HEMAGRAM AND DIFFERENTIAL (12/23/2017 10:20 EDT) Pathologist Sig nature WBC 14.44 (H) 4.0 - 12.4 [facility] LABORATORY SERVICES RBC 2.69 (L) 3.86 - 5.04 [facility] LABORATORY SERVICES Hemoglobin 7.3 (L) 11.6 - 15.2 [facility] gm/dl LABORATORY SERVICES HCT 22.5 (L) 34.9 - 44.4 % [facility] LABORATORY SERVICES MCV 84 81 - 98 fl [facility] LABORATORY SERVICES MCH 27.1 26.7 - 33.3 pg [facility] LABORATORY SERVICES MCHC 32.4 32.1 - 35.9 [facility] gm/dl LABORATORY SERVICES RDW-CV 21.5 (H) <14.7 % [facility] LABORATORY SERVICES RDW-SD 63.5 (H) <50.4 fl [facility] LABORATORY SERVICES Anisocytosis 2+ [facility] LABORATORY SERVICES PLT 418 (H) 141 - 377 /[facility] LABORATORY SERVICES MPV 9.5 9.5 - 12.7 fl [facility] LABORATORY SERVICES Neutrophils 78.0 % [facility] LABORATORY SERVICES Lymphocytes 17.1 % [facility] LABORATORY SERVICES Monocytes 3.9 % [facility] LABORATORY SERVICES Eosinophils 0.0 % [facility] LABORATORY SERVICES Basophils 0.1 % [facility] LABORATORY SERVICES Immature Grans 0.9 % [facility] LABORATORY SERVICES ABS Neutrophils 11.27 (H) 2.20 - 8.85 [facility] LABORATORY SERVICES ABS Lymphs 2.47 1.09 - 3.30 [facility] K/[facility] LABORATORY SERVICES ABS Monocytes 0.56 0.1 - 0.8 K/m [facility] LABORATORY SERVICES ABS Eosinophils 0.00 (L) 0.03 - 0.61 [facility] K/[facility] LABORATORY SERVICES ABS Basophils 0.01 0.01 - 0.11 [facility] K/[facility] LABORATORY SERVICES ABS Immature Grans 0.13 (H) 0 - 0.06 /[facility] LABORATORY SERVICES Type of Diff: Automated [facility] LABORATORY SERVICES Specimen Blood specimen (specimen) - Blood Performing Organization Address City/State/ZIP Code Phon e Number [facility] LABORATORY [address] [place] [address] SERVICES EKG 12-LEAD (12/23/2017 8:19 EDT) Specimen Narrative [facility] EKG - 01/17/2018 12:4 8 EDT ? [facility] ? Test Date: ?2017-12-23 Pat Name: ? ISH ORELLANA ? Department: ?? [address] ? Room: ? SB378 Gender: ? Female ? 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 Requested By: RENZO Vasquez Order Number: [id number] ? Reading : ?? AUBREY BELCHER ? Measurements Intervals ?[place] ? Rate: ? 87 ? P: ?89 GA: ? 304 ?QRS: ?48 QRSD: ? 92 ? T: ?5 QT: ? 380 ? QTc: ?458 ? Interpretive Statements SINUS RHYTHM WITH FIRST DEGREE AV BLOCK LOW QRS VOLTAGE IN PRECORDIAL LEADS NONSPECIFIC T-WAVE ABNORMALITY Automated Interpretation. ??Provider Int erpretation to follow. Compared to ECG 12/21/2017 04:24:47 T-wave abnormality now present ST (T wave) deviation no longer present I reviewed the tracing and have either a greed or edited the findings in this report. Electronically Signed On 01-18-20 12:48:21 EDT by AUBREY BELCHER. 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 Provider Inter pretation to follow. Compared to ECG 12/21/2017 04:24:47 T-wave abnormality now present ST (T wave) deviation no longer present I reviewed the tracing and have either a greed or edited the findings in this report. Electronically Signed On 01-18-20 12:48:21 EDT by AUBREY BELCHER. Performing Organization Address [facility]/ZIP Code Phon e Number [facility] EKG (ABNORMAL) ELECTROLYTES (12/23/2017 5:50 EDT) Pathologist Sig nature Sodium 133 (L) 136 - 145 mEq/L [facility] LABORA TORY SERVICES Potassium 4.2 3.5 - 5.0 mEq/L [facility] LABORA TORY SERVICES Chloride 101 96 - 110 mEq/L [facility] LABORAT ORY SERVICES CO2 27 22 - 32 mEq/L [facility] LABORATO RY SERVICES Specimen Blood specimen (specimen) - Blood Performing Organization Address [facility] e Number [facility] LABORATORY [address] [place] [address] SERVICES CREATININE (12/23/2017 5:50 EDT) Creatinine 0.69 0.52 - 1.04 [facility] mg/dl LABORATORY SERVICES GFR, Calculated 119 >60 [facility] Comment: ml/min/1.73m2 LABORATORY eGFR calculated using CKD-EPI equation for SERVICES non Americans. Multiply eGFR by 1.16 for Americans. Specimen Blood specimen (specimen) - Blood Performing Organization Address [facility]/ZIP [facility] Phon e Number [facility] LABORATORY [address] [place] [address] SERVICES BUN (12/23/2017 5:50 EDT) Pathologist Sig nature BUN 21 10 - 26 mg/dl [facility] LABORATO RY SERVICES Specimen Blood specimen (specimen) - Blood Performing Organization Address City/[facility]/ZIP [facility] Phon e Number [facility] LABORATORY [address] [place] [address] SERVICES GLUCOSE, GLUCOMETER (12/23/2017 5:39 EDT) Glucose, 94 70 - 100 [facility] Fingerstick mg/dl LABORATORY SERVICES Chuck Tender [place] [id number]: [facility] Test Performed by LABORATORY Nursing Services SERVICES Specimen Blood Performing Organization Address City/State/ZIP Code Phon e Number [facility] LABORATORY [address] [place] [address] A[address] W/WO AND PELVIS W CONTRAST (12/23/2017 5:20 EDT) Anatomical Region Laterality Modality Other Specimen Narrative [facility] RADIOLOGY MAIN CAMPUS - 12/23/2017 10:[address] ABD W/WO PELVIS W CONTRAST ??12/23/2017 5:20 AM Signs and Symptoms/Comments: ?? HCT drop, POD #3 after MVR, ho splenic a bscesses, assess for intra-abdominal or splenic bleeds Technique: 1st CT of the abdomen was per formed without contrast. Subsequently, CT of the abdomen and pelv is was performed following the administration intravenous contrast; coronal and sagittal multiplanar reconstructions generated. Comparison: Chest CT-12/19/2017 Findings: Lower chest: There is atelectasis in bot h lung bases. Bilateral pleural and single mediastinal drain are partially imaged. There is a small pericardial effusion containing high density fluid, likely blood. Prosthetic mitral valve is noted. There is air in the mediastinum. Hepatobiliary: No hepatic mass. No intra or extrahepatic biliary ductal dilatation. Cholelithiasis is not ed within the gallbladder which is otherwise unremarkable. Spleen, pancreas, adrenal glands: There are 2 large well-circumscribed ovoid hypodense regio ns in the spleen as well as several smaller hypodense wedge-shaped r egions. No evidence of associated hemorrhage. Adrenal glands ar e unremarkable. There is fat stranding and fluid adjacent to the panc reas. The pancreas itself maintains normal enhancement and demonst rates no ductal dilatation. Kidneys, ureters, bladder: No nephrolith iasis or hydronephrosis. Tiny 5 mm wedge-shaped hypodense region is noted in the lower pole of the right kidney (axial 163). There i s a small cyst in the upper pole of the left kidney. The bladder is decompressed by a Garcia catheter. Uterus, ovaries: The uterus is normal. T here is no adnexal mass. Bowel: No bowel obstruction or abnormal bowel wall thickening Peritoneal cavity / Subperitoneal space: There is a small amount of low density free fluid adjacent to the p ancreas, as mentioned above. Additionally, there is a small amount of free fluid in the mesentery and dependent pelvis. Lymphovascular: No enlarged lymph nodes. Major vascular structures are patent. Left renal vein is incidenta lly noted to be retroaortic. Abdominal wall: There is a small fat-con taining hernia. No bowel containing hernia. Mild body wall edema is noted. Musculoskeletal: No significant abnormal ity. Sternotomy wires are partially imaged. Impression: 1. Postsurgical changes in the chest fro m recent mitral valve replacement, as above, with a small high density component of the pericardial effusion consistent with blo od 2.Two large well-circumscribed ovoid hyp odense collection in the spleen may represent old areas of infarc tion or splenic abscesses. There are additional more ill-defined hy podense wedge-shaped splenic infarcts. No splenic hemorrhage. 3. Small amount of free fluid and fat st randing adjacent to the pancreas extending into the mesentery an d dependent pelvis. Correlate with lipase for evidence of pa ncreatitis. 4. Tiny 0.5 cm wedge-shaped hypodense re gion in the lower pole of the right kidney may reflect tiny infarc t or less likely a cyst. 5. Cholelithiasis I have personally reviewed the images an d the above interpretation and agree with the findings. Procedure Note Imtiaz Elias MD - 12/23/2017 CT ABD W/WO PELVIS W CONTRAST 12/23/2017 5:20 AM Signs and Symptoms/Comments: HCT drop, POD #3 after MVR, ho splenic a bscesses, assess for intra-abdominal or splenic bleeds Technique: 1st CT of the abdomen was per formed without contrast. Subsequently, CT of the abdomen and pelv is was performed following the administration intravenous contrast; coronal and sagittal multiplanar reconstructions generated. Comparison: Chest CT-12/19/2017 Findings: Lower chest: There is atelectasis in bot h lung bases. Bilateral pleural and single mediastinal drain are partially imaged. There is a small pericardial effusion containing high density fluid, likely blood. Prosthetic mitral valve is noted. There is air in the mediastinum. Hepatobiliary: No hepatic mass. No intra or extrahepatic biliary ductal dilatation. Cholelithiasis is not ed within the gallbladder which is otherwise unremarkable. Spleen, pancreas, adrenal glands: There are 2 large well-circumscribed ovoid hypodense regio ns in the spleen as well as several smaller hypodense wedge-shaped r egions. No evidence of associated hemorrhage. Adrenal glands ar e unremarkable. There is fat stranding and fluid adjacent to the panc reas. The pancreas itself maintains normal enhancement and demonst rates no ductal dilatation. Kidneys, ureters, bladder: No nephrolith iasis or hydronephrosis. Tiny 5 mm wedge-shaped hypodense region is noted in the lower pole of the right kidney (axial 163). There i s a small cyst in the upper pole of the left kidney. The bladder is decompressed by a Garcia catheter. Uterus, ovaries: The uterus is normal. T here is no adnexal mass. Bowel: No bowel obstruction or abnormal bowel wall thickening Peritoneal cavity / Subperitoneal space: There is a small amount of low density free fluid adjacent to the p ancreas, as mentioned above. Additionally, there is a small amount of free fluid in the mesentery and dependent pelvis. Lymphovascular: No enlarged lymph nodes. Major vascular structures are patent. Left renal vein is incidenta lly noted to be retroaortic. Abdominal wall: There is a small fat-con taining hernia. No bowel containing hernia. Mild body wall edema is noted. Musculoskeletal: No significant abnormal ity. Sternotomy wires are partially imaged. Impression: 1. Postsurgical changes in the chest fro m recent mitral valve replacement, as above, with a small high density component of the pericardial effusion consistent with blo od 2.Two large well-circumscribed ovoid hyp odense collection in the spleen may represent old areas of infarc tion or splenic abscesses. There are additional more ill-defined hy podense wedge-shaped splenic infarcts. No splenic hemorrhage. 3. Small amount of free fluid and fat st randing adjacent to the pancreas extending into the mesentery an d dependent pelvis. Correlate with lipase for evidence of pa ncreatitis. 4. Tiny 0.5 cm wedge-shaped hypodense re gion in the lower pole of the right kidney may reflect tiny infarc t or less likely a cyst. 5. Cholelithiasis I have personally reviewed the images an d the above interpretation and agree with the findings. Performing Organization Address City/State/ZIP Code Phon e Number [facility] RADIOLOGY MAIN CAMPUS PORTABLE CHEST 1 VIEW (12/23/2017 4:29 EDT) Anatomical Region Laterality Modality Other Specimen Narrative [facility] RADIOLOGY MAIN CAMPUS - 12/23/2017 8:44 EDT PORTABLE CHEST 1 VIEW ??12/23/2017 4:29 AM Clinical History/Comments: acute blood loss anemia, assess for hemo thorax Comparison: Chest radiographs-12/21/2017, 12/20/2017. Findings: Single portable AP semiupright view of t he chest. Lines/tubes/hardware: ??Right IJ sheath, right PICC, midline sternotomy wires, St. Bebeto's mitral valv e, bilateral pleural drains, and mediastinal drain are stable. Soft tissues and bones: No significant a bnormalities. Cardiac and mediastinal contours: No sig nificant abnormalities. Lungs: There is consolidation in the lef t retrocardiac region. Additionally, there are streaky opacitie s in the right lower lung. Pleura: There is no evidence of pneumoth orax or pleural fluid, but neither can be excluded on this non-upri ght radiograph. Impression: Stable exam with unchanged bibasilar ate lectasis. I have personally reviewed the images an d the above interpretation and agree with the findings. Procedure Note Ajit Bailon MD - 12/23/2017 PORTABLE CHEST 1 VIEW 12/23/2017 4:29 AM Clinical History/Comments: acute blood loss anemia, assess for hemo thorax Comparison: Chest radiographs-12/21/2017, 12/20/2017. Findings: Single portable AP semiupright view of t he chest. Lines/tubes/hardware: Right IJ sheath, r ight PICC, midline sternotomy wires, St. Bebeto's mitral valv e, bilateral pleural drains, and mediastinal drain are stable. Soft tissues and bones: No significant a bnormalities. Cardiac and mediastinal contours: No sig nificant abnormalities. Lungs: There is consolidation in the lef t retrocardiac region. Additionally, there are streaky opacitie s in the right lower lung. Pleura: There is no evidence of pneumoth orax or pleural fluid, but neither can be excluded on this non-upri ght radiograph. Impression: Stable exam with unchanged bibasilar ate lectasis. I have personally reviewed the images an d the above interpretation and agree with the findings. Performing Organization Address City/State/ZIP Code Phon e Number [facility] RADIOLOGY MAIN CAMPUS TYPE AND SCREEN (12/23/2017 4:20 EDT) Antibody Screen Negative [facility] BLOOD BANK Specimen Expires: 12/26/2017 @ 23:59 [facility] R BLOOD BANK ABO O [facility] BLOOD BANK Rh Factor Positive [facility] BLOOD BANK Specimen Blood specimen (specimen) Performing Organization Address [facility]/ZIP Code Phon e Number [facility] BLOOD BANK [address] BLOOD BANK PREPARE RED BLOOD CELLS (12/23/2017 4:07 EDT) Product Code [id number] [facility] BLOOD BANK Donor Number [id number] [facility] BLOOD BANK Unit ABO O [facility] BLOOD BANK Unit Rh POS [facility] BLOOD BANK Unit Status TR^Transfuse [facility] BLOOD BANK Product Expiration [id number] [facility] Date BLOOD BANK Unit Blood Type Code 5100 [facility] BLOOD BANK Coding System [id number] [facility] BLOOD BANK Specimen Blood specimen (specimen) Performing Organization Address City/[facility]/ZIP Code Phon e Number [facility] BLOOD BANK [address] [place] [address] BLOOD BANK LACTIC ACID (12/23/2017 2:12 EDT) Pathologist Sig nature Lactic Acid 0.8 <2.0 mmol/L [facility] LABORATOR Y SERVICES Specimen Blood specimen (specimen) - Blood Performing Organization Address City/[facility]/ZIP Code Phon e Number [facility] LABORATORY [address] [place] [address] SERVICES (ABNORMAL) HEMAGRAM AND DIFFERENTIAL (12/23/2017 2:12 EDT) Pathologist Sig nature WBC 12.61 (H) 4.0 - 12.4 [facility] K/cmm LABORATORY SERVICES RBC 2.29 (L) 3.86 - 5.04 [facility] LABORATORY SERVICES Hemoglobin 6.0 (LL) 11.6 - 15.2 [facility] gm/dl LABORATORY SERVICES HCT 18.8 (LL) 34.9 - 44.4 % [facility] LABORATORY SERVICES MCV 82 81 - 98 fl [facility] LABORATORY SERVICES MCH 26.2 (L) 26.7 - 33.3 pg [facility] LABORATORY SERVICES MCHC 31.9 (L) 32.1 - 35.9 [facility] gm/dl LABORATORY SERVICES RDW-CV 23.4 (H) <14.7 % [facility] LABORATORY SERVICES RDW-SD 68.9 (H) <50.4 fl [facility] LABORATORY SERVICES Anisocytosis 2+ [facility] LABORATORY SERVICES PLT 362 141 - 377 K/[facility] LABORATORY SERVICES MPV 9.3 (L) 9.5 - 12.7 fl [facility] LABORATORY SERVICES Neutrophils 77.1 % [facility] LABORATORY SERVICES Lymphocytes 17.7 % [facility] LABORATORY SERVICES Monocytes 4.4 % [facility] LABORATORY SERVICES Eosinophils 0.0 % [facility] LABORATORY SERVICES Basophils 0.1 % [facility] LABORATORY SERVICES Immature Grans 0.7 % [facility] LABORATORY SERVICES ABS Neutrophils 9.72 (H) 2.20 - 8.85 [facility] LABORATORY SERVICES ABS Lymphs 2.23 1.09 - 3.30 [facility] LABORATORY SERVICES ABS Monocytes 0.56 0.1 - 0.8 K/[facility] LABORATORY SERVICES ABS Eosinophils 0.00 (L) 0.03 - 0.61 [facility] LABORATORY SERVICES ABS Basophils 0.01 0.01 - 0.11 [facility] LABORATORY SERVICES ABS Immature Grans 0.09 (H) 0 - 0.06 K/[facility] LABORATORY SERVICES Type of Diff: Automated [facility] LABORATORY SERVICES Specimen Blood specimen (specimen) - Blood Performing Organization Address City/State/ZIP Code Phon e Number [facility] LABORATORY [address] [place] [address] SERVICES (ABNORMAL) GLUCOSE, GLUCOMETER (12/22/2017 21:34 EDT) Glucose, 103 (H) 70 - 100 [facility] Fingerstick mg/dl LABORATORY SERVICES Chuck Tender [place] [id number]: [facility] Test Performed by LABORATORY Nursing Services SERVICES Specimen Blood Performing Organization Address [facility]/ZIP Code Phon e Number [facility] LABORATORY [address] [place] [address] SERVICES (ABNORMAL) GLUCOSE, GLUCOMETER (12/22/2017 12:26 EDT) Glucose, 115 (H) 70 - 100 [facility] Fingerstick mg/dl LABORATORY SERVICES Chuck Tender [place] [id number]: [facility] Test Performed by LABORATORY Nursing Services SERVICES Specimen Blood Performing Organization Address City/[facility]/ZIP Code Phon e Number [facility] LABORATORY [address] [place] [address] SERVICES INPATIENT ADD-ON (12/22/2017 12:15 EDT) Pathologist Sig nature Tests to be added CREATININE,BUN [facility] LABORATORY SERVICES Number for problems [id number] [facility] LABORATORY SERVICES Accession number [id number] [facility] LABORATORY SERVICES Specimen Other Performing Organization Address [facility] Phon e Number [facility] LABORATORY [address] [place] [address] SERVICES (ABNORMAL) GLUCOSE, GLUCOMETER (12/22/2017 6:46 EDT) Glucose, 123 (H) 70 - 100 [facility] Fingerstick mg/dl LABORATORY SERVICES Chuck Tender [place] [id number]: [facility] Test Performed by LABORATORY Nursing Services SERVICES Specimen Blood Performing Organization Address [facility]/ZIP [facility] Phon e Number [facility] LABORATORY [address] [place] [address] SERVICES CREATININE (12/22/2017 5:48 EDT) Creatinine 0.82 0.52 - 1.04 [facility] mg/dl LABORATORY SERVICES GFR, Calculated 98 >60 [facility] Comment: ml/min/1.73m2 LABORATORY eGFR calculated using CKD-EPI equation for SERVICES non Americans. Multiply eGFR by 1.16 for Americans. Specimen Blood Performing Organization Address City/[facility]/ZIP Code Phon e Number [facility] LABORATORY [address] [place] [address] SERVICES BUN (12/22/2017 5:48 EDT) Pathologist Sig nature BUN 25 10 - 26 mg/dl [facility] LABORATO RY SERVICES Specimen Blood Performing Organization Address [facility]/ZIP Code Phon e Number [facility] LABORATORY [address] [place] [address] SERVICES (ABNORMAL) ELECTROLYTES (12/22/2017 5:48 EDT) Pathologist Sig nature Sodium 132 (L) 136 - 145 mEq/L [facility] LABORA TORY SERVICES Potassium 4.3 3.5 - 5.0 mEq/L [facility] LABORA TORY SERVICES Chloride 99 96 - 110 mEq/L [facility] LABORAT ORY SERVICES CO2 26 22 - 32 mEq/L [facility] LABORATO RY SERVICES Specimen Blood specimen (specimen) - Blood Performing Organization Address [facility] Phon e Number [facility] LABORATORY [address] [place] [address] SERVICES (ABNORMAL) GENTAMICIN PEAK (12/21/2017 22:13 EDT) Gentamicin Peak 3.6 (L) 5.0 - 12.0 [facility] ug/ml LABORATORY SERVICES Type of Draw CATHETER, ANY [facility] LABORATORY SERVICES Specimen Blood specimen (specimen) - Blood Performing Organization Address [facility]/ZIP [facility] Phon e Number [facility] LABORATORY [address] [place] [address] SERVICES (ABNORMAL) GLUCOSE, GLUCOMETER (12/21/2017 21:12 EDT) Glucose, 109 (H) 70 - 100 [facility] Fingerstick mg/dl LABORATORY SERVICES Chuck Tender [place] [id number]: [facility] Test Performed by LABORATORY Nursing Services SERVICES Specimen Blood Performing Organization Address [facility]/ZIP [facility] Phon e Number [facility] LABORATORY [address] [place] [address] SERVICES GENTAMICIN TROUGH (12/21/2017 20:53 EDT) Pathologist Sig nature Gentamicin Trough 0.7 <1.5 ug/ml [facility] LABORATORY SERVICES Type of Draw CATHETER, ANY [facility] LABORATORY SERVICES Specimen Blood specimen (specimen) - Blood Performing Organization Address [facility]/ZIP [facility] Phon e Number [facility] LABORATORY [address] [place] [address] SERVICES (ABNORMAL) GLUCOSE, GLUCOMETER (12/21/2017 17:44 EDT) Glucose, 109 (H) 70 - 100 [facility] Fingerstick mg/dl LABORATORY SERVICES Chuck Tender [place] [id number]: [facility] Test Performed by LABORATORY Nursing Services SERVICES Specimen Blood Performing Organization Address City/State/ZIP Code Phon e Number [facility] LABORATORY [address] [place] [address] SERVICES PORTABLE CHEST 1 VIEW (12/21/2017 16:18 EDT) Anatomical Region Laterality Modality Other Specimen Narrative [facility] RADIOLOGY MAIN [place] - 12/21/2017 16:24 EDT PORTABLE CHEST 1 VIEW ??12/21/2017 4:18 PM Clinical History/Comments: PICC line tugged, assess for placement Comparison: Chest radiograph 12/21/17 at 0621 hours.. Findings: Single portable AP view of the chest. Findings: ??The right internal jugular s sharan remains, with the catheter seen previously through the she ath having been removed. The right-sided PICC line is seen its tip in the right atrium. The PICC line has not moved proximally as compare d to the prior study. Bilateral pleural Vikash drains and a med iastinal drain remain, with one of the mediastinal drains seen previ ously having been removed. The patient is status post midline bansal otomy. There is persistent dense left lower lobe and incomplete rig ht lower lobe atelectasis. Procedure Note Marty Neville MD - 12/21/2017 PORTABLE CHEST 1 VIEW 12/21/2017 4:18 PM Clinical History/Comments: PICC line tugged, assess for placement Comparison: Chest radiograph 12/21/17 at 0621 hours.. Findings: Single portable AP view of the chest. Findings: The right internal jugular she ath remains, with the catheter seen previously through the she ath having been removed. The right-sided PICC line is seen its tip in the right atrium. The PICC line has not moved proximally as compare d to the prior study. Bilateral pleural Vikash drains and a med iastinal drain remain, with one of the mediastinal drains seen previ ously having been removed. The patient is status post midline bansal otomy. There is persistent dense left lower lobe and incomplete rig ht lower lobe atelectasis. Performing Organization Address City/[facility]/ZIP Code Phon e Number [facility] RADIOLOGY MAIN [place] (ABNORMAL) GLUCOSE, GLUCOMETER (12/21/2017 13:50 EDT) Glucose, 116 (H) 70 - 100 [facility] Fingerstick mg/dl LABORATORY SERVICES Chuck Tender [place] [id number]: [facility] Test Performed by LABORATORY Nursing Services SERVICES Specimen Blood Performing Organization Address City/[facility]/ZIP Code Phon e Number [facility] LABORATORY [address] [place] [address] SERVICES (ABNORMAL) GLUCOSE, GLUCOMETER (12/21/2017 12:03 EDT) Glucose, 117 (H) 70 - 100 [facility] Fingerstick mg/dl LABORATORY SERVICES Chuck Tender [place] [id number]: [facility] Test Performed by LABORATORY Nursing Services SERVICES Specimen Blood Performing Organization Address City/[facility]/ZIP [facility] Phon e Number [facility] LABORATORY [address] [place] [address] SERVICES (ABNORMAL) GLUCOSE, GLUCOMETER (12/21/2017 10:19 EDT) Glucose, 124 (H) 70 - 100 [facility] Fingerstick mg/dl LABORATORY SERVICES Chuck Tender [place] [id number]: [facility] Test Performed by LABORATORY Nursing Services SERVICES Specimen Blood Performing Organization Address City/State/ZIP Code Phon e Number [facility] LABORATORY [address] [place] [address] SERVICES (ABNORMAL) GLUCOSE, GLUCOMETER (12/21/2017 8:15 EDT) Glucose, 124 (H) 70 - 100 [facility] Fingerstick mg/dl LABORATORY SERVICES Chuck Tender [place] [id number]: [facility] Test Performed by LABORATORY Nursing Services SERVICES Specimen Blood Performing Organization Address City/[facility]/ZIP [facility] Phon e Number [facility] LABORATORY [address] [place] [address] SERVICES PORTABLE CHEST 1 VIEW (12/21/2017 7:01 EDT) Anatomical Region Laterality Modality Other Specimen Narrative [facility] RADIOLOGY MAIN [facility] - 12/21/2017 10:38 EDT PORTABLE CHEST 1 VIEW ??12/21/2017 7:01 AM Clinical History/Comments: chest pain, shortness of breath Comparison: Multiple prior chest radiographs most re cently from 12/20/2017, CT of the chest from 12/19/2017. Findings: Single semiupright AP view of the chest. Lines/tubes: ??There has been interval e xtubation and removal of a nasogastric tube. A right internal jugul ar venous sheath and catheter, mediastinal drains, and multip le pleural drains remain in place. Soft tissues and bones: Median sternotom y wires are aligned and intact. Cardiac and mediastinal contours: The pa tient is status post mitral valve replacement. Lungs: Lung volumes remain low with bron chovascular crowding. Bandlike opacity in the right midlung [place] s improved. There continues to be some bandlike opacity in the left costophrenic angle. Hazy opacity in the left retrocardiac region reflecting a component of left lower lobe atelectasis is unchanged Pleura: No obvious pleural effusion or p neumothorax is identified. Impression: Slight overall improvement in scattered areas of atelectasis. I have personally reviewed the images an d the above interpretation and agree with the findings. Procedure Note Rick Ardon MD - 12/21/2017 PORTABLE CHEST 1 VIEW 12/21/2017 7:01 AM Clinical History/Comments: chest pain, shortness of breath Comparison: Multiple prior chest radiographs most re cently from 12/20/2017, CT of the chest from 12/19/2017. Findings: Single semiupright AP view of the chest. Lines/tubes: There has been interval ext ubation and removal of a nasogastric tube. A right internal jugul ar venous sheath and catheter, mediastinal drains, and multip le pleural drains remain in place. Soft tissues and bones: Median sternotom y wires are aligned and intact. Cardiac and mediastinal contours: The pa tient is status post mitral valve replacement. Lungs: Lung volumes remain low with bron chovascular crowding. Bandlike opacity in the right midlung [place] s improved. There continues to be some bandlike opacity in the left costophrenic angle. Hazy opacity in the left retrocardiac region reflecting a component of left lower lobe atelectasis is unchanged Pleura: No obvious pleural effusion or p neumothorax is identified. Impression: Slight overall improvement in scattered areas of atelectasis. I have personally reviewed the images an d the above interpretation and agree with the findings. Performing Organization Address City/State/ZIP Code Phon e Number [facility] RADIOLOGY MAIN [facility]AMPUS POTASSIUM (12/21/2017 5:56 EDT) Pathologist Sig nature Potassium 4.7 3.5 - 5.0 mEq/L [facility] LABORA TORY SERVICES Specimen Blood specimen (specimen) - Blood Performing Organization Address City/State/ZIP Code Phon e Number [facility] LABORATORY [address] [place] [address] SERVICES (ABNORMAL) GLUCOSE, GLUCOMETER (12/21/2017 5:55 EDT) Glucose, 101 (H) 70 - 100 [facility] Fingerstick mg/dl LABORATORY SERVICES Chuck Tender [place] [id number]: [facility] Test Performed by LABORATORY Nursing Services SERVICES Specimen Blood Performing Organization Address City/State/ZIP Code Phon e Number [facility] LABORATORY [address] [place] [address] SERVICES EKG 12-LEAD (12/21/2017 4:24 EDT) Specimen Narrative [facility] EKG - 12/21/2017 21:4 7 EDT ? [facility] ? Test Date: ?2017-12-21 Pat Name: ? ISH ORELLANA ? Department: ?? [place] [facility] ? Room: ? 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 Female ? 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 Requested By: MARTHA Silva Number: [id number] ? Reading : ?? ALEX DINERO MD ? Measurements Intervals ?[place] ? Rate: ? 77 ? P: ?54 GA: ? 264 ?QRS: ?57 QRSD: ? 89 ? T: ?23 QT: ? 380 ? QTc: ?430 ? Interpretive Statements SINUS RHYTHM WITH FIRST DEGREE AV BLOCK LOW QRS VOLTAGE IN PRECORDIAL LEADS MODERATE ST DEPRESSION Compared to ECG 12/20/2017 21:56:56 First degree AV block now present Low QRS voltage now present ST (T wave) deviation now present Atrial-paced complex(es) or rhythm no lo nger present I reviewed the tracing and have either a greed or edited the findings in this report. Electronically Signed On 12-22-19 21:47:17 EDT by ALEX DINERO MD. 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 Electronically Signed On 12-22-19 21:47:17 EDT by ALEX DINERO MD. Performing Organization Address City/[facility]/ZIP Code Phon e Number [facility] EKG (ABNORMAL) GLUCOSE, GLUCOMETER (12/21/2017 4:19 EDT) Glucose, 142 (H) 70 - 100 [facility] Fingerstick mg/dl LABORATORY SERVICES Chuck Tender [place] [id number]: [facility] Test Performed by LABORATORY Nursing Services SERVICES Specimen Blood Performing Organization Address City/[facility]/ZIP [facility] Phon e Number [facility] LABORATORY [address] [place] [address] SERVICES (ABNORMAL) GLUCOSE, GLUCOMETER (12/21/2017 2:05 EDT) Glucose, 142 (H) 70 - 100 [facility] Fingerstick mg/dl LABORATORY SERVICES Chuck Tender [place] [id number]: [facility] Test Performed by LABORATORY Nursing Services SERVICES Specimen Blood Performing Organization Address City/[facility]/ZIP Code Phon e Number [facility] LABORATORY [address] [place] [address] SERVICES (ABNORMAL) GLUCOSE, GLUCOMETER (12/21/2017 2:03 EDT) Glucose, 163 (H) 70 - 100 [facility] Fingerstick mg/dl LABORATORY SERVICES Chuck Tender [place] [id number]: [facility] Test Performed by LABORATORY Nursing Services SERVICES Specimen Blood Performing Organization Address [facility]/ZIP [facility] Phon e Number [facility] LABORATORY [address] [place] [address] SERVICES CALCIUM, IONIZED (12/21/2017 2:01 EDT) Pathologist Sig nature Calcium, Ionized 1.26 1.12 - 1.32 mmol/L [facility] LABORATORY SERVICES Specimen Blood specimen (specimen) - Blood Performing Organization Address City/State/ZIP Code Phon e Number [facility] LABORATORY [address] [place] [address] SERVICES (ABNORMAL) HEMAGRAM (12/21/2017 2:01 EDT) Pathologist Sig nature WBC 11.24 4.0 - 12.4 K/cmm [facility] LABORATORY SERVICES RBC 2.96 (L) 3.86 - 5.04 M/cmm [facility] LABORATORY SERVICES Hemoglobin 7.7 (L) 11.6 - 15.2 gm/dl [facility] LABORATORY SERVICES HCT 24.6 (L) 34.9 - 44.4 % [facility] LABORATORY SERVICES MCV 83 81 - 98 fl [facility] LABORATORY SERVICES MCH 26.0 (L) 26.7 - 33.3 pg [facility] LABORATORY SERVICES Hypochromia 1+ [facility] LABORATORY SERVICES MCHC 31.3 (L) 32.1 - 35.9 gm/dl [facility] LABORATORY SERVICES RDW-CV 22.6 (H) <14.7 % [facility] LABORATORY SERVICES RDW-SD 67.5 (H) <50.4 fl [facility] LABORATORY SERVICES Anisocytosis 2+ [facility] LABORATORY SERVICES PLT 283 141 - 377 K/cmm [facility] LABORATORY SERVICES MPV 9.6 9.5 - 12.7 fl [facility] LABORATORY SERVICES Specimen Blood specimen (specimen) - Blood Performing Organization Address City/State/ZIP Code Phon e Number [facility] LABORATORY [address] [place] [address] SERVICES (ABNORMAL) CREATININE (12/21/2017 2:01 EDT) Creatinine 1.13 (H) 0.52 - 1.04 [facility] mg/dl LABORATORY SERVICES GFR, Calculated 66 >60 [facility] Comment: ml/min/1.73m2 LABORATORY eGFR calculated using CKD-EPI equation for SERVICES non Americans. Multiply eGFR by 1.16 for Americans. Specimen Blood specimen (specimen) - Blood Performing Organization Address City/State/ZIP Code Phon e Number [facility] LABORATORY [address] [place] [address] SERVICES BUN (12/21/2017 2:01 EDT) Pathologist Sig nature BUN 15 10 - 26 mg/dl [facility] Specimen Blood specimen (specimen) - Blood Performing Organization Address [facility] Phon e Number [facility] LABORATORY [address] [place] [address] SERVICES (ABNORMAL) ELECTROLYTES (12/21/2017 2:01 EDT) Pathologist Sig nature Sodium 135 (L) 136 - 145 mEq/L [facility] LABORA TORY SERVICES Potassium 5.6 (H) 3.5 - 5.0 mEq/L [facility] LABORA TORY SERVICES Chloride 105 96 - 110 mEq/L [facility] LABORAT ORY SERVICES CO2 20 (L) 22 - 32 mEq/L [facility] LABORATO RY SERVICES Specimen Blood specimen (specimen) - Blood Performing Organization Address [facility] Phon e Number [facility] LABORATORY [address] [place] [address] SERVICES GLUCOSE, GLUCOMETER (12/21/2017 0:13 EDT) Glucose, 83 70 - 100 [facility] Fingerstick mg/dl LABORATORY SERVICES Chuck Tender [place] [id number]: [facility] Test Performed by LABORATORY Nursing Services SERVICES Specimen Blood Performing Organization Address City/[facility] Phon neli Number [facility] LABORATORY [address] [place] [address] SERVICES EKG 12-LEAD (12/20/2017 21:56 EDT) Specimen Narrative [facility] EKG - 12/21/2017 13:5 2 EDT ? [facility] ? Test Date: ?2017-12-20 Pat Name: ? ISH ORELLANA ? Department: ?? [place] ? Room: ? 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 Female ? 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 Requested By: RENNY LA SINGH Order Number: [id number] ? Reading MD: ?? QUE ADES MD ? Measurements Intervals ?[place] ? Rate: ? 63 ? P: ?137 GA: ? 292 ?QRS: ?76 QRSD: ? 97 ? T: ?36 QT: ? 422 ? QTc: ?435 ? 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 Electronically Signed On 12-22-19 13:52:22 EDT by QUE DAWSON MD. 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 Electronically Signed On 12-22-19 13:52:22 EDT by QUE DAWSON MD. Performing Organization Address [facility]/ZIP Code Phon e Number [facility] EKG (ABNORMAL) POTASSIUM (12/20/2017 21:53 EDT) Pathologist Sig nature Potassium 6.8 (HH) 3.5 - 5.0 mEq/L [facility] LABORATORY SERVICES Specimen Blood specimen (specimen) - Blood Performing Organization Address [facility]/ZIP [facility] Phon e Number [facility] LABORATORY [address] [place] [address] SERVICES GLUCOSE, GLUCOMETER (12/20/2017 21:52 EDT) Glucose, 93 70 - 100 [facility] Fingerstick mg/dl LABORATORY SERVICES Chuck Tender ID [id number]: [facility] Test Performed by LABORATORY Nursing Services SERVICES Specimen Blood Performing Organization Address [facility]/ZIP [facility] Phon e Number [facility] LABORATORY [address] [place] [address] SERVICES (ABNORMAL) CALCIUM, IONIZED (12/20/2017 21:34 EDT) Pathologist Sig nature Calcium, Ionized 1.05 (L) 1.12 - 1.32 [facility] mmol/L LABORATORY SERVICES Specimen Blood specimen (specimen) - Blood Performing Organization Address City/[facility]/ZIP Code Phon e Number [facility] LABORATORY [address] [place] [address] SERVICES GLUCOSE, GLUCOMETER (12/20/2017 21:10 EDT) Glucose, 91 70 - 100 [facility] Fingerstick mg/dl LABORATORY SERVICES Chuck Tender [place] [id number]: [facility] Test Performed by LABORATORY Nursing Services SERVICES Specimen Blood Performing Organization Address City/[facility]/ZIP Code Phon e Number [facility] LABORATORY [address] [place] [address] SERVICES (ABNORMAL) HEMAGRAM (12/20/2017 21:08 EDT) Pathologist Sig nature WBC 15.32 (H) 4.0 - 12.4 K/cmm [facility] LABORATORY SERVICES RBC 3.10 (L) 3.86 - 5.04 M/cmm [facility] LABORATORY SERVICES Hemoglobin 7.9 (L) 11.6 - 15.2 gm/dl [facility] LABORATORY SERVICES HCT 25.1 (L) 34.9 - 44.4 % [facility] LABORATORY SERVICES MCV 81 81 - 98 fl [facility] LABORATORY SERVICES MCH 25.5 (L) 26.7 - 33.3 pg [facility] LABORATORY SERVICES Hypochromia 1+ [facility] LABORATORY SERVICES MCHC 31.5 (L) 32.1 - 35.9 gm/dl [facility] LABORATORY SERVICES RDW-CV 22.4 (H) <14.7 % [facility] LABORATORY SERVICES RDW-SD 66.5 (H) <50.4 fl [facility] LABORATORY SERVICES Anisocytosis 2+ [facility] LABORATORY SERVICES PLT 297 141 - 377 K/cmm [facility] LABORATORY SERVICES MPV 9.4 (L) 9.5 - 12.7 fl [facility] LABORATORY SERVICES Specimen Blood specimen (specimen) - Blood Performing Organization Address City/[facility]/ZIP Code Phon e Number [facility] LABORATORY [address] [place] [address] SERVICES (ABNORMAL) POTASSIUM (12/20/2017 21:08 EDT) Pathologist Sig nature Potassium 6.6 (HH) 3.5 - 5.0 mEq/L [facility] LABORATORY SERVICES Specimen Blood specimen (specimen) - Blood Performing Organization Address City/[facility]/ZIP Code Phon e Number [facility] LABORATORY [address] [place] [address] SERVICES (ABNORMAL) GLUCOSE, GLUCOMETER (12/20/2017 19:55 EDT) Glucose, 122 (H) 70 - 100 [facility] Fingerstick mg/dl LABORATORY SERVICES Chuck Tender ID [id number]: [facility] Test Performed by LABORATORY Nursing Services SERVICES Specimen Blood Performing Organization Address City/[facility]/ZIP Code Phon e Number [facility] LABORATORY [address] [place] [address] SERVICES (ABNORMAL) BLOOD GAS, G3 ISTAT (12/20/2017 19:03 EDT) pH, i-STAT 7.33 (L) 7.35 - 7.45 [facility] LABORATORY SERVICES pCO2, i-STAT 46 (H) 35 - 45 mmHg [facility] LABORATORY SERVICES pO2, i-STAT 109 (H) 80 - 105 mmHg [facility] LABORATORY SERVICES TCO2, i-STAT 25 23 - 27 mEq/L [facility] LABORATORY SERVICES O2 Saturation 98 95 - 98 % [facility] LABORATORY SERVICES Base Deficit, 2 [facility] i-STAT CENTER LABORATORY SERVICES FIO2 30 [facility] LABORATORY SERVICES Sample Type ARTERIAL [facility] LABORATORY csr retail ID [phone] [facility] Comment: CENTER LABORATORY Test Performed by Respiratory SERVICES For non-arterial reference ranges, please see ISTAT procedure. Specimen Blood Performing Organization Address City/[facility]/ZIP Code Phon e Number [facility] LABORATORY [address] [place] [address] SERVICES (ABNORMAL) GLUCOSE, GLUCOMETER (12/20/2017 18:12 EDT) Glucose, 117 (H) 70 - 100 [facility] Fingerstick mg/dl LABORATORY SERVICES Chuck Tender [place] [id number]: [facility] Test Performed by LABORATORY Nursing Services SERVICES Specimen Blood Performing Organization Address City/State/ZIP Code Phon e Number [facility] LABORATORY [address] [place] [address] SERVICES GLUCOSE, GLUCOMETER (12/20/2017 16:50 EDT) Glucose, 90 70 - 100 [facility] Fingerstick mg/dl LABORATORY SERVICES Chuck Tender [place] [id number]: [facility] Test Performed by LABORATORY Nursing Services SERVICES Specimen Blood Performing Organization Address City/State/ZIP Code Phon e Number [facility] LABORATORY [address] [place] [address] SERVICES (ABNORMAL) BLOOD GAS, G3 ISTAT (12/20/2017 16:39 EDT) pH, i-STAT 7.32 (L) 7.35 - 7.45 [facility] LABORATORY SERVICES pCO2, i-STAT 49 (H) 35 - 45 mmHg [facility] LABORATORY SERVICES pO2, i-STAT 141 (H) 80 - 105 mmHg [facility] LABORATORY SERVICES TCO2, i-STAT 26 23 - 27 mEq/L [facility] LABORATORY SERVICES O2 Saturation 99 (H) 95 - 98 % [facility] LABORATORY SERVICES Base Deficit, 1 [facility] i-STAT CENTER LABORATORY SERVICES FIO2 40 [facility] LABORATORY SERVICES Sample Type ARTERIAL [facility] LABORATORY csr retail ID [phone] [facility] Comment: CENTER LABORATORY Test Performed by Respiratory SERVICES For non-arterial reference ranges, please see ISTAT procedure. Specimen Blood Performing Organization Address City/State/ZIP Code Phon e Number [facility] LABORATORY [address] [place] [address] SERVICES PORTABLE CHEST PA CENTRAL LINE/PICC/ET TUBE,INITIAL INSERTION (12/20/2017 15:41 EDT) Anatomical Region Laterality Modality Other Specimen Narrative [facility] RADIOLOGY [facility]IN [facility] - 12/20/2017 16:03 EDT PORTABLE CHEST 1 VIEW INITIAL LINE, ET INSERTION ??12/20/2017 3:41 PM Signs and Symptoms/Comments: ?? mitral valve endocarditis MVR tissue Cornelia tral line and ET tube placement Comparison: Radiograph 12/17/2017, 12/06/2017, 12/07/2017 , chest CT 12/19/2017. Technique: Frontal portable AP semiupright radiogra ph of the chest was performed. Findings: Soft tissues: ??There is a right interna l jugular catheter with its distal tip at the confluence with the medina bclavian at the upper SVC. Endotracheal tube is within the mid trac hea. Transesophageal tube continues beyond the gastroesophageal ju nction. Left-sided pleural and mediastinal drains and a right pleur al drain are noted. Bones: Median sternotomy wires are intac t and well aligned. Cardiac and mediastinal contours: The pa tient has had a mitral valve replacement. Lungs: Bandlike opacity is seen in the r ight midlung and left lower lung near the cardiophrenic angle which likely reflects atelectasis. ?? Pleura/diaphragms: No pleural effusion i s seen. Pneumothorax cannot be entirely excluded on a semiupright ra diograph. Impression: Postoperative changes in this patient im mediately status post mitral valve replacement. I have personally reviewed the images an d the above interpretation and agree with the findings. Procedure Note Marty Neville MD - 12/20/2017 PORTABLE CHEST 1 VIEW INITIAL LINE, ET I NSERTION 12/20/2017 3:41 PM Signs and Symptoms/Comments: mitral valve endocarditis MVR tissue Cornelia tral line and ET tube placement Comparison: Radiograph 12/17/2017, 12/06/2017, 12/07/2017 , chest CT 12/19/2017. Technique: Frontal portable AP semiupright radiogra ph of the chest was performed. Findings: Soft tissues: There is a right internal jugular catheter with its distal tip at the confluence with the medina bclavian at the upper SVC. Endotracheal tube is within the mid trac hea. Transesophageal tube continues beyond the gastroesophageal ju nction. Left-sided pleural and mediastinal drains and a right pleur al drain are noted. Bones: Median sternotomy wires are intac t and well aligned. Cardiac and mediastinal contours: The pa tient has had a mitral valve replacement. Lungs: Bandlike opacity is seen in the r ight midlung and left lower lung near the cardiophrenic angle which likely reflects atelectasis. Pleura/diaphragms: No pleural effusion i s seen. Pneumothorax cannot be entirely excluded on a semiupright ra diograph. Impression: Postoperative changes in this patient im mediately status post mitral valve replacement. I have personally reviewed the images an d the above interpretation and agree with the findings. Performing Organization Address City/State/ZIP Code Phon e Number [facility] RADIOLOGY MAIN [facility]AMPUS EKG 12-LEAD (12/20/2017 15:41 EDT) Specimen Narrative [facility] EKG - 12/21/2017 21:4 1 EDT ? [facility] ? Test Date: ?2017-12-20 Pat Name: ? ISH ORELLANA ? Department: ?? [place] [address] ? Room: ? 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 Female ? 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 Requested By: MARTHA LEVY Order Number: [id number] ? Reading MD: ?? ALEX DINERO MD ? Measurements Intervals ?[place] ? Rate: ? 44 ? P: ? GA: ? 0 ?QRS: ?96 QRSD: ? 102 ?T: ?7 QT: ? 487 ? QTc: ?419 ? Interpretive Statements SUPRAVENTRICULAR BRADYCARDIA BORDERLINE RIGHT AXIS DEVIATION MINIMAL ST DEPRESSION Compared to ECG 12/13/2017 07:25:15 ST (T wave) deviation now present Sinus rhythm no longer present I reviewed the tracing and have either a greed or edited the findings in this report. Electronically Signed On 12-22-19 21:41:02 EDT by ALEX DINERO MD. 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 Electronically Signed On 12-22-19 21:41:02 EDT by ALEX DINERO MD. Performing Organization Address City/State/ZIP Code Phon e Number [facility] EKG MRSA PCR (12/20/2017 15:34 EDT) Pathologist Sig nature Result No Staphylococcus aureus [facility] detected by PCR. LABORATORY SERVICES Specimen Other (qualifier value) - Nasal Performing Organization Address City/State/ZIP Code Phon e Number [facility] LABORATORY [address] [place] [address] SERVICES GLUCOSE, GLUCOMETER (12/20/2017 15:33 EDT) Glucose, 90 70 - 100 [facility] Fingerstick mg/dl LABORATORY SERVICES Chuck Tender [place] [id number]: [facility] Test Performed by LABORATORY Nursing Services SERVICES Specimen Blood Performing Organization Address [facility]/ZIP Code Phon e Number [facility] LABORATORY [address] [place] [address] SERVICES (ABNORMAL) HEMAGRAM (12/20/2017 15:28 EDT) Pathologist Sig nature WBC 15.21 (H) 4.0 - 12.4 K/cmm [facility] LABORATORY SERVICES RBC 2.96 (L) 3.86 - 5.04 M/cmm [facility] LABORATORY SERVICES Hemoglobin 7.9 (L) 11.6 - 15.2 gm/dl [facility] LABORATORY SERVICES HCT 24.4 (L) 34.9 - 44.4 % [facility] LABORATORY SERVICES MCV 82 81 - 98 fl [facility] LABORATORY SERVICES MCH 26.7 26.7 - 33.3 pg [facility] LABORATORY SERVICES MCHC 32.4 32.1 - 35.9 gm/dl [facility] LABORATORY SERVICES RDW-CV 22.8 (H) <14.7 % [facility] LABORATORY SERVICES RDW-SD 68.5 (H) <50.4 fl [facility] LABORATORY SERVICES Anisocytosis 2+ [facility] LABORATORY SERVICES PLT 256 141 - 377 K/cmm [facility] LABORATORY SERVICES MPV 9.2 (L) 9.5 - 12.7 fl [facility] LABORATORY SERVICES Specimen Blood specimen (specimen) - Blood Performing Organization Address City/State/ZIP Code Phon e Number [facility] LABORATORY [address] [place] [address] SERVICES (ABNORMAL) POTASSIUM (12/20/2017 15:28 EDT) Pathologist Sig nature Potassium 5.2 (H) 3.5 - 5.0 mEq/L [facility] LABORA TORY SERVICES Specimen Blood specimen (specimen) - Blood Performing Organization Address City/State/ZIP Code Phon e Number [facility] LABORATORY [address] [place] [address] SERVICES (ABNORMAL) HEMAGRAM (12/20/2017 14:00 EDT) Pathologist Sig nature WBC 16.86 (H) 4.0 - 12.4 K/cmm [facility] LABORATORY SERVICES RBC 2.93 (L) 3.86 - 5.04 M/cmm [facility] LABORATORY SERVICES Hemoglobin 7.5 (L) 11.6 - 15.2 gm/dl [facility] LABORATORY SERVICES HCT 24.3 (L) 34.9 - 44.4 % [facility] LABORATORY SERVICES MCV 83 81 - 98 fl [facility] LABORATORY SERVICES MCH 25.6 (L) 26.7 - 33.3 pg [facility] LABORATORY SERVICES Hypochromia 1+ [facility] LABORATORY SERVICES MCHC 30.9 (L) 32.1 - 35.9 gm/dl [facility] LABORATORY SERVICES RDW-CV 22.5 (H) <14.7 % [facility] LABORATORY SERVICES RDW-SD 68.4 (H) <50.4 fl [facility] LABORATORY SERVICES Anisocytosis 2+ [facility] LABORATORY SERVICES PLT 231 141 - 377 [facility] SERVICES MPV 8.9 (L) 9.5 - 12.7 fl [facility] LABORATORY SERVICES Specimen Blood specimen (specimen) - Blood Performing Organization Address City/State/ZIP Code Phon e Number [facility] LABORATORY [address] [place] [address] SERVICES FIBRINOGEN (12/20/2017 14:00 EDT) Pathologist Sig nature Fibrinogen 328 171 - 384 mg/dl [facility] LABORA TORY SERVICES Specimen Blood specimen (specimen) - Blood Performing Organization Address City/[facility]/ZIP Code Phon e Number [facility] LABORATORY [address] [place] [address] SERVICES (ABNORMAL) PROTIME (12/20/2017 14:00 EDT) Pro Time 17.3 (H)Comment: NOTE 10.3 - 13.4 [facility] NEW REFERENCE RANGE secs LABORATORY SERVICE S OF OCT 07 2017 I.N.R. 1.5 (H) 0.9 - 1.1 [facility] Comment: Ratio LABORATORY SERVICES Moderate Intensity Coumadin INR = 2.0-3.0 Adjustments in anticoagulant therapy dose should be based upon the INR and NOT the Pro Time. Specimen Blood specimen (specimen) - Blood Performing Organization Address City/[facility]/ZIP Code Phon e Number [facility] LABORATORY [address] [place] [address] SERVICES PTT (12/20/2017 14:00 EDT) Pathologist Sig nature PTT 36 26 - 37 secs [facility] LABORATOR Y SERVICES Specimen Blood specimen (specimen) - Blood Performing Organization Address City/[facility]/ZIP Code Phon e Number [facility] LABORATORY [address] [place] [address] SERVICES (ABNORMAL) BLOOD GAS, CG8 ISTAT (12/20/2017 13:39 EDT) pH, i-STAT 7.30 (L) 7.35 - 7.45 [facility] LABORATORY SERVICES pCO2, i-STAT 49 (H) 35 - 45 mmHg [facility] LABORATORY SERVICES pO2, i-STAT 123 (H) 80 - 105 mmHg [facility] LABORATORY SERVICES TCO2, i-STAT 26 23 - 27 mEq/L [facility] LABORATORY SERVICES O2 Saturation 98 95 - 98 % [facility] LABORATORY SERVICES Sodium, i-STAT 132 (L) 136 - 145 [facility] mEq/L LABORATORY SERVICES Potassium, i-STAT 5.0 3.5 - 5.0 [facility] mEq/L LABORATORY SERVICES Glucose, I-STAT 157 (H) 70 - 100 [facility] mg/dl LABORATORY SERVICES Hematocrit,iSTAT 23 (L) 34.9 - 44.4 % [facility] LABORATORY SERVICES Calcium, Ionized 1.33 (H) 1.12 - 1.32 [facility] mmol/L LABORATORY SERVICES Base Deficit, 2 [facility] i-STAT LABORATORY SERVICES Sample Type NOT GIVEN [facility] LABORATORY csr retail ID [phone] [facility] Comment: LABORATORY Test performed by Perfusion SERVICES For non-arterial reference ranges, please see ISTAT procedure. Specimen Blood Performing Organization Address City/[facility]/ZIP Code Phon e Number [facility] LABORATORY [address] [place] [address] SERVICES ACT, CELITE ISTAT (12/20/2017 13:38 EDT) Activated Clotting 152 [facility] Time LABORATORY csr retail ID [phone] [facility] Comment: LABORATORY SERVICES Test performed by Perfusion Baseline ref range is less than or equal to 160 second s For non baseline ref ranges see procedure. Specimen Blood Performing Organization Address City/State/ZIP Code Phon e Number [facility] LABORATORY [address] [place] [address] SERVICES (ABNORMAL) BLOOD GAS, EG6 ISTAT (12/20/2017 13:06 EDT) pH, i-STAT 7.34 (L) 7.35 - 7.45 [facility] LABORATORY SERVICES pCO2, i-STAT 44 35 - 45 mmHg [facility] LABORATORY SERVICES pO2, i-STAT 44 (L) 80 - 105 mmHg [facility] LABORATORY SERVICES TCO2, i-STAT 25 23 - 27 mEq/L [facility] LABORATORY SERVICES O2 Saturation 76 (L) 95 - 98 % [facility] LABORATORY SERVICES Sodium, i-STAT 129 (L) 136 - 145 [facility] mEq/L LABORATORY SERVICES Potassium, i-STAT 5.7 (H) 3.5 - 5.0 [facility] mEq/L LABORATORY SERVICES Hematocrit,iSTAT 31 (L) 34.9 - 44.4 % [facility] LABORATORY SERVICES Base Deficit, 2 [facility] i-STAT LABORATORY SERVICES Sample Type NOT GIVEN [facility] LABORATORY csr retail ID [phone] [facility] Comment: LABORATORY Test performed by Perfusion SERVICES For non-arterial reference ranges, please see ISTAT procedure. Specimen Blood Performing Organization Address City/[facility]/ZIP Code Phon e Number [facility] LABORATORY [address] [place] [address] SERVICES ACT, CELITE ISTAT (12/20/2017 13:05 EDT) Activated Clotting 546 [facility] Time LABORATORY csr retail ID [phone] [facility] Comment: LABORATORY SERVICES Test performed by Perfusion Baseline ref range is less than or equal to 160 second s For non baseline ref ranges see procedure. Specimen Blood Performing Organization Address City/State/ZIP Code Phon e Number [facility] LABORATORY [address] [place] [address] SERVICES (ABNORMAL) BLOOD GAS, CG8 ISTAT (12/20/2017 12:58 EDT) pH, i-STAT 7.39 7.35 - 7.45 [facility] LABORATORY SERVICES pCO2, i-STAT 41 35 - 45 mmHg [facility] LABORATORY SERVICES pO2, i-STAT 450 (H) 80 - 105 mmHg [facility] LABORATORY SERVICES TCO2, i-STAT 26 23 - 27 mEq/L [facility] LABORATORY SERVICES O2 Saturation 100 (H) 95 - 98 % [facility] LABORATORY SERVICES Sodium, i-STAT 129 (L) 136 - 145 [facility] mEq/L LABORATORY SERVICES Potassium, i-STAT 5.7 (H) 3.5 - 5.0 [facility] mEq/L LABORATORY SERVICES Glucose, I-STAT 188 (H) 70 - 100 [facility] mg/dl LABORATORY SERVICES Hematocrit,iSTAT 22 (L) 34.9 - 44.4 % [facility] LABORATORY SERVICES Calcium, Ionized 1.01 (L) 1.12 - 1.32 [facility] mmol/L LABORATORY SERVICES Base Excess, 0 [facility] i-STAT LABORATORY SERVICES Sample Type NOT GIVEN [facility] LABORATORY csr retail ID [phone] [facility] Comment: LABORATORY Test performed by Perfusion SERVICES For non-arterial reference ranges, please see ISTAT procedure. Specimen Blood Performing Organization Address City/State/[facility] Code Phon e Number [facility] LABORATORY [address] [place] [address] SERVICES (ABNORMAL) BLOOD GAS, CG8 ISTAT (12/20/2017 12:39 EDT) pH, i-STAT 7.40 7.35 - 7.45 [facility] LABORATORY SERVICES pCO2, i-STAT 37 35 - 45 mmHg [facility] LABORATORY SERVICES pO2, i-STAT 221 (H) 80 - 105 mmHg [facility] LABORATORY SERVICES TCO2, i-STAT 24 23 - 27 mEq/L [facility] LABORATORY SERVICES O2 Saturation 100 (H) 95 - 98 % [facility] LABORATORY SERVICES Sodium, i-STAT 131 (L) 136 - 145 [facility] mEq/L LABORATORY SERVICES Potassium, i-STAT 5.2 (H) 3.5 - 5.0 [facility] mEq/L LABORATORY SERVICES Glucose, I-STAT 194 (H) 70 - 100 [facility] mg/dl LABORATORY SERVICES Hematocrit,iSTAT 30 (L) 34.9 - 44.4 % [facility] LABORATORY SERVICES Calcium, Ionized 1.03 (L) 1.12 - 1.32 [facility] mmol/L LABORATORY SERVICES Base Deficit, 2 [facility] i-STAT LABORATORY SERVICES Sample Type NOT GIVEN [facility] LABORATORY csr retail ID [phone] [facility] Comment: LABORATORY Test performed by Perfusion SERVICES For non-arterial reference ranges, please see ISTAT procedure. Specimen Blood Performing Organization Address City/[facility]/ZIP Code Phon e Number [facility] LABORATORY [address] [place] [address] SERVICES ACT, CELITE ISTAT (12/20/2017 12:39 EDT) Activated Clotting 489 [facility] Time LABORATORY csr retail ID [phone] [facility] Comment: LABORATORY SERVICES Test performed by Perfusion Baseline ref range is less than or equal to 160 second s For non baseline ref ranges see procedure. Specimen Blood Performing Organization Address [facility]/ZIP [facility] Phon e Number [facility] LABORATORY [address] [place] [address] SERVICES (ABNORMAL) BLOOD GAS, CG8 ISTAT (12/20/2017 12:07 EDT) pH, i-STAT 7.43 7.35 - 7.45 [facility] LABORATORY SERVICES pCO2, i-STAT 35 35 - 45 mmHg [facility] LABORATORY SERVICES pO2, i-STAT 245 (H) 80 - 105 mmHg [facility] LABORATORY SERVICES TCO2, i-STAT 25 23 - 27 mEq/L [facility] LABORATORY SERVICES O2 Saturation 100 (H) 95 - 98 % [facility] LABORATORY SERVICES Sodium, i-STAT 131 (L) 136 - 145 [facility] mEq/L LABORATORY SERVICES Potassium, i-STAT 4.5 3.5 - 5.0 [facility] mEq/L LABORATORY SERVICES Glucose, I-STAT 188 (H) 70 - 100 [facility] mg/dl LABORATORY SERVICES Hematocrit,iSTAT 23 (L) 34.9 - 44.4 % [facility] LABORATORY SERVICES Calcium, Ionized 1.04 (L) 1.12 - 1.32 [facility] mmol/L LABORATORY SERVICES Base Deficit, 1 [facility] i-STAT LABORATORY SERVICES Sample Type NOT GIVEN [facility] LABORATORY csr retail ID [phone] [facility] Comment: LABORATORY Test performed by Perfusion SERVICES For non-arterial reference ranges, please see ISTAT procedure. Specimen Blood Performing Organization Address City/[facility]/ZIP Code Phon e Number [facility] LABORATORY [address] [place] [address] SERVICES ACT, CELITE ISTAT (12/20/2017 12:07 EDT) Activated Clotting 570 [facility] Time LABORATORY csr retail ID [phone] [facility] Comment: LABORATORY SERVICES Test performed by Perfusion Baseline ref range is less than or equal to 160 second s For non baseline ref ranges see procedure. Specimen Blood Performing Organization Address City/State/ZIP Code Phon e Number [facility] LABORATORY [address] [place] [address] SERVICES (ABNORMAL) BLOOD GAS, EG6 ISTAT (12/20/2017 11:43 EDT) pH, i-STAT 7.41 7.35 - 7.45 [facility] LABORATORY SERVICES pCO2, i-STAT 40 35 - 45 mmHg [facility] LABORATORY SERVICES pO2, i-STAT 291 (H) 80 - 105 mmHg [facility] LABORATORY SERVICES TCO2, i-STAT 27 23 - 27 mEq/L [facility] LABORATORY SERVICES O2 Saturation 100 (H) 95 - 98 % [facility] LABORATORY SERVICES Sodium, i-STAT 131 (L) 136 - 145 [facility] mEq/L LABORATORY SERVICES Potassium, i-STAT 4.3 3.5 - 5.0 [facility] mEq/L LABORATORY SERVICES Hematocrit,iSTAT 22 (L) 34.9 - 44.4 % [facility] LABORATORY SERVICES Base Excess, 1 [facility] i-STAT LABORATORY SERVICES Sample Type NOT GIVEN [facility] LABORATORY csr retail ID [phone] [facility] Comment: LABORATORY Test performed by Perfusion SERVICES For non-arterial reference ranges, please see ISTAT procedure. Specimen Blood Performing Organization Address City/State/ZIP Code Phon e Number [facility] LABORATORY [address] [place] [address] SERVICES ACT, CELITE ISTAT (12/20/2017 11:42 EDT) Activated Clotting 652 [facility] Time LABORATORY csr retail ID [phone] [facility] Comment: LABORATORY SERVICES Test performed by Perfusion Baseline ref range is less than or equal to 160 second s For non baseline ref ranges see procedure. Specimen Blood Performing Organization Address City/State/ZIP Code Phon e Number [facility] LABORATORY [address] [place] [address] SERVICES (ABNORMAL) BLOOD GAS, CG8 ISTAT (12/20/2017 11:20 EDT) pH, i-STAT 7.37 7.35 - 7.45 [facility] LABORATORY SERVICES pCO2, i-STAT 42 35 - 45 mmHg [facility] LABORATORY SERVICES pO2, i-STAT 300 (H) 80 - 105 mmHg [facility] LABORATORY SERVICES TCO2, i-STAT 25 23 - 27 mEq/L [facility] LABORATORY SERVICES O2 Saturation 100 (H) 95 - 98 % [facility] LABORATORY SERVICES Sodium, i-STAT 130 (L) 136 - 145 [facility] mEq/L LABORATORY SERVICES Potassium, i-STAT 4.2 3.5 - 5.0 [facility] mEq/L LABORATORY SERVICES Glucose, I-STAT 153 (H) 70 - 100 [facility] mg/dl LABORATORY SERVICES Hematocrit,iSTAT 21 (L) 34.9 - 44.4 % [facility] LABORATORY SERVICES Calcium, Ionized 0.99 (L) 1.12 - 1.32 [facility] mmol/L LABORATORY SERVICES Base Deficit, 2 [facility] i-STAT LABORATORY SERVICES Sample Type NOT GIVEN [facility] LABORATORY csr retail ID [phone] [facility] Comment: LABORATORY Test performed by Perfusion SERVICES For non-arterial reference ranges, please see ISTAT procedure. Specimen Blood Performing Organization Address City/State/ZIP Code Phon e Number [facility] LABORATORY [address] [place] [address] SERVICES GRAM SMEAR (12/20/2017 11:20 EDT) Gram Smear Result Duplicate Test [facility] Request LABORATORY SERVICES Gram Smear Result Credit Issued [facility] LABORATORY SERVICES Specimen Other (qualifier value) - Other Performing Organization Address City/State/ZIP Code Phon e Number [facility] LABORATORY [address] [place] [address] SERVICES FUNGUS CULTURE/SMEAR, OTHER (12/20/2017 11:20 EDT) Pathologist Sig nature Fungal Smear No fungi seen [facility] LABORATORY SERVICES Result No fungi isolated [facility] LABORATORY SERVICES Specimen Other (qualifier value) - Tissue Performing Organization Address City/[facility]/ZIP Code Phon e Number [facility] LABORATORY [address] [place] [address] SERVICES ACT, CELITE ISTAT (12/20/2017 11:19 EDT) Activated Clotting 680 [facility] Time LABORATORY csr retail ID [phone] [facility] Comment: LABORATORY SERVICES Test performed by Perfusion Baseline ref range is less than or equal to 160 second s For non baseline ref ranges see procedure. Specimen Blood Performing Organization Address City/[facility]/ZIP Code Phon e Number [facility] LABORATORY [address] [place] [address] SERVICES ANAEROBE CULTURE/SMEAR(INC. AEROBES), TISSUE (12/20/2017 11:10 EDT) Gram Smear Result No polys seen [facility] LABORATORY SERVICES Gram Smear Result No bacteria seen [facility] LABORATORY SERVICES Result No growth [facility] LABORATORY SERVICES Specimen Other (qualifier value) - Tissue Performing Organization Address City/[facility]/ZIP Code Phon e Number [facility] LABORATORY [address] [place] [address] SERVICES FUNGUS CULTURE/SMEAR, OTHER (12/20/2017 11:05 EDT) Pathologist Sig nature Fungal Smear No fungi seen [facility] LABORATORY SERVICES Result No fungi isolated [facility] LABORATORY SERVICES Specimen Other (qualifier value) - Tissue Performing Organization Address City/[facility]/ZIP Code Phon e Number [facility] LABORATORY [address] [place] [address] SERVICES GRAM SMEAR (12/20/2017 11:05 EDT) Gram Smear Result Duplicate Test [facility] Request LABORATORY SERVICES Gram Smear Result Credit Issued [facility] LABORATORY SERVICES Specimen Other (qualifier value) - Other Performing Organization Address City/[facility]/ZIP Code Phon e Number [facility] LABORATORY [address] [place] [address] SERVICES ACT, CELITE ISTAT (12/20/2017 11:03 EDT) Activated Clotting 680 [facility] Time LABORATORY csr retail ID [phone] [facility] Comment: LABORATORY SERVICES Test performed by Perfusion Baseline ref range is less than or equal to 160 second s For non baseline ref ranges see procedure. Specimen Blood Performing Organization Address City/[facility]/ZIP Code Phon e Number [facility] LABORATORY [address] [place] [address] SERVICES (ABNORMAL) BLOOD GAS, EG6 ISTAT (12/20/2017 11:01 EDT) pH, i-STAT 7.34 (L) 7.35 - 7.45 [facility] LABORATORY SERVICES pCO2, i-STAT 46 (H) 35 - 45 mmHg [facility] LABORATORY SERVICES pO2, i-STAT 306 (H) 80 - 105 mmHg [facility] LABORATORY SERVICES TCO2, i-STAT 26 23 - 27 mEq/L [facility] LABORATORY SERVICES O2 Saturation 100 (H) 95 - 98 % [facility] LABORATORY SERVICES Sodium, i-STAT 128 (L) 136 - 145 [facility] mEq/L LABORATORY SERVICES Potassium, i-STAT 4.0 3.5 - 5.0 [facility] mEq/L LABORATORY SERVICES Hematocrit,iSTAT 20 (LL) 34.9 - 44.4 % [facility] LABORATORY SERVICES Base Deficit, 1 [facility] i-STAT LABORATORY SERVICES Sample Type NOT GIVEN [facility] LABORATORY csr retail ID [phone] [facility] Comment: LABORATORY Test performed by Perfusion SERVICES For non-arterial reference ranges, please see ISTAT procedure. Specimen Blood Performing Organization Address City/State/[facility] Code Phon e Number [facility] LABORATORY [address] [place] [address] SERVICES SERGEI, AEROBIC BACTERIA (12/20/2017 11:00 EDT) Pathologist [facility] Source & Organism OtherComment: Left [facility] atrial bed LABORATORY SERVICES SERGEI,Aerobic See Comments [facility] Bacteria Comment: LABORATORY (Note) SERVICES SOURCE: HEART, Other Left atrial bed SUSCEPTIBILITY, AEROBIC, SERGEI ? FINAL ENTEROCOCCUS FAECALIS ?? Organism identified by client. ----- Organism ? ENTEROCOCCUS FAECALIS Antibiotic ??SERGEI (mcg/mL) ??Interpretation ----- Gent Synergy ? <=500 ? S ------ S=SUSCEPTIBLE ??I=INTERMEDIATE ??R=RESISTANT N=NONSUSCEPTIBLE ??D=SUSCEPTIBLE DOSE DEPENDENT ------ Performed or Referred by: [facility], [address] [place] [address], Lab Dir: Saeid fleming II, M.D., Ph.D. Specimen Other Performing Organization Address City/[facility] Phon e Number [facility] LABORATORY [address] [place] [address] SERVICES ANAEROBE CULTURE/SMEAR(INC. AEROBES), TISSUE (12/20/2017 11:00 EDT) Gram Smear Result Few [facility] Polys LABORATORY SERVICES Gram Smear Result No bacteria seen [facility] LABORATORY SERVICES Result One colony only [facility] ENTEROCOCCUS FAECALIS LABORATORY SERVICES Result Sent to [facility] for LABORATORY Testing. SERVICES Specimen Other (qualifier value) - Tissue Organism Antibiotic Method Susceptibility One colony only Ampicillin SUSCEPTIBILITY (SERGEI) Susceptible enterococcus faecalis One colony only Vancomycin SUSCEPTIBILITY (SERGEI) Susceptible enterococcus faecalis One colony only Susceptibility comment SUSCEPTIBILITY (SERGEI) enterococcus faecalis One colony only Susceptibility comment SUSCEPTIBILITY (SERGEI) For ampicillin enterococcus susceptible faecalis enterococci, the preferred treatm ent is ampicillin (with an aminoglycoside f or serious infectio ns). Performing Organization Address City/[facility] Code Phon e Number [facility] LABORATORY [address] [place] [address] SERVICES (ABNORMAL) BLOOD GAS, EG6 ISTAT (12/20/2017 10:52 EDT) pH, i-STAT 7.28 (L) 7.35 - 7.45 [facility] LABORATORY SERVICES pCO2, i-STAT 54 (H) 35 - 45 mmHg [facility] LABORATORY SERVICES pO2, i-STAT 40 (L) 80 - 105 mmHg [facility] LABORATORY SERVICES TCO2, i-STAT 27 23 - 27 mEq/L [facility] LABORATORY SERVICES O2 Saturation 67 (L) 95 - 98 % [facility] LABORATORY SERVICES Sodium, i-STAT 127 (L) 136 - 145 [facility] mEq/L LABORATORY SERVICES Potassium, i-STAT 3.9 3.5 - 5.0 [facility] mEq/L LABORATORY SERVICES Hematocrit,iSTAT 19 (LL) 34.9 - 44.4 % [facility] LABORATORY SERVICES Base Deficit, 1 [facility] i-STAT LABORATORY SERVICES Sample Type NOT GIVEN [facility] LABORATORY csr retail ID [phone] [facility] Comment: LABORATORY Test performed by Perfusion SERVICES For non-arterial reference ranges, please see ISTAT procedure. Specimen Blood Performing Organization Address City/State/ZIP Code Phon e Number [facility] LABORATORY [address] [place] [address] SERVICES (ABNORMAL) BLOOD GAS, CG8 ISTAT (12/20/2017 10:49 EDT) pH, i-STAT 7.32 (L) 7.35 - 7.45 [facility] LABORATORY SERVICES pCO2, i-STAT 45 35 - 45 mmHg [facility] LABORATORY SERVICES pO2, i-STAT 355 (H) 80 - 105 mmHg [facility] LABORATORY SERVICES TCO2, i-STAT 24 23 - 27 mEq/L [facility] LABORATORY SERVICES O2 Saturation 100 (H) 95 - 98 % [facility] LABORATORY SERVICES Sodium, i-STAT 125 (L) 136 - 145 [facility] mEq/L LABORATORY SERVICES Potassium, i-STAT 4.0 3.5 - 5.0 [facility] mEq/L LABORATORY SERVICES Glucose, I-STAT 118 (H) 70 - 100 [facility] mg/dl LABORATORY SERVICES Hematocrit,iSTAT 19 (LL) 34.9 - 44.4 % [facility] LABORATORY SERVICES Calcium, Ionized 1.01 (L) 1.12 - 1.32 [facility] mmol/L LABORATORY SERVICES Base Deficit, 3 [facility] i-STAT LABORATORY SERVICES Sample Type NOT GIVEN [facility] LABORATORY csr retail ID [phone] [facility] Comment: LABORATORY Test performed by Perfusion SERVICES For non-arterial reference ranges, please see ISTAT procedure. Specimen Blood Performing Organization Address City/[facility]/ZIP Code Phon e Number [facility] LABORATORY [address] [place] [address] SERVICES ACT, CELITE ISTAT (12/20/2017 10:48 EDT) Activated Clotting 765 [facility] Time LABORATORY csr retail ID [phone] [facility] Comment: LABORATORY SERVICES Test performed by Perfusion Baseline ref range is less than or equal to 160 second s For non baseline ref ranges see procedure. Specimen Blood Performing Organization Address City/[facility]/ZIP Code Phon e Number [facility] LABORATORY [address] [place] [address] SERVICES (ABNORMAL) BLOOD GAS, CG8 ISTAT (12/20/2017 10:00 EDT) pH, i-STAT 7.32 (L) 7.35 - 7.45 [facility] LABORATORY SERVICES pCO2, i-STAT 46 (H) 35 - 45 mmHg [facility] LABORATORY SERVICES pO2, i-STAT 94 80 - 105 mmHg [facility] LABORATORY SERVICES TCO2, i-STAT 25 23 - 27 mEq/L [facility] LABORATORY SERVICES O2 Saturation 97 95 - 98 % [facility] LABORATORY SERVICES Sodium, i-STAT 142 136 - 145 [facility] mEq/L LABORATORY SERVICES Potassium, i-STAT 3.5 3.5 - 5.0 [facility] mEq/L LABORATORY SERVICES Glucose, I-STAT 99 70 - 100 [facility] mg/dl LABORATORY SERVICES Hematocrit,iSTAT 24 (L) 34.9 - 44.4 % [facility] LABORATORY SERVICES Calcium, Ionized 1.14 1.12 - 1.32 [facility] mmol/L LABORATORY SERVICES Base Deficit, 2 [facility] i-STAT LABORATORY SERVICES Sample Type NOT GIVEN [facility] LABORATORY csr retail ID [phone] [facility] Comment: LABORATORY Test performed by Perfusion SERVICES For non-arterial reference ranges, please see ISTAT procedure. Specimen Blood Performing Organization Address City/State/ZIP Code Phon e Number [facility] LABORATORY [address] [place] [address] SERVICES ACT, CELITE ISTAT (12/20/2017 10:00 EDT) Activated Clotting >1000 [facility] Time LABORATORY csr retail ID [phone] [facility] Comment: LABORATORY SERVICES Test performed by Perfusion Baseline ref range is less than or equal to 160 second s For non baseline ref ranges see procedure. Specimen Blood Performing Organization Address City/[facility]/ZIP Code Phon e Number [facility] LABORATORY [address] [place] [address] SERVICES (ABNORMAL) BLOOD GAS, CG8 ISTAT (12/20/2017 9:24 EDT) pH, i-STAT 7.37 7.35 - 7.45 [facility] LABORATORY SERVICES pCO2, i-STAT 48 (H) 35 - 45 mmHg [facility] LABORATORY SERVICES pO2, i-STAT 146 (H) 80 - 105 mmHg [facility] LABORATORY SERVICES TCO2, i-STAT 29 (H) 23 - 27 mEq/L [facility] LABORATORY SERVICES O2 Saturation 99 (H) 95 - 98 % [facility] LABORATORY SERVICES Sodium, i-STAT 139 136 - 145 [facility] mEq/L LABORATORY SERVICES Potassium, i-STAT 3.9 3.5 - 5.0 [facility] mEq/L LABORATORY SERVICES Glucose, I-STAT 90 70 - 100 [facility] mg/dl LABORATORY SERVICES Hematocrit,iSTAT 26 (L) 34.9 - 44.4 % [facility] LABORATORY SERVICES Calcium, Ionized 1.19 1.12 - 1.32 [facility] mmol/L LABORATORY SERVICES Base Excess, 2 [facility] i-STAT LABORATORY SERVICES Sample Type NOT GIVEN [facility] LABORATORY csr retail ID [phone] [facility] Comment: LABORATORY Test performed by Perfusion SERVICES For non-arterial reference ranges, please see ISTAT procedure. Specimen Blood Performing Organization Address City/[facility]/ZIP Code Phon e Number [facility] LABORATORY [address] [place] [address] SERVICES ACT, CELITE ISTAT (12/20/2017 9:24 EDT) Activated Clotting 156 [facility] Time LABORATORY csr retail ID [id number] [facility] Comment: LABORATORY SERVICES Test performed by Perfusion Baseline ref range is less than or equal to 160 second s For non baseline ref ranges see procedure. Specimen Blood Performing Organization Address City/[facility]/ZIP Code Phon e Number [facility] LABORATORY [address] [place] [address] SERVICES TEST, URINE (12/20/2017 8:05 EDT) Result- Neg Neg [facility] Test, Ur Comment: LABORATORY NOTE: SERVICES False negative results may occur in women who are beyond 5-8 weeks gestation. Diagnosis of should be based on a correlation of test results with typical clinical signs and symptoms. Specimen Urine (substance) - Urine Performing Organization Address City/State/ZIP Code Phon e Number [facility] LABORATORY [address] [place] [address] SERVICES ANESTH TRANSESOPHAGEAL ECHO (12/20/2017 7:40 EDT) Specimen Narrative [facility] CARDIOLOGY MAIN CAMPU S - 12/20/2017 7:40 EDT Non Reportable Exam Procedure Note PEN RULER OPERATOR, IMAGING - 12/20/2017 Non Reportable Exam Performing Organization Address City/State/ZIP Code Phon e Number [facility] CARDIOLOGY MAIN CAMPUS MAGNESIUM (12/20/2017 4:58 EDT) Pathologist Sig nature Magnesium 2.0 1.7 - 2.8 mg/dl [facility] LABORA TORY SERVICES Specimen Blood specimen (specimen) - Blood Performing Organization Address City/State/ZIP Code Phon e Number [facility] LABORATORY [address] [place] [address] SERVICES (ABNORMAL) HEMAGRAM (12/20/2017 4:58 EDT) Pathologist Sig nature WBC 6.01 4.0 - 12.4 K/cmm [facility] LABORATORY SERVICES RBC 3.29 (L) 3.86 - 5.04 M/cmm [facility] LABORATORY SERVICES Hemoglobin 8.3 (L) 11.6 - 15.2 gm/dl [facility] LABORATORY SERVICES HCT 26.4 (L) 34.9 - 44.4 % [facility] LABORATORY SERVICES MCV 80 (L) 81 - 98 fl [facility] LABORATORY SERVICES MCH 25.2 (L) 26.7 - 33.3 pg [facility] LABORATORY SERVICES Hypochromia 1+ [facility] LABORATORY SERVICES MCHC 31.4 (L) 32.1 - 35.9 gm/dl [facility] LABORATORY SERVICES RDW-CV 23.7 (H) <14.7 % [facility] LABORATORY SERVICES RDW-SD 69.0 (H) <50.4 fl [facility] LABORATORY SERVICES Anisocytosis 2+ [facility] LABORATORY SERVICES PLT 342 141 - 377 K/cmm [facility] LABORATORY SERVICES MPV 8.8 (L) 9.5 - 12.7 fl [facility] LABORATORY SERVICES Specimen Blood specimen (specimen) - Blood Performing Organization Address [facility]/ZIP Code Phon e Number [facility] LABORATORY [address] [place] [address] SERVICES ELECTROLYTES (12/20/2017 4:58 EDT) Pathologist Sig nature Sodium 136 136 - 145 mEq/L [facility] LABORA TORY SERVICES Potassium 4.7 3.5 - 5.0 mEq/L [facility] LABORA TORY SERVICES Chloride 102 96 - 110 mEq/L [facility] LABORAT ORY SERVICES CO2 28 22 - 32 mEq/L [facility] LABORATO RY SERVICES Specimen Blood specimen (specimen) - Blood Performing Organization Address [facility] Phon e Number [facility] LABORATORY [address] [place] [address] SERVICES CREATININE (12/20/2017 4:58 EDT) Creatinine 0.90 0.52 - 1.04 [facility] mg/dl LABORATORY SERVICES GFR, Calculated 87 >60 [facility] Comment: ml/min/1.73m2 LABORATORY eGFR calculated using CKD-EPI equation for SERVICES non Americans. Multiply eGFR by 1.16 for Americans. Specimen Blood specimen (specimen) - Blood Performing Organization Address [facility]/ZIP [facility] Phon e Number [facility] LABORATORY [address] [place] [address] SERVICES (ABNORMAL) BUN (12/20/2017 4:58 EDT) Pathologist Sig nature BUN 9 (L) 10 - 26 mg/dl [facility] LABORATO RY SERVICES Specimen Blood specimen (specimen) - Blood Performing Organization Address [facility]/ZIP [facility] Phon e Number [facility] LABORATORY [address] [place] [address] CHEST (PE) PROTOCOL W CONTRAST (12/19/2017 13:01 EDT) Anatomical Region Laterality Modality Other Specimen Narrative [facility] RADIOLOGY MAIN CAMPUS - 12/19/2017 15:58 EDT CTA CHEST W CONTRAST (PE) PROTOCOL ??12/19/2017 1:01 PM Clinical History/Comments: Re-eval of pulm parenchyma for septic em boli in pt with endocarditis Technique: A contrast-enhanced helical CT acquisiti on of the chest from apices through the lung bases was performed wit h a reconstructed slice thickness of 0.9 mm with overlapping 0.4 5 mm intervals following the intravenous administration of 75-100 cc of 350-370 mg% nonionic contrast injected at a rate of 4-5 cc/se cond. ??A small test bolus was used for image acquisition. Scans we re reviewed on a dedicated PACS workstation for analysis. The radio logist reviewed and adjusted the images for the 3D rendering on an in dependent workstation, as necessary, prior to interpretation. Exam description: CTA of the chest Comparison: Chest radiograph 2 days prior. Findings: There is a right PICC with tip approxima ting the superior cavoatrial junction. The chest wall there is normal. No enlarged mediastinal or hilar lymph n odes are present. The heart and pericardium are normal. There is good opacification the pulmonar y arteries. No pulmonary emboli are present. The large airways are normal. 1-2 mm tri angular/flattened nodules in the lungs, such as within the right midd le lobe (#298), reflect intraparenchymal lymph nodes. There are linear regions of atelectasis within the lingula and left lower lobe. No pleural abnormalities are present. The visualized portions of the upper abd omen demonstrates 2 poorly defined low-attenuation lesions within t he spleen, the more posteriorly collection measuring 4.3 x 5 .7 x 7 7 mm and the more anteriorly positioned collection measuri ng 7.2 x 5 x 7.2 cm. Although portions of the lesions are con vincingly of cystic attenuation, other areas are simply of l ow attenuation such as within the lateral aspect of the spleen (#165) within a wedge-shaped appearance. The bones are within normal limits for a ge. IMPRESSION: 1. No pulmonary emboli. 2. 2 large partially cystic and low-atte nuation lesions within the spleen concerning for splenic infarcts a nd subsequent abscesses in this patient with history of endocarditi s. Findings discussed with Dr. Garcia by Rhona Ardon at 12/19/2017 3:55 PM Procedure Note Rick Ardon MD - 12/19/2017 CTA CHEST W CONTRAST (PE) PROTOCOL 2017 1:01 PM Clinical History/Comments: Re-eval of pulm parenchyma for septic em boli in pt with endocarditis Technique: A contrast-enhanced helical CT acquisiti on of the chest from apices through the lung bases was performed wit h a reconstructed slice thickness of 0.9 mm with overlapping 0.4 5 mm intervals following the intravenous administration of 75-100 cc of 350-370 mg% nonionic contrast injected at a rate of 4-5 cc/se cond. A small test bolus was used for image acquisition. Scans we re reviewed on a dedicated PACS workstation for analysis. The radio logist reviewed and adjusted the images for the 3D rendering on an in dependent workstation, as necessary, prior to interpretation. Exam description: CTA of the chest Comparison: Chest radiograph 2 days prior. Findings: There is a right PICC with tip approxima ting the superior cavoatrial junction. The chest wall there is normal. No enlarged mediastinal or hilar lymph n odes are present. The heart and pericardium are normal. There is good opacification the pulmonar y arteries. No pulmonary emboli are present. The large airways are normal. 1-2 mm tri angular/flattened nodules in the lungs, such as within the right midd le lobe (#298), reflect intraparenchymal lymph nodes. There are linear regions of atelectasis within the lingula and left lower lobe. No pleural abnormalities are present. The visualized portions of the upper abd omen demonstrates 2 poorly defined low-attenuation lesions within t he spleen, the more posteriorly collection measuring 4.3 x 5 .7 x 7 7 mm and the more anteriorly positioned collection measuri ng 7.2 x 5 x 7.2 cm. Although portions of the lesions are con vincingly of cystic attenuation, other areas are simply of l ow attenuation such as within the lateral aspect of the spleen (#165) within a wedge-shaped appearance. The bones are within normal limits for a ge. IMPRESSION: 1. No pulmonary emboli. 2. 2 large partially cystic and low-atte nuation lesions within the spleen concerning for splenic infarcts a nd subsequent abscesses in this patient with history of endocarditi s. Findings discussed with Dr. Garcia by Rhona Ardon at 12/19/2017 3:55 PM Performing Organization Address City/State/ZIP Code Phon e Number [facility] RADIOLOGY [facility] CT FACIAL BONES W CONTRAST (12/19/2017 13:01 EDT) Anatomical Region Laterality Modality Other Specimen Narrative [facility] RADIOLOGY [facility] - 12/19/2017 16:[address] ??facial bones with contrast History: Endocarditis, suspicion of dent al abscess COMPARISON: None Technique: Axial contrast enhanced image s were obtained through the facial bones with multiplanar reformatio ns. ?? Findings: There is no acute fracture of the facial bones. No bony lesion is identified. There are no remaining maxillary teeth. There are only a few mandibular teeth remaining, teeth #21-27 . Caries are noted within teeth #21 and #27. No bony erosion or pe riosteal reaction is identified. The temporomandibular joints have normal alignment. There is only minimal mucosal thickening within the ethmoid air cells. No fluid levels are present. The mastoid air cells and middle ear cavities are clear. The visualized portions of the brain par enchyma are normal. The orbits are grossly normal. No abnormal enhancement is present. Conclusion: No findings are present to suggest denta l abscess. Only teeth #21-27 remain. There are jose es within teeth #21 and 27. I have personally reviewed the images an d the above interpretation and agree with the findings. Procedure Note Umair Reynoso MD - 12/19/2017 CT facial bones with contrast History: Endocarditis, suspicion of dent al abscess COMPARISON: None Technique: Axial contrast enhanced image s were obtained through the facial bones with multiplanar reformatio ns. Findings: There is no acute fracture of the facial bones. No bony lesion is identified. There are no remaining maxillary teeth. There are only a few mandibular teeth remaining, teeth #21-27 . Caries are noted within teeth #21 and #27. No bony erosion or pe riosteal reaction is identified. The temporomandibular joints have normal alignment. There is only minimal mucosal thickening within the ethmoid air cells. No fluid levels are present. The mastoid air cells and middle ear cavities are clear. The visualized portions of the brain par enchyma are normal. The orbits are grossly normal. No abnormal enhancement is present. Conclusion: No findings are present to suggest denta l abscess. Only teeth #21-27 remain. There are jose es within teeth #21 and 27. I have personally reviewed the images an d the above interpretation and agree with the findings. Performing Organization Address City/[facility]/ZIP Code Phon e Number [facility] RADIOLOGY MAIN CAMPUS (ABNORMAL) UA CHEMICAL (DIPSTICK ONLY) (12/19/2017 11:55 EDT) Color, UA Yellow [facility] LABORATORY SERVICES Clarity, UA Clear [facility] LABORATORY SERVICES Glucose, UA Neg Neg [facility] LABORATORY SERVICES Bilirubin, UA Neg Neg [facility] LABORATORY SERVICES Ketones, UA Neg Neg [facility] LABORATORY SERVICES Refractometer 1.035 1.001 - 1.035 [facility] SG,Urine [facility]ORAT[facility] SERVICES Blood, UA 2+ (A) [facility] LABORATORY SERVICES pH, UA 8.0 4.6 - 8.0 [facility] LABORATORY SERVICES Protein, UA 1+ (A) Neg [facility] LABORATORY SERVICES Urobilinogen, UA Normal Normal [facility] E.U./dl [facility] SERVICES Nitrite, UA Neg Neg [facility] LABORATORY SERVICES Leuk Esterase Neg [facility] LABORATORY SERVICES UA Method Used [facility] Comment: CENTER LABORATORY Testing performed using SERVICES [employer] [id number]. Specimen Urine Performing Organization Address [facility]/ZIP [facility] e Number [facility] LABORATORY [address] [place] [address] SERVICES URINE CULTURE IF UA POSITIVE - NON POCT URINALYSIS ONLY (12/19/2017 11:55 EDT) Pathologist [facility] Culture if Culture not [facility] Indicated indicated by LABORATORY SERVICES urinalysis results. Specimen Urine (substance) - Other Performing Organization Address [facility]/ZIP [facility] Phon e Number [facility] LABORATORY [address] [place] [address] SERVICES (ABNORMAL) GENTAMICIN PEAK (12/19/2017 9:25 EDT) Gentamicin Peak 3.0 (L) 5.0 - 12.0 [facility] ug/ml LABORATORY SERVICES Type of Draw CATHETER, ANY [facility] LABORATORY SERVICES Specimen Blood specimen (specimen) - Blood Performing Organization Address [facility]/ZIP [facility] Phon e Number [facility] LABORATORY [address] [place] [address] SERVICES GENTAMICIN TROUGH (12/19/2017 7:44 EDT) Pathologist Sig nature Gentamicin Trough 0.6 <1.5 ug/ml [facility] LABORATORY SERVICES Type of Draw CATHETER, ANY [facility] LABORATORY SERVICES Specimen Blood specimen (specimen) - Blood Performing Organization Address City/[facility]/ZIP Code Phon e Number [facility] LABORATORY [address] [place] [phone] SERVICES TYPE AND SCREEN (12/19/2017 7:43 EDT) ABO O [facility] BLOOD BANK Rh Factor Positive [facility] BLOOD BANK Antibody Screen Negative [facility] BLOOD BANK Specimen Expires: 12/22/2017 @ 23:59 [facility] R BLOOD BANK Specimen Blood specimen (specimen) Performing Organization Address City/[facility]/ZIP [facility] Phon e Number [facility] BLOOD BANK [address] [facility] BLOOD BANK (ABNORMAL) HEMAGRAM (12/18/2017 8:16 EDT) Pathologist Sig nature WBC 6.11 4.0 - 12.4 K/cmm [facility] LABORATORY SERVICES RBC 3.47 (L) 3.86 - 5.04 M/cmm [facility] LABORATORY SERVICES Hemoglobin 8.6 (L) 11.6 - 15.2 gm/dl [facility] LABORATORY SERVICES HCT 27.9 (L) 34.9 - 44.4 % [facility] LABORATORY SERVICES MCV 80 (L) 81 - 98 fl [facility] LABORATORY SERVICES MCH 24.8 (L) 26.7 - 33.3 pg [facility] LABORATORY SERVICES Hypochromia 1+ [facility] LABORATORY SERVICES MCHC 30.8 (L) 32.1 - 35.9 gm/dl [facility] LABORATORY SERVICES RDW-CV 24.0 (H) <14.7 % [facility] LABORATORY SERVICES RDW-SD 70.4 (H) <50.4 fl [facility] LABORATORY SERVICES Anisocytosis 2+ [facility] LABORATORY SERVICES PLT 312 141 - 377 [facility] MPV 9.0 (L) 9.5 - 12.7 fl [facility] LABORATORY SERVICES Specimen Blood specimen (specimen) - Blood Performing Organization Address City/[facility]/ZIP Code Phon e Number [facility] LABORATORY [address] [place] [address] SERVICES INPATIENT ADD-ON (12/18/2017 8:05 EDT) Pathologist Sig nature Tests to be added CREATININE [facility] LABORATORY SERVICES Number for problems M5 [facility] LABORATORY SERVICES Accession number [id number] [facility] LABORATORY SERVICES Specimen Other Performing Organization Address City/State/ZIP Code Phon e Number [facility] LABORATORY [address] [place] [address] SERVICES CREATININE (12/18/2017 6:00 EDT) Creatinine 0.89 0.52 - 1.04 [facility] mg/dl LABORATORY SERVICES GFR, Calculated 88 >60 [facility] Comment: ml/min/1.73m2 LABORATORY eGFR calculated using CKD-EPI equation for SERVICES non Americans. Multiply eGFR by 1.16 for Americans. Specimen Blood Performing Organization Address City/[facility]/ZIP Code Phon e Number [facility] LABORATORY [address] [place] [address] SERVICES MAGNESIUM (12/18/2017 6:00 EDT) Pathologist Sig nature Magnesium 2.0 1.7 - 2.8 mg/dl [facility] LABORA TORY SERVICES Specimen Blood specimen (specimen) - Blood Performing Organization Address City/[facility]/ZIP Code Phon e Number [facility] LABORATORY [address] [place] [address] SERVICES ELECTROLYTES (12/18/2017 6:00 EDT) Pathologist Sig nature Sodium 137 136 - 145 mEq/L [facility] LABORA TORY SERVICES Potassium 4.1 3.5 - 5.0 mEq/L [facility] LABORA TORY SERVICES Chloride 102 96 - 110 mEq/L [facility] LABORAT ORY SERVICES CO2 29 22 - 32 mEq/L [facility] LABORATO RY SERVICES Specimen Blood specimen (specimen) - Blood Performing Organization Address City/State/ZIP Code Phon e Number [facility] LABORATORY [address] [place] [address] SERVICES BUN (12/18/2017 6:00 EDT) Pathologist Sig nature BUN 10 10 - 26 mg/dl [facility] LABORATO RY SERVICES Specimen Blood specimen (specimen) - Blood Performing Organization Address City/State/ZIP Code Phon e Number [facility] LABORATORY [address] [place] [address] SERVICES RAD US DOPPLER LOWER EXTREMITY VENOUS UNILATERAL (12/17/2017 14:10 EDT) Anatomical Region Laterality Modality Other Specimen Narrative [facility] RADIOLOGY MAIN CAMPUS - 12/17/2017 14:49 EDT RAD US DOPPLER LOWER EXTREMITY VENOUS UNILATERAL ??12/17/2017 2:10 PM Signs and Symptoms/Comments: ??Right leg pain in setting of infective endocarditis and signs of vasoocclusive embolic phenomena (Osler nodes) Comparison: None. TECHNIQUE: Grayscale, color, and Doppler imaging of the right leg was performed. FINDINGS: The right distal external iliac vein, co mmon femoral vein, greater saphenous vein, profunda, all segments o f the superficial femoral vein, popliteal vein, posterior tibial v ein, and peroneal vein all demonstrate no evidence of intraluminal thrombus. There is normal augmentation, respiratory phasicity, and compression. IMPRESSION: No evidence of deep venous thrombosis in the right lower extremity. ?? I have personally reviewed the images an d the above interpretation and agree with the findings. 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 TECHNIQUE: Grayscale, color, and Doppler imaging of the right leg was performed. FINDINGS: The right distal external iliac vein, co mmon femoral vein, greater saphenous vein, profunda, all segments o f the superficial femoral vein, popliteal vein, posterior tibial v ein, and peroneal vein all demonstrate no evidence of intraluminal thrombus. There is normal augmentation, respiratory phasicity, and compression. IMPRESSION: No evidence of deep venous thrombosis in the right lower extremity. I have personally reviewed the images an d the above interpretation and agree with the findings. Performing Organization Address City/State/ZIP Code Phon e Number [facility] RADIOLOGY MAIN CAMPUS URINE CULTURE IF UA POSITIVE - NON POCT URINALYSIS ONLY (12/17/2017 10:57 EDT) Culture if Culture not [facility] Indicated indicated by LABORATORY SERVICES urinalysis results. Specimen Urine (substance) - Other Performing Organization Address City/State/ZIP Code Phon e Number [facility] LABORATORY [address] [place] [address] SERVICES (ABNORMAL) UA, CHEMICAL AND SEDIMENT ANALYSIS (DIPSTICK AND MICROSCOPIC) (12/17/2017 10:57 EDT) Color, UA Yellow [facility] LABORATORY SERVICES Clarity, UA Clear [facility] LABORATORY SERVICES Glucose, UA Neg Neg [facility] LABORATORY SERVICES Bilirubin, UA Neg Neg [facility] LABORATORY SERVICES Ketones, UA Neg Neg [facility] LABORATORY SERVICES Refractometer 1.012 1.001 - 1.035 [facility] SG,Urine [facility] LABORATORY SERVICES Blood, UA 2+ (A) Neg [facility] LABORATORY SERVICES pH, UA 8.0 4.6 - 8.0 [facility] LABORATORY SERVICES Protein, UA Neg Neg [facility] LABORATORY SERVICES Urobilinogen, UA Normal Normal [facility] E.U./dl [facility]ENTER LABORATORY SERVICES Nitrite, UA Neg Neg [facility] LABORATORY SERVICES Leuk Esterase Neg [facility] LABORATORY SERVICES UA Method Used [facility] Comment: [facility] Testing performed using SERVICES [employer] [id number]. Urine RBC Count 11 to 50 (A) 0 to 2 /HPF [facility] Automated [facility] SERVICES Urine WBC Count 0 to 3 0 to 3 /HPF [facility] Automated [place] [facility] Urine Squamous Few (A) None seen [facility] Epithelial Cell /LPF [facility] Count, Automated SERVICES Urine Hyaline Casts, < or = 10 < or = 10 [facility] Automated /LPF [facility] SERVICES Urine Bacteria None seen None seen [facility] Count, Automated [facility] SERVICES UA Comment Sediment results [facility] Comment: [facility] are unreliable on SERVICES urines unrefrig >2hrs or refrig >8hrs. Specimen Urine (substance) - Urine Performing Organization Address City/State/ZIP Code Phon e Number [facility] LABORATORY [address] [place] [address] SERVICES (ABNORMAL) GENTAMICIN PEAK (12/17/2017 10:56 EDT) Gentamicin Peak 4.0 (L) 5.0 - 12.0 [facility] ug/ml LABORATORY SERVICES Type of Draw CATHETER, ANY [facility] LABORATORY SERVICES Specimen Blood specimen (specimen) - Blood Performing Organization Address City/[facility]/ZIP Code Phon e Number [facility] LABORATORY [address] [place] [address] SERVICES CHEST PA AND LATERAL (12/17/2017 10:50 EDT) Anatomical Region Laterality Modality Other Specimen Narrative [facility] RADIOLOGY MAIN CAMPUS - 12/17/2017 11:28 EDT CHEST PA AND LATERAL ??12/17/2017 10:50 AM Clinical History/Comments: pre op MVR. + SOB Comparison: 12/06/2017 and 12/07/2017 Dual-energy technique with reconstructio ns in normal, soft tissue and bone windows was used. Findings: The lungs are clear aside from platelike atelectasis in left base. There is no evidence of pleural fluid or pneumothorax. The cardiac silhouette and pulmonary vascularity are normal. The tip of the new right PICC is in the right atrium. The s keleton is unremarkable for age. Procedure Note Brandon Sparrow MD - 12/17/2017 CHEST PA AND LATERAL 12/17/2017 10:50 AM Clinical History/Comments: pre op MVR. + SOB Comparison: 12/06/2017 and 12/07/2017 Dual-energy technique with reconstructio ns in normal, soft tissue and bone windows was used. Findings: The lungs are clear aside from platelike atelectasis in left base. There is no evidence of pleural fluid or pneumothorax. The cardiac silhouette and pulmonary vascularity are normal. The tip of the new right PICC is in the right atrium. The s keleton is unremarkable for age. Performing Organization Address City/State/ZIP Code Phon e Number [facility] RADIOLOGY MAIN CAMPUS MRSA PCR (12/17/2017 10:15 EDT) Pathologist Sig nature Result No Staphylococcus aureus [facility] detected by PCR. LABORATORY SERVICES Specimen Other (qualifier value) - Nasal Performing Organization Address City/State/ZIP Code Phon e Number [facility] LABORATORY [address] [place] [address] SERVICES PREPARE RED BLOOD CELLS (12/17/2017 10:13 EDT) Product Code [id number] [facility] BLOOD BANK Donor Number [id number] [facility] BLOOD BANK Unit ABO O [facility] BLOOD BANK Unit Rh POS [facility] BLOOD BANK Unit Status RE^Released From [facility] BLOOD BANK Product Expiration [id number] [facility] BLOOD BANK Unit Blood Type 5100 [facility] BLOOD BANK Coding System [id number] [facility] BLOOD BANK Specimen Performing Organization Address City/[facility]/ZIP Code Phon e Number [facility] BLOOD BANK [address] [facility]. [address] BLOOD BANK PREPARE RED BLOOD CELLS (12/17/2017 10:13 EDT) Product Code [id number] [facility] BLOOD BANK Donor Number [id number] [facility] BLOOD BANK Unit ABO O [facility] BLOOD BANK Unit Rh POS [facility] BLOOD BANK Unit Status RE^Released From [facility] BLOOD BANK Product Expiration [id number] [facility] BLOOD BANK Unit Blood Type 5100 [facility] BLOOD BANK Coding System [id number] [facility] BLOOD BANK Specimen Performing Organization Address City/[facility]/ZIP Code Phon e Number [facility] BLOOD BANK [address] [facility]. [address] BLOOD BANK PREPARE RED BLOOD CELLS (12/17/2017 10:13 EDT) Product Code [id number] [facility] BLOOD BANK Donor Number [id number] [facility] BLOOD BANK Unit ABO O [facility] BLOOD BANK Unit Rh POS [facility] BLOOD BANK Unit Status TR^Transfuse [facility] BLOOD BANK Product Expiration [id number] [facility] BLOOD BANK Unit Blood Type Code 5100 [facility] BLOOD BANK Coding System [id number] [facility] BLOOD BANK Specimen Performing Organization Address City/[facility]/ZIP Code Phon e Number [facility] BLOOD BANK [address] [facility]. [address] BLOOD BANK PREPARE RED BLOOD CELLS (12/17/2017 10:13 EDT) Product Code [id number] [facility] BLOOD BANK Donor Number [id number] [facility] BLOOD BANK Unit ABO O [facility] BLOOD BANK Unit Rh POS [facility] BLOOD BANK Unit Status RE^Released From [facility] BLOOD BANK Product Expiration [id number] [facility] BLOOD BANK Unit Blood Type 5100 [facility] BLOOD BANK Coding System [id number] [facility] BLOOD BANK Specimen Blood specimen (specimen) Performing Organization Address City/State/ZIP Code Phon e Number [facility] BLOOD BANK [address] [place] [address] [facility] BLOOD BANK (ABNORMAL) HEMAGRAM AND DIFFERENTIAL (12/17/2017 6:00 EDT) Pathologist Sig nature WBC 4.86 4.0 - 12.4 K/cmm [facility] LABORATORY SERVICES RBC 3.25 (L) 3.86 - 5.04 M/cmm [facility] LABORATORY SERVICES Hemoglobin 8.1 (L) 11.6 - 15.2 gm/dl [facility] LABORATORY SERVICES HCT 26.4 (L) 34.9 - 44.4 % [facility] LABORATORY SERVICES MCV 81 81 - 98 fl [facility] LABORATORY SERVICES MCH 24.9 (L) 26.7 - 33.3 pg [facility] LABORATORY SERVICES Hypochromia 1+ [facility] LABORATORY SERVICES MCHC 30.7 (L) 32.1 - 35.9 gm/dl [facility] LABORATORY SERVICES RDW-CV 23.7 (H) <14.7 % [facility] LABORATORY SERVICES RDW-SD 70.1 (H) <50.4 fl [facility] LABORATORY SERVICES Anisocytosis 2+ [facility] LABORATORY SERVICES PLT 249 141 - 377 K/cmm [facility] LABORATORY SERVICES MPV 9.0 (L) 9.5 - 12.7 fl [facility] LABORATORY SERVICES Neutrophils 43.0 % [facility] LABORATORY SERVICES Lymphocytes 51.0 % [facility] LABORATORY SERVICES Monocytes 4.0 % [facility] LABORATORY SERVICES Eosinophils 1.0 % [facility] LABORATORY SERVICES Basophils 1.0 % [facility] LABORATORY SERVICES ABS Neutrophils 2.09 (L) 2.20 - 8.85 K/cmm [facility] LABORATORY SERVICES ABS Lymphs 2.48 1.09 - 3.30 K/cmm [facility] LABORATORY SERVICES ABS Monocytes 0.19 0.1 - 0.8 K/cmm [facility] LABORATORY SERVICES ABS Eosinophils 0.05 0.03 - 0.61 K/cmm [facility] LABORATORY SERVICES ABS Basophils 0.05 0.01 - 0.11 K/cmm [facility] LABORATORY SERVICES Type of Diff: Manual [facility] LABORATORY SERVICES Specimen Blood specimen (specimen) - Blood Performing Organization Address [facility]/ZIP Code Phon e Number [facility] LABORATORY [address] [place] [address] SERVICES CREATININE (12/17/2017 6:00 EDT) Creatinine 0.92 0.52 - 1.04 [facility] mg/dl LABORATORY SERVICES GFR, Calculated 85 >60 [facility] Comment: ml/min/1.73m2 LABORATORY eGFR calculated using CKD-EPI equation for SERVICES non Americans. Multiply eGFR by 1.16 for Americans. Specimen Blood specimen (specimen) - Blood Performing Organization Address [facility]/ZIP Code Phon e Number [facility] LABORATORY [address] [place] [address] SERVICES GENTAMICIN, RANDOM (12/17/2017 6:00 EDT) Gentamicin, Random 1.0 ug/ml [facility] Comment: LABORATORY SERVICES Reference Range: Trough: ??<1.5 Peak: ??5.0-12.0 Specimen Blood specimen (specimen) - Blood Performing Organization Address City/[facility]/ZIP Code Phon e Number [facility] LABORATORY [address] [place] [address] SERVICES MAGNESIUM (12/16/2017 11:44 EDT) Pathologist Sig nature Magnesium 2.0 1.7 - 2.8 mg/dl [facility] LABORA TORY SERVICES Specimen Blood specimen (specimen) - Blood Performing Organization Address [facility]/ZIP [facility] Phon e Number [facility] LABORATORY [address] [place] [address] SERVICES (ABNORMAL) HEMAGRAM (12/16/2017 11:44 EDT) Pathologist Sig nature WBC 4.89 4.0 - 12.4 K/cmm [facility] LABORATORY SERVICES RBC 3.36 (L) 3.86 - 5.04 M/cmm [facility] LABORATORY SERVICES Hemoglobin 8.4 (L) 11.6 - 15.2 gm/dl [facility] LABORATORY SERVICES HCT 27.3 (L) 34.9 - 44.4 % [facility] LABORATORY SERVICES MCV 81 81 - 98 fl [facility] LABORATORY SERVICES MCH 25.0 (L) 26.7 - 33.3 pg [facility] LABORATORY SERVICES Hypochromia 1+ [facility] LABORATORY SERVICES MCHC 30.8 (L) 32.1 - 35.9 gm/dl [facility] LABORATORY SERVICES RDW-CV 23.5 (H) <14.7 % [facility] LABORATORY SERVICES RDW-SD 70.5 (H) <50.4 fl [facility] LABORATORY SERVICES Anisocytosis 2+ [facility] LABORATORY SERVICES PLT 254 141 - 377 K/cmm [facility] LABORATORY SERVICES MPV 9.2 (L) 9.5 - 12.7 fl [facility] LABORATORY SERVICES Specimen Blood specimen (specimen) - Blood Performing Organization Address City/[facility]/ZIP Code Phon e Number [facility] LABORATORY [address] [place] [address] SERVICES ELECTROLYTES (12/16/2017 11:44 EDT) Pathologist Sig nature Sodium 138 136 - 145 mEq/L [facility] LABORA TORY SERVICES Potassium 4.4 3.5 - 5.0 mEq/L [facility] LABORA TORY SERVICES Chloride 103 96 - 110 mEq/L [facility] LABORAT ORY SERVICES CO2 31 22 - 32 mEq/L [facility] LABORATO RY SERVICES Specimen Blood specimen (specimen) - Blood Performing Organization Address [facility] Code Phon e Number [facility] LABORATORY [address] [place] [address] SERVICES CREATININE (12/16/2017 11:44 EDT) Creatinine 0.90 0.52 - 1.04 [facility] mg/dl LABORATORY SERVICES GFR, Calculated 87 >60 [facility] Comment: ml/min/1.73m2 LABORATORY eGFR calculated using CKD-EPI equation for SERVICES non Americans. Multiply eGFR by 1.16 for Americans. Specimen Blood specimen (specimen) - Blood Performing Organization Address City/State/ZIP Code Phon e Number [facility] LABORATORY [address] [place] [address] SERVICES (ABNORMAL) BUN (12/16/2017 11:44 EDT) Pathologist Sig nature BUN 8 (L) 10 - 26 mg/dl [facility] LABORATO RY SERVICES Specimen Blood specimen (specimen) - Blood Performing Organization Address City/[facility]/ZIP Code Phon e Number [facility] LABORATORY [address] [place] [address] SERVICES TRANSESOPHAGEAL ECHO (KRISTOPHER) (12/15/2017 15:54 EDT) Specimen Narrative [facility] CARDIOLOGY MAIN CALLIE S - 12/15/2017 17:07 EDT *Interpreting Group:* *[facility]* [address] [place] [address] Date of study: 12/15/2017 Transesophageal Echocardiography 2D, spectral Doppler, and color Doppler *STUDY CONCLUSIONS* Summary: 1. Left ventricle: The cavity size was m ildly dilated. Wall thickness ?? was normal. Systolic function was no rmal. The estimated ejection ?? fraction was 60-65%. Wall motion was normal; there were no regional ?? wall motion abnormalities. 2. Right ventricle: The cavity size was normal. Wall thickness was ?? normal. Systolic function was normal . 3. Mitral valve: Moderate thickening of the anterior leaflet (middle and ?? lateral segment(s)). Thickening of t he posterior leaflet. There was a ?? large, layered, mobile vegetation on the atrial aspect of the ?? anterior leaflet that extends into t he left ventricle during ?? diastole. There was a large, protrud ing, serpiginous, highly mobile ?? vegetation on the atrial aspect of t he posterior leaflet. There was ?? evidence for a large, mobile phlegmo n and soft tissue erosion ?? extending from the posterior leaflet annulus to the posterior and ?? lateral wall of the left atrium. The re was severe regurgitation ?? directed eccentrically. 4. Left atrium: No evidence of thrombus in the appendage. The appendage ?? was morphologically a left appendage , multilobulated, and of normal ?? size. Emptying velocity was normal. 5. Atrial septum: No defect or patent fo ramen ovale was identified. ?? Doppler showed no atrial level shunt , in the baseline state. 6. Line: A venous catheter was visualize d in the superior vena cava, ?? with its tip in the right atrium. No abnormal features noted. *PATIENT PRESENTATION* Height: ? 172.7cm ((68in) ) S/D Pressure: 133 / 85 Weight: ? 95.5kg ((210lb) ) BSA: ?2.17m^2 Test start time: ??02:49 PM. Test stop time: ??03:11 PM. ATTENDING ?? Orlando Alvarado MD REFERRING ?? Nick Kumar FELLOW ?Azalia Hall MD ADMITTING ?? Arie Padilla ATTENDING ?? Arie Padilla ORDERING ?Vo Do, Marta P REFERRING ?? Vo Do, Marta P PERFORMING ??[employer], Kristopher FELLOW ?Italo Batista MD *PROCEDURE DATA* Procedure information: ??Dr. Orlando Dixon er supervised and was present for the performance of the entire procedure. This study was interpreted by [facility]. Pertinent images and digital data are archived for permanent storage and are available for subsequent review. ??Study status: ??Rou rachel. Diagnostic transesophageal echocardiography. ??2D, spectral Doppler , and color Doppler. ??Consent: The risks, benefits, and alternatives to the procedure were explained to the patient and consent was verbally obt ained. ??Barriers to education: No barriers to education identified. In tia setup. The patient was brought to the laboratory in the fasting state. Surface ECG leads, blood pressure measurements, and pulse oximetr ic signals were monitored. Sedation. Moderate sedation with intermi ttent deep sedation was administered by Anesthesiology. A Transe sophageal echocardiogram was performed for endocarditis evaluation. A Multiplane 3D transesophageal probe was inserted by Sonia Arboleda. Images were obtained using an Epiq 11 cardiac ultras ound machine. Image quality was good. The transesophageal probe was yovanny brock. ??Study completion: ??The patient tolerated the procedure well. Th ere was no blood loss or specimens removed during the procedure. There were no complications. *CARDIAC ANATOMY* Left ventricle: ??The cavity size was mi ldly dilated. Wall thickness was normal. Systolic function was normal. Th e estimated ejection fraction was 60-65%. Wall motion was normal; ther e were no regional wall motion abnormalities. Aortic valve: ?? Structurally normal joan ve. Trileaflet; normal thickness leaflets. Cusp separation was normal. ?? No evidence of vegetation. Doppler: ??There was no significant regu rgitation. Aorta: ??There was no atheroma. There wa s no evidence for dissection. Aortic root: The aortic root was not dil ated. Ascending aorta: The ascending aorta was normal in size. Aortic arch: The aortic arch was normal in size. Descending aorta: The descending aorta w as normal in size. Mitral valve: ?? Moderate thickening of the anterior leaflet (middle and lateral segment(s)). ??Thickening of the posterior leaflet. Leaflet separation was normal. There was a large , layered, mobile vegetation on the atrial aspect of the anterior leafle t that extends into the left ventricle during diastole. There was a l arge, protruding, serpiginous, highly mobile vegetation on the atrial a spect of the posterior leaflet. There was evidence for a large, mobile p hlegmon and soft tissue erosion extending from the posterior leaflet marta ulus to the posterior and lateral wall of the left atrium. ??Doppl er: ??There was severe regurgitation directed eccentrically. Left atrium: ??The atrium was normal in size. ??No evidence of thrombus in the appendage. The appendage was morphol ogically a left appendage, multilobulated, and of normal size. Empt kulwinder velocity was normal. Atrial septum: ??No defect or patent for amen ovale was identified. Doppler showed no atrial level shunt, in the baseline state. Right ventricle: ??The cavity size was n ormal. Wall thickness was normal. Systolic function was normal. Pulmonic valve: ?The pulmonary valve appears to be grossly normal. No evidence of vegetation. ??Doppler: ?? There was no significant regurgitation. Tricuspid valve: ?? Structurally normal valve. ?? Leaflet separation was normal. ??No evidence of vegetation. ??D oppler: ??There was no significant regurgitation. Pulmonary artery: ?? The main pulmonary artery was normal-sized. Right atrium: ??The atrium was normal in size. Pericardium: ??There was no pericardial effusion. Systemic veins: Line: A venous catheter was visualized i n the superior vena cava, with its tip in the right atrium. No abnormal features noted. I have personally reviewed the images an d have reviewed and edited the reported findings. Electronically signed by Orlando Alvarado MD 12/15/2017 17:07 Procedure Note Orlando Alvarado MD - 12/15/2017 *Interpreting Group:* *[facility]* [address] [place] [address] Date of study: 12/15/2017 Transesophageal Echocardiography 2D, spectral Doppler, and color Doppler *STUDY CONCLUSIONS* Summary: 1. Left ventricle: The cavity size was m ildly dilated. Wall thickness was normal. Systolic function was harsh l. The estimated ejection fraction was 60-65%. Wall motion was no rmal; there were no regional wall motion abnormalities. 2. Right ventricle: The cavity size was normal. Wall thickness was normal. Systolic function was normal. 3. Mitral valve: Moderate thickening of the anterior leaflet (middle and lateral segment(s)). Thickening of the posterior leaflet. There was a large, layered, mobile vegetation on th e atrial aspect of the anterior leaflet that extends into the left ventricle during diastole. There was a large, protruding , serpiginous, highly mobile vegetation on the atrial aspect of the posterior leaflet. There was evidence for a large, mobile phlegmon a nd soft tissue erosion extending from the posterior leaflet an nulus to the posterior and lateral wall of the left atrium. There was severe regurgitation directed eccentrically. 4. Left atrium: No evidence of thrombus in the appendage. The appendage was morphologically a left appendage, m ultilobulated, and of normal size. Emptying velocity was normal. 5. Atrial septum: No defect or patent fo ramen ovale was identified. Doppler showed no atrial level shunt, i n the baseline state. 6. Line: A venous catheter was visualize d in the superior vena cava, with its tip in the right atrium. No ab normal features noted. *PATIENT PRESENTATION* Height: 172.7cm ((68in) ) S/D Pressure: 133 / 85 Weight: 95.5kg ((210lb) ) BSA: 2.17m^2 Test start time: 02:49 PM. Test stop time: 03:11 PM. ATTENDING Orlando Alvarado MD REFERRING Nick Kumar FELLOW Azalia Hall MD ADMITTING Arie Padilla ATTENDING Arie Padilla ORDERING Vo Do, Marta P REFERRING Vo Do Marta P PERFORMING [employer], Kristopher FELLOW Italo Batista MD *PROCEDURE DATA* Procedure information: Dr. Orlando Alvarado supervised and was present for the performance of the entire procedure. This study was interpreted by [facility]. Pertinent images and digital data are archived for permanent storage and are available for subsequent review. Study status: Routine . Diagnostic transesophageal echocardiography. 2D, spectral Doppler, and color Doppler. Consent: The risks, benefits, and alternatives to the procedure were explained to the patient and consent was verbally obt ained. Barriers to education: No barriers to education identified. Ini tial setup. The patient was brought to the laboratory in the fasting state. Surface ECG leads, blood pressure measurements, and pulse oximetr ic signals were monitored. Sedation. Moderate sedation with intermi ttent deep sedation was administered by Anesthesiology. A Transe sophageal echocardiogram was performed for endocarditis evaluation. A Multiplane 3D transesophageal probe was inserted by Sonia Arboleda. Images were obtained using an Epiq 11 cardiac ultras ound machine. Image quality was good. The transesophageal probe was yovanny brock. Study completion: The patient tolerated the procedure well. Th ere was no blood loss or specimens removed during the procedure. There were no complications. *CARDIAC ANATOMY* Left ventricle: The cavity size was mild ly dilated. Wall thickness was normal. Systolic function was normal. Th e estimated ejection fraction was 60-65%. Wall motion was normal; ther e were no regional wall motion abnormalities. Aortic valve: Structurally normal valve. Trileaflet; normal thickness leaflets. Cusp separation was normal. No evidence of vegetation. Doppler: There was no significant regurg itation. Aorta: There was no atheroma. There was no evidence for dissection. Aortic root: The aortic root was not dil ated. Ascending aorta: The ascending aorta was normal in size. Aortic arch: The aortic arch was normal in size. Descending aorta: The descending aorta w as normal in size. Mitral valve: Moderate thickening of the anterior leaflet (middle and lateral segment(s)). Thickening of the p osterior leaflet. Leaflet separation was normal. There was a large , layered, mobile vegetation on the atrial aspect of the anterior leafle t that extends into the left ventricle during diastole. There was a l arge, protruding, serpiginous, highly mobile vegetation on the atrial a spect of the posterior leaflet. There was evidence for a large, mobile p hlegmon and soft tissue erosion extending from the posterior leaflet marta ulus to the posterior and lateral wall of the left atrium. Doppler : There was severe regurgitation directed eccentrically. Left atrium: The atrium was normal in si ze. No evidence of thrombus in the appendage. The appendage was morphol ogically a left appendage, multilobulated, and of normal size. Empt kulwinder velocity was normal. Atrial septum: No defect or patent lydia en ovale was identified. Doppler showed no atrial level shunt, in the baseline state. Right ventricle: The cavity size was nor mal. Wall thickness was normal. Systolic function was normal. Pulmonic valve: The pulmonary valve appe ars to be grossly normal. No evidence of vegetation. Doppler: Ther e was no significant regurgitation. Tricuspid valve: Structurally normal joan ve. Leaflet separation was normal. No evidence of vegetation. Doppl er: There was no significant regurgitation. Pulmonary artery: The main pulmonary art imtiaz was normal-sized. Right atrium: The atrium was normal in s ize. Pericardium: There was no pericardial ef fusion. Systemic veins: Line: A venous catheter was visualized i n the superior vena cava, with its tip in the right atrium. No abnormal features noted. I have personally reviewed the images an d have reviewed and edited the reported findings. Electronically signed by Orlando Alvarado MD 12/15/2017 17:07 Performing Organization Address City/State/ZIP Code Phon e Number [facility] CARDIOLOGY [facility] (ABNORMAL) GENTAMICIN PEAK (12/14/2017 12:19 EDT) Gentamicin Peak 3.4 (L) 5.0 - 12.0 [facility] ug/ml LABORATORY SERVICES Type of Draw VENIPUNCTURE/HE [facility] LABORATORY SERVICES (PREFERRED) Specimen Blood specimen (specimen) - Blood Performing Organization Address City/State/ZIP Code Phon e Number [facility] LABORATORY [address] [place] [address] SERVICES GENTAMICIN TROUGH (12/14/2017 9:17 EDT) Pathologist Sig nature Gentamicin Trough 0.5 <1.5 ug/ml [facility] LABORATORY SERVICES Type of Draw CATHETER, ANY [facility] LABORATORY SERVICES Specimen Blood specimen (specimen) - Blood Performing Organization Address City/State/ZIP Code Phon e Number [facility] LABORATORY [address] [place] [address] SERVICES MAGNESIUM (12/14/2017 6:10 EDT) Pathologist Sig nature Magnesium 1.9 1.7 - 2.8 mg/dl [facility] LABORA TORY SERVICES Specimen Blood specimen (specimen) - Blood Performing Organization Address City/State/ZIP Code Phon e Number [facility] LABORATORY [address] [place] [address] SERVICES (ABNORMAL) HEMAGRAM (12/14/2017 6:10 EDT) Pathologist Sig nature WBC 3.38 (L) 4.0 - 12.4 K/cmm [facility] LABORATORY SERVICES RBC 3.40 (L) 3.86 - 5.04 M/cmm [facility] LABORATORY SERVICES Hemoglobin 8.1 (L) 11.6 - 15.2 gm/dl [facility] LABORATORY SERVICES HCT 27.1 (L) 34.9 - 44.4 % [facility] LABORATORY SERVICES MCV 80 (L) 81 - 98 fl [facility] LABORATORY SERVICES MCH 23.8 (L) 26.7 - 33.3 pg [facility] LABORATORY SERVICES Hypochromia 1+ [facility] LABORATORY SERVICES MCHC 29.9 (L) 32.1 - 35.9 gm/dl [facility] LABORATORY SERVICES RDW-CV 23.0 (H) <14.7 % [facility] LABORATORY SERVICES RDW-SD 66.0 (H) <50.4 fl [facility] LABORATORY SERVICES Anisocytosis 2+ [facility] LABORATORY SERVICES PLT 220 141 - 377 K/cmm [facility] LABORATORY SERVICES MPV 9.4 (L) 9.5 - 12.7 fl [facility] LABORATORY SERVICES Specimen Blood specimen (specimen) - Blood Performing Organization Address [facility]/ZIP Code Phon e Number [facility] LABORATORY [address] [place] [address] SERVICES ELECTROLYTES (12/14/2017 6:10 EDT) Pathologist Sig nature Sodium 140 136 - 145 mEq/L [facility] LABORA TORY SERVICES Potassium 4.3 3.5 - 5.0 mEq/L [facility] LABORA TORY SERVICES Chloride 103 96 - 110 mEq/L [facility] LABORAT ORY SERVICES CO2 30 22 - 32 mEq/L [facility] LABORATO RY SERVICES Specimen Blood specimen (specimen) - Blood Performing Organization Address [facility] Phon e Number [facility] LABORATORY [address] [place] [address] SERVICES CREATININE (12/14/2017 6:10 EDT) Creatinine 0.83 0.52 - 1.04 [facility] mg/dl LABORATORY SERVICES GFR, Calculated 96 >60 [facility] Comment: ml/min/1.73m2 LABORATORY eGFR calculated using CKD-EPI equation for SERVICES non Americans. Multiply eGFR by 1.16 for Americans. Specimen Blood specimen (specimen) - Blood Performing Organization Address [facility]/ZIP [facility] Phon e Number [facility] LABORATORY [address] [place] [address] SERVICES (ABNORMAL) BUN (12/14/2017 6:10 EDT) Pathologist Sig nature BUN 7 (L) 10 - 26 mg/dl [facility] LABORATO RY SERVICES Specimen Blood specimen (specimen) - Blood Performing Organization Address [facility]/ZIP Code Phon e Number [facility] LABORATORY [address] [place] [address] SERVICES (ABNORMAL) GENTAMICIN PEAK (12/13/2017 14:24 EDT) Pathologist Sig nature Gentamicin Peak 2.0 (L) 5.0 - 12.0 ug/ml [facility] LABORATORY SERVICES Type of Draw CATHETER [facility] LABORATORY SERVICES Specimen Blood Performing Organization Address City/State/ZIP Code Phon e Number [facility] LABORATORY [address] [place] [address] SERVICES GENTAMICIN TROUGH (12/13/2017 12:57 EDT) Pathologist Sig nature Gentamicin Trough 0.7 <1.5 ug/ml [facility] LABORATORY SERVICES Type of Draw CATHETER, ANY [facility] LABORATORY SERVICES Specimen Blood specimen (specimen) - Blood Performing Organization Address [facility]/ZIP Code Phon e Number [facility] LABORATORY [address] [place] [address] SERVICES EKG 12-LEAD (12/13/2017 7:25 EDT) Specimen Narrative [facility] EKG - 12/16/2017 8:13 EDT ? [facility] ? Test Date: ?2017-12-13 Pat Name: ? ISH ORELLANA ? Department: ?? Karthikeyan 5 ? Room: ? ME524 Gender: ? Female ? 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 [id number] : ?1990 ? Requested By: AUDREY NEAL Order Number: [id number] ? Darlene INGRAM: ?? AJIT AGUILAR MD ? Measurements Intervals ?[place] ? Rate: ? 86 ? P: ?53 GA: ? 185 ?QRS: ?45 QRSD: ? 95 ? T: ?15 QT: ? 386 ? QTc: ?462 ? Interpretive Statements SINUS RHYTHM Automated Interpretation. ??Provider Int erpretation to follow. Compared to ECG 12/12/2017 07:57:42 No significant changes I reviewed the tracing and have either a greed or edited the findings in this report. Electronically Signed On 12-17-19 8:13:46 EDT by AJIT AGUILAR MD. 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 Provider Inter pretation to follow. Compared to ECG 12/12/2017 07:57:42 No significant changes I reviewed the tracing and have either a greed or edited the findings in this report. Electronically Signed On 12-17-19 18 8:13:46 EDT by AJIT AGUILAR MD. Performing Organization Address [facility]/ZIP Code Phon e Number [facility] EKG GENTAMICIN PEAK (12/12/2017 14:25 EDT) Gentamicin Peak 6.2 5.0 - 12.0 [facility] ug/ml LABORATORY SERVICES Type of Draw CATHETER, ANY [facility] LABORATORY SERVICES Specimen Blood specimen (specimen) - Blood Performing Organization Address [facility] Phon e Number [facility] LABORATORY [address] [place] [address] SERVICES GENTAMICIN TROUGH (12/12/2017 12:24 EDT) Pathologist Sig nature Gentamicin Trough 1.2 <1.5 ug/ml [facility] LABORATORY SERVICES Type of Draw CATHETER, ANY [facility] LABORATORY SERVICES Specimen Blood specimen (specimen) - Blood Performing Organization Address [facility] Phon e Number [facility] LABORATORY [address] [place] [address] SERVICES GLUCOSE, GLUCOMETER (12/12/2017 10:17 EDT) Glucose, 87 70 - 100 [facility] Fingerstick mg/dl LABORATORY SERVICES Chuck Tender ID [id number]: [facility] Test Performed by LABORATORY Nursing Services SERVICES Specimen Blood Performing Organization Address [facility] Phon e Number [facility] LABORATORY [address] [place] [address] SERVICES EKG 12-LEAD (12/12/2017 7:57 EDT) Specimen Narrative [facility] EKG - 12/14/2017 12:5 0 EDT ? [facility] ? Test Date: ?2017-12-12 Pat Name: ? ISH ORELLANA ? Department: ?? [place] 5 ? Room: ? ME524 Gender: ? Female ? 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 [id number] : ?1990 ? Requested By: AUDREY NEAL Order Number: [id number] ? Reading MD: ?? GREG VIEIRA MD ? Measurements Intervals ?[place] ? Rate: ? 83 ? P: ?51 GA: ? 207 ?QRS: ?88 QRSD: ? 104 ?T: ?21 QT: ? 399 ? QTc: ?470 ? Interpretive Statements SINUS RHYTHM .Compared to ECG 12/11/2017 07:08:11 No significant changes I reviewed the tracing and have either a greed or edited the findings in this report. Electronically Signed On 12-15-19 12:50:47 EDT by GREG VIEIRA MD. 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 Electronically Signed On 12-15-19 12:50:47 EDT by GREG VIEIRA MD. Performing Organization Address City/State/ZIP Code Phon e Number [facility] EKG (ABNORMAL) HEMAGRAM (12/12/2017 6:19 EDT) Pathologist Sig nature WBC 3.72 (L) 4.0 - 12.4 K/cmm [facility] LABORATORY SERVICES RBC 3.51 (L) 3.86 - 5.04 M/cmm [facility] LABORATORY SERVICES Hemoglobin 8.4 (L) 11.6 - 15.2 gm/dl [facility] LABORATORY SERVICES HCT 27.7 (L) 34.9 - 44.4 % [facility] LABORATORY SERVICES MCV 79 (L) 81 - 98 fl [facility] LABORATORY SERVICES MCH 23.9 (L) 26.7 - 33.3 pg [facility] LABORATORY SERVICES Hypochromia 1+ [facility] LABORATORY SERVICES MCHC 30.3 (L) 32.1 - 35.9 gm/dl [facility] LABORATORY SERVICES RDW-CV 23.7 (H) <14.7 % [facility] LABORATORY SERVICES RDW-SD 66.8 (H) <50.4 fl [facility] LABORATORY SERVICES Anisocytosis 2+ [facility] LABORATORY SERVICES PLT 197 141 - 377 K/cmm [facility] LABORATORY SERVICES MPV 9.4 (L) 9.5 - 12.7 fl [facility] LABORATORY SERVICES Specimen Blood specimen (specimen) - Blood Performing Organization Address City/[facility]/ZIP Code Phon e Number [facility] LABORATORY [address] [place] [address] SERVICES MAGNESIUM (12/12/2017 6:19 EDT) Pathologist Sig nature Magnesium 1.8 1.7 - 2.8 mg/dl [facility] LABORA TORY SERVICES Specimen Blood specimen (specimen) - Blood Performing Organization Address [facility]/ZIP [facility] Phon e [facility] LABORATORY [address] [place] [address] SERVICES CREATININE (12/12/2017 6:19 EDT) Creatinine 0.76 0.52 - 1.04 [facility] mg/dl LABORATORY SERVICES GFR, Calculated 107 >60 [facility] Comment: ml/min/1.73m2 LABORATORY eGFR calculated using CKD-EPI equation for SERVICES non Americans. Multiply eGFR by 1.16 for Americans. Specimen Blood specimen (specimen) - Blood Performing Organization Address City/[facility]/ZIP Code Phon e Number [facility] LABORATORY [address] [place] [address] SERVICES (ABNORMAL) BUN (12/12/2017 6:19 EDT) Pathologist Sig nature BUN 5 (L) 10 - 26 mg/dl [facility] LABORATO RY SERVICES Specimen Blood specimen (specimen) - Blood Performing Organization Address City/[facility]/ZIP Code Phon e Number [facility] LABORATORY [address] [place] [id number] SERVICES ELECTROLYTES (12/12/2017 6:19 EDT) Pathologist Sig nature Sodium 138 136 - 145 mEq/L [facility] LABORA TORY SERVICES Potassium 4.7 3.5 - 5.0 mEq/L [facility] LABORA TORY SERVICES Chloride 104 96 - 110 mEq/L [facility] LABORAT ORY SERVICES CO2 30 22 - 32 mEq/L [facility] LABORATO RY SERVICES Specimen Blood specimen (specimen) - Blood Performing Organization Address City/[facility]/ZIP Code Phon e Number [facility] LABORATORY [address] [place] [address] SERVICES BACTERIAL CULTURE, BLOOD (12/11/2017 11:37 EDT) Pathologist Sig nature Result No growth [facility] LABORATOR Y SERVICES Specimen Blood specimen (specimen) - Blood Performing Organization Address City/[facility]/ZIP Code Phon e Number [facility] LABORATORY [address] [place] [address] SERVICES BACTERIAL CULTURE, BLOOD (12/11/2017 11:37 EDT) Pathologist Sig nature Result No growth [facility] LABORATOR Y SERVICES Specimen Blood specimen (specimen) - Blood Performing Organization Address City/[facility]/ZIP Code Phon e Number [facility] LABORATORY [address] [place] [address] SERVICES INSERT PICC LINE (12/11/2017 9:44 EDT) Narrative Kandi Lawrence RN - 12/11/2017 9:44 EDT Kandi Lawrence RN ? 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: Patient Location: [place] [address] Preliminary Data: Insertion Date: 12/11/17 Insertion Time: 0937 First Chuck Tender: Kandi Lawrence RN RN/CAIO Documenting Procedure: Zurdo gentile RN Pre-procedure: Time Out / Final Moment Performed: Yes Hand Hygiene Immediately Prior To Proced ure: Yes Site Disinfected-2% Chlorhex/70% Alcohol : Yes Procedure Site Completely Dry: Yes Entire Patient Draped in Sterile Fashion : Yes Intra-procedure: Sterile Gloves Used: Yes Cap, Mask, and Sterile Gown - Operators: Yes Sterile Field Maintained: Yes Cap and Mask Worn - All Personnel: Yes Post-procedure: Sterile Dressing Applied - Sterile Techn ique: Yes Dressing Dated And Timed: Yes Needle Passes: [facility] RN Makes 2 Or Fewer Needle Passes: 2 or fewer passes ?Physician Documentation Pre-Procedure: Procedure To Be Performed: New central l ine placement Indication: Poor peripheral access Conditions Present: Other (Comment) (end ocarditis) Line Priority: Routine Tip Confirmation: 3CG Consent Obtained: Yes The patient and/or family have been prov ided education/training to minimize the risk of central line-ass ociated bloodstream infections. Central Line Type: Central Catheter Type: PICC PICC Type: Solo PICC Central Line Details: Line Location: Right;Brachial Final Tip Location: Other (Comment) (CAJ with 3CG) Line Lumens (#): Double Central Line Size: 5 Fr Line Coating: Non-antimicrobial coated Vessel Size: 7 mm Vein Depth (cm): 1.0 cm Line Trim Length: 43 cm Line External Length: 3 cm Line Securement Device: Statlock device Responsible Service / IR Details: Responsible Service: [facility] RN Lidocaine 1% - Route/Dose (cc's): Intrad ermal;2 Central Line Materials and Methods: Number of Attempts: 1 Number of Sites Attempted: 1 Number of Kits Used: 1 Location Device Used: Sherlock;Ultrasoun d;3CG Central Line Operators: Number Of Operators: 1 First Chuck Tender's Name: Kandi Lawrence RN First Chuck Tender's Title: Vascular water filterer Unless otherwise noted, there were no co mplications, no blood loss and no cultures obtained. KANDI LAWRENCE RN ?? 12/11/2017 ?? 9:4 4 EKG 12-LEAD (12/11/2017 7:08 EDT) Specimen Narrative [facility] EKG - 01/04/2018 13:0 5 EDT ? [facility] ? Test Date: ?2017-12-11 Pat Name: ? ISH ORELLANA ? Department: ?? Karthikeyan Molina ? Room: ? ME524 Gender: ? Female ? 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 [id number] : ?1990 ? Requested By: AUDREY NEAL Order Number: [id number] ? Reading MD: ?? LEELA MORA MD ? Measurements Intervals ?[place] ? Rate: ? 75 ? P: ?38 GA: ? 203 ?QRS: ?34 QRSD: ? 97 ? T: ?6 QT: ? 431 ? QTc: ?483 ? Interpretive Statements SINUS RHYTHM Compared to ECG 12/10/2017 07:51:00 No significant changes I reviewed the tracing and have either a greed or edited the findings in this report. Electronically Signed On 8 13:05:57 EDT by LEELA MORA MD. 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 Electronically Signed On 13:05:57 EDT by LEELA MORA MD. Performing Organization Address City/[facility] Code Phon e Number [facility] EKG (ABNORMAL) HEMAGRAM (12/11/2017 6:20 EDT) Pathologist Sig nature WBC 4.90 4.0 - 12.4 K/cmm [facility] LABORATORY SERVICES RBC 3.85 (L) 3.86 - 5.04 M/cmm [facility] LABORATORY SERVICES Hemoglobin 9.0 (L) 11.6 - 15.2 gm/dl [facility] LABORATORY SERVICES HCT 29.2 (L) 34.9 - 44.4 % [facility] LABORATORY SERVICES MCV 76 (L) 81 - 98 fl [facility] LABORATORY SERVICES MCH 23.4 (L) 26.7 - 33.3 pg [facility] LABORATORY SERVICES Hypochromia 1+ [facility] LABORATORY SERVICES MCHC 30.8 (L) 32.1 - 35.9 gm/dl [facility] LABORATORY SERVICES RDW-CV 23.9 (H) <14.7 % [facility] LABORATORY SERVICES RDW-SD 63.8 (H) <50.4 fl [facility] LABORATORY SERVICES Anisocytosis 2+ [facility] LABORATORY SERVICES PLT 193 141 - 377 K/cmm [facility] LABORATORY SERVICES MPV 9.8 9.5 - 12.7 fl [facility] LABORATORY SERVICES Specimen Blood specimen (specimen) - Blood Performing Organization Address City/State/ZIP Code Phon e Number [facility] LABORATORY [address] [place] [address] SERVICES MAGNESIUM (12/11/2017 6:20 EDT) Pathologist Sig nature Magnesium 2.0 1.7 - 2.8 mg/dl [facility] LABORA TORY SERVICES Specimen Blood specimen (specimen) - Blood Performing Organization Address City/[facility]/ZIP Code Phon e Number [facility] LABORATORY [address] [place] [address] SERVICES CREATININE (12/11/2017 6:20 EDT) Creatinine 0.62 0.52 - 1.04 [facility] mg/dl LABORATORY SERVICES GFR, Calculated 123 >60 [facility] Comment: ml/min/1.73m2 LABORATORY eGFR calculated using CKD-EPI equation for SERVICES non Americans. Multiply eGFR by 1.16 for Americans. Specimen Blood specimen (specimen) - Blood Performing Organization Address [facility]/ZIP Code Phon e Number [facility] LABORATORY [address] [place] [address] SERVICES (ABNORMAL) BUN (12/11/2017 6:20 EDT) Pathologist Sig nature BUN 6 (L) 10 - 26 mg/dl [facility] LABORATO RY SERVICES Specimen Blood specimen (specimen) - Blood Performing Organization Address City/[facility]/ZIP Code Phon e Number [facility] LABORATORY [address] [place] [address] SERVICES ELECTROLYTES (12/11/2017 6:20 EDT) Pathologist Sig nature Sodium 140 136 - 145 mEq/L [facility] LABORA TORY SERVICES Potassium 4.8 3.5 - 5.0 mEq/L [facility] LABORA TORY SERVICES Chloride 107 96 - 110 mEq/L [facility] LABORAT ORY SERVICES CO2 28 22 - 32 mEq/L [facility] LABORATO RY SERVICES Specimen Blood specimen (specimen) - Blood Performing Organization Address City/State/ZIP Code Phon e Number [facility] LABORATORY [address] [place] [address] SERVICES EKG 12-LEAD (12/10/2017 7:51 EDT) Specimen Narrative [facility] EKG - 12/17/2017 14:1 4 EDT ? [facility] ? Test Date: ?2017-12-10 Pat Name: ? ISH ORELLANA ? Department: ?? Karthikeyan 5 ? Room: ? ME524 Gender: ? Female ? 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 [id number] : ?1990 ? Requested By: AUDREY NEAL Order Number: [id number] ? Reading MD: ?? ANIA RUBEN MD ? Measurements Intervals ?[place] ? Rate: ? 80 ? P: ?50 GA: ? 197 ?QRS: ?39 QRSD: ? 96 ? T: ?-1 QT: ? 410 ? QTc: ?475 ? Interpretive Statements SINUS RHYTHM Compared to ECG 12/09/2017 10:24:48 First degree AV block no longer present I reviewed the tracing and have either a greed or edited the findings in this report. Electronically Signed On 12-18-19 14:14:36 EDT by ANIA MIRANDA MD. 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 Electronically Signed On 12-18-19 14:14:36 EDT by ANIA MIRANDA MD. Performing Organization Address City/State/ZIP Code Phon e Number [facility] EKG (ABNORMAL) HEMAGRAM (12/10/2017 7:19 EDT) Pathologist Sig nature WBC 4.29 4.0 - 12.4 K/cmm [facility] LABORATORY SERVICES RBC 3.83 (L) 3.86 - 5.04 M/cmm [facility] LABORATORY SERVICES Hemoglobin 9.0 (L) 11.6 - 15.2 gm/dl [facility] LABORATORY SERVICES HCT 29.4 (L) 34.9 - 44.4 % [facility] LABORATORY SERVICES MCV 77 (L) 81 - 98 fl [facility] LABORATORY SERVICES MCH 23.5 (L) 26.7 - 33.3 pg [facility] LABORATORY SERVICES Hypochromia 1+ [facility]ORATORY SERVICES MCHC 30.6 (L) 32.1 - 35.9 gm/dl [facility] LABORATORY SERVICES RDW-CV 23.9 (H) <14.7 % [facility] LABORATORY SERVICES RDW-SD 63.9 (H) <50.4 fl [facility]ORATORY SERVICES Anisocytosis 2+ [facility] LABORATORY SERVICES PLT 161 141 - 377 K/cmm [facility] LABORATORY SERVICES MPV 10.4 9.5 - 12.7 fl [facility] LABORATORY SERVICES Specimen Blood specimen (specimen) - Blood Performing Organization Address City/[facility]/ZIP Code Phon e Number [facility] LABORATORY [address] [place] [address] SERVICES MAGNESIUM (12/10/2017 7:19 EDT) Pathologist Sig nature Magnesium 1.9 1.7 - 2.8 mg/dl [facility] LABORA TORY SERVICES Specimen Blood specimen (specimen) - Blood Performing Organization Address City/[facility]/ZIP Code Phon e Number [facility] LABORATORY [address] [place] [address] SERVICES CREATININE (12/10/2017 7:19 EDT) Creatinine 0.61 0.52 - 1.04 [facility] mg/dl LABORATORY SERVICES GFR, Calculated 124 >60 [facility] Comment: ml/min/1.73m2 LABORATORY eGFR calculated using CKD-EPI equation for SERVICES non Americans. Multiply eGFR by 1.16 for Americans. Specimen Blood specimen (specimen) - Blood Performing Organization Address City/State/ZIP Code Phon e Number [facility] LABORATORY [address] [place] [address] SERVICES (ABNORMAL) BUN (12/10/2017 7:19 EDT) Pathologist Sig nature BUN 8 (L) 10 - 26 mg/dl [facility] LABORATO RY SERVICES Specimen Blood specimen (specimen) - Blood Performing Organization Address City/[facility]/ZIP Code Phon e Number [facility] LABORATORY [address] [place] [address] SERVICES ELECTROLYTES (12/10/2017 7:19 EDT) Pathologist Sig nature Sodium 140 136 - 145 mEq/L [facility] LABORA TORY SERVICES Potassium 4.7 3.5 - 5.0 mEq/L [facility] LABORA TORY SERVICES Chloride 109 96 - 110 mEq/L [facility] LABORAT ORY SERVICES CO2 26 22 - 32 mEq/L [facility] LABORATO RY SERVICES Specimen Blood specimen (specimen) - Blood Performing Organization Address City/State/ZIP Code Phon e Number [facility] LABORATORY [address] [place] [address] SERVICES EKG 12-LEAD (12/09/2017 10:24 EDT) Specimen Narrative [facility] EKG - 12/09/2017 13:5 0 EDT ? [facility] ? Test Date: ?2017-12-09 Pat Name: ? ISH ORELLANA ? Department: ?? [place] 5 ? Room: ? ME524 Gender: ? Female ? 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 [id number] : ?1990 ? Requested By: AUDREY NEAL Order Number: [id number] ? Darlene INGRAM: ?? GAUDENCIO ATKINS MD ? Measurements Intervals ?[place] ? Rate: ? 89 ? P: ?32 GA: ? 201 ?QRS: ?38 QRSD: ? 96 ? T: ?7 QT: ? 397 ? QTc: ?485 ? Interpretive Statements SINUS RHYTHM First degree AV block No previous ECG available for comparison I have reviewed the tracing and have eit her agreed or edited the findings in this report. Edited by AZALIA HALL MD on 10:39:11 EDT. I reviewed the tracing and have either a greed or edited the findings in this report. Electronically Signed On 13:50:56 EDT by GAUDENCIO ATKINS MD. 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 Edited by AZALIA HALL MD on 10:39:11 EDT. I reviewed the tracing and have either a greed or edited the findings in this report. Electronically Signed On 13:50:56 EDT by GAUDENCIO ATKINS MD. Performing Organization Address City/[facility]/ZIP Code Phon e Number [facility] EKG (ABNORMAL) BACTERIAL CULTURE, BLOOD (12/09/2017 10:23 EDT) Pathologist Sig nature Result ENTEROCOCCUS FAECALIS [facility] Isolated in one bottle. First detected at: LABORATORY SERVICES 42 hours. Volume of blood collected ma y not be adequate for detection of bacteremia/septicemia. (A) Result [facility] LABORATORY SERVICES Result Results called to client and client read back re juan. [facility] TO ILA GIRARD PAGER [phone] AT [id number] 12/11/17 L ABORATORY SERVICES Specimen Blood specimen (specimen) - Blood Organism Antibiotic Method Susceptibility Enterococcus faecalis isolated in Ampicillin SUSCEPTIBILITY (SERGEI) Susceptible one bottle. first detected at: 42 hours. volume of blood collected may not be adequate for detection of bacteremia/septicemia. Enterococcus faecalis isolated in Vancomycin SUSCEPTIBILITY (SERGEI) Susceptible one bottle. first detected at: 42 hours. volume of blood collected may not be adequate for detection of bacteremia/septicemia. Enterococcus faecalis isolated in Gentamicin 500 SUSCEPTIBILITY (SERGEI) Susceptible one bottle. first detected at: 42 hours. volume of blood collected may not be adequate for detection of bacteremia/septicemia. Performing Organization Address City/[facility]/ZIP Code Phon e Number [facility] LABORATORY [address] [place] [address] SERVICES BACTERIAL CULTURE, BLOOD (12/09/2017 10:23 EDT) Pathologist Sig nature Result No growth [facility] LABORATOR Y SERVICES Specimen Blood specimen (specimen) - Blood Performing Organization Address City/[facility]/ZIP Code Phon e Number [facility] LABORATORY [address] [place] [address] SERVICES VANCOMYCIN TROUGH (12/09/2017 10:12 EDT) Pathologist [facility] Vancomycin Trough 10.9 10.0 - 20.0 [facility] MEDICAL Comment: ug/ml CENTER LABORATORY Vancomycin Trough: ??15.0-20.0 ug/mL SERV ICES [for Staphylococcus aureus bacteremia, endocarditis, meningitis, osteomyelitis, pneumonia.] Type of Draw [facility] C[facility] LABORATORY SERVICES Specimen Blood specimen (specimen) - Blood Performing Organization Address City/[facility]/ZIP Code Phon e Number [facility] LABORATORY [address] [place] [address] SERVICES HOLD BLUE TOP (12/09/2017 9:50 EDT) [facility] Hold Blue Top Sample for [facility] coagulation will be LABORATORY SERVICES discarded after 4 hours Specimen Blood specimen (specimen) - Blood Performing Organization Address City/[facility]/ZIP [facility] Phon e Number [facility] LABORATORY [address] [place] [address] SERVICES HIV 1 RNA QUANTITATION (12/09/2017 9:50 EDT) [facility] HIV 1 RNA Quant Undetected Undetected [facility] Comment: copies/mL CENTER Reference Range: ??Undetected LABORATORY The quantification range of this assay is SERVICES 20 to 10,000,000 copies/mL Testing was performed by the [employer]ip[employer]/Jannet TaqMan HIV-1 Test Version 2.0 ([employer] Specimen Blood Performing Organization Address City/[facility]/ZIP Code Phon e Number [facility] LABORATORY [address] [place] [address] SERVICES INPATIENT ADD-ON (12/09/2017 9:15 EDT) [facility] Tests to be added DIFFERENTIAL ON [facility] [place]EMAG[place] [id number] [facility] problems LABORATORY SERVICES Accession number [id number] DIFF [facility] LABORATORY SERVICES Specimen Other Performing Organization Address City/[facility]/ZIP Code Phon e Number [facility] LABORATORY [address] [place] [address] SERVICES DIFFERENTIAL (12/09/2017 7:13 EDT) [facility] Neutrophils 70.0 % [facility] LABORATORY SERVICES Bands 1.0 % [facility] LABORATORY SERVICES Lymphocytes 25.0 % [facility] LABORATORY SERVICES Monocytes 3.0 % [facility] LABORATORY SERVICES Eosinophils 1.0 % [facility] LABORATORY SERVICES ABS Neutrophils 3.11 2.20 - 8.85 [facility] LABORATORY SERVICES ABS Bands 0.04 K/[facility] LABORATORY SERVICES ABS Lymphs 1.11 1.09 - 3.30 [facility] LABORATORY SERVICES ABS Monocytes 0.13 0.1 - 0.8 [facility] LABORATORY SERVICES ABS Eosinophils 0.04 0.03 - 0.61 [facility] LABORATORY SERVICES Differential Comment NRBC seen on [facility] scanComment: CENTER LABORATORY Reviewed by Dr. DESIREE Vela Target Cells 3+ [facility] LABORATORY SERVICES Toxic Granulation Present [facility] LABORATORY SERVICES Vacuolization Present [facility] LABORATORY SERVICES Type of Diff: Manual [facility] LABORATORY SERVICES Specimen Blood Performing Organization Address City/[facility]/ZIP Code Phon e Number [facility] LABORATORY [address] [place] [address] SERVICES KINDRA DIFF COMMENT (12/09/2017 7:13 EDT) Differential Comment The RBC findings are suggest shante of iron deficiency. Correlation with clinical and other [facility] laboratory data is advised. LABORATORY SERVICES Specimen Blood Performing Organization Address City/[facility]/ZIP Code Phon e Number [facility] LABORATORY [address] [place] [address] SERVICES (ABNORMAL) HEMAGRAM (12/09/2017 7:13 EDT) WBC 4.43 4.0 - 12.4 [facility] LABORATORY SERVICES RBC 3.66 (L) 3.86 - 5.04 [facility] LABORATORY SERVICES Hemoglobin 8.7 (L) 11.6 - 15.2 [facility] gm/dl LABORATORY SERVICES HCT 27.0 (L) 34.9 - 44.4 % [facility] LABORATORY SERVICES MCV 74 (L)Comment: Rev'd 81 - 98 fl [facility] by Pathologist LABORATORY SERVICES MCH 23.8 (L) 26.7 - 33.3 pg [facility] LABORATORY SERVICES Hypochromia 1+ [facility] LABORATORY SERVICES MCHC 32.2 32.1 - 35.9 [facility] gm/dl LABORATORY SERVICES RDW-CV 23.7 (H) <14.7 % [facility] LABORATORY SERVICES RDW-SD 59.7 (H) <50.4 fl [facility] LABORATORY SERVICES Anisocytosis 2+ [facility] LABORATORY SERVICES PLT 172 141 - 377 [facility] K/cmm LABORATORY SERVICES MPV Not Available 9.5 - 12.7 fl [facility] LABORATORY SERVICES Specimen Blood specimen (specimen) - Blood Performing Organization Address City/State/ZIP Code Phon e Number [facility] LABORATORY [address] [place] [address] SERVICES MAGNESIUM (12/09/2017 7:13 EDT) Pathologist Sig nature Magnesium 1.8 1.7 - 2.8 mg/dl [facility] LABORA TORY SERVICES Specimen Blood specimen (specimen) - Blood Performing Organization Address City/[facility]/ZIP Code Phon e Number [facility] LABORATORY [address] [place] [address] SERVICES CREATININE (12/09/2017 7:13 EDT) Creatinine 0.67 0.52 - 1.04 [facility] mg/dl LABORATORY SERVICES GFR, Calculated 120 >60 [facility] Comment: ml/min/1.73m2 LABORATORY eGFR calculated using CKD-EPI equation for SERVICES non Americans. Multiply eGFR by 1.16 for Americans. Specimen Blood specimen (specimen) - Blood Performing Organization Address City/[facility]/ZIP Code Phon e Number [facility] LABORATORY [address] [place] [address] SERVICES (ABNORMAL) BUN (12/09/2017 7:13 EDT) Pathologist Sig nature BUN 7 (L) 10 - 26 mg/dl [facility] LABORATO RY SERVICES Specimen Blood specimen (specimen) - Blood Performing Organization Address City/State/ZIP Code Phon e Number [facility] LABORATORY [address] [place] [address] SERVICES (ABNORMAL) ELECTROLYTES (12/09/2017 7:13 EDT) Pathologist Sig nature Sodium 135 (L) 136 - 145 mEq/L [facility] LABORA TORY SERVICES Potassium 4.6 3.5 - 5.0 mEq/L [facility] LABORA TORY SERVICES Chloride 105 96 - 110 mEq/L [facility] LABORAT ORY SERVICES CO2 25 22 - 32 mEq/L [facility] LABORATO RY SERVICES Specimen Blood specimen (specimen) - Blood Performing Organization Address City/State/ZIP Code Phon e Number [facility] LABORATORY [address] [place] [address] SERVICES IMMUNODEFICIENCY PANEL (12/09/2017 7:13 EDT) Pathologist [facility] CD3 74 62 - 87 % [facility] LABORATORY SERVICES CD4 39 35 - 63 % [facility] LABORATORY SERVICES CD8 31 10 - 35 % [facility] LABORATORY SERVICES Absolute CD4 431 329 - 1,427 [facility] Comment: cells/uL LABORATORY The absolute CD4 count was calculated using the manual differential SERVICES Reviewed by Dr. Gil Vela Specimen Blood Performing Organization Address City/State/ZIP Code Phon e Number [facility] LABORATORY [address] [place] [address] SERVICES VANCOMYCIN TROUGH (12/08/2017 20:49 EDT) [facility] Vancomycin Trough 12.8 10.0 - 20.0 [facility] Comment: ug/ml CENTER LABORATORY Vancomycin Trough: ??15.0-20.0 ug/mL SERV ICES [for Staphylococcus aureus bacteremia, endocarditis, meningitis, osteomyelitis, pneumonia.] Type of Draw [facility] CENTER LABORATORY SERVICES Specimen Blood specimen (specimen) - Blood Performing Organization Address City/State/ZIP Code Phon e Number [facility] LABORATORY [address] [place] [address] SERVICES INPATIENT ADD-ON (12/08/2017 18:35 EDT) [facility] Tests to be added VANCOMYCIN RANDOM [facility] WITH AM LABS [place] [id number] [facility] problems LABORATORY SERVICES Accession number [id number] [facility] LABORATORY SERVICES Specimen Other Performing Organization Address City/[facility]/ZIP Code Phon e Number [facility] LABORATORY [address] [place] [address] SERVICES INPATIENT ADD-ON (12/08/2017 16:40 EDT) [facility] Tests to be added HIV VIRAL LOAD AND [facility] IMMUNODEFICIENCY PANEL CENTER LABORATORY TO YESTERDAY'S CBC [place] [id number] [facility] LABORATORY SERVICES Accession number [id number] [facility] LABORATORY SERVICES Specimen Other Performing Organization Address City/[facility]/ZIP Code Phon e Number [facility] LABORATORY [address] [place] [address] SERVICES (ABNORMAL) VANCOMYCIN, RANDOM (12/08/2017 5:58 EDT) Pathologist [facility] Vancomycin Random 49.0 (HH) ug/ml [facility] Comment: LABORATORY SERVICES Reference Range: Trough: ??10.0-20.0 Peak: ??25.0-50.0 Sample retested, result confirmed Specimen Blood Performing Organization Address [facility]/ZIP Code Phon e Number [facility] LABORATORY [address] [place] [address] SERVICES HIV 1 AND HIV 2 AB DIFFERENTIATION, S (12/08/2017 5:58 EDT) [facility] HIV 1 Ab Diff Negative Negative [facility] Comment: LABORATORY SERVICES (Note) Bands detected: None . Negative result does not rule out HIV infection. Submi t plasma specimens for HIV-1 RNA detection/quantificatio n test (HIVDQ) and/or HIV-2 DNA/RNA test (FHV2Q), based on patient's clinical and epidemiologic exposure history. HIV 2 Ab Diff Negative Negative [facility] Comment: LABORATORY SERVICES (Note) Bands detected: None . Negative result does not rule out HIV infection. Submi t plasma specimens for HIV-1 RNA detection/quantificatio n test (HIVDQ) and/or HIV-2 DNA/RNA test (FHV2Q), based on patient's clinical and epidemiologic exposure history. Performed by: [facility]: [address], [place] [address], Lab Dir: Saeid Martins II, M.D., Ph.D. Specimen Blood Performing Organization Address [facility] Phon e Number [facility] LABORATORY [address] [place] [address] SERVICES BILIRUBIN, TOTAL (12/08/2017 5:58 EDT) [facility] nature Bilirubin, Total 0.9 <1.4 mg/dl [facility] LABOR ATORY SERVICES Specimen Blood specimen (specimen) - Blood Performing Organization Address [facility]/ZIP [facility] Phon e Number [facility] LABORATORY [address] [place] [address] SERVICES (ABNORMAL) RAPID HIV 1/2 ANTIGEN AND ANTIBODY, 4TH GENERATION (12/08/2017 5:58 EDT) [facility] Rapid HIV 1/2 Ab Reactive for anti-HIV1 and/or anti-HIV2. (A) Carolyn vazquez [facility] Comment: CENTER LABORATORY Sample to be sent to [facility] for confirmatory testing. Refer to HIV 1/2 Ab Differentiation for final result and interpretation. HIV antibody should be interpreted in the context of the patient's total clinical and laboratory information. Fourth generation assay performed on the Siemens Centaur. If acute HIV-1 infection is suspected in a high risk patient, submit plasma specimen for HIV-1 RNA quantification test. Specimen Blood specimen (specimen) - Blood Performing Organization Address [facility] Phon e Number [facility] LABORATORY [address] [place] [address] SERVICES (ABNORMAL) PROTIME (12/08/2017 5:58 EDT) Pro Time 15.5 (H)Comment: NOTE 10.3 - 13.4 [facility] NEW REFERENCE RANGE secs LABORATORY SERVICE S OF OCT 07 2017 I.N.R. 1.3 (H) 0.9 - 1.1 [facility] Comment: Ratio LABORATORY SERVICES Moderate Intensity Coumadin INR = 2.0-3.0 Adjustments in anticoagulant therapy dose should be based upon the INR and NOT the Pro Time. Specimen Blood specimen (specimen) - Blood Performing Organization Address [facility] Phon e Number [facility] LABORATORY [address] [place] [address] SERVICES PHOSPHORUS (12/08/2017 5:58 EDT) Pathologist Sig nature Phosphorus 3.9 2.5 - 4.5 mg/dl [facility] LABORA TORY SERVICES Specimen Blood specimen (specimen) - Blood Performing Organization Address [facility] Phon e Number [facility] LABORATORY [address] [place] [address] SERVICES MAGNESIUM (12/08/2017 5:58 EDT) Pathologist Sig nature Magnesium 1.8 1.7 - 2.8 mg/dl [facility] LABORA TORY SERVICES Specimen Blood specimen (specimen) - Blood Performing Organization Address [facility] Phon e Number [facility] LABORATORY [address] [place] [id number] SERVICES GLUCOSE, SERUM (12/08/2017 5:58 EDT) Pathologist Sig nature Glucose, Serum 79 70 - 100 mg/dl [facility] LABORATORY SERVICES Specimen Blood specimen (specimen) - Blood Performing Organization Address [facility] Center/[facility] Phon e Number [facility] LABORATORY [address] [phone] SERVICES ELECTROLYTES (12/08/2017 5:58 EDT) Pathologist Sig nature Sodium 137 136 - 145 mEq/L [facility] LABORA TORY SERVICES Potassium 3.8 3.5 - 5.0 mEq/L [facility] LABORA TORY SERVICES Chloride 105 96 - 110 mEq/L [facility] LABORAT ORY SERVICES CO2 27 22 - 32 mEq/L [facility] LABORATO RY SERVICES Specimen Blood specimen (specimen) - Blood Performing Organization Address [facility] Phon e Number [facility] LABORATORY [address] [phone] SERVICES CREATININE (12/08/2017 5:58 EDT) Creatinine 0.67 0.52 - 1.04 [facility] mg/dl LABORATORY SERVICES GFR, Calculated 120 >60 [facility] Comment: ml/min/1.73m2 LABORATORY eGFR calculated using CKD-EPI equation for SERVICES non Americans. Multiply eGFR by 1.16 for Americans. Specimen Blood specimen (specimen) - Blood Performing Organization Address [facility]/ZIP [facility] Phon e Number [facility] LABORATORY [address] [place] [address] SERVICES (ABNORMAL) BUN (12/08/2017 5:58 EDT) Pathologist Sig nature BUN 6 (L) 10 - 26 mg/dl [facility] LABORATO RY SERVICES Specimen Blood specimen (specimen) - Blood Performing Organization Address [facility] Phon e Number [facility] LABORATORY [address] [phone] SERVICES TEST, URINE (12/07/2017 17:00 EDT) Result- Neg Neg [facility] Test, Ur Comment: LABORATORY NOTE: SERVICES False negative results may occur in women who are beyond 5-8 weeks gestation. Diagnosis of should be based on a correlation of test results with typical clinical signs and symptoms. Specimen Urine (substance) - Urine Performing Organization Address [facility]/ZIP [facility] Phon e Number [facility] LABORATORY [address] [place] [address] SERVICES PORTABLE CHEST 1 VIEW (12/07/2017 15:54 EDT) Anatomical Region Laterality Modality Other Specimen Narrative [facility] RADIOLOGY MAIN CAMPUS - 12/07/2017 16:26 EDT PORTABLE CHEST 1 VIEW ??12/07/2017 3:54 PM Clinical History/Comments: pt with severe MR and crackles on lung s /p IVF resuscitation COMPARISON: 12/06/2017. FINDINGS: Single portable AP view of the chest. Lines/tubes: ??None Soft tissues, bones and extrathoracic fi ndings: No significant abnormalities. Cardiac and mediastinal contours: Normal . Lungs: Bandlike opacities in the left lo wer lung likely reflective of atelectasis. No convincing evidence o f pulmonary edema. The lungs are underinflated. Pleura: High position of the left diaphr agm. Impression: 1. ??No convincing evidence of pulmonary edema. 2. ??Left lower lobe atelectasis. 3. ??Elevated left diaphragm. Procedure Note Luis Jain MD - 12/07/2017 PORTABLE CHEST 1 VIEW 12/07/2017 3:54 PM Clinical History/Comments: pt with severe MR and crackles on lung s /p IVF resuscitation COMPARISON: 12/06/2017. FINDINGS: Single portable AP view of the chest. Lines/tubes: None Soft tissues, bones and extrathoracic fi ndings: No significant abnormalities. Cardiac and mediastinal contours: Normal . Lungs: Bandlike opacities in the left lo wer lung likely reflective of atelectasis. No convincing evidence o f pulmonary edema. The lungs are underinflated. Pleura: High position of the left diaphr agm. Impression: 1. No convincing evidence of pulmonary e laron. 2. Left lower lobe atelectasis. 3. Elevated left diaphragm. Performing Organization Address City/[facility]/ZIP Code Phon e Number [facility] RADIOLOGY MAIN CAMPUS LACTIC ACID (12/07/2017 15:49 EDT) Pathologist Sig nature Lactic Acid 1.2 <2.0 mmol/L [facility] LABORATOR Y SERVICES Specimen Blood Performing Organization Address City/[facility]/ZIP Code Phon e Number [facility] LABORATORY [address] [place] [address] SERVICES (ABNORMAL) TROPONIN I (12/07/2017 15:49 EDT) Pathologist Sig nature Troponin I (ng/mL) 0.048 (H) <0.034 ng/ml [facility] LABORATORY SERVICES Specimen Blood specimen (specimen) - Blood Performing Organization Address [facility]/State/ZIP Code Phon e Number [facility] LABORATORY [address] [place] [address] SERVICES (ABNORMAL) PROTIME (12/07/2017 15:49 EDT) Pro Time 14.8 (H)Comment: NOTE 10.3 - 13.4 [facility] NEW REFERENCE RANGE secs LABORATORY SERVICE S OF OCT 07 2017 I.N.R. 1.3 (H) 0.9 - 1.1 [facility] Comment: Ratio LABORATORY SERVICES Moderate Intensity Coumadin INR = 2.0-3.0 Adjustments in anticoagulant therapy dose should be based upon the INR and NOT the Pro Time. Specimen Blood specimen (specimen) - Blood Performing Organization Address City/[facility]/ZIP Code Phon e Number [facility] LABORATORY [address] [place] [address] SERVICES (ABNORMAL) HEMAGRAM AND DIFFERENTIAL (12/07/2017 15:49 EDT) WBC 4.62 4.0 - 12.4 [facility] K/[facility] LABORATORY SERVICES RBC 3.76 (L) 3.86 - 5.04 [facility] LABORATORY SERVICES Hemoglobin 8.8 (L) 11.6 - 15.2 [facility] gm/dl LABORATORY SERVICES HCT 28.2 (L) 34.9 - 44.4 % [facility] LABORATORY SERVICES MCV 75 (L) 81 - 98 fl [facility] LABORATORY SERVICES MCH 23.4 (L) 26.7 - 33.3 pg [facility] LABORATORY SERVICES Hypochromia 1+ [facility] LABORATORY SERVICES MCHC 31.2 (L) 32.1 - 35.9 [facility] gm/dl LABORATORY SERVICES RDW-CV 23.1 (H) <14.7 % [facility] LABORATORY SERVICES RDW-SD 61.1 (H) <50.4 fl [facility] LABORATORY SERVICES Anisocytosis 2+ [facility] LABORATORY SERVICES PLT 145 141 - 377 K/[facility] LABORATORY SERVICES MPV Not Available 9.5 - 12.7 fl [facility] LABORATORY SERVICES Neutrophils 68.0 % [facility] LABORATORY SERVICES Lymphocytes 30.0 % [facility] LABORATORY SERVICES Monocytes 1.0 % [facility] LABORATORY SERVICES Eosinophils 1.0 % [facility] LABORATORY SERVICES ABS Neutrophils 3.13 2.20 - 8.85 [facility] K/c[facility] LABORATORY SERVICES ABS Lymphs 1.39 1.09 - 3.30 [facility] K/[facility] LABORATORY SERVICES ABS Monocytes 0.05 (L) 0.1 - 0.8 K/m [facility] LABORATORY SERVICES ABS Eosinophils 0.05 0.03 - 0.61 [facility] K/[facility] LABORATORY SERVICES Vacuolization Present [facility] LABORATORY SERVICES Large Platelets Present [facility] LABORATORY SERVICES Type of Diff: Manual [facility] LABORATORY SERVICES Specimen Blood specimen (specimen) - Blood Performing Organization Address [facility]/ZIP Code Phon e Number [facility] LABORATORY [address] [place] [address] SERVICES PROTEIN, TOTAL (12/07/2017 15:49 EDT) Pathologist Sig nature Total Protein 6.3 6.3 - 8.2 g/dl [facility] LABORATORY SERVICES Specimen Blood specimen (specimen) - Blood Performing Organization Address [facility]/ZIP Code Phon e Number [facility] LABORATORY [address] [place] [address] SERVICES (ABNORMAL) BILIRUBIN, TOTAL (12/07/2017 15:49 EDT) Pathologist Sig nature Bilirubin, Total 1.7 (H) <1.4 mg/dl [facility] LABORATORY SERVICES Specimen Blood specimen (specimen) - Blood Performing Organization Address [facility]/ZIP [facility] Phon e Number [facility] LABORATORY [address] [place] [address] SERVICES BILIRUBIN DIRECT/INDIRECT (12/07/2017 15:49 EDT) Pathologist Sig nature Conjugated Bilirubin 0.0 0.0 - 0.3 mg/dl [facility] SERVICES Unconjugated Bilirubin 1.1 0.0 - 1.1 mg/dl [facility] TER LABORATORY SERVICES Specimen Blood specimen (specimen) - Blood Performing Organization Address City/[facility]/ZIP Code Phon e Number [facility] LABORATORY [address] [place] [address] SERVICES AST (12/07/2017 15:49 EDT) Pathologist Sig nature AST 40 15 - 46 U/L [facility] LABORATOR Y SERVICES Specimen Blood specimen (specimen) - Blood Performing Organization Address City/[facility]/ZIP Code Phon e Number [facility] LABORATORY [address] [place] [address] SERVICES ALT (12/07/2017 15:49 EDT) Pathologist Sig nature ALT 25 <53 U/L [facility] LABORATOR Y SERVICES Specimen Blood specimen (specimen) - Blood Performing Organization Address City/[facility]/ZIP Code Phon e Number [facility] LABORATORY [address] [place] [address] SERVICES (ABNORMAL) ALBUMIN (12/07/2017 15:49 EDT) Pathologist Sig nature Albumin 2.3 (L) 3.4 - 4.9 g/dl [facility] LABORAT ORY SERVICES Specimen Blood specimen (specimen) - Blood Performing Organization Address City/[facility]/ZIP Code Phon e Number [facility] LABORATORY [address] [place] [address] SERVICES CREATININE (12/07/2017 15:49 EDT) Creatinine 0.65 0.52 - 1.04 [facility] mg/dl LABORATORY SERVICES GFR, Calculated 121 >60 [facility] Comment: ml/min/1.73m2 LABORATORY eGFR calculated using CKD-EPI equation for SERVICES non Americans. Multiply eGFR by 1.16 for Americans. Specimen Blood specimen (specimen) - Blood Performing Organization Address City/[facility]/ZIP Code Phon e Number [facility] LABORATORY [address] [place] [address] SERVICES (ABNORMAL) BUN (12/07/2017 15:49 EDT) Pathologist Sig nature BUN 6 (L) 10 - 26 mg/dl [facility] LABORATO RY SERVICES Specimen Blood specimen (specimen) - Blood Performing Organization Address City/State/ZIP Code Phon e Number [facility] LABORATORY [address] [place] [address] SERVICES SCREENING GLUCOSE (12/07/2017 15:49 EDT) Pathologist Sig nature Glucose, Screening 77 70 - 100 mg/dl [facility] LABORATORY SERVICES Specimen Blood specimen (specimen) - Blood Performing Organization Address City/[facility]/ZIP Code Phon e Number [facility] LABORATORY [address] [place] [address] SERVICES PHOSPHORUS (12/07/2017 15:49 EDT) Pathologist Sig nature Phosphorus 3.6 2.5 - 4.5 mg/dl [facility] LABORA TORY SERVICES Specimen Blood specimen (specimen) - Blood Performing Organization Address City/[facility]/ZIP Code Phon e Number [facility] LABORATORY [address] [place] [address] SERVICES MAGNESIUM (12/07/2017 15:49 EDT) Pathologist Sig nature Magnesium 1.9 1.7 - 2.8 mg/dl [facility] LABORA TORY SERVICES Specimen Blood specimen (specimen) - Blood Performing Organization Address [facility]/ZIP Code Phon e Number [facility] LABORATORY [address] [place] [address] SERVICES ELECTROLYTES (12/07/2017 15:49 EDT) Pathologist Sig nature Sodium 138 136 - 145 mEq/L [facility] LABORA TORY SERVICES Potassium 3.7 3.5 - 5.0 [facility]Eq/L [facility] Chloride 105 96 - 110 mEq/L [facility] LABORAT ORY SERVICES CO2 27 22 - 32 mEq/L [facility] LABORATO RY SERVICES Specimen Blood specimen (specimen) - Blood Performing Organization Address [facility] Phon e Number [facility] LABORATORY [address] [place] [address] SERVICES (ABNORMAL) CALCIUM (12/07/2017 15:49 EDT) Pathologist Sig nature Calcium 7.9 (L) 8.5 - 10.5 mg/dl [facility] LABORATORY SERVICES Calculated Calcium 9.3 8.5 - 10.5 mg/dl [facility] LABORATORY SERVICES Specimen Blood specimen (specimen) - Blood Performing Organization Address [facility]/ZIP Code Phon e Number [facility] LABORATORY [address] [place] [address] SERVICES TYPE AND SCREEN (12/07/2017 15:44 EDT) ABO O [facility] BLOOD BANK Rh Factor Positive [facility] BLOOD BANK Antibody Screen Negative [facility] BLOOD BANK Specimen Expires: 12/10/2017 @ 23:59 [facility] Specimen Blood specimen (specimen) Performing Organization Address City/[facility]/ZIP Code Phon e Number [facility] BLOOD BANK [address] [facility] [place], [place] [id number] [place] [address] BLOOD BANK MRSA PCR (12/07/2017 15:30 EDT) Pathologist Sig nature Result No Staphylococcus aureus [facility] ER detected by PCR. LABORATORY SERVICES Specimen Other (qualifier value) - Nasal Performing Organization Address City/State/ZIP Code Phon e Number [facility] LABORATORY [address] [place] [address] SERVICES GLUCOSE, GLUCOMETER (12/07/2017 15:25 EDT) Glucose, 80 70 - 100 [facility] Fingerstick mg/dl LABORATORY SERVICES [place] T[place] [id number]: [facility] Test Performed by LABORATORY Nursing Services SERVICES Specimen Blood Performing Organization Address City/State/ZIP Code Phon e Number [facility] LABORATORY [address] [place] [address] SERVICES documented in this encounter Visit Diagnoses Diagnosis Subacute bacterial endocarditis - Primar y Acute and subacute bacterial endocarditi s Acute infective endocarditis, due to uns pecified organism Non-rheumatic mitral regurgitation Mitral valve disorders Gram-positive bacteremia Bacteremia Rash Rash and other nonspecific skin eruption Chronic hepatitis C without hepatic coma (HCC-CMS) ([facility]) Chronic hepatitis C without mention of h epatic coma Bacteremia due to Enterococcus Bacteremia HIV (human immunodeficiency virus infect ion) ([facility]) Asymptomatic human immunodeficiency viru s (HIV) infection status Anemia, unspecified type Acute bacterial endocarditis Acute and subacute bacterial endocarditi s Adjustment disorder with mixed anxiety a nd depressed mood Acute post-operative pain Chronic, continuous use of opioids Opioid type dependence, continuous Enterococcus faecalis infection Streptococcus infection in conditions cl assified elsewhere and of unspecified site, group D History of 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, mixed, or unspecified nondependen t drug abuse, in remission S/P MVR (mitral valve replacement) Heart valve replaced by other means Hemolytic anemia ([facility]) Acquired hemolytic anemia, unspecified Viral hepatitis C Unspecified viral hepatitis C without he patic coma documented in this encounter Administered Medications Inactive Administered Medications - up to 3 most recent administrations Medication Order MAR Action Action Date Dose Rate Site acetaminophen (TYLENOL) tablet Given 12/19/2017 14:41 EDT 1,000 mg 1,000 mg 1,000 mg, oral, EVERY 8 HOURS PRN, Starting on Negin 12/09/17 at 1807, Until 12/20/17 at 1527, Fever, Routine Given 12/19/2017 6:16 EDT 1,000 mg Given 12/18/2017 20:17 EDT 1,000 mg acetaminophen (TYLENOL) tablet 1,000 mg Given 12/30/2017 14:20 EDT 1,000 mg 1,000 mg, oral, EVERY 6 HOURS, First dose on Wed12/20/17 at 1545, Until Discontinued, Routine Given 12/30/2017 9:58 EDT 1,000 mg Given 12/30/2017 2:08 EDT 1,000 mg alteplase (CATHFLO ACTIVASE) injection 2 mg Given 12/29/2017 10:15 EDT 2 mg 2 mg, intercatheter, PRN, Starting on Wed12/09/17 at 1452, Until Wed12/30/17 at 1759, Line Care, Routine Given 12/28/2017 9:19 EDT 2 mg Given 12/13/2017 23:00 EDT 2 mg Other ampicillin (OMNIPEN) 2 g in sodium chloride (NS Given 12/27/2017 9:04 EDT 2 g MBP) 100 mL infusion 2 g (2,000 mg), intravenous, EVERY 4 HOURS, 113 doses, First dose on Wed12/09/17 at 1800, Last dose on Wed12/28/17 at 1600, Routine Given 12/27/2017 3:21 EDT 2 g Given 12/26/2017 20:36 EDT 2 g ascorbic acid (vitamin C) (VITAMIN C) tablet Given 8 9:27 EDT 1,000 mg 1,000 mg 1,000 mg, oral, DAILY, First dose (after last modification) on Wed12/26/17 at 0900, Until Discontinued, Routine Given 12/28/2017 8:00 EDT 1,000 mg Given 12/27/2017 9:02 EDT 1,000 mg ascorbic acid (vitamin C) (VITAMIN C) tablet 250 Given 12/25/2017 9:10 EDT 250 mg mg 250 mg, oral, DAILY, First dose on Wed12/25/17 at 0900, Until Discontinued, Routine ascorbic acid (vitamin C) (VITAMIN C) tablet 500 Given 12/30/2017 9:58 EDT 500 mg mg 500 mg, oral, DAILY, First dose (after last modification) on Wed12/30/17 at 0900, Until Discontinued, Routine aspirin EC tablet 81 mg Given 12/30/2017 9:58 EDT 81 mg 81 mg, oral, DAILY, First dose on Wed12/21/17 at 1645, Until Discontinued, Routine Given 12/29/2017 9:26 EDT 81 mg Given 12/28/2017 8:00 EDT 81 mg bisacodyl (DULCOLAX) suppository 10 mg Given 12/12/2017 8:36 EDT 10 mg 10 mg, rectal, DAILY, First dose on Wed12/07/17 at 1545, Until Discontinued, Routine calcium gluconate 100 mg/mL (10%) injection Given 12/20/2017 22:17 EDT 1,000 mg 1,000 mg 1,000 mg (1 g), intravenous, NOW X1, 1 dose, On Wed12/20/17 at 2215, STAT calcium gluconate 100 mg/mL (10%) injection Given 12/21/2017 3:1 6 EDT 1,000 mg 1,000 mg 1,000 mg (1 g), intravenous, NOW X1, 1 dose, On Wed12/21/17 at 0330, Routine calcium gluconate 100 mg/mL (10%) injection Given 12/20/2017 22:32 EDT 2,000 mg 2,000 mg 2,000 mg (2 g), intravenous, NOW X1, 1 dose, On Wed12/20/17 at 2245, Routine calcium gluconate 100 mg/mL (10%) inject ion 1 dose, Starting on Wed12/20/17 at 2219, Until 12/05 at 2232 calcium gluconate 2,000 mg in dextrose 5% Given 12/29/2017 14:37 EDT 2,000 mg (D5W) 50 mL IVPB 2,000 mg (2 g), intravenous, Administer over 60 Minutes, NOW X1, 1 dose, On Wed12/29/17 at 1315, STAT ceFAZolin (ANCEF) 1,000 mg in sodium chloride Given 0:06 EDT 1,000 mg (NS MBP) 50 mL IVPB 1,000 mg, intravenous, Administer over 30 Minutes, EVERY 8 HOURS, 2 doses, First dose on Wed12/20/17 at 1600, Last dose on Wed12/21/17 at 0000, Routine, On Unit Given 12/20/2017 16:18 EDT 1,000 mg ceFAZolin (ANCEF) syringe 2 g Given by Other 12/20/2017 9:15 EDT 2 g 2 g, intravenous, Administer over 10 Minutes, PRE-OP ONCE, 1 dose, On Wed12/20/17 at 0715, Routine, Pre-Op DOS Rx Approved cefePIME (MAXIPIME) 2,000 mg in sodium Given 12/08/2017 16:55 ED T 2,000 mg chloride (NS MBP) 50 mL IVPB 2,000 mg, intravenous, Administer over 30 Minutes, EVERY 8 HOURS, 21 doses, First dose on Wed12/07/17 at 1715, Last dose on Wed12/14/17 at 0800, Controlled antibiotic, has ID approved? Yes, Routine Given 12/08/2017 7:59 EDT 2,000 mg Given 12/07/2017 23:43 EDT 2,000 mg chlorhexidine gluconate 2 % cloth 1 Each Given 12/19/2017 8:52 EDT 1 Each 1 Each, topical, DAILY, 5 doses, First dose on Wed12/17/17 at 1030, Last dose on Wed12/21/17 at 0900, Routine, Release Given 12/18/2017 15:17 EDT 1 Each Given 12/17/2017 14:44 EDT 1 Each dexmedetomidine in 0.9 % Rate Documented 12/21/2017 2:00 EDT 0.2 mc g/kg/hr 5 mL/hr NaCl (PRECEDEX) 400 mcg/100 mL infusion 0.2-1.4 mcg/kg/hr ? 99.8 kg (4.99-34.93 mL/hr, rounded to 5-34.9 mL/hr), intravenous, CONTINUOUS, Starting on Wed12/20/17 at 1545, Until Wed12/21/17 at 1026, Routine Rate Documented 12/21/2017 1:00 EDT 0.2 mcg/kg/hr 5 mL/hr Rate Change-ICU/L&D Only 12/21/2017 0:06 EDT 0.2 mcg/kg/hr 5 mL/hr dextrose 50 % solution 12.5 g 12.5 g (25 mL), intravenous, PRN, Starting on Sat 12/25 at 0042, Until Negin 12/30/17 at 1759, Low Blood Sugar, Routine dextrose 50 % solution 25 g Given 12/20/2017 22:06 EDT 25 g 25 g, intravenous, NOW X1, 1 dose, On Wed12/20/17 at 2215, STAT dextrose 50 % solution 25 g Given 12/21/2017 3:16 EDT 25 g 25 g, intravenous, NOW X1, 1 dose, On Wed12/21/17 at 0330, STAT dextrose 50 % solution 25 g Given 12/29/2017 13:09 EDT 25 g 25 g, intravenous, NOW X1, 1 dose, On Wed12/29/17 at 1315, STAT diphenhydrAMINE-zinc acetate 2-0.1 % cre am Given 12/14/2017 21:45 EDT topical, 3 TIMES DAILY PRN, Starting on Wed12/08/17 at 2010, Until Wed12/20/17 at 1527, Itching Given 12/12/2017 21:30 EDT Right A rm Given 12/08/2017 20:55 EDT docusate sodium (COLACE) capsule 100 mg Given 12/19/2017 8:00 EDT 100 mg 100 mg, oral, 2 TIMES DAILY, First dose on Wed12/07/17 at 2100, Until Discontinued, Routine Given 12/18/2017 20:18 EDT 100 mg Given 12/18/2017 8:20 EDT 100 mg docusate sodium (COLACE) capsule 200 mg Given 12/29/2017 9:26 EDT 200 mg 200 mg, oral, 2 TIMES DAILY, First dose (after last modification) on Wed12/24/17 at 2100, Until Discontinued, Routine Given 12/25/2017 9:10 EDT 200 mg Given 12/24/2017 21:29 EDT 200 mg electrolyte-A (PLASMALYTE-A) bolus 500 m L Given 12/20/2017 15:55 EDT 500 mL 500 mL, intravenous, NOW X1, 1 dose, On Wed12/20/17 at 1615 electrolyte-A (PLASMALYTE-A) bolus 500 m L Given 12/20/2017 20:32 EDT 500 mL 500 mL, intravenous, NOW X1, 1 dose, On Wed12/20/17 at 2045 electrolyte-A (PLASMALYTE-A) bolus 500 m L Given 12/21/2017 2:56 EDT 500 mL 500 mL, intravenous, NOW X1, 1 dose, On Wed12/21/17 at 0300 ferrous sulfate EC tablet 324 mg Given 12/30/2017 9:58 EDT 324 mg 324 mg, oral, DAILY WITH BREAKFAST, First dose on Wed12/24/17 at 0830, Until Discontinued, Routine Given 12/29/2017 9:26 EDT 324 mg Given 12/28/2017 7:57 EDT 324 mg fluconazole (DIFLUCAN) tablet 150 mg Given 12/12/2017 20:54 EDT 150 mg 150 mg, oral, Once (NO Time Specified), 1 dose, Starting on Wed12/12/17 at 1951, Until Wed12/12/17 at 2053, Routine furosemide (LASIX) injection 20 mg Given 12/29/2017 13:31 EDT 20 mg 20 mg, intravenous, NOW X1, 1 dose, On Wed12/29/17 at 1400, Routine furosemide (LASIX) tablet 20 mg Given 12/30/2017 9:58 EDT 20 mg 20 mg, oral, 2 TIMES DAILY WITH BREAKFAST & DINNER, First dose on Wed12/21/17 at 1030, Until Discontinued, Routine Given 12/29/2017 17:50 EDT 20 mg Given 12/29/2017 9:26 EDT 20 mg gabapentin (NEURONTIN) capsule 300 mg Given 12/25/2017 7:48 EDT 300 mg 300 mg, oral, EVERY 8 HOURS, 15 doses, First dose on Wed12/20/17 at 1600, Last dose on Wed12/25/17 at 0800, Routine Given 12/24/2017 23:25 EDT 300 mg Given 12/24/2017 15:22 EDT 300 mg gabapentin (NEURONTIN) capsule 300 mg Given 12/30/2017 9:00 EDT 300 mg 300 mg, oral, EVERY 8 HOURS, 15 doses, First dose (after last reorder) on Wed12/26/17 at 0800, Last dose on Wed12/31/17 at 0000, Routine Given 12/30/2017 2:09 EDT 300 mg Given 12/29/2017 15:43 EDT 300 mg gabapentin (NEURONTIN) solution 300 mg Given 12/20/2017 16:17 EDT 300 mg 300 mg, oral, EVERY 8 HOURS, 15 doses, First dose on Wed12/20/17 at 1600, Last dose on Wed12/25/17 at 0800, Routine gentamicin (GARAMYCIN) 35 mg in sodium chloride Given 12/13/2017 13:05 EDT 35 mg (NS) 0.9 % 50 mL IVPB 35 mg, intravenous, Administer over 30 Minutes, EVERY 8 HOURS, 21 doses, First dose on Wed12/12/17 at 2100, Last dose on Wed12/19/17 at 1330, Routine Given 12/13/2017 5:28 EDT 35 mg Given 12/12/2017 20:59 EDT 35 mg gentamicin (GARAMYCIN) 45 mg in sodium chloride Given 12/24/2017 23:20 EDT 45 mg (NS) 0.9 % 50 mL IVPB 45 mg, intravenous, Administer over 30 Minutes, EVERY 12 HOURS, 25 doses, First dose (after last modification) on Wed12/17/17 at 2100, Last dose on Wed12/29/17 at 2100, Routine Given 12/24/2017 8:02 EDT 45 mg Given 12/23/2017 21:09 EDT 45 mg gentamicin (GARAMYCIN) 45 mg in sodium chloride Given 12/27/2017 13:10 EDT 45 mg (NS) 0.9 % 50 mL IVPB 45 mg, intravenous, Administer over 30 Minutes, EVERY 12 HOURS, 10 doses, First dose (after last modification) on Wed12/25/17 at 1200, Last dose on Wed12/29/17 at 2200, Routine Given 12/27/2017 0:20 EDT 45 mg Given 12/26/2017 11:28 EDT 45 mg gentamicin (GARAMYCIN) 45 mg in sodium chloride Given 2017 9:58 EDT 45 mg (NS) 0.9 % 50 mL IVPB 45 mg, intravenous, Administer over 30 Minutes, EVERY 12 HOURS, 7 doses, First dose (after last modification) on Wed12/29/17 at 2000, Last dose on Wed01/01/18 at 2000, Routine Given 12/29/2017 20:32 EDT 45 mg gentamicin (GARAMYCIN) 50 mg in sodium chloride Given 12/29/2017 11:06 EDT 50 mg (NS) 0.9 % 50 mL IVPB 50 mg, intravenous, Administer over 30 Minutes, EVERY 12 HOURS, 5 doses, First dose (after last modification) on Wed12/27/17 at 2200, Last dose on Wed12/29/17 at 2000, Routine Given 12/28/2017 22:33 EDT 50 mg Given 12/28/2017 10:24 EDT 50 mg gentamicin (GARAMYCIN) IVPB 60 mg Given 12/17/2017 9:18 EDT 60 mg 60 mg, intravenous, Administer over 30 Minutes, EVERY 12 HOURS, 14 doses, First dose (after last modification) on Wed12/13/17 at 2100, Last dose on Wed12/20/17 at 1000, Routine Given 12/16/2017 22:15 EDT 60 mg Given 12/16/2017 10:00 EDT 60 mg gentamicin (GARAMYCIN) IVPB 80 mg Given 12/12/2017 13:00 EDT 80 mg 80 mg, intravenous, Administer over 30 Minutes, EVERY 8 HOURS, 21 doses, First dose on 12/11/17 at 1200, Last dose on 12/18/17 at 0430, STAT Given 12/12/2017 4:39 EDT 80 mg Given 12/11/2017 19:50 EDT 80 mg glucagon injection 1 mg 1 mg, intramuscular, PRN, Starting on 12/25/17 at 0 042, Until Negin 12/30/17 at 1759, Low blood sugar, Routine heparin injection 5,000 Units Given 12/30/2017 10:00 EDT 5,000 Units 5,000 Units, subcutaneous, EVERY 12 HOURS, First dose on Wed12/22/17 at 2100, Until Discontinued, Routine Given 12/29/2017 21:28 EDT 5,000 Units Given 12/29/2017 9:27 EDT 5,000 Units HYDROmorphone (DILAUDID) tablet 2 mg Given 12/21/2017 6:25 EDT 2 mg 2 mg, oral, EVERY 4 HOURS PRN, Starting on Wed12/20/17 at 1527, Until Negin 12/23/17 at 0602, Pain, Routine Given 12/20/2017 20:49 EDT 2 mg HYDROmorphone (DILAUDID) tablet 2-4 mg Given 12/23/2017 4:35 EDT 4 mg 2-4 mg, oral, EVERY 4 HOURS PRN, Starting on Wed12/20/17 at 1527, Until Negin 12/23/17 at 0602, Pain, Routine Given 12/22/2017 23:23 EDT 4 mg Given 12/22/2017 18:57 EDT 4 mg HYDROmorphone 1 mg/ml (DILAUDID) [employer] Rate Documented 12/21/2017 8:00 EDT syringe, 30 ml intravenous, [employer], Starting on Wed12/20/17 at 1845, Until Wed12/21/17 at 1026, See PRN bolus orders for breakthrough pain. CLICK to see order details, STAT, [employer] Dose (mg): 0.2, Lockout Interval (minutes): 10, Maximum Limit (mg/hr): 1.2 New Bag 12/20/2017 18:55 EDT HYDROmorphone 1 mg/ml (DILAUDID) [employer] syr lila, 30 ml New Bag 12/23/2017 4:14 EDT intravenous, [employer], Starting on Wed12/21/17 at 1045, Until Wed12/23/17 at 0602, See PRN bolus orders for breakthrough pain. CLICK to see order details, STAT, [employer] Dose (mg): 0.2, Lockout Interval (minutes): 6, Maximum Limit (mg/hr): 2 Rate Documented 12/22/2017 22:13 EDT New Bag 12/21/2017 23:47 EDT insulin aspart U-100 (NOVOLOG FLEXPEN) i njection subcutaneous, 3 TIMES DAILY WITH MEALS, First dose on 12/25/17 at 0800, Until Discontinued, Routine insulin regular (HUMULIN R,NOVOLIN R) Given 12/20/2017 22:06 EDT 10 Units injection 10 Units 10 Units, intravenous, NOW X1, 1 dose, On Wed12/20/17 at 2215 insulin regular (HUMULIN R,NOVOLIN R) Given 12/21/2017 3:16 EDT 10 Units injection 10 Units 10 Units, intravenous, NOW X1, 1 dose, On Wed12/21/17 at 0330 insulin regular (HUMULIN R,NOVOLIN R) Given 12/29/2017 13:09 EDT 10 Units injection 10 Units 10 Units, intravenous, NOW X1, 1 dose, On Wed12/29/17 at 1315 ipratropium-albuterol (DUONEB) 0.5 mg-3 mg(2.5 mg base)/3 mL nebulizer solution 3 mL 3 mL, nebulization, EVERY 6 HOURS PRN, S tarting on Wed12/23/17 at 1235, Until Wed12/30/17 at 1759, Wheezing, Routine ketAMINE (KETALAR) 500mg in Rate Documented 12/25/2017 23:11 EDT 10 mg/hr 1 mL/hr NaCl 0.9% 50ml syringe 10 mg/hr (1 mL/hr), intravenous, CONTINUOUS, Starting on 12/20/17 at 1545, Until 12/25/17 at 2359, STAT Rate Documented 12/25/2017 21:37 EDT 10 mg/hr 1 mL/hr Rate Documented 12/25/2017 19:30 EDT 10 mg/hr 1 mL/hr lactated ringers (LR) infusion New Bag 12/20/2017 7:05 EDT 30 mL/hr 30 mL/hr at 30 mL/hr, 30 mL/hr, intravenous, CONTINUOUS, Starting on Wed12/20/17 at 0715, Until Wed12/20/17 at 1527, Routine, Pre-Op DOS Rx Approved lidocaine-prilocaine (EMLA) 2.5-2.5 % cr eam Given 12/14/2017 18:06 EDT topical, Once (NO Time Specified), 1 dose, Starting on Wed12/14/17 at 1749, Until Wed12/14/17 at 1806 LORazepam (ATIVAN) tablet 1 mg Given 12/07/2017 22:15 EDT 1 mg 1 mg, oral, NOW X1, 1 dose, On Wed12/07/17 at 2130, Routine LORazepam (ATIVAN) tablet 1 mg Given 12/08/2017 20:54 EDT 1 mg 1 mg, oral, AT BEDTIME PRN, 1 dose, Starting on Wed12/08/17 at 1808, Until Wed12/08/17 at 2054, Anxiety, Routine LORazepam (ATIVAN) tablet 1 mg Given 12/15/2017 21:40 EDT 1 mg 1 mg, oral, AT BEDTIME PRN, Starting on Wed12/10/17 at 2212, Until Wed12/16/17 at 0816, Anxiety, Routine Given 12/14/2017 18:12 EDT 1 mg Given 12/14/2017 2:42 EDT 1 mg LORazepam (ATIVAN) tablet 1 mg Given 12/14/2017 22:21 EDT 1 mg 1 mg, oral, ONCE PRN, 1 dose, Starting on Wed12/14/17 at 1931, Until Wed12/14/17 at 2221, Anxiety, Other, Agitation, Routine LORazepam (ATIVAN) tablet 1 mg Given 12/20/2017 5:34 EDT 1 mg 1 mg, oral, 2 TIMES DAILY PRN, Starting on Negin 12/16/17 at 0830, Until Wed12/20/17 at 1527, Anxiety, Routine Given 12/19/2017 6:16 EDT 1 mg Given 12/19/2017 1:55 EDT 1 mg LORazepam (ATIVAN) tablet 1 mg Given 12/17/2017 20:15 EDT 1 mg 1 mg, oral, ONCE PRN, 1 dose, Starting on Wed12/17/17 at 1643, Until Wed12/17/17 at 2015, Anxiety, Routine LORazepam (ATIVAN) tablet 1 mg Given 12/18/2017 20:17 EDT 1 mg 1 mg, oral, ONCE PRN, 1 dose, Starting on 12/18/17 at 1956, Until 12/18/17 at 2017, Anxiety, Routine LORazepam (ATIVAN) tablet 1 mg Given 12/19/2017 20:20 EDT 1 mg 1 mg, oral, ONCE PRN, 1 dose, Starting on 12/19/17 at 1957, Until 12/19/17 at 2020, Anxiety, Routine magnesium sulfate 2 g in water 50 mL Given 12/20/2017 15:42 EDT 2 g 2 g, intravenous, Administer over 30 Minutes, NOW X1, 1 dose, On Wed12/20/17 at 1545, Routine, On Unit methadone (DOLOPHINE) concentrated solution 95 Given 018 10:51 EDT 95 mg mg 95 mg, oral, DAILY, First dose on Wed12/08/17 at 0900, Until Discontinued, Routine methadone (DOLOPHINE) concentrated solut ion 95 mg Given 12/19/2017 7:43 EDT 95 mg 95 mg, oral, DAILY, First dose (after last modification) on Negin 12/09/17 at 0730, Until Discontinued, Routine Given 12/18/2017 8:21 EDT 95 mg Given 12/17/2017 7:49 EDT 95 mg methadone (DOLOPHINE) concentrated solut ion 95 mg Given 12/20/2017 5:54 EDT 95 mg 95 mg, oral, DAILY, First dose (after last modification) on Wed12/20/17 at 0600, Until Discontinued, Routine methadone (DOLOPHINE) concentrated solut ion 95 mg Given 12/30/2017 5:39 EDT 95 mg 95 mg, oral, DAILY, First dose (after last modification) on Wed12/21/17 at 0900, Until Discontinued, Routine Given 12/29/2017 5:45 EDT 95 mg Given 12/28/2017 5:27 EDT 95 mg methocarbamol (ROBAXIN) tablet 750 mg Given 12/20/2017 5:34 EDT 750 mg 750 mg, oral, 4 TIMES DAILY, First dose on Wed12/17/17 at 2100, Until Discontinued, Routine Given 12/19/2017 20:20 EDT 750 mg Given 12/19/2017 18:12 EDT 750 mg methocarbamol (ROBAXIN) tablet 750 mg Given 12/19/2017 15:18 EDT 750 mg 750 mg, oral, NOW X1, 1 dose, On Wed12/19/17 at 1500, Routine metoprolol (LOPRESSOR) tablet 25 mg Given 12/22/2017 8:00 EDT 25 mg 25 mg, oral, 2 TIMES DAILY, First dose on Wed12/21/17 at 1030, Until Discontinued, Routine Given 12/21/2017 21:27 EDT 25 mg Given 12/21/2017 11:17 EDT 25 mg metoprolol (LOPRESSOR) tablet 50 mg Given 12/30/2017 9:58 EDT 50 mg 50 mg, oral, 2 TIMES DAILY, First dose (after last modification) on Wed12/22/17 at 2100, Until Discontinued, Routine Given 12/29/2017 21:29 EDT 50 mg Given 12/29/2017 9:27 EDT 50 mg morphine (MS IR) tablet 30 mg Given 12/30/2017 14:20 EDT 30 mg 30 mg, oral, EVERY 3 HOURS PRN, Starting on Negin 12/23/17 at 0603, Until Negin 12/30/17 at 1759, Pain, Routine Given 12/30/2017 11:21 EDT 30 mg Given 12/30/2017 8:10 EDT 30 mg morphine 2 mg/ml (DURAMORPH) Alaris PRN, 30 ml Given 12/26/2017 13:40 EDT 1 mg 1 mg, intravenous, EVERY 1 HOUR PRN, Starting on Negin 12/23/17 at 2147, Until Wed12/27/17 at 0812, Pain, Routine Given 12/26/2017 4:08 EDT 1 mg Given 12/25/2017 19:39 EDT 1 mg morphine 2 mg/ml (DURAMORPH) [employer], 30 ml Rate Documented 12/26/2017 16 :07 EDT syringe intravenous, [employer], Starting on Negin 12/23/17 at 2215, Until 12/27/17 at 0812, See PRN bolus orders for breakthrough pain. CLICK to see order details, Routine, [employer] Dose (mg): 1, Lockout Interval (minutes): 10, Maximum Limit (mg/hr): 6 New Bag 12/26/2017 13:34 EDT Rate Documented 12/26/2017 7:19 EDT morphine injection 1-4 mg Given 12/23/2017 5:44 EDT 4 mg 1-4 mg, intravenous, EVERY 1 HOUR PRN, Starting on 12/20/17 at 1527, Until Negin 12/23/17 at 0603, Pain, Routine Given 12/23/2017 4:14 EDT 4 mg Given 12/23/2017 2:33 EDT 4 mg morphine injection 2-6 mg Given 12/23/2017 21:14 EDT 6 mg 2-6 mg, intravenous, EVERY 1 HOUR PRN, Starting on Negin 12/23/17 at 0602, Until Negin 12/23/17 at 2147, Pain, Routine Given 12/23/2017 19:03 EDT 6 mg Given 12/23/2017 17:44 EDT 6 mg Multivitamins with Minerals tablet 1 Tab Given 12/30/2017 9:58 EDT 1 Tablet 1 Tablet, oral, DAILY, First dose on 12/25/17 at 0900, Until Discontinued, Routine Given 12/29/2017 9:27 EDT 1 Tablet Given 12/28/2017 8:01 EDT 1 Tablet mupirocin (BACTROBAN) 2 % ointment 1 g Given 12/19/2017 20:36 EDT 1 g 1 g, nasal, 2 TIMES DAILY, 10 doses, First dose on Wed12/17/17 at 1030, Last dose on Wed12/21/17 at 2100, Release Given 12/17/2017 14:44 EDT 1 g ondansetron (PF) (ZOFRAN) injection 4 mg Given 12/29/2017 7:07 EDT 4 mg 4 mg, intravenous, EVERY 6 HOURS PRN, Starting on Wed12/20/17 at 1527, Until Negin 12/30/17 at 1759, Nausea, Routine Given 12/25/2017 19:37 EDT 4 mg ondansetron (ZOFRAN-ODT) disintegrating tablet 4 Given 12/15 7:04 EDT 4 mg mg 4 mg, oral, EVERY 4 HOURS PRN, Starting on Wed12/13/17 at 1208, Until Wed12/20/17 at 1527, Nausea, Routine Given 12/14/2017 15:01 EDT 4 mg Given 12/14/2017 10:43 EDT 4 mg penicillin G potassium 4 Million Units Given 8 11:00 EDT 4 Million Units in sodium chloride (NS) 0.9 % 250 mL custom IVPB 4 Million Units, intravenous, Administer over 60 Minutes, EVERY 4 HOURS, 42 doses, First dose on Wed12/27/17 at 1400, Last dose on Wed01/03/18 at 1000 Given 12/30/2017 6:22 EDT 4 Million Units Given 12/30/2017 2:09 EDT 4 Million Units phenylephrine HCl in 0.9% Rate Documented 12/21/2017 5:00 EDT 10 mc g/min 7.5 mL/hr NaCl (NEO_SYNEPHRINE) 20 mg/250 mL (80 mcg/mL) infusion solution 20-80 mcg/min (15-60 mL/hr), intravenous, CONTINUOUS, Starting on Wed12/20/17 at 1600, Until Wed12/21/17 at 1559, Routine Rate Change-ICU/L&D Only 12/21/2017 4:19 EDT 10 mcg/min 7.5 mL/hr Rate Documented 12/21/2017 4:00 EDT 25.067 mcg/min 18.8 mL/hr potassium chloride in water infusion 20 mEq Given 12/26/2017 13:34 EDT 20 mEq 20 mEq, intravenous, NOW X1, 1 dose, On Wed12/26/17 at 1330, Routine potassium chloride SA (K-DUR, KLOR-CON) tablet Given 018 9:26 EDT 10 mEq 10 mEq 10 mEq, oral, 2 TIMES DAILY, First dose on Wed12/22/17 at 0800, Until Discontinued, Routine Given 12/28/2017 16:33 EDT 10 mEq Given 12/28/2017 7:58 EDT 10 mEq potassium chloride SA (K-DUR, KLOR-CON) tablet Given 018 9:10 EDT 20 mEq 20 mEq 20 mEq, oral, NOW X1, 1 dose, On 12/25/17 at 0800, Routine propOFol (DIPRIVAN) Rate Documented 12/20/2017 16:00 40.08 mcg/kg/min 24 mL/hr 1000 mg in 100 mL EDT infusion 10 mcg/kg/min ? 99.8 kg (5.988 mL/hr, rounded to 6 mL/hr), intravenous, CONTINUOUS, Starting on 12/20/17 at 1545, Until 12/20/17 at 1619, Routine, On Unit Rate Change 12/20/2017 15:36 EDT 40 mcg/kg/min 24 mL/hr Rate Change 12/20/2017 15:22 EDT 25 mcg/kg/min 15 mL/hr ramelteon (ROZEREM) tablet 8 mg Given 12/09/2017 21:20 EDT 8 mg 8 mg, oral, AT BEDTIME PRN, Starting on Negin 12/09/17 at 2102, Until Wed12/10/17 at 2211, Sleep, Routine ramelteon (ROZEREM) tablet 8 mg Given 12/19/2017 22:22 EDT 8 mg 8 mg, oral, AT BEDTIME PRN, Starting on Wed12/19/17 at 2204, Until 12/20/17 at 1527, Sleep, Routine senna (SENOKOT) tablet 2 Tab Given 12/17/2017 14:59 EDT 2 Tablets 2 Tablet, oral, 2 TIMES DAILY PRN, Starting on 12/07/17 at 1526, Until 12/18/17 at 0858, Constipation, Routine senna (SENOKOT) tablet 2 Tab Given 12/19/2017 8:00 EDT 2 Tablets 2 Tablet, oral, 2 TIMES DAILY, First dose (after last modification) on 12/18/17 at 0915, Until Discontinued, Routine Given 12/18/2017 20:18 EDT 2 Tablets senna (SENOKOT) tablet 2 Tab Given 12/25/2017 9:11 EDT 2 Tablets 2 Tablet, oral, 2 TIMES DAILY, First dose (after last modification) on Wed12/24/17 at 2100, Until Discontinued, Routine Given 12/24/2017 21:29 EDT 2 Tablets sodium chloride 0.9 % (NS) Rate Documented 12/21/2017 15:00 EDT 10 mL/hr 10 mL/hr infusion at 10 mL/hr, 10 mL/hr, intravenous, CONTINUOUS, Starting on Wed12/20/17 at 1545, Until 12/25/17 at 0041, Routine Rate Documented 12/21/2017 14:00 EDT 10 mL/hr 10 mL/hr Rate Documented 12/21/2017 13:00 EDT 10 mL/hr 10 mL/hr sodium chloride 0.9 % flush 3 mL Given 12/20/2017 7:25 EDT 3 mL 3 mL, intravenous, EVERY 8 HOURS, First dose on Wed12/07/17 at 1600, Until Discontinued, Routine Given 12/19/2017 15:19 EDT 10 mL Given 12/19/2017 8:52 EDT 3 mL traMADol (ULTRAM) tablet 50-100 mg Given 12/29/2017 19:46 EDT 100 mg 50-100 mg, oral, EVERY 6 HOURS PRN, Starting on Wed12/20/17 at 1527, Until Negin 12/30/17 at 1759, Pain, Routine Given 12/29/2017 9:26 EDT 100 mg Given 12/23/2017 0:47 EDT 100 mg vancomycin (VANCOCIN) 1,500 mg in sodium Given 12/09/2017 10:38 EDT 1,500 mg chloride (NS) 0.9 % 500 mL IVPB 1,500 mg (rounded from 1,455 mg = 15 mg/ kg ? 97 kg), intravenous, Administer over 90 Minutes, EVERY 12 HOURS, 14 doses, First dose on Wed12/07/17 at 2000, Last dose on Wed12/13/17 at 2200, Routine Given 12/08/2017 21:44 EDT 1,500 mg Given 12/08/2017 10:52 EDT 1,500 mg documented in this encounter Discontinued Medications Medication Sig Discontinue Reason Start Date End Date trazodone (DESYREL) 50 mg Take 50 mg by mouth 12/30/2017 tablet at bedtime. methadone (DOLOPHINE) 5 Take 95 mg by mouth 12/30/2017 mg/5 mL oral solution daily. documented as of this encounter Historical Medications This list may reflect changes made after this encounter. Medication Sig Dispensed Refills Start Date End Date methadone (DOLOPHINE) 5 Take 95 mg by mouth 0 12/30/2017 mg/5 mL oral solution daily. added in this encounter Active and Recently Administered Medications Times are shown in EDT. Scheduled Medication Order 12/28/2017 12/29/2017 12/30/2017 acetaminophen (TYLENOL) tablet 1,000 mg 0204 (Given - Provider: Azalia Gill RN)0756 (Given - Provider: Maria Elena Kaye, MINDA)1422 (Given - Provider: Maria Elena Kaye, MINDA)2104 (Given - Provider: Azalia Gill, RN) 0220 (Given - Provider: Azalia Gill, RN)0926 (Given - Provider: Saeid Hyman, MINDA)1331 (Given - Provider: Saeid Hyman, RN)2128 (Given - Provider: Azalia Gill, RN) 0208 (Given - Provider: Azalia Gill, MINDA)0958 (Given - Provider: Saeid Hyman, MINDA)1420 (Given - Provider: Saeid Hyman, MINDA) 1,000 mg, oral, EVERY 6 HOURS, First dos e on 12/20/17 at 1545, Until Discontinued, Routine ascorbic acid (vitamin C) (VITAMIN C) tablet 1,000 mg (CANCELED) 0800 (Given - Provider: Maria Elena Kaye RN) 0927 (Given - Provider: Saeid Hyman, RN) 1,000 mg, oral, DAILY, First dose on Wed12/26/17 at 0900, Until Discontinued, Routine ascorbic acid (vitamin C) (VITAMIN C) tablet 500 mg 0958 (Given - Provider: Saeid Hyman, MINDA) 500 mg, oral, DAILY, First dose on Negin at 0900, Until Discontinued, Routine aspirin EC tablet 81 mg 0800 (Given - Provider: Maria Elena collazo RN) 0926 (Given - Provider: Saeid Hyman, MINDA) 0958 (Given - Provider: Saeid Hyman, RN) 81 mg, oral, DAILY, First dose on Tue at 1645, Until Discontinued, Routine calcium gluconate 2,000 mg in dextrose 5% (D5W) 50 mL IVPB ( COMPLETED) 1437 (Given - Provider: Saeid Hyman RN) 2,000 mg (2 g), intravenous, Administer over 60 Minutes, NOW X1, 1 dose, Wed12/29/17 at 1315, STAT dextrose 50 % solution 25 g (COMPLETED) 1309 (Given - Provider: Saeid Hyman RN) 25 g, intravenous, NOW X1, 1 dose, Wed12/29/17 at 1315, STAT docusate sodium (COLACE) capsule 200 mg 1006 (Not Give n - Provider: Maria Elena Kaye RN - Reason: Patient/family refused)2234 (Not Given - Provider: Azalia Gill RN - Reason: Patient/family refused) 0926 (Given - Provider: Saeid Hyman RN)2136 (Not Given - Provider: Azalia Gill RN - Reason: Patient/family refused) 1000 (Not Given - Provider: Saeid barnhart RN - Reason: Patient/family refused) 200 mg, oral, 2 TIMES DAILY, First dose on Wed12/24/17 at 2100, Until Discontinued, Routine ferrous sulfate EC tablet 324 mg 0757 (Given - Provider: Jailyn Kaye RN) 0926 (Given - Provider: Saeid Hyman, MINDA) 0958 (Given - Provider: Saeid Hyman RN) 324 mg, oral, DAILY WITH BREAKFAST, Firs t dose on Wed12/24/17 at 0830, Until Discontinued, Routine furosemide (LASIX) injection 20 mg (COMPLETED) 1331 (Given - Provider: Saeid Hyman, MINDA) 20 mg, intravenous, NOW X1, 1 dose, Wed12/29/17 at 1400, Routine furosemide (LASIX) tablet 20 mg 0758 (Given - Provider : Maria Elena Kaye RN)1633 (Given - Provider: Maria Elena Kaye, MINDA) 0926 (Given - Provider: Saeid Hyman, RN)1750 (Given - Provider: Saeid Hyman, MINDA) 0958 (Given - Provider: Saeid Hyman, RN) 20 mg, oral, 2 TIMES DAILY WITH BREAKFAS T & DINNER, First dose on Wed12/21/17 at 1030, Until Discontinued, Routine gabapentin (NEURONTIN) capsule 300 mg 0757 (Given - Pr ovider: Maria Elena Giambatista, RN)1633 (Given - Provider: Maria Elena Kaye RN) 0007 (Given - Provider: Azalia Gill RN)0926 (Given - Provider: Saeid Hyman RN)1543 (Given - Provider: Saeid Hyman RN) 0209 (Given - Provider: Azalia Gill RN - Comment: pt sleeping)0900 (Given - Provider: Saeid Hyman RN) 300 mg, oral, EVERY 8 HOURS, 15 doses, F irst dose on Wed12/26/17 at 0800, Last dose on Wed12/31/17 at 0000, Routine gentamicin (GARAMYCIN) 45 mg in sodium chloride (NS) 0.9 % 5 0 mL IVPB 203 (Given - Provider: Azalia Glil RN) 0958 (Given - Provider: Saeid Hymna RN) 45 mg, intravenous, Administer over 30 M inutes, EVERY 12 HOURS, 7 doses, First dose on Wed12/29/17 at 1999, Last dose on Wed01/01/18 at 1999, Routine gentamicin (GARAMYCIN) 50 mg in sodium c hloride (NS) 0.9 % 50 mL IVPB (CANCELED) 1024 (Given - Provider: Maria Elena alamo RN)2233 (Given - Provider: Azalia Gill RN) 0930 (Trough Due - Provider: Iliana kirby [facility] - Comment: Please call lab to collect via venipuncture gentamicin trough prior to dose administration. Thanks.) 50 mg, intravenous, Administer over 30 M inutes, EVERY 12 HOURS, 5 doses, First dose on Wed12/27/17 at 2200, Last dose on Wed12/29/17 at 2000, Routine 1100 (Peak Due - Provider: Iliana Youssef [facility] - Comment: Please call lab to collect via venipuncture 30 minutes post dose completion to allow for medication distribution. Thanks.) 1106 (Given - Provid er: Saeid Hyman RN - Comment: Delayed while attempting peripheral blood draw for trough) heparin injection 5,000 Units 0800 (Given - Provider: Maria Elena Kaye RN)2234 (Not Given - Provider: Azalia Gill RN - Reason: Patient/family refused) 0927 (Given - Provider: Saeid Hyman RN)2128 (Given - Provider: Azalia Gill RN) 1000 (Given - Provider: Saeid Hyman RN) 5,000 Units, subcutaneous, EVERY 12 HOUR S, First dose on Wed12/22/17 at 2100, Until Discontinued, Routine insulin aspart U-100 (NOVOLOG FLEXPEN) injection 0758 (Not Given - Provider: Maria Elena Kaye RN - Reason: Order parameters not met)1200 (Not Given - Provider: Maria Elena Kaye RN - Reason: Order parameters not met) 0749 (Not Given - Provider: Saeid Hyman RN - Reason: Order parameters not met)1140 (Not Given - Provider: Saeid Hyman RN - Reason: Order parameters not met)1708 (Not Given - Provider: Saeid Hyman RN - Reason: Order parameters not met) 0730 (Not Given - Provider: Saeid barnhart RN - Reason: Order parameters not met)1159 (Not Given - Provider: Saeid Hyman RN - Reason: Order parameters not met) subcutaneous, 3 TIMES DAILY WITH MEALS, First dose on Wed12/25/17 at 0800, Until Discontinued 1832 (Not Given - Provider: Maria Elena collazo RN - Reason: Order parameters not met) insulin regular (HUMULIN R,NOVOLIN R) injection 10 Units (CO MPLETED) 1309 (Given - Provider: Saeid Hyman RN) 10 Units, intravenous, NOW X1, 1 dose, Wed12/29/17 at 1315 methadone (DOLOPHINE) concentrated solution 95 mg 0527 (Given - Provider: Azalia Gill RN) 0545 (Given - Provider: Azalia Gill RN) 0539 (Giv en - Provider: Azalia Gill RN) 95 mg, oral, DAILY, First dose on Wed at 0900, Until Discontinued, Routine metoprolol (LOPRESSOR) tablet 50 mg 0800 (Given - Prov ider: Maria Elena Kaye RN)2102 (Given - Provider: Azalia Gill RN) 09 (Given - Provider: Saeid Hyman RN)2128 (Given - Provider: Azalia Gill RN) 0958 (Given - Provider: Saeid Hyman RN) 50 mg, oral, 2 TIMES DAILY, First dose o n Wed12/22/17 at 2100, Until Discontinued, Routine Multivitamins with Minerals tablet 1 Tab 0801 (Given - Provider: Maria Elena Kaye, RN) 0927 (Given - Provider: Saeid Hyman, MINDA) 0958 (Give n - Provider: Saeid Hyman, MINDA) 1 Tab, oral, DAILY, First dose on Wed at 0900, Until Discontinued, Routine penicillin G potassium 4 Million Units i n sodium chloride (NS) 0.9 % 250 mL custom IVPB 0211 (Given - Provider: Azalia Gill, MINDA)0638 (Given - Provider: Azalia Gill RN)1023 (Given - Provider: Maria Elena Kaye, RN)1416 (Given - Provider: Maria Elena Kaye, RN)1920 (Given - Provider: Maria Elena Kaye, RN) 0232 (Given - Provider: Azalia Gill, MINDA)0545 (Given - Provider: Azalia Gill, RN)1202 (Given - Provider: Saeid Hyman RN - Comment: Only 1 line available at time) 0209 (Given - Provider: Azalia Gill RN)0622 (Given - Provider: Azalia Gill, RN)1100 (Given - Provider: Saeid Hyman, MINDA)1400 (Canceled Entry - Provider: Batch Job User Admin - Comment: Automatically canceled at discontinu 4 Million Units, intravenous, Administer over 60 Minutes, EVERY 4 HOURS, 42 doses, First dose on Wed12/27/17 at 1400, Last dose on Wed01/03/18 at 1000 2233 (Given - Provider: Azalia Gill RN) 1543 (Given - Provider: Saeid Hyman, MINDA - Comment: Off schedule from AM administration adjustment)1852 (Given - Provider: Saeid Hyman, RN)2136 (Given - Provider: Azalia Gill, MINDA) e of medication order) potassium chloride SA (K-DUR, KLOR-CON) tablet 10 mEq (CANCELED) 0758 (Given - Provider: Maria Elena Kaye, MINDA)1633 (Given - Provider: Maria Elena Kaye, MINDA) 0926 (Given - Provider: Saeid Hyman, RN) 10 mEq, oral, 2 TIMES DAILY, First dose on Wed12/22/17 at 0800, Until Discontinued, Routine senna (SENOKOT) tablet 2 Tab 1007 (Not Given - Provide r: Maria Elena Kaye RN - Reason: Patient/family refused)2234 (Not Given - Provider: Azalia Gill RN - Reason: Patient/family refused) 0933 (Not Given - Provider: Saeid barnhart RN - Reason: Patient/family refused)2136 (Not Given - Provider: Azalia Gill RN - Reason: Patient/family refused) 1000 (Not Given - Provider: Saeid barnhart RN - Reason: Patient/family refused) 2 Tab, oral, 2 TIMES DAILY, First dose o n Wed12/24/17 at 2100, Until Discontinued, Routine PRN Medication Order 12/28/2017 12/29/2017 12/30/2017 alteplase (CATHFLO ACTIVASE) injection 2 mg 0919 (Give n - Provider: Nila Spear RN - Comment: purple lumen)1126 (Completed - Provider: Nila Spear, RN) 1015 (Given - Provider: Nila Spear RN - Comment: to red lumen)1246 (Completed - Provider: Nila Spear, RN) 2 mg, intercatheter, PRN, Starting Negin at 1452, Until Negin 12/30/17 at 1759, Line Care, Routine bisacodyl (DULCOLAX) suppository 10 mg 10 mg, rectal, DAILY PRN, Starting Tue at 1621, Until Negin 12/30/17 at 1759, Constipation, PRN for constipation or if no bowel movement by POD#3, Routine dextrose 50 % solution 12.5 g 12.5 g (25 mL), intravenous, PRN, Starti ng Sat 12/25/17 at 0042, Until Negin 12/30/17 at 1759, Low Blood Sugar, Routine glucagon injection 1 mg 1 mg, intramuscular, PRN, Starting Sat at 0042, Until Negin 12/30/17 at 1759, Low blood sugar, Routine ipratropium-albuterol (DUONEB) 0.5 mg-3 mg(2.5 mg base)/3 mL nebulizer solution 3 mL 3 mL, nebulization, EVERY 6 HOURS PRN, S tarting Negin 12/23/17 at 1235, Until Negin 12/30/17 at 1759, Wheezing, Routine morphine (MS IR) tablet 30 mg 0204 (Given - Provider: Azalia Gill, MINDA)0609 (Given - Provider: Azalia Gill RN)1240 (Given - Provider: Maria Elena Kaye, RN)1633 (Given - Provider: Maria Elena Kaye, RN)2104 (Given - Provider: Azalia Gill, MINDA) 0007 (Given - Provider: Azalia Gill RN)0334 (Given - Provider: Azalia Gill RN)0656 (Given - Provider: Azalia Gill, MINDA)1010 (Given - Provider: Saeid Hyman, RN)1331 (Given - Provider: Saedi Hyman, RN) 0208 (Given - Provider: Azalia Gill RN)0810 (Given - Provider: Saeid Hyman, RN)1121 (Given - Provider: Saeid Hyman, RN)1420 (Given - Provider: Saeid Hyman, RN) 30 mg, oral, EVERY 3 HOURS PRN, Starting Negin 12/23/17 at 0603, Until Negin 12/30/17 at 1759, Pain, Routine 175 (Given - Provider: Kiel Hyman, MINDA)212 (Given - Provider: Azalia Gill, MINDA) ondansetron (PF) (ZOFRAN) injection 4 mg 0707 (Given - Provider: Azalia Gill, MINDA) 4 mg, intravenous, EVERY 6 HOURS PRN, St arting 12/20/17 at 1527, Until Negin 12/30/17 at 1759, Nausea, Routine traMADol (ULTRAM) tablet 50-100 mg 0926 (Given - Provider: Saeid Hyman, MINDA)194 (Given - Provider: Azalia Gill, MINDA) 50-100 mg, oral, EVERY 6 HOURS PRN, Star ting 12/20/17 at 1527, Until Negin 12/30/17 at 1759, Pain, Routine documented in this encounter Orders Medications Ordered That Might Not Have Count Last Ord ered Date First Ordered Date Been Administered potassium chloride SA (K-DUR, KLOR-CON) 1 12/30/19 18 tablet 10 mEq penicillin G potassium 4 Million Units in 2 2017 dextrose 5% (D5W) 150 mL IVPB gabapentin (NEURONTIN) solution 300 mg 1 8 dextrose 50 % solution 12.5 g 1 12/25/2017 glucagon injection 1 mg 1 12/25/2017 insulin aspart U-100 (NOVOLOG FLEXPEN) 1 8 injection lactulose (CHRONULAC) 20 gram/30 mL 2 12/24/2017 12/23/2017 solution 30 mL ipratropium-albuterol (DUONEB) 0.5 mg-3 2 12/24/19 18 mg(2.5 mg base)/3 mL nebulizer solution 3 mL bisacodyl (DULCOLAX) suppository 10 mg 1 8 docusate sodium (COLACE) capsule 100 mg 1 12/22/19 18 electrolyte-A (PLASMALYTE-A) bolus 1,000 1 018 mL furosemide (LASIX) tablet 20 mg 1 12/21/2017 senna (SENOKOT) tablet 2 Tab 1 12/21/2017 acetaminophen (TYLENOL) solution unit dose 1 12/20 cup 995 mg acetaminophen (TYLENOL) suppository 975 mg 1 12/20 calcium gluconate 100 mg/mL (10%) 1 12/20/2017 injection 1,000 mg dextrose 50 % solution 12.5-25 g 1 12/20/2017 insulin regular (HUMULIN R, NOVOLIN R) 2 1 018 Units bolus infusion insulin regular (HUMULIN R,NOVOLIN R) 100 1 2017 Units in sodium chloride (NS) 0.9 % 100 mL infusion nitroglycerin 400 mcg/ml in D5W 250 ml 8 infusion potassium chloride in water infusion 20 1 12/21/19 18 mEq induction 4:1 high potassium (HIGH K) bag 1 2017 415 mL maintenance 4:1 low potassium (LOW K) bag 1 2017 810 mL polyethylene glycol 3350 (MIRALAX) packet 1 2017 17 g chlorhexidine gluconate 2 % cloth 1 Each 1 018 nicotine (NICOTROL) 10 mg inhaler 1 1 12/16/2017 Inhaler nicotine inhaler (delivery device) 1 12/16/2017 sodium chloride 0.9 % flush 10 mL 2 12/11/2017 sodium chloride 0.9 % flush 20 mL 1 12/11/2017 gentamicin (GARAMYCIN) IVPB 80 mg 1 12/10/2017 enoxaparin (LOVENOX) injection 40 mg 2 12/08/2017 docusate (COLACE) liquid 100 mg 1 12/07/2017 heparin injection 5,000 Units 1 12/07/2017 sennosides (SENOKOT) syrup 17.6 mg 1 12/07/2017 Procedures Count Last Ordered Date First Ordered Date ECG REPORT - SCANNED 14 01/17/2018 12/09/2017 Diet Count Last Ordered Date First Ordered Date DISCHARGE DIET 1 12/30/2017 Nursing Count Last Ordered Date First Ordered Date ACTIVITY INSTRUCTIONS 4 12/30/2017 BATHING INSTRUCTIONS 1 12/30/2017 WOUND CARE INSTRUCTIONS 2 12/30/2017 GARCIA CATHETER - DISCONTINUE 1 12/23/2017 MEASUREMENTS - MISCELLANEOUS 1 12/21/2017 REMOVE ARTERIAL LINE 1 12/21/2017 CONTRAINDICATION TO ANTICOAGULATION 1 12/20/2017 THERAPY INSERT GARCIA CATHETER 2 12/20/2017 12/07/2017 NURSING COMMUNICATION 2 12/15/2017 12/14/2017 PT Count Last Ordered Date First Ordered Date PT EVALUATION AND TREAT 1 12/27/2017 Respiratory Care Count Last Ordered Date First Ordered Date RESPIRATORY CARE EVALUATION ONLY 3 12/20/2017 12/07/2017 IV Count Last Ordered Date First Ordered Date IV REQUEST 14 12/29/2017 12/08/2017 REMOVE CORDIS 1 12/22/2017 Admission Count Last Ordered Date First Ordered Date STATUS: INPATIENT ACUTE ADMISSION 1 12/07/2017 Transfer Count Last Ordered Date First Ordered Date NOTIFY PPS OF DISCHARGE COMPLETE 1 12/30/2017 PPS NOTIFICATION OF PATIENT ARRIVAL ON 4 8 12/08/2017 UNIT PPS NOTIFICATION OF SENDING PATIENT OFF 2 12/22/19 18 12/20/2017 THE UNIT TRANSFER PATIENT 4 12/21/2017 12/08/2017 CHANGE ATTENDING TO: 2 12/20/2017 12/13/2017 TEACHING SERVICE 1 12/07/2017 UR PATIENT STATUS CHANGE 1 12/07/2017 Discharge Count Last Ordered Date First Ordered Date DISCHARGE PATIENT 1 12/30/2017 Legal Count Last Ordered Date First Ordered Date MISCELLANEOUS DISCHARGE INSTRUCTIONS 3 12/30/2017 Transfuse Count Last Ordered Date First Ordered Date TRANSFUSE RED BLOOD CELLS 2 12/24/2017 documented in this encounter Care Teams Packaging Designer Relationship Specialty Start Date End Date Nick Kumar MD PCP - General 05/18/11 12/07/17 Alex Bliss MD PCP - General 12/08/17 [address] [facility] [place] [address] documented as of this encounter
--- OUTSIDE RECORDS SUMMARY | 2022-06-12 06:23 | XMS_ITS | Encounter Summary ---
:1990 Author Organization [facility] Address [address] [place] [address] Care Team Providers Name Role Phone Nick Kumar MD Primary Care Provider Unavailable Encounter Details Date Type Department Care Team Description 02/04/2012 Hospital Encounter [facility] - Devang Callaway [address] MD [address] [place] [address] Social History Tobacco Use Types Packs/Day Years Used Date Current Every Day Smoker Cigarettes 0.5 Alcohol Use Standard Drinks/Week Comments No 0 (1 standard drink = 0.6 oz pure alcoho l) Sex Assigned at Date Recorded Not on file documented as of this encounter Discharge Disposition Disposition Code Departure Means Destination Home or Self Care documented in this encounter Plan of Treatment Not on filedocumented as of this encounter Visit Diagnoses Not on filedocumented in this encounter Care Teams Towel Rolling Machine Operator Relationship Specialty Start Date End Date Nick Kumar MD PCP - General 05/18/11 12/07/17 documented as of this encounter
--- OUTSIDE RECORDS SUMMARY | 2022-06-12 06:23 | XMS_ITS | Encounter Summary ---
:1990 Author Organization [facility] Address [address] [place] [address] Care Team Providers Name Role Phone Nick Kumar MD Primary Care Provider Unavailable Encounter Details Date Type Department Care Team Description 06/01/2011 Documentation Visit [facility] Carla Arana MD Obstetrics & [address] [place], [place] [address]ue Midwifery - [facility], [facility], Level [address] [place] [address] [phone] (Wo rk) Social History Tobacco Use Types Packs/Day Years Used Date Current Every Day Smoker Cigarettes 0.5 Alcohol Use Standard Drinks/Week Comments No 0 (1 standard drink = 0.6 oz pure alcoho l) Sex Assigned at Date Recorded Not on file documented as of this encounter Progress Notes Aline Arana MD - 06/01/2011 0828 EDT Chart note: Pt wants office based bup. Has not done well with rehab in past. Optiopns are methadone or admit to residential. Could consider [facility] as a resident (we would admit to start bup then goes to [facility]). Bup prescriptions would be contingent on being at [facility]; if left then to methadone. Aline Arana MD documented in this encounter Plan of Treatment Not on filedocumented as of this encounter Visit Diagnoses Not on filedocumented in this encounter Care Teams White Sugar Supervisor Relationship Specialty Start Date End Date Nick Kumar MD PCP - General 05/18/11 12/07/17 documented as of this encounter
--- OUTSIDE RECORDS SUMMARY | 2022-06-12 06:23 | XMS_ITS | Encounter Summary ---
:1990 Author Organization [facility] Address [address] [place] [address] Care Team Providers Name Role Phone Nick Kumar MD Primary Care Provider Unavailable Reason for Visit Reason Comments Initial Visit Encounter Details Date Type Department Care Team Description 05/28/2011 Initial [facility] Unknown, Pro MD chris [place]: [id number] [facility] - Anita Doyle MD [place] [address] [place] [phone] Social History Tobacco Use Types Packs/Day Years Used Date Current Every Day Smoker Cigarettes 0.5 Alcohol Use Standard Drinks/Week Comments No 0 (1 standard drink = 0.6 oz pure alcoho l) Sex Assigned at Date Recorded Not on file documented as of this encounter Last Filed Vital Signs Vital Sign Reading Time Taken Comments Blood Pressure 118/70 05/28/2011 1400 EDT Pulse - - Temperature - - Respiratory Rate - - Oxygen Saturation - - Inhaled Oxygen Concentration - - Weight 65.7 kg (144 lb 12.8 oz) 05/28/2011 1400 EDT Height 174 cm (5' 8.5) 05/28/2011 1400 EDT Body Mass Index 21.7 05/28/2011 1400 EDT documented in this encounter Discharge Disposition Disposition Code Departure Means Destination Auto Discharge documented in this encounter Progress Notes Anita Mendes MD - 05/28/2011 1612 EDT Initial Subjective: Ina Orellana is a 21 y.o. female at approximately 18+3 weeks via U/S at [facility] three weeks ago. She states she was going to have an , and they told her she was 14+6 weeks at that visit-3 weeks ago. Patient decided against the Patient is unsure of her LMP. She states she neverhad a cycle after she delivered in September 2010. Pt has had a URI for the past three days, otherwiseno complaints. No nausea or vomiting. Pt has an extensive drug history, please see Ashley's note for more details. She hopes to be prescribed subutex from [facility] during this . 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 He r child was transported to [facility] for scoring during her third . Her first child lives with his father, she gave the second child up for adoption to a friend. This was unplanned, and the FOB is involved. [facility] Symptoms since LMP: Patient reports URI: cough, rhinorrhea Patient Active Problem List Diagnoses Code ??? , high-risk V23.9H ??? Tobacco use dis-antepart 649.03 ??? Drug use 305.90CN ??? Hepatitis C 070.70A No Known Allergies Past obstetric history reviewed and complications noted in table. Significant OB History: Both previous pregnancies were inductions. First was for post-dates, and shewas unsure why she was induced for the second one. Past Medical History Diagnosis Date ??? Hepatitis C History reviewed. No pertinent past surgical history. 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 Has hx of Chlamydia in 2009. No abnormal pap smears. History reviewed. No pertinent family history. History Social History ??? Marital Status: Single Spouse Name: N/A Number of Children: N/A ??? Years of Education: N/A Social History Main Topics ??? Smoking status: Current Everyday Smoker -- 0.5 packs/day Types: Cigarettes ??? Smokeless tobacco: Not on file ??? Alcohol Use: No ??? Drug Use: Yes Special: Opioids uses 12 mg buprenorphrine daily ??? Sexually Active: Yes -- Male partner(s) Other Topics Concern ??? Not on file Social History Narrative ??? No narrative on file Living Situation: Currently lives with boyfriend in [facility]. Not currently working. Review of Systems: Pertinent items are noted in Subjective/HPI Objective: Filed Vitals: 05/28/11 1400 BP: 118/70 Height: 174 cm (68.5) Weight: 65.681 kg (144 lb 12.8 oz) Body mass index is 21.70 kg/(m^2). Gen: Alert and oriented CV: RRR, no murmurs RESP: CTAB, has cough ABDOMEN: gravid uterus one finger breadth below the uterus FHT 140s GENITALIA: no lesions noted on vulva, insertion of speculum caused severe tenderness, no lesions or abnormalities noted on cervix. Pap collected. G/C collected. Bimanual exam revealed tenderness of right adnexa. No masses noted. 18 week size uterus. Clinical pelvimetry: adequate Assessment: 1. [facility] 18+3 [facility] Will need to obtain ultrasound soon to determinedates as she is unsure of these dates. No complaints except for URI. Plan: 1. Problem list reviewed and updated. Routine labs ordered. Smoking cessation encouraged. 2. Hepatitis C: viral load and LFTs ordered 3. Pt will be scheduled for induction for subutex, has met with Ashley 4. Aneuploidy testing: declined 5. Additional testing: will need 32 week growth ultrasound 6. Follow-up in 4 weeks 7. 60% of 60 min visit spent on counseling and coordination of care. Anita Mendes, discussed with Dr. Belle Attending addendum I saw and evaluated the patient in clinic with Dr. Mendes. I confirmed history, supervised the exam, and agree with the plan as detailed above. Dean Belle MD documented in this encounter Plan of Treatment Not on filedocumented as of this encounter Procedures Procedure Name Priority Date/Time Associated Diagnosis Comme nts POCT Routine 05/28/2011 16:57 Supervision of Results for this TEST, VISUAL READ EDT normal proced ure are in the results section. DRUG SCREEN 11, Routine 05/28/2011 15:13 state, Resul ts for this URINE EDT incidental procedure are in Drug dependence, the results antepartum section. BACTERIAL CULTURE, Routine 05/28/2011 15:13 state, Re sults for this URINE EDT incidental procedure are i n the results section. documented in this encounter Results (ABNORMAL) POCT URINE TEST (05/28/2011 16:57 EDT) Test, Positive (A) Reference Range, POINT OF CARE Urine, POC Negative Control Line Present Yes POINT OF CARE Background Clear? Yes POINT OF CARE Specimen Urine (substance) Performing Organization Address City/State/ZIP Code [facility] POINT OF CARE BACTERIAL CULTURE, URINE (05/28/2011 15:13 EDT) Specimen Description Urine [facility] Result Less than 10,000 [facility] CFU/ml Mixed gram positive growth Report Status Final [facility] 05/29/2011 Specimen Urine (substance) Performing Organization Address City/State/ZIP Code Phon e Number [facility] [address] [place] [address] SERVICES [facility] [address] [place] [address] DRUG SCREEN COMPREHENSIVE (05/28/2011 15:13 EDT) Amphetamine Screen, Negative screen. Confirmatio n testing available upon request. Suitable for medical purposes [facility] Urine only. Will not detect all drugs within class. Cutoff = 1000 ng/ml LAB Barbiturate Screen, Negative screen. Confirmatio n testing available upon request. Suitable for medical purposes [facility] Urine only. Will not detect all drugs within class. Cutoff = 300 ng/ml LAB Benzodiazepine Screen, Negative screen. Confirmatio n testing available upon request. Suitable for medical purposes [facility] Urine only. Will not detect all dr ugs within class. Assay less sensitive to Lorazepam and LAB metabolites. Cutoff = 200 ng/ml Cannabinoid Scrn, Ur Presumptive positive, interp ret with caution. Confirmation testing available upon request. [facility] Suitable for medical purpose s only. Will not detect all drugs within class. Cutoff = 50 ng/ml LAB Cocaine Metabolites, Negative screen. Confirmatio n testing available upon request. Suitable for medical purposes [facility] Ur only. Will not detect all drugs within class. Cutoff = 300 ng/ml LAB Methadone Screen Negative screen. Confirmatio n testing available upon request. Suitable for medical purposes [facility] only. Will not detect all drugs within class. Cutoff = 300 ng/ml LAB Opiate Scrn, Ur Negative screen. Confirmatio n testing available upon request. Suitable for medical purposes [facility] only. Will not detect all dr ugs within class. Cutoff = 300 ng/ml Assay less sensitive to LAB oxycodone and metabolites. Assay does not detect metha done. Oxycodone Screen Negative screen. Confirmatio n testing available upon request. Suitable for medical purposes [facility] only. Will not detect all drugs within class. Cutoff = 300 ng/ml LAB Specimen Urine (substance) Performing Organization Address City/State/ZIP Code Phon e Number [facility] [address] [place] [address] SERVICES [facility] [address] [place] [address] documented in this encounter Visit Diagnoses Diagnosis state, incidental Drug dependence, antepartum(648.33) Drug dependence, antepartum Supervision of normal Supervision of other normal documented in this encounter Care Teams Oil Field Roustabout Relationship Specialty Start Date End Date Nick Kumar MD PCP - General 05/18/11 12/07/17 documented as of this encounter
--- OUTSIDE RECORDS SUMMARY | 2022-06-12 06:23 | XMS_ITS | Encounter Summary ---
:1990 Author Organization [facility] Address [address] [place] [address] Care Team Providers Name Role Phone Nick Kumar MD Primary Care Provider Unavailable Reason for Visit Reason Onset Date Comments Other 06/01/2011 Encounter Details Date Type Department Care Team Description 06/01/2011 Telephone [facility] Ashley Tolentino LICSW Other Services - [facility] [address] [facility] [address] [place], [place] [id number] [place] [phone] Social History Tobacco Use Types Packs/Day Years Used Date Current Every Day Smoker Cigarettes 0.5 Alcohol Use Standard Drinks/Week Comments No 0 (1 standard drink = 0.6 oz pure alcoho l) Sex Assigned at Date Recorded Not on file documented as of this encounter Miscellaneous Notes Telephone Encounter - Ashley Tolentino LICSW - 06/01/2011 1139 EDT Ina returned my phone call. Discussed recommendation for her to go to rehab before we can starttreatment. She was argumentative and upset. She does not want to go to [place] or rehab. She just wantsbup. Treatment. She hung up the phone and did not complete the conversation and no plan was established. RADHA Monte documented in this encounter Plan of Treatment Not on filedocumented as of this encounter Visit Diagnoses Not on filedocumented in this encounter Care Teams Legal Writing Professor Relationship Specialty Start Date End Date Nick Kumar MD PCP - General 05/18/11 12/07/17 documented as of this encounter
--- OUTSIDE RECORDS SUMMARY | 2022-06-12 06:23 | XMS_ITS | Encounter Summary ---
:1990 Author Organization [facility] Address [address] [place] [address] Care Team Providers Name Role Phone Timothy Bliss MD Primary Care Provider Reason for Visit Reason Onset Date Comments Other 12/16/2017 schedule OR for 12/20 Encounter Details Date Type Department Care Team Description 12/16/2017 Telephone [facility] Britany Dumont, [facility] er (schedule OR Cardiothoracic Surgery - for 12/20) [address] [facility] ALESSIO [address] [place] [address] [place] [phone] (Wo rk) Social History Tobacco Use [...] Telephone Encounter - Tana Parrish RN - 12/17/2017 1302 EDT Cardiac Surgery Nursing Pre-Operative Teaching Inpatient Surgical Procedure: MVR Tissue Valve Surgical Procedure Date and Time: 12/20/17 1st case Surgeon: Dr. Hoffman I met with this patient on M5 Inpatient Cardiology Patient Education Topic: Cardiac Surgery Informational Materials Method: Demonstration, Handouts, Verbal, Video The following Cardiac Surgery Patient Educational Information was given to the patient with the review today: Inspirometer demonstrated and given for practice pre-operatively. Patient will use pre-operatively in inpatient setting or as per Inpatient Pre-Operative Guidelines. Patient instructed to use post-operatively every 1-2 hours 10 cycles each time post-operatively. Yes Valve Description Booklet (Tissue Perez Valve / St Bebeto Mechanical Valve) given for review. Valve types with risks and longevity information and consent reviewed by Surgeon yes. Pt would like to speak with Surgeon again regarding valve types. Surgeon made aware. Antibiotic Prophylaxis Handout [employer] for Prevention of Infective Bacterial Endocarditis given and reviewed YES Recovering at Home Following Your Heart Surgery Addendum Handout (with updates) to read prior to viewing Discharge Video given for review Recovering at Home Following Your Heart Surgery DVD given and instructed to view prior to and following surgery Bra Instruction Handout for Female given for review YES Cardiac Nutrition Basics given for review How to Manage your Stress given for review Resource Center Handout given for review Web Site Listing Handout given for review Lodging List given for review Physical Activity for the Patient Following Cardiac Surgery Handout given for review Smoking Cessation Information Handout given for review. Inpatient Team to order consultation or as per their orders. 10 lb sternotomy (no lift, push, pull greater than 10 lbs) restriction reviewed: 12 weeks from surgery date for full-sternotomy No driving x 4 weeks post-operatively or until the Provider approves reviewed If female patient, wear a bra 24 hours per day post-op for 3 months for full-sternotomy, 6 weeks for mini-sternotomy. Remove daily with bathing and reapply reviewed. Bra will be given in Hospital and patient will be sized by Inpatient Nurses reviewed. Handout given for review. Pt states she never where's a bra. I explained to her that a surgical bra would be fitted to her post-op by the ICU Nurse. Initial Discharge Planning from Surgery Information: Patient is followed by Inpatient Case Management who will determine needs with Inpatient Team and Patient. Taught to: Patient Barriers to Learning: Pt's listening skills seem limited. I repeated the information and she verbalized beginning understanding. Teaching to continue on M5. Outcomes: Verbalized beginning understanding. P) As above Patient to continue to review pre-operative teaching information, view video with teaching to continue in the Inpatient Setting by Inpatient Nursing Staff. Call CT Surgery Inpatient Team if questions regarding teaching Patient to practice using inspirometer as instructed by Inpatient Nursing Staff elephone Encounter - Shahrzad Cox - 12/16/2017 0959 EDT Incoming call from Dr. Dumont requesting to book OR for 12/20/17, 1st case - MVR (Tissue). Dr. Dumont to speak to patient to advise. She will advise when we can begin pre-op process. documented in this encounter Plan of Treatment Not on filedocumented as of this encounter Visit Diagnoses Not on filedocumented in this encounter Care Teams Sewer And Inspector Relationship Specialty Start Date End Date Timothy Bliss MD PCP - General 12/08/17 [place] [address] documented as of this encounter
--- OUTSIDE RECORDS SUMMARY | 2022-06-12 06:23 | XMS_ITS | Encounter Summary ---
:1990 Author Organization [facility] Address [address] [place] [address] Care Team Providers Name Role Phone Nick Kumar MD Primary Care Provider Unavailable Encounter Details Date Type Department Care Team Description 01/04/2014 Results Only [facility] Yobani Gill MD [phone] [place] [address] Social History Tobacco Use Types Packs/Day Years [...] Diagnosis Comme nts PAP TEST- RESULT Routine 01/04/2014 0:00 EDT Resu lts for this ONLY procedure are i n the results section. documented in this encounter Results PAP TEST- RESULT ONLY (01/04/2014 0:00 EDT) Pathology Report: CYTOPATHOLOGY REPORT [facility] Reports generated via electronic interface contain neeru ginal data; however they are lacking the format of the original re port. Caution should be taken when reading/interpreting unfo rmatted reports. Name: ? INA ORELLANA ? Accession #: ? [id number] : ? 1990 (Age: 23) ??F ?Collect Date: ? 05/0 09/2013 Location: ? [facility] ? Receive Date : ? 01/05/2014 Provider: ?YOBANI GILL MD Copy to: ?JOSÉ LUIS PHAM MD ? Specimen/Source: ? Pap Test, Cervix/Endocervix, ThinPrep Imaging System with manual evaluation Last Menstrual Period: ? Menstrual/ Status: ? Menorrhagia Other: ? Additional clinical information: Hep C+, last pap 2010 ? SPECIMEN ADEQUACY ? Satisfactory for Evaluation - transformation zone component present - scant squamous epithelial component secondary to exc essive blood GENERAL CATEGORIZATION ? Negative for Intraepithelial Lesion or Malignan cy INTERPRETATION ? Reactive cellular ramesh nges associated with inflammation present (includes repair). ? Document reviewed and electronically signed by: ? NIESHA LUOIS MD ? Report Date: ??01/16/2014 17:08 End of Report Specimen Performing Organization Address City/State/ZIP Code Phon e Number [facility] [address] [place] [address] SERVICES [facility] [address] [place] [address] documented in this encounter Visit Diagnoses Not on filedocumented in this encounter Care Teams C Consultant Relationship Specialty Start Date End Date Nick Kumar MD PCP - General 05/18/11 12/07/17 documented as of this encounter
--- OUTSIDE RECORDS SUMMARY | 2022-06-12 06:23 | XMS_ITS | Encounter Summary ---
:1990 Author Organization [facility] Address [address] [place] [address] Care Team Providers Name Role Phone Nick Kumar MD Primary Care Provider Unavailable Reason for Visit Reason Comments Addiction Problem Encounter Details Date Type Department Care Team Description 05/18/2011 Nurse Only [facility] Unknown, Drug depe ndence, Women's Services - Main Provider , antepartum (Primary Dx) [place] [phone] [place] [address] (Work) [place] [address] [phone] Social History Tobacco Use Types Packs/Day Years Used Date Never Assessed Sex Assigned at Date Recorded Not on file documented as of this encounter Progress Notes Ashley Tolentino, INTERNAL SPECIALIST - 05/18/2011 1334 EDT Ina is a single 21 yr. Old accompanied to clinic today by her boyfriend. He is not the FOB. FOBwill not be involved with the baby. Soni live in [facility]. was unplanned. She has 2 children who are not in her care. Ina has a long history of substance abuse. Her use started at age 15 with cocaine, pills and IVheroin. She has been to rehab several times. Her most recent attempt was at [facility] about 4 months ago. She left without completing the program. Her longest time being drug free was 2.5 year , around the time of her first .This child is now 2.5 years old and lives with his father in [facility]. She wasusing street bup.during her second and then started methadone treatment at about 6 months into the . Ina did not like how she felt on methadone. It made her feel too sleepy, even on a low does. She stopped the treatment on her own. She soon started using street bup. DCF was involved during her second and this child was adopted by a friend. Ina wants to start bup. Treatment. She has been looking for a provider, but has been unable to find one. Boyfriend is also using street bup. and is looking for a treatment provider. Ina is currently using about 8 mg perday. She has been to [facility] for counseling .She plans to resume counseling with Shannon. Ina is anxious to start bup. Treatment. She is aware that she will need to find a post provider. Charm consent signed today. Plan to follow for support and referral. RADHA Monte documented in this encounter Miscellaneous Notes Scanned Note-Null - Ray, Digital Account Executive - 05/20/2011 1149 EDT documented in this encounter Plan of Treatment Not on filedocumented as of this encounter Visit Diagnoses Diagnosis Drug dependence, antepartum(648.33) - Pr scar Drug dependence, antepartum documented in this encounter Care Teams Region Manager Relationship Specialty Start Date End Date Nick Kumar MD PCP - General 05/18/11 12/07/17 documented as of this encounter
--- OUTSIDE RECORDS SUMMARY | 2022-06-12 06:23 | XMS_ITS | Encounter Summary ---
:1990 Author Organization [facility] Address [address] [place] [address] Care Team Providers Name Role Phone Nick Kumar MD Primary Care Provider Unavailable Encounter Details Date Type Department Care Team Description 04/19/2012 Hospital Encounter [facility] Imtiaz [place] [address] [phone] (Wo rk) Social History Tobacco Use Types Packs/Day Years Used Date Current Every Day Smoker Cigarettes 0.25 Smokeless Tobacco: Never Used Alcohol Use Standard Drinks/Week Comments No 0 (1 standard drink = 0.6 oz pure alcoho l) Sex Assigned at Date Recorded Not on file documented as of this encounter Medications at Time of Discharge Medication Sig Dispensed Refills Start Date End Date trazodone (DESYREL) 50 mg Take 50 mg by mouth 0 12/30/2017 tablet at bedtime. documented as of this encounter Discharge Disposition Disposition Code Departure Means Destination Home or Self Care documented in this encounter Plan of Treatment Not on filedocumented as of this encounter Visit Diagnoses Not on filedocumented in this encounter Care Teams Jewel Hole Cornerer Relationship Specialty Start Date End Date Nick Kumar MD PCP - General 05/18/11 12/07/17 documented as of this encounter
--- OUTSIDE RECORDS SUMMARY | 2022-06-12 06:24 | XMS_ITS | Encounter Summary ---
:1990 Author Organization [facility] Address [address] [place] [address] Care Team Providers Name Role Phone Md JUAN JOSE Barber Primary Care Provider Unavailable Encounter Details Date Type Department Care Team Description 02/12/2010 Results Only [facility] Izabella Linton CNM Laboratory Services - [address] [place] [address] [address] [facility] [place] [address] [phone] Social History Tobacco Use Types Packs/Day Years Used Date Never Assessed Sex Assigned at Date Recorded Not on file documented as of this encounter Plan of Treatment Not on filedocumented as of this encounter Procedures Procedure Name Priority Date/Time Associated Diagnosis Comme nts CYTOPATHOLOGY Routine 02/12/2010 0:00 EDT Results for this procedure are i n the results section . documented in this encounter Results CYTOPATHOLOGY (02/12/2010 0:00 EDT) Pathology Report: CYTOPATHOLOGY REPORT ? [facility] Reports generated via electr onic interface contain original data; ? however they are lacking the format of the original report. ? Caution should be taken when reading/interpreting unformatted reports. ? Name: ? INA ORELLANA ? Accession #: ? [id number] ? : ? 1990 (Age: 19) ??F ?Collect Date: ? 02/12/2010 ? Location: ? [facility] ? Receive Date: ? 02/13/2010 ? Provider: ?ANEA LELON G CNM ? Copy to: ? Specimen/Source: ? Pap Test, Cervix/Endocervix, ThinPrep Imaging System ? with manual evaluation ? Last Menstrual Period: ? Menstrual/ Status: ? SPECIMEN ADEQUACY ? Satisfactory for Eval uation ? - transformation zone compon ent present ? GENERAL CATEGORIZATION ? Epithelial Cell Abnor mality ? INTERPRETATION ? Squamous Cell Abnorma lity - Atypical squamous cells, undetermined ? significance (ASC-US). ? EDUCATIONAL NOTES/RECOMMENDA TIONS ? FA elliot diamond wing the 2006 Consensus Guidelines for the Management of Women with Abnormal Cervi grace Cancer Screening Tests (JLGTD, ? 2007;11(4):201-222). ??Conse nsus guidelines are available online at ? www.ASCCP.org. ? Document reviewed and electr onically signed by: ? Hunter Brownlee MD ? Report Date: ??02/19/ 2009 11:42 ? End of Report ? Specimen Performing Organization Address City/State/ZIP Code Phon e Number [facility] [address] [place] [address] SERVICES [facility] [address] [place] [address] documented in this encounter Visit Diagnoses Not on filedocumented in this encounter Care Teams Compressor Mechanic Relationship Specialty Start Date End Date Md Barber MD PCP - General 02/13/10 02/19/10 documented as of this encounter
--- OUTSIDE RECORDS SUMMARY | 2022-06-12 06:24 | XMS_ITS | Encounter Summary ---
:1990 Author Organization [facility] Address [address] [place] [address] Care Team Providers Name Role Phone José Luis Carballo MD Primary Care Provider Encounter Details Date Type Department Care Team Description 03/11/2011 Results Only [facility] Tarun Elizondo [facility] Laboratory Services - [place], [place] [address] [place], [place] [id number] [phone] Social History Tobacco Use Types Packs/Day Years Used Date Never Assessed Sex Assigned at Date Recorded Not on file documented as of this encounter Plan of Treatment Not on filedocumented as of this encounter Procedures Procedure Name Priority Date/Time Associated Diagnosis Comme nts PAP TEST- RESULT Routine 03/11/2011 0:00 EDT Resu lts for this ONLY procedure are i n the results section. documented in this encounter Results PAP TEST- RESULT ONLY (03/11/2011 0:00 EDT) Pathology Report: CYTOPATHOLOGY REPORT ? [facility] ? [facility] Reports generated via electr onic interface contain original data; ? however they are lacking the format of the original report. ? Caution should be taken when reading/interpreting unformatted reports. ? Name: ? INA ORELLANA ? Accession #: ? [id number] ? : ? 1990 (Age: 21) ??F ?Collect Date: ? 03/11/2011 ? Location: ? [facility] ? R eceive Date: ? 03/13/2011 ? Provider: SAE ELIZONDO CNM ? Copy to: JOSÉ LUIS READY MD ? Final Report ? SPECIMEN ADEQUACY ? Satisfactory for Eval uation ? - transformation zone compon ent present ? GENERAL CATEGORIZATION ? Negative for Intraepi thelial Lesion or Malignancy ? INTERPRETATION ? Squamous Cell Abnorma lity - Atypical squamous cells, undetermined ? significance (ASC-US). ? Fungal organisms present mor phologically consistent with Adelaida species. ? EDUCATIONAL NOTES/RECOMMENDA TIONS ? FA recommends breto wing the 2006 Consensus Guidelines for the Management of Women with Abnormal Cervi grace Cancer Screening Tests (JLGTD, ? 2007;11(4):201-222). ??Conse nsus guidelines are available online at ? www.ASCCP.org. ? Last Menstural Period: ? January 2011 ? Menstural/ Status: ? Specimen/Source: ??Pap Test, Cervix/Endocervix, ThinPrep Imaging System with ? manual evaluation ? Document reviewed and electr onically signed by: ? CLAYTON L CIOLINO MD ? Report ??Date: 07/13/ 2011 13:03 ? HPV with Pap Test ? Date Ordered: ? 0 03/18/2011 ? Status: ?? Signed Out ?Date Complete: ? 03/19/2011 ? By: ??System Interface ? Date Reported: ? 03/19/2011 ? Interpretation ? RESULT: Quantity not suffici ent. ? Credit Issued ? Comments ? Document reviewed and electr onically signed by: ? System Interface ? Report date: 03/19/20 11 ? By the signature above, the attending physician certifies that he/she has ? personally conducted a gross and/or microscopic examination of the described ? specimens and rendered or co nfirmed the above diagnosis. ? End of Report ? Specimen Performing Organization Address City/[facility]/ZIP Code Phon e Number [facility] [address] [place] [address] SERVICES [facility] [address] [place] [address] documented in this encounter Visit Diagnoses Not on filedocumented in this encounter Care Teams Digital Director Relationship Specialty Start Date End Date José Luis Carballo MD PCP - General 02/20/10 05/17/11 [facility] [address] [place] [address] documented as of this encounter
[2022-06-12 06:36] LABS: Abs Immature Grans 0.04 10^3/uL (0.0-0.06); Absolute Basophil Count 0.02 10^3/uL (0.0-0.2); Absolute Eosinophil Count 0.05 10^3/uL (0.0-0.7); Absolute Lymphocyte Count 0.83 10^3/uL (1.2-3.4); Absolute Monocyte Count 0.47 10^3/uL (0.1-0.8); Absolute Neutrophil Count 8.83 10^3/uL (1.2-6.7); Basophils % 0.2; Eosinophils % 0.5; HCT 29.4 % (36.0-46.0); HGB 9.6 g/dL (11.2-15.7); Immature Grans % 0.4; Lymphocytes % 8.1; MCH 28.6 pg (27.0-33.0); MCHC 32.7 % (32.0-36.0); MCV 88 fL (80-95); MPV 10.6 fL (8.0-11.0); Monocytes % 4.6; Neutrophils % 86.2; Platelet Count 304 10^3/uL (130-400); RBC 3.36 10^6/uL (3.93-5.22); RDW 12.8 % (11.7-14.6); RDW-SD 40.6 fL; WBC 10.24 10^3/uL (4.4-10.8)
[2022-06-12] MEDS: Normal Saline 1,000 ML 1000 ML IV (06:42)
[2022-06-12 07:46] LABS: ALT 15 U/L (14-59); AST 22 U/L (15-37); Alkaline Phosphatase 170 U/L (46-116); Anion Gap 6.6 mmol/L (3-11); BUN 7 mg/dL (7-18); Bilirubin, Total 0.4 mg/dL (0.2-1.0); CO2 28.4 mmol/L (21.0-32.0); CREATININE 0.7 mg/dL (0.55-1.02); Calcium 8.5 mg/dL (8.5-10.1); Chloride 105 mmol/L (98-107); Estimated GFR 117.04 (mL/min/1.73m2); Glucose 86 mg/dL (74-106); Magnesium 1.4 mg/dL (1.8-2.4); Potassium 3.6 mmol/L (3.5-5.1); Sodium 140 mmol/L (136-145); Total Protein 5.8 g/dL (6.4-8.2); Troponin I < 50 ng/L (<or=60)
[2022-06-12 07:47] LABS: ETHANOL BLOOD < 3.0 mg/dL (<10)
--- NOTE | 2022-06-12 07:59 | W.EDPROG ---
Date of service: 06/12/22 Time of Service: 07:59 Medical Decision Making while i was seeing another patient nursing advised patient stood up ripped her iv out and eloped before I could see her per nursing and prior provider documentation was caox4, no si/hi per nursing voiced by patient and had clinical decision making capacity. She was told by nursing she needs to follow up with obgyn Sign Out Sign Out Data: Sign Out Comment: pending labs, U/S, OB consult Last updated by Pavel Block MD at 06/12/22 07:25 Discharge Plan Disposition Patient Disposition: ELOPED Condition: Stable Discharge Details Clinical Impression: Bilateral lower extremity edema, Third trimester , Polysubstance abuse Primary Care Provider: Timothy Bliss ED Provider: Gil Haro Home Meds and New Rx's Prescriptions: No Action dexmethylphenidate [Focalin XR] 30 mg capsule,ER biphasic 50-50 40 mg PO DAILY AM Label Comments: Take 1 capsule by mouth once a day Take Focalin XR 30 mg q AM and Focalin XR 20 mg q afternoon gabapentin 800 mg tablet 800 mg PO TID Label Comments: Take 1 tablet by mouth three times a day
== END 2022-06-12 07:57 ==
PROVIDERS: Emergency Medicine; Emergency Provider Emergency Medicine; PCP Family Medicine
DX: O12.03 Gestational edema, third trimester (principal); O99.333 Smoking (tobacco) complicating pregnancy, third trimester; F17.210 Nicotine dependence, cigarettes, uncomplicated; O99.213 Obesity complicating pregnancy, third trimester; E66.9 Obesity, unspecified; O99.713 Diseases of the skin and subcutaneous tissue complicating pregnancy, third trimester; L53.9 Erythematous condition, unspecified; O99.513 Diseases of the respiratory system complicating pregnancy, third trimester; R06.02 Shortness of breath; R07.9 Chest pain, unspecified; O26.893 Other specified pregnancy related conditions, third trimester; F19.10 Other psychoactive substance abuse, uncomplicated; Z53.29 Procedure and treatment not carried out because of patient's decision for other reasons; Z3A.00 Weeks of gestation of pregnancy not specified
CPT/HCPCS: 36415; 80053; 87040; 93005; 96361; 99284; 80320; 83735; 84484; 85025; 93010

== ENCOUNTER 2022-07-17 05:05 | Inpatient (IN) | payer MEDICAID, SELFPAY ==
[2022-07-17] VITALS (152 sets, daily range): BP systolic 127–175; BP diastolic 79–98; PULSE 0–103; RESP 16; TEMP 36.6–36.7; O2SAT 94–100; BMI 29.5
--- OUTSIDE RECORDS SUMMARY | 2022-07-17 05:13 | XMS_ITS | Clinical Summary ---
:1990 Author Organization [place] [address] Care Team Providers Name Role Phone Linda [...] Date Last Done Comments Covid-19 Vaccine (#1) 1990 HIV screen 2007 Tdap adult 02/16/2008 Tetanus vaccine 02/16/2008 HPV test 2019 PAP Smear 2019 Influenza (Flu) vaccine (1 of - Influenza standard 05/07/2022 series) Hepatitis C Screening Completed 01/30/2019 Insurance Payer Benefit Plan / Subscriber ID Effective Dates Phone Addre ss Type Group [place] [id number] 2019-Azra [phone] [address] [facility] [address] [place], [place] [id number] Advance Directives Latest Code Status on File Code Status Date Activated Date Inactivated Comments Full Code 01/30/2019 4:36 AM 02/02/2019 3:29 PM Does patient have capacity to make decision: Yes Care Teams Welfare Case Worker Relationship Specialty Start Date End Date Linda Gunn APRN PCP - General Family Medicine 01/30/19 [address] [place], [place] [address]
--- OUTSIDE RECORDS SUMMARY | 2022-07-17 05:13 | XMS_ITS | Encounter Summary ---
:1990 Author Organization [facility] [place] [address] Care Team Providers Name Role Phone Linda Gunn APRN Primary Care Provider Reason for Visit Auth/Cert Specialty Diagnoses / Procedures Referred By Contact Refer red To Contact Diagnoses Choledocholithiasis RUQ PAIN/ JAUNDICE Procedures EMERGENCY IPI Referral ID Status Reason Start Date Expiration Date Visits Requ ested Visits Authorized [id number] 1 1 Encounter Details Date Type Department Care Team Description 01/30/2019 - Hospital Encounter 3 [facility] [place] [address] 02/02/2019 [facility] [place] [address] [place] [id number] Social History Tobacco Use Types Packs/Day Years [...] Ina Orellana Patient Age: 28 y.o. Language: Azeri Race: White Ethnicity: Not nor Admit date: [...] 101.3 F. The number for questions is [phone] before 5 PM weekdays and [phone] after 5 PM and weekends. Pain Medication: [...] will be mailed to you. Please call [phone] to confirm date and time of your appointment if you do not receive your apointment in 3 weeks. No future appointments. Future Appointments and Orders Future Appointments and Orders Future Appointments Provider Department Dept Phone 03/03/2019 9:30 AM Christiane Aviles APRN General Surgery at [place] Arrive at: Emergency Veterinary Assistant Area Inpatient Provider Contact Information: For questions regarding this document or issues relating to this hospitalization on the Medical Service, please contact your inpatient physician through the [facility] Pest Control Operator . Issues after hours and on weekends [...] 101.3 F. The number for questions is [phone] before 5 PM weekdays and [phone] after 5 PM and weekends. Pain Medication: [...] will be mailed to you. Please call [phone] to confirm date and time of your [...] spent >30 minutes (Day of Discharge Code 79358) involved in the final examination of the [...] Cornell MSW - 02/02/2019 9:28 AM EDT REFINERY OPERATOR HELPER met with pt to discuss support network and transportation home at time of dc. Pt reports that her mother's best friend fortino menjivar, and pt BF will be picking her up today @ 12. Pt has identified otto as a consistent support in her life. Pt also connected with [facility] Program ([address] [place] [address] [place] [address] ) for medication assisted treatment with methodone administration. Pt attends counseling services through [facility] ([address] [place] [address] [phone]) Melissa Vinson MD - 02/01/2019 6:07 PM [...] Care: Full Code Team Pager( Coverage 29/03): #[phone] PCP: Linda Gunn APRN [phone] Attestation: IPI Certification I certify that I [...] Care: Full Code Team Pager( Coverage 29/03): #[phone] PCP: Linda Gunn APRN [phone] Attestation: IPI Certification I certify that I am a D-H credentialed attending provider with admitting privileges and that the patient meets or has met medical necessity to require an inpatient IPI level of care meeting a minimum of two midnights or is on the [facility] inpatient only procedure list (status C) due [...] 01/31/2019 Pertinent Endoscopic Procedures/Reports: ERCP 01/30/19: ?The airplane tester film was normal. The esophagus was ?successfully [...] Dr. Owusu. Elías Lake MD Gastroenterology Fellow #[id number] Attending Addendum: I have seen and examined the patient with Dr. Lake. We reviewed the medical record and pertinent studies and imaging. My evaluation and physical examination confirms the above findings. The assessment and plan were formulated in discussion with me at the time of the encounter and I agree with them as documented. Francisco Owusu MD [facility] Gastroenterology Alexis Martinez RN - 01/31/2019 6:26 [...] Electronically signed by: Yrn Alvarenga Gastroenterology Fellow [facility] Pager [phone] 01/30/2019 Edenilson Rosales - 01/30/2019 4:41 AM EDT Inpatient Hospital Medicine - Admission Note Problem List: Active Hospital Problems Diagnosis ??? Choledocholithiasis Resolved Hospital Problems No resolved problems to display. There are no active non-hospital problems to display for this patient. ID: 28 y.o. Female presents to [facility] with abdominal pain History of Present Illness: [...] file Gets together: Not on file Attends hindu service: Not on file Active member of [...] Miscellaneous Notes Consult Note - Bryce Franco, SOFTWARE TEST SPECIALIST - 02/02/2019 10:04 AM EDT BIT Evaluation Referral source: Nursing referral Reason for referral: Anxiety Disruptive behaviors Opioid Use Disorder Relevant history: Ms Orellana is a 28-year-old woman, mother of four, admitted with RUQ pain, nausea, and vomiting, now s/p ERCP. History of childhood trauma, IVDU currently in recovery with counseling and in Methadone assisted treatment at [facility]- current dose 105 mg daily. Ms [...] with Methadone assisted treatment and counseling at [facility]. She also reports being engaged with psychiatric services at [facility] for over 10 years. Ms Orellana reports being motivated to abstain from IVDU with ongoing Methadone assisted treatment and counseling at [facility] and psychiatric services at [facility]. Additional substance use treamtment and relapse prevention resources were given and placed in her discharge instructions. Assessment: Ms Orellana is a 28-year-old woman, mother of four, admitted with RUQ pain, nausea, and vomiting, now s/p ERCP. History of childhood trauma, IVDU currently in recovery with counseling and in Methadone assisted treatment at [facility]- current dose 105 mg daily. Reports being stable on current Methadone dosage, no acute safety concerns. Motivated to maintain abstinence from IVDU with ongoing Methadone assisted treatment and counseling at [facility] and psychiatric services at [facility]. Additional substance use treamtment and relapse prevention resources were given and placed in her discharge instructions. Interventions delivered: Motivational interviewing Supportive therapy Plan: 1. Patient plans to maintain abstinence from IVDU with ongoing Methadone assisted treatment and counseling at [facility] and psychiatric services at [facility]. Medication Assisted Treatment Plan (select yes if referral reason indicates AUD, OUD or PATRIA - other): Yes. Substance use of focus: Opioid Was patient already on a medication to treat OUD prior to admission? Yes. Prescribed buprenorphine, street buprenorphine, methadone, naltrexone Outpatient MAT continued - [contact made on 01/31/19 per primary team (date) [facility] [place][phone]]. Discharge Planning Needs: Additional substance use treatment [...] General surgery to sign off. Please page [phone] with questions/concerns Chirag Mayers MD Surgery Resident [...] extending 1.5 inches down from umbilical incision,night CORN COOKER notified. IV antibiotics infused as ordered. Pt [...] Hogan MD - 02/01/2019 10:07 AM EDT [facility] Operative Note Name: Ina Orellana : 1990 Date of surgery: 02/01/2019 Surgeon: Jorden Hogan MD housing assistant: Chas Soni MD Preoperative dx: Ascending [...] a combination of careful blunt dissection, suction residence manager technique, and judicious electrocautery; critical view of [...] from the abdomen. A 5 mm clip hotel breakfast attendant was then used to place 2 clips [...] ERCP performed by Weston Dixon MD at [facility] END[facility] Social History: Social History [...] on phone: None Gets together: None Attends hindu service: None Active member of club or [...] lap cholecystectomy tomorrow. Please keep NPO @ DE. Risks and benefits discussed with patientand she [...] in the last 7068 hours. Invalid input(s): INTRLRMAIVG5N Heme: No results for input(s): LDH, HAPTOGLOBIN, URICACID in the last 168 hours. No results for input(s): FERRITIN, IRON, TIBC, IRONSAT, SOLTRNRCPT in the last 168 hours.] ABG: ABG (Arterial Blood Gas) No results found for: PHART, PO2ART, OPO6YPF, LUL2NAZ Microbiology: Microbiology Results (Last 30 days) No [...] Code Status: full Jorden Randall 01/31/2019 Pager [phone] Initial Assessments - Stacy De Oliveira RN [...] file Other Pertinent/Service Specific Information: Referral to [facility]/Prescription Coverage: Primary Insurance: MEDICAID [place] Secondary Insurance: N/A Prescription Coverage: Yes Preferred Pharmacy: unknown Other: n/a Primary Care Provider: Linda Gunn, GIBSON [phone] Patient/Caregiver Goals of Treatment: not discussed Potential Needs for Transition of Care: Rehab/SNF: Not indicated Home Health: Not indicated DME: None Dialysis: n/a Community Resources: n/a Transportation: patient to find friend/family, has [place] medicaid and came from other hospital via ambulance Other: n/a Anticipated Barriers to Discharge/Special Considerations: None identified. Referral to REFINERY OPERATOR HELPER due to hxIV drug use on methadone. [...] care planning. Stacy De Oliveira RN Pager: [phone] Plan of Care - Donita Fraser RN [...] GOAL OUTCOME EVALUATION: Consult Note - Weston Dixno MD - 01/30/2019 8:07 AM EDT GASTROENTEROLOGY [...] ??? sodium chloride 0.9% 1,000 mL (01/30/19 6319) hydrOXYzine, sodium chloride 0.9 %, lidocaine, ondansetron [...] file Gets together: Not on file Attends hindu service: Not on file Active member of [...] XR ERCP Imaging Storage Only Routine Once NC N (for Radiant use) for 1 Occurrenc [...] EDT) athologist Signature Neutrophils % 60.5 % [facility] LABORATORY Neutr Abs (ANC) 5.27 1.70 - [facility] 6.10 [facility] x10(3)/[facility] LABORATORY Lymphocytes % 33.9 % [facility] LABORATORY Lymphocytes Abs 3.0 0.9 - 3.2 [facility] x10(3)/[facility] LABORATORY Monocytes % 4.5 % [facility] LABORATORY Monocyte Abs 0.4 0.3 - 0.9 [facility] x10(3)/[facility] LABORATORY Eosinophils % 0.2 % [facility] LABORATORY Eosinophils Abs 0.0 0.0 - 0.4 [facility] x10(3)/[facility] LABORATORY Basophils % 0.6 % [facility] LABORATORY Basophils Abs 0.0 0.0 - 0.1 [facility] x10(3)/[facility] LABORATORY Immature Gran % 0.30 % [facility] LABORATORY Comment: Immature granulocytes(IG's)percentage an d absolute count will include metamyelocytes, myelocytes, and promyelo cytes. Blood smears from CBCs yielding IG's will be scanned manually for concor dance. If this scan disagrees with the automated IG or if promyelocytes are not ed, a manual differential will be performed. Jaz Gran Abs 0.03 0.00 - 0.04 x10(3)/[facility] LABORATORY Specimen Anatomical Collection Method Collection Time Receive d Time (Source) Location / / Volume Laterality Blood specimen 02/02/2019 6:06 AM 019 6:46 (specimen) EDT AM EDT Resulting Agency Comment Spec In Lab Chas Soni MD HEMATOLOGY ORDERABLES Performing Organization Address City/State/[place] [address] (ABNORMAL) Hemogram (02/02/2019 6:06 AM EDT) Analysis Performed At Patho logist Time Signature WBC 8.7 4.0 - 9.5 [facility] x[facility](3[facility] LABORATORY RBC 3.81 (L) 4.00 - [facility] APURVA 5.21 [facility] x10(6)/[facility] LABORATORY Hemoglobin 10.7 (L) 11.7 - [facility] 15.5 gm/dL [facility] LABORATORY Hematocrit 33.1 (L) 35.7 - [facility] 45.8 % [facility] LABORATORY MCV 86.9 82.6 - [facility] 94.4 [facility] LABORATORY MCH 28.1 27.1 - [facility] APURVA 32.0 pg [facility] LABORATORY MCHC 32.3 31.7 - [facility] 35.0 gm/dL [facility] LABORATORY Platelets 266 145 - 357 [facility] x10(3)/[facility] LABORATORY RDWSD 49.6 (H) 37.0 - [facility] High Density Networks 46.0 [facility] LABORATORY RDWCV 15.7 (H) 11.5 - [facility] APURVA 14.1 % [facility] LABORATORY MPV 11.1 7.6 - 12.9 [facility] LABORATORY nRBC % Auto 0.0 % [facility] LABORATORY nRBC Abs Auto 0.000 0.000 - [facility] APURVA 0.000 [facility] x10(3)/[facility] LABORATORY Specimen Anatomical Collection Method Collection Time Receive d Time (Source) Location / / Volume Laterality Blood specimen 02/02/2019 6:06 AM 019 6:46 (specimen) EDT AM EDT Resulting Agency Comment Spec In Lab Chas Soni MD HEMATOLOGY ORDERABLES Performing Organization Address City/[facility]/[place]IP [place] [address] (ABNORMAL) Hepatic Function Panel (02/02/2019 6:06 AM EDT) athologist Signature Total Protein 6.2 6.1 - 8.0 [facility] APURVA gm/dL [facility] LABORATORY Albumin 3.5 3.2 - 5.2 [facility] gm/dL [facility] LABOR[facility]ORY AST 30 0 - 30 [facility] unit/L [facility] LABORATORY ALT 71 (H) 0 - 30 [facility] unit/L [facility] LAB[facility] Alk Phos 162 (H) 40 - 104 [facility] unit/L [facility] LABORATORY Total 1.4 (H) 0.2 - 1.3 [facility] Bilirubin mg/dL [facility] LABORATORY Bili, Direct 0.8 (H) 0.0 - 0.3 [facility] APURVA mg/dL [facility] LABORATORY Specimen Anatomical Collection Method Collection Time Receive d Time (Source) Location / / Volume Laterality Blood specimen 02/02/2019 6:06 AM 019 6:46 (specimen) EDT AM EDT Resulting Agency Comment Spec In Lab Melissa Vinson MD CHEMISTRY ORDERABLES Performing Organization Address City/[facility]/[place] [address] Basic Metabolic Panel (non-fasting) (02/02/2019 6:06 AM EDT) athologist Signature Glucose Lvl 99 65 - 199 [facility] mg/dL [facility] LABORATORY Comment: Diabetes: >=200 mg/dL plus symp toms BUN 8 8 - 18 mg/dL [facility] LABORATORY Creatinine 0.70 0.70 - 1.20 mg/dL [facility] LABORATORY Sodium 141 135 - 145 mmol/L [facility] LABORATORY Potassium 3.5 3.5 - 5.0 mmol/L [facility] LABORATORY Comment: Please note: ??Patients with WBC >100,00 0 may have falsely elevated Potassium levels. ??For accurate Potassium quantif ication in these patients send serum separator tube (gold top) for subsequent determinations. ??Contact the Clinical Chemistry Laboratory if there are any qu estions. Chloride 102 98 - 107 mmol/L [facility] LABORATORY CO2 28 22 - 31 mmol/L [facility] LABORATORY Anion Gap 11 5 - 15 mmol/L [facility] LABORATORY Calcium 8.7 8.5 - 10.5 mg/dL [facility] LABORATORY Estimated GFR 117 >=60 mL/min/1.73 m?? [facility] LABORATORY Comment: The eGFR was calculated using the CKD-EP I equation. As with all creatinine based estimates of kidney function, eGFR values calculated with the CKD-EPI equation are not accurate in patients wi th acute kidney failure, extremes of body mass or the acutely ill. [email or web address] eGFR 136 >=60 mL/min/1.73 m?? [facility] LABORATORY Comment: The eGFR was calculated using the CKD-EP I equation. As with all creatinine based estimates of kidney function, eGFR values calculated with the CKD-EPI equation are not accurate in patients wi th acute kidney failure, extremes of body mass or the acutely ill. [email or web address] Specimen Anatomical Collection Method Collection Time Receive d Time (Source) Location / / Volume Laterality Blood specimen 02/02/2019 6:06 AM 019 6:46 (specimen) EDT AM EDT Resulting Agency Comment Spec In Lab Melissa Vinson MD CHEMISTRY ORDERABLES Performing Organization Address City/State/ZIP Code Phon e Number [place] [id number] [address] Surgical Pathology Report (02/01/2019 10:14 AM EDT) Component Value Ref Test Analysis Performed At [facility] Range Method Time Signature Surgical [id number] ? Location: 3EST; 0330; A [facility] Pathology [place] Report The signing pathologist has (i) examined the relevant preparation(s) for the [facility] specimen(s) and (ii) rendered or confirmed the diagnosis(es) . HOSPITAL LABORATORY . ?Surgic al Pathology DIAGNOSIS Gallbladder, cholecystectomy: - Hyalinizing chronic cholecystitis. - ??Cholelithiasis. Electronically signed by: ??Heriberto Maier MD Verified: ??02/03/2019 ?Pathologist Performed at: ??-[facility] Dept. of Pathology, [place], [place] CLINICAL INFORMATION Specimen Submitted: A - [...] The hepatic margin is inked black Sections/Processing: Ore Grader sections in 3 cassettes as follows: ?A1: ??cystic duct margin and sales representative cash registers mucosa. ?A2-A3: ??Additional sections of mucosa ??pps Specimen (Source) Anatomical Collection Method Collection Time Re ceived Time Location / / Volume Laterality 02/01/2019 10:14 AM EDT Jorden Hogan MD PATHOLOGY/CYTOLOGY ORDERABLE S Performing Organization Address City/State/[place] [address] Specimen to Pathology (02/01/2019 9:46 AM EDT) Specimen Anatomical Collection Method Collection Time Receive d Time (Source) Location / / Volume Laterality AP Specimen 02/01/2019 9:46 AM 9 9:46 EDT AM EDT Narrative [facility] LABORAT ORY - 02/01/2019 9:46 AM EDT Specimen requisition ordered. ??Separate Pathology report to follow Jorden Hogan MD PATHOLOGY/CYTOLOGY ORDERABLE S Performing Organization Address City/[facility]/[place] [address] XR Fluoro No Rad <1Hr - OR Use (02/01/2019 9:44 AM EDT) Specimen (Source) Anatomical Location Collection Method / Collectio n Time Received Time / Laterality Volume Narrative DH RAD - 02/01/2019 9:44 AM EDT This exam is auto-finalizing. No interpr etation was done. Jorden Hogan MD IMG FLUORO ORDERABLES Performing Organization Address [facility]/ZIP Code Phon e Number DH RAD DH RAD [place], [place] ABORH Recheck Status (02/01/2019 6:20 AM EDT) [facility] gist Method Time Signature ABORH Recheck Order Placed [facility] LABORATORY ABORH Type Complete [facility] LABORATORY Specimen Anatomical Collection Method Collection Time Receive d Time (Source) Location / / Volume Laterality Blood specimen 02/01/2019 6:20 AM 019 7:06 (specimen) EDT AM EDT Resulting Agency Comment Spec In Lab Melissa Vinson MD BLOOD BANK ORDERABLES Performing Organization Address City/[facility]/[place] [address] Antibody screen (02/01/2019 6:20 AM EDT) [facility] gist Method Time Signature Ab Screen Negative [facility] LABORATORY Expires at 02/04/2019 JOS[facility] LUIS REINOSOAPURVA 0371 on: [facility] LABORATORY Specimen Anatomical Collection Method Collection Time Receive d Time (Source) Location / / Volume Laterality Blood specimen 02/01/2019 6:20 AM 019 7:06 (specimen) EDT AM EDT Resulting Agency Comment Spec In Lab Melissa Vinson MD BLOOD BANK ORDERABLES Performing Organization Address City/State/[place] [address] ABO/Rh Typing (02/01/2019 6:20 AM EDT) P athologist Signature ABORh Type O Pos [facility] LABORATORY Specimen Anatomical Collection Method Collection Time Receive d Time (Source) Location / / Volume Laterality Blood specimen 02/01/2019 6:20 AM 019 7:06 (specimen) EDT AM EDT Resulting Agency Comment Spec In Lab Melissa Vinson MD BLOOD BANK ORDERABLES Performing Organization Address City/State/[place] [address] [facility] LAB[address]ORY Drive (ABNORMAL) Differential, Automated (02/01/2019 6:20 AM EDT) Patholo gist Method Time Signature Neutrophils % 69.9 % [facility] LABORATORY Neutr Abs (ANC) 6.33 (H) 1.70 - [facility] 6.10 [facility] x10(3)/[facility] LABORATORY Lymphocytes % 25.9 % [facility] LABORATORY Lymphocytes Abs 2.4 0.9 - 3.2 [facility] x10(3)/[facility] LABORATORY Monocytes % 2.9 % [facility] LABORATORY Monocyte Abs 0.3 0.3 - 0.9 [facility] x10(3)/[facility] LABORATORY Eosinophils % 0.3 % [facility] LABORATORY Eosinophils Abs 0.0 0.0 - 0.4 [facility] x10(3)/[facility] LABORATORY Basophils % 0.4 % [facility] LABORATORY Basophils Abs 0.0 0.0 - 0.1 [facility] x10(3)/[facility] LABORATORY Immature Gran % 0.60 % [facility] LABORATORY Comment: Immature granulocytes(IG's)percentage an d absolute count will include metamyelocytes, myelocytes, and promyelo cytes. Blood smears from CBCs yielding IG's will be scanned manually for concor dance. If this scan disagrees with the automated IG or if promyelocytes are not ed, a manual differential will be performed. Jaz Gran Abs 0.05 (H) 0.00 - 0.04 x10(3)/[facility] LABORATORY Specimen Anatomical Collection Method Collection Time Receive d Time (Source) Location / / Volume Laterality Blood specimen 02/01/2019 6:20 AM 019 6:29 (specimen) EDT AM EDT Resulting Agency Comment Spec In Lab Edenilson Rosales MD HEMATOLOGY ORDERABLES Performing Organization Address City/State/[place] [address] (ABNORMAL) Hemogram (02/01/2019 6:20 AM EDT) Analysis Performed At Patho logist Time Signature WBC 9.1 4.0 - 9.5 [facility] x10(3)/[facility] LABORATORY RBC 3.74 (L) 4.00 - [facility] 5.21 [facility] x10(6)/[facility] LABORATORY Hemoglobin 10.7 (L) 11.7 - [facility] 15.5 gm/dL [facility] LABORATORY Hematocrit 32.9 (L) 35.7 - [facility] APURVA 45.8 % [facility] LABORATORY MCV 88.0 82.6 - [facility] 94.4 [facility] LABORATORY MCH 28.6 27.1 - [facility] APURVA 32.0 pg [facility] LABORATORY MCHC 32.5 31.7 - [facility] 35.0 gm/dL [facility] LABORATORY Platelets 245 145 - 357 [facility] x10(3)/[facility] LABORATORY RDWSD 49.1 (H) 37.0 - JOSÉ LUIS APURVA 46.0 [facility] LABORATORY RDWCV 15.5 (H) 11.5 - [facility] APURVA 14.1 % [facility] LABORATORY MPV 10.6 7.6 - 12.9 [facility] LABORATORY nRBC % Auto 0.0 % [facility] LABORATORY nRBC Abs Auto 0.000 0.000 - JOSÉ LUIS APURVA 0.000 [facility] x10(3)/[facility] LABORATORY Specimen Anatomical Collection Method Collection Time Receive d Time (Source) Location / / Volume Laterality Blood specimen 02/01/2019 6:20 AM 019 6:29 (specimen) EDT AM EDT Resulting Agency Comment Spec In Lab Edenilson Rosales MD HEMATOLOGY ORDERABLES Performing Organization Address City/[facility]/[place] [address] (ABNORMAL) Hepatic Function Panel (02/01/2019 6:20 AM EDT) P athologist Signature Total Protein 6.0 (L) 6.1 - 8.0 [facility] APURVA gm/dL [facility] LABORATORY Albumin 3.3 3.2 - 5.2 [facility] gm/dL [facility] LABORATORY AST 33 (H) 0 - 30 [facility] LABORATORY ALT 88 (H) 0 - 30 [facility]/L [facility] LABORATORY Alk Phos 179 (H) 40 - 104 [facility] unit/L [facility] LABORATORY Total 1.8 (H) 0.2 - 1.3 [facility] Bilirubin mg/dL [facility] LABORATORY Bili, Direct 1.0 (H) 0.0 - 0.3 [facility] APURVA mg/dL [facility] LABORATORY Comment: result rechecked-es Specimen Anatomical Collection Method Collection Time Receive d Time (Source) Location / / Volume Laterality Blood specimen 02/01/2019 6:20 AM 019 6:29 (specimen) EDT AM EDT Resulting Agency Comment Spec In Lab Melissa Vinson MD CHEMISTRY ORDERABLES Performing Organization Address City/[facility]/[place] [address] (ABNORMAL) Basic Metabolic Panel (non-fasting) (02/01/2019 6:20 AM EDT) P athologist Signature Glucose Lvl 117 65 - 199 [facility] mg/dL [facility] LABORATORY Comment: Diabetes: >=200 mg/dL plus symp toms BUN 6 (L) 8 - 18 mg/dL [facility] LABORATORY Creatinine 0.80 0.70 - 1.20 mg/dL [facility] LABORATORY Sodium 143 135 - 145 mmol/L [facility] LABORATORY Potassium 3.6 3.5 - 5.0 mmol/L [facility] LABORATORY Comment: Please note: ??Patients with WBC >100,00 0 may have falsely elevated Potassium levels. ??For accurate Potassium quantif ication in these patients send serum separator tube (gold top) for subsequent determinations. ??Contact the Clinical Chemistry Laboratory if there are any qu estions. Chloride 108 (H) 98 - 107 mmol/L [facility] LABORATORY CO2 24 22 - 31 mmol/L [facility] LABORATORY Anion Gap 11 5 - 15 mmol/L [facility] LABORATORY Calcium 8.6 8.5 - 10.5 mg/dL [facility] LABORATORY Estimated GFR 100 >=60 mL/min/1.73 m?? [facility] LABORATORY Comment: The eGFR was calculated using the CKD-EP I equation. As with all creatinine based estimates of kidney function, eGFR values calculated with the CKD-EPI equation are not accurate in patients wi th acute kidney failure, extremes of body mass or the acutely ill. [email or web address] eGFR 115 >=60 mL/min/1.73 m?? [facility] LABORATORY Comment: The eGFR was calculated using the CKD-EP I equation. As with all creatinine based estimates of kidney function, eGFR values calculated with the CKD-EPI equation are not accurate in patients wi th acute kidney failure, extremes of body mass or the acutely ill. [email or web address] Specimen Anatomical Collection Method Collection Time Receive d Time (Source) Location / / Volume Laterality Blood specimen 02/01/2019 6:20 AM 019 6:29 (specimen) EDT AM EDT Resulting Agency Comment Spec In Lab Melissa Vinson MD CHEMISTRY ORDERABLES Performing Organization Address City/State/[place] [address] C. Difficile Screen (01/31/2019 6:13 AM EDT) Analysis Performed At Patho logist Time Signature C Diff Screen Negative Negative [facility] LABORATORY Comment: C. diff ??Negative [...] - GENERAL ORDER CURTIS Performing Organization Address City/[facility]/ZIP [facility] Phon e Number [address] (ABNORMAL) Hepatic Function Panel (01/31/2019 3:51 AM EDT) P athologist Signature Total Protein 7.1 6.1 - 8.0 [facility] gm/dL [facility] LABORATORY Albumin 3.7 3.2 - 5.2 [facility] gm/dL [facility] LABORATORY AST 78 (H) 0 - 30 [facility] unit/L [facility] LABORATORY ALT 124 (H) 0 - 30 [facility] unit/L [facility] LABORATORY Alk Phos 244 (H) 40 - 104 [facility] unit/L [facility] LABORATORY Total 5.2 (H) 0.2 - 1.3 [facility] Bilirubin mg/dL [facility] LABORATORY Bili, Direct 4.1 (H) 0.0 - 0.3 [facility] mg/dL [facility] LABORATORY Specimen Anatomical Collection Method Collection Time Receive d Time (Source) Location / / Volume Laterality Blood specimen 01/31/2019 3:51 AM 019 4:02 (specimen) EDT AM EDT Resulting Agency Comment Spec In Lab Edenilson Rosales MD CHEMISTRY ORDERABLES Performing Organization Address City/[facility] Phon e Number [address] (ABNORMAL) Differential, Automated (01/31/2019 3:51 AM EDT) Patholo gist Method Time Signature Neutrophils % 89.3 % [facility] LABORATORY Neutr Abs (ANC) 8.14 (H) 1.70 - [facility] 6.10 [facility] x10(3)/[facility] L LABORATORY Lymphocytes % 9.4 % [facility] LABORATORY Lymphocytes Abs 0.9 0.9 - 3.2 [facility] x10(3)/[facility] LABORATORY Monocytes % 0.9 % [facility] LABORATORY Monocyte Abs 0.1 (L) 0.3 - 0.9 [facility] x10(3)/[facility] LABORATORY Eosinophils % 0.0 % [facility] LABORATORY Eosinophils Abs 0.0 0.0 - 0.4 [facility] x10(3)/[facility] LABORATORY Basophils % 0.1 % [facility] LABORATORY Basophils Abs 0.0 0.0 - 0.1 [facility] x10(3)/[facility] LABORATORY Immature Gran % 0.30 % [facility] LABORATORY Comment: Immature granulocytes(IG's)percentage an d absolute count will include metamyelocytes, myelocytes, and promyelo cytes. Blood smears from CBCs yielding IG's will be scanned manually for concor dance. If this scan disagrees with the automated IG or if promyelocytes are not ed, a manual differential will be performed. Jaz Gran Abs 0.03 0.00 - 0.04 x10(3)/[facility] LABORATORY Specimen Anatomical Collection Method Collection Time Receive d Time (Source) Location / / Volume Laterality Blood specimen 01/31/2019 3:51 AM 019 4:02 (specimen) EDT AM EDT Resulting Agency Comment Spec In Lab Edenilson Rosales MD HEMATOLOGY ORDERABLES Performing Organization Address City/State/[place] [address] (ABNORMAL) Hemogram (01/31/2019 3:51 AM EDT) Analysis Performed At Patho logist Time Signature WBC 9.1 4.0 - 9.5 [facility] x10(3)/[facility] LABORATORY RBC 4.41 4.00 - [facility] 5.21 [facility] x10(6)/[facility] LABORATORY Hemoglobin 12.5 11.7 - [facility] 15.5 gm/dL [facility] LABORATORY Hematocrit 38.0 35.7 - JOSÉ LUIS LIZARRAGACK 45.8 % [facility] LABORATORY MCV 86.2 82.6 - JOSÉ LUIS APURVA 94.4 [facility] LABORATORY MCH 28.3 27.1 - JOSÉ LUIS LIZARRAGACK 32.0 pg [facility] LABORATORY MCHC 32.9 31.7 - JOSÉ LUIS MANTILLACOCK 35.0 gm/dL [facility] LABORATORY Platelets 292 145 - 357 [facility] x10(3)/[facility] LABORATORY RDWSD 46.7 (H) 37.0 - JOSÉ LUIS APURVA 46.0 [facility] LABORATORY RDWCV 14.6 (H) 11.5 - JOSÉ LUIS APURVA 14.1 % [facility] LABORATORY MPV 11.0 7.6 - 12.9 [facility] LABORATORY nRBC % Auto 0.0 % [facility] LABORATORY nRBC Abs Auto 0.000 0.000 - JOSÉ LUIS MIXON 0.000 [facility] x10(3)/[facility] LABORATORY Specimen Anatomical Collection Method Collection Time Receive d Time (Source) Location / / Volume Laterality Blood specimen 01/31/2019 3:51 AM 019 4:02 (specimen) EDT AM EDT Resulting Agency Comment Spec In Lab Edenilson Rosales MD HEMATOLOGY ORDERABLES Performing Organization Address City/State/[place] [address] (ABNORMAL) Basic Metabolic Panel (non-fasting) (01/31/2019 3:51 AM EDT) P athologist Signature Glucose Lvl 217 (H) 65 - 199 [facility] mg/dL [facility] LABORATORY Comment: delta result rechecked-KLA Diabetes: >=200 mg/dL plus symptoms BUN 4 (L) 8 - 18 mg/dL [facility] LABORATORY Creatinine 0.70 0.70 - 1.20 mg/dL [facility] LABORATORY Sodium 140 135 - 145 mmol/L [facility] LABORATORY Potassium 4.2 3.5 - 5.0 mmol/L [facility] LABORATORY Comment: Please note: ??Patients with WBC >100,00 0 may have falsely elevated Potassium levels. ??For accurate Potassium quantif ication in these patients send serum separator tube (gold top) for subsequent determinations. ??Contact the Clinical Chemistry Laboratory if there are any qu estions. Chloride 106 98 - 107 mmol/L [facility] LABORATORY CO2 23 22 - 31 mmol/L [facility] LABORATORY Anion Gap 11 5 - 15 mmol/L [facility] LABORATORY Calcium 9.1 8.5 - 10.5 mg/dL [facility] LABORATORY Estimated GFR 117 >=60 mL/min/1.73 m?? [facility] LABORATORY Comment: The eGFR was calculated using the CKD-EP I equation. As with all creatinine based estimates of kidney function, eGFR values calculated with the CKD-EPI equation are not accurate in patients wi th acute kidney failure, extremes of body mass or the acutely ill. [email or web address] eGFR 136 >=60 mL/min/1.73 m?? [facility] LABORATORY Comment: The eGFR was calculated using the CKD-EP I equation. As with all creatinine based estimates of kidney function, eGFR values calculated with the CKD-EPI equation are not accurate in patients wi th acute kidney failure, extremes of body mass or the acutely ill. [email or web address] Specimen Anatomical Collection Method Collection Time Receive d Time (Source) Location / / Volume Laterality Blood specimen 01/31/2019 3:51 AM 019 4:02 (specimen) EDT AM EDT Resulting Agency Comment Spec In Lab Melissa Vinson MD CHEMISTRY ORDERABLES Performing Organization Address City/State/[place] [address] ERCP (01/30/2019 11:09 AM EDT) Component Value Ref Test Analysis Performed At [facility] gist Range Method Time Signature ERCP [facility] Endoscopy Procedure Date: 01/30/2019 11:09 AM ? Patient Name: Ina Orellana ? Date of : 1990 ? Age: 28 ? Order #: [id number] ? Instrument Name: [id number] ? Procedure: ? ERCP Indications: ? Bile duct stone(s), Abdominal pain of ? 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 Elevated liver enzymes, dilat ed CBD ? on CT scan Providers: ? Weston Dixon MD, Sonia Castro, ? Imtiaz Bai, MINDA, Lyudmila Stark, ? Third Rigger Referring MD: ? Medicines: ? Propofol per [...] the procedure well. ? Findings: ? 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 The esophagus was ? [...] growth JOSÉ LUIS MIXON at 5 days. [facility] LABORATORY Specimen Anatomical Collection Method Collection Time Receive d Time (Source) Location / / Volume Laterality Blood specimen STRUCTURE OF RIGHT 01/30/2019 7:21 AM 0 01/30/2019 7:21 (specimen) FOREARM / Unknown EDT AM EDT Resulting Agency Comment Spec In Lab Edenilson Rosales MD MICROBIOLOGY - BLOOD ORDERAB LES Performing Organization Address City/State/ZIP Code Phon e Number [place] [address] Lipase (01/30/2019 6:05 AM EDT) P athologist Signature Lipase 9 0 - 60 JOSÉ LUIS MIXON unit/L [facility] LABORATORY Specimen Anatomical Collection Method Collection Time Receive d Time (Source) Location / / Volume Laterality Blood specimen Venous Draw / 01/30/2019 6:05 AM 2018 6:28 (specimen) Unknown EDT AM EDT Resulting Agency Comment Spec In Lab Edenilson Rosales MD CHEMISTRY ORDERABLES Performing Organization Address City/State/[place] [address] Differential, Automated (01/30/2019 6:05 AM EDT) athologist Signature Neutrophils % 70.2 % [facility] LABORATORY Neutr Abs (ANC) 4.50 1.70 - [facility] 6.10 [facility] x10(3)/[facility] LABORATORY Lymphocytes % 22.7 % [facility] LABORATORY Lymphocytes Abs 1.4 0.9 - 3.2 [facility] x10(3)/[facility] LABORATORY Monocytes % 4.5 % [facility] LABORATORY Monocyte Abs 0.3 0.3 - 0.9 [facility] x10(3)/[facility] LABORATORY Eosinophils % 1.9 % [facility] LABORATORY Eosinophils Abs 0.1 0.0 - 0.4 [facility] x10(3)/[facility] LABORATORY Basophils % 0.5 % [facility] LABORATORY Basophils Abs 0.0 0.0 - 0.1 [facility] x10(3)/[facility] LABORATORY Immature Gran % 0.20 % [facility] LABORATORY Comment: Immature granulocytes(IG's)percentage an d absolute count will include metamyelocytes, myelocytes, and promyelo cytes. Blood smears from CBCs yielding IG's will be scanned manually for concor dance. If this scan disagrees with the automated IG or if promyelocytes are not ed, a manual differential will be performed. Jaz Gran Abs 0.01 0.00 - 0.04 x10(3)/[facility] LABORATORY Specimen Anatomical Collection Method Collection Time Receive d Time (Source) Location / / Volume Laterality Blood specimen 01/30/2019 6:05 AM 019 6:26 (specimen) EDT AM EDT Resulting Agency Comment Spec In Lab Edenilson Rosales MD HEMATOLOGY ORDERABLES Performing Organization Address City/State/[place] [address] (ABNORMAL) Hemogram (01/30/2019 6:05 AM EDT) Analysis Performed At Patho logist Time Signature WBC 6.4 4.0 - 9.5 [facility] x10(3[facility] LABORATORY RBC 4.16 4.00 - JOSÉ LUIS APURVA 5.21 [facility] x10(6)/[facility] LABORATORY Hemoglobin 11.6 (L) 11.7 - JOSÉ LUIS APURVA 15.5 gm/dL [facility] LABORATORY Hematocrit 35.3 (L) 35.7 - [facility] 45.8 % [facility] LABORATORY MCV 84.9 82.6 - [facility] 94.4 [facility] LABORATORY MCH 27.9 27.1 - JOSÉ LUIS APURVA 32.0 pg [facility] LABORATORY MCHC 32.9 31.7 - JOSÉ LUIS APURVA 35.0 gm/dL [facility] LABORATORY Platelets 278 145 - 357 [facility] x10(3)/[facility] LABORATORY RDWSD 45.7 37.0 - JOSÉ LUIS APURVA 46.0 [facility] LABORATORY RDWCV 14.6 (H) 11.5 - [facility] APURVA 14.1 % [facility] LABORATORY MPV 10.5 7.6 - 12.9 JOSÉ LUIS APURVA [facility] LABORATORY nRBC % Auto 0.0 % [facility] LABORATORY nRBC Abs Auto 0.000 0.000 - [facility] APURVA 0.000 [facility] x10(3)/[facility] LABORATORY Specimen Anatomical Collection Method Collection Time Receive d Time (Source) Location / / Volume Laterality Blood specimen 01/30/2019 6:05 AM 019 6:26 (specimen) EDT AM EDT Resulting Agency Comment Spec In Lab Edenilson Rosales MD HEMATOLOGY ORDERABLES Performing Organization Address City/State/Z[place] [address] (ABNORMAL) Hepatic Function Panel (01/30/2019 6:05 AM EDT) P athologist Signature Total Protein 6.8 6.1 - 8.0 [facility] gm/dL [facility] LABORATORY Albumin 3.8 3.2 - 5.2 [facility] gm/dL [facility] LABORATORY AST 73 (H) 0 - 30 [facility] unit/L [facility] LABORATORY ALT 128 (H) 0 - 30 [facility] unit/L [facility] LABORATORY Alk Phos 235 (H) 40 - 104 [facility] unit/L [facility] LABORATORY Total 6.8 (H) 0.2 - 1.3 [facility] Bilirubin mg/dL [facility] LABORATORY Bili, Direct 5.7 (H) 0.0 - 0.3 [facility] mg/dL [facility] LABORATORY Specimen Anatomical Collection Method Collection Time Receive d Time (Source) Location / / Volume Laterality Blood specimen 01/30/2019 6:05 AM 019 6:26 (specimen) EDT AM EDT Resulting Agency Comment Spec In Lab Edenilson Rosales MD CHEMISTRY ORDERABLES Performing Organization Address City/State/[place] [address] Hepatitis C RNA, quantitative, PCR (01/30/2019 6:05 AM EDT) Component Value Ref Test Analysis Performed At [facility] Range Method Time Signature HCV Viral <12 IU/mL [facility] LABORATORY HCV Viral Result: <12 IU/mL(Target Not Detected) [facility] Indication for Study: Hepatitis C Infection [facility] Analysis: The [employer] RealTime HCV assay is an in vitro reverse head [employer] LABORATORY polymerase chain reaction (RT-PCR)for the quantitation [...] Rosales MD IMMUNOLOGY ORDERABLES Performing Organization Address City/[facility]/[place]IP [place] [address] Blood culture (01/30/2019 6:05 AM EDT) Patholo gist Method Time Signature Blood Culture No growth JOSÉ LUIS APURVA at 5 days. [facility] LABORATORY Specimen Anatomical Collection Method Collection Time Receive d Time (Source) Location / / Volume Laterality Blood specimen STRUCTURE OF LEFT 01/30/2019 6:05 AM 7:21 (specimen) HAND / Unknown EDT AM EDT Resulting Agency Comment Spec In Lab Edenilson Rosales MD MICROBIOLOGY - BLOOD ORDERAB LES Performing Organization Address [facility] [place] [address] (ABNORMAL) APTT (01/30/2019 6:05 AM EDT) P athologist Signature PTT 38 (H) 25 - 37 sec [facility] LABORATORY Comment: The PTT is [...] Rosales MD HEMATOLOGY ORDERABLES Performing Organization Address City/[facility]/[place] [address] (ABNORMAL) Prothrombin Time (01/30/2019 6:05 AM EDT) P athologist Signature PT 12.6 (H) 9.4 - 12.5 [facility] LABORATORY INR 1.1 [facility] LABORATORY Comment: An INR <2.0 [...] Rosales MD HEMATOLOGY ORDERABLES Performing Organization Address City/[facility]/ZIP Code Phon e Number [address] (ABNORMAL) Phosphorus (01/30/2019 6:05 AM EDT) P athologist Signature Phosphorus 2.4 (L) 2.5 - 4.5 [facility] APURVA mg/dL [facility] LABORATORY Specimen Anatomical Collection Method Collection Time Receive d Time (Source) Location / / Volume Laterality Blood specimen 01/30/2019 6:05 AM 019 6:26 (specimen) EDT AM EDT Resulting Agency Comment Spec In Lab Edenilson Rosales MD CHEMISTRY ORDERABLES Performing Organization Address City/[facility]/ZIP [place] [address] Magnesium (01/30/2019 6:05 AM EDT) P athologist Signature Magnesium 0.73 0.69 - 1.07 JOSÉ LUIS APURVA mmol/L [facility] LABORATORY Specimen Anatomical Collection Method Collection Time Receive d Time (Source) Location / / Volume Laterality Blood specimen 01/30/2019 6:05 AM 019 6:26 (specimen) EDT AM EDT Resulting Agency Comment Spec In Lab Edenilson Rosales MD CHEMISTRY ORDERABLES Performing Organization Address City/[facility]/ZIP [facility] [place] [address] (ABNORMAL) Basic Metabolic Panel (non-fasting) (01/30/2019 6:05 AM EDT) P athologist Signature Glucose Lvl 70 65 - 199 [facility] mg/dL [facility] LABORATORY Comment: Diabetes: >=200 mg/dL plus symp toms BUN 6 (L) 8 - 18 mg/dL [facility] LABORATORY Creatinine 0.63 (L) 0.70 - 1.20 mg/dL [facility] LABORATORY Sodium 141 135 - 145 mmol/L [facility] LABORATORY Potassium 3.5 3.5 - 5.0 mmol/L [facility] LABORATORY Comment: Please note: ??Patients with WBC >100,00 0 may have falsely elevated Potassium levels. ??For accurate Potassium quantif ication in these patients send serum separator tube (gold top) for subsequent determinations. ??Contact the Clinical Chemistry Laboratory if there are any qu estions. Chloride 104 98 - 107 mmol/L [facility] LABORATORY CO2 23 22 - 31 mmol/L [facility] LABORATORY Anion Gap 14 5 - 15 mmol/L [facility] LABORATORY Calcium 8.4 (L) 8.5 - 10.5 mg/dL [facility] LABORATORY Estimated GFR 121 >=60 mL/min/1.73 m?? [facility] LABORATORY Comment: The eGFR was calculated using the CKD-EP I equation. As with all creatinine based estimates of kidney function, eGFR values calculated with the CKD-EPI equation are not accurate in patients wi th acute kidney failure, extremes of body mass or the acutely ill. [email or web address] eGFR 140 >=60 mL/min/1.73 m?? [facility] LABORATORY Comment: The eGFR was calculated using the CKD-EP I equation. As with all creatinine based estimates of kidney function, eGFR values calculated with the CKD-EPI equation are not accurate in patients wi th acute kidney failure, extremes of body mass or the acutely ill. [email or web address] Specimen Anatomical Collection Method Collection Time Receive d Time (Source) Location / / Volume Laterality Blood specimen 01/30/2019 6:05 AM 019 6:26 (specimen) EDT AM EDT Resulting Agency Comment Spec In Lab Edenilson Rosales MD CHEMISTRY ORDERABLES Performing Organization Address City/State/[place] [address] documented in this encounter [...] dose., Routine, Name of patient's Methadone clinic? [facility] phone: , Date last Methadone dose was [...] dose., Routine, Name of patient's Methadone clinic? [facility] phone: , Date last Methadone dose was [...] first.
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 [facility] [address] documented as of this encounter
--- OUTSIDE RECORDS SUMMARY | 2022-07-17 05:14 | XMS_ITS | Encounter Summary ---
:1990 Author Organization [facility] [place] [address] Care Team Providers Name Role Phone Linda Gunn APRN Primary Care Provider Reason for Visit Auth/Cert Specialty Diagnoses / Procedures Referred By Contact Refer red To Contact Diagnoses Choledocholithiasis RUQ PAIN/ JAUNDICE Procedures EMERGENCY IPI Referral ID Status Reason Start Date Expiration Date Visits Requ ested Visits Authorized [id number] 1 1 Encounter Details Date Type Department Care Team Description 01/30/2019 Surgery Gastroenterology at [facility] Weston Dixon MD ERCP [facility] [place] [address] GASTROENTEROLOGY [phone] [place], [place] [address] (Wo rk) Social History Tobacco [...] Ina Orellana Patient Age: 28 y.o. Language: Cook Islander Race: White Ethnicity: Not nor Admit date: [...] 101.3 F. The number for questions is [phone] before 5 PM weekdays and [phone] after 5 PM and weekends. Pain Medication: [...] will be mailed to you. Please call [phone] to confirm date and time of your appointment if you do not receive your apointment in 3 weeks. No future appointments. Future Appointments and Orders Future Appointments and Orders Future Appointments Provider Department Dept Phone 03/03/2019 9:30 AM Christiane Aviles APRN General Surgery at [place] Arrive at: Private Branch [employer] Installer Area 4L [phone] Inpatient Provider Contact Information: For questions regarding this document or issues relating to this hospitalization on the Medical Service, please contact your inpatient physician through the [facility] Admissions Supervisor . Issues after hours and on [...] 101.3 F. The number for questions is [phone] before 5 PM weekdays and [phone] after 5 PM and weekends. Pain Medication: [...] will be mailed to you. Please call [phone] to confirm date and time of your [...] spent >30 minutes (Day of Discharge Code 96017) involved in the final examination of the [...] Cornell MSW - 02/02/2019 9:28 AM EDT ASSEMBLY SUPERVISOR met with pt to discuss support network and transportation home at time of dc. Pt reports that her mother's best friend fortino menjivar, and pt BF will be picking her up today @ 12. Pt has identified otto as a consistent support in her life. Pt also connected with [facility] Program ([address] [place] [address] , [place] [address] ) for medication assisted treatment with methodone administration. Pt attends counseling services through [facility] ([address] [facility]- [phone]) Melissa Vinson MD - 02/01/2019 6:07 PM [...] Care: Full Code Team Pager( Coverage 29/03): #[phone] PCP: Linda Gunn APRN [phone] Attestation: IPI Certification I certify that I am a D-H credentialed attending provider with admitting privileges and that the patient meets or has met medical necessity to require an inpatient IPI level of care meeting a minimum of two midnights or is on the [facility] inpatient only procedure list (status C) due [...] Care: Full Code Team Pager( Coverage 29/03): #[phone] PCP: Linda Gunn APRN [phone] Attestation: IPI Certification I certify that I [...] 01/31/2019 Pertinent Endoscopic Procedures/Reports: ERCP 01/30/19: ?The lead manufacturing technician film was normal. The esophagus was ?successfully [...] Dr. Owusu. Elías Lake MD Gastroenterology Fellow #[id number] Attending Addendum: I have seen and examined the patient with Dr. Lake. We reviewed the medical record and pertinent studies and imaging. My evaluation and physical examination confirms the above findings. The assessment and plan were formulated in discussion with me at the time of the encounter and I agree with them as documented. Francisco Owusu MD [facility] Gastroenterology Alexis Martinez RN - 01/31/2019 6:26 [...] Electronically signed by: Yrn Alvarenga Gastroenterology Fellow [facility] Pager [phone] 01/30/2019 Edenilson Rosales - 01/30/2019 4:41 AM EDT Inpatient Hospital Medicine - Admission Note Problem List: Active Hospital Problems Diagnosis ??? Choledocholithiasis Resolved Hospital Problems No resolved problems to display. There are no active non-hospital problems to display for this patient. ID: 28 y.o. Female presents to [facility] with abdominal pain History of Present Illness: [...] file Gets together: Not on file Attends worship service: Not on file Active member of [...] counseling and in Methadone assisted treatment at [facility]- current dose 105 mg daily. Ms [...] with Methadone assisted treatment and counseling at [facility]. She also reports being engaged with psychiatric services at [facility] for over 10 years. Ms Orellana reports being motivated to abstain from IVDU with ongoing Methadone assisted treatment and counseling at [facility] and psychiatric services at [facility]. Additional substance use treamtment and relapse prevention resources were given and placed in her discharge instructions. Assessment: Ms Orellana is a 28-year-old woman, mother of four, admitted with RUQ pain, nausea, and vomiting, now s/p ERCP. 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 Reports being stable on current Methadone dosage, no acute safety concerns. Motivated to maintain abstinence from IVDU with ongoing Methadone assisted treatment and counseling at [facility] and psychiatric services at [facility]. Additional substance use treamtment and relapse prevention resources were given and placed in her discharge instructions. Interventions delivered: Motivational interviewing Supportive therapy Plan: 1. Patient plans to maintain abstinence from IVDU with ongoing Methadone assisted treatment and counseling at [facility] and psychiatric services at [facility]. Medication Assisted Treatment Plan (select yes if referral reason indicates AUD, OUD or PATRIA - other): Yes. Substance use of focus: Opioid Was patient already on a medication to treat OUD prior to admission? Yes. Prescribed buprenorphine, street buprenorphine, methadone, naltrexone Outpatient MAT continued - [contact made on 01/31/19 per primary team (date) with program name/[email or web address] Sandy/[phone]]. Discharge Planning Needs: Additional substance use treatment [...] the patient. History of Present Illness: Ina Orelalna is a 28 y.o. female with a [...] General surgery to sign off. Please page [phone] with questions/concerns Chirag Mayers MD Surgery Resident [...] extending 1.5 inches down from umbilical incision,night .NET ARCHITECT notified. IV antibiotics infused as ordered. Pt [...] Hogan MD - 02/01/2019 10:07 AM EDT [facility] Operative Note Name: Ina Orellana : 1990 Date of surgery: 02/01/2019 Surgeon: Jorden Hogan MD senior administrative assistant: Chas Soni MD Preoperative dx: Ascending [...] a combination of careful blunt dissection, suction construction contractor technique, and judicious electrocautery; critical view of [...] from the abdomen. A 5 mm clip mold maker plastic molds was then used to place 2 clips [...] ERCP performed by Weston Dixon MD at [facility] ENDOSCOPY Social History: Social History [...] on phone: None Gets together: None Attends worship service: None Active member of club or [...] in the last 7068 hours. Invalid input(s): [id number] Heme: No results for input(s): LDH, HAPTOGLOBIN, URICACID in the last 168 hours. No results for input(s): FERRITIN, IRON, TIBC, IRONSAT, SOLTRNRCPT in the last 168 hours.] ABG: ABG (Arterial Blood Gas) No results found for: PHART, PO2ART, NEB2ZLT, CXF6RYZ Microbiology: Microbiology Results (Last 30 days) No [...] Code Status: full Jorden Randall 01/31/2019 Pager [phone] Initial Assessments - Stacy De Oliveira RN [...] file Other Pertinent/Service Specific Information: Referral to [facility] Health/Prescription Coverage: Primary Insurance: MEDICAID [place] Secondary Insurance: N/A Prescription Coverage: Yes Preferred Pharmacy: unknown Other: n/a Primary Care Provider: Linda Gunn, GIBSON [phone] Patient/Caregiver Goals of Treatment: not discussed Potential Needs for Transition of Care: Rehab/SNF: Not indicated Home Health: Not indicated DME: None Dialysis: n/a Community Resources: n/a Transportation: patient to find friend/family, has [place] medicaid and came from other hospital via ambulance Other: n/a Anticipated Barriers to Discharge/Special Considerations: None identified. Referral to ASSEMBLY SUPERVISOR due to hxIV drug use on methadone. [...] care planning. Stacy De Oliveira RN Pager: [phone] Plan of Care - Donita Fraser RN [...] ??? sodium chloride 0.9% 1,000 mL (01/30/19 4058) hydrOXYzine, sodium chloride 0.9 %, lidocaine, ondansetron [...] file Gets together: Not on file Attends worship service: Not on file Active member of [...] XR ERCP Imaging Storage Only Routine Once AL N (for Radiant use) for 1 Occurrenc [...] TYPE AND SCREEN Routine 02/01/2019 6:20 AM ([facility]) EDT HEPATIC FUNCTION Routine 02/01/2019 6:20 AM [...] LABORATORY Neutr Abs (ANC) 5.27 1.70 - [facility] 6.10 [facility] x10(3)[facility] LABORATORY Lymphocytes % 33.9 % [facility] LABORATORY Lymphocytes Abs 3.0 0.9 - 3.2 [facility] x10(3)/[facility] LABORATORY Monocytes % 4.5 % [facility] LABORATORY Monocyte Abs 0.4 0.3 - 0.9 [facility] x10(3)/[facility] LABORATORY Eosinophils % 0.2 % [facility] LABORATORY Eosinophils Abs 0.0 0.0 - 0.4 [facility] x10(3)/[facility] LABORATORY Basophils % 0.6 % [facility] LABORATORY Basophils Abs 0.0 0.0 - 0.1 [facility] x10(3)/[facility] LABORATORY Immature Gran % 0.30 [...] Jaz Gran Abs 0.03 0.00 - 0.04 x10(3)/[facility] LABORATORY Specimen Anatomical Collection Method Collection Time Receive d Time (Source) Location / / Volume Laterality Blood specimen 02/02/2019 6:06 AM 019 6:46 (specimen) EDT AM EDT Resulting Agency Comment Spec In Lab Chas Soni MD HEMATOLOGY ORDERABLES Performing Organization Address City/State/[place] [address] (ABNORMAL) Hemogram (02/02/2019 6:06 AM EDT) Analysis Performed At Patho logist Time Signature WBC 8.7 4.0 - 9.5 [facility] x10(3)/[facility] LABORATORY RBC 3.81 (L) 4.00 - [place] 5.21 [facility] x10(6)/[facility] LABORATORY Hemoglobin 10.7 (L) 11.7 - [facility] 15.5 gm/dL [facility] LABORATORY Hematocrit 33.1 (L) 35.7 - [facility] 45.8 % [facility] LABORAT[facility] MCV 86.9 82.6 - [facility] 94.4 [facility] LABORATORY MCH 28.1 27.1 - [facility] 32.0 pg [facility] LABORAT[facility] MCHC 32.3 31.7 - [place] 35.0 gm/dL [facility] LAB[facility] Platelets 266 145 - 357 [facility] x10(3)/[facility] LABORATORY RDWSD 49.6 (H) 37.0 - [place] 46.0 [facility] LABORATORY RDWCV 15.7 (H) 11.5 - [facility] 14.1 % [facility] LABORATORY MPV 11.1 7.6 - 12.9 [facility] LABORATORY nRBC % Auto 0.0 % [facility] LABORATORY nRBC Abs Auto 0.000 0.000 - [place] 0.000 [facility] x10(3)/[facility] LABORATORY Specimen Anatomical Collection Method Collection Time Receive d Time (Source) Location / / Volume Laterality Blood specimen 02/02/2019 6:06 AM 019 6:46 (specimen) EDT AM EDT Resulting Agency Comment Spec In Lab Chas Soni MD HEMATOLOGY ORDERABLES Performing Organization Address City/[facility]/[place] [address] (ABNORMAL) Hepatic Function Panel (02/02/2019 6:06 AM EDT) athologist Signature Total Protein 6.2 6.1 - 8.0 [facility] gm/dL [facility] Albumin 3.5 3.2 - 5.2 [facility] gm/dL [facility] AST 30 0 - 30 [facility] unit/L [facility] ALT 71 (H) 0 - 30 [facility] unit/L [facility] Alk Phos 162 (H) 40 - 104 [facility] unit/L [facility] Total 1.4 (H) 0.2 - 1.3 [facility] Bilirubin mg/dL [facility] Bili, Direct 0.8 (H) 0.0 - 0.3 [facility] mg/dL [facility] LABOR[facility] Specimen Anatomical Collection Method Collection Time Receive d Time (Source) Location / / Volume Laterality Blood specimen 02/02/2019 6:06 AM 019 6:46 (specimen) EDT AM EDT Resulting Agency Comment Spec In Lab Melissa Vinson MD CHEMISTRY ORDERABLES Performing Organization Address City/State/[place] [address] Basic Metabolic Panel (non-fasting) (02/02/2019 6:06 AM EDT) athologist [facility] Glucose Lvl 99 65 - 199 [facility] mg/dL [facility] Comment: Diabetes: >=200 mg/dL plus symp toms BUN 8 8 - 18 mg/dL [facility] LABORATORY Creatinine 0.70 0.70 - 1.20 mg/dL [facility] LABORATORY Sodium 141 135 - 145 mmol/L [facility] LABORATORY Potassium 3.5 3.5 - 5.0 mmol/L [facility] LABORATORY Comment: Please note: ??Patients with [...] Anion Gap 11 5 - 15 mmol/L [facility] LABORATORY Calcium 8.7 8.5 - 10.5 mg/dL [facility] LABORATORY Estimated GFR 117 >=60 mL/min/1.73 m?? [facility] LABORATORY Comment: The eGFR was calculated using the CKD-EP I equation. As with all creatinine based estimates of kidney function, eGFR values calculated with the CKD-EPI equation are not accurate in patients wi th acute kidney failure, extremes of body mass or the acutely ill. http://[employer]/[facility]kf eGFR 136 >=60 mL/min/1.73 m?? [facility] LABORATORY Comment: The eGFR was calculated using the CKD-EP I equation. As with all creatinine based estimates of kidney function, eGFR values calculated with the CKD-EPI equation are not accurate in patients wi th acute kidney failure, extremes of body mass or the acutely ill. http://[employer]/[facility]kf Specimen Anatomical Collection Method Collection Time Receive d Time (Source) Location / / Volume Laterality Blood specimen 02/02/2019 6:06 AM 019 6:46 (specimen) EDT AM EDT Resulting Agency Comment Spec In Lab Melissa Vinson MD CHEMISTRY ORDERABLES Performing Organization Address City/State/[place] [address] Surgical Pathology Report (02/01/2019 10:14 AM EDT) Component Value Ref Test Analysis Performed At [facility] Range Method Time Signature Surgical [id number] ? Location: 3EST; 0330; A [facility] Report The signing pathologist has (i) examined the relevant preparation(s) for the [facility] specimen(s) and (ii) rendered or confirmed the diagnosis(es) . HOSPITAL LABORATORY . ?Surgic al Pathology DIAGNOSIS Gallbladder, cholecystectomy: - Hyalinizing chronic cholecystitis. - ??Cholelithiasis. Electronically signed by: ??Heriberto Maier MD Verified: ??02/03/2019 ?Pathologist Performed at: ??-[facility] Dept. of Pathology, [place], [place] CLINICAL INFORMATION Specimen Submitted: A - [...] The hepatic margin is inked black Sections/Processing: Circus Artist sections in 3 cassettes as follows: ?A1: ??cystic duct margin and community relations representative mucosa. ?A2-A3: ??Additional sections of mucosa ??pps Specimen (Source) Anatomical Collection Method Collection Time Re ceived Time Location / / Volume Laterality 02/01/2019 10:14 AM EDT Jorden Hogan MD PATHOLOGY/CYTOLOGY ORDERABLE S Performing Organization Address City/[facility]/ZIP Code Phon e Number [address] Specimen to Pathology (02/01/2019 9:46 AM EDT) Specimen Anatomical Collection Method Collection Time Receive d Time (Source) Location / / Volume Laterality AP Specimen 02/01/2019 9:46 AM 9 9:46 EDT AM EDT Narrative [facility] LABORAT ORY - 02/01/2019 9:46 AM EDT Specimen requisition ordered. ??Separate Pathology report to follow Jorden Hogan MD PATHOLOGY/CYTOLOGY ORDERABLE S Performing Organization Address City/[facility] Phon e Number [address] XR Fluoro No Rad <1Hr - OR Use (02/01/2019 9:44 AM EDT) Specimen (Source) Anatomical Location Collection Method / Collectio n Time Received Time / Laterality Volume Narrative DH RAD - 02/01/2019 9:44 AM EDT This exam is auto-finalizing. No interpr etation was done. Jorden Hogan MD IMG FLUORO ORDERABLES Performing Organization Address City/[facility]/ZIP Code Phon e Number DH RAD DH RAD [place], [place] ABORH Recheck Status (02/01/2019 6:20 AM EDT) [facility] Method Time Signature ABORH Recheck Order Placed [place] LABORATORY ABORH Type Complete [facility] LABORATORY Specimen Anatomical Collection Method Collection Time Receive d Time (Source) Location / / Volume Laterality Blood specimen 02/01/2019 6:20 AM 019 7:06 (specimen) EDT AM EDT Resulting Agency Comment Spec In Lab Melissa Vinson MD BLOOD BANK ORDERABLES Performing Organization Address City/[facility]/[place] [address] Antibody screen (02/01/2019 6:20 AM EDT) [facility] Method Time Signature Ab Screen Negative [facility] LABORATORY Expires at 02/04/2019 [facility] 2359 on: [facility] LABORATORY Specimen Anatomical Collection Method Collection Time Receive d Time (Source) Location / / Volume Laterality Blood specimen 02/01/2019 6:20 AM 019 7:06 (specimen) EDT AM EDT Resulting Agency Comment Spec In Lab Melissa Vinson MD BLOOD BANK ORDERABLES Performing Organization Address City/[facility]/ZIP Code Phon e Number [address] ABO/Rh Typing (02/01/2019 6:20 [...] Organization Address City/State/[place] [address] (ABNORMAL) Differential, Automated (02/01/2019 6:20 AM EDT) [facility] Method Time Signature Neutrophils % 69.9 % [facility] LABORATORY Neutr Abs (ANC) 6.33 (H) 1.70 - [facility] 6.10 [facility] x10(3)/[facility] LABORATORY Lymphocytes % 25.9 % [facility] LABORATORY Lymphocytes Abs 2.4 0.9 - 3.2 [facility] x10(3)/[facility] LABORATORY Monocytes % 2.9 % [facility] LABORATORY Monocyte Abs 0.3 0.3 - 0.9 [facility] x10(3)/[facility] LABORATORY Eosinophils % 0.3 % [facility] LABORATORY Eosinophils Abs 0.0 0.0 - 0.4 [facility] x10(3)/[facility] LABORATORY Basophils % 0.4 % [facility] LABORATORY Basophils Abs 0.0 0.0 - 0.1 [facility] x10(3)/[facility] LABORATORY Immature Gran % 0.60 % [facility] [...] Gran Abs 0.05 (H) 0.00 - 0.04 x10(3)/[facility] LABORATORY Specimen Anatomical Collection Method Collection Time Receive d Time (Source) Location / / Volume Laterality Blood specimen 02/01/2019 6:20 AM 019 6:29 (specimen) EDT AM EDT Resulting Agency Comment Spec In Lab Edenilson Rosales MD HEMATOLOGY ORDERABLES Performing Organization Address City/[facility]/[place] [address] (ABNORMAL) Hemogram (02/01/2019 6:20 AM EDT) Analysis Performed At Patho logist Time Signature WBC 9.1 4.0 - 9.5 [facility] x10(3)/[facility] LABORATORY RBC 3.74 (L) 4.00 - [place] 5.21 [facility] x10(6)/[facility] LABORATORY Hemoglobin 10.7 (L) 11.7 - [place] 15.5 gm/dL [facility] LABORAT[facility] Hematocrit 32.9 (L) 35.7 - [facility] 45.8 % [facility] MCV 88.0 82.6 - [facility] 94.4 [facility] LABORATORY MCH 28.6 27.1 - [place] 32.0 pg [facility] MCHC 32.5 31.7 - [place] 35.0 gm/dL [facility] Platelets 245 145 - 357 [facility] x10(3)/[facility] LABORATORY RDWSD 49.1 (H) 37.0 - [facility] 46.0 [facility] LABORATORY RDWCV 15.5 (H) 11.5 - [facility] 14.1 % [facility] MPV 10.6 7.6 - 12.9 [facility] LABORATORY nRBC % Auto 0.0 % [facility] LABORATORY nRBC Abs Auto 0.000 0.000 - [place] 0.000 [facility] x10(3)/[facility] LABORATORY Specimen Anatomical Collection Method Collection Time Receive d Time (Source) Location / / Volume Laterality Blood specimen 02/01/2019 6:20 AM 019 6:29 (specimen) EDT AM EDT Resulting Agency Comment Spec In Lab Edenilson Rosales MD HEMATOLOGY ORDERABLES Performing Organization Address City/[facility]/[place] [address] (ABNORMAL) Hepatic Function Panel (02/01/2019 6:20 AM EDT) athologist Signature Total Protein 6.0 (L) 6.1 - 8.0 [facility] gm/dL [facility] Albumin 3.3 3.2 - 5.2 [facility] gm/dL [facility] AST 33 (H) 0 - 30 [facility] unit/L [facility] ALT 88 (H) 0 - 30 [facility] unit/L [facility] Alk Phos 179 (H) 40 - 104 [facility] unit/L [facility] Total 1.8 (H) 0.2 - 1.3 [facility] Bilirubin mg/dL [facility] Bili, Direct 1.0 (H) 0.0 - 0.3 [facility] mg/dL [facility] Comment: result rechecked-es Specimen Anatomical Collection Method Collection Time Receive d Time (Source) Location / / Volume Laterality Blood specimen 02/01/2019 6:20 AM 019 6:29 (specimen) EDT AM EDT Resulting Agency Comment Spec In Lab Melissa Vinson MD CHEMISTRY ORDERABLES Performing Organization Address City/State/[place] [address] (ABNORMAL) Basic Metabolic Panel (non-fasting) (02/01/2019 6:20 AM EDT) athologist Signature Glucose Lvl 117 65 - 199 [facility] mg/dL [facility] Comment: Diabetes: >=200 mg/dL plus symp toms BUN 6 (L) 8 - 18 mg/dL [facility] Creatinine 0.80 0.70 - 1.20 mg/dL [facility] Sodium 143 135 - 145 mmol/L [facility] Potassium 3.6 3.5 - 5.0 mmol/L [facility] Comment: Please note: ??Patients with [...] Anion Gap 11 5 - 15 mmol/L [facility] Calcium 8.6 8.5 - 10.5 mg/dL [facility] Estimated GFR 100 >=60 mL/min/1.73 m?? [facility] Comment: The eGFR was calculated using the CKD-EP I equation. As with all creatinine based estimates of kidney function, eGFR values calculated with the CKD-EPI equation are not accurate in patients wi th acute kidney failure, extremes of body mass or the acutely ill. http://[employer]/[facility]USKAnkf eGFR 115 >=60 mL/min/1.73 m?? [facility] Comment: The eGFR was calculated using the CKD-EP I equation. As with all creatinine based estimates of kidney function, eGFR values calculated with the CKD-EPI equation are not accurate in patients wi th acute kidney failure, extremes of body mass or the acutely ill. http://[employer]/[facility]USKAnkf Specimen Anatomical Collection Method Collection Time Receive d Time (Source) Location / / Volume Laterality Blood specimen 02/01/2019 6:20 AM 019 6:29 (specimen) EDT AM EDT Resulting Agency Comment Spec In Lab Melissa Vinson MD CHEMISTRY ORDERABLES Performing Organization Address City/State/[place] [address] C. Difficile Screen (01/31/2019 [...] - GENERAL ORDER CURTIS Performing Organization Address City/[facility]/[place] [address] (ABNORMAL) Hepatic Function Panel (01/31/2019 3:51 AM EDT) P athologist Signature Total Protein 7.1 6.1 - 8.0 [facility] gm/dL [facility] Albumin 3.7 3.2 - 5.2 [facility] gm/dL [facility] AST 78 (H) 0 - 30 [facility] unit/L [facility] ALT 124 (H) 0 - 30 [facility] unit/L [facility] Alk Phos 244 (H) 40 - 104 [facility] unit/L [facility] Total 5.2 (H) 0.2 - 1.3 [facility] Bilirubin mg/dL [facility] Bili, Direct 4.1 (H) 0.0 - 0.3 [facility] mg/dL [facility] Specimen Anatomical Collection Method Collection Time Receive d Time (Source) Location / / Volume Laterality Blood specimen 01/31/2019 3:51 AM 019 4:02 (specimen) EDT AM EDT Resulting Agency Comment Spec In Lab Edenilson Rosales MD CHEMISTRY ORDERABLES Performing Organization Address City/[facility]/ZIP Code Phon e Number [address] (ABNORMAL) Differential, Automated (01/31/2019 3:51 AM EDT) Patholo gist Method Time Signature Neutrophils % 89.3 % [facility] Neutr Abs (ANC) 8.14 (H) 1.70 - [facility] 6.10 [facility] x10(3)/[facility] L LABORATORY Lymphocytes % 9.4 % [facility] Lymphocytes Abs 0.9 0.9 - 3.2 [facility] x10(3)/[facility] LABORATORY Monocytes % 0.9 % [facility] Monocyte Abs 0.1 (L) 0.3 - 0.9 [facility] x10(3)/[facility] LABORATORY Eosinophils % 0.0 % [facility] Eosinophils Abs 0.0 0.0 - 0.4 [facility] x10(3)/[facility] LABORATORY Basophils % 0.1 % [facility] Basophils Abs 0.0 0.0 - 0.1 [facility] x10(3)/[facility] LABORATORY Immature Gran % 0.30 % [facility] [...] Jaz Gran Abs 0.03 0.00 - 0.04 x10(3)/[facility] MAR Y [facility] LABORATORY Specimen Anatomical Collection Method Collection Time Receive d Time (Source) Location / / Volume Laterality Blood specimen 01/31/2019 3:51 AM 019 4:02 (specimen) EDT AM EDT Resulting Agency Comment Spec In Lab Edenilson Rosales MD HEMATOLOGY ORDERABLES Performing Organization Address City/State/ZIP Code Phon e Number [place] [id number] (ABNORMAL) Hemogram (01/31/2019 3:51 AM EDT) Analysis Performed At Patho logist Time Signature WBC 9.1 4.0 - 9.5 [facility] x10(3)/[facility] LABORATORY RBC 4.41 4.00 - [facility] 5.21 [facility] x10(6)/[facility] LABORATORY Hemoglobin 12.5 11.7 - [facility] 15.5 gm/dL [facility] Hematocrit 38.0 35.7 - [facility] 45.8 % [facility] MCV 86.2 82.6 - [facility] 94.4 fL [facility] MCH 28.3 27.1 - [facility] 32.0 pg [facility] MCHC 32.9 31.7 - [facility] 35.0 gm/dL [facility] Platelets 292 145 - 357 [facility] x10(3)/[facility] LABORATORY RDWSD 46.7 (H) 37.0 - [facility] 46.0 [facility] LABORATORY RDWCV 14.6 (H) 11.5 - [facility] 14.1 % [facility] MPV 11.0 7.6 - 12.9 [facility] LABORATORY nRBC % Auto 0.0 % [facility] nRBC Abs Auto 0.000 0.000 - [facility] 0.000 [facility] x10(3)/[facility] LABORATORY Specimen Anatomical Collection Method Collection Time Receive d Time (Source) Location / / Volume Laterality Blood specimen 01/31/2019 3:51 AM 019 4:02 (specimen) EDT AM EDT Resulting Agency Comment Spec In Lab Edenilson Rosales MD HEMATOLOGY ORDERABLES Performing Organization Address City/State/[place] [address] (ABNORMAL) Basic Metabolic Panel (non-fasting) (01/31/2019 3:51 AM EDT) P athologist Signature Glucose Lvl 217 (H) 65 - 199 [facility] mg/dL [facility] Comment: delta result rechecked-KLA Diabetes: >=200 mg/dL plus symptoms BUN 4 (L) 8 - 18 mg/dL [facility] Creatinine 0.70 0.70 - 1.20 mg/dL [facility] Sodium 140 135 - 145 mmol/L [facility] Potassium 4.2 3.5 - 5.0 mmol/L [facility] Comment: Please note: ??Patients with [...] Anion Gap 11 5 - 15 mmol/L [facility] Calcium 9.1 8.5 - 10.5 mg/dL [facility] Estimated GFR 117 >=60 mL/min/1.73 m?? [facility] Comment: The eGFR was calculated using the CKD-EP I equation. As with all creatinine based estimates of kidney function, eGFR values calculated with the CKD-EPI equation are not accurate in patients wi th acute kidney failure, extremes of body mass or the acutely ill. http://[employer]/[facility]USKAnk eGFR 136 >=60 mL/min/1.73 m?? [facility] Comment: The eGFR was calculated using the CKD-EP I equation. As with all creatinine based estimates of kidney function, eGFR values calculated with the CKD-EPI equation are not accurate in patients wi th acute kidney failure, extremes of body mass or the acutely ill. http://[employer]/DHnkf Specimen Anatomical Collection Method Collection Time Receive d Time (Source) Location / / Volume Laterality Blood specimen 01/31/2019 3:51 AM 019 4:02 (specimen) EDT AM EDT Resulting Agency Comment Spec In Lab Melissa Vinson MD CHEMISTRY ORDERABLES Performing Organization Address City/State/[place] [address] ERCP (01/30/2019 11:09 AM EDT) Component Value Ref Test Analysis Performed At [facility] Range Method Time Signature ERCP [facility] Endoscopy Procedure Date: 01/30/2019 11:09 AM ? Patient Name: Ina Orellana ? Date of : 1990 ? Age: 28 ? Order #: [id number] ? Instrument Name: [id number] ? Procedure: ? ERCP Indications: ? Bile duct stone(s), Abdominal pain of ? 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 Elevated liver enzymes, dilat ed CBD ? on CT scan Providers: ? Weston Dixon MD, Sonia Castro, ? Imtiaz Bai, MINDA, Lyudmila Stark, ? Tunneller Referring MD: ? Medicines: ? Propofol per [...] the procedure well. ? Findings: ? The lead manufacturing technician film was normal. The esophagus was ? [...] SURGICAL ORDERABLES Performing Organization Address [facility] Phon e Number [employer]ATION Blood culture (01/30/2019 7:21 AM EDT) Patholo gist Method Time Signature Blood Culture No growth [facility] LU[facility] MIXON at 5 days. [facility] Specimen Anatomical Collection Method Collection Time Receive d Time (Source) Location / / Volume Laterality Blood specimen STRUCTURE OF RIGHT 01/30/2019 7:21 AM 0 01/30/2019 7:21 (specimen) FOREARM / Unknown EDT AM EDT Resulting Agency Comment Spec In Lab Edenilson Rosales MD MICROBIOLOGY - BLOOD ORDERAB LES Performing Organization Address [facility] [place] [address] Lipase (01/30/2019 6:05 AM EDT) P athologist Signature Lipase 9 0 - 60 [facility] unit/L [facility] Specimen Anatomical Collection Method Collection Time Receive d Time (Source) Location / / Volume Laterality Blood specimen Venous Draw / 01/30/2019 6:05 AM 2018 6:28 (specimen) Unknown EDT AM EDT Resulting Agency Comment Spec In Lab Edenilson Rosales MD CHEMISTRY ORDERABLES Performing Organization Address [facility] Phon e Number [address] Differential, Automated (01/30/2019 6:05 AM EDT) P athologist Signature Neutrophils % 70.2 % [facility] Neutr Abs (ANC) 4.50 1.70 - [facility] 6.10 [facility] x10(3)/[facility] LABORATORY Lymphocytes % 22.7 % [facility] Lymphocytes Abs 1.4 0.9 - 3.2 [facility] x10(3)/[facility] LABORATORY Monocytes % 4.5 % [facility] Monocyte Abs 0.3 0.3 - 0.9 [facility] x10(3)/[facility] LABORATORY Eosinophils % 1.9 % [facility] Eosinophils Abs 0.1 0.0 - 0.4 [facility] x10(3)/[facility] LABORATORY Basophils % 0.5 % [facility] Basophils Abs 0.0 0.0 - 0.1 [facility] x10(3)/[facility] LABORATORY Immature Gran % 0.20 % [facility] [...] Jaz Gran Abs 0.01 0.00 - 0.04 x10(3)/[facility] MAR Y [facility] LABORATORY Specimen Anatomical Collection Method Collection Time Receive d Time (Source) Location / / Volume Laterality Blood specimen 01/30/2019 6:05 AM 019 6:26 (specimen) EDT AM EDT Resulting Agency Comment Spec In Lab Edenilson Rosales MD HEMATOLOGY ORDERABLES Performing Organization Address City/State/[place] [address] (ABNORMAL) Hemogram (01/30/2019 6:05 AM EDT) Analysis Performed At Patho logist Time Signature WBC 6.4 4.0 - 9.5 [facility] x10(3)/[facility] LABORATORY RBC 4.16 4.00 - [facility] [place] 5.21 [facility] x10(6)/[facility] LABORATORY Hemoglobin 11.6 (L) 11.7 - [facility] [place] 15.5 gm/dL [facility] Hematocrit 35.3 (L) 35.7 - [facility] [place] 45.8 % [facility] MCV 84.9 82.6 - [facility] 94.4 [facility] LABORATORY MCH 27.9 27.1 - [place] [place] 32.0 pg [facility] MCHC 32.9 31.7 - [facility] [place] 35.0 gm/dL [facility] Platelets 278 145 - 357 [facility] x10(3)/[facility] LABORATORY RDWSD 45.7 37.0 - [facility] 46.0 [facility] LABORATORY RDWCV 14.6 (H) 11.5 - [facility] 14.1 % [facility] MPV 10.5 7.6 - 12.9 [facility]ORY nRBC % Auto 0.0 % [facility] nRBC Abs Auto 0.000 0.000 - [facility] 0.000 [facility] x10(3)/[facility] LABORATORY Specimen Anatomical Collection Method Collection Time Receive d Time (Source) Location / / Volume Laterality Blood specimen 01/30/2019 6:05 AM 019 6:26 (specimen) EDT AM EDT Resulting Agency Comment Spec In Lab Edenilson Rosales MD HEMATOLOGY ORDERABLES Performing Organization Address City/State/[place] [address] (ABNORMAL) Hepatic Function Panel (01/30/2019 6:05 AM EDT) P athologist Signature Total Protein 6.8 6.1 - 8.0 [facility] gm/dL [facility] Albumin 3.8 3.2 - 5.2 [facility] gm/dL [facility] AST 73 (H) 0 - 30 [facility] unit/L [facility] ALT 128 (H) 0 - 30 [facility] unit/L [facility] Alk Phos 235 (H) 40 - 104 [facility] unit/L [facility] Total 6.8 (H) 0.2 - 1.3 [facility] Bilirubin mg/dL [facility] Bili, Direct 5.7 (H) 0.0 - 0.3 [facility] mg/dL [facility] Specimen Anatomical Collection Method Collection Time Receive d Time (Source) Location / / Volume Laterality Blood specimen 01/30/2019 6:05 AM 019 6:26 (specimen) EDT AM EDT Resulting Agency Comment Spec In Lab Edenilson Rosales MD CHEMISTRY ORDERABLES Performing Organization Address City/[facility] Code Phon e Number [address] Hepatitis C RNA, quantitative, PCR (01/30/2019 6:05 AM EDT) Component Value Ref Test Analysis Performed At [facility] Range Method Time Signature HCV Viral <12 IU/mL [facility] LABORATORY HCV Viral Result: <12 IU/mL(Target Not Detected) [facility] Indication for Study: Hepatitis C Infection [facility] Analysis: The [employer] RealTime HCV assay is an in vitro reverse commission specialist LABORATORY polymerase chain reaction (RT-PCR)for the quantitation [...] Rosales MD IMMUNOLOGY ORDERABLES Performing Organization Address City/[facility] [place] [address] Blood culture (01/30/2019 6:05 AM EDT) [facility] [employer] Method Time Signature Blood Culture No growth JOSÉ LUIS MIXON at 5 days. [facility] Specimen Anatomical Collection Method Collection Time Receive d Time (Source) Location / / Volume Laterality Blood specimen STRUCTURE OF LEFT 01/30/2019 6:05 AM 7:21 (specimen) HAND / Unknown EDT AM EDT Resulting Agency Comment Spec In Lab Edenilson Rosales MD MICROBIOLOGY - BLOOD ORDERAB LES Performing Organization Address City/[facility]/[place] [address] (ABNORMAL) APTT (01/30/2019 6:05 [...] Rosales MD HEMATOLOGY ORDERABLES Performing Organization Address City/[facility]/[place] [address] (ABNORMAL) Prothrombin Time (01/30/2019 6:05 AM EDT) P athologist Signature PT 12.6 (H) 9.4 - 12.5 [facility] LABORATORY INR 1.1 [facility] LABORATORY [...] Rosales MD HEMATOLOGY ORDERABLES Performing Organization Address City/[facility]/ZIP Code Phon e Number [address] (ABNORMAL) Phosphorus (01/30/2019 6:05 AM EDT) athologist Signature Phosphorus 2.4 (L) 2.5 - 4.5 [facility] mg/dL [facility] Specimen Anatomical Collection Method Collection Time Receive d Time (Source) Location / / Volume Laterality Blood specimen 01/30/2019 6:05 AM 019 6:26 (specimen) EDT AM EDT Resulting Agency Comment Spec In Lab Edenilson Rosales MD CHEMISTRY ORDERABLES Performing Organization Address City/[facility]/ZIP Code Phon e Number [address] Magnesium (01/30/2019 6:05 AM EDT) athologist Signature Magnesium 0.73 0.69 - 1.07 [facility] mmol/L [facility] Specimen Anatomical Collection Method Collection Time Receive d Time (Source) Location / / Volume Laterality Blood specimen 01/30/2019 6:05 AM 019 6:26 (specimen) EDT AM EDT Resulting Agency Comment Spec In Lab Edenilson Rosales MD CHEMISTRY ORDERABLES Performing Organization Address City/[facility]/ZIP [facility] [place] [address] (ABNORMAL) Basic Metabolic Panel (non-fasting) (01/30/2019 6:05 AM EDT) athologist Signature Glucose Lvl 70 65 - 199 [facility] mg/dL [facility] Comment: Diabetes: >=200 mg/dL plus symp toms BUN 6 (L) 8 - 18 mg/dL [facility] Creatinine 0.63 (L) 0.70 - 1.20 mg/dL [facility] Sodium 141 135 - 145 mmol/L [facility] Potassium 3.5 3.5 - 5.0 mmol/L [facility] Comment: Please note: ??Patients with [...] Anion Gap 14 5 - 15 mmol/L [facility] Calcium 8.4 (L) 8.5 - 10.5 mg/dL [facility] Estimated GFR 121 >=60 mL/min/1.73 m?? [facility] Comment: The eGFR was calculated using the CKD-EP I equation. As with all creatinine based estimates of kidney function, eGFR values calculated with the CKD-EPI equation are not accurate in patients wi th acute kidney failure, extremes of body mass or the acutely ill. http://[employer]/[facility]USKAnkf eGFR 140 >=60 mL/min/1.73 m?? [facility] Comment: The eGFR was calculated using the CKD-EP I equation. As with all creatinine based estimates of kidney function, eGFR values calculated with the CKD-EPI equation are not accurate in patients wi th acute kidney failure, extremes of body mass or the acutely ill. http://[employer]/[facility]USKAnkf Specimen Anatomical Collection Method Collection Time Receive d Time (Source) Location / / Volume Laterality Blood specimen 01/30/2019 6:05 AM 019 6:26 (specimen) EDT AM EDT Resulting Agency Comment Spec In Lab Edenilson Rosales MD CHEMISTRY ORDERABLES Performing Organization Address City/State/[place] [address] documented in this encounter [...] dose., Routine, Name of patient's Methadone clinic? [facility], Methadone clinic phone: , Date last Methadone [...] - Pro vider: Emerald Garcia RN) 0734 ([facility] Hold - Provider: Admin Adt - R [...] Provider: Iraida Townsend RN)1104 (Given - Provider: Iradia Townsend RN) 0.4-0.6 mg, Intravenous, EVERY 5 [...] Procedural area)1044 (NOV Unhold - Provider: Iraida Townsedn RN)1111 (Given - Provider: Iraida Townsend RN) [...] - Reason: Transfer to a Procedural area)1244 ([facility] Unhold - Provider: Admin Adt) 3 mg [...] first.
documented in this encounter Care Teams Adult Parole Officer Relationship Specialty Start Date End Date Linda Gunn APRN PCP - General Family Medicine 01/30/19 [address] [place] [address] documented as of this encounter
--- OUTSIDE RECORDS SUMMARY | 2022-07-17 05:14 | XMS_ITS | Encounter Summary ---
:1990 Author Organization [facility] Address [address] [place] [address] Care Team Providers Name Role Phone Timothy Bliss MD Primary Care Provider Encounter Details Date Type Department Care Team Description 12/19/2020 Lab Requisition [facility] Outr Resulting Lab, Pathology & Laboratory Provider [facility] [address], [place] [address] Social History Tobacco Use Types Packs/Day Years Used Date Smoking Tobacco: Never Assessed Sex Assigned at Date Recorded [...] Date/Time Associated Diagnosis Comme nts COVID-19 TEST [facility] Today 12/19/2020 7:50 EDT LAB PCR COVID-19 TESTING Routine 12/19/2020 7:50 EDT Resu lts for this procedure are i n the results section. documented in this encounter Results COVID-19 TEST [facility] LAB PCR (12/19/2020 7:50 EDT) Specimen Anatomical Location Collection Method Collection Time Received Time (Source) / Laterality / Volume Swab ENTIRE NASOPHARYNX 12/19/2020 7:50 2020 / Unknown EDT 15:53 EDT Provider Outr Resulting Lab MICROBIOLOGY - GENERAL ORD ERABLES Performing Organization Address City/State/ZIP Code Phon e Number [facility] [address] [place] [address] SERVICES COVID-19 TESTING (12/19/2020 7:50 EDT) Analysis Performed At Patho logist Time Signature COVID-19 Negative Negative 12/20/2020 [facility] rt-PCR Result 13:23 EDT [facility] SERVICES Comment: This test has not been FDA cleared or ap proved. This test has been authorized by FDA under an EUA for use by authorized laboratories. This test has been authorized only for detection of nucleic acid fro m 2019-nCoV, not for any other viruses o r pathogens. This test is only authorized for the duration of the declaration that circumstances exist justifying the authorization of emergency use of in vitro d iagnostic tests for detection and/or jeremi gnosis of 2019-nCoV under section 564(b)(1) of Act, 21 U.S.C ?? 360bbb-3(b) (1), unless the authorization is terminated or revoked sooner. Negative results do not preclude 2019-nC oV infection and should not be used as the sole basis for treatment or other patient management decisions. Negative results must be combined with clinical observa tions, patient history, and epidemiologi grace information. Testing was performed using the gorge SA RS-CoV-2 assay ([employer] on the Gorge 6800 System Performing Lab [employer]orge [address] [facility] 12/20/2020 13:23 E DT [facility] Lab LABORATORY SERVICES Specimen Anatomical Collection Method Collection Time Receive d Time (Source) Location / / Volume Laterality Swab 12/19/2020 7:50 12/19/2020 EDT 15:53 EDT Provider Outr Resulting Lab MICROBIOLOGY - GENERAL ORD ERABLES Performing Organization Address City/State/ZIP Code Phon e Number [facility] [address] [place] [address] SERVICES documented in this encounter Visit Diagnoses Not on filedocumented in this encounter Care Teams Health Diagnostics Teacher Relationship Specialty Start Date End Date Timothy Bliss MD PCP - General 12/08/17 [address] [place], [place] [address] documented as of this encounter
--- OUTSIDE RECORDS SUMMARY | 2022-07-17 05:14 | XMS_ITS | Encounter Summary ---
:1990 Author Organization [facility] [place] [address] Care Team Providers Name Role Phone Linda Gunn APRN Primary Care Provider Reason for Visit Auth/Cert Specialty Diagnoses / Procedures Referred By Contact Refer red To Contact Diagnoses Choledocholithiasis RUQ PAIN/ JAUNDICE Procedures EMERGENCY IPI Referral ID Status Reason Start Date Expiration Date Visits Requ ested Visits Authorized [id number] 1 1 Encounter Details Date Type Department Care Team Description 02/01/2019 Surgery Main Operating Room Jorden Hogan, LAPA ROSCOPIC Tegan Harrison MD CHOLECYSTECTOMY WITH [facility] CHOLANGIOGRAM (WRVU 11.47) [facility] [place] [address] [place] [address] [phone] Social History Tobacco Use Types Packs/Day Years [...] Ina Orellana Patient Age: 28 y.o. Language: Niuean Race: White Ethnicity: Not nor Admit date: [...] 101.3 F. The number for questions is [phone] before 5 PM weekdays and [phone] after 5 PM and weekends. Pain Medication: [...] will be mailed to you. Please call [phone] to confirm date and time of your appointment if you do not receive your apointment in 3 weeks. No future appointments. Future Appointments and Orders Future Appointments and Orders Future Appointments Provider Department Dept Phone 03/03/2019 9:30 AM Christiane Aviles APRN General Surgery at [place] Arrive at: [employer] Area 4L [phone] Inpatient Provider Contact Information: For questions regarding this document or issues relating to this hospitalization on the Medical Service, please contact your inpatient physician through the [facility] [employer]ined [employer] Quality Inspector . Issues after hours and on weekends [...] 101.3 F. The number for questions is [phone] before 5 PM weekdays and [phone] after 5 PM and weekends. Pain Medication: [...] will be mailed to you. Please call [phone] to confirm date and time of your [...] spent >30 minutes (Day of Discharge Code 14707) involved in the final examination of the [...] Cornell MSW - 02/02/2019 9:28 AM EDT MARINE STEAM FITTER HELPER met with pt to discuss support network and transportation home at time of dc. Pt reports that her mother's best friend fortino menjivar, and pt BF will be picking her up today @ 12. Pt has identified otto as a consistent support in her life. Pt also connected with [facility] Program ([address] [place] [id number] ) for medication assisted treatment with methodone administration. Pt attends counseling services through [facility] [employer] ([address] [facility]- [phone]) Melissa Vinson MD - 02/01/2019 6:07 PM [...] Care: Full Code Team Pager( Coverage 29/03): #[phone] PCP: Linda Gunn APRN [phone] Attestation: IPI Certification I certify that I [...] Care: Full Code Team Pager( Coverage 29/03): #[phone] PCP: Linda Gunn, ROAD OILING TRUCK DRIVER [phone] Attestation: IPI Certification I certify that I am a D-H credentialed attending provider with admitting privileges and that the patient meets or has met medical necessity to require an inpatient IPI level of care meeting a minimum of two midnights or is on the [facility] inpatient only procedure list (status C) [...] 01/31/2019 Pertinent Endoscopic Procedures/Reports: ERCP 01/30/19: ?The bus assistant film was normal. The esophagus was ?successfully [...] Dr. Owusu. Elías Lake MD Gastroenterology Fellow #[id number] Attending Addendum: I have seen and examined the patient with Dr. Lake. We reviewed the medical record and pertinent studies and imaging. My evaluation and physical examination confirms the above findings. The assessment and plan were formulated in discussion with me at the time of the encounter and I agree with them as documented. Francisco Owusu MD [facility] Gastroenterology Alexis Martinez RN - 01/31/2019 6:26 [...] Electronically signed by: Yrn Alvarenga Gastroenterology Fellow [facility] Pager [phone] 01/30/2019 Edenilson Rosales - 01/30/2019 4:41 AM EDT Inpatient Hospital Medicine - Admission Note Problem List: Active Hospital Problems Diagnosis ??? Choledocholithiasis Resolved Hospital Problems No resolved problems to display. There are no active non-hospital problems to display for this patient. ID: 28 y.o. Female presents to [facility] with abdominal pain History of Present Illness: [...] file Gets together: Not on file Attends restorationist service: Not on file Active member of [...] Miscellaneous Notes Consult Note - Bryce Franco, ROAD OILING TRUCK DRIVER - 02/02/2019 10:04 AM EDT BIT Evaluation Referral source: Nursing referral Reason for referral: Anxiety Disruptive behaviors Opioid Use Disorder Relevant history: Ms Orellana is a 28-year-old woman, mother of four, admitted with RUQ pain, nausea, and vomiting, now s/p ERCP. History of childhood trauma, IVDU currently in recovery with counseling and in Methadone assisted treatment at [facility]- current dose 105 mg daily. [...] with Methadone assisted treatment and counseling at [facility]. She also reports being engaged with psychiatric services at [facility] for over 10 years. Ms Orellana reports being motivated to abstain from IVDU with ongoing Methadone assisted treatment and counseling at [facility] and psychiatric services at [facility]. Additional substance use treamtment and relapse prevention resources were given and placed in her discharge instructions. Assessment: Ms Orellana is a 28-year-old woman, mother of four, admitted with RUQ pain, nausea, and vomiting, now s/p ERCP. History of childhood trauma, IVDU currently in recovery with counseling and in Methadone assisted treatment at [facility]- current dose 105 mg daily. Reports being stable on current Methadone dosage, no acute safety concerns. Motivated to maintain abstinence from IVDU with ongoing Methadone assisted treatment and counseling at [facility] and psychiatric services at [facility]. Additional substance use treamtment and relapse prevention resources were given and placed in her discharge instructions. Interventions delivered: Motivational interviewing Supportive therapy Plan: 1. Patient plans to maintain abstinence from IVDU with ongoing Methadone assisted treatment and counseling at [facility] and psychiatric services at [facility]. Medication Assisted Treatment Plan (select yes if referral reason indicates AUD, OUD or PATRIA - other): Yes. Substance use of focus: Opioid Was patient already on a medication to treat OUD prior to admission? Yes. Prescribed buprenorphine, street buprenorphine, methadone, naltrexone Outpatient MAT continued - [contact made on 01/31/19 per primary team (date) with [facility]/[phone]]. Discharge Planning Needs: Additional substance use treatment [...] General surgery to sign off. Please page [phone] with questions/concerns Chirag Mayers MD Surgery Resident [...] extending 1.5 inches down from umbilical incision,night BELT OPERATOR notified. IV antibiotics infused as ordered. Pt [...] Hogan MD - 02/01/2019 10:07 AM EDT [facility] Operative Note Name: Ina Orellana : 1990 Date of surgery: 02/01/2019 Surgeon: Jorden Hogan MD physician's assistant: Chas Soni MD Preoperative dx: Ascending [...] a combination of careful blunt dissection, suction ammonia box tender technique, and judicious electrocautery; critical view of [...] from the abdomen. A 5 mm clip legal coordinator was then used to place 2 clips [...] 0 -- Score -- 35 -- OTHER Jodran Fall Risk -- Med -- Restraint Interventions [...] ERCP performed by Weston Dixon MD at [facility] Social History: Social History Socioeconomic History [...] on phone: None Gets together: None Attends restorationist service: None Active member of club or [...] lap cholecystectomy tomorrow. Please keep NPO @ MD. Risks and benefits discussed with patientand she [...] in the last 7068 hours. Invalid input(s): [id number] Heme: No results for input(s): LDH, HAPTOGLOBIN, URICACID in the last 168 hours. No results for input(s): FERRITIN, IRON, TIBC, IRONSAT, SOLTRNRCPT in the last 168 hours.] ABG: ABG (Arterial Blood Gas) No results found for: PHART, PO2ART, WZT4FIN, HRS6BPN Microbiology: Microbiology Results (Last 30 days) No [...] Code Status: full Jorden Randall 01/31/2019 Pager [phone] Initial Assessments - Stacy De Oliveira RN [...] file Other Pertinent/Service Specific Information: Referral to [facility] Health/Prescription Coverage: Primary Insurance: MEDICAID [place] Secondary Insurance: N/A Prescription Coverage: Yes Preferred Pharmacy: unknown Other: n/a Primary Care Provider: Linda Gunn APRN [phone] Patient/Caregiver Goals of Treatment: not discussed Potential Needs for Transition of Care: Rehab/SNF: Not indicated Home Health: Not indicated DME: None Dialysis: n/a Community Resources: n/a Transportation: patient to find friend/family, has [place] medicaid and came from other hospital via ambulance Other: n/a Anticipated Barriers to Discharge/Special Considerations: None identified. Referral to [employer] due to hxIV drug use on [...] care planning. Stacy De Oliveira RN Pager: [phone] Plan of Care - Donita Fraser RN [...] ??? sodium chloride 0.9% 1,000 mL (01/30/19 4854) hydrOXYzine, sodium chloride 0.9 %, lidocaine, ondansetron [...] file Gets together: Not on file Attends restorationist service: Not on file Active member of [...] XR ERCP Imaging Storage Only Routine Once NM N (for Radiant use) for 1 Occurrenc [...] section. TYPE AND SCREEN Routine 02/01/2019 6:20 ([facility]/CGP/SABA) AM EDT HEPATIC FUNCTION PANEL Routine 02/01/2019 [...] EDT) athologist Signature Neutrophils % 60.5 % [facility]OR[facility] Neutr Abs (ANC) 5.27 1.70 - [facility] 6.10 [facility] x10(3)/[facility] LABORATORY Lymphocytes % 33.9 % [facility] Lymphocytes Abs 3.0 0.9 - 3.2 [facility] x10(3)/[facility] LABORATORY Monocytes % 4.5 % [facility] Monocyte Abs 0.4 0.3 - 0.9 [facility] x10(3)/[facility] LABORATORY Eosinophils % 0.2 % [facility] Eosinophils Abs 0.0 0.0 - 0.4 [facility] x10(3)/[facility] LABORATORY Basophils % 0.6 % [facility] Basophils Abs 0.0 0.0 - 0.1 [facility] x10(3)/[facility] LABORATORY Immature Gran % 0.30 % [facility] Comment: Immature granulocytes(IG's)percentage an d absolute count will include metamyelocytes, myelocytes, and promyelo cytes. Blood smears from CBCs yielding IG's will be scanned manually for concor dance. If this scan disagrees with the automated IG or if promyelocytes are not ed, a manual differential will be performed. Jaz Gran Abs 0.03 0.00 - 0.04 x10(3)/[facility] LABORATORY Specimen Anatomical Collection Method Collection Time Receive d Time (Source) Location / / Volume Laterality Blood specimen 02/02/2019 6:06 AM 019 6:46 (specimen) EDT AM EDT Resulting Agency Comment Spec In Lab Chas Soni MD HEMATOLOGY ORDERABLES Performing Organization Address City/State/[place] [address] (ABNORMAL) Hemogram (02/02/2019 6:06 AM EDT) Analysis Performed At Patho logist Time Signature WBC 8.7 4.0 - 9.5 [facility] x[facility](3[facility] LABORATORY RBC 3.81 (L) 4.00 - [place] 5.21 [facility] x10(6)/[facility] LABORATORY Hemoglobin 10.7 (L) 11.7 - [place] 15.5 gm/dL [facility] LAB[facility] Hematocrit 33.1 (L) 35.7 - [facility] 45.8 % [facility] MCV 86.9 82.6 - [facility] 94.4 [facility] LABORATORY MCH 28.1 27.1 - [place] 32.0 pg [facility] MCHC 32.3 31.7 - [facility] 35.0 gm/dL [facility] Platelets 266 145 - 357 [facility] x10(3)/[facility] LABORATORY RDWSD 49.6 (H) 37.0 - [facility] 46.0 [facility] LABORATORY RDWCV 15.7 (H) 11.5 - [facility] 14.1 % [facility] LABORATORY MPV 11.1 7.6 - 12.9 [facility] nRBC % Auto 0.0 % [facility] nRBC Abs Auto 0.000 0.000 - [place] 0.000 [facility] x10(3)/[facility] LABORATORY Specimen Anatomical Collection Method Collection Time Receive d Time (Source) Location / / Volume Laterality Blood specimen 02/02/2019 6:06 AM 019 6:46 (specimen) EDT AM EDT Resulting Agency Comment Spec In Lab Chas Soni MD HEMATOLOGY ORDERABLES Performing Organization Address City/State/[place] [address] (ABNORMAL) Hepatic Function Panel (02/02/2019 6:06 AM EDT) athologist Signature Total Protein 6.2 6.1 - 8.0 [facility] gm/dL [facility] Albumin 3.5 3.2 - 5.2 [facility] gm/dL [facility] AST 30 0 - 30 [facility] unit/L [facility] ALT 71 (H) 0 - 30 [facility] unit/L [facility] Alk Phos 162 (H) 40 - 104 [facility] unit/L [facility] Total 1.4 (H) 0.2 - 1.3 [facility] Bilirubin mg/dL [facility] LABOR[facility] Bili, Direct 0.8 (H) 0.0 - 0.3 [facility] mg/dL [facility] Specimen Anatomical Collection Method Collection Time Receive d Time (Source) Location / / Volume Laterality Blood specimen 02/02/2019 6:06 AM 019 6:46 (specimen) EDT AM EDT Resulting Agency Comment Spec In Lab Melissa Vinson MD CHEMISTRY ORDERABLES Performing Organization Address City/State/[place] [address] Basic Metabolic Panel (non-fasting) (02/02/2019 6:06 AM EDT) athologist [facility] Glucose Lvl 99 65 - 199 [facility] mg/dL [facility] Comment: Diabetes: >=200 mg/dL plus symp toms BUN 8 8 - 18 mg/dL [facility] LABORATORY Creatinine 0.70 0.70 - 1.20 mg/dL [facility] LABOR[facility] Sodium 141 135 - 145 mmol/L [facility]OR[facility] Potassium 3.5 3.5 - 5.0 mmol/L [facility] LABOR[facility]ORY Comment: Please note: ??Patients with WBC >100,00 0 may have falsely elevated Potassium levels. ??For accurate Potassium quantif ication in these patients send serum separator tube (gold top) for subsequent determinations. ??Contact the Clinical Chemistry Laboratory if there are any qu estions. Chloride 102 98 - 107 mmol/L [facility] CO2 28 22 - 31 mmol/L [facility] Anion Gap 11 5 - 15 mmol/L [facility] LABORATORY Calcium 8.7 8.5 - 10.5 mg/dL [facility] LABOR[facility]ORY Estimated GFR 117 >=60 mL/min/1.73 m?? [facility] Comment: The eGFR was calculated using the CKD-EP I equation. As with all creatinine based estimates of kidney function, eGFR values calculated with the CKD-EPI equation are not accurate in patients wi th acute kidney failure, extremes of body mass or the acutely ill. http://[employer] eGFR 136 >=60 mL/min/1.73 m?? [facility] Comment: The eGFR was calculated using the CKD-EP I equation. As with all creatinine based estimates of kidney function, eGFR values calculated with the CKD-EPI equation are not accurate in patients wi th acute kidney failure, extremes of body mass or the acutely ill. http://[employer]MCnkf Specimen Anatomical Collection Method Collection Time Receive d Time (Source) Location / / Volume Laterality Blood specimen 02/02/2019 6:06 AM 019 6:46 (specimen) EDT AM EDT Resulting Agency Comment Spec In Lab Melissa Vinson MD CHEMISTRY ORDERABLES Performing Organization Address City/State/[place] [address] Surgical Pathology Report (02/01/2019 10:14 AM EDT) Component Value Ref Test Analysis Performed At [facility] gist Range Method Time Signature Surgical [id number] ? Location: 3EST; 0330; [facility] Report The signing pathologist has (i) examined the relevant preparation(s) for the [facility] specimen(s) and (ii) rendered or confirmed the diagnosis(es) . HOSPITAL LABORATORY . ?Surgic al Pathology DIAGNOSIS Gallbladder, cholecystectomy: - Hyalinizing chronic cholecystitis. - ??Cholelithiasis. Electronically signed by: ??Heriberto Maier MD Verified: ??02/03/2019 ?Pathologist Performed at: ??-[facility] Dept. of Pathology, [place], [place] CLINICAL INFORMATION Specimen Submitted: A - [...] The hepatic margin is inked black Sections/Processing: Plan Checker sections in 3 cassettes as follows: ?A1: ??cystic duct margin and appliance service representative mucosa. ?A2-A3: ??Additional sections of mucosa ??pps Specimen (Source) Anatomical Collection Method Collection Time Re ceived Time Location / / Volume Laterality 02/01/2019 10:14 AM EDT Jorden Hogan MD PATHOLOGY/CYTOLOGY ORDERABLE S Performing Organization Address City/State/[place] [address] Specimen to Pathology (02/01/2019 9:46 AM EDT) Specimen Anatomical Collection Method Collection Time Receive d Time (Source) Location / / Volume Laterality AP Specimen 02/01/2019 9:46 AM 9 9:46 EDT AM EDT Narrative [facility] ORY - 02/01/2019 9:46 AM EDT Specimen requisition ordered. ??Separate Pathology report to follow Jorden Hogan MD PATHOLOGY/CYTOLOGY ORDERABLE S Performing Organization Address City/[facility]/ZIP Code Phon e Number [address] XR Fluoro No Rad [...] Phon e Number DH RAD DH RAD [place], [place] ABORH Recheck Status (02/01/2019 6:20 AM EDT) [facility] Method Time Signature ABORH Recheck Order Placed [facility] LABORATORY ABORH Type Complete [facility] LABORATORY Specimen Anatomical Collection Method Collection Time Receive d Time (Source) Location / / Volume Laterality Blood specimen 02/01/2019 6:20 AM 019 7:06 (specimen) EDT AM EDT Resulting Agency Comment Spec In Lab Melissa Vinson MD BLOOD BANK ORDERABLES Performing Organization Address City/[facility]/[place] [address] Antibody screen (02/01/2019 6:20 AM EDT) [facility] Method Time Signature Ab Screen Negative [facility] LABORATORY Expires at 02/04/2019 [facility] [id number] on: [facility] LABORATORY Specimen Anatomical Collection Method Collection Time Receive d Time (Source) Location / / Volume Laterality Blood specimen 02/01/2019 6:20 AM 019 7:06 (specimen) EDT AM EDT Resulting Agency Comment Spec In Lab Melissa Vinson MD BLOOD BANK ORDERABLES Performing Organization Address City/[facility]/[place] [address] ABO/Rh Typing (02/01/2019 6:20 AM EDT) P athologist Signature ABORh Type O Pos [facility] LABORATORY Specimen Anatomical Collection Method Collection Time Receive d Time (Source) Location / / Volume Laterality Blood specimen 02/01/2019 6:20 AM 019 7:06 (specimen) EDT AM EDT Resulting Agency Comment Spec In Lab Melissa Vinson MD BLOOD BANK ORDERABLES Performing Organization Address City/State/[place] [address] (ABNORMAL) Differential, Automated (02/01/2019 6:20 AM EDT) Patholo gist Method Time Signature Neutrophils % 69.9 % [facility]OR[facility]ORY Neutr Abs (ANC) 6.33 (H) 1.70 - [facility] 6.10 [facility] x10(3)/[facility] LABORATORY Lymphocytes % 25.9 % [facility] LABORATORY Lymphocytes Abs 2.4 0.9 - 3.2 [facility] x10(3)/[facility] LABORATORY Monocytes % 2.9 % [facility] LABORATORY Monocyte Abs 0.3 0.3 - 0.9 [facility] x10(3)/[facility] LABORATORY Eosinophils % 0.3 % [facility] LABOR[facility]ORY Eosinophils Abs 0.0 0.0 - 0.4 [facility] x10(3)/[facility] LABORATORY Basophils % 0.4 % [facility] LABOR[facility]ORY Basophils Abs 0.0 0.0 - 0.1 [facility] x10(3)/[facility] LABORATORY Immature Gran % 0.60 % [facility] Comment: Immature granulocytes(IG's)percentage an d absolute count will include metamyelocytes, myelocytes, and promyelo cytes. Blood smears from CBCs yielding IG's will be scanned manually for concor dance. If this scan disagrees with the automated IG or if promyelocytes are not ed, a manual differential will be performed. Jaz Gran Abs 0.05 (H) 0.00 - 0.04 x10(3)/[facility] LABORATORY Specimen Anatomical Collection Method Collection Time Receive d Time (Source) Location / / Volume Laterality Blood specimen 02/01/2019 6:20 AM 019 6:29 (specimen) EDT AM EDT Resulting Agency Comment Spec In Lab Edenilson Rosales MD HEMATOLOGY ORDERABLES Performing Organization Address City/State/[place] [address] (ABNORMAL) Hemogram (02/01/2019 6:20 AM EDT) Analysis Performed At Patho logist Time Signature WBC 9.1 4.0 - 9.5 [facility] x10(3)/[facility] LABORATORY RBC 3.74 (L) 4.00 - [place] 5.21 [facility] x10(6)/[facility] LABORATORY Hemoglobin 10.7 (L) 11.7 - [place] 15.5 gm/dL [facility] LABORATORY Hematocrit 32.9 (L) 35.7 - [facility] 45.8 % [facility] LABOR[facility]ORY MCV 88.0 82.6 - [facility] 94.4 [facility] LABORATORY MCH 28.6 27.1 - [place] 32.0 pg [facility] LABORATORY MCHC 32.5 31.7 - [facility] 35.0 gm/dL [facility] Platelets 245 145 - 357 [facility] x10(3)/[facility] LABORATORY RDWSD 49.1 (H) 37.0 - [facility] 46.0 [facility] LABORATORY RDWCV 15.5 (H) 11.5 - [facility] [place] 14.1 % [facility] LABORATORY MPV 10.6 7.6 - 12.9 [facility]ORY nRBC % Auto 0.0 % [facility] LABORATORY nRBC Abs Auto 0.000 0.000 - [place] [employer] 0.000 [facility] x10(3)/[facility] LABORATORY Specimen Anatomical Collection Method Collection Time Receive d Time (Source) Location / / Volume Laterality Blood specimen 02/01/2019 6:20 AM 019 6:29 (specimen) EDT AM EDT Resulting Agency Comment Spec In Lab Edenilson Rosales MD HEMATOLOGY ORDERABLES Performing Organization Address City/State/[place] [address] (ABNORMAL) Hepatic Function Panel (02/01/2019 6:20 AM EDT) athologist Signature Total Protein 6.0 (L) 6.1 - 8.0 [facility] gm/dL [facility] Albumin 3.3 3.2 - 5.2 [facility] gm/dL [facility] AST 33 (H) 0 - 30 [facility] unit/L [facility] ALT 88 (H) 0 - 30 [facility] unit/L [facility] Alk Phos 179 (H) 40 - 104 [facility] unit/L [facility] Total 1.8 (H) 0.2 - 1.3 [facility] Bilirubin mg/dL [facility] Bili, Direct 1.0 (H) 0.0 - 0.3 [facility] mg/dL [facility] Comment: result rechecked-es Specimen Anatomical Collection Method Collection Time Receive d Time (Source) Location / / Volume Laterality Blood specimen 02/01/2019 6:20 AM 019 6:29 (specimen) EDT AM EDT Resulting Agency Comment Spec In Lab Melissa Vinson MD CHEMISTRY ORDERABLES Performing Organization Address City/State/ZIP Code Phon e Number [address] (ABNORMAL) Basic Metabolic Panel (non-fasting) (02/01/2019 6:20 AM EDT) athologist [facility] Glucose Lvl 117 65 - 199 [facility] mg/dL [facility] Comment: Diabetes: >=200 mg/dL plus symp toms BUN 6 (L) 8 - 18 mg/dL [facility] Creatinine 0.80 0.70 - 1.20 mg/dL [facility] Sodium 143 135 - 145 mmol/L [facility] Potassium 3.6 3.5 - 5.0 mmol/L [facility] Comment: Please note: ??Patients with WBC >100,00 0 may have falsely elevated Potassium levels. ??For accurate Potassium quantif ication in these patients send serum separator tube (gold top) for subsequent determinations. ??Contact the Clinical Chemistry Laboratory if there are any qu estions. Chloride 108 (H) 98 - 107 mmol/L [facility] CO2 24 22 - 31 mmol/L [facility] Anion Gap 11 5 - 15 mmol/L [facility] Calcium 8.6 8.5 - 10.5 mg/dL [facility] Estimated GFR 100 >=60 mL/min/1.73 m?? [facility] Comment: The eGFR was calculated using the CKD-EP I equation. As with all creatinine based estimates of kidney function, eGFR values calculated with the CKD-EPI equation are not accurate in patients wi th acute kidney failure, extremes of body mass or the acutely ill. [email or web address] eGFR 115 >=60 mL/min/1.73 m?? [facility] Comment: The eGFR was calculated using the CKD-EP I equation. As with all creatinine based estimates of kidney function, eGFR values calculated with the CKD-EPI equation are not accurate in patients wi th acute kidney failure, extremes of body mass or the acutely ill. [email or web address] Specimen Anatomical Collection Method Collection Time Receive d Time (Source) Location / / Volume Laterality Blood specimen 02/01/2019 6:20 AM 019 6:29 (specimen) EDT AM EDT Resulting Agency Comment Spec In Lab Melissa Vinson MD CHEMISTRY ORDERABLES Performing Organization Address City/State/[place] [address] C. Difficile Screen (01/31/2019 6:13 AM EDT) Analysis Performed At Patho logist Time Signature C Diff Screen Negative Negative [facility] Comment: C. diff ??Negative Clostridium [...] - GENERAL ORDER CURTIS Performing Organization Address City/[facility]/[place] [address] (ABNORMAL) Hepatic Function Panel (01/31/2019 3:51 AM EDT) P athologist Signature Total Protein 7.1 6.1 - 8.0 [facility] gm/dL [facility] Albumin 3.7 3.2 - 5.2 [facility] gm/dL [facility] AST 78 (H) 0 - 30 [facility] unit/L [facility] ALT 124 (H) 0 - 30 [facility] Alk Phos 244 (H) 40 - 104 [facility] unit/L [facility] Total 5.2 (H) 0.2 - 1.3 [facility] Bilirubin mg/dL [facility] Bili, Direct 4.1 (H) 0.0 - 0.3 [facility] mg/dL [facility] Specimen Anatomical Collection Method Collection Time Receive d Time (Source) Location / / Volume Laterality Blood specimen 01/31/2019 3:51 AM 019 4:02 (specimen) EDT AM EDT Resulting Agency Comment Spec In Lab Edenilson Rosales MD CHEMISTRY ORDERABLES Performing Organization Address City/[facility]/[place] [address] (ABNORMAL) Differential, Automated (01/31/2019 3:51 AM EDT) Patholo gist Method Time Signature Neutrophils % 89.3 % [facility] Neutr Abs (ANC) 8.14 (H) 1.70 - [facility] 6.10 [facility] x10(3)/[facility] LABORATORY Lymphocytes % 9.4 % [facility] Lymphocytes Abs 0.9 0.9 - 3.2 [facility] x10(3)/[facility] LABORATORY Monocytes % 0.9 % [facility] Monocyte Abs 0.1 (L) 0.3 - 0.9 [facility] x10(3)/[facility] LABORATORY Eosinophils % 0.0 % [facility] Eosinophils Abs 0.0 0.0 - 0.4 [facility] x10(3)/[facility] LABORATORY Basophils % 0.1 % [facility] Basophils Abs 0.0 0.0 - 0.1 [facility] x10(3)/[facility] LABORATORY Immature Gran % 0.30 % [facility] Comment: Immature granulocytes(IG's)percentage an d absolute count will include metamyelocytes, myelocytes, and promyelo cytes. Blood smears from CBCs yielding IG's will be scanned manually for concor dance. If this scan disagrees with the automated IG or if promyelocytes are not ed, a manual differential will be performed. Jaz Gran Abs 0.03 0.00 - 0.04 x10(3)/[facility] Specimen Anatomical Collection Method Collection Time Receive d Time (Source) Location / / Volume Laterality Blood specimen 01/31/2019 3:51 AM 019 4:02 (specimen) EDT AM EDT Resulting Agency Comment Spec In Lab Edenilson Rosales MD HEMATOLOGY ORDERABLES Performing Organization Address City/State/[place] [address] (ABNORMAL) Hemogram (01/31/2019 3:51 AM EDT) Analysis Performed At Patho logist Time Signature WBC 9.1 4.0 - 9.5 [facility] x10(3)/[facility] LABORATORY RBC 4.41 4.00 - [facility] 5.21 [facility] x10(6)/[facility] LABORATORY Hemoglobin 12.5 11.7 - [facility] 15.5 gm/dL [facility] Hematocrit 38.0 35.7 - [facility] 45.8 % [facility] MCV 86.2 82.6 - [facility] 94.4 fL [facility] MCH 28.3 27.1 - [facility] 32.0 pg [facility] MCHC 32.9 31.7 - [facility] 35.0 gm/dL [facility] Platelets 292 145 - 357 [facility] x10(3)/[facility] LABORATORY RDWSD 46.7 (H) 37.0 - [facility] 46.0 [facility] LABORATORY RDWCV 14.6 (H) 11.5 - [facility] 14.1 % [facility] MPV 11.0 7.6 - 12.9 [facility] LABORATORY nRBC % Auto 0.0 % [facility] nRBC Abs Auto 0.000 0.000 - [facility] 0.000 [facility] x10(3)/[facility] LABORATORY Specimen Anatomical Collection Method Collection Time Receive d Time (Source) Location / / Volume Laterality Blood specimen 01/31/2019 3:51 AM 019 4:02 (specimen) EDT AM EDT Resulting Agency Comment Spec In Lab Edenilson Rosales MD HEMATOLOGY ORDERABLES Performing Organization Address City/State/[place] [address] (ABNORMAL) Basic Metabolic Panel (non-fasting) (01/31/2019 3:51 AM EDT) athologist Signature Glucose Lvl 217 (H) 65 - 199 [facility] mg/dL [facility] Comment: delta result rechecked-KLA Diabetes: >=200 mg/dL plus symptoms BUN 4 (L) 8 - 18 mg/dL [facility] Creatinine 0.70 0.70 - 1.20 mg/dL [facility] Sodium 140 135 - 145 mmol/L [facility] Potassium 4.2 3.5 - 5.0 mmol/L [facility] Comment: Please note: ??Patients with WBC >100,00 0 may have falsely elevated Potassium levels. ??For accurate Potassium quantif ication in these patients send serum separator tube (gold top) for subsequent determinations. ??Contact the Clinical Chemistry Laboratory if there are any qu estions. Chloride 106 98 - 107 mmol/L [facility] CO2 23 22 - 31 mmol/L [facility] Anion Gap 11 5 - 15 mmol/L [facility] Calcium 9.1 8.5 - 10.5 mg/dL [facility] Estimated GFR 117 >=60 mL/min/1.73 m?? [facility] Comment: The eGFR was calculated using the CKD-EP I equation. As with all creatinine based estimates of kidney function, eGFR values calculated with the CKD-EPI equation are not accurate in patients wi th acute kidney failure, extremes of body mass or the acutely ill. [email or web address] LAWTONnkf eGFR 136 >=60 mL/min/1.73 m?? [facility] Comment: The eGFR was calculated using the CKD-EP I equation. As with all creatinine based estimates of kidney function, eGFR values calculated with the CKD-EPI equation are not accurate in patients wi th acute kidney failure, extremes of body mass or the acutely ill. [email or web address] Specimen Anatomical Collection Method Collection Time Receive d Time (Source) Location / / Volume Laterality Blood specimen 01/31/2019 3:51 AM 019 4:02 (specimen) EDT AM EDT Resulting Agency Comment Spec In Lab Melissa Vinson MD CHEMISTRY ORDERABLES Performing Organization Address City/State/[place] [address] ERCP (01/30/2019 11:09 AM EDT) Component Value Ref Test Analysis Performed At [facility] Range Method Time Signature ERCP [facility] Endoscopy Procedure Date: 01/30/2019 11:09 AM ? Patient Name: Ina Orellana ? Date of : 1990 ? Age: 28 ? Order #: [id number] ? Instrument Name: [id number] ? Procedure: ? ERCP Indications: ? Bile duct stone(s), Abdominal pain of ? suspected biliary origin, Rashardu eleonora, ? Elevated liver enzymes, dilat ed CBD ? on CT scan Providers: ? Weston Dixon MD, Sonia Castro, ? Imtiaz Bai RN, Lyudmila Stark, ? Build Technician Referring MD: ? Medicines: ? Propofol per [...] the procedure well. ? Findings: ? The bus assistant film was normal. The esophagus was ? [...] Unknown GENERAL SURGICAL ORDERABLES Performing Organization Address [facility]/ZIP Code Phon e Number PROVATION Blood culture (01/30/2019 7:21 AM EDT) Patholo gist Method Time Signature Blood Culture No growth TEGAN HARRISON at 5 days. [facility] Specimen Anatomical Collection Method Collection Time Receive d Time (Source) Location / / Volume Laterality Blood specimen STRUCTURE OF RIGHT 01/30/2019 7:21 AM 0 01/30/2019 7:21 (specimen) FOREARM / Unknown EDT AM EDT Resulting Agency Comment Spec In Lab Edenilson Rosales MD MICROBIOLOGY - BLOOD ORDERAB LES Performing Organization Address City/[facility]/ZIP Code Phon [place] [address] Lipase (01/30/2019 6:05 AM EDT) P athologist Signature Lipase 9 0 - 60 TEGAN HARRISON unit/L [facility] Specimen Anatomical Collection Method Collection Time Receive d Time (Source) Location / / Volume Laterality Blood specimen Venous Draw / 01/30/2019 6:05 AM 2018 6:28 (specimen) Unknown EDT AM EDT Resulting Agency Comment Spec In Lab Edenilson Rosales MD CHEMISTRY ORDERABLES Performing Organization Address [facility]/State/[place] [address] Differential, Automated (01/30/2019 6:05 AM EDT) P athologist Signature Neutrophils % 70.2 % [facility] Neutr Abs (ANC) 4.50 1.70 - [facility] 6.10 [facility] x10(3)/[facility] LABORATORY Lymphocytes % 22.7 % [facility] Lymphocytes Abs 1.4 0.9 - 3.2 [facility] x10(3)/[facility] LABORATORY Monocytes % 4.5 % [facility] Monocyte Abs 0.3 0.3 - 0.9 [facility] x10(3)/[facility] LABORATORY Eosinophils % 1.9 % [facility] Eosinophils Abs 0.1 0.0 - 0.4 [facility] x10(3)/[facility] LABORATORY Basophils % 0.5 % [facility] Basophils Abs 0.0 0.0 - 0.1 [facility] x10(3)/[facility] LABORATORY Immature Gran % 0.20 % [facility] Comment: Immature granulocytes(IG's)percentage an d absolute count will include metamyelocytes, myelocytes, and promyelo cytes. Blood smears from CBCs yielding IG's will be scanned manually for concor dance. If this scan disagrees with the automated IG or if promyelocytes are not ed, a manual differential will be performed. Jaz Gran Abs 0.01 0.00 - 0.04 x10(3)/[facility] LABORATORY Specimen Anatomical Collection Method Collection Time Receive d Time (Source) Location / / Volume Laterality Blood specimen 01/30/2019 6:05 AM 019 6:26 (specimen) EDT AM EDT Resulting Agency Comment Spec In Lab Edenilson Rosales MD HEMATOLOGY ORDERABLES Performing Organization Address City/State/[place] [address] (ABNORMAL) Hemogram (01/30/2019 6:05 AM EDT) Analysis Performed At Patho logist Time Signature WBC 6.4 4.0 - 9.5 [facility] x10(3)/[facility] LABORATORY RBC 4.16 4.00 - [facility] 5.21 [facility] x10(6)/[facility] LABORATORY Hemoglobin 11.6 (L) 11.7 - [facility] 15.5 gm/dL [facility] Hematocrit 35.3 (L) 35.7 - [facility] 45.8 % [facility] MCV 84.9 82.6 - [facility] 94.4 [facility] LABORATORY MCH 27.9 27.1 - [facility] 32.0 pg [facility]ORY MCHC 32.9 31.7 - [facility] 35.0 gm/dL [facility] Platelets 278 145 - 357 [facility] x10(3)/[facility] LABORATORY RDWSD 45.7 37.0 - [facility] 46.0 [facility] LABORATORY RDWCV 14.6 (H) 11.5 - [facility] 14.1 % [facility] LABORATORY MPV 10.5 7.6 - 12.9 [facility] LABORATORY nRBC % Auto 0.0 % [facility]OR[facility]ORY nRBC Abs Auto 0.000 0.000 - [facility] 0.000 [facility] x10(3)/[facility] LABORATORY Specimen Anatomical Collection Method Collection Time Receive d Time (Source) Location / / Volume Laterality Blood specimen 01/30/2019 6:05 AM 019 6:26 (specimen) EDT AM EDT Resulting Agency Comment Spec In Lab Edenilson Rosales MD HEMATOLOGY ORDERABLES Performing Organization Address City/State/[place] [address] (ABNORMAL) Hepatic Function Panel (01/30/2019 6:05 AM EDT) P athologist Signature Total Protein 6.8 6.1 - 8.0 [facility] gm/dL [facility] Albumin 3.8 3.2 - 5.2 [facility] gm/dL [facility] AST 73 (H) 0 - 30 [facility] unit/L [facility] ALT 128 (H) 0 - 30 [facility] unit/L [facility] Alk Phos 235 (H) 40 - 104 [facility] unit/L [facility] Total 6.8 (H) 0.2 - 1.3 [facility] Bilirubin mg/dL [facility] Bili, Direct 5.7 (H) 0.0 - 0.3 [facility] mg/dL [facility] Specimen Anatomical Collection Method Collection Time Receive d Time (Source) Location / / Volume Laterality Blood specimen 01/30/2019 6:05 AM 019 6:26 (specimen) EDT AM EDT Resulting Agency Comment Spec In Lab Edenilson Rosales MD CHEMISTRY ORDERABLES Performing Organization Address City/[facility] Code Phon e Number [address] Hepatitis C RNA, quantitative, PCR (01/30/2019 6:05 AM EDT) Component Value Ref Test Analysis Performed At [facility] Range Method Time Signature HCV Viral <12 IU/mL [facility] LABORATORY HCV Viral Result: <12 IU/mL(Target Not Detected) [facility] Indication for Study: Hepatitis C Infection [facility] Analysis: The [employer] RealTime HCV assay is an in vitro reverse party plan selling distributor LABORATORY polymerase chain reaction (RT-PCR)for the quantitation [...] Rosales MD IMMUNOLOGY ORDERABLES Performing Organization Address City/[facility]/ZIP Code Phon e Number [address] Blood culture (01/30/2019 6:05 AM EDT) Patholo gist Method Time Signature Blood Culture No growth TEGAN HARRISON at 5 days. [facility]OR[facility]ORY Specimen Anatomical Collection Method Collection Time Receive d Time (Source) Location / / Volume Laterality Blood specimen STRUCTURE OF LEFT 01/30/2019 6:05 AM 7:21 (specimen) HAND / Unknown EDT AM EDT Resulting Agency Comment Spec In Lab Edenilson Rosales MD MICROBIOLOGY - BLOOD ORDERAB LES Performing Organization Address City/[facility]/[place] [address] (ABNORMAL) APTT (01/30/2019 6:05 AM EDT) P athologist Signature PTT 38 (H) 25 - 37 sec [facility] Comment: The PTT is NOT [...] Rosales MD HEMATOLOGY ORDERABLES Performing Organization Address City/[facility]/ZIP [facility] [place] [address] (ABNORMAL) Prothrombin Time (01/30/2019 6:05 AM EDT) P athologist Signature PT 12.6 (H) 9.4 - 12.5 [facility] LABORATORY INR 1.1 [facility]OR[facility]ORY Comment: An INR <2.0 indicates [...] Rosales MD HEMATOLOGY ORDERABLES Performing Organization Address City/[facility]/ZIP Code Phon e Number [address] (ABNORMAL) Phosphorus (01/30/2019 6:05 AM EDT) athologist Signature Phosphorus 2.4 (L) 2.5 - 4.5 [facility]/dL [facility]OR[facility]ORY Specimen Anatomical Collection Method Collection Time Receive d Time (Source) Location / / Volume Laterality Blood specimen 01/30/2019 6:05 AM 019 6:26 (specimen) EDT AM EDT Resulting Agency Comment Spec In Lab Edenilson Rosales MD CHEMISTRY ORDERABLES Performing Organization Address City/[facility]/[place] [address] Magnesium (01/30/2019 6:05 AM EDT) athologist Signature Magnesium 0.73 0.69 - 1.07 [facility] mmol/L [facility] LABOR[facility]ORY Specimen Anatomical Collection Method Collection Time Receive d Time (Source) Location / / Volume Laterality Blood specimen 01/30/2019 6:05 AM 019 6:26 (specimen) EDT AM EDT Resulting Agency Comment Spec In Lab Edenilson Rosales MD CHEMISTRY ORDERABLES Performing Organization Address City/[facility]/ZIP [facility] [place] [address] (ABNORMAL) Basic Metabolic Panel (non-fasting) (01/30/2019 6:05 AM EDT) athologist Signature Glucose Lvl 70 65 - 199 [facility] mg/dL [facility]ORY Comment: Diabetes: >=200 mg/dL plus symp toms BUN 6 (L) 8 - 18 mg/dL [facility] LABORATORY Creatinine 0.63 (L) 0.70 - 1.20 mg/dL [facility] LABOR[facility]ORY Sodium 141 135 - 145 mmol/L [facility] LABORATORY Potassium 3.5 3.5 - 5.0 mmol/L [facility] LABORATORY Comment: Please note: ??Patients with WBC >100,00 0 may have falsely elevated Potassium levels. ??For accurate Potassium quantif ication in these patients send serum separator tube (gold top) for subsequent determinations. ??Contact the Clinical Chemistry Laboratory if there are any qu estions. Chloride 104 98 - 107 mmol/L [facility] LABORATORY CO2 23 22 - 31 mmol/L [facility] Anion Gap 14 5 - 15 mmol/L [facility] LABORATORY Calcium 8.4 (L) 8.5 - 10.5 mg/dL [facility] LABORATORY Estimated GFR 121 >=60 mL/min/1.73 m?? [facility] Comment: The eGFR was calculated using the CKD-EP I equation. As with all creatinine based estimates of kidney function, eGFR values calculated with the CKD-EPI equation are not accurate in patients wi th acute kidney failure, extremes of body mass or the acutely ill. [email or web address] LAWTONnkf eGFR 140 >=60 mL/min/1.73 m?? [facility] Comment: The eGFR was calculated using the CKD-EP I equation. As with all creatinine based estimates of kidney function, eGFR values calculated with the CKD-EPI equation are not accurate in patients wi th acute kidney failure, extremes of body mass or the acutely ill. [email or web address] Specimen Anatomical Collection Method Collection Time Receive d Time (Source) Location / / Volume Laterality Blood specimen 01/30/2019 6:05 AM 019 6:26 (specimen) EDT AM EDT Resulting Agency Comment Spec In Lab Edenilson Rosales MD CHEMISTRY ORDERABLES Performing Organization Address City/State/[place] [address] documented in this encounter [...] dose., Routine, Name of patient's Methadone clinic? [facility], Methadone clinic phone: , Date last [...] loperamide (IMODIUM) capsule 2 mg 0734 ( [facility] Hold - Provider: Admin Adt - Reason: Transfer to a Procedural area)1244 ([facility] Unhold - Provider: Admin Adt) 2 mg, [...] first.
documented in this encounter Care Teams Return Clerk Relationship Specialty Start Date End Date Linda Gunn APRN PCP - General Family Medicine 01/30/19 [address] [place] [address] documented as of this encounter
--- OUTSIDE RECORDS SUMMARY | 2022-07-17 05:14 | XMS_ITS | Encounter Summary ---
:1990 Author Organization [facility] Address [address] [place] [address] Care Team Providers Name Role Phone Timothy Bliss MD Primary Care Provider Encounter Details Date Type Department Care Team Description 05/09/2020 Lab Requisition [facility] Outr Resulting Lab, Pathology & Laboratory Provider [facility] [address], [place] [id number] Social History Tobacco Use Types Packs/Day Years [...] AND ANTIBODY, 4TH GENERATION (05/09/2020 22:30 EDT) [facility] Method Time Signature HIV 1 and 2 Negative Negative 05/13/2020 [facility] MEDICAL Antibody/p24 10:59 EDT CENTER Antigen, 4th LABORATORY Generation SERVICES Comment: If acute HIV-1 infection is suspected in a high risk ??patient, submit plasma specimen for HIV-1 RNA quantitation test. Fourth Generation assay performed on the Siemens BioTrace Medicalaur. Specimen Anatomical Collection Method Collection Time Receive d Time (Source) Location / / Volume Laterality Blood VENOUS BLOOD / 05/09/2020 22:30 0 Unknown EDT 21:16 EDT Provider Outr Resulting Lab IMMUNOLOGY AND SEROLOGY OR DERABLES Performing Organization Address City/State/ZIP Code Phon e Number [facility] [address] [place] [address] SERVICES documented in this encounter Visit Diagnoses Not on filedocumented in this encounter Care Teams Early Childhood Education Coordinator Relationship Specialty Start Date End Date Timothy Bliss MD PCP - General 12/08/17 [address] [place], [place] [id number] documented as of this encounter
--- OUTSIDE RECORDS SUMMARY | 2022-07-17 05:14 | XMS_ITS | Encounter Summary ---
:1990 Author Organization [facility] [place] [address] Care Team Providers Name Role Phone Linda Gunn APRN Primary Care Provider Encounter Details Date Type Department Care Team Description 01/29/2019 Ancillary Procedure Radiology Library at Arturo Dixon, [facility] [place] [address] GASTROENTEROLOGY [phone] [place], [place] [address] (Wo rk) Social History Tobacco [...] is for storage only. Weston Dixon MD [facility] [place] [facility]RARY ORDERABLES Performing Organization Address City/State/ZIP Code Phon e Number [place], [place] documented in this encounter Visit Diagnoses Not on filedocumented in this encounter Care Teams Manager Performance Relationship Specialty Start Date End Date Linda Gunn APRN PCP - General Family Medicine 01/30/19 [address] [place] [address] documented as of this encounter
--- OUTSIDE RECORDS SUMMARY | 2022-07-17 05:14 | XMS_ITS | Encounter Summary ---
:1990 Author Organization [facility] Address [address] [place] [address] Care Team Providers Name Role Phone Timothy Bliss MD Primary Care Provider Reason for Visit Reason Onset Date Comments Results 02/18/2018 Encounter Details Date Type Department Care Team Description 02/18/2018 Telephone [facility] Araceli Dumont MD Results Cardiothoracic Surgery - Main 24 [address] [facility] 207 [address] [facility] [place] [address] [place], [place] [id number] [phone] Social History Tobacco Use Types Packs/Day Years Used Date Smoking Tobacco: Former Cigarettes 0.3 Quit : 12/08/2017 Smokeless Tobacco: Never Alcohol Use Standard Drinks/Week Comments No 0 [...] this encounter Miscellaneous Notes Telephone Encounter - Britany Dumont MD - 02/18/[address] Surgery Telephone Note Re: Attempted to call patient back regarding results of CT abdomen. No answer and voice mailbox is full/not set up yet. 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 Assessment & Recommendations: Follow-up scan shows evolution of splenic infarct; overall improvement. Will await callback from patient to relay results. Multiple attempts to call today-no answer and voicemail box not set up. Isela Dumont MD documented in this encounter Plan of Treatment Not on filedocumented as of this encounter Visit Diagnoses Not on filedocumented in this encounter Care Teams Milk Receiver Relationship Specialty Start Date End Date Timothy Bliss MD PCP - General 12/08/17 [address] [place] [address] documented as of this encounter
--- OUTSIDE RECORDS SUMMARY | 2022-07-17 05:14 | XMS_ITS | Clinical Summary ---
:1990 Author Organization [facility] Address [address] [place] [address] Care Team Providers Name Role Phone Timothy Bliss MD Primary Care Provider Allergies No known active allergies Medications Medication Sig Dispensed Refills Start Date End Date Status acetaminophen (TYLENOL) Take 2 Tabs by 0 12/30/2017 Active 500 mg tablet mouth every 6 hours as needed for Pain. Additional Information Patient not taking. Reported on 06/20/2020 gabapentin (NEURONTIN) 300 mg Take 1 Cap by mouth every 90 Cap 0 12/30/2017 Active capsule 8 hours. Additional Information Patient taking differently: 800 mg oral 3 TIMES DAILY, Reported on 06/20/2020 methadone (DOLOPHINE) 10 mg/mL Take 9.5 mL by mouth 946 mL 0 12/31/2017 Active solution daily. Daily Max: 95 mg Additional Information Patient taking differently: 105 mg oral DAILY, Reported on 06/20/2020 ibuprofen (MOTRIN) 400 mg tablet Take 400 mg by mouth 0 Active every 8 hours as needed for Pain. dexmethylphenidate 35 mg Take 35 mg by mouth 0 Active capsule,ER biphasic 50-50 daily. amoxicillin (AMOXIL) 500 mg Take 4 Caps by mouth once 4 Cap 0 06/25/2020 Active capsule for 1 dose. Take all 4 tablets within 1 hour of dental appointment on 07/01/20. 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 Co lpo scheduled with Dr. Belle Jun 24 at 930. High-risk 05/28/2011 Overview: # Global - Dating: believes she is 18 weeks via a 14+6 week U/S at [facility] three weeks ago on 05/28 - PN labs: Rh /Ab /Rubella /Varicella / HepB /HepC /HIV /RPR ordered 05/28 Pap: ASC-H, colpo ordered, scheduled fo r at 930 G/C: collect 05/28 Urine cx: - Screening: CF Ultrascreen (11-13 WGA) declined Quad Markers (15-18 WGA) declined - Flu vaccines: - Anatomy scan: ordered 05/28 - 1h GTT (26-28 WGA) - Growth: - GBS (36 WGA) Allergies NKDA Tobacco use disorder affecting , antepartum 0 05/28/2011 Overview: Smokes 1/2 ppd IMO Update Auto Replacement Drug use 05/28/2011 Overview: Pt has a hx of using opiods, cocaine and marijauna. States was clean during her first . 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 Has met with Paige tamayo. Currently using street buprenorph rine, 12 mg daily. Viral hepatitis C 05/28/2011 Overview: [ ] Liver enzymes ordered, viral load or dered 05/28/2011 12/11/2017 - she states she has met with a Dr Qureshi closer to home who she will follow up with for treatment Medical History Medical History Date Comments Hepatitis C Social History Tobacco Use Types Packs/Day Years Used Date Smoking Tobacco: Former Cigarettes 0.3 Quit : 12/08/2017 Smokeless Tobacco: Never Alcohol Use Standard Drinks/Week Comments No 0 (1 standard drink = 0.6 oz pure alcoho l) Sex Assigned at Date Recorded Not on file Obstetrics History Para Term AB IAB SAB Ectopic Multiple Living Live Births 4 2 2 1 1 2 2 Date Outcome GA Total Labor/2nd/3rd Weight Sex Delivery Anes PTL Lucita A 1 A5 Name Clin Labor Comments: System Generated. Please review and update details. 2008 Term 41w0d 3742 g (8 lb 4 oz) M Living Comments: induction 2009 Term 39w0d 3345 g (7 lb 6 oz) M Living Comments: induction, put up for ad option Last Filed Vital Signs Vital Sign Reading Time Taken Comments Blood Pressure 146/87 06/20/2020 1116 EDT Pulse 85 06/20/2020 1116 EDT Temperature 37.4 ??C (99.3 ??F) 06/20/2020 1116 EDT Respiratory Rate 12 01/25/2018 1019 EDT Oxygen Saturation 99% 01/25/2018 1019 EDT Inhaled Oxygen Concentration - - Weight 108.9 kg (240 lb) 06/20/2020 1116 EDT pt reporte d Height 180.3 cm (5' 11) 01/25/2018 1019 EDT Body Mass Index 33.47 01/25/2018 1019 EDT Plan of Treatment Health Maintenance Due Date Last Done Comments COVID-19 Vaccine (1) 1994 Pneumococcal Immunization (1 of 2 - 1995 PPSV23) Hepatitis C Screen Completed 02/14/2018, 04/19/2012 Insurance Payer Benefit Plan Subscriber ID Effective Phone Address Typ e / Group Dates MEDICAID ACO MEDICAID ACO [id number] 2019-Pres [phone] [address] [place] [address] [facility] [id number] Ina Orellana Personal/Famil Self 1990 [address] [place] [address] Ina Orellana Personal/Famil Self 1990 [address] [place] [address] Advance Directives For more information, please contact: [phone] Documents on File Type Date Recorded Patient Bakery Sales Clerk Explanati on Advance Directive 12/09/2017 9:11 [place] Advance Dir ective For Health Care sign ed 2017-12-08 Latest Code Status on File Code Status Date Activated Date Inactivated Comments Full Code 12/20/2017 15:27 12/30/2017 18:05 Reason for decision includes: Full code consistent with over all plan of care Who participated in the discussion? Patient Full Code 12/07/2017 15:26 12/20/2017 15:27 Reason for decision includes: Full code consistent with over all plan of care Who participated in the discussion? Not Discussed Care Teams Geography Teacher Relationship Specialty Start Date End Date Timothy Bliss MD PCP - General 12/08/[address] [place] [address]
--- OUTSIDE RECORDS SUMMARY | 2022-07-17 05:14 | XMS_ITS | Encounter Summary ---
:1990 Author Organization [facility] Address [address] [place] [address] Care Team Providers Name Role Phone Timothy Bliss MD Primary Care Provider Reason for Visit Reason Onset Date Comments Referral Request 02/09/2018 patient requesting r eferral for transportation Encounter Details Date Type Department Care Team Description 02/09/2018 Telephone [facility] Britany Dumont, Ref erral Request Cardiothoracic Surgery - (patient requesting Main [address] referral for [address] [facility] [address]ESS[address] transportation) [place] [address] [place] [phone] (Wo rk) Social History Tobacco Use [...] transportation completed and faxed to [facility] at [phone]. Pt is having a CT Scan at 930 and needs to arrive at 8:30 at Registration she is then seeing ID. I have had the Form scanned into [facility]. Pt aware form sent in and she will be on contact with [facility] for the ride. She will call here with any questions. Tana Parrish RN Telephone Encounter - Shahrzad Cox - 02/09/2018 0903 EDT Incoming call from patient stating that she tried to call [facility] ([phone]) to arrange transportation for her 02/14/18 CT scan but was told that the ordering MD needs to send a referral to Medicaid to obtain authorization. Patient requesting referral from Dr. Dumont for transportation. Patient would like call when this has been completed [phone]. documented in this encounter Plan of Treatment Not on filedocumented as of this encounter Visit Diagnoses Not on filedocumented in this encounter Care Teams Take Away Man Relationship Specialty Start Date End Date Timothy Bliss MD PCP - General 12/08/17 [address] [place] [address] documented as of this encounter
--- OUTSIDE RECORDS SUMMARY | 2022-07-17 05:14 | XMS_ITS | Encounter Summary ---
:1990 Author Organization [facility] Address [address] [place] [address] Care Team Providers Name Role Phone Timothy Bliss MD Primary Care Provider Reason for Referral Consult (Routine) - Closed Specialty Diagnoses / Procedures Referred By Contact Refer red To Contact Diagnoses Endocarditis of prosthetic valve, subsequent encounter Carrie Parrish MD [address] [place] [phone] Referral ID Status Reason Start Date Expiration Date Visits V isits Requested Authorized [id number] Closed Specialty 02/14/2018 1 1 Services Required Question Answer Reason for Request: s/p MV replacement Practice Site (External Referral Only): [facility] Reason for Visit Reason Comments Follow-up Encounter Details Date Type Department Care Team Description 02/14/2018 Office Visit [facility] Carrie Parrish rm (current) use of antibiotics (Primary Dx); Infectious Disease - MD Thuan Endocarditis of prosthetic valve, subseq uent encounter; [address] Chronic hepatitis C without hepatic coma (HCC-CMS) [address] [place] [id number] [place] [address] [phone] (Wo rk) Social History Tobacco [...] of this encounter Discharge Diagnoses Diagnosis Z79.2 half-way (current) use of antibio tics-Z79.2[ICD-10-CM] T82.6XXD Infection [...] 27 y/o F who was hospitalized at [facility] from 12/07/17 - with E. Faecalis bacteremia and MV endocarditis. 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 Intraoperatively noted to have vegetationson the atrial wall and a hole in the MV leaflet. Postoperatively ampicillin and gentamicin were continued. On 12/30/17 she was transferred to [facility] to finish IV antibiotic therapy. On 02/12/18 she was discharged home. Prior to discharge, I discussed antibiotic plan with [facility] hospitalized. Plan to discontinue ampicillin and gentamicin [...] Reports that on her discharge paperwork from [facility] she was told that she does not [...] tattoos. Erythema to arms LABS Reviewed in [facility] Microbiology Data @[facility] 12/06/17 BC: enterococcus ? @ [facility] 12/09/17 1 of 4 BC: Enterococcus faecalis [...] WITH REFLEX TO GENOTYPE (02/14/2018 11:57 EDT) [facility] Method Time Signature HCV RNA Undetected Undetected 2018 [facility] Detect Quant IU/mL 14:40 EDT CENTER LABORATORY SERVICES Comment: Reference Range: ??Undetected The quantification range of this assay i s 15 IU/mL to 100,000,000 IU/mL. Testing was performed by the Jannet Ampliprep/Jannet TaqMan HCV v2.0 ([employer] Specimen Anatomical Collection Method Collection Time Receive d Time (Source) Location / / Volume Laterality Blood specimen BLOOD SPECIMEN / 02/14/2018 11:57 02/14 (specimen) Unknown EDT 12:23 EDT Carrie Parrish MD CHEMISTRY & BLOOD GAS ORDERA BLES Performing Organization Address City/State/[facility] Code Phon e Number [facility] [address] [phone] SERVICES CREATININE (02/14/2018 11:57 EDT) athologist Signature Creatinine 0.75 0.52 - 02/14/2018 [facility] 1.04 mg/dl 12:56 EDT CENTER LABORATORY SERVICES GFR, Calculated 109 >60 02/14/2018 [facility] ml/min/1.7 12:56 EDT CENTER 3m2 LABORATORY SERVICES Comment: eGFR calculated using CKD-EPI equation f or non Americans. Multiply eGFR by 1.16 for Americans. Specimen Anatomical Collection Method Collection Time Receive d Time (Source) Location / / Volume Laterality Blood specimen BLOOD SPECIMEN / 02/14/2018 11:57 02/14 (specimen) Unknown EDT 12:23 EDT Carrie Parrish MD CHEMISTRY & BLOOD GAS ORDERA BLES Performing Organization Address City/State/ZIP Code Phon e Number [facility] LABORATORY [address] [place] [address] SERVICES (ABNORMAL) COMPLETE BLOOD COUNT AND DIFFERENTIAL (02/14/2018 11:57 EDT) [facility] Method Time Signature WBC 6.89 4.0 - 02/14/2018 [facility] 12.4 12:38 EDT CENTER K/cmm LABORATORY SERVICES RBC 4.39 3.86 - 02/14/2018 [facility] 5.04 12:38 EDT CENTER M/cmm LABORATORY SERVICES Hemoglobin 11.9 11.6 - 02/14/2018 [facility] 15.2 12:38 EDT CENTER gm/dl LABORATORY SERVICES HCT 37.8 34.9 - 02/14/2018 [facility] 44.4 % 12:38 EDT CENTER LABORATORY SERVICES MCV 86 81 - 98 02/14/2018 [facility] fl 12:38 EDT CENTER LABORATORY SERVICES MCH 27.1 26.7 - 02/14/2018 [facility] 33.3 pg 12:38 EDT CENTER LABORATORY SERVICES MCHC 31.5 (L) 32.1 - 02/14/2018 [facility] 35.9 12:38 EDT CENTER gm/dl LABORATORY SERVICES RDW-CV 15.1 (H) <14.7 % 02/14/2018 [facility] 12:38 EDT CENTER LABORATORY SERVICES RDW-SD 47.7 <50.4 fl 02/14/2018 [facility] 12:38 EDT CENTER LABORATORY SERVICES PLT 335 141 - 377 02/14/2018 [facility] K/[facility] 12:38 EDT CENTER LABORATORY SERVICES MPV 9.8 9.5 - 02/14/2018 [facility] 12.7 fl 12:38 EDT CENTER LABORATORY SERVICES Neutrophils 55.7 % 02/14/2018 [facility] 12:38 EDT CENTER LABORATORY SERVICES Lymphocytes 33.5 % 02/14/2018 [facility] 12:38 EDT CENTER LABORATORY SERVICES Monocytes 4.4 % 02/14/2018 [facility] 12:38 EDT CENTER LABORATORY SERVICES Eosinophils 5.7 % 02/14/2018 [facility] 12:38 EDT CENTER LABORATORY SERVICES Basophils 0.6 % 02/14/2018 [facility] 12:38 EDT CENTER LABORATORY SERVICES Immature Grans 0.1 % 02/14/2018 [facility] 12:38 EDT CENTER LABORATORY SERVICES ABS Neutrophils 3.84 2.20 - 02/14/2018 [facility] 8.85 12:38 EDT CENTER K/cmm LABORATORY SERVICES ABS Lymphs 2.31 1.09 - 02/14/2018 [facility] 3.30 12:38 EDT CENTER K/cmm LABORATORY SERVICES ABS Monocytes 0.30 0.1 - 0.8 02/14/2018 [facility] K/[facility] 12:38 EDT CENTER LABORATORY SERVICES ABS Eosinophils 0.39 0.03 - 02/14/2018 [facility] 0.61 12:38 [facility] LABORATORY SERVICES ABS Basophils 0.04 0.01 - 02/14/2018 [facility] 0.11 12:38 [facility] LABORATORY SERVICES ABS Immature 0.01 0 - 0.06 02/14/2018 [facility] Grans /[facility] 12:38 [facility] LABORATORY SERVICES Type of Diff: Automated 02/14/2018 [facility] 12:38 [facility] LABORATORY SERVICES Specimen Anatomical Collection Method Collection Time Receive d Time (Source) Location / / Volume Laterality Blood specimen BLOOD SPECIMEN / 02/14/2018 11:57 02/14 (specimen) Unknown EDT 12:23 EDT Carrie Parrish MD PACKAGES & DNA PROBE ORDERAB LES Performing Organization Address City/State/ZIP Code Phon e Number [facility] [address] [place] [address] SERVICES documented in this encounter Visit Diagnoses Diagnosis half-way (current) use of antibiotics - Primary Endocarditis [...] daily. added in this encounter Care Teams Reel Operator Relationship Specialty Start Date End Date Timothy Bliss MD PCP - General 12/08/17 [address] [place] [address] documented as of this encounter
--- OUTSIDE RECORDS SUMMARY | 2022-07-17 05:14 | XMS_ITS | Encounter Summary ---
:1990 Author Organization [facility] Address [address] [place] [address] Care Team Providers Name Role Phone Timothy Bliss MD Primary Care Provider Reason for Visit Reason Onset Date Comments Other 04/06/2018 Encounter Details Date Type Department Care Team Description 04/06/2018 Telephone [facility] Bianca Parrish MD Other Infectious Disease - [address] [place], [place] [id number] [place] [phone] (Wo rk) Social History Tobacco Use Types [...] Had this before as an inpatient at [facility]. Mother states she does have a cold with occasional nose drainage sometimes yellow/green. No shortness of breathor cough. Denies, night sweats, fever or chills. No chest pressure. Mother concerned it could be pneumonia. Before going to ED suggested Ina apply warm compress on area to relax muscle. If after 2hrs of continuous warm compress, pain not relieved, go to ED to be evaluated. Telephone Encounter - Lisa Scott - 04/06/2018 1650 EDT Pt's mother, Haleigh, states pt is experiencing pains around her left collar bone while breathing in.States this started happening yesterday. Haleigh can be reached [phone]. documented in this encounter Plan of Treatment Not on filedocumented as of this encounter Visit Diagnoses Not on filedocumented in this encounter Care Teams Roll Forger Relationship Specialty Start Date End Date Timothy Bliss MD PCP - General 12/08/17 [address] [place] [address] documented as of this encounter
--- OUTSIDE RECORDS SUMMARY | 2022-07-17 05:14 | XMS_ITS | Encounter Summary ---
:1990 Author Organization [facility] Address [address] [place] [address] Care Team Providers Name Role Phone Timothy Bliss MD Primary Care Provider Encounter Details Date Type Department Care Team Description 08/23/2020 Lab Requisition [facility] Clem Nam E ncounter for other Pathology & MD general examination Laboratory Medicine [address] [place] [address] [address] [place], [place] [id number] [place] [address] [id number] Social History Tobacco Use Types Packs/Day Years [...] Name Priority Date/Time Associated Diagnosis Comme nts SURGICAL PATHOLOGY Today 08/22/2020 17:32 Resul ts for this EST procedure are i n the results section. documented in this encounter Results SURGICAL PATHOLOGY (08/22/2020 17:32 EST) Component Value Ref Test Analysis Performed At [facility] Range Method Time Signature Final A. TISSUE FROM ABDOMEN, VENTRAL HERNIA, HERNIORRHAPHY: 08/28/2020 [facility] Diagnosis - Mature-appearing wbraz-zvxfxhc-julccce tissue. 12:51 [facility] Attestation There was 08/28/2020 [facility] Elect ronically significant 12:51 [facility] signed maddy Ch, resident/fellow LABORATORY Chelo redd MD on involvement in the SERVICES 1 10/29/2019 at diagnostic 1251 evaluation of this case. By the signature below, the attending physician certifies that they have personally conducted a gross and/or microscopic examination of the described specimens and rendered or confirmed the above diagnosis. Clinical Preoperative DX: Incarcerated ventral hernia 08/28/2020 [facility] History Postoperative DX: Same 12:51 [facility] SERVICES Gross A. 08/28/2020 [facility] Description Received in formalin ricardo d with proper patient identification (initials C, B) and incarcerated hernia contents is an aggregate of yellow lobulated adipose tissue fragments (8.4 x 6.0 x 1.2 cm). Sd 12:51 [facility] e of the fragments are surfa eric by murphy-white, smooth fibromembranous tissues. Cut surfaces are composed of yellow lobulated adipose tissue without hemorrhage or necrosis. Environmental Services Associate sections are submitted in A1. LABORATORY SERVICES FISH BHAT(ASCP) 08/26/2020 11:35 Resident/Chad Rouse 08/28/2020 [facility] AL w: DO Timothy 12:51 [facility] Performing Lab [facility] 08/28/2020 [facility] M EDICAL 12:51 [facility]OR[facility] SERVICES Scanned Images 08/28/2020 [facility] 12:51 [facility] Specimen Anatomical Collection Method Collection Time Receive d Time (Source) Location / / Volume Laterality Tissue HERNIA SAC / 08/22/2020 17:32 08/24/2020 8:40 Unknown EST EST Clem Nam MD PATHOLOGY ORDERABLES Performing Organization Address City/State/ZIP Code Phon e Number [facility] [address] [place] [address] SERVICES documented in this encounter Visit Diagnoses Diagnosis Encounter for other general examination documented in this encounter Care Teams Heel Stiffener Relationship Specialty Start Date End Date Timothy Bliss MD PCP - General 12/08/17 [address] [place], [place] [id number] documented as of this encounter
--- OUTSIDE RECORDS SUMMARY | 2022-07-17 05:14 | XMS_ITS | Encounter Summary ---
:1990 Author Organization [facility] Address [address] [place] [address] Care Team Providers Name Role Phone Timothy Bliss MD Primary Care Provider Encounter Details Date Type Department Care Team Description 07/25/2018 Orders Only [facility] Bianca Parrish MD Infectious Disease - [address], [address], [address] [place], [place] [address] [place] [phone] (Wo rk) Social History Tobacco Use Types [...] on filedocumented in this encounter Care Teams Channel Sales Manager Relationship Specialty Start Date End Date Timothy Bliss MD PCP - General 12/08/17 [address] [place] [address] documented as of this encounter
--- OUTSIDE RECORDS SUMMARY | 2022-07-17 05:14 | XMS_ITS | Encounter Summary ---
:1990 Author Organization [facility] Address [address] [place] [address] Care Team Providers Name Role Phone Timothy Bliss MD Primary Care Provider Reason for Visit Reason Onset Date Comments Other 06/25/2020 Encounter Details Date Type Department Care Team Description 06/25/2020 Telephone [facility] Bianca Parrish MD Other Infectious Disease - [address], [address] [place], [place] [address] [place] [phone] (Wo rk) Social History Tobacco Use Types [...] to contact Mom Haleigh. Phone number is [phone]. Carrie Parrish MD 06/25/2020 13:23 Telephone Encounter - Damien Og, RN - 06/25/[address] Parrish is aware and will call patient. DAMIEN OG, RN Telephone Encounter - Shaylee Sims - 06/25/2020 0942 EDT Chandler Montoya states that Priscillas gums are inflamed and face is starting to sell. Would like a call back at [phone]. documented in this encounter Plan of Treatment Not on filedocumented as of this encounter Visit Diagnoses Not on filedocumented in this encounter Care Teams Sales Recruitment Specialist Relationship Specialty Start Date End Date Timothy Bliss MD PCP - General 12/08/17 [place] [address] documented as of this encounter
--- OUTSIDE RECORDS SUMMARY | 2022-07-17 05:14 | XMS_ITS | Encounter Summary ---
:1990 Author Organization [facility] Address [address] [place] [address] Care Team Providers Name Role Phone Timothy Bliss MD Primary Care Provider Reason for Visit Reason Onset Date Comments Other 03/14/2020 Encounter Details Date Type Department Care Team Description 03/14/2020 Telephone [facility] Bianca Parrish MD Other Infectious Disease - [address] [place], [place] [phone] [place] [phone] (Wo rk) Social History Tobacco Use Types [...] Bah RN - 03/14/2020 1243 EDT Called [facility] in [facility] medical records. Obtained ED note and scanned it in chart. Will discuss with Dr. Parrish. Unable to reach Ina at [phone] - phone not accepting calls at this time. Telephone Encounter - Lisa Scott MA - 03/14/2020 1115 EDT Pt states she has been experiencing sweats and vomiting. States she went to [facility] ED, and they told her she was having panic attacks. Pt asking if Dr. Parrish could order blood work to see if something else could be going on. She can be reached [phone]. documented in this encounter Plan of Treatment Not on filedocumented as of this encounter Visit Diagnoses Not on filedocumented in this encounter Care Teams Grain Combine Driver Relationship Specialty Start Date End Date Timothy Bliss MD PCP - General 12/08/[address] [place] [place] [address] documented as of this encounter
--- OUTSIDE RECORDS SUMMARY | 2022-07-17 05:14 | XMS_ITS | Encounter Summary ---
:1990 Author Organization [facility] [place] [address] Care Team Providers Name Role Phone Linda Gunn APRN Primary Care Provider Reason for Visit Auth/Cert Specialty Diagnoses / Procedures Referred By Contact Refer red To Contact Diagnoses Choledocholithiasis RUQ PAIN/ JAUNDICE Procedures EMERGENCY IPI Referral ID Status Reason Start Date Expiration Date Visits Requ ested Visits Authorized [id number] 1 1 Encounter Details Date Type Department Care Team Description 01/31/2019 Ancillary [place] [phone] Social History Tobacco Use Types Packs/Day [...] on filedocumented in this encounter Care Teams Printed Circuit Board Preassembler Relationship Specialty Start Date End Date Linda Gunn APRN PCP - General Family Medicine 01/30/19 [address] [address] documented as of this encounter
--- OUTSIDE RECORDS SUMMARY | 2022-07-17 05:14 | XMS_ITS | Encounter Summary ---
:1990 Author Organization [facility] Address [address] [place] [address] Care Team Providers Name Role Phone Timothy Bliss MD Primary Care Provider Encounter Details Date Type Department Care Team Description 06/20/2020 Phlebotomy Only [facility] ED Center 2 Certified Appliance Service Technician, Acc Bacter ial endocarditis, unspecified chronicity; Phlebotomy Phlebotomy Fever, unspecified fever cau se [address] [place], [place] [address] Social History Tobacco Use Types Packs/Day Years [...] Name Priority Date/Time Associated Diagnosis Comme nts BACTERIAL CULTURE, Routine 06/20/2020 12:43 Bacterial Resul ts for this BLOOD EDT endocarditis, procedure are in unspecified the results chronicity section. TSH Routine 06/20/2020 12:43 Fever, unspecified Resul ts for this EDT fever cause procedure are i n the results section. BACTERIAL CULTURE, Routine 06/20/2020 12:41 Bacterial Resul ts for this BLOOD EDT endocarditis, procedure are in unspecified the results chronicity section. documented in this encounter Results TSH (06/20/2020 12:43 EDT) athologist Signature TSH 1.62 0.47 - 4.68 06/20/2020 [facility] uIU/mL 14:52 EDT [facility]ENTER [facility] SERVICES Specimen Anatomical Collection Method / Collection Time Recei brock Time (Source) Location / Volume Laterality Blood VENOUS BLOOD / Venipuncture / 06/20/2020 12:43 020 Unknown Unknown EDT 13:54 EDT Narrative [facility] - 06/20/2020 14:52 EDT The results of this assay can be falsely lowered due to the consumption of Biotin. Carrie Parrish MD CHEMISTRY & BLOOD GAS ORDERA BLES Performing Organization Address City/State/ZIP Code Phon e Number [facility] [address] [place] [address] SERVICES BACTERIAL CULTURE, BLOOD (06/20/2020 12:43 EDT) Analysis Performed At [facility] Signature Organism ID No Growth 06/25/2020 [facility] at 5 days 13:15 EDT [facility]ENTER LAB[facility] SERVICES Specimen Anatomical Collection Method Collection Time Receive d Time (Source) Location / / Volume Laterality Blood VENOUS BLOOD / Blood Culture / 06/20/2020 12:43 2019 Unknown Unknown EDT 13:12 EDT Carrie Parrish MD MICROBIOLOGY - GENERAL ORDER CURTIS Performing Organization Address City/[facility]/ZIP Code Phon e Number [facility] [address] [place] [address] SERVICES BACTERIAL CULTURE, BLOOD (06/20/2020 12:41 EDT) Analysis Performed At [facility] Signature Organism ID No Growth 06/25/2020 [facility] at 5 days 13:15 EDT [facility]ENTER LAB[facility] SERVICES Specimen Anatomical Collection Method Collection Time Receive d Time (Source) Location / / Volume Laterality Blood VENOUS BLOOD / Blood Culture / 06/20/2020 12:41 2019 Unknown Unknown EDT 13:13 EDT Carrie Parrish MD MICROBIOLOGY - GENERAL ORDER CURTIS Performing Organization Address City/State/ZIP Code Phon e Number [facility] [address] [place] [address] SERVICES documented in this encounter Visit Diagnoses Diagnosis Bacterial endocarditis, unspecified preschool education director nicity Fever, unspecified fever cause documented in this encounter Care Teams Java Web Application Developer Relationship Specialty Start Date End Date Timothy Bliss MD PCP - General 12/08/17 [address] [place], [place] [address] documented as of this encounter
--- OUTSIDE RECORDS SUMMARY | 2022-07-17 05:14 | XMS_ITS | Encounter Summary ---
:1990 Author Organization [facility] Address [address] [place] [address] Care Team Providers Name Role Phone Timothy Bliss MD Primary Care Provider Encounter Details Date Type Department Care Team Description 02/14/2018 Results Only [facility] Carrie Parrish, Infectious Disease - [address] [address] [address], [place] [phone] (Wo rk) Social History Tobacco Use Types [...] this encounter Results GENOTYPE (02/14/2018 11:57 EDT) [facility] gist Method Time Signature Genotype Hepatitis C 2018 [facility] Virus Genotype 14:43 EDT CENTER Not Performed. LABORATORY SERVICES Comment: Specimens for HCV genotype must have a viral load of > or = 15 IU/mL. Specimen Anatomical Collection Method Collection Time Receive d Time (Source) Location / / Volume Laterality BLOOD SPECIMEN / 02/14/2018 11:57 018 Unknown EDT 12:23 EDT Carrie Parrish MD CHEMISTRY & BLOOD GAS ORDERA BLES Performing Organization Address City/State/ZIP Code Phon e Number [facility] [address] [place] [address] SERVICES documented in this encounter Visit Diagnoses Not on filedocumented in this encounter Care Teams Logistics Tech Relationship Specialty Start Date End Date Timothy Bliss MD PCP - General 12/08/17 [address] [place] [address] documented as of this encounter
--- OUTSIDE RECORDS SUMMARY | 2022-07-17 05:14 | XMS_ITS | Encounter Summary ---
:1990 Author Organization [facility] Address [address] [place] [address] Care Team Providers Name Role Phone Timothy Bliss MD Primary Care Provider Reason for Visit Reason Onset Date Comments Shortness of Breath 05/27/2020 Encounter Details Date Type Department Care Team Description 05/27/2020 Telephone [facility] Carrie Parrish, Shortness of Breath Infectious Disease - [address] [address] [address], [place] [address] (Wo rk) Social History Tobacco [...] She stated her mom will bring her. Telephone Encounter - Princess Jose - 05/27/2020 1214 EDT Ina called asking to see Dr Parrish. Feels like she is dying, sweating profusely, runs out of breath easy, wakes up from sound sleep throwing up, not flashes. Stated has gone to [facility] 30-40 times this year. Went to [facility] about 3-4 weeks ago. Stated this past ER visit they advised her to contact us or PCP. She does not want to go to PCP. She would like a call back at [phone]. documented in this encounter Plan of Treatment Not on filedocumented as of this encounter Visit Diagnoses Not on filedocumented in this encounter Care Teams Blocking Machine Operator Second Relationship Specialty Start Date End Date Timothy Bliss MD PCP - General 12/08/17 [place] [address] documented as of this encounter
--- OUTSIDE RECORDS SUMMARY | 2022-07-17 05:14 | XMS_ITS | Encounter Summary ---
:1990 [place] [address] Care Team Providers Name Role Phone Linda Gunn APRN Primary Care Provider Reason for Visit Auth/Cert Specialty Diagnoses / Procedures Referred By Contact Refer red To Contact Diagnoses Choledocholithiasis RUQ PAIN/ JAUNDICE Procedures EMERGENCY IPI Referral ID Status Reason Start Date Expiration Date Visits Requ ested Visits Authorized [id number] 1 1 Encounter Details Date Type Department Care Team Description 02/01/2019 Anesthesia Event Main Operating Room Americo An MD [facility] [place] [address] [place] [address] [phone] Anesthesia Record Procedure Summary Procedure Name Responsible [...] of arm), MINDA Bloom, Caryn Tee right; yhqx-rih-aszzrl catheter system; 22 gauge, 1 in length, 3/4 in length; Nguyen Bond RN VAS; distraction, intradermal injection, tolerated well, appears comfortable; 0; 02/02/19; 1239 ETT Mask Ventilation: Easy (1); 02/01/19 0751 by [facility], 02/01/19 0803 by ETT Type: Cuffed, [...] multiple trocar sites.; 05/04/22 (LDA cleanup utility RA#[id number]); 1715 (LDA cleanup utility RA#[id number]) documented in this encounter Social History Tobacco [...] Procedure Summary Date: 02/01/19 Room / Location: [address] MAIN OR Anesthesia Start: 728 Anesthesia Stop: 103 Procedure: LAPAROSCOPIC CHOLECYSTECTOMY WITH CHOLANGIOGRAM (WRVU 11.47) (N/A Abdomen) Diagnosis: (LLQ PAIN) Surgeon: Jorden Hogan MD Responsible Provider: Americo Lemus MD Anesthesia Type: general ASA Status: 3 All Anesthesia Providers: Anesthesiologist: Americo Lemus MD BUSGIRL: Saeid Morales CRNA Vitals Value Taken Time BP 126/74 02/01/2019 12:00 PM Temp Pulse 68 02/01/2019 12:14 PM Resp 17 02/01/2019 12:14 PM SpO2 96 % 02/01/2019 12:18 PM Pain Level 0 02/01/2019 12:00 PM Vitals shown include unvalidated device data. Patient Location: PACU/[facility] Level of Consciousness: Awake and [...] ERCP performed by Weston Dixon MD at [facility] ENDOSCOPY Social History Tobacco Use ??? Smoking [...] 217* 70 No results for input(s): PHART, IYA3LXU, PO2ART, HRH5CUB, BEART in the last 168 hours. Plan: [...] risks discussed with patient. Plan discussed with BUSGIRL. PAT Clinic Note documented in this encounter [...] Routine documented in this encounter Care Teams Publicity Agent Relationship Specialty Start Date End Date Linda Gunn APRN PCP - General Family Medicine 01/30/19 [address] [place] [address] documented as of this encounter
--- OUTSIDE RECORDS SUMMARY | 2022-07-17 05:14 | XMS_ITS | Encounter Summary ---
:1990 Author Organization [facility] Address [address] [place] [address] Care Team Providers Name Role Phone Timothy Bliss MD Primary Care Provider Encounter Details Date Type Department Care Team Description 06/25/2020 Orders Only [facility] Bianca Parrish MD Infectious Disease - [address], [address], [address] [place], [place] [address] [place] [phone] (Wo rk) Social History Tobacco Use Types [...] Sig Dispensed Refills Start Date End Date amoxicillin (AMOXIL) 500 Take 4 Caps by mouth 4 Cap 0 1 mg capsule once for 1 dose. Take all 4 tablets within 1 hour of dental appointment on 07/01/20. documented in this encounter Progress Notes Carrie Parrish MD - 06/25/2020 1533 EDT Notified by dental clinic that Ina has an appointment scheduled with them on 07/01/20. Ok from ID standpoint for teeth extraction if needed. Rx for amoxicillin 2g sent to [facility]. Ina ok with trying to schedule TTE the morning she comes for dental appointment. Tried called TTE scheduling, but closed after 3:30pm. Will try again in the morning. Carrie Parrish MD 06/25/2020 15:54 documented in this encounter Plan of Treatment Not on filedocumented as of this encounter Visit Diagnoses Not on filedocumented in this encounter Care Teams Corrugator Operator Relationship Specialty Start Date End Date Timothy Bliss MD PCP - General 12/08/[address] [place] [facility] [place] [address] documented as of this encounter
--- OUTSIDE RECORDS SUMMARY | 2022-07-17 05:14 | XMS_ITS | Encounter Summary ---
:1990 Author Organization [facility] Address [address] [place] [address] Care Team Providers Name Role Phone Timothy Bliss MD Primary Care Provider Reason for Visit Reason Onset Date Comments Appointment Related 06/27/2020 Encounter Details Date Type Department Care Team Description 06/27/2020 Telephone [facility] Bari Carter Bin ointment Related Cardiology - [address] [place], [place] [address] Social History Tobacco Use [...] Telephone Encounter - Bari Carter - 06/27/2020 4484 EDT Fire Inspector attempted call to patient and patient's mother to schedule echo per Dr. Parrish. Unable to leave voicemail on mom's line Haleigh or on patient's line. Plan is for patient to have echo at [facility] 07/01 prior to dental appt. Will attempt again at the end of the day to schedule. documented in this encounter Plan of Treatment Not on filedocumented as of this encounter Visit Diagnoses Not on filedocumented in this encounter Care Teams Type Soldering Machine Tender Relationship Specialty Start Date End Date Timothy Bliss MD PCP - General 12/08/[address] [place] [address] documented as of this encounter
--- OUTSIDE RECORDS SUMMARY | 2022-07-17 05:14 | XMS_ITS | Encounter Summary ---
:1990 Author Organization [facility] Address [address] [place] [address] Care Team Providers Name Role Phone Timothy Bliss MD Primary Care Provider Reason for Visit Reason Onset Date Comments Appointment Related 08/07/2020 NPV Encounter Details Date Type Department Care Team Description 08/07/2020 Telephone [facility] [place] Unknown, Appointme nt Related Adult Primary Care - Provider, Sonia Melgoza (NPV) Parrish [phone] (Work) [place] [address] Social History Tobacco Use Types Packs/Day Years [...] on filedocumented in this encounter Care Teams Plasterer Helper Relationship Specialty Start Date End Date Timothy Bliss MD PCP - General 12/08/[address] [place] [address] documented as of this encounter
--- OUTSIDE RECORDS SUMMARY | 2022-07-17 05:14 | XMS_ITS | Encounter Summary ---
:1990 Author Organization [facility] Address [address] [place] [address] Care Team Providers Name Role Phone Timothy Bliss MD Primary Care Provider Encounter Details Date Type Department Care Team Description 02/14/2018 Phlebotomy Only [facility] Family Court Counsellor, care home (current) use of antibiotics; - Main Talent Outpatient Endocarditis of prosthetic v alve, subsequent encounter; [address] [facility] Chronic hepatitis C without hepatic coma ([facility] [place] [address] Social History Tobacco Use Types Packs/Day Years [...] without hepatic proced ure are in coma ([facility]) the results section. COMPLETE BLOOD COUNT Routine 02/14/2018 11:57 care home (curre nt) Results for this AND DIFFERENTIAL EDT use of antibiot ics procedure are in Endocarditis of the results prosthetic valve, section. 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 subsequent encounter documented in this encounter Results HCV RNA QUANT WITH REFLEX TO GENOTYPE (02/14/2018 11:57 EDT) Patholo gist Method Time Signature HCV RNA Undetected Undetected 2018 [facility] Detect Quant IU/mL 14:40 EDT CENTER LABOR[facility]ORY SERVICES Comment: Reference Range: ??Undetected The quantification range of this assay i s 15 IU/mL to 100,000,000 IU/mL. Testing was performed by the Jannet Ampliprep/Jannet TaqMan HCV v2.0 ([employer] Specimen Anatomical Collection Method Collection Time Receive d Time (Source) Location / / Volume Laterality Blood specimen BLOOD SPECIMEN / 02/14/2018 11:57 0611 (specimen) Unknown EDT 12:23 EDT Carrie Parrish MD CHEMISTRY & BLOOD GAS ORDERA BLES Performing Organization Address City/State/ZIP Code Phon e Number [facility] [address] [place] [address] SERVICES CREATININE (02/14/2018 11:57 EDT) P athologist Signature Creatinine 0.75 0.52 - 02/14/2018 [facility] 1.04 mg/dl 12:56 EDT CENTER LABORATORY SERVICES GFR, Calculated 109 >60 02/14/2018 [facility] ml/min/1.7 12:56 EDT CENTER 3m2 LABORATORY SERVICES [...] Organization Address City/State/ZIP Code Phon e Number [facility] [address] [place] [address] SERVICES (ABNORMAL) COMPLETE BLOOD COUNT AND DIFFERENTIAL (02/14/2018 11:57 EDT) [facility] Method Time Signature WBC 6.89 4.0 - 02/14/2018 [facility] 12.4 12:38 EDT CENTER K/cmm LABORATORY SERVICES RBC 4.39 3.86 - 02/14/2018 [facility] 5.04 12:38 EDT CENTER M/cmm LABORATORY SERVICES Hemoglobin 11.9 11.6 - 02/14/2018 [facility] 15.2 12:38 EDT CENTER gm/dl LABORATORY SERVICES HCT 37.8 34.9 - 02/14/2018 [facility] 44.4 % 12:38 EDT CENTER LABORATORY SERVICES MCV 86 81 - 98 02/14/2018 [facility] fl 12:38 EDT CENTER LABORATORY SERVICES MCH 27.1 26.7 - 02/14/2018 [facility] 33.3 pg 12:38 EDT CENTER LABORATORY SERVICES MCHC 31.5 (L) 32.1 - 02/14/2018 [facility] 35.9 12:38 EDT CENTER gm/dl LABORATORY SERVICES RDW-CV 15.1 (H) <14.7 % 02/14/2018 [facility] 12:38 EDT CENTER LABORATORY SERVICES RDW-SD 47.7 <50.4 fl 02/14/2018 [facility] 12:38 EDT CENTER LABORATORY SERVICES PLT 335 141 - 377 02/14/2018 [facility] [[email or web address] MEDICAL K/cmm 12:38 EDT CENTER LABORATORY SERVICES MPV 9.8 9.5 - 02/14/2018 [facility] 12.7 fl 12:38 EDT CENTER LABORATORY SERVICES Neutrophils 55.7 % 02/14/2018 [facility] 12:38 EDT CENTER LABORATORY SERVICES Lymphocytes 33.5 % 02/14/2018 [facility] 12:38 EDT CENTER LABORATORY SERVICES Monocytes 4.4 % 02/14/2018 [facility] 12:38 EDT CENTER LABORATORY SERVICES Eosinophils 5.7 % 02/14/2018 [facility] [[email or web address]] MEDICAL 12:38 EDT CENTER LABORATORY SERVICES Basophils 0.6 % 02/14/2018 [facility] [[email or web address]] MEDICAL 12:38 EDT CENTER LABORATORY SERVICES Immature Grans 0.1 % 02/14/2018 [facility] [[email or web address]] MEDICAL 12:38 EDT CENTER LABORATORY SERVICES ABS Neutrophils 3.84 2.20 - 02/14/2018 [facility] [[email or web address]] MEDICAL 8.85 12:38 EDT CENTER /[facility] LABORATORY SERVICES ABS Lymphs 2.31 1.09 - 02/14/2018 [facility] [[email or web address]] MEDICAL 3.30 12:38 EDT CENTER /[facility] LABORATORY SERVICES ABS Monocytes 0.30 0.1 - 0.8 02/14/2018 [facility] [[email or web address]] MEDICAL K/cm 12:38 EDT CENTER LABORATORY SERVICES ABS Eosinophils 0.39 0.03 - 02/14/2018 [facility] [[email or web address]] MEDICAL 0.61 12:38 EDT CENTER /[facility] LABORATORY SERVICES ABS Basophils 0.04 0.01 - 02/14/2018 [facility] [[email or web address]] MEDICAL 0.11 12:38 EDT CENTER /[facility] LABORATORY SERVICES ABS Immature 0.01 0 - 0.06 02/14/2018 [facility] [[email or web address] MEDICAL Grans K/cm 12:38 EDT CENTER LABORATORY SERVICES Type of Diff: Automated 02/14/2018 [facility] [[email or web address] MEDICAL 12:38 EDT CENTER LABORATORY SERVICES Specimen Anatomical Collection Method Collection Time Receive d Time (Source) Location / / Volume Laterality Blood specimen BLOOD SPECIMEN / 02/14/2018 11:57 02/14 (specimen) Unknown EDT 12:23 EDT Carrie Parrish MD PACKAGES & DNA PROBE ORDERAB LES Performing Organization Address City/State/ZIP Code Phon e Number [facility] [address] [place] [address] SERVICES documented in this encounter Visit Diagnoses 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
--- OUTSIDE RECORDS SUMMARY | 2022-07-17 05:14 | XMS_ITS | Encounter Summary ---
:1990 Author Organization [facility] [place] [address] Care Team Providers Name Role Phone Linda Gunn APRN Primary Care Provider Reason for Visit Auth/Cert Specialty Diagnoses / Procedures Referred By Contact Refer red To Contact Diagnoses Choledocholithiasis RUQ PAIN/ JAUNDICE Procedures EMERGENCY IPI Referral ID Status Reason Start Date Expiration Date Visits Requ ested Visits Authorized [id number] 1 1 Encounter Details Date Type Department Care Team Description 01/30/2019 Anesthesia Event Gastroenterology at [facility] Estelle Armstrong MD [facility] [place] [address] [facility] Ranjeet Benitez MD [facility] [place] [address] [place] [address] Anesthesia Record Procedure Summary Procedure Name [...] arm), MINDA Bloom Rios on L right; [id number]-[id number] catheter system; 22 gauge, 1 in length, [...] Procedure Summary Date: 01/30/19 Room / Location: [facility] ENDO 2 / [facility] ENDOSCOPY Anesthesia Start: 1123 Anesthesia Stop: 1232 [...] shown include unvalidated device data. Patient Location: PACU/[facility] Level of Consciousness: Awake and [...] tolerance somewhat limited by dyspnea, denies orthopnea, children librarian referred her back to cardiac rehab recently. Plan: [facility] - Other Informed Consent: Anesthetic plan [...] Routine documented in this encounter Care Teams Barrel Cap Setter Relationship Specialty Start Date End Date Linda Gunn APRN PCP - General Family Medicine 01/30/19 [address] [place] [address] documented as of this encounter
--- OUTSIDE RECORDS SUMMARY | 2022-07-17 05:14 | XMS_ITS | Encounter Summary ---
:1990 Author Organization [facility] Address [address] [place] [address] Care Team Providers Name Role Phone Timothy Bliss MD Primary Care Provider Reason for Referral Consult (3 - 10 Business Days) - Closed Specialty Diagnoses / Procedures Referred By Contact Refer red To Contact Dentistry Diagnoses Dental caries Carrie Parrish MD [facility] [address] [facility] [address] [place] [address] Referral ID Status Reason Start Date Expiration Date Visits V isits Requested Authorized [id number] Closed Specialty 06/20/2020 1 1 Services Required Question Answer Reason for Request: numerous caries, hx of endoc arditis, needs teeth extracted Scheduling Comments (optional ? first available describe specific scheduling needs if applicable): Indicate Name of Specialty Practice: [facility] Reason for Visit Reason Comments Follow-up Encounter Details Date Type Department Care Team Description 06/20/2020 Office Visit [facility] [place] Carrie Parrish Fever, unspecified fever cause (Primary Dx); Infectious Disease - MD Thuan Dental caries; [facility] [address] [place] Bacterial endocarditis, unsp ecified chronicity [address] [place], [place] [id number] [place] [address] [address], [address] [place] [address] (Wo rk) Social History Tobacco Use Types [...] 27 y/o F who was hospitalized at [facility] from 12/07/17 - 12/30/17 with E. Faecalis bacteremia and MV endocarditis. 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 Intraoperatively noted to have vegetationson the atrial wall and a hole in the MV leaflet. Postoperatively ampicillin and gentamicin were continued. On 12/30/17 she was transferred to [facility] to finish IV antibiotic therapy. On 02/12/18 [...] stool. She has been seennumerous times at [facility] and reports having negative blood cultures and normal lab work (some reviewedtoday). Has new PCP who has also evaluated her several times. She has an appointment for a TTE tomorrow at [facility]. Reports that several months ago someone told [...] through the [facility] program.Has addiction counselor through [facility], but does not have another counselor. Currently homeless and living in a hotel with her penitentiary boyfriend. Boyfriend cheated on her about2 years [...] LABS Reviewed in scanned documents 01/19/20 @ [facility] Cr 0.84, AST 15, ALT 16, TSH 1.01 WBC 9.38 Hb 12.9 Plt 294 01/21/20 @ [facility] Cr 0.77 lipase 44 WBC 12.63 Hb 13.7 Plt 283 Microbiology Data @[facility] 12/06/17 BC: enterococcus ? @ [facility] 12/09/17 1 of 4 BC: Enterococcus [...] Ina has been seen numerous times at [facility] and per their ED notes has had [...] results and next steps. 4. Referred to [facility] for teeth extractions. Follow up in 1 month. Carrie Parrish MD 06/20/2020 12:22 documented in this encounter Plan of Treatment Scheduled Referrals Name Type Priority Associated Diagnoses Order S chedule AMB CONS/FOLLOW UP Outpatient Referral Routine Dental caries E xpected: GENERAL DENTISTRY 07/04/2020 (Approximate) documented as of this encounter Results TSH (06/20/2020 12:43 EDT) P athologist Signature TSH 1.62 0.47 - 4.68 06/20/2020 [facility] uIU/mL 14:52 EDT CENTER LABOR[facility]ORY SERVICES Specimen Anatomical Collection Method / Collection Time Recei brock Time (Source) Location / Volume Laterality Blood VENOUS BLOOD / Venipuncture / 06/20/2020 12:43 020 Unknown Unknown EDT 13:54 EDT Narrative [facility] - 06/20/2020 14:52 EDT The results of this assay can be falsely lowered due to the consumption of Biotin. Carrie Parrish MD CHEMISTRY & BLOOD GAS ORDERA BLES Performing Organization Address City/State/ZIP Code Phon e Number [facility] [address] [place] [address] SERVICES BACTERIAL CULTURE, BLOOD (06/20/2020 12:43 EDT) Analysis Performed At Patho logist Time Signature Organism ID No Growth 06/25/2020 [facility] at 5 days 13:15 EDT CENTER LABORATORY SERVICES Specimen Anatomical Collection Method Collection Time Receive d Time (Source) Location / / Volume Laterality Blood VENOUS BLOOD / Blood Culture / 06/20/2020 12:43 2019 Unknown Unknown EDT 13:12 EDT Carrie Parrish MD MICROBIOLOGY - GENERAL ORDER CURTIS Performing Organization Address City/State/ZIP Code Phon e Number [facility] [address] [place] [address] SERVICES BACTERIAL CULTURE, BLOOD (06/20/2020 12:41 EDT) Analysis Performed At Patho logist Time Signature Organism ID No Growth 06/25/2020 [facility] at 5 days 13:15 EDT CENTER LAB[facility]ORY SERVICES Specimen Anatomical Collection Method Collection Time Receive d Time (Source) Location / / Volume Laterality Blood VENOUS BLOOD / Blood Culture / 06/20/2020 12:41 2019 Unknown Unknown EDT 13:13 EDT Carrie Parrish MD MICROBIOLOGY - GENERAL ORDER CURTIS Performing Organization Address City/State/ZIP Code Phon e Number [facility] [address] [place] [address] SERVICES documented in this encounter Visit Diagnoses Diagnosis Fever, unspecified fever cause - Primary Dental caries Unspecified dental caries Bacterial endocarditis, unspecified fire code inspector nicity documented in this encounter Discontinued Medications [...] daily. added in this encounter Care Teams Accounting System Expert Relationship Specialty Start Date End Date Timothy Bliss MD PCP - General 12/08/17 [address] [place] [address] documented as of this encounter
--- OUTSIDE RECORDS SUMMARY | 2022-07-17 05:14 | XMS_ITS | Encounter Summary ---
:1990 Author Organization [facility] Address [address] [place] [address] Care Team Providers Name Role Phone Timothy [...] on filedocumented in this encounter Care Teams Veterans' Counselor Relationship Specialty Start Date End Date Timothy Bliss MD PCP - General 12/08/17 [place] [address] documented as of this encounter
--- OUTSIDE RECORDS SUMMARY | 2022-07-17 05:15 | XMS_ITS | Encounter Summary ---
:[address] [facility] Address [address] [place] [address] Care Team Providers Name Role Phone Timothy Bliss MD Primary Care Provider Reason for Visit Reason Onset Date Comments Other 12/31/2017 Encounter Details Date Type Department Care Team Description 12/31/2017 Telephone [facility] Bianca Parrish MD Other Infectious Disease - [address] [place], [place] [id number] [place] [phone] (Wo rk) Social History Tobacco Use Types Packs/Day Years Used Date Smoking Tobacco: Every Day Cigarettes 0.3 Smokeless Tobacco: Never Alcohol Use Standard Drinks/Week [...] is concerned patient was transferred yesterday to [facility] and is not receiving pain medications. She [...] Kindra to discuss with patient's providers at [facility] and that I would let Dr. Parrish know. Kindra verbalizes understandingand agreement with plan. No barriers to learning noted. Dr. Parrish notified. Ayanna Og RN Telephone Encounter - Princess Jose - 12/31/2017 0857 EDT Called mother back to obtain additional information to give to nurses. She would like to speak with Dr Parrish. Stated Ina advised her that [facility] has stopped most of the medications that she was on while inpatient at [facility]. Stopped gabapentin. Stated she was getting 30 mg of morphine every 3-4 hoursat [facility] and is now getting 15 mg morphine every 12 hours at [facility]. Had to fight to get Tylenol. Kindra would like a call back at [phone]. Telephone Encounter - Lyudmila Mcneil - 12/31/2017 0731 EDT PAS Message: Kindra Clark (mom) please gimme a call at [phone] concerning - Ina Orellana documented in this encounter Plan of Treatment Not on filedocumented as of this encounter Visit Diagnoses Not on filedocumented in this encounter Care Teams Collar Stay Fuser Tender Relationship Specialty Start Date End Date Timothy Bliss MD PCP - General 12/08/17 [address] [place] [address] documented as of this encounter
--- OUTSIDE RECORDS SUMMARY | 2022-07-17 05:15 | XMS_ITS | Encounter Summary ---
:1990 Author Organization [facility] Address [address] [place] [address] Care Team Providers Name Role Phone Timothy Bliss MD Primary Care Provider Reason for Visit Reason Onset Date Comments Post-OP Follow Up 01/03/2018 Encounter Details Date Type Department Care Team Description 01/03/2018 Telephone [facility] Tana Parrish RN Post -OP Follow Up Cardiothoracic Surgery - [facility] [address] [place], [place] [phone] Social History Tobacco Use Types Packs/Day Years [...] Encounter - Tana Parrish RN - 01/03/2018 2033 EDT Cardiothoracic Surgery Update Message left for patient to call to discuss progress if she's calling home for her messages. I spokewith the nurse briefly at [facility] and she states she is stable andcontinues to recover there. documented in this encounter Plan of Treatment Not on filedocumented as of this encounter Visit Diagnoses Not on filedocumented in this encounter Care Teams Account Director Relationship Specialty Start Date End Date Timothy Bliss MD PCP - General 12/08/17 [address] [facility] [place] [address] documented as of this encounter
--- OUTSIDE RECORDS SUMMARY | 2022-07-17 05:15 | XMS_ITS | Encounter Summary ---
:1990 Author Organization [facility] Address [address] [place] [address] Care Team Providers Name Role Phone Timothy Bliss MD Primary Care Provider Reason for Visit Reason Onset Date Comments Appointment Related 01/06/2018 Encounter Details Date Type Department Care Team Description 01/06/2018 Telephone [facility] Tana Parrish RN Appo intment Related Cardiothoracic Surgery - [address] [phone] Social History Tobacco Use Types Packs/Day Years [...] Telephone Encounter - Tana Parrish RN - 01/06/2018 1430 EDT Cardiothoracic Surgery Update Patient's nurse took appt information to see DR. Dumont on 01/25 at 10:30 with check in at reg for chest x-ray at 9:45. Nurse verbalized understanding. documented in this encounter Plan of Treatment Not on filedocumented as of this encounter Visit Diagnoses Not on filedocumented in this encounter Care Teams Traveling Sales Representative Relationship Specialty Start Date End Date Timothy Bliss MD PCP - General 12/08/[address] [place] [place] [address] documented as of this encounter
--- OUTSIDE RECORDS SUMMARY | 2022-07-17 05:15 | XMS_ITS | Encounter Summary ---
:1990 Author Organization [facility] Address [address] [place] [address] Care Team Providers Name Role Phone Timothy Bliss MD Primary Care Provider Encounter Details Date Type Department Care Team Description 01/14/2018 Orders Only [facility] Gil Andrade Sp lenic infarct Cardiothoracic Surgery PA-C (Primary Dx) - [phone] [place] [address] [place], [address] [place] [address] (Wo rk) Social History Tobacco [...] spleen documented in this encounter Care Teams Mechanical Design Technician Relationship Specialty Start Date End Date Timothy Bliss MD PCP - General 12/08/17 [address] [place] [address] documented as of this encounter
--- OUTSIDE RECORDS SUMMARY | 2022-07-17 05:15 | XMS_ITS | Encounter Summary ---
:[address] [facility] Address [address] [place] [address] Care Team Providers Name Role Phone Tmiothy Bliss MD Primary Care Provider Reason for Referral Radiology Services (Routine) - Closed Specialty Diagnoses / Procedures Referred By Contact Refer red To Contact Diagnoses Splenic infarction Gil Andrade, PA-C Procedures CT ABDOMEN (LUNG BASES TO ILIAC CREST) W CONTRAST [address] [address] Referral ID Status Reason Start Date Expiration Date Visits Requ ested Visits Authorized [id number] Closed 01/20/2018 04/20/2018 1 1 Encounter Details Date Type Department Care Team Description 02/02/2018 Orders Only [facility] Gil Andrade, Sp lenic infarction Cardiothoracic Surgery PA-C (Primary Dx) - [address] [place] [address] [facility] [phone] [address] (Wo rk) Social History Tobacco [...] EDT) Anatomical Region Laterality Modality Other Specimen Anatomical Collection Method Collection Time Receive d Time (Source) Location / / Volume Laterality 02/14/2018 8:19 06/06/2018 EDT 10:07 EDT Narrative 02/14/2018 12:[address] of the pelvis was not performed. ??Th e corrected technique follows: TECHNIQUE: CT abdomen was performed with the admini stration of intravenous contrast. Addendum Ends CT ABDOMEN W CONTRAST ??02/14/2018 8:19 A M SIGNS AND SYMPTOMS/COMMENTS: ?? D73.5-Infarction of [id number]; s/p M VR, abdominal pain. h/o endocarditis [...] findings. Procedure Note Nick Bonner MD - 06/06/2018Formatt ing of this note might be different from the original. Addendum Begins CT of the pelvis was not performed. The corrected technique follows: TECHNIQUE: CT abdomen was performed with the admini stration of intravenous contrast. Addendum Ends CT ABDOMEN W CONTRAST 02/14/2018 8:19 AM SIGNS AND SYMPTOMS/COMMENTS: D73.5-Infarction of [id number]; s/p M VR, abdominal pain. h/o endocarditis [...] above interpretation and agree with the findings. Gil Andrade PA-C IMG CT ORDERABLES documented in this encounter Visit Diagnoses Diagnosis Splenic infarction - Primary Other diseases of spleen documented in this encounter Care Teams Laundrette Owner Relationship Specialty Start Date End Date Timothy Bliss MD PCP - General 12/08/17 [address] [place] [address] documented as of this encounter
--- OUTSIDE RECORDS SUMMARY | 2022-07-17 05:15 | XMS_ITS | Encounter Summary ---
:1990 Author Organization [facility] Address [address] [place] [address] Care Team Providers Name Role Phone Timothy Bliss MD Primary Care Provider Reason for Visit Reason Onset Date Comments Other 02/09/2018 update contact richardr shannan Encounter Details Date Type Department Care Team Description 02/09/2018 Telephone [facility] Britany Dumont, [facility] er (update contact Cardiothoracic Surgery - information) [address] [facility] ALESSIO [address] [place] [address] [place] [phone] (Wo rk) Social History Tobacco Use [...] to update her contact phone. New number [phone] has been entered into [employer]. documented in this encounter Plan of Treatment Not on filedocumented as of this encounter Visit Diagnoses Not on filedocumented in this encounter Care Teams Doll Wig Hackler Relationship Specialty Start Date End Date Timothy Bliss MD PCP - General 12/08/17 [address] [place] [address] documented as of this encounter
--- OUTSIDE RECORDS SUMMARY | 2022-07-17 05:15 | XMS_ITS | Encounter Summary ---
:1990 Author Organization [facility] Address [address] [place] [address] Care Team Providers Name Role Phone Timothy [...] Ernst Parsee, Anahita M, PA MD [address] [facility] [address] [place], [place] [phone] Fax: Referral ID Status Reason Start Expiration Visits Visits Date Date Requested Authorized [id number] Authorization Specialty 1 1 Not Required Services 8 Required Encounter Details Date Type Department Care Team Description 01/25/2018 Office Visit [facility] Britany Dumont S/P MVR (mitral Cardiothoracic Surgery MD valve replacement) - Main [place] [address] [facility] (Primary Dx) [address] [facility] [address] [place] [address] [place] [phone] Social History Tobacco Use Types Packs/Day [...] Continue your long-term care follow-up with your Senior Php Developer/Heart Doctor and Primary Care Provider/Doctor as well [...] Doctor. Follow-up with yourPrimary Care Provider/Doctor or Preschool Principal/Diabetes Doctor for your diabetes. Continue to ambulate/walk [...] contact your Primary Care Provider/Doctor or your Senior Php Developer/Heart Doctor for a referral to the Program with a Stress Test. For those of you who attendthe Program at [facility] ([facility]) you can have your Stress Test at the Cardiac Rehabilitation Program. They are located at [address] [place] [address] and theirtelephone number is . Follow the [employer] Antibiotic Prophylaxis/Prevention Guidelines given and reviewed with you in a handout format today. Bring this with you to your Cardiology/Heart Doctor follow-up visits in the future so that your Senior Php Developer/Heart Doctor can inform you of any future [...] EDT This note has been dictated through [facility]. Minor grammatical errors are likely to be present. CT SURGERY Postop Clinic note 01/25/18 Patient is a 27 y.o. WF who on 12/20/2018, underwent: On pump mitral valve replacement with 29 mm SJM Epic tissue, mitral valve. Serial #[id number] Intra-Op findings: 3.Valves: Mitral valve with severe [...] she continues to be part of the [facility] swing bed admission for IV antibiotic therapy and [facility]. I. Clinically A. Hemodynamics: No issues B. [...] will need to have follow-up with a demo event specialist; to evaluate the bowel long-term as she [...] elevated LFTs, hepatitis C and anemia and Senior Php Developer. 3. Follow-up in this office on a [...] Diagnosis S/P MVR (mitral valve replacement) - [facility] valve replaced by other means documented [...] 02/14/2018 added in this encounter Care Teams Group Home Paraprofessional Relationship Specialty Start Date End Date Timothy Bliss MD PCP - General 12/08/17 [address] [place] [address] documented as of this encounter
--- OUTSIDE RECORDS SUMMARY | 2022-07-17 05:15 | XMS_ITS | Encounter Summary ---
:1990 Author Organization [facility] Address [address] [place] [address] Care Team Providers Name Role Phone Timothy Bliss MD Primary Care Provider Reason for Visit Reason Onset Date Comments Other 01/13/2018 Encounter Details Date Type Department Care Team Description 01/13/2018 Telephone [facility] Araceli Dumont MD Other Cardiothoracic Surgery - Main [address] 94 [facility] 207 111 [facility] [place] [phone] [place], [place] [id number] [phone] Social History Tobacco Use Types Packs/Day Years [...] scan on 02/14/18. Contact numbers listed in [facility] are not valid. Telephone Encounter - Shahrzad Cox - 02/04/2018 1416 [...] in OP Radiology to schedule. Await response. Telephone Encounter - Shahrzad Cox - 01/25/2018 1616 EDT Per Kina, based on the indications the recommended exam is a CT abdomen with contrast. Will review with Dr. Dumont. Telephone Encounter - Shahrzad Cox - 01/25/2018 1128 EDT Email sent to Kina in OP Radiology to schedule patient's CT abd on 02/14/18, when she is returning to see ID. Await response. Telephone Encounter - Shahrzad Cox - 01/14/[address] Dumont, patient does require repeat CT abdomen. Await order. Telephone Encounter - Shahrzad Cox - 01/13/2018 1331 [...] on filedocumented in this encounter Care Teams Demographic Analyst Relationship Specialty Start Date End Date Timothy Bliss MD PCP - General 12/08/17 [address] [place] [address] documented as of this encounter
--- OUTSIDE RECORDS SUMMARY | 2022-07-17 05:15 | XMS_ITS | Encounter Summary ---
:1990 Author Organization [facility] Address [address] [place] [address] Care Team Providers Name Role Phone Timothy Bliss MD Primary Care Provider Encounter Details Date Type Department Care Team Description 01/25/2018 Hospital Encounter [facility] - Britany Dumont MD [address] [facility] [address] [place] [address] [place] [phone] (Wo rk) Social History Tobacco Use Types [...] on filedocumented in this encounter Care Teams Head Start Teacher Relationship Specialty Start Date End Date Timothy Bliss MD PCP - General 12/08/17 [address] [place] [address] documented as of this encounter
--- OUTSIDE RECORDS SUMMARY | 2022-07-17 05:15 | XMS_ITS | Encounter Summary ---
:1990 Author Organization [facility] Address [address] [place] [address] Care Team Providers Name Role Phone Timothy Bliss MD Primary Care Provider Encounter Details Date Type Department Care Team Description 01/26/2018 Orders Only [facility] Neptali Lopez, Spleni c infarction Cardiothoracic Surgery - PA-C (Primary Dx) [id number] [place] [address] [phone] Social History Tobacco Use Types Packs/Day [...] spleen documented in this encounter Care Teams Exercise Physiologist Relationship Specialty Start Date End Date Timothy Bliss MD PCP - General 12/08/17 [address] [place] [address] documented as of this encounter
--- OUTSIDE RECORDS SUMMARY | 2022-07-17 05:16 | XMS_ITS | Encounter Summary ---
:1990 Author Organization [facility] Address [address] [place] [address] Care Team Providers Name Role Phone Nick Kumar MD Primary Care Provider Unavailable Alex Bliss MD Primary Care Provider Reason for Referral Radiology Services (Routine) - Receiving Office to Obtain Authorization Specialty Diagnoses / Procedures Referred By Contact Refer red To Contact Diagnoses S/P MVR (mitral valve replacement) Agatha Ernst PA Procedures CHEST PA AND LATERAL [address] [facility] [address] [place] [address] Referral ID Status Reason Start Expiration Visits Visits Date Date Requested Authorized [id number] Receiving Office 12/30/2017 1 1 to Obtain Authorization ollow Up (Other (Specify in Question)) - Authorization Not Required Specialty Diagnoses / Procedures Referred By Contact Refer red To Contact Cardiothoracic Surgery Diagnoses S/P MVR (mitral valve replacement) Agatha Ernst Parsee, Anahita M, PA MD [address] [place], [place] [phone] Fax: Referral ID Status Reason Start Expiration Visits Visits Date Date Requested Authorized [id number] Authorization Specialty 1 1 Not Required Services 8 Required Question Answer Reason for Request: Post cardiac surgery Scheduling Comments (optional ? 4-6 weeks describe specific scheduling needs if applicable): Expected Discharge Date (Inpatient Only): 01/20/2018 (Routine) - Receiving Office to Obtain Authorization Specialty Diagnoses / Procedures Referred By Contact Refer red To Contact Agatha Ernst P, P A [address] [facility] [address] [place] [address] Referral ID Status Reason Start Expiration Visits Visits Date Date Requested Authorized [id number] Receiving Office Specialty 1 to Obtain Services 8 Authorization Required (Routine) - Receiving Office to Obtain Authorization Specialty Diagnoses / Procedures Referred By Contact Refer red To Contact Agatha Ernst P, P A [address] [facility] [address] [place] [address] Referral ID Status Reason Start Expiration Visits Visits Date Date Requested Authorized [id number] Receiving Office Specialty 1 1 to Obtain Services 8 Authorization Required Comments - Check in at Registration on level 3 (s treet level) at [facility] 45 minutes prior to your scheduled appointment with the surgeon. - If you have a chest x-ray prior to you r appointment with the surgeon, contact the surgeon's office at or [phone]- [phone] to see if this x-ray will still be needed. Encounter Details Date Type Department Care Team Description 12/07/2017 [facility] Keena Padilla MD [address] [facility], [address] [place] [address] Acute infective endocarditis, due to uns pecified organism (Primary Dx); - Encounter Cardiothoracic Gerald Castro MD [address] [address] Non-rheumatic mitral regurgitation; 12/30/2017 Surgery Unit Isabelle Garcia MD 111 [facility] [address] [place] [address] Gram-positive bacteremia; 111 [facility] [address] [facility] [address] [place], [place] [address] Rash; [place] [address] Chronic hepatitis C without hepatic coma ([facility]); [phone] Bacteremia due to Enterococcus; HIV (human immu nodeficiency virus infection) ([facility]); Anemia, unspeci fied type; Acute bacterial [...] Date: 12/30/17 Disposition: Transfer to another facility [facility] Problems and Procedures Admitting Diagnosis: Acute infective [...] [facility] Epic tissue valve. Reference number [id number]. Serial number [id number]; date of expiration 04/08/2021 12/11/17 PICC placement [...] to antibiotics. Advised Ish to call her special officer automat to determine more definitive control plan (advised [...] had met all criteria for discharge to [facility] for duration of IV ABX therapy. Pain [...] Discharge medications: Ish Orellana Home Medication Instructions ROSA:[id number] Printed on:12/30/17 7157 Medication Information acetaminophen (TYLENOL) 500 mg tablet [...] (patients with low EF unless contraindicated/ recent CO) No Discharge summary completed by FISH Yan [...] Progress Notes Rebekah Kumar RN - 12/30/2017 1406 EDT Case management discharge note: CM water control supervisor contacted patient's local hospital, [facility], and they agreed to take patient in transfer today if patient could arrive by 5PM. Patient previously declined this option but team spoke with her this afternoon and she agreed to transfer today. Confirmed with Lorenza SANTAMARIA that they are still able to accept pt today. Nursing report to: [phone]. Doc to doc call to Dr. Mohan. Patient to transfer via [facility] with cigar packer and picker at 14:30. If not covered by patient's Medicaid, the hospital will cover the cost. Rebekah Kumar RN CM #[id number] Kristina Rdz - 12/30/2017 1311 EDT Spiritual Care Note Re: Ish Randal Orellana : 1990, AGE: 27 y.o. Room: [place] [address] Ish Randal Orellana who is listed as [...] in her routine during hospitalization Intervention: ?? Staging Technician provided a supportive, listening presence ?? Explored with pt her strengths and affirmed her resilience ?? Explored with pt methods of coping for unexpected obstacles and accepting help from others ?? Created an atmosphere for pt to express her fears, hopes and joys Outcome: ?? Plan of Action: No Follow up necessary - Needs met Continued Family Support x Continued Support from Staging Technician following patient Make a Referral to: Continued [...] Support Other Chaplain Karthikeyan Russo 131 Phone [phone] Spiritual Care is available 24 hours a day. Office hours are 0800 to 1700 Wednesday through Wednesday and 0830 to 1630 Wednesday and Wednesday. Interfaithand Baptist chaplains are available 24 hours a day. For routine consults please call and leave a message with the Spiritual Care Office ([phone]) and patients will be seen within 24 hours. For all emergent consults page the Worship or Interfaith on-call Staging Technician through PAS ([phone]). Chas Gilbert - 12/29/2017 1630 EDT Subsequent Individual Psychotherapy [...] already in place and being received through [facility] 3. Addiction Treatment Program Assessment: NA 4. [...] Ofelia 12/29/2017 16:30 Predoctoral Practicum Student Pager #[phone] I have read and reviewed this note. Clinical supervision will include discussion of this session. I concur with the practicum student's findings and treatment plan. Services provided were routine and within the competence of this practicum student. Harika Madrigal, Ph.D. Licensed Psychologist-Doctorate Clinical Furniture Upholsterer [facility] - 12/29/2017 1511 EDT Pharmacy Note: Gentamicin [...] to follow Thanks, ILIANA YOUSSEF, PharmD Pager #[phone] Charlie Daniel MD - 12/29/2017 1238 EDT SURGERY DAILY [...] ABx. Charlie Daniel MD 12/29/2017 12:38 [phone] Yulisa Norman - 12/29/2017 1057 EDT Diet: Regular, offering Boost Plus/Breeze, guest [...] labs, weight Yulisa Norman, RD SB3 pager #[phone] Charlie Daniel MD - 12/28/2017 4532 EDT SURGERY DAILY PROGRESS NOTE DOS: 12/28/2017 [...] interim, will reach out to [facility] to see if there are any other options forpatient to be safely discharged and will discuss with ID the unlikely possibility of patient being discharge on PO ABx. Charlie Daniel MD 12/28/2017 15:48 [phone] Kristina Rdz - 12/28/2017 1337 EDT Spiritual Care Note Re: Ish Orellana : 1990, AGE: 27 y.o. Room: [facility]/ Ish Orellana who is listed as Unknown [...] as a wake up call Intervention: ?? Staging Technician provided a supportive, listening presence ?? Explored expectations and emotions related to discharge and returning home ?? Through life review, explored pt's resilience and strength during difficult and weak times Outcome: ?? Thank you for coming Plan of Action: x No Follow up necessary - Needs met Continued Family Support Continued Support from Staging Technician following patient Make a Referral to: Continued [...] Support Other Chaplain Karthikeyan Russo 131 Phone [phone] Spiritual Care is available 24 hours a day. Office hours are 0800 to 1700 Wednesday through Wednesday and 0830 to 1630 Wednesday and Wednesday. Interfaithand Baptist chaplains are available 24 hours a day. For routine consults please call and leave a message with the Spiritual Care Office ([phone]) and patients will be seen within 24 hours. For all emergent consults page the Worship or Interfaith on-call Staging Technician through PAS ([phone]). Rebekah Clements RN - 12/28/2017 1258 EDT CM follow up note: Per [facility] liaison, [facility] has declined to provide care to patient. Discussed with Outpatient [facility]; without home health services, they are unable to provide home infusion supplies. Team updated. Rebekah Kumar RN [phone] Carrie Ordaz MD - 12/28/2017 1134 EDT Infectious Disease [...] completed intake exam over the phone. Subjective: Ish is feeling good today except very frustrated [...] WBC 9.15 Hb 8.2 Plt 510 Microbiology: @[facility] 12/06/17 BC: enterococcus ?? @ [facility] 12/09/17 1 of [...] to antibiotics. Advised Ish to call her special officer automat to determine more definitive control plan (advised IUD) Discussed with primary care team Carrie Parrish MD 12/28/2017 11:34 Carroll Scruggs, PT - 12/28/2017 0912 EDT Rehabilitation Therapies [facility] Physical TherapyContact Note Date of Service: 12/28/2017 A physical therapy consult order was received, the medical record was reviewed, and an examination was completed. Full note to follow. The recommendation for discharge is for home with home health PT when medically ready. CARROLL SCRUGGS PT 12/28/2017 9:12 Carroll Scruggs, PT - 12/28/2017 0813 EDT [facility] Rehabilitation Therapy Acute [facility] Physical Therapy Initial Evaluation/Discontinue Note Date [...] valve disorder, unspecified-I34.9[ICD-10-CM] The patient lives at [address] [place] [id number] Home environment Lives:with boyfriend Caregiver Support: 24-hour [...] use (last use 3 years ago, on [id number] mg, confirmed with [facility]), depression, and anxiety who presented to [facility] with a one-monthhistory of petechial rash, initially [...] OP NOTE 12/20/2017 ?? Ish Orellana ?? [id number] ?? Alex Bliss ?? Pre-op diagnosis: Mitral [...] other consults recommended at this time Pager: [phone] CARROLL SCRUGGS, PT 12/28/2017 8:13 Iliana Youssef, [facility] - 12/27/2017 6767 EDT Pharmacy Note: Gentamicin Monitoring Ish Orellana [...] dosing regimen with Dr. Carrie Parrish from [place]. Pharmacy will continue to follow Letty, ILIANA YOUSSEF, PharmD Pager #[phone] Chas Gilbert - 12/27/2017 1529 EDT Subsequent Individual Psychotherapy [...] administration and monthly substance use counseling through [facility] as well as separate weekly outpatient psychotherapy through [facility] Dept of Mental Health. She also stated that she would seek a psychiatric evaluation through [facility] to explore potential psychiatric medication for depression [...] already in place and being received through [facility] 3. Addiction Treatment Program Assessment: NA 4. [...] Gilbert 12/27/2017 15:29 Predoctoral Practicum Student Pager #[phone] I have read and reviewed this note. Clinical supervision will include discussion of this session. I concur with the practicum student's findings and treatment plan. Services provided were routine and within the competence of this practicum student. Harika Madrigal, Ph.D. Licensed Psychologist-Doctorate Clinical Furniture Upholsterer Francois, Carrie Larose MD - 12/27/2017 1154 EDT [...] Pertinent Medications: Ampicillin 4 - present Gentamicin / - present Vital Signs: BP 136/90 (BP [...] Hb 7.9 Plt 485 Cr 0.69 Microbiology: @[facility] 12/06/17 BC: enterococcus @ [facility] 12/09/17 1 of [...] 3. Chronic hepatitis C - follows with speech language pathologist assistant and has plans for starting Harvoni after [...] to antibiotics. Advised Ish to call her special officer automat to determine more definitive control plan (advised IUD) Advised Ish to call her mental health provider to re-establish care and have an appointment made prior to discharge. I will write for home IV antibiotics and weekly labs. Follow up in ID clinic on 01/11 @ 11am. Discussed with primary care team Carrie Parrish MD 12/27/2017 11:55 Rebekah Kumar RN - 12/27/2017 1007 EDT Per surgery team, patient cleared for discharge to home on IVAB. Patient with history of IVDU, now on Methadone for several years. CM called patient's methadone clinic, [facility] in [facility] ([phone]) and spoke with her assistant case manager, Ambreen. Ambreen reports that patient BIN CLEANER was essentially homeless, couch-surfing. The stable person [...] upstairs section of their friends's home at [address] [place] [address] in [facility] for 4 months. They report that [...] and home nursing. Agreed to referral to [facility] and [facility] ([phone]). Explained topatient the need for coordination of services and may not be able to organize discharge for tomorrow; she expressed an understanding. Discuss with ID team; they will meet with patient later today. Rebekah Kumar RN [phone] Charlie Daniel MD - 12/27/2017 0939 EDT SURGERY DAILY [...] ketamine off, she is attempting to use HIGH SPEED WARPER TENDER less. She removed her own telemetry this [...] QD, tylenol, tramadol, gabapentin - D/C morphine HIGH SPEED WARPER TENDER today -Regular diet -Lopressor 50 BID, lasix 20 BID, ASA 81 QD -F/u ID, appreciate recs -Continuing gentamicin, ampicillin (D#) - coordinate with ID, case management regarding outpt Abx management - Colace, senna; lactulose off given multiple stools - Heparin 5000 q12h DVT chemoprophylaxis - PT Eval - D/C telemetry - Plan for DC tomorrow Charlie Daniel MD 12/27/2017 9:39 [phone] Charlie Daniel MD - 12/26/2017 0700 EDT SURGERY DAILY [...] intravenous Q1H PRN morphine 2 mg/ml (DURAMORPH) HIGH SPEED WARPER TENDER, 30 ml syringe intravenous HIGH SPEED WARPER TENDER Multivitamins with Minerals tablet 1 Tab oral [...] Plan: -F/u APS, appreciate recs -Continuing morphine HIGH SPEED WARPER TENDER, morphine IR 30 Q3H, methadone 95 QD, tylenol, tramadol, gabapentin -Regular diet -Lopressor 50 BID, lasix 20 BID, ASA 81 QD -F/u ID, appreciate recs -Continuing gentamicin, ampicillin (D#) -Colace, senna; lactulose off given multiple stools -Heparin 5000 q12h DVT chemoprophylaxis Jose Miguel Pulliam MD 12/26/2017 2:28 #[id number] Sergio Hoyos - 12/25/2017 0936 EDT Anesthesia Pain Service [...] intravenous Q1H PRN morphine 2 mg/ml (DURAMORPH) HIGH SPEED WARPER TENDER, 30 ml syringe intravenous HIGH SPEED WARPER TENDER Multivitamins with Minerals tablet 1 Tab oral [...] 1 mg IV prn nurse bolus morphine HIGH SPEED WARPER TENDER 1 mg q10 min Recommendations: Continue methadone and ketamine as currently prescribed. Simplify her breakthrough meds by omitting the nurse boluses of morphine but continue morphine HIGH SPEED WARPER TENDER for now, and continue the morphine IR 30 mg. Eventually convert to all oral pain meds. ?? APS will continue to follow, please page [phone] with any questions. Sergio Hoyos DO #[id number] 12/25/2017, 9:36 Ignacio Mcgraw MD - 12/25/[address] Surgery [...] PRN - scheduled tylenol - continue morphine CINDER PITMAN boluses - morphine 2 mg/ml HIGH SPEED WARPER TENDER ?? Day#5 of 42 of IV ampicillin and gentamicin per ID ?? DVT PPPx: heparin SQ BID ?? Increase bowel regimen Ignacio Mcgraw MD 12/25/2017 7:42 Arlin Linton - 12/24/2017 1310 EDT S: Patient was [...] Monitor po intake, weight, labs, skin, BM Lynda Rene, LEILA MSD Fast Food Shift Supervisor Mari Hansen MD - 12/24/2017 1038 EDT Anesthesia Pain Service Rounding Note Chief complaint: acute on chronic pain HPI: This is a 27 y.o. female with a hx of IVDU (last used 3 years ago), chronic methadone, endocarditis,hep C, and is now POD4 s/p MVR for severe MR. Started on ketamine and IV opioids prior to extubationand BIN CLEANER methadone 95mg/day has been continued. 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 Reports that she is eating but still [...] intravenous Q1H PRN morphine 2 mg/ml (DURAMORPH) HIGH SPEED WARPER TENDER, 30 ml syringe intravenous HIGH SPEED WARPER TENDER ondansetron (PF) (ZOFRAN) injection 4 mg intravenous [...] -Continue morphine IR 30mg Q3hrs -Continue morphine HIGH SPEED WARPER TENDER with IV boluses PRN -Restart BIN CLEANER trazodone per discretion of primary team ?? APS will continue to follow, please page [phone] with any questions. Mrai Read MD #[id number] 12/24/2017, 10:38 Associated attestation - Gaudencio Mcgregor MD - 12/24/2017 1203 EDT Attestation statement: [...] 10/10 incisional and abdominal pain overnight Morphine HIGH SPEED WARPER TENDER started CTs and Garcia removed Patient refused [...] PRN - scheduled tylenol - continue morphine CINDER PITMAN boluses - morphine 2 mg/ml HIGH SPEED WARPER TENDER ?? Day#4 of 42 of IV ampicillin and gentamicin per ID ?? DVT PPPx: heparin SQ BID ?? Recheck PM hct ?? F/u CXR Rosalia Baugh MD 12/24/2017 11:57 Rebekah Kumar RN - 12/23/2017 1601 EDT ROSALIO Follow-up note: CM discussed case with team and nursing. Patient continues with increased pain and not very interactive. Will attempt to meet with her at a later date. Rebekah Kumar RN CM [phone] Tere Omalley MD - 12/23/2017 1411 EDT Infectious Disease [...] of IV therapy 4) Would plan for residential oral therapy following IV Tere Omalley MD 12/23/2017 14:11 Arlin Linton - 12/23/2017 1409 EDT S: Patient unable [...] Boost supplement, but it willing to try [place] Breeze, will send. Due to poor po intake she is at risk for multiple nutrient deficiencies and would recommend she start taking a daily MVM to support healing.Patient has not had a BM since before surgery, consider scheduling bowel meds to promote regular BM as constipation may negatively impact intake. Last weight 12/20, please recheck P: -Will send [place] Breeze -Please add daily MVM -Monitor po intake, weigh, labs, skin, BMs -Consider scheduling bowel meds -Please weight patient daily Lynda Rene, LEILA MSD Fast Food Shift Supervisor Agree with nutrition assessment and plan of care as documented. RD following Arlin Linton MS, RD Pager [phone] Mari Read MD - 12/23/2017 1376 EDT Anesthesia Pain Service Rounding Note Chief complaint: acute on chronic pain HPI: This is a 27 y.o. female with a hx of IVDU (last used 3 years ago), chronic methadone, endocarditis,hep C, and is now POD3 s/p MVR for severe MR. Started on ketamine and IV opioids prior to extubationand BIN CLEANER methadone 95mg/day has been continued. Having persistent [...] -Continue morphine IR 30mg Q3hrs -Continue morphine CINDER PITMAN boluses -Restart BIN CLEANER trazodone per discretion of primary team ?? APS will continue to follow, please page [phone] with any questions. Mari Read MD #[id number] 12/23/2017, 13:39 Associated attestation - Domingo Pina [...] PRN - scheduled tylenol - continue morphine CINDER PITMAN boluses - PO dilaudid dc'd - hydromorphone HIGH SPEED WARPER TENDER dc'd ?? Day#3 of 42 of IV [...] and Dr. Julia Mcgraw MD 12/23/2017 Iliana Youssef [facility] - 12/22/2017 1323 EDT Pharmacy Note: Gentamicin [...] continue to follow ILIANA Saenz, PharmD Pager #[phone] Kristina Rdz - 12/22/2017 8978 EDT Spiritual Care Note Re: Ish Orellana : 1990, AGE: 27 y.o. Room: [place] [address] Ish Orellana who is listed as Unknown has received a visit from the Spiritual Care Department on12/22/2017. Need/Assessment: ?? Follow up visit with pt and partner ?? Ish sleeping, however, brief conversation with partner who has been at pt's bedside since admission ?? Per partner, Ish is doing well and spoke about Ish's recovery to home after discharge ?? Partner shared with Staging Technician, they will be returning to home where they are currently living Intervention: ?? Staging Technician provided a supportive, listening presence for pt's partner Outcome: ?? Plan of Action: Follow up visit with pt when awake No Follow up necessary - Needs met Continued Family Support x Continued Support from Staging Technician following patient Make a Referral to: Continued [...] Support Other Chaplain Karthikeyan Russo 131 Phone [phone] Spiritual Care is available 24 hours a day. Office hours are 0800 to 1700 Wednesday through Wednesday and 0830 to 1630 Wednesday and Wednesday. Interfaiand Baptist chaplains are available 24 hours a day. For routine consults please call and leave a message with the Spiritual Care Office ([phone]) and patients will be seen within 24 hours. For all emergent consults page the Worship or Interfaith on-call Staging Technician through PAS ([phone]). Mari Read MD - 12/22/2017 1121 EDT Anesthesia Pain Service Rounding Note Chief complaint: acute on chronic pain HPI: This is a 27 y.o. female with a hx of IVDU (last used 3 years ago), chronic methadone, endocarditis,hep C, and is now POD1 s/p MVR for severe MRHudson Started on ketamine and IV opioids prior to extubationand BIN CLEANER methadone 95mg/day has been continued. Reporting significant [...] oral Q4H PRN HYDROmorphone 1 mg/ml (DILAUDID) HIGH SPEED WARPER TENDER syringe, 30 ml intravenous HIGH SPEED WARPER TENDER insulin regular (HUMULIN R, NOVOLIN R) 2 [...] -continue scheduled tylenol -continue PO dilaudid -continue HIGH SPEED WARPER TENDER-would like to DC today and convert to PO, but will continue another day -continue morphine CINDER PITMAN boluses -restart BIN CLEANER trazodone per discretion of primary team ?? APS will continue to follow, please page [phone] with any questions. Mari Read MD #[id number] 12/22/2017, 11:21 Associated attestation - Domingo Pina - 12/22/2017 1256 EDT Attestation statement: I saw and examined the patient with the resident/fellow. I agree with the findings and plan of care documented in the resident's/fellow's note. MD Amauri Peralta Alejandra, MD - 12/22/[address] Surgery Progress Note Admit Date: [...] tylenol - continue PO dilaudid - continue HIGH SPEED WARPER TENDER, plan to d/c today vs tomorrow - continue morphine CINDER PITMAN boluses, d/c if more comfortable w/ ketamine ?? Day# 2 of 42 of IV ampicillin and gentamicin per ID Rosalia Baugh MD 12/22/2017 12:02 Rosalia Baugh MD - 12/21/20171826 EDT Repeat CXR obtained due to concern for it being pulled out. PICC line in same external position as placement on 12/14/17. Okay to use Tere Omalley MD - 12/21/2017 781 EDT Infectious Disease Consultation Follow Up Note [...] IV Tere Omalley MD 12/21/2017 18:27 Karolina Henrandez, RN - 12/21/2017 1816 EDT The IV [...] PICC in current position. Thank you. Nila Fernandez RN - 12/21/2017 1217 EDT Case Management [...] in the chart. Nila Fernandez RN, BSN #[id number] Rosalia Baugh MD - 12/21/[address] Surgery [...] in bed. On ketamine infusion and dilaudid HIGH SPEED WARPER TENDER and still c/o severe pain, screaming and [...] discomfort. Needs ongoing reminders to use dilaudid HIGH SPEED WARPER TENDER and still receiving PRN IVP morphine and [...] IS. Medicated for pain but still c/o 1010 pain. VSS. Mother at bedside attempting to reassure pt. 0727: Report given to RN Bolivar. Pt still c/o severe discomfort in the chair. Carroll Johnston, RT - 12/20/2017 1917 EDT Respiratory Extubation [...] to produce voice. RT RONNELL 12/20/17 Mari Read MD - 12/20/2017 6519 EDT Brief APS Note Informed of request [...] for incomplete cross tolerance. Because of her residential opioid use, expect that she will require a higher dose of opioids than her BIN CLEANER dose. The SICU team has ordered ketamine at 10mg/hr, with plenty of room to titrate up to about 25mg/hr if necessary, while monitoring for any dysphoric effects (hallucinations, disturbing dreams). I recommend a HM HIGH SPEED WARPER TENDER and titrate up as needed per primary team's discretion overnight. APS will formally consult in the morning but please call (page # [phone]) with any questions. Mari Read MD 12/20/17 16:17 Pager # [phone] Rosario Jones RN - 12/20/2017 0736 EDT Pt admitted 12/07/2017. UPT from this date negative, pt denies , declines UPT DOS. MD Gutierrez informed by alpha page, phoned OR #[phone] and MD Dumont made aware. Rosario Jones RN - 12/20/2017 0721 EDT Pt oriented x 3, very drowsy, answers questions appropriately. Laviina Chaves [facility] - 12/19/2017 1041 EDT Pharmacy Note - [...] will continue to follow. Thanks, Lavinia Chaves [facility] Pager #[phone] Isaeblle Garcia MD - 12/19/2017 5251 EDT Medicine Progress Note Service Date: 12/19/2017 [...] results Chronic pain / IVDU - ct BIN CLEANER methadone 95 mg PO daily - no change required prior to surgery - stool softeners - med psych consultation Anxiety - ativan 1mg po BID prn Tobacco abuse - nicotine inhaler prn Hep C - rec f/u for treatment once endocarditis treated Regular diet DVT ppx - ambulation Estrada Mccarthy MD 7:52 Internal Medicine Service PGY-1 [facility] Attending Attestation I saw and examined the patient with the resident. I discussed the patient with Dr. Mccarthy. I agree with and edited (in green) the findings and plan of care as documented in the note above. Plan for mitral valve replacement surgery tomorrow morning and transfer to surgical service thereafter. Isabelle Garcia MD Internal Medicine Hospitalist 12/19/2017 13:55 Isabelle Garcia MD - 12/18/2017 1024 EDT Medicine Progress [...] results Chronic pain / IVDU - ct BIN CLEANER methadone 95 mg PO daily - no change required prior to surgery - stool softeners - med psych consultation Anxiety - ativan 1mg po BID prn Tobacco abuse - nicotine inhaler prn Hep C - rec f/u for treatment once endocarditis treated Regular diet DVT ppx - ambulation Estrada Mccarthy MD 10:24 Internal Medicine Service PGY-1 [facility] Attending Attestation I saw and examined the patient with the resident. I discussed the patient with Dr. Mccarthy and Dr. Paul. I agree with and edited (in green) the findings and plan of care as documented in the noteabove. Isabelle Garcia MD Internal Medicine Hospitalist 12/18/2017 16:08 Chas Gilbert - 12/17/2017 5795 EDT Initial Individual Psychotherapy Note Date of [...] current treatment regimen (MAT and counseling through [facility]) thathas enabled this success and she convincingly [...] her history of IVDU. Providers may help sIh maintain this motivation by reinforcing the internal [...] already in place and being received through [facility] 3. Addiction Treatment Program Assessment: NA 4. Addiction Treatment Program Recommendations: NA 5. Addiction Treatment Program Therapeutic Recommendations: NA 6. Community/Peer Support Referral: NA 7. Therapeutic Treatment Status: Previously engaged in MAT and weekly substance use counseling through [facility]. Ish reports that she will continue these services upon her eventual return to the community. Frequency: 1-2x/week for 20-40 minutes. Expected duration of services: Will continue to follow for the duration of her hospitalization. Chas Gilbert 12/17/2017 15:58 Predoctoral Practicum Student Pager #[phone] I have read and reviewed this note. Clinical supervision will include discussion of this session. I concur with the practicum student's findings and treatment plan. Services provided were routine and within the competence of this practicum student. Harika Madrigal, Ph.D. Licensed Psychologist-Doctorate Clinical Furniture Upholsterer [facility] 1322 EDT Pharmacy Note: Aminoglycoside [...] to follow ? Sandy Orellana, PharmD Pager #[phone] Isabelle Garcia MD - 12/17/2017 1030 EDT [...] results Chronic pain / IVDU - ct BIN CLEANER methadone 95 mg PO daily - will likely consult anesthesia pain service tomorrow to assist in OR planning - stool softeners - med psych consultation Anxiety - ativan 1mg po BID prn Tobacco abuse - nicotine inhaler prn Hep C - rec f/u for treatment once endocarditis treated Regular diet DVT ppx - ambulation Estrada Mccarthy MD 10:31 Internal Medicine Service PGY-1 [facility] Attending Attestation I saw and examined the patient. I discussed the patient with Dr. Mccarthy. I agree with and edited (in green) the findings and plan of care as documented in the note above. Isabelle Garcia MD Internal Medicine Hospitalist 12/17/2017 21:14 Tere Omalley MD - 12/17/2017 1005 EDT Infectious Disease [...] Pertinent positives include: WBC/RBC/HGB/HCT/MCH/MCHC/PLT4.86/3.25/8.1/26.4/24.9/30.7/249 (12/17 0600) BC 12/09 09/09 enteroccoccus BC 12/11 no growth 12/09 HIV [...] team Tere Omalley MD 12/17/2017 10:05 Britany Dumont MD - 12/16/2017 1824 EDT Cardiothoracic Surgery [...] -needs dental clearance Isela Dumont MD Kristina Rdz - 12/16/2017 1403 EDT Spiritual Care Note Re: Ish Orellana : 1990, AGE: 27 y.o. Room: [place] [address] Ish Orellana who is listed as Unknown has received a visit from the Spiritual Care Department on12/16/2017. Need/Assessment: ?? Initial visit with Ish and boyfriend and spoke about SCD services ?? Ish expressed her interest in prayer on day of open heart surgery ?? Ish and bennieienrhona shared about their relationship and life together ?? Ish appears anxious and worries about her recovery, living arrangements (homeless in past) and money ?? Ish also shared her gratefulness for the support she is receiving Intervention: ?? Staging Technician provided a supportive, listening presence ?? Created an atmosphere for pt to express her emotional feelings ?? Affirmed her strengths and sense of hopefulness ?? Provided SCD pamphlet with contact information for pt Outcome: ?? Thank you for coming in Plan of Action: No Follow up necessary - Needs met Continued Family Support x Continued Support from Staging Technician following patient Make a Referral to: Continued [...] Support Other Chaplain Karthikeyan Russo [address] Phone [phone] Spiritual Care is available 24 hours a day. Office hours are 0800 to 1700 Wednesday through Wednesday and 0830 to 1630 Wednesday and Wednesday. Interfaithand [employer] chaplains are available 24 hours a day. For routine consults please call and leave a message with the Spiritual Care Office ([phone]) and patients will be seen within 24 hours. For all emergent consults page the Worship or Interfaith on-call Staging Technician through [facility] ([phone]). Isabelle Garcia MD - 12/16/2017 0831 EDT Medicine Progress [...] results Chronic pain / IVDU - ct BIN CLEANER methadone 95 mg PO daily - will [...] 30 minutes of which was in direct [id number]-ay-[id number] time. Isabelle Garcia MD Internal Medicine Hospitalist 12/16/2017 18:52 Isabelle Garcia MD - 12/15/2017 0848 EDT Medicine Progress [...] results Chronic pain / IVDU - ct BIN CLEANER methadone 95 mg PO daily Hep C - rec f/u for treatment once endocarditis treated Regular diet DVT ppx - ambulate Estrada Mccarthy MD 8:48 Internal Medicine Service PGY-1 [facility] Attending Attestation I saw and examined the patient. I discussed the patient with and Dr. Paul. I agree with and edited (in green) the findings and plan of care as documented in the note above. Isabelle Garcia MD Internal Medicine Hospitalist 12/15/2017 17:14 Sandy Orellana, [facility] - 12/15/2017 0749 EDT Pharmacy Note: Aminoglycoside [...] will continue to follow ?? Sandy Orellana PharmD Pager #[phone] Tere Omalley MD - 12/14/2017 1435 EDT Infectious Disease Consultation Follow Up Note [...] positives include: WBC/RBC/HGB/HCT/MCH/MCHC/PLT3.38/3.40/8.1/27.1/23.8/29.9/220 (12/14 0610) BC 4/5 / enteroccoccus BC 12/11 pending 12/09 HIV RNA [...] team Tere Omalley MD 12/14/2017 16:16 Isabelle Garcia MD - 12/14/2017 0850 EDT Medicine Progress [...] results Chronic pain / IVDU - ct BIN CLEANER methadone 95 mg PO daily Hep C - rec f/u for treatment once endocarditis treated Regular diet DVT ppx - ambulate Estrada Mccarthy MD 8:50 Internal Medicine Service PGY-1 [facility] Attending Attestation I saw and examined the patient with the resident. I discussed the patient with Dr. Solorzano and Dr. Paul. I agree with and edited (in green) the findings and plan of care as documented in the noteabove. Isabelle Garcia MD Internal Medicine Hospitalist 12/14/2017 21:33 Sandy Orellana RPH - 12/13/2017 1711 EDT Pharmacy Note: Aminoglycoside [...] continue to follow Sandy Orellana PharmD Pager #[phone] Isabelle Garcia MD - 12/13/2017 0911 EDT Medicine Progress [...] results Chronic pain / IVDU - ct BIN CLEANER methadone 95 mg PO daily Hep C - rec f/u for treatment once endocarditis treated Regular diet DVT ppx - ambulate Estrada Mccarthy MD 9:11 Internal Medicine Service PGY-1 [facility] Attending Attestation I saw and examined the patient. I discussed the patient with Dr. Mccarthy and Dr. Paul. I agreewith and edited (in green) the findings and plan of care as documented in the note above. Isabelle Garcia MD Internal Medicine Hospitalist 12/13/2017 20:55 [facility] 12/12/2017 1527 EDT Pharmacy Note: [...] continue to follow. Thank you. Anitha Chauhan [facility] Pager #[phone] Gerald Castro MD - 12/12/2017 1233 EDT Medicine Progress [...] results Chronic pain / IVDU - ct BIN CLEANER methadone 95 mg PO daily Hep C - rec f/u for treatment once endocarditis treated Regular diet DVT ppx - ambulate Estrada Mccarthy MD 12:33 Internal Medicine Service PGY-1 [facility] Attending Attestation: I have interviewed and examined the patient. I have personally reviewed the medication list. I have independently reviewed the lab results I have discussed the case with the resident and agree with the findings and plan of care above. Any additions in blue. Date of service: 12/12/2017 Gerald Castro MD Gerald Castro MD - 12/11/2017 0950 EDT Medicine Progress [...] prompting early PICC placement. Requires anesthesia for KRISTOPHER. HIV ab test (+) but confirmatory testing (-). Patient informed by ID. She remains hemodynamically stable. Daily EKG. PICC placed today. Starting gentamicin per ID. Blood cx x2 as 12/09 cx grew Gram (+) cocci. Plan Acute [...] results Chronic pain / IVDU - ct BIN CLEANER methadone 95 mg PO daily Hep C - rec f/u for treatment once endocarditis treated Regular diet DVT ppx - ambulate Estrada Mccarthy MD 9:50 Internal Medicine Service PGY-1 [facility] Attending Attestation: I have interviewed and examined the patient. PICC line in place, it was uncomfortable - she said thelidocaine didn't help prevent her from feeling everything. I have personally reviewed the medication list. I have independently reviewed the lab results and EKG. [place] interval about the same. Will cont to [...] of service: 12/11/2017 Gerald Castro MD Kandi Lawrence, RN - 12/11/2017 0759 EDT Patient with positive blood cultures drawn on 12/09/17 at [address] OK to place PICC line per Dr Marcellus MAHAJAN MD regardless of positive cultures. Carrie Parrish MD - 12/10/2017 8092 EDT Infectious Disease Consultation Follow Up Note [...] hands. Anti-infectives & Other Pertinent Medications: Vancomycin /2 - 12/09 Cefepime /2 - 12/08 Ampicillin 4/5 - present Vital [...] Hb 9 Plt 161 Cr 0.61 Microbiology: @[facility] 12/06/17 BC: Enterococcus faecalis @[facility] 12/09/17 BC: no growth 12/08/17 HIV Ab postive Confirmatory HIV testing at [facility] NEGATIVE HIV VL UNDETECTABLE Assessment: 1. Enterococcal [...] care team Carrie Parrish MD 12/10/2017 17:47 Arlin Linton - 12/10/2017 1401 EDT Nutrition S: Pt [...] bisacodyl Labs: Hgb/Hct:9.0/29.4 (12/10 718) Na/K/Cl/CO2/Gluc/M/4.7/109/26/79/1.9 (12/08 557-12/10 718) Blood Glucose (Lab Resulted): -- BUN/Cr/Phos/AlkPhos/Ca/CalcCa/TG/CRP:8/0.61/3.9/--/7.9/9.3/--/-- [...] RD following Arlin Linton MS, RD Pager [phone] Gerald Castro MD - 12/10/2017 1002 EDT [...] result Chronic pain / IVDU - ct BIN CLEANER methadone 95 mg PO daily Hep C - rec f/u for treatment once endocarditis treated Regular diet DVT ppx - ambulate Estrada Mccarthy MD 10:03 Internal Medicine Service PGY-1 [facility] Attending Attestation: I have interviewed and examined [...] of service: 12/10/2017 Gerald Castro MD Gerald Castro MD - 12/09/2017 1727 EDT Medicine Progress [...] complications. Gerald Castro MD 12/09/2017 17:27 Michelle Teixeira RN - 12/09/2017 1601 EDT Patient moved out of MICU to . Multiple attempts to meet with she and her Mother to answer questions. No visitors in Room; patient sleeping. Will follow up tomorrow. Luciana Wyatt RN - 12/09/2017 0948 EDT Pt came down for KRISTOPHER, but was unable to tolerate the oral lidocaine gel used to numb back of throat.She is also adamant that she wants to do the procedure with general anesthesia. Report called to .Pt transported back to with Pt Support and RN. Randell Qiana, [facility] - 12/08/2017 2133 EDT Pharmacy Note: Vancomycin [...] to follow Thanks, Qiana Mejias, Pharm.D. Pager #[phone] Carrie Parrish MD - 12/08/2017 1829 EDT Notified by primary team that HIV Ab test is positive. I discussed test results with Ish. Discussed that HIV test is positive, but would consider these preliminary results and confirmatory test has been sent to [facility]. Ish appropriately tearful and distressed. Discussed briefly that HIV diagnosis should not impact her life expectancy. Will discuss further with confirmatory test results. Ish states she was last tested 3-4 years ago at the [facility] in [facility]. Ish asked me not to be present when she told her mother and boyfriend, Alex. Ish gave permission for me to speak with her mother. Gave same information to mother. Please send HIV VL (quantitative RNA) and immunodeficiency panel (CD4 count) with next blood draw. Ok to discontinue cefepime. Carrie Parrish MD 12/08/2017 18:34 Carrie Parrish MD - 12/08/2017 1139 EDT Infectious Disease [...] diarrhea. Anti-infectives & Other Pertinent Medications: Vancomycin 12/06 - Cefepime 12/06 - Vital Signs: BP [...] include: Labs: no new labs Microbiology: @ [facility] 12/06/17 BC: enterococcus - I personally called the [facility] lab on 12/08/17 at 10am - prelim [...] as an outpatient. HCV VL pending at [facility]. Recommendations: Continue vancomycin 15mg/kg IV q 12 [...] team Carrie Parrish MD 12/08/2017 11:39 Guerita Omalley - 12/08/2017 1040 EDT Initial Case Management/Social Work Assessment and Discharge Plan/Readmission Risk Assessment REASON FOR ADMISSION: Pt is a 27 yo woman with PMhxx= untreated HepC, remote IV drug use, depression, and anxiety who presented to [facility] with a one-month history of petechial rash [...] Yes, new copy in paper chart @ [facility] (Sent to HIM today. ) Information on Healthcare Directives Requested: Yes Patient Requests Assistance: Other (Comment) (I assisted patient with completing her advance directive today per her wishes. Document was signed and witnessed. Original and copies given to her mother. Copy sent to HIM. They will send a copy to [facility].) DIRECTIVES FOR FINANCES: Directive For Finances: No TRANSPORTATION: Transportation: Family CULTURAL, MORMONISM and/or LANGUAGE factors affecting health care/discharge planning: [...] Other (Comment) (Patient is actively involved with [facility].) FUNCTIONAL STATUS: Activities patient requires assistance: None Assistive Device: None COMMUNITY RESOURCES/SUPPORTS: Primary Care Provider: Alex Bliss PCP Verified: Yes Specialists: Type of Home Health Services: None DME Provider: Pharmacy: No Pharmacies Listed Home Health: Other: Other (enter in comments) ([facility]: [facility] in [facility] where she also receives counseling. ) [...] lot of financial and emotional support from anca Ricardo mom. Patient has 4 sons, ages 10, 5, 4, and 2 who are in other family memberscustody. Guerita Omalley 12/08/2017 10:40 Marta Julio DO - 12/08/2017 0818 EDT Critical Care [...] by bedside, requesting to see social work instructor to assist with paperwork for DPOA to [...] use, depression, and anxiety who presented to [facility] with a one-month history of petechial rash [...] abuse, on methadone therapy, confirmed dosage at [facility] - last dose given today 12/07 [...] the resident's/fellow's note. Arie Padilla MD 12/08/2017 16:28 Carroll Hurst RT - 12/07/2017 1749 EDT Respiratory [...] no home oxygen RT [place] 12/07/17 Guerita Martinez RN - 12/07/2017 1600 EDT 1530: Pt [...] briefly with Ish when she arrived from [facility]. Ish is veryhungry and uncooperative with much of her care. I have explained to her multiple times that she needs to be patient and cooperative as we are all here to try to help her. Met with Ish's mom Josh boyfriend Alex. Haleigh shared that Ish's father 8 months ago at [facility] due to complications from endocarditis r/t drug use. Ish adamantly denies IVDU and reports all of her tox screenshave been negative. Nila Fernandez RN, BSN #[id number] documented in this encounter H&P Notes Azalia Hall MD - 12/15/2017 0018 EDT Sedation for Procedure History & Physical Date: 12/15/2017 Time: 14:39 Location: Echo Lab Planned Procedure: KRISTOPHER Chief Complaint/Indications for Procedure: endocarditis History: ?? 27 yo woman with a history of prior IVDU on methadone, Hepatitis C currently admitted from [facility] withenterococcus bacteremia and mitral valve endocarditis with severe MR on TTE (done at [facility], [facility] ID and CT surgery consulting. KRISTOPHER for further pre-op evaluation and concern for possible abscess ([place] prolonged on OSH ECG). Patient reports SOB [...] Appropriate Candidate for Planned Sedation?: Yes Azalia aHll MD 12/15/2017 14:39 Azalia Hall MD - 12/09/2017 0959 EDT Sedation for Procedure History & Physical Date: 12/09/2017 Time: 10:09 Location: Echo Lab Planned Procedure: KRISTOPHER Chief Complaint/Indications for Procedure: Mitral valve endocarditis History: 27 yo woman with a history of prior IVDU on methadone, Hepatitis C currently admitted from [facility] withenterococcus bacteremia and mitral valve endocarditis with severe MR on TTE (done at [facility], [facility] ID and CT surgery consulting. KRISTOPHER for further pre-op evaluation and concern for possible abscess (NY prolonged on OSH ECG). Patient reports SOB [...] CT surgery regarding further KRISTOPHER planning. Berto Clement - 12/07/2017 1346 EDT MICU Admitting H+P Date of Service: 12/07/2017 Chief Complaint: sIh Orellana is a 27 y.o. female admitted critically ill to the MICU for infective endocarditis and severe mitral regurgitation. LOS: 0 days . HPI: Pt is a 27 yo woman with PMhx untreated HepC, remote IV drug use (last use 3 years ago, on [id number] mg, confirmed with [facility]), depression, and anxiety who presented to [facility] with a one-monthhistory of petechial rash, initially [...] Glucose, Fingerstick 80 70 - 100 mg/dl Credit Intern ID [id number] TYPE AND SCREEN Collection Time: 12/07/17 15:44 [...] use, depression, and anxiety who presented to [facility] with a one- month history of petechial [...] abuse, on methadone therapy, confirmed dosage at [facility] - last dose given today 3 [...] surgery, ID Social: lives with partner Prognosis/Disposition: Guarded Marta Julio, DO 12/07/2017 13:46 Attending attestation statement: I [...] with suture. CXR is ordered Lydia[employer]ISH Pride Azalai Hall MD - 12/15/2017 1710 EDTProcedure(s): TRANSESOPHAGEAL ECHO (KRISTOPHER) Pre-Procedure Diagnose(s): Acute bacterial endocarditis Post-Procedure Diagnose(s): Acute bacterial endocarditis Transesophageal Echocardiogram Brief Post-Procedure Note Date of Procedure: 12/15/2017 Attending: Orlando Alvraado MD Fellow: Azalia Hall MD and Italo [...] condition. Azalia Hall MD 12/15/2017 17:10 Kandi Lawrence RN - 12/11/2017 0944 EDTAssociated Order(s): INSERT PICC LINE Central Catheter Insertion First Catheter This Session licensed appraiser: Patient Location: [place] [address] Preliminary Data: Insertion Date: 12/11/17 Insertion Time: 936 First Credit Intern: Kandi Lawrence RN RN/MA Documenting Procedure: Zurdo [...] Line Operators: Number Of Operators: 1 First Credit Intern's Name: Kandi Lawrence RN First Credit Intern's Title: Vascular court recorder Unless otherwise noted, there were no complications, [...] oral Q4H PRN HYDROmorphone 1 mg/ml (DILAUDID) HIGH SPEED WARPER TENDER syringe, 30 ml intravenous HIGH SPEED WARPER TENDER insulin regular (HUMULIN R, NOVOLIN R) 2 [...] -continue scheduled tylenol -continue PO dilaudid -continue HIGH SPEED WARPER TENDER-plan to DC tomorrow -continue morphine CINDER PITMAN boluses, plan to DC by end of day if more comfortable with increase in ketamine APS will continue to follow, please page [phone] with any questions. 9:36 12/21/2017 Mari Read MD Associated attestation - Michelle Matthew MD - 12/21/2017 1011 EDT I was present for the evaluation and examination of this patient and agree with the above plan. MD Nelson Leong, Tracey Dexter MD - 12/20/2017 0738 EDT SICU Post-Op Cardiothoracic Surgery Admit Note ? HPI: 27 yo woman with PMhx untreated HepC, IV drug use (last use 3 years ago, on methadone 95 mg, confirmed with [facility]), depression, and anxiety who presented to [facility] with a one-month history of petechial rash [...] ] Finasteride [ ] HCTZ [ ] Union 3 FA [ ] ?? No Known [...] PPI Tracey Damon MD 12/20/2017 15:37 Clarissa Lombardi MD - 12/09/2017 1037 EDT Dental Surgery [...] intervention, okay from a dental standpoint. Clarissa Lombardi DMD 12/09/2017 10:37 Resident Division of Dental Surgery Britany Dumont MD - 12/08/2017 1116 EDT This Consult note has been dictated. #[id number] For questions please do not hesitate to [...] 0.261% Renal Failure: 8.551% Reoperation: 10.599% Britany Dumont MD - 12/08/2017 0000 EDT INPATIENT CONSULTATION [...] Not currently working. Last job was at [employer]. 3. Tobacco use: It is half pack [...] bilaterally. No weeping of the rash. LABS: [facility] 12/07/2017: 1. WBC 4.6, hemoglobin 8.8, hematocrit 28, platelet 145. 2. Sodium 137, potassium 3.8, BUN 6, creatinine 0.67. CHEST X-RAY: 12/07/2017. 1. No convincing evidence of pulmonary edema. 2. Left lower lobe atelectasis. 3. Elevated left diaphragm. ECHO: [facility] read by [facility]'s damage assessor, Sai Staples, date of service 12/07/2017: 1. Left ventricle, [...] medical care or personnel thus far at [facility] who has a history of hepatitis C [...] PM / Britany Dumont MD cn Confirmation: [id number] Dictation ID: [id number] Carrie Ordaz MD - 12/07/2017 4876 EDT Infectious Disease Consult Note Admit Date: 12/07/2017 Date of Service: 12/07/2017 Requesting Physician: Dr. Padilla Reason for Consult: GPC bacteremia, MV vegetation HPI: Ms. Orellana is a 27 y/o F with a PMHx significant for IVDU (reports last using IV cocaine and heroin years ago), chronic hepatitis c virus infection (dx 10 years ago), who was transferred to the [facility]U from [facility] for further medical and possible surgical [...] PCP on 12/06/17 and sent to the [facility] due to symptoms, rash, and fever in the clinic. Evaluation at [facility] revealed new murmur on physical exam. She had a RUQ ultrasound whichrevealed a hypodensity in the spleen. She had a TTE which showed a [id number] vegetation on the MV and severe MR. By report, blood cultures are growing GPCs. She was given vancomycin + cefepime. Due to severity of MR, she was transferred to [facility]. This afternoon Ish reports she is [...] History: none Medications: MAR reviewed. Anti-infectives: Vancomycin /2 - Cefepime / - Allergies: Review of patient's allergies indicates no known allergies. Family History: father from endocarditis Social History: Lives with boyfriend, sexually active, use condoms Smokes cigarettes and marijuana daily No IVDU in 3 years No recent travel Pet cat, but no recent bites or scratches Per [facility] notes, Ish has 4 children, but they [...] Laboratory data reviewed. Pertinent positives include: Labs: @[facility] 12/06/17 WBC 5.91 Hb 7.3 Plt 176 ASt 39 ALT 11 T bili 1.29 LDH 392 12/07/17 WBC 3.46 Hb 6.3 Plt 105 Cr 0.77 UA: +blood, +bacteria @[facility] 12/07/17 Cr 0.65 T bili 1.7 AST 40 ALT 25 WBC 4.62 Hb 8.8 Plt 145 Microbiology: @[facility] - I attempted to reach laboratory at [facility] on 12/07/17 at 5:45pm, but no answer 12/06/17 Radiological Studies: I have independently visualized the CXR - no infiltrates @[facility] 12/07/17 RUQ ultrasound: 8mm hypoechoic lesion in spleen, hepatic steatosis, gallbladder sludge 12/07/17 TTE: 96n12dy vegetation on MV, severe MR 12/06/17 EKG: [place] 202, QTc 404 Assessment: 1. GPC bacteremia with concern for endocarditis. I attempted to call [facility] lab to clarify blood culture results, but no answer. Will try again in the morning. Would continue vancomycin and cefepime for now until ID of organism in blood is known. Would be worried about skin and oral farhana as culprit organisms. Meets Madsen criteria for endocarditis. 2. Mitral valve vegetation with severe MR by TTE performed at [facility] - CT surgery to see patient 3. [...] surgery consult Follow up blood cultures from [facility] Discussed with primary care team Carrie Parrish MD 12/07/2017 17:32 documented in this encounter OR Notes OR Surgeon - Britany Dumont MD - 12/20/2017 0000 EDT OPERATIVE REPORT SERVICE DATE: 12/20/2017 PREOPERATIVE DIAGNOSES: 1. Endocarditis, mitral valve 2. Severe mitral valve regurgitation with left atrial phlegmon. PROCEDURE: On pump mitral valve replacement with a [address] Bebeto Epic tissue valve. Reference [id number]. Serial number [id number]; date of expiration 04/08/2021. POSTOPERATIVE DIAGNOSES: 1. Endocarditis, mitral valve enterococcal. 2. Severe mitral valve regurgitation with left atrial phlegmon. SURGEON: Britany Dumont MD BACK TUFTER: Dillon WHITTEN (assisted in surgery, as there was no qualified resident available) ANESTHESIA: Chad CHAN MD FINDINGS: 1. Airway: No significant issues [...] arrest of the heart using antegrade cold assisted cardioplegia after the ascending aorta cross clamp [...] PM / Britany Dumont MD cn Confirmation: [id number] Dictation ID: [id number] documented in this encounter Miscellaneous Notes Plan [...] as inpatient. Patient agreed to transfer to [facility]. Prepped for transfer. R - Patient questions reviewed and addressed prior to discharge. Patient reported pain and was medicated. Patient left the unit in a stretcher in stable condition with [facility]. No distress noted. Report given to Yakelin at [facility]. 12/30/2017 15:37 SAEID HYMAN RN Anesthesia Post-Eval - Saurabh Rizzo MD - 12/30/2017 8708 EDT Anesthesia Post op Note Ish Orellana [...] anesthetic complications Saurabh Rizzo MD 01/16/2018 7:58 Plan of Care - Saeid Hyman RN - 12/29/2017 5699 EDT Problem: Daily Care Plan Goals Goal: [...] to monitor. SAEID HYMAN RN 12/29/2017 19:32 Plan of Care - Azalia Gill RN - 12/29/2017 0753 EDT Problem: Daily Care Plan Goals Goal: [...] upset about not being discharged yesterday, and appeals writer attempted to be an activelistener. Pt was tearful, though appeals writer was able to get across to [...] and prn. 12/29/2017 7:48 Azalia Gill RN Plan of Care - Maria Elena Kaye RN - 12/28/2017 1956 EDT Problem: Daily Care Plan Goals Goal: [...] care Issues. Action: Numerous attempts made by appeals writer and Team to calm patient down [...] will take the matter further. Maria Elena aKye RN 12/28/2017 19:50 Plan of Care - Azalia Gill RN - 12/28/2017 0516 EDT Problem: Daily [...] and prn. 12/28/2017 5:09 Azalia Gill RN Plan of Care - Maria Elena Kaye RN - 12/27/2017 1859 EDT Problem: Daily Care Plan Goals Goal: Care Plan Documentation 12/27/17 0844 Care Plan Focus Area of Focus Pain/ Comfort Goal This Shift monitor pain and treat Data: Pt with continuous pain due to MVR. Morphine HIGH SPEED WARPER TENDER pump ordered until this shift. Action: Pt's pump removed at 0900. MSIR given several times this shift with scheduled Tylenol. Response: Pt has stated pain relief with PO MS04 yet pain persists. Managing her pain well while doing ADL.s Maria Elena Kaye RN 12/27/2017 18:57 Plan of Care - Nila Bautista RN - 12/26/2017 9855 EDT Problem: Daily Care Plan Goals Goal: Care Plan Documentation Data: Pt POD#6 s/p on pump tissue MVR. Pt has Morphine Q3 hours ordered PRN. Pt went 5 hours betweendoes this evening. Used HIGH SPEED WARPER TENDER minimally in that time as well. S/o [...] in solarium. Nila Bautista RN 12/26/2017 22:44 Plan of Care - Kimberly Hathc RN - 12/26/2017 5903 EDT Ambulation Note D - This is a(n) 27 y.o. female S/P tissue MVR This is post-op day 7 for the patient. The patient is ordered for progressive ambulation. A - The patient was ambulated 160 ft feet in the hallway with COMIC ARTIST, just supervision. R - The patient displayed some moderate pain at the incision, goal to walk once more this evening. Pain moderate today, using IV HIGH SPEED WARPER TENDER demand doses less. Will continue to encourage activity as ordered and tolerated. 12/26/2017 14:54 Kimberly Hatch RN Plan of Care - Osmin Loyola RN - 12/25/2017 6323 EDT Problem: Daily Care Plan Goals Goal: Care Plan Documentation Outcome: Ongoing 12/25/172014 Care Plan Focus Area of Focus Pain/ Comfort Goal This Shift Patient will report adequate pain control Data: Patient c/o moderate to severe pain and uses her HIGH SPEED WARPER TENDER pump for pain control but is given PO Morphine q3 hours for pain control. Action: Patient reports feeling relief from nausea after taking IV Zofran. Patient requested to be woken up for pain medication. Response: Patient continues to receive her scheduled antibiotics and verbalizes understanding of plan of care. Her boyfriend is staying at bedside overnight. Osmin Loyola RN 12/25/2017 23:31 Plan of Care - Mary Espino RN - 12/25/2017 1311 EDT Problem: Daily Care Plan Goals Goal: Care Plan Documentation Outcome: Ongoing 12/25/17 0809 Care Plan Focus Area of Focus Mobility Goal This Shift encourage OOB Data: Patient POD # 5 cardiac valve surgery Action: Assisted and encouraged patient to use IS every hour while awake. Pain controlled with HIGH SPEED WARPER TENDER and Ketamine. Occasional request for PRN Morphine. Educated patient on importance of IS and ambulation. Response: Patient complaint with care, but needs reminding and encouraging. Will continue to monitor. Mary Espino RN 12/25/2017 13:08 Plan of Care - Silvia Dudley RN - 12/25/2017 0805 EDT Problem: Daily Care Plan Goals Goal: Care Plan Documentation Outcome: Ongoing at Discharge Date Met: 12/25/17 12/24/17 195 Care Plan Focus Area of Focus Pain/ Comfort Goal This Shift pain will be adequately managed Pain Note D - The patient reported 8-10 pain. The reported pain location was incisional and generalized. On Ketamine gtt, on Morphine HIGH SPEED WARPER TENDER, Morphine IR Q3h PRN, etc (see MAR). [...] prn. CTM. 12/25/2017 8:00 Silvia Dudley RN Plan of Care - Meredith Rush RN - 12/24/2017 0414 EDT Problem: Daily [...] about pain management, patient ordered for morphine HIGH SPEED WARPER TENDER. HIGH SPEED WARPER TENDER started per NOV, reviewed use with patient. UA collected per order. Garcia removed, patient DTV @ 0400. MD notified about increasing abdominal pain, NPO with sips. R-Patient continues to report significant pain despite interventions. No void, scanned for 144mL. Stable and resting comfortably. Will continue to monitor. Plan of Care - Arthur Norman RN - [...] Provider aware. Arthur Norman RN 12/23/2017 14:54 Plan of Care - La Salmon - 12/23/2017 [...] safe on unit. [place]mon 12/23/2017 13:19 Plan of Care - Isabelle Gamble RN - 12/23/2017 1951 EDT Critical Value Note D - Patient has a low critical value for Hemoglobin of 6.0 and a Hematocrit of 18.8. A - Notified provider Ignacio Mcgraw. R - 1 unit of RBCs currently infusing. Pain medication orders modified overnight. See eMAR. CXray and CT scan this AM for HCT drop and to assess for intra-abdominal or splenic bleeds. 12/23/2017 7:32 Isabelle Gamble, MINDA Plan of Care - Isabelle Gamble, RN - 12/22/2017 1034 EDT Data: Pt is POD#2 s/p MVR 29mm St Bebeto Epic. Pt drowsy and oriented to person, place, and time (2017and Wednesday for date yesterday). Pt has a HIGH SPEED WARPER TENDER and ketamine infusing. Continuous encouragement and HIGH SPEED WARPER TENDER education is needed as the often does not press her HIGH SPEED WARPER TENDER button. Pt was not utilizing HIGH SPEED WARPER TENDER button at start of the shift. NSR in the 80's with a st degree AVB on tele. Action: IV morphine, PO dilaudid, and acetaminophen administered in addition to continuous infusions. Provider and APS notified of Pt's lack of HIGH SPEED WARPER TENDER utilzation. APS recommending PRN boluses but not [...] sitter the pt has been pressing her HIGH SPEED WARPER TENDER this AM. Pt's boyfriend is on the unit and resting in the solarium overnight. Spoke with Pt's mom Nataly this AM. She would like Dr. Dumont to call her this AM with updates about plan of care@ Isabelle Gamble RN 12/22/2017 5:58 Anesthesia Post-Mo Sanon - 12/21/2017 0907 EDT Anesthesia Post op [...] apparent anesthetic complications Mo Rush 12/21/2017 9:07 Plan of Care - Erika Chen RN - [...] to Precedex and Ketamine. APS rec Dilaudid HIGH SPEED WARPER TENDER- awaiting order and willinitiate upon pt awakening. Erika Chen RN 12/20/2017 18:24 Brief Op Note - Dillon Montes PA - 12/20/2017 0814 EDT Cardiothoracic BRIEF OP NOTE 12/20/2017 Ish Orellana [id number] Alex Bliss Pre-op diagnosis: Mitral insufficiency Endocarditis IVDA Procedure: On Pump Mitral valve replacement [address] Bebeto Epic Post-op diagnosis: Same Surgeon: [x ] Lorene Dumont MD Petroleum Engineer: Dillon Montes PA-C Due to a lack of a qualified surgical processor, FISH Cui provided first assistance for this complex cardiac surgical procedure. Anesth: GET Attending MD Brenda Findings: Vegetation on atrial wall and leaflets. [...] A-Line [ ] IABP [x ]Mediastinal 36 Azerbaijani [x ] Mediastinal 28 Fr right angle [...] dirty/infected Dispo: to SICU, intubated FISH Allen Plan of Care - Wendie Smith RN - [...] bed. Continue to monitor. Wendie Smith RN Plan of Care - Christiane Bonilla RN - 12/19/2017 1843 [...] following all policies. Will continue to monitor. Plan of Care - Christiane Bonilla RN - [...] following all procedures. Will continue to monitor. Plan of Care - Sonja Lawler - 12/17/2017 [...] call back. Sonja Lawler RN 12/17/2017 16:22 Plan of Care - Rachelle Larose, RN - 12/16/2017 1900 EDT Problem: Daily [...] pt complaint with plan of care. CTM Plan of Care - Harika Madrigal, PhD - 12/16/2017 1634 EDT Medical Psychology 12/16/17 We have received the consult for Ish and will plan to meet with her for an initial consult tomorrow (Wed), as soon as scheduling allows. Thank you. Harika Madrigal, Ph.D. Licensed Psychologist-Doctorate Clinical Furniture Upholsterer Pager #[phone] Plan of Care - Maira Paz RN - 12/16/2017 0050 EDT Problem: Daily Care Plan Goals Goal: Care Plan Documentation Outcome: Ongoing 12/15/17 2019 Care Plan Focus Area of Focus Pain/ [...] to monitor. MAIRA PAZ RN 12/16/2017 0:47 Plan of Care - Mari Bush RN - 12/15/2017 1245 [...] to monitor. Mari Bush RN 12/15/2017 12:35 Plan of Care - Maira Paz RN - 12/15/2017 0101 EDT Problem: Daily [...] be very anxious and is tearful. Action: MD paged and came to bedside to assess patient. Emla cream at site. Encouraged patient to alternate heat and cold for comfort. An additional dose of ativan obtained. Tylenol given. Response: Patient currently resting in bed at this time, appears comfortable. Will continue to monitor. MAIRA PAZ RN 12/15/2017 0:56 Plan of Care - Mari Bush RN - 12/14/2017 1842 EDT Problem: [...] to monitor. Mari Bush RN 12/14/2017 18:37 Plan of Care - Maira Paz RN - [...] to monitor. MAIRA PAZ RN 12/14/2017 1:32 Plan of Care - Jonah Ardon RN - 12/13/2017 1045 EDT Problem: Daily [...] to monitor. JONAH ARDON RN 12/13/2017 10:42 Plan of Care - aNtalie Piper RN - 12/13/2017 0428 EDT Problem: [...] per protocol. Natalie Piper RN 12/13/2017 4:25 Plan of Care - Abigail Doe RN - 12/12/2017 0932 [...] to monitor. Abigail Doe RN 12/12/2017 9:22 Plan of Care - Natalie Piper RN - [...] per protocol. Natalie Piper RN 12/12/2017 5:40 Plan of Care - Abigail Doe RN - 12/11/2017 1207 [...] from yesterday. Abigail Doe RN 12/11/2017 11:56 Plan of Care - Maddi Allen RN - 12/11/2017 0242 [...] care to promote rest. Communicated with MD Leary to clarify plan for PICC placement. R: Pt sleeping comfortably. Call light in reach. Plan of Care - Abigail Doe RN - 12/10/2017 1245 EDT Problem: Daily Care [...] Threatened walking home in the snow to [facility]. Will continue to monitor. Abigail Doe RN 12/10/2017 12:20 Plan of Care - Maddi Allen RN - [...] with her until her mother is present. Plan of Care - Bella Weller RN - [...] pt sent to [facility] on tele w/ television maintenance man. Pt unable to tolerate will require general [...] Plan - Carrie Parrish MD - 12/09/2017 8166 EDT Attempted to see patient, but she was asleep. I called the chemistry lab - HIV VL will be finished on 12/10/17. Ish's nurse notified me that Ish would like her mother present when confirmatory results are reported to her. I called [facility] micro lab - blood cultures from 12/06 growing Enterococcus faecalis. Ampicillin susceptible. Isolate being sent to [facility] for gentamicin susceptibility testing. In light [...] this afternoon. Carrie Parrish MD 12/09/2017 15:06 Plan of Care - Neptali Joyner RN - 12/09/2017 0130 EDT Problem: Daily Care Plan Goals Goal: [...] at midnight for K[facility]STOPHER this AM. Neptali Joyner, RN 12/09/2017 1:12 Problem: High Fall Risk: Goal: Patient will Remain Free of Falls due to Med. Side Effects Outcome: Ongoing Problem: High Fall Risk: Add only for + Hendrich score - Add only risk factors indicated by assessment Goal: Patient Will Remain Free from Fall-Related Injury Outcome: Ongoing ACP (Advance Care Planning) - Jose Eduardo Valencia, RN - 12/08/2017 1448 EDT NOTE: Arrived on M-5 about 1300. Little agitated on arrival, C/O touching skin too hard. applying electrodes hurt, needed anxiety medicine. This not ordered and MD called and informed of request. Presents with red pet petichial rash all over body. A&O but quite verbal. Transfer Summary (Intrafacility) - Gerald Castro MD - [...] years ago, onmethadone 95 mg, confirmed with [facility]), depression, and anxiety who presented to [facility] with aone-month history of petechial rash, initially [...] use, depression, and anxiety who presented to [facility] with a one-month history of petechial rash [...] - methadone 95 mg daily (confirmed at [facility]) - may need dose adj if anticipating surgery with anesthesia VTE Prophylaxis holding pharm dvt ppx for anemia Code: Full Discharge Plan Uncertain at this time Consults Infectious Disease and CT surg Admission Status Inpatient. Anticipated duration of hospitalization is greater than two midnights due to infective endocarditis. Estrada Mccarthy MD 12:54 Internal Medicine Service PGY-1 [facility] Attending Attestation: I have interviewed and examined [...] Time (Source) Location / / Volume Laterality 01/25/2018 9:54 01/25/2018 EDT 10:25 EDT Narrative 01/25/2018 10:25 EDT CHEST 2 VIEWS ??01/25/2018 [...] chest. Procedure Note Brandon Sparrow MD - 01/25/2018Formatti ng of this note might be different from the original. CHEST 2 VIEWS 01/25/2018 9:54 AM Clinical [...] valve is present. Impression: Satisfactory post-op chest. Agatha WHITTEN IMG DIAGNOSTIC IMAGING ORDER CURTIS ECG REPORT - SCANNED (01/17/2018 12:52 EDT) Specimen (Source) Anatomical Collection Method Collection Time Re ceived Time Location / / Volume Laterality 01/17/2018 12:52 EDT Narrative This result has an attachment that is no t available. Scan 2 Planer Chain Offbearer PROCEDURE/MINOR SURGICAL ORD ERABLES ECG REPORT - SCANNED (01/04/2018 13:10 EDT) Specimen (Source) Anatomical Collection Method Collection Time Re ceived Time Location / / Volume Laterality 01/04/2018 13:10 EDT Narrative This result has an attachment that is no t available. Scan 2 Planer Chain Offbearer PROCEDURE/MINOR SURGICAL ORD ERABLES ECG REPORT - SCANNED (01/04/2018 10:50 EDT) Specimen (Source) Anatomical Collection Method Collection Time Re ceived Time Location / / Volume Laterality 01/04/2018 10:50 EDT Narrative This result has an attachment that is no t available. Scan 2 Planer Chain Offbearer PROCEDURE/MINOR SURGICAL ORD ERABLES ECG REPORT - SCANNED (01/03/2018 7:46 EDT) Specimen (Source) Anatomical Collection Method Collection Time Re ceived Time Location / / Volume Laterality 01/03/2018 7:46 EDT Narrative This result has an attachment that is no t available. Scan 2 Planer Chain Offbearer PROCEDURE/MINOR SURGICAL ORD ERABLES ECG REPORT - SCANNED (01/03/2018 7:45 EDT) Specimen (Source) Anatomical Collection Method Collection Time Re ceived Time Location / / Volume Laterality 01/03/2018 7:45 EDT Narrative This result has an attachment that is no t available. Scan 2 Planer Chain Offbearer PROCEDURE/MINOR SURGICAL ORD ERABLES TRANSFUSION RECORD - SCANNED (01/03/2018 7:45 EDT) Specimen (Source) Anatomical Collection Method Collection Time Re ceived Time Location / / Volume Laterality 01/03/2018 7:45 EDT Narrative This result has an attachment that is no t available. Scan 2 Planer Chain Offbearer LAB INFO SERVICE AND SUPPORT & PHONE RESULT (ABNORMAL) GLUCOSE, GLUCOMETER (12/30/2017 11:56 EDT) [facility] gist Method Time Signature Glucose, 105 (H) 70 - 100 12/30/2017 [facility] Fingerstick mg/dl 11:57 EDT CENTER LABORATORY SERVICES Credit Intern ID [id number] 12/30/2017 [facility] 11:57 EDT CENTER LABORATORY SERVICES Comment: Test Performed by Nursing [email or web address] meghan Specimen Anatomical Collection Method Collection Time Receive d Time (Source) Location / / Volume Laterality BLOOD SPECIMEN / 12/30/2017 11:56 018 Unknown EDT 11:57 EDT Britany Dumont MD CHEMISTRY & BLOOD GAS ORDERA BLES Performing Organization Address City/State/ZIP Code Phon e Number [facility] [address] [place] [address] SERVICES GLUCOSE, GLUCOMETER (12/30/2017 6:58 EDT) Analysis Performed At [facility] logist Time Signature Glucose, 100 70 - 100 12/30/2017 [facility] Fingerstick mg/dl 7:03 EDT CENTER LABORATORY SERVICES Credit Intern ID [id number] 12/30/2017 [facility] 7:03 EDT CENTER LABORATORY SERVICES Comment: Test Performed by Nursing Servi meghan Specimen Anatomical Collection Method Collection Time Receive d Time (Source) Location / / Volume Laterality BLOOD SPECIMEN / 12/30/2017 6:58 12/31/19 18 7:03 Unknown EDT EDT Britany Dumont MD CHEMISTRY & BLOOD GAS ORDERA BLES Performing Organization Address City/[facility]/ZIP Code Phon e Number [facility] [address] [place] [address] SERVICES (ABNORMAL) BUN (12/30/2017 5:47 EDT) athologist Signature BUN 9 (L) 10 - 12/30/2017 [facility] mg/dl 7:16 EDT CENTER LABORATORY SERVICES Specimen Anatomical Collection Method Collection Time Receive d Time (Source) Location / / Volume Laterality Blood specimen BLOOD SPECIMEN / 12/30/2017 5:47 2017 6:33 (specimen) Unknown EDT EDT Britany Dumont MD CHEMISTRY & BLOOD GAS ORDERA BLES Performing Organization Address [facility]/ZIP Code Phon e Number [facility] [address] [place] [address] SERVICES CREATININE (12/30/2017 5:47 EDT) athologist Signature Creatinine 0.79 0.52 - 12/30/2017 [facility] 1.04 mg/dl 7:16 EDT CENTER LABORATORY SERVICES GFR, Calculated 102 >60 12/30/2017 [facility] ml/min/1.7 7:16 EDT CENTER 3m2 LABORATORY SERVICES Comment: eGFR calculated using CKD-EPI equation f or non Americans. Multiply eGFR by 1.16 for Americans. Specimen Anatomical Collection Method Collection Time Receive d Time (Source) Location / / Volume Laterality Blood specimen BLOOD SPECIMEN / 12/30/2017 5:47 2017 6:33 (specimen) Unknown EDT EDT Britany Dumont MD CHEMISTRY & BLOOD GAS ORDERA BLES Performing Organization Address City/[facility]/ZIP Code Phon e Number [facility] [address] [place] [address] SERVICES (ABNORMAL) HEMAGRAM AND DIFFERENTIAL (12/30/2017 5:47 EDT) [facility] gist Method Time Signature WBC 10.07 4.0 - 12/30/2017 [facility] 12.4 7:01 EDT CENTER K/cmm LABORATORY SERVICES RBC 3.16 (L) 3.86 - 12/30/2017 [facility] 5.04 7:01 EDT CENTER M/count includes the [facility] LABORATORY SERVICES Hemoglobin 8.6 (L) 11.6 - 12/30/2017 [facility] 15.2 7:01 EDT CENTER gm/dl LABORATORY SERVICES HCT 27.9 (L) 34.9 - 12/30/2017 [facility] 44.4 % 7:01 EDT CENTER LABORATORY SERVICES MCV 88 81 - 98 12/30/2017 [facility] fl 7:01 EDT CENTER LABORATORY SERVICES MCH 27.2 26.7 - 12/30/2017 [facility] 33.3 pg 7:01 EDT CENTER LABORATORY SERVICES MCHC 30.8 (L) 32.1 - 12/30/2017 [facility] 35.9 7:01 EDT CENTER gm/dl LABORATORY SERVICES RDW-CV 19.4 (H) <14.7 % 12/30/2017 [facility] 7:01 EDT CENTER LABORATORY SERVICES RDW-SD 62.4 (H) <50.4 fl 12/30/2017 [facility] 7:01 EDT CENTER LABORATORY SERVICES Anisocytosis 2+ 12/30/2017 [facility] 7:01 EDT CENTER LABORATORY SERVICES PLT 654 (H) 141 - 377 12/30/2017 [facility]/count includes the [facility] 7:01 EDT CENTER LABORATORY SERVICES MPV 8.8 (L) 9.5 - 12/30/2017 [facility] 12.7 fl 7:01 EDT CENTER LABORATORY SERVICES Neutrophils 56.8 % 12/30/2017 [facility] 7:01 EDT CENTER LABORATORY SERVICES Lymphocytes 31.7 % 12/30/2017 [facility] 7:01 EDT CENTER LABORATORY SERVICES Monocytes 4.9 % 12/30/2017 [facility] [facility] 7:01 EDT [facility] LABORATORY SERVICES Eosinophils 4.7 % 12/30/2017 [facility] 7:01 [facility]T [facility] SERVICES Basophils 0.5 % 12/30/2017 [facility] 7:01 EDT [facility]ENTER LAB[facility]ORY SERVICES Immature Grans 1.4 % 12/30/2017 [facility] 7:01 EDT CENTER LABORATORY SERVICES ABS Neutrophils 5.73 2.20 - 12/30/2017 [facility] 8.85 7:01 EDT CENTER K/count includes the [facility] LABORATORY SERVICES ABS Lymphs 3.19 1.09 - 12/30/2017 [facility] 3.30 7:01 EDT CENTER K/cmm LABORATORY SERVICES ABS Monocytes 0.49 0.1 - 0.8 12/30/2017 [facility] K/cmm 7:01 EDT CENTER LABORATORY SERVICES ABS Eosinophils 0.47 0.03 - 12/30/2017 [facility] 0.61 7:01 EDT CENTER K/cm LABORATORY SERVICES ABS Basophils 0.05 0.01 - 12/30/2017 [facility] 0.11 7:01 EDT CENTER K/count includes the [facility] LABORATORY SERVICES ABS Immature 0.14 (H) 0 - 0.06 12/30/2017 [facility] Grans K/cm 7:01 EDT CENTER LABORATORY SERVICES Type of Diff: Automated 12/30/2017 [facility] 7:01 EDT [facility] LAB[facility]ORY SERVICES Specimen Anatomical Collection Method Collection Time Receive d Time (Source) Location / / Volume Laterality Blood specimen BLOOD SPECIMEN / 12/30/2017 5:47 2017 6:33 (specimen) Unknown EDT EDT Rosalia Baugh MD PACKAGES & DNA PROBE ORDERAB LES Performing Organization Address City/State/ZIP Code Phon e Number [facility] [address] [place] [address] SERVICES (ABNORMAL) ELECTROLYTES (12/30/2017 5:47 EDT) P athologist Signature Sodium 137 136 - 145 12/30/2017 [facility] mEq/L 7:16 EDT CENTER LABORATORY SERVICES Potassium 5.4 (H) 3.5 - 5.0 12/30/2017 [facility] mEq/L 7:16 EDT CENTER LAB[facility]ORY SERVICES Chloride 99 96 - 110 12/30/2017 [facility] mEq/L 7:16 EDT CENTER LABORATORY SERVICES CO2 30 22 - 32 12/30/2017 [facility] mEq/L 7:16 EDT CENTER LABORATORY SERVICES Specimen Anatomical Collection Method Collection Time Receive d Time (Source) Location / / Volume Laterality Blood specimen BLOOD SPECIMEN / 12/30/2017 5:47 2017 6:33 (specimen) Unknown EDT EDT Gil Andrade PA-C CHEMISTRY & BLOOD GAS ORDERA BLES Performing Organization Address City/State/ZIP Code Phon e Number [facility] [address] [place] [address] SERVICES (ABNORMAL) GLUCOSE, GLUCOMETER (12/29/2017 21:22 EDT) Patholo gist Method Time Signature Glucose, 125 (H) 70 - 100 12/29/2017 [facility] Finger[facility] mg/dl 21:33 EDT CENTER LABORATORY SERVICES Credit Intern ID [id number] 12/29/2017 [facility] 21:33 EDT [facility] Comment: Test Performed by Nursing Servi meghan Specimen Anatomical Collection Method Collection Time Receive d Time (Source) Location / / Volume Laterality BLOOD SPECIMEN / 12/29/2017 21:22 018 Unknown EDT 21:33 EDT Britany Dumont MD CHEMISTRY & BLOOD GAS ORDERA BLES Performing Organization Address City/[facility]/ZIP Code Phon e Number [facility] [address] [place] [address] SERVICES (ABNORMAL) POTASSIUM (12/29/2017 17:42 EDT) P athologist Signature Potassium 5.1 (H) 3.5 - 5.0 12/29/2017 [facility] mEq/L 18:20 EDT CENTER LABORATORY SERVICES Specimen Anatomical Collection Method Collection Time Receive d Time (Source) Location / / Volume Laterality Blood specimen BLOOD SPECIMEN / 12/29/2017 17:42 12/29 (specimen) Unknown EDT 18:00 EDT Charlie Daniel MD CHEMISTRY & BLOOD GAS ORDERA BLES Performing Organization Address City/[facility]/ZIP Code Phon e Number [facility] [address] [place] [address] SERVICES GLUCOSE, GLUCOMETER (12/29/2017 16:56 EDT) Analysis Performed At Patho logist Time Signature Glucose, 73 70 - 100 12/29/2017 [facility] Fingerstick mg/dl 17:04 EDT CENTER LABORATORY SERVICES Credit Intern ID [id number] 12/29/2017 [facility] 17:04 [facility]T [facility] LAB[facility] SERVICES Comment: Test Performed by Nursing Servi meghan Specimen Anatomical Collection Method Collection Time Receive d Time (Source) Location / / Volume Laterality BLOOD SPECIMEN / 12/29/2017 16:56 018 Unknown EDT 17:04 EDT Britany Dumont MD CHEMISTRY & BLOOD GAS ORDERA BLES Performing Organization Address City/State/ZIP Code Phon e Number [facility] [address] [place] [phone] SERVICES (ABNORMAL) POTASSIUM (12/29/2017 16:13 EDT) P athologist Signature Potassium 8.7 (HH) 3.5 - 5.0 12/29/2017 [facility] mEq/L 17:18 EDT CENTER LABORATORY SERVICES Comment: Question specimen contaminated. Repeat sample requested. Specimen Anatomical Collection Method Collection Time Receive d Time (Source) Location / / Volume Laterality Blood specimen BLOOD SPECIMEN / 12/29/2017 16:13 12/29 (specimen) Unknown EDT 16:34 EDT Charlie Daniel MD CHEMISTRY & BLOOD GAS ORDERA BLES Performing Organization Address City/State/ZIP Code Phon e Number [facility] [address] [place] [address] SERVICES (ABNORMAL) GLUCOSE, GLUCOMETER (12/29/2017 14:34 EDT) Patholo gist Method Time Signature Glucose, 107 (H) 70 - 100 12/29/2017 [facility] Fingerstick mg/dl 14:34 EDT CENTER LABORATORY SERVICES Credit Intern ID [id number] 12/29/2017 [facility] 14:34 [facility]T [facility] Comment: Test Performed by Nursing Servi meghan Specimen Anatomical Collection Method Collection Time Receive d Time (Source) Location / / Volume Laterality BLOOD SPECIMEN / 12/29/2017 14:34 018 Unknown EDT 14:35 EDT Britany Dumont MD CHEMISTRY & BLOOD GAS ORDERA BLES Performing Organization Address City/State/ZIP Code Phon e Number [facility] [address] [place] [address] SERVICES (ABNORMAL) GLUCOSE, GLUCOMETER (12/29/2017 14:12 EDT) Analysis Performed At Patho logist Time Signature Glucose, 57 (L) 70 - 100 12/29/2017 [facility] Finger[facility] mg/dl 14:13 EDT CENTER LABORATORY SERVICES Credit Intern ID [id number] 12/29/2017 [facility] 14:13 EDT [facility] SERVICES Comment: Test Performed by Nursing Servi meghan Specimen Anatomical Collection Method Collection Time Receive d Time (Source) Location / / Volume Laterality BLOOD SPECIMEN / 12/29/2017 14:12 018 Unknown EDT 14:13 EDT Britany Dumont MD CHEMISTRY & BLOOD GAS ORDERA BLES Performing Organization Address City/State/ZIP Code Phon e Number [facility] [address] [place] [address] SERVICES EKG 12-LEAD (12/29/2017 12:57 EDT) Specimen (Source) Anatomical Collection Method Collection Time Re ceived Time Location / / Volume Laterality 12/29/2017 12:57 EDT Narrative [facility] - 01/04/2018 10:4 5 EDT ? [facility] ? Test Date: ?2017-12-29 Pat Name: ? ISH ORELLANA ? Department: ?? [facility] [address] ? Room: ? SB378 Gender: ? Female ? 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 Requested By: FREDY Mcnamara Order Number: [id number] ? Darlene INGRAM: ?? CARROLL TATUM MD ? Measurements Intervals ?[place] ? Rate: ? 73 ? P: ?61 [place]: ? 331 ?QRS: ?76 QRSD: ? 99 [...] MD. Procedure Note Carroll Tatum MD - 01/04/2018Formatt ing of this note might be different from the original. 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 Electronically Signed On 10:45:13 EDT by CARROLL TATUM MD. Charlie Daniel MD CARDIAC ECG ORDERABLES Performing Organization Address City/State/ZIP Code Phon e Number [facility] EKG (ABNORMAL) GENTAMICIN [place]AK (12/29/2017 12:18 EDT) [facility] gist Method Time Signature Gentamicin Peak 3.6 (L) 5.0 - 12/29/2017 [facility] 12.0 13:29 EDT CENTER ug/ml LABORATORY SERVICES Type of Draw CATHETER, 12/29/2017 [facility] ANY 11:48 EDT CENTER LABORATORY SERVICES Specimen Anatomical Collection Method Collection Time Receive d Time (Source) Location / / Volume Laterality Blood specimen BLOOD SPECIMEN / 12/29/2017 12:18 12/29 (specimen) Unknown EDT 12:44 EDT Britany Dumont MD CHEMISTRY & BLOOD GAS ORDERA BLES Performing Organization Address City/[facility]/ZIP Code Phon e Number [facility] [address] [place] [address] SERVICES GLUCOSE, GLUCOMETER (12/29/2017 11:30 EDT) [facility] Glucose, 99 70 - 100 12/29/2017 [facility] Fingerstick mg/dl 11:39 EDT CENTER LABORATORY [place] Credit Intern [place] [id number] 12/29/2017 [facility] 11:39 EDT CENTER LABORATORY SERVICES Comment: Test Performed by Nursing Natalya christianson Specimen Anatomical Collection Method Collection Time Receive d Time (Source) Location / / Volume Laterality BLOOD SPECIMEN / 12/29/2017 11:30 018 Unknown EDT 11:39 EDT Britany Dumont MD CHEMISTRY & BLOOD GAS ORDERA BLES Performing Organization Address City/[facility]/ZIP Code Phon e Number [facility] [address] [place] [address] SERVICES GENTAMICIN TROUGH (12/29/2017 11:05 EDT) [facility] gist Method Time Signature Gentamicin 0.6 <1.5 12/29/2017 [facility] Trough ug/ml 12:03 EDT CENTER LABORATORY SERVICES Type of Draw VENIPUNCTU 12/29/2017 [facility] RE/HEELSTI 9:40 EDT CENTER CK LABORATORY (PREFERRED SERVICES ) Specimen Anatomical Collection Method Collection Time Receive d Time (Source) Location / / Volume Laterality Blood specimen BLOOD SPECIMEN / 12/29/2017 11:05 12/29 (specimen) Unknown EDT 11:31 EDT Britany Dumont MD CHEMISTRY & BLOOD GAS ORDERA BLES Performing Organization Address City/State/ZIP Code Phon e Number [facility] [address] [place] [address] SERVICES GLUCOSE, GLUCOMETER (12/29/2017 7:21 EDT) Analysis Performed At Patho logist Time Signature Glucose, 85 70 - 100 12/29/2017 [facility] Fingerstick mg/dl 7:21 EDT CENTER LABORATORY SERVICES Credit Intern ID [id number] 12/29/2017 [facility] 7:21 EDT CENTER LABORATORY SERVICES Comment: Test Performed by Nursing Servi meghan Specimen Anatomical Collection Method Collection Time Receive d Time (Source) Location / / Volume Laterality BLOOD SPECIMEN / 12/29/2017 7:21 12/30/19 18 7:22 Unknown EDT EDT Britany Dumont MD CHEMISTRY & BLOOD GAS ORDERA BLES Performing Organization Address City/State/ZIP Code Phon e Number [facility] [address] [place] [address] SERVICES (ABNORMAL) BUN (12/29/2017 5:52 EDT) P athologist Signature BUN 7 (L) 10 - 26 12/29/2017 [facility] mg/dl 7:17 EDT CENTER LABORATORY SERVICES Specimen Anatomical Collection Method Collection Time Receive d Time (Source) Location / / Volume Laterality Blood specimen BLOOD SPECIMEN / 12/29/2017 5:52 2017 6:41 (specimen) Unknown EDT EDT Britany Dumont MD CHEMISTRY & BLOOD GAS ORDERA BLES Performing Organization Address City/State/ZIP Code Phon e Number [facility] [address] [place] [address] SERVICES CREATININE (12/29/2017 5:52 EDT) P athologist Signature Creatinine 0.84 0.52 - 12/29/2017 [facility] 1.04 mg/dl 7:17 EDT CENTER LABORATORY SERVICES GFR, Calculated 95 >60 12/29/2017 [facility] ml/min/1.7 7:17 EDT CENTER 3m2 LABORATORY SERVICES Comment: eGFR calculated using CKD-EPI equation f or non Americans. Multiply eGFR by 1.16 for Americans. Specimen Anatomical Collection Method Collection Time Receive d Time (Source) Location / / Volume Laterality Blood specimen BLOOD SPECIMEN / 12/29/2017 5:52 2017 6:41 (specimen) Unknown EDT EDT Birtany Dumont MD CHEMISTRY & BLOOD GAS ORDERA BLES Performing Organization Address City/State/ZIP Code Phon e Number [facility] [address] [place] [address] SERVICES (ABNORMAL) HEMAGRAM AND DIFFERENTIAL (12/29/2017 5:52 EDT) [facility] gist Method Time Signature WBC 9.19 4.0 - 12/29/2017 [facility] 12.4 6:49 EDT CENTER K/cmm LABORATORY SERVICES RBC 3.10 (L) 3.86 - 12/29/2017 [facility] 5.04 6:49 EDT CENTER M/cmm LABORATORY SERVICES Hemoglobin 8.5 (L) 11.6 - 12/29/2017 [facility] 15.2 6:49 EDT CENTER gm/dl LABORATORY SERVICES HCT 27.5 (L) 34.9 - 12/29/2017 [facility] 44.4 % 6:49 EDT CENTER LABORATORY SERVICES MCV 89 81 - 98 12/29/2017 [facility] fl 6:49 EDT CENTER LABORATORY SERVICES MCH 27.4 26.7 - 12/29/2017 [facility] 33.3 pg 6:49 EDT CENTER LABORATORY SERVICES MCHC 30.9 (L) 32.1 - 12/29/2017 [facility] 35.9 6:49 EDT CENTER gm/dl LABORATORY SERVICES RDW-CV 19.9 (H) <14.7 % 12/29/2017 [facility] 6:49 EDT CENTER LABORATORY SERVICES RDW-SD 63.9 (H) <50.4 fl 12/29/2017 [facility] 6:49 EDT CENTER LABORATORY SERVICES Anisocytosis 2+ 12/29/2017 [facility] 6:49 EDT CENTER LABORATORY SERVICES PLT 548 (H) 141 - 377 12/29/2017 [facility] K/cm 6:49 EDT CENTER LABORATORY SERVICES MPV 8.8 (L) 9.5 - 12/29/2017 [facility] 12.7 fl 6:49 EDT CENTER LABORATORY SERVICES Neutrophils 57.7 % 12/29/2017 [facility] 6:49 EDT CENTER LABORATORY SERVICES Lymphocytes 31.7 % 12/29/2017 [facility] 6:49 EDT CENTER LABORATORY SERVICES Monocytes 4.9 % 12/29/2017 [facility] 6:49 EDT CENTER LABORATORY SERVICES Eosinophils 4.1 % 12/29/2017 [facility] 6:49 EDT CENTER LABORATORY SERVICES Basophils 0.4 % 12/29/2017 [facility] 6:49 EDT CENTER LABORATORY SERVICES Immature Grans 1.2 % 12/29/2017 [facility] 6:49 EDT CENTER LABORATORY SERVICES ABS Neutrophils 5.30 2.20 - 12/29/2017 [facility] 8.85 6:49 EDT CENTER K/cmm LABORATORY SERVICES ABS Lymphs 2.91 1.09 - 12/29/2017 [facility] 3.30 6:49 EDT CENTER K/cm LABORATORY SERVICES ABS Monocytes 0.45 0.1 - 0.8 12/29/2017 [facility] K/cmm 6:49 EDT CENTER LABORATORY SERVICES ABS Eosinophils 0.38 0.03 - 12/29/2017 [facility] 0.61 6:49 EDT CENTER K/cm LABORATORY SERVICES ABS Basophils 0.04 0.01 - 12/29/2017 [facility] 0.11 6:49 EDT CENTER K/cm LABORATORY SERVICES ABS Immature 0.11 (H) 0 - 0.06 12/29/2017 [facility] Grans K/cm 6:49 EDT CENTER LABORATORY SERVICES Type of Diff: Automated 12/29/2017 [facility] 6:49 EDT CENTER LABORATORY SERVICES Specimen Anatomical Collection Method Collection Time Receive d Time (Source) Location / / Volume Laterality Blood specimen BLOOD SPECIMEN / 12/29/2017 5:52 2017 6:41 (specimen) Unknown EDT EDT Rosalia Baugh MD PACKAGES & DNA PROBE ORDERAB LES Performing Organization Address City/State/ZIP Code Phon e Number [facility] [address] [place] [address] SERVICES (ABNORMAL) ELECTROLYTES (12/29/2017 5:52 EDT) P athologist Signature Sodium 136 136 - 145 12/29/2017 [facility] mEq/L 7:17 EDT CENTER LABORATORY SERVICES Potassium 5.5 (H) 3.5 - 5.0 12/29/2017 [facility] mEq/L 7:17 EDT CENTER LABORATORY SERVICES Chloride 103 96 - 110 12/29/2017 [facility] mEq/L 7:17 EDT CENTER LABORATORY SERVICES CO2 28 22 - 32 12/29/2017 [facility] mEq/L 7:17 EDT CENTER LABORATORY SERVICES Specimen Anatomical Collection Method Collection Time Receive d Time (Source) Location / / Volume Laterality Blood specimen BLOOD SPECIMEN / 12/29/2017 5:52 2017 6:41 (specimen) Unknown EDT EDT Gil Andrade PA-C CHEMISTRY & BLOOD GAS ORDERA BLES Performing Organization Address City/[facility]/ZIP Code Phon e Number [facility] [address] [place] [address] SERVICES GLUCOSE, GLUCOMETER (12/28/2017 18:09 EDT) Analysis Performed At [facility] Time Signature Glucose, 77 70 - 100 12/28/2017 [facility] Fingerstick mg/dl 18:13 EDT CENTER LABORATORY SERVICES Credit Intern ID [id number] 12/28/2017 [facility] 18:13 EDT CENTER LABORATORY SERVICES Comment: Test Performed by Nursing Servi meghan Specimen Anatomical Collection Method Collection Time Receive d Time (Source) Location / / Volume Laterality BLOOD SPECIMEN / 12/28/2017 18:09 018 Unknown EDT 18:13 EDT Britany Dumont MD CHEMISTRY & BLOOD GAS ORDERA BLES Performing Organization Address City/State/ZIP Code Phon e Number [facility] [address] [place] [address] SERVICES GLUCOSE, GLUCOMETER (12/28/2017 12:13 EDT) Analysis Performed At [facility] logist Time Signature Glucose, 84 70 - 100 12/28/2017 [facility] Fingerstick mg/dl 12:17 EDT CENTER LABORATORY SERVICES Credit Intern ID [id number] 12/28/2017 [facility] 12:17 EDT CENTER LABORATORY SERVICES Comment: Test Performed by Nursing Servi meghan Specimen Anatomical Collection Method Collection Time Receive d Time (Source) Location / / Volume Laterality BLOOD SPECIMEN / 12/28/2017 12:13 018 Unknown EDT 12:17 EDT Britany Dumont MD CHEMISTRY & BLOOD GAS ORDERA BLES Performing Organization Address City/State/ZIP Code Phon e Number [facility] LAB[facility]ATORY [address] [place] [address] SERVICES GLUCOSE, GLUCOMETER (12/28/2017 6:52 EDT) [facility] Time Signature Glucose, 85 70 - 100 12/28/2017 [facility] Fingerstick mg/dl 6:58 EDT CENTER LABORATORY SERVICES Credit Intern ID [id number] 12/28/2017 [facility] 6:58 EDT CENTER LABORATORY SERVICES Comment: Test Performed by Nursing Servi meghan Specimen Anatomical Collection Method Collection Time Receive d Time (Source) Location / / Volume Laterality BLOOD SPECIMEN / 12/28/2017 6:52 12/29/19 18 6:58 Unknown EDT EDT Britany Dumont MD CHEMISTRY & BLOOD GAS ORDERA BLES Performing Organization Address City/State/ZIP Code Phon e Number [facility] [address] [place] [address] SERVICES (ABNORMAL) HEMAGRAM AND DIFFERENTIAL (12/28/2017 5:55 EDT) [facility] gist Method Time Signature WBC 9.15 4.0 - 12/28/2017 [facility] 12.4 6:48 EDT CENTER K/cmm LABORATORY SERVICES RBC 2.96 (L) 3.86 - 12/28/2017 [facility] 5.04 6:48 EDT CENTER M/cmm LABORATORY SERVICES Hemoglobin 8.2 (L) 11.6 - 12/28/2017 [facility] 15.2 6:48 EDT CENTER gm/dl LABORATORY SERVICES HCT 25.9 (L) 34.9 - 12/28/2017 [facility] 44.4 % 6:48 EDT CENTER LABORATORY SERVICES MCV 88 81 - 98 12/28/2017 [facility] fl 6:48 EDT CENTER LABORATORY SERVICES MCH 27.7 26.7 - 12/28/2017 [facility] 33.3 pg 6:48 EDT CENTER LABORATORY SERVICES MCHC 31.7 (L) 32.1 - 12/28/2017 [facility] 35.9 6:48 EDT CENTER gm/dl LABORATORY SERVICES RDW-CV 19.9 (H) <14.7 % 12/28/2017 [facility] 6:48 EDT CENTER LABORATORY SERVICES RDW-SD 63.3 (H) <50.4 fl 12/28/2017 [facility] 6:48 EDT CENTER LABORATORY SERVICES Anisocytosis 2+ 12/28/2017 [facility] 6:48 EDT CENTER LABORATORY SERVICES PLT 510 (H) 141 - 377 12/28/2017 [facility] K/count includes the [facility] 6:48 EDT CENTER LABORATORY SERVICES MPV 8.9 (L) 9.5 - 12/28/2017 [facility] 12.7 fl 6:48 EDT CENTER LABORATORY SERVICES Neutrophils 63.0 % 12/28/2017 [facility] 6:48 EDT CENTER LABORATORY SERVICES Lymphocytes 27.3 % 12/28/2017 [facility] 6:48 EDT CENTER LABORATORY SERVICES Monocytes 5.2 % 12/28/2017 [facility] 6:48 EDT CENTER LABORATORY SERVICES Eosinophils 3.0 % 12/28/2017 [facility] 6:48 EDT CENTER LABORATORY SERVICES Basophils 0.4 % 12/28/2017 [facility] 6:48 EDT CENTER LABORATORY SERVICES Immature Grans 1.1 % 12/28/2017 [facility] 6:48 EDT CENTER LABORATORY SERVICES ABS Neutrophils 5.76 2.20 - 12/28/2017 [facility] 8.85 6:48 EDT CENTER K/cm LABORATORY SERVICES ABS Lymphs 2.50 1.09 - 12/28/2017 [facility] 3.30 6:48 EDT CENTER K/cm LABORATORY SERVICES ABS Monocytes 0.48 0.1 - 0.8 12/28/2017 [facility] K/count includes the [facility] 6:48 EDT CENTER LABORATORY SERVICES ABS Eosinophils 0.27 0.03 - 12/28/2017 [facility] 0.61 6:48 EDT CENTER K/cm LABORATORY SERVICES ABS Basophils 0.04 0.01 - 12/28/2017 [facility] 0.11 6:48 EDT CENTER K/count includes the [facility] LABORATORY SERVICES ABS Immature 0.10 (H) 0 - 0.06 12/28/2017 [facility] Grans /count includes the [facility] 6:48 EDT CENTER LABORATORY SERVICES Type of Diff: Automated 12/28/2017 [facility] 6:48 EDT CENTER LABORATORY SERVICES Specimen Anatomical Collection Method Collection Time Receive d Time (Source) Location / / Volume Laterality Blood specimen BLOOD SPECIMEN / 12/28/2017 5:55 2017 6:31 (specimen) Unknown EDT EDT Rosalia Baugh MD PACKAGES & DNA PROBE ORDERAB LES Performing Organization Address City/State/ZIP Code Phon e Number [facility] [address] [place] [phone] SERVICES ELECTROLYTES (12/28/2017 5:55 EDT) P athologist Signature Sodium 137 136 - 145 12/28/2017 [facility] mEq/L 7:09 EDT CENTER LABORATORY SERVICES Potassium 4.7 3.5 - 5.0 12/28/2017 [facility] mEq/L 7:09 EDT CENTER LABORATORY SERVICES Chloride 104 96 - 110 12/28/2017 [facility] mEq/L 7:09 EDT CENTER LABORATORY SERVICES CO2 27 22 - 32 12/28/2017 [facility] mEq/L 7:09 EDT CENTER LABORATORY SERVICES Specimen Anatomical Collection Method Collection Time Receive d Time (Source) Location / / Volume Laterality Blood specimen BLOOD SPECIMEN / 12/28/2017 5:55 2017 6:31 (specimen) Unknown EDT EDT Gil Andrade PA-C CHEMISTRY & BLOOD GAS ORDERA BLES Performing Organization Address City/State/ZIP Code Phon e Number [facility] [address] [place] [phone] SERVICES GLUCOSE, GLUCOMETER (12/27/2017 22:09 EDT) Analysis Performed At Patho logist Time Signature Glucose, 99 70 - 100 12/27/2017 [facility] Fingerstick mg/dl 22:11 EDT CENTER LABORATORY SERVICES Credit Intern ID [id number] 12/27/2017 [facility] 22:11 EDT [facility] Comment: Test Performed by Nursing Natalya christianson Specimen Anatomical Collection Method Collection Time Receive d Time (Source) Location / / Volume Laterality BLOOD SPECIMEN / 12/27/2017 22:09 018 Unknown EDT 22:11 EDT Britany Dumont MD CHEMISTRY & BLOOD GAS ORDERA BLES Performing Organization Address City/State/ZIP Code Phon e Number [facility] [address] [phone] SERVICES GLUCOSE, GLUCOMETER (12/27/2017 17:11 EDT) Analysis Performed At [facility] logist Time Signature Glucose, 92 70 - 100 12/27/2017 [facility] Fingerstick mg/dl 17:32 EDT CENTER LABORATORY SERVICES Credit Intern ID [id number] 12/27/2017 [facility] 17:32 EDT CENTER LABORATORY SERVICES Comment: Test Performed by Nursing Servi meghan Specimen Anatomical Collection Method Collection Time Receive d Time (Source) Location / / Volume Laterality BLOOD SPECIMEN / 12/27/2017 17:11 018 Unknown EDT 17:32 EDT Britany Dumont MD CHEMISTRY & BLOOD GAS ORDERA BLES Performing Organization Address City/State/ZIP Code Phon e Number [facility] [address] [phone] SERVICES (ABNORMAL) GENTAMICIN PEAK (12/27/2017 14:32 EDT) [facility] gist Method Time Signature Gentamicin Peak 2.6 (L) 5.0 - 12/27/2017 [facility] 12.0 15:53 EDT CENTER ug/ml LABORATORY SERVICES Type of Draw CATHETER, 12/27/2017 [facility] ANY 14:44 EDT CENTER LABORATORY SERVICES Specimen Anatomical Collection Method Collection Time Receive d Time (Source) Location / / Volume Laterality Blood specimen BLOOD SPECIMEN / 12/27/2017 14:32 12/27 (specimen) Unknown EDT 15:05 EDT Britany Dumont MD CHEMISTRY & BLOOD GAS ORDERA BLES Performing Organization Address City/State/ZIP Code Phon e Number [facility] [address] [place] [address] SERVICES GENTAMICIN TROUGH (12/27/2017 13:10 EDT) [facility] gist Method Time Signature Gentamicin <0.4 <1.5 12/27/2017 [facility] Trough ug/ml 14:36 EDT CENTER LABORATORY SERVICES Type of Draw CATHETER, 12/27/2017 [facility] ANY 13:30 EDT CENTER LABORATORY SERVICES Specimen Anatomical Collection Method Collection Time Receive d Time (Source) Location / / Volume Laterality Blood specimen BLOOD SPECIMEN / 12/27/2017 13:10 12/27 (specimen) Unknown EDT 13:52 EDT Britany Dumont MD CHEMISTRY & BLOOD GAS ORDERA BLES Performing Organization Address City/State/ZIP Code Phon e Number [facility] [address] [place] [address] SERVICES GLUCOSE, GLUCOMETER (12/27/2017 12:02 EDT) Analysis Performed At [facility] Signature Glucose, 93 70 - 100 12/27/2017 [facility] Fingerstick mg/dl 12:06 EDT CENTER LABORATORY SERVICES Credit Intern ID [id number] 12/27/2017 [facility] 12:06 EDT CENTER LABORATORY SERVICES Comment: Test Performed by Nursing Servi meghan Specimen Anatomical Collection Method Collection Time Receive d Time (Source) Location / / Volume Laterality BLOOD SPECIMEN / 12/27/2017 12:02 018 Unknown EDT 12:06 EDT Britany Dumont MD CHEMISTRY & BLOOD GAS ORDERA BLES Performing Organization Address City/[facility]/ZIP Code Phon e Number [facility] [address] [place] [address] SERVICES ECG REPORT - SCANNED (12/27/2017 11:21 EDT) Specimen (Source) Anatomical Collection Method Collection Time Re ceived Time Location / / Volume Laterality 12/27/2017 11:21 EDT Narrative This result has an attachment that is no t available. Scan 2 Planer Chain Offbearer PROCEDURE/MINOR SURGICAL ORD ERABLES INPATIENT ADD-ON (12/27/2017 10:15 EDT) [facility] Method Time Signature Tests to be CREATININE 12/27/2017 [facility] added 10:11 EDT CENTER LABORATORY SERVICES Number for [id number] 12/27/2017 [facility] problems 10:19 EDT [facility]ENTER LAB[facility]ATORY SERVICES 12/27/2017 [facility] number 10:19 EDT CENTER LABORATORY SERVICES Specimen Anatomical Collection Method Collection Time Receive d Time (Source) Location / / Volume Laterality OTHER / Unknown 12/27/2017 10:15 12/28/19 18 EDT 10:18 EDT Britany Dumont MD HEMATOLOGY & PF4 ORDERABLES Performing Organization Address City/State/ZIP Code Phon e Number [facility] [address] [place] [address] SERVICES GLUCOSE, GLUCOMETER (12/27/2017 6:45 EDT) Analysis Performed At Patho logist Time Signature Glucose, 89 70 - 100 12/27/2017 [facility] Fingerstick mg/dl 7:09 EDT CENTER LABORATORY SERVICES Credit Intern ID [id number] 12/27/2017 [facility] 7:09 EDT CENTER LABORATORY SERVICES Comment: Test Performed by Nursing Natalya christianson Specimen Anatomical Collection Method Collection Time Receive d Time (Source) Location / / Volume Laterality BLOOD SPECIMEN / 12/27/2017 6:45 12/28/19 18 7:09 Unknown EDT EDT Britany Dumont MD CHEMISTRY & BLOOD GAS ORDERA BLES Performing Organization Address City/State/ZIP Code Phon e Number [facility] [address] [place] [address] SERVICES CREATININE (12/27/2017 4:02 EDT) P athologist Signature Creatinine 0.69 0.52 - 12/27/2017 [facility] 1.04 mg/dl 11:03 EDT CENTER LABORATORY SERVICES GFR, Calculated 119 >60 12/27/2017 [facility] ml/min/1.7 11:03 EDT CENTER 3m2 LABORATORY SERVICES Comment: eGFR calculated using CKD-EPI equation f or non Americans. Multiply eGFR by 1.16 for Americans. Specimen Anatomical Collection Method Collection Time Receive d Time (Source) Location / / Volume Laterality BLOOD SPECIMEN / 12/27/2017 4:02 12/28/19 18 5:32 Unknown EDT EDT Gil Andrade PA-C CHEMISTRY & BLOOD GAS ORDERA BLES Performing Organization Address City/[facility]/ZIP Code Phon e Number [facility] [address] [place] [address] SERVICES (ABNORMAL) HEMAGRAM AND DIFFERENTIAL (12/27/2017 4:02 EDT) Patholo gist Method Time Signature WBC 10.59 4.0 - 12/27/2017 [facility] 12.4 5:56 EDT CENTER K/cmm LABORATORY SERVICES RBC 2.83 (L) 3.86 - 12/27/2017 [facility] 5.04 5:56 EDT CENTER M/cmm LABORATORY SERVICES Hemoglobin 7.9 (L) 11.6 - 12/27/2017 [facility] 15.2 5:56 EDT CENTER gm/dl LABORATORY SERVICES HCT 25.0 (L) 34.9 - 12/27/2017 [facility] 44.4 % 5:56 EDT CENTER LABORATORY SERVICES MCV 88 81 - 98 12/27/2017 [facility] fl 5:56 EDT CENTER LABORATORY SERVICES MCH 27.9 26.7 - 12/27/2017 [facility] 33.3 pg 5:56 EDT CENTER LABORATORY SERVICES MCHC 31.6 (L) 32.1 - 12/27/2017 [facility] 35.9 5:56 EDT CENTER gm/dl LABORATORY SERVICES RDW-CV 20.1 (H) <14.7 % 12/27/2017 [facility] 5:56 EDT CENTER LABORATORY SERVICES RDW-SD 65.1 (H) <50.4 fl 12/27/2017 [facility] 5:56 EDT CENTER LABORATORY SERVICES Anisocytosis 2+ 12/27/2017 [facility] 5:56 EDT CENTER LABORATORY SERVICES PLT 485 (H) 141 - 377 12/27/2017 [facility] K/cmm 5:56 EDT CENTER LABORATORY SERVICES MPV 9.0 (L) 9.5 - 12/27/2017 [facility] 12.7 fl 5:56 EDT CENTER LABORATORY SERVICES Neutrophils 70.6 % 12/27/2017 [facility] 5:56 EDT CENTER LABORATORY SERVICES Lymphocytes 22.0 % 12/27/2017 [facility] 5:56 EDT CENTER LABORATORY SERVICES Monocytes 4.3 % 12/27/2017 [facility] 5:56 EDT CENTER LABORATORY SERVICES Eosinophils 1.7 % 12/27/2017 [facility] 5:56 EDT CENTER LABORATORY SERVICES Basophils 0.3 % 12/27/2017 [facility] 5:56 EDT CENTER LABORATORY SERVICES Immature Grans 1.1 % 12/27/2017 [facility] 5:56 EDT CENTER LABORATORY SERVICES ABS Neutrophils 7.47 2.20 - 12/27/2017 [facility] 8.85 5:56 EDT CENTER K/cmm LABORATORY SERVICES ABS Lymphs 2.33 1.09 - 12/27/2017 [facility] 3.30 5:56 EDT CENTER K/cmm LABORATORY SERVICES ABS Monocytes 0.46 0.1 - 0.8 12/27/2017 [facility] K/cm 5:56 EDT CENTER LABORATORY SERVICES ABS Eosinophils 0.18 0.03 - 12/27/2017 [facility] 0.61 5:56 EDT CENTER K/cmm LABORATORY SERVICES ABS Basophils 0.03 0.01 - 12/27/2017 [facility] 0.11 5:56 EDT CENTER K/cmm LABORATORY SERVICES ABS Immature 0.12 (H) 0 - 0.06 12/27/2017 [facility] Grans K/cmm 5:56 EDT CENTER LABORATORY SERVICES Type of Diff: Automated 12/27/2017 [facility] 5:56 EDT CENTER LABORATORY SERVICES Specimen Anatomical Collection Method Collection Time Receive d Time (Source) Location / / Volume Laterality Blood specimen BLOOD SPECIMEN / 12/27/2017 4:02 2017 5:32 (specimen) Unknown EDT EDT Rosalia Baugh MD PACKAGES & DNA PROBE ORDERAB LES Performing Organization Address City/State/ZIP Code Phon e Number [facility] [address] [place] [address] SERVICES ELECTROLYTES (12/27/2017 4:02 EDT) P athologist Signature Sodium 136 136 - 145 12/27/2017 [facility] mEq/L 6:12 EDT CENTER LABORATORY SERVICES Potassium 4.1 3.5 - 5.0 12/27/2017 [facility] mEq/L 6:12 EDT CENTER LABORATORY SERVICES Chloride 103 96 - 110 12/27/2017 [facility] mEq/L 6:12 EDT CENTER LABORATORY SERVICES CO2 28 22 - 32 12/27/2017 [facility] mEq/L 6:12 EDT CENTER LABORATORY SERVICES Specimen Anatomical Collection Method Collection Time Receive d Time (Source) Location / / Volume Laterality Blood specimen BLOOD SPECIMEN / 12/27/2017 4:02 2017 5:32 (specimen) Unknown EDT EDT Gil Andrade PA-C CHEMISTRY & BLOOD GAS ORDERA BLES Performing Organization Address City/State/ZIP Code Phon e Number [facility] [address] [place] [address] SERVICES GLUCOSE, GLUCOMETER (12/26/2017 22:07 EDT) Analysis Performed At Patho logist Time Signature Glucose, 99 70 - 100 12/26/2017 [facility] Fingerstick mg/dl 22:09 EDT CENTER LABORATORY SERVICES Credit Intern ID [id number] 12/26/2017 [facility] 22:09 EDT CENTER LABORATORY SERVICES Comment: Test Performed by Nursing Servi meghan Specimen Anatomical Collection Method Collection Time Receive d Time (Source) Location / / Volume Laterality BLOOD SPECIMEN / 12/26/2017 22:07 018 Unknown EDT 22:09 EDT Britany Dumont MD CHEMISTRY & BLOOD GAS ASHLYN BLES Performing Organization Address City/State/ZIP Code Phon e Number [facility] [address] [place] [address] SERVICES GLUCOSE, GLUCOMETER (12/26/2017 17:12 EDT) Analysis Performed At [facility] logist Time Signature Glucose, 82 70 - 100 12/26/2017 [facility] Fingerstick mg/dl 17:30 EDT CENTER LABORATORY SERVICES Credit Intern ID [id number] 12/26/2017 [facility] 17:30 EDT CENTER LABORATORY SERVICES Comment: Test Performed by Nursing Makenziei meghan Specimen Anatomical Collection Method Collection Time Receive d Time (Source) Location / / Volume Laterality BLOOD SPECIMEN / 12/26/2017 17:12 018 Unknown EDT 17:30 EDT Britany Dumont MD CHEMISTRY & BLOOD GAS ORDERA BLES Performing Organization Address City/State/ZIP Code Phon e Number [facility] [address] [place] [address] SERVICES GLUCOSE, GLUCOMETER (12/26/2017 12:28 EDT) [facility] Gl[facility], 96 70 - 100 12/26/2017 [facility] Fingerstick mg/dl 12:32 EDT CENTER LABORATORY SERVICES Credit Intern ID [id number] 12/26/2017 [facility] 12:32 EDT CENTER LABORATORY SERVICES Comment: Test Performed by Nursing Makenziei meghan Specimen Anatomical Collection Method Collection Time Receive d Time (Source) Location / / Volume Laterality BLOOD SPECIMEN / 12/26/2017 12:28 018 Unknown EDT 12:32 EDT Britany Dumont MD CHEMISTRY & BLOOD GAS ORDERGiovani BLEAinsley Performing Organization Address City/[facility]/ZIP Code Phon e Number [facility] [address] [place] [address] SERVICES (ABNORMAL) HEMAGRAM AND DIFFERENTIAL (12/26/2017 9:45 EDT) [facility] gist Method Time Signature WBC 12.22 4.0 - 12/26/2017 [facility] 12.4 10:05 EDT CENTER K/cmm LABORATORY SERVICES RBC 2.85 (L) 3.86 - 12/26/2017 [facility] 5.04 10:05 EDT CENTER M/cmm LABORATORY SERVICES Hemoglobin 7.9 (L) 11.6 - 12/26/2017 [facility] 15.2 10:05 EDT CENTER gm/dl LABORATORY SERVICES HCT 24.4 (L) 34.9 - 12/26/2017 [facility] 44.4 % 10:05 EDT CENTER LABORATORY SERVICES MCV 86 81 - 98 12/26/2017 [facility] fl 10:05 EDT CENTER LABORATORY SERVICES MCH 27.7 26.7 - 12/26/2017 [facility] 33.3 pg 10:05 EDT CENTER LABORATORY SERVICES MCHC 32.4 32.1 - 12/26/2017 [facility] 35.9 10:05 EDT CENTER gm/dl LABORATORY SERVICES RDW-CV 20.2 (H) <14.7 % 12/26/2017 [facility] 10:05 EDT CENTER LABORATORY SERVICES RDW-SD 61.9 (H) <50.4 fl 12/26/2017 [facility] 10:05 EDT CENTER LABORATORY SERVICES Anisocytosis 2+ 12/26/2017 [facility] 10:05 EDT CENTER LABORATORY SERVICES PLT 468 (H) 141 - 377 12/26/2017 [facility] K/count includes the [facility] 10:05 EDT CENTER LABORATORY SERVICES MPV 9.0 (L) 9.5 - 12/26/2017 [facility] 12.7 fl 10:05 EDT CENTER LABORATORY SERVICES Neutrophils 74.7 % 12/26/2017 [facility] 10:05 EDT CENTER LABORATORY SERVICES Lymphocytes 19.1 % 12/26/2017 [facility] 10:05 EDT CENTER LABORATORY SERVICES Monocytes 3.8 % 12/26/2017 [facility] 10:05 EDT CENTER LABORATORY SERVICES Eosinophils 1.3 % 12/26/2017 [facility] 10:05 EDT CENTER LABORATORY SERVICES Basophils 0.2 % 12/26/2017 [facility] 10:05 EDT CENTER LABORATORY SERVICES Immature Grans 0.9 % 12/26/2017 [facility] 10:05 EDT CENTER LABORATORY SERVICES ABS Neutrophils 9.12 (H) 2.20 - 12/26/2017 [facility] 8.85 10:05 EDT CENTER K/cmm LABORATORY SERVICES ABS Lymphs 2.34 1.09 - 12/26/2017 [facility] 3.30 10:05 EDT CENTER K/cm LABORATORY SERVICES ABS Monocytes 0.46 0.1 - 0.8 12/26/2017 [facility] K/cmm 10:05 T CENTER LABORATORY SERVICES ABS Eosinophils 0.16 0.03 - 12/26/2017 [facility] 0.61 10:05 [place] K/count includes the [facility] LABORATORY SERVICES ABS Basophils 0.03 0.01 - 12/26/2017 [facility] 0.11 10:05 T [place] K/count includes the [facility] LABORATORY SERVICES ABS Immature 0.11 (H) 0 - 0.06 12/26/2017 [facility] [place] K/count includes the [facility] 10:05 T CENTER LABORATORY SERVICES Type of Diff: Automated 12/26/2017 [facility] 10:05 [facility] LABORATORY SERVICES Specimen Anatomical Collection Method Collection Time Receive d Time (Source) Location / / Volume Laterality Blood specimen BLOOD SPECIMEN / 12/26/2017 9:45 2017 9:56 (specimen) Unknown EDT EDT Britany Dumont MD PACKAGES & DNA PROBE ORDERAB LES Performing Organization Address City/State/ZIP Code Phon e Number [facility] [address] [place] [address] SERVICES GLUCOSE, GLUCOMETER (12/26/2017 7:03 EDT) Analysis Performed At Patho logist Time Signature Glucose, 91 70 - 100 12/26/2017 [facility] Fingerstick mg/dl 7:04 [facility] LABORATORY SERVICES Credit Intern ID [id number] 12/26/2017 [facility] 7:04 EDT CENTER LABORATORY SERVICES Comment: Test Performed by Nursing Natalya meghan Specimen Anatomical Collection Method Collection Time Receive d Time (Source) Location / / Volume Laterality BLOOD SPECIMEN / 12/26/2017 7:03 12/27/19 18 7:04 Unknown EDT EDT Britany Dumont MD CHEMISTRY & BLOOD GAS ORDERA BLES Performing Organization Address City/State/ZIP Code Phon e Number [facility] [address] [phone] SERVICES (ABNORMAL) ELECTROLYTES (12/26/2017 5:30 EDT) P athologist Signature Sodium 134 (L) 136 - 145 12/26/2017 [facility] mEq/L 6:29 EDT CENTER LABORATORY SERVICES Potassium 3.8 3.5 - 5.0 12/26/2017 [facility] mEq/L 6:34 EDT CENTER LABORATORY SERVICES Chloride 102 96 - 110 12/26/2017 [facility] mEq/L 6:29 EDT CENTER LABORATORY SERVICES CO2 27 22 - 32 12/26/2017 [facility] mEq/L 6:29 EDT CENTER LABORATORY SERVICES Specimen Anatomical Collection Method Collection Time Receive d Time (Source) Location / / Volume Laterality Blood specimen BLOOD SPECIMEN / 12/26/2017 5:30 2017 5:55 (specimen) Unknown EDT EDT Gil Andrade PA-C CHEMISTRY & BLOOD GAS ORDERA BLES Performing Organization Address City/State/ZIP Code Phon e Number [facility] [address] [place] [address] SERVICES (ABNORMAL) GLUCOSE, GLUCOMETER (12/25/2017 21:36 EDT) [facility] gist Method Time Signature Glucose, 101 (H) 70 - 100 12/25/2017 [facility] Fingerstick mg/dl 21:37 EDT CENTER LABORATORY SERVICES Credit Intern ID [id number] 12/25/2017 [facility] 21:37 EDT CENTER LABORATORY SERVICES Comment: Test Performed by Nursing Servi meghan Specimen Anatomical Collection Method Collection Time Receive d Time (Source) Location / / Volume Laterality BLOOD SPECIMEN / 12/25/2017 21:36 018 Unknown EDT 21:37 EDT Britany Dumont MD CHEMISTRY & BLOOD GAS ORDERA BLES Performing Organization Address City/State/ZIP Code Phon e Number [facility] [address] [place] [address] SERVICES TRANSFUSE RED BLOOD CELLS (12/25/2017 21:22 EDT) Specimen (Source) Anatomical Location Collection Method / Collectio n Time Received Time / Laterality Volume Blood specimen (specimen) Gil Andrade PA-C NURSING TREATMENT - BLOOD AD MINISTRATION GLUCOSE, GLUCOMETER (12/25/2017 17:51 EDT) Analysis Performed At [facility] logist Time Signature Glucose, 93 70 - 100 12/25/2017 [facility] Fingerstick mg/dl 17:52 EDT CENTER LABORATORY SERVICES Credit Intern ID [id number] 12/25/2017 [facility] 17:52 EDT CENTER LABORATORY SERVICES Comment: Test Performed by Nursing Servi meghan Specimen Anatomical Collection Method Collection Time Receive d Time (Source) Location / / Volume Laterality BLOOD SPECIMEN / 12/25/2017 17:51 018 Unknown EDT 17:52 EDT Britany Dumont MD CHEMISTRY & BLOOD GAS ORDERA BLES Performing Organization Address City/State/ZIP Code Phon e Number [facility] [address] [place] [address] SERVICES GLUCOSE, GLUCOMETER (12/25/2017 13:17 EDT) Analysis Performed At [facility] Signature Glucose, 79 70 - 100 12/25/2017 [facility] Fingerstick mg/dl 13:22 EDT CENTER LABORATORY SERVICES Credit Intern ID [id number] 12/25/2017 [facility] 13:22 EDT CENTER LABORATORY SERVICES Comment: Test Performed by Nursing Servi meghan Specimen Anatomical Collection Method Collection Time Receive d Time (Source) Location / / Volume Laterality BLOOD SPECIMEN / 12/25/2017 13:17 018 Unknown EDT 13:22 EDT Britany Dumont MD CHEMISTRY & BLOOD GAS ORDERA BLES Performing Organization Address City/State/ZIP Code Phon e Number [facility] [address] [place] [address] SERVICES GLUCOSE, GLUCOMETER (12/25/2017 6:42 EDT) Analysis Performed At [facility] Signature Glucose, 89 70 - 100 12/25/2017 [facility] Fingerstick mg/dl 6:42 EDT CENTER LABORATORY SERVICES Credit Intern ID [id number] 12/25/2017 [facility] 6:42 EDT CENTER LABORATORY SERVICES Comment: Test Performed by Nursing Servi meghan Specimen Anatomical Collection Method Collection Time Receive d Time (Source) Location / / Volume Laterality BLOOD SPECIMEN / 12/25/2017 6:42 12/26/19 18 6:43 Unknown EDT EDT Britany Dumont MD CHEMISTRY & BLOOD GAS ORDERA BLES Performing Organization Address City/State/ZIP Code Phon e Number [facility] [address] [place] [address] SERVICES (ABNORMAL) HEMAGRAM AND DIFFERENTIAL (12/25/2017 4:59 EDT) [facility] Method Time Signature WBC 15.07 (H) 4.0 - 12/25/2017 [facility] 12.4 6:01 EDT CENTER K/cmm LABORATORY SERVICES RBC 2.86 (L) 3.86 - 12/25/2017 [facility] 5.04 6:01 EDT CENTER M/cm LABORATORY SERVICES Hemoglobin 7.9 (L) 11.6 - 12/25/2017 [facility] 15.2 6:01 EDT CENTER gm/dl LABORATORY SERVICES HCT 24.4 (L) 34.9 - 12/25/2017 [facility] 44.4 % 6:01 EDT CENTER LABORATORY SERVICES MCV 85 81 - 98 12/25/2017 [facility] fl 6:01 EDT CENTER LABORATORY SERVICES MCH 27.6 26.7 - 12/25/2017 [facility] 33.3 pg 6:01 EDT CENTER LABORATORY SERVICES MCHC 32.4 32.1 - 12/25/2017 [facility] 35.9 6:01 EDT CENTER gm/dl LABORATORY SERVICES RDW-CV 20.2 (H) <14.7 % 12/25/2017 [facility] 6:01 EDT CENTER LABORATORY SERVICES RDW-SD 59.3 (H) <50.4 fl 12/25/2017 [facility] 6:01 EDT CENTER LABORATORY SERVICES Anisocytosis 2+ 12/25/2017 [facility] 6:01 EDT CENTER LABORATORY SERVICES PLT 436 (H) 141 - 377 12/25/2017 [facility] K/count includes the [facility] 6:01 EDT CENTER LABORATORY SERVICES MPV 9.2 (L) 9.5 - 12/25/2017 [facility] 12.7 fl 6:01 EDT CENTER LABORATORY SERVICES Neutrophils 76.7 % 12/25/2017 [facility] 6:01 EDT CENTER LABORATORY SERVICES Lymphocytes 17.7 % 12/25/2017 [facility] 6:01 EDT CENTER LABORATORY SERVICES Monocytes 4.1 % 12/25/2017 [facility] 6:01 EDT CENTER LABORATORY SERVICES Eosinophils 0.5 % 12/25/2017 [facility] 6:01 EDT CENTER LABORATORY SERVICES Basophils 0.2 % 12/25/2017 [facility] 6:01 EDT CENTER LABORATORY SERVICES Immature Grans 0.8 % 12/25/2017 [facility] 6:01 EDT CENTER LABORATORY SERVICES ABS Neutrophils 11.56 (H) 2.20 - 12/25/2017 [facility] 8.85 6:01 EDT CENTER /count includes the [facility] LABORATORY SERVICES ABS Lymphs 2.66 1.09 - 12/25/2017 [facility] 3.30 6:01 EDT CENTER /count includes the [facility] LABORATORY SERVICES ABS Monocytes 0.62 0.1 - 0.8 12/25/2017 [facility] K/cmm 6:01 EDT CENTER LABORATORY SERVICES ABS Eosinophils 0.08 0.03 - 12/25/2017 [facility] 0.61 6:01 EDT CENTER /count includes the [facility] LABORATORY SERVICES ABS Basophils 0.03 0.01 - 12/25/2017 [facility] 0.11 6:01 EDT CENTER /count includes the [facility] LABORATORY SERVICES ABS Immature 0.12 (H) 0 - 0.06 12/25/2017 [facility] Grans /count includes the [facility] 6:01 EDT CENTER LABORATORY SERVICES Type of Diff: Automated 12/25/2017 [facility] 6:01 EDT CENTER LABORATORY SERVICES Specimen Anatomical Collection Method Collection Time Receive d Time (Source) Location / / Volume Laterality Blood specimen BLOOD SPECIMEN / 12/25/2017 4:59 2017 5:56 (specimen) Unknown EDT EDT Rosalia Baugh MD PACKAGES & DNA PROBE ORDERAB LES Performing Organization Address City/State/ZIP Code Phon e Number [facility] [address] [place] [address] SERVICES (ABNORMAL) ELECTROLYTES (12/25/2017 4:59 EDT) P athologist Signature Sodium 135 (L) 136 - 145 12/25/2017 [facility] mEq/L 6:38 [facility] CENTER LABORATORY SERVICES Potassium 3.5 3.5 - 5.0 12/25/2017 [facility] mEq/L 6:38 [facility] CENTER LABORATORY SERVICES Chloride 102 96 - 110 12/25/2017 [facility] mEq/L 6:38 ED CENTER LABORATORY SERVICES CO2 27 22 - 32 12/25/2017 [facility] mEq/L 6:38 [facility] CENTER LABORATORY SERVICES Specimen Anatomical Collection Method Collection Time Receive d Time (Source) Location / / Volume Laterality Blood specimen BLOOD SPECIMEN / 12/25/2017 4:59 2017 5:56 (specimen) Unknown EDT EDT Gil Andrade PA-C CHEMISTRY & BLOOD GAS ORDERA BLES Performing Organization Address City/[facility]/ZIP Code Phon e Number [facility] [address] [place] [address] SERVICES CREATININE (12/25/2017 4:59 EDT) athologist Signature Creatinine 0.66 0.52 - 12/25/2017 [facility] 1.04 mg/dl 6:38 EDT CENTER LABORATORY SERVICES GFR, Calculated 121 >60 12/25/2017 [facility] ml/min/1.7 6:38 EDT CENTER 3m2 LABORATORY SERVICES Comment: eGFR calculated using CKD-EPI equation f or non Americans. Multiply eGFR by 1.16 for Americans. Specimen Anatomical Collection Method Collection Time Receive d Time (Source) Location / / Volume Laterality Blood specimen BLOOD SPECIMEN / 12/25/2017 4:59 2017 5:56 (specimen) Unknown EDT EDT Gil Andrade PA-C CHEMISTRY & BLOOD GAS ORDERA BLES Performing Organization Address City/[facility]/ZIP Code Phon e Number [facility] LAB[facility] [address] [place] [address] SERVICES BUN (12/25/2017 4:59 EDT) athologist Signature BUN 13 10 - 26 12/25/2017 [facility] mg/dl 6:38 EDT CENTER LABORATORY SERVICES Specimen Anatomical Collection Method Collection Time Receive d Time (Source) Location / / Volume Laterality Blood specimen BLOOD SPECIMEN / 12/25/2017 4:59 2017 5:56 (specimen) Unknown EDT EDT Gil Andrade PA-C CHEMISTRY & BLOOD GAS ORDERA BLES Performing Organization Address City/[facility]/ZIP Code Phon e Number [facility] [address] [place] [address] SERVICES GLUCOSE, GLUCOMETER (12/25/2017 4:05 EDT) Analysis Performed At [facility] logist Time Signature Glucose, 77 70 - 100 12/25/2017 [facility] Fingerstick mg/dl 4:07 EDT CENTER LABORATORY SERVICES Credit Intern ID [id number] 12/25/2017 [facility] 4:07 EDT CENTER LABORATORY SERVICES Comment: Test Performed by Nursing Natalya christianson Specimen Anatomical Collection Method Collection Time Receive d Time (Source) Location / / Volume Laterality BLOOD SPECIMEN / 12/25/2017 4:05 12/26/19 18 4:07 Unknown EDT EDT Britany Dumont MD CHEMISTRY & BLOOD GAS ORDERA BLES Performing Organization Address City/State/ZIP Code Phon e Number [facility] [address] [place] [phone] SERVICES TRANSFUSE RED BLOOD CELLS (12/24/2017 20:27 EDT) Specimen (Source) Anatomical Location Collection Method / Collectio n Time Received Time / Laterality Volume Blood specimen (specimen) Gil Andrade PA-C NURSING TREATMENT - BLOOD AD MINISTRATION GLUCOSE, GLUCOMETER (12/24/2017 17:33 EDT) Analysis Performed At [facility] Time Signature Glucose, 86 70 - 100 12/24/2017 [facility] Fingerstick mg/dl 17:35 EDT CENTER LABORATORY SERVICES Credit Intern ID [id number] 12/24/2017 [facility] 17:35 EDT CENTER LABORATORY SERVICES Comment: Test Performed by Nursing Servi meghan Specimen Anatomical Collection Method Collection Time Receive d Time (Source) Location / / Volume Laterality BLOOD SPECIMEN / 12/24/2017 17:33 018 Unknown EDT 17:35 EDT Britany Dumont MD CHEMISTRY & BLOOD GAS ORDERA BLES Performing Organization Address City/State/ZIP Code Phon e Number [facility] [address] [place] [phone] SERVICES CHEST PA AND LATERAL (12/24/2017 11:20 EDT) Anatomical Region Laterality Modality Other Specimen Anatomical Collection Method Collection Time Receive d Time (Source) Location / / Volume Laterality 12/24/2017 11:20 12/24/2017 EDT 11:59 EDT Narrative 12/24/2017 11:59 EDT CHEST PA AND LATERAL [...] valve. Procedure Note Brandon Sparrow MD - 12/24/2017Formatti ng of this note might be different from the original. CHEST PA AND LATERAL 12/24/2017 11:20 AM [...] replaced with a [employer] bioprosthetic valve. Gil Andrade PA-C IMG DIAGNOSTIC IMAGING ORDER CURTIS GLUCOSE, GLUCOMETER (12/24/2017 9:43 EDT) Analysis Performed At [facility] logist Time Signature Glucose, 85 70 - 100 12/24/2017 [facility] Fingerstick mg/dl 9:47 EDT CENTER LABORATORY SERVICES Credit Intern ID [id number] 12/24/2017 [facility] 9:47 EDT CENTER LABORATORY SERVICES Comment: Test Performed by Nursing Servi meghan Specimen Anatomical Collection Method Collection Time Receive d Time (Source) Location / / Volume Laterality BLOOD SPECIMEN / 12/24/2017 9:43 12/25/19 18 9:47 Unknown EDT EDT Britany Dumont MD CHEMISTRY & BLOOD GAS ORDERA BLES Performing Organization Address City/State/ZIP Code Phon e Number [facility] LAB[facility] [address] [place] [address] SERVICES PREPARE RED BLOOD CELLS (12/24/2017 8:06 EDT) [facility] gist Method Time Signature Product Code [id number] [facility] Donor Number [id number] [facility] Unit ABO O [facility] BLOOD BANK Unit Rh POS [facility] Unit Status TR^Transfuse [facility] Product [id number] [facility] Expiration [place] BLOOD Date BANK Unit Blood 5[address] [facility] Type Code [place] [facility]LOOD [facility] Coding System [id number] [facility] Specimen (Source) Anatomical Collection Method Collection Time Re ceived Time Location / / Volume Laterality 12/24/2017 8:06 EDT Gil Andrade PA-C BLOOD BANK ORDERABLES Performing Organization Address City/[facility]/ZIP Code Phon e Number [facility] B[facility] BANK [address] BLOOD BANK PREPARE RED BLOOD CELLS (12/24/2017 8:06 EDT) [facility] gist Method Time Signature Product Code [id number] [facility] Donor Number [id number] [facility] B[facility] Unit ABO O [facility] B[facility] Unit Rh NEG [facility] B[facility] Unit Status TR^Transfuse [facility] Product [id number] [facility] BLOOD Date BANK Unit Blood [address] [facility] Type [facility] BLOOD BANK Coding System [id number] [facility] B[facility] Specimen (Source) Anatomical Collection Method Collection Time Re ceived Time Location / / Volume Laterality Blood specimen 12/24/2017 8:06 (specimen) EDT Gil Andrade PA-C BLOOD BANK ORDERABLES Performing Organization Address City/[facility]/ZIP Code Phon e Number [facility] B[facility]ANK [address] [place] [address]. [address] BLOOD BANK GLUCOSE, GLUCOMETER (12/24/2017 6:54 EDT) Analysis Performed At [facility] logist Time Signature Glucose, 89 70 - 100 12/24/2017 [facility] Fingerstick mg/dl 6:59 EDT CENTER LABORATORY SERVICES Credit Intern ID [id number] 12/24/2017 [facility] 6:59 EDT CENTER LABORATORY SERVICES Comment: Test Performed by Nursing Natalya meghan Specimen Anatomical Collection Method Collection Time Receive d Time (Source) Location / / Volume Laterality BLOOD SPECIMEN / 12/24/2017 6:54 12/25/19 18 6:59 Unknown EDT EDT Britany Dumont MD CHEMISTRY & BLOOD GAS ORDERA BLES Performing Organization Address City/State/ZIP Code Phon e Number [facility] LAB[facility] [address] [place] [address] SERVICES LIPASE (12/24/2017 5:30 EDT) P athologist Signature Lipase 183 <251 U/L 12/24/2017 [facility] 6:31 EDT CENTER LABORATORY SERVICES Specimen Anatomical Collection Method Collection Time Receive d Time (Source) Location / / Volume Laterality Blood specimen BLOOD SPECIMEN / 12/24/2017 5:30 2017 5:56 (specimen) Unknown EDT EDT Ignacio Mcgraw MD CHEMISTRY & BLOOD GAS ORDERA BLES Performing Organization Address City/State/ZIP Code Phon e Number [facility] [address] [place] [phone] SERVICES (ABNORMAL) HEMAGRAM AND DIFFERENTIAL (12/24/2017 5:30 EDT) Patholo gist Method Time Signature WBC 13.55 (H) 4.0 - 12/24/2017 [facility] 12.4 6:18 EDT CENTER K/cmm LABORATORY SERVICES RBC 2.42 (L) 3.86 - 12/24/2017 [facility] 5.04 6:18 EDT CENTER M/cmm LABORATORY SERVICES Hemoglobin 6.5 (LL) 11.6 - 12/24/2017 [facility] 15.2 6:18 EDT CENTER gm/dl LABORATORY SERVICES HCT 20.9 (LL) 34.9 - 12/24/2017 [facility] 44.4 % 6:18 EDT CENTER LABORATORY SERVICES MCV 86 81 - 98 12/24/2017 [facility] fl 6:18 EDT CENTER LABORATORY SERVICES MCH 26.9 26.7 - 12/24/2017 [facility] 33.3 pg 6:18 EDT CENTER LABORATORY SERVICES MCHC 31.1 (L) 32.1 - 12/24/2017 [facility] 35.9 6:18 EDT CENTER gm/dl LABORATORY SERVICES RDW-CV 21.8 (H) <14.7 % 12/24/2017 [facility] 6:18 EDT CENTER LABORATORY SERVICES RDW-SD 65.8 (H) <50.4 fl 12/24/2017 [facility] 6:18 EDT CENTER LABORATORY SERVICES Anisocytosis 2+ 12/24/2017 [facility] 6:18 EDT CENTER LABORATORY SERVICES PLT 373 141 - 377 12/24/2017 [facility] K/cm 6:18 EDT CENTER LABORATORY SERVICES MPV 8.9 (L) 9.5 - 12/24/2017 [facility] 12.7 fl 6:18 EDT CENTER LABORATORY SERVICES Neutrophils 77.9 % 12/24/2017 [facility] 6:18 EDT CENTER LABORATORY SERVICES Lymphocytes 16.9 % 12/24/2017 [facility] 6:18 EDT CENTER LABORATORY SERVICES Monocytes 4.2 % 12/24/2017 [facility] 6:18 EDT CENTER LABORATORY SERVICES Eosinophils 0.1 % 12/24/2017 [facility] 6:18 EDT CENTER LABORATORY SERVICES Basophils 0.1 % 12/24/2017 [facility] 6:18 EDT CENTER LABORATORY SERVICES Immature Grans 0.8 % 12/24/2017 [facility] 6:18 EDT CENTER LABORATORY SERVICES ABS Neutrophils 10.54 (H) 2.20 - 12/24/2017 [facility] 8.85 6:18 EDT CENTER K/count includes the [facility] LABORATORY SERVICES ABS Lymphs 2.29 1.09 - 12/24/2017 [facility] 3.30 6:18 EDT CENTER K/count includes the [facility] LABORATORY SERVICES ABS Monocytes 0.57 0.1 - 0.8 12/24/2017 [facility] K/count includes the [facility] 6:18 EDT CENTER LABORATORY SERVICES ABS Eosinophils 0.02 (L) 0.03 - 12/24/2017 [facility] 0.61 6:18 EDT CENTER /count includes the [facility] LABORATORY SERVICES ABS Basophils 0.02 0.01 - 12/24/2017 [facility] 0.11 6:18 EDT CENTER K/count includes the [facility] LABORATORY SERVICES ABS Immature 0.11 (H) 0 - 0.06 12/24/2017 [facility] Grans K/count includes the [facility] 6:18 EDT CENTER LABORATORY SERVICES Type of Diff: Automated 12/24/2017 [facility] 6:18 EDT CENTER LABORATORY SERVICES Specimen Anatomical Collection Method Collection Time Receive d Time (Source) Location / / Volume Laterality Blood specimen BLOOD SPECIMEN / 12/24/2017 5:30 2017 5:56 (specimen) Unknown EDT EDT Rosalia Baugh MD PACKAGES & DNA PROBE ORDERAB LES Performing Organization Address City/State/ZIP Code Phon e Number [facility] [address] [place] [address] SERVICES (ABNORMAL) ELECTROLYTES (12/24/2017 5:30 EDT) athologist Signature Sodium 135 (L) 136 - 145 12/24/2017 [facility] mEq/L 6:31 EDT CENTER LABORATORY SERVICES Potassium 4.0 3.5 - 5.0 12/24/2017 [facility] mEq/L 6:31 T CENTER LABORATORY SERVICES Chloride 102 96 - 110 12/24/2017 [facility] mEq/L 6:31 EDT CENTER LABORATORY SERVICES CO2 30 22 - 32 12/24/2017 [facility] mEq/L 6:31 EDT CENTER LABORATORY SERVICES Specimen Anatomical Collection Method Collection Time Receive d Time (Source) Location / / Volume Laterality Blood specimen BLOOD SPECIMEN / 12/24/2017 5:30 2017 5:56 (specimen) Unknown EDT EDT Gil Andrade PA-C CHEMISTRY & BLOOD GAS ORDERA BLES Performing Organization Address City/State/ZIP Code Phon e Number [facility] [address] [place] [phone] SERVICES CREATININE (12/24/2017 5:30 EDT) athologist Signature Creatinine 0.69 0.52 - 12/24/2017 [facility] 1.04 mg/dl 6:31 T CENTER LABORATORY SERVICES GFR, Calculated 119 >60 12/24/2017 [facility] ml/min/1.7 6:31 T CENTER 3m2 LABORATORY SERVICES Comment: eGFR calculated using CKD-EPI equation f or non Americans. Multiply eGFR by 1.16 for Americans. Specimen Anatomical Collection Method Collection Time Receive d Time (Source) Location / / Volume Laterality Blood specimen BLOOD SPECIMEN / 12/24/2017 5:30 2017 5:56 (specimen) Unknown EDT EDT Gil Andrade PA-C CHEMISTRY & BLOOD GAS ORDERA BLES Performing Organization Address City/State/ZIP Code Phon e Number [facility] [address] [place] [address] SERVICES BUN (12/24/2017 5:30 EDT) athologist Signature BUN 17 10 - 26 12/24/2017 [facility] mg/dl 6:31 EDT CENTER LABORATORY SERVICES Specimen Anatomical Collection Method Collection Time Receive d Time (Source) Location / / Volume Laterality Blood specimen BLOOD SPECIMEN / 12/24/2017 5:30 2017 5:56 (specimen) Unknown EDT EDT Gil Andrade PA-C CHEMISTRY & BLOOD GAS ORDERA BLES Performing Organization Address City/[facility]/ZIP Code Phon e Number [facility] [address] [place] [address] SERVICES BACTERIAL CULTURE, URINE (12/23/2017 23:30 EDT) P athologist Signature Result No growth 12/25/2017 [facility] 7:19 EDT CENTER LABORATORY SERVICES Specimen Anatomical Collection Method Collection Time Receive d Time (Source) Location / / Volume Laterality URINE / Unknown 12/23/2017 23:30 04 18 7:37 EDT EDT Britany Dumont MD MICROBIOLOGY - GENERAL ORDER CURTIS Performing Organization Address City/[facility]/ZIP Code Phon e Number [facility] [address] [place] [phone] SERVICES URINE CULTURE IF UA POSITIVE - NON POCT URINALYSIS ONLY (12/23/2017 23:30 EDT) [facility] Method [place] Signature Culture if Culture 12/24/2017 [facility] Indicated indicated by 0:23 EDT CENTER urinalysis LABORATORY results. SERVICES Specimen Anatomical Collection Method Collection Time Receive d Time (Source) Location / / Volume Laterality Urine OTHER / Unknown 12/23/2017 23:30 12/24/19 18 (substance) EDT 23:53 EDT Rosalia Baugh MD MICROBIOLOGY - GENERAL ORDER CURTIS Performing Organization Address City/State/ZIP Code Phon e Number [facility] [address] [place] [address] SERVICES (ABNORMAL) UA, CHEMICAL AND SEDIMENT ANALYSIS (DIPSTICK AND MICROSCOPIC) (12/23/2017 23:30 EDT) [facility] gist Method Time Signature Color, UA Yellow 12/24/2017 [facility] 0:23 EDT CENTER LABORATORY SERVICES Clarity, UA Clear 12/24/2017 [facility] 0:23 EDT CENTER LABORATORY SERVICES Glucose, UA Neg Neg 12/24/2017 [facility] 0:23 EDT CENTER LABORATORY SERVICES Bilirubin, UA Neg Neg 12/24/2017 [facility] 0:23 [facility] CENTER LABORATORY SERVICES Ketones, UA Neg Neg 12/24/2017 [facility] 0:23 [facility] LABORATORY SERVICES Refractometer 1.039 (H) 1.001 - 12/24/2017 [facility] SG,Urine 1.035 0:23 [facility] CENTER LABORATORY SERVICES Comment: Results greater than 1.035 suggest possi ble interference from glucose or radiographic dye. Blood, UA 2+ (A) Neg 12/24/2017 0:23 EDT [facility] LABORATORY SERVICES pH, UA 6.0 4.6 - 8.0 12/24/2017 0:23 T [facility] LABORATORY SERVICES Protein, UA 1+ (A) Neg 12/24/2017 0:23 T [facility] LABORATORY SERVICES Urobilinogen, UA Normal Normal E.U./dl 12/24/2017 0:23 ED [facility] LABORATORY SERVICES Nitrite, UA Neg Neg 12/24/2017 0:23 T [facility] LABORATORY SERVICES Leuk Esterase Neg Neg 12/24/2017 0:23 EDT [facility] LABORATORY SERVICES UA Method Used 12/23/2017 18:16 [facility] LABORATORY SERVICES Comment: Testing performed using Aditive AU-4050. Urine RBC Count >50 (A) 0 to 2 /HPF 12/24/2017 0:23 [facility] Automated EDT LABORATORY SERVICES Urine WBC Count 4 to 10 (A) 0 to 3 /HPF 12/24/2017 0:23 [facility] Automated EDT LABORATORY SERVICES Urine Squamous Moderate (A) None seen 12/24/2017 0:23 [facility] Epithelial Cell /LPF EDT LABORATORY Count, Automated SERVICES Urine Hyaline < or = 10 < or = 10 12/24/2017 0:23 [facility] Casts, Automated /LPF EDT LABORATORY SERVICES Urine Bacteria None seen None seen 12/24/2017 0:23 [facility] Count, Automated EDT LABORATORY SERVICES Additional Findings Few 12/24/2017 0:23 [facility] EDT LABORATORY SERVICES Comment: Yeast Moderate Hyaline Casts w/ Granular Inclusions UA Comment Sediment results 12/24/2017 0:23 EDT [facility] LABORATORY SERVICES Comment: are unreliable on urines unrefrig >2hrs or refrig >8hrs. Specimen Anatomical Collection Method Collection Time Receive d Time (Source) Location / / Volume Laterality Urine URINE / Unknown 12/23/2017 23:30 12/24/19 18 (substance) EDT 23:53 EDT Rosalia Baugh MD URINALYSIS ORDERABLES Performing Organization Address City/[facility]/ZIP Code Phon e Number [facility] [address] [place] [address] SERVICES GLUCOSE, GLUCOMETER (12/23/2017 21:11 EDT) Analysis Performed At [facility] Signature Glucose, 98 70 - 100 12/23/2017 [facility] Fingerstick mg/dl 21:13 EDT CENTER LABORATORY SERVICES Credit Intern ID [id number] 12/23/2017 [facility] 21:13 EDT CENTER LABORATORY SERVICES Comment: Test Performed by Nursing Servi meghan Specimen Anatomical Collection Method Collection Time Receive d Time (Source) Location / / Volume Laterality BLOOD SPECIMEN / 12/23/2017 21:11 018 Unknown EDT 21:13 EDT Britany Dumont MD CHEMISTRY & BLOOD GAS ORDERA BLES Performing Organization Address City/[facility]/ZIP Code Phon e Number [facility] [address] [place] [address] SERVICES GLUCOSE, GLUCOMETER (12/23/2017 17:41 EDT) Analysis Performed At [facility] Signature Glucose, 86 70 - 100 12/23/2017 [facility] Fingerstick mg/dl 17:50 EDT CENTER LABORATORY SERVICES Credit Intern ID [id number] 12/23/2017 [facility] 17:50 EDT CENTER LABORATORY SERVICES Comment: Test Performed by Nursing Servi meghan Specimen Anatomical Collection Method Collection Time Receive d Time (Source) Location / / Volume Laterality BLOOD SPECIMEN / 12/23/2017 17:41 018 Unknown EDT 17:50 EDT Britany Dumont MD CHEMISTRY & BLOOD GAS ORDERA BLES Performing Organization Address City/State/ZIP Code Phon e Number [facility] [address] [place] [address] SERVICES GLUCOSE, GLUCOMETER (12/23/2017 12:42 EDT) Analysis Performed At Patho logist Time Signature Glucose, 94 70 - 100 12/23/2017 [facility] Fingerstick mg/dl 12:47 EDT CENTER LABORATORY SERVICES Credit Intern ID [id number] 12/23/2017 [facility] 12:47 EDT [facility]ENTER LABORATORY SERVICES Comment: Test Performed by Nursing Natalya christianson Specimen Anatomical Collection Method Collection Time Receive d Time (Source) Location / / Volume Laterality BLOOD SPECIMEN / 12/23/2017 12:42 018 Unknown EDT 12:47 EDT Britany Dumont MD CHEMISTRY & BLOOD GAS ORDERA BLES Performing Organization Address City/State/ZIP Code Phon e Number [facility] [address] [place] [address] SERVICES MAGNESIUM (12/23/2017 10:20 EDT) athologist Signature Magnesium 2.0 1.7 - 2.8 12/23/2017 [facility] mg/dl 11:59 EDT CENTER LABORATORY SERVICES Specimen Anatomical Collection Method Collection Time Receive d Time (Source) Location / / Volume Laterality Blood specimen BLOOD SPECIMEN / 12/23/2017 10:20 12/23 (specimen) Unknown EDT 11:25 EDT Rosaila Baugh MD CHEMISTRY & BLOOD GAS ORDERA BLES Performing Organization Address City/State/ZIP Code Phon e Number [facility] [address] [place] [address] SERVICES AMYLASE (12/23/2017 10:20 EDT) athologist Signature Amylase 95 30 - 110 12/23/2017 [facility] U/L 11:59 EDT CENTER LABORATORY SERVICES Specimen Anatomical Collection Method Collection Time Receive d Time (Source) Location / / Volume Laterality Blood specimen BLOOD SPECIMEN / 12/23/2017 10:20 12/23 (specimen) Unknown EDT 11:25 EDT Rosalia Baugh MD CHEMISTRY & BLOOD GAS ORDERA BLES Performing Organization Address City/[facility]/ZIP Code Phon e Number [facility] [address] [place] [address] SERVICES TOTAL & DIRECT BILIRUBIN (12/23/2017 10:20 EDT) Analysis Performed At Patho logist Time Signature Conjugated 0.0 0.0 - 0.3 12/23/2017 [facility] Bilirubin mg/dl 11:59 [facility] SERVICES Unconjugated 0.2 0.0 - 1.1 12/23/2017 [facility] Bilirubin mg/dl 11:59 [facility] Bilirubin, Total <0.5 <1.4 mg/dl 12/23/2017 [facility] 11:59 [facility] Specimen Anatomical Collection Method Collection Time Receive d Time (Source) Location / / Volume Laterality Blood specimen BLOOD SPECIMEN / 12/23/2017 10:20 12/23 (specimen) Unknown EDT 11:25 EDT Rosalia Baugh MD CHEMISTRY & BLOOD GAS ORDERA BLES Performing Organization Address City/State/ZIP Code Phon e Number [facility] [address] [place] [address] SERVICES ALT (12/23/2017 10:20 EDT) P athologist Signature ALT 25 <53 U/L 12/23/2017 [facility] 11:59 [facility] Specimen Anatomical Collection Method Collection Time Receive d Time (Source) Location / / Volume Laterality Blood specimen BLOOD SPECIMEN / 12/23/2017 10:20 12/23 (specimen) Unknown EDT 11:25 EDT Rosalia Baugh MD CHEMISTRY & BLOOD GAS ORDERA BLES Performing Organization Address City/State/ZIP Code Phon e Number [facility] [address] [place] [address] SERVICES AST (12/23/2017 10:20 EDT) P athologist Signature AST 25 15 - 46 U/L 12/23/2017 [facility] 11:59 EDT [facility]ENTER LABORATORY SERVICES Specimen Anatomical Collection Method Collection Time Receive d Time (Source) Location / / Volume Laterality Blood specimen BLOOD SPECIMEN / 12/23/2017 10:20 12/23 (specimen) Unknown EDT 11:25 EDT Rosalia Baugh MD CHEMISTRY & BLOOD GAS ORDERA BLES Performing Organization Address City/State/ZIP Code Phon e Number [facility] [address] [place] [address] SERVICES (ABNORMAL) LIPASE (12/23/2017 10:20 EDT) P athologist Signature Lipase 313 (H) <251 U/L 12/23/2017 [facility] 11:59 EDT [facility]ENTER LABORATORY SERVICES Specimen Anatomical Collection Method Collection Time Receive d Time (Source) Location / / Volume Laterality Blood specimen BLOOD SPECIMEN / 12/23/2017 10:20 12/23 (specimen) Unknown EDT 11:25 EDT Rosalia Baugh MD CHEMISTRY & BLOOD GAS ORDERA BLES Performing Organization Address City/State/ZIP Code Phon e Number [facility] [address] [place] [address] SERVICES (ABNORMAL) HEMAGRAM AND DIFFERENTIAL (12/23/2017 10:20 EDT) [facility] Method Time Signature WBC 14.44 (H) 4.0 - 12/23/2017 [facility] 12.4 11:57 EDT CENTER K/cmm LABORATORY SERVICES RBC 2.69 (L) 3.86 - 12/23/2017 [facility] 5.04 11:57 EDT CENTER M/cm LABORATORY SERVICES Hemoglobin 7.3 (L) 11.6 - 12/23/2017 [facility] 15.2 11:57 EDT CENTER gm/dl LABORATORY SERVICES HCT 22.5 (L) 34.9 - 12/23/2017 [facility] 44.4 % 11:57 EDT CENTER LABORATORY SERVICES MCV 84 81 - 98 12/23/2017 [facility] fl 11:57 EDT [facility]ENTER LABORATORY SERVICES MCH 27.1 26.7 - 12/23/2017 [facility] 33.3 pg 11:57 EDT CENTER LABORATORY SERVICES MCHC 32.4 32.1 - 12/23/2017 [facility] 35.9 11:57 EDT CENTER gm/dl LABORATORY SERVICES RDW-CV 21.5 (H) <14.7 % 12/23/2017 [facility] 11:57 EDT CENTER LABORATORY SERVICES RDW-SD 63.5 (H) <50.4 fl 12/23/2017 [facility] 11:57 EDT CENTER LABORATORY SERVICES Anisocytosis 2+ 12/23/2017 [facility] 11:57 EDT CENTER LABORATORY SERVICES PLT 418 (H) 141 - 377 12/23/2017 [facility] K/cmm 11:57 EDT CENTER LABORATORY SERVICES MPV 9.5 9.5 - 12/23/2017 [facility] 12.7 fl 11:57 EDT CENTER LABORATORY SERVICES Neutrophils 78.0 % 12/23/2017 [facility] 11:57 EDT [facility]ENTER LABORATORY SERVICES Lymphocytes 17.1 % 12/23/2017 [facility] 11:57 EDT [facility]ENTER LABORATORY SERVICES Monocytes 3.9 % 12/23/2017 [facility] 11:57 EDT CENTER LABORATORY SERVICES Eosinophils 0.0 % 12/23/2017 [facility] 11:57 EDT CENTER LABORATORY SERVICES Basophils 0.1 % 12/23/2017 [facility] 11:57 EDT [facility]ENTER LABORATORY SERVICES Immature Grans 0.9 % 12/23/2017 [facility] 11:57 EDT CENTER LABORATORY SERVICES ABS Neutrophils 11.27 (H) 2.20 - 12/23/2017 [facility] 8.85 11:57 EDT CENTER K/count includes the [facility] LABORATORY SERVICES ABS Lymphs 2.47 1.09 - 12/23/2017 [facility] 3.30 11:57 EDT CENTER /count includes the [facility] LABORATORY SERVICES ABS Monocytes 0.56 0.1 - 0.8 12/23/2017 [facility] K/count includes the [facility] 11:57 EDT CENTER LABORATORY SERVICES ABS Eosinophils 0.00 (L) 0.03 - 12/23/2017 [facility] 0.61 11:57 EDT CENTER K/count includes the [facility] LABORATORY SERVICES ABS Basophils 0.01 0.01 - 12/23/2017 [facility] 0.11 11:57 EDT CENTER K/count includes the [facility] LABORATORY SERVICES ABS Immature 0.13 (H) 0 - 0.06 12/23/2017 [facility] Grans K/cm 11:57 EDT CENTER LABORATORY SERVICES Type of Diff: Automated 12/23/2017 [facility] 11:57 EDT [facility]ENTER LABORATORY SERVICES Specimen Anatomical Collection Method Collection Time Receive d Time (Source) Location / / Volume Laterality Blood specimen BLOOD SPECIMEN / 12/23/2017 10:20 12/23 (specimen) Unknown EDT 11:25 EDT Ignacio Mcgraw MD PACKAGES & DNA PROBE ORDERAB LES Performing Organization Address City/State/ZIP Code Phon e Number [facility] [address] [place] [address] SERVICES EKG 12-LEAD (12/23/2017 8:19 EDT) Specimen (Source) Anatomical Collection Method Collection Time Re ceived Time Location / / Volume Laterality 12/23/2017 8:19 EDT Narrative [facility] E[facility] - 01/17/2018 12:4 8 EDT ? [facility] ? Test Date: ?2017-12-23 Pat Name: ? ISH ORELLANA ? Department: ?? [facility] ? Room: ? SB378 Gender: ? Female ? 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 Requested By: RENZO Vasquez Order Number: [id number] ? Reading MD: ?? AUBREY BELCHER ? Measurements Intervals ?[place] ? Rate: ? 87 ? P: ?89 [place]: ? 304 ?QRS: ?48 QRSD: ? 92 [...] BELCHER. Procedure Note Aubrey Belcher MD - 01/17/2018Fo rmatting of this note might be different from the original. 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 Gil Andrade PA-C CARDIAC ECG ORDERABLES Performing Organization Address City/State/ZIP Code Phon e Number [facility] EKG (ABNORMAL) ELECTROLYTES (12/23/2017 5:50 EDT) athologist Signature Sodium 133 (L) 136 - 145 12/23/2017 [facility] mEq/L 7:05 [facility]ENTER LABORATORY SERVICES Potassium 4.2 3.5 - 5.0 12/23/2017 [facility] mEq/L 7:05 [facility]ENTER LABORATORY SERVICES Chloride 101 96 - 110 12/23/2017 [facility] mEq/L 7:05 [facility] CENTER LABORATORY SERVICES CO2 27 22 - 32 12/23/2017 [facility] mEq/L 7:05 [facility] LABORATORY SERVICES Specimen Anatomical Collection Method Collection Time Receive d Time (Source) Location / / Volume Laterality Blood specimen BLOOD SPECIMEN / 12/23/2017 5:50 2017 6:26 (specimen) Unknown EDT EDT Gil Andrade PA-C CHEMISTRY & BLOOD GAS ORDERA BLES Performing Organization Address [facility]/ZIP Code Phon e Number [facility] [address] [place] [address] SERVICES CREATININE (12/23/2017 5:50 EDT) athologist Signature Creatinine 0.69 0.52 - 12/23/2017 [facility] 1.04 mg/dl 7:05 [facility] LABORATORY SERVICES GFR, Calculated 119 >60 12/23/2017 [facility] ml/min/1.7 7:05 T CENTER 3m2 LABORATORY SERVICES Comment: eGFR calculated using CKD-EPI equation f or non Americans. Multiply eGFR by 1.16 for Americans. Specimen Anatomical Collection Method Collection Time Receive d Time (Source) Location / / Volume Laterality Blood specimen BLOOD SPECIMEN / 12/23/2017 5:50 2017 6:26 (specimen) Unknown EDT EDT Gil Andrade PA-C CHEMISTRY & BLOOD GAS ORDERA BLES Performing Organization Address City/State/ZIP Code Phon e Number [facility] [address] [place] [address] SERVICES BUN (12/23/2017 5:50 EDT) athologist Signature BUN 21 10 - 26 12/23/2017 [facility] mg/dl 7:05 EDT CENTER LABORATORY SERVICES Specimen Anatomical Collection Method Collection Time Receive d Time (Source) Location / / Volume Laterality Blood specimen BLOOD SPECIMEN / 12/23/2017 5:50 2017 6:26 (specimen) Unknown EDT EDT Gil Andrade PA-C CHEMISTRY & BLOOD GAS ORDERA BLES Performing Organization Address City/State/ZIP Code Phon e Number [facility] [address] [place] [phone] SERVICES GLUCOSE, GLUCOMETER (12/23/2017 5:39 EDT) Analysis Performed At [facility] logist Time Signature Glucose, 94 70 - 100 12/23/2017 [facility] Fingerstick mg/dl 5:44 EDT CENTER LABORATORY SERVICES Credit Intern ID [id number] 12/23/2017 [facility] 5:44 [facility] LAB[facility]ORY SERVICES Comment: Test Performed by Nursing Servi meghan Specimen Anatomical Collection Method Collection Time Receive d Time (Source) Location / / Volume Laterality BLOOD SPECIMEN / 12/23/2017 5:39 12/24/19 18 5:44 Unknown EDT EDT Britany Dumont MD CHEMISTRY & BLOOD GAS ORDERA BLES Performing Organization Address City/State/ZIP Code Phon e Number [facility] [address] [place] [address] ABD W/WO AND PELVIS W CONTRAST (12/23/2017 5:20 EDT) Anatomical Region Laterality Modality Other Specimen Anatomical Collection Method Collection Time Receive d Time (Source) Location / / Volume Laterality 12/23/2017 5:20 12/23/2017 EDT 10:17 EDT Narrative 12/23/2017 10:[address] ABD W/WO PELVIS [...] findings. Procedure Note Imtiaz Elias MD - 12/23/2017For matting of this note might be different from the original. CT ABD W/WO PELVIS W CONTRAST 12/23/2017 [...] above interpretation and agree with the findings. Ignacio Mcgraw MD IMG CT ORDERABLES PORTABLE CHEST 1 VIEW (12/23/2017 4:29 EDT) Anatomical Region Laterality Modality Other Specimen Anatomical Collection Method Collection Time Receive d Time (Source) Location / / Volume Laterality 12/23/2017 4:29 12/23/2017 8 :44 EDT EDT Narrative 12/23/2017 8:44 EDT PORTABLE CHEST 1 VIEW [...] findings. Procedure Note Ajit Bailon MD - 12/23/2017Format ting of this note might be different from the original. PORTABLE CHEST 1 VIEW 12/23/2017 4:29 AM [...] above interpretation and agree with the findings. Ignacio Mcgraw MD IM DIAGNOSTIC IMAGING ORDER CURTIS TYPE AND SCREEN (12/23/2017 4:20 EDT) [facility] Method Time Signature Antibody Negative [facility] BLOOD BANK Specimen 12/26/2017 @ [facility] Expires: 23:59 [place] BLOOD BANK ABO O [facility] B[facility] Rh Factor Positive [facility] B[facility]OD [facility] Specimen (Source) Anatomical Collection Method Collection Time Re ceived Time Location / / Volume Laterality Blood specimen 12/23/2017 4:20 (specimen) EDT Ignacio Mcgraw MD BLOOD BANK TESTS Performing Organization Address City/State/ZIP Code Phon e Number [facility] BLOOD BANK [address] [place] [address] [facility] B[facility] B[facility] PREPARE RED BLOOD CELLS (12/23/2017 4:07 EDT) [facility] Method Time Signature Product Code [id number] [facility] B[facility]OD BANK Donor Number [id number] [facility] BLOOD B[facility] Unit ABO O [facility] BLOOD B[facility] Unit Rh POS [facility] BLOOD B[facility] Unit Status TR^Transfuse [facility] BLOOD [facility]ANK Product [id number] [facility] Expiration CENTER BLOOD Date BANK Unit Blood 5100 [facility] Type Code CENTER BLOOD BANK Coding System [id number] [facility] BLOOD BANK Specimen (Source) Anatomical Collection Method Collection Time Re ceived Time Location / / Volume Laterality Blood specimen 12/23/2017 4:07 (specimen) EDT Ignacio Mcgraw MD BLOOD BANK ORDERABLES Performing Organization Address City/[facility]/ZIP Code Phon e Number [facility] BLOOD BANK [address] BLOOD BANK LACTIC ACID (12/23/2017 2:12 EDT) athologist Signature Lactic Acid 0.8 <2.0 mmol/L 12/23/2017 [facility] 2:43 EDT CENTER LABORATORY SERVICES Specimen Anatomical Collection Method Collection Time Receive d Time (Source) Location / / Volume Laterality Blood specimen BLOOD SPECIMEN / 12/23/2017 2:12 2017 2:29 (specimen) Unknown EDT EDT Ignacio Mcgraw MD CHEMISTRY & BLOOD GAS ORDERA BLES Performing Organization Address City/State/ZIP Code Phon e Number [facility] [address] [place] [address] SERVICES (ABNORMAL) HEMAGRAM AND DIFFERENTIAL (12/23/2017 2:12 EDT) [facility] Method Time Signature WBC 12.61 (H) 4.0 - 12/23/2017 [facility] 12.4 2:39 EDT CENTER K/cmm LABORATORY SERVICES RBC 2.29 (L) 3.86 - 12/23/2017 [facility] 5.04 2:39 EDT CENTER M/cmm LABORATORY SERVICES Hemoglobin 6.0 (LL) 11.6 - 12/23/2017 [facility] 15.2 2:39 EDT CENTER gm/dl LABORATORY SERVICES HCT 18.8 (LL) 34.9 - 12/23/2017 [facility] 44.4 % 2:39 EDT CENTER LABORATORY SERVICES MCV 82 81 - 98 12/23/2017 [facility] fl 2:39 EDT CENTER LABORATORY SERVICES MCH 26.2 (L) 26.7 - 12/23/2017 [facility] 33.3 pg 2:39 EDT CENTER LABORATORY SERVICES MCHC 31.9 (L) 32.1 - 12/23/2017 [facility] 35.9 2:39 EDT CENTER gm/dl LABORATORY SERVICES RDW-CV 23.4 (H) <14.7 % 12/23/2017 [facility] 2:39 EDT CENTER LABORATORY SERVICES RDW-SD 68.9 (H) <50.4 fl 12/23/2017 [facility] 2:39 EDT CENTER LABORATORY SERVICES Anisocytosis 2+ 12/23/2017 [facility] 2:39 EDT CENTER LABORATORY SERVICES PLT 362 141 - 377 12/23/2017 [facility] K/cmm 2:39 EDT CENTER LABORATORY SERVICES MPV 9.3 (L) 9.5 - 12/23/2017 [facility] 12.7 fl 2:39 EDT CENTER LABORATORY SERVICES Neutrophils 77.1 % 12/23/2017 [facility] 2:39 EDT CENTER LABORATORY SERVICES Lymphocytes 17.7 % 12/23/2017 [facility] 2:39 EDT CENTER LABORATORY SERVICES Monocytes 4.4 % 12/23/2017 [facility] 2:39 EDT CENTER LABORATORY SERVICES Eosinophils 0.0 % 12/23/2017 [facility] 2:39 EDT CENTER LABORATORY SERVICES Basophils 0.1 % 12/23/2017 [facility] 2:39 EDT CENTER LABORATORY SERVICES Immature Grans 0.7 % 12/23/2017 [facility] 2:39 EDT CENTER LABORATORY SERVICES ABS Neutrophils 9.72 (H) 2.20 - 12/23/2017 [facility] 8.85 2:39 EDT CENTER K/cmm LABORATORY SERVICES ABS Lymphs 2.23 1.09 - 12/23/2017 [facility] 3.30 2:39 EDT CENTER K/cmm LABORATORY SERVICES ABS Monocytes 0.56 0.1 - 0.8 12/23/2017 [facility] K/cm 2:39 EDT CENTER LABORATORY SERVICES ABS Eosinophils 0.00 (L) 0.03 - 12/23/2017 [facility] 0.61 2:39 EDT CENTER K/cmm LABORATORY SERVICES ABS Basophils 0.01 0.01 - 12/23/2017 [facility] 0.11 2:39 EDT CENTER K/m LABORATORY SERVICES ABS Immature 0.09 (H) 0 - 0.06 12/23/2017 [facility] Grans K/m 2:39 EDT CENTER LABORATORY SERVICES Type of Diff: Automated 12/23/2017 [facility] 2:39 EDT CENTER LABORATORY SERVICES Specimen Anatomical Collection Method Collection Time Receive d Time (Source) Location / / Volume Laterality Blood specimen BLOOD SPECIMEN / 12/23/2017 2:12 2017 2:29 (specimen) Unknown EDT EDT Ignacio Mcgraw MD PACKAGES & DNA PROBE ORDERAB LES Performing Organization Address City/State/ZIP Code Phon e Number [facility] [address] [place] [phone] SERVICES (ABNORMAL) GLUCOSE, GLUCOMETER (12/22/2017 21:34 EDT) [facility] gist Method Time Signature Glucose, 103 (H) 70 - 100 12/22/2017 [facility] Fingerstick mg/dl 21:38 EDT CENTER LABORATORY SERVICES Credit Intern ID [id number] 12/22/2017 [facility] 21:38 EDT CENTER LABORATORY SERVICES Comment: Test Performed by Nursing Servi meghan Specimen Anatomical Collection Method Collection Time Receive d Time (Source) Location / / Volume Laterality BLOOD SPECIMEN / 12/22/2017 21:34 018 Unknown EDT 21:38 EDT Britany Dumont MD CHEMISTRY & BLOOD GAS ORDERA BLES Performing Organization Address City/State/ZIP Code Phon e Number [facility] [address] [place] [address] SERVICES (ABNORMAL) GLUCOSE, GLUCOMETER (12/22/2017 12:26 EDT) [facility] gist Method Time Signature Glucose, 115 (H) 70 - 100 12/22/2017 [facility] Fingerstick mg/dl 12:32 EDT CENTER LABORATORY SERVICES Credit Intern ID [id number] 12/22/2017 [facility] 12:32 EDT CENTER LABORATORY SERVICES Comment: Test Performed by Nursing Servi meghan Specimen Anatomical Collection Method Collection Time Receive d Time (Source) Location / / Volume Laterality BLOOD SPECIMEN / 12/22/2017 12:26 018 Unknown EDT 12:32 EDT Britany Dumont MD CHEMISTRY & BLOOD GAS ORDERA BLES Performing Organization Address City/State/ZIP Code Phon e Number [facility] [address] [place] [address] SERVICES INPATIENT ADD-ON (12/22/2017 12:15 EDT) [facility] Method Time Signature Tests to be CREATININE 12/22/2017 [facility] added ,BUN 12:11 EDT CENTER [place] [id number] 12/22/2017 [facility] problems 12:17 EDT CENTER LABORATORY SERVICES 12/22/2017 [facility] number 12:17 EDT [facility]ENTER LABORATORY SERVICES Specimen Anatomical Collection Method Collection Time Receive d Time (Source) Location / / Volume Laterality OTHER / Unknown 12/22/2017 12:15 12/23/19 18 EDT 12:16 EDT Britany Dumont MD HEMATOLOGY & PF4 ORDERABLES Performing Organization Address City/State/ZIP Code Phon e Number [facility] [address] [place] [address] SERVICES (ABNORMAL) GLUCOSE, GLUCOMETER (12/22/2017 6:46 EDT) [facility] Method Time Signature Glucose, 123 (H) 70 - 100 12/22/2017 [facility] Fingerstick mg/dl 7:01 EDT CENTER LABORATORY SERVICES Credit Intern ID [id number] 12/22/2017 [facility] 7:01 EDT CENTER LABORATORY SERVICES Comment: Test Performed by Nursing Makenziei meghan Specimen Anatomical Collection Method Collection Time Receive d Time (Source) Location / / Volume Laterality BLOOD SPECIMEN / 12/22/2017 6:46 12/23/19 7:01 Unknown EDT EDT Britany Dumont MD CHEMISTRY & BLOOD GAS ORDERA BLES Performing Organization Address City/State/ZIP Code Phon e Number [facility] [address] [place] [address] SERVICES CREATININE (12/22/2017 5:48 EDT) athologist Signature Creatinine 0.82 0.52 - 12/22/2017 [facility] 1.04 mg/dl 12:53 EDT CENTER LABORATORY SERVICES GFR, Calculated 98 >60 12/22/2017 [facility] ml/min/1.7 12:53 EDT CENTER 3m2 LABORATORY SERVICES Comment: eGFR calculated using CKD-EPI equation f or non Americans. Multiply eGFR by 1.16 for Americans. Specimen Anatomical Collection Method Collection Time Receive d Time (Source) Location / / Volume Laterality BLOOD SPECIMEN / 12/22/2017 5:48 12/23/19 18 6:26 Unknown EDT EDT Gil Andrade PA-C CHEMISTRY & BLOOD GAS ORDERA BLES Performing Organization Address City/[facility]/ZIP Code Phon e Number [facility] [address] [place] [address] SERVICES BUN (12/22/2017 5:48 EDT) athologist Signature BUN 25 10 - 26 12/22/2017 [facility] mg/dl 12:53 EDT CENTER LABORATORY SERVICES Specimen Anatomical Collection Method Collection Time Receive d Time (Source) Location / / Volume Laterality BLOOD SPECIMEN / 12/22/2017 5:48 12/23/19 18 6:26 Unknown EDT EDT Gil Andrade PA-C CHEMISTRY & BLOOD GAS ORDERA BLES Performing Organization Address City/[facility]/ZIP Code Phon e Number [facility] [address] [place] [address] SERVICES (ABNORMAL) ELECTROLYTES (12/22/2017 5:48 EDT) athologist Signature Sodium 132 (L) 136 - 145 12/22/2017 [facility] mEq/L 7:11 EDT CENTER LABORATORY SERVICES Potassium 4.3 3.5 - 5.0 12/22/2017 [facility] mEq/L 7:11 EDT CENTER LABORATORY SERVICES Chloride 99 96 - 110 12/22/2017 [facility] mEq/L 7:11 EDT CENTER LABORATORY SERVICES CO2 26 22 - 32 12/22/2017 [facility] mEq/L 7:11 EDT CENTER LABORATORY SERVICES Specimen Anatomical Collection Method Collection Time Receive d Time (Source) Location / / Volume Laterality Blood specimen BLOOD SPECIMEN / 12/22/2017 5:48 2017 6:26 (specimen) Unknown EDT EDT Gil Andrade PA-C CHEMISTRY & BLOOD GAS ORDERA BLES Performing Organization Address City/[facility]/ZIP Code Phon e Number [facility] [address] [place] [address] SERVICES (ABNORMAL) GENTAMICIN PEAK (12/21/2017 22:13 EDT) [facility] Method Time Signature Gentamicin Peak 3.6 (L) 5.0 - 12/21/2017 [facility] 12.0 23:02 EDT CENTER ug/ml LABORATORY SERVICES Type of Draw CATHETER, 12/21/2017 [facility] ANY 22:14 EDT CENTER LABORATORY SERVICES Specimen Anatomical Collection Method Collection Time Receive d Time (Source) Location / / Volume Laterality Blood specimen BLOOD SPECIMEN / 12/21/2017 22:13 12/21 (specimen) Unknown EDT 22:40 EDT Britany Dumont MD CHEMISTRY & BLOOD GAS ORDERA BLES Performing Organization Address City/State/ZIP Code Phon e Number [facility] [address] [place] [address] SERVICES ECG REPORT - SCANNED (12/21/2017 21:50 EDT) Specimen (Source) Anatomical Collection Method Collection Time Re ceived Time Location / / Volume Laterality 12/21/2017 21:50 EDT Narrative This result has an attachment that is no t available. Scan 2 Planer Chain Offbearer PROCEDURE/MINOR SURGICAL ORD ERABLES ECG REPORT - SCANNED (12/21/2017 21:45 EDT) Specimen (Source) Anatomical Collection Method Collection Time Re ceived Time Location / / Volume Laterality 12/21/2017 21:45 EDT Narrative This result has an attachment that is no t available. Scan 2 Planer Chain Offbearer PROCEDURE/MINOR SURGICAL ORD ERABLES (ABNORMAL) GLUCOSE, GLUCOMETER (12/21/2017 21:12 EDT) [facility] Method Time Signature Glucose, 109 (H) 70 - 100 12/21/2017 [facility] Fingerstick mg/dl 21:17 EDT [facility] [place] Credit Intern [place] [id number] 12/21/2017 [facility] 21:17 EDT [facility] Comment: Test Performed by Nursing Natalya christianson Specimen Anatomical Collection Method Collection Time Receive d Time (Source) Location / / Volume Laterality BLOOD SPECIMEN / 12/21/2017 21:12 018 Unknown EDT 21:17 EDT Britany Dumont MD CHEMISTRY & BLOOD GAS ORDERA BLES Performing Organization Address City/State/ZIP Code Phon e Number [facility] [address] [place] [address] SERVICES GENTAMICIN TROUGH (12/21/2017 20:53 EDT) [facility] Method Time Signature Gentamicin 0.7 <1.5 12/21/2017 [facility] Trough ug/ml 21:52 EDT [facility] Type of Draw CATHETER, 12/21/2017 [facility] ANY 20:53 EDT [facility] Specimen Anatomical Collection Method Collection Time Receive d Time (Source) Location / / Volume Laterality Blood specimen BLOOD SPECIMEN / 12/21/2017 20:53 12/21 (specimen) Unknown EDT 21:25 EDT Britany Dumont MD CHEMISTRY & BLOOD GAS ORDERA BLES Performing Organization Address City/State/ZIP Code Phon e Number [facility] [address] [place] [address] SERVICES (ABNORMAL) GLUCOSE, GLUCOMETER (12/21/2017 17:44 EDT) [facility] Method Time Signature Glucose, 109 (H) 70 - 100 12/21/2017 [facility] Fingerstick mg/dl 18:46 EDT [facility] SERVICES Credit Intern ID [id number] 12/21/2017 [facility] 18:46 EDT [facility] Comment: Test Performed by Nursing Servi meghan Specimen Anatomical Collection Method Collection Time Receive d Time (Source) Location / / Volume Laterality BLOOD SPECIMEN / 12/21/2017 17:44 018 Unknown EDT 18:46 EDT Britany Dumont MD CHEMISTRY & BLOOD GAS ORDERA BLES Performing Organization Address City/State/ZIP Code Phon e Number [facility] [address] [place] [address] SERVICES PORTABLE CHEST 1 VIEW (12/21/2017 16:18 EDT) [facility] Laterality Modality Other Specimen Anatomical Collection Method Collection Time Receive d Time (Source) Location / / Volume Laterality 12/21/2017 16:18 12/21/2017 EDT 16:24 EDT Narrative 12/21/2017 16:24 EDT PORTABLE CHEST 1 VIEW [...] atelectasis. Procedure Note Marty Neville MD - 12/21/2017Formatt ing of this note might be different from the original. PORTABLE CHEST 1 VIEW 12/21/2017 4:18 PM [...] and incomplete rig ht lower lobe atelectasis. Rosalia Baugh MD IMG DIAGNOSTIC IMAGING ORDER CURTIS ECG REPORT - SCANNED (12/21/2017 13:56 EDT) Specimen (Source) Anatomical Collection Method Collection Time Re ceived Time Location / / Volume Laterality 12/21/2017 13:56 EDT Narrative This result has an attachment that is no t available. Scan 2 Planer Chain Offbearer PROCEDURE/MINOR SURGICAL ORD ERABLES (ABNORMAL) GLUCOSE, GLUCOMETER (12/21/2017 13:50 EDT) [facility] Method Time Signature Glucose, 116 (H) 70 - 100 12/21/2017 [facility] Fingerstick mg/dl 13:52 EDT [facility]ENTER [facility] SERVICES Credit Intern ID [id number] 12/21/2017 [facility] 13:52 EDT [facility] Comment: Test Performed by Nursing Makenziei meghan Specimen Anatomical Collection Method Collection Time Receive d Time (Source) Location / / Volume Laterality BLOOD SPECIMEN / 12/21/2017 13:50 018 Unknown EDT 13:52 EDT Britany Dumont MD CHEMISTRY & BLOOD GAS ORDERA BLES Performing Organization Address City/[facility]/ZIP Code Phon e Number [facility] [address] [place] [address] SERVICES (ABNORMAL) GLUCOSE, GLUCOMETER (12/21/2017 12:03 EDT) [facility] Method Time Signature Glucose, 117 (H) 70 - 100 12/21/2017 [facility] Fingerstick mg/dl 12:57 EDT [facility] Credit Intern ID [id number] 12/21/2017 [facility] 12:57 EDT [facility] Comment: Test Performed by Nursing Servi meghan Specimen Anatomical Collection Method Collection Time Receive d Time (Source) Location / / Volume Laterality BLOOD SPECIMEN / 12/21/2017 12:03 018 Unknown EDT 12:57 EDT Britany Dumont MD CHEMISTRY & BLOOD GAS ORDERA BLEAinsley Performing Organization Address City/[facility]/ZIP Code Phon e Number [facility] [address] [place] [address] SERVICES (ABNORMAL) GLUCOSE, GLUCOMETER (12/21/2017 10:19 EDT) [facility] Method Time Signature Glucose, 124 (H) 70 - 100 12/21/2017 [facility] Fingerstick mg/dl 10:24 EDT [facility] Credit Intern ID [id number] 12/21/2017 [facility] 10:24 EDT [facility] Comment: Test Performed by Nursing Servi meghan Specimen Anatomical Collection Method Collection Time Receive d Time (Source) Location / / Volume Laterality BLOOD SPECIMEN / 12/21/2017 10:19 018 Unknown EDT 10:24 EDT Britany Dumont MD CHEMISTRY & BLOOD GAS ORDERA BLEAinsley Performing Organization Address City/[facility]/ZIP Code Phon e Number [facility] [address] [place] [address] SERVICES (ABNORMAL) GLUCOSE, GLUCOMETER (12/21/2017 8:15 EDT) [facility] Method Time Signature Glucose, 124 (H) 70 - 100 12/21/2017 [facility] Fingerstick mg/dl 8:16 EDT [facility] [place] Credit Intern ID [id number] 12/21/2017 [facility] 8:16 EDT [facility] Comment: Test Performed by Nursing Makenziei meghan Specimen Anatomical Collection Method Collection Time Receive d Time (Source) Location / / Volume Laterality BLOOD SPECIMEN / 12/21/2017 8:15 12/22/19 18 8:16 Unknown EDT EDT Britany Dumont MD CHEMISTRY & BLOOD GAS ORDERA BLES Performing Organization Address City/State/ZIP Code Phon e Number [facility] [address] [place] [address] SERVICES PORTABLE CHEST 1 VIEW (12/21/2017 7:01 EDT) Anatomical Region Laterality Modality Other Specimen Anatomical Collection Method Collection Time Receive d Time (Source) Location / / Volume Laterality 12/21/2017 7:01 12/21/2017 EDT 10:38 EDT Narrative 12/21/2017 10:38 EDT PORTABLE CHEST 1 VIEW [...] above interpretation and agree with the findings. Dillon Montes PA-C IMG DIAGNOSTIC IMAGING ORDER CURTIS POTASSIUM (12/21/2017 5:56 EDT) athologist Signature Potassium 4.7 3.5 - 5.0 12/21/2017 [facility] mEq/L 6:30 EDT [facility] Specimen Anatomical Collection Method Collection Time Receive d Time (Source) Location / / Volume Laterality Blood specimen BLOOD SPECIMEN / 12/21/2017 5:56 2017 6:04 (specimen) Unknown EDT EDT Dillon Montes PA-C CHEMISTRY & BLOOD GAS ORDERA BLES Performing Organization Address City/State/ZIP Code Phon e Number [facility] [address] [place] [address] SERVICES (ABNORMAL) GLUCOSE, GLUCOMETER (12/21/2017 5:55 EDT) [facility] gist Method Time Signature Glucose, 101 (H) 70 - 100 12/21/2017 [facility] Fingerstick mg/dl 6:00 EDT CENTER [facility] [place] Credit Intern ID [id number] 12/21/2017 [facility] 6:00 EDT [facility] Comment: Test Performed by Nursing Servi meghan Specimen Anatomical Collection Method Collection Time Receive d Time (Source) Location / / Volume Laterality BLOOD SPECIMEN / 12/21/2017 5:55 12/22/19 18 6:00 Unknown EDT EDT Britany Dumont MD CHEMISTRY & BLOOD GAS ORDERA BLES Performing Organization Address City/State/ZIP Code Phon e Number [facility] [address] [place] [address] SERVICES EKG 12-LEAD (12/21/2017 4:24 EDT) Specimen (Source) Anatomical Collection Method Collection Time Re ceived Time Location / / Volume Laterality 12/21/2017 4:24 EDT Narrative [facility] E[facility] - 12/21/2017 21:4 7 EDT ? [facility] ? Test Date: ?2017-12-21 Pat Name: ? ISH ORELLANA ? Department: ?? [place] [facility] ? Room: ? 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 Female ? 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 Requested By: MARTHA LEVY Order Number: [id number] ? Darlene INGRAM: ?? ALEX DINERO MD ? Measurements Intervals ?[place] ? Rate: ? 77 ? P: ?54 [place]: ? 264 ?QRS: ?57 QRSD: ? 89 [...] in this report. Electronically Signed On 12-22-19 18 21:47:17 EDT by ALEX DINERO MD. Procedure Note Alex Dinero MD - 12/21/2017Formatt ing of this note might be different from the original. 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 Dillon Montes PA-C CARDIAC ECG ORDERABLES Performing Organization Address City/State/ZIP Code Phon e Number [facility] EKG (ABNORMAL) GLUCOSE, GLUCOMETER (12/21/2017 4:19 EDT) [facility] Method Time Signature Glucose, 142 (H) 70 - 100 12/21/2017 [facility] Fingerstick mg/dl 4:19 EDT [facility] Credit Intern ID [id number] 12/21/2017 [facility] 4:19 EDT [facility] Comment: Test Performed by Nursing Servi meghan Specimen Anatomical Collection Method Collection Time Receive d Time (Source) Location / / Volume Laterality BLOOD SPECIMEN / 12/21/2017 4:19 12/22/19 18 4:20 Unknown EDT EDT Britany Dumont MD CHEMISTRY & BLOOD GAS ORDERA BLES Performing Organization Address City/State/ZIP Code Phon e Number [facility] [address] [place] [address] SERVICES (ABNORMAL) GLUCOSE, GLUCOMETER (12/21/2017 2:05 EDT) [facility] gist Method Time Signature Glucose, 142 (H) 70 - 100 12/21/2017 [facility] Fingerstick mg/dl 2:06 EDT [facility]ENTER [facility] [place] Credit Intern ID [id number] 12/21/2017 [facility] 2:06 EDT [facility] Comment: Test Performed by Nursing Servi meghan Specimen Anatomical Collection Method Collection Time Receive d Time (Source) Location / / Volume Laterality BLOOD SPECIMEN / 12/21/2017 2:05 12/22/19 18 2:06 Unknown EDT EDT Britany Dumont MD CHEMISTRY & BLOOD GAS ORDERA BLES Performing Organization Address City/[facility]/ZIP Code Phon e Number [facility] [address] [place] [address] SERVICES (ABNORMAL) GLUCOSE, GLUCOMETER (12/21/2017 2:03 EDT) Patholo gist Method Time Signature Glucose, 163 (H) 70 - 100 12/21/2017 [facility] Fingerstick mg/dl 2:06 EDT CENTER LAB[facility] SERVICES Credit Intern ID [id number] 12/21/2017 [facility] 2:06 EDT [facility] Comment: Test Performed by Nursing Makenziei meghan Specimen Anatomical Collection Method Collection Time Receive d Time (Source) Location / / Volume Laterality BLOOD SPECIMEN / 12/21/2017 2:03 12/22/19 18 2:06 Unknown EDT EDT Britany Dumont MD CHEMISTRY & BLOOD GAS ORDERA BLES Performing Organization Address City/[facility]/ZIP Code Phon e Number [facility] [address] [place] [address] SERVICES CALCIUM, IONIZED (12/21/2017 2:01 EDT) P athologist Signature Calcium, 1.26 1.12 - 12/21/2017 [facility] Ionized 1.32 2:23 EDT CENTER mmol/L LABORATORY SERVICES Specimen Anatomical Collection Method Collection Time Receive d Time (Source) Location / / Volume Laterality Blood specimen BLOOD SPECIMEN / 12/21/2017 2:01 2017 2:09 (specimen) Unknown EDT EDT [place] MD CHEMISTRY & BLOOD GAS ORDERA BLES Performing Organization Address City/State/ZIP Code Phon e Number [facility] [address] [place] [address] SERVICES (ABNORMAL) HEMAGRAM (12/21/2017 2:01 EDT) P athologist Signature WBC 11.24 4.0 - 12.4 12/21/2017 [facility] K/cmm 2:33 EDT [facility]ENTER [facility] SERVICES RBC 2.96 (L) 3.86 - 12/21/2017 [facility] 5.04 M/cmm 2:33 EDT [facility]ENTER [facility] SERVICES Hemoglobin 7.7 (L) 11.6 - 12/21/2017 [facility] 15.2 gm/dl 2:33 EDT [facility] HCT 24.6 (L) 34.9 - 12/21/2017 [facility] 44.4 % 2:33 EDT [facility] MCV 83 81 - 98 fl 12/21/2017 [facility] 2:33 EDT [facility] MCH 26.0 (L) 26.7 - 12/21/2017 [facility] 33.3 pg 2:33 EDT [facility] Hypochromia 1+ 12/21/2017 [facility] 2:33 EDT [facility] MCHC 31.3 (L) 32.1 - 12/21/2017 [facility] 35.9 gm/dl 2:33 EDT [facility]ENTER [facility] RDW-CV 22.6 (H) <14.7 % 12/21/2017 [facility] 2:33 EDT [facility]ENTER [facility] SERVICES RDW-SD 67.5 (H) <50.4 fl 12/21/2017 [facility] 2:33 EDT [facility]ENTER [facility] SERVICES Anisocytosis 2+ 12/21/2017 [facility] 2:33 EDT [facility]ENTER LAB[facility] SERVICES PLT 283 141 - 377 12/21/2017 [facility] K/cmm 2:33 EDT [facility] MPV 9.6 9.5 - 12.7 12/21/2017 [facility] fl 2:33 EDT [facility]ENTER LAB[facility] SERVICES Specimen Anatomical Collection Method Collection Time Receive d Time (Source) Location / / Volume Laterality Blood specimen BLOOD SPECIMEN / 12/21/2017 2:01 2017 2:09 (specimen) Unknown EDT EDT Dillon Montes PA-C HEMATOLOGY & PF4 ORDERABLES Performing Organization Address City/State/ZIP Code Phon e Number [facility] [address] [place] [address] SERVICES (ABNORMAL) CREATININE (12/21/2017 2:01 EDT) [facility] Method Time Signature Creatinine 1.13 (H) 0.52 - 12/21/2017 [facility] 1.04 mg/dl 3:02 EDT CENTER LABORATORY SERVICES GFR, Calculated 66 >60 12/21/2017 [facility] ml/min/1.7 3:02 EDT CENTER 3m2 LABORATORY SERVICES Comment: eGFR calculated using CKD-EPI equation f or non Americans. Multiply eGFR by 1.16 for Americans. Specimen Anatomical Collection Method Collection Time Receive d Time (Source) Location / / Volume Laterality Blood specimen BLOOD SPECIMEN / 12/21/2017 2:01 2017 2:09 (specimen) Unknown EDT EDT Dillon WHITTEN-C CHEMISTRY & BLOOD GAS ORDERA BLES Performing Organization Address City/[facility]/ZIP Code Phon e Number [facility] [address] [place] [address] SERVICES BUN (12/21/2017 2:01 EDT) athologist Signature BUN 15 10 - 26 12/21/2017 [facility] mg/dl 3:02 EDT [facility] LAB[facility]ATORY SERVICES Specimen Anatomical Collection Method Collection Time Receive d Time (Source) Location / / Volume Laterality Blood specimen BLOOD SPECIMEN / 12/21/2017 2:01 2017 2:09 (specimen) Unknown EDT EDT Dillon MANCIAC CHEMISTRY & BLOOD GAS ORDERA BLES Performing Organization Address City/State/ZIP Code Phon e Number [facility] [address] [place] [address] SERVICES (ABNORMAL) ELECTROLYTES (12/21/2017 2:01 EDT) P athologist Signature Sodium 135 (L) 136 - 145 12/21/2017 [facility] mEq/L 3:02 EDT [facility]ENTER LAB[facility] SERVICES Potassium 5.6 (H) 3.5 - 5.0 12/21/2017 [facility] mEq/L 3:02 EDT [facility]ENTER [facility] Chloride 105 96 - 110 12/21/2017 [facility] mEq/L 3:02 EDT [facility] CO2 20 (L) 22 - 32 12/21/2017 [facility] mEq/L 3:02 EDT [facility] Specimen Anatomical Collection Method Collection Time Receive d Time (Source) Location / / Volume Laterality Blood specimen BLOOD SPECIMEN / 12/21/2017 2:01 2017 2:09 (specimen) Unknown EDT EDT Gil MANCIAC CHEMISTRY & BLOOD GAS ORDERA BLES Performing Organization Address City/[facility]/ZIP Code Phon e Number [facility] [address] [place] [address] SERVICES GLUCOSE, GLUCOMETER (12/21/2017 0:13 EDT) Analysis Performed At Patho logist Time Signature Glucose, 83 70 - 100 12/21/2017 [facility] Fingerstick mg/dl 1:04 EDT CENTER LABORATORY SERVICES Credit Intern ID [id number] 12/21/2017 [facility] 1:04 EDT [facility]ENTER LAB[facility] SERVICES Comment: Test Performed by Nursing Natalya christianson Specimen Anatomical Collection Method Collection Time Receive d Time (Source) Location / / Volume Laterality BLOOD SPECIMEN / 12/21/2017 0:13 12/22/19 18 1:04 Unknown EDT EDT Britany Dumont MD CHEMISTRY & BLOOD GAS ORDERA BLES Performing Organization Address City/State/ZIP Code Phon e Number [facility] [address] [place] [address] SERVICES EKG 12-LEAD (12/20/2017 21:56 EDT) Specimen (Source) Anatomical Collection Method Collection Time Re ceived Time Location / / Volume Laterality 12/20/2017 21:56 EDT Narrative [facility] EKG - 12/21/2017 13:5 2 EDT ? [facility] ? Test Date: ?2017-12-20 Pat Name: ? ISH ORELLANA ? Department: ?? [place] [facility] ? Room: ? 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 Female ? 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 [id number] : ?1990 ? Requested By: RENNY SINGH Order Number: [id number] ? Reading MD: ?? QUE DAWSON MD ? Measurements Intervals ?[place] ? Rate: ? 63 ? P: ?137 [place]: ? 292 ?QRS: ?76 QRSD: ? 97 ? T: ?36 QT: ? 422 ? QTc: ?435 ? 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 Electronically Signed On 12-22-19 18 13:52:22 EDT by QUE DAWSON MD. Procedure Note Que Dawson MD - 12/21/2017Formattin g of this note might be different from the original. 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 Electronically Signed On 12-22-19 13:52:22 EDT by QUE DAWSON MD. [place] MD CARDIAC ECG ORDERABLES Performing Organization Address City/State/ZIP Code Phon e Number [facility] EKG (ABNORMAL) POTASSIUM (12/20/2017 21:53 EDT) P athologist Signature Potassium 6.8 (HH) 3.5 - 5.0 12/20/2017 [facility] mEq/L 22:13 EDT CENTER LABORATORY SERVICES Specimen Anatomical Collection Method Collection Time Receive d Time (Source) Location / / Volume Laterality Blood specimen BLOOD SPECIMEN / 12/20/2017 21:53 12/20 (specimen) Unknown EDT 22:00 EDT [place] MD CHEMISTRY & BLOOD GAS ORDERA BLES Performing Organization Address City/State/ZIP Code Phon e Number [facility] [address] [place] [address] SERVICES GLUCOSE, GLUCOMETER (12/20/2017 21:52 EDT) Analysis Performed At Patho logist Time Signature Glucose, 93 70 - 100 12/20/2017 [facility] Fingerstick mg/dl 21:57 EDT CENTER LABORATORY SERVICES Credit Intern ID [id number] 12/20/2017 [facility] 21:57 EDT [facility]ENTER LABORATORY SERVICES Comment: Test Performed by Nursing Natalya meghan Specimen Anatomical Collection Method Collection Time Receive d Time (Source) Location / / Volume Laterality BLOOD SPECIMEN / 12/20/2017 21:52 018 Unknown EDT 21:57 EDT Britany Dumont MD CHEMISTRY & BLOOD GAS ORDERA BLES Performing Organization Address City/[facility]/ZIP Code Phon e Number [facility] [address] [place] [address] SERVICES (ABNORMAL) CALCIUM, IONIZED (12/20/2017 21:34 EDT) Analysis Performed At [facility] Signature Calcium, 1.05 (L) 1.12 - 12/20/2017 [facility] Ionized 1.32 21:55 EDT CENTER mmol/L LABORATORY SERVICES Specimen Anatomical Collection Method Collection Time Receive d Time (Source) Location / / Volume Laterality Blood specimen BLOOD SPECIMEN / 12/20/2017 21:34 12/20 (specimen) Unknown EDT 21:37 EDT [place] MD CHEMISTRY & BLOOD GAS ORDERA BLES Performing Organization Address City/[facility]/ZIP Code Phon e Number [facility] [address] [place] [address] SERVICES GLUCOSE, GLUCOMETER (12/20/2017 21:10 EDT) Analysis Performed At [facility] Signature Glucose, 91 70 - 100 12/20/2017 [facility] Fingerstick mg/dl 21:14 EDT CENTER LABORATORY SERVICES Credit Intern ID [id number] 12/20/2017 [facility] 21:14 EDT [facility]ENTER LAB[facility] SERVICES Comment: Test Performed by Nursing Makenziei meghan Specimen Anatomical Collection Method Collection Time Receive d Time (Source) Location / / Volume Laterality BLOOD SPECIMEN / 12/20/2017 21:10 018 Unknown EDT 21:14 EDT Britany Dumont MD CHEMISTRY & BLOOD GAS ORDERA BLES Performing Organization Address City/[facility]/ZIP Code Phon e Number [facility] [address] [place] [address] SERVICES (ABNORMAL) HEMAGRAM (12/20/2017 21:08 EDT) Analysis Performed At [facility] Signature WBC 15.32 (H) 4.0 - 12.4 12/20/2017 [facility] K/cmm 21:31 EDT CENTER LABORATORY SERVICES RBC 3.10 (L) 3.86 - 12/20/2017 [facility] 5.04 M/cmm 21:31 EDT CENTER LABORATORY SERVICES Hemoglobin 7.9 (L) 11.6 - 12/20/2017 [facility] 15.2 gm/dl 21:31 EDT CENTER LABORATORY SERVICES HCT 25.1 (L) 34.9 - 12/20/2017 [facility] 44.4 % 21:31 EDT CENTER LABORATORY SERVICES MCV 81 81 - 98 fl 12/20/2017 [facility] 21:31 EDT CENTER LABORATORY SERVICES MCH 25.5 (L) 26.7 - 12/20/2017 [facility] 33.3 pg 21:31 EDT CENTER LABORATORY SERVICES Hypochromia 1+ 12/20/2017 [facility] 21:31 EDT [facility]ENTER LABORATORY SERVICES MCHC 31.5 (L) 32.1 - 12/20/2017 [facility] 35.9 gm/dl 21:31 EDT CENTER LABORATORY SERVICES RDW-CV 22.4 (H) <14.7 % 12/20/2017 [facility] 21:31 EDT CENTER LABORATORY SERVICES RDW-SD 66.5 (H) <50.4 fl 12/20/2017 [facility] 21:31 EDT CENTER LABORATORY SERVICES Anisocytosis 2+ 12/20/2017 [facility] 21:31 EDT [facility] PLT 297 141 - 377 12/20/2017 [facility] K/cmm 21:31 EDT [facility] MPV 9.4 (L) 9.5 - 12.7 12/20/2017 [facility] fl 21:31 EDT [facility] Specimen Anatomical Collection Method Collection Time Receive d Time (Source) Location / / Volume Laterality Blood specimen BLOOD SPECIMEN / 12/20/2017 21:08 12/20 (specimen) Unknown EDT 21:16 EDT Dillon Montes PA-C HEMATOLOGY & PF4 ORDERABLES Performing Organization Address City/State/ZIP Code Phon e Number [facility] [address] [place] [address] SERVICES (ABNORMAL) POTASSIUM (12/20/2017 21:08 EDT) P athologist Signature Potassium 6.6 (HH) 3.5 - 5.0 12/20/2017 [facility] mEq/L 21:45 EDT [facility] Specimen Anatomical Collection Method Collection Time Receive d Time (Source) Location / / Volume Laterality Blood specimen BLOOD SPECIMEN / 12/20/2017 21:08 12/20 (specimen) Unknown EDT 21:16 EDT Dillon Montes PA-C CHEMISTRY & BLOOD GAS ORDERA BLES Performing Organization Address City/State/ZIP Code Phon e Number [facility] [address] [place] [address] SERVICES (ABNORMAL) GLUCOSE, GLUCOMETER (12/20/2017 19:55 EDT) [facility] Method Time Signature Glucose, 122 (H) 70 - 100 12/20/2017 [facility] Fingerstick mg/dl 19:56 EDT [facility] LAB[facility] SERVICES Credit Intern ID [id number] 12/20/2017 [facility] 19:56 EDT [facility] Comment: Test Performed by Nursing Makenziei meghan Specimen Anatomical Collection Method Collection Time Receive d Time (Source) Location / / Volume Laterality BLOOD SPECIMEN / 12/20/2017 19:55 018 Unknown EDT 19:56 EDT Britany Dumont MD CHEMISTRY & BLOOD GAS ORDERA BLES Performing Organization Address City/[facility]/ZIP Code Phon e Number [facility] [address] [place] [address] SERVICES (ABNORMAL) BLOOD GAS, G3 ISTAT (12/20/2017 19:03 EDT) [facility] Method Time Signature pH, i-STAT 7.33 (L) 7.35 - 12/20/2017 [facility] 7.45 19:08 EDT [facility] pCO2, i-STAT 46 (H) 35 - 45 12/20/2017 [facility] mmHg 19:08 EDT [facility] pO2, i-STAT 109 (H) 80 - 105 12/20/2017 [facility] mmHg 19:08 EDT [facility] TCO2, i-STAT 25 23 - 27 12/20/2017 [facility] mEq/L 19:08 EDT [facility] O2 Saturation 98 95 - 98 % 12/20/2017 [facility] 19:08 EDT [facility] Base Deficit, 2 12/20/2017 [facility] i-STAT 19:08 EDT [facility] FIO2 30 12/20/2017 [facility] 19:08 EDT [facility] Sample Type ARTERIAL 12/20/2017 [facility] 19:08 EDT [facility]ENTER LABORATORY wagon driver salesperson ID [phone] 12/20/2017 [facility] 19:08 EDT [facility] Comment: Test Performed by Respiratory For non-arterial reference ranges, please see ISTAT procedure. Specimen Anatomical Collection Method Collection Time Receive d Time (Source) Location / / Volume Laterality BLOOD SPECIMEN / 12/20/2017 19:03 018 Unknown EDT 19:08 EDT Britany Dumont MD CHEMISTRY & BLOOD GAS ORDERA BLES Performing Organization Address City/[facility]/ZIP Code Phon e Number [facility] [address] [place] [address] SERVICES (ABNORMAL) GLUCOSE, GLUCOMETER (12/20/2017 18:12 EDT) [facility] Method Time Signature Glucose, 117 (H) 70 - 100 12/20/2017 [facility] Finger[facility] mg/dl 18:16 EDT [facility] LAB[facility] SERVICES Credit Intern ID [id number] 12/20/2017 [facility] 18:16 EDT [facility] Comment: Test Performed by Nursing Servi meghan Specimen Anatomical Collection Method Collection Time Receive d Time (Source) Location / / Volume Laterality BLOOD SPECIMEN / 12/20/2017 18:12 018 Unknown EDT 18:16 EDT Britany Dumont MD CHEMISTRY & BLOOD GAS ORDERA BLES Performing Organization Address City/[facility]/ZIP Code Phon e Number [facility] [address] [place] [address] SERVICES GLUCOSE, GLUCOMETER (12/20/2017 16:50 EDT) [facility] Glucose, 90 70 - 100 12/20/2017 [facility] Fingerstick mg/dl 16:54 EDT [facility] SERVICES Credit Intern ID [id number] 12/20/2017 [facility] 16:54 EDT [facility] Comment: Test Performed by Nursing Servi meghan Specimen Anatomical Collection Method Collection Time Receive d Time (Source) Location / / Volume Laterality BLOOD SPECIMEN / 12/20/2017 16:50 018 Unknown EDT 16:54 EDT Britany Dumont MD CHEMISTRY & BLOOD GAS ORDERA BLES Performing Organization Address City/State/ZIP Code Phon e Number [facility] [address] [place] [address] SERVICES (ABNORMAL) BLOOD GAS, G3 ISTAT (12/20/2017 16:39 EDT) [facility] gist Method Time Signature pH, i-STAT 7.32 (L) 7.35 - 12/20/2017 [facility] 7.45 16:44 [facility] LAB[facility] SERVICES pCO2, i-STAT 49 (H) 35 - 45 12/20/2017 [facility] mmHg 16:44 [facility] LABORATORY SERVICES pO2, i-STAT 141 (H) 80 - 105 12/20/2017 [facility] mmHg 16:44 [facility] LABORATORY SERVICES TCO2, i-STAT 26 23 - 27 12/20/2017 [facility] mEq/L 16:44 [facility] LABORATORY SERVICES O2 Saturation 99 (H) 95 - 98 % 12/20/2017 [facility] 16:44 [facility] LABORATORY SERVICES Base Deficit, 1 12/20/2017 [facility] i-STAT 16:44 [facility] LABORATORY SERVICES FIO2 40 12/20/2017 [facility] 16:44 [facility] LABORATORY SERVICES Sample Type ARTERIAL 12/20/2017 [facility] 16:44 [facility] LABORATORY wagon driver salesperson ID [phone] 12/20/2017 [facility] 16:44 [facility] LAB[facility] SERVICES Comment: Test Performed by Respiratory For non-arterial reference ranges, please see ISTAT procedure. Specimen Anatomical Collection Method Collection Time Receive d Time (Source) Location / / Volume Laterality BLOOD SPECIMEN / 12/20/2017 16:39 018 Unknown EDT 16:44 EDT Britany Dumont MD CHEMISTRY & BLOOD GAS ORDERA BLES Performing Organization Address City/State/ZIP Code Phon e Number [facility] [address] [place] [address] SERVICES PORTABLE CHEST PA CENTRAL LINE/PICC/ET TUBE,INITIAL INSERTION (12/20/2017 15:41 EDT) Anatomical Region Laterality Modality Other Specimen Anatomical Collection Method Collection Time Receive d Time (Source) Location / / Volume Laterality 12/20/2017 15:41 12/20/2017 EDT 16:03 EDT Narrative 12/20/2017 16:03 EDT PORTABLE CHEST 1 VIEW [...] well aligned. Cardiac and mediastinal contours: The fish zafar has had a mitral valve replacement. Lungs: [...] findings. Procedure Note Marty Neville MD - 12/20/2017Formatt ing of this note might be different from the original. PORTABLE CHEST 1 VIEW INITIAL LINE, ET [...] well aligned. Cardiac and mediastinal contours: The fish zafar has had a mitral valve replacement. Lungs: [...] above interpretation and agree with the findings. Dillon Montes PA-C IMG DIAGNOSTIC IMAGING ORDER CURTIS EKG 12-LEAD (12/20/2017 15:41 EDT) Specimen (Source) Anatomical Collection Method Collection Time Re ceived Time Location / / Volume Laterality 12/20/2017 15:41 EDT Narrative [facility] E[facility] - 12/21/2017 21:4 1 EDT ? [facility] ? Test Date: ?2017-12-20 Pat Name: ? ISH ORELLANA ? Department: ?? [place] [facility] ? Room: ? 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 Female ? 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 [id number] : ?1990 ? Requested By: MARTHA LEVY Order Number: [id number] ? Reading : ?? ALEX DINERO MD ? Measurements Intervals ?[place] ? Rate: ? 44 ? P: ? [place]: ? 0 ?QRS: ?96 QRSD: ? 102 [...] MD. Procedure Note Alex Dinero MD - 12/21/2017Formatt ing of this note might be different from the original. 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 Dillon WHITTEN-Kasey CARDIAC ECG ORDERABLES Performing Organization Address City/State/ZIP Code Phon e Number [facility] E[facility] MRSA PCR (12/20/2017 15:34 EDT) [facility] gist Method Time Signature Result No Staphylococcus 12/21/2017 [facility] aureus detected by 12:11 EDT CENTER PCR. LABORATORY SERVICES Specimen Anatomical Collection Method Collection Time Receive d Time (Source) Location / / Volume Laterality Other (qualifier NASAL / Unknown 12/20/2017 15:34 12/05 value) EDT 17:39 EDT Dillon Montes PA-C MICROBIOLOGY - GENERAL ORDER CURTIS Performing Organization Address City/[facility]/ZIP Code Phon e Number [facility] [address] [place] [address] SERVICES GLUCOSE, GLUCOMETER (12/20/2017 15:33 EDT) Analysis Performed At [facility] Time Signature Glucose, 90 70 - 100 12/20/2017 [facility] Fingerstick mg/dl 15:34 EDT CENTER LABORATORY [place] Credit Intern ID [id number] 12/20/2017 [facility] 15:34 EDT [facility] Comment: Test Performed by Nursing Natalya christianson Specimen Anatomical Collection Method Collection Time Receive d Time (Source) Location / / Volume Laterality BLOOD SPECIMEN / 12/20/2017 15:33 018 Unknown EDT 15:34 EDT Britany Dumont MD CHEMISTRY & BLOOD GAS ORDERA BLES Performing Organization Address City/[facility]/ZIP Code Phon e Number [facility] [address] [place] [address] SERVICES (ABNORMAL) HEMAGRAM (12/20/2017 15:28 EDT) Analysis Performed At [facility] Time Signature WBC 15.21 (H) 4.0 - 12.4 12/20/2017 [facility] K/cmm 16:11 EDT [facility] RBC 2.96 (L) 3.86 - 12/20/2017 [facility] 5.04 M/cmm 16:11 EDT [facility] Hemoglobin 7.9 (L) 11.6 - 12/20/2017 [facility] 15.2 gm/dl 16:11 EDT [facility] HCT 24.4 (L) 34.9 - 12/20/2017 [facility] 44.4 % 16:11 EDT [facility] MCV 82 81 - 98 fl 12/20/2017 [facility] 16:11 EDT [facility] MCH 26.7 26.7 - 12/20/2017 [facility] 33.3 pg 16:11 EDT [facility] MCHC 32.4 32.1 - 12/20/2017 [facility] 35.9 gm/dl 16:11 EDT [facility] RDW-CV 22.8 (H) <14.7 % 12/20/2017 [facility] 16:11 EDT [facility] RDW-SD 68.5 (H) <50.4 fl 12/20/2017 [facility] 16:11 EDT [facility] Anisocytosis 2+ 12/20/2017 [facility] 16:11 EDT [facility] PLT 256 141 - 377 12/20/2017 [facility] K/cmm 16:11 EDT [facility] MPV 9.2 (L) 9.5 - 12.7 12/20/2017 [facility] fl 16:11 EDT [facility] Specimen Anatomical Collection Method Collection Time Receive d Time (Source) Location / / Volume Laterality Blood specimen BLOOD SPECIMEN / 12/20/2017 15:28 12/20 (specimen) Unknown EDT 15:49 EDT Dillon Montes PA-C HEMATOLOGY & PF4 ORDERABLES Performing Organization Address City/State/ZIP Code Phon e Number [facility] [address] [place] [address] SERVICES (ABNORMAL) POTASSIUM (12/20/2017 15:28 EDT) P athologist Signature Potassium 5.2 (H) 3.5 - 5.0 12/20/2017 [facility] mEq/L 16:03 EDT [facility] Specimen Anatomical Collection Method Collection Time Receive d Time (Source) Location / / Volume Laterality Blood specimen BLOOD SPECIMEN / 12/20/2017 15:28 12/20 (specimen) Unknown EDT 15:49 EDT Dillon Montes PA-C CHEMISTRY & BLOOD GAS ORDERA BLES Performing Organization Address City/State/ZIP Code Phon e Number [facility] [address] [place] [address] SERVICES (ABNORMAL) HEMAGRAM (12/20/2017 14:00 EDT) Analysis Performed At Patho logist Time Signature WBC 16.86 (H) 4.0 - 12.4 12/20/2017 [facility] K/count includes the [facility] 14:46 EDT CENTER LABORATORY SERVICES RBC 2.93 (L) 3.86 - 12/20/2017 [facility] 5.04 M/cm 14:46 EDT [facility] SERVICES Hemoglobin 7.5 (L) 11.6 - 12/20/2017 [facility] 15.2 gm/dl 14:46 EDT [facility] HCT 24.3 (L) 34.9 - 12/20/2017 [facility] 44.4 % 14:46 EDT [facility]ENTER LAB[facility]AT[facility] SERVICES MCV 83 81 - 98 fl 12/20/2017 [facility] 14:46 EDT [facility] SERVICES MCH 25.6 (L) 26.7 - 12/20/2017 [facility] 33.3 pg 14:46 EDT [facility] LAB[facility] SERVICES Hypochromia 1+ 12/20/2017 [facility] 14:46 EDT [facility] LAB[facility] SERVICES MCHC 30.9 (L) 32.1 - 12/20/2017 [facility] 35.9 gm/dl 14:46 EDT [facility] SERVICES RDW-CV 22.5 (H) <14.7 % 12/20/2017 [facility] 14:46 EDT [facility] LAB[facility] SERVICES RDW-SD 68.4 (H) <50.4 fl 12/20/2017 [facility] 14:46 EDT [facility]ENTER LAB[facility] SERVICES Anisocytosis 2+ 12/20/2017 [facility] 14:46 EDT [facility] LAB[facility]AT[facility] SERVICES PLT 231 141 - 377 12/20/2017 [facility] K/count includes the [facility] 14:46 EDT [facility] LAB[facility] SERVICES MPV 8.9 (L) 9.5 - 12.7 12/20/2017 [facility] fl 14:46 EDT [facility] LAB[facility] SERVICES Specimen Anatomical Collection Method Collection Time Receive d Time (Source) Location / / Volume Laterality Blood specimen BLOOD SPECIMEN / 12/20/2017 14:00 12/20 (specimen) Unknown EDT 14:06 EDT Britany Dumont MD HEMATOLOGY & PF4 ORDERABLES Performing Organization Address City/State/ZIP Code Phon e Number [facility] [address] [place] [address] SERVICES FIBRINOGEN (12/20/2017 14:00 EDT) P athologist Signature Fibrinogen 328 171 - 384 12/20/2017 [facility] mg/dl 14:25 EDT [facility] LAB[facility]AT[facility] SERVICES Specimen Anatomical Collection Method Collection Time Receive d Time (Source) Location / / Volume Laterality Blood specimen BLOOD SPECIMEN / 12/20/2017 14:00 12/20 (specimen) Unknown EDT 14:06 EDT Britany Dumont MD HEMATOLOGY & PF4 ORDERABLES Performing Organization Address City/[facility] Phon e Number [facility] [address] [place] [phone] SERVICES (ABNORMAL) PROTIME (12/20/2017 14:00 EDT) athologist Signature Pro Time 17.3 (H) 10.3 - 13.4 12/20/2017 [facility] secs 14:25 EDT [facility]ENTER LABOR[facility]ORY SERVICES Comment: NOTE NEW REFERENCE RANGE OF OCT 07 2017 I.N.R. 1.5 (H) 0.9 - 1.1 Ratio 12/20/2017 14:25 EDT [facility] SERVICES Comment: Moderate Intensity Coumadin INR = 2.0-3. 0 Adjustments in anticoagulant therapy dos e should be based upon the INR and NOT the Pro Ti me. Specimen Anatomical Collection Method Collection Time Receive d Time (Source) Location / / Volume Laterality Blood specimen BLOOD SPECIMEN / 12/20/2017 14:00 12/20 (specimen) Unknown EDT 14:06 EDT Britany Dumont MD HEMATOLOGY & PF4 ORDERABLES Performing Organization Address City/[facility]/ZIP Code Phon e Number [facility] [address] [place] [address] SERVICES PTT (12/20/2017 14:00 EDT) athologist Signature PTT 36 26 - 37 12/20/2017 [facility] secs 14:28 EDT [facility]ENTER LABORATORY SERVICES Specimen Anatomical Collection Method Collection Time Receive d Time (Source) Location / / Volume Laterality Blood specimen BLOOD SPECIMEN / 12/20/2017 14:00 12/20 (specimen) Unknown EDT 14:06 EDT Britany Dumont MD HEMATOLOGY & PF4 ORDERABLES Performing Organization Address City/State/ZIP Code Phon e Number [facility] [address] [place] [address] SERVICES (ABNORMAL) BLOOD GAS, CG8 ISTAT (12/20/2017 13:39 EDT) [facility] Method Time Signature pH, i-STAT 7.30 (L) 7.35 - 12/20/2017 [facility] 7.45 14:11 EDT [facility]ENTER LABORATORY SERVICES pCO2, i-STAT 49 (H) 35 - 45 12/20/2017 [facility] mmHg 14:11 T CENTER LABORATORY SERVICES pO2, i-STAT 123 (H) 80 - 105 12/20/2017 [facility] mmHg 14:11 EDT [facility]ENTER LABORATORY SERVICES TCO2, i-STAT 26 23 - 27 12/20/2017 [facility] mEq/L 14:11 EDT [facility]ENTER LABORATORY SERVICES O2 Saturation 98 95 - 98 % 12/20/2017 [facility] 14:11 EDT [facility]ENTER LABORATORY SERVICES Sodium, i-STAT 132 (L) 136 - 145 12/20/2017 [facility] mEq/L 14:11 T [facility]ENTER LABORATORY SERVICES Potassium, 5.0 3.5 - 5.0 12/20/2017 [facility] i-STAT mEq/L 14:11 [facility] CENTER LABORATORY SERVICES Glucose, I-STAT 157 (H) 70 - 100 12/20/2017 [facility] mg/dl 14:11 EDT [facility]ENTER LABORATORY SERVICES Hematocrit,iSTA 23 (L) 34.9 - 12/20/2017 [facility] T 44.4 % 14:11 T CENTER LABORATORY SERVICES Calcium, 1.33 (H) 1.12 - 12/20/2017 [facility] Ionized 1.32 14:11 EDT CENTER mmol/L LABORATORY SERVICES Base Deficit, 2 12/20/2017 [facility] i-STAT 14:11 T CENTER LABORATORY SERVICES Sample Type NOT GIVEN 12/20/2017 [facility] 14:11 EDT CENTER LABORATORY wagon driver salesperson ID [phone] 12/20/2017 [facility] 14:11 EDT [facility]ENTER LABOR[facility]ORY SERVICES Comment: Test performed by Perfusion For non-arterial reference ranges, please see ISTAT procedure. Specimen Anatomical Collection Method Collection Time Receive d Time (Source) Location / / Volume Laterality BLOOD SPECIMEN / 12/20/2017 13:39 018 Unknown EDT 14:11 EDT Gerald Castro MD CHEMISTRY & BLOOD GAS ORDERA BLES Performing Organization Address City/[facility]/ZIP Code Phon e Number [facility] [address] [place] [address] SERVICES ACT, CELITE ISTAT (12/20/2017 13:38 EDT) P athologist Signature Activated 152 12/20/2017 [facility] Clotting Time 14:09 EDT CENTER LABORATORY wagon driver salesperson ID [phone] 12/20/2017 [facility] 14:09 EDT [facility]ENTER LABORATORY SERVICES Comment: Test performed by Perfusion Baseline ref range is less than or equal to 160 seconds For non baseline ref ranges see procedur e. Specimen Anatomical Collection Method Collection Time Receive d Time (Source) Location / / Volume Laterality BLOOD SPECIMEN / 12/20/2017 13:38 018 Unknown EDT 14:09 EDT Gerald Castro MD POINT OF CARE TEST ORDERABLE S Performing Organization Address City/[facility]/ZIP Code Phon e Number [facility] [address] [place] [address] SERVICES (ABNORMAL) BLOOD GAS, EG6 ISTAT (12/20/2017 13:06 EDT) Patholo gist Method Time Signature pH, i-STAT 7.34 (L) 7.35 - 12/20/2017 [facility] 7.45 14:11 EDT CENTER LABORATORY SERVICES pCO2, i-STAT 44 35 - 45 12/20/2017 [facility] mmHg 14:11 EDT CENTER LABORATORY SERVICES pO2, i-STAT 44 (L) 80 - 105 12/20/2017 [facility] mmHg 14:11 EDT CENTER LABORATORY SERVICES TCO2, i-STAT 25 23 - 27 12/20/2017 [facility] mEq/L 14:11 EDT CENTER LABORATORY SERVICES O2 Saturation 76 (L) 95 - 98 % 12/20/2017 [facility] 14:11 EDT [facility]ENTER LABOR[facility]ORY SERVICES Sodium, i-STAT 129 (L) 136 - 145 12/20/2017 [facility] mEq/L 14:11 EDT [facility]ENTER LABORATORY SERVICES Potassium, 5.7 (H) 3.5 - 5.0 12/20/2017 [facility] i-STAT mEq/L 14:11 [facility] LABORATORY SERVICES Hematocrit,iSTA 31 (L) 34.9 - 12/20/2017 [facility] T 44.4 % 14:11 [facility] LABORATORY SERVICES Base Deficit, 2 12/20/2017 [facility] i-STAT 14:11 [facility] LABORATORY SERVICES Sample Type NOT GIVEN 12/20/2017 [facility] 14:11 [facility] LABORATORY wagon driver salesperson ID [phone] 12/20/2017 [facility] 14:11 [facility] LAB[facility] SERVICES Comment: Test performed by Perfusion For non-arterial reference ranges, please see ISTAT procedure. Specimen Anatomical Collection Method Collection Time Receive d Time (Source) Location / / Volume Laterality BLOOD SPECIMEN / 12/20/2017 13:06 018 Unknown EDT 14:11 EDT Gerald Castro MD CHEMISTRY & BLOOD GAS ORDERA BLES Performing Organization Address City/State/ZIP Code Phon e Number [facility] [address] [place] [address] SERVICES ACT, CELITE ISTAT (12/20/2017 13:05 EDT) P athologist Signature Activated 546 12/20/2017 [facility] Clotting Time 13:27 [facility] LABORATORY wagon driver salesperson ID [phone] 12/20/2017 [facility] 13:27 [facility] CENTER LABORATORY SERVICES Comment: Test performed by Perfusion Baseline ref range is less than or equal to 160 seconds For non baseline ref ranges see procedur e. Specimen Anatomical Collection Method Collection Time Receive d Time (Source) Location / / Volume Laterality BLOOD SPECIMEN / 12/20/2017 13:05 018 Unknown EDT 13:27 EDT Gerald Castro MD POINT OF CARE TEST ORDERABLE S Performing Organization Address City/State/ZIP Code Phon e Number [facility] [address] [place] [address] SERVICES (ABNORMAL) BLOOD GAS, CG8 ISTAT (12/20/2017 12:58 EDT) Patholo gist Method Time Signature pH, i-STAT 7.39 7.35 - 12/20/2017 [facility] 7.45 14:11 EDT [facility]ENTER LABORATORY SERVICES pCO2, i-STAT 41 35 - 45 12/20/2017 [facility] mmHg 14:11 [facility] CENTER LABORATORY SERVICES pO2, i-STAT 450 (H) 80 - 105 12/20/2017 [facility] mmHg 14:11 [facility] LABORATORY SERVICES TCO2, i-STAT 26 23 - 27 12/20/2017 [facility] mEq/L 14:11 [facility] LABORATORY SERVICES O2 Saturation 100 (H) 95 - 98 % 12/20/2017 [facility] 14:11 [facility] LABORATORY SERVICES Sodium, i-STAT 129 (L) 136 - 145 12/20/2017 [facility] mEq/L 14:11 [facility] LABORATORY SERVICES Potassium, 5.7 (H) 3.5 - 5.0 12/20/2017 [facility] i-STAT mEq/L 14:11 [facility] LABORATORY SERVICES Glucose, I-STAT 188 (H) 70 - 100 12/20/2017 [facility] mg/dl 14:11 [facility] LABORATORY SERVICES Hematocrit,iSTA 22 (L) 34.9 - 12/20/2017 [facility] T 44.4 % 14:11 [facility] LABORATORY SERVICES Calcium, 1.01 (L) 1.12 - 12/20/2017 [facility] Ionized 1.32 14:11 [facility] mmol/L LABORATORY SERVICES Base Excess, 0 12/20/2017 [facility] i-STAT 14:11 [facility] LABORATORY SERVICES Sample Type NOT GIVEN 12/20/2017 [facility] 14:11 [facility] LABORATORY wagon driver salesperson ID [phone] 12/20/2017 [facility] 14:11 [facility] LABORATORY SERVICES Comment: Test performed by Perfusion For non-arterial reference ranges, please see ISTAT procedure. Specimen Anatomical Collection Method Collection Time Receive d Time (Source) Location / / Volume Laterality BLOOD SPECIMEN / 12/20/2017 12:58 018 Unknown EDT 14:11 EDT Gerald Castro MD CHEMISTRY & BLOOD GAS ORDERA BLES Performing Organization Address City/State/ZIP Code Phon e Number [facility] [address] [place] [address] SERVICES (ABNORMAL) BLOOD GAS, CG8 ISTAT (12/20/2017 12:39 EDT) [facility] Method Time Signature pH, i-STAT 7.40 7.35 - 12/20/2017 [facility] MEDICAL 7.45 14:11 [facility] CENTER LABORATORY SERVICES pCO2, i-STAT 37 35 - 45 12/20/2017 [facility] mmHg 14:11 [facility] CENTER LABORATORY SERVICES pO2, i-STAT 221 (H) 80 - 105 12/20/2017 [facility] mmHg 14:11 [facility] CENTER LABORATORY SERVICES TCO2, i-STAT 24 23 - 27 12/20/2017 [facility] mEq/L 14:11 [facility] LABORATORY SERVICES O2 Saturation 100 (H) 95 - 98 % 12/20/2017 [facility] 14:11 [facility] CENTER LABORATORY SERVICES Sodium, i-STAT 131 (L) 136 - 145 12/20/2017 [facility] mEq/L 14:11 [facility] LABORATORY SERVICES Potassium, 5.2 (H) 3.5 - 5.0 12/20/2017 [facility] i-STAT mEq/L 14:11 [facility] LABORATORY SERVICES Glucose, I-STAT 194 (H) 70 - 100 12/20/2017 [facility] mg/dl 14:11 [facility] LABORATORY SERVICES Hematocrit,iSTA 30 (L) 34.9 - 12/20/2017 [facility] T 44.4 % 14:11 [facility] LABORATORY SERVICES Calcium, 1.03 (L) 1.12 - 12/20/2017 [facility] Ionized 1.32 14:11 [facility] mmol/L LABORATORY SERVICES Base Deficit, 2 12/20/2017 [facility] i-STAT 14:11 [facility] LABORATORY SERVICES Sample Type NOT GIVEN 12/20/2017 [facility] 14:11 [facility] LABORATORY wagon driver salesperson ID [phone] 12/20/2017 [facility] 14:11 [facility] LABORATORY SERVICES Comment: Test performed by Perfusion For non-arterial reference ranges, please see ISTAT procedure. Specimen Anatomical Collection Method Collection Time Receive d Time (Source) Location / / Volume Laterality BLOOD SPECIMEN / 12/20/2017 12:39 018 Unknown EDT 14:11 EDT Gerald Castro MD CHEMISTRY & BLOOD GAS ORDERA BLES Performing Organization Address City/State/ZIP Code Phon e Number [facility] [address] [place] [address] SERVICES ACT, CELITE ISTAT (12/20/2017 12:39 EDT) P athologist Signature Activated 489 12/20/2017 [facility] Clotting Time 13:26 EDT CENTER LABORATORY wagon driver salesperson ID [phone] 12/20/2017 [facility] 13:26 EDT CENTER LABORATORY SERVICES Comment: Test performed by Perfusion Baseline ref range is less than or equal to 160 seconds For non baseline ref ranges see raymond e. Specimen Anatomical Collection Method Collection Time Receive d Time (Source) Location / / Volume Laterality BLOOD SPECIMEN / 12/20/2017 12:39 018 Unknown EDT 13:26 EDT Gerald Castro MD POINT OF CARE TEST ORDERABLE S Performing Organization Address City/State/ZIP Code Phon e Number [facility] [address] [place] [address] SERVICES (ABNORMAL) BLOOD GAS, CG8 ISTAT (12/20/2017 12:07 EDT) Patholo gist Method Time Signature pH, i-STAT 7.43 7.35 - 12/20/2017 [facility] 7.45 14:11 EDT CENTER LABORATORY SERVICES pCO2, i-STAT 35 35 - 45 12/20/2017 [facility] mmHg 14:11 T [facility] LABORATORY SERVICES pO2, i-STAT 245 (H) 80 - 105 12/20/2017 [facility] mmHg 14:11 EDT CENTER LABORATORY SERVICES TCO2, i-STAT 25 23 - 27 12/20/2017 [facility] mEq/L 14:11 T [facility] LAB[facility]ATORY SERVICES O2 Saturation 100 (H) 95 - 98 % 12/20/2017 [facility] 14:11 EDT CENTER LABORATORY SERVICES Sodium, i-STAT 131 (L) 136 - 145 12/20/2017 [facility] mEq/L 14:11 EDT [facility]ENTER LABORATORY SERVICES Potassium, 4.5 3.5 - 5.0 12/20/2017 [facility] i-STAT mEq/L 14:11 [facility] LAB[facility]ATORY SERVICES Glucose, I-STAT 188 (H) 70 - 100 12/20/2017 [facility] mg/dl 14:11 [facility] CENTER LABORATORY SERVICES Hematocrit,iSTA 23 (L) 34.9 - 12/20/2017 [facility] T 44.4 % 14:11 [facility] CENTER LABORATORY SERVICES Calcium, 1.04 (L) 1.12 - 12/20/2017 [facility] Ionized 1.32 14:11 EDT CENTER mmol/L LABORATORY SERVICES Base Deficit, 1 12/20/2017 [facility] i-STAT 14:11 EDT CENTER LABORATORY SERVICES Sample Type NOT GIVEN 12/20/2017 [facility] 14:11 EDT CENTER LABORATORY wagon driver salesperson ID [phone] 12/20/2017 [facility] 14:11 EDT CENTER LABORATORY SERVICES Comment: Test performed by Perfusion For non-arterial reference ranges, please see ISTAT procedure. Specimen Anatomical Collection Method Collection Time Receive d Time (Source) Location / / Volume Laterality BLOOD SPECIMEN / 12/20/2017 12:07 018 Unknown EDT 14:11 EDT Gerald Castro MD CHEMISTRY & BLOOD GAS ORDERA BLES Performing Organization Address City/State/ZIP Code Phon e Number [facility] [address] [place] [address] SERVICES ACT, CELITE ISTAT (12/20/2017 12:07 EDT) P athologist Signature Activated 570 12/20/2017 [facility] Clotting Time 13:26 [facility] CENTER LABORATORY wagon driver salesperson ID [phone] 12/20/2017 [facility] 13:26 EDT CENTER LABORATORY SERVICES Comment: Test performed by Perfusion Baseline ref range is less than or equal to 160 seconds For non baseline ref ranges see procedur e. Specimen Anatomical Collection Method Collection Time Receive d Time (Source) Location / / Volume Laterality BLOOD SPECIMEN / 12/20/2017 12:07 018 Unknown EDT 13:26 EDT Gerald Castro MD POINT OF CARE TEST ORDERABLE S Performing Organization Address City/State/ZIP Code Phon e Number [facility] [address] [place] [address] SERVICES (ABNORMAL) BLOOD GAS, EG6 ISTAT (12/20/2017 11:43 EDT) Patholo gist Method Time Signature pH, i-STAT 7.41 7.35 - 12/20/2017 [facility] 7.45 14:11 EDT CENTER LABORATORY SERVICES pCO2, i-STAT 40 35 - 45 12/20/2017 [facility] mmHg 14:11 EDT CENTER LABORATORY SERVICES pO2, i-STAT 291 (H) 80 - 105 12/20/2017 [facility] mmHg 14:11 EDT CENTER LABORATORY SERVICES TCO2, i-STAT 27 23 - 27 12/20/2017 [facility] mEq/L 14:11 [facility] CENTER LABORATORY SERVICES O2 Saturation 100 (H) 95 - 98 % 12/20/2017 [facility] 14:11 [facility] CENTER LABORATORY SERVICES Sodium, i-STAT 131 (L) 136 - 145 12/20/2017 [facility] mEq/L 14:11 [facility] LABORATORY SERVICES Potassium, 4.3 3.5 - 5.0 12/20/2017 [facility] i-STAT mEq/L 14:11 [facility] LABORATORY SERVICES Hematocrit,iSTA 22 (L) 34.9 - 12/20/2017 [facility] T 44.4 % 14:11 [facility] LABORATORY SERVICES Base Excess, 1 12/20/2017 [facility] i-STAT 14:11 [facility] LABORATORY SERVICES Sample Type NOT GIVEN 12/20/2017 [facility] 14:11 [facility] LABORATORY wagon driver salesperson ID [phone] 12/20/2017 [facility] 14:11 [facility] CENTER LABORATORY SERVICES Comment: Test performed by Perfusion For non-arterial reference ranges, please see ISTAT procedure. Specimen Anatomical Collection Method Collection Time Receive d Time (Source) Location / / Volume Laterality BLOOD SPECIMEN / 12/20/2017 11:43 018 Unknown EDT 14:11 EDT Gerald Castro MD CHEMISTRY & BLOOD GAS ORDERA BLES Performing Organization Address City/State/ZIP Code Phon e Number [facility] [address] [place] [address] SERVICES ACT, CELITE ISTAT (12/20/2017 11:42 EDT) P athologist Signature Activated 652 12/20/2017 [facility] Clotting Time 13:26 [facility] CENTER LABORATORY wagon driver salesperson ID [phone] 12/20/2017 [facility] 13:26 EDT CENTER LABORATORY SERVICES Comment: Test performed by Perfusion Baseline ref range is less than or equal to 160 seconds For non baseline ref ranges see procedur e. Specimen Anatomical Collection Method Collection Time Receive d Time (Source) Location / / Volume Laterality BLOOD SPECIMEN / 12/20/2017 11:42 018 Unknown EDT 13:26 EDT Gerald Castro MD POINT OF CARE TEST ORDERABLE S Performing Organization Address City/State/ZIP Code Phon e Number [facility] [address] [place] [address] SERVICES (ABNORMAL) BLOOD GAS, CG8 ISTAT (12/20/2017 11:20 EDT) [facility] Method Time Signature pH, i-STAT 7.37 7.35 - 12/20/2017 [facility] 7.45 14:11 [facility] LABORATORY SERVICES pCO2, i-STAT 42 35 - 45 12/20/2017 [facility] mmHg 14:11 [facility] LABORATORY SERVICES pO2, i-STAT 300 (H) 80 - 105 12/20/2017 [facility] mmHg 14:11 [facility] LABORATORY SERVICES TCO2, i-STAT 25 23 - 27 12/20/2017 [facility] mEq/L 14:11 [facility] LABORATORY SERVICES O2 Saturation 100 (H) 95 - 98 % 12/20/2017 [facility] 14:11 [facility] LABORATORY SERVICES Sodium, i-STAT 130 (L) 136 - 145 12/20/2017 [facility] mEq/L 14:11 [facility] LABORATORY SERVICES Potassium, 4.2 3.5 - 5.0 12/20/2017 [facility] i-STAT mEq/L 14:11 [facility] LABORATORY SERVICES Glucose, I-STAT 153 (H) 70 - 100 12/20/2017 [facility] mg/dl 14:11 [facility] LABORATORY SERVICES Hematocrit,iSTA 21 (L) 34.9 - 12/20/2017 [facility] T 44.4 % 14:11 [facility] LABORATORY SERVICES Calcium, 0.99 (L) 1.12 - 12/20/2017 [facility] Ionized 1.32 14:11 [facility] mmol/L LABORATORY SERVICES Base Deficit, 2 12/20/2017 [facility] i-STAT 14:11 [facility] LABORATORY SERVICES Sample Type NOT GIVEN 12/20/2017 [facility] 14:11 [facility] LABORATORY wagon driver salesperson ID [phone] 12/20/2017 [facility] 14:11 [facility] LABORATORY SERVICES Comment: Test performed by Perfusion For non-arterial reference ranges, please see ISTAT procedure. Specimen Anatomical Collection Method Collection Time Receive d Time (Source) Location / / Volume Laterality BLOOD SPECIMEN / 12/20/2017 11:20 018 Unknown EDT 14:11 EDT Gerald Castro MD CHEMISTRY & BLOOD GAS ORDERA BLES Performing Organization Address City/State/ZIP Code Phon e Number [facility] [address] [place] [address] SERVICES GRAM SMEAR (12/20/2017 11:20 EDT) [facility] Method Time Signature Gram Smear Duplicate 12/20/2017 [facility] Result Test Request 14:04 [facility] CENTER LABORATORY SERVICES Gram Smear Credit Issued 12/20/2017 [facility] Result 14:04 EDT CENTER LABORATORY SERVICES Specimen Anatomical Collection Method Collection Time Receive d Time (Source) Location / / Volume Laterality Other (qualifier OTHER / Unknown 12/20/2017 11:20 0402/2018 value) EDT 12:13 EDT Comment: Duplicate Test Request Britany Dumont MD MICROBIOLOGY - GENERAL ORDER CURTIS Performing Organization Address City/[facility]/ZIP Code Phon e Number [facility] [address] [place] [address] SERVICES FUNGUS CULTURE/SMEAR, OTHER (12/20/2017 11:20 EDT) [facility] Method Time Signature Fungal Smear No fungi 12/20/2017 [facility] seen 14:13 EDT CENTER LABORATORY SERVICES Result No fungi 12/27/2017 [facility] isolated 7:15 EDT CENTER LABORATORY SERVICES Specimen Anatomical Collection Method Collection Time Receive d Time (Source) Location / / Volume Laterality Other (qualifier TISSUE SPECIMEN / 12/20/2017 11:20 value) Unknown EDT 12:12 EDT Comment: ANTERIOR AND POSTERIOR LEAFLETS OF MITRAL VALVE Britany Dumont MD MICROBIOLOGY - GENERAL ORDER CURTIS Performing Organization Address City/[facility]/ZIP Code Phon e Number [facility] [address] [place] [phone] SERVICES ACT, CELITE ISTAT (12/20/2017 11:19 EDT) P athologist Signature Activated 680 12/20/2017 [facility] Clotting Time 13:26 EDT CENTER LABORATORY wagon driver salesperson ID [phone] 12/20/2017 [facility] 13:26 EDT CENTER LABORATORY SERVICES Comment: Test performed by Perfusion Baseline ref range is less than or equal to 160 seconds For non baseline ref ranges see procedur e. Specimen Anatomical Collection Method Collection Time Receive d Time (Source) Location / / Volume Laterality BLOOD SPECIMEN / 12/20/2017 11:19 018 Unknown EDT 13:26 EDT Gerald Castro MD POINT OF CARE TEST ORDERABLE S Performing Organization Address City/State/ZIP Code Phon e Number [facility] [address] [place] [address] SERVICES ANAEROBE CULTURE/SMEAR(INC. AEROBES), TISSUE (12/20/2017 11:10 EDT) [facility] Method Time Signature Gram Smear No polys 12/20/2017 [facility] Result seen 13:49 EDT CENTER LABORATORY SERVICES Gram Smear No bacteria 12/20/2017 [facility] Result seen 13:49 EDT CENTER LABORATORY SERVICES Result No growth 12/22/2017 [facility] 8:55 EDT CENTER LABORATORY SERVICES Specimen Anatomical Collection Method Collection Time Receive d Time (Source) Location / / Volume Laterality Other (qualifier TISSUE SPECIMEN / 12/20/2017 11:10 value) Unknown EDT 12:12 EDT Comment: ANTERIOR AND PSTERIOR LEAFLETS OF MITRAL VALVE Britany Dumont MD MICROBIOLOGY - GENERAL ORDER CURTIS Performing Organization Address City/[facility]/ZIP Code Phon e Number [facility] [address] [place] [address] SERVICES FUNGUS CULTURE/SMEAR, OTHER (12/20/2017 11:05 EDT) [facility] Method Time Signature Fungal Smear No fungi 12/20/2017 [facility] seen 14:13 EDT CENTER LABORATORY SERVICES Result No fungi 12/27/2017 [facility] isolated 7:14 EDT CENTER LABORATORY SERVICES Specimen Anatomical Collection Method Collection Time Receive d Time (Source) Location / / Volume Laterality Other (qualifier TISSUE SPECIMEN / 12/20/2017 11:05 value) Unknown EDT 12:11 EDT Comment: Left~ATRIAL BED Britany Dumont MD MICROBIOLOGY - GENERAL ORDER CURTIS Performing Organization Address City/State/ZIP Code Phon e Number [facility] [address] [place] [address] SERVICES GRAM SMEAR (12/20/2017 11:05 EDT) [facility] Method Time Signature Gram Smear Duplicate 12/20/2017 [facility] Result Test Request 14:03 EDT CENTER LABORATORY SERVICES Gram Smear Credit Issued 12/20/2017 [facility] Result 14:03 ED [facility]ENTER LABORATORY SERVICES Specimen Anatomical Collection Method Collection Time Receive d Time (Source) Location / / Volume Laterality Other (qualifier OTHER / Unknown 12/20/2017 11:05 12/05 value) EDT 12:10 EDT Britany Dumont MD MICROBIOLOGY - GENERAL ORDER CURTIS Performing Organization Address City/State/ZIP Code Phon e Number [facility] [address] [place] [address] SERVICES ACT, CELITE ISTAT (12/20/2017 11:03 EDT) P athologist Signature Activated 680 12/20/2017 [facility] Clotting Time 13:25 [facility] LABORATORY wagon driver salesperson ID [phone] 12/20/2017 [facility] 13:25 T CENTER LABORATORY SERVICES Comment: Test performed by Perfusion Baseline ref range is less than or equal to 160 seconds For non baseline ref ranges see procedur e. Specimen Anatomical Collection Method Collection Time Receive d Time (Source) Location / / Volume Laterality BLOOD SPECIMEN / 12/20/2017 11:03 018 Unknown EDT 13:25 EDT Gerald Castro MD POINT OF CARE TEST ORDERABLE S Performing Organization Address City/State/ZIP Code Phon e Number [facility] [address] [place] [address] SERVICES (ABNORMAL) BLOOD GAS, EG6 ISTAT (12/20/2017 11:01 EDT) Patholo gist Method Time Signature pH, i-STAT 7.34 (L) 7.35 - 12/20/2017 [facility] 7.45 14:11 EDT CENTER LABORATORY SERVICES pCO2, i-STAT 46 (H) 35 - 45 12/20/2017 [facility] mmHg 14:11 EDT CENTER LABORATORY SERVICES pO2, i-STAT 306 (H) 80 - 105 12/20/2017 [facility] mmHg 14:11 EDT CENTER LABORATORY SERVICES TCO2, i-STAT 26 23 - 27 12/20/2017 [facility] mEq/L 14:11 EDT CENTER LABORATORY SERVICES O2 Saturation 100 (H) 95 - 98 % 12/20/2017 [facility] 14:11 EDT CENTER LABORATORY SERVICES Sodium, i-STAT 128 (L) 136 - 145 12/20/2017 [facility] mEq/L 14:11 [facility] LABORATORY SERVICES Potassium, 4.0 3.5 - 5.0 12/20/2017 [facility] i-STAT mEq/L 14:11 [facility] LABORATORY SERVICES Hematocrit,iSTA 20 (LL) 34.9 - 12/20/2017 [facility] T 44.4 % 14:11 [facility] LABORATORY SERVICES Base Deficit, 1 12/20/2017 [facility] i-STAT 14:11 [facility] LABORATORY SERVICES Sample Type NOT GIVEN 12/20/2017 [facility] 14:11 [facility] LABORATORY wagon driver salesperson ID [phone] 12/20/2017 [facility] 14:11 [facility] LABORATORY SERVICES Comment: Test performed by Perfusion For non-arterial reference ranges, please see ISTAT procedure. Specimen Anatomical Collection Method Collection Time Receive d Time (Source) Location / / Volume Laterality BLOOD SPECIMEN / 12/20/2017 11:01 018 Unknown EDT 14:11 EDT Gerald Castro MD CHEMISTRY & BLOOD GAS ORDERA BLES Performing Organization Address City/State/ZIP Code Phon e Number [facility] [address] [place] [address] SERVICES SERGEI, AEROBIC BACTERIA (12/20/2017 11:00 EDT) P athologist Signature Source & Other 12/24/2017 [facility] Organism ID [id number] [facility] LAB[facility]ATORY SERVICES Comment: Left atrial bed SERGEI,Aerobic Bacteria See Comments 12/30/2017 1 2:39 EDT [facility] Comment: (Note) SOURCE: HEART, Other Left atrial bed SUSCEPTIBILITY, AEROBIC, SERGEI ? FINAL ENTEROCOCCUS FAECALIS ?? Organism identified by client. Organism ? ENTEROCOCCUS FAECALIS Antibiotic ??SERGEI (mcg/mL) ??Interpretat ion Gent Synergy ? <=500 ? S S=SUSCEPTIBLE ??I=INTERMEDIATE ??R=RESI STANT N=NONSUSCEPTIBLE ??D=SUSCEPTIBLE DOSE D EPENDENT Performed or Referred by: [facility], [address] [place] [address], Lab Dir : Saeid Martins II, M.D., Ph.D. Specimen Anatomical Collection Method Collection Time Receive d Time (Source) Location / / Volume Laterality OTHER / Unknown 12/20/2017 11:00 12/25/19 18 EDT 12:49 EDT Britany Dumont MD MICROBIOLOGY - GENERAL ORDER CURTIS Performing Organization Address City/State/ZIP Code Phon e Number [facility] [address] [place] [address] SERVICES ANAEROBE CULTURE/SMEAR(INC. AEROBES), TISSUE (12/20/2017 11:00 EDT) [facility] Method Time Signature Gram Smear Few 12/20/2017 [facility] Result Polys 13:40 EDT CENTER LABORATORY SERVICES Gram Smear No bacteria seen 12/20/2017 [facility] Result 13:40 [facility]ENTER LABORATORY SERVICES Result One colony only 12/26/2017 [facility] ENTEROCOCCUS FAECALIS 7:49 [facility] LABORATORY SERVICES Result Sent to Arnold 12/26/2017 [facility] Medical 7:49 [facility] Laboratory for LABORATORY Testing. SERVICES Specimen Anatomical Collection Method Collection Time Receive d Time (Source) Location / / Volume Laterality Other (qualifier TISSUE SPECIMEN / 12/20/2017 11:00 value) Unknown EDT 12:09 EDT Comment: Left~ATRIAL BED Organism Antibiotic Method Susceptibility One colony only Ampicillin SUSCEPTIBILITY (SERGEI) Susceptible enterococcus faecalis One colony only Vancomycin SUSCEPTIBILITY (SERGEI) Susceptible enterococcus faecalis One colony only Susceptibility comment SUSCEPTIBILITY (SERGEI) enterococcus faecalis One colony only Susceptibility comment SUSCEPTIBILITY (SERGEI) For ampicillin enterococcus susceptible faecalis enterococci, the preferred treatm ent is ampicillin (with an aminoglycoside f or serious infectio ns). Britany Dumont MD MICROBIOLOGY - GENERAL ORDER CURTIS Performing Organization Address City/State/ZIP Code Phon e Number [facility] [address] [place] [address] SERVICES (ABNORMAL) BLOOD GAS, EG6 ISTAT (12/20/2017 10:52 EDT) [facility] gist Method Time Signature pH, i-STAT 7.28 (L) 7.35 - 12/20/2017 [facility] 7.45 14:11 [facility] CENTER LABORATORY SERVICES pCO2, i-STAT 54 (H) 35 - 45 12/20/2017 [facility] mmHg 14:11 T CENTER LABORATORY SERVICES pO2, i-STAT 40 (L) 80 - 105 12/20/2017 [facility] mmHg 14:11 [facility] CENTER LABORATORY SERVICES TCO2, i-STAT 27 23 - 27 12/20/2017 [facility] mEq/L 14:11 [facility] CENTER LABORATORY SERVICES O2 Saturation 67 (L) 95 - 98 % 12/20/2017 [facility] 14:11 T [facility]ORY SERVICES Sodium, i-STAT 127 (L) 136 - 145 12/20/2017 [facility] mEq/L 14:11 T [facility] LAB[facility]ORY SERVICES Potassium, 3.9 3.5 - 5.0 12/20/2017 [facility] i-STAT mEq/L 14:11 [facility] SERVICES Hematocrit,iSTA 19 (LL) 34.9 - 12/20/2017 [facility] T 44.4 % 14:11 [facility] CENTER LABORATORY SERVICES Base Deficit, 1 12/20/2017 [facility] i-STAT 14:11 [facility] LABORATORY SERVICES Sample Type NOT GIVEN 12/20/2017 [facility] 14:11 T CENTER LABORATORY wagon driver salesperson ID [phone] 12/20/2017 [facility] 14:11 [facility]ENTER LABORATORY SERVICES Comment: Test performed by Perfusion For non-arterial reference ranges, please see ISTAT procedure. Specimen Anatomical Collection Method Collection Time Receive d Time (Source) Location / / Volume Laterality BLOOD SPECIMEN / 12/20/2017 10:52 018 Unknown EDT 14:11 EDT Gerald Castro MD CHEMISTRY & BLOOD GAS ORDERA BLES Performing Organization Address City/State/ZIP Code Phon e Number [facility] [address] [place] [address] SERVICES (ABNORMAL) BLOOD GAS, CG8 ISTAT (12/20/2017 10:49 EDT) [facility] Method Time Signature pH, i-STAT 7.32 (L) 7.35 - 12/20/2017 [facility] 7.45 14:11 EDT CENTER LABORATORY SERVICES pCO2, i-STAT 45 35 - 45 12/20/2017 [facility] mmHg 14:11 EDT CENTER LABORATORY SERVICES pO2, i-STAT 355 (H) 80 - 105 12/20/2017 [facility] mmHg 14:11 EDT CENTER LABORATORY SERVICES TCO2, i-STAT 24 23 - 27 12/20/2017 [facility] mEq/L 14:11 EDT CENTER LABORATORY SERVICES O2 Saturation 100 (H) 95 - 98 % 12/20/2017 [facility] 14:11 EDT CENTER LABORATORY SERVICES Sodium, i-STAT 125 (L) 136 - 145 12/20/2017 [facility] mEq/L 14:11 T [facility]ENTER LAB[facility]ATORY SERVICES Potassium, 4.0 3.5 - 5.0 12/20/2017 [facility] i-STAT mEq/L 14:11 EDT CENTER LABORATORY SERVICES Glucose, I-STAT 118 (H) 70 - 100 12/20/2017 [facility] mg/dl 14:11 EDT CENTER LABORATORY SERVICES Hematocrit,iSTA 19 (LL) 34.9 - 12/20/2017 [facility] T 44.4 % 14:11 EDT CENTER LABORATORY SERVICES Calcium, 1.01 (L) 1.12 - 12/20/2017 [facility] Ionized 1.32 14:11 EDT CENTER mmol/L LABORATORY SERVICES Base Deficit, 3 12/20/2017 [facility] i-STAT 14:11 T CENTER LABORATORY SERVICES Sample Type NOT GIVEN 12/20/2017 [facility] 14:11 EDT CENTER LABORATORY wagon driver salesperson ID [phone] 12/20/2017 [facility] 14:11 EDT CENTER LABORATORY SERVICES Comment: Test performed by Perfusion For non-arterial reference ranges, please see ISTAT procedure. Specimen Anatomical Collection Method Collection Time Receive d Time (Source) Location / / Volume Laterality BLOOD SPECIMEN / 12/20/2017 10:49 018 Unknown EDT 14:11 EDT Gerald Castro MD CHEMISTRY & BLOOD GAS ORDERA BLES Performing Organization Address City/State/ZIP Code Phon e Number [facility] [address] [place] [address] SERVICES ACT, CELITE ISTAT (12/20/2017 10:48 EDT) P athologist Signature Activated 765 12/20/2017 [facility] Clotting Time 13:25 EDT CENTER LABORATORY wagon driver salesperson ID [phone] 12/20/2017 [facility] 13:25 EDT CENTER LABORATORY SERVICES Comment: Test performed by Perfusion Baseline ref range is less than or equal to 160 seconds For non baseline ref ranges see procedur e. Specimen Anatomical Collection Method Collection Time Receive d Time (Source) Location / / Volume Laterality BLOOD SPECIMEN / 12/20/2017 10:48 018 Unknown EDT 13:25 EDT Gerald Castro MD POINT OF CARE TEST ORDERABLE S Performing Organization Address City/State/ZIP Code Phon e Number [facility] [address] [place] [address] SERVICES (ABNORMAL) BLOOD GAS, CG8 ISTAT (12/20/2017 10:00 EDT) Patholo gist Method Time Signature pH, i-STAT 7.32 (L) 7.35 - 12/20/2017 [facility] 7.45 14:11 EDT CENTER LABORATORY SERVICES pCO2, i-STAT 46 (H) 35 - 45 12/20/2017 [facility] mmHg 14:11 EDT CENTER LABORATORY SERVICES pO2, i-STAT 94 80 - 105 12/20/2017 [facility] mmHg 14:11 EDT CENTER LABORATORY SERVICES TCO2, i-STAT 25 23 - 27 12/20/2017 [facility] mEq/L 14:11 EDT CENTER LABORATORY SERVICES O2 Saturation 97 95 - 98 % 12/20/2017 [facility] 14:11 EDT CENTER LABORATORY SERVICES Sodium, i-STAT 142 136 - 145 12/20/2017 [facility] mEq/L 14:11 EDT CENTER LABORATORY SERVICES Potassium, 3.5 3.5 - 5.0 12/20/2017 [facility] i-STAT mEq/L 14:11 [facility] CENTER LABORATORY SERVICES Glucose, I-STAT 99 70 - 100 12/20/2017 [facility] mg/dl 14:11 [facility] CENTER LABORATORY SERVICES Hematocrit,iSTA 24 (L) 34.9 - 12/20/2017 [facility] T 44.4 % 14:11 [facility] CENTER LABORATORY SERVICES Calcium, 1.14 1.12 - 12/20/2017 [facility] Ionized 1.32 14:11 [facility] CENTER mmol/L LABORATORY SERVICES Base Deficit, 2 12/20/2017 [facility] i-STAT 14:11 [facility] CENTER LABORATORY SERVICES Sample Type NOT GIVEN 12/20/2017 [facility] 14:11 [facility] LAB[facility]ATORY wagon driver salesperson ID [phone] 12/20/2017 [facility] 14:11 [facility] CENTER LABORATORY SERVICES Comment: Test performed by Perfusion For non-arterial reference ranges, please see ISTAT procedure. Specimen Anatomical Collection Method Collection Time Receive d Time (Source) Location / / Volume Laterality BLOOD SPECIMEN / 12/20/2017 10:00 018 Unknown EDT 14:11 EDT Gerald Castro MD CHEMISTRY & BLOOD GAS ORDERA BLES Performing Organization Address City/State/ZIP Code Phon e Number [facility] [address] [place] [address] SERVICES ACT, CELITE ISTAT (12/20/2017 10:00 EDT) P athologist Signature Activated >1,000 12/20/2017 [facility] Clotting Time 13:25 [facility] wagon driver salesperson ID [phone] 12/20/2017 [facility] 13:25 EDT CENTER LABORATORY SERVICES Comment: Test performed by Perfusion Baseline ref range is less than or equal to 160 seconds For non baseline ref ranges see procedur e. Specimen Anatomical Collection Method Collection Time Receive d Time (Source) Location / / Volume Laterality BLOOD SPECIMEN / 12/20/2017 10:00 018 Unknown EDT 13:25 EDT Gerald Castro MD POINT OF CARE TEST ORDERABLE S Performing Organization Address City/State/ZIP Code Phon e Number [facility] [address] [place] [address] SERVICES (ABNORMAL) BLOOD GAS, CG8 ISTAT (12/20/2017 9:24 EDT) [facility] Method Time Signature pH, i-STAT 7.37 7.35 - 12/20/2017 [facility] 7.45 14:11 EDT CENTER LABORATORY SERVICES pCO2, i-STAT 48 (H) 35 - 45 12/20/2017 [facility] mmHg 14:11 EDT CENTER LABORATORY SERVICES pO2, i-STAT 146 (H) 80 - 105 12/20/2017 [facility] mmHg 14:11 EDT CENTER LABORATORY SERVICES TCO2, i-STAT 29 (H) 23 - 27 12/20/2017 [facility] mEq/L 14:11 [facility] LAB[facility]ATORY SERVICES O2 Saturation 99 (H) 95 - 98 % 12/20/2017 [facility] 14:11 [facility] CENTER LABORATORY SERVICES Sodium, i-STAT 139 136 - 145 12/20/2017 [facility] mEq/L 14:11 [facility] [place] LAB[facility]ATORY SERVICES Potassium, 3.9 3.5 - 5.0 12/20/2017 [facility] i-STAT mEq/L 14:11 [facility] CENTER LABORATORY SERVICES Glucose, I-STAT 90 70 - 100 12/20/2017 [facility] mg/dl 14:11 [facility] CENTER LABORATORY SERVICES Hematocrit,iSTA 26 (L) 34.9 - 12/20/2017 [facility] T 44.4 % 14:11 [facility] LAB[facility]ATORY SERVICES Calcium, 1.19 1.12 - 12/20/2017 [facility] Ionized 1.32 14:11 [facility] mmol/L LABORATORY SERVICES Base Excess, 2 12/20/2017 [facility] i-STAT 14:11 [facility] LABORATORY SERVICES Sample Type NOT GIVEN 12/20/2017 [facility] 14:11 T CENTER LABORATORY wagon driver salesperson ID [phone] 12/20/2017 [facility] 14:11 [facility]ENTER LABORATORY SERVICES Comment: Test performed by Perfusion For non-arterial reference ranges, please see ISTAT procedure. Specimen Anatomical Collection Method Collection Time Receive d Time (Source) Location / / Volume Laterality BLOOD SPECIMEN / 12/20/2017 9:24 04 18 Unknown EDT 14:11 EDT Gerald Castro MD CHEMISTRY & BLOOD GAS ORDERA BLES Performing Organization Address City/State/ZIP Code Phon e Number [facility] [address] [place] [phone] SERVICES ACT, CELITE ISTAT (12/20/2017 9:24 EDT) athologist Signature Activated 156 12/20/2017 [facility] Clotting Time 9:58 EDT [facility]ENTER LABORATORY wagon driver salesperson ID [phone] 12/20/2017 [facility] 9:58 EDT CENTER LABORATORY SERVICES Comment: Test performed by Perfusion Baseline ref range is less than or equal to 160 seconds For non baseline ref ranges see raymond [place] Specimen Anatomical Collection Method Collection Time Receive d Time (Source) Location / / Volume Laterality BLOOD SPECIMEN / 12/20/2017 9:24 12/21/19 18 9:58 Unknown EDT EDT Gerald Castro MD POINT OF CARE TEST ORDERABLE S Performing Organization Address City/State/ZIP Code Phon e Number [facility] [address] [place] [address] SERVICES TEST, URINE (12/20/2017 8:05 EDT) athologist Signature Result-Pregnan Neg Neg 12/20/2017 [facility] cy Test, Ur 8:22 EDT [facility]ENTER LAB[facility]ATORY SERVICES Comment: NOTE: False negative results may occur in women who are beyond 5-8 weeks gestation. Diagnosis of should be based on a correlation of test results with typical clinical signs and symptoms. Specimen Anatomical Collection Method Collection Time Receive d Time (Source) Location / / Volume Laterality Urine URINE / Unknown 12/20/2017 8:05 8 8:16 (substance) EDT EDT Rosalia Baugh MD URINALYSIS ORDERABLES Performing Organization Address City/State/ZIP Code Phon e Number [facility] [address] [place] [address] SERVICES ANESTH TRANSESOPHAGEAL ECHO (12/20/2017 7:40 EDT) Anatomical Region Laterality Modality Other Specimen (Source) Anatomical Collection Method Collection Time Re ceived Time Location / / Volume Laterality 12/20/2017 7:40 EDT Narrative 12/20/2017 7:40 EDT Non Reportable Exam Procedure Note SPLASH LINE OPERATOR, IMAGING - 12/20/2017Formatt ing of this note might be different from the original. Non Reportable Exam Chad Gutierrez MD CARDIAC ECHO ORDERABLES MAGNESIUM (12/20/2017 4:58 EDT) athologist Signature Magnesium 2.0 1.7 - 2.8 12/20/2017 [facility] mg/dl 6:00 EDT [facility]ENTER LABORATORY SERVICES Specimen Anatomical Collection Method Collection Time Receive d Time (Source) Location / / Volume Laterality Blood specimen BLOOD SPECIMEN / 12/20/2017 4:58 2017 5:25 (specimen) Unknown EDT EDT Estrada Mccarthy MD CHEMISTRY & BLOOD GAS ORDERA BLES Performing Organization Address City/State/ZIP Code Phon e Number [facility] [address] [place] [address] SERVICES (ABNORMAL) HEMAGRAM (12/20/2017 4:58 EDT) athologist Signature WBC 6.01 4.0 - 12.4 12/20/2017 [facility] K/cmm 5:49 EDT [facility]ENTER LAB[facility]ATORY SERVICES RBC 3.29 (L) 3.86 - 12/20/2017 [facility] 5.04 M/cmm 5:49 EDT [facility]ENTER LAB[facility]ORY SERVICES Hemoglobin 8.3 (L) 11.6 - 12/20/2017 [facility] 15.2 gm/dl 5:49 EDT [facility]ENTER LAB[facility]ATORY SERVICES HCT 26.4 (L) 34.9 - 12/20/2017 [facility] 44.4 % 5:49 EDT [facility]ENTER [facility] SERVICES MCV 80 (L) 81 - 98 fl 12/20/2017 [facility] 5:49 EDT [facility]ENTER LAB[facility] SERVICES MCH 25.2 (L) 26.7 - 12/20/2017 [facility] 33.3 pg 5:49 EDT [facility]ENTER LAB[facility] SERVICES Hypochromia 1+ 12/20/2017 [facility] 5:49 EDT [facility]ENTER LAB[facility]ORY SERVICES MCHC 31.4 (L) 32.1 - 12/20/2017 [facility] 35.9 gm/dl 5:49 EDT [facility]ENTER LAB[facility]ORY SERVICES RDW-CV 23.7 (H) <14.7 % 12/20/2017 [facility] 5:49 EDT [facility]ENTER LABORATORY SERVICES RDW-SD 69.0 (H) <50.4 fl 12/20/2017 [facility] 5:49 EDT [facility]ENTER LAB[facility]ORY SERVICES Anisocytosis 2+ 12/20/2017 [facility] 5:49 EDT [facility]ENTER LABORATORY SERVICES PLT 342 141 - 377 12/20/2017 [facility] K/cmm 5:49 EDT [facility]ENTER LAB[facility]ORY SERVICES MPV 8.8 (L) 9.5 - 12.7 12/20/2017 [facility] fl 5:49 EDT [facility]ENTER LAB[facility]ATORY SERVICES Specimen Anatomical Collection Method Collection Time Receive d Time (Source) Location / / Volume Laterality Blood specimen BLOOD SPECIMEN / 12/20/2017 4:58 2017 5:25 (specimen) Unknown EDT EDT Estrada Mccarthy MD HEMATOLOGY & PF4 ORDERABLES Performing Organization Address City/State/ZIP Code Phon e Number [facility] [address] [place] [phone] SERVICES ELECTROLYTES (12/20/2017 4:58 EDT) athologist Signature Sodium 136 136 - 145 12/20/2017 [facility] mEq/L 6:00 EDT [facility]ENTER LAB[facility]ORY SERVICES Potassium 4.7 3.5 - 5.0 12/20/2017 [facility] mEq/L 6:00 EDT [facility]ENTER LAB[facility] SERVICES Chloride 102 96 - 110 12/20/2017 [facility] mEq/L 6:00 EDT [facility]ENTER LAB[facility]ATORY SERVICES CO2 28 22 - 32 12/20/2017 [facility] mEq/L 6:00 EDT [facility]ENTER LAB[facility]ORY SERVICES Specimen Anatomical Collection Method Collection Time Receive d Time (Source) Location / / Volume Laterality Blood specimen BLOOD SPECIMEN / 12/20/2017 4:58 2017 5:25 (specimen) Unknown EDT EDT Estrada Mccarthy MD CHEMISTRY & BLOOD GAS ORDERA BLES Performing Organization Address City/[facility]/ZIP Code Phon e Number [facility] [address] [place] [phone] SERVICES CREATININE (12/20/2017 4:58 EDT) athologist Signature Creatinine 0.90 0.52 - 12/20/2017 [facility] 1.04 mg/dl 6:00 EDT CENTER LABORATORY SERVICES GFR, Calculated 87 >60 12/20/2017 [facility] ml/min/1.7 6:00 EDT CENTER 3m2 LABORATORY SERVICES Comment: eGFR calculated using CKD-EPI equation f or non Americans. Multiply eGFR by 1.16 for Americans. Specimen Anatomical Collection Method Collection Time Receive d Time (Source) Location / / Volume Laterality Blood specimen BLOOD SPECIMEN / 12/20/2017 4:58 2017 5:25 (specimen) Unknown EDT EDT Estrada Mccarthy MD CHEMISTRY & BLOOD GAS ORDERA BLES Performing Organization Address City/State/ZIP Code Phon e Number [facility] [address] [place] [address] SERVICES (ABNORMAL) BUN (12/20/2017 4:58 EDT) P athologist Signature BUN 9 (L) 10 - 26 12/20/2017 [facility] mg/dl 6:00 EDT [facility] LAB[facility]ATORY SERVICES Specimen Anatomical Collection Method Collection Time Receive d Time (Source) Location / / Volume Laterality Blood specimen BLOOD SPECIMEN / 12/20/2017 4:58 2017 5:25 (specimen) Unknown EDT EDT Estrada Mccarthy MD CHEMISTRY & BLOOD GAS ORDERA BLES Performing Organization Address City/State/ZIP Code Phon e Number [facility] [address] [place] [address] CHEST (PE) PROTOCOL W CONTRAST (12/19/2017 13:01 EDT) Anatomical Region Laterality Modality Other Specimen Anatomical Collection Method Collection Time Receive d Time (Source) Location / / Volume Laterality 12/19/2017 13:01 12/19/2017 EDT 15:58 EDT Narrative 12/19/2017 15:58 EDT CTA CHEST W CONTRAST [...] by Rhona Ardon at 12/19/2017 3:55 PM Charlie Daniel MD IM CT ORDERABLES CT FACIAL BONES W CONTRAST (12/19/2017 13:01 EDT) Anatomical Region Laterality Modality Other Specimen Anatomical Collection Method Collection Time Receive d Time (Source) Location / / Volume Laterality 12/19/2017 13:01 12/19/2017 EDT 16:59 EDT Narrative 12/19/2017 16:[address] ??facial bones with [...] findings. Procedure Note Umair Reynoso MD - 12/19/2017Formattin g of this note might be different from the original. CT facial bones with contrast History: Endocarditis, [...] above interpretation and agree with the findings. Charlie Daniel MD IM CT ORDERABLES (ABNORMAL) UA CHEMICAL (DIPSTICK ONLY) (12/19/2017 11:55 EDT) [facility] Method Time Signature Color, UA Yellow 12/19/2017 [facility] 19:01 EDT [facility]ENTER LAB[facility]ATORY SERVICES Clarity, UA Clear 12/19/2017 [facility] 19:01 EDT [facility]ENTER LABORATORY SERVICES Glucose, UA Neg Neg 12/19/2017 [facility] 19:01 EDT [facility]ENTER LABORATORY SERVICES Bilirubin, UA Neg Neg 12/19/2017 [facility] 19:01 T [facility]ENTER LAB[facility]ATORY SERVICES Ketones, UA Neg Neg 12/19/2017 [facility] 19:01 T [facility]ENTER LAB[facility]ATORY SERVICES Refractometer 1.035 1.001 - 12/19/2017 [facility] SG,Urine 1.035 19:01 [facility] LABORATORY SERVICES Blood, UA 2+ (A) Neg 12/19/2017 [facility] 19:01 [facility] CENTER LABORATORY SERVICES pH, UA 8.0 4.6 - 8.0 12/19/2017 [facility] 19:01 [facility]ENTER LABORATORY SERVICES Protein, UA 1+ (A) Neg 12/19/2017 [facility] 19:01 [facility] CENTER LABORATORY SERVICES Urobilinogen, UA Normal Normal 12/19/2017 [facility] E.U./dl 19:01 [facility] LABORATORY SERVICES Nitrite, UA Neg Neg 12/19/2017 [facility] 19:01 [facility]ENTER LABORATORY SERVICES Leuk Esterase Neg Neg 12/19/2017 [facility] 19:01 [facility] CENTER LABORATORY SERVICES UA Method Used 12/19/2017 [facility] 18:50 [facility] CENTER LABORATORY SERVICES Comment: Testing performed using Aditive [id number]. Specimen Anatomical Collection Method Collection Time Receive d Time (Source) Location / / Volume Laterality URINE / Unknown 12/19/2017 11:55 12/20/19 18 EDT 18:50 EDT Charlie Daniel MD URINALYSIS ORDERABLES Performing Organization Address City/[facility]/ZIP Code Phon e Number [facility] [address] [place] [address] SERVICES URINE CULTURE IF UA POSITIVE - NON POCT URINALYSIS ONLY (12/19/2017 11:55 EDT) [facility] Method Time Signature Culture if Culture not 12/19/2017 [facility] Indicated indicated by 19:01 [facility] CENTER urinalysis LABORATORY results. SERVICES Specimen Anatomical Collection Method Collection Time Receive d Time (Source) Location / / Volume Laterality Urine OTHER / Unknown 12/19/2017 11:55 12/20/19 18 (substance) EDT 18:50 EDT Charlie Daniel MD MICROBIOLOGY - GENERAL ORDER CURTIS Performing Organization Address City/[facility] Phon e Number [facility] [address] [place] [phone] SERVICES (ABNORMAL) GENTAMICIN PEAK (12/19/2017 9:25 EDT) [facility] Method Time Signature Gentamicin Peak 3.0 (L) 5.0 - 12/19/2017 [facility] 12.0 10:14 EDT CENTER ug/ml LABORATORY SERVICES Type of Draw CATHETER, 12/19/2017 [facility] ANY 9:25 EDT [facility]ENTER LABORATORY SERVICES Specimen Anatomical Collection Method Collection Time Receive d Time (Source) Location / / Volume Laterality Blood specimen BLOOD SPECIMEN / 12/19/2017 9:25 2017 9:48 (specimen) Unknown EDT EDT Isabelle Garcia MD CHEMISTRY & BLOOD GAS ORDERA BLES Performing Organization Address City/State/ZIP Code Phon e Number [facility] [address] [place] [phone] SERVICES GENTAMICIN TROUGH (12/19/2017 7:44 EDT) [facility] Method Time Signature Gentamicin 0.6 <1.5 12/19/2017 [facility] Trough ug/ml 8:45 EDT [facility]ENTER LABORATORY SERVICES Type of Draw CATHETER, 12/19/2017 [facility] ANY 7:44 EDT [facility]ENTER LABORATORY SERVICES Specimen Anatomical Collection Method Collection Time Receive d Time (Source) Location / / Volume Laterality Blood specimen BLOOD SPECIMEN / 12/19/2017 7:44 2017 7:56 (specimen) Unknown EDT EDT Isabelle Garcia MD CHEMISTRY & BLOOD GAS ORDERA BLES Performing Organization Address City/State/ZIP Code Phon e Number [facility] [address] [place] [address] SERVICES TYPE AND SCREEN (12/19/2017 7:43 EDT) [facility] Method Time Signature ABO O [facility] B[facility] B[facility] Rh Factor Positive [facility] B[facility] Antibody Negative [facility] CENTER BLOOD BANK Specimen 12/22/2017 @ [facility] Expires: 23:59 CENTER BLOOD BANK Specimen (Source) Anatomical Collection Method Collection Time Re ceived Time Location / / Volume Laterality Blood specimen 12/19/2017 7:43 (specimen) EDT Neptali Lopez PA-C BLOOD BANK TESTS Performing Organization Address City/State/ZIP Code Phon e Number [facility] [address] [place], [place] [address] [place] [address] BLOOD BANK (ABNORMAL) HEMAGRAM (12/18/2017 8:16 EDT) P athologist Signature WBC 6.11 4.0 - 12.4 12/18/2017 [facility] K/count includes the [facility] 8:46 EDT CENTER LABORATORY SERVICES RBC 3.47 (L) 3.86 - 12/18/2017 [facility] 5.04 M/count includes the [facility] 8:46 EDT CENTER LABORATORY SERVICES Hemoglobin 8.6 (L) 11.6 - 12/18/2017 [facility] 15.2 gm/dl 8:46 EDT CENTER LABORATORY SERVICES HCT 27.9 (L) 34.9 - 12/18/2017 [facility] 44.4 % 8:46 EDT CENTER LABORATORY SERVICES MCV 80 (L) 81 - 98 fl 12/18/2017 [facility] 8:46 EDT CENTER LABORATORY SERVICES MCH 24.8 (L) 26.7 - 12/18/2017 [facility] 33.3 pg 8:46 EDT CENTER LABORATORY SERVICES Hypochromia 1+ 12/18/2017 [facility] 8:46 EDT CENTER LABORATORY SERVICES MCHC 30.8 (L) 32.1 - 12/18/2017 [facility] 35.9 gm/dl 8:46 EDT CENTER LABORATORY SERVICES RDW-CV 24.0 (H) <14.7 % 12/18/2017 [facility] 8:46 EDT CENTER LABORATORY SERVICES RDW-SD 70.4 (H) <50.4 fl 12/18/2017 [facility] 8:46 EDT CENTER LABORATORY SERVICES Anisocytosis 2+ 12/18/2017 [facility] 8:46 EDT CENTER LABORATORY SERVICES PLT 312 141 - 377 12/18/2017 [facility]/count includes the [facility] 8:46 EDT CENTER LABORATORY SERVICES MPV 9.0 (L) 9.5 - 12.7 12/18/2017 [facility] fl 8:46 EDT CENTER LABORATORY SERVICES Specimen Anatomical Collection Method Collection Time Receive d Time (Source) Location / / Volume Laterality Blood specimen BLOOD SPECIMEN / 12/18/2017 8:16 2017 8:36 (specimen) Unknown EDT EDT Estrada Mccarthy MD HEMATOLOGY & PF4 ORDERABLES Performing Organization Address City/State/ZIP Code Phon e Number [facility] LABORATORY [address] [place] [address] SERVICES INPATIENT ADD-ON (12/18/2017 8:05 EDT) [facility] gist Method Time Signature Tests to be CREATININE 12/18/2017 [facility] added 8:02 EDT CENTER LABORATORY SERVICES Number for M5 12/18/2017 [facility] problems 8:05 EDT CENTER LABORATORY SERVICES 12/18/2017 [facility] number 8:05 EDT CENTER LABORATORY SERVICES Specimen Anatomical Collection Method Collection Time Receive d Time (Source) Location / / Volume Laterality OTHER / Unknown 12/18/2017 8:05 8 8:06 EDT EDT Isabelle Garcia MD HEMATOLOGY & PF4 ORDERABLES Performing Organization Address City/State/ZIP Code Phon e Number [facility] LAB[facility] [address] [place] [address] SERVICES CREATININE (12/18/2017 6:00 EDT) athologist Signature Creatinine 0.89 0.52 - 12/18/2017 [facility] 1.04 mg/dl 8:49 EDT CENTER LABORATORY SERVICES GFR, Calculated 88 >60 12/18/2017 [facility] ml/min/1.7 8:49 EDT CENTER 3m2 LABORATORY SERVICES Comment: eGFR calculated using CKD-EPI equation f or non Americans. Multiply eGFR by 1.16 for Americans. Specimen Anatomical Collection Method Collection Time Receive d Time (Source) Location / / Volume Laterality BLOOD SPECIMEN / 12/18/2017 6:00 12/19/19 18 6:21 Unknown EDT EDT Estrada Mccarthy MD CHEMISTRY & BLOOD GAS ORDERA BLES Performing Organization Address City/State/ZIP Code Phon e Number [facility] LABORATORY [address] [place] [address] SERVICES MAGNESIUM (12/18/2017 6:00 EDT) athologist Signature Magnesium 2.0 1.7 - 2.8 12/18/2017 [facility] mg/dl 6:56 EDT CENTER LABORATORY SERVICES Specimen Anatomical Collection Method Collection Time Receive d Time (Source) Location / / Volume Laterality Blood specimen BLOOD SPECIMEN / 12/18/2017 6:00 2017 6:21 (specimen) Unknown EDT EDT Estrada Mccarthy MD CHEMISTRY & BLOOD GAS ORDERA BLES Performing Organization Address City/State/ZIP Code Phon e Number [facility] LAB[facility] [address] [place] [address] SERVICES ELECTROLYTES (12/18/2017 6:00 EDT) athologist Signature Sodium 137 136 - 145 12/18/2017 [facility] mEq/L 6:56 EDT CENTER LABORATORY SERVICES Potassium 4.1 3.5 - 5.0 12/18/2017 [facility] mEq/L 6:56 EDT CENTER LABORATORY SERVICES Chloride 102 96 - 110 12/18/2017 [facility] mEq/L 6:56 EDT CENTER LABORATORY SERVICES CO2 29 22 - 32 12/18/2017 [facility] mEq/L 6:56 EDT CENTER LABORATORY SERVICES Specimen Anatomical Collection Method Collection Time Receive d Time (Source) Location / / Volume Laterality Blood specimen BLOOD SPECIMEN / 12/18/2017 6:00 2017 6:21 (specimen) Unknown EDT EDT Estrada Mccarthy MD CHEMISTRY & BLOOD GAS ORDERA BLES Performing Organization Address City/State/ZIP Code Phon e Number [facility] LABOR[facility] [address] [place] [address] SERVICES BUN (12/18/2017 6:00 EDT) athologist Signature BUN 10 10 - 26 12/18/2017 [facility] mg/dl 6:56 EDT CENTER LABORATORY SERVICES Specimen Anatomical Collection Method Collection Time Receive d Time (Source) Location / / Volume Laterality Blood specimen BLOOD SPECIMEN / 12/18/2017 6:00 2017 6:21 (specimen) Unknown EDT EDT Estrada Mccarthy MD CHEMISTRY & BLOOD GAS ORDERA BLES Performing Organization Address City/State/ZIP Code Phon e Number [facility] LAB[facility]ATORY [address] [place] [address] SERVICES ECG REPORT - SCANNED (12/17/2017 14:20 EDT) Specimen (Source) Anatomical Collection Method Collection Time Re ceived Time Location / / Volume Laterality 12/17/2017 14:20 EDT Narrative This result has an attachment that is no t available. 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 Procedure Note Nick Miranda MD - 12/17/2017Formatt ing of this note might be different from the original. RAD US DOPPLER LOWER EXTREMITY VENOUS UN [...] above interpretation and agree with the findings. Estrada Mccarthy MD IMG US ORDERABLES URINE CULTURE IF UA POSITIVE - NON POCT URINALYSIS ONLY (12/17/2017 10:57 EDT) [facility] Method Time Signature Culture if Culture not 12/17/2017 [facility] Indicated indicated by 14:28 EDT CENTER urinalysis LABORATORY results. SERVICES Specimen Anatomical Collection Method Collection Time Receive d Time (Source) Location / / Volume Laterality Urine OTHER / Unknown 12/17/2017 10:57 12/18/19 18 (substance) EDT 13:58 EDT Neptali Lopez PA-C MICROBIOLOGY - GENERAL ORDER CURTIS Performing Organization Address City/State/ZIP Code Phon e Number [facility] LABORATORY [address] [place] [address] SERVICES (ABNORMAL) UA, CHEMICAL AND SEDIMENT ANALYSIS (DIPSTICK AND MICROSCOPIC) (12/17/2017 10:57 EDT) [facility] Method Time Signature Color, UA Yellow 12/17/2017 [facility] 14:28 EDT CENTER LABORATORY SERVICES Clarity, UA Clear 12/17/2017 [facility] 14:28 [facility] CENTER LABORATORY SERVICES Glucose, UA Neg Neg 12/17/2017 [facility] 14:28 [facility] CENTER LABORATORY SERVICES Bilirubin, UA Neg Neg 12/17/2017 [facility] 14:28 T CENTER LABORATORY SERVICES Ketones, UA Neg Neg 12/17/2017 [facility] 14:28 [facility] CENTER LABORATORY SERVICES Refractometer 1.012 1.001 - 12/17/2017 [facility] SG,Urine 1.035 14:28 [facility] LABORATORY SERVICES Blood, UA 2+ (A) Neg 12/17/2017 [facility] 14:28 T CENTER LABORATORY SERVICES pH, UA 8.0 4.6 - 8.0 12/17/2017 [facility] 14:28 T CENTER LABORATORY SERVICES Protein, UA Neg Neg 12/17/2017 [facility] 14:28 T CENTER LABORATORY SERVICES Urobilinogen, UA Normal Normal 12/17/2017 [facility] E.U./dl 14:28 T CENTER LABORATORY SERVICES Nitrite, UA Neg Neg 12/17/2017 [facility] 14:28 EDT CENTER LABORATORY SERVICES Leuk Esterase Neg Neg 12/17/2017 [facility] 14:28 T CENTER LABORATORY SERVICES UA Method Used 12/17/2017 [facility] 10:13 [facility] CENTER LABORATORY SERVICES Comment: Testing performed using Aditive AU-[id number]. Urine RBC Count 11 to 50 (A) 0 to 2 /HPF 12/17/2017 14:28 [facility] Automated EDT CENTER LABORATORY SERVICES Urine WBC Count 0 to 3 0 to 3 /HPF 12/17/2017 14:28 [facility] EDICAL Automated EDT CENTER LABORATORY SERVICES Urine Squamous Few (A) None seen 12/17/2017 14:28 [facility] Epithelial Cell /LPF EDT CENTER LABORAT ORY Count, Automated SERVICES Urine Hyaline < or = 10 < or = 10 12/17/2017 14:28 [facility] AL Casts, Automated /LPF EDT CENTER LABORA TORY SERVICES Urine Bacteria None seen None seen 12/17/2017 14:28 [facility] [place] Count, Automated EDT CENTER LABORA TORY SERVICES UA Comment Sediment results 12/17/2017 14:28 [facility] EDICAL EDT CENTER LABORATORY SERVICES Comment: are unreliable on urines unrefrig >2hrs or refrig >8hrs. Specimen Anatomical Collection Method Collection Time Receive d Time (Source) Location / / Volume Laterality Urine URINE / Unknown 12/17/2017 10:57 12/18/19 18 (substance) EDT 13:58 EDT Neptali Lopez PA-C URINALYSIS ORDERABLES Performing Organization Address City/State/ZIP Code Phon e Number [facility] LABORAT[facility] [address] [place] [address] SERVICES (ABNORMAL) GENTAMICIN PEAK (12/17/2017 10:56 EDT) [facility] gist Method Time Signature Gentamicin Peak 4.0 (L) 5.0 - 12/17/2017 [facility] 12.0 11:44 EDT CENTER ug/ml LABORATORY SERVICES Type of Draw CATHETER, 12/17/2017 [facility] ANY 10:56 EDT CENTER LABORATORY SERVICES Specimen Anatomical Collection Method Collection Time Receive d Time (Source) Location / / Volume Laterality Blood specimen BLOOD SPECIMEN / 12/17/2017 10:56 12/17 (specimen) Unknown EDT 11:21 EDT Isabelle Garcia MD CHEMISTRY & BLOOD GAS ORDERA BLES Performing Organization Address City/State/ZIP Code Phon e Number [facility] LABORATORY [address] [place] [address] SERVICES CHEST PA AND LATERAL (12/17/2017 10:50 EDT) Anatomical Region Laterality Modality Other Specimen Anatomical Collection Method Collection Time Receive d Time (Source) Location / / Volume Laterality 12/17/2017 10:50 12/17/2017 EDT 11:28 EDT Narrative 12/17/2017 11:28 EDT CHEST PA AND LATERAL [...] age. Procedure Note Brandon Sparrow MD - 12/17/2017Formatti ng of this note might be different from the original. CHEST PA AND LATERAL 12/17/2017 10:50 AM [...] The s keleton is unremarkable for age. Neptali Lopez PA-C IMG DIAGNOSTIC IMAGING ORDER CURTIS MRSA PCR (12/17/2017 10:15 EDT) [facility] Method Time Signature Result No Staphylococcus 12/17/2017 [facility] aureus detected by 16:11 EDT CENTER PCR. LABORATORY SERVICES Specimen Anatomical Collection Method Collection Time Receive d Time (Source) Location / / Volume Laterality Other (qualifier NASAL / Unknown 12/17/2017 10:15 12/05 value) EDT 11:56 EDT Neptali Lopez PA-C MICROBIOLOGY - GENERAL ORDER CURTIS Performing Organization Address City/State/ZIP Code Phon e Number [facility] LABORATORY [address] [place] [address] SERVICES PREPARE RED BLOOD CELLS (12/17/2017 10:13 EDT) [facility] Method Time Signature Product Code [id number] [facility] BLOOD [facility] Donor Number [id number] [facility] B[facility]OD [facility] Unit ABO O [facility] B[facility] Unit Rh POS [facility] BLOOD B[facility] Unit Status RE^Released From [facility] BLOOD BANK Product [id number] [facility] BLOOD Date BANK Unit Blood [address] [facility] BLOOD BANK Coding System [id number] [facility] B[facility]OD [facility] Specimen (Source) Anatomical Collection Method Collection Time Re ceived Time Location / / Volume Laterality 12/17/2017 10:13 EDT Neptali Lopez FISH BLOOD BANK ORDERABLES Performing Organization Address City/[facility]/ZIP Code Phon e Number [facility] BLOOD [facility] [address] [facility]. [address] BLOOD BANK PREPARE RED BLOOD CELLS (12/17/2017 10:13 EDT) [facility] Method Time Signature Product Code [id number] [facility] B[facility] Donor Number [id number] [facility] BLOOD [facility]ANK Unit ABO O [facility] BLOOD [facility] Unit Rh POS [facility] BLOOD [facility] Unit Status RE^Released From [facility] BLOOD BANK Product [id number] [facility] BLOOD Date BANK Unit Blood [address] [facility] BLOOD BANK Coding System [id number] [facility] B[facility]OD [facility] Specimen (Source) Anatomical Collection Method Collection Time Re ceived Time Location / / Volume Laterality 12/17/2017 10:13 EDT Neptali Scott Jessica [facility] BLOOD BANK ORDERABLES Performing Organization Address City/[facility]/ZIP Code Phon e Number [facility] B[facility]OD [facility] [address] [facility]. [address] BLOOD BANK PREPARE RED BLOOD CELLS (12/17/2017 10:13 EDT) [facility] Method Time Signature Product Code [id number] [facility] B[facility] Donor Number [id number] [facility] BLOOD BANK Unit ABO O [facility] BLOOD [facility] Unit Rh POS [facility] BLOOD B[facility] Unit Status TR^Transfuse [facility] BLOOD BANK Product [id number] [facility] BLOOD Date BANK Unit Blood [address] [facility] BLOOD BANK Coding System [id number] [facility] BLOOD BANK Specimen (Source) Anatomical Collection Method Collection Time Re ceived Time Location / / Volume Laterality 12/17/2017 10:13 EDT Neptali Lopez PA-C BLOOD BANK ORDERABLES Performing Organization Address City/[facility]/ZIP Code Phon e Number [facility] B[facility]OD [facility] [address] [facility]. [address] BLOOD BANK PREPARE RED BLOOD CELLS (12/17/2017 10:13 EDT) [facility] gist Method Time Signature Product Code [id number] [facility] BLOOD [facility] Donor Number [id number] [facility] BLOOD [facility] Unit ABO O [facility] BLOOD [facility] Unit Rh POS [facility] BLOOD [facility] Unit Status RE^Released From [facility] Crossmatch [place] BLOOD BANK Product [id number] [facility] Expiration [place] [facility]LOOD Date BANK Unit Blood [address] [facility] Type Code [place] BLOOD BANK Coding System [id number] [facility] B[facility] Specimen (Source) Anatomical Collection Method Collection Time Re ceived Time Location / / Volume Laterality Blood specimen 12/17/2017 10:13 (specimen) EDT Neptali Lopez PA-C BLOOD BANK ORDERABLES Performing Organization Address City/[facility]/ZIP Code Phon e Number [facility] B[facility] [address] [facility]. [address] BLOOD BANK (ABNORMAL) HEMAGRAM AND DIFFERENTIAL (12/17/2017 6:00 EDT) [facility] gist Method Time Signature WBC 4.86 4.0 - 12/17/2017 [facility] 12.4 6:38 EDT CENTER K/count includes the [facility] LABORATORY SERVICES RBC 3.25 (L) 3.86 - 12/17/2017 [facility] 5.04 6:38 EDT CENTER /count includes the [facility] LABORATORY SERVICES Hemoglobin 8.1 (L) 11.6 - 12/17/2017 [facility] 15.2 6:38 EDT CENTER gm/dl LABORATORY SERVICES HCT 26.4 (L) 34.9 - 12/17/2017 [facility] 44.4 % 6:38 EDT CENTER LABORATORY SERVICES MCV 81 81 - 98 12/17/2017 [facility] fl 6:38 EDT CENTER LABORATORY SERVICES MCH 24.9 (L) 26.7 - 12/17/2017 [facility] 33.3 pg 6:38 EDT CENTER LABORATORY SERVICES Hypochromia 1+ 12/17/2017 [facility] 6:38 EDT CENTER LABORATORY SERVICES MCHC 30.7 (L) 32.1 - 12/17/2017 [facility] 35.9 6:38 EDT CENTER gm/dl LABORATORY SERVICES RDW-CV 23.7 (H) <14.7 % 12/17/2017 [facility] 6:38 EDT CENTER LABORATORY SERVICES RDW-SD 70.1 (H) <50.4 fl 12/17/2017 [facility] 6:38 EDT CENTER LABORATORY SERVICES Anisocytosis 2+ 12/17/2017 [facility] 6:38 EDT CENTER LABORATORY SERVICES PLT 249 141 - 377 12/17/2017 [facility] K/cm 6:38 EDT CENTER LABORATORY SERVICES MPV 9.0 (L) 9.5 - 12/17/2017 [facility] 12.7 fl 6:38 EDT CENTER LABORATORY SERVICES Neutrophils 43.0 % 12/17/2017 [facility] 8:19 EDT CENTER LABORATORY SERVICES Lymphocytes 51.0 % 12/17/2017 [facility] 8:19 EDT CENTER LABORATORY SERVICES Monocytes 4.0 % 12/17/2017 [facility] 8:19 EDT CENTER LABORATORY SERVICES Eosinophils 1.0 % 12/17/2017 [facility] 8:19 EDT CENTER LABORATORY SERVICES Basophils 1.0 % 12/17/2017 [facility] 8:19 EDT CENTER LABORATORY SERVICES ABS Neutrophils 2.09 (L) 2.20 - 12/17/2017 [facility] 8.85 8:19 EDT CENTER K/cmm LABORATORY SERVICES ABS Lymphs 2.48 1.09 - 12/17/2017 [facility] 3.30 8:19 EDT CENTER K/cmm LABORATORY SERVICES ABS Monocytes 0.19 0.1 - 0.8 12/17/2017 [facility] K/cm 8:19 EDT CENTER LABORATORY SERVICES ABS Eosinophils 0.05 0.03 - 12/17/2017 [facility] 0.61 8:19 EDT CENTER K/cmm LABORATORY SERVICES ABS Basophils 0.05 0.01 - 12/17/2017 [facility] 0.11 8:19 EDT CENTER K/cm LABORATORY SERVICES Type of Diff: Manual 12/17/2017 [facility] 8:19 EDT CENTER LABORATORY SERVICES Specimen Anatomical Collection Method Collection Time Receive d Time (Source) Location / / Volume Laterality Blood specimen BLOOD SPECIMEN / 12/17/2017 6:00 2017 6:28 (specimen) Unknown EDT EDT Yoana Paul MD PACKAGES & DNA PROBE ORDERAB LES Performing Organization Address City/State/ZIP Code Phon e Number [facility] LAB[facility] [address] [place] [address] SERVICES CREATININE (12/17/2017 6:00 EDT) athologist Signature Creatinine 0.92 0.52 - 12/17/2017 [facility] 1.04 mg/dl 7:01 EDT CENTER LABORATORY SERVICES GFR, Calculated 85 >60 12/17/2017 [facility] ml/min/1.7 7:01 EDT CENTER 3m2 LABORATORY SERVICES Comment: eGFR calculated using CKD-EPI equation f or non Americans. Multiply eGFR by 1.16 for Americans. Specimen Anatomical Collection Method Collection Time Receive d Time (Source) Location / / Volume Laterality Blood specimen BLOOD SPECIMEN / 12/17/2017 6:00 2017 6:28 (specimen) Unknown EDT EDT Isabelle Garcia MD CHEMISTRY & BLOOD GAS ORDERA BLES Performing Organization Address City/[facility]/ZIP Code Phon e Number [facility] LAB[facility]ATORY [address] [place] [phone] SERVICES GENTAMICIN, RANDOM (12/17/2017 6:00 EDT) athologist Signature Gentamicin, 1.0 ug/ml 12/17/2017 [facility] Random 7:05 EDT CENTER LABORATORY SERVICES Comment: Reference Range: Trough: ??<1.5 Peak: ??5.0-12.0 Specimen Anatomical Collection Method Collection Time Receive d Time (Source) Location / / Volume Laterality Blood specimen BLOOD SPECIMEN / 12/17/2017 6:00 2017 6:28 (specimen) Unknown EDT EDT Isabelle Garcia MD CHEMISTRY & BLOOD GAS ORDERA BLES Performing Organization Address City/State/ZIP Code Phon e Number [facility] LAB[facility] [address] [place] [address] SERVICES MAGNESIUM (12/16/2017 11:44 EDT) athologist Signature Magnesium 2.0 1.7 - 2.8 12/16/2017 [facility] mg/dl 12:31 EDT CENTER LABORATORY SERVICES Specimen Anatomical Collection Method Collection Time Receive d Time (Source) Location / / Volume Laterality Blood specimen BLOOD SPECIMEN / 12/16/2017 11:44 12/16 (specimen) Unknown EDT 12:09 EDT Estrada Mccarthy MD CHEMISTRY & BLOOD GAS ORDERA BLES Performing Organization Address City/State/ZIP Code Phon e Number [facility] LAB[facility]AT[facility] [address] [place] [address] SERVICES (ABNORMAL) HEMAGRAM (12/16/2017 11:44 EDT) P athologist Signature WBC 4.89 4.0 - 12.4 12/16/2017 [facility] K/count includes the [facility] 12:22 EDT CENTER LABORATORY SERVICES RBC 3.36 (L) 3.86 - 12/16/2017 [facility] 5.04 M/cmm 12:22 EDT CENTER LABORATORY SERVICES Hemoglobin 8.4 (L) 11.6 - 12/16/2017 [facility] 15.2 gm/dl 12:22 EDT CENTER LABORATORY SERVICES HCT 27.3 (L) 34.9 - 12/16/2017 [facility] 44.4 % 12:22 EDT CENTER LABORATORY SERVICES MCV 81 81 - 98 fl 12/16/2017 [facility] 12:22 EDT CENTER LABORATORY SERVICES MCH 25.0 (L) 26.7 - 12/16/2017 [facility] 33.3 pg 12:22 EDT CENTER LABORATORY SERVICES Hypochromia 1+ 12/16/2017 [facility] 12:22 EDT CENTER LABORATORY SERVICES MCHC 30.8 (L) 32.1 - 12/16/2017 [facility] 35.9 gm/dl 12:22 EDT CENTER LABORATORY SERVICES RDW-CV 23.5 (H) <14.7 % 12/16/2017 [facility] 12:22 EDT CENTER LABORATORY SERVICES RDW-SD 70.5 (H) <50.4 fl 12/16/2017 [facility] 12:22 EDT CENTER LABORATORY SERVICES Anisocytosis 2+ 12/16/2017 [facility] 12:22 EDT CENTER LABORATORY SERVICES PLT 254 141 - 377 12/16/2017 [facility] K/cmm 12:22 EDT CENTER LABORATORY SERVICES MPV 9.2 (L) 9.5 - 12.7 12/16/2017 MEDICAL fl 12:22 EDT CENTER LABORATORY SERVICES Specimen Anatomical Collection Method Collection Time Receive d Time (Source) Location / / Volume Laterality Blood specimen BLOOD SPECIMEN / 12/16/2017 11:44 12/16 (specimen) Unknown EDT 12:09 EDT Estrada Mccarthy MD HEMATOLOGY & PF4 ORDERABLES Performing Organization Address City/State/ZIP Code Phon e Number [facility] LAB[facility] [address] [place] [phone] SERVICES ELECTROLYTES (12/16/2017 11:44 EDT) athologist Signature Sodium 138 136 - 145 12/16/2017 [facility] mEq/L 12:31 EDT CENTER LABORATORY SERVICES Potassium 4.4 3.5 - 5.0 12/16/2017 [facility] mEq/L 12:31 [facility] LABORATORY SERVICES Chloride 103 96 - 110 12/16/2017 [facility] mEq/L 12:31 [facility] CO2 31 22 - 32 12/16/2017 [facility] mEq/L 12:31 [facility] Specimen Anatomical Collection Method Collection Time Receive d Time (Source) Location / / Volume Laterality Blood specimen BLOOD SPECIMEN / 12/16/2017 11:44 12/16 (specimen) Unknown EDT 12:09 EDT Estrada Mccarthy MD CHEMISTRY & BLOOD GAS ORDERA BLES Performing Organization Address City/State/ZIP Code Phon e Number [facility] [address] [place] [phone] SERVICES CREATININE (12/16/2017 11:44 EDT) P athologist Signature Creatinine 0.90 0.52 - 12/16/2017 [facility] 1.04 mg/dl 12:31 [facility] SERVICES GFR, Calculated 87 >60 12/16/2017 [facility] ml/min/1.7 12:31 EDT CENTER 3m2 LABORATORY SERVICES Comment: eGFR calculated using CKD-EPI equation f or non Americans. Multiply eGFR by 1.16 for Americans. Specimen Anatomical Collection Method Collection Time Receive d Time (Source) Location / / Volume Laterality Blood specimen BLOOD SPECIMEN / 12/16/2017 11:44 12/16 (specimen) Unknown EDT 12:09 EDT Estrada Mccarthy MD CHEMISTRY & BLOOD GAS ORDERA BLES Performing Organization Address City/State/ZIP Code Phon e Number [facility] [address] [place] [address] SERVICES (ABNORMAL) BUN (12/16/2017 11:44 EDT) P athologist Signature BUN 8 (L) 10 - 26 12/16/2017 [facility] mg/dl 12:31 EDT [facility]ENTER LABORATORY SERVICES Specimen Anatomical Collection Method Collection Time Receive d Time (Source) Location / / Volume Laterality Blood specimen BLOOD SPECIMEN / 12/16/2017 11:44 12/16 (specimen) Unknown EDT 12:09 EDT Estrada Mccarthy MD CHEMISTRY & BLOOD GAS ORDERA BLES Performing Organization Address City/State/ZIP Code Phon e Number [facility] [address] [place] [address] SERVICES ECG REPORT - SCANNED (12/16/2017 8:17 EDT) Specimen (Source) Anatomical Collection Method Collection Time Re ceived Time Location / / Volume Laterality 12/16/2017 8:17 EDT Narrative This result has an attachment that is no t available. Scan 2 Planer Chain Offbearer PROCEDURE/MINOR SURGICAL ORD ERABLES TRANSESOPHAGEAL ECHO (KRISTOPHER) (12/15/2017 15:54 EDT) Anatomical Region Laterality Modality Other Specimen (Source) Anatomical Collection Method Collection Time Re ceived Time Location / / Volume Laterality 12/15/2017 15:54 EDT Narrative 12/15/2017 17:07 EDT *Interpreting Group:* *[facility]* [address] [place] [address] Date of study: 12/15/2017 Transesophageal Echocardiography 2D, [...] MD ADMITTING ?? Arie Padilla ATTENDING ?? Valerie, Arie D. ORDERING ?Vo Do, Marta Vasquez REFERRING ?? Vo Do, Marta Vasquez PERFORMING ??[employer], Kristopher FELLOW ?Italo Batista MD *PROCEDURE DATA* Procedure information: ??Dr. Orlando laughlin supervised and was present for the performance of the entire procedure. This study was interpreted by [facility]. Pertinent images and digital data are archived for permanent storage and are available for subsequent review. ??Study status: ??Janine ramos. Diagnostic transesophageal echocardiography. ??2D, spectral Doppler , [...] 17:07 Procedure Note Orlando Alvarado MD - 12/15/2017Formattin g of this note might be different from the original. *Interpreting Group:* *[facility]* [address] [place] [address] Date of study: 12/15/2017 Transesophageal Echocardiography 2D, [...] Padilla ORDERING Vo Do, Marta P REFERRING Sumanth DoMarta P PERFORMING [employer], Kristopher FELLOW Italo Batista MD *PROCEDURE DATA* Procedure information: Dr. Orlando Alvarado supervised and was present for the performance of the entire procedure. This study was interpreted by [facility]. Pertinent images [...] signed by Orlando Alvarado MD 12/15/2017 17:07 Marta Rosalia Vo DO CARDIAC ECHO ORDERABLES ECG REPORT - SCANNED (12/14/2017 12:55 EDT) Specimen (Source) Anatomical Collection Method Collection Time Re ceived Time Location / / Volume Laterality 12/14/2017 12:55 EDT Narrative This result has an attachment that is no t available. Scan 2 Planer Chain Offbearer PROCEDURE/MINOR SURGICAL ORD ERABLES (ABNORMAL) GENTAMICIN PEAK (12/14/2017 12:19 EDT) [facility] gist Method Time Signature Gentamicin Peak 3.4 (L) 5.0 - 12/14/2017 [facility] 12.0 13:20 EDT CENTER ug/ml LABORATORY SERVICES Type of Draw VENIPUNCTU 12/14/2017 [facility] RE/HEELSTI 11:57 EDT CENTER CK LABORATORY (PREFERRED SERVICES ) Specimen Anatomical Collection Method Collection Time Receive d Time (Source) Location / / Volume Laterality Blood specimen BLOOD SPECIMEN / 12/14/2017 12:19 12/14 (specimen) Unknown EDT 12:35 EDT Isabelle Garcia MD CHEMISTRY & BLOOD GAS ORDERA BLES Performing Organization Address City/State/ZIP Code Phon e Number [facility] [address] [place] [address] SERVICES GENTAMICIN TROUGH (12/14/2017 9:17 EDT) Patholo gist Method Time Signature Gentamicin 0.5 <1.5 12/14/2017 [facility] Trough ug/ml 9:59 EDT [facility]ENTER LABORATORY SERVICES Type of Draw CATHETER, 12/14/2017 [facility] ANY 9:17 EDT [facility]ENTER LABORATORY SERVICES Specimen Anatomical Collection Method Collection Time Receive d Time (Source) Location / / Volume Laterality Blood specimen BLOOD SPECIMEN / 12/14/2017 9:17 2017 9:35 (specimen) Unknown EDT EDT Isabelle Garcia MD CHEMISTRY & BLOOD GAS ORDERA BLES Performing Organization Address [facility]/ZIP Code Phon e Number [facility] [address] [place] [address] SERVICES ECG REPORT - SCANNED (12/14/2017 8:32 EDT) Specimen (Source) Anatomical Collection Method Collection Time Re ceived Time Location / / Volume Laterality 12/14/2017 8:32 EDT Narrative This result has an attachment that is no t available. Scan 2 Planer Chain Offbearer PROCEDURE/MINOR SURGICAL ORD ERABLES MAGNESIUM (12/14/2017 6:10 EDT) athologist Signature Magnesium 1.9 1.7 - 2.8 12/14/2017 [facility] mg/dl 7:01 EDT [facility]ENTER LABORATORY SERVICES Specimen Anatomical Collection Method Collection Time Receive d Time (Source) Location / / Volume Laterality Blood specimen BLOOD SPECIMEN / 12/14/2017 6:10 2017 6:28 (specimen) Unknown EDT EDT Isabelle Garcia MD CHEMISTRY & BLOOD GAS ORDERA BLES Performing Organization Address City/[facility]/ZIP Code Phon e Number [facility] [address] [phone] SERVICES (ABNORMAL) HEMAGRAM (12/14/2017 6:10 EDT) P athologist Signature WBC 3.38 (L) 4.0 - 12.4 12/14/2017 [facility] K/count includes the [facility] 6:41 EDT [facility]ENTER LABORATORY SERVICES RBC 3.40 (L) 3.86 - 12/14/2017 [facility] 5.04 M/count includes the [facility] 6:41 EDT [facility]ENTER LABORATORY SERVICES Hemoglobin 8.1 (L) 11.6 - 12/14/2017 [facility] 15.2 gm/dl 6:41 EDT [facility]ENTER LABORATORY SERVICES HCT 27.1 (L) 34.9 - 12/14/2017 [facility] 44.4 % 6:41 EDT [facility]ENTER LABORATORY SERVICES MCV 80 (L) 81 - 98 fl 12/14/2017 [facility] 6:41 EDT [facility]ENTER LABORATORY SERVICES MCH 23.8 (L) 26.7 - 12/14/2017 [facility] 33.3 pg 6:41 T [facility]ENTER LABORATORY SERVICES Hypochromia 1+ 12/14/2017 [facility] 6:41 EDT [facility]ENTER LABORATORY SERVICES MCHC 29.9 (L) 32.1 - 12/14/2017 [facility] 35.9 gm/dl 6:41 EDT [facility]ENTER LABORATORY SERVICES RDW-CV 23.0 (H) <14.7 % 12/14/2017 [facility] 6:41 EDT [facility]ENTER LABORATORY SERVICES RDW-SD 66.0 (H) <50.4 fl 12/14/2017 [facility] 6:41 EDT [facility]ENTER LABORATORY SERVICES Anisocytosis 2+ 12/14/2017 [facility] 6:41 EDT [facility]ENTER LABORATORY SERVICES PLT 220 141 - 377 12/14/2017 [facility] K/count includes the [facility] 6:41 EDT [facility]ENTER LABORATORY SERVICES MPV 9.4 (L) 9.5 - 12.7 12/14/2017 [facility] fl 6:41 EDT [facility]ENTER LABORATORY SERVICES Specimen Anatomical Collection Method Collection Time Receive d Time (Source) Location / / Volume Laterality Blood specimen BLOOD SPECIMEN / 12/14/2017 6:10 2017 6:28 (specimen) Unknown EDT EDT Isabelle Garcia MD HEMATOLOGY & PF4 ORDERABLES Performing Organization Address City/State/ZIP Code Phon e Number [facility] [address] [place] [address] SERVICES ELECTROLYTES (12/14/2017 6:10 EDT) athologist Signature Sodium 140 136 - 145 12/14/2017 [facility] mEq/L 7:01 EDT [facility]ENTER LABORATORY SERVICES Potassium 4.3 3.5 - 5.0 12/14/2017 [facility] mEq/L 7:01 [facility] SERVICES Chloride 103 96 - 110 12/14/2017 [facility] mEq/L 7:01 [facility] SERVICES CO2 30 22 - 32 12/14/2017 [facility] mEq/L 7:01 [facility] SERVICES Specimen Anatomical Collection Method Collection Time Receive d Time (Source) Location / / Volume Laterality Blood specimen BLOOD SPECIMEN / 12/14/2017 6:10 2017 6:28 (specimen) Unknown EDT EDT Isabelle Garcia MD CHEMISTRY & BLOOD GAS ORDERA BLES Performing Organization Address City/State/ZIP Code Phon e Number [facility] [address] [phone] SERVICES CREATININE (12/14/2017 6:10 EDT) athologist Signature Creatinine 0.83 0.52 - 12/14/2017 [facility] 1.04 mg/dl 7:01 [facility] LAB[facility] SERVICES GFR, Calculated 96 >60 12/14/2017 [facility] ml/min/1.7 7:01 [facility] 3m2 LABORATORY SERVICES Comment: eGFR calculated using CKD-EPI equation f or non Americans. Multiply eGFR by 1.16 for Americans. Specimen Anatomical Collection Method Collection Time Receive d Time (Source) Location / / Volume Laterality Blood specimen BLOOD SPECIMEN / 12/14/2017 6:10 2017 6:28 (specimen) Unknown EDT EDT Isabelle Garcia MD CHEMISTRY & BLOOD GAS ORDERA BLES Performing Organization Address City/State/ZIP Code Phon e Number [facility] [address] [place] [address] SERVICES (ABNORMAL) BUN (12/14/2017 6:10 EDT) athologist Signature BUN 7 (L) 10 - 26 12/14/2017 [facility] mg/dl 7:01 [facility] SERVICES Specimen Anatomical Collection Method Collection Time Receive d Time (Source) Location / / Volume Laterality Blood specimen BLOOD SPECIMEN / 12/14/2017 6:10 2017 6:28 (specimen) Unknown EDT EDT Isabelle Garcia MD CHEMISTRY & BLOOD GAS ORDERA BLES Performing Organization Address City/State/ZIP Code Phon e Number [facility] [address] [place] [address] SERVICES (ABNORMAL) GENTAMICIN PEAK (12/13/2017 14:24 EDT) [facility] Method Time Signature Gentamicin Peak 2.0 (L) 5.0 - 12.0 12/13/2017 [facility] ug/ml 15:00 EDT [facility]ENTER LABORATORY SERVICES Type of Draw CATHETER 12/13/2017 [facility] 14:38 EDT [facility] LAB[facility]AT[facility] SERVICES Specimen Anatomical Collection Method Collection Time Receive d Time (Source) Location / / Volume Laterality BLOOD SPECIMEN / 12/13/2017 14:24 018 Unknown EDT 14:37 EDT Isabelle Garcia MD CHEMISTRY & BLOOD GAS ORDERA BLES Performing Organization Address City/[facility]/ZIP Code Phon e Number [facility] [address] [place] [address] SERVICES GENTAMICIN TROUGH (12/13/2017 12:57 EDT) [facility] Method Time Signature Gentamicin 0.7 <1.5 12/13/2017 [facility] Trough ug/ml 14:16 EDT [facility]ENTER LABORATORY SERVICES Type of Draw CATHETER, 12/13/2017 [facility] ANY 12:58 EDT [facility]ENTER LABORATORY SERVICES Specimen Anatomical Collection Method Collection Time Receive d Time (Source) Location / / Volume Laterality Blood specimen BLOOD SPECIMEN / 12/13/2017 12:57 12/13 (specimen) Unknown EDT 13:27 EDT Isabelle Garcia MD CHEMISTRY & BLOOD GAS ORDERA BLES Performing Organization Address City/[facility]/ZIP Code Phon e Number [facility] [address] [place] [address] SERVICES EKG 12-LEAD (12/13/2017 7:25 EDT) Specimen (Source) Anatomical Collection Method Collection Time Re ceived Time Location / / Volume Laterality 12/13/2017 7:25 EDT Narrative [facility] E[facility] - 12/16/2017 8:13 EDT ? [facility] ? Test Date: ?2017-12-13 Pat Name: ? ISH ORELLANA ? Department: ?? [place] [address] ? Room: ? ME524 Gender: ? Female ? 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 [id number] : ?1990 ? Requested By: AUDREY YOANA Order Number: [id number] ? Reading MD: ?? PETER BARON MD ? Measurements Intervals ?[place] ? Rate: ? 86 ? P: ?53 [place]: ? 185 ?QRS: ?45 QRSD: ? 95 [...] MD. Procedure Note Ajit Aguilar MD - 12/16/2017Formatt ing of this note might be different from the original. [facility] r Test Date: 2017-12-13 Pat Name: ISH ORELLANA Department: [facility] foster Molina Room: [facility] Gender: Female Mud Tank Operator: [id number] : 1990 Requested By: AUDREY NEAL Order Number: [id number] Reading MD: Christina AGUILAR MD Measurements Intervals [place] Rate: 86 P: 53 [place]: 185 QRS: 45 QRSD: 95 T: 15 QT: 386 QTc: 462 Interpretive Statements SINUS RHYTHM Automated Interpretation. Provider Inter pretation to follow. Compared to ECG 12/12/2017 07:57:42 No significant changes I reviewed the tracing and have either a greed or edited the findings in this report. Electronically Signed On 12-17-19 8:13:46 EDT by AJIT AGUILAR MD. Yoana Paul MD CARDIAC ECG ORDERABLES Performing Organization Address City/State/ZIP Code Phon e Number [facility] EKG GENTAMICIN [place]AK (12/12/2017 14:25 EDT) [facility] Method Time Signature Gentamicin Peak 6.2 5.0 - 12/12/2017 [facility] 12.0 15:16 EDT CENTER ug/ml LABORATORY SERVICES Type of Draw CATHETER, 12/12/2017 [facility] ANY 14:26 EDT CENTER LABORATORY SERVICES Specimen Anatomical Collection Method Collection Time Receive d Time (Source) Location / / Volume Laterality Blood specimen BLOOD SPECIMEN / 12/12/2017 14:25 12/12 (specimen) Unknown EDT 14:47 EDT Gerald Castro MD CHEMISTRY & BLOOD GAS ORDERA BLES Performing Organization Address City/[facility]/ZIP Code Phon e Number [facility] [address] [place] [address] SERVICES GENTAMICIN TROUGH (12/12/2017 12:24 EDT) [facility] Signature Gentamicin 1.2 <1.5 12/12/2017 [facility] Trough ug/ml 13:34 EDT [facility]ENTER LABORATORY SERVICES Type of Draw CATHETER, 12/12/2017 [facility] ANY 12:25 EDT [facility]ENTER LABORATORY SERVICES Specimen Anatomical Collection Method Collection Time Receive d Time (Source) Location / / Volume Laterality Blood specimen BLOOD SPECIMEN / 12/12/2017 12:24 12/12 (specimen) Unknown EDT 12:47 EDT Gerald Castro MD CHEMISTRY & BLOOD GAS ORDERA BLES Performing Organization Address [facility]/ZIP Code Phon e Number [facility] [address] [place] [address] SERVICES GLUCOSE, GLUCOMETER (12/12/2017 10:17 EDT) Analysis Performed At [facility] logist Time Signature Glucose, 87 70 - 100 12/12/2017 [facility] Fingerstick mg/dl 10:18 EDT CENTER LABORATORY SERVICES Credit Intern ID [id number] 12/12/2017 [facility] 10:18 EDT [facility]ENTER LABORATORY SERVICES Comment: Test Performed by Nursing Servi meghan Specimen Anatomical Collection Method Collection Time Receive d Time (Source) Location / / Volume Laterality BLOOD SPECIMEN / 12/12/2017 10:17 018 Unknown EDT 10:18 EDT Gerald Castro MD CHEMISTRY & BLOOD GAS ORDERA BLES Performing Organization Address City/[facility]/ZIP Code Phon e Number [facility] [address] [place] [address] SERVICES EKG 12-LEAD (12/12/2017 7:57 EDT) Specimen (Source) Anatomical Collection Method Collection Time Re ceived Time Location / / Volume Laterality 12/12/2017 7:57 EDT Narrative [facility] EKG - 12/14/2017 12:5 0 EDT ? [facility] ? Test Date: ?2017-12-12 Pat Name: ? ISH ORELLANA ? Department: ?? [place] [address] ? Room: ? ME524 Gender: ? Female ? 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 [id number] : ?1990 ? Requested By: UADREY NEAL Order Number: [id number] ? Reading MD: ?? GREG VIEIRA MD ? Measurements Intervals ?[place] ? Rate: ? 83 ? P: ?51 [place]: ? 207 ?QRS: ?88 QRSD: ? 104 ?T: ?21 QT: ? 399 ? QTc: ?470 ? Interpretive Statements SINUS RHYTHM .Compared to ECG 12/11/2017 07:08:11 No significant changes I reviewed the tracing and have either a greed or edited the findings in this report. Electronically Signed On 12-15-19 12:50:47 EDT by GREG VIEIRA MD. Procedure Note Greg Vieira MD - 12/14/2017Format ting of this note might be different from the original. [facility] Test Date: 2017-12-12 Pat Name: ISH ORELLANA Department: [place] [address] Room: [facility] Gender: Female Mud Tank Operator: [id number] : 1990 Requested By: AUDREY NEAL Order Number: [id number] Reading MD: Neli VIEIRA MD Measurements Intervals [place] Rate: 83 P: 51 [place]: 207 QRS: 88 QRSD: 104 T: 21 QT: 399 QTc: 470 Interpretive Statements SINUS RHYTHM .Compared to ECG 12/11/2017 07:08:11 No significant changes I reviewed the tracing and have either a greed or edited the findings in this report. Electronically Signed On 12-15-19 12:50:47 EDT by GREG VIEIRA MD. Yaona Paul MD CARDIAC ECG ORDERABLES Performing Organization Address City/State/ZIP Code Phon e Number [facility] EKG (ABNORMAL) HEMAGRAM (12/12/2017 6:19 EDT) athologist Signature WBC 3.72 (L) 4.0 - 12.4 12/12/2017 [facility] K/cmm 6:56 EDT [facility]ENTER LABORATORY SERVICES RBC 3.51 (L) 3.86 - 12/12/2017 [facility] 5.04 M/cmm 6:56 EDT [facility]ENTER LABORATORY SERVICES Hemoglobin 8.4 (L) 11.6 - 12/12/2017 [facility] 15.2 gm/dl 6:56 EDT [facility]ENTER LABORATORY SERVICES HCT 27.7 (L) 34.9 - 12/12/2017 [facility] 44.4 % 6:56 EDT [facility]ENTER LABORATORY SERVICES MCV 79 (L) 81 - 98 fl 12/12/2017 [facility] 6:56 EDT [facility]ENTER LABORATORY SERVICES MCH 23.9 (L) 26.7 - 12/12/2017 [facility] 33.3 pg 6:56 EDT [facility]ENTER LABORATORY SERVICES Hypochromia 1+ 12/12/2017 [facility] 6:56 EDT [facility]ENTER LABORATORY SERVICES MCHC 30.3 (L) 32.1 - 12/12/2017 [facility] 35.9 gm/dl 6:56 EDT [facility]ENTER LABORATORY SERVICES RDW-CV 23.7 (H) <14.7 % 12/12/2017 [facility] 6:56 EDT [facility]ENTER LABORATORY SERVICES RDW-SD 66.8 (H) <50.4 fl 12/12/2017 [facility] 6:56 EDT CENTER LABORATORY SERVICES Anisocytosis 2+ 12/12/2017 [facility] 6:56 EDT CENTER LABORATORY SERVICES PLT 197 141 - 377 12/12/2017 [facility] K/cmm 6:56 EDT [facility]ENTER LABORATORY SERVICES MPV 9.4 (L) 9.5 - 12.7 12/12/2017 [facility] fl 6:56 EDT [facility]ENTER LABORATORY SERVICES Specimen Anatomical Collection Method Collection Time Receive d Time (Source) Location / / Volume Laterality Blood specimen BLOOD SPECIMEN / 12/12/2017 6:19 2017 6:39 (specimen) Unknown EDT EDT Yoana Paul MD HEMATOLOGY & PF4 ORDERABLES Performing Organization Address City/State/ZIP Code Phon e Number [facility] [address] [place] [address] SERVICES MAGNESIUM (12/12/2017 6:19 EDT) P athologist Signature Magnesium 1.8 1.7 - 2.8 12/12/2017 [facility] mg/dl 7:08 EDT CENTER LABORATORY SERVICES Specimen Anatomical Collection Method Collection Time Receive d Time (Source) Location / / Volume Laterality Blood specimen BLOOD SPECIMEN / 12/12/2017 6:19 2017 6:39 (specimen) Unknown EDT EDT Yoana Paul MD CHEMISTRY & BLOOD GAS ORDERA BLES Performing Organization Address City/State/ZIP Code Phon e Number [facility] [address] [place] [phone] SERVICES CREATININE (12/12/2017 6:19 EDT) athologist Signature Creatinine 0.76 0.52 - 12/12/2017 [facility] 1.04 mg/dl 7:08 EDT CENTER LABORATORY SERVICES GFR, Calculated 107 >60 12/12/2017 [facility] ml/min/1.7 7:08 EDT CENTER 3m2 LABORATORY SERVICES Comment: eGFR calculated using CKD-EPI equation f or non Americans. Multiply eGFR by 1.16 for Americans. Specimen Anatomical Collection Method Collection Time Receive d Time (Source) Location / / Volume Laterality Blood specimen BLOOD SPECIMEN / 12/12/2017 6:19 2017 6:39 (specimen) Unknown EDT EDT Yoana Paul MD CHEMISTRY & BLOOD GAS ORDERA BLES Performing Organization Address City/[facility]/ZIP Code Phon e Number [facility] [address] [place] [address] SERVICES (ABNORMAL) BUN (12/12/2017 6:19 EDT) athologist Signature BUN 5 (L) 10 - 26 12/12/2017 [facility] mg/dl 7:08 EDT [facility]ENTER LABORATORY SERVICES Specimen Anatomical Collection Method Collection Time Receive d Time (Source) Location / / Volume Laterality Blood specimen BLOOD SPECIMEN / 12/12/2017 6:19 2017 6:39 (specimen) Unknown EDT EDT Yoana Paul MD CHEMISTRY & BLOOD GAS ORDERA BLES Performing Organization Address City/State/ZIP Code Phon e Number [facility] [address] [phone] SERVICES ELECTROLYTES (12/12/2017 6:19 EDT) athologist Signature Sodium 138 136 - 145 12/12/2017 [facility] mEq/L 7:08 EDT [facility]ENTER LABORATORY SERVICES Potassium 4.7 3.5 - 5.0 12/12/2017 [facility] mEq/L 7:08 EDT [facility]ENTER LABORATORY SERVICES Chloride 104 96 - 110 12/12/2017 [facility] mEq/L 7:08 EDT [facility]ENTER LABORATORY SERVICES CO2 30 22 - 32 12/12/2017 [facility] mEq/L 7:08 EDT [facility]ENTER LABORATORY SERVICES Specimen Anatomical Collection Method Collection Time Receive d Time (Source) Location / / Volume Laterality Blood specimen BLOOD SPECIMEN / 12/12/2017 6:19 2017 6:39 (specimen) Unknown EDT EDT Yoana Paul MD CHEMISTRY & BLOOD GAS ORDERA BLES Performing Organization Address City/[facility] Phon e Number [facility] [address] [place] [phone] SERVICES BACTERIAL CULTURE, BLOOD (12/11/2017 11:37 EDT) athologist Signature Result No growth 12/16/2017 [facility] 6:47 EDT [facility]ENTER LABORATORY SERVICES Specimen Anatomical Collection Method Collection Time Receive d Time (Source) Location / / Volume Laterality Blood specimen BLOOD SPECIMEN / 12/11/2017 11:37 12/11 (specimen) Unknown EDT 12:17 EDT Comment: Right~Hand~Pediatric bottle rec eived~Volume of blood collected may not be adequate for detection of bacteremia/sep ticemia. Estrada Mccarthy MD MICROBIOLOGY - GENERAL ORDER CURTIS Performing Organization Address [facility] Code Phon e Number [facility] [address] [place] [address] SERVICES BACTERIAL CULTURE, BLOOD (12/11/2017 11:37 EDT) athologist Signature Result No growth 12/16/2017 [facility] 6:47 T [facility]ENTER LABORATORY SERVICES Specimen Anatomical Collection Method Collection Time Receive d Time (Source) Location / / Volume Laterality Blood specimen BLOOD SPECIMEN / 12/11/2017 11:37 12/11 (specimen) Unknown EDT 12:17 EDT Comment: Left~Antecubital Estrada Mccarthy MD MICROBIOLOGY - GENERAL ORDER CURTIS Performing Organization Address [facility]/ZIP Code Phon e Number [facility] [address] [place] [address] SERVICES INSERT PICC LINE (12/11/2017 9:44 EDT) Kandi Carrero RN - 12/11/2017 9:44 EDT Kandi Lawrence RN ? 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 KANDI LAWRENCE RN ?? 12/11/2017 ?? 9:4 4 Rosy Adrian MD IV THERAPY ORDERABLES EKG 12-LEAD (12/11/2017 7:08 EDT) Specimen (Source) Anatomical Collection Method Collection Time Re ceived Time Location / / Volume Laterality 12/11/2017 7:08 EDT Narrative [facility] - 01/04/2018 13:0 5 EDT ? [facility] ? Test Date: ?2017-12-11 Pat Name: ? ISH ORELLANA ? Department: ?? [place] [address] ? Room: ? ME524 Gender: ? Female ? 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 Requested By: AUDREY NEAL Order Number: [id number] ? Reading MD: ?? LEELA MORA MD ? Measurements Intervals ?[place] ? Rate: ? 75 ? P: ?38 [place]: ? 203 ?QRS: ?34 QRSD: ? 97 ? T: ?6 QT: ? 431 ? QTc: ?483 ? Interpretive Statements SINUS RHYTHM Compared to ECG 12/10/2017 07:51:00 No significant changes I reviewed the tracing and have either a greed or edited the findings in this report. Electronically Signed On 13:05:57 EDT by LEELA MORA MD. Procedure Note Leela Mora Jr., MD - 01/04/2018For matting of this note might be different from the original. [facility] Test Date: 2017-12-11 Pat Name: ISH ORELLANA Department: [place] [address] Room: 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 Electronically Signed On 13:05:57 EDT by LEELA MORA MD. Yoana Paul MD CARDIAC ECG ORDERABLES Performing Organization Address City/State/ZIP Code Phon e Number [facility] EKG (ABNORMAL) HEMAGRAM (12/11/2017 6:20 EDT) P athologist Signature WBC 4.90 4.0 - 12.4 12/11/2017 [facility] K/count includes the [facility] 6:39 EDT CENTER LABORATORY SERVICES RBC 3.85 (L) 3.86 - 12/11/2017 [facility] 5.04 M/cm 6:39 EDT [facility]ENTER LABORATORY SERVICES Hemoglobin 9.0 (L) 11.6 - 12/11/2017 [facility] 15.2 gm/dl 6:39 EDT [facility]ENTER LAB[facility]ATORY SERVICES HCT 29.2 (L) 34.9 - 12/11/2017 [facility] 44.4 % 6:39 EDT [facility]ENTER LABORATORY SERVICES MCV 76 (L) 81 - 98 fl 12/11/2017 [facility] 6:39 EDT [facility]ENTER LAB[facility]ATORY SERVICES MCH 23.4 (L) 26.7 - 12/11/2017 [facility] 33.3 pg 6:39 EDT [facility]ENTER LAB[facility]ATORY SERVICES Hypochromia 1+ 12/11/2017 [facility] 6:39 EDT [facility]ENTER LABORATORY SERVICES MCHC 30.8 (L) 32.1 - 12/11/2017 [facility] 35.9 gm/dl 6:39 EDT [facility]ENTER LABORATORY SERVICES RDW-CV 23.9 (H) <14.7 % 12/11/2017 [facility] 6:39 EDT [facility]ENTER LABORATORY SERVICES RDW-SD 63.8 (H) <50.4 fl 12/11/2017 [facility] 6:39 EDT [facility]ENTER LABORATORY SERVICES Anisocytosis 2+ 12/11/2017 [facility] 6:39 EDT [facility]ENTER LABORATORY SERVICES PLT 193 141 - 377 12/11/2017 [facility] K/count includes the [facility] 6:39 EDT [facility]ENTER LABORATORY SERVICES MPV 9.8 9.5 - 12.7 12/11/2017 [facility] fl 6:39 EDT CENTER LABORATORY SERVICES Specimen Anatomical Collection Method Collection Time Receive d Time (Source) Location / / Volume Laterality Blood specimen BLOOD SPECIMEN / 12/11/2017 6:20 2017 6:27 (specimen) Unknown EDT EDT Yoana Paul MD HEMATOLOGY & PF4 ORDERABLES Performing Organization Address City/State/ZIP Code Phon e Number [facility] [address] [place] [address] SERVICES MAGNESIUM (12/11/2017 6:20 EDT) athologist Signature Magnesium 2.0 1.7 - 2.8 12/11/2017 [facility] mg/dl 6:56 EDT [facility]ENTER LAB[facility]ORY SERVICES Specimen Anatomical Collection Method Collection Time Receive d Time (Source) Location / / Volume Laterality Blood specimen BLOOD SPECIMEN / 12/11/2017 6:20 2017 6:27 (specimen) Unknown EDT EDT Yoana Paul MD CHEMISTRY & BLOOD GAS ORDERA BLES Performing Organization Address City/[facility]/ZIP Code Phon e Number [facility] [address] [place] [phone] SERVICES CREATININE (12/11/2017 6:20 EDT) athologist Signature Creatinine 0.62 0.52 - 12/11/2017 [facility] 1.04 mg/dl 6:56 EDT [facility]ENTER LABORATORY SERVICES GFR, Calculated 123 >60 12/11/2017 [facility] ml/min/1.7 6:56 EDT CENTER 3m2 LABORATORY SERVICES Comment: eGFR calculated using CKD-EPI equation f or non Americans. Multiply eGFR by 1.16 for Americans. Specimen Anatomical Collection Method Collection Time Receive d Time (Source) Location / / Volume Laterality Blood specimen BLOOD SPECIMEN / 12/11/2017 6:20 2017 6:27 (specimen) Unknown EDT EDT Yoana Paul MD CHEMISTRY & BLOOD GAS ORDERA BLES Performing Organization Address City/State/ZIP Code Phon e Number [facility] [address] [place] [address] SERVICES (ABNORMAL) BUN (12/11/2017 6:20 EDT) athologist Signature BUN 6 (L) 10 - 26 12/11/2017 [facility] mg/dl 6:56 EDT [facility]ENTER LAB[facility]ORY SERVICES Specimen Anatomical Collection Method Collection Time Receive d Time (Source) Location / / Volume Laterality Blood specimen BLOOD SPECIMEN / 12/11/2017 6:20 2017 6:27 (specimen) Unknown EDT EDT Yoana Paul MD CHEMISTRY & BLOOD GAS ORDERA BLES Performing Organization Address City/[facility]/ZIP Code Phon e Number [facility] [address] [place] [address] SERVICES ELECTROLYTES (12/11/2017 6:20 EDT) athologist Signature Sodium 140 136 - 145 12/11/2017 [facility] mEq/L 6:56 EDT [facility]ENTER LAB[facility]ORY SERVICES Potassium 4.8 3.5 - 5.0 12/11/2017 [facility] mEq/L 6:56 EDT [facility]ENTER LABORATORY SERVICES Chloride 107 96 - 110 12/11/2017 [facility] mEq/L 6:56 EDT [facility]ENTER LABORATORY SERVICES CO2 28 22 - 32 12/11/2017 [facility] mEq/L 6:56 EDT [facility]ENTER LABORATORY SERVICES Specimen Anatomical Collection Method Collection Time Receive d Time (Source) Location / / Volume Laterality Blood specimen BLOOD SPECIMEN / 12/11/2017 6:20 2017 6:27 (specimen) Unknown EDT EDT Yoana Paul MD CHEMISTRY & BLOOD GAS ORDERA BLES Performing Organization Address City/State/ZIP Code Phon e Number [facility] [address] [place] [address] SERVICES EKG 12-LEAD (12/10/2017 7:51 EDT) Specimen (Source) Anatomical Collection Method Collection Time Re ceived Time Location / / Volume Laterality 12/10/2017 7:51 EDT Narrative [facility] - 12/17/2017 14:1 4 EDT ? [facility] ? Test Date: ?2017-12-10 Pat Name: ? ISH ORELLANA ? Department: ?? [place] [address] ? Room: ? ME524 Gender: ? Female ? 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 [id number] : ?1990 ? Requested By: AUDREY NEAL Order Number: [id number] ? Reading MD: ?? ANIA RUBEN MD ? Measurements Intervals ?[place] ? Rate: ? 80 ? P: ?50 [place]: ? 197 ?QRS: ?39 QRSD: ? 96 [...] MD. Procedure Note Ania Miranda MD - 12/17/2017Form atting of this note might be different from the original. [facility] Test Date: 2017-12-10 Pat Name: ISH ORELLANA Department: [place] [address] Room: 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 Electronically Signed On 12-18-19 14:14:36 EDT by ANIA MIRANDA MD. Yoana Paul MD CARDIAC ECG ORDERABLES Performing Organization Address City/State/ZIP Code Phon e Number [facility] E[facility] (ABNORMAL) HEMAGRAM (12/10/2017 7:19 EDT) P athologist Signature WBC 4.29 4.0 - 12.4 12/10/2017 [facility] K/cmm 7:54 EDT [facility]ENTER LABORATORY SERVICES RBC 3.83 (L) 3.86 - 12/10/2017 [facility] 5.04 M/cmm 7:54 EDT [facility]ENTER LABORATORY SERVICES Hemoglobin 9.0 (L) 11.6 - 12/10/2017 [facility] 15.2 gm/dl 7:54 EDT [facility]ENTER LABORATORY SERVICES HCT 29.4 (L) 34.9 - 12/10/2017 [facility] 44.4 % 7:54 EDT [facility]ENTER LABORATORY SERVICES MCV 77 (L) 81 - 98 fl 12/10/2017 [facility] 7:54 EDT [facility]ENTER LABORATORY SERVICES MCH 23.5 (L) 26.7 - 12/10/2017 [facility] 33.3 pg 7:54 EDT [facility]ENTER LABORATORY SERVICES Hypochromia 1+ 12/10/2017 [facility] 7:54 EDT [facility]ENTER LAB[facility]ATORY SERVICES MCHC 30.6 (L) 32.1 - 12/10/2017 [facility] 35.9 gm/dl 7:54 EDT [facility]ENTER LAB[facility]ATORY SERVICES RDW-CV 23.9 (H) <14.7 % 12/10/2017 [facility] 7:54 EDT [facility]ENTER LABORATORY SERVICES RDW-SD 63.9 (H) <50.4 fl 12/10/2017 [facility] 7:54 EDT [facility]ENTER LABORATORY SERVICES Anisocytosis 2+ 12/10/2017 [facility] 7:54 EDT CENTER LABORATORY SERVICES PLT 161 141 - 377 12/10/2017 [facility] K/cmm 7:54 EDT [facility]ENTER LABORATORY SERVICES MPV 10.4 9.5 - 12.7 12/10/2017 [facility] fl 7:54 EDT [facility]ENTER LABORATORY SERVICES Specimen Anatomical Collection Method Collection Time Receive d Time (Source) Location / / Volume Laterality Blood specimen BLOOD SPECIMEN / 12/10/2017 7:19 2017 7:41 (specimen) Unknown EDT EDT Yoana Paul MD HEMATOLOGY & PF4 ORDERABLES Performing Organization Address City/State/ZIP Code Phon e Number [facility] [address] [place] [address] SERVICES MAGNESIUM (12/10/2017 7:19 EDT) P athologist Signature Magnesium 1.9 1.7 - 2.8 12/10/2017 [facility] mg/dl 8:04 EDT [facility]ENTER LAB[facility]ATORY SERVICES Specimen Anatomical Collection Method Collection Time Receive d Time (Source) Location / / Volume Laterality Blood specimen BLOOD SPECIMEN / 12/10/2017 7:19 2017 7:41 (specimen) Unknown EDT EDT Yoana Paul MD CHEMISTRY & BLOOD GAS ORDERA BLES Performing Organization Address City/State/ZIP Code Phon e Number [facility] [address] [place] [phone] SERVICES CREATININE (12/10/2017 7:19 EDT) P athologist Signature Creatinine 0.61 0.52 - 12/10/2017 [facility] 1.04 mg/dl 8:04 EDT [facility]ENTER LABORATORY SERVICES GFR, Calculated 124 >60 12/10/2017 [facility] ml/min/1.7 8:04 EDT CENTER 3m2 LABORATORY SERVICES Comment: eGFR calculated using CKD-EPI equation f or non Americans. Multiply eGFR by 1.16 for Americans. Specimen Anatomical Collection Method Collection Time Receive d Time (Source) Location / / Volume Laterality Blood specimen BLOOD SPECIMEN / 12/10/2017 7:19 2017 7:41 (specimen) Unknown EDT EDT Yoana Paul MD CHEMISTRY & BLOOD GAS ORDERA BLES Performing Organization Address City/State/ZIP Code Phon e Number [facility] [address] [place] [address] SERVICES (ABNORMAL) BUN (12/10/2017 7:19 EDT) athologist Signature BUN 8 (L) 10 - 26 12/10/2017 [facility] mg/dl 8:04 EDT [facility] LAB[facility] SERVICES Specimen Anatomical Collection Method Collection Time Receive d Time (Source) Location / / Volume Laterality Blood specimen BLOOD SPECIMEN / 12/10/2017 7:19 2017 7:41 (specimen) Unknown EDT EDT Yoana Paul MD CHEMISTRY & BLOOD GAS ORDERA BLES Performing Organization Address City/State/ZIP Code Phon e Number [facility] [address] [place] [address] SERVICES ELECTROLYTES (12/10/2017 7:19 EDT) athologist Signature Sodium 140 136 - 145 12/10/2017 [facility] mEq/L 8:04 EDT [facility]ENTER LAB[facility] SERVICES Potassium 4.7 3.5 - 5.0 12/10/2017 [facility] mEq/L 8:04 EDT [facility] LAB[facility] SERVICES Chloride 109 96 - 110 12/10/2017 [facility] mEq/L 8:04 EDT [facility]ENTER LAB[facility] SERVICES CO2 26 22 - 32 12/10/2017 [facility] mEq/L 8:04 EDT [facility] SERVICES Specimen Anatomical Collection Method Collection Time Receive d Time (Source) Location / / Volume Laterality Blood specimen BLOOD SPECIMEN / 12/10/2017 7:19 2017 7:41 (specimen) Unknown EDT EDT Yoana Paul MD CHEMISTRY & BLOOD GAS ORDERA BLES Performing Organization Address City/State/ZIP Code Phon e Number [facility] [address] [place] [address] SERVICES ECG REPORT - SCANNED (12/09/2017 13:56 EDT) Specimen (Source) Anatomical Collection Method Collection Time Re ceived Time Location / / Volume Laterality 12/09/2017 13:56 EDT Narrative This result has an attachment that is no t available. Scan 2 Planer Chain Offbearer PROCEDURE/MINOR SURGICAL ORD ERABLES EKG 12-LEAD (12/09/2017 10:24 EDT) Specimen (Source) Anatomical Collection Method Collection Time Re ceived Time Location / / Volume Laterality 12/09/2017 10:24 EDT Narrative [facility] E[facility] - 12/09/2017 13:5 0 EDT ? [facility] ? Test Date: ?2017-12-09 Pat Name: ? ISH ORELLAAN ? Department: ?? [place] [address] ? Room: ? ME524 Gender: ? Female ? 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 [id number] : ?1990 ? Requested By: AUDREY NEAL Order Number: [id number] ? Darlene INGRAM: ?? GAUDENCIO ATKINS MD ? Measurements Intervals ?[place] ? Rate: ? 89 ? P: ?32 [place]: ? 201 ?QRS: ?38 QRSD: ? 96 [...] by GAUDENCIO ATKINS MD. Procedure Note Gaudencio Atknis MD - 12/09/2017Formatti ng of this note might be different from the original. [facility] r Test Date: 2017-12-09 Pat Name: ISH ORELLANA Department: [place] [address] Room: 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 Yoana Paul MD CARDIAC ECG ORDERABLES Performing Organization Address City/State/ZIP Code Phon e Number [facility] EKG (ABNORMAL) BACTERIAL CULTURE, BLOOD (12/09/2017 10:23 EDT) [facility] Method Time Signature Result ENTEROCOCCUS FAECALIS 12/13/2017 [facility] ICAL Isolated in one bottle. First detected at: 8:22 EDT CENTER 42 hours. LABORATORY Volume of blood collected ma y not be adequate for detection of bacteremia/septicemia. SERVICES (A) Result 12/13/2017 [facility] 8:22 T CENTER LABORATORY SERVICES Result Results called to client and client read back results. 12/13/2017 [facility] TO ILA SHAJI PAGER [phone] 12/11/17 8:22 EDT CENTER LABORATORY SERVICES Specimen Anatomical Collection Method Collection Time Receive d Time (Source) Location / / Volume Laterality Blood specimen BLOOD SPECIMEN / 12/09/2017 10:23 12/09 (specimen) Unknown EDT 11:41 EDT Comment: Left~Hand~Pediatric bottle rece ived~Volume of blood collected may not be adequate for detection of bacteremia/sep ticemia.~Total volume of blood collected:~2 ml Organism Antibiotic Method Susceptibility Enterococcus faecalis isolated [...] not be adequate for detection of bacteremia/septicemia. Yoana Paul MD MICROBIOLOGY - GENERAL ORDER CURTIS Performing Organization Address City/[facility]/ZIP Code Phon e Number [facility] [address] [place] [address] SERVICES BACTERIAL CULTURE, BLOOD (12/09/2017 10:23 EDT) athologist Signature Result No growth 12/14/2017 [facility] 7:12 EDT CENTER LABORATORY SERVICES Specimen Anatomical Collection Method Collection Time Receive d Time (Source) Location / / Volume Laterality Blood specimen BLOOD SPECIMEN / 12/09/2017 10:23 12/09 (specimen) Unknown EDT 11:37 EDT Comment: Right~BICEP Yoana Paul MD MICROBIOLOGY - GENERAL ORDER CURTIS Performing Organization Address [facility]/ZIP Code Phon e Number [facility] [address] [place] [address] SERVICES VANCOMYCIN TROUGH (12/09/2017 10:12 EDT) athologist Signature Vancomycin 10.9 10.0 - 12/09/2017 [facility] Trough 20.0 ug/ml 11:14 EDT CENTER LABORATORY SERVICES Comment: Vancomycin Trough: ??15.0-20.0 ug/mL [for Staphylococcus aureus bacteremia, endocarditis, meningitis, osteomyelitis, pneumonia.] Type of Draw VENIPUNCTURE/HEELSTICK 12/09/2017 10: 03 [facility] (PREFERRED) EDT LABORATORY SERVICES Specimen Anatomical Collection Method Collection Time Receive d Time (Source) Location / / Volume Laterality Blood specimen BLOOD SPECIMEN / 12/09/2017 10:12 12/09 (specimen) Unknown EDT 10:18 EDT Gerald Castro MD CHEMISTRY & BLOOD GAS ORDERA BLES Performing Organization Address [facility]/ZIP Code Phon e Number [facility] [address] [place] [address] SERVICES HOLD BLUE TOP (12/09/2017 9:50 EDT) [facility] Method Time Signature Hold Blue Top Sample for 12/09/2017 [facility] coagulation 10:26 EDT CENTER will be LABORATORY discarded after SERVICES 4 hours Specimen Anatomical Collection Method Collection Time Receive d Time (Source) Location / / Volume Laterality Blood specimen BLOOD SPECIMEN / 12/09/2017 9:50 2017 (specimen) Unknown EDT 10:17 EDT Yoana Paul MD LAB INFO SERVICE AND SUPPORT & PHONE RESULT Performing Organization Address City/State/ZIP Code Phon e Number [facility] [address] [place] [address] SERVICES HIV 1 RNA QUANTITATION (12/09/2017 9:50 EDT) [facility] Signature HIV 1 RNA Undetected Undetected 12/10/2017 [facility] Quant copies/mL 10:47 EDT [facility]ENTER LABORATORY SERVICES Comment: Reference Range: ??Undetected The quantification range of this assay i s 20 to 10,000,000 copies/mL Testing was performed by the [employer]et TaqMan HIV-1 Test Versio n 2.0 ([employer] Specimen Anatomical Collection Method Collection Time Receive d Time (Source) Location / / Volume Laterality BLOOD SPECIMEN / 12/09/2017 9:50 12/10/19 18 Unknown EDT 10:17 EDT Yoana Paul MD CHEMISTRY & BLOOD GAS ORDERA BLES Performing Organization Address City/[facility]/ZIP Code Phon e Number [facility] [address] [place] [address] SERVICES INPATIENT ADD-ON (12/09/2017 9:15 EDT) [facility] Signature Tests to be DIFFERENTIAL ON 12/09/2017 [facility] added HEMAGRAM 9:13 [place] [id number] 12/09/2017 [facility] problems 10:28 EDT [facility]ENTER LABORATORY SERVICES DIFF 12/09/2017 [facility] number 10:28 EDT [facility]ENTER LABORATORY SERVICES Specimen Anatomical Collection Method Collection Time Receive d Time (Source) Location / / Volume Laterality OTHER / Unknown 12/09/2017 9:15 201 8 EDT 10:28 EDT Yoana Paul MD HEMATOLOGY & PF4 ORDERABLES Performing Organization Address City/[facility]/ZIP Code Phon e Number [facility] [address] [place] [address] SERVICES DIFFERENTIAL (12/09/2017 7:13 EDT) [facility] Method Time Signature Neutrophils 70.0 % 12/09/2017 [facility] 14:04 EDT CENTER LABORATORY SERVICES Bands 1.0 % 12/09/2017 [facility] 14:04 EDT CENTER LABORATORY SERVICES Lymphocytes 25.0 % 12/09/2017 [facility] 14:04 EDT CENTER LABORATORY SERVICES Monocytes 3.0 % 12/09/2017 [facility] 14:04 EDT [facility]ENTER LABORATORY SERVICES Eosinophils 1.0 % 12/09/2017 [facility] 14:04 EDT CENTER LABORATORY SERVICES ABS Neutrophils 3.11 2.20 - 12/09/2017 [facility] 8.85 14:04 EDT CENTER K/count includes the [facility] LABORATORY SERVICES ABS Bands 0.04 K/m 12/09/2017 [facility] 14:04 ED CENTER LABORATORY SERVICES ABS Lymphs 1.11 1.09 - 12/09/2017 [facility] 3.30 14:04 EDT CENTER /count includes the [facility] LABORATORY SERVICES ABS Monocytes 0.13 0.1 - 0.8 12/09/2017 [facility] K/count includes the [facility] 14:04 EDT CENTER LABORATORY SERVICES ABS Eosinophils 0.04 0.03 - 12/09/2017 [facility] 0.61 14:04 EDT CENTER /count includes the [facility] LABORATORY SERVICES Differential NRBC seen 12/09/2017 [facility] Comment on scan 14:04 [facility] LABORATORY SERVICES Comment: Reviewed by Dr. Gil Vela Target Cells 3+ 12/09/2017 14:04 EDT [facility] LABORATORY SERVICES Toxic Granulation Present 12/09/2017 14:04 EDT [facility] LABORATORY SERVICES Vacuolization Present 12/09/2017 14:[address] [facility] LABORATORY SERVICES Type of Diff: Manual 12/09/2017 14:[address] [facility] LAB[facility]ATORY SERVICES Specimen Anatomical Collection Method Collection Time Receive d Time (Source) Location / / Volume Laterality BLOOD SPECIMEN / 12/09/2017 7:13 12/10/19 18 7:23 Unknown EDT EDT Yoana Paul MD HEMATOLOGY & PF4 ORDERABLES Performing Organization Address City/State/ZIP Code Phon e Number [facility] [address] [place] [address] SERVICES KINDRA DIFF COMMENT (12/09/2017 7:13 EDT) Component Value Ref Test Analysis Performed At Patholo gist Range Method Time Signature Differential The RBC findings are suggest shante of iron deficiency. Correlation with clinical and other 12/09/2017 [facility] Comment laboratory data is advised. 9:22 EDT [facility]AT[facility] SERVICES Specimen Anatomical Collection Method Collection Time Receive d Time (Source) Location / / Volume Laterality BLOOD SPECIMEN / 12/09/2017 7:13 12/10/19 18 7:23 Unknown EDT EDT Yoana Paul MD HEMATOLOGY & PF4 ORDERABLES Performing Organization Address City/State/ZIP Code Phon e Number [facility] [address] [place] [address] SERVICES (ABNORMAL) HEMAGRAM (12/09/2017 7:13 EDT) P athologist Signature WBC 4.43 4.0 - 12.4 12/09/2017 [facility] K/cmm 8:12 T [place] [facility] SERVICES RBC 3.66 (L) 3.86 - 12/09/2017 [facility] 5.04 /count includes the [facility] 7:35 [facility] SERVICES Hemoglobin 8.7 (L) 11.6 - 12/09/2017 [facility] 15.2 gm/dl 7:35 [facility] SERVICES HCT 27.0 (L) 34.9 - 12/09/2017 [facility] 44.4 % 7:35 [facility] SERVICES MCV 74 (L) 81 - 98 fl 12/09/2017 [facility] 9:22 [facility] SERVICES Comment: Rev'd by Pathologist MCH 23.8 (L) 26.7 - 33.3 pg 12/09/2017 7:[address] [facility] SERVICES Hypochromia 1+ 12/09/2017 7:35 EDT [facility] SERVICES MCHC 32.2 32.1 - 35.9 12/09/2017 7:35 T [facility] gm/dl LABORATORY SERVICES RDW-CV 23.7 (H) <14.7 % 12/09/2017 7:35 EDT [facility] SERVICES RDW-SD 59.7 (H) <50.4 fl 12/09/2017 7:35 T [facility] SERVICES Anisocytosis 2+ 12/09/2017 7:35 EDT [facility]ORATORY SERVICES PLT 172 141 - 377 12/09/2017 8:12 EDT [facility] K/cmm LABORATORY SERVICES MPV Not Available 9.5 - 12.7 fl 12/09/2017 8:12 EDT [facility] SERVICES Specimen Anatomical Collection Method Collection Time Receive d Time (Source) Location / / Volume Laterality Blood specimen BLOOD SPECIMEN / 12/09/2017 7:13 2017 7:23 (specimen) Unknown EDT EDT Yoana Paul MD HEMATOLOGY & PF4 ORDERABLES Performing Organization Address City/State/ZIP Code Phon e Number [facility] [address] [place] [address] SERVICES MAGNESIUM (12/09/2017 7:13 EDT) athologist Signature Magnesium 1.8 1.7 - 2.8 12/09/2017 [facility] mg/dl 7:50 EDT [facility]ENTER LAB[facility]ATORY SERVICES Specimen Anatomical Collection Method Collection Time Receive d Time (Source) Location / / Volume Laterality Blood specimen BLOOD SPECIMEN / 12/09/2017 7:13 2017 7:23 (specimen) Unknown EDT EDT Yoana Paul MD CHEMISTRY & BLOOD GAS ORDERA BLES Performing Organization Address City/[facility]/ZIP Code Phon e Number [facility] [address] [place] [address] SERVICES CREATININE (12/09/2017 7:13 EDT) athologist Signature Creatinine 0.67 0.52 - 12/09/2017 [facility] 1.04 mg/dl 7:50 EDT [facility]ENTER LABORATORY SERVICES GFR, Calculated 120 >60 12/09/2017 [facility] ml/min/1.7 7:50 EDT CENTER 3m2 LABORATORY SERVICES Comment: eGFR calculated using CKD-EPI equation f or non Americans. Multiply eGFR by 1.16 for Americans. Specimen Anatomical Collection Method Collection Time Receive d Time (Source) Location / / Volume Laterality Blood specimen BLOOD SPECIMEN / 12/09/2017 7:13 2017 7:23 (specimen) Unknown EDT EDT Yoana Paul MD CHEMISTRY & BLOOD GAS ORDERA BLES Performing Organization Address City/State/ZIP Code Phon e Number [facility] [address] [place] [address] SERVICES (ABNORMAL) BUN (12/09/2017 7:13 EDT) athologist Signature BUN 7 (L) 10 - 26 12/09/2017 [facility] mg/dl 7:50 EDT [facility] SERVICES Specimen Anatomical Collection Method Collection Time Receive d Time (Source) Location / / Volume Laterality Blood specimen BLOOD SPECIMEN / 12/09/2017 7:13 2017 7:23 (specimen) Unknown EDT EDT Yoana Paul MD CHEMISTRY & BLOOD GAS ORDERA BLES Performing Organization Address City/State/ZIP Code Phon e Number [facility] [address] [place] [address] SERVICES (ABNORMAL) ELECTROLYTES (12/09/2017 7:13 EDT) athologist Signature Sodium 135 (L) 136 - 145 12/09/2017 [facility] mEq/L 7:50 EDT [facility] LAB[facility] SERVICES Potassium 4.6 3.5 - 5.0 12/09/2017 [facility] mEq/L 7:50 EDT [facility] SERVICES Chloride 105 96 - 110 12/09/2017 [facility] mEq/L 7:50 EDT [facility] SERVICES CO2 25 22 - 32 12/09/2017 [facility] mEq/L 7:50 EDT [facility] SERVICES Specimen Anatomical Collection Method Collection Time Receive d Time (Source) Location / / Volume Laterality Blood specimen BLOOD SPECIMEN / 12/09/2017 7:13 2017 7:23 (specimen) Unknown EDT EDT Yoana Paul MD CHEMISTRY & BLOOD GAS ORDERA BLES Performing Organization Address City/State/ZIP Code Phon e Number [facility] [address] [place] [phone] SERVICES IMMUNODEFICIENCY PANEL (12/09/2017 7:13 EDT) athologist Signature CD3 74 62 - 87 % 12/09/2017 [facility] 15:10 EDT [facility] LAB[facility] SERVICES CD4 39 35 - 63 % 12/09/2017 [facility] 15:10 EDT [facility] LAB[facility] SERVICES CD8 31 10 - 35 % 12/09/2017 [facility] 15:10 EDT [facility] SERVICES Absolute CD4 431 329 - 1,427 12/09/2017 [facility] cells/uL 15:10 EDT [facility] LAB[facility]ATORY SERVICES Comment: The absolute CD4 count was calculated us ing the manual differential Reviewed by Dr. Gil Vela Specimen Anatomical Collection Method Collection Time Receive d Time (Source) Location / / Volume Laterality BLOOD SPECIMEN / 12/09/2017 7:13 12/10/19 18 7:23 Unknown EDT EDT Yoana Paul MD IMMUNOLOGY AND SEROLOGY ALKA DURAND Performing Organization Address City/[facility]/ZIP Code Phon e Number [facility] [address] [place] [address] SERVICES VANCOMYCIN TROUGH (12/08/2017 20:49 EDT) athologist Signature Vancomycin 12.8 10.0 - 12/08/2017 [facility] Trough 20.0 ug/ml 21:18 EDT [facility]ENTER [facility] SERVICES Comment: Vancomycin Trough: ??15.0-20.0 ug/mL [for Staphylococcus aureus bacteremia, endocarditis, meningitis, osteomyelitis, pneumonia.] Type of Draw VENIPUNCTURE/HEELSTICK 12/08/2017 20: 40 [facility] ([facility]ERR[facility] EDT LABORATORY SERVICES Specimen Anatomical Collection Method Collection Time Receive d Time (Source) Location / / Volume Laterality Blood specimen BLOOD SPECIMEN / 12/08/2017 20:49 12/08 (specimen) Unknown EDT 20:55 EDT Gerald Castro MD CHEMISTRY & BLOOD GAS ORDERA BLES Performing Organization Address City/[facility]/ZIP Code Phon e Number [facility] [address] [place] [phone] SERVICES INPATIENT ADD-ON (12/08/2017 18:35 EDT) [facility] gist Method Time Signature Tests to be VANCOMYCIN 12/08/2017 [facility] added RANDOM WITH AM 18:31 EDT CENTER LAB[place] [id number] 12/08/2017 [facility] problems 19:07 EDT [facility]ENTER LABORATORY SERVICES 12/08/2017 [facility] number 19:07 T [facility] LAB[facility]ORY SERVICES Specimen Anatomical Collection Method Collection Time Receive d Time (Source) Location / / Volume Laterality OTHER / Unknown 12/08/2017 18:35 12/09/19 18 EDT 19:06 EDT Gerald Castro MD HEMATOLOGY & PF4 ORDERABLES Performing Organization Address City/State/ZIP Code Phon e Number [facility] [address] [place] [address] SERVICES INPATIENT ADD-ON (12/08/2017 16:40 EDT) Component Value Ref Test Analysis Performed At [facility] Range Method Time Signature Tests to be HIV VIRAL LOAD AND 12/08/2017 [facility]ET[place] added IMMUNODEFICIENCY 16:36 EDT CENTER PANEL TO LABORATORY YESTERDAY'S [place] [id number] 12/08/2017 [facility] problems 17:00 EDT [facility]ENTER LABORATORY SERVICES 12/08/2017 [facility] number 17:00 EDT [facility] LAB[facility]ORY SERVICES Specimen Anatomical Collection Method Collection Time Receive d Time (Source) Location / / Volume Laterality OTHER / Unknown 12/08/2017 16:40 12/09/19 18 EDT 16:56 EDT Estrada Mccarthy MD HEMATOLOGY & PF4 ORDERABLES Performing Organization Address City/[facility]/ZIP Code Phon e Number [facility] [address] [place] [address] SERVICES (ABNORMAL) VANCOMYCIN, RANDOM (12/08/2017 5:58 EDT) [facility] Method Time Signature Vancomycin 49.0 (HH) ug/ml 12/08/2017 [facility] Random 21:18 EDT [facility] LAB[facility]ORY SERVICES Comment: Reference Range: Trough: ??10.0-20.0 Peak: ??25.0-50.0 Sample retested, result confirmed Specimen Anatomical Collection Method Collection Time Receive d Time (Source) Location / / Volume Laterality BLOOD SPECIMEN / 12/08/2017 5:58 12/09/19 18 Unknown EDT 12:16 EDT Marta Julio DO CHEMISTRY & BLOOD GAS ORDERA BLES Performing Organization Address City/State/ZIP Code Phon e Number [facility] [address] [place] [address] SERVICES HIV 1 AND HIV 2 AB DIFFERENTIATION, S (12/08/2017 5:58 EDT) [facility] 1 Ab Diff Negative Negative 12/10/2017 [facility] 8:02 EDT [facility]ENTER LAB[facility]ORY SERVICES Comment: (Note) Bands detected: None . Negative result does not rule out HIV in fection. Submit plasma specimens for HIV-1 RNA detection /quantification test (HIVDQ) and/or HIV-2 DNA/RNA test ( FHV2Q), based on patient's clinical and epidemiologic exp osure history. HIV 2 Ab Diff Negative Negative 12/10/2017 8:02 EDT [facility] SERVICES Comment: (Note) Bands detected: None . Negative result does not rule out HIV in fection. Submit plasma specimens for HIV-1 RNA detection /quantification test (HIVDQ) and/or HIV-2 DNA/RNA test ( FHV2Q), based on patient's clinical and epidemiologic exp osure history. Performed by: [facility] Labs: [address], [place] [address], Lab Dir: Saeid Martins II, M.D., Ph.D. Specimen Anatomical Collection Method Collection Time Receive d Time (Source) Location / / Volume Laterality BLOOD SPECIMEN / 12/08/2017 5:58 12/09/19 18 Unknown EDT 12:16 EDT Marta [facility] CHEMISTRY & BLOOD GAS ORDERA BLES Performing Organization Address City/State/ZIP Code Phon e Number [facility] [address] [place] [address] SERVICES BILIRUBIN, TOTAL (12/08/2017 5:58 EDT) P athologist Signature Bilirubin, 0.9 <1.4 mg/dl 12/08/2017 [facility] Total 13:22 EDT [facility] LAB[facility]ATORY SERVICES Specimen Anatomical Collection Method Collection Time Receive d Time (Source) Location / / Volume Laterality Blood specimen BLOOD SPECIMEN / 12/08/2017 5:58 2017 (specimen) Unknown EDT 12:16 EDT Marta Rosalia Vo DO CHEMISTRY & BLOOD GAS ORDERA BLES Performing Organization Address City/State/ZIP Code Phon e Number [facility] [address] [place] [address] SERVICES (ABNORMAL) RAPID HIV 1/2 ANTIGEN AND ANTIBODY, 4TH GENERATION (12/08/2017 5:58 EDT) Patholo gist Method Time Signature Rapid HIV 1/2 Reactive for Negative 12/08/2017 [facility] Ab anti-HIV1 15:54 EDT CENTER and/or LABORATORY anti-HIV2. SERVICES (A) Comment: Sample to be sent to [facility] for confirmatory testing. Refer to HIV 1/2 Ab Differentiation for final result and interpretation. HIV antibody should be interpreted in th e context of the patient's total clinical and laboratory information. Fourth generation assay performed on the Siemens Centaur. If acute HIV-1 infection is suspected in a high risk patient, submit plasma specime n for HIV-1 RNA quantification test. Specimen Anatomical Collection Method Collection Time Receive d Time (Source) Location / / Volume Laterality Blood specimen BLOOD SPECIMEN / 12/08/2017 5:58 2017 (specimen) Unknown EDT 12:16 EDT Marta Rosalia Vo DO CHEMISTRY & BLOOD GAS ORDERA BLES Performing Organization Address City/[facility]/ZIP Code Phon e Number [facility] [address] [place] [address] SERVICES (ABNORMAL) PROTIME (12/08/2017 5:58 EDT) athologist Signature Pro Time 15.5 (H) 10.3 - 13.4 12/08/2017 [facility] secs 12:43 [facility] LABORATORY SERVICES Comment: NOTE NEW REFERENCE RANGE OF OCT 07 2017 I.N.R. 1.3 (H) 0.9 - 1.1 Ratio 12/08/2017 12:43 T [facility] SERVICES Comment: Moderate Intensity Coumadin INR = 2.0-3. 0 Adjustments in anticoagulant therapy dos e should be based upon the INR and NOT the Pro Ti me. Specimen Anatomical Collection Method Collection Time Receive d Time (Source) Location / / Volume Laterality Blood specimen BLOOD SPECIMEN / 12/08/2017 5:58 2017 (specimen) Unknown EDT 12:16 EDT Marta Rosalia Vo DO HEMATOLOGY & PF4 ORDERABLES Performing Organization Address City/[facility]/ZIP Code Phon e Number [facility] [address] [place] [address] SERVICES PHOSPHORUS (12/08/2017 5:58 EDT) athologist Signature Phosphorus 3.9 2.5 - 4.5 12/08/2017 [facility] mg/dl 13:22 [facility]ENTER LABORATORY SERVICES Specimen Anatomical Collection Method Collection Time Receive d Time (Source) Location / / Volume Laterality Blood specimen BLOOD SPECIMEN / 12/08/2017 5:58 2017 (specimen) Unknown EDT 12:16 EDT Marta Rosalia Vo DO CHEMISTRY & BLOOD GAS ORDERA BLES Performing Organization Address City/[facility]/ZIP Code Phon e Number [facility] [address] [place] [address] SERVICES MAGNESIUM (12/08/2017 5:58 EDT) athologist Signature Magnesium 1.8 1.7 - 2.8 12/08/2017 [facility] mg/dl 13:22 EDT [facility] LAB[facility] SERVICES Specimen Anatomical Collection Method Collection Time Receive d Time (Source) Location / / Volume Laterality Blood specimen BLOOD SPECIMEN / 12/08/2017 5:58 2017 (specimen) Unknown EDT 12:16 EDT Marta Rosalia Vo DO CHEMISTRY & BLOOD GAS ORDERA BLES Performing Organization Address City/[facility]/ZIP Code Phon e Number [facility] [address] [place] [address] SERVICES GLUCOSE, SERUM (12/08/2017 5:58 EDT) athologist Signature Glucose, Serum 79 70 - 100 12/08/2017 [facility] mg/dl 13:22 EDT [facility] SERVICES Specimen Anatomical Collection Method Collection Time Receive d Time (Source) Location / / Volume Laterality Blood specimen BLOOD SPECIMEN / 12/08/2017 5:58 2017 (specimen) Unknown EDT 12:16 EDT Marta Lindsey Vo DO CHEMISTRY & BLOOD GAS ORDERA BLES Performing Organization Address City/[facility]/ZIP Code Phon e Number [facility] [address] [place] [address] SERVICES ELECTROLYTES (12/08/2017 5:58 EDT) athologist Signature Sodium 137 136 - 145 12/08/2017 [facility] mEq/L 13:22 EDT [facility] LAB[facility] SERVICES Potassium 3.8 3.5 - 5.0 12/08/2017 [facility] mEq/L 13:22 EDT [facility] SERVICES Chloride 105 96 - 110 12/08/2017 [facility] mEq/L 13:22 EDT [facility] LAB[facility]AT[facility] SERVICES CO2 27 22 - 32 12/08/2017 [facility] mEq/L 13:22 EDT [facility] SERVICES Specimen Anatomical Collection Method Collection Time Receive d Time (Source) Location / / Volume Laterality Blood specimen BLOOD SPECIMEN / 12/08/2017 5:58 2017 (specimen) Unknown EDT 12:16 EDT Marta Rosalia Vo DO CHEMISTRY & BLOOD GAS ORDERA BLES Performing Organization Address City/State/ZIP Code Phon e Number [facility] [address] [place] [address] SERVICES CREATININE (12/08/2017 5:58 EDT) athologist Signature Creatinine 0.67 0.52 - 12/08/2017 [facility] 1.04 mg/dl 13:22 EDT [facility]ENTER LABORATORY SERVICES GFR, Calculated 120 >60 12/08/2017 [facility] ml/min/1.7 13:22 T CENTER 3m2 LABORATORY SERVICES Comment: eGFR calculated using CKD-EPI equation f or non Americans. Multiply eGFR by 1.16 for Americans. Specimen Anatomical Collection Method Collection Time Receive d Time (Source) Location / / Volume Laterality Blood specimen BLOOD SPECIMEN / 12/08/2017 5:58 2017 (specimen) Unknown EDT 12:16 EDT Marta Rosalia Vo DO CHEMISTRY & BLOOD GAS ORDERA BLES Performing Organization Address City/State/ZIP Code Phon e Number [facility] [address] [place] [address] SERVICES (ABNORMAL) BUN (12/08/2017 5:58 EDT) athologist Signature BUN 6 (L) 10 - 26 12/08/2017 [facility] mg/dl 13:22 EDT [facility]ENTER LAB[facility]ATORY SERVICES Specimen Anatomical Collection Method Collection Time Receive d Time (Source) Location / / Volume Laterality Blood specimen BLOOD SPECIMEN / 12/08/2017 5:58 2017 (specimen) Unknown EDT 12:16 EDT Marta Rosalia Vo DO CHEMISTRY & BLOOD GAS ORDERA BLES Performing Organization Address City/[facility]/ZIP Code Phon e Number [facility] [address] [place] [address] SERVICES TEST, URINE (12/07/2017 17:00 EDT) athologist Signature Result-Pregnan Neg Neg 12/07/2017 [facility] cy Test, Ur 21:05 EDT [facility]ENTER LAB[facility]ATORY SERVICES Comment: NOTE: False negative results may occur in women who are beyond 5-8 weeks gestation. Diagnosis of should be based on a correlation of test results with typical clinical signs and symptoms. Specimen Anatomical Collection Method Collection Time Receive d Time (Source) Location / / Volume Laterality Urine URINE / Unknown 12/07/2017 17:00 12/08/19 18 (substance) EDT 20:58 EDT Marta Rosalia Vo DO URINALYSIS ORDERABLES Performing Organization Address City/State/ZIP Code Phon e Number [facility] [address] [place] [address] SERVICES PORTABLE CHEST 1 VIEW (12/07/2017 15:54 EDT) Anatomical Region Laterality Modality Other Specimen Anatomical Collection Method Collection Time Receive d Time (Source) Location / / Volume Laterality 12/07/2017 15:54 12/07/2017 EDT 16:26 EDT Narrative 12/07/2017 16:26 EDT PORTABLE CHEST 1 VIEW [...] diaphragm. Procedure Note Luis Jain MD - 12/07/2017Forma tting of this note might be different from the original. PORTABLE CHEST 1 VIEW 12/07/2017 3:54 PM [...] lower lobe atelectasis. 3. Elevated left diaphragm. Marta Rosalia Vo DO IMG DIAGNOSTIC IMAGING ORDER [place] LACTIC ACID (12/07/2017 15:49 EDT) athologist Signature Lactic Acid 1.2 <2.0 mmol/L 12/07/2017 [facility] 16:30 EDT [facility]ENTER LABORATORY SERVICES Specimen Anatomical Collection Method Collection Time Receive d Time (Source) Location / / Volume Laterality BLOOD SPECIMEN / 12/07/2017 15:49 018 Unknown EDT 15:55 EDT Marta Rosalia Vo DO CHEMISTRY & BLOOD GAS ORDERA BLES Performing Organization Address City/[facility]/ZIP Code Phon e Number [facility] [address] [place] [address] SERVICES (ABNORMAL) TROPONIN I (12/07/2017 15:49 EDT) [facility] gist Method Time Signature Troponin I 0.048 (H) <0.034 12/07/2017 [facility] (ng/mL) ng/ml 16:44 T [place] [facility] SERVICES Specimen Anatomical Collection Method Collection Time Receive d Time (Source) Location / / Volume Laterality Blood specimen BLOOD SPECIMEN / 12/07/2017 15:49 12/07 (specimen) Unknown EDT 15:55 EDT Marta Rosalia Vo DO CHEMISTRY & BLOOD GAS ORDERA BLES Performing Organization Address City/[facility]/ZIP Code Phon e Number [facility] [address] [place] [address] SERVICES (ABNORMAL) PROTIME (12/07/2017 15:49 EDT) athologist Signature Pro Time 14.8 (H) 10.3 - 13.4 12/07/2017 [facility] secs 16:52 EDT [facility]ENTER LABORATORY SERVICES Comment: NOTE NEW REFERENCE RANGE OF OCT 07 2017 I.N.R. 1.3 (H) 0.9 - 1.1 Ratio 12/07/2017 16:52 EDT [facility] Comment: Moderate Intensity Coumadin INR = 2.0-3. 0 Adjustments in anticoagulant therapy dos e should be based upon the INR and NOT the Pro Ti me. Specimen Anatomical Collection Method Collection Time Receive d Time (Source) Location / / Volume Laterality Blood specimen BLOOD SPECIMEN / 12/07/2017 15:49 12/07 (specimen) Unknown EDT 15:55 EDT Marta Rosalia Vo DO HEMATOLOGY & PF4 ORDERABLES Performing Organization Address City/State/ZIP Code Phon e Number [facility] [address] [place] [address] SERVICES (ABNORMAL) HEMAGRAM AND DIFFERENTIAL (12/07/2017 15:49 EDT) [facility] gist Method Time Signature WBC 4.62 4.0 - 12/07/2017 [facility] 12.4 16:15 EDT CENTER K/cmm LABORATORY SERVICES RBC 3.76 (L) 3.86 - 12/07/2017 [facility] 5.04 16:15 EDT CENTER M/cmm LABORATORY SERVICES Hemoglobin 8.8 (L) 11.6 - 12/07/2017 [facility] 15.2 16:15 EDT CENTER gm/dl LABORATORY SERVICES HCT 28.2 (L) 34.9 - 12/07/2017 [facility] 44.4 % 16:15 EDT [facility]ENTER LABORATORY SERVICES MCV 75 (L) 81 - 98 12/07/2017 [facility] fl 16:15 EDT [facility]ENTER LABORATORY SERVICES MCH 23.4 (L) 26.7 - 12/07/2017 [facility] 33.3 pg 16:15 EDT [facility]ENTER LABORATORY SERVICES Hypochromia 1+ 12/07/2017 [facility] 16:15 EDT [facility]ENTER LABORATORY SERVICES MCHC 31.2 (L) 32.1 - 12/07/2017 [facility] 35.9 16:15 EDT CENTER gm/dl LABORATORY SERVICES RDW-CV 23.1 (H) <14.7 % 12/07/2017 [facility] 16:15 EDT CENTER LABORATORY SERVICES RDW-SD 61.1 (H) <50.4 fl 12/07/2017 [facility] 16:15 EDT [facility]ENTER LABORATORY SERVICES Anisocytosis 2+ 12/07/2017 [facility] 16:15 EDT CENTER LABORATORY SERVICES PLT 145 141 - 377 12/07/2017 [facility] K/cm 16:15 EDT [facility]ENTER LABORATORY SERVICES MPV Not Available 9.5 - 12/07/2017 [facility] 12.7 fl 16:15 EDT [facility]ENTER LABORATORY SERVICES Neutrophils 68.0 % 12/07/2017 [facility] 16:44 EDT [facility]ENTER LABORATORY SERVICES Lymphocytes 30.0 % 12/07/2017 [facility] 16:44 EDT [facility]ENTER LABORATORY SERVICES Monocytes 1.0 % 12/07/2017 [facility] 16:44 EDT [facility]ENTER LABORATORY SERVICES Eosinophils 1.0 % 12/07/2017 [facility] 16:44 EDT CENTER LABORATORY SERVICES ABS Neutrophils 3.13 2.20 - 12/07/2017 [facility] 8.85 16:44 EDT CENTER K/cm LABORATORY SERVICES ABS Lymphs 1.39 1.09 - 12/07/2017 [facility] 3.30 16:44 EDT CENTER K/count includes the [facility] LABORATORY SERVICES ABS Monocytes 0.05 (L) 0.1 - 0.8 12/07/2017 [facility] K/cmm 16:44 EDT CENTER LABORATORY SERVICES ABS Eosinophils 0.05 0.03 - 12/07/2017 [facility] 0.61 16:44 EDT CENTER K/count includes the [facility] LABORATORY SERVICES Vacuolization Present 12/07/2017 [facility] 16:44 EDT CENTER LABORATORY SERVICES Large Platelets Present 12/07/2017 [facility] 16:44 EDT CENTER LABORATORY SERVICES Type of Diff: Manual 12/07/2017 [facility] 16:44 EDT CENTER LABORATORY SERVICES Specimen Anatomical Collection Method Collection Time Receive d Time (Source) Location / / Volume Laterality Blood specimen BLOOD SPECIMEN / 12/07/2017 15:49 12/07 (specimen) Unknown EDT 15:55 EDT Marta Julio DO PACKAGES & DNA PROBE ORDERAB LES Performing Organization Address City/State/ZIP Code Phon e Number [facility] [address] [place] [address] SERVICES PROTEIN, TOTAL (12/07/2017 15:49 EDT) P athologist Signature Total Protein 6.3 6.3 - 8.2 12/07/2017 [facility] g/dl 16:27 EDT CENTER LABORATORY SERVICES Specimen Anatomical Collection Method Collection Time Receive d Time (Source) Location / / Volume Laterality Blood specimen BLOOD SPECIMEN / 12/07/2017 15:49 12/07 (specimen) Unknown EDT 15:55 EDT Marta Rosalia Vo DO CHEMISTRY & BLOOD GAS ORDERA BLES Performing Organization Address City/State/ZIP Code Phon e Number [facility] [address] [place] [address] SERVICES (ABNORMAL) BILIRUBIN, TOTAL (12/07/2017 15:49 EDT) P athologist Signature Bilirubin, 1.7 (H) <1.4 mg/dl 12/07/2017 [facility] Total 16:27 EDT CENTER LAB[facility]ORY SERVICES Specimen Anatomical Collection Method Collection Time Receive d Time (Source) Location / / Volume Laterality Blood specimen BLOOD SPECIMEN / 12/07/2017 15:49 12/07 (specimen) Unknown EDT 15:55 EDT Marta Rosalia Vo DO CHEMISTRY & BLOOD GAS ORDERA BLES Performing Organization Address City/[facility]/ZIP Code Phon e Number [facility] [address] [place] [address] SERVICES BILIRUBIN DIRECT/INDIRECT (12/07/2017 15:49 EDT) Analysis Performed At Patho logist Time Signature Conjugated 0.0 0.0 - 0.3 12/07/2017 [facility] Bilirubin mg/dl 16:27 EDT CENTER LAB[facility]ORY SERVICES Unconjugated 1.1 0.0 - 1.1 12/07/2017 [facility] Bilirubin mg/dl 16:27 T CENTER LAB[facility]ORY SERVICES Specimen Anatomical Collection Method Collection Time Receive d Time (Source) Location / / Volume Laterality Blood specimen BLOOD SPECIMEN / 12/07/2017 15:49 12/07 (specimen) Unknown EDT 15:55 EDT Marta Rosalia Vo DO CHEMISTRY & BLOOD GAS ORDERA BLES Performing Organization Address City/State/ZIP Code Phon e Number [facility] [address] [place] [address] SERVICES AST (12/07/2017 15:49 EDT) P athologist Signature AST 40 15 - 46 U/L 12/07/2017 [facility] 16:27 EDT CENTER LAB[facility]ORY SERVICES Specimen Anatomical Collection Method Collection Time Receive d Time (Source) Location / / Volume Laterality Blood specimen BLOOD SPECIMEN / 12/07/2017 15:49 12/07 (specimen) Unknown EDT 15:55 EDT Marta Rosalia Vo DO CHEMISTRY & BLOOD GAS ORDERA BLES Performing Organization Address City/State/ZIP Code Phon e Number [facility] [address] [place] [address] SERVICES ALT (12/07/2017 15:49 EDT) athologist Signature ALT 25 <53 U/L 12/07/2017 [facility] 16:27 EDT CENTER LAB[facility]ORY SERVICES Specimen Anatomical Collection Method Collection Time Receive d Time (Source) Location / / Volume Laterality Blood specimen BLOOD SPECIMEN / 12/07/2017 15:49 12/07 (specimen) Unknown EDT 15:55 EDT Marta Rosalia Vo DO CHEMISTRY & BLOOD GAS ORDERA BLES Performing Organization Address City/State/ZIP Code Phon e Number [facility] [address] [place] [phone] SERVICES (ABNORMAL) ALBUMIN (12/07/2017 15:49 EDT) athologist Signature Albumin 2.3 (L) 3.4 - 4.9 12/07/2017 [facility] g/dl 16:27 EDT CENTER LAB[facility] SERVICES Specimen Anatomical Collection Method Collection Time Receive d Time (Source) Location / / Volume Laterality Blood specimen BLOOD SPECIMEN / 12/07/2017 15:49 12/07 (specimen) Unknown EDT 15:55 EDT Marta Julio DO CHEMISTRY & BLOOD GAS ORDERA BLES Performing Organization Address City/[facility]/ZIP Code Phon e Number [facility] [address] [place] [address] SERVICES CREATININE (12/07/2017 15:49 EDT) athologist Signature Creatinine 0.65 0.52 - 12/07/2017 [facility] 1.04 mg/dl 16:27 EDT CENTER LABORATORY SERVICES GFR, Calculated 121 >60 12/07/2017 [facility] ml/min/1.7 16:27 EDT CENTER 3m2 LABORATORY SERVICES Comment: eGFR calculated using CKD-EPI equation f or non Americans. Multiply eGFR by 1.16 for Americans. Specimen Anatomical Collection Method Collection Time Receive d Time (Source) Location / / Volume Laterality Blood specimen BLOOD SPECIMEN / 12/07/2017 15:49 12/07 (specimen) Unknown EDT 15:55 EDT Marta Rosalia Vo DO CHEMISTRY & BLOOD GAS ORDERA BLES Performing Organization Address City/State/ZIP Code Phon e Number [facility] [address] [place] [address] SERVICES (ABNORMAL) BUN (12/07/2017 15:49 EDT) athologist Signature BUN 6 (L) 10 - 26 12/07/2017 [facility] mg/dl 16:27 EDT CENTER LAB[facility]ATORY SERVICES Specimen Anatomical Collection Method Collection Time Receive d Time (Source) Location / / Volume Laterality Blood specimen BLOOD SPECIMEN / 12/07/2017 15:49 12/07 (specimen) Unknown EDT 15:55 EDT Marta Rosalia Vo DO CHEMISTRY & BLOOD GAS ORDERA BLES Performing Organization Address City/[facility]/ZIP Code Phon e Number [facility] [address] [place] [address] SERVICES SCREENING GLUCOSE (12/07/2017 15:49 EDT) athologist Signature Glucose, 77 70 - 100 12/07/2017 [facility] Screening mg/dl 16:27 EDT CENTER LAB[facility]ATORY SERVICES Specimen Anatomical Collection Method Collection Time Receive d Time (Source) Location / / Volume Laterality Blood specimen BLOOD SPECIMEN / 12/07/2017 15:49 12/07 (specimen) Unknown EDT 15:55 EDT Marta Rosalia Vo DO CHEMISTRY & BLOOD GAS ORDERA BLES Performing Organization Address City/[facility]/ZIP Code Phon e Number [facility] [address] [place] [phone] SERVICES PHOSPHORUS (12/07/2017 15:49 EDT) athologist Signature Phosphorus 3.6 2.5 - 4.5 12/07/2017 [facility] mg/dl 16:27 EDT CENTER LAB[facility] SERVICES Specimen Anatomical Collection Method Collection Time Receive d Time (Source) Location / / Volume Laterality Blood specimen BLOOD SPECIMEN / 12/07/2017 15:49 12/07 (specimen) Unknown EDT 15:55 EDT Marta Rosalia Vo DO CHEMISTRY & BLOOD GAS ORDERA BLES Performing Organization Address City/State/ZIP Code Phon e Number [facility] [address] [place] [phone] SERVICES MAGNESIUM (12/07/2017 15:49 EDT) P athologist Signature Magnesium 1.9 1.7 - 2.8 12/07/2017 [facility] mg/dl 16:27 EDT CENTER LAB[facility] SERVICES Specimen Anatomical Collection Method Collection Time Receive d Time (Source) Location / / Volume Laterality Blood specimen BLOOD SPECIMEN / 12/07/2017 15:49 12/07 (specimen) Unknown EDT 15:55 EDT Marta [facility] DO CHEMISTRY & BLOOD GAS ORDERA BLES Performing Organization Address City/State/ZIP Code Phon e Number [facility] [address] [place] [address] SERVICES ELECTROLYTES (12/07/2017 15:49 EDT) athologist Signature Sodium 138 136 - 145 12/07/2017 [facility] mEq/L 16:27 EDT CENTER LAB[facility]ATORY SERVICES Potassium 3.7 3.5 - 5.0 12/07/2017 [facility] mEq/L 16:27 EDT CENTER LAB[facility]AT[facility] SERVICES Chloride 105 96 - 110 12/07/2017 [facility] mEq/L 16:27 EDT CENTER LAB[facility]ATORY SERVICES CO2 27 22 - 32 12/07/2017 [facility] mEq/L 16:27 EDT [facility] SERVICES Specimen Anatomical Collection Method Collection Time Receive d Time (Source) Location / / Volume Laterality Blood specimen BLOOD SPECIMEN / 12/07/2017 15:49 12/07 (specimen) Unknown EDT 15:55 EDT Marta [facility] CHEMISTRY & BLOOD GAS ORDERA BLES Performing Organization Address City/State/ZIP Code Phon e Number [facility] [address] [place] [address] SERVICES (ABNORMAL) CALCIUM (12/07/2017 15:49 EDT) Analysis Performed At Patho logist Time Signature Calcium 7.9 (L) 8.5 - 10.5 12/07/2017 [facility] mg/dl 16:27 EDT CENTER LAB[facility] SERVICES Calculated 9.3 8.5 - 10.5 12/07/2017 [facility] Calcium mg/dl 16:27 EDT CENTER LABORATORY SERVICES Specimen Anatomical Collection Method Collection Time Receive d Time (Source) Location / / Volume Laterality Blood specimen BLOOD SPECIMEN / 12/07/2017 15:49 12/07 (specimen) Unknown EDT 15:55 EDT Marta Julio DO CHEMISTRY & BLOOD GAS ORDERA BLES Performing Organization Address City/[facility]/ZIP Code Phon e Number [facility] [address] [place] [address] SERVICES TYPE AND SCREEN (12/07/2017 15:44 EDT) [facility] Method Time Signature ABO O [facility] Rh Factor Positive [facility] Antibody Negative [facility] BLOOD BANK Specimen 12/10/2017 @ [facility] Expires: 23:59 CENTER BLOOD BANK Specimen (Source) Anatomical Collection Method Collection Time Re ceived Time Location / / Volume Laterality Blood specimen 12/07/2017 15:44 (specimen) EDT Marta Julio DO BLOOD BANK TESTS Performing Organization Address City/[facility]/ZIP Code Phon e Number [facility] [address] [facility] BLOOD BANK MRSA PCR (12/07/2017 15:30 EDT) [facility] gist Method Time Signature Result No Staphylococcus 12/07/2017 [facility] aureus detected by 22:32 EDT CENTER PCR. LABORATORY SERVICES Specimen Anatomical Collection Method Collection Time Receive d Time (Source) Location / / Volume Laterality Other (qualifier NASAL / Unknown 12/07/2017 15:30 04/0 11/2017 value) EDT 17:12 EDT Marta Julio DO MICROBIOLOGY - GENERAL ORDER CURTIS Performing Organization Address City/[facility]/ZIP Code Phon e Number [facility] [address] [place] [address] SERVICES GLUCOSE, GLUCOMETER (12/07/2017 15:25 EDT) Analysis Performed At [facility] logist Time Signature Glucose, 80 70 - 100 12/07/2017 [facility] Fingerstick mg/dl 15:29 EDT CENTER LABORATORY SERVICES Credit Intern ID [id number] 12/07/2017 [facility] 15:29 EDT CENTER LABORATORY SERVICES Comment: Test Performed by Nursing Natalya christianson Specimen Anatomical Collection Method Collection Time Receive d Time (Source) Location / / Volume Laterality BLOOD SPECIMEN / 12/07/2017 15:25 018 Unknown EDT 15:29 EDT Arie Padilla MD CHEMISTRY & BLOOD GAS ASHLYN DUMONTS Performing Organization Address City/State/ZIP Code Phon e Number [facility] CENTER LABORATORY [address] [place] [address] SERVICES documented in this encounter Visit Diagnoses [...] Bacteremia HIV (human immunodeficiency virus infect ion) (HCC) Asymptomatic human immunodeficiency viru s (HIV) infection [...] valve replaced by other means Hemolytic anemia (HCC) Acquired hemolytic anemia, unspecified Viral hepatitis C [...] Starting on Negin 12/09/17 at 1807, Until Wed12/20/17 at 1527, Fever, Routine Given 12/19/2017 6:16 [...] mg 2 mg, intercatheter, PRN, Starting on Negin 12/09/17 at 1452, Until Wed12/30/17 at 1759, Line [...] 250 mg, oral, DAILY, First dose on [facility] 12/25/17 at 0900, Until Discontinued, Routine ascorbic acid [...] on 12/11/17 at 1200, Last dose on Wed12/18/17 at 0430, STAT Given 12/12/2017 4:39 EDT [...] EDT 4 mg HYDROmorphone 1 mg/ml (DILAUDID) [employer] Rate Documented 12/21/2017 8:00 EDT syringe, 30 ml intravenous, [employer], Starting on Wed12/20/17 at 1845, Until Wed12/21/17 at 1026, See PRN bolus orders for breakthrough pain. CLICK to see order details, STAT, [employer] Dose (mg): 0.2, Lockout Interval (minutes): 10, Maximum Limit (mg/hr): 1.2 New Bag 12/20/2017 18:55 EDT HYDROmorphone 1 mg/ml (DILAUDID) [employer] syr lila, 30 ml New Bag 12/23/2017 4:14 EDT intravenous, [employer], Starting on Wed12/21/17 at 1045, Until Wed12/23/17 at 0602, See PRN bolus orders for breakthrough pain. CLICK to see order details, STAT, [employer] Dose (mg): 0.2, Lockout Interval (minutes): 6, Maximum Limit (mg/hr): 2 Rate Documented 12/22/2017 22:13 EDT New Bag 12/21/2017 23:47 EDT insulin aspart U-100 (NOVOLOG FLEXPEN) i njection subcutaneous, 3 TIMES DAILY WITH MEALS, First dose on Wed12/25/17 at 0800, Until Discontinued, Routine insulin regular [...] mg/hr (1 mL/hr), intravenous, CONTINUOUS, Starting on Wed12/20/17 at 1545, Until Wed12/25/17 at 2359, STAT Rate Documented 12/25/2017 21:37 EDT 10 mg/hr 1 mL/hr Rate Documented 12/25/2017 19:30 EDT 10 mg/hr 1 mL/hr lactated ringers (LR) infusion New Bag 12/20/2017 7:05 EDT 30 mL/hr 30 mL/hr 30 mL/hr, intravenous, CONTINUOUS, Starting on Wed12/20/17 [...] oral, 2 TIMES DAILY PRN, Starting on Wed12/16/17 at 0830, Until Wed12/20/17 at 1527, Anxiety, [...] DAILY, First dose (after last modification) on Wed12/09/17 at 0730, Until Discontinued, Routine Given 12/18/2017 [...] Starting on Negin 12/23/17 at 2147, Until 12/27/17 at 0812, Pain, Routine Given 12/26/2017 4:08 EDT 1 mg Given 12/25/2017 19:39 EDT 1 mg morphine 2 mg/ml (DURAMORPH) [employer], 30 ml Rate Documented 12/26/2017 16 :07 EDT syringe intravenous, [employer], Starting on Negin 12/23/17 at 2215, Until 12/27/17 at 0812, See PRN bolus orders for breakthrough pain. CLICK to see order details, Routine, [employer] Dose (mg): 1, Lockout Interval (minutes): 10, [...] intravenous, EVERY 6 HOURS PRN, Starting on 12/20/17 at 1527, Until Negin 12/30/17 at [...] to 6 mL/hr), intravenous, CONTINUOUS, Starting on Wed12/20/17 at 1545, Until Wed12/20/17 at 1619, Routine, On Unit Rate Change [...] PRN, Starting on Wed12/19/17 at 2204, Until Wed12/20/17 at 1527, Sleep, Routine senna (SENOKOT) tablet 2 Tab Given 12/17/2017 14:59 EDT 2 Tablets 2 Tablet, oral, 2 TIMES DAILY PRN, Starting on Tu12/07/17 at 1526, Until 12/18/17 at 0858, Constipation, [...] 15:00 EDT 10 mL/hr 10 mL/hr infusion 10 mL/hr, intravenous, CONTINUOUS, Starting on 12/20/17 at 1545, Until 12/25/17 at 0041, Routine [...] PRN, Starting on Wed12/20/17 at 1527, Until Wed12/30/17 at 1759, Pain, Routine Given 12/29/2017 9:26 [...] Gill RN)0756 (Given - Provider: Maria Elena Kaye RN)1422 (Given - Provider: Maria Elena Kaye RN)2104 (Given - Provider: Azalia Gill RN) 0220 (Given - Provider: Azalia Gill RN)0926 (Given - Provider: Saeid Hyman RN)1331 (Given - Provider: Saeid Hyman RN)2128 (Given - Provider: Azalia Gill RN) 0208 (Given - Provider: Azalia Gill RN)0958 (Given - Provider: Saeid Hyman RN)1420 (Given - Provider: Saeid Hyman RN) 1,000 mg, oral, EVERY 6 HOURS, First dos e on Wed12/20/17 at 1545, Until Discontinued, Routine ascorbic acid (vitamin C) (VITAMIN C) tablet 1,000 mg (CANCELED) 0800 (Given - Provider: Maria Elena Kaye RN) 0927 (Given - Provider: Saeid Hyman RN) 1,000 mg, oral, DAILY, First dose on Wed12/26/17 at 0900, Until Discontinued, Routine ascorbic acid (vitamin C) (VITAMIN C) tablet 500 mg 0958 (Given - Provider: Saeid Hyman RN) 500 mg, oral, DAILY, First dose on Negin at 0900, Until Discontinued, Routine aspirin EC tablet 81 mg 0800 (Given - Provider: Maria Elena collazo RN) 0926 (Given - Provider: Saeid Hyman RN) 0958 (Given - Provider: Saeid Hyman RN) 81 mg, oral, DAILY, First dose on Tu at 1645, Until Discontinued, Routine calcium gluconate 2,000 mg in dextrose 5% (D5W) 50 mL IVPB ( COMPLETED) 1437 (Given - Provider: Saeid Hyman RN) 2,000 mg (2 g), intravenous, Administer over 60 Minutes, NOW X1, 1 dose, 12/29/17 at 1315, STAT dextrose 50 % solution 25 g (COMPLETED) 1309 (Given - Provider: Saeid Hyman, MINDA) 25 g, intravenous, NOW X1, 1 dose, 12/29/17 at 1315, STAT docusate sodium (COLACE) capsule [...] Kaye RN) 0926 (Given - Provider: Saeid Hyman RN) 0958 (Given - Provider: Saeid Hyman [...] Kaye RN)1633 (Given - Provider: Maria Elena Kaye RN) 0926 (Given - Provider: Saeid Hyman RN)1750 (Given - Provider: Saeid Hyman RN) 0958 (Given - Provider: Saeid Hyman RN) 20 mg, oral, 2 TIMES DAILY WITH BREAKFAS T & DINNER, First dose on Wed12/21/17 at 1030, Until Discontinued, Routine gabapentin (NEURONTIN) capsule 300 mg 0757 (Given - Pr ovider: Maria Elena Kaye RN)1633 (Given - Provider: Maria Elena Kaye RN) 0007 (Given - Provider: Azalia Gill, MINDA)0926 (Given - Provider: Saeid Hyman RN)1543 (Given [...] (NS) 0.9 % 5 0 mL IVPB 2031 (Given - Provider: Azalia Gill RN) 0958 (Given - Provider: Saeid Hyman RN) 45 mg, intravenous, Administer over 30 M inutes, EVERY 12 HOURS, 7 doses, First dose on Wed12/29/17 at 1999, Last dose on Wed01/01/18 at 2000, Routine gentamicin (GARAMYCIN) 50 mg in sodium c hloride (NS) 0.9 % 50 mL IVPB (CANCELED) 1024 (Given - Provider: Maria Elena alamo RN)2233 (Given - Provider: Azalia Gill RN) 0930 (Trough Due - Provider: Iliana kirby [facility] - Comment: Please call lab to collect via venipuncture gentamicin trough prior to dose administration. Thanks.) 50 mg, intravenous, Administer over 30 M inutes, EVERY 12 HOURS, 5 doses, First dose on Wed12/27/17 at 2200, Last dose on Wed12/29/17 at 2000, Routine 1100 (Peak Due - Provider: Iliana Youssef [facility] - Comment: Please call lab to collect [...] dose on Wed12/25/17 at 0800, Until Discontinued 183 (Not Given - Provider: Maria Elena collazo [...] Gill RN) 0958 (Given - Provider: Saeid Hyman, MINDA) 50 mg, oral, 2 TIMES DAILY, First dose o n Wed12/22/17 at 2100, Until Discontinued, Routine Multivitamins with Minerals tablet 1 Tab 0801 (Given - Provider: Maria Elena Kaye RN) 09 (Given - Provider: Saeid Hyman RN) 0958 (Give n - Provider: Saeid Hyman RN) 1 Tab, oral, DAILY, First dose on Wed at 0900, Until Discontinued, Routine penicillin G potassium 4 Million Units i n sodium chloride (NS) 0.9 % 250 mL custom IVPB 0211 (Given - Provider: Azalia Gill RN)0638 (Given - Provider: Azalia Gill RN)1023 (Given - Provider: Maria Elena Kaye RN)1416 (Given - Provider: Maria Elena Kaye RN)1920 (Given - Provider: Maria Elena Kaye RN) 0232 (Given - Provider: Azalia Gill RN)0545 (Given - Provider: Azalia Gill RN)1202 (Given - Provider: Saeid Hyman RN - Comment: Only 1 line available at time) 0209 (Given - Provider: Azalia Gill RN)0622 (Given - Provider: Azalia Gill RN)1100 (Given - Provider: Saeid Hyman, MINDA)1400 (Canceled Entry - Provider: Batch Job User Admin - Comment: Automatically canceled at discontinu 4 Million Units, intravenous, Administer over 60 Minutes, EVERY 4 HOURS, 42 doses, First dose on Wed12/27/17 at 1400, Last dose on Wed01/03/18 at 1000 2233 (Given - Provider: Azalia Gill RN) 1543 (Given - Provider: Saeid Hyman RN - Comment: Off schedule from AM administration adjustment)1852 (Given - Provider: Saeid Hyman, RN)2136 (Given - Provider: Azalia Gill RN) e of medication order) potassium chloride SA (K-DUR, KLOR-CON) tablet 10 mEq (CANCELED) 0758 (Given - Provider: Maria Elena Kaye RN)1633 (Given - Provider: Maria Elena Kaye RN) 0926 (Given - Provider: Saeid Hyman, MINDA) 10 mEq, oral, 2 TIMES DAILY, First [...] 2 TIMES DAILY, First dose o n 12/24/17 at 2100, Until Discontinued, Routine PRN Medication Order 12/28/2017 12/29/2017 12/30/2017 alteplase (CATHFLO ACTIVASE) injection 2 mg 0919 (Give n - Provider: Nila Spear RN - Comment: purple lumen)1126 (Completed - Provider: Nila Spear RN) 1015 (Given - Provider: Nila Spear RN - Comment: to red lumen)1246 (Completed - Provider: Nila Spear RN) 2 mg, intercatheter, PRN, Starting Negin [...] Azalia Gill, MINDA)0609 (Given - Provider: Azalia Gill, MINDA)1240 (Given - Provider: Maria Elena Kaye, MINDA)1633 (Given - Provider: Maria Elena Kaye, RN)2104 (Given - Provider: Azalia Gill, MINDA) 0007 (Given - Provider: Azalia Gill RN)0334 (Given - Provider: Azalia Gill RN)0656 (Given - Provider: Azalia Gill RN)1010 (Given - Provider: Saeid Hyman RN)1331 (Given - Provider: Saeid Hyman RN) 0208 (Given - Provider: Azalia Gill RN)0810 (Given - Provider: Saeid Hyman, RN)1121 (Given - Provider: Saeid Hyman RN)1420 (Given - Provider: Saeid Hyman RN) 30 mg, oral, EVERY 3 HOURS PRN, Starting Negin 12/23/17 at 0603, Until Negin 12/30/17 at 1759, Pain, Routine 175 (Given - Provider: Kiel Hyman RN)2128 (Given - Provider: Azalia Gill RN) ondansetron (PF) (ZOFRAN) injection 4 mg 0707 (Given - Provider: Azalia Gill RN) 4 mg, intravenous, EVERY 6 HOURS PRN, St arting 12/20/17 at 1527, Until Negin 12/30/17 at 1759, Nausea, Routine traMADol (ULTRAM) tablet 50-100 mg 0926 (Given - Provider: Saeid Hyman RN)1946 (Given - Provider: Azalia Gill RN) 50-100 mg, oral, EVERY 6 HOURS PRN, [...] 30 mL ipratropium-albuterol (DUONEB) 0.5 mg-3 2 04/19/20 18 mg(2.5 mg base)/3 mL nebulizer solution [...] nitroglycerin 400 mcg/ml in D5W 250 ml 1 8 infusion potassium chloride in water infusion [...] sennosides (SENOKOT) syrup 17.6 mg 1 12/07/2017 Diet Count Last Ordered Date First Ordered [...] Ordered Date MISCELLANEOUS DISCHARGE INSTRUCTIONS 3 12/30/2017 documented in this encounter Care Teams Chief Recordist Relationship Specialty Start Date End Date Nick Kumar MD PCP - General 05/18/11 12/07/17 Alex Bliss MD PCP - General 12/08/17 [facility] [place] [address] documented as of this encounter
--- OUTSIDE RECORDS SUMMARY | 2022-07-17 05:17 | XMS_ITS | Encounter Summary ---
:1990 Author Organization [facility] Address [address] [place] [address] Care Team Providers Name Role Phone Nick Kumar MD Primary Care Provider Unavailable Encounter Details Date Type Department Care Team Description 04/19/2012 Results Only [facility] Raghavendra Mahajan ea, PA Laboratory Services - [address] [place] [address] [address] [facility] [place] [address] [phone] Social History Tobacco Use Types Packs/Day Years [...] encounter Results SYPHILIS SEROLOGY (04/19/2012 13:58 EDT) [employer] Method Time Signature Syphilis Interpretation: GARCIA Serology Nonreactive [facility] Comment: Reference Range: Nonreactive Specimen Anatomical Collection Method Collection Time Receive d Time (Source) Location / / Volume Laterality 04/19/2012 13:58 04/19/2012 EDT 20:25 EDT Imtiaz [facility]ITTEN IMMUNOLOGY AND SEROLOGY ALKA DURAND Performing Organization Address City/[facility]/ZIP Code Phon e Number [facility] [address] [place] [address] SERVICES GARC[facility] [address] [place] [address] HEPATITIS C VIRUS (HCV) RNA DETECTION AND Q (04/19/2012 13:58 EDT) [employer] Method Time Signature HCV Quant by [id number] Undetected GARCIA RT PCR IU/mL [facility] Comment: (Note) Result in log IU/mL is 5.55. The quantification range of this assay i s 43 IU/mL to 69,000,000 IU/mL (1.63 log IU/mL to 7.84 log IU/mL). Testing was performed by the KATY Ampli Prep/KATY TaqMan HCV Test ([employer] . Performed by: [facility] Dpt Lab Med an d [facility] , [address] [place] [address] , [place] [address], Lab Dir: ??Chris Camarillo III, M.D. Specimen Anatomical Collection Method Collection Time Receive d Time (Source) Location / / Volume Laterality 04/19/2012 13:58 04/19/2012 EDT 20:25 EDT Imtiaz WHITTEN CHEMISTRY & BLOOD GAS ASHLYN CISNEROS Performing Organization Address City/[facility]/ZIP Code Phon e Number [facility] [address] [place] [address] SERVICES [facility] [address] [place] [address] CHLAMYDIA/GC AMPLIFIED (04/19/2012 13:34 EDT) Component Value Ref Test Analysis [facility] Method Time Signature Specimen Unknown GARCIA Description [facility] Chlamydia No Chlamydia GARCIA Result trachomatis DNA [facility] detected by fac engineer mediated amplification. GC Result No Neisseria GARCIA gonorrhoeae DNA [facility] detected by fac engineer mediated amplification. Specimen Anatomical Collection Method Collection Time Receive d Time (Source) Location / / Volume Laterality 04/19/2012 13:34 04/19/2012 EDT 15:44 EDT Imtiaz [facility]ITTEN MICROBIOLOGY - GENERAL ORDER CURTIS Performing Organization Address City/State/ZIP Code Phon e Number [facility] [address] [place] [address] SERVICES [facility] [address] [place] [address] PAP TEST- RESULT ONLY (04/19/2012 0:00 EDT) Component Value Ref Test Analysis Performed At [employer] Range Method Time Signature Pathology CYTOPATHOLOGY REPORT JOSE Report: [facility] STRICKLAND Reports generated via electronic interface contain original data; however they are lacking the format of the original report. Caution should be taken when reading/interpreting unformatte d reports. Name: ? INA ORELLANA ? Accession #: ? [id number] : ? 1990 (Age: 22) ??F ?Collect Date: ? 04/19/2012 Location: ? [facility] ? Receive Date: ? 04/20/2012 Provider: ?IMTIAZ WHITTEN Copy to: ? Specimen/Source: ? Pap Test, Cervix, ThinPrep Imaging System with manual evaluation Last Menstrual Period: ? [id number] Menstrual/ Status: ? Post Previous Gynecologic Pathology: ? Yes: previous pap atypical Other: ? Additional clinical information: no previous treatment ? SPECIMEN ADEQUACY ? Satisfactory for Evaluation - transformation zone component present GENERAL CATEGORIZATION ? Negative for Intraepithelial Lesion or Malignancy INTERPRETATION ? Reactive cellular ramesh nges associated with inflammation present (includes repair). ? Document reviewed and electronically signed by: ? LORRI ANGUIANO MD [facility] ? Report Date: ??04/27/2012 11:50 End of Report Specimen (Source) Anatomical Location Collection Method / Collectio n Time Received Time / Laterality Volume 04/19/2012 04/20/2012 Imtiaz [facility]ITTEN PATHOLOGY ORDERABLES Performing Organization Address City/State/ZIP Code Phon e Number [facility] [address] [place] [address] SERVICES [facility] [address] [place] [address] documented in this encounter Visit Diagnoses Not on filedocumented in this encounter Care Teams Alignment Mechanic Relationship Specialty Start Date End Date Nick Kumar MD PCP - General 05/18/11 12/07/17 documented as of this encounter
--- OUTSIDE RECORDS SUMMARY | 2022-07-17 05:17 | XMS_ITS | Encounter Summary ---
:1990 Author Organization [facility] Address [address] [place] [address] Care Team Providers Name Role Phone Nick Kumar MD Primary Care Provider Unavailable Reason for Visit Reason Comments Addiction Problem Encounter Details Date Type Department Care Team Description 05/18/2011 Nurse Only [facility] Unknown, Drug depe ndence, Women's Services - Main Provider , antepartum (Primary Dx) [place] [phone] [place] [address] (Work) [place] [address] [phone] Social History Tobacco Use Types Packs/Day Years Used Date Smoking Tobacco: Never Assessed Sex Assigned at Date Recorded Not on file documented as of this encounter Progress Notes Ashley Tolentino, [facility] - 05/18/2011 5930 EDT Ina is a single 21 yr. Old accompanied to clinic today by her boyfriend. He is not the FOB. FOBwill not be involved with the baby. Soni live in [facility] [facility]. was unplanned. She has 2 children [...] old and lives with his father in [facility] [place]. She wasusing street bup.during her second and [...] 8 mg perday. She has been to [facility] for counseling .She plans to resume counseling with Shannon. Ina is anxious to start bup. Treatment. She is aware that she will need to find a post provider. Melm consent signed today. Plan to follow for support and referral. 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
--- OUTSIDE RECORDS SUMMARY | 2022-07-17 05:17 | XMS_ITS | Encounter Summary ---
:1990 Author Organization [facility] Address [address] [place] [address] Care Team Providers Name Role Phone Timothy Bliss MD Primary Care Provider Encounter Details Date Type Department Care Team Description 12/28/2017 Documentation Visit [facility] Michelle Silvestre RN Home Infusion [address] [facility] [place] [address] [address] [facility] [address] [place] [address] Social History Tobacco Use Types Packs/Day Years [...] documented as of this encounter Progress Notes Michelle Silvestre, MINDA - 12/28/2017 0954 EDT Patient: Ina Orellana [...] infusion service. Medication Order Review Admission Criteria: Cultural/latter day barriers to home infusion therapy: No Language other than Italian: No Vision, speech, hearing, or cognitive impairment: [...] we can forward that information on to [facility] will make their own independent decision regarding [...] education evaluation: Potential to become independent - [facility] follow up / instruction General Information: Home Health Contacted?: Yes Delivery process: Yes Home Health Agency Contact Info: CIPRIANO Perez ([phone]) Laboratory Contacts: [facility] ([place]) [phone] Referral Source: Nurse/Guide Domestic Tour Plan: Initial teach completed with pt and [...] we can forward that information on to [facility]. [facility] will make their own independent decision regarding their ability to take pt on service. If they are unwilling to take pt, we will be unable to provide the service as well. Michelle Silvestre RN 12/28/2017 9:58 Carroll Doherty [facility] - 12/28/2017 0954 EDT PT never came on service documented in this encounter Plan of Treatment Not on filedocumented as of this encounter Visit Diagnoses Not on filedocumented in this encounter Care Teams Marksmanship Instructor Relationship Specialty Start Date End Date Timothy Bliss MD PCP - General 12/08/17 [address] [place] [address] documented as of this encounter
--- OUTSIDE RECORDS SUMMARY | 2022-07-17 05:17 | XMS_ITS | Encounter Summary ---
:1990 Author Organization [facility] Address [address] [place] [id number] Care Team Providers Name Role Phone Guillaume Kumar MD Primary Care Provider Unavailable Reason for Visit Reason Comments Amenorrhea Encounter Details Date Type Department Care Team Description 02/08/2012 Hospital Encounter [facility] Cindy Anne ominal bloating; Urgent Care - Toma Keyes NP Elevated liver function tests [address] [place] [address] [phone] [place] [address] Social History Tobacco Use Types Packs/Day Years Used Date Smoking Tobacco: Every Day Cigarettes 0.3 Smokeless Tobacco: Never Alcohol Use Standard Drinks/Week Comments No 0 (1 standard drink = 0.6 oz pure alcoho l) Sex Assigned at Date Recorded Not on file documented as of this encounter Last Filed Vital Signs Vital Sign Reading Time Taken Comments Blood Pressure 130/60 02/08/2012 1357 EDT Pulse 68 02/08/2012 1357 EDT Temperature 36.9 ??C (98.4 ??F) 02/08/2012 1357 EDT Respiratory Rate 16 02/08/2012 1357 EDT Oxygen Saturation - - Inhaled Oxygen Concentration - - Weight - - Height - - Body Mass Index - - documented in this encounter Discharge Instructions Trudi Barrett NP - 02/08/2012 As we discussed, ensure that you make a follow up appointment with your liver specialist at [facility], as your liver function tests were elevated today. If you do not get your period within the next month, follow up with your Triage Register Nurse. Do not take acetaminophen or drink alcohol. If you develop any symptoms, return to the [facility], or present to the ED. documented in this encounter Medications at Time of Discharge Medication Sig Dispensed Refills Start Date End Date trazodone (DESYREL) 50 mg Take 50 mg by mouth 0 12/30/2017 tablet at bedtime. documented as of this encounter Discharge Disposition Disposition Code Departure Means Destination Home or Self Care documented in this encounter ED Notes Trudi Anne NP - 02/08/2012 1450 EDT DOS: 02/08/2012 Chief Complaint Patient presents with ??? Amenorrhea The patient is a 21 y.o. female who presents today with Amenorrhea HPI Comments: Patient presents from [facility] for additional lab work. 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 She reports feeling mildly fatigued, with RUQ pain (with palpation only). She does have a history of hepatitis C (diagnosed in 2008). She smokes 5 cigarettes per day, and does not drink alcohol. She is 4 months post , and reports having one normal menses in mid December. She then had a sexual encounter with her regular partner the last week of December, and she notes that the condom broke. Shetook the morning after pill, but is concerned, as she has not had a normal menses since then. Negative HIV testing done on 02/03. The history is provided by the patient. Amenorrhea Primary symptoms include no pelvic pain and no vaginal bleeding. There has been no fever. Pertinent negatives include no diaphoresis, no abdominal pain, no nausea, no vomiting, no frequency and no dizziness. Review of Systems Constitutional: Positive for fatigue. Negative for fever, chills, diaphoresis, activity change, appetite change and unexpected weight change. Respiratory: Negative for cough and shortness of breath. Gastrointestinal: Negative for nausea, vomiting and abdominal pain. Genitourinary: Negative for frequency, hematuria, flank pain, vaginal bleeding, vaginal discharge, vaginal pain and pelvic pain. Musculoskeletal: Negative for back pain. Neurological: Negative for dizziness. No current facility-administered medications for this encounter. Current Outpatient Prescriptions Medication Sig Dispense Refill ??? trazodone (DESYREL) 50 mg tablet Take 50 mg by mouth at bedtime. No Known Allergies Past Medical History Diagnosis Date ??? Hepatitis C History Substance Use Topics ??? Smoking status: Current Everyday Smoker -- 0.2 packs/day Types: Cigarettes ??? Smokeless tobacco: Never Used ??? Alcohol Use: No No family history on file. BP 130/60 Pulse 68 Temp(Src) 98.4 ??F (36.9 ??C) (Oral) Resp 16 LMP 12/13/2011 ? No Physical Exam Nursing note and vitals reviewed. Constitutional: She is oriented to person, place, and time. She appears well- developed and well-nourished. No distress. HENT: Head: Atraumatic. Cardiovascular: Normal rate, regular rhythm and normal heart sounds. Exam reveals no gallop and no friction rub. No murmur heard. Pulmonary/Chest: Effort normal and breath sounds normal. No respiratory distress. She has no wheezes. She has no rales. She exhibits no tenderness. Abdominal: Soft. She exhibits no distension and no mass. There is tenderness (mild, RUQ). There is no rebound and no guarding. Neurological: She is alert and oriented to person, place, and time. Skin: Skin is warm and dry. Psychiatric: She has a normal mood and affect. Consult orders: None PCP: GUILLAUME KUMAR MD Results for orders placed during the hospital encounter of 02/08/12 POCT URINE DIPSTICK Component Value Range Color YELLOW Clarity, UA Clear Glucose Neg Neg Bilirubin Neg Neg Ketones Trace (*) Neg Specific Cardwell 1.025 1.001 - 1.035 Blood Neg Neg pH 7.0 4.6 - 8.0 Protein Trace (*) Neg Urobilinogen 0.2 0.2 - 1.0 (E.U./dl) Nitrite Neg Neg Leuk Esterase Neg Neg Tech ID [id number] TEST, URINE Component Value Range Result- Test, Ur Negative HCG Component Value Range HCG <5 <5 (mIU/ml) COMPREHENSIVE METABOLIC PANEL (CMP) Component Value Range Potassium 4.7 3.5 - 5.0 (mEq/L) Sodium 142 136 - 145 (mEq/L) Chloride 101 96 - 110 (mEq/L) CO2 30 24 - 32 (mEq/L) Total Alkaline Phosphatase 64 38 - 126 (U/L) Bilirubin, Total 0.5 0.2 - 1.3 (mg/dl) AST 73 (*) 15 - 46 (U/L) ALT 62 (*) 9 - 52 (U/L) Albumin 4.2 3.4 - 4.9 (g/dl) Total Protein 7.9 6.5 - 8.3 (g/dl) Creatinine 0.70 0.52 - 1.04 (mg/dl) GFR, Calculated >60 >60 (ml/min/1.73m2) BUN 17 10 - 26 (mg/dl) Calcium 9.0 8.5 - 10.5 (mg/dl) Calculated Calcium 9.2 8.5 - 10.5 (mg/dl) Glucose, Serum 68 (*) 70 - 100 (mg/dl) Fasting? Unknown HEMAGRAM AND DIFFERENTIAL Component Value Range WBC 5.58 4.0 - 12.4 (K/cmm) RBC 4.27 3.86 - 5.04 (M/cmm) Hemoglobin 11.4 (*) 11.6 - 15.2 (gm/dl) HCT 34.6 (*) 34.9 - 44.4 (%) MCV 81 81 - 98 (fl) MCH 26.6 (*) 26.7 - 33.3 (pg) MCHC 32.9 32.1 - 35.9 (gm/dl) PLT 286 141 - 320 (K/cmm) RDW-CV 16.7 (*) 11.7 - 14.6 (%) Neutrophils 61.0 45.5 - 79.7 (%) Lymphocytes 32.0 15.0 - 46.8 (%) Monocytes 4.0 1.8 - 12.0 (%) Eosinophils 3.0 0.6 - 6.9 (%) ABS Neutrophils 3.40 2.20 - 8.85 (K/cmm) ABS Lymphs 1.79 1.09 - 3.30 (K/cmm) ABS Monocytes 0.22 0.1 - 0.8 (K/cmm) ABS Eosinophils 0.17 0.03 - 0.61 (K/cmm) RBC Morphology 1+ Type of Diff: Manual Radiology orders: None Procedures Course: A medical screening exam was performed. Patient appears well, and only has RUQ with deep palpation. Given mildly elevated LFT's today, advised her that once her treatment at [facility] is done (2 more weeks), she should follow up with hepatology at [facility] (where she was previously followed for her hepatitis C). Patient agrees to make this appointment. Quantatative HCG < 4. Left message for radha Churchill to contact me tomorrow to advise her of plan. She will FU with Triage Register Nurse in 1 month if her normal menses does no resume. Disposition: Discharged The patient's pain was managed to an adequate level weighing risk vs. benefit of further medications. Upon departure from the [facility], the patient's pain was 0 on a zero to ten scale. Condition at departure from the [facility]: Good 1. Abdominal bloating POCT URINE DIPSTICK, TEST, URINE, POCT URINE DIPSTICK, TEST, URINE, HCG, COMPREHENSIVE METABOLIC PANEL (CMP), HEMAGRAM AND DIFFERENTIAL, HCG, COMPREHENSIVE METABOLIC PANEL (CMP), HEMAGRAM AND DIFFERENTIAL 2. Elevated liver function tests Dr. Torrie Barboza was available for consultation during my care of this patient. MDM Number of Diagnoses or Management Options Abdominal bloating: Elevated liver function tests: Amount and/or Complexity of Data Reviewed Clinical lab tests: ordered and reviewed Risk of Complications, Morbidity, and/or Mortality Presenting problems: moderate Diagnostic procedures: low Management options: low 02/09/2012 15:41 Sarai Costa RN - 02/08/2012 1412 EDT Patient is 4 months( on 02/15) post . Reports spotty period on 12/12, unprotected sex end of December, used morning after pill, and no menstrual periods since then. Reports chronic fatigue, chronic chills,and abdominal bloating. Denies pain, nausea,vomiting, breast changes. Currently at [facility] for rehab. Reports has been drug free for 2 weeks. Labs drawn at [facility] February 03, and patient referred to [facility] today for further workup. Estrada Lester - 02/08/2012 1359 EDT Pt asked to provide a clean-catch urine sample. documented in this encounter Miscellaneous Notes Scanned Note-Null - BRIDGE WELDER, SCAN 2 - 02/12/2012 0800 EDT documented in this encounter Plan of Treatment Not on filedocumented as of this encounter Procedures Procedure Name Priority Date/Time Associated Comments Diagnosis COMPLETE BLOOD COUNT STAT 02/08/2012 14:55 Abdominal bloati ng Results for this AND DIFFERENTIAL EDT procedure a re in the results section. QUANT BETA HCG, STAT 02/08/2012 14:55 Abdominal bloating Re sults for this EDT procedure are i n the results section. COMPREHENSIVE STAT 02/08/2012 14:55 Abdominal bloating Resu lts for this METABOLIC PANEL (CMP) EDT proced ure are in the results section. TEST, URINE STAT 02/08/2012 14:25 Abdominal bloat ing Results for this EDT procedure are i n the results section. POCT URINE DIPSTICK, STAT 02/08/2012 14:22 Abdominal bloati ng Results for this CLINITE[facility] EDT procedure are i n the results section. documented in this encounter Results (ABNORMAL) HEMAGRAM AND DIFFERENTIAL (02/08/2012 14:55 EDT) P athologist Signature WBC 5.58 4.0 - 12.4 [facility] K/cmm [facility] RBC 4.27 3.86 - 5.04 [facility] M/cmm [facility] Hemoglobin 11.4 (L) 11.6 - 15.2 [facility] gm/dl LAB HCT 34.6 (L) 34.9 - 44.4 [facility] % LAB MCV 81 81 - 98 fl [facility] MCH 26.6 (L) 26.7 - 33.3 [facility] pg LAB MCHC 32.9 32.1 - 35.9 [facility] gm/dl LAB PLT 286 141 - 320 [facility] K/cmm LAB RDW-CV 16.7 (H) 11.7 - 14.6 [facility] % LAB Comment: Performed at [facility], [place], [place] Neutrophils 61.0 45.5 - 79.7 % [facility] Lymphocytes 32.0 15.0 - 46.8 % [facility] Monocytes 4.0 1.8 - 12.0 % [facility] LA B Eosinophils 3.0 0.6 - 6.9 % [facility] L AB ABS Neutrophils 3.40 2.20 - 8.85 K/cmm FLETCH ER [facility] ABS Lymphs 1.79 1.09 - 3.30 K/cmm [facility] AL [facility] ABS Monocytes 0.22 0.1 - 0.8 K/cmm [facility] A LLEN LAB ABS Eosinophils 0.17 0.03 - 0.61 K/cmm [facility] RBC Morphology 1+ [facility] Comment: Anisocytosis Type of Diff: Manual [facility] L AB Comment: Performed at [facility], [place], [place] Specimen Anatomical Collection Method Collection Time Receive d Time (Source) Location / / Volume Laterality Blood specimen 02/08/2012 14:55 2 (specimen) EDT 15:12 EDT Stephy Anne CADDIE PACKAGES & DNA PROBE ORDERAB LES Performing Organization Address City/State/ZIP Code Phon e Number [facility] [address] [place] [address] SERVICES [facility] [address] [place] [address] (ABNORMAL) COMPREHENSIVE METABOLIC PANEL (CMP) (02/08/2012 14:55 EDT) Analysis Performed At Patho logist Time Signature Potassium 4.7 3.5 - 5.0 [facility] mEq/L [facility] Sodium 142 136 - 145 [facility] mEq/L [facility] Chloride 101 96 - 110 [facility] mEq/L [facility] CO2 30 24 - 32 [facility] mEq/L [facility] Total Alkaline 64 38 - 126 [facility] Phosphatase U/L [facility] Bilirubin, Total 0.5 0.2 - 1.3 [facility] mg/dl [facility] AST 73 (H) 15 - 46 [facility] U/L [facility] ALT 62 (H) 9 - 52 U/L [facility] Albumin 4.2 3.4 - 4.9 [facility] g/dl [facility] Total Protein 7.9 6.5 - 8.3 [facility]IA g/dl [facility] Creatinine 0.70 0.52 - GARCIA 1.04 mg/dl [facility] GFR, Calculated >60 >60 [facility] ml/min/1.7 [facility] 3m2 BUN 17 10 - 26 [facility] mg/dl [facility] Calcium 9.0 8.5 - 10.5 [facility] mg/dl [facility] Calculated 9.2 8.5 - 10.5 [facility] Calcium mg/dl [facility] Glucose, Serum 68 (L) 70 - 100 [facility] mg/dl [facility] Fasting? Unknown [facility] Comment: Performed at [facility], [place], [place] Specimen Anatomical Collection Method Collection Time Receive d Time (Source) Location / / Volume Laterality Blood specimen 02/08/2012 14:55 2 (specimen) EDT 15:12 EDT Stephy Anne CADDIE CHEMISTRY & BLOOD GAS ORDERA BLES Performing Organization Address City/State/ZIP Code Phon e Number [facility] [address] [place] [address] SERVICES [facility] [address] [place] [address] HCG (02/08/2012 14:55 EDT) athologist Signature Quant Beta HCG, <5 <5 mIU/ml [facility] Preg LAB Comment: Reference Range: Negative = <5 Indeterminate = 5-25 recommend repeat in 48 hours. Positive = >25 Specimen Anatomical Collection Method Collection Time Receive d Time (Source) Location / / Volume Laterality Blood specimen 02/08/2012 14:55 2 (specimen) EDT 15:12 EDT Stephy Anne CADDIE CHEMISTRY & BLOOD GAS ORDERA BLES Performing Organization Address City/[facility]/ZIP Code Phon e Number [facility] [address] [place] [address] SERVICES [facility] [address] [place] [address] TEST, URINE (02/08/2012 14:25 EDT) athologist Signature Result-Pregnan Negative JOSE cy Test, Ur [facility] Comment: NOTE: False negative results may occur in women who are beyond 5-8 weeks gestation. Diagnosis of should be based on a correlation of test results with typical clinical signs and symptoms. Performed at [facility], [place], [place] Specimen Anatomical Collection Method Collection Time Receive d Time (Source) Location / / Volume Laterality Urine 02/08/2012 14:25 02/08/2012 (substance) EDT 14:31 EDT Torrie Barboza MD URINALYSIS ORDERABLES Performing Organization Address City/[facility]/ZIP [facility] Phon [place] Number [facility] [address] [place] [address] SERVICES [facility] [address] [place] [address] (ABNORMAL) POCT URINE DIPSTICK (02/08/2012 14:22 EDT) [facility] Method Time Signature Color YELLOW [facility] Clarity, UA Clear [facility] Glucose Neg Neg [facility] Bilirubin Neg Neg [facility] Ketones Trace (A) Neg [facility] Specific Cardwell 1.025 1.001 - GARCIA 1.035 [facility] Blood Neg Neg [facility] pH 7.0 4.6 - 8.0 [facility] Protein Trace (A) Neg [facility] Urobilinogen 0.2 0.2 - 1.0 GARCIA E.U./dl [facility] Nitrite Neg Neg [facility] Leuk Esterase Neg Neg [facility] jacquard plate maker ID [id number] [facility] Comment: Test performed at [facility] [place] Specimen Anatomical Collection Method Collection Time Receive d Time (Source) Location / / Volume Laterality Urine 02/08/2012 14:22 02/08/2012 (substance) EDT 14:26 EDT Torrie Barboza MD POINT OF CARE TEST ORDERABLE S Performing Organization Address [facility]/ZIP [facility] Phon e Number [facility] [address] [place] [address] SERVICES [facility] [address] [place] [address] documented in this encounter Visit Diagnoses Diagnosis Abdominal bloating Flatulence, eructation, and gas pain Elevated liver function tests Other abnormal blood chemistry documented in this encounter Historical Medications This list may reflect changes made after this encounter. Medication Sig Dispensed Refills Start Date End Date trazodone (DESYREL) 50 mg Take 50 mg by mouth 0 12/30/2017 tablet at bedtime. added in this encounter Care Teams Curing Room Supervisor Relationship Specialty Start Date End Date Guillaume Kumar MD PCP - General 05/18/11 12/07/17 documented as of this encounter
--- OUTSIDE RECORDS SUMMARY | 2022-07-17 05:17 | XMS_ITS | Encounter Summary ---
:1990 Author Organization [facility] Address [address] [place] [address] Care Team Providers Name Role Phone Md JUAN JOSE Barber Primary Care Provider Unavailable Encounter Details Date Type Department Care Team Description 02/12/2010 Results Only [facility] Izabella Linton CNM Laboratory Services - [address] [facility] [place] [address] [address] [facility] [place] [address] [phone] Social History Tobacco Use Types Packs/Day Years Used Date Smoking Tobacco: Never Assessed Sex Assigned at Date Recorded Not on file documented as of this encounter Plan of Treatment Not on filedocumented as of this encounter Procedures Procedure Name Priority Date/Time Associated Diagnosis Comme [facility] CYTOPATHOLOGY Routine 02/12/2010 0:00 EDT Results for this procedure are i n the results section . documented in this encounter Results CYTOPATHOLOGY (02/12/2010 0:00 EDT) Component Value Ref Test Analysis Performed At [facility] Pathology CYTOPATHOLOGY REPORT ? JOSE Report: ? [facility] Reports generated via electr onic interface contain original data; ? however they are lacking the format of the original report. ? Caution should be taken when reading/interpreting unformatted reports. ? Name: ? INA ORELLANA ? Accession #: ? [id number] ? : ? 1990 (Age: 19) ??F ?Collect Date: ? 02/12/2010 ? Location: ? [facility] ? Receive Date: ? 02/13/2010 ? Provider: ?IFTIKHARA XANDER G CNM ? Copy to: ? Specimen/Source: [...] significance (ASC-US). ? EDUCATIONAL NOTES/RECOMMENDA TIONS ? [facility] recommends dara horowitz the 2006 Consensus Guidelines for the Management of Women with Abnormal Cervi grace Cancer Screening Tests (JLGTD, ? 2007;11(4):201-222). ??Conse nsus guidelines are available online at ? www.ASCCP.org. ? Document reviewed and electr onically signed by: ? Hunter Brownlee MD ? Report Date: ??2009 11:42 ? End of Report ? Specimen (Source) Anatomical Location Collection Method / Collectio n Time Received Time / Laterality Volume 02/12/2010 02/13/2010 Izabella Linton CNM PATHOLOGY ORDERABLES Performing Organization Address City/State/ZIP Code Phon e Number [facility] [address] [place] [address] SERVICES [facility] [address] [place] [address] documented in this encounter Visit Diagnoses Not on filedocumented in this encounter Care Teams Sales Enablement Consultant Relationship Specialty Start Date End Date Md Barber MD PCP - General 02/13/10 02/19/10 documented as of this encounter
--- OUTSIDE RECORDS SUMMARY | 2022-07-17 05:17 | XMS_ITS | Encounter Summary ---
:1990 Author Organization [facility] Address [address] [place] [address] Care Team Providers Name Role Phone Nick Kumar MD Primary Care Provider Unavailable Encounter Details Date Type Department Care Team Description 06/01/2011 Documentation Visit [facility] en Women's Services - Gamal Matute MD [place] [address] [place] [address] [id number] Social History Tobacco Use Types Packs/Day Years Used Date Smoking Tobacco: Every Day Cigarettes 0.5 Alcohol Use Standard Drinks/Week Comments No 0 (1 standard drink = 0.6 oz pure alcoho l) Sex Assigned at Date Recorded Not on file documented as of this encounter Progress Notes Rosario Capellan - 06/01/2011 0841 EDT Ultrasound report received from [facility] in [facility]. Report sent to scanning. See scan/media tab in [facility]. ED 10/18/2011. documented in this encounter Plan of Treatment Not on filedocumented as of this encounter Visit Diagnoses Not on filedocumented in this encounter Care Teams Box Printer Relationship Specialty Start Date End Date Nick Kumar MD PCP - General 05/18/11 12/07/17 documented as of this encounter
--- OUTSIDE RECORDS SUMMARY | 2022-07-17 05:17 | XMS_ITS | Encounter Summary ---
:1990 Author Organization [facility] Address [address] [place] [address] Care Team Providers Name Role Phone Nick Kumar MD Primary Care Provider Unavailable Encounter Details Date Type Department Care Team Description 06/02/2011 Orders Only [facility] Natalee Arvizu, RN Drug dependence, Women's Services - [address] [facility] antepartum ([place] [address] Dx) [address] [place] [address] Social History Tobacco Use Types Packs/Day Years Used Date Smoking Tobacco: Every Day Cigarettes 0.5 Alcohol Use Standard Drinks/Week Comments No 0 (1 standard drink = 0.6 oz pure alcoho l) Sex Assigned at Date Recorded Not on file documented as of this encounter Plan of Treatment Not on filedocumented as of this encounter Visit Diagnoses Diagnosis Drug dependence, antepartum(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
--- OUTSIDE RECORDS SUMMARY | 2022-07-17 05:17 | XMS_ITS | Encounter Summary ---
:1990 Author Organization [facility] Address [address] [place] [address] Care Team Providers Name Role Phone Nick Kumar MD Primary Care Provider Unavailable Encounter Details Date Type Department Care Team Description 01/04/2014 Results Only [facility] Yobani Gill MD [phone] [place] [address] Social History Tobacco Use Types Packs/Day Years [...] PAP TEST- RESULT ONLY (01/04/2014 0:00 EDT) Component Value Ref Test Analysis Performed At [facility] Method Time Signature Pathology CYTOPATHOLOGY REPORT [facility] Report: [facility] Reports generated via electronic interface contain original data; however they are lacking the format of the original report. Caution should be taken when reading/interpreting unformatte d reports. Name: ? INA ORELLANA ? Accession #: ? [id number] : ? 1990 (Age: 23) ??F ?Collect Date: ? 01/04/2014 Location: ? [facility] ? Receive Date: ? 01/05/2014 Provider: ?YOBANI GILL MD Copy to: ?JOSÉ LUIS PHAM MD ? Specimen/Source: ? Pap Test, Cervix/Endocervix, ThinPrep Imaging System with manual evaluation Last Menstrual Period: ? Menstrual/ Status: ? Menorrhagia Other: ? Additional clinical information: Hep C+, last pap 2010 ? SPECIMEN ADEQUACY ? Satisfactory for Evaluation - transformation zone component present - scant squamous epithelial component secondary to excessive blood GENERAL CATEGORIZATION ? Negative for Intraepithelial Lesion or Malignancy INTERPRETATION ? Reactive cellular ramesh nges associated with inflammation present (includes repair). ? Document reviewed and electronically signed by: ? NIESHA LOUIS MD ? Report Date: ??01/16/2014 17:08 End of Report Specimen (Source) Anatomical Location Collection Method / Collectio n Time Received Time / Laterality Volume 01/04/2014 01/05/2014 Yobani Gill MD PATHOLOGY ORDERABLES Performing Organization Address City/State/ZIP Code Phon e Number [facility] [address] [place] [address] SERVICES [facility] [address] [place] [address] documented in this encounter Visit Diagnoses Not on filedocumented in this encounter Care Teams Filling Mixer Relationship Specialty Start Date End Date Nick Kumar MD PCP - General 05/18/11 12/07/17 documented as of this encounter
--- OUTSIDE RECORDS SUMMARY | 2022-07-17 05:17 | XMS_ITS | Encounter Summary ---
:1990 Author Organization [facility] Address [address] [place] [address] Care Team Providers Name Role Phone Nick Kumar MD Primary Care Provider Unavailable Reason for Visit Reason Onset Date Comments Other 06/01/2011 Encounter Details Date Type Department Care Team Description 06/01/2011 Telephone [facility] Women's Ashley Tolentino LICSW Other Services - [facility] [address] [facility] [address] [place], [place] [address] [place] [address] [phone] Social History Tobacco Use Types Packs/Day Years Used Date Smoking Tobacco: Every Day Cigarettes 0.5 Alcohol Use Standard Drinks/Week Comments No 0 (1 standard drink = 0.6 oz pure alcoho l) Sex Assigned at Date Recorded Not on file documented as of this encounter Miscellaneous Notes Telephone Encounter - Ashley Tolentino LICSW - 06/01/2011 1894 EDT Ina returned my phone call. Discussed recommendation for her to go to rehab before we can starttreatment. She was argumentative and upset. She does not want to go to [place] or rehab. She just wantsbup. Treatment. She hung up the phone and did not complete the conversation and no plan was established. RADHA Monte documented in this encounter Plan of Treatment Not on filedocumented as of this encounter Visit Diagnoses Not on filedocumented in this encounter Care Teams Epic Ambulatory Analysts Relationship Specialty Start Date End Date Nick Kumar MD PCP - General 05/18/11 12/07/17 documented as of this encounter
--- OUTSIDE RECORDS SUMMARY | 2022-07-17 05:17 | XMS_ITS | Encounter Summary ---
:1990 Author Organization [facility] Address [address] [place] [address] Care Team Providers Name Role Phone Nick Kumar MD Primary Care Provider Unavailable Encounter Details Date Type Department Care Team Description 05/28/2011 Results Only [facility] Amos Belle MD Women's Services - [facility] [address] [place] [phone] [place] [address] [place], [place] [id number] Social History Tobacco Use Types Packs/Day Years [...] PAP TEST- RESULT ONLY (05/28/2011 0:00 EDT) Component Value Ref Test Analysis Performed At [facility] Method Time Signature Pathology CYTOPATHOLOGY REPORT ? JOSE Report: ? [facility] Reports generated via electr onic interface contain original data; ? however they are lacking the format of the original report. ? Caution should be taken when reading/interpreting unformatted reports. ? Name: ? INA ORELLANA ? Accession #: ? [id number] ? : ? 1990 (Age: 21) ??F [...] ? EDUCATIONAL NOTES/RECOMMENDA TIONS ? FA recommends follo wing the 2006 Consensus Guidelines for the Management of Women with Abnormal Cervi grace Cancer Screening Tests (JLGTD, ? 2007;11(4):201-222). ??Conse nsus guidelines are available online at ? www.ASCCP.org. ? Document reviewed and electr onically signed by: ? DARCY FARIAS MD ? Report Date: ??09/30/ 2011 13:15 ? End of Report ? Specimen (Source) Anatomical Location Collection Method / Collectio n Time Received Time / Laterality Volume 05/28/2011 05/29/2011 Amos Belle MD PATHOLOGY ORDERABLES Performing Organization Address City/State/ZIP Code Phon e Number [facility] [address] [place] [address] SERVICES [facility] [address] [place] [address] documented in this encounter Visit Diagnoses Not on filedocumented in this encounter Care Teams Drive In Theater Attendant Relationship Specialty Start Date End Date Nick Kumar MD PCP - General 05/18/11 12/07/17 documented as of this encounter
--- OUTSIDE RECORDS SUMMARY | 2022-07-17 05:17 | XMS_ITS | Encounter Summary ---
:1990 Author Organization [facility] Address [address] [place] [address] Care Team Providers Name Role Phone Timothy Bliss MD Primary Care Provider Reason for Visit Reason Onset Date Comments Other 12/16/2017 schedule OR for 12/20 Encounter Details Date Type Department Care Team Description 12/16/2017 Telephone [facility] Britany Dumont, [facility] er (schedule OR Cardiothoracic Surgery - for 12/20) [address] [facility] ALESSIO [address] [place] [address] [place] [phone] (Wo rk) Social History Tobacco Use [...] types. Surgeon made aware. Antibiotic Prophylaxis Handout [employer] for Prevention of Infective Bacterial [...] inspirometer as instructed by Inpatient Nursing Staff Telephone Encounter - Shahrzad Cox - 12/16/2017 0959 [...] filedocumented in this encounter Care Teams Director Of Pulmonary Unit Relationship Specialty Start Date End Date Timothy Bliss MD PCP - General 12/08/17 [place] [address] documented as of this encounter
--- OUTSIDE RECORDS SUMMARY | 2022-07-17 05:17 | XMS_ITS | Encounter Summary ---
:1990 Author Organization [facility] Address [address] [place] [address] Care Team Providers Name Role Phone Timothy Bliss MD Primary Care Provider Encounter Details Date Type Department Care Team Description 12/19/2017 Results Only Imaging [facility]- Charlie Daniel MD [address] [phone] [place] [phone] Social History Tobacco Use Types Packs/Day Years [...] on filedocumented in this encounter Care Teams Cranberry Grower Relationship Specialty Start Date End Date Timothy Bliss MD PCP - General 12/08/17 [address] [place] [address] documented as of this encounter
--- OUTSIDE RECORDS SUMMARY | 2022-07-17 05:17 | XMS_ITS | Encounter Summary ---
:1990 Author Organization [facility] Address [address] [place] [address] Care Team Providers Name Role Phone Nick Kumar MD Primary Care Provider Unavailable Encounter Details Date Type Department Care Team Description 05/27/2011 Orders Only [facility] Anita Mendes Preg nant state, incidental; Women's Services - MD [facility] depe terri, antepartum [facility] [address] [place] [address] Social History Tobacco Use Types Packs/Day Years [...] Results BACTERIAL CULTURE, URINE (05/28/2011 15:13 EDT) [facility] Method Time Signature Specimen Urine GARCIA Description [facility] Result Less than JOSE 10,000 [facility] CFU/ml Mixed gram positive growth Report Status Final GARCIA 05/29/2011 [facility] Specimen Anatomical Collection Method Collection Time Receive d Time (Source) Location / / Volume Laterality Urine 05/28/2011 15:13 05/28/2011 (substance) EDT 15:41 EDT Pavel Interiano MD MICROBIOLOGY - GENERAL ORDER CURTIS Performing Organization Address City/State/ZIP Code Phon e Number [facility] [address] [place] [address] SERVICES [facility] [address] [place] [address] CHLAMYDIA/GC AMPLIFIED (05/28/2011 10:45 EDT) Component Value Ref Test Analysis Performed At [facility] gist Range Method Time Signature Specimen Endocervix GARCIA Description [facility] Chlamydia No Chlamydia GARCIA Result trachomatis DNA [facility] detected by manufacturing engineer supervisor mediated amplification. GC Result No Neisseria GARCIA gonorrhoeae DNA [facility] detected by manufacturing engineer supervisor mediated amplification. 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
--- OUTSIDE RECORDS SUMMARY | 2022-07-17 05:17 | XMS_ITS | Encounter Summary ---
:1990 Author Organization [facility] Address [address] [place] [address] Care Team Providers Name Role Phone Nick Kumar MD Primary Care Provider Unavailable Encounter Details Date Type Department Care Team Description 02/04/2012 Hospital Encounter [facility] - Devang Callaway [address] MD [address] [place] [address] Social History Tobacco Use Types Packs/Day Years [...] on filedocumented in this encounter Care Teams Plating Machine Operator Relationship Specialty Start Date End Date Nick Kumar MD PCP - General 05/18/11 12/07/17 documented as of this encounter
--- OUTSIDE RECORDS SUMMARY | 2022-07-17 05:17 | XMS_ITS | Encounter Summary ---
:[address] [facility] Address [address] [place] [address] Care Team Providers Name Role Phone Nick Kumar MD Primary Care Provider Unavailable Encounter Details Date Type Department Care Team Description 02/04/2012 Results Only [facility]- Domingo Callaway MD [facility] [phone] Social History Tobacco Use Types Packs/Day Years Used Date Smoking Tobacco: Every Day Cigarettes 0.5 Alcohol Use Standard Drinks/Week Comments No 0 (1 standard drink = 0.6 oz pure alcoho l) Sex Assigned at Date Recorded Not on file documented as of this encounter Plan of Treatment Not on filedocumented as of this encounter Procedures Procedure Name Priority Date/Time Associated Comments Diagnosis TESTS ADDED BY PHONE Routine 02/04/2012 7:40 Resu lts for this EDT procedure are i n the results section. COMPLETE BLOOD COUNT Routine 02/04/2012 7:40 Resu lts for this EDT procedure are i n the results section. HIV 1/2 ANTIGEN AND Routine 02/04/2012 7:40 Resul ts for this ANTIBODY, 4TH EDT procedure are in GENERATION the results section. COMPREHENSIVE Routine 02/04/2012 7:40 Results for this METABOLIC PANEL (CMP) EDT proced ure are in the results section. documented in this encounter Results HIV 1/2 ANTIBODY (02/04/2012 7:40 EDT) P athologist Signature HIV 1/2 Negative [facility] Comment: Reference Range: ??Negative Assayed utilizing Table8 Clinical Albireo tics chemiluminescent technology. Specimen Anatomical Collection Method Collection Time Receive d Time (Source) Location / / Volume Laterality 02/04/2012 7:40 02/04/2012 EDT 15:36 EDT Domingo Callaway MD IMMUNOLOGY AND SEROLOGY ALKA DURAND Performing Organization Address City/State/ZIP Code Phon e Number [facility] [address] [place] [address] SERVICES [facility] [address] [place] [address] TESTS ADDED BY PHONE (02/04/2012 7:40 EDT) P athologist Signature Tests to be HIV [facility] added LAB Diagnosis Code FATIGUE [facility] Who Called [facility] Location Code NMLF [facility] Read Y [facility] Back/Confirmed LAB ? Specimen Anatomical Collection Method Collection Time Receive d Time (Source) Location / / Volume Laterality 02/04/2012 7:40 02/04/2012 EDT 15:36 EDT Domingo Callaway MD CHEMISTRY & BLOOD GAS ORDERGiovani CISNEROS Performing Organization Address City/[facility]/ZIP Code Phon e Number [facility] [address] [place] [address] SERVICES [facility] [address] [place] [address] (ABNORMAL) COMPREHENSIVE METABOLIC PANEL (CMP) (02/04/2012 7:40 EDT) Analysis Performed At Patho logist Time Signature Potassium 4.4 3.5 - 5.0 GARCIA mEq/L [facility] Sodium 144 136 - 145 GARCIA mEq/L [facility] Chloride 108 96 - 110 GARCIA mEq/L [facility] CO2 27 24 - 32 GARCIA mEq/L [facility] Total Alkaline 52 38 - 126 GARCIA Phosphatase U/L [facility] Bilirubin, Total <0.5 0.2 - 1.3 GARCIA mg/dl [facility] AST 25 15 - 46 GARCIA U/L [facility] ALT 29 9 - 52 U/L [facility] Albumin 3.0 (L) 3.4 - 4.9 GARCIA g/dl [facility] Total Protein 6.0 (L) 6.5 - 8.3 GARICA g/dl [facility] Creatinine 0.67 0.52 - GARCIA 1.04 mg/dl [facility] GFR, Calculated >60 >60 GARCIA ml/min/1.7 [facility] 3m2 BUN 9 (L) 10 - 26 GARCIA mg/dl [facility] Calcium 8.4 (L) 8.5 - 10.5 GARCIA mg/dl [facility] Calculated 9.8 8.5 - 10.5 GARCIA Calcium mg/dl [facility] Glucose, Serum 82 70 - 100 GARCIA mg/dl [facility] Fasting? No [facility] Specimen Anatomical Collection Method Collection Time Receive d Time (Source) Location / / Volume Laterality 02/04/2012 7:40 02/04/2012 EDT 15:36 EDT Domingo Callaway MD CHEMISTRY & BLOOD GAS ORDERA BLES Performing Organization Address City/[facility] Phon e Number [facility] [address] [place] [address] SERVICES [facility] [address] [place] [address] (ABNORMAL) HEMAGRAM (02/04/2012 7:40 EDT) P athologist Signature WBC 4.36 4.0 - 12.4 [facility] K/cmm LAB RBC 3.82 (L) 3.86 - 5.04 [facility] M/cmm LAB Hemoglobin 10.2 (L) 11.6 - 15.2 [facility] gm/dl LAB HCT 30.7 (L) 34.9 - 44.4 [facility] % LAB MCV 80 (L) 81 - 98 fl [facility] MCH 26.6 (L) 26.7 - 33.3 [facility] pg LAB MCHC 33.0 32.1 - 35.9 [facility] gm/dl LAB PLT 246 141 - 320 [facility] K/cmm LAB RDW-CV 17.7 (H) 11.7 - 14.6 [facility] % LAB Specimen Anatomical Collection Method Collection Time Receive d Time (Source) Location / / Volume Laterality 02/04/2012 7:40 02/04/2012 EDT 15:36 EDT Domingo Callaway MD HEMATOLOGY & PF4 ORDERABLES Performing Organization Address City/[facility]/ZIP Code Phon e Number [facility] [address] [place] [address] SERVICES [facility] [address] [place] [address] documented in this encounter Visit Diagnoses Not on filedocumented in this encounter Care Teams Dinkey Engine Firer Relationship Specialty Start Date End Date Nick Kumar MD PCP - General 05/18/11 12/07/17 documented as of this encounter
--- OUTSIDE RECORDS SUMMARY | 2022-07-17 05:17 | XMS_ITS | Encounter Summary ---
:1990 Author Organization [facility] Address [address] [place] [address] Care Team Providers Name Role Phone Ncik Kumar MD Primary Care Provider Unavailable Encounter Details Date Type Department Care Team Description 04/19/2012 Hospital Encounter [facility] - Imtiaz George [place] [address] [phone] (Wo rk) Social History Tobacco Use Types [...] on filedocumented in this encounter Care Teams Cloth Piecer Relationship Specialty Start Date End Date Nick Kumar MD PCP - General 05/18/11 12/07/17 documented as of this encounter
--- OUTSIDE RECORDS SUMMARY | 2022-07-17 05:17 | XMS_ITS | Encounter Summary ---
:1990 Author Organization [facility] Address [address] [place] [address] Care Team Providers Name Role Phone Nick Kumar MD Primary Care Provider Unavailable Encounter Details Date Type Department Care Team Description 06/01/2011 Documentation Visit [facility] Carla Arana MD Obstetrics & [address] [place], [place] [address]ue Midwifery - [facility], [facility], Level 4 [address] [place] [phone] (Wo rk) Social History Tobacco Use Types [...] methadone or admit to residential. Could consider [place] as a resident (we would admit to start bup then goes to [place]). Bup prescriptions would be contingent on being at [place]; if left then to methadone. Aline Arana MD documented in this encounter Plan of Treatment Not on filedocumented as of this encounter Visit Diagnoses Not on filedocumented in this encounter Care Teams Market Research Intern Relationship Specialty Start Date End Date Nick Kumar MD PCP - General 05/18/11 12/07/17 documented as of this encounter
--- OUTSIDE RECORDS SUMMARY | 2022-07-17 05:17 | XMS_ITS | Encounter Summary ---
:[address] [facility] Address [address] [place] [address] Care Team Providers Name Role Phone José Luis Carballo MD Primary Care Provider Encounter Details Date Type Department Care Team Description 03/11/2011 Results Only [facility] Tarun Elizondo, [facility] Laboratory Services [place], [place] [address] [place], [place] [id number] [phone] Social History Tobacco Use Types Packs/Day Years [...] PAP TEST- RESULT ONLY (03/11/2011 0:00 EDT) Component Value Ref Test Analysis Performed At [facility] Method Time Signature Pathology CYTOPATHOLOGY REPORT ? JOSE Report: ? [facility] Reports generated via electr onic interface contain original data; ? however they are lacking the format of the original report. ? Caution should be taken when reading/interpreting unformatted reports. ? Name: ? INA ORELLANA ? Accession #: ? [id number] ? : ? 1990 (Age: 21) ??F ?Collect Date: ? 03/11/2011 ? Location: ? [facility] ? R eceive Date: ? 03/13/2011 ? Provider: MARIA ELENA ELIZONDO CNM ? Copy to: JOSÉ LUIS [...] diagnosis. ? End of Report ? Specimen (Source) Anatomical Location Collection Method / Collectio n Time Received Time / Laterality Volume 03/11/2011 03/13/2011 Maria Elena Elizondo CNM PATHOLOGY ORDERABLES Performing Organization Address City/State/ZIP Code Phon e Number [facility] [address] [place] [address] SERVICES [facility] [address] [place] [address] documented in this encounter Visit Diagnoses Not on filedocumented in this encounter Care Teams Camera Supervisor Relationship Specialty Start Date End Date José Luis Carballo MD PCP - General 02/20/10 05/17/11 [facility] [address] [place] [address] documented as of this encounter
--- OUTSIDE RECORDS SUMMARY | 2022-07-17 05:17 | XMS_ITS | Encounter Summary ---
:1990 Author Organization [facility] Address [address] [place] [address] Care Team Providers Name Role Phone Nick Kumar MD Primary Care Provider Unavailable Reason for Visit Reason Comments Initial Visit Encounter Details Date Type Department Care Team Description 05/28/2011 Initial [facility] Unknown, Pro chris MD [place]: [id number] Women's Services - Anita Doyle MD [facility] [address] [place] [phone] Social History Tobacco Use Types Packs/Day Years [...] at approximately 18+3 weeks via U/S at three weeks ago. She states she was [...] She hopes to be prescribed subutex from [facility] during this . 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 He r child was transported to [facility] for scoring during her third . Her [...] reviewed. No pertinent past surgical history. Past RE EXAMINER History reviewed in Chart. Has hx of [...] Living Situation: Currently lives with boyfriend in [facility]. Not currently working. Review of Systems: Pertinent [...] (ABNORMAL) POCT URINE TEST (05/28/2011 16:57 EDT) [facility] [employer] Method Time Signature Positive (A) Reference POINT OF Test, Urine, Range, CARE POC Negative Control Line Yes POINT OF Present CARE Background Yes POINT OF Clear? CARE Specimen (Source) Anatomical Collection Method Collection Time Re ceived Time Location / / Volume Laterality Urine (substance) 05/28/2011 16:57 EDT Dean Belle MD POINT OF CARE TEST ORDERABLE S Performing Organization Address City/State/ZIP Code Phon e Number [facility] POINT OF CARE BACTERIAL CULTURE, URINE (05/28/2011 15:13 EDT) [facility] Method Time Signature Specimen Urine GARCIA Description [facility] Result Less than JOSE 10,000 [facility] CFU/ml Mixed gram positive growth Report Status Final [place] 05/29/2011 [facility] Specimen Anatomical Collection Method Collection Time Receive d Time (Source) Location / / Volume Laterality Urine 05/28/2011 15:13 05/28/2011 (substance) EDT 15:41 EDT Pavel Interiano MD MICROBIOLOGY - GENERAL ORDER CURTIS Performing Organization Address City/State/ZIP Code Phon e Number [facility] [address] [place] [address] SERVICES [place] [facility] [address] [place] [address] DRUG SCREEN COMPREHENSIVE (05/28/2011 15:13 EDT) Component Value Ref Test Analysis Performed At [facility] Range Method Time Signature Amphetamine Negative screen. Confirmatio n testing available upon request. Suitable for medical purposes GARCIA Screen, Urine only. Will not detect all drugs within c lass. Cutoff = 1000 ng/ml [facility] Barbiturate Negative screen. Confirmatio n testing available upon request. Suitable for medical purposes GARCIA Screen, Urine only. Will not detect all drugs within class. Cu toff = 300 ng/ml [facility] Benzodiazepine Negative screen. Confirmatio n testing available upon request. Suitable for medical purposes GARCIA Screen, Urine only. Will not detect all dr ugs within class. Assay less sensitive to Lorazepam and [facility] metabolites. Cutoff = 200 ng/ml Cannabinoid Scrn, Presumptive positive, interp ret with caution. Confirmation testing available upon request. GARCIA Ur Suitable for medical purpose s only. Will not detect all drugs within class. Cutoff = 50 ng/ml [facility] Cocaine Negative screen. Confirmatio n testing available upon request. Suitable for medical purposes GARCIA Metabolites, Ur only. Will not detect all dr ugs within class. Cutoff = 300 ng/ml [facility] Methadone Screen Negative screen. Confirmatio n testing available upon request. Suitable for medical purposes GARCIA only. Will not detect all drugs within class. Cutoff = 300 n g/ml [facility] Opiate Scrn, Ur Negative screen. Confirmatio n testing available upon request. Suitable for medical purposes GARCIA only. Will not detect all dr ugs within class. Cutoff = 300 ng/ml Assay less sensitive to [facility] oxycodone and metabolites. Assay does not detect methadone. Oxycodone Screen Negative screen. Confirmatio n testing available upon request. Suitable for medical purposes GARCIA only. Will not detect all drugs within class. 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
[2022-07-17 05:25] LABS: Source Nasal/Nares
[2022-07-17 05:28] LABS: HCT 30.9 % (36.0-46.0); HGB 9.9 g/dL (11.2-15.7); MCH 28.6 pg (27.0-33.0); MCV 89 fL (80-95); MPV 10.3 fL (8.0-11.0); Platelet Count 240 10^3/uL (130-400); RBC 3.46 10^6/uL (3.93-5.22); RDW-SD 45.4 fL; WBC 6.46 10^3/uL (4.4-10.8)
[2022-07-17 05:57] LABS: COVID-19 PCR Negative (Negative)
[2022-07-17 06:00] LABS: ALT 11 U/L (14-59); AST 18 U/L (15-37); Albumin 2.1 g/dL (3.4-5.0); Alkaline Phosphatase 219 U/L (46-116); Anion Gap 5.3 mmol/L (3-11); BUN 13 mg/dL (7-18); Bilirubin, Total 0.3 mg/dL (0.2-1.0); CO2 29.7 mmol/L (21.0-32.0); Calcium 8.7 mg/dL (8.5-10.1); Chloride 104 mmol/L (98-107); Estimated GFR 76.29 (mL/min/1.73m2); Glucose 80 mg/dL (74-106); Potassium 3.8 mmol/L (3.5-5.1); Sodium 139 mmol/L (136-145); TSH (W/Ref FT4) 2.54 uIU/mL (0.36-3.74); Total Protein 6.3 g/dL (6.4-8.2); Uric Acid 5.1 mg/dL (2.6-6.0)
[2022-07-17 06:01] LABS: LDH 190 U/L (81-234)
[2022-07-17 06:08] LABS: COMMENT (LAB VIEW ONLY) 144.66 mg/dL; PROTEIN 24.3 mg/dL; Prot/Crea Ur Ratio 0.16
[2022-07-17] MEDS: Penicillin G POT. 5,000,000 UNITS in Normal Saline 100 ML 200 UNITS IVPB (06:11)
--- NOTE | 2022-07-17 06:20 | HPE_ITS ---
Date of service: 07/17/22 Time of Service: 06:21 Assessment and Plan Assessment and plan (1) Hepatitis C: Status: Chronic Assessment and plan: LFTs pending (2) History of inadequate care: Status: Acute Assessment and plan: Pt is agreeable to immediately pp Levonorgestrel IUD. (3) Uterine contractions: Status: Acute Assessment and plan: early active labor. Labor analgesia discussed with anesthesia providers. anticipate . (4) Opioid dependence: Status: Acute Assessment and plan: Will verify Methadone dose with [facility]. Will avoid opiod agonist-antagonists (5) Cellulitis: Status: Acute Assessment and plan: Will continue abx while hospitalized. (6) Hx of hemorrhage, currently : Status: Acute Assessment and plan: Situational awareness at time of delivery OB-HPI Labor/Delivery History of Present Illness Reason for Visit: 41 wk Chief Complaint: Uterine Contractions. RICKEY Calculator Estimated Delivery Date Method Current WG Current Estimate 07/10/22 Ultrasound #1 41w 0d History of Present Expected Delivery Route/Plan Pt is a 32yo female currently 41w0d EGA by early 1st trimester OB u/s who was brought to ED via ambulance with contractions. No SROM per pt report. She states that her contractions began 2 days ago but worsened this evening. No vaginal bleeding. Specific Issues/Plan 1. No care except two ultrasounds @ [facility] 2. Opiate dependence - methadone 30mg/day. Pt reentered care at [facility] 3 weeks ago. Hx of being discharged from care at [facility] when not 2/2 non- compliance. Dose not verified. 3. UDS in November 2021: THC and cocaine+ 4. anatomy survey done @ 20 wks, nml w/placenta 2.1 cm from os 5. Bipolar disorder, anxiety, hx IVDA 6. Hx mitral valve replacement @ [facility] in 2018 7. s/p cholcystectomy 8. Polypharmacy: lorazapam, gabapentin, focalin, methadone, suboxone 9 Frequent ED visits. Narrative: After admission to and toxicology, serology testing performed. Some results currently pending. Requesting labor analgesia. 25mcg Fentanyl IV administered. GBS status unknown, will begin prophylactic PCN - unsure if there has been any SROM prior to admission. Informed Consent Informed Consent: Regional Anesthesia and Other (immediate Levonorgestrel IUD) Review of Systems Constitutional Constitutional: Reports as per HPI PFSH All Active Problems (Updated 07/17/22 @ 07:11 by Trudi Samuels MD) Hx of hemorrhage, currently (Acute) Hepatitis C (Chronic) History of inadequate care (Acute) Uterine contractions (Acute) (Acute) History of recurrent UTIs (Acute) Anxiety (Chronic) (Acute) Opioid dependence (Acute) Cellulitis (Acute) Methadone dependence (Chronic) Noncompliance with medication regimen (Acute) Lower extremity edema (Acute) Medical History (Updated 07/17/22 @ 07:11 by Trudi Samuels MD) Abdominal pain Abscess of left index finger Anxiety Arm numbness left Bipolar disorder Bronchitis Chest pain Cough Drug reaction Eloped from emergency department Endocarditis Endocarditis Frequent headaches GERD (gastroesophageal reflux disease) Headache History of intravenous drug abuse Iron deficiency anemia Left shoulder pain Nephrolithiasis Obesity Polysubstance abuse Reactive airway disease Surgical History S/P ERCP S/P laparoscopic cholecystectomy S/P mitral valve replacement 4 years ago at [facility] Family History Father Substance use disorder Social History Smoking/Tobacco Use Status: Current every day Tobacco Type: cigarettes Smoking risk assessment performed?: Yes Alcohol Intake: never Drug use: Daily Substance use type: heroin, opiates, painkillers and other Details: last used 2 days ago, pt states that she is feeling like she is begining to detox Do you feel safe at home: Yes Do you feel safe in your relationship?: Yes Additional Social history: homeless, bouncing around to different houses of friends. History History 5 Para 2 Hx # Term Pregnancies Multiple births Hx # Pregnancies Ectopic pregnancies AB induced Hx Number of Living Children AB spontaneous Meds Allergies and Home Medications Allergies Allergy/AdvReac Type Severity Reaction Status Date / Time No Known Drug Allergies Allergy Unverified 04/23/22 01:45 Home Medications Medication Instructions Recorded Confirmed Type gabapentin 800 mg tablet 800 mg PO TID 11/08/21 06/12/22 History dexmethylphenidate 30 mg 40 mg PO DAILY AM 11/15/21 06/12/22 History capsule,extended release [id number] (Focalin XR) Exam Physical Exam Vital signs: Pulse BP 80 132/95 H 07/17/22 05:44 07/17/22 05:44 Vital Signs Reviewed: Yes Notable Details: Blood pressure elevated. Narrative: Patient had systolic blood pressure 180 when being transported via ambulance. Constitutional Constitutional: moderate distress (Verbalizing with contractions.) Detailed Labor and Delivery Exam Dilation: 3 Effacement (%): 100 station: 0 Position: OA Cervix position: posterior Consistency: soft Rivers Score: Cervical Points Exam 0 1 2 3 Dilation Closed 1-2cm 3-4 cm 5-6cm Effacement 0-30% 40-50% 60-70% 80% Consistency Firm Medium Soft Station -3 -2 -1,0 +1,+2 Position Posterior Mid Anterior Amniotic Membrane Status: Intact Monitor Mode: External Contraction Frequency(min): q 2-3min Contraction Duration(sec): 50-60 Contraction Intensity: Moderate Fetus A Heart Rate Baseline: 140 Monitor Accelerations: 15 X 15 Monitor Decelerations: None Variability: Moderate (6-25 BPM) Presentation: Cephalic Categories: Category I Est. Weight: 3500 lb HEENT Exam HEENT Exam: Abnormal (Edentulous) Neck Exam Neck Exam: Abnormal (scarring on skin) Chest/Brest/Axilla Exam Chest Exam: Normal Breast Exam Breast Exam: Normal Respiratory Exam Respiratory Exam: Normal Cardiovascular Exam Cardiovascular Exam: Abnormal (murmur ) Abdominal Exam Abdominal Exam: Normal Rectal Exam Rectal Exam: Not Done Exam Exam: Normal Extremities Exam Extremities Exam: Abnormal (RLE cellulitis. Scars on both legs. Multiple bruises) Back/Spine/Pelvis Exam Back Exam: Normal Pelvis Adequate: Yes Skin Exam Skin Exam: Abnormal (cellulitis, lesion on R LE) Neurological Exam Neurological Exam: Normal Psychiatric Exam Psychiatric Exam: Normal Results Results Group Beta Strep: Done-Result Unknown Lab Results: labs pending. Rh status + with previous pregnancies. Abnormal Lab Findings: Abnormal Labs 07/17/22 07/17/22 05:15 05:15 RBC 3.46 L Hgb 9.9 L Hct 30.9 L ALT 11 L Alkaline Phosphatase 219 H Total Protein 6.3 L Albumin 2.1 L Risk Assessment Risks Reviewed Risks Reviewed Upon Admission: Yes
[2022-07-17] MEDS: fentaNYL 100 MCG/2 ML VIAL 25 MCG IVP ×6 (06:43→20:50)
--- NOTE | 2022-07-17 06:49 | ANES.PREOP_ITS ---
General Info Date of Service Date Performed: 07/17/22 Height: 5 ft 9 in Weight: 90.718 kg Body Mass Index (BMI): 29.5 Meds Allergies and Home Medications Allergies Allergy/AdvReac Type Severity Reaction Status Date / Time No Known Drug Allergies Allergy Unverified 04/23/22 01:45 Home Medication Medication Instructions Recorded gabapentin 800 mg tablet 800 mg PO TID 11/08/21 dexmethylphenidate 30 mg 40 mg PO DAILY AM 11/15/21 capsule,extended release [id number] (Focalin XR) Current Visit Medications: Current Medications Generic Name Dose Route Start Last Admin Trade Name Freq PRN Reason Stop Dose Admin Fentanyl 25 mcg 07/17/22 06:37 07/17/22 06:43 Fentanyl 100 Mcg/2 Ml Vial IVP 25 mcg Q30 MIN PRN PRN Administration Analgesia Sodium Chloride 500 mls @ 0 mls/hr 07/17/22 05:05 Saline 500ml Bag IV PRN PRN As Directed Ringer's Solution 1,000 mls @ 125 mls/hr 07/17/22 05:30 IV INFUSION GRACE Penicillin G Potassium 3,000, 50 mls @ 100 mls/hr 07/17/22 06:00 000 units/ Sodium Chloride IVPB Q4H GRACE Sodium Chloride 500 mls @ 0 mls/hr 07/17/22 05:58 Saline 500ml Bag IV PRN PRN As Directed IV Miscellaneous Supplies 1 each 07/17/22 05:15 Iv Access IV DIRECTED GRACE IV Miscellaneous Supplies 1 each 07/17/22 06:00 Iv Access IV DIRECTED GRACE Sodium Chloride 0 ml 07/17/22 05:05 Normal Saline Flush 10 Ml Syr IVP PRN PRN Sodium Chloride 0 ml 07/17/22 05:58 Normal Saline Flush 10 Ml Syr IVP PRN PRN PFSH Active Problems Active Problems: Problem Status Onset Code Hepatitis C B19.20 History of inadequate care O09.30 Uterine contractions O47.9 Z34.90 History of recurrent UTIs Z87.440 Anxiety F41.9 Z34.90 Opioid dependence F11.20 Cellulitis L03.90 Methadone dependence F11.20 Noncompliance with medication regimen Z91.14 Lower extremity edema R60.0 Medical History Medical History (Updated 07/17/22 @ 07:11 by Trudi Samuels MD) Abdominal pain Abscess of left index finger Anxiety Arm numbness left Bipolar disorder Bronchitis Chest pain Cough Drug reaction Eloped from emergency department Endocarditis Endocarditis Frequent headaches GERD (gastroesophageal reflux disease) Headache History of intravenous drug abuse Iron deficiency anemia Left shoulder pain Nephrolithiasis Obesity Polysubstance abuse Reactive airway disease Surgical History Surgical History S/P ERCP S/P laparoscopic cholecystectomy S/P mitral valve replacement 4 years ago at [facility] Tobacco Smoking/Tobacco Use Status: Current every day Tobacco Type: cigarettes Alcohol Alcohol Intake: never Substance Use Substance use: Daily Substance use type: heroin, opiates, painkillers and other Details: last used 2 days ago, pt states that she is feeling like she is begining to detox Prental History History 5 Para 2 Hx # Term Pregnancies Multiple births Hx # Pregnancies Ectopic pregnancies AB induced Hx Number of Living Children AB spontaneous Vital Signs and Lab Results Vital Signs Most Recent Vital Signs in EMR: Most Recent Vital Signs Pulse BP 80 132/95 H 07/17/22 05:44 07/17/22 05:44 Lab Results Result Diagrams: 07/17/22 05:15 07/17/22 05:15 Blood Type / Crossmatch: Patient ABO/Rh O Positive 07/17/22 Antibody Screen NEGATIVE 07/17/22 Complete Blood Count: White Blood Count 6.46 10^3/uL (4.4-10.8) 07/17/22 05:15 Red Blood Count 3.46 10^6/uL (3.93-5.22) L 07/17/22 05:15 Hemoglobin 9.9 g/dL (11.2-15.7) L 07/17/22 05:15 Hematocrit 30.9 % (36.0-46.0) L 07/17/22 05:15 Platelet Count 240 10^3/uL (130-400) 07/17/22 05:15 Complete Metabolic Panel: Sodium 139 mmol/L (136-145) 07/17/22 05:15 Potassium 3.8 mmol/L (3.5-5.1) 07/17/22 05:15 Chloride 104 mmol/L (98-107) 07/17/22 05:15 Carbon Dioxide 29.7 mmol/L (21.0-32.0) 07/17/22 05:15 BUN 13 mg/dL (7-18) 07/17/22 05:15 Creatinine 1.0 mg/dL (0.55-1.02) 07/17/22 05:15 Est GFR (CKD-EPI 2020) 76.29 (mL/min/1.73m2) 07/17/22 05:15 Calcium 8.7 mg/dL (8.5-10.1) 07/17/22 05:15 Albumin 2.1 g/dL (3.4-5.0) L 07/17/22 05:15 Glucose 80 mg/dL (74-106) 07/17/22 05:15 Liver Function Panel: Alanine Aminotransferase (ALT/SGPT) 11 U/L (14-59) L 07/17/22 0 5:15 Aspartate Amino Transf (AST/SGOT) 18 U/L (15-37) 07/17/22 05:15 Coagulation Panel: No Data to Display Cardiac Panel: No Data to Display Arterial Blood Gas: No Data to Display Venous Blood Gas: No Data to Display Pancreas Panel: No Data to Display Thyroid Panel: Thyroid Stimulating Hormone (TSH) 2.54 uIU/mL (0.36-3.74) 07/17 05:15 Infectious Disease: Coronavirus (COVID-19)(PCR) Negative (Negative) 07/17/22 05:00 Coronavirus 2019 Source Nasal/Nares 07/17/22 05:00 Blood Cultures: No Data to Display Toxicology Panel: No Data to Display Panel: No Data to Display Imaging and Studies Imaging and Studies Study information below may be from another EMR and interpreted by another provider. Please see original notes in EMR for more complete details. EKG Summary: 06/12/2022: Exam: Resting ECG Reason for Exam: CP Patient Location: E HR:77 bpm ECG Measurements Heart Rate 77 AXIS NV 251 P 61 QRSd 94 QRS 97 QT 370 T17 QTc 420 Conclusion Sinus rhythm...normal P axis, V-rate 60- 99 Prolonged NV interval...NV >210, V-rate 50- 90 Probable left atrial enlargement...P >50mS, <-0.10mV V1 Anesthesia Assessment and Plan Anesthesia History Personal History: No History of Anesthesia Complications Family History: No Family History of Anesthesia Complications Exercise Tolerance Exercise Tolerance: Metabolic Equivalents>4 Pertinent Negatives Pertinent Negatives: No Major Pulmonary Symptoms or Complaints Cardiac & Pulmonary Exam Cardiac Exam: Normal S1/S2 Heart Sounds Pulmonary Exam: Clear Bilateral Breath Sounds Implantable Cardiac Device Does patient have a Pacemaker or an ICD?: No Airway Exam Known Difficult Airway: No Mallampati Class: 2 Mouth Opening: Normal (> 3cm) Thyromental Distance: Greater than 3 cm Neck Range of Motion: Full ROM Neck Circumference: Normal Teeth Condition: Edentulous ASA Classification ASA Score: ASA 3 Emergency Case?: No NPO Status NPO Status: Full Stomach Status Status: Other Anesthesia Plan Resuscitation Status: Full Code Anesthesia Technique: Epidural Anesthesia Airway Planned: Natural Airway Pain Management: Epidural Monitors Used: Standard Monitors Preoperative Comments:: 32 yo female with request for labor analgesia. She has had minimal to no care. Sig PMHx: Hep c, IV drug abuse. MVR repair 2018 at [facility] (unable to find post replacement ECHO), chronic pain, GERD, RAD, anxiety. Previous Anes: - lap gianfranco, mac 3 grade 1. Plt 240.
--- NOTE | 2022-07-17 09:40 | W.ANESNEU ---
Epidural/Spinal Catheter Date Performed: 07/17/22 Procedure Start: 08:35 Procedure Stop: 09:22 Requesting Provider: Trudi Samuels Procedure Location: Obstetrics Reason Performed: Labor Epidural Standard Monitors Applied: Blood Pressure, SpO2 and See EMR for corresponding vital signs Patient Position: Sitting Sedation Given (Indicate Dose Given): No Sedation given Patient Mental Status: Awake Sterility: Hand Hygiene, Surgical Cap, Surgical Mask, Sterile Gloves, Sterile Drape/Sheet and Chlorhexidine Procedure Location: L2-L3 Interspace Epidural Needle: Tuohy 18 Gauge Needle Length: 3.5 Inch Needle Approach: Midline Epidural Procedure: Skin Prepped, Sterile Drape Placed, 1% Lidocaine to skin and subcutaneous tissue with 25G needle, Tuohy Needle placed, [place] to Saline Used, Epidural Catheter Placed, Negative Heme, Negative CSF Flow and Tuohy Needle Removed Catheter Placed?: Catheter Placed Test Dose (Indicate Dose Given): 3ml 1.5% Lidocaine with 1:200K Epinephrine Given Loss of Resistance Depth (cm): 8 Catheter depth at skin (cm): 14 Dressing: Sorbaview Dressing Placed, Mastisol Used and Dressing reinforced with Tape Epidural Provider Bolus (Indicate Dose Given): Total bolus dose given in 3-5 ml divided doses and Total Ropivacaine 0.1% with Fentanyl 2mcg/ml Given from pump. (ml) Dose:: 15 mL Additives (Indicate Dose Given ): None Infusion Medication: Medication Infusion Began Medication Infusion: Ropivacaine 0.1% with Fentanyl 2mcg/ml Maintenance Infusion Rate (ml/hour): 12 PCEA Bolus Dose (ml): 5 Block Level: T9 Paresthesia: Left (Patient had difficulty verbalizing needs and difference between 'electric' and 'pressure') Paresthesia Duration: Transient Ultrasound: Not Used Number of Attempts (See previous attempts in note section): 2 Procedure Tolerated: Patient did not tolerate well Procedure Outcome: Successful Procedure Comment:: First attempt, at bedside. Consent obtained after review of medical history. Patient has had limited care. During first attempt, achieved [place] to saline, but when threading cather patient began to scream and requested the procedure to stop. Patient was not able to take verbal directions. Patient proceeded to become agitated and threatening to leave the hospital AMA. Security was called to the the OB floor, but did not enter the room. After a period of rest and discussion, patient agreed to second attempt at epidural placement, see note above. Catheter placed with transient left sided paresthesia. Boluses adminstered per charting and patient verbalized some relief. Discussed potential need for increased concentration of narcotics given patient's medical history. Performed By: Neli Crespo
--- NOTE | 2022-07-17 11:57 | PGE_ITS ---
Date of service: 07/17/22 Time of Service: 11:59 Informed Consent Informed Consent: Regional Anesthesia and Other (immediate Levonorgestrel IUD) Pelvic Exam Dilation: 4 Effacement (%): 90 station: 0 Cervix Position: posterior Fetus A Heart Rate Baseline: 135 Presentation: Vertex Variability: Moderate (6-25 BPM) Categories: Category I Accelerations: Present Decelerations: None Amniotic Membrane Status: Ruptured Rupture Method: Artifical Amniotic Fluid: Clear Date of Membrane Rupture: 07/17/22 Time of Membrane Rupture: 11:45 Assessment and Plan Assessment and plan (1) Uterine contractions: Status: Acute Assessment and plan: AROM with clear fluid. Will call anesthesia for redosing of epidural. May consider starting pitocin. Objective Abnormal lab results 07/17/22 07/17/22 Range/Units 05:15 05:15 RBC 3.46 L (3.93-5.22) 10^6/uL Hgb 9.9 L (11.2-15.7) g/dL Hct 30.9 L (36.0-46.0) % ALT 11 L (14-59) U/L Alkaline Phosphatase 219 H (46-116) U/L Total Protein 6.3 L (6.4-8.2) g/dL Albumin 2.1 L (3.4-5.0) g/dL Pulse BP Pulse Ox 85 150/86 H 94 07/17/22 11:56 07/17/22 09:28 07/17/22 11:14 Laboratory Results WBC 6.46 10^3/uL (4.4-10.8) 07/17/22 05:15 RBC 3.46 10^6/uL (3.93-5.22) L 07/17/22 05:15 Hgb 9.9 g/dL (11.2-15.7) L 07/17/22 05:15 Hct 30.9 % (36.0-46.0) L 07/17/22 05:15 MCV 89 fL (80-95) 07/17/22 05:15 MCH 28.6 pg (27.0-33.0) 07/17/22 05:15 MCHC 32.0 % (32.0-36.0) 07/17/22 05:15 RDW 14.0 % (11.7-14.6) 07/17/22 05:15 Plt Count 240 10^3/uL (130-400) 07/17/22 05:15 MPV 10.3 fL (8.0-11.0) 07/17/22 05:15 Sodium 139 mmol/L (136-145) 07/17/22 05:15 Potassium 3.8 mmol/L (3.5-5.1) 07/17/22 05:15 Chloride 104 mmol/L (98-107) 07/17/22 05:15 Carbon Dioxide 29.7 mmol/L (21.0-32.0) 07/17/22 05:15 Anion Gap 5.3 mmol/L (3-11) 07/17/22 05:15 BUN 13 mg/dL (7-18) 07/17/22 05:15 Creatinine 1.0 mg/dL (0.55-1.02) 07/17/22 05:15 Est GFR (CKD-EPI 2020) 76.29 (mL/min/1.73m2) 07/17/22 05:15 Glucose 80 mg/dL (74-106) 07/17/22 05:15 Uric Acid 5.1 mg/dL (2.6-6.0) 07/17/22 05:15 Calcium 8.7 mg/dL (8.5-10.1) 07/17/22 05:15 Total Bilirubin 0.3 mg/dL (0.2-1.0) 07/17/22 05:15 AST 18 U/L (15-37) 07/17/22 05:15 ALT 11 U/L (14-59) L 07/17/22 05:15 Alkaline Phosphatase 219 U/L (46-116) H 07/17/22 05:15 Lactate Dehydrogenase 190 U/L (81-234) 07/17/22 05:15 Total Protein 6.3 g/dL (6.4-8.2) L 07/17/22 05:15 Albumin 2.1 g/dL (3.4-5.0) L 07/17/22 05:15 TSH 2.54 uIU/mL (0.36-3.74) 07/17/22 05:15 Ur Random Creatinine 144.66 mg/dL 07/17/22 05:20 U Random Total Protein 24.3 mg/dL 07/17/22 05:20 U [place] Prot/Creat Ratio 0.16 07/17/22 05:20 COVID-19 Source Nasal/Nares 07/17/22 05:00 SARS-CoV-2 (PCR) Negative (Negative) 07/17/22 05:00 Patient ABO/Rh O Positive 07/17/22 05:15 Antibody Screen NEGATIVE 07/17/22 05:15 Vital Signs Reviewed: Yes Subjective Interval history since last seen: Pt received epidural around 9 and was comfortable until recently. Now she is complaining of pain again. Results Hemoglobin/Hematocrit: Hgb 9.9 g/dL (11.2-15.7) L 07/17/22 05:15 Hct 30.9 % (36.0-46.0) L 07/17/22 05:15 Abnormal Lab Findings: Abnormal Labs 07/17/22 07/17/22 05:15 05:15 RBC 3.46 L Hgb 9.9 L Hct 30.9 L ALT 11 L Alkaline Phosphatase 219 H Total Protein 6.3 L Albumin 2.1 L
[2022-07-17 12:04] LABS: *AMPHETAMINES SCREEN URINE Positive (Negative); *BARBITURATES SCREEN URINE Negative (Negative); *BENZODIAZEPINES SCREEN URINE Negative (Negative); Cannabinoids THC Positive (Negative); Cocaine Screen,Urine Positive (Negative); METHADONE URINE SCREEN Negative (Negative); OPIATES URINE SCREEN Negative (Negative)
[2022-07-17 12:05] LABS: Tricyclic Antidepressants Negative (Negative)
--- NOTE | 2022-07-17 12:40 | PDOC.ANES ---
Date of service: 07/17/22 Time of Service: 12:41 Anesthesia Note Report Anesthesia Note: Called to evaluate epidural/pt. comfort. Pt. moaning in room, states she is uncomfortable. Catheter depth unchanged, dressing intact. She states legs feel numb, good motor strength on exam. I administered 5ml clinician bolus and educated pt/RN on PCEA use as the dose I gave is the same dose of her PCEA button. Pt. now sleeping through contractions. Call for additional concerns.
[2022-07-17] MEDS: Penicillin G POT. 3,000,000 UNITS in Normal Saline 50 ML 100 UNITS IVPB ×3 (13:16→20:48)
[2022-07-17] MEDS: fentaNYL 100 MCG/2 ML VIAL ×2 (14:09→14:15)
[2022-07-17] MEDS: Bupivacaine 0.25% Pres-Free 10 ML VIAL ×2 (14:10→14:15)
[2022-07-17] MEDS: Lactated Ringers 1,000 ML 125 ML IV ×2 (14:23→19:31)
--- NOTE | 2022-07-17 14:30 | PDOC.ANES ---
Date of service: 07/17/22 Time of Service: 14:05 Anesthesia Note Report Anesthesia Note: Called to evaluate patient by OB staff electronic warfare officer. Patient reports discomfort and symptoms of withdrawl. Difficult to assess height of epidural. Patient administered 50mcg fentanyl and 3mL 0.25% bupivacaine at 1410 and again at 1415. Blood pressure stable. Will continue to assess.
--- NOTE | 2022-07-17 15:06 | PGE_ITS ---
Date of service: 07/17/22 Time of Service: 14:00 Informed Consent Informed Consent: Regional Anesthesia and Other (immediate Levonorgestrel IUD) Pelvic Exam Dilation: 4 Effacement (%): 90 station: 0 Fetus A Heart Rate Baseline: 135 Categories: Category I Amniotic Membrane Status: Ruptured Rupture Method: Artifical Assessment and Plan Assessment and plan (1) Uterine contractions: Status: Acute Assessment and plan: Cervix unchanged. Will plan to start pitocin. Pt verbally consented to a pp IUD. She also requested admission to rehab after delivery. Objective Abnormal lab results 07/17/22 07/17/22 07/17/22 Range/Units 05:15 05:15 05:20 RBC 3.46 L (3.93-5.22) 10^6/uL Hgb 9.9 L (11.2-15.7) g/dL Hct 30.9 L (36.0-46.0) % ALT 11 L (14-59) U/L Alkaline Phosphatase 219 H (46-116) U/L Total Protein 6.3 L (6.4-8.2) g/dL Albumin 2.1 L (3.4-5.0) g/dL Ur Amphetamines Screen Positive A (Negative) Urine Cocaine Screen Positive A (Negative) Ur THC Screen Positive A (Negative) Pulse BP Pulse Ox 93 H 132/86 94 07/17/22 15:04 07/17/22 15:00 07/17/22 11:14 Laboratory Results WBC 6.46 10^3/uL (4.4-10.8) 07/17/22 05:15 RBC 3.46 10^6/uL (3.93-5.22) L 07/17/22 05:15 Hgb 9.9 g/dL (11.2-15.7) L 07/17/22 05:15 Hct 30.9 % (36.0-46.0) L 07/17/22 05:15 MCV 89 fL (80-95) 07/17/22 05:15 MCH 28.6 pg (27.0-33.0) 07/17/22 05:15 MCHC 32.0 % (32.0-36.0) 07/17/22 05:15 RDW 14.0 % (11.7-14.6) 07/17/22 05:15 Plt Count 240 10^3/uL (130-400) 07/17/22 05:15 MPV 10.3 fL (8.0-11.0) 07/17/22 05:15 Sodium 139 mmol/L (136-145) 07/17/22 05:15 Potassium 3.8 mmol/L (3.5-5.1) 07/17/22 05:15 Chloride 104 mmol/L (98-107) 07/17/22 05:15 Carbon Dioxide 29.7 mmol/L (21.0-32.0) 07/17/22 05:15 Anion Gap 5.3 mmol/L (3-11) 07/17/22 05:15 BUN 13 mg/dL (7-18) 07/17/22 05:15 Creatinine 1.0 mg/dL (0.55-1.02) 07/17/22 05:15 Est GFR (CKD-EPI 2020) 76.29 (mL/min/1.73m2) 07/17/22 05:15 Glucose 80 mg/dL (74-106) 07/17/22 05:15 Uric Acid 5.1 mg/dL (2.6-6.0) 07/17/22 05:15 Calcium 8.7 mg/dL (8.5-10.1) 07/17/22 05:15 Total Bilirubin 0.3 mg/dL (0.2-1.0) 07/17/22 05:15 AST 18 U/L (15-37) 07/17/22 05:15 ALT 11 U/L (14-59) L 07/17/22 05:15 Alkaline Phosphatase 219 U/L (46-116) H 07/17/22 05:15 Lactate Dehydrogenase 190 U/L (81-234) 07/17/22 05:15 Total Protein 6.3 g/dL (6.4-8.2) L 07/17/22 05:15 Albumin 2.1 g/dL (3.4-5.0) L 07/17/22 05:15 TSH 2.54 uIU/mL (0.36-3.74) 07/17/22 05:15 Ur Random Creatinine 144.66 mg/dL 07/17/22 05:20 U Random Total Protein 24.3 mg/dL 07/17/22 05:20 U [place] Prot/Creat Ratio 0.16 07/17/22 05:20 Urine Opiates Screen Negative (Negative) 07/17/22 05:20 Urine Methadone Screen Negative (Negative) 07/17/22 05:20 Ur Barbiturates Screen Negative (Negative) 07/17/22 05:20 Ur Tricyclics Screen Negative (Negative) 07/17/22 05:20 Ur Amphetamines Screen Positive (Negative) A 07/17/22 05:20 U Benzodiazepines Scrn Negative (Negative) 07/17/22 05:20 Urine Cocaine Screen Positive (Negative) A 07/17/22 05:20 Ur THC Screen Positive (Negative) A 07/17/22 05:20 COVID-19 Source Nasal/Nares 07/17/22 05:00 SARS-CoV-2 (PCR) Negative (Negative) 07/17/22 05:00 Patient ABO/Rh O Positive 07/17/22 05:15 Antibody Screen NEGATIVE 07/17/22 05:15 Subjective Interval history since last seen: Pt uncomfortable again with contractions Results Hemoglobin/Hematocrit: Hgb 9.9 g/dL (11.2-15.7) L 07/17/22 05:15 Hct 30.9 % (36.0-46.0) L 07/17/22 05:15 Abnormal Lab Findings: Abnormal Labs 07/17/22 07/17/22 07/17/22 05:15 05:15 05:20 RBC 3.46 L Hgb 9.9 L Hct 30.9 L ALT 11 L Alkaline Phosphatase 219 H Total Protein 6.3 L Albumin 2.1 L Ur Amphetamines Screen Positive A Urine Cocaine Screen Positive A Ur THC Screen Positive A
--- NOTE | 2022-07-17 15:48 | NUR.NOTE ---
Nursing Note:Post Garcia placement Novii not functioing despite trouble shooting measure. EFM reapplied then powered off. EFM unit replaced in its entirety. Pt asking about pitocin.EAting popsicle.
[2022-07-17] MEDS: Oxytocin/Normal Saline 30 UNIT/500 ML BAG 2 UNITS IV (16:12)
--- NOTE | 2022-07-17 17:41 | NUR.NOTE ---
Nursing Note: Home meds addressed with MD and plan for case management to have coalli come tomorrow to discuss plan for rehab after discharge.
--- NOTE | 2022-07-17 17:57 | NUR.NOTE ---
Nursing Note: Changed pt position to right tilt, maximum assist. Pt refused peanut ball between legs but allowed for 2 pillows.Pt states,I'm getting dope sick. This RN asked which drug was making her sick and pt replied, fentanyl. stepped off unit for a moment but will return shortly.
--- NOTE | 2022-07-17 18:34 | PGE_ITS ---
Date of service: 07/17/22 Time of Service: 18:36 Informed Consent Informed Consent: Regional Anesthesia and Other (immediate Levonorgestrel IUD) Pelvic Exam Dilation: 5 Effacement (%): 90 station: 0 Position: LOP Cervix Position: anterior Contractions Contraction Frequency(min): q2-3 Fetus A Heart Rate Baseline: 130 Presentation: Vertex Variability: Moderate (6-25 BPM) Categories: Category II Accelerations: 15 X 15 Decelerations: Variable (occasional) Assessment and Plan Assessment and plan (1) Uterine contractions: Status: Acute Assessment and plan: Discussed withdrawal sxms with hospitalist. He recommended starting with 40mg methadone since she declines clonidine. Will continue pitocin for labor augmentation and encourage pt to make some posi tion changes. Objective Abnormal lab results 07/17/22 07/17/22 07/17/22 Range/Units 05:15 05:15 05:20 RBC 3.46 L (3.93-5.22) 10^6/uL Hgb 9.9 L (11.2-15.7) g/dL Hct 30.9 L (36.0-46.0) % ALT 11 L (14-59) U/L Alkaline Phosphatase 219 H (46-116) U/L Total Protein 6.3 L (6.4-8.2) g/dL Albumin 2.1 L (3.4-5.0) g/dL Ur Amphetamines Screen Positive A (Negative) Urine Cocaine Screen Positive A (Negative) Ur THC Screen Positive A (Negative) Temp Pulse Resp BP Pulse Ox 98.1 F 79 16 149/95 H 100 07/17/22 16:10 07/17/22 15:46 07/17/22 17:43 07/17/22 15:36 07/17/22 16:10 Laboratory Results WBC 6.46 10^3/uL (4.4-10.8) 07/17/22 05:15 RBC 3.46 10^6/uL (3.93-5.22) L 07/17/22 05:15 Hgb 9.9 g/dL (11.2-15.7) L 07/17/22 05:15 Hct 30.9 % (36.0-46.0) L 07/17/22 05:15 MCV 89 fL (80-95) 07/17/22 05:15 MCH 28.6 pg (27.0-33.0) 07/17/22 05:15 MCHC 32.0 % (32.0-36.0) 07/17/22 05:15 RDW 14.0 % (11.7-14.6) 07/17/22 05:15 Plt Count 240 10^3/uL (130-400) 07/17/22 05:15 MPV 10.3 fL (8.0-11.0) 07/17/22 05:15 Sodium 139 mmol/L (136-145) 07/17/22 05:15 Potassium 3.8 mmol/L (3.5-5.1) 07/17/22 05:15 Chloride 104 mmol/L (98-107) 07/17/22 05:15 Carbon Dioxide 29.7 mmol/L (21.0-32.0) 07/17/22 05:15 Anion Gap 5.3 mmol/L (3-11) 07/17/22 05:15 BUN 13 mg/dL (7-18) 07/17/22 05:15 Creatinine 1.0 mg/dL (0.55-1.02) 07/17/22 05:15 Est GFR (CKD-EPI 2020) 76.29 (mL/min/1.73m2) 07/17/22 05:15 Glucose 80 mg/dL (74-106) 07/17/22 05:15 Uric Acid 5.1 mg/dL (2.6-6.0) 07/17/22 05:15 Calcium 8.7 mg/dL (8.5-10.1) 07/17/22 05:15 Total Bilirubin 0.3 mg/dL (0.2-1.0) 07/17/22 05:15 AST 18 U/L (15-37) 07/17/22 05:15 ALT 11 U/L (14-59) L 07/17/22 05:15 Alkaline Phosphatase 219 U/L (46-116) H 07/17/22 05:15 Lactate Dehydrogenase 190 U/L (81-234) 07/17/22 05:15 Total Protein 6.3 g/dL (6.4-8.2) L 07/17/22 05:15 Albumin 2.1 g/dL (3.4-5.0) L 07/17/22 05:15 TSH 2.54 uIU/mL (0.36-3.74) 07/17/22 05:15 Ur Random Creatinine 144.66 mg/dL 07/17/22 05:20 U Random Total Protein 24.3 mg/dL 07/17/22 05:20 U [place] Prot/Creat Ratio 0.16 07/17/22 05:20 Urine Opiates Screen Negative (Negative) 07/17/22 05:20 Urine Methadone Screen Negative (Negative) 07/17/22 05:20 Ur Barbiturates Screen Negative (Negative) 07/17/22 05:20 Ur Tricyclics Screen Negative (Negative) 07/17/22 05:20 Ur Amphetamines Screen Positive (Negative) A 07/17/22 05:20 U Benzodiazepines Scrn Negative (Negative) 07/17/22 05:20 Urine Cocaine Screen Positive (Negative) A 07/17/22 05:20 Ur THC Screen Positive (Negative) A 07/17/22 05:20 COVID-19 Source Nasal/Nares 07/17/22 05:00 SARS-CoV-2 (PCR) Negative (Negative) 07/17/22 05:00 Patient ABO/Rh O Positive 07/17/22 05:15 Antibody Screen NEGATIVE 07/17/22 05:15 Vital Signs Reviewed: Yes Subjective Interval history since last seen: Pt feels like she is withdrawing. She has shivers and body aches. She says she is withdrawing from fentanyl and that clonidine doesn't work for her. Results Hemoglobin/Hematocrit: Hgb 9.9 g/dL (11.2-15.7) L 07/17/22 05:15 Hct 30.9 % (36.0-46.0) L 07/17/22 05:15 Abnormal Lab Findings: Abnormal Labs 07/17/22 07/17/22 07/17/22 05:15 05:15 05:20 RBC 3.46 L Hgb 9.9 L Hct 30.9 L ALT 11 L Alkaline Phosphatase 219 H Total Protein 6.3 L Albumin 2.1 L Ur Amphetamines Screen Positive A Urine Cocaine Screen Positive A Ur THC Screen Positive A
[2022-07-17] MEDS: FentaNYL/ROPIvacaine 2 mcg/ml and 0.1% 200 ML CADD Cassette EP (18:43)
[2022-07-17] MEDS: Gabapentin 800 MG TAB PO (19:49)
[2022-07-17] MEDS: Methadone 10 MG TAB 40 MG PO (19:49)
--- NOTE | 2022-07-17 20:57 | PGE_ITS ---
Date of service: 07/17/22 Time of Service: 20:57 Informed Consent Informed Consent: Regional Anesthesia and Other (immediate Levonorgestrel IUD) Pelvic Exam Dilation: 8 Effacement (%): 100 station: +2 Assessment and Plan Assessment and plan (1) Uterine contractions: Status: Acute Assessment and plan: expectant management Objective Abnormal lab results 07/17/22 07/17/22 07/17/22 Range/Units 05:15 05:15 05:20 RBC 3.46 L (3.93-5.22) 10^6/uL Hgb 9.9 L (11.2-15.7) g/dL Hct 30.9 L (36.0-46.0) % ALT 11 L (14-59) U/L Alkaline Phosphatase 219 H (46-116) U/L Total Protein 6.3 L (6.4-8.2) g/dL Albumin 2.1 L (3.4-5.0) g/dL Ur Amphetamines Screen Positive A (Negative) Urine Cocaine Screen Positive A (Negative) Ur THC Screen Positive A (Negative) Temp Pulse Resp BP Pulse Ox 98.1 F 79 16 149/95 H 100 07/17/22 16:10 07/17/22 15:46 07/17/22 17:43 07/17/22 15:36 07/17/22 16:10 Laboratory Results WBC 6.46 10^3/uL (4.4-10.8) 07/17/22 05:15 RBC 3.46 10^6/uL (3.93-5.22) L 07/17/22 05:15 Hgb 9.9 g/dL (11.2-15.7) L 07/17/22 05:15 Hct 30.9 % (36.0-46.0) L 07/17/22 05:15 MCV 89 fL (80-95) 07/17/22 05:15 MCH 28.6 pg (27.0-33.0) 07/17/22 05:15 MCHC 32.0 % (32.0-36.0) 07/17/22 05:15 RDW 14.0 % (11.7-14.6) 07/17/22 05:15 Plt Count 240 10^3/uL (130-400) 07/17/22 05:15 MPV 10.3 fL (8.0-11.0) 07/17/22 05:15 Sodium 139 mmol/L (136-145) 07/17/22 05:15 Potassium 3.8 mmol/L (3.5-5.1) 07/17/22 05:15 Chloride 104 mmol/L (98-107) 07/17/22 05:15 Carbon Dioxide 29.7 mmol/L (21.0-32.0) 07/17/22 05:15 Anion Gap 5.3 mmol/L (3-11) 07/17/22 05:15 BUN 13 mg/dL (7-18) 07/17/22 05:15 Creatinine 1.0 mg/dL (0.55-1.02) 07/17/22 05:15 Est GFR (CKD-EPI 2020) 76.29 (mL/min/1.73m2) 07/17/22 05:15 Glucose 80 mg/dL (74-106) 07/17/22 05:15 Uric Acid 5.1 mg/dL (2.6-6.0) 07/17/22 05:15 Calcium 8.7 mg/dL (8.5-10.1) 07/17/22 05:15 Total Bilirubin 0.3 mg/dL (0.2-1.0) 07/17/22 05:15 AST 18 U/L (15-37) 07/17/22 05:15 ALT 11 U/L (14-59) L 07/17/22 05:15 Alkaline Phosphatase 219 U/L (46-116) H 07/17/22 05:15 Lactate Dehydrogenase 190 U/L (81-234) 07/17/22 05:15 Total Protein 6.3 g/dL (6.4-8.2) L 07/17/22 05:15 Albumin 2.1 g/dL (3.4-5.0) L 07/17/22 05:15 TSH 2.54 uIU/mL (0.36-3.74) 07/17/22 05:15 Ur Random Creatinine 144.66 mg/dL 07/17/22 05:20 U Random Total Protein 24.3 mg/dL 07/17/22 05:20 U [place] Prot/Creat Ratio 0.16 07/17/22 05:20 Urine Opiates Screen Negative (Negative) 07/17/22 05:20 Urine Methadone Screen Negative (Negative) 07/17/22 05:20 Ur Barbiturates Screen Negative (Negative) 07/17/22 05:20 Ur Tricyclics Screen Negative (Negative) 07/17/22 05:20 Ur Amphetamines Screen Positive (Negative) A 07/17/22 05:20 U Benzodiazepines Scrn Negative (Negative) 07/17/22 05:20 Urine Cocaine Screen Positive (Negative) A 07/17/22 05:20 Ur THC Screen Positive (Negative) A 07/17/22 05:20 COVID-19 Source Nasal/Nares 07/17/22 05:00 SARS-CoV-2 (PCR) Negative (Negative) 07/17/22 05:00 Patient ABO/Rh O Positive 07/17/22 05:15 Antibody Screen NEGATIVE 07/17/22 05:15 Subjective Interval history since last seen: increasing pressure and pain. Epidural seems to be wearing off. Feels the shakes have improved. Results Hemoglobin/Hematocrit: Hgb 9.9 g/dL (11.2-15.7) L 07/17/22 05:15 Hct 30.9 % (36.0-46.0) L 07/17/22 05:15 Abnormal Lab Findings: Abnormal Labs 07/17/22 07/17/22 07/17/22 05:15 05:15 05:20 RBC 3.46 L Hgb 9.9 L Hct 30.9 L ALT 11 L Alkaline Phosphatase 219 H Total Protein 6.3 L Albumin 2.1 L Ur Amphetamines Screen Positive A Urine Cocaine Screen Positive A Ur THC Screen Positive A
--- NOTE | 2022-07-17 21:47 | PDOC.ANES ---
Date of service: 07/17/22 Time of Service: 21:05 Anesthesia Note Report Anesthesia Note: Called due to concerns about labor epidural effectiveness. Nurse concerned that pt. is moving her legs which she was not earlier and also that patient was having increased discomfort. Pt. is able to move her legs which is the goal of a low concentration epidural. She had received 0.25% bupivacaine earlier today for additional pain control which certainly has more motor blockade, although this is not the goal when patient enters phase II. Upon arrival, patient is active phase II labor, OB at bedside, appears fairly comfortable in between contractions and able to speak during contractions but not able to coordinate contraction/pushing/directions. 10ml bolus given via pump with good relief of discomfort within 5-10 minutes. Pt. now sleeping inbetween contractions and able to be an active participant. I will standby until delivery.
[2022-07-17] MEDS: miSOPROStol 200 MCG TAB 800 MCG SL (22:35)
--- NOTE | 2022-07-17 23:12 | OBVDS_ITS ---
Date of service: 07/17/22 Time of Service: 22:19 OB Labor/ Delivery Information Baby A Delivery Delivery Method: Spontaneaous Presentation: Vertex Estimated Blood Loss: 400 Delivery Outcome: Liveborn Note: The pt was found to be fully dilated. She pushed 80mins to deliver the 's head in direct OA position followed by the shoulders and the rest of the body. After >1min the cord was clamped x2 and cut. Baby was handed to the performance test engineer. Cord blood collected. The placenta delivered with gentle cord traction and fundal massage and appeared intact. Fundus was firm with good hemostasis. 800mcg of cytotec given SL for prophylaxis due to h/o pph. IUD insertion note -A speculum was placed into the vagina to expose the cervix. The anterior lip was grasped with an allis clamp. The cervix was clensed with betadyne. The uterus was sounded to 9cm. The Mirena IUD was inserted without difficulty. The strings were trimmed to 3-4cm. The allis clamp and speculum were removed. Mom and baby stable at time of note. Providers Doctor: Stacy Love Salesperson Hosiery: Stefani Mcconnell Nurse: Leydi Corea Nurse: Luisa Ferrera Labor/Delivery Information Number of Babies in Womb: 1 Steroids Given: None Reason Steroids Not Administered: N/A Group Beta Strep: Done-Result Unknown Antibiotics Administered: Yes Maternal Complications: Other Shoulder Dystocia: No Stages of Labor Onset of Labor Date: 07/17/22 ROM Baby A: 07/17/22 ROM Baby A: 11:41 ROM Total Time- Baby A: [id number] Infant Delivery Date-Baby A: 07/17/22 Infant Delivery Time-Baby A: 22:19 Placenta Delivery Date-Baby A: 07/17/22 Placenta Delivery Time-Baby A: 22:22 Labor-Stage 3 Duration: 3 minutes Placenta Cultured: Yes Placenta Status: Delivered Baby A Infant Gender: Female Gestational Status: Term (39-41.6 wks) Gestational Age in Weeks/Days: 40 Weeks and 1 Days Score-1 Minute Interval(Baby A) Heart Rate-1 minute: 100 BPM or Greater Respiratory Effort- 1 minute: Spontaneous/Strong Cry Muscle Tone-1 minute: Active Movement Reflex Response-1 minute: Prompt Response Color-1 minute: Bluish Hands or Feet Total Score-1 minute: 9 Score-5 Minute Interval(Baby A) Heart Rate- 5 minute: 100 BPM or Greater Respiratory Effort-5 minute: Spontaneous/Strong Cry Muscle Tone-5 minute: Active Movement Reflex Response-5 minute: Prompt Response Color-5 minute: Bluish Hands or Feet Total Score- 5 minute: 9
[2022-07-18] MEDS: Acetaminophen 325 MG TAB 650 MG PO ×2 (00:02→04:05)
[2022-07-18] MEDS: Ibuprofen 600 MG TAB PO (00:03)
[2022-07-18 00:10] VITALS: BP 150/72; PULSE 50
[2022-07-18 01:00] VITALS: BP 147/94; PULSE 65; RESP 17
[2022-07-18 02:24] VITALS: BP 125/67; PULSE 74
[2022-07-18] MEDS: Methadone 10 MG TAB 30 MG PO (04:52)
[2022-07-18] MEDS: LORazepam 1 MG TAB PO (05:34)
[2022-07-19 13:55] LABS: Chlamydia Result Negative (Negative); GC Result Negative (Negative)
[2022-07-20 10:13] LABS: Varicella IgG Antibody Positive (See Note)
[2022-07-20 10:18] LABS: Rubella IgG Ab (UVM) Positive (See Note)
[2022-07-20 10:21] LABS: HIV-1/2 Ag & Ab Screen Negative (Negative)
[2022-07-20 10:26] LABS: Hepatitis B Surface Ag Negative (Negative)
[2022-07-20 10:42] LABS: Hepatitis C Ab w Rflx HCV PCR Reactive (Negative)
[2022-07-20 16:13] LABS: Syphilis IgG w/Reflex Nonreactive (Nonreactive)
[2022-07-22 13:01] LABS: HCV RNA Qualitative Undetected (Undetected)
[2022-07-24 10:08] LABS: Buprenorphine Negative ng/mL (Cutoff: 5.0)
[2022-07-24 12:53] LABS: Fentanyl Interpretation Positive.; Fentanyl by LC-MS/MS 69.6 ng/mL
== END 2022-07-18 05:42 | disposition left against medical advice (07) | DRG 806 ==
PROVIDERS: Advanced Practice Midwife; Admitting Provider Obstetrics & Gynecology Gynecology; PCP Family Medicine; Visit Provider Obstetrics & Gynecology Gynecology
DX: O99.324 Drug use complicating childbirth (principal); F11.23 Opioid dependence with withdrawal; Z37.0 Single live birth; O98.42 Viral hepatitis complicating childbirth; L03.115 Cellulitis of right lower limb; B18.2 Chronic viral hepatitis C; O99.02 Anemia complicating childbirth; O99.344 Other mental disorders complicating childbirth; F41.8 Other specified anxiety disorders; O99.62 Diseases of the digestive system complicating childbirth; O99.334 Smoking (tobacco) complicating childbirth; F17.210 Nicotine dependence, cigarettes, uncomplicated; Z3A.41 41 weeks gestation of pregnancy; K21.9 Gastro-esophageal reflux disease without esophagitis; F41.9 Anxiety disorder, unspecified; F31.9 Bipolar disorder, unspecified; Z91.199 Patient's noncompliance with other medical treatment and regimen due to unspecified reason; Z59.01 Sheltered homelessness; F19.10 Other psychoactive substance abuse, uncomplicated; D50.9 Iron deficiency anemia, unspecified
CPT/HCPCS: 80053; 80307; 80348; 85027; 86787; 86803; 86850; 86900; 86901; 87340; 87389; 87491; 87522; 87591; 87635; 80354; 82565; 83615; 84156; 84443; 84550; 86762; 86780; 87081; J2540; J3010

== ENCOUNTER 2022-09-08 13:02 | Inpatient (IN) | payer MEDICAID, SELFPAY ==
[2022-09-08] VITALS (92 sets, daily range): BP systolic 90–118; BP diastolic 53–70; PULSE 49–72; RESP 3–27; TEMP 36.2–36.5; O2SAT 96–98
--- NOTE | 2022-09-08 13:14 | W.ED.GENAD ---
Discharge Plan Disposition Patient Disposition: Admit to [facility] Condition: Stable Discharge Details Chief Complaint: Abd Prob Clinical Impression: Acute cholangitis Primary Care Provider: Timothy Bliss ED Provider: Joe Parker Home Meds and New Rx's Prescriptions: No Action dexmethylphenidate [Focalin XR] 30 mg capsule,ER biphasic 50-50 40 mg PO DAILY AM Label Comments: Take 1 capsule by mouth once a day Take Focalin XR 30 mg q AM and Focalin XR 20 mg q afternoon gabapentin 800 mg tablet 800 mg PO TID Label Comments: Take 1 tablet by mouth three times a day Medical Decision Making 32-year-old female presents with lower abdominal pain of hours duration. Associated with nausea and one episode of emesis. The patient has had previous cholecystectomy. She arrives to the ER subjectively complaining of pain, pulse of 67, pressure 118/70. She is afebrile and oxygenating normally. She is tender in the right mid abdomen. Differential diagnosis is broad including nonspecific abdominal pain, constipation, obstipation, right-sided diverticulitis or appendicitis. Patient IV access established and screening labs obtained. She is given parenteral analgesia. White blood cell count is 5, hematocrit 34, platelets 213. Sodium 138, potassium 3.3, chloride 104, bicarb 28, BUN 14, creatinine 1.0. AST is elevated at 377, ALT 284. Total bili is 0.4. Note is made of previous elevations of the patient's transaminases. CT imaging obtained: CT images reveal Seen within intrahepatic duct in the left hepatic lobe, not previously present. There is central mesenteric swirl sign evident. The case was discussed with Dr. Andrews. The patient states that she has been shooting drugs IV as well as smoking street opiates. She is at risk for cholangitis. Blood cultures obtained and will initiate antibiotics. Patient to be admitted. HPI General Mode of arrival: EMS. Date/Time Provider Initiated Documentation: 09/08/22 13:17. Limitations to Documentation: no limitations. Information obtained by: patient and EMS. History of Present Illness 32 year old F presents to the emergency department with the chief complaint of Right lower quadrant abdominal pain for 3 hours time, described as moderate, and is localized to the abdomen and right. Patient reports no radiation. Patient started experiencing this hour(s) and it has been constant. No relieving factors improve symptom(s), No exacerbating factors reported . Patient notes nausea/vomiting; denies fever/chills. Patient did receive the following treatments prior to arrival, none Related Data Home Medications Medication Instructions Recorded Confirmed gabapentin 800 mg tablet 800 mg PO TID 11/08/21 06/12/22 dexmethylphenidate 30 mg 40 mg PO DAILY AM 11/15/21 06/12/22 capsule,extended release -36 (Focalin XR) Allergies Allergy/AdvReac Type Severity Reaction Status Date / Time No Known Drug Allergies Allergy Unverified 09/08/22 13:08 General Stated Complaint: Abd Prob PATRICIA: 3 Review of Systems Narrative: Recent IUD placement. Denies vaginal discharge or bleeding. Currently using fentanyl, longer on methadone. Denies IV drug use. 7 systems reviewed and otherwise negative PFSH All Active Problems (Updated 09/08/22 @ 18:23 by Joe Parker MD) Acute cholangitis (Acute) Left against medical advice (Acute) AMA from Center @ <10 hrs Lower extremity edema (Acute) Hepatitis C (Chronic) Methadone dependence (Chronic) Noncompliance with medication regimen (Acute) Cellulitis (Acute) Opioid dependence (Acute) Medical History Abdominal pain Abscess of left index finger Anxiety Arm numbness left Bipolar disorder Chest pain Drug reaction Eloped from emergency department Endocarditis Frequent headaches GERD (gastroesophageal reflux disease) Headache History of intravenous drug abuse History of recurrent UTIs Hx of hemorrhage, currently Iron deficiency anemia Left shoulder pain Nephrolithiasis Obesity Polysubstance abuse Reactive airway disease Surgical History S/P ERCP S/P laparoscopic cholecystectomy S/P mitral valve replacement 4 years ago at [facility] Family History Father Substance use disorder Social History Smoking/Tobacco Use Status: Current every day Tobacco Type: cigarettes Smoking risk assessment performed?: Yes Alcohol Intake: never Drug use: Daily Substance use type: opiates and other Details: patient uses fentynal Do you feel safe at home: Yes Do you feel safe in your relationship?: Yes Additional Social history: homeless, bouncing around to different houses of friends. History History 5 Para 2 Hx # Term Pregnancies Multiple births Hx # Pregnancies Ectopic pregnancies AB induced Hx Number of Living Children AB spontaneous Exam Narrative Exam Narrative: GEN: awake, alert, oriented 3. Pleasant, well groomed, interactive. HEAD: Normocephalic, atraumatic ENT: Mucous membranes moist, oropharynx unremarkable, External ear exam unremarkable EYES: PERRL, EOMI NECK: Full ROM, no DANA, no menigismus CHEST/RESP: Nontender, clear to auscultation bilateral, no wheeze/rhonchi/rales CARDIOVASCULAR: RRR, no murmur, rub esme. 2+ Rad pulse bilateral ABDOMEN: Soft, tender in the lower abdomen without rebound present, no mass. +Bowel sounds EXT: Full ROM, no edema, no rash Neuro: Grossly normal neurologic exam, conversant, interactive. Psych: Speech fluent, thoughts congruent, affect normal Course Vital Signs Vital signs: Vital Signs Temperature 36.5 C 09/08/22 13:02 Pulse 67 09/08/22 13:02 Respiratory Rate 18 09/08/22 13:02 Blood Pressure 118/70 09/08/22 13:02 Pulse Oximetry 98 09/08/22 13:02 Temperature 36.5 C 09/08/22 13:02 Temperature Source Skin 09/08/22 13:02 Pulse 67 09/08/22 13:02 Respiratory Rate 18 09/08/22 13:02 Respiratory Effort Non-Labored 09/08/22 13:11 Blood Pressure 118/70 09/08/22 13:02 Blood Pressure Position Supine 09/08/22 13:02 Pulse Oximetry 98 09/08/22 13:02 Oxygen Delivery Method Room Air 09/08/22 13:02 Oxygen Flow Rate 0 09/08/22 13:02 Pain Level 10 09/08/22 13:02
[2022-09-08] MEDS: Ondansetron 4 MG/2 ML VIAL IVP (13:32)
[2022-09-08] MEDS: HYDROmorphone 2 MG/ML SYR 1 MG IVP (13:32)
[2022-09-08] MEDS: Normal Saline 1,000 ML 1000 ML IV (13:33)
[2022-09-08] MEDS: diphenhydrAMINE 50 MG/ML VIAL 25 MG IVP (13:43)
[2022-09-08 13:49] LABS: Abs Immature Grans 0.02 10^3/uL (0.0-0.06); Absolute Basophil Count 0.04 10^3/uL (0.0-0.2); Absolute Eosinophil Count 0.08 10^3/uL (0.0-0.7); Absolute Lymphocyte Count 1.32 10^3/uL (1.2-3.4); Absolute Monocyte Count 0.51 10^3/uL (0.1-0.8); Absolute Neutrophil Count 3.71 10^3/uL (1.2-6.7); Basophils % 0.7; Eosinophils % 1.4; HCT 34.2 % (36.0-46.0); HGB 10.7 g/dL (11.2-15.7); Immature Grans % 0.4; Lymphocytes % 23.2; MCH 27.1 pg (27.0-33.0); MCHC 31.3 % (32.0-36.0); MCV 87 fL (80-95); MPV 10.6 fL (8.0-11.0); Neutrophils % 65.3; Platelet Count 213 10^3/uL (130-400); RBC 3.95 10^6/uL (3.93-5.22); RDW 15.1 % (11.7-14.6); RDW-SD 48.4 fL; WBC 5.68 10^3/uL (4.4-10.8)
[2022-09-08 13:51] LABS: ALT 284 U/L (14-59); AST 377 U/L (15-37); Albumin 3.2 g/dL (3.4-5.0); Alkaline Phosphatase 156 U/L (46-116); Anion Gap 5.5 mmol/L (3-11); BUN 14 mg/dL (7-18); Bilirubin, Total 0.4 mg/dL (0.2-1.0); CO2 28.5 mmol/L (21.0-32.0); Calcium 8.1 mg/dL (8.5-10.1); Chloride 104 mmol/L (98-107); Estimated GFR 76.29 (mL/min/1.73m2); Glucose 109 mg/dL (74-106); Lipase 39 U/L (73-393); Magnesium 1.8 mg/dL (1.8-2.4); Potassium 3.3 mmol/L (3.5-5.1); Sodium 138 mmol/L (136-145); Total Protein 6.9 g/dL (6.4-8.2)
[2022-09-08 14:09] LABS: Diff Comment Agrees w/ Instrument; RBC Morphology Normal
--- NOTE | 2022-09-08 14:15 | DI.CT_ITS ---
Exam(s) CT ABDOMEN PELVIS W EXAM: CT ABDOMEN PELVIS W CLINICAL HISTORY: R sided abd pain, elevated LFT's. TECHNIQUE: Imaging Protocol: Axial computed tomography images with coronal and sagittal reformatted images were created and reviewed CONTRAST MATERIAL: Intravenous: Omnipaque-350 100cc Oral: None COMPARISON: CT CT ABDOMEN PELVIS W from 07/20/2021 FINDINGS: VISUALIZED LUNG BASES: There is some infiltrate in the right middle lobe anterior right lung base. N o pleural effusions.. ABDOMEN: There is no ascites. LIVER: There are no focal hepatic lesions evident. However, there is air-gas seen within intrahepati c duct in the left hepatic lobe, not previously present. GALLBLADDER/BILIARY: Gallbladder is again noted be surgically absent. CBD is not dilated. PANCREAS: No evidence of pancreatic mass nor dilatation of the pancreatic duct. SPLEEN: Spleen is again noted be lobulated but not enlarged. No obvious intrasplenic lesions. Splen ic and portal veins are patent. ADRENALS: There are no significant adrenal masses. KIDNEYS:No cysts evident. No solid renal masses. No calculi nor hydronephrosis.. ABDOMINAL AORTA: Abdominal aorta is not enlarged. LYMPH NODES:There is no retroperitoneal nor paraaortic adenopathy. ABDOMINAL WALL: No evidence of significant anterior abdominal wall nor inguinal hernia. GI: There is a central mesentery swirl sign evident. There is streaking in the mesentery. No thromb osis of the superior mesenteric vein. No obvious mesenteric adenopathy. No bowel obstruction. PELVIS: GI: No evidence of obvious appendicitis.No evidence of sigmoid diverticulitis. LYMPH NODES: There is no intrapelvic nor inguinal adenopathy. REPRODUCTIVE: There is an IUD now evident in the uterine canal. Uterus is again noted to be retrover dominic. There is a tiny amount of fluid in the cul-de-sac. URINARY BLADDER: No calculi nor obvious masses evident OSSEOUS: No significant osseous lesions. IMPRESSION: 1. Compared to prior CT scan of 07/20/2021 there is now a central mesenteric swirl sign and some hazi ness in central mesentery now evident from not previously present. No evidence of mesenteric vein th rombosis. 2. IUD is now evident in the uterine cavity, not previously present on CT scan of 07/20/2021 no new a bnormal adnexal masses. There is a tiny amount of fluid in the cul-de-sac. Called by myself to ER. RADIATION DOSE DELIVERED: 957.3mGy.cm Total DLP DATA REPOSITORY: All CT scans at this facility are submitted to the National Radiology Data Registry (NRDR) Dose Index Registry (DIR) with the [employer] (ACR). RADIATION OPTIMIZATION: All CT scans at this facility use at least one of these dose optimization te chniques: automated exposure control; mA and/or kV adjustment per patient size (includes targeted exa ms where dose is matched to clinical indication); or iterative reconstruction.
[2022-09-08 14:32] LABS: Bilirubin Negative (Negative); Blood Trace-intact (Negative); Clarity Clear (Clear); Glucose Negative (Negative); Ketones Negative (Negative); Leukocyte Esterase Negative (Negative); Nitrite Negative (Negative); Specific Gravity 1.025 (1.005-1.025); Urobilinogen 0.2 EU/dL (Up TO 0.2); pH 6.5 (5-8)
[2022-09-08 14:55] LABS: Bacteria Negative HPF (Negative); Crystals Negative HPF (Negative); Epithelial Cells Rare HPF (Negative); Mucus Negative (Negative); WBC Negative HPF (0-5)
[2022-09-08 14:56] LABS: C & S Indicated? No; Casts 0-2 Hyaline LPF (Negative)
[2022-09-08] MEDS: Omnipaque 350 MG/ML 100 ML BTL IJ (15:52)
[2022-09-08] MEDS: Normal Saline - Diluent 50 ML VIAL IJ (15:55)
[2022-09-08] MEDS: PIPERACILLIN/TAZO 4.5 GM in Normal Saline 100 ML IVPB (18:36)
--- NOTE | 2022-09-08 19:13 | W.PM.PROGNOT ---
Date of Service Date of service: 09/08/22 Time of Service: 19:14 Assessment and Plan Assessment and plan (1) Acute cholangitis: Status: Acute Assessment and plan: cultures and abx started (2) Iron deficiency anemia during , antepartum: Status: Acute (3) Hepatitis C: Status: Chronic Assessment and plan: untreated (4) GERD (gastroesophageal reflux disease): (5) History of intravenous drug abuse: Assessment and plan: used today 09/08/22 (6) Endocarditis: Assessment and plan: s/p mitral valve replacement (7) Bipolar disorder: (8) Obesity: (9) Polysubstance abuse: (10) Reactive airway disease: (11) Opioid dependence: Status: Acute (12) Noncompliance with medication regimen: Status: Acute (13) state: Status: Acute Assessment and plan: BP 117/80 HR 62 glucose: 109 ua +protein d/w OB. Don't feel this is eclampsia Subjective Subjective Interval history since last seen: - Presented to the emergency room tonight complaining of acute on chronic abdominal pain. CT scan was obtained which did show air in the biliary tree and elevated LFTs and alk phos. She has had a previous cholecystectomy. She does have hepatitis C. She had a child in July 2022. 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 Pt at high risk for liver abscess -Blood cultures and labs are done in the ER. Patient is started on Zosyn. I will review her chart and see if vancomycin would be appropriate. Internal medicine service will be consulted as well for medical management Objective Last Vital Signs Temp 36.5 C 09/08/22 13:02 Pulse 59 L 09/08/22 14:19 Resp 26 H 09/08/22 17:50 BP 98/60 L 09/08/22 14:19 Pulse Ox 98 09/08/22 13:02 Laboratory Results - last 24 hr 09/08/22 09/08/22 09/08/22 13:26 13:26 14:20 WBC 5.68 RBC 3.95 Hgb 10.7 L Hct 34.2 L MCV 87 MCH 27.1 MCHC 31.3 L RDW 15.1 H Plt Count 213 MPV 10.6 Immature Gran % 0.4 Neutrophils % 65.3 Lymphocytes % 23.2 Monocytes % 9.0 Eosinophils % 1.4 Basophils % 0.7 Nucleated RBC % 0.0 Absolute Neutrophils 3.71 Absolute Lymphocytes 1.32 Absolute Monocytes 0.51 Absolute Eosinophils 0.08 Absolute Basophils 0.04 RBC Morphology Normal Sodium 138 Potassium 3.3 L Chloride 104 Carbon Dioxide 28.5 Anion Gap 5.5 BUN 14 Creatinine 1.0 Est GFR (CKD-EPI 2020) 76.29 Glucose 109 H Calcium 8.1 L Magnesium 1.8 Total Bilirubin 0.4 AST 377 H ALT 284 H Alkaline Phosphatase 156 H Total Protein 6.9 Albumin 3.2 L Lipase 39 Urine Color Yellow Urine Clarity Clear Urine pH 6.5 Ur Specific [place] 1.025 Urine Protein 30 H Urine Ketones Negative Urine Blood Trace-intact H Urine Nitrite Negative Urine Bilirubin Negative Urine Urobilinogen 0.2 Ur Leukocyte Esterase Negative Urine RBC 3-5 H Urine WBC Negative Ur Epithelial Cells Rare Urine Crystals Negative Urine Bacteria Negative Urine Casts 0-2 Hyaline Urine Mucus Negative Ur Culture Indicated? No Urine Glucose Negative Time Spent with Patient Time Spent with Patient: >50 minutes Time was spent: preparing to see the patient(eg.review tests), obtaining and/or reviewing separately otained hiistory, ordering medications,tests, procedures, referring, communicating with other health md do resident urgent care, indepentently interpreting results, counseling the patient and care coordination
[2022-09-08 20:03] LABS: Source Nasal/Nares
[2022-09-08 21:08] LABS: COVID-19 PCR Negative (Negative)
--- NOTE | 2022-09-08 21:36 | W.MEDCONSULT ---
Date of service: 09/08/22 Time of Service: 21:37 Assessment and Plan Assessment and plan (1) Acute cholangitis: Start date: 09/08/22 Status: Acute Assessment and plan: This is a 32-year-old lady now a couple of months who presents to the ED with colicky abdominal pain. She is status postcholecystectomy and was admitted to the surgical service with medical consultation. Patient is appropriate treated with Zosyn and labs will be trended with further imaging per surgery. Medically the patient appears stable except for acute elevation in LFTs. She is not complaining of severe pain and pain management per surgery. We will follow medically with patient to have clarification as to whether she is on methadone which she was on recently when . This is not on her home list. She has a history of hep C but appears to have undetected viral load without treatment according to patient. She is a full code. (2) Hepatitis C: Status: Chronic Assessment and plan: Patient has positive hepatitis C antibody but no detectable viral RNA. Continue to monitor. This is not appear to be part of her acute problem but may want to be rechecked if liver function tests remain elevated since she did not receive medical therapy but appeared to clear on her own. History of Present Illness History of Present Illness Chief Complaint: Abdominal pain with nausea and emesis Narrative: This is a 32-year lady who is had a previous cholecystectomy presenting to the ED with abdominal pain with nausea and one episode of emesis. ED evaluation did reveal probable acute cholangitis with surgery consulted and admitting patient. She is on appropriate antibiotic coverage with Zosyn and has had cultures. Ultrasound and further imaging is scheduled for the morning. Patient is on clear fluids. She is not complaining of any persistence of nausea and has had no further emesis. She is perfectly comfortable when speaking to me and gives a history of previous heart surgery for valve replacement status post endocarditis from IV drug use. She also states that she had hep C and it cleared after her heart surgery and blood transfusions. She was not treated for hepatitis C. She does not drink alcohol. She denies any fever with presentation and any significant back discomfort though she has chronic pain with previous iv drug use. Her WBC was not elevated. Cultures were performed and lab trending infection are pending. Patient is a difficult blood draw. At this time I have nothing further to add for treatment but the patient appears to have an acute change in her liver function tests compared tpo 07/[address] findings of the abdomen with air in her left intrahepatic duct. She has colicky type pain and this is suspicious for an obstructive process. Review of Systems Narrative: Review of systems positive for recent atrophic scarlike lesions over the patient's pretibial area on the right leg without ulceration, 13 point review of systems otherwise unrevealing or overall stable. Patient has increased somatic complaints chronically. Patient did just recently give vaginal 07/2022 and obstetrics might be consulted as to acute cholangitis. Patient did not voluntarily offer history of recent . PFSH All Active Problems state (Acute) Iron deficiency anemia during , antepartum (Acute) Acute cholangitis (Acute) Left against medical advice (Acute) AMA from Center @ <10 hrs Lower extremity edema (Acute) Hepatitis C (Chronic) Methadone dependence (Chronic) Noncompliance with medication regimen (Acute) Cellulitis (Acute) Opioid dependence (Acute) Medical History Abdominal pain Abscess of left index finger Anxiety Arm numbness left Bipolar disorder Chest pain Drug reaction Eloped from emergency department Endocarditis Frequent headaches GERD (gastroesophageal reflux disease) Headache History of intravenous drug abuse History of recurrent UTIs Hx of hemorrhage, currently Iron deficiency anemia Left shoulder pain Nephrolithiasis Obesity Polysubstance abuse Reactive airway disease Surgical History S/P ERCP S/P laparoscopic cholecystectomy S/P mitral valve replacement 4 years ago at [facility] Family History Father Substance use disorder Social History Smoking/Tobacco Use Status: Current every day Tobacco Type: cigarettes Smoking risk assessment performed?: Yes Alcohol Intake: never Drug use: Daily Substance use type: opiates and other Details: patient uses fentynal Do you feel safe at home: Yes Do you feel safe in your relationship?: Yes Additional Social history: homeless, bouncing around to different houses of friends. History History 5 Para 2 Hx # Term Pregnancies Multiple births Hx # Pregnancies Ectopic pregnancies AB induced Hx Number of Living Children AB spontaneous Exam Narrative Exam Narrative: General: Patient appears older than stated age, speaking comfortably and in no acute distress though she presented with severe abdominal pain. Alert and oriented x3. HEENT: Normocephalic, coarsened facial features with patient edentulous. Eyes with pupils equal and react to light symmetrically, extraocular movement intact and sclera anicteric. Oropharynx dry mucosa and missing teeth. Neck: Supple without JVD. Back: Kyphotic without CVA tenderness. Lungs: Fair aeration and clear to auscultation percussion. Chest: Well-healed hypertrophic sternal scar with symmetrical movement upon breathing. Breast: Exam deferred. Heart: Regular rate and rhythm with 4/6 systolic murmur left sternal border. No gallops or rubs appreciated. Abdomen: Obese contour, soft to palpation with tenderness in the right upper quadrant with guarding but no rebound. No palpable hepatosplenomegaly. Bowel sounds positive in all quadrants. Genitalia/rectal: Exam deferred. Extremities: Without clubbing, cyanosis or pitting edema. Chronic skin changes with atrophic and hyperpigmented scars over upper extremities and lower extremities with larger patches of hypopigmented atrophic scars over the pretibial area right leg without ulceration. Peripheral pulses intact. Skin: Pale, warm and dry with skin lesions as mentioned. Neuro: Cranial nerves II through XII gross intact, no focalizing motor deficits. Psych: Slightly flattened affect with depressed mood. No abnormal thought processes. Remote and recent memory. Grossly intact though patient does not mention that recently having spontaneous vaginal delivery in July 2022. This topic was not even discussed. Results Last Vital Signs Temp 36.5 C 09/08/22 13:02 Pulse 49 L 09/08/22 20:16 Resp 9 L 09/08/22 20:20 BP 103/60 09/08/22 20:16 Pulse Ox 98 09/08/22 13:02 Labs Result diagrams: 09/09/22 05:22 09/08/22 13:26 Labs: Laboratory Results - last 24 hr 09/08/22 09/08/22 09/08/22 13:26 13:26 14:20 WBC 5.68 RBC 3.95 Hgb 10.7 L Hct 34.2 L MCV 87 MCH 27.1 MCHC 31.3 L RDW 15.1 H Plt Count 213 MPV 10.6 Immature Gran % 0.4 Neutrophils % 65.3 Lymphocytes % 23.2 Monocytes % 9.0 Eosinophils % 1.4 Basophils % 0.7 Nucleated RBC % 0.0 Absolute Neutrophils 3.71 Absolute Lymphocytes 1.32 Absolute Monocytes 0.51 Absolute Eosinophils 0.08 Absolute Basophils 0.04 RBC Morphology Normal Sodium 138 Potassium 3.3 L Chloride 104 Carbon Dioxide 28.5 Anion Gap 5.5 BUN 14 Creatinine 1.0 Est GFR (CKD-EPI 2020) 76.29 Glucose 109 H Calcium 8.1 L Magnesium 1.8 Total Bilirubin 0.4 AST 377 H ALT 284 H Alkaline Phosphatase 156 H Total Protein 6.9 Albumin 3.2 L Lipase 39 Urine Color Yellow Urine Clarity Clear Urine pH 6.5 Ur Specific [place] 1.025 Urine Protein 30 H Urine Ketones Negative Urine Blood Trace-intact H Urine Nitrite Negative Urine Bilirubin Negative Urine Urobilinogen 0.2 Ur Leukocyte Esterase Negative Urine RBC 3-5 H Urine WBC Negative Ur Epithelial Cells Rare Urine Crystals Negative Urine Bacteria Negative Urine Casts 0-2 Hyaline Urine Mucus Negative Ur Culture Indicated? No Urine Glucose Negative COVID-19 Source SARS-CoV-2 (PCR) 09/08/22 19:58 WBC RBC Hgb Hct MCV MCH MCHC RDW Plt Count MPV Immature Gran % Neutrophils % Lymphocytes % Monocytes % Eosinophils % Basophils % Nucleated RBC % Absolute Neutrophils Absolute Lymphocytes Absolute Monocytes Absolute Eosinophils Absolute Basophils RBC Morphology Sodium Potassium Chloride Carbon Dioxide Anion Gap BUN Creatinine Est GFR (CKD-EPI 2020) Glucose Calcium Magnesium Total Bilirubin AST ALT Alkaline Phosphatase Total Protein Albumin Lipase Urine Color Urine Clarity Urine pH Ur Specific [place] Urine Protein Urine Ketones Urine Blood Urine Nitrite Urine Bilirubin Urine Urobilinogen Ur Leukocyte Esterase Urine RBC Urine WBC Ur Epithelial Cells Urine Crystals Urine Bacteria Urine Casts Urine Mucus Ur Culture Indicated? Urine Glucose COVID-19 Source Nasal/Nares SARS-CoV-2 (PCR) Negative Imaging Imaging Studies: CT ABDOMEN ? PELVIS W EXAM: ? CT ABDOMEN ? PELVIS W CLINICAL HISTORY: ? R sided abd pain, elevated LFT's. ? TECHNIQUE:? Imaging Protocol: Axial computed tomography images with coronal and sagittal reformatted images were created and reviewed CONTRAST MATERIAL:? Intravenous: Omnipaque-350? 100cc Oral: None COMPARISON:? CT CT ABDOMEN ? PELVIS W from 07/20/2021 FINDINGS: VISUALIZED LUNG BASES: There is some infiltrate in the right middle lobe anterior right lung base.? No pleural effusions..? ABDOMEN: There is no ascites. LIVER: There are no focal hepatic lesions evident.? However, there is air-gas seen within intrahepatic duct in the left hepatic lobe, not previously present. GALLBLADDER/BILIARY: Gallbladder is again noted be surgically absent.? CBD is not dilated. PANCREAS: No evidence of pancreatic mass nor dilatation of the pancreatic duct.? SPLEEN: Spleen is again noted be lobulated but not enlarged.? No obvious intrasplenic lesions.? Splenic and portal veins are patent. ADRENALS: There are no significant adrenal masses. KIDNEYS:No cysts evident.? No solid renal masses.? No calculi nor hydronephrosis.. ABDOMINAL AORTA: Abdominal aorta is not enlarged. LYMPH NODES:There is no retroperitoneal nor paraaortic adenopathy. ABDOMINAL WALL: No evidence of significant anterior abdominal wall nor inguinal hernia. GI: There is a central mesentery swirl sign evident.? There is streaking in the mesentery.? No thrombosis of the superior mesenteric vein.? No obvious mesenteric adenopathy.? No bowel obstruction. PELVIS:? GI: No evidence of obvious appendicitis.No evidence of sigmoid diverticulitis. LYMPH NODES: There is no intrapelvic nor inguinal adenopathy. REPRODUCTIVE: There is an IUD now evident in the uterine canal.? Uterus is again noted to be retroverted.? There is a tiny amount of fluid in the cul-de-sac. URINARY BLADDER: No calculi nor obvious masses evident OSSEOUS: No significant osseous lesions. IMPRESSION: 1. Compared to prior CT scan of 07/20/2021 there is now a central mesenteric swirl sign and some haziness in central mesentery now evident from not previously present.? No evidence of mesenteric vein thrombosis. 2. IUD is now evident in the uterine cavity, not previously present on CT scan of 07/20/2021 no new abnormal adnexal masses.? There is a tiny amount of fluid in the cul-de-sac.
[2022-09-08 21:41] LABS: ESR 19 mm/hr (0-20)
[2022-09-08 21:54] LABS: C-Reactive Protein 7.86 mg/dL (0.0-0.3)
[2022-09-08 21:58] LABS: INR 1.1 (0.9-1.1); Prothrombin Time 10.9 sec (9.3-11.0)
[2022-09-08 22:07] LABS: GGT 85 U/L (5-55); TSH (W/Ref FT4) 0.65 uIU/mL (0.36-3.74)
[2022-09-08 22:10] LABS: ETHANOL BLOOD < 3.0 mg/dL (<10)
[2022-09-08 22:14] LABS: D-Dimer 1532 ng/mlFEU (<500)
[2022-09-08 22:15] LABS: Procalcitonin 0.5 ng/mL
[2022-09-08 22:34] LABS: Ferritin 70 ng/mL (8-252)
[2022-09-08] MEDS: Famotidine 20 MG/2 ML VIAL IVP (22:47)
[2022-09-08] MEDS: Enoxaparin 40 MG/0.4 ML SYR SC (22:48)
[2022-09-08] MEDS: Gabapentin 800 MG TAB PO (22:54)
--- NOTE | 2022-09-09 | DI.US_ITS ---
Exam(s) US ABDOMEN LIMITED EXAM: US ABDOMEN LIMITED CLINICAL HISTORY: liver abscess TECHNIQUE: Ultrasound abdomen performed using standard protocol. COMPARISON: CT CT ABDOMEN PELVIS W from 07/20/[address] ABDOMEN PELVIS W from 09/08/2022 FINDINGS: LIVER: Elongated right lobe measuring 22 cm in length. Normal echogenicity. No focal liver lesions are seen.. GALLBLADDER: Status post cholecystectomy. No collection in gallbladder fossa. BILIARY SYSTEM: No intrahepatic or extrahepatic biliary ductal dilation. Air is seen within the left hepatic duct as seen on prior CT.. KIDNEY: Normal size. Normal echogenicity. No evidence of renal calculi. No evidence of hydronephros is. No renal mass identified. 7 millimeter right renal cyst. PANCREAS: Normal where visualized. ABDOMINAL AORTA AND IVC: Visualized portions normal caliber. ASCITES: None seen. IMPRESSION: Biliary air noted in left hepatic duct. Liver parenchyma homogeneous. No evidence of abscess. DATA REPOSITORY:
[2022-09-09] MEDS: Normal Saline 1,000 ML 75 ML IV (00:02)
[2022-09-09 00:17] LABS: Bilirubin Negative (Negative); Blood Trace-intact (Negative); Clarity Clear (Clear); Glucose Negative (Negative); Ketones Negative (Negative); Leukocyte Esterase Negative (Negative); Nitrite Negative (Negative); Specific Gravity 1.015 (1.005-1.025); Urobilinogen 0.2 EU/dL (Up TO 0.2)
[2022-09-09 00:24] LABS: Bacteria Rare HPF (Negative); Crystals Negative HPF (Negative); Epithelial Cells Few HPF (Negative); Mucus Negative (Negative); RBC 0-2 HPF (0-2); WBC 0-2 HPF (0-5)
[2022-09-09 00:25] LABS: C & S Indicated? No
[2022-09-09 00:30] LABS: *AMPHETAMINES SCREEN URINE Negative (Negative); *BARBITURATES SCREEN URINE Negative (Negative); *BENZODIAZEPINES SCREEN URINE Negative (Negative); Cannabinoids THC Negative (Negative); Cocaine Screen,Urine Positive (Negative); METHADONE URINE SCREEN Negative (Negative); OPIATES URINE SCREEN Positive (Negative)
[2022-09-09 00:31] LABS: Tricyclic Antidepressants Negative (Negative)
[2022-09-09] MEDS: Normal Saline 100 ML (05:50)
[2022-09-09] MEDS: PIPERACILLIN/TAZO 3.375 GM in Normal Saline 50 ML IVPB (05:50)
[2022-09-09 06:10] LABS: Abs Immature Grans 0.01 10^3/uL (0.0-0.06); Absolute Basophil Count 0.03 10^3/uL (0.0-0.2); Absolute Eosinophil Count 0.25 10^3/uL (0.0-0.7); Absolute Monocyte Count 0.29 10^3/uL (0.1-0.8); Absolute Neutrophil Count 1.88 10^3/uL (1.2-6.7); Basophils % 0.8; Eosinophils % 6.8; HCT 34.6 % (36.0-46.0); HGB 10.7 g/dL (11.2-15.7); Immature Grans % 0.3; Lymphocytes % 32.8; MCH 27.2 pg (27.0-33.0); MCHC 30.9 % (32.0-36.0); MCV 88 fL (80-95); Monocytes % 7.9; Neutrophils % 51.4; Platelet Count 194 10^3/uL (130-400); RBC 3.93 10^6/uL (3.93-5.22); RDW 15.3 % (11.7-14.6); RDW-SD 49.4 fL; WBC 3.66 10^3/uL (4.4-10.8)
[2022-09-09 06:24] LABS: Lipase 80 U/L (73-393)
[2022-09-09 07:14] VITALS: BP 136/72; PULSE 70; RESP 18; TEMP 36.6; O2SAT 98
[2022-09-09] MEDS: MORPHine 2 MG/ML SYR IVP (07:21)
--- NOTE | 2022-09-09 08:04 | W.PM.PROGNOT ---
Date of Service Date of service: 09/09/22 Time of Service: 08:04 Assessment and Plan Assessment and plan (1) state: Status: Acute (2) Iron deficiency anemia during , antepartum: Status: Acute (3) Acute cholangitis: Status: Acute Assessment and plan: Patient was receiving Morphine upon this providers arrival. Continue IV antibiotics Elevated LFTs Abdominal US and Echo ordered for this morning. Reported history of hernia, s/p laparoscopic hernia repair at [facility] (will request these notes) Continue with pain control and IV antibiotics. Awaiting further diagnostic imaging results. This patient left against medical advice before I was able to evaluate her. Subjective Subjective Interval history since last seen: Arrived with the patient resting comfortably in bed. Upon waking the patient the patient started crying and discomfort reported severe abdominal pain. She denies any nausea or vomiting. Patient states that she is passing flatus and had a bowel movement yesterday. While speaking with the patient she then fell back to sleep for a few minutes and then able to wake up and finish up with this provider. Patient reports that she has previously undergone laparoscopic hernia repair with mesh at [facility]. She was unsure of when this was. Exam Const General: cooperative and in distress moderate Orientation: alert and awake Resp Effort & Inspection: normal respiratory effort, no audible wheezes and no cough GI Inspection: normal to inspection Palpation: soft, guarding and tender in the epigastrum, in the RLQ and in the RUQ Other: No signs of peritonitis. Objective Last Vital Signs Temp 36.6 C 09/09/22 07:14 Pulse 70 09/09/22 07:14 Resp 18 09/09/22 07:14 BP 136/72 09/09/22 07:14 Pulse Ox 98 09/09/22 07:14 Laboratory Results - last 24 hr 09/08/22 09/08/22 09/08/22 13:26 13:26 14:20 WBC 5.68 RBC 3.95 Hgb 10.7 L Hct 34.2 L MCV 87 MCH 27.1 MCHC 31.3 L RDW 15.1 H Plt Count 213 MPV 10.6 Immature Gran % 0.4 Neutrophils % 65.3 Lymphocytes % 23.2 Monocytes % 9.0 Eosinophils % 1.4 Basophils % 0.7 Nucleated RBC % 0.0 Absolute Neutrophils 3.71 Absolute Lymphocytes 1.32 Absolute Monocytes 0.51 Absolute Eosinophils 0.08 Absolute Basophils 0.04 RBC Morphology Normal ESR PT INR D-Dimer Sodium 138 Potassium 3.3 L Chloride 104 Carbon Dioxide 28.5 Anion Gap 5.5 BUN 14 Creatinine 1.0 Est GFR (CKD-EPI 2020) 76.29 Glucose 109 H Calcium 8.1 L Magnesium 1.8 Ferritin Total Bilirubin 0.4 GGT AST 377 H ALT 284 H Alkaline Phosphatase 156 H C-Reactive Protein Total Protein 6.9 Albumin 3.2 L Lipase 39 Procalcitonin TSH Urine Color Yellow Urine Clarity Clear Urine pH 6.5 Ur Specific [place] 1.025 Urine Protein 30 H Urine Ketones Negative Urine Blood Trace-intact H Urine Nitrite Negative Urine Bilirubin Negative Urine Urobilinogen 0.2 Ur Leukocyte Esterase Negative Urine RBC 3-5 H Urine WBC Negative Ur Epithelial Cells Rare Urine Crystals Negative Urine Bacteria Negative Urine Casts 0-2 Hyaline Urine Mucus Negative Ur Culture Indicated? No Urine Glucose Negative Urine Opiates Screen Urine Methadone Screen Ur Barbiturates Screen Ur Tricyclics Screen Ur Amphetamines Screen U Benzodiazepines Scrn Urine Cocaine Screen Ur THC Screen Ethyl Alcohol COVID-19 Source SARS-CoV-2 (PCR) 09/08/22 09/08/22 09/08/22 19:58 21:27 21:27 WBC RBC Hgb Hct MCV MCH MCHC RDW Plt Count MPV Immature Gran % Neutrophils % Lymphocytes % Monocytes % Eosinophils % Basophils % Nucleated RBC % Absolute Neutrophils Absolute Lymphocytes Absolute Monocytes Absolute Eosinophils Absolute Basophils RBC Morphology ESR PT INR D-Dimer 1532 H Sodium Potassium Chloride Carbon Dioxide Anion Gap BUN Creatinine Est GFR (CKD-EPI 2020) Glucose Calcium Magnesium Ferritin 70 Total Bilirubin GGT 85 H AST ALT Alkaline Phosphatase C-Reactive Protein Total Protein Albumin Lipase Procalcitonin TSH 0.65 Urine Color Urine Clarity Urine pH Ur Specific [place] Urine Protein Urine Ketones Urine Blood Urine Nitrite Urine Bilirubin Urine Urobilinogen Ur Leukocyte Esterase Urine RBC Urine WBC Ur Epithelial Cells Urine Crystals Urine Bacteria Urine Casts Urine Mucus Ur Culture Indicated? Urine Glucose Urine Opiates Screen Urine Methadone Screen Ur Barbiturates Screen Ur Tricyclics Screen Ur Amphetamines Screen U Benzodiazepines Scrn Urine Cocaine Screen Ur THC Screen Ethyl Alcohol COVID-19 Source Nasal/Nares SARS-CoV-2 (PCR) Negative 09/08/22 09/08/22 09/08/22 21:27 21:27 21:27 WBC RBC Hgb Hct MCV MCH MCHC RDW Plt Count MPV Immature Gran % Neutrophils % Lymphocytes % Monocytes % Eosinophils % Basophils % Nucleated RBC % Absolute Neutrophils Absolute Lymphocytes Absolute Monocytes Absolute Eosinophils Absolute Basophils RBC Morphology ESR 19 PT INR D-Dimer Sodium Potassium Chloride Carbon Dioxide Anion Gap BUN Creatinine Est GFR (CKD-EPI 2020) Glucose Calcium Magnesium Ferritin Total Bilirubin GGT AST ALT Alkaline Phosphatase C-Reactive Protein 7.86 H Total Protein Albumin Lipase Procalcitonin 0.5 TSH Urine Color Urine Clarity Urine pH Ur Specific [place] Urine Protein Urine Ketones Urine Blood Urine Nitrite Urine Bilirubin Urine Urobilinogen Ur Leukocyte Esterase Urine RBC Urine WBC Ur Epithelial Cells Urine Crystals Urine Bacteria Urine Casts Urine Mucus Ur Culture Indicated? Urine Glucose Urine Opiates Screen Urine Methadone Screen Ur Barbiturates Screen Ur Tricyclics Screen Ur Amphetamines Screen U Benzodiazepines Scrn Urine Cocaine Screen Ur THC Screen Ethyl Alcohol COVID-19 Source SARS-CoV-2 (PCR) 09/08/22 09/08/22 09/09/22 21:27 21:27 00:04 WBC RBC Hgb Hct MCV MCH MCHC RDW Plt Count MPV Immature Gran % Neutrophils % Lymphocytes % Monocytes % Eosinophils % Basophils % Nucleated RBC % Absolute Neutrophils Absolute Lymphocytes Absolute Monocytes Absolute Eosinophils Absolute Basophils RBC Morphology ESR PT 10.9 INR 1.1 D-Dimer Sodium Potassium Chloride Carbon Dioxide Anion Gap BUN Creatinine Est GFR (CKD-EPI 2020) Glucose Calcium Magnesium Ferritin Total Bilirubin GGT AST ALT Alkaline Phosphatase C-Reactive Protein Total Protein Albumin Lipase Procalcitonin TSH Urine Color Yellow Urine Clarity Clear Urine pH 7.0 Ur Specific [place] 1.015 Urine Protein Negative Urine Ketones Negative Urine Blood Trace-intact H Urine Nitrite Negative Urine Bilirubin Negative Urine Urobilinogen 0.2 Ur Leukocyte Esterase Negative Urine RBC 0-2 Urine WBC 0-2 Ur Epithelial Cells Few Urine Crystals Negative Urine Bacteria Rare Urine Casts Urine Mucus Negative Ur Culture Indicated? No Urine Glucose Negative Urine Opiates Screen Urine Methadone Screen Ur Barbiturates Screen Ur Tricyclics Screen Ur Amphetamines Screen U Benzodiazepines Scrn Urine Cocaine Screen Ur THC Screen Ethyl Alcohol < 3.0 COVID-19 Source SARS-CoV-2 (PCR) 09/09/22 09/09/22 09/09/22 00:04 05:22 05:22 WBC 3.66 L RBC 3.93 Hgb 10.7 L Hct 34.6 L MCV 88 MCH 27.2 MCHC 30.9 L RDW 15.3 H Plt Count 194 MPV 11.0 Immature Gran % 0.3 Neutrophils % 51.4 Lymphocytes % 32.8 Monocytes % 7.9 Eosinophils % 6.8 Basophils % 0.8 Nucleated RBC % 0.0 Absolute Neutrophils 1.88 Absolute Lymphocytes 1.20 Absolute Monocytes 0.29 Absolute Eosinophils 0.25 Absolute Basophils 0.03 RBC Morphology ESR PT INR D-Dimer Sodium Potassium Chloride Carbon Dioxide Anion Gap BUN Creatinine Est GFR (CKD-EPI 2020) Glucose Calcium Magnesium Ferritin Total Bilirubin GGT AST ALT Alkaline Phosphatase C-Reactive Protein Total Protein Albumin Lipase 80 Procalcitonin TSH Urine Color Urine Clarity Urine pH Ur Specific [place] Urine Protein Urine Ketones Urine Blood Urine Nitrite Urine Bilirubin Urine Urobilinogen Ur Leukocyte Esterase Urine RBC Urine WBC Ur Epithelial Cells Urine Crystals Urine Bacteria Urine Casts Urine Mucus Ur Culture Indicated? Urine Glucose Urine Opiates Screen Positive A Urine Methadone Screen Negative Ur Barbiturates Screen Negative Ur Tricyclics Screen Negative Ur Amphetamines Screen Negative U Benzodiazepines Scrn Negative Urine Cocaine Screen Positive A Ur THC Screen Negative Ethyl Alcohol COVID-19 Source SARS-CoV-2 (PCR) Time Spent with Patient Time Spent with Patient: <25 minutes Time was spent: preparing to see the patient(eg.review tests) and ordering medications,tests, procedures
--- NOTE | 2022-09-09 09:09 | PDOC.CMIN ---
- If Service Date Differs Date of service: 09/09/22 Time of Service: 09:09 Care Management Initial Assess REASON FOR HOSPITALIZATION:: Cholangitis/acute hepatitis PAST MEDICAL HISTORY/PAST SURGICAL HISTORY:: All Active Problems. state (Acute). Iron deficiency anemia during , antepartum (Acute). Acute cholangitis (Acute). Left against medical advice (Acute). AMA from Center @ <10 hrs . Lower extremity edema (Acute). Hepatitis C (Chronic). Methadone dependence (Chronic). Noncompliance with medication regimen (Acute). Cellulitis (Acute). Opioid dependence (Acute). Medical History. Abdominal pain. Abscess of left index finger. Anxiety. Arm numbness left. Bipolar disorder. Chest pain. Drug reaction. Eloped from emergency department. Endocarditis. Frequent headaches. GERD (gastroesophageal reflux disease). Headache. History of intravenous drug abuse. History of recurrent UTIs. Hx of hemorrhage, currently . Iron deficiency anemia. Left shoulder pain. Nephrolithiasis. Obesity. Polysubstance abuse. . Reactive airway disease. Surgical History. S/P ERCP. S/P laparoscopic cholecystectomy. S/P mitral valve replacement. 4 years ago at [facility] PREVIOUS FUNCTIONAL STATUS/SOCIAL/FAMILY SUPPORTS:: Ina's address states that she lives in [facility] [place]. Per report, she has been bouncing around, staying with friends. She is independent with ADL's at baseline. CURRENT FUNCTIONAL STATUS:: CM observed Ina being brought to her echo this morning. When CM attempted to visit, CM was informed that Ina had left AMA. ADVANCE DIRECTIVES:: Not on file. Has patient been provided with info about the portal/API?: Yes Did the patient sign up for the portal?: No CODE STATUS:: Full Code INSURANCE COVERAGE / FINANCIAL ISSUES:: [facility] CURRENT HOME/COMMUNITY SERVICES/EQUIPMENT:: Ina has had support from [facility] in the past, unclear if she is a patient there at this time. PRIMARY CARE PHYSICIAN:: Timothy Bliss POTENTIAL DISCHARGE NEEDS:: Evaluations for further needs, follow up appointments. PATIENT/FAMILY EDUCATION NEEDS:: Review discharge instructions and limitations, discussion of self care needs including ask me three. ANTICIPATED BARRIERS TO DISCHARGE:: None identified at this time. TRANSPORTATION:: Via private vehicle by friends/family. PLAN:: Ina left AMA this morning prior to CM meeting with her. Per report, she is independent in the community.
[2022-09-09] MEDS: Gabapentin 800 MG TAB PO (09:48)
--- NOTE | 2022-09-09 18:58 | NUR.NOTE ---
pt calls asking for DX information. Explained that her chart is no longer her and nursing cannot assist. Recommended pt contact her pcp in the AM. Nursing Note:
== END 2022-09-09 10:15 | disposition left against medical advice (07) | DRG 445 ==
LOC: ER 19:34 → MS 20:48
PROVIDERS: Admitting Provider Surgery; Emergency Provider Emergency Medicine; PCP Family Medicine; Visit Provider Surgery
DX: K83.09 Other cholangitis (principal); F11.20 Opioid dependence, uncomplicated; B18.2 Chronic viral hepatitis C; Z95.2 Presence of prosthetic heart valve; G89.29 Other chronic pain; R60.0 Localized edema; K21.9 Gastro-esophageal reflux disease without esophagitis; F19.10 Other psychoactive substance abuse, uncomplicated; Z91.14 Patient's other noncompliance with medication regimen; D64.9 Anemia, unspecified; F17.210 Nicotine dependence, cigarettes, uncomplicated; Z59.01 Sheltered homelessness
CPT/HCPCS: 36415; 80053; 80307; 81025; 83690; 84145; 85652; 87040; 87077; 87635; 96361; 96365; 96375; 99285; J1650; 74177; 76705; 80320; 81003; 81015; 82728; 82977; 83735; 84443; 85025; 85379; 85610; 86140; 87186; 93306; 99222; J1170; J1200; J2270; J2405; J2543; J3490

== ENCOUNTER 2022-09-23 14:04 | Emergency (ER) | payer MEDICAID, SELFPAY ==
[2022-09-23 14:02] VITALS: BP 128/81; PULSE 71; RESP 19; TEMP 36.8; O2SAT 99
--- NOTE | 2022-09-23 14:33 | W.ED.GENAD ---
Discharge Plan Disposition Patient Disposition: Home Condition: Stable Discharge Details Clinical Impression: Opioid withdrawal, Abdominal pain Primary Care Provider: Timothy Bliss ED Provider: Arely Lovett Home Meds and New Rx's Prescriptions: No Action dexmethylphenidate [Focalin XR] 30 mg capsule,ER biphasic 50-50 40 mg PO DAILY AM Label Comments: Take 1 capsule by mouth once a day Take Focalin XR 30 mg q AM and Focalin XR 20 mg q afternoon gabapentin 800 mg tablet 800 mg PO TID Label Comments: Take 1 tablet by mouth three times a day Discharge Instructions Instructions: Abdominal Pain (ED), Opioid Withdrawal (ED) Additional Instructions: Discussed her symptoms with the medical team at the facility. Your labs are much improved from your last visit here. You are given some nausea medication clonidine hydroxyzine for anxiety and opioid withdrawal. Follow up with primary care provider in 3-5 days. Return to ED sooner if any worsening or concerns. Increase oral fluids. Please take Tylenol or Ibuprofen with food every 4-6 hours as needed for pain and swelling. Stand Alone Forms: Work Release Referrals: Timothy Bliss [Primary Care Provider] - 2 weeks Discharge Data Discharge Date/Time-TO BE ENTERED AT DEPARTURE: 09/23/22 16:24 Medical Decision Making 32-year-old female presents to the ER accompanied by law enforcement in custody via EMS after being picked up at the court house for arrangement with chief complaint of abdominal pain. Patient reports that this began suddenly. She also endorses to the nurse that she has not had any fentanyl in the last couple of days and she is in withdrawal and is asking for some clonidine. She was recently admitted into the hospital on September 09 and left AMA for cholangitis. Vital signs are stable she is afebrile upon arrival. CBC CMP ordered, clonidine 0.1 mg p.o. hydroxyzine 25 mg p.o., Zofran 4 mg IV. Liter normal saline, Toradol 15 mg IV ordered for pain, lipase added on, CBC shows no leukocytosis, CMP shows sodium of 134, anion gap 2.6, glucose 119 AST 59 ALT 138 alk phos 211. RN reports that she is now sleeping. Care is to be handed off to [facility] pending lipase result. Expected disposition at this time is discharge into police custody. As her labs are much improved from her previous visit. Bilirubin is not elevated. Labs are largely improved, patient has been sleeping she awakens easily and reports that she feels much better, condition is improved and she has been medically cleared, she will be released into the custody of law enforcement. This text was generated using [employer] system, please disregard any oddities of phrase or misspellings. Medical Records Medical records reviewed: Yes I reviewed the patient's medical records. Medical records narrative: Patient has a history reactive airway disease, polysubstance abuse, iron deficiency anemia, hemorrhage, recurrent UTIs, history of IV drug abuse, endocarditis, bipolar disorder, anxiety she is status post laparoscopic cholecystectomy mitral valve replacement and cholangitis. Lab Data Lab results reviewed: Yes I reviewed the patient's lab results. Labs: Laboratory Tests Range/Units 09/23/22 09/23/22 09/23/22 15:02 15:02 15:02 WBC (4.4-10.8) 10^3/uL 6.30 RBC (3.93-5.22) 10^6/uL 5.19 Hgb (11.2-15.7) g/dL 13.8 Hct (36.0-46.0) % 43.4 MCV (80-95) fL 84 MCH (27.0-33.0) pg 26.6 L MCHC (32.0-36.0) % 31.8 L RDW (11.7-14.6) % 16.6 H Plt Count (130-400) 10^3/uL 436 H MPV (8.0-11.0) fL 10.2 Immature Gran % 0.2 Neutrophils % 74.9 Lymphocytes % 21.4 Monocytes % 2.7 Eosinophils % 0.2 Basophils % 0.6 Nucleated RBC % (0.0-0.3) % 0.0 Absolute Neutrophils (1.2-6.7) 10^3/uL 4.72 Absolute Lymphocytes (1.2-3.4) 10^3/uL 1.35 Absolute Monocytes (0.1-0.8) 10^3/uL 0.17 Absolute Eosinophils (0.0-0.7) 10^3/uL 0.01 Absolute Basophils (0.0-0.2) 10^3/uL 0.04 Sodium (136-145) mmol/L 134 L Potassium (3.5-5.1) mmol/L 3.7 Chloride (98-107) mmol/L 103 Carbon Dioxide (21.0-32.0) mmol/L 28.4 Anion Gap (3-11) mmol/L 2.6 L BUN (7-18) mg/dL 12 Creatinine (0.55-1.02) mg/dL 0.9 Est GFR (CKD-EPI 2020) (mL/min/1.73m2) 86.57 Glucose (74-106) mg/dL 119 H Calcium (8.5-10.1) mg/dL 9.6 Magnesium (1.8-2.4) mg/dL 1.8 Total Bilirubin (0.2-1.0) mg/dL 0.9 AST (15-37) U/L 59 H ALT (14-59) U/L 138 H Alkaline Phosphatase (46-116) U/L 211 H Total Protein (6.4-8.2) g/dL 8.8 H Albumin (3.4-5.0) g/dL 3.7 Lipase (73-393) U/L 73 Add-On Test Request Range/Units 09/23/22 15:33 WBC (4.4-10.8) 10^3/uL RBC (3.93-5.22) 10^6/uL Hgb (11.2-15.7) g/dL Hct (36.0-46.0) % MCV (80-95) fL MCH (27.0-33.0) pg MCHC (32.0-36.0) % RDW (11.7-14.6) % Plt Count (130-400) 10^3/uL MPV (8.0-11.0) fL Immature Gran % Neutrophils % Lymphocytes % Monocytes % Eosinophils % Basophils % Nucleated RBC % (0.0-0.3) % Absolute Neutrophils (1.2-6.7) 10^3/uL Absolute Lymphocytes (1.2-3.4) 10^3/uL Absolute Monocytes (0.1-0.8) 10^3/uL Absolute Eosinophils (0.0-0.7) 10^3/uL Absolute Basophils (0.0-0.2) 10^3/uL Sodium (136-145) mmol/L Potassium (3.5-5.1) mmol/L Chloride (98-107) mmol/L Carbon Dioxide (21.0-32.0) mmol/L Anion Gap (3-11) mmol/L BUN (7-18) mg/dL Creatinine (0.55-1.02) mg/dL Est GFR (CKD-EPI 2020) (mL/min/1.73m2) Glucose (74-106) mg/dL Calcium (8.5-10.1) mg/dL Magnesium (1.8-2.4) mg/dL Total Bilirubin (0.2-1.0) mg/dL AST (15-37) U/L ALT (14-59) U/L Alkaline Phosphatase (46-116) U/L Total Protein (6.4-8.2) g/dL Albumin (3.4-5.0) g/dL Lipase (73-393) U/L Add-On Test Request DONE HPI General Mode of arrival: EMS (Law enforcement). Date/Time Provider Initiated Documentation: 09/23/22 14:32. Limitations to Documentation: physical limitation. Information obtained by: patient, EMS, RN notes reviewed and old records reviewed. HPI Narrative: 32-year-old female presents to the ER accompanied by law enforcement in custody via EMS after being picked up at the court house for arrangement with chief complaint of abdominal pain. Patient reports that this began suddenly. She also endorses to the nurse that she has not had any fentanyl in the last couple of days and she is in withdrawal and is asking for some clonidine. She was recently admitted into the hospital on September 09 and left AMA for cholangitis. Vital signs are stable she is afebrile upon arrival. Related Data Home Medications Medication Instructions Recorded Confirmed gabapentin 800 mg tablet 800 mg PO TID 11/08/21 09/23/22 dexmethylphenidate 30 mg 40 mg PO DAILY AM 11/15/21 09/23/22 capsule,extended release [id number] (Focalin XR) Allergies Allergy/AdvReac Type Severity Reaction Status Date / Time No Known Drug Allergies Allergy Unverified 09/23/22 14:09 General Stated Complaint: Abd Prob PATRICIA: 3 Review of Systems Narrative: History limited due to patient condition, patient very anxious, yelling, Reports no fentanyl use in the last 2 days to staff. Unobtainable due to mental status Cardiovascular Cardiovascular: Denies chest pain and Denies dyspnea Respiratory Respiratory: Denies dyspnea Gastrointestinal Gastrointestinal: Reports abdominal pain, Denies hematochezia, Denies coffee ground emesis and Reports nausea Psychiatric Psychiatric: Reports anxiety, Denies homicidal ideation and Denies suicidal ideation [facility] All Active Problems (Updated 09/23/22 @ 16:15 by Arely Lovett NP) Opioid withdrawal (Acute) Abdominal pain (Acute) state (Acute) Iron deficiency anemia during , antepartum (Acute) Acute cholangitis (Acute) Left against medical advice (Acute) AMA from Center @ <10 hrs Lower extremity edema (Acute) Hepatitis C (Chronic) Methadone dependence (Chronic) Noncompliance with medication regimen (Acute) Cellulitis (Acute) Opioid dependence (Acute) Medical History Abdominal pain Abscess of left index finger Anxiety Arm numbness left Bipolar disorder Chest pain Drug reaction Eloped from emergency department Endocarditis Frequent headaches GERD (gastroesophageal reflux disease) Headache History of intravenous drug abuse History of recurrent UTIs Hx of hemorrhage, currently Iron deficiency anemia Left shoulder pain Nephrolithiasis Obesity Polysubstance abuse Reactive airway disease Surgical History S/P ERCP S/P laparoscopic cholecystectomy S/P mitral valve replacement 4 years ago at [facility] Family History Father Substance use disorder Social History Smoking/Tobacco Use Status: Current every day Tobacco Type: cigarettes Smoking risk assessment performed?: Yes Alcohol Intake: never Drug use: Daily Substance use type: opiates and other Details: patient uses fentanyl- last used 2 days ago Do you feel safe at home: Yes Do you feel safe in your relationship?: Yes Additional Social history: homeless, bouncing around to different houses of friends. History History 5 Para 2 Hx # Term Pregnancies Multiple births Hx # Pregnancies Ectopic pregnancies AB induced Hx Number of Living Children AB spontaneous Exam Narrative Exam Narrative: Constitutional: Alert and oriented x3. Appears stated age. Normal body habitus. Patient is agitated and yawning appears very anxious please call on the call button multiple times since her arrival. Head: Normocephalic, no trauma. Eyes: Pupils PERRL, Red reflex noted, EOM's intact. Eyelids symmetrical without lesions, discharge, or swelling. ENT: Bilateral TM's WNL, External ear normal to inspection, no mastoid TTP, swelling, or erythema, Nasal turbinates WNL, no nasal discharge. Normal dentition, Posterior pharynx WNL, no exudate. Chest: RRR, Normal S1, S2, distal pulses intact. Resp: Lungs clear to auscultation bilaterally, no wheezes, rales, or rhonchi. Abdomen: Soft, non-distended, Normoactive bowel sounds all 4 quads. Does have some tenderness periumbilical. Musculoskeletal: Normal gait, 5/5 strength to all four extremities. Skin: No suspicious rashes or lesions. Capillary refill less than 2 sec. Neurologic: Cranial nerves II-XII intact. Alert and oriented x 3. Motor: No deficits noted. Sensory: Intact bilaterally all 4 extremities. Reflexes: DTR's intact bilaterally.. Hematologic/Lymphatic: No ecchymosis, no lymphadenopathy. Course Vital Signs Vital signs: Vital Signs Temperature 36.8 C 09/23/22 14:02 Pulse 71 09/23/22 14:02 Respiratory Rate 19 09/23/22 14:02 Blood Pressure 128/81 09/23/22 14:02 Pulse Oximetry 99 09/23/22 14:02 Temperature 36.8 C 09/23/22 14:02 Temperature Source Skin 09/23/22 14:02 Pulse 71 09/23/22 14:02 Respiratory Rate 19 09/23/22 14:02 Respiratory Effort 09/23/22 14:09 Blood Pressure 128/81 09/23/22 14:02 Blood Pressure Position Supine 09/23/22 14:02 Pulse Oximetry 99 09/23/22 14:02 Oxygen Delivery Method Room Air 09/23/22 14:02 Oxygen Flow Rate 0 09/23/22 14:02 Pain Level 8 09/23/22 14:02
[2022-09-23] MEDS: hydrOXYzine HCL 25 MG TAB PO (15:02)
[2022-09-23] MEDS: cloNIDine 0.1 MG TAB PO (15:03)
[2022-09-23 15:14] LABS: Abs Immature Grans 0.01 10^3/uL (0.0-0.06); Absolute Basophil Count 0.04 10^3/uL (0.0-0.2); Absolute Eosinophil Count 0.01 10^3/uL (0.0-0.7); Absolute Lymphocyte Count 1.35 10^3/uL (1.2-3.4); Absolute Monocyte Count 0.17 10^3/uL (0.1-0.8); Absolute Neutrophil Count 4.72 10^3/uL (1.2-6.7); Basophils % 0.6; Eosinophils % 0.2; HCT 43.4 % (36.0-46.0); HGB 13.8 g/dL (11.2-15.7); Immature Grans % 0.2; Lymphocytes % 21.4; MCH 26.6 pg (27.0-33.0); MCHC 31.8 % (32.0-36.0); MCV 84 fL (80-95); MPV 10.2 fL (8.0-11.0); Monocytes % 2.7; Neutrophils % 74.9; Platelet Count 436 10^3/uL (130-400); RBC 5.19 10^6/uL (3.93-5.22); RDW 16.6 % (11.7-14.6); RDW-SD 50.7 fL
[2022-09-23 15:29] LABS: ALT 138 U/L (14-59); AST 59 U/L (15-37); Albumin 3.7 g/dL (3.4-5.0); Alkaline Phosphatase 211 U/L (46-116); Anion Gap 2.6 mmol/L (3-11); BUN 12 mg/dL (7-18); Bilirubin, Total 0.9 mg/dL (0.2-1.0); CO2 28.4 mmol/L (21.0-32.0); CREATININE 0.9 mg/dL (0.55-1.02); Calcium 9.6 mg/dL (8.5-10.1); Chloride 103 mmol/L (98-107); Estimated GFR 86.57 (mL/min/1.73m2); Glucose 119 mg/dL (74-106); Magnesium 1.8 mg/dL (1.8-2.4); Potassium 3.7 mmol/L (3.5-5.1); Sodium 134 mmol/L (136-145); Total Protein 8.8 g/dL (6.4-8.2)
[2022-09-23] MEDS: Normal Saline 1,000 ML 1000 ML IV (15:30)
[2022-09-23] MEDS: Ketorolac 15 MG/ML VIAL IVP (15:35)
[2022-09-23 15:46] LABS: Lab Add On Test DONE
[2022-09-23 15:58] VITALS: BP 150/96; PULSE 102; RESP 18; O2SAT 94
[2022-09-23 16:06] VITALS: BP 163/93; PULSE 57; TEMP 35.8; O2SAT 100
[2022-09-23 16:08] LABS: Lipase 73 U/L (73-393)
== END 2022-09-23 16:24 | disposition home or self-care (01) ==
PROVIDERS: Emergency Provider Registered Nurse Emergency; PCP Family Medicine
DX: F11.23 Opioid dependence with withdrawal (principal); R10.9 Unspecified abdominal pain; R10.815 Periumbilic abdominal tenderness; J45.909 Unspecified asthma, uncomplicated; Z87.440 Personal history of urinary (tract) infections
CPT/HCPCS: 36415; 80053; 83690; 96361; 96365; 96375; 99284; 83735; 85025; J1885